=== PATIENT | female | born 1940 | race Caucasian/White ===

== ENCOUNTER → 2021-04-08 10:23 | Outpatient (CLI) | payer MEDICARE, SELFPAY | PROVIDERS: Visit Provider Nurse Practitioner | DX: Z01.812 Encounter for preprocedural laboratory examination (principal); Z11.52 Encounter for screening for COVID-19 | CPT/HCPCS: C9803; U0003; U0005 ==

== ENCOUNTER 2021-04-11 11:21 | Day surgery (SDC) | payer MEDICARE, SELFPAY ==
[2021-04-11] VITALS (7 sets, daily range): BP systolic 148–169; BP diastolic 71–79; PULSE 57–62; RESP 16–20; TEMP 36.5–36.6; O2SAT 98–100; BMI 28.3
== END 2021-04-11 15:20 | disposition home or self-care (01) ==
LOC: OR 11:23
PROVIDERS: PCP Internal Medicine; Visit Provider Ophthalmology
DX: H25.813 Combined forms of age-related cataract, bilateral (principal); H02.831 Dermatochalasis of right upper eyelid; H02.834 Dermatochalasis of left upper eyelid; M19.90 Unspecified osteoarthritis, unspecified site; I25.10 Atherosclerotic heart disease of native coronary artery without angina pectoris; I10 Essential (primary) hypertension; E78.5 Hyperlipidemia, unspecified; Z88.1 Allergy status to other antibiotic agents; Z80.9 Family history of malignant neoplasm, unspecified; Z83.3 Family history of diabetes mellitus; Z82.49 Family history of ischemic heart disease and other diseases of the circulatory system; Z83.518 Family history of other specified eye disorder
CPT/HCPCS: 66984; V2632

== ENCOUNTER → 2021-04-25 11:17 | Outpatient (CLI) | payer MEDICARE, SELFPAY ==
--- NOTE | 2021-04-25 11:25 | XR_ITS ---
FINAL REPORT CLINICAL HISTORY: LUMBAR RADICULOPATHY, lower back pain, pain down left leg FINDINGS: LUMBAR SPINE SERIES Seven views demonstrate no fracture. There is 8 mm of anterolisthesis of L3 on 4. There is 4 mm of anterolisthesis of L4 on 5. Mild and moderate degenerative changes are present. There is vacuum phenomenon at L5-S1. There is no abnormal movement with flexion and extension maneuvers. There are postoperative changes in the abdomen and pelvis. IMPRESSION: Multilevel degenerative change as detailed above. Reviewed, Interpreted and Dictated by Gil Dubon III, MD Transcribed by Lou Nair Authenticated by Gil Dubon III, MD on 04/25/2021 01:46:38 PM [facility][1]
[2021-04-25 12:31] LABS: Basophils % 0.9 % (0.1-2.0); Eosinophils # 0.3 K/mm3 (0.0-0.4); Eosinophils % 7.3 % (0.1-12.0); Hematocrit 36.3 % (37.0-47.0); Hemoglobin 12.1 g/dL (12.2-16.2); Lymphocytes # 1.5 K/mm3 (0.7-4.5); Lymphocytes % 35.4 % (10-50); Mean Corpuscular HGB Conc 33.2 g/dL (31.8-35.4); Mean Corpuscular Hemoglobin 33.9 pg (27.0-31.2); Mean Corpuscular Volume 101.8 fl (81-99); Mean Platelet Volume 10.1 fl (7.4-10.4); Monocytes # 0.5 K/mm3 (0.1-1.0); Monocytes % 11.1 % (1.7-9.3); Neutrophils # 1.9 K/mm3 (1.8-7.8); Neutrophils % 45.3 % (37.0-80.0); Platelet Count 172 K/mm3 (142-424); Red Blood Count 3.57 M/mm3 (4.20-5.40); Red Cell Distribution Width 16.9 % (11.5-17.5); White Blood Count 4.3 K/mm3 (4.8-10.8)
[2021-04-25 13:10] LABS: Alanine Aminotransferase 21 U/L (12-78); Albumin Level 3.8 g/dl (3.5-5.0); Albumin/Globulin Ratio 1.8 (1.1-1.8); Alkaline Phosphatase 43 U/L (38-126); Anion Gap 8.1 mEq/L (5-15); Aspartate Amino Transferase 33 U/L (14-36); Bilirubin,Total 0.5 mg/dl (0.2-1.3); Blood Urea Nitrogen 21 mg/dl (7-17); Calcium 8.9 mg/dl (8.4-10.2); Carbon Dioxide 30 mmol/L (22.0-30.0); Chloride 105 mmol/L (98-107); Estimated Glomerular Filt Rate 60 ml/min (>60); GFR (African American) 73 ML/MIN (>60); Globulin 2.1 g/dL (1.3-3.2); Glucose 79 mg/dl (74-100); Potassium 4.1 mmoL/L (3.5-5.1); Sodium 139 mmol/L (136-145); Total Protein,Serum 5.9 g/dl (6.3-8.2)
[2021-04-25 13:15] LABS: C-Reactive Protein 1.5 mg/L (0-4)
[2021-04-25 13:30] LABS: Erythrocyte Sedimentation Rate 18 mm/hr (0-30)
== END ==
PROVIDERS: PCP Internal Medicine; Visit Provider Nurse Practitioner Family
DX: I73.00 Raynaud's syndrome without gangrene (principal); L40.50 Arthropathic psoriasis, unspecified; M19.049 Primary osteoarthritis, unspecified hand; M54.16 Radiculopathy, lumbar region
CPT/HCPCS: 36415; 72114; 80053; 85025; 85651; 86140

== ENCOUNTER → 2021-05-06 11:42 | Outpatient (CLI) | payer MEDICARE, SELFPAY | PROVIDERS: PCP Internal Medicine; Visit Provider Internal Medicine | DX: Z01.812 Encounter for preprocedural laboratory examination (principal); Z11.52 Encounter for screening for COVID-19 | CPT/HCPCS: C9803; U0003; U0005 ==

== ENCOUNTER 2021-05-09 07:58 | Day surgery (SDC) | payer MEDICARE, SELFPAY ==
[2021-05-03 10:32] VITALS: BMI 28.3
[2021-05-09 08:27] VITALS: BP 173/86; PULSE 65; RESP 18; TEMP 36.5; O2SAT 94
[2021-05-09 09:20] VITALS: BP 186/81; PULSE 61; RESP 16; O2SAT 97
[2021-05-09 09:25] VITALS: BP 193/84; PULSE 58; RESP 16; O2SAT 100
[2021-05-09 09:30] VITALS: BP 196/84; PULSE 58; RESP 16; O2SAT 100
[2021-05-09 09:35] VITALS: BP 140/80; PULSE 64; RESP 16; TEMP 36.2; O2SAT 97
[2021-05-09 09:55] VITALS: BP 140/80; PULSE 64; RESP 16; TEMP 36.2; O2SAT 97
== END 2021-05-09 09:55 | disposition home or self-care (01) ==
LOC: OR 07:59
PROVIDERS: PCP Internal Medicine; Visit Provider Ophthalmology
DX: H25.813 Combined forms of age-related cataract, bilateral (principal); H02.831 Dermatochalasis of right upper eyelid; H02.834 Dermatochalasis of left upper eyelid; M19.90 Unspecified osteoarthritis, unspecified site; I25.10 Atherosclerotic heart disease of native coronary artery without angina pectoris; E78.5 Hyperlipidemia, unspecified; Z88.8 Allergy status to other drugs, medicaments and biological substances
CPT/HCPCS: 66984; V2632; V2788

== ENCOUNTER → 2021-08-14 12:55 | Outpatient (CLI) | payer MEDICARE, SELFPAY ==
[2021-08-14 13:15] LABS: Basophils % 1.2 % (0.1-2.0); Eosinophils # 0.2 K/mm3 (0.0-0.4); Eosinophils % 5.6 % (0.1-12.0); Hematocrit 42.1 % (37.0-47.0); Hemoglobin 12.9 g/dL (12.2-16.2); Lymphocytes # 1.2 K/mm3 (0.7-4.5); Mean Corpuscular HGB Conc 30.8 g/dL (31.8-35.4); Mean Corpuscular Hemoglobin 34.1 pg (27.0-31.2); Mean Corpuscular Volume 110.9 fl (81-99); Mean Platelet Volume 10.5 fl (7.4-10.4); Monocytes # 0.1 K/mm3 (0.1-1.0); Monocytes % 3.8 % (1.7-9.3); Neutrophils # 1.8 K/mm3 (1.8-7.8); Neutrophils % 53.4 % (37.0-80.0); Platelet Count 214 K/mm3 (142-424); Red Cell Distribution Width 15.6 % (11.5-17.5); White Blood Count 3.4 K/mm3 (4.8-10.8)
[2021-08-14 13:41] LABS: Alanine Aminotransferase 36 U/L (12-78); Albumin Level 4.1 g/dl (3.5-5.0); Albumin/Globulin Ratio 1.8 (1.1-1.8); Alkaline Phosphatase 57 U/L (38-126); Anion Gap 10.4 mEq/L (5-15); Aspartate Amino Transferase 63 U/L (14-36); Bilirubin,Total 0.7 mg/dl (0.2-1.3); Blood Urea Nitrogen 15 mg/dl (7-17); Calcium 9.8 mg/dl (8.4-10.2); Carbon Dioxide 29 mmol/L (22.0-30.0); Chloride 105 mmol/L (98-107); Estimated Glomerular Filt Rate 60 ml/min (>60); GFR (African American) 73 ML/MIN (>60); Globulin 2.3 g/dL (1.3-3.2); Glucose 86 mg/dl (74-100); Potassium 4.4 mmoL/L (3.5-5.1); Sodium 140 mmol/L (136-145); Total Protein,Serum 6.4 g/dl (6.3-8.2)
[2021-08-14 13:46] LABS: C-Reactive Protein 2.7 mg/L (0-4)
[2021-08-14 14:22] LABS: Erythrocyte Sedimentation Rate 16 mm/hr (0-30)
== END ==
PROVIDERS: PCP Internal Medicine; Visit Provider Internal Medicine Rheumatology
DX: L40.50 Arthropathic psoriasis, unspecified (principal); I73.00 Raynaud's syndrome without gangrene; M19.049 Primary osteoarthritis, unspecified hand; M25.552 Pain in left hip; M47.816 Spondylosis without myelopathy or radiculopathy, lumbar region
CPT/HCPCS: 36415; 80053; 85025; 85651; 86140

== ENCOUNTER → 2021-11-15 12:51 | Outpatient (CLI) | payer MEDICARE, SELFPAY ==
--- NOTE | 2021-11-15 13:00 | CA_ITS ---
FINAL REPORT TECHNIQUE: Grayscale and color Doppler ultrasound images with graded compression of the deep venous system were obtained from the groin to the calf veins bilaterally. CLINICAL HISTORY: HX DVT,PAIN,LUMP LATERAL LEFT THIGH X SEVERAL MONTHS HAS GOTTEN LARGER IN SIZE(EGG SIZE NOW),TENDER,PT ON ASA FINDINGS: The deep venous system is normal. There is no evidence of DVT. Flow and compressibility are normal. There is a questionable mass in the lateral mid left thigh measuring up to 5 cm with poorly defined margins. IMPRESSION: No evidence of left or right lower extremity DVT. Questionable mass as detailed above. If lesion is persistent clinically, MR follow-up with contrast enhancement could further evaluate. Reviewed, Interpreted and Dictated by Sreekanth Sanchez MD Transcribed by Lou Nair Authenticated and [facility]
[2021-11-15 14:17] LABS: Basophils # 0.1 K/mm3 (0-0.2); Basophils % 0.9 % (0.1-2.0); Eosinophils # 0.3 K/mm3 (0.0-0.4); Eosinophils % 5.9 % (0.1-12.0); Hematocrit 38.6 % (37.0-47.0); Hemoglobin 12.2 g/dL (12.2-16.2); Lymphocytes # 1.4 K/mm3 (0.7-4.5); Lymphocytes % 26.2 % (10-50); Mean Corpuscular HGB Conc 31.7 g/dL (31.8-35.4); Mean Corpuscular Hemoglobin 32.9 pg (27.0-31.2); Mean Platelet Volume 9.6 fl (7.4-10.4); Monocytes # 0.3 K/mm3 (0.1-1.0); Neutrophils # 3.2 K/mm3 (1.8-7.8); Platelet Count 192 K/mm3 (142-424); Red Blood Count 3.71 M/mm3 (4.20-5.40); Red Cell Distribution Width 16.3 % (11.5-17.5); White Blood Count 5.3 K/mm3 (4.8-10.8)
[2021-11-15 14:44] LABS: Erythrocyte Sedimentation Rate 19 mm/hr (0-30)
[2021-11-15 15:06] LABS: Alanine Aminotransferase 29 U/L (12-78); Albumin Level 3.9 g/dl (3.5-5.0); Albumin/Globulin Ratio 1.8 (1.1-1.8); Alkaline Phosphatase 64 U/L (38-126); Aspartate Amino Transferase 41 U/L (14-36); Bilirubin,Total 0.4 mg/dl (0.2-1.3); Blood Urea Nitrogen 16 mg/dl (7-17); Calcium 8.9 mg/dl (8.4-10.2); Carbon Dioxide 30 mmol/L (22.0-30.0); Chloride 102 mmol/L (98-107); Estimated Glomerular Filt Rate 60 ml/min (>60); GFR (African American) 73 ML/MIN (>60); Globulin 2.2 g/dL (1.3-3.2); Glucose 82 mg/dl (74-100); Sodium 139 mmol/L (136-145); Total Protein,Serum 6.1 g/dl (6.3-8.2)
[2021-11-15 15:11] LABS: C-Reactive Protein 3.5 mg/L (0-4)
== END ==
PROVIDERS: PCP Nurse Practitioner Women's Health; Visit Provider Neurological Surgery
DX: R22.42 Localized swelling, mass and lump, left lower limb (principal); Z86.718 Personal history of other venous thrombosis and embolism
CPT/HCPCS: 36415; 80053; 85025; 85651; 86140; 93970

== ENCOUNTER → 2022-01-31 13:24 | Outpatient (CLI) | payer MEDICARE, SELFPAY ==
--- NOTE | 2022-01-31 13:25 | MR_ITS ---
FINAL REPORT CLINICAL HISTORY: L Hip Pain FINDINGS: Multiplanar MR imaging of the left hip was performed without contrast. There is mild degenerative change of both hips. There is no evidence of fracture or dislocation. There is no evidence of avascular necrosis. No bony mass is identified. No labral tear is identified. No significant joint effusion is seen. There is a small partial tear of the distal left gluteus minimus tendon. There are moderate partial tears at the origins of the hamstring tendons bilaterally. The musculature is intact. No soft tissue mass or cyst is identified. IMPRESSION: Small partial tear of the distal left gluteus minimus tendon. Moderate partial tears the origins of the hamstring tendons bilaterally. Reviewed, Interpreted and Dictated by Gil Dubon III, MD Transcribed by Mela Barakat Authenticated and . [facility]
== END ==
PROVIDERS: PCP Family Medicine; Visit Provider Family Medicine
DX: M25.552 Pain in left hip (principal)
CPT/HCPCS: 73721

== ENCOUNTER → 2022-03-29 13:28 | Outpatient (CLI) | payer MEDICARE, SELFPAY ==
[2022-03-29 15:33] LABS: Alanine Aminotransferase 17 U/L (12-78); Albumin/Globulin Ratio 1.7 (1.1-1.8); Alkaline Phosphatase 54 U/L (38-126); Anion Gap 10.4 mEq/L (5-15); Aspartate Amino Transferase 30 U/L (14-36); Bilirubin,Total 0.4 mg/dl (0.2-1.3); Blood Urea Nitrogen 20 mg/dl (7-17); Calcium 8.3 mg/dl (8.4-10.2); Carbon Dioxide 27 mmol/L (22.0-30.0); Chloride 108 mmol/L (98-107); Estimated Glomerular Filt Rate 48 ml/min (>60); GFR (African American) 58 ML/MIN (>60); Globulin 2.4 g/dL (1.3-3.2); Glucose 85 mg/dl (74-100); Potassium 4.4 mmoL/L (3.5-5.1); Sodium 141 mmol/L (136-145); Total Protein,Serum 6.4 g/dl (6.3-8.2)
== END ==
PROVIDERS: PCP Family Medicine; Visit Provider Internal Medicine Rheumatology
DX: L40.50 Arthropathic psoriasis, unspecified (principal); M19.049 Primary osteoarthritis, unspecified hand; E66.9 Obesity, unspecified; Z68.33 Body mass index [BMI] 33.0-33.9, adult; Z79.899 Other long term (current) drug therapy
CPT/HCPCS: 36415; 80053

== ENCOUNTER → 2022-11-22 12:28 | Outpatient (CLI) | payer MEDICARE, SELFPAY ==
[2022-11-22 13:31] LABS: Basophils % 0.6 % (0.1-2.0); Eosinophils # 0.5 K/mm3 (0.0-0.4); Eosinophils % 11.3 % (0.1-12.0); Hematocrit 34.7 % (37.0-47.0); Hemoglobin 11.2 g/dL (12.2-16.2); Lymphocytes # 1.2 K/mm3 (0.7-4.5); Lymphocytes % 29.9 % (10-50); Mean Corpuscular HGB Conc 32.4 g/dL (31.8-35.4); Mean Corpuscular Hemoglobin 32.8 pg (27.0-31.2); Mean Corpuscular Volume 101.3 fl (81-99); Mean Platelet Volume 10.3 fl (7.4-10.4); Monocytes # 0.5 K/mm3 (0.1-1.0); Monocytes % 13.1 % (1.7-9.3); Neutrophils # 1.9 K/mm3 (1.8-7.8); Platelet Count 192 K/mm3 (142-424); Red Blood Count 3.43 M/mm3 (4.20-5.40); Red Cell Distribution Width 17.8 % (11.5-17.5); White Blood Count 4.1 K/mm3 (4.8-10.8)
[2022-11-22 14:40] LABS: Erythrocyte Sedimentation Rate 59 mm/hr (0-30)
[2022-11-22 18:52] LABS: Alanine Aminotransferase 20 U/L (12-78); Albumin Level 3.7 g/dl (3.5-5.0); Albumin/Globulin Ratio 1.5 (1.1-1.8); Alkaline Phosphatase 48 U/L (38-126); Anion Gap 11.4 mEq/L (5-15); Aspartate Amino Transferase 34 U/L (14-36); Bilirubin,Total 0.4 mg/dl (0.2-1.3); Blood Urea Nitrogen 17 mg/dl (7-17); Carbon Dioxide 27 mmol/L (22.0-30.0); Chloride 109 mmol/L (98-107); Estimated Glomerular Filt Rate 60 ml/min (>60); GFR (African American) 72 ML/MIN (>60); Globulin 2.5 g/dL (1.3-3.2); Glucose 77 mg/dl (74-100); Potassium 4.4 mmoL/L (3.5-5.1); Sodium 143 mmol/L (136-145); Total Protein,Serum 6.2 g/dl (6.3-8.2)
[2022-11-24 09:57] LABS: C-Reactive Protein 11.3 mg/L (0-4)
== END ==
PROVIDERS: Nurse Practitioner Family
DX: L40.50 Arthropathic psoriasis, unspecified (principal); Z79.899 Other long term (current) drug therapy
CPT/HCPCS: 36415; 80053; 85025; 85651; 86140

== ENCOUNTER 2023-03-18 12:48 | Outpatient (CLI) | payer MEDICARE, SELFPAY | END 2023-03-18 23:59 | LOC: LAB.DROPOF 12:48 | PROVIDERS: PCP Nurse Practitioner Family; Visit Provider Nurse Practitioner Family | DX: J02.9 Acute pharyngitis, unspecified; D72.819 Decreased white blood cell count, unspecified | CPT/HCPCS: 87070 ==

== ENCOUNTER 2023-03-19 13:16 | Outpatient (POV) | payer MEDICARE, SELFPAY | END 2023-03-19 23:59 | disposition home or self-care (01) | LOC: SC 13:16 | PROVIDERS: PCP Nurse Practitioner Family; Visit Provider Dermatology | DX: Z00.00 Encounter for general adult medical examination without abnormal findings (principal) ==

== ENCOUNTER 2023-03-19 13:53 | Outpatient (CLI) | payer MEDICARE, SELFPAY ==
[2023-03-19 14:54] LABS: Chloride 106 mmol/L (98-107); Potassium 4.6 mmoL/L (3.5-5.1); Sodium 139 mmol/L (136-145)
[2023-03-19 14:56] LABS: Alanine Aminotransferase 111 U/L (12-78); Aspartate Amino Transferase 113 U/L (14-36); Blood Urea Nitrogen 29 mg/dl (7-17); Estimated Glomerular Filt Rate 47 ml/min (>60); GFR (African American) 57 ML/MIN (>60)
[2023-03-19 14:57] LABS: Albumin Level 4.2 g/dl (3.5-5.0); Albumin/Globulin Ratio 1.7 (1.1-1.8); Alkaline Phosphatase 61 U/L (38-126); Anion Gap 12.6 mEq/L (5-15); Bilirubin,Total 0.7 mg/dl (0.2-1.3); Calcium 9.1 mg/dl (8.4-10.2); Carbon Dioxide 25 mmol/L (22.0-30.0); Globulin 2.5 g/dL (1.3-3.2); Glucose 91 mg/dl (74-100); Total Protein,Serum 6.7 g/dl (6.3-8.2)
[2023-03-19 15:28] LABS: Thyroid Stimulating Hormone 1.05 uIU/mL (0.465-4.68)
[2023-03-19 15:33] LABS: Ferritin 189 ng/ml (11.1-264)
[2023-03-21 13:58] LABS: Peripheral Smear Review Scanned Result
== END 2023-03-19 23:59 ==
LOC: LAB 13:55
PROVIDERS: PCP Nurse Practitioner Family; Visit Provider Nurse Practitioner Family
DX: E78.5 Hyperlipidemia, unspecified (principal); D72.819 Decreased white blood cell count, unspecified; L98.9 Disorder of the skin and subcutaneous tissue, unspecified; D50.9 Iron deficiency anemia, unspecified; I10 Essential (primary) hypertension
CPT/HCPCS: 36415; 80053; 82728; 84443

== ENCOUNTER 2023-04-02 16:13 | Outpatient (CLI) | payer MEDICARE, SELFPAY ==
[2023-04-02 17:42] LABS: Alanine Aminotransferase 115 U/L (12-78); Albumin Level 3.9 g/dl (3.5-5.0); Albumin/Globulin Ratio 1.6 (1.1-1.8); Alkaline Phosphatase 53 U/L (38-126); Anion Gap 14.2 mEq/L (5-15); Aspartate Amino Transferase 95 U/L (14-36); Bilirubin,Total 0.5 mg/dl (0.2-1.3); Blood Urea Nitrogen 45 mg/dl (7-17); Calcium 9.9 mg/dl (8.4-10.2); Carbon Dioxide 20 mmol/L (22.0-30.0); Chloride 109 mmol/L (98-107); Estimated Glomerular Filt Rate 36 ml/min (>60); GFR (African American) 43 ML/MIN (>60); Globulin 2.4 g/dL (1.3-3.2); Glucose 115 mg/dl (74-100); Potassium 4.2 mmoL/L (3.5-5.1); Sodium 139 mmol/L (136-145); Total Protein,Serum 6.3 g/dl (6.3-8.2)
[2023-04-02 17:57] LABS: Troponin I < 0.01 ng/ml (0.00-0.034)
[2023-04-02 19:13] LABS: Ferritin 151 ng/ml (11.1-264)
[2023-04-02 20:17] LABS: Vitamin B12 850 pg/mL (239-931)
[2023-04-04 16:23] LABS: Peripheral Smear Review Scanned Result
== END 2023-04-02 23:59 ==
PROVIDERS: PCP Nurse Practitioner Family; Visit Provider Nurse Practitioner Family
DX: R74.8 Abnormal levels of other serum enzymes (principal); D50.9 Iron deficiency anemia, unspecified; D64.9 Anemia, unspecified; D72.819 Decreased white blood cell count, unspecified; R06.02 Shortness of breath; Z95.1 Presence of aortocoronary bypass graft
CPT/HCPCS: 36415; 80053; 82607; 82728; 84484

== ENCOUNTER 2023-04-14 13:17 | Emergency (ER) | payer MEDICARE, SELFPAY ==
[2023-04-14 13:17] VITALS: BP 187/88; PULSE 89; RESP 22; TEMP 36.7; O2SAT 97; BMI 26.5
[2023-04-14 13:30] VITALS: BP 187/88; PULSE 95; RESP 16; O2SAT 97
[2023-04-14] MEDS: OXYMETAZOLINE NASAL SPRAY 0.05% 15ML 15 ML NS (13:40)
[2023-04-14 14:00] VITALS: BP 168/95; PULSE 88; RESP 16; O2SAT 98
--- NOTE | 2023-04-14 14:13 | PC.NURSE ---
Dr. Sr at bedside
[2023-04-14 14:30] VITALS: BP 184/94; PULSE 84; RESP 16; O2SAT 97
--- NOTE | 2023-04-14 14:34 | PC.NURSE ---
DR PAN AT BEDSIDE
[2023-04-14] MEDS: TRANEXAMIC ACID 1,000 MG/10 ML VIAL 10 MG TP (14:45)
[2023-04-14 15:00] VITALS: BP 193/86; PULSE 85; RESP 16; O2SAT 98
--- NOTE | 2023-04-14 15:07 | ED_ITS ---
Discharge Plan Disposition Patient Disposition: Home, Self-Care Condition: Good Prescriptions Prescriptions: No Action methotrexate sodium 2.5 mg tablet 2.5 mg PO WEEKLY Rx Instructions: Pt to take 8 tablets at one time weekly. trazodone 100 mg tablet 100 mg PO DAILY PRN (Reason: insomnia) Qty: 30 2RF cetirizine [Allergy Relief (cetirizine)] 10 mg tablet 10 mg PO DAILY PRN folic acid 1 mg tablet 1 mg PO .qod metoprolol tartrate 50 mg tablet 25 mg PO BID metronidazole 0.75 % cream topical DAILY Pro Fe 180 mg iron capsule 180 mg PO DAILY Qty: 30 0RF pregabalin 50 mg capsule 50 mg PO DAILY triamcinolone acetonide 0.5 % cream topical Vyndamax 61 mg capsule 61 mg PO DAILY mupirocin 2 % ointment 1 applic topical BID Qty: 15 0RF clopidogrel 75 mg tablet 75 mg PO DAILY fluorometholone 0.1 % drops,suspension 1 drp ophthalmic (eye) Q6H Systane Hydration (PF) 0.4-0.3 % dropperette 1 drp ophthalmic (eye) DAILY PRN pantoprazole 40 mg tablet,delayed release (DR/EC) 40 mg PO DAILY Qty: 90 3RF diltiazem HCl 180 mg capsule,extended release 24hr 180 mg PO DAILY 90 Days Qty: 90 3RF atorvastatin 40 mg tablet 40 mg PO HS Qty: 90 3RF nystatin 100,000 unit/mL suspension 500,000 unit buccal Q6H 14 Days Qty: 280 0RF Rx Instructions: administer 1/2 of dose in each side of the mouth acyclovir 400 mg tablet 400 mg PO TID 10 Days Qty: 30 0RF multivitamin 1 EACH tablet 1 each PO DAILY diclofenac sodium 100 GM gel 100 g topical DAILY calcium carbonate 600 MG tablet 600 mg PO DAILY docusate sodium 100 MG capsule 100 mg PO DAILY aspirin 81 MG tablet,chewable 81 mg PO DAILY cholecalciferol (vitamin D3) 1,000 UNIT capsule 1,000 unit PO DAILY magnesium oxide 500 MG capsule 500 mg PO DAILY denosumab 60 MG/ML syringe 60 mg SQ DAILY Referrals Follow up/Referrals: Geeta Esteban APRN [Primary Care Provider] - See instructions Gino Upton MD [Physician] - See instructions Activity Restrictions/Add. Instructions Additional Instructions/Restrictions: Follow-up with ENT to have the nasal balloon removed by Saturday. Return for any new or worsening symptoms. Clinical Impressions Clinical Impression: Acute anterior epistaxis Instructions Patient Instructions: DI for Nosebleed Discharge ED Provider: Marisel Sr General Adult HPI General Chief complaint: Epistaxis Stated complaint: bloody nose X3 hours Time Seen by Provider: 04/14/23 13:39 Mode of Arrival: Wheelchair Source of Information: Patient, Relative and Medical Record Limitations: No Limitations Description of Symptoms (Recalled from ER Triage Doc. by RN): Pt c/o nose bleed intermittently for 3 hours. She takes ASA 81mg & Plavix 75mg daily, last dose was yesterday (04/13). She has been holding pressure to her nose for a long time but it continues to ooze. States she has a hx of nasal polys. Denies any dizziness. History of Present Illness HPI narrative: Patient is a 82-year-old female with past medical history anemia, hypertension, hyperlipidemia, GERD, CABG on Plavix and aspirin presenting with epistaxis. Patient states that for the past 3 hours she has had intermittent epistaxis from her left nostril that they have intermittently been able to control but given persistent epistaxis refractory to home management they present for further evaluation. She last took Plavix and aspirin last night. She does have a nasal polyp in that left nostril for which she follows with [facility]. Denies other complaints at this time. Related Data Home Medications Medication Instructions Recorded Confirmed aspirin 81 mg chewable tablet 81 mg PO DAILY supplemnt 04/11/21 04/02/23 calcium carbonate 600 mg calcium 600 mg PO DAILY Supplement 04/11/21 04/02/23 (1,500 mg) tablet cholecalciferol (vitamin D3) 25 1,000 unit PO DAILY Supplement 04/11/21 04/02/23 mcg (1,000 unit) capsule denosumab 60 mg/mL subcutaneous 60 mg SQ DAILY . 04/11/21 04/02/23 syringe diclofenac sodium 3 % topical gel 100 g topical DAILY Pain 04/11/21 04/02/23 docusate sodium 100 mg capsule 100 mg PO DAILY stool 04/11/21 04/02/23 magnesium oxide 500 mg capsule 500 mg PO DAILY Supplement 04/11/21 04/02/23 multivitamin 1 each PO DAILY Supplement 04/11/21 04/02/23 methotrexate sodium 2.5 mg tablet 2.5 mg PO WEEKLY 01/22/22 04/02/23 cetirizine 10 mg tablet (Allergy 10 mg PO DAILY PRN 07/19/22 04/02/23 Relief (cetirizine)) pregabalin 50 mg capsule 50 mg PO DAILY 01/21/23 04/02/23 tafamidis 61 mg capsule (Vyndamax) 61 mg PO DAILY 01/21/23 04/02/23 triamcinolone acetonide 0.5 % applic topical 01/21/23 04/02/23 topical cream clopidogrel 75 mg tablet 75 mg PO DAILY 03/18/23 04/02/23 fluorometholone 0.1 % eye 1 drp ophthalmic (eye) Q6H 03/18/23 04/02/23 drops,suspension peg 400-propylene glycol (PF) 0.4 1 drp ophthalmic (eye) DAILY PRN 03/18/23 04/02/23 %-0.3 % eye drops in a dropperette (Systane Hydration (PF)) folic acid 1 mg tablet 1 mg PO .qod Supplement 04/02/23 04/02/23 metoprolol tartrate 50 mg tablet 25 mg PO BID 04/02/23 04/02/23 metronidazole 0.75 % topical cream applic topical DAILY 04/02/23 04/02/23 Previous Rx's Medication Instructions Recorded trazodone 100 mg tablet 100 mg PO DAILY PRN insomnia #30 01/22/22 tabs atorvastatin 40 mg tablet 40 mg PO HS Cholesterol #90 tabs 08/30/22 diltiazem HCl 180 mg 180 mg PO DAILY 90 days #90 caps 08/30/22 capsule,extended release 24 hr pantoprazole 40 mg tablet,delayed 40 mg PO DAILY GERD #90 tabs 08/30/22 release mupirocin 2 % topical ointment 1 applic topical BID #15 grams 01/21/23 acyclovir 400 mg tablet 400 mg PO TID 10 days #30 tabs 04/05/23 nystatin 100,000 unit/mL oral 500,000 unit (5 mL) buccal Q6H 14 04/05/23 suspension days #280 mL polysaccharide iron complex 180 mg 180 mg PO DAILY #30 caps 04/07/23 iron capsule (Pro Fe) Allergies Allergy/AdvReac Type Severity Reaction Status Date / Time loratadine [From Claritin] Allergy Intermediate Rash Verified 04/14/23 13:38 Sulfa (Sulfonamide Allergy Intermediate rash/swelli Verified 04/14/23 13:38 Antibiotics) ng sulfamethoxazole Allergy Intermediate rash/swelli Verified 04/14/23 13:38 [From Bactrim] ng trimethoprim [From Bactrim] Allergy Intermediate rash/swelli Verified 04/14/23 13:38 ng nitrofurantoin AdvReac Hives Verified 04/02/23 15:24 [From Macrobid] [facility] Disclaimer: The information contained in this section may have been updated after the patient was seen, as this information can be updated by other users. Medical History Amyloidosis Degenerative disc disease GERD (gastroesophageal reflux disease) HLD (hyperlipidemia) HTN (hypertension), benign Neuropathy Osteoporosis Surgical History H/O total hysterectomy History of cholecystectomy History of discectomy 2022 History of open heart surgery 2009 Family History Other Cancer Coronary artery disease Heart attack Hypertension Social History Smoking Status: Never smoker alcohol intake: never current occupational status: retired Travel in the last 8 weeks: None housing: house caffeine: Yes ROS Obtained: Yes Systems reviewed as appropriate & no additional complaints except as documented Physical Exam General General appearance: alert and in no apparent distress Head Head exam: atraumatic and normocephalic ENT ENT exam: Present other (Bleeding from left nostril, not appreciated from right nostril, does have polyp visible in the anterior nose of the left nostril, some bleeding down posterior oropharynx) Neck Neck exam: Present normal inspection Chest Chest inspection: Present normal inspection and symmetric chest wall rise Respiratory Respiratory exam: Present normal lung sounds bilaterally; Absent respiratory distress Cardiovascular Cardiovascular exam: Present regular rate and normal rhythm Neurological Exam Neurological exam: Present alert and oriented X3 Skin Skin exam: Present warm and dry Medical Decision Making Medical Records Medical records reviewed: Yes I reviewed the patient's medical records. Davion Inquiry Pt receiving controlled substance: No Vital Signs: 04/14/23 13:17 Temperature 98.1 F Temperature Source Oral Pulse Rate [Right] 89 Respiratory Rate 22 Blood Pressure [Right Arm] 187/88 H Blood Pressure Mean [Right Arm] 121 Blood Pressure Source [Right Arm] Automatic Cuff 02 Sat by Pulse Oximetry 97 Oxygen Delivery Method Room Air Orders (Tests/Meds): ED MEDICATIONS Discontinued Medications Generic Name Dose Route Start Last Admin Trade Name Mila PRN Reason Stop Dose Admin Tranexamic Acid 5 mg/ Sodium 250.05 mls @ 500.1 mls/hr 04/14/23 14:38 04/14/23 14:42 Chloride IV 04/14/23 14:39 Not Given ONCE ONE Oxymetazoline HCl 15 ml 04/14/23 13:39 04/14/23 13:40 Oxymetazoline Nasal [place] 0.05% 15ml NS 04/14/23 13:40 15 ml ONCE ONE Administration Tranexamic Acid 10 mg 04/14/23 14:45 Tranexamic Acid 1,000 Mg/10 Ml Vial TP 04/14/23 14:46 ONCE ONE Medical Decision Narrative: Patient is a 82-year-old female with past medical history hyperlipidemia, hypertension, CAD, CABG on Plavix and aspirin presenting with epistaxis from the left nare over the past 3 hours intermittent. No difficulty breathing or managing secretions but does have visible bleeding from the left nostril. Did attempt to provide Afrin and clamp for 20 minutes and on reevaluation patient had continued bleeding. Given this Rhino Rocket placed as per procedural documentation after it was soaked in TXA and Afrin. There was good resolution of patient bleeding and no visualized bleeding in the posterior oropharynx. Discussed follow-up plan with patient and daughter at bedside and she does already follow with an ENT provider at [facility], will try to follow-up with this provider but if unable to will also provide need for ENT follow-up with Dr. Upton. Will follow-up Saturday to have Rhino Rocket removed. Discharged in stable condition. Procedures Epistaxis Control Nostril: left Nose Prepped With: oxymetazoline and other Direct Inspection: yes Clots Removed by: manually Cautery Used: none Device Inserted: hemostatic balloon Patient Tolerated Procedure: well Critical Care Critical Care Time Critical Care Time: No
--- NOTE | 2023-04-14 15:12 | PC.NURSE ---
Dr. Sr at bedside
[2023-04-14 15:37] VITALS: BP 188/86; PULSE 81; RESP 20; TEMP 36.7; O2SAT 98
== END 2023-04-14 15:35 | disposition home or self-care (01) ==
PROVIDERS: Emergency Provider Emergency Medicine; PCP Nurse Practitioner Family
DX: R04.0 Epistaxis (principal); D64.9 Anemia, unspecified; I10 Essential (primary) hypertension; E78.5 Hyperlipidemia, unspecified; K21.9 Gastro-esophageal reflux disease without esophagitis; G62.9 Polyneuropathy, unspecified; Z79.02 Long term (current) use of antithrombotics/antiplatelets; Z79.82 Long term (current) use of aspirin
CPT/HCPCS: 30901; 99283

== ENCOUNTER 2023-04-16 13:44 | Outpatient (CLI) | payer MEDICARE, SELFPAY ==
[2023-04-16 14:25] LABS: Alanine Aminotransferase 162 U/L (12-78); Albumin Level 3.6 g/dl (3.5-5.0); Albumin/Globulin Ratio 1.6 (1.1-1.8); Alkaline Phosphatase 59 U/L (38-126); Anion Gap 9.1 mEq/L (5-15); Aspartate Amino Transferase 146 U/L (14-36); Bilirubin,Total 0.5 mg/dl (0.2-1.3); Blood Urea Nitrogen 21 mg/dl (7-17); Calcium 7.8 mg/dl (8.4-10.2); Carbon Dioxide 23 mmol/L (22.0-30.0); Chloride 114 mmol/L (98-107); Estimated Glomerular Filt Rate 53 ml/min (>60); GFR (African American) 64 ML/MIN (>60); Globulin 2.3 g/dL (1.3-3.2); Glucose 89 mg/dl (74-100); Potassium 4.1 mmoL/L (3.5-5.1); Sodium 142 mmol/L (136-145); Total Protein,Serum 5.9 g/dl (6.3-8.2)
== END 2023-04-16 23:59 ==
PROVIDERS: PCP Nurse Practitioner Family; Visit Provider Nurse Practitioner Family
DX: R74.8 Abnormal levels of other serum enzymes (principal)
CPT/HCPCS: 36415; 80053

== ENCOUNTER 2023-04-22 16:07 | Outpatient (CLI) | payer MEDICARE, SELFPAY ==
--- NOTE | 2023-04-22 16:11 | XR_ITS ---
PROCEDURE INFORMATION: Exam: XR Left Hip Exam date and time: 04/22/2023 4:30 PM Age: 82 years old Clinical indication: Hip pain; Left hip; Additional info: Left hip pain TECHNIQUE: Imaging protocol: Radiologic exam of the left hip. Views: 2 or 3 views hip with pelvis when performed. COMPARISON: MR HIP LT WO CON 01/31/2022 2:14 PM FINDINGS: Tubes, catheters and devices: Surgical clips overlie the pelvis. Bones/joints: Osteopenia. No evidence of acute fracture or dislocation. Mild degenerative changes of both hips. Posterior spinal fusion of the lower lumbar spine. Soft tissues: Unremarkable. Vasculature: Iliofemoral atherosclerotic calcifications. IMPRESSION: No acute osseous abnormality.
--- NOTE | 2023-04-22 16:28 | XR_ITS ---
PROCEDURE INFORMATION: Exam: XR Left Knee Exam date and time: 04/22/2023 4:30 PM Age: 82 years old Clinical indication: Pain; Knee; Left; Additional info: Left knee pain TECHNIQUE: Imaging protocol: Radiologic exam of the left knee. Views: 3 views. COMPARISON: No prior relevant images. FINDINGS: Bones/joints: Osteopenia. No acute fracture or dislocation. Mild degenerative changes. No joint effusion. Soft tissues: Unremarkable. Vasculature: Atherosclerotic calcifications. IMPRESSION: No acute osseous abnormality.
== END 2023-04-22 23:59 ==
PROVIDERS: PCP Nurse Practitioner Family; Visit Provider Nurse Practitioner Family
DX: M25.562 Pain in left knee (principal); M25.552 Pain in left hip
CPT/HCPCS: 73502; 73562

== ENCOUNTER 2023-05-10 15:01 | Outpatient (CLI) | payer MEDICARE, SELFPAY ==
[2023-05-10 15:55] LABS: INR 1.01 (0.9-1.1); Prothrombin Time 10.9 seconds (10.1-12.5)
[2023-05-10 16:04] LABS: Chloride 109 mmol/L (98-107); Potassium 4.1 mmoL/L (3.5-5.1); Sodium 141 mmol/L (136-145)
[2023-05-10 16:07] LABS: Alanine Aminotransferase 40 U/L (12-78); Albumin Level 4.1 g/dl (3.5-5.0); Albumin/Globulin Ratio 1.9 (1.1-1.8); Alkaline Phosphatase 57 U/L (38-126); Anion Gap 13.1 mEq/L (5-15); Aspartate Amino Transferase 51 U/L (14-36); Bilirubin,Total 0.6 mg/dl (0.2-1.3); Blood Urea Nitrogen 28 mg/dl (7-17); Carbon Dioxide 23 mmol/L (22.0-30.0); Estimated Glomerular Filt Rate 53 ml/min (>60); GFR (African American) 64 ML/MIN (>60); Globulin 2.2 g/dL (1.3-3.2); Total Protein,Serum 6.3 g/dl (6.3-8.2)
[2023-05-10 16:08] LABS: Calcium 9.5 mg/dl (8.4-10.2); Glucose 89 mg/dl (74-100)
[2023-05-11 06:12] LABS: HBsAg Screen Negative (Negative); HCV Ab Non Reactive (Non Reactive); Hep A Ab, IGM Negative (Negative); Hep B Core Ab, IgM Negative (Negative)
== END 2023-05-10 23:59 ==
PROVIDERS: PCP Nurse Practitioner Family; Visit Provider Nurse Practitioner
DX: R53.83 Other fatigue (principal); R74.8 Abnormal levels of other serum enzymes; D64.9 Anemia, unspecified; E85.9 Amyloidosis, unspecified
CPT/HCPCS: 36415; 80053; 80074; 85610

== ENCOUNTER 2023-05-17 07:48 | Outpatient (CLI) | payer MEDICARE, SELFPAY ==
--- NOTE | 2023-05-17 07:48 | US_ITS ---
FINAL REPORT TECHNIQUE: Ultrasound images of the abdomen was obtained. CLINICAL HISTORY: Elevated LFTs, eval liver and spleen morphology COMPARISON: None FINDINGS: The liver demonstrates a complex septated cyst in the left lobe measuring 16 mm. The gallbladder is not visualized, presumed surgically absent. The common duct is normal. The right kidney measures 10 cm in length and shows an exophytic benign cyst in the upper pole measuring 62 mm. There is no hydronephrosis. The left kidney is poorly visualized. The spleen is normal in size with extensive calcified granulomas. The aorta is normal caliber. The vena cava is unremarkable. IMPRESSION: Hepatic and right renal cysts, no evidence of chronic liver disease or portal hypertension. Reviewed, Interpreted and Dictated by Sreekanth Sanchez MD Transcribed by THIAGO Blake Authenticated and [facility]
[2023-05-17 09:32] LABS: Basophils % 0.5 % (0.1-2.0); Eosinophils # 0.6 K/mm3 (0.0-0.4); Eosinophils % 13.9 % (0.1-12.0); Hematocrit 32.7 % (37.0-47.0); Hemoglobin 10.6 g/dL (12.2-16.2); Lymphocytes # 1.1 K/mm3 (0.7-4.5); Lymphocytes % 26.9 % (10-50); Mean Corpuscular HGB Conc 32.4 g/dL (31.8-35.4); Mean Corpuscular Hemoglobin 36.3 pg (27.0-31.2); Mean Corpuscular Volume 111.9 fl (81-99); Mean Platelet Volume 10.1 fl (7.4-10.4); Monocytes # 0.2 K/mm3 (0.1-1.0); Monocytes % 4.4 % (1.7-9.3); Neutrophils # 2.3 K/mm3 (1.8-7.8); Neutrophils % 54.3 % (37.0-80.0); Platelet Count 80 K/mm3 (142-424); Red Blood Count 2.92 M/mm3 (4.20-5.40); Red Cell Distribution Width 19.1 % (11.5-17.5); White Blood Count 4.2 K/mm3 (4.8-10.8)
[2023-05-17 09:47] LABS: Chloride 113 mmol/L (98-107); Potassium 4.2 mmoL/L (3.5-5.1); Sodium 142 mmol/L (136-145)
[2023-05-17 09:50] LABS: Alanine Aminotransferase 40 U/L (12-78); Albumin Level 3.7 g/dl (3.5-5.0); Albumin/Globulin Ratio 1.7 (1.1-1.8); Alkaline Phosphatase 60 U/L (38-126); Anion Gap 8.2 mEq/L (5-15); Aspartate Amino Transferase 50 U/L (14-36); Bilirubin,Total 0.5 mg/dl (0.2-1.3); Blood Urea Nitrogen 24 mg/dl (7-17); Carbon Dioxide 25 mmol/L (22.0-30.0); Estimated Glomerular Filt Rate 60 ml/min (>60); GFR (African American) 72 ML/MIN (>60); Globulin 2.2 g/dL (1.3-3.2); Total Protein,Serum 5.9 g/dl (6.3-8.2)
[2023-05-17 09:51] LABS: Calcium 8.7 mg/dl (8.4-10.2); Glucose 88 mg/dl (74-100)
[2023-05-17 09:56] LABS: C-Reactive Protein 2.8 mg/L (0-4)
[2023-05-17 10:10] LABS: Erythrocyte Sedimentation Rate 21 mm/hr (0-30)
[2023-05-23 11:33] LABS: Fibrosis Score 0.34; Fibrosis Stage F1-F2
[2023-05-23 11:34] LABS: Alpha 2-Macroglobulins, Qn 222; NASH Grade N3; NASH Score 0.76; Steatosis Grade S1
[2023-05-23 11:35] LABS: Apolipoprotein A-1 119; Bilirubin, Total 0.2; Haptoglobin 71
[2023-05-23 11:36] LABS: ALT (SGPT) P5P 39; AST (SGOT) P5P 41; Cholesterol, Total 107; GGT 17; Triglycerides 93
[2023-05-23 11:37] LABS: Glucose 87
== END 2023-05-17 23:59 ==
PROVIDERS: Nurse Practitioner Family; PCP Nurse Practitioner Family; Visit Provider Nurse Practitioner
DX: D64.9 Anemia, unspecified (principal); R74.8 Abnormal levels of other serum enzymes; E85.9 Amyloidosis, unspecified; L40.50 Arthropathic psoriasis, unspecified; Z51.81 Encounter for therapeutic drug level monitoring; Z79.899 Other long term (current) drug therapy
CPT/HCPCS: 36415; 76700; 80053; 85025; 85651; 86140

== ENCOUNTER 2023-09-13 16:39 | Outpatient (CLI) | payer MEDICARE, SELFPAY ==
[2023-09-13 17:37] LABS: Alanine Aminotransferase 28 U/L (12-78); Albumin Level 3.6 g/dl (3.5-5.0); Albumin/Globulin Ratio 1.5 (1.1-1.8); Alkaline Phosphatase 46 U/L (38-126); Aspartate Amino Transferase 55 U/L (14-36); Bilirubin,Total 0.6 mg/dl (0.2-1.3); Blood Urea Nitrogen 21 mg/dl (7-17); Calcium 9.5 mg/dl (8.4-10.2); Carbon Dioxide 26 mmol/L (22.0-30.0); Chloride 108 mmol/L (98-107); Estimated Glomerular Filt Rate 60 ml/min (>60); GFR (African American) 72 ML/MIN (>60); Globulin 2.4 g/dL (1.3-3.2); Glucose 87 mg/dl (74-100); Sodium 139 mmol/L (136-145)
[2023-09-13 18:08] LABS: 25-OH Vitamin D, Total 120 ng/mL (30-100)
== END 2023-09-13 23:59 | disposition home or self-care (01) ==
LOC: LAB 16:43
PROVIDERS: PCP Nurse Practitioner Family; Visit Provider Internal Medicine Rheumatology
DX: M81.0 Age-related osteoporosis without current pathological fracture (principal); E55.9 Vitamin D deficiency, unspecified
CPT/HCPCS: 36415; 80053; 82306

== ENCOUNTER 2023-10-16 14:20 | Outpatient (CLI) | payer MEDICARE, SELFPAY ==
--- NOTE | 2023-10-16 14:23 | XR_ITS ---
FINAL REPORT TECHNIQUE: Chest PA & Lateral CLINICAL HISTORY: dyspnea FINDINGS: 2 views of the chest were performed. The heart size is mildly enlarged. Sternal wires are present. There is no acute cardiopulmonary process. There are no pleural effusions. There is no pneumothorax. The bony thorax appears intact. IMPRESSION: No acute cardiopulmonary process. Reviewed, Interpreted and Dictated by Carlos Alberto Hu MD Transcribed by Puja Holder Authenticated and [facility]
[2023-10-16 18:32] LABS: Adenovirus,PCR Not Detected (NotDetected); Bordetella Pertussis Not Detected (NotDetected); Chlamydophila Pneumoniae, PCR Not Detected (NotDetected); Coronavirus 19, PCR Not Detected (NotDetected); Coronavirus 229E Not Detected (NotDetected); Coronavirus NL63 Not Detected (NotDetected); Coronavirus OC43 Not Detected (NotDetected); Coronovirus HKU1,PCR Not Detected (NotDetected); Human Metapneumovirus Not Detected (NotDetected); Influenza A, PCR Not Detected (NotDetected); Influenza AH1, 2009 Not Detected (NotDetected); Influenza AH1, PCR Not Detected (NotDetected); Influenza AH3,PCR Not Detected (NotDetected); Influenza B, PCR Not Detected (NotDetected); Mycoplasma Pneumoniae, PCR Not Detected (NotDetected); Parainfluenza 1, PCR Not Detected (NotDetected); Parainfluenza 2, PCR Not Detected (NotDetected); Parainfluenza 3, PCR Not Detected (NotDetected); Parainfluenza 4, PCR Not Detected (NotDetected); Respiratory Syncytial Virus Not Detected (NotDetected); Rhinovirus/Enterovirus Not Detected (NotDetected)
== END 2023-10-16 23:59 | disposition home or self-care (01) ==
LOC: LAB.DROPOF 14:21
PROVIDERS: PCP Nurse Practitioner Family; Visit Provider Nurse Practitioner Family
DX: R06.00 Dyspnea, unspecified (principal); R09.89 Other specified symptoms and signs involving the circulatory and respiratory systems
CPT/HCPCS: 71046; 87581; 87632; 87635; 87798

== ENCOUNTER 2024-01-25 22:38 | Inpatient (IN) | payer MEDICARE, SELFPAY ==
[2024-01-25 22:38] VITALS: BP 176/89; PULSE 88; RESP 18; TEMP 36.8; O2SAT 97; BMI 25.0
[2024-01-25 23:02] VITALS: BP 179/83; PULSE 86; O2SAT 70
--- NOTE | 2024-01-25 23:02 | HMH.EDGENADL ---
Discharge Plan Disposition Patient Disposition: Admitted Chief Complaint: Abdominal Pain Prescriptions Prescriptions: No Action methotrexate sodium 2.5 mg tablet 2.5 mg PO WEEKLY Rx Instructions: Pt to take 8 tablets at one time weekly. cetirizine [Allergy Relief (cetirizine)] 10 mg tablet 10 mg PO DAILY PRN folic acid 1 mg tablet 1 mg PO BID metoprolol tartrate 25 mg tablet 25 mg PO BID Patient Comments: TAKE 1 TABLET BY MOUTH TWICE DAILY pregabalin 50 mg capsule 50 mg PO DAILY prednisone 20 mg tablet 20 mg PO BID Rx Instructions: Take 20 mg (1 tab) every morning and again at 2 PM for 3 days. Then decrease to 10 mg (1/2 half tab) every morning and again at 2 PM for 3 days. Then stop. nortriptyline 10 mg capsule 10 mg PO HS albuterol sulfate 90 mcg/actuation HFA aerosol inhaler 2 puff inhalation Q4-6H PRN (Reason: shortness of breath or wheezing) Qty: 8.5 5RF diltiazem HCl 180 mg capsule,extended release 24hr 180 mg PO DAILY 90 Days Qty: 90 3RF [id number] [Bromfed DM] 2-30-10 mg/5 mL syrup 7.5 ml PO Q4-6H PRN (Reason: cough) Qty: 200 0RF pantoprazole 40 mg tablet,delayed release (DR/EC) See Rx Instructions .ROUTE .COMPLEX Qty: 90 0RF Dose Instruction: TAKE 1 TABLET BY MOUTH ONCE DAILY FOR GERD Rx Instructions: TAKE 1 TABLET BY MOUTH ONCE DAILY FOR GERD atorvastatin 40 mg tablet See Rx Instructions .ROUTE .COMPLEX Qty: 90 0RF Dose Instruction: TAKE 1 TABLET BY MOUTH AT BEDTIME NIGHTLY FOR CHOLESTEROL Rx Instructions: TAKE 1 TABLET BY MOUTH AT BEDTIME NIGHTLY FOR CHOLESTEROL Pro Fe 180 mg iron capsule See Rx Instructions .ROUTE .COMPLEX Qty: 90 0RF Dose Instruction: Take 1 capsule by mouth once daily Rx Instructions: Take 1 capsule by mouth once daily multivitamin 1 EACH tablet 1 each PO DAILY calcium carbonate 600 MG tablet 600 mg PO DAILY docusate sodium 100 MG capsule 100 mg PO DAILY aspirin 81 MG tablet,chewable 81 mg PO DAILY cholecalciferol (vitamin D3) 1,000 UNIT capsule 1,000 unit PO DAILY magnesium oxide 500 MG capsule 500 mg PO DAILY denosumab 60 mg/mL syringe 60 mg SQ [id number] Referrals Follow up/Referrals: Geeta Esteban APRN [Primary Care Provider] - See instructions Clinical Impressions Clinical Impression: SBO (small bowel obstruction) Instructions Patient Instructions: DI for Acute Abdominal Pain Print Language Print Language: Hungarian Discharge ED Provider: Minesh Ngo General Adult HPI General Chief complaint: Abdominal Pain Stated complaint: ABD PAIN Time Seen by Provider: 01/25/24 22:58 History of Present Illness HPI narrative: 83-year-old female with history of rheumatoid arthritis on methotrexate, amyloidosis, coronary artery disease, presents for abdominal pain nausea and vomiting. Symptoms started around today, have been waxing and waning but include left lower quadrant and left upper quadrant abdominal pain. Much more severe today. Patient also had fairly significant bouts of diarrhea both on Saturday and today. Patient has had decreased p.o. intake and has been having vomiting. She feels generally weak and does not feel like she has been able to keep up with her hydration. No reported blood in the vomit or diarrhea. No recent antibiotic exposure, no fever at home. Related Data Home Medications ?Medication ?Instructions ?Recorded ?Confirmed aspirin 81 mg chewable tablet 81 mg PO DAILY supplemnt 04/11/21 10/16/23 calcium carbonate 600 mg PO DAILY Supplement 04/11/21 10/16/23 cholecalciferol (vitamin D3) 25 1,000 unit PO DAILY Supplement 04/11/21 10/16/23 mcg (1,000 unit) capsule docusate sodium 100 mg capsule 100 mg PO DAILY stool 04/11/21 10/16/23 magnesium oxide 500 mg capsule 500 mg PO DAILY Supplement 04/11/21 10/16/23 multivitamin 1 each PO DAILY Supplement 04/11/21 10/16/23 methotrexate sodium 2.5 mg tablet 2.5 mg PO WEEKLY 01/22/22 10/16/23 cetirizine 10 mg tablet (Allergy 10 mg PO DAILY PRN 07/19/22 10/16/23 Relief (cetirizine)) pregabalin 50 mg capsule 50 mg PO DAILY 01/21/23 10/16/23 denosumab 60 mg/mL subcutaneous 60 mg SQ [id number] . 05/10/23 10/16/23 syringe folic acid 1 mg tablet 1 mg PO BID Supplement 10/07/23 10/16/23 metoprolol tartrate 25 mg tablet 25 mg PO BID 10/16/23 10/16/23 nortriptyline 10 mg capsule 10 mg PO HS 10/16/23 prednisone 20 mg tablet 20 mg PO BID 10/16/23 Previous Rx's ?Medication ?Instructions ?Recorded diltiazem HCl 180 mg 180 mg PO DAILY 90 days #90 caps 08/30/22 capsule,extended release 24 hr albuterol sulfate 90 mcg/actuation 2 puff inhalation Q4-6H PRN 10/16/23 aerosol inhaler shortness of breath or wheezing #8.5 grams plvywqhqiqensse-vifqryuhwmzfqgi-OV 7.5 ml PO Q4-6H PRN cough #200 mL 10/17/23 2 mg-30 mg-10 mg/5 mL oral syrup (Bromfed DM) atorvastatin 40 mg tablet See Rx Instructions .Route 11/07/23 .COMPLEX #90 tabs pantoprazole 40 mg tablet,delayed See Rx Instructions .Route 11/07/23 release .COMPLEX #90 tabs polysaccharide iron complex 180 mg See Rx Instructions .Route 01/13/24 iron capsule (Pro Fe) .COMPLEX #90 caps Allergies Allergy/AdvReac Type Severity Reaction Status Date / Time loratadine (From Claritin) Allergy Intermediate Rash Verified 01/25/24 23:16 Sulfa (Sulfonamide Allergy Intermediate rash/swelli Verified 01/25/24 23:16 Antibiotics) ng sulfamethoxazole (From Allergy Intermediate rash/swelli Verified 01/25/24 23:16 Bactrim) ng trimethoprim (From Bactrim) Allergy Intermediate rash/swelli Verified 01/25/24 23:16 ng nitrofurantoin (From AdvReac Hives Verified 01/25/24 23:16 Macrobid) [facility] Disclaimer: The information contained in this section may have been updated after the patient was seen, as this information can be updated by other users. Medical History (Updated 01/26/24 @ 02:57 by Minesh Ngo MD) External otitis of right ear Right otitis media Sore throat Shortness of breath Oral candidiasis Acute anterior epistaxis Stomatitis Fatigue Dark urine Liver cyst Elevated liver enzymes Anterior epistaxis Amyloidosis Neuropathy Osteoporosis GERD (gastroesophageal reflux disease) Degenerative disc disease HTN (hypertension), benign HLD (hyperlipidemia) Surgical History History of discectomy History of open heart surgery History of cholecystectomy H/O total hysterectomy Family History Sister Cancer Breast Ca Unknown Cancer Breast Ca Unknown Cancer Rare type of cancer with low platelets-Leukemia Family/Other Anemia increased weakness and fatigue Hypertension Other Coronary artery disease Heart attack Social History Smoking Status: Never smoker alcohol intake: never substance use type: denies use current occupational status: retired Travel in the last 8 weeks: None housing: house caffeine: Yes physical activity: walking and yoga frequency: daily duration: 15-30 minutes/day do you feel safe at home: Yes victim of physical abuse: No victim of emotional abuse: No victim of sexual abuse: No would you like helpful sources: No Other Medical History Have you received the Flu Vaccine for this season: Yes Have you received the Pneumonia Vaccine: Yes ROS Obtained: Yes All systems reviewed & no additional complaints except as documented Physical Exam General General appearance: alert and in no apparent distress Head Head exam: atraumatic and normocephalic Eye Eye exam: Present normal appearance, PERRL and EOMI ENT ENT exam: Present normal oropharynx and normal external ear exam Neck Neck exam: Present normal inspection and full ROM Chest Chest inspection: Present normal inspection and symmetric chest wall rise; Absent tenderness Respiratory Respiratory exam: Present normal lung sounds bilaterally; Absent respiratory distress Cardiovascular Cardiovascular exam: Present regular rate and normal rhythm Abdominal Exam Abdominal exam: Present soft and tenderness (Mild, generalized without guarding or peritonitis); Absent distention or guarding Extremities Exam Extremities exam: Present normal inspection; Absent edema or joint swelling Back Exam Back exam: Present normal inspection; Absent tenderness Neurological Exam Neurological exam: Present alert and oriented X3; Absent motor sensory deficit Psychiatric Psychiatric exam: Present normal affect and normal mood Skin Skin exam: Present warm, dry and normal color Lymphatic Lymphatic Findings: no adenopathy Medical Decision Making Medical Records Medical records reviewed: Yes I reviewed the patient's medical records. Screening: Per USPSTF and CDC recommendations, given the prevalence of disease in our region, it is our hospital?s policy to screen for HIV and viral Hepatitis for all patients aged 18 and over and those with ongoing risk factors. Davion Inquiry Pt receiving controlled substance: No Davion was queried for this patient: No Vital Signs: 12/07/24 22:38 01/25/24 23:02 01/25/24 23:30 Temperature 98.2 F Temperature Source Oral Pulse Rate 86 91 H Pulse Rate [Apical] 88 Respiratory Rate 18 Blood Pressure 179/83 H 174/88 H Blood Pressure [Right Arm] 176/89 H Blood Pressure Mean [Right Arm] 118 02 Sat by Pulse Oximetry 97 70 L 91 L Oxygen Delivery Method Room Air Lab Data Lab results reviewed: Yes I reviewed the patient's lab results. Lab Results 01/25/24 22:44: WBC 5.5, RBC 3.53 L, Hgb 12.0 L, Hct 36.0 L, MCV 101.8 H, MCH 34.0 H, MCHC 33.4, RDW 18.9 H, Plt Count 125 L, MPV 9.6, Neut % (Auto) 80.2 H, Lymph % (Auto) 13.7, Moody % (Auto) 4.0, Eos % (Auto) 1.4, Baso % (Auto) 0.7, Neut # (Auto) 4.4, Lymph # (Auto) 0.8, Moody # (Auto) 0.2, Eos # (Auto) 0.1, Baso # (Auto) 0.0, Sodium 140, Potassium 4.1, Chloride 106, Carbon Dioxide 31 H, Anion Gap 7.1, BUN 20 H, Creatinine 0.90, Estimated Creat Clear 45, Estimated GFR 60, Est GFR ( Amer) 72, Glucose 121 H, Calcium 8.4, Magnesium 1.7, Total Bilirubin 0.9, AST 66 H, ALT 31, Alkaline Phosphatase 57, Total Protein 6.1 L, Albumin 3.6, Globulin 2.5, Albumin/Globulin Ratio 1.4, Lipase 95, HIV 1&2 Antibody Rapid Nonreactive 01/26/24 00:19: SARS-CoV-2 (PCR) Not detected, Influenza A Untype (PCR) Not detected, Influenza Type B (PCR) Not detected 01/25/24 22:44 01/25/24 22:44 Orders (Tests/Meds): ED MEDICATIONS Generic Name Dose Route Start Last Admin Trade Name Freq PRN Reason Stop Dose Admin Sodium Chloride 10 ml 01/26/24 01:04 01/26/24 01:05 Sodium Chloride 0.9% 10ml Syr (Rad Only) IV 02/25/24 01:03 10 ml NEEDED PRN Administration Maintain IV Site Discontinued Medications Generic Name Dose Route Start Last Admin Trade Name Mila PRN Reason Stop Dose Admin Lactated Ringer's 1,000 mls @ 999 mls/hr 01/25/24 23:30 Lactated Ringer's 1000 Ml Bag IV 01/26/24 00:30 .Q1H1M CHRIS Iopamidol 75 ml 01/26/24 01:04 01/26/24 01:05 Iopamidol-370 (76%);100ml Bottle IV 01/26/24 01:05 75 ml ONCE ONE Administration Ondansetron HCl 4 mg 01/25/24 23:28 01/25/24 23:52 Ondansetron 4mg/2ml Vial IV 01/25/24 23:29 4 mg ONCE ONE Administration ORDERS Category Date Time Status CT abdomen pelvis w con Stat Cat Scan 01/25/24 23:29 Completed CXR --portable [XR chest portable] Stat Exams 01/26/24 01:40 Taken CBC w/Auto Diff [Complete Blood Count Auto Diff] Stat Lab 01/25/24 22:44 Completed CMP [Comprehensive Metabolic Panel] Stat Lab 01/25/24 22:44 Completed Diarrhea 23 Panel, PCR Stat Lab 01/25/24 23:28 Ordered HIV (1&2) Antibody Rapid Stat Lab 01/25/24 22:44 Completed Lipase Stat Lab 01/25/24 22:44 Completed Magnesium Stat Lab 01/25/24 22:44 Completed Rapid PCR Covid and Flu A/B Stat Lab 01/26/24 00:19 Completed UA [Urinalysis and Microscopic] Stat Lab 01/25/24 23:29 Ordered Blood Culture Stat Micro 01/26/24 00:40 Received Medical Decision Narrative: 83-year-old female with history of rheumatoid arthritis on methotrexate, amyloidosis, hypertension presents for a few days of nausea vomiting diarrhea and abdominal pain, feels generally weak. initially worse on Saturday, improved, now worse again today.. History was obtained via interactive discussion with patient, family, chart review. On arrival, patient is [afebrile, hemodynamically stable, alert, oriented x4, GCS 15], moving all extremities spontaneously. Full physical exam performed and significant for mild abdominal tenderness. Patient was reported to be hypoxic with EMS in the 80s, currently on 2 L breathing comfortably satting appropriately. She does not wear oxygen normally at home. She denies chest pain or shortness of breath. Differential includes but is not limited to bowel obstruction, mesenteric ischemia, diverticulitis, gastroenteritis, pancreatitis. Patient was given 1 L IV fluid bolus for symptomatic management and correction of underlying abnormalities. Workup initiated including CBC CMP mag urine urine culture blood culture COVID flu lipase diarrhea panel chest x-ray CT abdomen pelvis with IV contrast. On re-evaluation, patient [remains afebrile, HD stable.] She reports she is not nauseous and has had no vomiting here in the ER Laboratory workup independently interpreted by me and significant for stable renal function, no significant electrolyte derangement.. Imaging independently interpreted by me and significant for small bowel obstruction with dilated small bowel loops and possible transition point in the left hemiabdomen.. See radiology read for full review of final results. NG tube placement was considered, but given she is not actively nauseous or vomiting, has not vomited in the ER, does not have any significant stomach contents on CT, I do not think that she requires an NG at this moment, but if she starts become nauseous I think it would be prudent. Given patient history, exam and workup, patient's presentation most likely represents small bowel obstruction. Interactive discussion was had with patient and family regarding presentation. She was admitted to the hospitalist for further management. Procedures Risk/Benefits of Procedure(s) Were Explained: Yes Critical Care Critical Care Time Critical Care Time: No
--- NOTE | 2024-01-25 23:29 | CT_ITS ---
PROCEDURE INFORMATION: Exam: CT Abdomen And Pelvis With Contrast Exam date and time: 01/26/2024 12:55 AM Age: 83 years old Clinical indication: Abdominal pain; Additional info: Abd pain n/v TECHNIQUE: Imaging protocol: Computed tomography of the abdomen and pelvis with contrast. Radiation optimization: All CT scans at this facility use at least one of these dose optimization techniques: automated exposure control; mA and/or kV adjustment per patient size (includes targeted exams where dose is matched to clinical indication); or iterative reconstruction. Contrast material: ISOVUE; Contrast volume: 75 ml; Contrast route: IV; COMPARISON: 1. CR XR HIP LT 2-3V W/PELVIS 04/22/2023 4:30 PM 2. MR HIP LT WO CON 01/31/2022 2:14 PM 3. US ABDOMEN COMPLETE 05/17/2023 8:04 AM FINDINGS: Lungs: Scattered areas of bronchial wall thickening which are likely chronic inflammatory. A few areas of subpleural reticulation are noted, nonspecific. Liver: There are calcifications in the liver which most likely reflect calcified granulomas. There are low-density lesions in the liver which most likely reflect a combination of cysts and/or hemangiomas. Gallbladder and biliary ducts: The patient is status post cholecystectomy. Pancreas: Normal. Spleen: There are multiple calcifications in the spleen most likely reflects small granulomas. Adrenal glands: The adrenal glands appear normal. Kidneys and ureters: Significant atrophy of the left kidney. Right upper pole renal cyst. Stomach and bowel: There are scattered colonic diverticula. There is significant distension of proximal small bowel loops with a suspected transition point in the left hemiabdomen (image 26 series 1001). No evidence for perforation or abscess. Appendix: No evidence of appendicitis. Intraperitoneal space: Unremarkable. Vasculature: There is atherosclerotic disease of the visualized aorta and its major branch vessels. Moderate narrowing at the origin of the SMA with patent distal flow. Lymph nodes: No lymphadenopathy. Urinary bladder: Unremarkable as visualized. Reproductive: The patient has undergone prior hysterectomy. Bones/joints: There is diffuse degenerative disease of the visualized osseous structures. There is surgical hardware within the lumbar spine. The patient is status post median sternotomy. Soft tissues: Unremarkable. IMPRESSION: Possible small bowel obstruction with transition point identified in the left hemiabdomen. No evidence for perforation at the time of imaging. COMMENTS: Consistent with the [employer]'s Incidental Findings Committee white paper (J Am Chelsey Radiol 2018): Any incidental renal lesion less than 1 cm or classified as too small to characterize, or any incidental cystic renal lesion characterized as simple-appearing, is likely benign. No follow-up imaging is recommended for these lesions per consensus recommendations based on imaging criteria.
[2024-01-25 23:30] VITALS: BP 174/88; PULSE 91; O2SAT 91
[2024-01-25 23:41] LABS: Basophils % 0.7 % (0.1-2.0); Eosinophils # 0.1 K/mm3 (0.0-0.4); Eosinophils % 1.4 % (0.1-12.0); Lymphocytes # 0.8 K/mm3 (0.7-4.5); Lymphocytes % 13.7 % (10-50); Mean Corpuscular HGB Conc 33.4 g/dL (31.8-35.4); Mean Corpuscular Volume 101.8 fl (81-99); Mean Platelet Volume 9.6 fl (7.4-10.4); Monocytes # 0.2 K/mm3 (0.1-1.0); Neutrophils # 4.4 K/mm3 (1.8-7.8); Neutrophils % 80.2 % (37.0-80.0); Platelet Count 125 K/mm3 (142-424); Red Blood Count 3.53 M/mm3 (4.20-5.40); Red Cell Distribution Width 18.9 % (11.5-17.5); White Blood Count 5.5 K/mm3 (4.8-10.8)
[2024-01-25 23:47] LABS: Alanine Aminotransferase 31 U/L (12-78); Albumin Level 3.6 g/dl (3.5-5.0); Albumin/Globulin Ratio 1.4 (1.1-1.8); Alkaline Phosphatase 57 U/L (38-126); Anion Gap 7.1 mEq/L (5-15); Aspartate Amino Transferase 66 U/L (14-36); Bilirubin,Total 0.9 mg/dl (0.2-1.3); Blood Urea Nitrogen 20 mg/dl (7-17); Calcium 8.4 mg/dl (8.4-10.2); Carbon Dioxide 31 mmol/L (22.0-30.0); Chloride 106 mmol/L (98-107); Creatinine Clearance Estimated 45 mL/min (50-200); Estimated Glomerular Filt Rate 60 ml/min (>60); GFR (African American) 72 ML/MIN (>60); Globulin 2.5 g/dL (1.3-3.2); Glucose 121 mg/dl (74-100); Lipase 95 U/L (23-300); Magnesium 1.7 mg/dl (1.6-2.3); Potassium 4.1 mmoL/L (3.5-5.1); Sodium 140 mmol/L (136-145); Total Protein,Serum 6.1 g/dl (6.3-8.2)
[2024-01-25] MEDS: ONDANSETRON 4MG/2ML VIAL 4 MG IV (23:52)
[2024-01-26] VITALS (7 sets, daily range): BP systolic 92–147; BP diastolic 64–91; PULSE 85–115; RESP 16–20; TEMP 36.7–37.2; O2SAT 87–97; BMI 25.0
[2024-01-26 00:29] LABS: Coronavirus 19, PCR Not Detected (NotDetected); Influenza A, PCR Not Detected (NotDetected); Influenza B, PCR Not Detected (NotDetected)
[2024-01-26 00:46] LABS: HIV (1&2) Antibody Rapid NONREACTIVE (NONREACTIVE)
[2024-01-26] MEDS: SODIUM CHLORIDE 0.9% 10ML SYR (RAD ONLY) 10 ML IV (01:05)
[2024-01-26] MEDS: IOPAMIDOL-370 (76%);100ML BOTTLE 75 ML IV (01:05)
--- NOTE | 2024-01-26 01:40 | XR_ITS ---
PROCEDURE INFORMATION: Exam: XR Chest Exam date and time: 01/26/2024 1:46 AM Age: 83 years old Clinical indication: Other: Hypoxia TECHNIQUE: Imaging protocol: Radiologic exam of the chest. Views: 1 view. COMPARISON: CR XR CHEST 2V 10/16/2023 2:33 PM FINDINGS: Lungs: Subtle bibasilar patchy opacities. Subtle ground-glass opacification of the left mid lung zone. Pleural spaces: No pleural effusion. No pneumothorax. Heart/Mediastinum: Mild cardiomegaly. Median sternotomy noted. Heavy atherosclerotic calcification of the thoracic aorta. Bones/joints: Degenerative change of the thoracic spine. Intraperitoneal space: Right upper quadrant clips noted. IMPRESSION: 1. Subtle bibasilar patchy opacities and subtle ground-glass opacification of the left mid lung zone may be related to infection. Advise clinical correlation for infection. 2. Open heart postsurgical change. Mild cardiomegaly.
--- NOTE | 2024-01-26 02:52 | PC.NURSE ---
Report called to SHIRLEY Molina
--- NOTE | 2024-01-26 02:56 | P.HP_ITS ---
History of Present Illness *Admission Date: 01/26/24 *Reason for visit:: Abdominal pain *History of present illness: This is an 83-year-old female who presents to [facility] emergency department with concerns of diffuse abdominal pain that started earlier in the week. She is accompanied by her daughter who assists with the history. The patient lives with her daughter and normally ambulates with a walker. She reports associated nausea, vomiting and diarrhea over several days. She reports her symptoms are intermittent. She reports her hairdresser had similar symptomatology when she started feeling ill. She got a little bit better and tolerated p.o. and then Saturday she started feeling poorly again. She has identified no fever, chills but does endorse weakness and fatigue. She reports her abdominal pain is not resolving. She has identified no concerns for eating spoiled food. She reports no associated hematemesis, melena, hematochezia or dysuria. In the ED a CT of the abdomen and pelvis identified concerns for small bowel obstruction. She reports previous abdominal surgeries. [facility] Medical History (Updated 01/26/24 @ 03:25 by Serg Louise MD) CAD (coronary artery disease) Rheumatoid arthritis Psoriatic arthritis Liver cyst Amyloidosis Neuropathy Osteoporosis GERD (gastroesophageal reflux disease) Degenerative disc disease HTN (hypertension), benign HLD (hyperlipidemia) Surgical History (Updated 01/26/24 @ 03:25 by Serg Louise MD) S/P CABG (coronary artery bypass graft) History of discectomy History of open heart surgery History of cholecystectomy H/O total hysterectomy Family History Sister Cancer Breast Ca Unknown Cancer Breast Ca Unknown Cancer Rare type of cancer with low platelets-Leukemia Family/Other Anemia increased weakness and fatigue Hypertension Other Coronary artery disease Heart attack Social History Smoking Status: Never smoker alcohol intake: never substance use type: denies use current occupational status: retired Travel in the last 8 weeks: None housing: house caffeine: Yes physical activity: walking and yoga frequency: daily duration: 15-30 minutes/day do you feel safe at home: Yes victim of physical abuse: No victim of emotional abuse: No victim of sexual abuse: No would you like helpful sources: No Other Medical History Have you received the Flu Vaccine for this season: Yes Have you received the Pneumonia Vaccine: Yes Review of Systems Review of Systems Review of systems:: pertinent systems reviewed and negative unless documented below Meds Home Medications and Allergies Home Medications ?Medication ?Instructions ?Recorded ?Confirmed ?Type aspirin 81 mg chewable tablet 81 mg PO DAILY supplemnt 04/11/21 10/16/23 History calcium carbonate 600 mg PO DAILY Supplement 04/11/21 10/16/23 History cholecalciferol (vitamin D3) 25 1,000 unit PO DAILY Supplement 04/11/21 10/16/23 History mcg (1,000 unit) capsule docusate sodium 100 mg capsule 100 mg PO DAILY stool 04/11/21 10/16/23 History magnesium oxide 500 mg capsule 500 mg PO DAILY Supplement 04/11/21 10/16/23 History multivitamin 1 each PO DAILY Supplement 04/11/21 10/16/23 History methotrexate sodium 2.5 mg tablet 2.5 mg PO WEEKLY 01/22/22 10/16/23 History cetirizine 10 mg tablet (Allergy 10 mg PO DAILY PRN 07/19/22 10/16/23 History Relief (cetirizine)) diltiazem HCl 180 mg 180 mg PO DAILY 90 days #90 caps 08/30/22 10/16/23 Rx capsule,extended release 24 hr pregabalin 50 mg capsule 50 mg PO DAILY 01/21/23 10/16/23 History denosumab 60 mg/mL subcutaneous 60 mg SQ [id number] . 05/10/23 10/16/23 History syringe folic acid 1 mg tablet 1 mg PO BID Supplement 10/07/23 10/16/23 History albuterol sulfate 90 mcg/actuation 2 puff inhalation Q4-6H PRN 10/16/23 10/16/23 Rx aerosol inhaler shortness of breath or wheezing #8.5 grams metoprolol tartrate 25 mg tablet 25 mg PO BID 10/16/23 10/16/23 History nortriptyline 10 mg capsule 10 mg PO HS 10/16/23 History prednisone 20 mg tablet 20 mg PO BID 10/16/23 History aobcbbkdqtvhviv-ojutiekuwrzdpoh-CO 7.5 ml PO Q4-6H PRN cough #200 mL 10/17/23 Rx 2 mg-30 mg-10 mg/5 mL oral syrup (Bromfed DM) atorvastatin 40 mg tablet See Rx Instructions .Route 11/07/23 Rx .COMPLEX #90 tabs pantoprazole 40 mg tablet,delayed See Rx Instructions .Route 11/07/23 Rx release .COMPLEX #90 tabs polysaccharide iron complex 180 mg See Rx Instructions .Route 01/13/24 Rx iron capsule (Pro Fe) .COMPLEX #90 caps New Prescriptions to Start Prescriptions: Allergies Allergy/AdvReac Type Severity Reaction Status Date / Time loratadine (From Claritin) Allergy Intermediate Rash Verified 01/25/24 23:16 Sulfa (Sulfonamide Allergy Intermediate rash/swelli Verified 01/25/24 23:16 Antibiotics) ng sulfamethoxazole (From Allergy Intermediate rash/swelli Verified 01/25/24 23:16 Bactrim) ng trimethoprim (From Bactrim) Allergy Intermediate rash/swelli Verified 01/25/24 23:16 ng nitrofurantoin (From AdvReac Hives Verified 01/25/24 23:16 Macrobid) Exam Data for Last 24 hours Vital signs and Labs for Last 24 Hours: Temp Pulse Resp BP Pulse Ox O2 Del Method 98.2 F 91 H 18 174/88 H 91 L Room Air 01/25/24 22:38 01/25/24 23:30 01/25/24 22:38 01/25/24 23:30 01/25/24 23:30 01/25/24 22:38 Laboratory Results - last 24 hr 01/25/24 22:44: WBC 5.5, RBC 3.53 L, Hgb 12.0 L, Hct 36.0 L, MCV 101.8 H, MCH 34.0 H, MCHC 33.4, RDW 18.9 H, Plt Count 125 L, MPV 9.6, Neut % (Auto) 80.2 H, Lymph % (Auto) 13.7, [place] % (Auto) 4.0, Eos % (Auto) 1.4, Baso % (Auto) 0.7, Neut # (Auto) 4.4, Lymph # (Auto) 0.8, [place] # (Auto) 0.2, Eos # (Auto) 0.1, Baso # (Auto) 0.0, Sodium 140, Potassium 4.1, Chloride 106, Carbon Dioxide 31 H, Anion Gap 7.1, BUN 20 H, Creatinine 0.90, Estimated Creat Clear 45, Estimated GFR 60, Est GFR ( Amer) 72, Glucose 121 H, Calcium 8.4, Magnesium 1.7, Total Bilirubin 0.9, AST 66 H, ALT 31, Alkaline Phosphatase 57, Total Protein 6.1 L, Albumin 3.6, Globulin 2.5, Albumin/Globulin Ratio 1.4, Lipase 95, HIV 1&2 Antibody Rapid Nonreactive 01/26/24 00:19: SARS-CoV-2 (PCR) Not detected, Influenza A Untype (PCR) Not detected, Influenza Type B (PCR) Not detected I & O for Last 24 hours: Intake & Output 01/23/24 01/24/24 01/25/24 01/26/24 23:59 23:59 23:59 23:59 Weight 68.039 kg Constitutional Constitutional: no acute distress, average body habitus and cooperative *Routine HEENT Exam Head: Present normocephalic and atraumatic Eye: Present EOMI and PERRL ENT: Present mucous membranes moist *Routine Neck Exam Neck: Present supple; Absent lymphadenopathy *Routine Respiratory Exam Respiratory: Present CTA bilaterally, normal respiratory effort and symmetric chest movement; Absent respiratory distress *Routine Cardiovascular Exam Cardiovascular: Present RRR *Routine Abdominal Exam Abdominal: Present soft and tenderness; Absent distended, rebound or guarding *Routine Rectal Exam Rectal:: deferred *Routine Genitalia Exam Genitalia:: deferred *Routine Extremities Exam Extremities: Present full ROM; Absent cyanosis or edema *Routine Skin Exam Skin: Present intact and warm; Absent rash *Routine Neurological Exam Neurological: Present alert, oriented X3, moving all extremities, vision grossly intact, hearing grossly intact and normal speech; Absent sensory deficit or motor deficit Routine Psychiatric Exam Psychiatric: Present normal affect, normal thought process, cooperative, good insight and good judgment Assessment and Plan *Assessment and plan (1) SBO (small bowel obstruction): Status: Acute Category: Medical Code(s): K56.609 - Unspecified intestinal obstruction, unspecified as to partial versus complete obstruction (2) HTN (hypertension), benign: Status: Acute Category: Medical Code(s): I10 - Essential (primary) hypertension (3) Rheumatoid arthritis: Status: Inactive Category: Medical Code(s): M06.9 - Rheumatoid arthritis, unspecified Plan This is an 83-year-old female who identifies a sick contact before symptomatology started. She reports a chronic history of rheumatoid arthritis on immunosuppressive therapy. Problems addressed as follows: Small bowel obstruction Gastroenteritis Previous cholecystectomy CT abdomen and pelvis with small bowel obstruction N.p.o. status IV fluid resuscitation Trending labs and inflammatory markers Electrolyte and mineral replacement therapy GI PCR panel pending Antiemetic therapy Pain control Parenterally administered controlled substance for comfort care Hypertension Routine blood pressure monitoring Beta-shivam therapy Calcium channel shivam therapy Rheumatoid arthritis Immunocompromise state Weekly immunosuppressive therapy Pain control Advanced age Fall precautions Routine nursing interaction The length of stay for this patient will be 2 midnights or greater due to above diagnoses.
--- NOTE | 2024-01-26 03:21 | PC.NURSE ---
Patient arrived to floor via stretcher from ED at 03:08.
[2024-01-26] MEDS: LACTATED RINGERS 1000ML 1,000 ML 100 ML IV ×2 (03:29→13:15)
--- NOTE | 2024-01-26 05:59 | PC.NURSE ---
since arriving to the floor the patient has slept and had no complaints
[2024-01-26 07:27] LABS: Chloride 111 mmol/L (98-107); Sodium 138 mmol/L (136-145)
[2024-01-26 07:28] LABS: Potassium 3.7 mmoL/L (3.5-5.1)
[2024-01-26 07:30] LABS: Anion Gap 4.7 mEq/L (5-15); Basophils % 0.2 % (0.1-2.0); Blood Urea Nitrogen 15 mg/dl (7-17); Carbon Dioxide 26 mmol/L (22.0-30.0); Creatinine Clearance Estimated 45 mL/min (50-200); Eosinophils # 0.1 K/mm3 (0.0-0.4); Eosinophils % 1.6 % (0.1-12.0); Estimated Glomerular Filt Rate 68 ml/min (>60); GFR (African American) 83 ML/MIN (>60); Hematocrit 32.6 % (37.0-47.0); Hemoglobin 10.8 g/dL (12.2-16.2); Lymphocytes % 29.9 % (10-50); Mean Corpuscular HGB Conc 33.1 g/dL (31.8-35.4); Mean Corpuscular Hemoglobin 34.1 pg (27.0-31.2); Mean Corpuscular Volume 103.2 fl (81-99); Mean Platelet Volume 10.2 fl (7.4-10.4); Monocytes # 0.2 K/mm3 (0.1-1.0); Monocytes % 6.2 % (1.7-9.3); Neutrophils # 2.1 K/mm3 (1.8-7.8); Neutrophils % 62.1 % (37.0-80.0); Platelet Count 120 K/mm3 (142-424); Red Blood Count 3.16 M/mm3 (4.20-5.40); Red Cell Distribution Width 18.9 % (11.5-17.5); White Blood Count 3.3 K/mm3 (4.8-10.8)
[2024-01-26 07:31] LABS: Calcium 7.9 mg/dl (8.4-10.2); Glucose 86 mg/dl (74-100); Magnesium 1.7 mg/dl (1.6-2.3)
[2024-01-26] MEDS: dilTIAZem HCL 180MG CAP.ER.24H 180 MG PO (09:13)
[2024-01-26] MEDS: ENOXAPARIN 40MG/0.4ML SYRINGE 40 MG SUBCUT (09:13)
[2024-01-26] MEDS: METOPROLOL TARTRATE 25MG TABLET 25 MG PO ×2 (09:13→20:36)
[2024-01-26 09:50] LABS: Microscopic, Urine URINE MICROSCOPIC (MICROSCOPIC)
[2024-01-26] MEDS: ACETAMINOPHEN 325MG TAB 1000 MG PO (09:50)
--- NOTE | 2024-01-26 10:16 | HMH.PHAINT1 ---
Pharmacy Intervention Comments: MEDICATION RECONCILIATION COMPLETE USING LIST FROM RECENT PRIMARY CARE OFFICE VISIT, EXTERNAL PHARMACY FILL HISTORY, AND CHERYL REPORT.
[2024-01-26 10:50] LABS: Appearance,Urine CLEAR (Clear); Bilirubin,Urine Negative (Negative); Blood, Urine Negative (Negative); Color,Urine YELLOW (Yellow); Glucose,Urine (UA) Negative (Negative); Ketones,Urine Negative (Negative); Leukocyte Esterase,Urine 1+ (Negative); Nitrate,Urine POSITIVE (Negative); Protein,Urine Negative (Negative)
[2024-01-26 11:45] LABS: Bacteria,Urine 1+ /lpf
--- NOTE | 2024-01-26 12:39 | PC.NURSE ---
pt is tolerating po intake well. has urinated but does not feel she can have a bowel movement @ this time
[2024-01-26] MEDS: CEFTRIAXONE 1 GM 1 GM in 0.9 % SODIUM CHLORIDE 50 ML IV (12:41)
[2024-01-26] MEDS: PREGABALIN 100MG CAPSULE 100 MG PO ×2 (12:41→20:36)
[2024-01-26] MEDS: POLYETHYLENE GLYCOL 3350 17 GM PACKET PO (13:14)
[2024-01-26] MEDS: BISACODYL 5MG TABLET 10 MG PO (13:15)
--- OUTSIDE RECORDS SUMMARY | 2024-01-26 15:00 | XMS_ITS ---
Laboratory report Created on: January 15, 2024 ABDULKADIR LOPEZ : 1940 Sex: Female Author Name ALEISHA CROOK Organization Unknown PROBLEMS Problems List Code Description I73.00 L40.50 M25.552 M47.816 M85.80 Z68.27 Z68.28 Z68.31 M19.049 RESULTS Laboratory Orders Date Order Code Test 2022-03-01 [id number] C-REACTIVE PROTE IN, QUANT 2022-03-01 765853 SEDIMENTATION RA TE-WESTERGREN 2022-03-01 [id number] CBC WITH DIFFERE NTIAL/PLATELET 2022-03-01 439674 COMP. METABOLIC PANEL (14) Laboratory Results Date LOINC Test Value Unit Reference Range Interpre tation 2022-03-01 1988-5 C-REACTIVE PROTE IN, QUANT 2 MG/L 0-10 2022-03-01 4537-7 SEDIMENTATION RATE-WESTERGREN 6 MM/HR 0-40 2022-03-01 6690-2 WBC 4.7 X10E3/UL 3.4-10.8 2022-03-01 789-8 RBC 3.72 X10E6/UL 3.77-5.28 L 2022-03-01 718-7 HEMOGLOBIN 12.2 G/DL 11.1-15.9 2022-03-01 4544-3 HEMATOCRIT 36.9 % 34.0-46.6 2022-03-01 787-2 MCV 99 FL 79-97 H 2022-03-01 785-6 MCH 32.8 PG 26.6-33.0 2022-03-01 786-4 MCHC 33.1 G/DL 31.5-35.7 2022-03-01 788-0 RDW 16 % 11.7-15.4 H 2022-03-01 777-3 PLATELETS 233 X10E3/UL 932-358 1336-01-12 770-8 NEUTROPHILS 42 % 2022-03-01 736-9 LYMPHS 32 % 2022-03-01 5905-5 MONOCYTES 15 % 2022-03-01 713-8 EOS 10 % 2022-03-01 706-2 BASOS 1 % 2022-03-01 751-8 NEUTROPHILS (ABSOLUTE) 2 X10E3/UL 1.4-7.0 2022-03-01 731-0 LYMPHS (ABSOLUTE) 1.5 X10E3/UL 0.7-3.1 2022-03-01 742-7 MONOCYTES(ABSOLUTE) .7 X10E3/UL 0.1-0.9 2022-03-01 711-2 EOS (ABSOLUTE) .5 X10E3/UL 0.0-0.4 H 2022-03-01 704-7 BASO (ABSOLUTE) 0 X10E3/UL 0.0-0.2 2022-03-01 60771-5 IMMATURE GRANULOCYTES 0 % 2022-03-01 09672-3 IMMATURE GRANS (ABS) 0 X10E3/UL 0.0-0.1 2022-03-01 2345-7 GLUCOSE 96 MG/DL 70-99 2022-03-01 3094-0 BUN 16 MG/DL 8-27 2022-03-01 2160-0 CREATININE 1.04 MG/DL 0.57-1.00 H 2022-03-01 93393-4 EGFR 54 ML/MIN/1.7 3 >59 L 2022-03-01 3097-3 BUN/CREATININE RATIO 15 02-142022-03-01 2951-2 SODIUM 142 MMOL/L 869-060 6744-01-12 2823-3 POTASSIUM 5.7 MMOL/L 3.5-5.2 H 2022-03-01 2075-0 CHLORIDE 106 MMOL/L 96-106 2022-03-01 2028-9 CARBON DIOXIDE, TOTAL 23 MMOL/L 2022-03-01 77941-5 CALCIUM 9.2 MG/DL 8.7-10.3 2022-03-01 2885-2 PROTEIN, TOTAL 6.8 G/DL 6.0-8.5 2022-03-01 1751-7 ALBUMIN 4.4 G/DL 3.6-4.6 2022-03-01 86430-4 GLOBULIN, TOTAL 2.4 G/DL 1.5-4.5 2022-03-01 1759-0 A/G RATIO 1.8 1.2-2.2 2022-03-01 1975-2 BILIRUBIN, TOTAL .3 MG/DL 0.0-1.2 2022-03-01 6768-6 ALKALINE PHOSPHATASE 63 IU/L 44-121 2022-03-01 1920-8 AST (SGOT) 24 IU/L 0-40 2022-03-01 1742-6 ALT (SGPT) 15 IU/L 0-32
--- OUTSIDE RECORDS SUMMARY | 2024-01-26 15:00 | XMS_ITS ---
Laboratory report Created on: December 26, 2023 ABDULKADIR LOPEZ : 1940 Sex: Female Author Organization Unknown PROBLEMS Problems List Code Description RESULTS Laboratory Orders Date Order Code Test 2023-05-17 [id number] PETERS FIBROSURE(R ) PLUS Laboratory Results Date LOINC Test Value Unit Reference Range Interpre tation 2023-05-17 41765-0 FIBROSIS SCORE .34 0.00-0.21 H 2023-05-17 49260-8 FIBROSIS STAGE F1F2 2023-05-17 98073-7 STEATOSIS SCORE .5 0.00-0.40 H 2023-05-17 46362-3 STEATOSIS GRADE S1NASH 2023-05-17 25758-2 PETERS SCORE .76 0.00-0.25 H 2023-05-17 29542-7 PETERS GRADE N3NASH 2023-05-17 1835-8 ALPHA 2-MACROGLOBULINS, QN 222 MG/DL 141-982 2363-03-29 4542-7 HAPTOGLOBIN 71 MG/DL 41-333 2023-05-17 1869-7 APOLIPOPROTEIN A-1 119 MG/DL 206-758 1053-03-29 1975-2 BILIRUBIN, TOTAL .2 MG/DL 0.0-1.2 2023-05-17 2324-2 GGT 17 IU/L 0-60 2023-05-17 1743-4 ALT (SGPT) P5P 39 IU/L 0-40 2023-05-17 30286-6 AST (SGOT) P5P 41 IU/L 0-40 H 2023-05-17 2093-3 CHOLESTEROL, TOTAL 107 MG/DL 897-267 5103-03-29 2345-7 GLUCOSE, SERUM 87 MG/DL 70-99 2023-05-17 2571-8 TRIGLYCERIDES 93 MG/DL 0-149
--- OUTSIDE RECORDS SUMMARY | 2024-01-26 15:00 | XMS_ITS ---
Laboratory report Created on: December 21, 2023 ABDULKADIR LOPEZ : 1940 Sex: Female Author Name GRAZYNA DOWELL Organization Unknown PROBLEMS Problems List Code Description I48.0 M47.816 M19.90 RESULTS Laboratory Orders Date Order Code Test 2022-07-27 [id number] FREE K+L LT STEVEN NS,QN,S 2022-07-27 554460 PREALBUMIN Laboratory Results Date LOINC Test Value Unit Reference Range Interpre tation 2022-07-27 29402-4 FREE KAPPA LT CHAINS,S 27.8 MG/L 3.3-19 .4 H 2022-07-27 86957-4 FREE LAMBDA LT CHAINS,S 19.3 MG/L 5.7-2 6.3 2022-07-27 81313-1 KAPPA/LAMBDA RATIO,S 1.44 0.26-1.6 5 2022-07-27 25562-8 PREALBUMIN 24 MG/DL 9-32
--- OUTSIDE RECORDS SUMMARY | 2024-01-26 15:00 | XMS_ITS ---
Laboratory report Created on: January 15, 2024 ABDULKADIR LOPEZ : 1940 Sex: Female Author Name ROLAND FARRELL [employer] Unknown PROBLEMS Problems List Code Description M47.816 M81.0 M85.80 M19.049 RESULTS Laboratory Orders Date Order Code Test 2021-11-28 [id number] VITAMIN D, 25-HY DROXY Laboratory Results Date LOINC Test Value Unit Reference Range Interpre tation 2021-11-28 28068-1 VITAMIN D, 25-HYDROXY 61.2 NG/ML 30.0-10 0.0
--- OUTSIDE RECORDS SUMMARY | 2024-01-26 15:00 | XMS_ITS ---
Author Name Axel Marie Address [address] [place] [id number] Organization Unknown Address [address] [place] [id number] ALLERGIES AND ADVERSE REACTIONS No information ASSESSMENT No information CHIEF COMPLAINT No information MEDICATIONS No information OBJECTIVE DATA No information PHYSICAL EXAMINATION No information TREATMENT PLAN Planned Care Start Date Provider Encounter for Check-up [id number] [facility] PROBLEMS No information RESULTS No information REVIEW OF SYSTEMS No information SUBJECTIVE DATA No information VITAL SIGNS No information
--- OUTSIDE RECORDS SUMMARY | 2024-01-26 15:00 | XMS_ITS ---
Laboratory report Created on: December 31, 2023 JOHN ABDULKADIR : 1940 Sex: Female Author Organization Unknown PROBLEMS Problems List Code Description RESULTS Laboratory Orders Date Order Code Test 2023-05-10 [id number] ACUTE HEPATITIS Laboratory Results Date LOINC Test Value Unit Reference Range Interpre tation 2023-05-10 76121-7 HEP A AB, IGM N NEGATIVE 2023-05-10 5196-1 HBSAG SCREEN N NEGATIVE 2023-05-10 12457-8 HEP B CORE AB, IGM N NEGATIVE 2023-05-10 61542-7 HCV AB NR NON REACTIVE
--- OUTSIDE RECORDS SUMMARY | 2024-01-26 15:01 | XMS_ITS | Encounter Summary ---
Author Organization [facility] Address [address] [place] [address] Care Team Providers Care Roving Can Tender Name Role Phone Christi Estebanaki COLBY Primary Care Provider + [phone] Atif Fung APRN Unavailable [phone] Reason for Referral * Echocardiography (Routine) - Closed Specialty Diagnoses / Procedures Referred By Contac t Referred To Contact Cardiology Diagnoses Shortness of breath Procedures ECHO COMPLETE (DOPPLER / COLOR) W OR WO CONTRAST Atif Fung APRN [address] [place] [address] [address] [place] [address] Phone: tel: fax: [facility] Non-Invasive Cardiology [address] [place] [phone] Phone: tel: fax: Referral ID Status Reason Start Date Expiration Date Visits Re quested Visits Authorized [id number] Closed 06/06/2023 06/05/2024 1 1 Encounter Details Date Type Department Care Team (Late st Contact Info) Description 06/06/2023 2:30 PM EDT Office Visit [facility] Cardiology [address] [place] [address] [address] [place] [id number] Atif Fung APRN [address] [facility] [address] [place] [address] Shortness of breath (Primary Dx); Arteriosclerosis of coronary artery; Primary hypertension; Paroxysmal atrial fibrillation (HCC); Mixed hyperlipidemia; Wild-type transthyretin-relate d (ATTR) amyloidosis (HCC) Social History Tobacco Use Types Packs/Day Years Used Date Smoking Tobacco: Never Smokeless Tobacco: Never Alcohol Use Standard Drinks/Week Comments Never 0 (1 standard drink = 0.6 oz pur e alcohol) PRAPARE - Transportation Answer Date Re corded In the past 12 months, has l ack of transportation kept you from medical appointments or from getting medications? No 06/22/2022 Lack of Transportation (Non-Medical) Not on file 06/22/2022 Housing Stability Vital Sign Answer Amrit e Recorded In the last 12 months, was t here a time when you were not able to pay the mortgage or rent on time? No 06/22/2022 In the last 12 months, how many places have you lived? 1 06/22/2022 In the last 12 months, was t here a time when you did not have a steady place to sleep or slept in a long term (including now)? No 06/22/2022 Interpersonal Safety Answer Date Record ed Family or friends hurt you Not on file 03/08 Family or friends insult you Not on file Family or friends threaten you Not on file 0 03/08/2023 Family or friends scream or curse at you Not on file 03/08/2023 Housing Stability Answer Date Recorded Living situation today Not on file Living situation problems Not on file 2023 Family and Community Support Answer Amrit e Recorded Help with Day to Day Activities Not on file 03/08/2023 Feeling Lonely or Isolated Not on file 03/08 Educational Attainment Answer Date Leopoldo rded Speak language other than Ukrainian at home Not on file 03/08/2023 Want help with school or training Not on file 03/08/2023 Depression Answer Date Recorded PHQ-2 Risk Not on file 03/08/2023 Disabilities Answer Date Recorded Difficulty concentrating Not on file 024 Difficulty doing errands alone Not on file 0 03/08/2023 Substance Use Answer Date Recorded Used prescription meds for non-medical reasons N ot on file 03/08/2023 Used illegal drugs past 12 months Not on file 03/08/2023 Comments No Sex and Gender Information Value Date Recorded Sex Assigned at Not on file Legal Sex Female 5:40 PM CDT Gender Identity Not on file Sexual Orientation Not on file documented as of this encounter Last Filed Vital Signs Vital Sign Reading Time Taken Comments Blood Pressure 120/70 06/06/2023 2:33 PM EDT Pulse 68 06/06/2023 2:33 PM EDT Temperature - - Respiratory Rate - - Oxygen Saturation - - Inhaled Oxygen Concentration - - Weight 67.6 kg (149 lb) 06/06/2023 2:33 PM EDT Height 160 cm (5' 3 ) 06/06/2023 2:33 PM EDT Body Mass Index 26.39 06/06/2023 2:33 PM EDT documented in this encounter Functional Status * Are you deaf or do you have serious difficulty hearing? Answer Date of Assessment Author No 12/17/2021 2:07 PM CDT Stas Betancourt RN * Are you blind or do you have serious difficulty seeing, even when wearing glasses? Answer Date of Assessment Author No 12/17/2021 2:07 PM CDT Stas Betancourt RN * Do you have serious difficulty walking or climbing stairs? Answer Date of Assessment Author Yes 12/17/2021 2:07 PM CDT Stas Betancourt RN * Do you have serious difficulty dressing or bathing? Answer Date of Assessment Author No 12/17/2021 2:07 PM CDT Stas Betancourt RN * Because of a physical, mental, or emotional condition, do you have serious difficulty doing errandsalone such as visiting the doctor? Answer Date of Assessment Author No 12/17/2021 2:07 PM FRANCIT Stas Betancourt RN documented as of this encounter Mental Status * Because of a physical, mental, or emotional condition, do you have serious difficulty concentrating, remembering, or making decisions? (5 years old or older) Answer Entry Date Author No 12/17/2021 2:07 PM Stas Deal RN documented in this encounter Progress Notes * Atif Fung APRN - 06/06/2023 2:30 PM EDT CARDIOLOGY FOLLOW UP EVALUATION Date of Service: 06/10/2023 NAME: Chen Merritt : 1940 AGE: 82 y.o. PCP: Geeta Esteban APRN Chief Complaints Worsening fatigue History of Present Illness Chen Merritt is an exceptionally pleasant 82-year-old female with a known history of atherosclerotic cardiovascular disease with history of coronary bypass grafting as well as PCI most recentbeing May 2022, hypertension, dyslipidemia, cardiac amyloidosis, paroxysmal atrial fibrillation, venous insufficiency, and chronic back pain who presents clinic for follow-up. She tells me overall she just feels poorly. Her primary complaint is persistent and worsening fatigue with associated mild shortness of air. She has no complaints of dizziness, palpitations, or syncope. She does tell me she was recently diagnosed with significant anemia and was started on iron. She otherwise has no complaints. Review of Systems Review of Systems Constitutional: Positive for malaise/fatigue. HENT: Negative. Eyes: Negative. Respiratory: Positive for shortness of breath. Cardiovascular: Negative. Gastrointestinal: Negative. Genitourinary: Negative. Musculoskeletal: Negative. Skin: Negative. Neurological: Negative. Endo/Heme/Allergies: Negative. Psychiatric/Behavioral: Negative. All other systems reviewed and are negative. Current Medications Current Outpatient Medications Medication Sig Dispense Refill ??? denosumab (Prolia) 60 mg/mL Syrg Inject 1 mL (60 mg total) subcutaneously. ??? tafamidis (Vyndamax) 61 mg Cap Take 61 mg by mouth. ??? aspirin 81 MG EC tablet Take 1 tablet (81 mg total) by mouth in the morning. ??? atorvastatin (LIPITOR) 40 MG tablet Take 1 tablet (40 mg total) by mouth nightly. ??? calcium phosphate-vitamin D3 250 mg-12.5 mcg (500 unit) Chew Take 1 tablet by mouth in the morning and 1 tablet before bedtime. ??? cetirizine (ZyrTEC) 10 MG tablet Take 1 tablet (10 mg total) by mouth in the morning. ??? cholecalciferol (VITAMIN D3) 25 mcg (1,000 unit) tablet Take 1 tablet (1,000 Units total) by mouth in the morning. ??? diclofenac 1 % Gel Apply 2 g topically 4 (four) times daily as needed (for Pain). ??? dilTIAZem (CARDIZEM CD) 180 MG 24 hr capsule Take 1 capsule (180 mg total) by mouth in the morning. ??? docusate sodium (COLACE) 100 MG capsule Take 2 capsules (200 mg total) by mouth in the morning and 2 capsules (200 mg total) before bedtime. ??? ferrous sulfate (iron) 325 (65 FE) MG tablet Take 1 tablet (325 mg total) by mouth daily. ??? folic acid (FOLVITE) 1 MG tablet Take 1 tablet (1 mg total) by mouth in the morning. Take everyday except on the day of methotrexate. ??? methotrexate 2.5 MG tablet Take 8 tablets (20 mg total) by mouth once a week. ??? metoprolol tartrate (LOPRESSOR) 25 MG tablet Take 1 tablet (25 mg total) by mouth 2 (two) timesdaily. ??? edsqdjoy-gva-BM-lycopen-lutein (Centrum Silver) 0.4 mg-300 mcg- 250 mcg Tab Take 1 tablet by mouth daily . ??? pantoprazole (PROTONIX) 40 MG tablet Take 1 tablet (40 mg total) by mouth in the morning. ??? pregabalin (LYRICA) 50 MG capsule Take 2 capsules (100 mg total) by mouth 2 (two) times daily. Max Daily Amount: 200 mg No current facility-administered medications for this visit. Physical Exam Physical Exam Constitutional: No distress. She appears chronically ill. HENT: Mouth/Throat: Oropharynx is clear. Eyes: Pupils are equal, round, and reactive to light. Cardiovascular: Normal rate, regular rhythm, S1 normal, S2 normal, normal heart sounds, intact distal pulses and normal pulses. Pulmonary/Chest: Effort normal and breath sounds normal. She has no wheezes. She exhibits no tenderness. Abdominal: Soft. Bowel sounds are normal. Musculoskeletal: General: Normal range of motion. Cervical back: Normal range of motion and neck supple. Comments: Wheelchair for mobility Neurological: She is alert and oriented to person, place, and time. Skin: Skin is warm and dry. Vitals Vitals: 06/06/23 1433 BP: 120/70 Pulse: 68 Assessment 1. Shortness of breath ECHO COMPLETE (DOPPLER / COLOR) W OR WO CONTRAST ECG 12 lead 2. Arteriosclerosis of coronary artery 3. Primary hypertension 4. Paroxysmal atrial fibrillation (HCC) 5. Mixed hyperlipidemia 6. Wild-type transthyretin-related (ATTR) amyloidosis (HCC) * Chronic fatigue--worsening * Coronary artery disease: RIVERA patent --All SVG occluded A. Successful balloon angioplasty and stenting of subtotal occlusion of proximal circumflex heavily calcified lesion 99% reduced to 10% -predilated nwith shockwave balloon3.5 and treated with [place] 3.5 x 15 drug-eluting stent (05/2022) B. 05/2008: posterior STEMI with PTCA of CX; MVCAD leading to subsequent CABG. * Cardiac amyloid * Atrial fibrillation, paroxysmal: No s/s of recurrence since 2012. Low arrhythmia burden based on history. H/O Post-Op A-fib in 2008 after surgery and 2012 after Bladder and hysterectomy surgery. * Dyslipidemia: * Hypertension:. * Venous Insufficiency with edema. * Chronic low back pain. Spinal stenosis. Plan Echocardiogram No change to current medical therapy at this time Lipids per primary Follow-up with amyloid clinic as scheduled Heart failure education discussed Thorough review of all available records performed prior to examination Follow-up in 3 months or sooner if needed pending echo results Orders Placed This Encounter Procedures ??? ECG 12 lead Order Specific Question: Reason for ECG: Answer: Shortness of breath ??? ECHO COMPLETE (DOPPLER / COLOR) W OR WO CONTRAST Standing Status: Future Standing Expiration Date: 12/05/2024 Order Specific Question: Reason for exam: Answer: Shortness of breath Order Specific Question: Indications Answer: Shortness of Breath Return in about 3 months (around 09/05/2023) for Next Scheduled Follow Up. Past Medical History Past Medical History: Diagnosis Date ??? Arthritis ??? Coronary artery disease ??? Hyperlipidemia ??? Hypertension ??? Lumbar spondylolysis ??? VT (myocardial infarction) (HCC) ??? Osteopenia ??? Psoriatic arthritis (HCC) ??? Psoriatic arthritis (HCC) Past Surgical History Past Surgical History: Procedure Laterality Date ??? CHOLECYSTECTOMY ??? HYSTERECTOMY ??? LAMINECTOMY,LUMBAR Left 06/12/2022 Procedure: (LT L5-S1 FACETECTOMY AND NEUROFORAMINOTOMY; Surgeon: Edith Morse MD; Location: [facility] OR; Service: Neurosurgery; Laterality: Left; [place] 0800,1.5HRS(R) ??? LAMINECTOMY,LUMBAR W/FUSION N/A 12/14/2021 Procedure: L3-5, L5-S1 FUSION AND DECOMPRESSION AUGMENTATION WITH ZIEHM; Surgeon: Edith Morse MD; Location: [facility] OR; Service: Neurosurgery; Laterality: N/A; [place] 0830. 3 HRS (R). PASS. AIRO. PRE CERT STARTED, ??? open heart 2008 4 bypass Allergies Allergies Allergen Reactions ??? Ticagrelor Shortness Of Breath and Other (See Comments) Generalized edema Other reaction(s): Other - please document in the comment field Generalized edema ??? Amoxicillin Itching and Rash ??? Claritin [Loratadine] Rash ??? Macrobid [Nitrofurantoin Monohyd/M-Cryst] ??? Codeine Other reaction(s): Unknown - Patient states they do not know rxn details ??? Morphine Other reaction(s): Other - please document in the comment field ??? Nitrofurantoin Rash Other reaction(s): Hives ??? Sulfa (Sulfonamide Antibiotics) Other reaction(s): Other - please document in the comment field ??? Sulfamethoxazole-Trimethoprim Diarrhea Social History Social History Tobacco Use ??? Smoking status: Never ??? Smokeless tobacco: Never Substance Use Topics ??? Alcohol use: Never ??? Drug use: Never Procedures CARDIAC CATH - LEFT HEART CATH W/ POSSIBLE INTERVENTION ?? Coronary anatomy -Left main mild 20 to 30% ostial tapering. Bifurcates properly to LAD and circumflex. -LAD-LAD is occluded after the takeoff of septal 1 branch. No reconstitution of the distal LAD notable via left to left collaterals -Circumflex-the circumflex leads into a large OM branch which supplies a very large distribution ofthe lateral wall. Proximal portion of the circumflex reveals a heavily calcified boulder like lesion of around 90%. There is SHEELA-3 flow noted through the circumflex. In the midportion of said circumflex there is about a 50% lesion notable. -RCA-the RCA is a very tortuous vessel. It provides a PDA and a moderate-sized PL system. There is an eccentric rat-bite lesion of around 75% just before the takeoff of the PDA. SHEELA-3 flow was noted through that the RCA distribution. ?? -Vein graft 1 2 and 3 are occluded as demonstrated by angiography -RIVERA to the LAD-the RIVERA is intact. The anastomosis distally is intact. ?? Successful balloon angioplasty and stenting of subtotal occlusion of proximal circumflex heavily calcified lesion 99% reduced to 10% -predilated nwith shockwave balloon3.5 and treated with [place] 3.5 x 15 drug-eluting stent documented in this encounter Plan of Treatment Scheduled Orders Name Type Priority Associated Diagnoses Orde r Schedule ECG 12 lead ECG Routine Shortness of breath Ordered: 06/10/2023 documented as of this encounter Results * ECHO COMPLETE (DOPPLER / COLOR) WO CONTRAST (06/18/2023 2:31 PM EDT) Anatomical Region Laterality Modality Heart Vascular Ultraso und 06/18/2023 1:19 PM EDT Narrative 06/18/2023 5:12 PM EDT TRANSTHORACIC ECHOCARDIOGRAPHY REPORT Demographics Patient Name: ? JOHN Mallory ?: ? 1940 ?Age: ? 82 year(s) Corporate ID Number: ?[id number] ?Gender ?? Female Lease Attendant: ?Carroll Baez RVT ?Height: ??63 inches ? ,RDCS Referring Physician: ?ATIF FUNG ?Weight: ??149.01 pounds Interpreting Physician: KRISTINE SIMMONS MD ?BMI: ? 26.4 kg/m^2 Date of Service: ?06/18/2023 Type of Study: TTE procedure: ECHO COMPLETE (DOPPLER / COLOR) W OR WO CONTRAST. Study Location: Echo LabTechnical Quality: Adequate visualization Allergies ??- Bactrim. ??- Morphine:(claritin). ??- Sulfa. Impression: Indication: Shortness of breath R06.02 ######################################## Normal sized left ventricle. Mild left ventricular hypertrophy. Visually estimated ejection fraction 55% +/- 5%. Abnormal systolic strain pattern. Increased left atrial pressure (Grade II diastolic dysfunction). Abnormal TAPSE; abnormal right ventricular function. Moderate (2+) mitral regurgitation. Moderate (2+) tricuspid regurgitation. ######################################## Measurements Summary: LVEDd: 4.46 cm ? LVESd: 3.11 cm ?IVSEd: 1.24 cm AO Root:3.23 cm ?LVPWd: 0.96 cm Contractility Score Normal Left Ventricular contractility was noted. LV regional wall motion: (0-Not visualized 1-Normal 2-Hypokinesis 3-Akinesis 4-Dyskinesis 5-Aneurysm) Left Ventricle Peak E-wave: 1.2 ?Peak A-wave: 0.96 m/s ?? E/A ratio: 1.26 m/s ? Volume [id number] ?? LV length: 7.2 cm ml Volume uhzdlptk18.72 ml LVOT diameter: 1.92 cm Normal sized left ventricle. Mild left ventricular hypertrophy. Visually estimated ejection fraction 55% +/- 5%. Abnormal systolic strain pattern. Increased left atrial pressure (Grade II diastolic dysfunction). No left ventricular masses or thrombi. Right Ventricle Diastolic dimension: 4.28 ? RV systolic pressure: 41.41 mmHg cm Dilated right ventricle. Abnormal TAPSE; abnormal right ventricular function. Left Atrium LA dimension: 4.23 cm ? LA volume:77.22 ml LA/Aorta: 1.31 Abnormal left atrial volume index 45ml/m2. Intact atrial septum. No atrial mass or thrombus. Right Atrium Normal sized right atrium. Intact atrial septum. No atrial mass or thrombus. Mitral Valve Deceleration time: 221.25 msec Structurally normal mitral valve. Mitral valve annulus calcification. Moderate (2+) mitral regurgitation. No mitral stenosis. No masses or vegetations seen. Aortic Valve LVOT VTI: 17.81 cm Sclerotic aortic valve leaflets. No aortic regurgitation. No aortic stenosis. No masses or vegetations seen. Tricuspid Valve TR velocity: 3.1 m/s ?TR gradient: 38.81874 mmHg Estimated RAP: 3 mmHg ? RVSP: 41.41 mmHg Structurally normal tricuspid valve. Moderate (2+) tricuspid regurgitation. Mild pulmonary hypertension. No tricuspid stenosis. No masses or vegetations seen. Pulmonic Valve Acceleration time: 128.03 msec ?PASP: 41.41 mmHg Structurally normal pulmonic valve. Mild (1+) pulmonic valve regurgitation. No pulmonic stenosis. No masses or vegetations seen. Great Vessels Aorta Aortic Root: 3.23 cm LVOT Diameter: 1.92 cm Visualized aorta is normal. Normal aortic root. No evidence of dissection. Normal IVC with appropriate collapse. Pericardium / Pleura No pericardial effusion. Procedure Note Kristine Simmons MD - 06/18/2023 TRANSTHORACIC ECHOCARDIOGRAPHY REPORT Demographics Patient Name: JOHN Mallory : 1940 Age: 82 year(s) Corporate ID Number: [id number] Gender Female Lease Attendant: Carroll Baez Ene Height: 63 inches ,[facility] Referring Physician: ATIF FUNG Weight: 149.01pounds Interpreting Physician: KRISTINE SIMMONS MD BMI: 26.4 kg/m^2 Date of Service: 06/18/2023 Type of Study: TTE procedure: ECHO COMPLETE (DOPPLER / COLOR) W OR WO CONTRAST. Study Location: Echo LabTechnical Quality: Adequate visualization Allergies - Bactrim. - Morphine:(claritin). - Sulfa. Impression: Indication: Shortness of breath R06.02 ######################################## Normal sized left ventricle. Mild left ventricular hypertrophy. Visually estimated ejection fraction 55% +/- 5%. Abnormal systolic strain pattern. Increased left atrial pressure (Grade II diastolic dysfunction). Abnormal TAPSE; abnormal right ventricular function. Moderate (2+) mitral regurgitation. Moderate (2+) tricuspid regurgitation. ######################################## Measurements Summary: LVEDd: 4.46 cm LVESd: 3.11 cm IVSEd: 1.24 cm AO Root:3.23 cm LVPWd: 0.96 cm Contractility Score Normal Left Ventricular contractility was noted. LV regional wall motion: (0-Not visualized 1-Normal 2-Hypokinesis 3-Akinesis 4-Dyskinesis 5-Aneurysm) Left Ventricle Peak E-wave: 1.2 Peak A-wave: 0.96 m/s E/A ratio: 1.26 m/s Volume [id number] LV length: 7.2 cm ml Volume kngdbadu57.72 ml LVOT diameter: 1.92 cm Normal sized left ventricle. Mild left ventricular hypertrophy. Visually estimated ejection fraction 55% +/- 5%. Abnormal systolic strain pattern. Increased left atrial pressure (Grade II diastolic dysfunction). No left ventricular masses or thrombi. Right Ventricle Diastolic dimension: 4.28 RV systolic pressure: 41.41 mmHg cm Dilated right ventricle. Abnormal TAPSE; abnormal right ventricular function. Left Atrium LA dimension: 4.23 cm LA volume:77.22 ml LA/Aorta: 1.31 Abnormal left atrial volume index 45ml/m2. Intact atrial septum. No atrial mass or thrombus. Right Atrium Normal sized right atrium. Intact atrial septum. No atrial mass or thrombus. Mitral Valve Deceleration time: 221.25 msec Structurally normal mitral valve. Mitral valve annulus calcification. Moderate (2+) mitral regurgitation. No mitral stenosis. No masses or vegetations seen. Aortic Valve LVOT VTI: 17.81 cm Sclerotic aortic valve leaflets. No aortic regurgitation. No aortic stenosis. No masses or vegetations seen. Tricuspid Valve TR velocity: 3.1 m/s TR gradient: 38.49825 mmHg Estimated RAP: 3 mmHg RVSP: 41.41 mmHg Structurally normal tricuspid valve. Moderate (2+) tricuspid regurgitation. Mild pulmonary hypertension. No tricuspid stenosis. No masses or vegetations seen. Pulmonic Valve Acceleration time: 128.03 msec PASP: 41.41 mmHg Structurally normal pulmonic valve. Mild (1+) pulmonic valve regurgitation. No pulmonic stenosis. No masses or vegetations seen. Great Vessels Aorta Aortic Root: 3.23 cm LVOT Diameter: 1.92 cm Visualized aorta is normal. Normal aortic root. No evidence of dissection. Normal IVC with appropriate collapse. Pericardium / Pleura No pericardial effusion. Atif Fung APRN CV ECHO ORDERABLES Final R esult documented in this encounter Visit Diagnoses Diagnosis Shortness of breath- Primary Arteriosclerosis of coronary artery Primary hypertension Unspecified essential hypertension Paroxysmal atrial fibrillation (HCC) Atrial fibrillation Mixed hyperlipidemia Wild-type transthyretin-related (ATTR) amyloidosis (HCC) Shortness of breath documented in this encounter Care Teams Roving Can Tender Relationship Specialty Start Date End Date Geeta Esteban APRN [address] [id number] PCP - General Nurse Practitioner 06/06/23 Atif Fung APRN [address] [facility] [address] [place] [id number] Nurse Practitioner Cardiology 06/06/23 documented as of this encounter
--- OUTSIDE RECORDS SUMMARY | 2024-01-26 15:01 | XMS_ITS | Referral Summary ---
Author Organization [employer] Address [address] [place] [address] Care Team Providers Care Pie Chef Name Role Phone Esteban Geeta COLBY Primary Care Provider + [phone] Sumanth Laureano APRN Unavailable [phone] Encounters Date Type Department Care Team Description 10/30/2023 Telephone [facility] Cardiology [address] [place] [address] Sumanth Laureano APRN Advice Only from Last 3 Months Allergies Active Allergy Reactions Criticality Noted Date Comments Amoxicillin Itching,Rash Medium 11/15/2022 Loratadine Rash Medium 06/11/2022 Codeine Low 09/13/2022 Other reaction(s): Unknown - Patient states they do not know rxn details Nitrofurantoin Monohyd/M-Cryst 12/14/2021 Morphine Low 12/14/2021 Other reaction(s): Other - please document in the comment field Nitrofurantoin Rash Low 12/03/2012 Other reaction(s): Hives Sulfa (Sulfonamide Antibiotics) Low 12/14/2021 Other reaction(s): Other - please document in the comment field Sulfamethoxazole-Trimetho prim Diarrhea Low 12/14/2021 Ticagrelor Shortness Of Breath,Other (See Comments) High 06/14/2022 Generalized edema Other reaction(s): Other - please document in the comment field Generalized edema Medications methotrexate 2.5 MG tablet Take 8 tablets (20 mg total) by mouth once a week. 2 Active folic acid (FOLVITE) 1 MG tablet Take 1 tablet (1 mg total) by mouth daily Take everyday except on the day of methotrexate. 2 Active aspirin 81 MG EC tablet Take 1 tablet (81 mg total) by mouth daily. Active atorvastatin (LIPITOR) 40 MG tablet Take 1 tablet (40 mg total) by mouth nightly. Active pantoprazole (PROTONIX) 40 MG tablet Take 1 tablet (40 mg total) by mouth daily. Active diclofenac 1 % Gel Apply 2 g topically 4 (four) times daily as needed (for Pain). 2 Active hatyboel-rkc-LI -lycopen-lutein (Centrum Silver) 0.4 mg-300 mcg- 250 mcg Tab Take 1 tablet by mouth daily . Active docusate sodium (COLACE) 100 MG capsule Take 2 capsules (200 mg total) by mouth 2 (two) times daily. Active cholecalciferol (VITAMIN D3) 25 mcg (1,000 unit) tablet Take 1 tablet (1,000 Units total) by mouth daily. Active cetirizine (ZyrTEC) 10 MG tablet Take 1 tablet (10 mg total) by mouth daily. Active calcium phosphate-vitam in D3 250 mg-12.5 mcg (500 unit) Chew Take 1 tablet by mouth in the morning and 1 tablet before bedtime. Active metoprolol tartrate (LOPRESSOR) 25 MG tablet Take 1 tablet (25 mg total) by mouth 2 (two) times daily. 4 Active pregabalin (LYRICA) 50 MG capsule Take 2 capsules (100 mg total) by mouth 2 (two) times daily. 4 Active ferrous sulfate (iron) 325 (65 FE) MG tablet Take 1 tablet (325 mg total) by mouth daily. Active denosumab (Prolia) 60 mg/mL Syrg Inject 1 mL (60 mg total) subcutaneously . 3 Active dilTIAZem (CARDIZEM CD) 180 MG 24 hr capsule Take 1 capsule (180 mg total) by mouth daily. 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 12/14/2021 Low back pain 11/17/2020 06/10/2023 Intervertebral disc disorder 11/17/2020 Spinal stenosis of lumbar region 11/17/2020 06/10/2023 Arteriosclerosis of coronary artery 08/17/2020 Hyperlipidemia 08/17/2020 Hypertension 08/17/2020 Paroxysmal atrial fibrillation 08/17/2020 Osteopenia 10/23/2017 Lumbar spondylosis 10/23/2017 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 No 06/22/2022 Interpersonal Safety Answer [...] Date Leopoldo rded Speak language other than Hong Konger at home Not on file 03/08/2023 Want [...] on file Sexual Orientation Not on file Last Filed Vital Signs Vital Sign Reading Time Taken Comments Blood Pressure 138/78 09/16/2023 1:37 PM EDT Pulse 63 09/16/2023 1:37 PM EDT Temperature 36.5 ??C (97.7 ??F) 06/28/2022 8:49 AM ED T Respiratory Rate 15 06/28/2022 1:56 AM EDT Oxygen Saturation 97% 09/16/2023 1:37 PM EDT Inhaled Oxygen Concentration - - Weight 70.3 kg (155 lb) 09/16/2023 1:37 PM EDT Height 160 cm (5' 3 ) 09/16/2023 1:37 PM EDT Body Mass Index 27.46 09/16/2023 1:37 PM EDT Functional Status * Are you deaf or [...] 12/17/2021 2:07 PM FRANCIT Stas Betancourt RN Mental Status * Because of a physical, mental, or emotional condition, do you have serious difficulty concentrating, remembering, or making decisions? (5 years old or older) Answer Entry Date Author No 12/17/2021 2:07 PM Stas Deal RN Plan of Treatment Not on file Medical Devices Implanted Type Area Refrigeration Person Device Identifier Shelf Expiration Date Model / Serial / Lot Matrix Fibergraft 12.5cc 2870-2396 - [id number] Implanted:Qty: 1 on 12/14/2021 by Edith Morse MD at [facility] IMPLANTS N/A: Back J &J:DEPUY:DEPUY SPINE 11/24/2023 [id number] / / [id number] Bone Fibers 5.0cc Pliafx Crtcl Bl-1800-05 - [id number] Implanted:Qty: 1 on 12/14/2021 by Edith Morse MD at [facility] IMPLANTS N/A: Back LIFENET:LIFENET TRANSPLANT SRV 04/30/2026 BL-1800-05 / / [id number] Bone Vivigen Formable Cell 5cc Bl-1600-002 - [id number] Implanted:Qty: 1 on 12/14/2021 by Edith Morse MD at [facility] IMPLANTS N/A: Back LIFENET:LIFENET TRANSPLANT SRV 11/24/2022 BL-1600-002 / / [id number] Cement Spinal Confidence - [id number] Implanted:Qty: 1 on 12/14/2021 by Edith Morse MD at [facility] IMPLANTS N/A: Back J &J:DEPUY:DEPUY SPINE 08/18/2023 [id number] / / [id number] Screw Vpr Poly 6x50mm 60450 - [id number] Implanted:Qty: 4 on 12/14/2021 by Edith Morse MD at [facility] IMPLANTS N/A: Back J &J:DEPUY:DEPUY SPINE [id number] / [id number] / Imp Vpr Prm Cfxfen Xtab 6x45mm [id number] - [id number] Implanted:Qty: 2 on 12/14/2021 by Edith Morse MD at [facility] IMPLANTS N/A: Back J &J:DEPUY:DEPUY SPINE [id number] / [id number] / Mis Linda Ply Scrw Set Ti - [id number] Implanted:Qty: 6 on 12/14/2021 by Edith Morse MD at [facility] IMPLANTS N/A: Back J &J:DEPUY:DEPUY SPINE / / [place] [address] MEDICARE PART A B [facility] SUPP Advance Directives For more information, please contact: [phone] * Full Code (Latest Code Status on File) Date Activated Date Inactivated Comments 06/13/2022 12:35 PM 06/28/2022 6:03 PM * Full Code Date Activated Date Inactivated Comments 06/10/2022 7:49 AM 06/13/2022 12:35 PM Care Teams Pie Chef Relationship Specialty Start Date End Date Geeta Esteban APRN [address] [address] PCP - General Nurse Practitioner 06/06/23 Sumanth Laureano APRN [address] [address] Nurse Practitioner Cardiology 06/06/23
--- OUTSIDE RECORDS SUMMARY | 2024-01-26 15:01 | XMS_ITS | Encounter Summary ---
Author Organization [employer] Address [address] [place] [address] Care Team Providers Care Cotton Classer Aide Name Role Phone Carlito Geeta COLBY Primary Care Provider + [phone] Sumanth Laureano APRN Unavailable [phone] Encounter Details Date Type Department Care Team (Late st Contact Info) Description 06/18/2023 Orders Only [facility] Cardiology [address] [facility] [address] [place] [address] Humble Augustine, GAIL Paroxysmal atrial fibrillation (HCC) (Primary Dx) Social History Tobacco Use Types Packs/Day Years [...] place to sleep or slept in a nursing home (including now)? No 06/22/2022 Interpersonal Safety Answer [...] Date Leopoldo rded Speak language other than Beninese at home Not on file 03/08/2023 Want [...] on file documented as of this encounter Functional Status * Are you [...] 12/17/2021 2:07 PM CDT Stas Betancourt RN documented as of this encounter Mental Status * Because of a physical, mental, or emotional condition, do you have serious difficulty concentrating, remembering, or making decisions? (5 years old or older) Answer Entry Date Author No 12/17/2021 2:07 PM CDT Stas Betancourt RN documented in this encounter Plan of Treatment Not on file documented as of this encounter Procedures Procedure Name Priority Date/Time Associated Diagnosis Comments FS_MODEL_IP_ECG 12-LEAD Routine 06/18/2023 7:57 AM EDT Paroxysmal atrial fibrillation (HCC) documented in this encounter Results * ECG 12 lead (06/18/2023 7:57 AM EDT) Sumanth Laureano APRN ECG ORDERABLES Final Resu lt documented in this encounter Visit Diagnoses Diagnosis Paroxysmal atrial fibrillation (HCC)- Primary Atrial fibrillation documented in this encounter Care Teams Cotton Classer Aide Relationship Specialty Start Date End Date Geeta Esteban APRN [address] [place] [address] PCP - General Nurse Practitioner 06/06/23 Sumanth Laureano APRN [address] [facility] [address] [place] [address] Nurse Practitioner Cardiology 06/06/23 documented as of this encounter
--- OUTSIDE RECORDS SUMMARY | 2024-01-26 15:01 | XMS_ITS | Encounter Summary ---
Author Organization [employer] Address [address] [place] [address] Care Team Providers Care Cna Hospice Name Role Phone EstebanLillieGeetalizette COLBY Primary Care Provider [phone] Sumanth Laureano APRN Unavailable [phone] Reason for Visit * Reason Onset Date Comments Results 07/05/2023 Encounter Details Date Type Department Care Team (Late st Contact Info) Description 07/05/2023 Telephone [facility] Cardiology [address] [facility] [address] [place] [address] Humble Augustine, [facility] Results Social History Tobacco Use Types Packs/Day Years [...] Date Leopoldo rded Speak language other than Sinhala at home Not on file 03/08/2023 Want [...] Stas Betancourt RN documented in this encounter Miscellaneous Notes * Telephone Encounter - Stephanie James - 07/05/2023 3:47 PM EDT States she is returning a mssed call * Telephone Encounter - Humble Augustine CMA - 07/05/2023 3:40 PM EDT lvm for callback. * Telephone Encounter - [place]ble Augustine CMA - 07/05/2023 3:40 PM EDT ----- Message from Sumanth Laureano APRN sent at 06/19/2023 8:04 AM EDT ----- Humble Echo okay. EF normal. She does have moderate MR/TR, but we are medically managing this. No change to current medical therapy at this time. Follow-up with primary care for anemia Thank you rc documented in this encounter Plan of Treatment Not on file documented as of this encounter Visit Diagnoses Not on filedocumented in this encounter Care Teams Cna Hospice Relationship Specialty Start Date End Date Geeta Esteban APRN [address] [place] [address] PCP - General Nurse Practitioner 06/06/23 Sumanth Laureano APRN [address] [facility] [address] [place] [address] Nurse Practitioner Cardiology 06/06/23 documented as of this encounter
--- OUTSIDE RECORDS SUMMARY | 2024-01-26 15:01 | XMS_ITS | Encounter Summary ---
Author Organization [employer] Address [address] [place] [address] Care Team Providers Care Pit Furnace Melter Name Role Phone EstebanLillieGeetalizette COLBY Primary Care Provider + [phone] Sumanth Laureano APRN Unavailable [phone] Reason for Visit * Reason Onset Date Comments Advice Only 09/19/2023 Encounter Details Date Type Department Care Team (Late st Contact Info) Description 09/19/2023 Telephone [facility] Cardiology [address] [facility] [address] [place] [address] Sumanth Laureano APRN [address] [facility] [address] [place] [address] Advice Only Social History Tobacco Use Types Packs/Day Years [...] place to sleep or slept in a custodial (including now)? No 06/22/2022 Interpersonal Safety Answer [...] Date Leopoldo rded Speak language other than Uzbek at home Not on file 03/08/2023 Want [...] encounter Miscellaneous Notes * Telephone Encounter - Jerilyn Hollingsworth MA - 09/20/2023 11:32 AM EDT Phone call to pharmacy. Informed the pharmacist that Sumanth is okay with the replacement. He verbalized understanding. * Telephone Encounter - Stephanie James - 09/19/2023 3:58 PM EDT Neema Roberts [phone] states has questions about change Cardizem CD to Diltiazen XR -due to Cardizem CD being on backorder documented in this encounter Plan of Treatment Not on file documented as of this encounter Visit Diagnoses Not on filedocumented in this encounter Care Teams Pit Furnace Melter Relationship Specialty Start Date End Date Geeta Esteban, EARNESTINE [address] [place] [address] PCP - General Nurse Practitioner 06/06/23 Sumanth Laureano APRN [address] [facility] [address] [place] [address] Nurse Practitioner Cardiology 06/06/23 documented as of this encounter
--- OUTSIDE RECORDS SUMMARY | 2024-01-26 15:01 | XMS_ITS | Encounter Summary ---
Author Organization [employer] Address [address] [place] [address] Care Team Providers Care Forklift Operator Name Role Phone EstebanLillie montenegrolizette COLBY Primary Care Provider + [phone] Sumanth Laureano APRN Unavailable [phone] Encounter Details Date Type Department Care Team (Late st Contact Info) Description 09/16/2023 1:30 PM EDT Office Visit [facility] Cardiology [address] [facility] [address] [place] [address] Sumanth Laureano APRN [address] [facility] [address] [place] [address] Arteriosclerosis of coronary artery (Primary Dx); Primary hypertension; Paroxysmal atrial fibrillation (HCC); Mixed hyperlipidemia; Wild-type transthyretin-related (ATTR) amyloidosis (HCC) Social History Tobacco Use [...] place to sleep or slept in a assisted (including now)? No 06/22/2022 Interpersonal Safety Answer [...] Date Leopoldo rded Speak language other than Stateless at home Not on file 03/08/2023 Want [...] Pulse 63 09/16/2023 1:37 PM EDT Temperature - - Respiratory Rate - - Oxygen Saturation 97% 09/16/2023 1:37 PM EDT Inhaled Oxygen Concentration - - Weight 70.3 kg (155 lb) 09/16/2023 1:37 PM EDT Height 160 cm (5' 3 ) 09/16/2023 1:37 PM EDT Body Mass Index 27.46 09/16/2023 1:37 PM EDT documented in this encounter Functional [...] of Assessment Author No 12/17/2021 2:07 PM Stas Deal RN documented as of this encounter Mental Status * Because of a physical, mental, or emotional condition, do you have serious difficulty concentrating, remembering, or making decisions? (5 years old or older) Answer Entry Date Author No 12/17/2021 2:07 PM Stas Deal RN documented in this encounter Progress Notes * Sumanth Laureano APRN - 09/16/2023 1:30 PM EDT CARDIOLOGY FOLLOW UP EVALUATION Date of Service: 09/16/2023 NAME: Chen Merritt : 1940 AGE: 83 y.o. PCP: Geeta Esteban APRN Chief Complaints No complaints History of Present Illness Chen Merritt is an exceptionally pleasant 83-year-old female with a known history of atherosclerotic cardiovascular disease with history of coronary bypass grafting as well as PCI most recentbeing May 2022, hypertension, dyslipidemia, cardiac amyloidosis, paroxysmal atrial fibrillation, venous insufficiency, and chronic back pain who presents clinic for follow-up. She tells me that since her last visit she has improved significantly. She underwent echocardiographic evaluation which revealed mild/moderate valvular heart disease (2+ MR/2+ TR), but otherwise unchanged. She tells me her Vyndamax was discontinued and since that time she feels much better. She denies exertional chest pain, palpitations, dizziness, syncope, shortness of air, or edema. She otherwise has no complaints. Review of Systems Review of Systems Constitutional: Positive for malaise/fatigue. HENT: Negative. Eyes: Negative. Respiratory: Positive for shortness of breath. Cardiovascular: Negative. Gastrointestinal: Negative. Genitourinary: Negative. Musculoskeletal: Negative. Skin: Negative. Neurological: Negative. Endo/Heme/Allergies: Negative. Psychiatric/Behavioral: Negative. All other systems reviewed and are negative. Current Medications Current Outpatient Medications Medication Sig Dispense Refill ??? aspirin 81 MG EC tablet Take 1 tablet (81 mg total) by mouth daily. ??? atorvastatin (LIPITOR) 40 MG tablet Take 1 tablet (40 mg total) by mouth nightly. ??? calcium phosphate-vitamin D3 250 mg-12.5 mcg (500 unit) Chew Take 1 tablet by mouth in the morning and 1 tablet before bedtime. ??? cetirizine (ZyrTEC) 10 MG tablet Take 1 tablet (10 mg total) by mouth daily. ??? cholecalciferol (VITAMIN D3) 25 mcg (1,000 unit) tablet Take 1 tablet (1,000 Units total) by mouth daily. ??? denosumab (Prolia) 60 mg/mL Syrg Inject 1 mL (60 mg total) subcutaneously. ??? diclofenac 1 % Gel Apply 2 g topically 4 (four) times daily as needed (for Pain). ??? docusate sodium (COLACE) 100 MG capsule Take 2 capsules (200 mg total) by mouth 2 (two) times daily. ??? ferrous sulfate (iron) 325 (65 FE) MG tablet Take 1 tablet (325 mg total) by mouth daily. ??? folic acid (FOLVITE) 1 MG tablet Take 1 tablet (1 mg total) by mouth daily Take everyday excepton the day of methotrexate. ??? methotrexate 2.5 MG tablet Take 8 tablets (20 mg total) by mouth once a week. ??? metoprolol tartrate (LOPRESSOR) 25 MG tablet Take 1 tablet (25 mg total) by mouth 2 (two) timesdaily. ??? wcjkhtle-lgp-XI-lycopen-lutein (Centrum Silver) 0.4 mg-300 mcg- 250 mcg Tab Take 1 tablet by mouth daily . ??? pantoprazole (PROTONIX) 40 MG tablet Take 1 tablet (40 mg total) by mouth daily. ??? pregabalin (LYRICA) 50 MG capsule Take 2 capsules (100 mg total) by mouth 2 (two) times daily. ??? dilTIAZem (CARDIZEM CD) 180 MG 24 hr capsule Take 1 capsule (180 mg total) by mouth daily. 90 capsule 3 No current facility-administered medications for this visit. [...] Skin is warm and dry. Vitals Vitals: 09/16/23 1337 BP: 138/78 Pulse: 63 SpO2: 97% Assessment 1. Arteriosclerosis of coronary artery ECG 12 lead 2. Primary hypertension 3. Paroxysmal atrial fibrillation (HCC) 4. Mixed hyperlipidemia 5. Wild-type transthyretin-related (ATTR) amyloidosis (HCC) * Chronic fatigue--worsening * Coronary artery disease: RIVERA patent --All SVG occluded A. Successful balloon angioplasty and stenting of subtotal occlusion of proximal circumflex heavily calcified lesion 99% reduced to 10% -predilated nwith shockwave balloon3.5 and treated with Haywood 3.5 x 15 drug-eluting stent (05/2022) B. [...] Chronic low back pain. Spinal stenosis. Plan No change to current medical therapy at this time Lipids per primary Follow-up with amyloid clinic as scheduled Heart failure education discussed Thorough review of all available records performed prior to examination Follow-up in 8 months or sooner if needed pending echo results Orders Placed This Encounter Procedures ??? ECG 12 lead Order Specific Question: Reason for ECG: Answer: Chest pain Return in about 8 months (around 05/16/2024) for Next Scheduled Follow Up. Past Medical History Past Medical History: Diagnosis Date ??? Arthritis ??? Coronary artery disease ??? Hyperlipidemia ??? Hypertension ??? Lumbar spondylolysis ??? PA (myocardial infarction) (HCC) ??? Osteopenia ??? Psoriatic arthritis (HCC) ??? Psoriatic arthritis (HCC) Past Surgical History Past Surgical History: Procedure Laterality Date ??? CHOLECYSTECTOMY ??? HYSTERECTOMY ??? LAMINECTOMY,LUMBAR Left 06/12/2022 Procedure: (LT L5-S1 FACETECTOMY AND NEUROFORAMINOTOMY; Surgeon: Edith Morse MD; Location: [facility] OR; Service: Neurosurgery; Laterality: Left; [place] 0800,1.5HRS(R) ??? LAMINECTOMY,LUMBAR W/FUSION N/A 12/14/2021 Procedure: L3-5, L5-S1 FUSION AND DECOMPRESSION AUGMENTATION WITH ZIEHM; Surgeon: Edith Morse MD; Location: [facility] OR; Service: Neurosurgery; Laterality: N/A; IN [...] -predilated nwith shockwave balloon3.5 and treated with Kiran 3.5 x 15 drug-eluting stent documented in this encounter Plan of Treatment Scheduled Orders Name Type Priority Associated Diagnoses Orde r Schedule ECG 12 lead ECG Routine Arteriosclerosis of coronary artery Ordered: 09/16/2023 documented as of this encounter Visit Diagnoses Diagnosis Arteriosclerosis of coronary artery- Primary Primary hypertension Unspecified essential hypertension Paroxysmal atrial fibrillation (HCC) Atrial fibrillation Mixed hyperlipidemia Wild-type transthyretin-related (ATTR) amyloidosis (HCC) documented in this encounter Care Teams Forklift Operator Relationship Specialty Start Date End Date Geeta Esteban APRN [address] [address] PCP - General Nurse Practitioner 06/06/23 Sumanth Laureano APRN [address] [place] [address] Nurse Practitioner Cardiology 06/06/23 documented as of this encounter
--- OUTSIDE RECORDS SUMMARY | 2024-01-26 15:01 | XMS_ITS | Encounter Summary ---
Author Organization [employer] Address [address] [place] [address] Care Team Providers Care Business Enterprise Officer Name Role Phone Mayank Angel MD Primary Care Provider [phone] Reason for Visit * Reason Onset Date Comments questions - med 04/17/2023 Encounter Details Date Type Department Care Team (Late st Contact Info) Description 04/17/2023 Telephone [facility] Cardiology [address] [facility] [address] [place] [address] Henrik Mcallister MD [address] [facility] [address] [place] [address] questions - med Social History Tobacco Use Types Packs/Day Years [...] place to sleep or slept in a longterm (including now)? No 06/22/2022 Interpersonal Safety Answer [...] Date Leopoldo rded Speak language other than Persian at home Not on file 03/08/2023 Want [...] of Assessment Author Yes 12/17/2021 2:07 PM FRANCIT Stas Betancourt RN * Do you have [...] Stas Deal RN documented in this encounter Miscellaneous Notes * Telephone Encounter - Jerilyn Hollingsworth MA - 04/18/2023 4:24 PM EST Phone call to patients daughter. Instructed her to have patient d/c plavix indefinitely and continue ASA 81 mg. Patient is still taking atorvastatin 40 mg. Will inform giovanny and call back with recommendations about elevated liver fx. She verbalized understanding. ING MACHINE OPERATOR * Telephone Encounter - Sumanth Laureano APRN - 04/18/2023 3:28 PM EST Indefinitely. Advised her to follow-up with PCP about these nosebleeds. Please let her know clopidogrel does not cause nosebleeds, but if there is an issue in her nasal cavity that will bleed it willmake bleeding occur more easily. She may need to see ENT ING MACHINE OPERATOR * Telephone Encounter - Sumanth Laureano APRN - 04/18/2023 3:16 PM EST Clopidogrel can be discontinued. Stress the importance of taking aspirin 81 mg daily. ING MACHINE OPERATOR * Telephone Encounter - Mahnaz Russell - 04/18/2023 10:12 AM EST Patient calling back regarding the plavix and nose bleeds. [phone] ING MACHINE OPERATOR * Telephone Encounter - Stephanie James - 04/17/2023 1:44 PM EST States has questions about stopping Plavix due to nose bleeds ING MACHINE OPERATOR documented in this encounter Plan of Treatment Not on file documented as of this encounter Visit Diagnoses Not on filedocumented in this encounter Care Teams Business Enterprise Officer Relationship Specialty [place] [address] [address] PCP - General Family Medicine 06/07/22 06/05/23 documented as of this encounter
--- OUTSIDE RECORDS SUMMARY | 2024-01-26 15:01 | XMS_ITS | Encounter Summary ---
Author Organization [employer] Address [address] [place] [address] Care Team Providers Care Office Support Specialist Name Role Phone CarlitoLillieGeetalizette COLBY Primary Care Provider [phone] Sumanth Laureano APRN Unavailable [phone] Encounter Details Date Type Department Care Team (Late st Contact Info) Description 06/18/2023 Orders Only [facility] Cardiology [address] [place] [address] Humble Augustine, [facility] Social History Tobacco Use Types Packs/Day Years [...] Date Leopoldo rded Speak language other than Chinese at home Not on file 03/08/2023 Want [...] Entry Date Author No 12/17/2021 2:07 PM CDStas Field RN documented in this encounter Plan of Treatment Not on file documented as of this encounter Visit Diagnoses Not on filedocumented in this encounter Care Teams Office Support Specialist Relationship Specialty Start Date End Date Geeta Esteban, DEVELOPMENT PLANNER [address] [facility] 1 [place] [address] PCP - General Nurse Practitioner 06/06/23 Sumanth Laureano, EARNESTINE [address] [facility] [place] [place] [address] Nurse Practitioner Cardiology 06/06/23 documented as of this encounter
--- OUTSIDE RECORDS SUMMARY | 2024-01-26 15:01 | XMS_ITS | Encounter Summary ---
Author Organization [employer] Address [address] [place] [address] Care Team Providers Care Marine Fireman Name Role Phone Mayank Angel MD Primary Care Provider [phone] Encounter Details Date Type Department Care Team (Late st Contact Info) Description 08/16/2022 Orders Only [facility] Cardiology [address] [facility] [address] [place] [address] Humble Augustine, GAIL Cardiac amyloidosis (HCC) (Primary Dx) Social History Tobacco Use [...] place to sleep or slept in a snf (including now)? No 06/22/2022 Comments No Sex and Gender Information Value Date Recorded Sex Assigned at Not on file Legal Sex Female 5:40 PM CDT Gender Identity Not on file Sexual Orientation Not on file COVID-19 Exposure Response Date Recorded In the last 10 days, have yo u been in contact with someone who was confirmed or suspected to have Coronavirus/COVID-19? No / Unsure 08/13/2022 8:33 AM EDT documented as of this encounter Functional Status [...] Stas Deal RN documented in this encounter Plan of Treatment Not on file documented as of this encounter Visit Diagnoses Diagnosis Cardiac amyloidosis (HCC)- Primary Other amyloidosis documented in this encounter Care Teams Marine Fireman Relationship Specialty [place] [address] [address] [address] PCP - General Family Medicine 06/07/22 06/05/23 documented as of this encounter
--- OUTSIDE RECORDS SUMMARY | 2024-01-26 15:01 | XMS_ITS | Encounter Summary ---
Author Organization [employer] Address [address] [place] [address] Care Team Providers Care Glued Wood Tester Name Role Phone EstebanLillie montenegrolizette COLBY Primary Care Provider [phone] Atif Fung APRN Unavailable [phone] Reason for Referral * Echocardiography (Routine) - Closed Specialty Diagnoses / Procedures Referred By Dalton t Referred To Contact Cardiology Diagnoses Shortness of breath Procedures ECHO COMPLETE (DOPPLER / COLOR) W OR WO CONTRAST Atif Fung APRN [address] [place] [address] [place] [address] Phone: tel: fax: [facility] [address] [place] [address] Phone: tel: fax: Referral ID Status Reason Start Date Expiration Date Visits Re quested Visits Authorized [id number] Closed 06/06/2023 06/05/2024 1 1 Reason for Visit * Echocardiography (Routine) - Closed Specialty Diagnoses / Procedures Referred By Contdanna t Referred To Contact Cardiology Diagnoses Shortness of breath Procedures ECHO COMPLETE (DOPPLER / COLOR) W OR WO CONTRAST Atif Fung APRN [address] [facility] [place] [address] Phone: tel: fax: [facility] 1 [place] [address] Phone: tel: fax: Referral ID Status Reason Start Date Expiration Date Visits Re quested Visits Authorized [id number] Closed 06/06/2023 06/05/2024 1 1 Encounter Details Date Type Department Care Team (Late st Contact Info) Description 06/18/2023 1:00 PM EDT - 06/18/2023 11:59 PM EDT Hospital Encounter [facility] 1 [place] [address] Atif Fung APRN [address] [place] [address] Adán Bolanos MD [address] [place] [address] Shortness of breath Discharge Disposition: Home or Self Care Social History Tobacco Use Types Packs/Day Years [...] place to sleep or slept in a mcc (including now)? No 06/22/2022 Interpersonal Safety Answer [...] Date Leopoldo rded Speak language other than Mohawk at home Not on file 03/08/2023 Want [...] 2:07 PM FRANCIT Stas Betancourt RN * Because of a [...] Stas Deal RN documented in this encounter Medications at Time of Discharge aspirin 81 MG EC tablet Take 1 tablet (81 mg total) by mouth daily. atorvastatin (LIPITOR) 40 MG tablet Take 1 tablet (40 mg total) by mouth nightly. calcium phosphate-vitami n D3 250 mg-12.5 mcg (500 unit) Chew Take 1 tablet by mouth in the morning and 1 tablet before bedtime. cetirizine (ZyrTEC) 10 MG tablet Take 1 tablet (10 mg total) by mouth daily. cholecalciferol (VITAMIN D3) 25 mcg (1,000 unit) tablet Take 1 tablet (1,000 Units total) by mouth daily. denosumab (Prolia) 60 mg/mL Syrg Inject 1 mL (60 mg total) subcutaneously. 08/24/2022 diclofenac 1 % Gel Apply 2 g topically 4 (four) times daily as needed (for Pain). 09/13/2021 docusate sodium (COLACE) 100 MG capsule Take 2 capsules (200 mg total) by mouth 2 (two) times daily. ferrous sulfate (iron) 325 (65 FE) MG tablet Take 1 tablet (325 mg total) by mouth daily. folic acid (FOLVITE) 1 MG tablet Take 1 tablet (1 mg total) by mouth daily Take everyday except on the day of methotrexate. 09/13/2021 methotrexate 2.5 MG tablet Take 8 tablets (20 mg total) by mouth once a week. 10/31/2021 metoprolol tartrate (LOPRESSOR) 25 MG tablet Take 1 tablet (25 mg total) by mouth 2 (two) times daily. 05/08/2023 svklhsmm-tyb-KK- lycopen-lutein (Centrum Silver) 0.4 mg-300 mcg- 250 mcg Tab Take 1 tablet by mouth daily . pantoprazole (PROTONIX) 40 MG tablet Take 1 tablet (40 mg total) by mouth daily. pregabalin (LYRICA) 50 MG capsule Take 2 capsules (100 mg total) by mouth 2 (two) times daily. 06/04/2023 dilTIAZem (CARDIZEM CD) 180 MG 24 hr capsule Take 1 capsule (180 mg total) by mouth daily. 4 tafamidis (Vyndamax) 61 mg Cap Take 61 mg by mouth. 09/13/2022 4 documented as of this encounter Plan of Treatment Not on file documented as of this encounter Procedures Procedure Name Priority Date/Time Associated Diagnosis Comments ECHO COMPLETE (DOPPLER / COLOR) WO CONTRAST Routine 06/18/2023 2:31 PM EDT Shortness of breath documented in this encounter Results * ECHO COMPLETE (DOPPLER / COLOR) WO CONTRAST (06/18/2023 2:31 PM EDT) Anatomical Region Laterality Modality Heart Vascular Ultraso und 06/18/2023 1:19 PM EDT Narrative 06/18/2023 5:12 PM EDT TRANSTHORACIC ECHOCARDIOGRAPHY REPORT Demographics Patient Name: ? JOHN Mallory ?: ? 1940 ?Age: ? 82 year(s) Corporate ID Number: ?[id number] ?Gender ?? Female Civil Service Clerk: ?Carroll Baez RVT ?Height: ??63 inches ? [...] ?? E/A ratio: 1.26 m/s ? Volume uvqnoprbm14.37 ?? LV length: 7.2 cm ml Volume aowzxkkv39.72 ml LVOT diameter: 1.92 cm Normal sized [...] Valve TR velocity: 3.1 m/s ?TR gradient: 38.72608 mmHg Estimated RAP: 3 mmHg ? RVSP: [...] 1940 Age: 82 year(s) Corporate ID Number: [id number] Gender Female Civil Service Clerk: Carroll Baez RVT Height: 63 inches ,[facility] Referring Physician: ATIF FUNG Weight: 149.01pounds Interpreting [...] 0.96 m/s E/A ratio: 1.26 m/s Volume ugdyqrsva25.37 LV length: 7.2 cm ml Volume aacsdoon23.72 ml LVOT diameter: 1.92 cm Normal sized [...] Valve TR velocity: 3.1 m/s TR gradient: 38.66694 mmHg Estimated RAP: 3 mmHg RVSP: 41.41 [...] this encounter Visit Diagnoses Diagnosis Shortness of breath documented in this encounter Care Teams Glued Wood Tester Relationship Specialty Start Date End Date Geeta Esteban APRN [address] [place] [address] [place] [address] PCP - General Nurse Practitioner 06/06/23 Atif Fung, TRUCKLOAD OWNER OPERATOR [address] [facility] [address] [place] [address] Nurse Practitioner Cardiology 06/06/23 documented as of this encounter
--- OUTSIDE RECORDS SUMMARY | 2024-01-26 15:01 | XMS_ITS | Encounter Summary ---
Author Organization [employer] Address [address] [place] [address] Care Team Providers Care Signal System Testing Maintainer Name Role Phone Mayank Angel MD Primary Care Provider [phone] Reason for Visit * Reason Onset Date Comments Advice Only 06/28/2022 Encounter Details Date Type Department Care Team (Late st Contact Info) Description 06/28/2022 Telephone [facility] Cardiology [address] [facility] [address] [place] [address] Henrik Mcallister MD [address] [facility] [address] [place] [address] Advice Only Social History Tobacco Use Types [...] place to sleep or slept in a retirement (including now)? No 06/22/2022 Comments No Sex [...] suspected to have Coronavirus/COVID-19? No / Unsure 06/10/2022 12:13 AM EDT documented as of this encounter [...] encounter Miscellaneous Notes * Telephone Encounter - Humble Augustine CMA - 06/28/2022 10:47 AM EDT I called and spoke with the patients daughter and informed her that Dr. Mcallister is not the rounding coremaker apprentice today but cardiology at some point would be in there to see her mother because of her cardiac history. She verbalized underdstanding. * Telephone Encounter - Mahnaz Tricia Russell - 06/28/2022 8:32 AM EDT Patients daughter calling states patient is currently in [facility] and has repeatedly requested withthe nurses to have Dr. Mcallister come see her. Shes having issues with her blood pressure after having her stent put in 2 weeks ago. Patients daughter was hoping you could get word to Dr. Mcallister to see her in room [phone] documented in this encounter Plan of Treatment Not on file documented as of this encounter Visit Diagnoses Not on filedocumented in this encounter Care Teams Signal System Testing Maintainer Relationship Specialty [place] [address] [phone] PCP - General Family Medicine 06/07/22 06/05/23 documented as of this encounter
--- OUTSIDE RECORDS SUMMARY | 2024-01-26 15:01 | XMS_ITS | Encounter Summary ---
Author Organization [employer] Address [address] [place] [address] Care Team Providers Care Medicine Man Name Role Phone Mayank Angel MD Primary Care Provider [phone] Encounter Details Date Type Department Care Team (Latest Contact Info) Description 08/13/2022 Travel Social History Tobacco Use Types Packs/Day Years [...] place to sleep or slept in a usp (including now)? No 06/22/2022 Comments No Sex [...] of Assessment Author No 12/17/2021 2:07 PM CDStas Field RN * Do you have serious difficulty walking or climbing stairs? Answer Date of Assessment Author Yes 12/17/2021 2:07 PM Stas Deal RN * Do you have serious difficulty dressing or bathing? Answer Date of Assessment Author No 12/17/2021 2:07 PM Stas Deal RN * Because of a physical, mental, [...] on filedocumented in this encounter Care Teams Medicine Man Relationship Specialty [place] [address] [phone] PCP - General Family Medicine 06/07/22 06/05/23 documented as of this encounter
--- OUTSIDE RECORDS SUMMARY | 2024-01-26 15:01 | XMS_ITS | Encounter Summary ---
Author Organization [employer] Address [address] [place] [address] Care Team Providers Care Novelty Twister Tender Name Role Phone Mayank Angel MD Primary Care Provider [phone] Reason for Referral * Nuclear Medicine (Routine) - Closed Specialty Diagnoses / Procedures Referred By Dalton haynes Referred To Contact Diagnoses Paroxysmal atrial fibrillation (HCC) Lumbar spondylosis Arthritis Procedures NM AMYLOIDOSIS PLANAR WITH SPECT Henrik Mcallister MD [address] [place] [address] [address] [place] [address] Phone: tel: fax: Referral ID Status Reason Start Date Expiration Date Visits Re quested Visits Authorized [id number] Closed 08/10/2022 02/06/2023 1 1 Reason for Visit * Reason Comments Dizziness She says shes gets s ome dizziness on occasion, which is improving. She lies down when she gets dizzy. Encounter Details Date Type Department Care Team (Late st Contact Info) Description 07/27/2022 10:30 AM EDT Office Visit [facility] Cardiology [address] [place] [address] [address] [place] [address] Henrik Mcallister MD [address] [place] [address] [address] [place] [address] Paroxysmal atrial fibrillation (HCC) (Primary Dx); Lumbar spondylosis; Arthritis; Bilateral carpal tunnel syndrome Social History Tobacco Use Types Packs/Day Years [...] place to sleep or slept in a group home (including now)? No 06/22/2022 Comments No Sex and Gender Information Value Date Recorded Sex Assigned at Not on file Legal Sex Female 5:40 PM CDT Gender Identity Not on file Sexual Orientation Not on file documented as of this encounter Last Filed Vital Signs Vital Sign Reading Time Taken Comments Blood Pressure 140/60 07/27/2022 10:50 AM EDT Pulse 66 07/27/2022 10:50 AM EDT Temperature - - Respiratory Rate - - Oxygen Saturation - - Inhaled Oxygen Concentration - - Weight 66.6 kg (146 lb 12.8 oz) 023 10:50 AM EDT Height 160 cm (5' 3 ) 07/27/2022 10:50 AM EDT Body Mass Index 26 07/27/2022 10:50 AM EDT documented in this encounter Functional Status [...] documented in this encounter Progress Notes * Henrik Mcallister MD - 07/27/2022 10:30 AM EDT Subjective Chen Merritt, 82 y.o. female in the office for planned return visit. Her primary complaint is fatigue. She had spinal surgery in her lumbar spine pain is much improved. She mentions to me she has hadcarpal tunnel syndrome as well. Blood pressure at home varies a bit without a clear pattern. Office BP is borderline. Assessment Chen was seen today for dizziness. Diagnoses and all orders for this visit: Paroxysmal atrial fibrillation (HCC) - Prealbumin - HERMANN, PE and FLC, Serum - Hardwick / lambda light chains, serum; Future - NM AMYLOIDOSIS PLANAR WITH SPECT; Future - Hardwick / lambda light chains, serum Lumbar spondylosis - Prealbumin - HERMANN, PE and FLC, Serum - Hardwick / lambda light chains, serum; Future - NM AMYLOIDOSIS PLANAR WITH SPECT; Future - Hardwick / lambda light chains, serum Arthritis - Prealbumin - HERMANN, PE and FLC, Serum - Hardwick / lambda light chains, serum; Future - NM AMYLOIDOSIS PLANAR WITH SPECT; Future - Hardwick / lambda light chains, serum Bilateral carpal tunnel syndrome Given the constellation of spinal stenosis, CTS, PAF and low voltage on EKG I believe we should evaluate for cardiac amyloidosis. Cardiovascular Specific Historical Data: * Coronary artery disease: 05/2008: posterior STEMI with PTCA of CX; MVCAD leading to subsequent CABG. EF 55% BY Echo 02/2010. * Atrial fibrillation, paroxysmal: No s/s of recurrence since 2013. Low arrhythmia burden based on history. H/O Post-Op A-fib in 2009 after surgery and 2013 after Bladder and hysterectomy surgery. * Dyslipidemia: * Hypertension:. * Venous Insufficiency with edema. * low back pain. Spinal stenosis. Plan Check kappa and lambda free light chains and prealbumin. PYP nuclear scan for amyloidosis. Consider referral to [facility] if abnormal. Continue current cardiac medications. No follow-ups on file. Labs/ECG/Device Recent Results: ECG: Sinus rhythm, low voltage. Review of Systems ROS is negative or noncontributory apart from symptoms or complaints described in the HPI or other sections of this note. All other systems reviewed and are negative. Current Outpatient Medications Medication Instructions ??? aspirin 81 mg, Oral, Daily ??? atorvastatin (LIPITOR) 40 MG tablet Take 1 tablet (40 mg total) by mouth nightly. ??? calcium phosphate-vitamin D3 250 mg-12.5 mcg (500 unit) Chew 1 tablet, Oral, 2 times daily ??? cetirizine (ZYRTEC) 10 mg, Oral, Daily ??? cholecalciferol (VITAMIN D3) 1,000 Units, Oral, Daily ??? clopidogreL (PLAVIX) 75 mg, Oral, Daily, ??? diclofenac 2 g, Topical (Top), 4 times daily PRN ??? dilTIAZem (CARDIZEM CD) 180 mg, Oral, Daily ??? docusate sodium (COLACE) 200 mg, Oral, 2 times daily ??? folic acid (FOLVITE) 1 mg, Oral, Daily, Take everyday except on the day of methotrexate ??? methotrexate 20 mg, Oral, Weekly ??? metoprolol tartrate (LOPRESSOR) 50 MG tablet Take 1 tablet (50 mg total) by mouth in the morning and 1 tablet (50 mg total) before bedtime. ??? jsjoyxmv-kws-NK-lycopen-lutein (Centrum Silver) 0.4 mg-300 mcg- 250 mcg Tab 1 tablet, Oral, Daily ??? pantoprazole (PROTONIX) 40 mg, Oral, Daily ??? pregabalin (LYRICA) 150 mg, Oral, Every Night Objective Last Recorded Vitals Vitals: 07/27/22 1050 BP: (!) 140/60 Pulse: 66 Weight: 66.6 kg (146 lb 12.8 oz) Height: 1.6 m (5' 3 ) Physical Exam Physical Exam Vitals and nursing note reviewed. Constitutional: Appearance: Normal appearance. HENT: Mouth/Throat: Mouth: Mucous membranes are moist. Cardiovascular: Rate and Rhythm: Normal rate and regular rhythm. Pulses: Normal pulses. Heart sounds: Normal heart sounds. Pulmonary: Effort: Pulmonary effort is normal. Breath sounds: Normal breath sounds. Abdominal: General: Bowel sounds are normal. Palpations: Abdomen is soft. Musculoskeletal: General: Normal range of motion. Skin: General: Skin is warm and dry. Capillary Refill: Capillary refill takes less than 2 seconds. Neurological: General: No focal deficit present. Mental Status: She is alert. Mental status is at baseline. Psychiatric: Mood and Affect: Mood normal. Behavior: Behavior normal. Thought Content: Thought content normal. Judgment: Judgment normal. documented in this encounter Plan of Treatment Scheduled Orders Name Type Priority Associated Diagnoses Orde r Schedule HERMANN, PE and FLC, Serum Lab Routine Paroxysmal atrial fibrillation (HCC) Lumbar spondylosis Arthritis Ordered: 07/27/2022 documented as of this encounter Procedures Procedure Name Priority Date/Time Associated Diagnosis Comments KAPPA / LAMBDA LIGHT CHAINS, SERUM Routine 07/27/2022 12:19 PM EDT Paroxysmal atrial fibrillation (HCC) Lumbar spondylosis Arthritis PREALBUMIN Routine 07/27/2022 12:19 PM EDT Paroxysmal atrial fibrillation (HCC) Lumbar spondylosis Arthritis documented in this encounter Results * NM AMYLOIDOSIS PLANAR WITH SPECT (08/13/2022 12:26 PM EDT) Anatomical Region Laterality Modality Nuclear Medicine Narrative 08/14/2022 1:00 PM EDT Nuclear PYP Cardiac Scan for Amyloidosis Date of Service: 08/13/2022 NAME: Chen Merritt ?? : 1940 AGE: 82 y.o. Procedure: Nuclear Medicine Cardiac PYP Scan for Amyloidosis Indication: Dyspnea, CTS, Lumbar spine disease Procedure: The patient was injected with 25.8mCi PYP and scintigraphic images were obtained at 1 hour after injection. Additional images were obtained 3 hours after injection. ?? Stress and rest images were compared in the short axis, horizontal long axis and vertical long axis. Findings: Images at 1 hour show a semiquantitative uptake grade of 1. The NELA:Lung uptake ratio is 1.0. Images at 3 hours show a semiquantitative uptake grade of 2. The NELA:Lung uptake ratio is 1.31. Conclusion: Nuclear Cardiac PYP Scan consistent with a Intermediate risk of significant cardiac amyloidosis. ?? us Henrik Mcallister MD IMG NM ORDERABLES Final Res ult * (ABNORMAL) Hardwick / lambda light chains, serum (07/27/2022 12:19 PM EDT) Free Hardwick Lt Chains,S 27.8(H) 3.3 - 19.4 mg/L [facility] Free Lambda Lt Chains,S 19.3 5.7 - 26.3 mg/L [facility] Hardwick/Lambda Ratio,S 1.44 0.26 - 1.65 [facility] Blood 07/27/2022 12:1 9 PM EDT 07/27/2022 Narrative [facility] - 07/30/2022 5:06 PM EDT Performed at: ??01 - [address] ??[id number] Automation And Controls Manager: Erwin Austin PhD, Phone: ??[phone] Henrik Mcallister MD LAB BLOOD ORDERABLES Final Result [facility] * Prealbumin (07/27/2022 12:19 PM EDT) Prealbumin 24 9 - 32 mg/dL [facility] Blood 07/27/2022 12:1 9 PM EDT 07/27/2022 Narrative [facility] - 07/30/2022 5:06 PM EDT Performed at: ??01 - [facility] ??[id number] Automation And Controls Manager: Erwin Austin PhD, Phone: ??[phone] Henrik Mcallister MD LAB BLOOD ORDERABLES Final Result [facility] documented in this encounter Visit Diagnoses Diagnosis Paroxysmal atrial fibrillation (HCC)- Primary Atrial fibrillation Lumbar spondylosis Lumbosacral spondylosis without myelopathy Arthritis Unspecified arthropathy, site unspecified Bilateral carpal tunnel syndrome Carpal tunnel syndrome Paroxysmal atrial fibrillation (HCC) Atrial fibrillation Lumbar spondylosis Lumbosacral spondylosis without myelopathy Arthritis Unspecified arthropathy, site unspecified documented in this encounter Care Teams Novelty Twister Tender Relationship Specialty [place] [address] [address] [phone] PCP - General Family Medicine 06/07/22 06/05/23 documented as of this encounter
--- OUTSIDE RECORDS SUMMARY | 2024-01-26 15:01 | XMS_ITS | Clinical Summary ---
Author Organization [employer] Address [address] [place] [address] Care Team Providers Care Milk Processing Worker Name Role Phone EstebanGeeta montenegro EARNESTINE Primary Care Provider [phone] Sumanth Laureano APRN Unavailable [phone] Allergies Active Allergy Reactions Criticality Noted Date [...] mg total) by mouth once a week. Active folic acid (FOLVITE) 1 MG tablet [...] daily as needed (for Pain). 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 No 06/22/2022 Interpersonal Safety Answer [...] Date Leopoldo rded Speak language other than Peruvian at home Not on file 03/08/2023 Want [...] Mass Index 27.46 09/16/2023 1:37 PM EDT Plan of Treatment Health Maintenance Due Date Last Done Comments DXA SCAN 1939 Depression Screening (12+) 1951 DTAP/TDAP/TD VACCINES (1 - Tdap) 07/18/1958 Shingles Vaccine (Zoster) (1 of 2) 07/18/1958 Medicare Initial AWV G0438 06/19/2005 Respiratory Syncytial Virus (RSV) Adult or (1 - 1-dose 75+ series) 07/18/2014 Falls Risk Screening 02/18/2023 COVID-19 VACCINE (5 - 2023-2 5 season) 2023 11/20/2021, 11/30/2020, 04/25/2020, Additional history exists Influenza Vaccine (#1) 2023 , 11/17/2021, 11/24/2020, Additional history exists Tobacco Cessation Counseling and Screening (12+) 09/15/2024 09/16/2023 Pneumococcal 65+ years Completed 01/06/2020, 2018 Medical Devices Implanted Type Area Master Machinist Device Identifier Shelf Expiration Date Model / Serial / Lot Matrix Fibergraft 12.5cc 0617-5974 - [id number] Implanted:Qty: 1 on 12/14/2021 by Edith Morse MD at [facility] IMPLANTS N/A: Back J &J:DEPUY:DEPUY SPINE 11/24/2023 [id number] / / [id number] Bone Fibers 5.0cc Pliafx Crtcl Bl-1799- - [id number] Implanted:Qty: 1 on 12/14/2021 by Edith Morse MD at [facility] IMPLANTS N/A: Back LIFENET:LIFENET TRANSPLANT SRV 04/30/2026 BL-1800- / / [id number] Bone Vivigen Formable Cell 5cc -1600-002 - [id number] Implanted:Qty: 1 on 12/14/2021 by Edith Morse MD at [facility] IMPLANTS N/A: Back LIFENET:LIFENET TRANSPLANT SRV 11/24/2022 BL-1600- / / [id number] Cement Spinal Confidence 2839-10-000 - [id number] Implanted:Qty: 1 on 12/14/2021 by Edith Morse MD at [facility] IMPLANTS N/A: Back J &J:DEPUY:DEPUY SPINE 08/18/2023 / / [id number] Screw Vpr Poly 6x50mm 450 - [id number] Implanted:Qty: 4 on 12/14/2021 by Edith Morse MD at [facility] IMPLANTS N/A: Back J &J:DEPUY:DEPUY SPINE 60450 / [id number] / Imp Vpr Prm Cfxfen Xtab 6x45mm [id number] - Implanted:Qty: 2 on 12/14/2021 by Edith Morse MD at [facility] IMPLANTS N/A: Back J &J:DEPUY:DEPUY SPINE [id number] / [id number] / Mis Linda Ply Scrw Set Ti - Implanted:Qty: 6 on 12/14/2021 by Edith Morse MD at [facility] IMPLANTS N/A: Back J &J:DEPUY:DEPUY SPINE / / Insurance MEDICARE PART A B Advance Directives For more information, please contact: [phone] * Full Code (Latest Code Status on File) Date Activated Date Inactivated Comments 06/13/2022 12:35 PM 06/28/2022 6:03 PM * Full Code Date Activated Date Inactivated Comments 06/10/2022 7:49 AM 06/13/2022 12:35 PM Care Teams Milk Processing Worker Relationship Specialty Start Date End Date Geeta Esteban, EARNESTINE [address] [address] PCP - General Nurse Practitioner 06/06/23 Sumanth Laureano APRN [address] [facility] [place] [address] Nurse Practitioner Cardiology 06/06/23
--- OUTSIDE RECORDS SUMMARY | 2024-01-26 15:01 | XMS_ITS | Encounter Summary ---
Author Organization [employer] Address [address] [place] [address] Care Team Providers Care Fuel System Maintenance Supervisor Name Role Phone Mayank Angel MD Primary Care Provider [phone] Reason for Referral * Nuclear Medicine (Routine) - Closed Specialty Diagnoses / Procedures Referred By Contac t Referred To Contact Diagnoses Paroxysmal atrial fibrillation (HCC) Lumbar spondylosis Arthritis Procedures NM AMYLOIDOSIS PLANAR WITH SPECT Henrik Mcallister MD [address] [place] [address] Phone: tel: fax: Referral ID Status Reason Start Date Expiration Date Visits Re quested Visits Authorized [id number] Closed 08/10/2022 02/06/2023 1 1 Reason for Visit * Nuclear Medicine (Routine) - Closed Specialty Diagnoses / Procedures Referred By Contac t Referred To Contact Diagnoses Paroxysmal atrial fibrillation (HCC) Lumbar spondylosis Arthritis Procedures NM AMYLOIDOSIS PLANAR WITH SPECT Henrik Mcallister MD [address] [place] [address] Phone: tel: fax: Referral ID Status Reason Start Date Expiration Date Visits Re quested Visits Authorized [id number] Closed 08/10/2022 02/06/2023 1 1 Encounter Details Date Type Department Care Team (Late st Contact Info) Description 08/13/2022 8:35 AM EDT - 08/13/2022 8:36 AM EDT Hospital Encounter [facility] Nuclear Medicine [address] [place] [address] Henrik Mcallister MD [address] [facility] [address] [place] [address] Paroxysmal atrial fibrillation (HCC); Lumbar spondylosis; Arthritis Discharge Disposition: Home or Self Care Social [...] place to sleep or slept in a mcfp (including now)? No 06/22/2022 Comments No Sex [...] Entry Date Author No 12/17/2021 2:07 PM Sats Deal RN documented in this encounter Medications [...] tablet (1,000 Units total) by mouth daily. diclofenac 1 % Gel Apply 2 g topically 4 (four) times daily as needed (for Pain). 09/13/2021 docusate sodium (COLACE) 100 MG capsule Take 2 capsules (200 mg total) by mouth 2 (two) times daily. folic acid (FOLVITE) 1 MG tablet Take 1 tablet (1 mg total) by mouth daily Take everyday except on the day of methotrexate. 09/13/2021 methotrexate 2.5 MG tablet Take 8 tablets (20 mg total) by mouth once a week. 10/31/2021 iffdqjqa-kig-UJ- lycopen-lutein (Centrum Silver) 0.4 mg-300 mcg- 250 mcg Tab Take 1 tablet by mouth daily . pantoprazole (PROTONIX) 40 MG tablet Take 1 tablet (40 mg total) by mouth daily. dilTIAZem (CARDIZEM CD) 180 MG 24 hr capsule Take 1 capsule (180 mg total) by mouth daily. 4 metoprolol tartrate (LOPRESSOR) 50 MG tablet Take 1 tablet (50 mg total) by mouth in the morning and 1 tablet (50 mg total) before bedtime. 4 documented as of this encounter Miscellaneous Notes * Result Encounter Note - Henrik Mcallister MD - 08/13/2022 8:36 AM EDT [place]: Please call Mrs. [place]. Her amyloid nuclear scan was intermediate risk. 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 Please recommend that we refer to Dr. [facility]. Explained that he is in amyloidosis expert we will continue the work-up from there. Thanks. documented in this encounter Plan of Treatment Not on file documented as of this encounter Procedures Procedure Name Priority Date/Time Associated Diagnosis Comments NM AMYLOIDOSIS PLANAR WITH SPECT Routine 08/13/2022 12:26 PM EDT Paroxysmal atrial fibrillation (HCC) Lumbar [...] Intermediate risk of significant cardiac amyloidosis. ?? Henrik Mcallister MD IMG NM ORDERABLES Final Res ult documented in this encounter Visit Diagnoses Diagnosis Paroxysmal atrial fibrillation (HCC) Atrial fibrillation Lumbar spondylosis Lumbosacral spondylosis without myelopathy Arthritis Unspecified arthropathy, site unspecified documented in this encounter Administered Medications Inactive Administered Medications - up to 3 most recent administrations Medication Order MAR Action Action Date Dose Rate Site Tc-99m - sodium pyrophosphate (PYP) 25.8 millicurie 25.8 millicurie Once, intravenous, On 08/13/22 at 1030, For 1 dose Given 08/13/2022 9:45 AM EDT 25.8 millicuries documented in this encounter Care Teams Fuel System Maintenance Supervisor Relationship Specialty [place] [address] [address] [phone] PCP - General Family Medicine 06/07/22 06/05/23 documented as of this encounter
--- OUTSIDE RECORDS SUMMARY | 2024-01-26 15:01 | XMS_ITS | Encounter Summary ---
Author Organization [employer] Address [address] [place] [address] Care Team Providers Care Foot Worker Name Role Phone Mayank Angel MD Primary Care Provider [phone] Reason for Visit * Nuclear Medicine (Routine) - Closed Specialty Diagnoses / Procedures Referred By Dalton haynes Referred To Contact Diagnoses Paroxysmal atrial fibrillation (HCC) Lumbar spondylosis Arthritis Procedures NM AMYLOIDOSIS PLANAR WITH SPECT Henrik Mcallister MD [address] [place] [address] Phone: tel: fax: Referral ID Status Reason Start Date Expiration Date Visits Re quested Visits Authorized [id number] Closed 08/10/2022 02/06/2023 1 1 Encounter Details Date Type Department Care Team (Late st Contact Info) Description 08/13/2022 8:37 AM EDT - 08/13/2022 11:59 PM EDT Hospital Encounter [facility] Nuclear Medicine [address] [phone] Henrik Mcallister MD [address] [place] [address] Discharge Disposition: Home or Self Care Social [...] place to sleep or slept in a halfway (including now)? No 06/22/2022 Comments No Sex [...] Stas Betancourt RN documented in this encounter Medications at [...] total) by mouth once a week. 10/31/2021 frcsxjru-dkh-EG- lycopen-lutein (Centrum Silver) 0.4 mg-300 mcg- 250 [...] bedtime. 4 documented as of this encounter Plan [...] ult documented in this encounter Visit Diagnoses Not on filedocumented in this encounter Care Teams Foot Worker Relationship Specialty [place] [address] [address] [phone] PCP - General Family Medicine 06/07/22 06/05/23 documented as of this encounter
--- OUTSIDE RECORDS SUMMARY | 2024-01-26 15:01 | XMS_ITS | Encounter Summary ---
Author Organization [employer] Address [address] [place] [address] Care Team Providers Care Water Leak Repairer Name Role Phone CarlitoLillieGeetalizette COLBY Primary Care Provider [phone] Sumanth Laureano APRN Unavailable [phone] Encounter Details Date Type Department Care Team (Latest Contact Info) Description 06/18/2023 Travel Social History Tobacco Use Types Packs/Day [...] Date Leopoldo rded Speak language other than Sami at home Not on file 03/08/2023 Want [...] on filedocumented in this encounter Care Teams Water Leak Repairer Relationship Specialty Start Date End Date Geeta Esteban, LIEUTENANT/DEPUTY [address] [place] [address] PCP - General Nurse Practitioner 06/06/23 Sumanth Laureano, LIEUTENANT/DEPUTY [address] [place] [address] Nurse Practitioner Cardiology 06/06/23 documented as of this encounter
--- OUTSIDE RECORDS SUMMARY | 2024-01-26 15:01 | XMS_ITS | Encounter Summary ---
Author Organization [employer] Address [address] [place] [address] Care Team Providers Care Record Changer Assembler Name Role Phone Mayank Angel MD Primary Care Provider [phone] Reason for Visit * Reason Onset Date Comments Results 08/14/2022 Encounter Details Date Type Department Care Team (Late st Contact Info) Description 08/14/2022 Telephone [facility] Cardiology [address] [facility] [address] [place] [address] [place], [facility] Results Social History Tobacco Use Types Packs/Day [...] a nursing home (including now)? No 06/22/2022 Comments No [...] Telephone Encounter - [place] Augustine CMA - 08/16/2022 10:37 AM EDT I spoke with the patient. She verbalized understanding of her results and Dr. Rodríguez recommendations. I have referred her to [facility] for further workup. * Telephone Encounter - Mahnaz Russell - 08/15/2022 1:18 PM EDT Patient returning your call * Telephone Encounter - [place] Augustine CMA - 08/14/2022 2:52 PM EDT LVM for patient to call me back to discuss. * Telephone Encounter - [place] Augustine CMA - 08/14/2022 2:52 PM EDT ----- Message from Henrik Mcallister MD sent at 08/14/2022 1:03 PM EDT ----- [place]: Please call Mrs. [place]. Her amyloid [...] on filedocumented in this encounter Care Teams Record Changer Assembler Relationship Specialty [place] [address] [address] [phone] PCP - General Family Medicine 06/07/22 06/05/23 documented as of this encounter
--- OUTSIDE RECORDS SUMMARY | 2024-01-26 15:01 | XMS_ITS | Encounter Summary ---
Author Organization [employer] Address [address] [place] [address] Care Team Providers Care Cost Estimating Engineer Name Role Phone EstebanLillie montenegrolizette COLBY Primary Care Provider [phone] Sumanth Laureano APRN Unavailable [phone] Reason for Visit * Reason Onset Date Comments Advice Only 10/30/2023 Encounter Details Date Type Department Care Team (Late st Contact Info) Description 10/30/2023 Telephone [facility] Cardiology [address] [facility] [address] [place] [address] Sumanth Laureano APRN [address] [facility] [address] [place] [address] Advice Only Social History Tobacco Use Types [...] place to sleep or slept in a prison (including now)? No 06/22/2022 Interpersonal Safety Answer [...] Date Leopoldo rded Speak language other than French at home Not on file 03/08/2023 Want [...] Telephone Encounter - Jerilyn Hollingsworth MA - 10/30/2023 2:41 PM EDT Phone call to patients daughter. Informed her Sumanth wanted me to reach out in regards to patientsrecent MRI. Sumanth states unfortunately there was a lot of motion artifact which can lead to misinterpretation. Patient should keep f/u as mentioned in about 6 months and a cta of abdomen and pelvis will be ordered then. The patients daughter verbalized understanding. * Telephone Encounter - Jerilyn Hollingsworth MA - 10/30/2023 2:41 PM EDT ----- Message from Sumanth Laureano APRN sent at 10/30/2023 11:53 AM EDT ----- Can you please call the patient. She sent me a message about an MRI obtained another provider revealing possible aortic issues. Unfortunately there was significant motion artifact on the study. We can consider CT of the abdomen and pelvis with contrast at follow-up. Thank you rc documented in this encounter Plan of Treatment Not on file documented as of this encounter Visit Diagnoses Not on filedocumented in this encounter Care Teams Cost Estimating Engineer Relationship Specialty Start Date End Date Geeta Esteban APRN [address] [place] [phone] PCP - General Nurse Practitioner 06/06/23 Sumanth Laureano, MILL ROLL REWINDER [address] [facility] [place] [address] Nurse Practitioner Cardiology 06/06/23 documented as of this encounter
--- OUTSIDE RECORDS SUMMARY | 2024-01-26 15:02 | XMS_ITS | Encounter Summary ---
Author Organization [facility] [employer] Address [address] [place] [address] Care Team Providers Care Stained Glass Glazier Name Role Phone Mayank Angel MD Primary Care Provider [phone] Reason for Visit * Reason Comments Generalized Weakness, Not Associated Wit h Extremities * Auth/Cert Specialty Diagnoses / Procedures Referred By Dalton haynes Referred To Contact Diagnoses Weakness Acute respiratory failure with hypoxia (HCC) Urinary tract infection without hematuria, site unspecified Altered mental status, unspecified altered mental status type Midline low back pain without sciatica, unspecified chronicity [address] Neuro Telemetry Unit [address] [place] [phone] Phone: tel: fax: [address] Neuro Telemetry Unit 1 [place] [address] Phone: tel: fax: Referral ID Status Reason Start Date Expiration Date Visits Re quested Visits Authorized [id number] 1 1 Encounter Details Date Type Department Care Team (Late st Contact Info) Description 06/10/2022 12:22 AM EDT - 06/28/2022 5:03 PM EDT Hospital Encounter [place] [id number] Interventional [address] 1 [place] [address] Rex Pelaez MD [facility] [place] [address] Thony Amaya MD [address] [id number] Tj Annette, NEUROPHYSIOLOGY TECH [address] [id number] Robby Machuca PA-C 1401 [facility] [address] [place] [id number] Simin Umanzor, NEUROPHYSIOLOGY TECH [address] [id number] Sarahi Rajan PA-C [address] [id number] Simin Awad, DO 1 [place], [place] [id number] Chino Reardon MD [address] [id number] Gustabo Galarza MD [address] [id number] Acute respiratory failure with hypoxia (HCC) (Primary Dx); Urinary tract infection without hematuria, site unspecified; Altered mental status, unspecified altered mental status type; Midline low back pain without sciatica, unspecified chronicity; Stented coronary artery Discharge Disposition: Rehab Facility Social History Tobacco Use Types Packs/Day Years [...] place to sleep or slept in a fpc (including now)? No 06/22/2022 Comments No Sex [...] AM EDT documented as of this encounter Last Filed Vital Signs Vital Sign Reading Time Taken Comments Blood Pressure 136/88 06/28/2022 8:49 AM EDT Pulse 81 06/28/2022 8:49 AM EDT Temperature 36.5 ??C (97.7 ??F) 06/28/2022 8:49 AM ED T Respiratory Rate 15 06/28/2022 1:56 AM EDT Oxygen Saturation 100% 06/28/2022 1:56 AM EDT Inhaled Oxygen Concentration - - Weight 68 kg (150 lb) 06/10/2022 11:07 AM EDT Height 160 cm (5' 2.99 ) 06/10/2022 11:07 AM EDT Body Mass Index 26.58 06/10/2022 11:07 AM EDT documented in this encounter Functional [...] Stas Deal RN documented in this encounter Discharge Summaries * Gustabo Galarza MD - 06/28/2022 11:44 AM EDT Patient Name: Chen Merritt : 1940 Date of Admission: 06/10/2022 Date of Discharge: 06-28-2022 Primary Care Physician: Mayank Angel MD Consultations: Discharge Diagnoses: ACS -06/13--Successful balloon angioplasty and stenting of subtotal occlusion of proximal circumflex heavily calcified lesion 99% reduced to 10% -predilated with shockwave balloon 3.5 and treated with Powell 3.5 x 15 drug-eluting stent which was postdilated with a 4.0 noncompliant balloon atmospheres -Echo: mod LVH EF 55% mod tricuspid regurg -Intolerant to brillinta, CARD changed to plavix, continue asa, continue statin ?? Metabolic Encephalopathy, resolved: ??2/2 acute UTI, - complicated by narcotic use and advancing age. As well as hospitalization ?? Complicated UTI, resolved:? L5/S1 disc herniation -PT/OT post-op, ?Resume home dose of lyrica. -06/12-->Left L5-S1 facetectomy with neuroforaminotomies discectomy for decompression of nerve root -fu [address] Odonnell ?? paroxysmal Atrial fibrillation Cardiology recs ASA only as no AFIB since 2012. ?? Psoriatic Arthritis: Controlled on MTX. Spondylosis with myelopathy, lumbar region NSTEMI: Postoperative after lumbar spine surgery A. ANGELICA ---> proximal calcified Cx * Atherosclerotic cardiovascular disease with history of coronary artery bypass grafting x4 (2009) * Orthostatic hypotension * Hypertension * Dyslipidemia * Psoriatic arthritis * Metabolic encephalopathy * Acute UTI * L5/S1 disc herniation--status post discectomy on 06/12 Reason for Admission: Chen Merritt is a 81 y.o. female presenting with confusion and weakness. She has a PMH as below with known lumbar disk herniation and upcoming diskectomy with Dr. Odonnell this week. She has been having progressive weakness and ongoing pain at home, worse over the last week. She has urinary incontinence at baseline and has been using a bedside commode with difficulty moving around due to her back p ain. This morning she was acutely confused and family brought her in for evaluation. She has been using narcotics at home, taking a half tab of [place] due to side effects (morphine allergy is confusion). Workup here in the ED is concerning for acute urinary tract infection and IV Rocephin has beenstarted. CXR was read by ED provider as possible pneumonia but patient has no upper or lower respiratory symptoms and is normoxic. Troponins were mildly elevated in the setting of chronic CAD but shehas had no chest pain or concerning EKG findings. Diskectomy is scheduled for Saturday. Hospitalist is asked to admit. ?? Seen today in her room. Family is providing much of the history. Patient reports back pain and weakness. She knows when she needs to pee but has difficulty holding it. States she had a urinary incontinence surgery in the past which did not help. She does not get frequent UTIs despite this issue. She seems a bit confused to her family though she was a fair historian for this provider. She has not had chest pain or SOB. No HERNANDEZ/dizziness, visual changes. Denies palpitations. No history of blood clots. No recent falls or head injury. No NVD. Denies dysuria but reports bladder discomfort. Hospital Course: Metabolic Encephalopathy: 2/2 acute UTI, complicated by narcotic use and advancing age. IV fluids, antibiotics. Limit narcotics as able, continue to treat her chronic back pain. ?? 2. Acute UTI: UA turbid, nitrite+ with 2+ bacteria and suprapubic tenderness. Not meeting sepsis criteria on admission. IV Rocephin for usual organisms, no history of recurrent UTIs or MDROs. IV fluids. Await culture data. ?? 3. L5/S1 disc herniation: Aware, scheduled for diskectomy with Dr Odonnell this Saturday. Will ask her team to evaluate to determine appropriateness of surgery date. Pain management for now, limit narcotics as able given encephalopathy and advanced age. PT pending NSY recs. Resume home dose of lyrica. ?? 4. CAD: Mildly elevated troponin here, not concerning for ACS. EKG looks fine, no chest pain. Remote CABGx4 (2008). Resume home meds. Hold aspirin for now given OR plans but will ask NSY team to evaluate as surgery may need to be deferred. ?? 5. HTN: Resume home meds. ?? 6. Psoriatic Arthritis: Controlled on MTX. Hold here. Not due for denosumab. ?? 7. Immunocompromised: On MTX for psoriatic arthritis, takes on . Last dose was 05/31. On denosumab twice annually. Continue to hold here. Continue folic acid supplementation. ? DVT Prophylaxis: Lovenox Ms. Merritt was admitted with intractable back pain and debility secondary to pain and weakness, some confusion secondary to acute UTI. She has been treated with five days of rocephin for UTI, repeat UAis clear. She underwent successful LT L5-S1 FACETECTOMY AND NEUROFORAMINOTOMY on 06/[address] Odonnell and has had significant reduction in back/leg pain. Unfortunately the morning of 06/13 she developed significant chest pain, acute EKG changes and increased troponin. She was taken to the dental laboratory manager that day with the following results: Successful balloon angioplasty and stenting of subtotal occlusion of proximal circumflex heavily calcified lesion 99% reduced to 10% predilated with shockwave balloon 3.5 and treated with Kiran 3.5 x 15 drug-eluting stent which was postdilated with a 4.0 noncompliant balloon atmospheres She has had episodes of orthostatic hypotension limiting her work with PT. Working to adjust meds so that her orthostasis improve. Fall risk with back surgery and need to ensure she can participate with PT. Partner ordered cortisol. Cosyntropin workup ordered and pending. Per NSGY she can d/c to [facility], need CARD to sign off. Per CM no pre-cert needed so will be a quick transfer to [facility] when ready Patient seen by [facility] cardiology group throughout the hospitalization including multiple physicians including her primary aircraft armorer Dr. Grazyna Sexton as well as on June [address] Berger stated the following: NSTEMI: Postoperative after lumbar spine surgery A. ANGELICA ---> proximal calcified Cx * Atherosclerotic cardiovascular disease with history of coronary artery bypass grafting x4 (2008) * Orthostatic hypotension * Hypertension * Dyslipidemia * Psoriatic arthritis * Metabolic encephalopathy * Acute UTI * L5/S1 disc herniation--status post discectomy on 06/12 ?? PLAN: 06/20/2022 Reconsulted for weakness, orthostatic hypotension. Strongly recommend PT despite orthostasis. She will need ambulation and LE strengthening. Use LE compression stockings. IV fluid bolus challenge. Midodrine as last resort, maybe 2.5mg BID, but concern for supine HTN. Overall supportive care. ? 06/18/2022 Reconsulted for episode of chest pain last night. HS Troponin trending down now 703 was 2951 on 06/13 2951. EKG shows no acute ischemic changes. May be GI related. Recommend continuation of PPI while on DAPT. For orthostasis recommend discontinuing her Cardizem for now and reassess response to therapy. May cut down on metoprolol dose if needed. Discussed with Yady Rajan PA-C from hospital medicine. ? 06/14/2022 Current medical therapy appropriate Refer to cardiac rehab Ambulate with PT per surgical recommendations We will plan for outpatient follow-up in 4 weeks ?? 06/13/2022 Urgent cardiac catheterization. I spoke with Neurosurgeon Dr. Odonnell about the situation. We are clear to use anti-platelets and anti-coag as needed. I spoke with Dr. Porras in the dental laboratory manager regarding the case. Followed by [facility] neurosurgery. On June 15 seen by ruthie sherwood who stated the following: POD 3 left L5-S1 facetectomy, foraminotomy, and discectomy Cardiology following for NSTEMI ?? Plan Continue PT/OT. Ok for discharge from NS standpoint. Follow up in [address] Odonnell Orthostatic hypotension -check daily, positive orthostatics??for several days, PT following?? -continue stockings, fluid challenged without significant result, now will start low dose midodrinecaution due to supine hyptertension.?? -continue beta shivam per cards?? -kerwin stim test??06/23??ruled out primary adrenal insufficiency, low suspicion for secondary may needoutpatient endocrinology referral with repeat testing in 6-8 weeks and consideration of dedicated mri, her sodium and k have been normal for several days, hemodynamics have improved. -patient only spending about 1 minute going from laying in bed to standing- counseled to sit for 10mintues if necessary -Much improved on June 27 when she took a few minutes to sit on the side of the bed first before standing. ? ACS -06/13--Successful balloon angioplasty and stenting of subtotal occlusion of proximal circumflex heavily calcified lesion 99% reduced to 10% -predilated with shockwave balloon 3.5 and treated with Kiran 3.5 x 15 drug-eluting stent which was postdilated with a 4.0 noncompliant balloon atmospheres -Echo: mod LVH EF 55% mod tricuspid regurg -Intolerant to brillinta, CARD changed to plavix, continue asa, continue statin ?? Metabolic Encephalopathy, resolved: ??2/2 acute UTI, - complicated by narcotic use and advancing age. As well as hospitalization ?? Complicated UTI, resolved:?? -UA turbid, nitrite+ with 2+ bacteria and suprapubic tenderness. -UA cleared 06/15 ?? L5/S1 disc herniation -PT/OT post-op, ?Resume home dose of lyrica. -06/12-->Left L5-S1 facetectomy with neuroforaminotomies discectomy for decompression of nerve root -fu [address] Odonnell ?? paroxysmal Atrial fibrillation Cardiology recs ASA only as no AFIB since 2012. ?? Psoriatic Arthritis: Controlled on MTX. Immunocompromised: On MTX ??for psoriatic arthritis, takes on . On denosumab twice annually. Resume her methotrexate weekly. Continue folic acid/vit D, MVI supplementation Sunday, June 26, 2022. 45 minutes spent on the follow-up delightful elderly 81-year-old lady was apparently rather independent however she has been in the hospital for 2-1/2 weeks so far. She had surgery on June 12 for back. She is frustrated that all of her problems have not resolved and she feelsthat she is not improving as quickly as she would like to. She also states that she seen some different aircraft armorer but she really likes Dr. Sexton who is followed her for a number of years as an outpatient and she wants to know why he has not seen her here. I did explain that different aircraft armorer because of restraints their schedule rotate through the hospital as well as the Production Team Leader as wellas the clinic. Explained she has multiple medical problems including non-ST elevation ME with drug-eluting stent placed low blood pressure L5-S1 disc hernia surgery. 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 Apparently she is only taking 1 minute 1 minute going from laying in bed to astanding position which leads to presyncope. I told her she really needs to spend more time sittingon the side of the bed. Explained 1 minute slot not long enough for her apparently so she needs to spend more time maybe 10 minutes to see how this works explained that this will take time but as long as she continues to participate in physical therapy I expect that she will improve. Patient's sister is at the bedside her name is Rosaline Roth and. She is very solicitous as well and they are both optimistic that she would be an excellent candidate for rehab with a goal of going home and living independently in the future. ? Monday, June 27, 2022. 35 minutes below follow-up delightful 81-year-old lady her only child who is a daughter is at the bedside.. Very pleasant conversation with the 2 of them. Patient had lived in [facility] for 20 or 30 years but recently moved to [place] within the past couple of years to be closer to family. She lives in a home with her daughter and she stays in the walkout basement that apparently has everything she needs so she does not have to go up and down stairs which is encouraging. Patient is excellent candidate for short- term rehab to improve her strength before going home with her [place] [facility]. Labs drawn today white blood cell count went from 6.1 up to7.0, hemoglobin 11.8, platelets of 334. Creatinine is 0.6 down from 0.7. I am pleased her potassiumimproved from 3.3 up to 3.7. Patient has been off of methotrexate for a few weeks. I will go ahead and resume her methotrexate which she takes weekly on methotrexate restarted on June 4. 20 mg once a week he can recheck a CBC BMP in the morning. From my standpoint patient can go to rehab wh enever they have a bed transportation and preauthorization June daughters at the bedside patient's very excited about going to [facility] she states that she has been there in the past and it was an extremely positive experience for her. She stated that she would like to talk to one of the representatives from [facility]. Patient's nurse was with me at the bedside and asked her to give cardiology a call and see if they could come by and at least say [place] before she goes to help relieve some of the patient's anxiety. I did explain that with age its not uncommon to see blood pressure numbers bounce aroundand that in all likelihood it will be required that these medications are continuously adjusted andchanged based on her condition. The patient is 81 years old she is very enthusiastic and optimisticthat she will do well in rehab with a goal of living independently in her daughters house after shegoes to rehab Studies Performed: Procedures Performed: 06/12/2022 Procedures: Procedure(s): Left L5-S1 facetectomy with neuroforaminotomies discectomy for decompression of nerve root The microscope IN 0800,1.5HRS(R) Diagnosis: Pre-Op Diagnosis Codes: * Spondylosis with myelopathy, lumbar region [M47.16] Post-Op Diagnosis Codes: * Spondylosis with myelopathy, lumbar region [M47.16] ?? Indications: Chen Merritt is an 81 y.o. female with a previous history of an L3- L5 laminectomy fusion who did well from surgery. 2 weeks ago she developed severe left lower extremity pain radiating from her buttock into the hip and down the back of the leg. She had received an injection by pain management with no benefit. She was recently admitted for severe incapacitating pain as well as nausea vomiting and confusion. She was found to have a urinary tract infection. The risks, benefits, and alternatives of the above procedure were discussed and the patient has elected to proceed. ?? Surgeons: Surgeon(s) and Role: * Edith Odonnell MD - Primary Taya Ramos PA-C ?? Findings: see operative report Discharge Medications: Your medication list START taking these medications Instructions Comments Quantity Refills acetaminophen 500 MG tablet Commonly known as: TYLENOL Take 1 tablet (500 mg total) by mouth every 6 (six) hours as needed for up to 10 days. 30 tablet 0 clopidogreL 75 mg tablet Commonly known as: PLAVIX Start taking on: June 29, 2022 Take 1 tablet (75 mg total) by mouth in the morning for 30 days. . 30 tablet 0 miconazole 2 % powder Commonly known as: MICOTIN Apply topically 2 (two) times daily for 10 days. 70 g 0 midodrine 2.5 MG tablet Commonly known as: PROAMATINE Take 1 tablet (2.5 mg total) by mouth in the morning and 1 tablet (2.5 mg total) in the evening. Take before meals. Do all this for 30 days. 60 tablet 0 oxyCODONE 5 MG immediate release tablet Commonly known as: ROXICODONE Take 1 tablet (5 mg total) by mouth every 8 (eight) hours as needed for Pain for up to 10 days . Max Daily Amount: 15 mg 20 tablet 0 CHANGE how you take these medications Instructions Comments Quantity Refills pregabalin 150 MG capsule Commonly known as: LYRICA What changed: ?? medication strength ?? See the new instructions. Take 1 capsule (150 mg total) by mouth nightly for 30 days. Max Daily Amount: 150 mg 30 capsule 0 CONTINUE taking these medications Instructions Comments Quantity Refills aspirin 81 MG EC tablet Take 1 tablet (81 mg total) by mouth in the morning. 0 atorvastatin 40 MG tablet Commonly known as: LIPITOR Take 1 tablet (40 mg total) by mouth nightly. 0 calcium phosphate-vitamin D3 250 mg-12.5 mcg (500 unit) Chew Take 1 tablet by mouth in the morning and 1 tablet before bedtime. 0 Centrum Silver 0.4 mg-300 mcg- 250 mcg Tab Generic drug: pxcpodam-xcp-WR-lycopen-lutein Take 1 tablet by mouth daily . 0 cetirizine 10 MG tablet Commonly known as: ZyrTEC Take 1 tablet (10 mg total) by mouth in the morning. 0 cholecalciferol 25 mcg (1,000 unit) tablet Commonly known as: VITAMIN D3 Take 1 tablet (1,000 Units total) by mouth in the morning. 0 diclofenac 1 % Gel Apply 2 g topically 4 (four) times daily as needed (for Pain). 0 docusate sodium 100 MG capsule Commonly known as: COLACE Take 2 capsules (200 mg total) by mouth in the morning and 2 capsules (200 mg total) before bedtime. 0 folic acid 1 MG tablet Commonly known as: FOLVITE Take 1 tablet (1 mg total) by mouth in the morning. Take everyday except on the day of methotrexate. 0 methotrexate 2.5 MG tablet Take 8 tablets (20 mg total) by mouth once a week. 0 metoprolol tartrate 25 MG tablet Commonly known as: LOPRESSOR Take 1 tablet (25 mg total) by mouth in the morning and 1 tablet (25 mg total) before bedtime. 0 pantoprazole 40 MG tablet Commonly known as: PROTONIX Take 1 tablet (40 mg total) by mouth in the morning. 0 STOP taking these medications dilTIAZem 180 MG 24 hr capsule Commonly known as: CARDIZEM CD HYDROcodone-acetaminophen 7.5-325 mg per tablet Commonly known as: NORCO 7.5-325 losartan 25 MG tablet Commonly known as: COZAAR Prolia 60 mg/mL Syrg Generic drug: denosumab Where to Get Your Medications These [facility] to [facility] [address] [place] [address] [address] [facility] [address] [address] ?? acetaminophen 500 MG tablet ?? clopidogreL 75 mg tablet ?? miconazole 2 % powder ?? midodrine 2.5 MG tablet ?? oxyCODONE 5 MG immediate release tablet ?? pregabalin 150 MG capsule Physical Exam Constitutional: General: She is not in acute distress. Appearance: Normal appearance. She is not toxic-appearing. Comments: Delightful elderly 81-year-old lady very enthusiastic about going to [facility] HENT: Head: Normocephalic and atraumatic. Nose: No congestion or rhinorrhea. Eyes: General: No scleral icterus. Extraocular Movements: Extraocular movements intact. Pupils: Pupils are equal, round, and reactive to light. Cardiovascular: Rate and Rhythm: Normal rate and regular rhythm. Heart sounds: No murmur heard. Pulmonary: Effort: Pulmonary effort is normal. No respiratory distress. Breath sounds: Normal breath sounds. No wheezing. Abdominal: General: Bowel sounds are normal. There is no distension. Palpations: Abdomen is soft. Tenderness: There is no abdominal tenderness. There is no rebound. Musculoskeletal: General: No swelling or tenderness. Cervical back: Normal range of motion and neck supple. Right lower leg: No edema. Left lower leg: No edema. Comments: Significant psoriatic arthritis history Skin: Capillary Refill: Capillary refill takes less than 2 seconds. Coloration: Skin is not jaundiced. Findings: No erythema. Neurological: General: No focal deficit present. Mental Status: She is alert and oriented to person, place, and time. Cranial Nerves: No cranial nerve deficit. Motor: No weakness. Psychiatric: Mood and Affect: Mood normal. Behavior: Behavior normal. Comments: Patient frustrated by prolonged hospitalization however she is optimistic that she will participate in physical therapy at [facility] Discharge Instructions Discharge Diet: Healthy heart diet Discharge Activity: Advance with physical therapy but taking great care to not go from a laying down to standing position quickly. Recommended she set a timer for 10 minutes of sitting on the side ofthe bed before she attempts to stand. Discharge Follow UP: Contact information for follow-up [facility] Specialty: [facility] [address] [place], [place] [address]Y [address] [facility] [address] Next Steps: Follow up GRAZYNA DOWELL MD Specialty: Cardiology [address] [facility] [address] [place] [address] Next Steps: Follow up in 1 month(s) Instructions: Dr. Grazyna Dowell 07/27/22 @10:30AM [facility] [address] [facility] [address] [place] [address] Office Mayank Angel MD Specialty: Family Medicine Relationship: PCP - General [id number] [facility] [phone] Next Steps: Follow up in 1 week(s) Instructions: Dr. Mayank Angel 06/26/22 @9:45am [facility] Primary Care [address] [facility] [address] Office EDITH ODONNELL MD Specialty: Neurosurgery [address] [facility] [address] Next Steps: Follow up Instructions: Dr. Edith Odonnell 07/25/22 @10:45AM [facility] Neurosurgery [address] [place] [address] [address] [place] [address] Odonnell's office, no x-rays or suture removal Time Spent: 45 minutes spent on the follow-up and discharge delightful 81-year-old lady. Greater than 50% time spent in counseling coronation including discussion with patient's nurse at the bedside as well as with the case management team. Electronically signed by Gustabo Galarza MD, 06/28/22, 11:44 AM EDT documented in this encounter Discharge Instructions * Discharge Instructions* Dulce Hart RN - 06/15/2022 10:05 AM EDT Lumbar Spine Discharge Information What to expect after surgery: Mild swelling around the incision site. This will go away with time Stiffness and pain at the incision site. Leg pain due to nerve root irritation during surgery- usually improves with time Tiredness is normal after surgery- it may take a week or so to regain your strength You should only be in bed to sleep Dressing Do not apply any lotions or ointments to your incision [place] will be removed in office Steri-strips or white tape, surgical glue or mesh may fall off on their own, or can be taken off in10-2 days Use antibacterial soap before and after changing the dressing DO NOT: Submerge in a pool, bathtub, hot tub, or allow the shower to beat directly on your incision. . Comfort Measures Use ice as needed. Don't put the ice directly on your skin, keep a barrier between your incision and the ice. Change positions often- walking and lying down are best postures Take prescription medications as indicated Brace If your doctor prescribes a brace, you may remove it to wash up and to sleep. Do not wear your brace in bed. Have it on when you're up and about! Activity Stairs are okay, do not climb ladders Light activity, walking on level surfaces & sexual relations are permitted but may be limited by pain. Remember ???BLT?? No Bending, Lifting, or Twisting rule Drive when you are no longer taking pain medication Return to work 2-8 weeks when allowed by the surgeon. DO NOT lift over 10 pounds, mow the lawn, sweep, vacuum, dust, wash windows, rake leaves, shovel, or hike. Other Smoking cigarettes or inhaling secondhand smoke can make your fusion unsuccessful Do not take osteoporosis medications until 2 months after your surgery If your surgery included a fusion, do NOT take any anti-inflammatory medications (NSAIDs, ie. Aleve, Advil, Motrin, etc.) for at least 8 weeks after surgery! Do NOT overuse prescription medications. You must follow directions closely. As needed means you should only take them when you are feeling pain and taking them in the directed time frame (eg. Every 4 hours.) Refills will be given ONLY if you have used the medications appropriately as directed. * Discharge Instr - Diet* Dorinda Couch RN - 06/17/2022 7:24 AM EDT Resume your usual Heart Healthy diet as tolerated. * Attachments The following attachments cannot be sent through Care Everywhere. * Coronary Angiogram Care After (Uzbek) * Femoral Site Care (Uzbek) * Urinary Tract Infection Adult Gjim-ay-Cffg (Uzbek) documented in this encounter Medications at Time [...] total) by mouth once a week. 10/31/2021 nghtoyew-fri-GF- lycopen-lutein (Centrum Silver) 0.4 mg-300 mcg- 250 mcg Tab Take 1 tablet by mouth daily . pantoprazole (PROTONIX) 40 MG tablet Take 1 tablet (40 mg total) by mouth daily. acetaminophen (TYLENOL) 500 MG tablet Take 1 tablet (500 mg total) by mouth every 6 (six) hours as needed for up to 10 days. 30 tablet 06/28/2022 3 clopidogreL (PLAVIX) 75 mg tablet Take 1 tablet (75 mg total) by mouth in the morning for 30 days. . 30 tablet 06/29/2022 3 miconazole (MICOTIN) 2 % powder Apply topically 2 (two) times daily for 10 days. 70 g 06/28/2022 3 oxyCODONE (ROXICODONE) 5 MG immediate release tablet Take 1 tablet (5 mg total) by mouth every 8 (eight) hours as needed for Pain for up to 10 days . Max Daily Amount: 15 mg 20 tablet 06/28/2022 3 pregabalin (LYRICA) 150 MG capsule Take 1 capsule (150 mg total) by mouth nightly for 30 days. Max Daily Amount: 150 mg 30 capsule 06/28/2022 3 metoprolol tartrate (LOPRESSOR) 50 MG tablet Take 1 tablet (50 mg total) by mouth in the morning and 1 tablet (50 mg total) before bedtime. 4 midodrine (PROAMATINE) 2.5 MG tablet Take 1 tablet (2.5 mg total) by mouth in the morning and 1 tablet (2.5 mg total) in the evening. Take before meals. Do all this for 30 days. 60 tablet 06/28/2022 3 documented as of this encounter Progress Notes * Dorinda Graham RN - 06/28/2022 1:33 PM EDT 06/28/22 1332 Final Discharge Plan PCP referral provided? No Community Referral Discussed with Patient? Yes Patient appealing discharge? No Patient returning to prior living situation? No Support Systems Children;Family members Agency Type Inpatient Rehab Inpatient Rehab Name and Number [facility] Transportation Provider [facility] Transportation Provider Phone [phone] Date of desktop support associate 06/28/22 Time of desktop support associate [phone] Patient to DC to [facility] Med Unit today via [facility] wheelchair van transportation. IM and choice signed and on chart 06/28/22. Dorinda Graham RN * Kimmie Jeremi, ARIK - 06/28/2022 10:07 AM EDT Images from the original note were not included. Inpatient Physical Therapy Treatment Patient Name: Chen Merritt Date of : 1940 Date of Treatment: 06/28/22 Start Time 1007 Stop Time 1047 Session Duration 30 minutes General Visit type: Treatment Approved by: Nurse SHIRLEY fernandez to treat Patient Disposition Upon Entry: Supine in bed, Call Light/Pull Cord in reach, Visitor/Family present Assisted by: hvac service technician Precautions Weight-Bearing Status: No Restrictions Precautions: Fall risk , Comment: orthostatic hypotension Isolation Precautions: Standard Subjective Subjective: Patient agreeable to physical therapy treatment. Pain No - Patient not reporting pain at this time Cognition Overall cognitive status: WFL Orientation Level: Oriented x4 Objective Vitals Vitals Supine Sitting Standing BP Post 147/89 mmHg 136/88 mmHg 82/53 mmHg Patient BP seated directly after standing 103/70, 126/87 Functional Mobility Bed Mobility: Supine to Sit: minimal assistance Sit to Supine: moderate assistance Transfers Sit to Stand: minimal assistance, 2-person assist Stand to Sit: minimal assistance, 2-person assist Gait Not safe to attempt due to medical condition or safety Balance Static/dynamic sitting and static/dynamic standing balance grades Balance Grade Sitting Static Good - patient able to maintain balance without handhold support, limited postural sway Sitting Dynamic Good - patient accepts moderate challenge; able to maintain balance while picking object off floor Standing Static Poor - patient requires handhold support and moderate to maximal assistance to maintain position Standing Dynamic Poor - patient unable to accept challenge or move without loss of balance Activity Tolerance Patient limited with activity/intervention due to dizziness and arthostatic hypotension. Assessment Patient able to tolerate 10 mins of sitting EOB before attempting sit to stand with no complaints of dizziness or orthostatic symptoms, upon standing patient BP dropped and complained of symptoms, Patient returned to sitting and vitals assessed with BP elevating with seated rest, Patient is progressing well with seated tolerance but has difficulty with tolerance to standing and limited by orthostatic hypotension would benefit from cont with therapy to address deficits Plan Treatment plan: Continue per plan of care. PT Frequency/Duration: 5x/week for 14 days Recommendations Discharge recommendations: Patient would benefit from 3 hours of intensive multidisciplinary therapy per day to maximize functional outcomes and address functional limitations to return to highest level of functioning. DME recommendations: Unable to make recommendations at this time. Goals Supine to/from sit:??supervision Sit to/from stand:??supervision with RWx?? Gait:??50ft, Rwx, Tyson Transfer:??Tyson, Rwx?? Goals date 06/29/22 Progress towards goals: progressing Education Patient educated on role of physical therapy, transfers and bed mobility and following, they were able to verbalize understanding. No further questions or concerns stated. Patient Disposition Upon Leaving Supine in bed, Call Light/Pull Cord in reach, All needs met and within reach, HOB >30 degrees, Visitor/Family present If this patient discharges prior to next therapy session, this note serves as the patient's discharge summary. Electronically signed by Kimmie Blood PTA - 06/28/2022 - 12:19 PM EDT Cosigned by Mike Faustin PT at 07/05/2022 11:08 AM EDT Associated attestation - Mike Faustin PT - 07/05/2022 10:08 AM CDT I, Mike Faustin PT, DPT, reviewed the notes, assessments, and/or procedures performed by Kimmie Blood PTA, I concur with their documentation of Chen Merritt. Electronically signed by Mike Faustin PT, DPT - 07/05/22 - 11:08 AM EST * Dorinda Graham RN - 06/27/2022 2:00 PM EDT Discharge Plan Progress Note [facility] rep Marie has submitted patient to [facility] for approval. Awaiting decision Dorinda Graham RN * Gustabo Galarza MD - 06/27/2022 12:28 PM EDT Images from the original note were not included. Subjective Review of Systems Objective Last Recorded Vitals Blood pressure (!) 148/93, pulse 93, temperature 97.2 ??F (36.2 ??C), resp. rate 16, height 1.6 m (5' 2.99 ), weight 68 kg (150 lb), SpO2 95 %. Physical Exam Labs: Results for orders placed or performed during the hospital encounter of 06/10/22 (from the past 24 hour(s)) CBC with automated diff Status: Abnormal Collection Time: 06/27/22 8:56 AM Result Value Ref Range WBC 7.0 4.5 - 10.5 K/??L RBC 3.69 (L) 3.93 - 5.22 M/??L Hemoglobin 11.8 11.2 - 15.7 GM/DL Hematocrit 35.2 34.1 - 44.9 % MCV 95 79 - 95 fL MCH 32.0 25.6 - 32.2 pg MCHC 33.5 32.2 - 36.5 GM/DL RDW 15.0 (H) 11.7 - 14.9 % Platelets 334 163 - 369 K/CU MM MPV 10.5 9.4 - 12.4 fL % Neutros 61 34 - 71 % % Lymphs 26 19 - 53 % % Monos 7 3 - 9 % % Eos 5 (H) 0 - 1 % % Baso 1 0 - 2 % NRBC Absolute 0.00 0 - 0.12 K/ul # Neutros 4.23 1.56 - 6.13 K/??L # Lymphs 1.82 1.00 - 3.50 K/??L # Monos 0.52 0.16 - 1.00 K/??L # Eos 0.35 0.00 - 0.80 K/??L # Baso 0.04 0.00 - 0.20 K/??L Immature Granulocytes-Relative 0.30 0.00 - 0.60 % # IG 0.02 0.00 - 0.05 K/uL Comprehensive metabolic panel Status: Abnormal Collection Time: 06/27/22 8:56 AM Result Value Ref Range Sodium 137 136 - 146 meq/L Potassium 3.7 3.5 - 5.1 meq/L Chloride 105 102 - 112 meq/L CO2 20 (L) 21 - 32 meq/L Calcium 9.8 8.4 - 10.1 mg/dL Glucose 140 (H) 74 - 106 mg/dL BUN 15 7 - 22 mg/dL Creatinine 0.66 0.55 - 1.02 mg/dL BUN/Creatinine 23 (H) 8 - 20 Albumin 2.6 (L) 3.4 - 5.0 g/dL Alkaline Phosphatase 68 27 - 136 U/L ALT 26 13 - 56 U/L AST 26 5 - 37 U/L Total Bilirubin 0.7 0.2 - 1.2 mg/dL Protein, Total 6.3 (L) 6.4 - 8.2 gm/dL Anion Gap 16 9 - 20 A/G Ratio 0.7 (L) 1.1 - 2.5 Globulin 3.7 1.5 - 4.5 g/dL Osmolality Calc 277.0 eGFR (mL/min/1.73m2) >60 >=60 mL/min/1.73m2 Ultrasound-guided vascular access Vascular Procedure Demographics Patient Name JOHN Mallory Age 81 Patient Number [id number] Gender Female Race Ethnicity Corporate ID [id number] Height 62 Date of 1940 Weight 150 Accession Number [id number] BSA 1.69 m^2 Room Number [id number] BMI 27.44 kg/m^2 Referring Physician ARSLAN PORRAS Interpreting Physician ARSLAN PORRAS DO Health [facility] Procedure Type of Study: US GUIDED VASCULAR ACCESS : . Impressions Summary INDICATION: Angina at rest I20.8 . RIGHT: Ultrasound guided vascular access of Common femoral artery . COYOTE HUNTER was 3.0 cm in depth and patent. Access was successful. Allergies - Bactrim. - Morphine:(claritin). - Sulfa. Patient Status:Inpatient . Study Location:Portable. Technical Quality:Good visualization. Risk Factors - The patient's risk factor(s) include: treated arterial hypertension and prior CABG. - The patient's last creatinine was 0.8 mg/dl. Signature Assessment Plan Discharge Planning: HOSPITALIST PROGRESS NOTE Patient: Chen Merritt Date: 06/25/22 Subjective Date of Service: 06/25/22 5-8 No new complaints. She became lightheaded and pre-syncopal when standing today. June 26, 2022. Patient's sister is at the bedside as well as patient's nurse Corry joined me as well.The patient's been here for over 2 weeks. Patient and her sister are frustrated they feel that she is not improving they stated that she felt a little bit lightheaded when going from a laying down position to a standing position. She states that she spent many days in the hospital bed without getting up. Explained that given the advanced age that seems to be not unexpected. We also went over a list of medical problems including non-ST elevation ME low blood pressure disc hernia surgery repair June 12 heart disease high cholesterol psoriatic arthritis immunocompromised cortisol deficiency as well as orthostatic hypotension. She states that when she goes from a laying to a standing position that she only sits on the side of the bed for about 1 minute. I explained that it needs to be much longer. For her may be 10 minutes before attempting to stand. She states that she does not like getting in the chair because of her back pain. No fevers or chills no chest pain palpitations no shortness of breath coughing or wheezing. Monday, June 27, 2022. Patient's daughter normally child is at the bedside. Patient states that she did better with physical therapy and that this time she sat on the side of the bed for 3 or 4 minutes before standing and this allowed her to stand up without feeling that she is going to pass out.Patient denies any fevers or chills this morning. No nausea vomiting no diarrhea constipation. Patient nurse joined me at the bedside. Patient states that she is originally from [facility] she lived there for 20 to 30 years and that she moved to [place] couple of years ago to be closer to family. 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 Patient agreeable to going to short-term rehab with a goal of going home and being more independent. She states that for her psoriatic arthritis is acting up and her left wrist. Methotrexate apparentlystopped a few weeks ago. Objective Vitals: Temp: [97.2 ??F (36.2 ??C)-98.3 ??F (36.8 ??C)] 97.2 ??F (36.2 ??C) Pulse: [86-102] 93 Resp: [16] 16 BP: (104-169)/(69-93) 148/93 Intake/Output: Intake/Output Summary (Last 24 hours) at 06/27/2022 1231 Last data filed at 06/26/2022 2300 Gross per 24 hour Intake -- Output 601 ml Net -601 ml Physical exam: General: Alert and oriented, no acute distress, elderly 81-year-old female Neurologic: Awake, alert, and oriented X3, no apparent focal deficits Eye: EOMI, normal conjunctiva HENT: Normocephalic, atraumatic Neck: no carotid bruits, no JVD Lungs: Clear to auscultation, non-labored respiration Heart: Normal rate, regular rhythm, no murmur Abdomen: Soft, non-tender, non-distended, normal bowel sounds Musculoskeletal: Normal range of motion and strength, no tenderness or swelling, weak and debilitated, patient with psoriatic arthritis she states her arthritis is acting up in the left wrist Skin: Skin is warm, dry, no rashes or lesions Psychiatric: Cooperative, appropriate mood and affect pleasant lady Labs: Results for orders placed or performed during the hospital encounter of 06/10/22 (from the past 24 hour(s)) CBC with automated diff Status: Abnormal Collection Time: 06/27/22 8:56 AM Result Value Ref Range WBC 7.0 4.5 - 10.5 K/??L RBC 3.69 (L) 3.93 - 5.22 M/??L Hemoglobin 11.8 11.2 - 15.7 GM/DL Hematocrit 35.2 34.1 - 44.9 % MCV 95 79 - 95 fL MCH 32.0 25.6 - 32.2 pg MCHC 33.5 32.2 - 36.5 GM/DL RDW 15.0 (H) 11.7 - 14.9 % Platelets 334 163 - 369 K/CU MM MPV 10.5 9.4 - 12.4 fL % Neutros 61 34 - 71 % % Lymphs 26 19 - 53 % % Monos 7 3 - 9 % % Eos 5 (H) 0 - 1 % % Baso 1 0 - 2 % NRBC Absolute 0.00 0 - 0.12 K/ul # Neutros 4.23 1.56 - 6.13 K/??L # Lymphs 1.82 1.00 - 3.50 K/??L # Monos 0.52 0.16 - 1.00 K/??L # Eos 0.35 0.00 - 0.80 K/??L # Baso 0.04 0.00 - 0.20 K/??L Immature Granulocytes-Relative 0.30 0.00 - 0.60 % # IG 0.02 0.00 - 0.05 K/uL Comprehensive metabolic panel Status: Abnormal Collection Time: 06/27/22 8:56 AM Result Value Ref Range Sodium 137 136 - 146 meq/L Potassium 3.7 3.5 - 5.1 meq/L Chloride 105 102 - 112 meq/L CO2 20 (L) 21 - 32 meq/L Calcium 9.8 8.4 - 10.1 mg/dL Glucose 140 (H) 74 - 106 mg/dL BUN 15 7 - 22 mg/dL Creatinine 0.66 0.55 - 1.02 mg/dL BUN/Creatinine 23 (H) 8 - 20 Albumin 2.6 (L) 3.4 - 5.0 g/dL Alkaline Phosphatase 68 27 - 136 U/L ALT 26 13 - 56 U/L AST 26 5 - 37 U/L Total Bilirubin 0.7 0.2 - 1.2 mg/dL Protein, Total 6.3 (L) 6.4 - 8.2 gm/dL Anion Gap 16 9 - 20 A/G Ratio 0.7 (L) 1.1 - 2.5 Globulin 3.7 1.5 - 4.5 g/dL Osmolality Calc 277.0 eGFR (mL/min/1.73m2) >60 >=60 mL/min/1.73m2 Radiology: Radiology Results (last 3 days) No results found for the last 72 hours. Medications: Scheduled Meds: ??? aspirin 81 mg Oral Daily 81 mg at 06/27/22 1039 ??? atorvastatin 40 mg Oral Every Night 40 mg at 06/26/222023 ??? cetirizine 10 mg Oral Daily 10 mg at 06/26/22 1006 ??? cholecalciferol 1,000 Units Oral Daily 1,000 Units at 06/27/22 1048 ??? clopidogreL 75 mg Oral Daily 75 mg at 06/27/22 1039 ??? docusate sodium 100 mg Oral BID 100 mg at 06/27/22 1040 ??? enoxaparin 40 mg Subcutaneous Q24H CHRIS 40 mg at 06/27/22 1041 ??? famotidine 20 mg Oral BID 20 mg at 06/27/22 1039 ??? fluticasone propionate 2 spray Each Nare BID 2 spray at 06/27/22 1042 ??? folic acid 1,000 mcg Oral Daily 1,000 mcg at 06/27/22 1048 ??? methotrexate 20 mg Oral Weekly 20 mg at 06/21/224 ??? metoprolol tartrate 25 mg Oral BID 25 mg at 06/27/22 1040 ??? miconazole Topical BID Given at 06/26/222024 ??? miconazole Topical (Top) BID Given at 06/26/222024 ??? midodrine 2.5 mg Oral BID AC 2.5 mg at 06/27/22 0649 ??? multivitamin 1 tablet Oral Daily 1 tablet at 06/27/22 1041 ??? pantoprazole 40 mg Oral Daily 40 mg at 06/27/22 1041 ??? polyethylene glycol 3350 17 g Oral Daily 17 g at 06/27/22 1041 ??? pregabalin 150 mg Oral Every Night 150 mg at 06/26/222023 ??? Saccharomyces boulardii 250 mg Oral BID 250 mg at 06/27/22 1039 Continuous Infusions: PRN Meds: ??? acetaminophen ??? acetaminophen ??? aluminum-magnesium hydroxide-simethicone ??? calcium carbonate ??? calcium gluconate And ??? calcium gluconate And ??? calcium gluconate ??? dextrose ??? diclofenac ??? fluconazole ??? magnesium ??? magnesium ??? naloxone ??? ondansetron Or ??? ondansetron PF ??? oxyCODONE ??? potassium chloride ??? sodium phosphate And ??? sodium phosphate Assessment and Plan Orthostatic hypotension -check daily, positive orthostatics for several days, PT following -continue stockings, fluid challenged without significant result, now will start low dose midodrinecaution due to supine hyptertension. -continue beta shivam per cards -kerwin stim test 06/23 ruled out primary adrenal insufficiency, low suspicion for secondary may need outpatient endocrinology referral with repeat testing in 6-8 weeks and consideration of dedicated mri, her sodium and k have been normal for several days, hemodynamics have improved. -patient only spending about 1 minute going from laying in bed to standing- counseled to sit for 10mintues if necessary -Much improved on June 27 when she took a few minutes to sit on the side of the bed first before standing. ACS -06/13--Successful balloon angioplasty and stenting of subtotal occlusion of proximal circumflex heavily calcified lesion 99% reduced to 10% -predilated with shockwave balloon 3.5 and treated with Powell 3.5 x 15 drug-eluting stent which was postdilated with a 4.0 noncompliant balloon atmospheres -Echo: mod LVH EF 55% mod tricuspid regurg -Intolerant to brillinta, CARD changed to plavix, continue asa, continue statin ?? Metabolic Encephalopathy, resolved: ??2/2 acute UTI, - complicated by narcotic use and advancing age. As well as hospitalization ?? Complicated UTI, resolved: -UA turbid, nitrite+ with 2+ bacteria and suprapubic tenderness. -UA cleared 06/15 ?? L5/S1 disc herniation -PT/OT post-op, ?Resume home dose of lyrica. -06/12-->Left L5-S1 facetectomy with neuroforaminotomies discectomy for decompression of nerve root -fu [address] Odonnell ?? paroxysmal Atrial fibrillation Cardiology recs ASA only as no AFIB since 2012. ?? Psoriatic Arthritis: Controlled on MTX. Immunocompromised: On MTX ??for psoriatic arthritis, takes on . On denosumab twice annually. Resume her methotrexate weekly. Continue folic acid/vit D, MVI supplementation. ?? VTE Ppx: lovenox GI Ppx: pantoprazole ?? Dispo:??Improved orthostasis. Improved when she took a few minutes to sit on the side of the bed first before standing pt will need to be able to work with PT and not have orthostasis. [facility] following ?? Diet: Orders Placed This Encounter Procedures ??? Regular Diet Code Status: Current Code Status Full code Medical Decision Making: Discharge Disposition: Looking at [facility] or other rehab facilities. Continue measures and PT. Eventually to rehab when able to wok with PT. Sunday, June 26, 2022. 45 minutes spent on the follow-up delightful elderly 81-year-old lady was apparently rather independent however she has been in the hospital for 2-1/2 weeks so far. She had surgery on June 12 for back. She is frustrated that all of her problems have not resolved and she feelsthat she is not improving as quickly as she would like to. She also states that she seen some different aircraft armorer but she really likes Dr. Sexton who is followed her for a number of years as an outpatient and she wants to know why he has not seen her here. I did explain that different aircraft armorer because of restraints their schedule rotate through the hospital as well as the Production Team Leader as wellas the clinic. Explained she has multiple medical problems including non-ST elevation ME with drug-eluting stent placed low blood pressure L5-S1 disc hernia surgery. 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 Apparently she is only taking 1 minute 1 minute going from laying in bed to astanding position which leads to presyncope. I told her she really needs to spend more time sittingon the side of the bed. Explained 1 minute slot not long enough for her apparently so she needs to spend more time maybe 10 minutes to see how this works explained that this will take time but as long as she continues to participate in physical therapy I expect that she will improve. Patient's sister is at the bedside her name is Rosaline Roth and. She is very solicitous as well and they are both optimistic that she would be an excellent candidate for rehab with a goal of going home and living independently in the future. Monday, June 27, 2022. 35 minutes below follow-up delightful 81-year-old lady her only child who is a daughter is at the bedside.. Very pleasant conversation with the 2 of them. Patient had lived in [facility] for 20 or 30 years but recently moved to [place] within the past couple of years to be closer to family. She lives in a home with her daughter and she stays in the walkout basement that apparently has everything she needs so she does not have to go up and down stairs which is encouraging. Patient is excellent candidate for short- term rehab to improve her strength before going home with her daughter [place] [facility] [place]. Labs drawn today white blood cell count went from 6.1 up to7.0, hemoglobin 11.8, platelets of 334. Creatinine is 0.6 down from 0.7. I am pleased her potassiumimproved from 3.3 up to 3.7. Patient has been off of methotrexate for a few weeks. I will go ahead and resume her methotrexate which she takes weekly on methotrexate restarted on June 4. 20 mg once a week he can recheck a CBC BMP in the morning. From my standpoint patient can go to rehab whenever they have a bed transportation and preauthorization. Signed: Gustabo Galarza MD 06/27/2022, 12:27 AM * Alma Luong, PT - 06/27/2022 11:32 AM EDT Images from the original note were not included. Inpatient Physical Therapy Treatment Patient Name: Chen Merritt Date of : 1940 Date of Treatment: 06/27/22 Start Time 1132 Stop Time 1203 Session Duration 31 minutes General Visit type: Treatment Approved by: Nurse Turpin Patient Disposition Upon Entry: Supine in bed Co-treated by: OT, assisted by vocational rehabilitation administrator Precautions Weight-Bearing Status: No Restrictions Precautions: Fall risk , orthostatic hypotension Isolation Precautions: Standard Subjective Subjective: Patient agreeable to physical therapy treatment. Pain Yes. 0-10 SCALE Pain location: L wrist / arm did not rate, reported it is much better since she gave me tylenol referring to her RN Cognition Arousal/Alertness: Appropriate response to stimuli Attention Span: Appears intact Following commands: Follows all commands and directions without difficulty Safety Judgment: Good awareness of safety precautions Deficits: Fully aware of deficits Objective Vitals Vitals Supine Sitting Standing BP 170/96 mmHg 143/91 mmHg 78/49 mmHg BP taken again after pt sat EOB ~5 min after standing and =114/74 mmHg. Functional Mobility Bed Mobility: Rolling Left: supervision, with rails Rolling Right: supervision, with rails Supine to Sit: minimal assistance, HOB elevated Sit to Supine: maximal assistance, 2-person assist, secondary to pt dizzy and states it's going black Transfers Sit to Stand: minimal assistance, 2-person assist, gait belt used, rolling walker used Stand to Sit: minimal assistance, 2-person assist, gait belt used, rolling walker used, hand held assist Completed 1st sit to stand, stood ~1 min with RWx static stand but BP too low and pt began to feel dizzy. Stood 2nd time in attempt to just do reps of sit to stand with STAFFING MANAGER, but pt unable to tolerate>1 rep. Gait attempted, unable to stand > 1 min and BP dropped signficantly with pt symptomatic, unable to safely ambulate Balance Static/dynamic sitting and static/dynamic standing balance grades Balance Grade Sitting Static Good - patient able to maintain balance without handhold support, limited postural sway Sitting Dynamic Good - patient accepts moderate challenge; able to maintain balance while picking object off floor Standing Static Poor - patient requires handhold support and moderate to maximal assistance to maintain position Standing Dynamic Poor - patient unable to accept challenge or move without loss of balance Pt sat on EOB ~ 10 min with supervision. Activity Tolerance Pt limited with activity/intervention due to dizziness and orthostatic hypotension Assessment Pt is motivated, but continues to be limited by orthostatic hypotension. She is tolerating sitting activity well, but limited with standing and ambulation. Pt will benefit from continued treatment during LOS to address stated deficits and work toward established goals. Problems: see initial eval Rehab potential: Fair Plan Treatment plan: Continue per POC. PT Frequency/Duration: 5x/week for 14 days Recommendations Discharge recommendations: Patient would benefit from 3 hours of intensive multidisciplinary therapy per day to maximize functional outcomes and address functional limitations to return to highest level of functioning. DME recommendations: none if discharging to rehab Goals Supine to/from sit:??supervision Sit to/from stand:??supervision with RWx Gait:??50ft, Rwx, Tyson Transfer:??Tyson, Rwx?? Goals date 06/29/22 Progress towards goals: progressing Education Patient educated on use of call button, role of physical therapy, plan of care, transfers and bed mobility and following, they were able to verbalize and demonstrate understanding. No further questions or concerns stated. Patient Disposition Upon Leaving Call Light/Pull Cord in reach, All needs met and within reach, in partial chair position in bed perRN request, new pure wick in place and to suction If this patient discharges prior to next therapy session, this note serves as the patient's discharge summary. Electronically signed by Alma Luong, PT - 06/27/2022 - 1:43 PM EDT * ADILENE Landry/Tricia - 06/27/2022 11:32 AM EDT Images from the original note were not included. Inpatient Occupational Therapy Treatment Note Patient Name: Chen Merritt Date of : 1940 Date of Treatment: 06/27/22 Start Time: 1132 Stop Time: 1203 Session Duration: 31 This patient is a 81 y.o. female admitted on 06/10/2022 with Weakness [R53.1] Acute respiratory failure with hypoxia (HCC) [J96.01] Urinary tract infection without hematuria, site unspecified [N39.0] Altered mental status, unspecified altered mental status type [R41.82] Midline low back pain without sciatica, unspecified chronicity [M54.50]. Past Medical History: Diagnosis Date ??? Arthritis ??? Coronary artery disease ??? Hyperlipidemia ??? Hypertension ??? Lumbar spondylolysis ??? ME (myocardial infarction) (HCC) ??? Osteopenia ??? Psoriatic arthritis (HCC) ??? Psoriatic arthritis (HCC) Past Surgical History: Procedure Laterality Date ??? CHOLECYSTECTOMY ??? HYSTERECTOMY ??? LAMINECTOMY,LUMBAR Left 06/12/2022 Procedure: (LT L5-S1 FACETECTOMY AND NEUROFORAMINOTOMY; Surgeon: Edith Odonnell MD; Location: [facility] OR; Service: Neurosurgery; Laterality: Left; [place] 0800,1.5HRS(R) ??? LAMINECTOMY,LUMBAR W/FUSION N/A 12/14/2021 Procedure: L3-5, L5-S1 FUSION AND DECOMPRESSION AUGMENTATION WITH ZIEHM; Surgeon: Edith Odonnell MD; Location: [facility] OR; Service: Neurosurgery; Laterality: N/A; [place] 0830. 3 HRS (R). PASS. AIRO. PRE CERT STARTED, ??? open heart 2008 4 bypass General Visit type: Treatment Approved by: Nursing Patient disposition upon entry: Supine in bed Co-treated by: PT Assisted by: hvac service technician Precautions Weightbearing status: No restrictions Precautions: Fall risk, orthostatic hypertension Isolation precautions: Standard Subjective Subjective: Pt agreeable Pain 0-10 SCALE Pain location: L wrist/arm Pt did not rate pain on scale Cognition Cognition: Overall cognitive status: WFL Arousal/alertness: Appropriate response to stimuli Following commands: Follows all commands and directions without difficulty Objective Vitals: Vitals Supine Sitting Standing BP 170/96 mmHg 143/91 mmHg 78/49 mmHg Bed mobility:Rolling: Supervision Supine to sit: Minimal assistance, Head of bed elevated Sit to supine: Maximal assistance, 2 person assist secondary d/t dizziness stating it's going black Transfers:Sit to stand:Minimal assistance, 2 person assist, Gait belt used, Rolling walker used Stand to sit:Minimal assistance, 2 person assist, Gait belt used, Rolling walker used Pt completed 1 stand for ~1min w/RWx but BP registered low. Pt sat back on EOB fors few minutes andstood a second time. However pt was not able to perform any more. Balance:Static sitting balance:Good: Patient able to maintain balance without handheld support; limited postural sway Dynamic sitting balance:Good: Patient accepts moderate challenge; able to maintain balance while picking object off the floor Static standing balance:Poor: Patient required handheld support and moderate to maximal support to maintain position Dynamic standing balance:Poor: Patient unable to accept challenge or move without loss of balance Activity Tolerance Pt limited with activity/intervention due to orthostatic hypotension Treatment Pt Min A for supine to sit on EOB. Pt sat at EOB for ~10 minutes. Pt orthostatic vitals were taken and registered above. Pt Min Ax2 for sit to stand with RWx. Pt began feeling dizzy and was sat on EOB. Pt attempted additional stand after symptoms resided. After second stand pt stated her vision began going black. Pt Max Ax2 for sit to supine secondary to dizziness. Pt Max A for LBD task of donning/doffing brief. Assessment Assessment Pt is progressing towards goals and should continue OT POC. Pt is motivated but is currently has been limited in therapy d/t orthostatic hypotension. Pt is good candidate for IPR. Plan Recommendations Discharge recommendations: Patient would benefit from 3 hours of intensive multidisciplinary therapy per day to maximize functional outcomes and address functional limitations to return to highest level of functioning. DME recommendations: Unable to make adaptive/DME recommendations at this time. Treatment Plan: Continue OT POC OT Frequency/Duration: 5x/week for 14 days Goals Lower body dressing: Pt will complete??lower body dressing??with modified independence??using pilot control operator helper, long handled shoehorn, sock aid. Bed mobility: Pt will complete??supine to sit??with modified independence supervision??using head of bed elevated, use of bed rails. Functional transfers: Pt will complete??toilet transfer??with modified independence??using rolling walker. Progress towards goals: progressing Goals were discussed with patient Patient Disposition Upon Leaving Bed placed in chair position, Call Light/Pull Cord in reach, All needs met and within reach, Nursing aware/notified If this patient discharges prior to next therapy session, this note serves as the patient's discharge summary. Electronically signed by SALUD Landry - 06/27/2022 - 3:45 PM EDT * Gustabo Galarza MD - 06/26/2022 4:29 PM EDT Images from the original note were not included. Subjective Review of Systems Objective Last Recorded Vitals Blood pressure 118/76, pulse 97, temperature 98.3 ??F (36.8 ??C), resp. rate 18, height 1.6 m (5' 2.99 ), weight 68 kg (150 lb), SpO2 96 %. Physical Exam Labs: Results for orders placed or performed during the hospital encounter of 06/10/22 (from the past 24 hour(s)) Basic Metabolic Panel Status: Abnormal Collection Time: 06/26/22 10:56 AM Result Value Ref Range Sodium 135 (L) 136 - 146 meq/L Potassium 3.3 (L) 3.5 - 5.1 meq/L Chloride 104 102 - 112 meq/L CO2 20 (L) 21 - 32 meq/L Anion Gap 14 9 - 20 BUN 14 7 - 22 mg/dL Creatinine 0.75 0.55 - 1.02 mg/dL BUN/Creatinine 19 8 - 20 Glucose 162 (H) 74 - 106 mg/dL Calcium 9.5 8.4 - 10.1 mg/dL Osmolality Calc 274.1 eGFR (mL/min/1.73m2) >60 >=60 mL/min/1.73m2 Ultrasound-guided vascular access Vascular Procedure Demographics Patient Name JOHN Mallory Age 81 Patient Number [id number] Gender Female Race Ethnicity Corporate ID [id number] Height 62 Date of 1940 Weight 150 Accession Number [id number] BSA 1.69 m^2 Room Number [id number] BMI 27.44 kg/m^2 Referring Physician ARSLAN PORRAS Interpreting Physician ARSLAN PORRAS DO [facility] Procedure Type of Study: US GUIDED VASCULAR ACCESS : . Impressions Summary INDICATION: Angina at rest I20.8 . RIGHT: Ultrasound guided vascular access of Common femoral artery . COYOTE HUNTER was 3.0 cm in depth and patent. Access was successful. Allergies - Bactrim. - Morphine:(claritin). - Sulfa. Patient Status:Inpatient . Study Location:Portable. Technical Quality:Good visualization. Risk Factors - The patient's risk factor(s) include: treated arterial hypertension and prior CABG. - The patient's last creatinine was 0.8 mg/dl. Signature Assessment Plan Discharge Planning: HOSPITALIST PROGRESS NOTE Patient: Chen Merritt Date: 06/25/22 Subjective Date of Service: 06/25/22 5-8 No new complaints. She became lightheaded and pre-syncopal when standing today. June 26, 2022. Patient's sister is at the bedside as well as patient's nurse Corry joined me as well.The patient's been here for over 2 weeks. Patient and her sister are frustrated they feel that she is not improving they stated that she felt a little bit lightheaded when going from a laying down position to a standing position. She states that she spent many days in the hospital bed without getting up. Explained that given the advanced age that seems to be not unexpected. We also went over a list of medical problems including non-ST elevation ME low blood pressure disc hernia surgery repair June 12 heart disease high cholesterol psoriatic arthritis immunocompromised cortisol deficiency as well as orthostatic hypotension. She states that when she goes from a laying to a standing position that she only sits on the side of the bed for about 1 minute. I explained that it needs to be much longer. For her may be 10 minutes before attempting to stand. She states that she does not like getting in the chair because of her back pain. No fevers or chills no chest pain palpitations no shortness of breath coughing or wheezing. Objective Vitals: Temp: [97.3 ??F (36.3 ??C)-98.3 ??F (36.8 ??C)] 98.3 ??F (36.8 ??C) Pulse: [81-101] 97 Resp: [18] 18 BP: (118-184)/(72-93) 118/76 Intake/Output: No intake or output data in the 24 hours ending 06/26/22 1630 Physical exam: General: Alert and oriented, no acute distress, elderly 81-year-old female Neurologic: Awake, alert, and oriented X3, no apparent focal deficits Eye: EOMI, normal conjunctiva HENT: Normocephalic, atraumatic Neck: no carotid bruits, no JVD Lungs: Clear to auscultation, non-labored respiration Heart: Normal rate, regular rhythm, no murmur Abdomen: Soft, non-tender, non-distended, normal bowel sounds Musculoskeletal: Normal range of motion and strength, no tenderness or swelling, weak and debilitated Skin: Skin is warm, dry, no rashes or lesions Psychiatric: Cooperative, appropriate mood and affect pleasant lady Labs: Results for orders placed or performed during the hospital encounter of 06/10/22 (from the past 24 hour(s)) Basic Metabolic Panel Status: Abnormal Collection Time: 06/26/22 10:56 AM Result Value Ref Range Sodium 135 (L) 136 - 146 meq/L Potassium 3.3 (L) 3.5 - 5.1 meq/L Chloride 104 102 - 112 meq/L CO2 20 (L) 21 - 32 meq/L Anion Gap 14 9 - 20 BUN 14 7 - 22 mg/dL Creatinine 0.75 0.55 - 1.02 mg/dL BUN/Creatinine 19 8 - 20 Glucose 162 (H) 74 - 106 mg/dL Calcium 9.5 8.4 - 10.1 mg/dL Osmolality Calc 274.1 eGFR (mL/min/1.73m2) >60 >=60 mL/min/1.73m2 Radiology: Radiology Results (last 3 days) No results found for the last 72 hours. Medications: Scheduled Meds: ??? aspirin 81 mg Oral Daily 81 mg at 06/26/22916 ??? atorvastatin 40 mg Oral Every Night 40 mg at 06/25/222022 ??? cetirizine 10 mg Oral Daily 10 mg at 06/26/22 1006 ??? cholecalciferol 1,000 Units Oral Daily 1,000 Units at 06/26/22 1007 ??? clopidogreL 75 mg Oral Daily 75 mg at 06/26/22916 ??? docusate sodium 100 mg Oral BID 100 mg at 06/26/22916 ??? enoxaparin 40 mg Subcutaneous Q24H CHRIS 40 mg at 06/26/2216 ??? famotidine 20 mg Oral BID 20 mg at 06/26/22916 ??? fluticasone propionate 2 spray Each Nare BID 2 spray at 06/26/22928 ??? folic acid 1,000 mcg Oral Daily 1,000 mcg at 06/26/22 1007 ??? methotrexate 20 mg Oral Weekly 20 mg at 06/21/222133 ??? metoprolol tartrate 25 mg Oral BID 25 mg at 06/26/22916 ??? miconazole Topical BID Given at 06/26/22928 ??? miconazole Topical (Top) BID Given at 06/26/22928 ??? midodrine 2.5 mg Oral BID AC 2.5 mg at 06/26/22 1007 ??? multivitamin 1 tablet Oral Daily 1 tablet at 06/26/22916 ??? pantoprazole 40 mg Oral Daily 40 mg at 06/26/22916 ??? polyethylene glycol 3350 17 g Oral Daily 17 g at 06/26/22915 ??? pregabalin 150 mg Oral Every Night 150 mg at 06/25/222027 ??? Saccharomyces boulardii 250 mg Oral BID 250 mg at 06/26/22916 Continuous Infusions: PRN Meds: ??? acetaminophen ??? acetaminophen ??? aluminum-magnesium hydroxide-simethicone ??? calcium carbonate ??? dextrose ??? diclofenac ??? fluconazole ??? naloxone ??? ondansetron Or ??? ondansetron PF ??? oxyCODONE Assessment and Plan Orthostatic hypotension -check daily, positive orthostatics for several days, PT following -continue stockings, fluid challenged without significant result, now will start low dose midodrinecaution due to supine hyptertension. -continue beta shivam per cards -kerwin stim test 06/23 ruled out primary adrenal insufficiency, low suspicion for secondary may need outpatient endocrinology referral with repeat testing in 6-8 weeks and consideration of dedicated mri, her sodium and k have been normal for several days, hemodynamics have improved. -patient only spending about 1 minute going from laying in bed to standing- counseled to sit for 10mintues if necessary ACS -06/13--Successful balloon angioplasty and stenting of subtotal occlusion of proximal circumflex heavily calcified lesion 99% reduced to 10% -predilated with shockwave balloon 3.5 and treated with Powell 3.5 x 15 drug-eluting stent which was postdilated with a 4.0 noncompliant balloon atmospheres -Echo: mod LVH EF 55% mod tricuspid regurg -Intolerant to brillinta, CARD changed to plavix, continue asa, continue statin ?? Metabolic Encephalopathy, resolved: ??2/2 acute UTI, complicated by narcotic use and advancing age. ?? Complicated UTI, resolved: UA turbid, nitrite+ with 2+ bacteria and suprapubic tenderness. -UA cleared 06/15 ?? L5/S1 disc herniation -PT/OT post-op, ?Resume home dose of lyrica. -06/12-->Left L5-S1 facetectomy with neuroforaminotomies discectomy for decompression of nerve root -fu [address] Odonnell ?? paroxysmal Atrial fibrillation Cardiology recs ASA only as no AFIB since 2012. ?? Psoriatic Arthritis: Controlled on MTX. Immunocompromised: On MTX ??for psoriatic arthritis, takes on . On denosumab twice annually.Resume her methotrexate weekly. Continue folic acid/vit D, MVI supplementation. ?? VTE Ppx: lovenox GI Ppx: pantoprazole ?? Dispo:??Ongoing profound orthostasis. Pt will need to be able to work with PT and not have orthostasis. [facility] following ?? Diet: Orders Placed This Encounter Procedures ??? Regular Diet Code Status: Current Code Status Full code Medical Decision Making: Discharge Disposition: Looking at [facility] or other rehab facilities. Continue measures and PT. Eventually to rehab when able to wok with PT. Sunday, June 26, 2022. 45 minutes spent on the follow-up delightful elderly 81-year-old lady was apparently rather independent however she has been in the hospital for 2-1/2 weeks so far. She had surgery on June 12 for back. She is frustrated that all of her problems have not resolved and she feelsthat she is not improving as quickly as she would like to. She also states that she seen some different aircraft armorer but she really likes Dr. Sexton who is followed her for a number of years as an outpatient and she wants to know why he has not seen her here. I did explain that different aircraft armorer because of restraints their schedule rotate through the hospital as well as the Production Team Leader as wellas the clinic. Explained she has multiple medical problems including non-ST elevation ME with drug-eluting stent placed low blood pressure L5-S1 disc hernia surgery. 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 Apparently she is only taking 1 minute 1 minute going from laying in bed to astanding position which leads to presyncope. I told her she really needs to spend more time sittingon the side of the bed. Explained 1 minute slot not long enough for her apparently so she needs to spend more time maybe 10 minutes to see how this works explained that this will take time but as long as she continues to participate in physical therapy I expect that she will improve. Patient's sister is at the bedside her name is Rosaline Roth and. She is very solicitous as well and they are both optimistic that she would be an excellent candidate for rehab with a goal of going home and living independently in the future. Signed: Gustabo Galarza MD 06/26/2022, 12:27 AM * Dorinda Graham RN - 06/26/2022 2:10 PM EDT Discharge Plan Progress Note Patient continues to be followed by [facility] for possible discharge placement, waiting for improvement in ability to work with therapy (r/t orthostatic hypotension) Dorinad Graham RN * Alma Luong PT - 06/26/2022 2:06 PM EDT Images from the original note were not included. Inpatient Physical Therapy Treatment Patient Name: Chen Merritt Date of : 1940 Date of Treatment: 06/26/22 Start Time 1406 Stop Time 1430 Session Duration 24 minutes General Visit type: Treatment Approved by: Nurse Wheatley Patient Disposition Upon Entry: Supine in bed, Visitor/Family present Co-treated by: OT Precautions Weight-Bearing Status: No Restrictions Precautions: Fall risk , orthostatic hypotension Isolation Precautions: Standard Subjective Subjective: Patient agreeable to physical therapy treatment. Pain No - Patient not reporting pain at this time Cognition Arousal/Alertness: Appropriate response to stimuli Attention Span: Appears intact Following commands: Follows all commands and directions without difficulty Safety Judgment: Good awareness of safety precautions Objective Vitals Vitals Supine Sitting Standing BP 157/87 mmHg 134/85 mmHg 104/69 mmHg BP taken a 4th time after pt sat down after ambulating with pt reclined with feet up in chair, DH=432/76 mmHg Functional Mobility Bed Mobility: Supine to Sit: minimal assistance, HOB elevated Sit to Supine: supervision Transfers Sit to Stand: minimal assistance, 2-person assist, gait belt used, rolling walker used Stand to Sit: minimal assistance, gait belt used, rolling walker used Bed to/from Chair: minimal assistance, gait belt used, rolling walker used, chair to bed Mild posterior lean when first coming to stand. Gait Gait Assistance: minimal assistance, 2-person assist Assistive Device: Gait Belt, Rolling walker, Other (chair close by) Distance: 6 ft Gait speed: very slow Deviation(s): shuffling, narrow base of support, Comment: needed tactile cues to negotiate RWx Stair Management Not safe to attempt due to medical condition or safety Balance Static/dynamic sitting and static/dynamic standing balance grades Balance Grade Sitting Static Normal - patient able to maintain steady balance without handhold support Sitting Dynamic Normal - patient accepts maximal challenge and can shift weight easily within full range in all directions Standing Static Fair - patient able to maintain balance with handhold support; may require occasional minimal assistance Standing Dynamic Fair - patient accepts minimal challenge; able to maintain balance while turning head/trunk Activity Tolerance Pt limited with activity/intervention due to fatigue and dizziness, but improved activity tolerancethis session. Treatment Pt sat EOB with supervision for both dynamic and static sitting, stood statically with min A using RWx while BP taken. She then amb x 6 ft, but began to exhibit a blank look and was not talking, so quickly assisted to sitting. Pt sat for several min, but was then able to stand with min A and take steps from chair to bed with RWx. Tolerated this well and was able to sit on EOB for several min again before lying back in bed. Assessment Pt is very motivated and is progressing with improved activity tolerance today. She was able to tolerate sitting on EOB well and was able to amb 6 ft and then complete a chair to bed transfer. Pt will benefit from continued treatment during LOS to address stated deficits and work toward establishedgoals. Problems: see initial eval Rehab potential: Good for stated goals Plan Treatment plan: Continue per POC. PT Frequency/Duration: 5x/week for 14 days Recommendations Discharge recommendations: Patient would benefit from 3 hours of intensive multidisciplinary therapy per day to maximize functional outcomes and address functional limitations to return to highest level of functioning. DME recommendations: no needs if discharging to rehab Goals Supine to/from sit:??supervision Sit to/from stand:??supervision with RWx (revised 06/26/22) Gait:??50ft, Rwx, Tyson Transfer:??Tyson, Rwx?? Goals date 06/29/22 Progress towards goals: progressing Education Patient/Visitors educated on safety, role of physical therapy, plan of care, ambulation, transfers and bed mobility and following, they were able to verbalize and demonstrate understanding. No further questions or concerns stated. Patient Disposition Upon Leaving Supine in bed, Call Light/Pull Cord in reach, All needs met and within reach, Visitor/Family present If this patient discharges prior to next therapy session, this note serves as the patient's discharge summary. Electronically signed by Alma Luong PT - 06/26/2022 - 4:16 PM EDT * Joel Gresham OTR/Tricia - 06/26/2022 1:58 PM EDT Images from the original note were not included. Inpatient Occupational Therapy Treatment Note Patient Name: Chen Merritt Date of : 1940 Date of Treatment: 06/26/22 Start Time: 1358 Stop Time: 1429 Session Duration: 31 This patient is a 81 y.o. female admitted on 06/10/2022 with Weakness [R53.1] Acute respiratory failure with hypoxia (HCC) [J96.01] Urinary tract infection without hematuria, site unspecified [N39.0] Altered mental status, unspecified altered mental status type [R41.82] Midline low back pain without sciatica, unspecified chronicity [M54.50]. Past Medical History: Diagnosis Date ??? Arthritis ??? Coronary artery disease ??? Hyperlipidemia ??? Hypertension ??? Lumbar spondylolysis ??? ME (myocardial infarction) (HCC) ??? Osteopenia ??? Psoriatic arthritis (HCC) ??? Psoriatic arthritis (HCC) Past Surgical History: Procedure Laterality Date ??? CHOLECYSTECTOMY ??? HYSTERECTOMY ??? LAMINECTOMY,LUMBAR Left 06/12/2022 Procedure: (LT L5-S1 FACETECTOMY AND NEUROFORAMINOTOMY; Surgeon: Edith Odonnell MD; Location: [facility] OR; Service: Neurosurgery; Laterality: Left; [place] 0800,1.5HRS(R) ??? LAMINECTOMY,LUMBAR W/FUSION N/A 12/14/2021 Procedure: L3-5, L5-S1 FUSION AND DECOMPRESSION AUGMENTATION WITH ZIEHM; Surgeon: Edith Odonnell MD; Location: [facility] OR; Service: Neurosurgery; Laterality: N/A; [place] 0830. 3 HRS (R). PASS. AIRO. PRE CERT STARTED, ??? open heart 2008 4 bypass General Visit type: Treatment Approved by: Nursing Patient disposition upon entry: Supine in bed, Visitor/family present, All needs met and within reach, Call light/pull cord in reach Co-treated by: PT Precautions Weightbearing status: No restrictions Precautions: Fall risk, orthostatic hypotension Isolation precautions: Standard Subjective Subjective: Pt agreeable Pain No-patient reports 0/10 pain Cognition Cognition: Overall cognitive status: WFL Following commands: Follows one step commands with increased time Follows one step commands with repetition Objective Vitals Vitals Supine Sitting Standing HR bpm bpm bpm BP 157/87 mmHg 134/85 mmHg 104/69 mmHg Bed Mobility Supine to sit: Minimal assistance Sit to supine: Supervision Transfers Sit to stand:Minimal assistance, 2 person assist, Gait belt used, Rolling walker used Stand to sit:Minimal assistance, 2 person assist, Gait belt used, Rolling walker used Functional mobility:Minimal assistance, 2 person assist, Gait belt used, Rolling walker used ADLs Upper body dressing:Minimal Assistance Balance Static sitting balance:Good: Patient able to maintain balance without handheld support; limited postural sway Dynamic sitting balance:Fair: Patient accepts minimal challenge; able to maintain balance while turning head/trunk Static standing balance:Fair: Patient able to maintain balance with handheld support, may require occasional minimal assistance Dynamic standing balance:Fair: Patient accepts minimal challenge; able to maintain balance while turning head/trunk Therapeutic Exercise UE therapeutic exercise AROM, Shoulder flexion, Row, All exercises performed for 1 set of 10 reps Activity Tolerance Pt limited with activity/intervention due to hypotension Treatment Pt Min A for supine to sit on EOB. Pt orthostatic vitals were taken at this time and listed above. Pt sit to stand with Min Ax2 w/RWx. Pt stood for ~1 minute. Pt ambulated ~5 ft with Min Ax2 and verbal cues for navigation/safety of walker. Pt began to feel light headed and demonstrate presyncopal symptoms. Pt sat in bedside chair. Pt BP was taken again and was 118/76. Pt Min A for chair to bed transfer with Min A and RWx. Pt Min Ax2 for stand to sit on EOB. Pt Min A for UBD task of donning/doffing gown. Pt supervision for sit to supine in bed. Assessment Assessment Pt is progressing towards goals and should continue OT POC. Plan Recommendations Discharge recommendations: Discharge recommendations pending progression of acute hospital stay secondary to the patient's medical status. Pt would benefit from 3+ hours of multidisciplinary therapy services a a day when medically ready. DME recommendations: Unable to make recommendations at this time. Treatment Plan: Continue OT POC OT Frequency/Duration: 5x/week for 14 days Goals Lower body dressing: Pt will complete??lower body dressing??with modified independence??using pilot control operator helper, long handled shoehorn, sock aid. Bed mobility: Pt will complete??supine to sit??with modified independence supervision??using head of bed elevated, use of bed rails. Functional transfers: Pt will complete??toilet transfer??with modified independence??using rolling walker. Progress towards goals: progressing Goals were discussed with patient and family Education Patient/Visitors educated on safety and following, they were able to verbalize understanding. Patient Disposition Upon Leaving Supine in bed, Call Light/Pull Cord in reach, All needs met and within reach, Nursing aware/notified If this patient discharges prior to next therapy session, this note serves as the patient's discharge summary. Electronically signed by ADILENE Landry/Tricia - 06/26/2022 - 4:06 PM EDT * Johanny Corona, , RD, LD - 06/26/2022 11:[address] [facility] NUTRITION ASSESSMENT ADIME Nutrition Assessment The patient is a 81 y.o. female presenting w/ confusion and weakness. Present on Admission: None (Admitting Diagnoses) Nutrition Evaluation Type: Follow Up Reason for Evaluation: LOS Subjective Comments: 06/26: Rescreen. [facility] following per CM notes. Pt working with PT at time of RD visit. Pt eating 50-100% of most meals. Reviewed labs/meds. Noted K+ low (3.3), recommend rechecking and replacing prn. Nonew skin issues. LBM 06/22. Will rescreen again in 5-7 days or available prn. 06/20: RD screened pt for LOS. Pt currently on a regular diet. 75-100% intakes x3 meals and good-fairappetite per pt chart. LBM 06/20. No skin breakdown noted. Labs and meds reviewed. No nutrition dx atthis time. RD to rescreen in 4-6 days or available prn. Past Medical/Surgical History: Past Medical History: Diagnosis Date ??? Arthritis ??? Coronary artery disease ??? Hyperlipidemia ??? Hypertension ??? Lumbar spondylolysis ??? ME (myocardial infarction) (HCC) ??? Osteopenia ??? Psoriatic arthritis (HCC) ??? Psoriatic arthritis (HCC) Past Surgical History: Procedure Laterality Date ??? CHOLECYSTECTOMY ??? HYSTERECTOMY ??? LAMINECTOMY,LUMBAR Left 06/12/2022 Procedure: (LT L5-S1 FACETECTOMY AND NEUROFORAMINOTOMY; Surgeon: Edith Odonnell MD; Location: [facility]; Service: Neurosurgery; Laterality: Left; [place] 0800,1.5HRS(R) ??? LAMINECTOMY,LUMBAR W/FUSION N/A 12/14/2021 Procedure: L3-5, L5-S1 FUSION AND DECOMPRESSION AUGMENTATION WITH ZIEHM; Surgeon: Edith Odonnell MD; Location: [facility]; Service: Neurosurgery; Laterality: N/A; [place] 0830. 3 HRS (R). PASS. AIRO. PRE CERT STARTED, ??? open heart 2008 4 bypass Nutrition Monitoring and Goals: 1. Continue a regular diet. RD to add ONS prn. Goal: intakes >75% 2. Monitor elytes, recommend replacing prn. Goal: wnls Nutrition Risk Level: No Risk Johanny Corona, MS, RD, LD * Chino Reardon MD - 06/25/2022 9:27 PM EDT Images from the original note were not included. HOSPITALIST PROGRESS NOTE Patient: Chen Merritt Date: 06/25/22 Subjective Date of Service: 06/25/22 No new complaints. She became lightheaded and pre-syncopal when standing today. Objective Vitals: Temp: [97.2 ??F (36.2 ??C)-97.9 ??F (36.6 ??C)] 97.9 ??F (36.6 ??C) Pulse: [79-101] 101 Resp: [18-19] 18 BP: (106-185)/(64-93) 184/93 Intake/Output: Intake/Output Summary (Last 24 hours) at 06/26/2022 0027 Last data filed at 06/25/2022 0611 Gross per 24 hour Intake -- Output 550 ml Net -550 ml Physical exam: General: Alert and oriented, no acute distress Neurologic: Awake, alert, and oriented X3, no apparent focal deficits Eye: EOMI, normal conjunctiva HENT: Normocephalic, atraumatic Neck: no carotid bruits, no JVD Lungs: Clear to auscultation, non-labored respiration Heart: Normal rate, regular rhythm, no murmur Abdomen: Soft, non-tender, non-distended, normal bowel sounds Musculoskeletal: Normal range of motion and strength, no tenderness or swelling Skin: Skin is warm, dry, no rashes or lesions Psychiatric: Cooperative, appropriate mood and affect Labs: No results found for this visit on 06/10/22 (from the past 24 hour(s)). Radiology: Radiology Results (last 3 days) No results found for the last 72 hours. Medications: Scheduled Meds: ??? aspirin 81 mg Oral Daily 81 mg at 06/25/22 0946 ??? atorvastatin 40 mg Oral Every Night 40 mg at 06/25/222022 ??? cetirizine 10 mg Oral Daily 10 mg at 06/25/22947 ??? cholecalciferol 1,000 Units Oral Daily 1,000 Units at 06/25/22946 ??? clopidogreL 75 mg Oral Daily 75 mg at 06/25/22945 ??? docusate sodium 100 mg Oral BID 100 mg at 06/25/222022 ??? enoxaparin 40 mg Subcutaneous Q24H CHRIS 40 mg at 06/25/22945 ??? famotidine 20 mg Oral BID 20 mg at 06/25/222027 ??? fluticasone propionate 2 spray Each Nare BID 2 spray at 06/25/222024 ??? folic acid 1,000 mcg Oral Daily 1,000 mcg at 06/25/22946 ??? methotrexate 20 mg Oral Weekly 20 mg at 06/21/222133 ??? metoprolol tartrate 25 mg Oral BID 25 mg at 06/25/222028 ??? miconazole Topical BID Given at 06/25/222024 ??? miconazole Topical (Top) BID Given at 06/25/222024 ??? midodrine 2.5 mg Oral BID AC 2.5 mg at 06/24/22 1536 ??? multivitamin 1 tablet Oral Daily 1 tablet at 06/25/22946 ??? pantoprazole 40 mg Oral Daily 40 mg at 06/25/22947 ??? polyethylene glycol 3350 17 g Oral Daily 17 g at 06/25/22945 ??? pregabalin 150 mg Oral Every Night 150 mg at 06/25/222027 ??? Saccharomyces boulardii 250 mg Oral BID 250 mg at 06/25/222028 Continuous Infusions: PRN Meds: ??? acetaminophen ??? acetaminophen ??? aluminum-magnesium hydroxide-simethicone ??? calcium carbonate ??? dextrose ??? diclofenac ??? fluconazole ??? naloxone ??? ondansetron Or ??? ondansetron PF ??? oxyCODONE Assessment and Plan Orthostatic hypotension -check daily, positive orthostatics for several days, PT following -continue stockings, fluid challenged without significant result, now will start low dose midodrinecaution due to supine hyptertension. -continue beta shivam per cards -kerwin stim test 5/6 ruled out primary adrenal insufficiency, low suspicion for secondary may need outpatient endocrinology referral with repeat testing in 6-8 weeks and consideration of dedicated mri, her sodium and k have been normal for several days, hemodynamics have improved. ACS -06/13--Successful balloon angioplasty and stenting of subtotal occlusion of proximal circumflex heavily calcified lesion 99% reduced to 10% -predilated with shockwave balloon 3.5 and treated with Kiran 3.5 x 15 drug-eluting stent which was postdilated with a 4.0 noncompliant balloon atmospheres -Echo: mod LVH EF 55% mod tricuspid regurg -Intolerant to brillinta, CARD changed to plavix, continue asa, continue statin ?? Metabolic Encephalopathy, resolved: ??2 acute UTI, complicated by narcotic use and advancing age. ?? Complicated UTI, resolved: UA turbid, nitrite+ with 2+ bacteria and suprapubic tenderness. -UA cleared 06/15 ?? L5/S1 disc herniation -PT/OT post-op, ?Resume home dose of lyrica. -06/12-->Left L5-S1 facetectomy with neuroforaminotomies discectomy for decompression of nerve root -fu [address] Odonnell ?? paroxysmal Atrial fibrillation Cardiology recs ASA only as no AFIB since 2012. ?? Psoriatic Arthritis: Controlled on MTX. Immunocompromised: On MTX ??for psoriatic arthritis, takes on . On denosumab twice annually.Resume her methotrexate weekly. Continue folic acid/vit D, MVI supplementation. ?? VTE Ppx: lovenox GI Ppx: pantoprazole ?? Dispo:??Ongoing profound orthostasis. Pt will need to be able to work with PT and not have orthostasis. [facility] following ?? Diet: Orders Placed This Encounter Procedures ??? Regular Diet Code Status: Current Code Status Full code Medical Decision Making: Discharge Disposition: Presyncopal again today with standing. Continue measures and PT. Eventually to rehab when able to wok with PT. Signed: Chino Reardon MD 06/26/2022, 12:27 AM * Joel Gresham OTR/L - 06/25/2022 2:28 PM EDT Images from the original note were not included. Inpatient Occupational Therapy Treatment Note Patient Name: Chen Merritt Date of : 1940 Date of Treatment: 06/25/22 Start Time: 8 Stop Time: 144 Session Duration: 19 This patient is a 81 y.o. female admitted on 06/10/2022 with Weakness [R53.1] Acute respiratory failure with hypoxia (HCC) [J96.01] Urinary tract infection without hematuria, site unspecified [N39.0] Altered mental status, unspecified altered mental status type [R41.82] Midline low back pain without sciatica, unspecified chronicity [M54.50]. Past Medical History: Diagnosis Date ??? Arthritis ??? Coronary artery disease ??? Hyperlipidemia ??? Hypertension ??? Lumbar spondylolysis ??? ME (myocardial infarction) ([facility]) ??? Osteopenia ??? Psoriatic arthritis ([facility]) ??? Psoriatic arthritis ([facility]) Past Surgical History: Procedure Laterality Date ??? CHOLECYSTECTOMY ??? HYSTERECTOMY ??? LAMINECTOMY,LUMBAR Left 06/12/2022 Procedure: (LT L5-S1 FACETECTOMY AND NEUROFORAMINOTOMY; Surgeon: Edith Odonnell MD; Location: [facility]; Service: Neurosurgery; Laterality: Left; [place] 0800,1.5HRS(R) ??? LAMINECTOMY,LUMBAR W/FUSION N/A 12/14/2021 Procedure: L3-5, L5-S1 FUSION AND DECOMPRESSION AUGMENTATION WITH ZIEHM; Surgeon: Edith Odonnell MD; Location: [facility]; Service: Neurosurgery; Laterality: N/A; [place] 0830. 3 HRS (R). PASS. AIRO. PRE CERT STARTED, ??? open heart 2008 4 bypass General Visit type: Treatment Approved by: Nursing Patient disposition upon entry: Sitting edge of bed, Call light/pull cord in reach, Visitor/family present, PT in room Co-treated by: PT Precautions Weightbearing status: No restrictions Precautions: Fall risk, orthostatic hypotension Isolation precautions: Standard LDA/Brace/Protective equipment: Lines, drains, airway: peripheral IV, blood pressure cuff Subjective Subjective: Pt agreeable Pain No-patient has no complaints of pain Cognition Cognition: Overall cognitive status: WFL Orientation level: Oriented x4 Objective Vitals Vitals Supine Sitting Standing HR 87 bpm 105 bpm Unable to obtain bpm BP 149/80 mmHg 130/76 mmHg Unable to obtainmmHg Pt reported blurred vision, dizziness, and became lethargic in standing and appeared to have syncopal episode. Pt was put in supine and BP taken (116/76) and reported improved dizziness. Bed Mobility Scooting: Maximal assistance, 2 person assist Sit to supine: Total assistance , 2 person assist d/t suspected orthostatic hypotension. Transfers Sit to stand:Moderate assistance, 2 person assist, Gait belt used, Rolling walker used Stand to sit:Moderate assistance, 2 person assist, Gait belt used, Rolling walker used ADLs Unable to assess Balance Static sitting balance:Good: Patient able to maintain balance without handheld support; limited postural sway Dynamic sitting balance:Good: Patient accepts moderate challenge; able to maintain balance while picking object off the floor Static standing balance:Fair: Patient able to maintain balance with handheld support, may require occasional minimal assistance Activity Tolerance Pt limited with activity/intervention due to dizziness and hypotension Treatment Pt received in sitting EOB w/PT. OT gathered BP stats in supine and sitting. Pt Mod Ax2 fro sit to stand. Attempted to gather BP in standing but was unable to read. When attempting to sit, pt appeared to start a syncopal episode and reported dizziness and blurry vision. Pt Mod A for stand to sit. Pt total assist for sit to supine in bed. Pt put in trendelenburg and symptoms appeared to resolve. RN notified. BP was 116/76 after episode in supine. Assessment Assessment Pt is guarded d/t orthostatic hypotension. Pt is improving mobility and ADL functioning and is motivated however continues to be limited d/t hypotension. Plan Recommendations Discharge recommendations: Discharge recommendations pending progression of acute hospital stay secondary to the patient's medical status DME recommendations: Unable to make recommendations at this time. Treatment Plan: ADL training, IADL training, Functional mobility/transfer training, Safety training, Strengthening , Patient/family/caregiver education OT Frequency/Duration: 5x/week for 14 days Goals Lower body dressing: Pt will complete??lower body dressing??with modified independence??using pilot control operator helper, long handled shoehorn, sock aid. Bed mobility: Pt will complete??supine to sit??with modified independence supervision??using head of bed elevated, use of bed rails. Functional transfers: Pt will complete??toilet transfer??with modified independence??using rolling walker. Progress towards goals: progression limited by BP Goals were discussed with patient and caregiver Patient Disposition Upon Leaving Supine in bed, Call Light/Pull Cord in reach, All needs met and within reach, Nursing aware/notified, Visitor/Family present If this patient discharges prior to next therapy session, this note serves as the patient's discharge summary. Electronically signed by SALUD Landry - 06/25/2022 - 3:28 PM EDT * Urmila Stern, PT - 06/25/2022 2:12 PM EDT Images from the original note were not included. Inpatient Physical Therapy Treatment Patient Name: Chen Merritt Date of : 1940 Date of Treatment: 06/25/22 Start Time 1412 Stop Time 1447 Session Duration 35 minutes General Visit type: Treatment Approved by: Nurse Wheatley Patient Disposition Upon Entry: Supine in bed, Call Light/Pull Cord in reach, All needs met and within reach, Nursing aware/notified, Feet elevated, Visitor/Family present, Patient verified by name, Patient verified by date of Co-treated by: OT Precautions Weight-Bearing Status: No Restrictions Precautions: Fall risk , orthostatic hypotension Isolation Precautions: Standard Lines, tubes, drains, airway: peripheral IV, blood pressure cuff Subjective Subjective: Patient agreeable to physical therapy treatment. Pain No - Patient not reporting pain at this time Cognition Overall cognitive status: WFL Objective Vitals Pre-intervention vitals supine Heart rate: 87 beats per minute Blood pressure: 149/80 mmHg During intervention vitals seated EOB: Heart rate: 105 beats per minute Blood pressure: 130/76 mmHg Unable to get BP in standing; Pt reported dizziness and blurred vision and had to be assisted back to bed. Post-intervention vitals supine Heart rate: 99 beats per minute Blood pressure: 116/76 mmHg Functional Mobility Bed Mobility: Rolling Left: modified independent Rolling Right: modified independent Supine to Sit: moderate assistance, 1-person assist Sit to Supine: maximal assistance, 2-person assist Transfers Sit to Stand: moderate assistance, 2-person assist Stand to Sit: moderate assistance, 2-person assist Gait Not safe to attempt due to medical condition or safety Stair Management Not safe to attempt due to medical condition or safety Wheelchair Mobility Not safe to attempt due to medical condition or safety Balance Static/dynamic sitting and static/dynamic standing balance grades Balance Grade Sitting Static Good - patient able to maintain balance without handhold support, limited postural sway Sitting Dynamic Good - patient accepts moderate challenge; able to maintain balance while picking object off floor Standing Static Fair - patient able to maintain balance with handhold support; may require occasional minimal assistance Standing Dynamic unable to assess Activity Tolerance Patient limited with activity/intervention due to orthostatic hypotension with standing. Treatment Bed mobility training rolling ME with bedrail; supine>sit mod A x 1 at trunk to come to full seated position at EOB. Transfer training sit<>stand mod A x 2 for balance with cues for proper hand placement and safe technique. Pt sat EOB without support and no symptoms of hypotension. Pt stood with walker with BUE supported on walker with pt reporting dizziness, stars in her eyes. Pt was sea naren back to bed d/t symptoms of orthostatic hypotension. Pt positioned supine in bed with max A x 2with head of bed lowered and feet elevated. PT monitored pt's BP and HR (see above for vitals during session). PT educated pt to perform LE ex 3x/day and pt reported that she had been performing themmore. PT educated pt on need to elevated head more in bed to get used to upright positioning. Assessment Pt very motivated to participate. Pt's BP good seated EOB, but dropped in standing. Will continue to progress as tolerated. Pt would benefit PT services to restore her functional level. Problems: Decreased functional mobility, Decreased gait tolerance, Decreased activity tolerance, Impaired dynamic balance, Decreased tolerance to upright positioning, orthostatic hypotension Rehab potential: Good for stated goals Plan Treatment plan: Therapeutic Exercise, Therapeutic Activity, Gait Training, Neuromuscular Re-education, Transfer Training, Balance Training, Stair Training, Strengthening, Patient/Family/Caregiver Education, DME Recommendations PT Frequency/Duration: 5x/week for 14 days Recommendations Discharge recommendations: Patient would benefit from 1-2 hours of multidisciplinary therapy per day upon discharge from acute care setting to assist with returning to prior level of functioning. DME recommendations: Unable to make recommendations at this time. Goals Supine to/from sit:??supervision Sit to/from stand:??Tyson, Rwx??(met 4.30.23) Gait:??50ft, Rwx, Tyson Transfer:??Tyson, Rwx?? Goals date 06/29/22 Progress towards goals: progression limited by hypotension Education Patient/Visitors educated on safety, role of physical therapy, transfers, orthostatic hypotension precautions, need for assistance and risk for falls and following, they were able to verbalize understanding. No further questions or concerns stated. Patient Disposition Upon Leaving Supine in bed, Call Light/Pull Cord in reach, All needs met and within reach, Nursing aware/notified, Feet elevated, Visitor/Family present If this patient discharges prior to next therapy session, this note serves as the patient's discharge summary. Electronically signed by Urmila Stern PT - 06/25/2022 - 3:07 PM EDT * Simin Awad, DO - 06/24/2022 3:35 PM EDT Subjective Patient seen in follow-up. No acute events reported overnight. Ongoing orthostatic hypotension, today so far has not gotten up with therapy. Her sister present at bedside. Feeling some better overall, we discussed her kerwin stim test results, plan, and her questions were answered.. No chest pain or shortness of breath. Review of Systems Constitutional: Positive for fatigue. All other systems reviewed and are negative. Objective Last Recorded Vitals Blood pressure (!) 141/87, pulse 86, temperature (P) 97.4 ??F (36.3 ??C), temperature source (P) Oral, resp. rate (P) 18, height 1.6 m (5' 2.99 ), weight 68 kg (150 lb), SpO2 (P) 90 %. Physical Exam General: Alert and oriented, chronically ill appearing Neurologic: Awake, alert, and oriented X3 without focal deficit Eye: normal conjunctiva HENT: Normocephalic, atraumatic Neck: no JVD Lungs: Clear to auscultation, non-labored respiration Heart: rrr, no mrg Abdomen: Soft, non distended, nontender Musculoskeletal: no edema Skin: Skin is warm, dry Psychiatric: Cooperative, appropriate mood Labs: Results for orders placed or performed during the hospital encounter of 06/10/22 (from the past 24 hour(s)) T4, free Status: Normal Collection Time: 06/23/22 5:39 PM Result Value Ref Range Free T4 1.21 0.76 - 1.46 ng/dL Glucose, Nova Meter Status: None Collection Time: 06/24/22 6:03 AM Result Value Ref Range POC-GLUCOSE 97 70 - 110 mg/dL Home Health Billing Specialist [phone] Glucose, Nova Meter Status: Abnormal Collection Time: 06/24/22 10:53 AM Result Value Ref Range POC-GLUCOSE 144 (H) 70 - 110 mg/dL Home Health Billing Specialist [phone] Ultrasound-guided vascular access Vascular Procedure Demographics Patient Name JOHN Mallory Age 81 Patient Number [id number] Gender Female Race Ethnicity [employer] ID [id number] Height 62 Date of 1940 Weight 150 Accession Number [id number] BSA 1.69 m^2 Room Number 538 BMI 27.44 kg/m^2 Referring Physician ARSLAN PORRAS Interpreting Physician ARSLAN PORRAS DO [facility] Procedure Type of Study: US GUIDED VASCULAR ACCESS : . Impressions Summary INDICATION: Angina at rest I20.8 . RIGHT: Ultrasound guided vascular access of Common femoral artery . COYOTE HUNTER was 3.0 cm in depth and patent. Access was successful. Allergies - Bactrim. - Morphine:(claritin). - Sulfa. Patient Status:Inpatient . Study Location:Portable. Technical Quality:Good visualization. Risk Factors - The patient's risk factor(s) include: treated arterial hypertension and prior CABG. - The patient's last creatinine was 0.8 mg/dl. Signature Assessment Orthostatic hypotension -check daily, positive orthostatics for several days, PT following -on 06/[address] Baron, her cardizem was stopped-, per cards, continue stockings, fluid challenged without significant result, now will start low dose midodrine caution due to supine hyptertension. -continue beta shivam per cards -kerwin stim test 06/23 ruled out primary adrenal insufficiency, low suspicion for secondary may need outpatient endocrinology referral with repeat testing in 6-8 weeks and consideration of dedicated mri, her sodium and k have been normal for several days, hemodynamics have improved. Discussed findingswith patient and family and recommend outpatient endocrinology referral. -defer need for limited echo to Dr. Baron, discussed w him on 06/20 by previous hospitalist -naren morris ordered 06/23, midodrine ordered to start 6 as above -tsh reviewed, t4 reviewed ?? ACS -06/13--Successful balloon angioplasty and stenting of subtotal occlusion of proximal circumflex heavily calcified lesion 99% reduced to 10% -predilated with shockwave balloon 3.5 and treated with Powell 3.5 x 15 drug-eluting stent which was postdilated with a 4.0 noncompliant balloon atmospheres -Echo: mod LVH EF 55% mod tricuspid regurg -Intolerant to brillinta, CARD changed to plavix, continue asa, continue statin ?? Metabolic Encephalopathy, resolved: ??2/2 acute UTI, complicated by narcotic use and advancing age. ?? Complicated UTI, resolved: UA turbid, nitrite+ with 2+ bacteria and suprapubic tenderness. -UA cleared 06/15 ?? L5/S1 disc herniation -PT/OT post-op, ?Resume home dose of lyrica. -06/12-->Left L5-S1 facetectomy with neuroforaminotomies discectomy for decompression of nerve root -fu [address] Odonnell ?? paroxysmal Atrial fibrillation -stop diltiazem as above -clarify with cards--defer to them. Discussed w . Cards recs ASA only as no AFIB since 2012. Certainly with ortho stasis and recent back surgery would not start unless AFIB noted. Will hold andallow her to fu with cards as outpt. ?? Psoriatic Arthritis: Controlled on MTX. Immunocompromised: On MTX ??for psoriatic arthritis, takes on . On denosumab twice annually.Resume her methotrexate weekly. Continue folic acid/vit D, MVI supplementation. ?? VTE Ppx: lovenox GI Ppx: pantoprazole ?? Dispo: Ongoing profound orthostasis. Pt will need to be able to work with PT and not have orthostasis. [facility] following ?? Plan As above , continue midodrine, work with PT/OT, Cm following, added compression hose, consider abdominal binder with therapy if ongoing orthostasis, previously on florinef with little improvement. Outpatient endocrinology follow up needed. * Simin Awad DO - 06/23/2022 4:36 PM EDT Subjective Patient seen in follow-up. No acute events reported overnight. Ongoing orthostatic hypotension. Feeling some better overall though. No chest pain or shortness of breath. Daughter at bedside. Questions answered. Review of Systems Constitutional: Positive for fatigue. All other systems reviewed and are negative. Objective Last Recorded Vitals Blood pressure (!) 176/79, pulse 83, temperature 97.7 ??F (36.5 ??C), temperature source Oral, resp. rate 18, height 1.6 m (5' 2.99 ), weight 68 kg (150 lb), SpO2 97 %. Physical Exam General: Alert and oriented, chronically ill appearing Neurologic: Awake, alert, and oriented X3 without focal deficit Eye: normal conjunctiva HENT: Normocephalic, atraumatic Neck: no JVD Lungs: Clear to auscultation, non-labored respiration Heart: sinus tachycardia, no mrg Abdomen: Soft, non distended, nontender Musculoskeletal: no edema Skin: Skin is warm, dry Psychiatric: Cooperative, appropriate mood Labs: Results for orders placed or performed during the hospital encounter of 06/10/22 (from the past 24 hour(s)) Basic Metabolic Panel Status: Abnormal Collection Time: 06/23/22 7:48 AM Result Value Ref Range Sodium 136 136 - 146 meq/L Potassium 4.1 3.5 - 5.1 meq/L Chloride 110 102 - 112 meq/L CO2 18 (L) 21 - 32 meq/L Anion Gap 12 9 - 20 BUN 16 7 - 22 mg/dL Creatinine 0.72 0.55 - 1.02 mg/dL BUN/Creatinine 22 (H) 8 - 20 Glucose 85 74 - 106 mg/dL Calcium 9.1 8.4 - 10.1 mg/dL Osmolality Calc 272.4 eGFR (mL/min/1.73m2) >60 >=60 mL/min/1.73m2 Cortisol Status: None Collection Time: 06/23/22 7:48 AM Result Value Ref Range Cortisol Level (mcg/dL) 1.5 mcg/dL CBC with Automated Diff Status: Abnormal Collection Time: 06/23/22 7:48 AM Result Value Ref Range WBC 6.1 4.5 - 10.5 K/??L RBC 3.48 (L) 3.93 - 5.22 M/??L Hemoglobin 11.2 11.2 - 15.7 GM/DL Hematocrit 34.0 (L) 34.1 - 44.9 % MCV 98 (H) 79 - 95 fL MCH 32.2 25.6 - 32.2 pg MCHC 32.9 32.2 - 36.5 GM/DL RDW 15.1 (H) 11.7 - 14.9 % Platelets 310 163 - 369 K/CU MM MPV 11.0 9.4 - 12.4 fL % Neutros 50 34 - 71 % % Lymphs 31 19 - 53 % % Monos 12 (H) 3 - 9 % % Eos 6 (H) 0 - 1 % % Baso 1 0 - 2 % NRBC Absolute 0.00 0 - 0.12 K/ul # Neutros 3.02 1.56 - 6.13 K/??L # Lymphs 1.90 1.00 - 3.50 K/??L # Monos 0.73 0.16 - 1.00 K/??L # Eos 0.35 0.00 - 0.80 K/??L # Baso 0.05 0.00 - 0.20 K/??L Immature Granulocytes-Relative 0.30 0.00 - 0.60 % # IG 0.02 0.00 - 0.05 K/uL Cortisol Status: None Collection Time: 06/23/22 9:25 AM Result Value Ref Range Cortisol Level (mcg/dL) 22.8 mcg/dL Cortisol Status: None Collection Time: 06/23/22 10:24 AM Result Value Ref Range Cortisol Level (mcg/dL) 27.4 mcg/dL Ultrasound-guided vascular access Vascular Procedure Demographics Patient Name JOHN Mallory Age 81 Patient Number [id number] Gender Female Race Ethnicity Corporate ID [id number] Height 62 Date of 1940 Weight 150 Accession Number [id number] BSA 1.69 m^2 Room Number 538 BMI 27.44 kg/m^2 Referring Physician ARSLAN PORRAS Interpreting Physician ARSLAN PORRAS DO [facility] Procedure Type of Study: US GUIDED VASCULAR ACCESS : . Impressions Summary INDICATION: Angina at rest I20.8 . RIGHT: Ultrasound guided vascular access of Common femoral artery . COYOTE HUNTER was 3.0 cm in depth and patent. Access was successful. Allergies - Bactrim. - Morphine:(claritin). - Sulfa. Patient Status:Inpatient . Study Location:Portable. Technical Quality:Good visualization. Risk Factors - The patient's risk factor(s) include: treated arterial hypertension and prior CABG. - The patient's last creatinine was 0.8 mg/dl. Signature Assessment Orthostatic hypotension -check daily, positive orthostatics again today -[facility]. Per cards, continue stockings, fluid challenged, now will start low dose midodrine caution due to supine hyptertension -continue bb -kerwin stim test today ruled out primary adrenal insufficiency, low suspicion for secondary may needoutpatient endocrinology referral with repeat testing in 6-8 weeks and consideration of dedicated mri, her sodium and k have been normal for several days, hemodynamics have improved -defer need for limited echo to Dr. Baron, discussed w him on 06/20 by previous hospitalist -naren morris ordered today 06/23, midodrine ordered to start today as above -tsh reviewed, adding on t4 ?? ACS -06/13--Successful balloon angioplasty and stenting of subtotal occlusion of proximal circumflex heavily calcified lesion 99% reduced to 10% -predilated with shockwave balloon 3.5 and treated with Kiran 3.5 x 15 drug-eluting stent which was postdilated with a 4.0 noncompliant balloon atmospheres -Echo: mod LVH EF 55% mod tricuspid regurg -Intolerant to brillinta, CARD changed to plavix, continue asa, continue statin ?? Metabolic Encephalopathy, resolved: ??2/2 acute UTI, complicated by narcotic use and advancing age. ?? Complicated UTI, resolved: UA turbid, nitrite+ with 2+ bacteria and suprapubic tenderness. -UA cleared 06/15 ?? L5/S1 disc herniation -PT/OT post-op, ?Resume home dose of lyrica. -06/12-->Left L5-S1 facetectomy with neuroforaminotomies discectomy for decompression of nerve root -fu [address] Odonnell ?? paroxysmal Atrial fibrillation -stop diltiazem- continue tele -clarify with cards--defer to them. Discussed w . Cards recs ASA only as no AFIB since 2012. Certainly with ortho stasis and recent back surgery would not start unless AFIB noted. Will hold andallow her to fu with cards as outpt. ?? Psoriatic Arthritis: Controlled on MTX. Immunocompromised: On MTX ??for psoriatic arthritis, takes on . Last dose was 05/31. On denosumab twice annually.Resume her methotrexate dose today. Continue folic acid/vit D, MVI supplementation. ?? VTE Ppx: lovenox GI Ppx: pantoprazole ?? Dispo: Ongoing profound orthostasis. Pt will need to be able to work with PT and not have orthostasis. [facility] following ?? MDM: High Time: 38 mins. Plan As above , adding on T4, midodrine, continue pt/ot * Simin Awad DO - 06/22/2022 3:57 PM EDT Subjective Patient seen in follow-up. No acute events reported overnight. Ongoing orthostatic hypotension. Feeling some better overall though. No chest pain or shortness of breath. Review of Systems Constitutional: Positive for fatigue. All other systems reviewed and are negative. Objective Last Recorded Vitals Blood pressure (!) 143/85, pulse 93, temperature 97.9 ??F (36.6 ??C), resp. rate 17, height 1.6 m (5' 2.99 ), weight 68 kg (150 lb), SpO2 96 %. Physical Exam General: Alert and oriented, chronically ill appearing Neurologic: Awake, alert, and oriented X3 without focal deficit Eye: normal conjunctiva HENT: Normocephalic, atraumatic Neck: no JVD Lungs: Clear to auscultation, non-labored respiration Heart: sinus tachycardia, no mrg Abdomen: Soft, non distended, nontender Musculoskeletal: no edema Skin: Skin is warm, dry Psychiatric: Cooperative, appropriate mood Labs: Results for orders placed or performed during the hospital encounter of 06/10/22 (from the past 24 hour(s)) Cortisol Status: None Collection Time: 06/21/22 4:26 PM Result Value Ref Range Cortisol Level (mcg/dL) 10.0 mcg/dL CBC with automated diff Status: Abnormal Collection Time: 06/22/22 5:36 AM Result Value Ref Range WBC 6.6 4.5 - 10.5 K/??L RBC 3.36 (L) 3.93 - 5.22 M/??L Hemoglobin 10.8 (L) 11.2 - 15.7 GM/DL Hematocrit 32.7 (L) 34.1 - 44.9 % MCV 97 (H) 79 - 95 fL MCH 32.1 25.6 - 32.2 pg MCHC 33.0 32.2 - 36.5 GM/DL RDW 14.9 11.7 - 14.9 % Platelets 313 163 - 369 K/CU MM MPV 11.0 9.4 - 12.4 fL NRBC Absolute 0.00 0 - 0.12 K/ul Comprehensive metabolic panel Status: Abnormal Collection Time: 06/22/22 5:36 AM Result Value Ref Range Sodium 138 136 - 146 meq/L Potassium 3.8 3.5 - 5.1 meq/L Chloride 109 102 - 112 meq/L CO2 20 (L) 21 - 32 meq/L Calcium 9.4 8.4 - 10.1 mg/dL Glucose 92 74 - 106 mg/dL BUN 16 7 - 22 mg/dL Creatinine 0.68 0.55 - 1.02 mg/dL BUN/Creatinine 24 (H) 8 - 20 Albumin 2.3 (L) 3.4 - 5.0 g/dL Alkaline Phosphatase 60 27 - 136 U/L ALT 35 13 - 56 U/L AST 36 5 - 37 U/L Total Bilirubin 0.7 0.2 - 1.2 mg/dL Protein, Total 5.9 (L) 6.4 - 8.2 gm/dL Anion Gap 13 9 - 20 A/G Ratio 0.6 (L) 1.1 - 2.5 Globulin 3.6 1.5 - 4.5 g/dL Osmolality Calc 276.5 eGFR (mL/min/1.73m2) >60 >=60 mL/min/1.73m2 Manual Differential Status: Abnormal Collection Time: 06/22/22 5:36 AM Result Value Ref Range Total Counted 100 % Neutros (manual) 49 (L) 50 - 65 % % Lymphs (manual) 29 24 - 44 % % Monos (manual) 17 (H) 4 - 5 % % Eos (manual) 5 (H) 0 - 3 % RBC Morphology abnormal (A) Normal Platelet Estimate Adequate Adequate Anisocytosis 1+ Hypochromia 1+ Ovalocytes 1+ ANC# 3.23 K/??L Ultrasound-guided vascular access Vascular Procedure Demographics Patient Name JOHN Mallory Age 81 Patient Number [id number] Gender Female Race Ethnicity Corporate ID [id number] Height 62 Date of 1940 Weight 150 Accession Number [id number] BSA 1.69 m^2 Room Number 538 BMI 27.44 kg/m^2 Referring Physician ARSLAN PORRAS Interpreting Physician ARSLAN PORRAS DO [facility] Procedure Type of Study: US GUIDED VASCULAR ACCESS : . Impressions Summary INDICATION: Angina at rest I20.8 . RIGHT: Ultrasound guided vascular access of Common femoral artery . COYOTE HUNTER was 3.0 cm in depth and patent. Access was successful. Allergies - Bactrim. - Morphine:(claritin). - Sulfa. Patient Status:Inpatient . Study Location:Portable. Technical Quality:Good visualization. Risk Factors - The patient's risk factor(s) include: treated arterial hypertension and prior CABG. - The patient's last creatinine was 0.8 mg/dl. Signature Assessment Orthostatic hypotension -check daily, positive orthostatics again today -on 06/20 case discussed w qamar [facility]--requested he to revisit. -continue bb -cortisol ordered with cosyntropin and then repeat cortisol level 30 min and 1 hour after. HOLD [facility] plan for AM-- attempt for this on 06/21 was unsuccessful I have personally spoke to lab, pharmacy, nursing regarding timing importance, dicsussed with patient and her daughter as well, education provided and questions answered -this is INHIBITING HER ABILITY TO WORK WITH PT AND GET TO [facility] -defer need for limited echo to Dr. Baron, discussed w him on 06/20 by previous hospitalist -need for compression hose deferred to cards ?? ACS -06/13--Successful balloon angioplasty and stenting of subtotal occlusion of proximal circumflex heavily calcified lesion 99% reduced to 10% -predilated with shockwave balloon 3.5 and treated with Kiran 3.5 x 15 drug-eluting stent which was postdilated with a 4.0 noncompliant balloon atmospheres -Echo: mod LVH EF 55% mod tricuspid regurg -Intolerant to brillinta, CARD changed to plavix, continue asa, continue statin ?? Metabolic Encephalopathy, resolved: ??2/2 acute UTI, complicated by narcotic use and advancing age. ?? Complicated UTI, resolved: UA turbid, nitrite+ with 2+ bacteria and suprapubic tenderness. -UA cleared 06/15 ?? L5/S1 disc herniation -PT/OT post-op, ?Resume home dose of lyrica. -06/12-->Left L5-S1 facetectomy with neuroforaminotomies discectomy for decompression of nerve root -fu [address] Odonnell ?? paroxysmal Atrial fibrillation -stop diltiazem- continue tele -clarify with cards--defer to them. Discussed w . Cards recs ASA only as no AFIB since 2012. Certainly with ortho stasis and recent back surgery would not start unless AFIB noted. Will hold andallow her to fu with cards as outpt. ?? Psoriatic Arthritis: Controlled on MTX. Immunocompromised: On MTX ??for psoriatic arthritis, takes on . Last dose was 05/31. On denosumab twice annually.Resume her methotrexate dose today. Continue folic acid/vit D, MVI supplementation. ?? VTE Ppx: lovenox GI Ppx: pantoprazole ?? Dispo: Ongoing profound orthostasis. Pt will need to be able to work with PT and not have orthostasis. [facility] following ?? MDM: High Time: 36 mins. Plan As above * Dorinda Graham RN - 06/22/2022 3:34 PM EDT Discharge Plan Progress Note Cynthia with [facility] following for possible admission Patient still orthostatic when working with therapy, will need to improve before [facility] will accept Dorinda Graham RN * ADILENE Veras/Tricia - 06/22/2022 2:50 PM EDT Images from the original note were not included. Inpatient Occupational Therapy Treatment Note Patient Name: Chen Merritt Date of : 1940 Date of Treatment: 06/22/22 Start Time: 1450 Stop Time: 1508 Session Duration: 18 This patient is a 81 y.o. female admitted on 06/10/2022 with Weakness [R53.1] Acute respiratory failure with hypoxia (HCC) [J96.01] Urinary tract infection without hematuria, site unspecified [N39.0] Altered mental status, unspecified altered mental status type [R41.82] Midline low back pain without sciatica, unspecified chronicity [M54.50]. Past Medical History: Diagnosis Date Arthritis Coronary artery disease Hyperlipidemia Hypertension Lumbar spondylolysis ME (myocardial infarction) (HCC) Osteopenia Psoriatic arthritis (HCC) Psoriatic arthritis (HCC) Past Surgical History: Procedure Laterality Date CHOLECYSTECTOMY HYSTERECTOMY LAMINECTOMY,LUMBAR Left 06/12/2022 Procedure: (LT L5-S1 FACETECTOMY AND NEUROFORAMINOTOMY; Surgeon: Edith Odonnell MD; Location: [facility] OR; Service: Neurosurgery; Laterality: Left; [place] 0800,1.5HRS(R) LAMINECTOMY,LUMBAR W/FUSION N/A 12/14/2021 Procedure: L3-5, L5-S1 FUSION AND DECOMPRESSION AUGMENTATION WITH ZIEHM; Surgeon: Ediht Odonnell MD; Location: [facility] OR; Service: Neurosurgery; Laterality: N/A; [place] 0830. 3 HRS (R). PASS. AIRO. PRE CERT STARTED, open heart 2008 4 bypass General Visit type: Treatment Approved by: Nurse Kenny Patient disposition upon entry: Supine in bed Co-treated by: Jolynn MUKHERJEE Assisted by: Therapy studentCrissy Precautions Weightbearing status: No restrictions Precautions: Fall risk Isolation precautions: Standard Subjective Subjective: Pt agreeable Pain No-patient has no complaints of pain Cognition Cognition: Overall cognitive status: WFL Arousal/alertness: Appropriate response to stimuli Following commands: Follows all commands and directions without difficulty Objective Vitals Vitals Supine Sitting Standing BP 165/90 mmHg 146/92 mmHg 81/58 mmHg Pt assisted back to supine and BP recovered to 158/90 within ~3minutes. Bed Mobility Scooting: Minimal assistance, 2 person assist Supine to sit: Minimal assistance, 2 person assist Sit to supine: Minimal assistance, 2 person assist Transfers Sit to stand:Minimal assistance, 2 person assist, Gait belt used, Rolling walker used Stand to sit:Minimal assistance, 2 person assist, Gait belt used, Rolling walker used ADLs Lower body dressing:Total Assistance , Bed level, Donning socks Balance Static sitting balance:Fair: Patient able to maintain balance with handheld support, may require occasional minimal assistance Dynamic sitting balance:Fair: Patient accepts minimal challenge; able to maintain balance while turning head/trunk Static standing balance:Fair: Patient able to maintain balance with handheld support, may require occasional minimal assistance Dynamic standing balance:Poor: Patient unable to accept challenge or move without loss of balance Activity Tolerance Pt limited with activity/intervention due to hypotension Treatment Pt presents supine in bed and agreeable to therapy treatment. Pt MinAx2 to complete supine to sit. Orthostatic vitals taken. Pt reports that she is not experiencing pain at this time and is feeling better than yesterday. Pt MinAx2 to complete sit to stand. Pt experiencing hypotension when standing.See vitals. Pt appeared to be shaky and was returned supine in bed. BP taken in supine (158/90). RNnotified. Pt put in chair position in bed. Assessment Assessment Pt will continue to benefit from skilled OT services during hospitalization to increase endurance and independence in functional daily living tasks. Pt is currently limited due by BP. Plan Recommendations Discharge recommendations: Discharge recommendations pending progression of acute hospital stay secondary to the patient's medical status DME recommendations: Unable to make recommendations at this time. Treatment Plan: ADL training, Functional mobility/transfer training, Co-treat with physical therapy, Continue OT POC OT Frequency/Duration: 5x/week for 14 days Goals Lower body dressing: Pt will complete lower body dressing with modified independence using pilot control operator helper,long handled shoehorn, sock aid. Bed mobility: Pt will complete supine to sit with modified independence supervision using head of bed elevated, use of bed rails. Functional transfers: Pt will complete toilet transfer with modified independence using rolling walker. Progress towards goals: progressing Goals were discussed with patient Education Patient educated on use of call light and following, they were able to nod head to understanding. Patient Disposition Upon Leaving Call Light/Pull Cord in reach, Bed placed in chair position. If this patient discharges prior to next therapy session, this note serves as the patient's discharge summary. Electronically signed by Kassidy Hernandez OT Student - 06/22/2022 - 3:29 PM EDT OTR/L has read documentation and is in agreement. Electronically signed by Mckayla Barreto, OTR/L - 06/22/2022 - 3:48 PM EDT * Jolynnangie Cottrell, PT - 06/22/2022 2:50 PM EDT Images from the original note were not included. Inpatient Physical Therapy Treatment Patient Name: Chen Merritt Date of : 1940 Date of Treatment: 06/22/22 Start Time 14:50 Stop Time 15:08 Session Duration 18 minutes General Visit type: Treatment Approved by: Nurse Kenny Patient Disposition Upon Entry: Supine in bed, Call Light/Pull Cord in reach, All needs met and within reach, Nursing aware/notified, HOB >30 degrees Co-treated by: Kassidy KRAMER, OT student Precautions Weight-Bearing Status: No Restrictions Precautions: Fall risk Isolation Precautions: Standard Lines, tubes, drains, airway: peripheral IV Subjective Subjective: Patient agreeable to physical therapy treatment. Pain No - Patient not reporting pain at this time Cognition Orientation Level: Oriented x4 Objective Vitals Pre-intervention vitals Taken supine Heart Rate 102 Blood pressure: 165/90 mmHg During intervention vitals: Taken while seated EOB Heart rate: 102 beats per minute Blood pressure: 146/92 mmHg Taken while standing Heart Rate 107 Blood Pressure: 81/48 mm Hg Post-intervention vitals Heart rate: 90 beats per minute Blood pressure: 158/90 mmHg Functional Mobility Bed Mobility: Rolling Right: minimal assistance, 1-person assist, HOB elevated, use of bed features Supine to Sit: minimal assistance, 2-person assist, HOB elevated, use of bed features Sit to Supine: minimal assistance, 2-person assist, HOB elevated, use of bed features Bed Scooting: maximal assistance, 2-person assist, HOB flat Transfers Sit to Stand: minimal assistance, 2-person assist, gait belt used, rolling walker used Stand to Sit: minimal assistance, 2-person assist, gait belt used, rolling walker used Gait Not safe to attempt due to medical condition or safety Balance Static/dynamic sitting and static/dynamic standing balance grades Balance Grade Sitting Static Good - patient able to maintain balance without handhold support, limited postural sway Sitting Dynamic Fair - patient accepts minimal challenge; able to maintain balance while turning head/trunk Standing Static Fair - patient able to maintain balance with handhold support; may require occasional minimal assistance Standing Dynamic not assessed this date Activity Tolerance Pt limited with activity/intervention due to hypotension Assessment Pt tolerated sitting EOB without blacking out and nausea this date. See vitals for BP throughout treatment. While standing pt's BP dropped. Pt's lunch was late and she does believe this has affected her. Pt to HOB with Max A x 2. Pt would continue to benefit from skilled PT to address intolerance to standing upright and return to prior level of function. Problems: Decreased functional mobility, Decreased strength, Decreased activity tolerance, Impaireddynamic balance, Pain Rehab potential: Good for stated goals Plan Treatment plan: Therapeutic Exercise, Therapeutic Activity, Transfer Training, Balance Training, Strengthening, Home Exercise Program, DME Recommendations, Co- Treat with OT PT Frequency/Duration: 5x/week for 14 days Recommendations Discharge recommendations: Patient would benefit from 1-2 hours of multidisciplinary therapy per day upon discharge from acute care setting to assist with returning to prior level of functioning. DME recommendations: Unable to make recommendations at this time. Goals Supine to/from sit: supervision Sit to/from stand: Tyson, [place] (met 4.30.23) Gait: 50ft, Rwx, Tyson Transfer: Tyson, Rwx Progress towards goals: progression limited by Hypotension Education Patient educated on use of call button and plan of care and following, they were able to verbalize understanding. No further questions or concerns stated. Patient Disposition Upon Leaving Supine in bed, Call Light/Pull Cord in reach, All needs met and within reach, HOB >30 degrees, Side rails up If this patient discharges prior to next therapy session, this note serves as the patient's discharge summary. This note was written by a PT/INTERNATIONAL LOGISTICS MANAGER Student and has been reviewed and agreed upon by this PT. Electronically signed by Jolynn Cottrell, PT - 06/22/2022 - 4:13 PM EDT Electronically signed by Crissy Julien, Physical Therapist Student - 06/22/2022 - 3:52 PM EDT * Simin DO Ritesh - 06/21/2022 3:39 PM EDT Subjective Patient seen in follow-up. No acute events reported overnight. This morning, she is still having ongoing orthostatic hypotension. At the time of my exam, physical therapy taking orthostatic vital signs, which were positive again. Her daughter is present in the room, questions were answered. Review of Systems Constitutional: Positive for fatigue. All other systems reviewed and are negative. Objective Last Recorded Vitals Blood pressure 124/77, pulse 117, temperature 97.2 ??F (36.2 ??C), resp. rate 16, height 1.6 m (5' 2.99 ), weight 68 kg (150 lb), SpO2 96 %. Physical Exam General: Alert and oriented, chronically ill appearing Neurologic: Awake, alert, and oriented X3 without focal deficit Eye: normal conjunctiva HENT: Normocephalic, atraumatic Neck: no JVD Lungs: Clear to auscultation, non-labored respiration Heart: sinus tachycardia, no mrg Abdomen: Soft, non distended, nontender Musculoskeletal: no edema Skin: Skin is warm, dry Psychiatric: Cooperative, appropriate mood Labs: Results for orders placed or performed during the hospital encounter of 06/10/22 (from the past 24 hour(s)) CBC - Hemogram (SJ-BKR) Status: Abnormal Collection Time: 06/21/22 6:53 AM Result Value Ref Range WBC 7.3 4.5 - 10.5 K/??L RBC 3.55 (L) 3.93 - 5.22 M/??L Hemoglobin 11.3 11.2 - 15.7 GM/DL Hematocrit 34.4 34.1 - 44.9 % MCV 97 (H) 79 - 95 fL MCH 31.8 25.6 - 32.2 pg MCHC 32.8 32.2 - 36.5 GM/DL RDW 14.6 11.7 - 14.9 % Platelets 316 163 - 369 K/CU MM MPV 10.9 9.4 - 12.4 fL Comprehensive metabolic panel Status: Abnormal Collection Time: 06/21/22 6:53 AM Result Value Ref Range Sodium 138 136 - 146 meq/L Potassium 3.7 3.5 - 5.1 meq/L Chloride 109 102 - 112 meq/L CO2 22 21 - 32 meq/L Calcium 9.5 8.4 - 10.1 mg/dL Glucose 91 74 - 106 mg/dL BUN 19 7 - 22 mg/dL Creatinine 0.71 0.55 - 1.02 mg/dL BUN/Creatinine 27 (H) 8 - 20 Albumin 2.3 (L) 3.4 - 5.0 g/dL Alkaline Phosphatase 60 27 - 136 U/L ALT 39 13 - 56 U/L AST 40 (H) 5 - 37 U/L Total Bilirubin 0.4 0.2 - 1.2 mg/dL Protein, Total 6.0 (L) 6.4 - 8.2 gm/dL Anion Gap 11 9 - 20 A/G Ratio 0.6 (L) 1.1 - 2.5 Globulin 3.7 1.5 - 4.5 g/dL Osmolality Calc 277.5 eGFR (mL/min/1.73m2) >60 >=60 mL/min/1.73m2 Cortisol Status: None Collection Time: 06/21/22 8:16 AM Result Value Ref Range Cortisol Level (mcg/dL) 1.3 mcg/dL Ultrasound-guided vascular access Vascular Procedure Demographics Patient Name JOHN Mallory Age 81 Patient Number [id number] Gender Female Race Ethnicity Corporate ID [id number] Height 62 Date of 1940 Weight 150 Accession Number [id number] BSA 1.69 m^2 Room Number 538 BMI 27.44 kg/m^2 Referring Physician ARSLAN PORRAS Interpreting Physician ARSLAN PORRAS DO [facility] Procedure Type of Study: US GUIDED VASCULAR ACCESS : . Impressions Summary INDICATION: Angina at rest I20.8 . RIGHT: Ultrasound guided vascular access of Common femoral artery . COYOTE HUNTER was 3.0 cm in depth and patent. Access was successful. Allergies - Bactrim. - Morphine:(claritin). - Sulfa. Patient Status:Inpatient . Study Location:Portable. Technical Quality:Good visualization. Risk Factors - The patient's risk factor(s) include: treated arterial hypertension and prior CABG. - The patient's last creatinine was 0.8 mg/dl. Signature Assessment Orthostatic hypotension -check daily, positive orthostatics again today -on 06/[address] Baron, [facility]--requested he to revisit. -continue bb -cortisol ordered with cosyntropin and then repeat cortisol level 1 hour after. I do not see that the repeat cortisol was resulted 1 hr after I am attempting to clarify with lab and nursing staff.In the meantime continue to HOLD FLORINEF -will fluid challenge -this is INHIBITING HER ABILITY TO WORK WITH PT AND GET TO [facility] -defer need for limited echo to Dr. Baron, discussed w him on 06/20 by previous hospitalist -need for compression hose deferred to cards ?? ACS -06/13--Successful balloon angioplasty and stenting of subtotal occlusion of proximal circumflex heavily calcified lesion 99% reduced to 10% -predilated with shockwave balloon 3.5 and treated with Powell 3.5 x 15 drug-eluting stent which was postdilated with a 4.0 noncompliant balloon atmospheres -Echo: mod LVH EF 55% mod tricuspid regurg -Intolerant to brillinta, CARD changed to plavix, continue asa, continue statin ?? Metabolic Encephalopathy, resolved: ??2/2 acute UTI, complicated by narcotic use and advancing age. ?? Complicated UTI, resolved: UA turbid, nitrite+ with 2+ bacteria and suprapubic tenderness. -UA cleared 06/15 ?? L5/S1 disc herniation -PT/OT post-op, ?Resume home dose of lyrica. -06/12-->Left L5-S1 facetectomy with neuroforaminotomies discectomy for decompression of nerve root -fu [address] Odonnell ?? paroxysmal Atrial fibrillation -stop diltiazem- continue tele -clarify with cards--defer to them. Discussed w . Cards recs ASA only as no AFIB since 2012. Certainly with ortho stasis and recent back surgery would not start unless AFIB noted. Will hold andallow her to fu with cards as outpt. ?? Psoriatic Arthritis: Controlled on MTX. Immunocompromised: On MTX ??for psoriatic arthritis, takes on . Last dose was 05/31. On denosumab twice annually.Resume her methotrexate dose today. Continue folic acid/vit D, MVI supplementation. ?? VTE Ppx: lovenox GI Ppx: pantoprazole ?? Dispo: Ongoing profound orthostasis. Pt will need to be able to work with PT and not have orthostasis. [facility] following ?? MDM: High Time: 37 mins. Plan As above * Yuli Fair OTR/Tricia - 06/21/2022 11:01 AM EDT Images from the original note were not included. Inpatient Occupational Therapy Treatment Note Patient Name: Chen Merritt Date of : 1940 Date of Treatment: 06/21/22 Start Time: 1000 Stop Time: 1101 Session Duration: 61 This patient is a 81 y.o. female admitted on 06/10/2022 with Weakness [R53.1] Acute respiratory failure with hypoxia (HCC) [J96.01] Urinary tract infection without hematuria, site unspecified [N39.0] Altered mental status, unspecified altered mental status type [R41.82] Midline low back pain without sciatica, unspecified chronicity [M54.50]. Past Medical History: Diagnosis Date ??? Arthritis ??? Coronary artery disease ??? Hyperlipidemia ??? Hypertension ??? Lumbar spondylolysis ??? ME (myocardial infarction) (HCC) ??? Osteopenia ??? Psoriatic arthritis (HCC) ??? Psoriatic arthritis (HCC) Past Surgical History: Procedure Laterality Date ??? CHOLECYSTECTOMY ??? HYSTERECTOMY ??? LAMINECTOMY,LUMBAR Left 06/12/2022 Procedure: (LT L5-S1 FACETECTOMY AND NEUROFORAMINOTOMY; Surgeon: Edith Odonnell MD; Location: [facility] OR; Service: Neurosurgery; Laterality: Left; [place] 0800,1.5HRS(R) ??? LAMINECTOMY,LUMBAR W/FUSION N/A 12/14/2021 Procedure: L3-5, L5-S1 FUSION AND DECOMPRESSION AUGMENTATION WITH ZIEHM; Surgeon: Edith Odonnell MD; Location: [facility] OR; Service: Neurosurgery; Laterality: N/A; [place] 0830. 3 HRS (R). PASS. AIRO. PRE CERT STARTED, ??? open heart 2008 4 bypass General Visit type: Treatment Approved by: Nurse Schafer Patient disposition upon entry: Supine in bed Co-treated by: Jolynn MUKHERJEE Assisted by: Therapy studentRuthie Precautions Weightbearing status: No restrictions Precautions: None Isolation precautions: Standard Subjective Subjective: Pt agreeable Pain No-patient reports 0/10 pain Cognition Cognition: Overall cognitive status: WFL Orientation level: Oriented x4 Objective Vitals Vitals Supine Sitting Standing HR 89 bpm 107 bpm 113 bpm BP 176/90 mmHg 156/96 mmHg 107/68 mmHg Longer pt is up, worse BP, color, and vision got. Pt color left and stated she blacked out while standing with therapy and BP was 74/51 after being up at EOB x10 min and then standing. Bed Mobility Rolling: Minimal assistance Scooting: Minimal assistance Supine to sit: Minimal assistance Sit to supine: Minimal assistance Transfers Sit to stand:Moderate assistance, 2 person assist Stand to sit:Minimal assistance, 2 person assist Activity Tolerance Patient limited with activity/intervention due to exteme BP drop when up. Orthostatics went from 176/90 while supine to 74/51 while standing. Treatment Pt supine in bed and transferred to EOB. Pt immediately could feel herself getting dizzy and she started to shake. Pt stood and dizziness and blurred vision became worse. Pt transferred back to EOB. Pt sat EOB for rest break. Pt transferred to chair with gait belt, walker, verbal cues, and mod A x2. Pt became very dizzy and states she is starting to black out and became pale but was still able toanswer questions and talk, difficult to keep eyes open. This is when BP had tanked. Pt recovered inchair and RN notified. Pt stating she wants to get back to bed due to pain in bottom. Pt transferred back to bed with mod A x2. Pt BP back elevated after 5 min supine in bed. Pt bed placed in chair po sition. Assessment Assessment Pt will benefit from continued skilled OT services. Pt limited due to BP issues and unable to leavedue to this major concern. Pt unable to perform any ADL or further functional mobility due to beinglimited by BP. Plan Recommendations Discharge recommendations: Discharge recommendations pending progression of acute hospital stay secondary to the patient's medical status DME recommendations: Unable to make recommendations at this time. Treatment Plan: Continue OT POC OT Frequency/Duration: 5x/week for 14 days Goals Lower body dressing: Pt will complete??lower body dressing??with modified independence??using pilot control operator helper, long handled shoehorn, sock aid. Bed mobility: Pt will complete??supine to sit??with modified independence supervision??using head of bed elevated, use of bed rails. Functional transfers: Pt will complete??toilet transfer??with modified independence??using rolling walker. ?? Progress towards goals:??progressing?? Goals were discussed with??patient Patient Disposition Upon Leaving Bed placed in chair position, All needs met and within reach, Visitor/Family present, Patient verified by name, Patient verified by date of If this patient discharges prior to next therapy session, this note serves as the patient's discharge summary. Electronically signed by ADILENE Carnes/Tricia - 06/21/2022 - 12:34 PM EDT * Skip Singh, PT - 06/21/2022 10:00 AM EDT Images from the original note were not included. Inpatient Physical Therapy Treatment Patient Name: Chen Merritt Date of : 1940 Date of Treatment: 06/21/22 Start Time 10:00 am Stop Time 11:01 Session Duration 61 minutes General Visit type: Treatment Approved by: Nurse Schafer Patient Disposition Upon Entry: Supine in bed, Call Light/Pull Cord in reach, All needs met and within reach, Nursing aware/notified, HOB >30 degrees, Visitor/Family present Co-treated by: Yuli KRAMER Precautions Weight-Bearing Status: No Restrictions Precautions: None Isolation Precautions: Standard Lines, tubes, drains, airway: peripheral IV Subjective Subjective: Patient agreeable to physical therapy treatment. Pain No - Patient not reporting pain at this time Cognition Overall cognitive status: WFL Orientation Level: Oriented x4 Following commands: Follows all commands and directions without difficulty Safety Judgment: Good awareness of safety precautions Objective Vitals Pre-intervention vitals Taken supine Heart rate: 88 beats per minute Blood pressure: 176/70 mmHg During intervention vitals: Taken EOB Blood pressure: 156/98 mmHg Taken while Standing x 1 Blood Pressure: 107/68 Taken while attempting to stand x 2 but sat immediately Blood Pressure: 97/61 Post-intervention vitals Taken while in chair Blood pressure: 74/51 mmHg Functional Mobility Bed Mobility: Rolling Right: minimal assistance, 2-person assist Supine to Sit: minimal assistance, 2-person assist Sit to Supine: minimal assistance, 2-person assist Bed Scooting: moderate assistance, 2-person assist, verbal cues to push with legs and reach with arms to get up in bed Transfers Sit to Stand: minimal assistance, moderate assistance, 2-person assist, gait belt used, rolling walker used Stand to Sit: minimal assistance, moderate assistance, gait belt used, rolling walker used Bed to/from Chair: minimal assistance, 2-person assist, 4 steps x 2, to chair and then back to bed Gait Not safe to attempt due to medical condition or safety Attempted pre-gait activity with weight shifting and marches. However, pt felt nauseated shifting discontinued Balance Static/dynamic sitting and static/dynamic standing balance grades Balance Grade Sitting Static Fair - patient able to maintain balance with handhold support; may require occasional minimal assistance Sitting Dynamic Fair - patient accepts minimal challenge; able to maintain balance while turning head/trunk Standing Static Fair - patient able to maintain balance with handhold support; may require occasional minimal assistance Standing Dynamic Poor - patient unable to accept challenge or move without loss of balance Activity Tolerance Pt limited with activity/intervention due to hypotension Assessment Pt initiated movement to EOB. See vitals, BP monitored entire treatment. Pt tolerated EOB for 20 min. Sit to stand x 4 total. Upon second stance BP dropped and pt felt nauseous. Sight went black, andshe requested a cold cloth on her neck. Pt stood and took 4 steps to the chair. Pt sat up for 5 minbefore requesting to go back to bed for comfort. Pt Min A x 2 to get back into bed. Mod A x 2 to get to HOB in a comfortable position. Bed placed in chair position to encourage pt tolerance of being upright. Pt would continue to benefit from skilled PT to address hypotension and return to prior level of function. Problems: Decreased activity tolerance, Impaired dynamic balance Rehab potential: Good for stated goals Plan Treatment plan: Therapeutic Exercise, Therapeutic Activity, Transfer Training, Balance Training, Strengthening, ROM PT Frequency/Duration: 5x/week for 14 days Recommendations Discharge recommendations: Patient would benefit from 1-2 hours of multidisciplinary therapy per day upon discharge from acute care setting to assist with returning to prior level of functioning. DME recommendations: Unable to make recommendations at this time. Goals Supine to/from sit: supervision Sit to/from stand: Tyson, Rwx (met 4.30.23) Gait: 50ft, Rwx, Tyson Transfer: Tyson, Rwx Progress towards goals: progression limited by hypotension Education Patient/Visitors educated on plan of care, ambulation and transfers and following, they were able to verbalize understanding. No further questions or concerns stated. Patient Disposition Upon Leaving Supine in bed, Call Light/Pull Cord in reach, All needs met and within reach, Nursing aware/notified, Feet elevated, HOB >30 degrees, Visitor/Family present If this patient discharges prior to next therapy session, this note serves as the patient's discharge summary. Electronically signed by Crissy JulienPhysical Therapist Student - 06/21/2022 - 12:47 PM EDT This note written by PT student. PT has reviewed the above documentation and agrees. Electronically signed by Skip Singh PT, DPT - 06/22/22 - 11:05 AM EST * Dorinda Graham RN - 06/20/2022 1:23 PM EDT Discharge Plan Progress Note Hospital day 10 Estimated LOS 8.5 High readmission risk Cardio reconsulted for weakness and orthostatice hypotension. Cynthia with [facility] is monitoring patient for progress with therapy for possible [facility] admission. Dorinda Graham RN * Abebe Baron MD - 06/20/2022 11:54 AM EDT [facility] Basic Information: Name Chen Merritt, 1940, 81 y.o., female Primary Suspension Cord Tier: Dr. Grazyna Dowell PCP: Mayank Angel MD Admit Date 06/10/2022 Patient Location [phone] Subjective: Pt doing better overall. Reported ortho stasis with PT prompting a re consult by IM service. Review of Sytems: Complete 10 point ROS Normal or Non-contributory except complaints described in HPI or other sections of this note. Health Status: Allergies Brilinta [Ticagrelor], Claritin [Loratadine], Bactrim [Sulfamethoxazole- Trimethoprim], Macrobid [Nitrofurantoin Monohyd/M-Cryst], Morphine, and Sulfa (Sulfonamide Antibiotics) Home Medications: Prior to Admission medications Medication Sig Start Date End Date Taking? Authorizing Provider aspirin 81 MG EC tablet Take 1 tablet (81 mg total) by mouth in the morning. Yes Historical Provider, atorvastatin (LIPITOR) 40 MG tablet Take 1 tablet (40 mg total) by mouth nightly. Yes Historical Provider, calcium phosphate-vitamin D3 250 mg-12.5 mcg (500 unit) Chew Take 1 tablet by mouth in the morning and 1 tablet before bedtime. Yes Historical Provider, cetirizine (ZyrTEC) 10 MG tablet Take 1 tablet (10 mg total) by mouth in the morning. Yes Historical Provider, cholecalciferol (VITAMIN D3) 25 mcg (1,000 unit) tablet Take 1 tablet (1,000 Units total) by mouth in the morning. Yes Historical Provider, denosumab (Prolia) 60 mg/mL Syrg Inject 1 mL (60 mg total) subcutaneously every 6 (six) months. YesHistorical Provider, diclofenac 1 % Gel Apply 2 g topically 4 (four) times daily as needed (for Pain). 09/13/21 Yes Historical Provider, docusate sodium (COLACE) 100 MG capsule Take 2 capsules (200 mg total) by mouth in the morning and 2 capsules (200 mg total) before bedtime. Yes Historical Provider, folic acid (FOLVITE) 1 MG tablet Take 1 tablet (1 mg total) by mouth in the morning. Take everyday except on the day of methotrexate. 09/13/21 Yes Historical Provider, methotrexate 2.5 MG tablet Take 8 tablets (20 mg total) by mouth once a week. 10/31/21 Yes Historical Provider, metoprolol tartrate (LOPRESSOR) 25 MG tablet Take 1 tablet (25 mg total) by mouth in the morning and 1 tablet (25 mg total) before bedtime. Yes Historical Provider, eahkyrts-nqg-OX-lycopen-lutein (Centrum Silver) 0.4 mg-300 mcg- 250 mcg Tab Take 1 tablet by mouth daily . Yes Historical Provider, pantoprazole (PROTONIX) 40 MG tablet Take 1 tablet (40 mg total) by mouth in the morning. Yes Historical Provider, pregabalin (LYRICA) 50 MG capsule Take 3 capsules (150 mg total) by mouth nightly. 09/13/21 Yes Historical Provider, dilTIAZem (CARDIZEM CD) 180 MG 24 hr capsule Take 1 capsule (180 mg total) by mouth in the morning.Historical Provider, HYDROcodone-acetaminophen (NORCO 7.5-325) 7.5-325 mg per tablet Take 1 tablet by mouth 2 (two) times daily as needed for Pain. Max Daily Amount: 2 tablets Historical Provider, losartan (COZAAR) 25 MG tablet Take 1 tablet (25 mg total) by mouth in the morning and 1 tablet (25mg total) before bedtime. Historical Provider, Past Medical History: Pt has a past medical history of Arthritis, Coronary artery disease, Hyperlipidemia, Hypertension, Lumbar spondylolysis, ME (myocardial infarction) (HCC), Osteopenia, Psoriatic arthritis (HCC), and Psoriatic arthritis (HCC). Surgical History: Pt has a past surgical history that includes Cholecystectomy; open heart (2008); LAMINECTOMY,LUMBARW/FUSION (N/A, 12/14/2021); Hysterectomy; and LAMINECTOMY,LUMBAR (Left, 06/12/2022). Tobacco History Pt reports that she has never smoked. She has never used smokeless tobacco. Alcohol History Pt reports no history of alcohol use. Drug Use History Pt reports no history of drug use. Family History family history is not on file. OBJECTIVE Vital ranges lat 24 hours Resp: [16] 16 Intake and Output 24 hours: Intake/Output Summary (Last 24 hours) at 06/20/2022 1154 Last data filed at 06/19/2022 2200 Gross per 24 hour Intake -- Output 2400 ml Net -2400 ml Net I&O this admission: Net IO Since Admission: -3,289.75 mL [06/20/22 1154] Physical Exam General: Alert and oriented, No acute distress. HENT: Normocephalic, Oral mucosa is moist. Neck: Supple, Non-tender, No carotid bruit, No jugular venous distention. Respiratory: Lungs are clear to auscultation, Respirations are non-labored, Symmetrical chest wall expansion. Cardiovascular: Normal rate, Regular rhythm, No murmur, Good pulses equal in all extremities. Gastrointestinal: Soft, Non-distended, Normal bowel sounds. Integumentary: Warm, Dry, [place]. Neurologic: Alert, Oriented. Psychiatric: Cooperative, Appropriate mood & affect. Inpatient Medications aspirin, 81 mg, Oral, Daily atorvastatin, 80 mg, Oral, Once cetirizine, 10 mg, Oral, Daily cholecalciferol, 1,000 Units, Oral, Daily clopidogreL, 75 mg, Oral, Daily [START ON 06/21/2022] cosyntropin, 0.25 mg, Intravenous, Once docusate sodium, 100 mg, Oral, BID enoxaparin, 40 mg, Subcutaneous, Q24H CHRIS fluticasone propionate, 2 spray, Each Nare, BID folic acid, 1,000 mcg, Oral, Daily metoprolol tartrate, 25 mg, Oral, BID multivitamin, 1 tablet, Oral, Daily pantoprazole, 40 mg, Oral, Daily polyethylene glycol 3350, 17 g, Oral, Daily pregabalin, 150 mg, Oral, Every Night Saccharomyces boulardii, 250 mg, Oral, BID sodium chloride 0.9% (NS), 500 mL, Intravenous, Once Results Review: Labs: WBC Date Value Ref Range Status 06/17/2022 7.9 4.5 - 10.5 K/??L Final 06/16/2022 7.7 4.5 - 10.5 K/??L Final 06/15/2022 7.4 4.5 - 10.5 K/??L Final Hemoglobin Date Value Ref Range Status 06/17/2022 11.9 11.2 - 15.7 GM/DL Final 06/16/2022 11.1 (L) 11.2 - 15.7 GM/DL Final 06/15/2022 11.8 11.2 - 15.7 GM/DL Final Platelets Date Value Ref Range Status 06/17/2022 316 163 - 369 K/CU MM Final 06/16/2022 260 163 - 369 K/CU MM Final 06/15/2022 267 163 - 369 K/CU MM Final Creatinine Date Value Ref Range Status 06/19/2022 0.81 0.55 - 1.02 mg/dL Final 06/18/2022 0.81 0.55 - 1.02 mg/dL Final 06/17/2022 0.79 0.55 - 1.02 mg/dL Final BUN Date Value Ref Range Status 06/19/2022 32 (H) 7 - 22 mg/dL Final 06/18/2022 26 (H) 7 - 22 mg/dL Final 06/17/2022 27 (H) 7 - 22 mg/dL Final Potassium Date Value Ref Range Status 06/19/2022 3.8 3.5 - 5.1 meq/L Final 06/18/2022 4.6 3.5 - 5.1 meq/L Final 06/17/2022 4.9 3.5 - 5.1 meq/L Final Sodium Date Value Ref Range Status 06/19/2022 136 136 - 146 meq/L Final 06/18/2022 137 136 - 146 meq/L Final 06/17/2022 135 (L) 136 - 146 meq/L Final Magnesium Date Value Ref Range Status 06/13/2022 1.2 (L) 1.5 - 2.4 mg/dL Final 06/10/2022 2.0 1.5 - 2.4 mg/dL Final AST Date Value Ref Range Status 06/13/2022 38 (H) 5 - 37 U/L Final ALT Date Value Ref Range Status 06/13/2022 20 13 - 56 U/L Final Alkaline Phosphatase Date Value Ref Range Status 06/13/2022 60 27 - 136 U/L Final TSH Date Value Ref Range Status 06/17/2022 3.170 0.358 - 3.740 uIU/mL Final INR Date Value Ref Range Status 06/13/2022 1.01 0.90 - 1.20 Final Comment: Recommended therapeutic ranges using International Normalized Ratio (INR) are: INR RANGE 2.0 - 3.0 ? Routine oral anticoagulant therapy 2.5 - 3.5 ? Oral anticoagulant therapy for patients with thromboembolic events on standard doses of Coumadin and those with mechanical heart valves. Imaging: CARDIAC CATH - LEFT HEART CATH W/ POSSIBLE INTERVENTION Coronary anatomy -Left main mild 20 to [...] was noted through that the RCA distribution. -Vein graft 1 2 and 3 are occluded as demonstrated by angiography -RIVERA to the LAD-the RIVERA is intact. The anastomosis distally is intact. Successful balloon angioplasty and stenting of subtotal occlusion of proximal circumflex heavily calcified lesion 99% reduced to 10% -predilated nwith shockwave balloon3.5 and treated with Kiran 3.5 x 15 drug-eluting stent Problem list: Active Problems: There are no active Hospital Problems. Impression and Plan: IMPRESSION: * NSTEMI: Postoperative after lumbar spine surgery A. ANGELICA ---> proximal calcified Cx * Atherosclerotic cardiovascular disease with history of coronary artery bypass grafting x4 (2009) * Orthostatic hypotension * Hypertension * Dyslipidemia * Psoriatic arthritis * Metabolic encephalopathy * Acute UTI * L5/S1 disc herniation--status post discectomy on 06/12 PLAN: 06/20/2022 Reconsulted for weakness, orthostatic hypotension. Strongly recommend PT despite orthostasis. She will need ambulation and LE strengthening. Use LE compression stockings. IV fluid bolus challenge. Midodrine as last resort, maybe 2.5mg BID, but concern for supine HTN. Overall supportive care. 06/18/2022 Reconsulted for episode of chest pain last night. HS Troponin trending down now 703 was 2951 on 06/13 2951. EKG shows no acute ischemic changes. May be GI related. Recommend continuation of PPI while on DAPT. For orthostasis recommend discontinuing her Cardizem for now and reassess response to therapy. May cut down on metoprolol dose if needed. Discussed with Yady Rajan PA-C from hospital medicine. 06/14/2022 Current medical therapy appropriate Refer to cardiac rehab Ambulate with PT per surgical recommendations We will plan for outpatient follow-up in 4 weeks 06/13/2022 Urgent cardiac catheterization. I spoke with Neurosurgeon Dr. Odonnell about the situation. We are clear to use anti-platelets and anti-coag as needed. I spoke with Dr. Porras in the dental laboratory manager regarding the case. * Sarahi Rajan PA-C - 06/20/2022 11:01 AM EDT Images from the original note were not included. HOSPITALIST PROGRESS NOTE Patient: Chen Merritt Date: 06/20/2022 Subjective Date of Service: 06/20/2022 Patient remains orthostatic, got dizzy/nauseous with systolic BP droppping to 80's with therapy. Now recovered, Tachycardiac, ST 110-115 Denies chest pain No family bedside On RA Objective Vitals: Resp: [16] 16 Physical exam: General: Alert and oriented, frail, in good spirits, pleasant and conversant Neurologic: Awake, alert, and oriented X3 Eye: normal conjunctiva HENT: Normocephalic, atraumatic Neck: no JVD Lungs: Clear to auscultation, non-labored respiration Heart: sinus tachycardia Abdomen: Soft, non distended Musculoskeletal: no edema Skin: Skin is warm, dry, no rashes Psychiatric: Cooperative, appropriate mood Medications: Scheduled Meds: ??? aspirin 81 mg Oral Daily 81 mg at 06/20/22941 ??? atorvastatin 80 mg Oral Once ??? cetirizine 10 mg Oral Daily 10 mg at 06/18/22 0900 ??? cholecalciferol 1,000 Units Oral Daily 1,000 Units at 06/20/22941 ??? clopidogreL 75 mg Oral Daily 75 mg at 06/20/22942 ??? docusate sodium 100 mg Oral BID 100 mg at 06/20/22942 ??? enoxaparin 40 mg Subcutaneous Q24H CHRIS 40 mg at 06/20/22941 ??? fludrocortisone 100 mcg Oral BID 100 mcg at 06/20/22941 ??? fluticasone propionate 2 spray Each Nare BID 2 spray at 06/20/2244 ??? folic acid 1,000 mcg Oral Daily 1,000 mcg at 06/20/22941 ??? metoprolol tartrate 25 mg Oral BID 25 mg at 06/19/229 ??? multivitamin 1 tablet Oral Daily 1 tablet at 06/20/22942 ??? pantoprazole 40 mg Oral Daily 40 mg at 06/20/2243 ??? polyethylene glycol 3350 17 g Oral Daily 17 g at 06/20/2242 ??? pregabalin 150 mg Oral Every Night 150 mg at 06/19/22 2201 ??? Saccharomyces boulardii 250 mg Oral BID 250 mg at 06/20/22 0943 ??? sodium chloride 0.9% (NS) 500 mL Intravenous Once Continuous Infusions: PRN Meds: ??? acetaminophen ??? acetaminophen ??? aluminum-magnesium hydroxide-simethicone ??? dextrose ??? diclofenac ??? fluconazole ??? naloxone ??? ondansetron Or ??? ondansetron PF ??? oxyCODONE Assessment and Plan Orthostatic hypotension -check daily -discussed w Dr. Baron, stop cardizem--requested he to revisit. -continue bb -will order cortisol level tomorrow at 0800. Request cosyntropin and then repeat cortisol level 1 hour after. Not sure if feasible from staff perspective but will attempt. HOLD FLORINEF -will fluid challenge -this is INHIBITING HER ABILITY TO WORK WITH PT AND GET [facility] -defer need for limited echo to Dr. Baron, discussed w him -need for compression hose deferred to cards ACS -06/13--Successful balloon angioplasty and stenting of subtotal occlusion of proximal circumflex heavily calcified lesion 99% reduced to 10% -predilated with shockwave balloon 3.5 and treated with Kiran 3.5 x 15 drug-eluting stent which was postdilated with a 4.0 noncompliant balloon atmospheres -Echo: mod LVH EF 55% mod tricuspid regurg -Intolerant to brillinta, CARD changed to plavix, continue asa, continue statin ?? Metabolic Encephalopathy, resolved: ??2/2 acute UTI, complicated by narcotic use and advancing age. Complicated UTI, resolved: UA turbid, nitrite+ with 2+ bacteria and suprapubic tenderness. -UA cleared 06/15 ?? L5/S1 disc herniation -PT/OT post-op, Resume home dose of lyrica. -06/12-->Left L5-S1 facetectomy with neuroforaminotomies discectomy for decompression of nerve root -fu [address] Odonnell paroxysmal Atrial fibrillation -stop diltiazem- continue tele -clarify with cards--defer to them. Discussed w . Cards recs ASA only as no AFIB since 2012. Certainly with ortho stasis and recent back surgery would not start unless AFIB noted. Will hold andallow her to fu with cards as outpt. Psoriatic Arthritis: Controlled on MTX. Immunocompromised: On MTX ??for psoriatic arthritis, takes on . Last dose was 05/31. On denosumab twice annually. Continue to hold here. Continue folic acid/vit D, MVI supplementation. VTE Ppx: lovenox GI Ppx: pantoprazole Dispo: Dr. Baron to revisit regarding profound orthostasis. Pt will need to be able to work with PT and not have orthostasis. [facility] following MDM: High Time: [address] Baron and team at length. Signed: Sarahi Rajan PA-C 06/20/2022 Cosigned by Chino Reardon MD at 06/21/2022 11:35 AM EDT * Yuli Fair, NIAR/Tricia - 06/20/2022 9:58 AM EDT Images from the original note were not included. Inpatient Occupational Therapy Treatment Note Patient Name: Chen Merritt Date of : 1940 Date of Treatment: 06/20/22 Start Time: 919 Stop Time: 957 Session Duration: 38 This patient is a 81 y.o. female admitted on 06/10/2022 with Weakness [R53.1] Acute respiratory failure with hypoxia (HCC) [J96.01] Urinary tract infection without hematuria, site unspecified [N39.0] Altered mental status, unspecified altered mental status type [R41.82] Midline low back pain without sciatica, unspecified chronicity [M54.50]. Past Medical History: Diagnosis Date ??? Arthritis ??? Coronary artery disease ??? Hyperlipidemia ??? Hypertension ??? Lumbar spondylolysis ??? ME (myocardial infarction) (HCC) ??? Osteopenia ??? Psoriatic arthritis (HCC) ??? Psoriatic arthritis (HCC) Past Surgical History: Procedure Laterality Date ??? CHOLECYSTECTOMY ??? HYSTERECTOMY ??? LAMINECTOMY,LUMBAR Left 06/12/2022 Procedure: (LT L5-S1 FACETECTOMY AND NEUROFORAMINOTOMY; Surgeon: Edith Odonnell MD; Location: [facility] OR; Service: Neurosurgery; Laterality: Left; [place] 0800,1.5HRS(R) ??? LAMINECTOMY,LUMBAR W/FUSION N/A 12/14/2021 Procedure: L3-5, L5-S1 FUSION AND DECOMPRESSION AUGMENTATION WITH ZIEHM; Surgeon: Edith Odonnell MD; Location: [facility] OR; Service: Neurosurgery; Laterality: N/A; [place] 0830. 3 HRS (R). PASS. AIRO. PRE CERT STARTED, ??? open heart 2008 4 bypass General Visit type: Treatment Approved by: Nurse Schafer Patient disposition upon entry: Supine in bed Co-treated by: Omayra MUKHERJEE Assisted by: Therapy studentRuthie Precautions Weightbearing status: No restrictions Precautions: None Isolation precautions: Standard Subjective Subjective: Pt agreeable Pain No-patient reports 0/10 pain Cognition Cognition: Overall cognitive status: WFL Orientation level: Oriented x4 Objective Vitals Vitals Supine Sitting Standing BP 152/87 mmHg 132/85 mmHg 83/47 mmHg Bed Mobility Rolling: Modified independent Supine to sit: Minimal assistance Sit to supine: Moderate assistance Transfers Sit to stand:Moderate assistance, 2 person assist Stand to sit:Moderate assistance ADLs Grooming:Minimal Assistance Lower body dressing:Moderate Assistance Balance Static sitting balance:Good: Patient able to maintain balance without handheld support; limited postural sway Dynamic sitting balance:Fair: Patient accepts minimal challenge; able to maintain balance while turning head/trunk Static standing balance:Fair: Patient able to maintain balance with handheld support, may require occasional minimal assistance Dynamic standing balance:Poor: Patient unable to accept challenge or move without loss of balance Activity Tolerance Pt limited with activity/intervention due to dizziness, lightheadedness and blacking out Treatment Pt required mod A to don socks and get socks started over toes. Pt supine in bed and transferred toEOB. Pt slightly dizzy when sitting EOB. Pt transferred to stand and rapidly became dizzy and felt like her vision changed after being up. Pt progressively became more dizzy and vision starting to alter and turn black the longer she stood. Pt transferred back to EOB and symptoms leveled out while sitting EOB however, they did not disappear. Pt was able to participate in ADL tasks while seated at EOB. Pt shaky while attempting grooming tasks and required min A for set up and verbal cues. Pt continued to have symptoms and required transfer back to supine in bed. Assessment Assessment Pt will benefit from continued skilled OT services. Pt biggest barrier at this time is BP changes and orthostatics. This extreme change makes dynamic standing tasks such as bathing and dressing a safety concern for the patient. Plan Recommendations Discharge recommendations: Patient would benefit from 3 hours of intensive multidisciplinary therapy per day to maximize functional outcomes and address functional limitations to return to highest level of functioning. Treatment Plan: Continue OT POC OT Frequency/Duration: 5x/week for 14 days Goals Lower body dressing: Pt will complete??lower body dressing??with modified independence??using pilot control operator helper, long handled shoehorn, sock aid. Bed mobility: Pt will complete??supine to sit??with modified independence supervision??using head of bed elevated, use of bed rails. Functional transfers: Pt will complete??toilet transfer??with modified independence??using rolling walker. ?? Progress towards goals: progressing Goals were discussed with patient Education Patient educated on safety, use of call light, role of occupational therapy, patient's plan of care, ADLs, functional mobility and following, they were able to verbalize understanding. Patient Disposition Upon Leaving Supine in bed, All needs met and within reach, Patient verified by name, Patient verified by date of If this patient discharges prior to next therapy session, this note serves as the patient's discharge summary. Electronically signed by SALUD Carnes - 06/20/2022 - 1:58 PM EDT * Omayra Rose, PT - 06/20/2022 9:21 AM EDT Images from the original note were not included. Inpatient Physical Therapy Treatment Patient Name: Chen Merritt Date of : 1940 Date of Treatment: 06/20/22 Start Time 9:21 am Stop Time 10:00 Session Duration 39 minutes General Visit type: Treatment Approved by: Nurse Schafer Patient Disposition Upon Entry: Supine in bed, Call Light/Pull Cord in reach, All needs met and within reach, HOB >30 degrees, Side rails up Co-treated by: OT, Yuli Precautions Weight-Bearing Status: No Restrictions Precautions: Fall risk Isolation Precautions: Standard Lines, tubes, drains, airway: peripheral IV Subjective Subjective: Patient agreeable to physical therapy treatment. Pain No - Patient not reporting pain at this time Cognition Overall cognitive status: WFL Arousal/Alertness: Appropriate response to stimuli Orientation Level: Oriented x4 Following commands: Follows all commands and directions without difficulty Safety Judgment: Good awareness of safety precautions Objective Vitals Pre-intervention vitals Taken supine Blood pressure: 152/87 mmHg Room air During intervention vitals: Taken while seated EOB Blood pressure: 132/85 mmHg Taken while standing Blood Pressure: 83/47 (reported her vision went black) Post-intervention vitals Taken while supine Blood pressure: 124/77 mmHg Functional Mobility Bed Mobility: Rolling Left: supervision, HOB elevated, use of bed features Supine to Sit: minimal assistance, 1-person assist, HOB elevated, use of bed features Sit to Supine: minimal assistance, 1-person assist, HOB elevated, use of bed features Bed Scooting: minimal assistance, moderate assistance, 2-person assist, HOB flat, use of bed features, Pt able to bridge and use arms, but requires more assistance to get to the HOB Transfers Sit to Stand: moderate assistance, 2-person assist, gait belt used, rolling walker used Stand to Sit: moderate assistance, 2-person assist, gait belt used, rolling walker used Gait Not safe to attempt due to medical condition or safety Balance Static/dynamic sitting and static/dynamic standing balance grades Balance Grade Sitting Static Good - patient able to maintain balance without handhold support, limited postural sway Sitting Dynamic Fair - patient accepts minimal challenge; able to maintain balance while turning head/trunk Standing Static Fair - patient able to maintain balance with handhold support; may require occasional minimal assistance Standing Dynamic Not tested this date Activity Tolerance Pt limited with activity/intervention due to dizziness, nausea and hypotension Treatment LE therapeutic exercise quad set, ankle pumps, All performed for 1 set of 10 reps Assessment PT sat EOB with Min A x 1, tactile cues at shoulder to get upright. Pt was very anxious about standing. Pt stood with Mod A x 1 and elevated bed. Stood for 5 min before she stated she was nauseous and her vision started to go black. Pt sat down to recover. BP was taken and it lowered. See vitals. Pt sat EOB for 8 minutes to perform ADL's but nausea did not dissipate. Pt got supine with Mod A x 2 for legs and trunk. Bed placed in chair position and pt educated on benefits of tolerating upright position. Pt would continue to benefit from skilled PT to address hypotension tolerance and return toprior level of function. Problems: Decreased core stability, Decreased strength, Decreased activity tolerance, Impaired standing balance, Impaired dynamic balance Rehab potential: Good for stated goals Plan Treatment plan: Therapeutic Exercise, Therapeutic Activity, Transfer Training, Balance Training, Strengthening, Home Exercise Program, ROM, DME Recommendations, Co-Treat with OT PT Frequency/Duration: 5x/week for 14 days Recommendations Discharge recommendations: Patient would benefit from 1-2 hours of multidisciplinary therapy per day upon discharge from acute care setting to assist with returning to prior level of functioning. DME recommendations: Unable to make recommendations at this time. Goals Supine to/from sit:??supervision Sit to/from stand:??Tyson, Rwx??(met 4.30.23) Gait:??50ft, Rwx, Tyson Transfer:??Tyson, Rwx? Target Date:?06/29/2022 Progress towards goals: progression limited by dizzines, nausea, and blacking out when standing Education Patient educated on safety, transfers, ROM/positioning and risk for falls and following, they were able to verbalize understanding. No further questions or concerns stated. Patient Disposition Upon Leaving Supine in bed, Call Light/Pull Cord in reach, All needs met and within reach, Nursing aware/notified, Side rails up If this patient discharges prior to next therapy session, this note serves as the patient's discharge summary. Electronically signed by Crissy Julien, Physical Therapist Student - 06/20/2022 - 11:52 AM EDT Note written by student PT. PT has reviewed the above documentation and agrees. Electronically signed by Omayra Rose PT - 06/20/2022 - 1:39 PM EDT * Sarahi Rajan PA-C - 06/19/2022 1:58 PM EDT Images from the original note were not included. HOSPITALIST PROGRESS NOTE Patient: Chen Merritt Date: 06/19/2022 Subjective Date of Service: 06/19/2022 Orthostatics pending Awaiting working with PT Family bedside On RA Objective Vitals: Temp: [97.2 ??F (36.2 ??C)] 97.2 ??F (36.2 ??C) Pulse: [37-104] 89 BP: (137-165)/(76-87) 137/76 Physical exam: General: Alert and oriented, frail, in good spirits Neurologic: Awake, alert, and oriented X3 Eye: normal conjunctiva HENT: Normocephalic, atraumatic Neck: no JVD Lungs: Clear to auscultation, non-labored respiration Heart: Normal rate, regular rhythm Abdomen: Soft, non distended Musculoskeletal: no edema Skin: Skin is warm, dry, no rashes Psychiatric: Cooperative, appropriate mood Telemetry: Sinus rhythm Labs: Results for orders placed or performed during the hospital encounter of 06/10/22 (from the past 24 hour(s)) Basic Metabolic Panel Status: Abnormal Collection Time: 06/19/22 5:40 AM Result Value Ref Range Sodium 136 136 - 146 meq/L Potassium 3.8 3.5 - 5.1 meq/L Chloride 106 102 - 112 meq/L CO2 21 21 - 32 meq/L Anion Gap 13 9 - 20 BUN 32 (H) 7 - 22 mg/dL Creatinine 0.81 0.55 - 1.02 mg/dL BUN/Creatinine 40 (H) 8 - 20 Glucose 98 74 - 106 mg/dL Calcium 9.5 8.4 - 10.1 mg/dL Osmolality Calc 278.8 eGFR (mL/min/1.73m2) >60 >=60 mL/min/1.73m2 Medications: Scheduled Meds: ??? aspirin 81 mg Oral Daily 81 mg at 06/19/22 1007 ??? atorvastatin 80 mg Oral Once ??? cetirizine 10 mg Oral Daily 10 mg at 06/18/22 0900 ??? cholecalciferol 1,000 Units Oral Daily 1,000 Units at 06/19/22 1007 ??? clopidogreL 75 mg Oral Daily 75 mg at 06/19/22 1008 ??? docusate sodium 100 mg Oral BID 100 mg at 06/19/22 1007 ??? enoxaparin 40 mg Subcutaneous Q24H CHRIS 40 mg at 06/19/22 1008 ??? fludrocortisone 100 mcg Oral BID 100 mcg at 06/19/22 1006 ??? fluticasone propionate 2 spray Each Nare BID 2 spray at 06/18/22 0900 ??? folic acid 1,000 mcg Oral Daily 1,000 mcg at 06/19/22 1006 ??? metoprolol tartrate 25 mg Oral BID 25 mg at 06/19/22 1007 ??? multivitamin 1 tablet Oral Daily 1 tablet at 06/19/22 1007 ??? pantoprazole 40 mg Oral Daily 40 mg at 06/19/22 1008 ??? polyethylene glycol 3350 17 g Oral Daily 17 g at 06/19/22 1008 ??? pregabalin 150 mg Oral Every Night 150 mg at 06/18/22 2041 ??? Saccharomyces boulardii 250 mg Oral BID 250 mg at 06/19/22 1012 Continuous Infusions: PRN Meds: ??? acetaminophen ??? acetaminophen ??? aluminum-magnesium hydroxide-simethicone ??? dextrose ??? diclofenac ??? fluconazole ??? naloxone ??? ondansetron Or ??? ondansetron PF ??? oxyCODONE Assessment and Plan Orthostatic hypotension -check daily -discussed w Dr. Baron, stop cardizem -continue bb -cortisol level 0.8 06/18 ACS/NSTEMI -06/13--Successful balloon angioplasty and stenting of subtotal occlusion of proximal circumflex heavily calcified lesion 99% reduced to 10% -predilated with shockwave balloon 3.5 and treated with Kiran 3.5 x 15 drug-eluting stent which was postdilated with a 4.0 noncompliant balloon atmospheres -Echo: mod LVH EF 55% mod tricuspid regurg -Intolerant to brillinta, CARD changed to plavix, continue asa, continue statin ?? Metabolic Encephalopathy, resolved: ??2/2 acute UTI, complicated by narcotic use and advancing age. Complicated UTI, resolved: UA turbid, nitrite+ with 2+ bacteria and suprapubic tenderness. -UA cleared 06/15 ?? L5/S1 disc herniation -PT/OT post-op, Resume home dose of lyrica. -4/25-->Left L5-S1 facetectomy with neuroforaminotomies discectomy for decompression of nerve root -fu [address] Odonnell paroxysmal Atrial fibrillation - need to talk with patient and family risk-benefit of apixaban at discharge -stop diltiazem- continue tele -clarify with cards--defer to them. Discussed w . Cards recs ASA only as no AFIB since 2012. Certainly with ortho stasis and recent back surgery would not start unless AFIB noted. Will hold andallow her to fu with cards as outpt. Psoriatic Arthritis: Controlled on MTX. Immunocompromised: On MTX ??for psoriatic arthritis, takes on . Last dose was 05/31. On denosumab twice annually. Continue to hold here. Continue folic acid/vit D, MVI supplementation. VTE Ppx: lovenox GI Ppx: pantoprazole Dispo: pending pt/ot and orthostatics. Weak. [facility] following per CM. MDM: High Time: 30 mins. Signed: Sarahi Rajan PA-C 06/19/2022 Cosigned by Chino Reardon MD at 06/21/2022 11:35 AM EDT * Sarahi Rajan PA-C - 06/18/2022 4:00 PM EDT Images from the original note were not included. HOSPITALIST PROGRESS NOTE Patient: Chen Merritt Date: 06/18/2022 Subjective Date of Service: 06/18/2022 Orthostatic Dizzy and nausea with standing with PT No further cp Discussed w cards On RA Objective Vitals: Temp: [97.5 ??F (36.4 ??C)-98.2 ??F (36.8 ??C)] 97.5 ??F (36.4 ??C) Pulse: [82-103] 82 Resp: [18] 18 BP: (117-171)/(69-93) 117/69 Physical exam: General: Alert and oriented, frail Neurologic: Awake, alert, and oriented X3, no apparent focal deficits Eye: EOMI, normal conjunctiva HENT: Normocephalic, atraumatic Neck: no carotid bruits, no JVD Lungs: Clear to auscultation, non-labored respiration Heart: Normal rate, regular rhythm, no murmur Abdomen: Soft, non-tender, non-distended, normal bowel sounds Musculoskeletal: Normal range of motion and strength, no tenderness or swelling Skin: Skin is warm, dry, no rashes or lesions Psychiatric: Cooperative, appropriate mood and affect Telemetry: Sinus rhythm Labs: Results for orders placed or performed during the hospital encounter of 06/10/22 (from the past 24 hour(s)) ECG 12 lead Status: None Collection Time: 06/17/22 6:00 PM Result Value Ref Range VENTRICULAR RATE EKG/MIN 95 BPM ATRIAL RATE (MCT) 95 BPM AR Interval 134 ms QRS-INTERVAL (MSEC) 90 ms QT Interval 366 ms QTC Interval 459 ms R AXIS (MCT) -20 degrees T Wave [employer] 23 degrees [place] Diagnosis Sinus rhythm with occasional premature ventricular complexes RSR' or QR pattern in V1 suggests right ventricular conduction delay Borderline ECG When compared with ECG of 14-JUN-2022 08:17, premature ventricular complexes are now present T wave amplitude has decreased in Anterior leads Confirmed by MD Tod, Abebe ([id number]), research editor SUSAN GAONA ([id number]) on 06/18/2022 2:42:55 PM High Sensitivity Troponin I Status: Abnormal Collection Time: 06/17/22 6:34 PM Result Value Ref Range Troponin I High Sensitivity (pg/mL) 739.0 (HH) 3 - 58.8 pg/mL High Sensitivity Troponin I Status: Abnormal Collection Time: 06/17/22 9:42 PM Result Value Ref Range Troponin I High Sensitivity (pg/mL) 703.9 (HH) 3 - 58.8 pg/mL CBC with automated diff Status: Abnormal Collection Time: 06/17/22 9:42 PM Result Value Ref Range WBC 7.9 4.5 - 10.5 K/??L RBC 3.66 (L) 3.93 - 5.22 M/??L Hemoglobin 11.9 11.2 - 15.7 GM/DL Hematocrit 35.1 34.1 - 44.9 % MCV 96 (H) 79 - 95 fL MCH 32.5 (H) 25.6 - 32.2 pg MCHC 33.9 32.2 - 36.5 GM/DL RDW 14.8 11.7 - 14.9 % Platelets 316 163 - 369 K/CU MM MPV 10.8 9.4 - 12.4 fL % Neutros 53 34 - 71 % % Lymphs 28 19 - 53 % % Monos 14 (H) 3 - 9 % % Eos 4 (H) 0 - 1 % % Baso 0 0 - 2 % NRBC Absolute 0.00 0 - 0.12 K/ul # Neutros 4.24 1.56 - 6.13 K/??L # Lymphs 2.20 1.00 - 3.50 K/??L # Monos 1.10 (H) 0.16 - 1.00 K/??L # Eos 0.28 0.00 - 0.80 K/??L # Baso 0.03 0.00 - 0.20 K/??L Immature Granulocytes-Relative 1.10 (H) 0.00 - 0.60 % # IG 0.09 (H) 0.00 - 0.05 K/uL Cortisol Status: None Collection Time: 06/18/22 7:53 AM Result Value Ref Range Cortisol Level (mcg/dL) 0.8 mcg/dL Basic Metabolic Panel Status: Abnormal Collection Time: 06/18/22 7:54 AM Result Value Ref Range Sodium 137 136 - 146 meq/L Potassium 4.6 3.5 - 5.1 meq/L Chloride 105 102 - 112 meq/L CO2 22 21 - 32 meq/L Anion Gap 15 9 - 20 BUN 26 (H) 7 - 22 mg/dL Creatinine 0.81 0.55 - 1.02 mg/dL BUN/Creatinine 32 (H) 8 - 20 Glucose 94 74 - 106 mg/dL Calcium 9.7 8.4 - 10.1 mg/dL Osmolality Calc 278.3 eGFR (mL/min/1.73m2) >60 >=60 mL/min/1.73m2 Radiology: Radiology Results (last 3 days) No results found for the last 72 hours. Medications: Scheduled Meds: ??? aspirin 81 mg Oral Daily 81 mg at 06/18/22 0850 ??? atorvastatin 80 mg Oral Once ??? cetirizine 10 mg Oral Daily 10 mg at 06/18/22899 ??? cholecalciferol 1,000 Units Oral Daily 1,000 Units at 06/18/2250 ??? clopidogreL 75 mg Oral Daily 75 mg at 06/18/2251 ??? docusate sodium 100 mg Oral BID 100 mg at 06/17/222041 ??? enoxaparin 40 mg Subcutaneous Q24H CHRIS 40 mg at 06/18/2250 ??? fludrocortisone 100 mcg Oral BID 100 mcg at 06/18/2250 ??? fluticasone propionate 2 spray Each Nare BID 2 spray at 06/18/22899 ??? folic acid 1,000 mcg Oral Daily 1,000 mcg at 06/18/22850 ??? metoprolol tartrate 25 mg Oral BID 25 mg at 06/18/2250 ??? multivitamin 1 tablet Oral Daily 1 tablet at 06/18/22850 ??? pantoprazole 40 mg Oral Daily 40 mg at 06/18/22850 ??? polyethylene glycol 3350 17 g Oral Daily 17 g at 06/16/22902 ??? pregabalin 150 mg Oral Every Night 150 mg at 06/17/222041 ??? Saccharomyces boulardii 250 mg Oral BID 250 mg at 06/18/22899 Continuous Infusions: PRN Meds: ??? acetaminophen ??? acetaminophen ??? aluminum-magnesium hydroxide-simethicone ??? dextrose ??? diclofenac ??? fluconazole ??? naloxone ??? ondansetron Or ??? ondansetron PF ??? oxyCODONE Assessment and Plan Orthostatic hypotension -check daily -discussed w Dr. Baron, stop cardizem -continue bb -cortisol level 0.8 06/18 ACS/NSTEMI -06/13--Successful balloon angioplasty and stenting of subtotal occlusion of proximal circumflex heavily calcified lesion 99% reduced to 10% -predilated with shockwave balloon 3.5 and treated with Kiran 3.5 x 15 drug-eluting stent which was postdilated with a 4.0 noncompliant balloon atmospheres -Echo: mod LVH EF 55% mod tricuspid regurg -Intolerant to brillinta, CARD changed to plavix, continue asa, continue statin ?? Metabolic Encephalopathy, resolved: ??2/2 acute UTI, complicated by narcotic use and advancing age. Complicated UTI, resolved: UA turbid, nitrite+ with 2+ bacteria and suprapubic tenderness. -UA cleared 06/15 ?? L5/S1 disc herniation -PT/OT post-op, Resume home dose of lyrica. -06/12-->Left L5-S1 facetectomy with neuroforaminotomies discectomy for decompression of nerve root -fu [address] Odonnell paroxysmal Atrial fibrillation, CHADVASC 6 - need to talk with patient and family risk-benefit of apixaban at discharge -stop diltiazem- continue tele - optimize lytes Psoriatic Arthritis: Controlled on MTX. Immunocompromised: On MTX ??for psoriatic arthritis, takes on . Last dose was 05/31. On denosumab twice annually. Continue to hold here. Continue folic acid/vit D, MVI supplementation. VTE Ppx: lovenox GI Ppx: pantoprazole Dispo: orthostatic, changing meds. Discussed w Dr. Baron. Weak. [facility] following per CM. MDM: High Time: 40 mins. Signed: Sarahi Rajan PA-C 06/18/2022 Cosigned by Chino Reardon MD at 06/18/2022 6:02 PM EDT * Abebe Baron MD - 06/18/2022 3:58 PM EDT [facility] Basic Information: Name Chen Merritt, 1940, 81 y.o., female Primary Suspension Cord Tier: Dr. Grazyna Dowell PCP: Mayank Angel MD Admit Date 06/10/2022 Patient Location [phone] Subjective: Patient doing well with no acute events. Reconsulted for chest pain. Review of Sytems: Complete 10 point ROS Normal or Non-contributory except complaints described in HPI or other sections of this note. Health Status: Allergies Brilinta [Ticagrelor], Claritin [Loratadine], Bactrim [Sulfamethoxazole- Trimethoprim], Macrobid [Nitrofurantoin Monohyd/M-Cryst], Morphine, and Sulfa (Sulfonamide Antibiotics) Home Medications: Prior to Admission medications Medication Sig Start Date End Date Taking? Authorizing Provider aspirin 81 MG EC tablet Take 1 tablet (81 mg total) by mouth in the morning. Yes Historical Provider, atorvastatin (LIPITOR) 40 MG tablet Take 1 tablet (40 mg total) by mouth nightly. Yes Historical Provider, calcium phosphate-vitamin D3 250 mg-12.5 mcg (500 unit) Chew Take 1 tablet by mouth in the morning and 1 tablet before bedtime. Yes Historical Provider, cetirizine (ZyrTEC) 10 MG tablet Take 1 tablet (10 mg total) by mouth in the morning. Yes Historical Provider, cholecalciferol (VITAMIN D3) 25 mcg (1,000 unit) tablet Take 1 tablet (1,000 Units total) by mouth in the morning. Yes Historical Provider, denosumab (Prolia) 60 mg/mL Syrg Inject 1 mL (60 mg total) subcutaneously every 6 (six) months. YesHistorical Provider, diclofenac 1 % Gel Apply 2 g topically 4 (four) times daily as needed (for Pain). 09/13/21 Yes Historical Provider, docusate sodium (COLACE) 100 MG capsule Take 2 capsules (200 mg total) by mouth in the morning and 2 capsules (200 mg total) before bedtime. Yes Historical Provider, folic acid (FOLVITE) 1 MG tablet Take 1 tablet (1 mg total) by mouth in the morning. Take everyday except on the day of methotrexate. 09/13/21 Yes Historical Provider, methotrexate 2.5 MG tablet Take 8 tablets (20 mg total) by mouth once a week. 10/31/21 Yes Historical Provider, metoprolol tartrate (LOPRESSOR) 25 MG tablet Take 1 tablet (25 mg total) by mouth in the morning and 1 tablet (25 mg total) before bedtime. Yes Historical Provider, trrmljlx-tdx-KM-lycopen-lutein (Centrum Silver) 0.4 mg-300 mcg- 250 mcg Tab Take 1 tablet by mouth daily . Yes Historical Provider, pantoprazole (PROTONIX) 40 MG tablet Take 1 tablet (40 mg total) by mouth in the morning. Yes Historical Provider, pregabalin (LYRICA) 50 MG capsule Take 3 capsules (150 mg total) by mouth nightly. 09/13/21 Yes Historical Provider, dilTIAZem (CARDIZEM CD) 180 MG 24 hr capsule Take 1 capsule (180 mg total) by mouth in the morning.Historical Provider, HYDROcodone-acetaminophen (NORCO 7.5-325) 7.5-325 mg per tablet Take 1 tablet by mouth 2 (two) times daily as needed for Pain. Max Daily Amount: 2 tablets Historical Provider, losartan (COZAAR) 25 MG tablet Take 1 tablet (25 mg total) by mouth in the morning and 1 tablet (25mg total) before bedtime. Historical Provider, Past Medical History: Pt has a past medical history of Arthritis, Coronary artery disease, Hyperlipidemia, Hypertension, Lumbar spondylolysis, ME (myocardial infarction) (HCC), Osteopenia, Psoriatic arthritis (HCC), and Psoriatic arthritis (HCC). Surgical History: Pt has a past surgical history that includes Cholecystectomy; open heart (2008); LAMINECTOMY,LUMBARW/FUSION (N/A, 12/14/2021); Hysterectomy; and LAMINECTOMY,LUMBAR (Left, 06/12/2022). Tobacco History Pt reports that she has never smoked. She has never used smokeless tobacco. Alcohol History Pt reports no history of alcohol use. Drug Use History Pt reports no history of drug use. Family History family history is not on file. OBJECTIVE Vital ranges lat 24 hours Temp: [97.5 ??F (36.4 ??C)-98.2 ??F (36.8 ??C)] 97.5 ??F (36.4 ??C) Pulse: [82-103] 82 Resp: [18] 18 BP: (117-171)/(69-93) 117/69 Intake and Output 24 hours: No intake or output data in the 24 hours ending 06/18/22 1558 Net I&O this admission: Net IO Since Admission: 610.25 mL [06/18/22 1558] Physical Exam General: Alert and oriented, No acute distress. HENT: Normocephalic, Oral mucosa is moist. Neck: Supple, Non-tender, No carotid bruit, No jugular venous distention. Respiratory: Lungs are clear to auscultation, Respirations are non-labored, Symmetrical chest wall expansion. Cardiovascular: Normal rate, Regular rhythm, No murmur, Good pulses equal in all extremities. Gastrointestinal: Soft, Non-distended, Normal bowel sounds. Musculoskeletal: Normal range of motion, Normal strength. Mild swelling of hands and feet. Integumentary: Warm, Dry, Leland. Neurologic: Alert, Oriented. Psychiatric: Cooperative, Appropriate mood & affect. Inpatient Medications aspirin, 81 mg, Oral, Daily atorvastatin, 80 mg, Oral, Once cetirizine, 10 mg, Oral, Daily cholecalciferol, 1,000 Units, Oral, Daily clopidogreL, 75 mg, Oral, Daily docusate sodium, 100 mg, Oral, BID enoxaparin, 40 mg, Subcutaneous, Q24H CHRIS fludrocortisone, 100 mcg, Oral, BID fluticasone propionate, 2 spray, Each Nare, BID folic acid, 1,000 mcg, Oral, Daily metoprolol tartrate, 25 mg, Oral, BID multivitamin, 1 tablet, Oral, Daily pantoprazole, 40 mg, Oral, Daily polyethylene glycol 3350, 17 g, Oral, Daily pregabalin, 150 mg, Oral, Every Night Saccharomyces boulardii, 250 mg, Oral, BID Results Review: Labs: WBC Date Value Ref Range Status 06/17/2022 7.9 4.5 - 10.5 K/??L Final 06/16/2022 7.7 4.5 - 10.5 K/??L Final 06/15/2022 7.4 4.5 - 10.5 K/??L Final Hemoglobin Date Value Ref Range Status 06/17/2022 11.9 11.2 - 15.7 GM/DL Final 06/16/2022 11.1 (L) 11.2 - 15.7 GM/DL Final 06/15/2022 11.8 11.2 - 15.7 GM/DL Final Platelets Date Value Ref Range Status 06/17/2022 316 163 - 369 K/CU MM Final 06/16/2022 260 163 - 369 K/CU MM Final 06/15/2022 267 163 - 369 K/CU MM Final Creatinine Date Value Ref Range Status 06/18/2022 0.81 0.55 - 1.02 mg/dL Final 06/17/2022 0.79 0.55 - 1.02 mg/dL Final 06/16/2022 0.76 0.55 - 1.02 mg/dL Final BUN Date Value Ref Range Status 06/18/2022 26 (H) 7 - 22 mg/dL Final 06/17/2022 27 (H) 7 - 22 mg/dL Final 06/16/2022 26 (H) 7 - 22 mg/dL Final Potassium Date Value Ref Range Status 06/18/2022 4.6 3.5 - 5.1 meq/L Final 06/17/2022 4.9 3.5 - 5.1 meq/L Final 06/16/2022 4.1 3.5 - 5.1 meq/L Final Sodium Date Value Ref Range Status 06/18/2022 137 136 - 146 meq/L Final 06/17/2022 135 (L) 136 - 146 meq/L Final 06/16/2022 140 136 - 146 meq/L Final Magnesium Date Value Ref Range Status 06/13/2022 1.2 (L) 1.5 - 2.4 mg/dL Final 06/10/2022 2.0 1.5 - 2.4 mg/dL Final AST Date Value Ref Range Status 06/13/2022 38 (H) 5 - 37 U/L Final ALT Date Value Ref Range Status 06/13/2022 20 13 - 56 U/L Final Alkaline Phosphatase Date Value Ref Range Status 06/13/2022 60 27 - 136 U/L Final TSH Date Value Ref Range Status 06/17/2022 3.170 0.358 - 3.740 uIU/mL Final INR Date Value Ref Range Status 06/13/2022 1.01 0.90 - 1.20 Final Comment: Recommended therapeutic ranges using International Normalized Ratio (INR) are: INR RANGE 2.0 - 3.0 ? Routine oral anticoagulant therapy 2.5 - 3.5 ? Oral anticoagulant therapy for patients with thromboembolic events on standard doses of Coumadin and those with mechanical heart valves. Imaging: CARDIAC CATH - LEFT HEART CATH W/ POSSIBLE INTERVENTION Coronary anatomy -Left main mild 20 to [...] was noted through that the RCA distribution. -Vein graft 1 2 and 3 are occluded as demonstrated by angiography -RIVERA to the LAD-the RIVERA is intact. The anastomosis distally is intact. Successful balloon angioplasty and stenting of subtotal occlusion of proximal circumflex heavily calcified lesion 99% reduced to 10% -predilated nwith shockwave balloon3.5 and treated with Powell 3.5 x 15 drug-eluting stent Problem list: Active Problems: There are no active Hospital Problems. Impression and Plan: IMPRESSION: * NSTEMI: Postoperative after lumbar spine surgery A. ANGELICA ---> proximal calcified Cx * Atherosclerotic cardiovascular disease with history of coronary artery bypass grafting x4 (2008) * Orthostatic hypotension * Hypertension * Dyslipidemia * Psoriatic arthritis * Metabolic encephalopathy * Acute UTI * L5/S1 disc herniation--status post discectomy on 06/12 PLAN: 06/18/2022 Reconsulted for episode of chest pain last night. HS Troponin trending down now 703 was 2951 on 06/13 2951. EKG shows no acute ischemic changes. May be GI related. Recommend continuation of PPI while on DAPT. For orthostasis recommend discontinuing her Cardizem for now and reassess response to therapy. May cut down on metoprolol dose if needed. Discussed with Yady Rajan PA-C from [facility]. 06/14/2022 Current medical therapy appropriate Refer to cardiac rehab Ambulate with PT per surgical recommendations We will plan for outpatient follow-up in 4 weeks 06/13/2022 Urgent cardiac catheterization. I spoke with Neurosurgeon Dr. Odonnell about the situation. We are clear to use anti-platelets and anti-coag as needed. I spoke with Dr. Porras in the dental laboratory manager regarding the case. * Omayra Rose, PT - 06/18/2022 2:59 PM EDT Images from the original note were not included. Inpatient Physical Therapy Treatment Patient Name: Chen Merritt Date of : 1940 Date of Treatment: 06/18/22 Start Time 2:59 pm Stop Time 2:25 Session Duration 24 minutes General Visit type: Treatment Approved by: Nurse Gustafson Patient Disposition Upon Entry: Supine in bed, Call Light/Pull Cord in reach, All needs met and within reach, Nursing aware/notified, HOB >30 degrees, Side rails up Precautions Weight-Bearing Status: No Restrictions Precautions: None Isolation Precautions: Standard Lines, tubes, drains, airway: peripheral IV Subjective Subjective: Patient agreeable to physical therapy treatment. Pain No - Patient not reporting pain at this time Cognition Overall cognitive status: WFL Arousal/Alertness: Appropriate response to stimuli Orientation Level: Oriented x4 Following commands: Follows all commands and directions without difficulty Objective Vitals Pre-intervention vitals Taken while supine Heart rate: 93 beats per minute Blood pressure: 139/74 mmHg During intervention vitals: Taken while seated Blood pressure: 112/81 mmHg Taken while standing Blood Pressure: 89/54 Post-intervention vitals Taken while seated Blood pressure: 127/76 mmHg Functional Mobility Bed Mobility: Rolling Right: minimal assistance, 2-person assist, HOB elevated, use of bed features Supine to Sit: moderate assistance, 2-person assist, HOB elevated, use of bed features Sit to Supine: moderate assistance, 2-person assist Bed Scooting: moderate assistance, 2-person assist, Able to bridge and assist Transfers Sit to Stand x 2: moderate assistance, 2-person assist, gait belt used, rolling walker used, verbalcues to place feet under base of support and place hands on bed and Rwx Stand to Sit: moderate assistance, 2-person assist, gait belt used, rolling walker used Gait Not safe to attempt due to medical condition or safety Stair Management Not safe to attempt due to medical condition or safety Balance Static/dynamic sitting and static/dynamic standing balance grades Balance Grade Sitting Static Good - patient able to maintain balance without handhold support, limited postural sway Sitting Dynamic Fair - patient accepts minimal challenge; able to maintain balance while turning head/trunk Standing Static Poor - patient requires handhold support and moderate to maximal assistance to maintain position Standing Dynamic Poor - patient unable to accept challenge or move without loss of balance Activity Tolerance Pt limited with activity/intervention due to dizziness, nausea, hypotension and LE exercise, Ankle Pumps, Quad Sets, Glut squeezes. All exercises performed 1 x 10 Assessment Pt required mod A x 2 and verbal cues to get to EOB. See vitals for BP monitoring while getting upright. Sit to stand with Mod A x 2, BP dropped and pt reported her vision started to go black, she felt nauseated, her jaws locked up, and she needed to sit. A cold rag decreased her nauseated symptoms. Pt stood a second time and dizziness and nauseated symptoms began again. PA came in and talked to pt about adjusting medications. Pt mobilized supine Mod A x 2 to get to HOB. Pt would continue to benefit from skilled PT to address stated deficits and return to prior level of function. Problems: Decreased functional mobility, Decreased activity tolerance, Impaired dynamic balance, Decreased tolerance to upright positioning Rehab potential: Good for stated goals Plan Treatment plan: Therapeutic Exercise, Therapeutic Activity, Transfer Training, Balance Training, Stair Training, Strengthening, Home Exercise Program, Co-Treat with OT PT Frequency/Duration: 5x/week for 14 days Recommendations Discharge recommendations: Patient would benefit from 1-2 hours of multidisciplinary therapy per day upon discharge from acute care setting to assist with returning to prior level of functioning. DME recommendations: Unable to make recommendations at this time. Goals Goals Supine to/from sit:??supervision Sit to/from stand:??Chapito Mehta (met 4.30.23) Gait:??50ft, Rwx, Tyson Transfer:??Tyson, Rwx? Target Date:?06/29/2022 Education Patient educated on safety, use of call button, role of physical therapy, plan of care and transfers and following, they were able to verbalize understanding. No further questions or concerns stated. Patient Disposition Upon Leaving Supine in bed, Patient up in room AD JOSE RAMON, Call Light/Pull Cord in reach, Feet elevated, HOB >30 degrees, Side rails up If this patient discharges prior to next therapy session, this note serves as the patient's discharge summary. Electronically signed by Crissy Julien Physical Therapist Student - 06/18/2022 - 4:04 PM EDT Note written by student PT. PT has reviewed the above documentation and agrees. Electronically signed by Omayra Rose, PT - 06/18/2022 - 4:22 PM EDT * Dorinda Graham RN - 06/18/2022 12:59 PM EDT Discharge Plan Progress Note CM following for str placement. TRISTEN spoke with Cynthia with [facility] this date, Cynthia following. Dorinda Graham RN * Claus Snell, PT - 06/17/2022 3:45 PM EDT Images from the original note were not included. Inpatient Physical Therapy Treatment Patient Name: Chen Merritt Date of : 1940 Date of Treatment: 06/17/22 Start Time 1510 Stop Time 1517 Session Duration 17 minutes General Visit type: Treatment Approved by: Nurse Gustafson Patient Disposition Upon Entry: Supine in bed, Call Light/Pull Cord in reach, All needs met and within reach, Nursing aware/notified, HOB >30 degrees, Side rails up Precautions Weight-Bearing Status: Full Weight Bearing (FWB) Precautions: Fall risk , Orthostatic hypotension Isolation Precautions: Standard Lines, tubes, drains, airway: peripheral IV Subjective Subjective: Patient agreeable to physical therapy treatment. Pain No - Patient not reporting pain at this time Cognition Overall cognitive status: WFL Orientation Level: Oriented x4 Following commands: Follows one step commands with increased time Objective Vitals Vitals Supine Sitting Standing HR 94 bpm 110 bpm 118 bpm BP 145/83 mmHg 106/68 mmHg 86/51 mmHg Functional Mobility Bed Mobility: Supine to Sit: moderate assistance, 1-person assist Sit to Supine: moderate assistance, 1-person assist Transfers Sit to Stand: minimal assistance, 1-person assist, gait belt used, rolling walker used Stand to Sit: minimal assistance, 1-person assist, gait belt used, rolling walker used Gait Not safe to attempt due to medical condition or safety Stair Management Not safe to attempt due to medical condition or safety Wheelchair Mobility Not safe to attempt due to medical condition or safety Balance Static/dynamic sitting and static/dynamic standing balance grades Balance Grade Sitting Static Fair - patient able to maintain balance with handhold support; may require occasional minimal assistance Sitting Dynamic Poor - patient unable to accept challenge or move without loss of balance Standing Static Fair - patient able to maintain balance with handhold support; may require occasional minimal assistance Standing Dynamic Poor - patient unable to accept challenge or move without loss of balance Activity Tolerance Pt limited with activity/intervention due to fatigue, dizziness, lightheadedness, hypotension and weakness Treatment Pt transferred modA supine>sit and sat EOB with varied assist from CGA to Tyson for sitting balance w posterior lean. Pt noted with increased dizziness and significant drop in BP from supine to sitting as indicated in orthostatic vitals. Pt able to sit EOB for ~8min today. Due to improved sittingtolerance, pt challenged to stand RW Tyson for vitals assessment and improved standing tolerance. Ptstood ~60sec Tyson RW w posterior lean before returning to sit due to increased dizziness 2/2 hypotension. Pt returned to supine modA and positioned for comfort in chair position. Assessment Pt continues to struggle w orthostatic hypotension decreasing tolerance to positional changes and decreasing endurance. Pt is at very high risk of falls 2/2 orthostatic hypotension. Problems: Decreased functional mobility, Decreased gait tolerance, Decreased strength, Decreased activity tolerance, Edema, Sensory deficits Rehab potential: Fair Plan Treatment Plan: Therapeutic Exercise, Therapeutic Activity, Gait Training, Neuromuscular Re-education, Transfer Training, Strengthening, Patient/Family/Caregiver Education, DME Recommendations, Co-Treat with OT PT Frequency/Duration: 5x/week for 14 days ?? Recommendations Discharge recommendations: Discharge recommendations pending progression of acute hospital stay secondary to the patient's medical status ?? DME recommendations: Patient has no DME/adaptive equipment discharge needs at this time. ?? Goals Supine to/from sit: supervision Sit to/from stand: Tyson, Rwx (met 4.30.23) Gait: 50ft, Rwx, Tyson Transfer: Tyson, Rwx ?? Target Date: 06/29/2022 Progress: One goal met today Education Patient educated on orthostatic precautions and risk for falls and following, they were able to verbalize understanding. No further questions or concerns stated. Patient Disposition Upon Leaving Supine in bed, Call Light/Pull Cord in reach, All needs met and within reach, Nursing aware/notified, HOB >30 degrees, Side rails up If this patient discharges prior to next therapy session, this note serves as the patient's discharge summary. Electronically signed by Claus Snell PT - 06/17/2022 - 3:46 PM EDT * Simin Umanzor APRN - 06/17/2022 2:17 PM EDT Images from the original note were not included. HOSPITALIST PROGRESS NOTE Patient: Chen Merritt Date: 06/17/2022 Subjective Date of Service: 06/17/2022 I rounded with RN, daughter at bedside Per nursing notes, unable to BladderScan overnight RN BladderScan patient today, less than 100 mL retained. She has not gotten the patient up to checkorthostatics. She reports that she is staying in sinus rhythm. I discussed that we will continue tohold beta-shivam. Patient reports that she is sore laying in the bed, wants to get up and moving. I discussed with her that physical therapy is ordered if we will work with her, can put the patient up in bed chair position she is agreeable to this. She reports that she did not sleep well overnight, the overnight pulse oximetry may not of been working? Otherwise no complaints. Objective Vitals: Temp: [97.7 ??F (36.5 ??C)-98.4 ??F (36.9 ??C)] 98.4 ??F (36.9 ??C) Pulse: [84-109] 97 Resp: [18] 18 BP: (142-189)/(75-92) 149/86 Intake/Output: Intake/Output Summary (Last 24 hours) at 06/17/2022 1426 Last data filed at 06/16/2022 2235 Gross per 24 hour Intake 850 ml Output 700 ml Net 150 ml Physical exam: General: Alert and oriented, no acute distress Neurologic: Awake, alert, and oriented X3, no apparent focal deficits Eye: EOMI, normal conjunctiva HENT: Normocephalic, atraumatic Neck: no carotid bruits, no JVD Lungs: Clear to auscultation, non-labored respiration Heart: Normal rate, regular rhythm, no murmur Abdomen: Soft, non-tender, non-distended, normal bowel sounds Musculoskeletal: Normal range of motion and strength, no tenderness or swelling Skin: Skin is warm, dry, no rashes or lesions Psychiatric: Cooperative, appropriate mood and affect Telemetry: Sinus rhythm Labs: Results for orders placed or performed during the hospital encounter of 06/10/22 (from the past 24 hour(s)) Cortisol Status: None Collection Time: 06/17/22 6:00 AM Result Value Ref Range Cortisol Level (mcg/dL) 1.0 mcg/dL Basic Metabolic Panel Status: Abnormal Collection Time: 06/17/22 6:01 AM Result Value Ref Range Sodium 135 (L) 136 - 146 meq/L Potassium 4.9 3.5 - 5.1 meq/L Chloride 107 102 - 112 meq/L CO2 20 (L) 21 - 32 meq/L Anion Gap 13 9 - 20 BUN 27 (H) 7 - 22 mg/dL Creatinine 0.79 0.55 - 1.02 mg/dL BUN/Creatinine 34 (H) 8 - 20 Glucose 91 74 - 106 mg/dL Calcium 10.1 8.4 - 10.1 mg/dL Osmolality Calc 274.8 eGFR (mL/min/1.73m2) >60 >=60 mL/min/1.73m2 Radiology: Radiology Results (last 3 days) No results found for the last 72 hours. Medications: Scheduled Meds: ??? aspirin 81 mg Oral Daily 81 mg at 06/17/22 0817 ??? atorvastatin 80 mg Oral Once ??? cetirizine 10 mg Oral Daily 10 mg at 06/17/22 08 ??? cholecalciferol 1,000 Units Oral Daily 1,000 Units at 06/17/22 08 ??? clopidogreL 75 mg Oral Daily 75 mg at 06/17/22 0820 ??? dilTIAZem 180 mg Oral Daily 180 mg at 06/17/22 0819 ??? docusate sodium 100 mg Oral BID 100 mg at 06/17/22 08 ??? enoxaparin 40 mg Subcutaneous Q24H CHRIS 40 mg at 06/17/22 1017 ??? fluticasone propionate 2 spray Each Nare BID 2 spray at 06/17/22 08 ??? folic acid 1,000 mcg Oral Daily 1,000 mcg at 06/17/22 08 ??? metoprolol tartrate 25 mg Oral BID 25 mg at 06/17/22 08 ??? multivitamin 1 tablet Oral Daily 1 tablet at 06/17/22 0820 ??? pantoprazole 40 mg Oral Daily 40 mg at 06/17/22 0820 ??? polyethylene glycol 3350 17 g Oral Daily 17 g at 06/16/22 0903 ??? pregabalin 150 mg Oral Every Night 150 mg at 06/16/22 2229 ??? Saccharomyces boulardii 250 mg Oral BID 250 mg at 06/17/22 0822 Continuous Infusions: PRN Meds: ??? acetaminophen ??? acetaminophen ??? dextrose ??? diclofenac ??? fluconazole ??? naloxone ??? ondansetron Or ??? ondansetron PF ??? oxyCODONE Assessment and Plan ACS/NSTEMI on 06/13 in s/o CAD s/p CABG Heparin drip/brillinta, CARD planning urgent cath today Trop max 2951, trending down Echo: mod LVH EF 55% mod tricuspid regurg PTCA with one stent 06/13, pt doing well Intolerant to brillinta, CARD changed to plavix ?? #Metabolic Encephalopathy, resolved: ??2/2 acute UTI, complicated by narcotic use and advancing age. IV fluids, antibiotics. Limit narcotics as able, continue to treat her chronic back pain. -at baseline per daughter 06/11 ?? #Complicated UTI, resolved: UA turbid, nitrite+ with 2+ bacteria and suprapubic tenderness. Not meeting sepsis criteria on admission. IV Rocephin for usual organisms, no history of recurrent UTIs or MDROs. IV fluids. -Ucx was not initiated with UA, plan to recheck UA after 5 days rocephin to ensure clearance ?? # L5/S1 disc herniation: Aware, scheduled for diskectomy with Dr Odonnell this Saturday. Resume home pain regimen PT/OT post-op, Resume home dose of lyrica. -06/12-->Left L5-S1 facetectomy with neuroforaminotomies discectomy for decompression of nerve root #paroxysmal Atrial fibrillation, CHADVASC 6 - need to talk with patient and family risk-benefit of apixaban at discharge - stop metoprolol - continue dilt to home dose - continue tele - optimize lytes - family req cards consult, in am ?? #Labile blood pressure: I discussed the patient's daughter, denies taking steroids at home. She denies any prior history of this. I am considering sensitivity to beta blockade, autonomic dysfunction,adrenal insufficiency as leading diagnosis. - Stop beta-shivam, as needed antihypertensive regimen - Bladder scan negative - Fluid bolus once - A.m. cortisol level 06/17 ---1?? - Repeat cortisol 06/18, ACTH, aldosterone - Follow-up TSH, free T4 #Psoriatic Arthritis: Controlled on MTX. # Immunocompromised: On MTX ??for psoriatic arthritis, takes on . Last dose was 05/31. On denosumab twice annually. Continue to hold here. Continue folic acid/vit D, MVI supplementation. #Diet: liberalize to regular #VTE Ppx: SQH #GI Ppx: pantoprazole #Code Status: full #Medical decision maker: Daughter, dpoa #Dispo: Follow heart rate blood pressure and decrease dose. Cardiology consult in AM. Optimize electrolytes. I updated the daughter 06/16. Not medically ready for discharge #MDM: High Signed: SIMIN UMANZOR APRN 06/17/2022 UPDATE: 1630: paged by RN patient c/o heartburn epigastric discomfort. I ordered EKG, Tn with repeat in 3h, alicia. UPDATE 1958: late night chart check --- checked Tn which resulted at 1942,, elevated at >700. This was NOT called to this provider or security checker. I personally called security checker and he is checking on the patient and notifying aircraft armorer and will f/up pending Tn. Cosigned by Amaris Jones MD at 06/18/2022 6:41 AM EDT * Simin Umanzor APRN - 06/16/2022 12:36 PM EDT Images from the original note were not included. HOSPITALIST PROGRESS NOTE Patient: Chen Merritt Date: 06/16/2022 Subjective Date of Service: 06/16/2022 I rounded with RN No nursing notes overnight I reviewed neurosurgery, PT OT notes. I note the patient is having episodes of dizziness. I spoke with the patient about this, tells me this is a new occurrence. She reports that her daughter is veryworried about this and does not want to leave the hospital until this is resolved. I discussed withher that that sound like a very appropriate plan and we will work on this. She reports that her legs still feel heavy and weak. She is concerned about her breathing overnight feels like she cannot breathe and is asking to check her oxygen, I have ordered overnight oximetry. I asked RN to obtain orthostatics, patient markedly hypotensive. I have ordered fluid bolus, discontinued beta-shivam at this time. I updated her daughter via phone. Objective Vitals: Temp: [97.3 ??F (36.3 ??C)-97.9 ??F (36.6 ??C)] 97.7 ??F (36.5 ??C) Pulse: [79-102] 84 Resp: [16-18] 16 BP: (74-173)/(47-96) 143/75 Intake/Output: Intake/Output Summary (Last 24 hours) at 06/16/2022 1741 Last data filed at 06/16/2022 0525 Gross per 24 hour Intake 720 ml Output 850 ml Net -130 ml Physical exam: General: Alert and oriented, no acute distress Neurologic: Awake, alert, and oriented X3, no apparent focal deficits Eye: EOMI, normal conjunctiva HENT: Normocephalic, atraumatic Neck: no carotid bruits, no JVD Lungs: Clear to auscultation, non-labored respiration Heart: Normal rate, regular rhythm, no murmur Abdomen: Soft, non-tender, non-distended, normal bowel sounds Musculoskeletal: Normal range of motion and strength, no tenderness or swelling Skin: Skin is warm, dry, no rashes or lesions Psychiatric: Cooperative, appropriate mood and affect Telemetry: Sinus rhythm Labs: Results for orders placed or performed during the hospital encounter of 06/10/22 (from the past 24 hour(s)) CBC with automated diff Status: Abnormal Collection Time: 06/16/22 5:42 AM Result Value Ref Range WBC 7.7 4.5 - 10.5 K/??L RBC 3.46 (L) 3.93 - 5.22 M/??L Hemoglobin 11.1 (L) 11.2 - 15.7 GM/DL Hematocrit 33.7 (L) 34.1 - 44.9 % MCV 97 (H) 79 - 95 fL MCH 32.1 25.6 - 32.2 pg MCHC 32.9 32.2 - 36.5 GM/DL RDW 14.6 11.7 - 14.9 % Platelets 260 163 - 369 K/CU MM MPV 10.8 9.4 - 12.4 fL % Neutros 61 34 - 71 % % Lymphs 24 19 - 53 % % Monos 12 (H) 3 - 9 % % Eos 2 (H) 0 - 1 % % Baso 0 0 - 2 % NRBC Absolute 0.00 0 - 0.12 K/ul # Neutros 4.64 1.56 - 6.13 K/??L # Lymphs 1.83 1.00 - 3.50 K/??L # Monos 0.92 0.16 - 1.00 K/??L # Eos 0.18 0.00 - 0.80 K/??L # Baso 0.03 0.00 - 0.20 K/??L Immature Granulocytes-Relative 1.00 (H) 0.00 - 0.60 % # IG 0.08 (H) 0.00 - 0.05 K/uL Basic Metabolic Panel Status: Abnormal Collection Time: 06/16/22 12:46 PM Result Value Ref Range Sodium 140 136 - 146 meq/L Potassium 4.1 3.5 - 5.1 meq/L Chloride 111 102 - 112 meq/L CO2 22 21 - 32 meq/L Anion Gap 11 9 - 20 BUN 26 (H) 7 - 22 mg/dL Creatinine 0.76 0.55 - 1.02 mg/dL BUN/Creatinine 34 (H) 8 - 20 Glucose 102 74 - 106 mg/dL Calcium 9.6 8.4 - 10.1 mg/dL Osmolality Calc 284.4 eGFR (mL/min/1.73m2) >60 >=60 mL/min/1.73m2 Radiology: Radiology Results (last 3 days) No results found for the last 72 hours. Medications: Scheduled Meds: ??? aspirin 81 mg Oral Daily 81 mg at 06/16/22903 ??? atorvastatin 80 mg Oral Once ??? cetirizine 10 mg Oral Daily 10 mg at 06/16/22907 ??? cholecalciferol 1,000 Units Oral Daily 1,000 Units at 06/16/22903 ??? clopidogreL 75 mg Oral Daily 75 mg at 06/16/22903 ??? dilTIAZem 180 mg Oral Daily 180 mg at 06/16/22902 ??? docusate sodium 100 mg Oral BID 100 mg at 06/16/22903 ??? doxycycline 100 mg Oral Q12H 100 mg at 06/16/22903 ??? fluticasone propionate 2 spray Each Nare BID 2 spray at 06/16/22902 ??? folic acid 1,000 mcg Oral Daily 1,000 mcg at 06/16/22903 ??? lactated ringers (LR) 1,000 mL Intravenous Once 1,000 mL at 06/16/22 1732 ??? multivitamin 1 tablet Oral Daily 1 tablet at 06/16/22 09 ??? pantoprazole 40 mg Oral Daily 40 mg at 06/16/22 09 ??? polyethylene glycol 3350 17 g Oral Daily 17 g at 06/16/22 0903 ??? pregabalin 150 mg Oral Every Night 150 mg at 06/15/22 2253 ??? Saccharomyces boulardii 250 mg Oral BID 250 mg at 06/16/22 09 Continuous Infusions: PRN Meds: ??? acetaminophen ??? acetaminophen ??? dextrose ??? diclofenac ??? fluconazole ??? naloxone ??? ondansetron Or ??? ondansetron PF ??? oxyCODONE Assessment and Plan ACS/NSTEMI on 06/13 in s/o CAD s/p CABG Heparin drip/brillinta, CARD planning urgent cath today Trop max 2951, trending down Echo: mod LVH EF 55% mod tricuspid regurg PTCA with one stent 06/13, pt doing well Intolerant to brillinta, CARD changed to plavix ?? #Metabolic Encephalopathy, resolved: ??2/2 acute UTI, complicated by narcotic use and advancing age. IV fluids, antibiotics. Limit narcotics as able, continue to treat her chronic back pain. -at baseline per daughter 06/11 ?? #Complicated UTI, resolved: UA turbid, nitrite+ with 2+ bacteria and suprapubic tenderness. Not meeting sepsis criteria on admission. IV Rocephin for usual organisms, no history of recurrent UTIs or MDROs. IV fluids. -Ucx was not initiated with UA, plan to recheck UA after 5 days rocephin to ensure clearance ?? # L5/S1 disc herniation: Aware, scheduled for diskectomy with Dr Odonnell this Saturday. Resume home pain regimen PT/OT post-op, Resume home dose of lyrica. -06/12-->Left L5-S1 facetectomy with neuroforaminotomies discectomy for decompression of nerve root -today is having no pain in her back or legs #paroxysmal Atrial fibrillation, CHADVASC 6 - need to talk with patient and family risk-benefit of apixaban at discharge - stop metoprolol - continue dilt to home dose - continue tele - optimize lytes - family req cards consult, in am ?? #Labile blood pressure - Stop beta-shivam, as needed antihypertensive regimen - Bladder scan once - Fluid bolus once - A.m. cortisol level #Psoriatic Arthritis: Controlled on MTX. # Immunocompromised: On MTX ??for psoriatic arthritis, takes on . Last dose was 05/31. On denosumab twice annually. Continue to hold here. Continue folic acid/vit D, MVI supplementation. #Diet: liberalize to regular #VTE Ppx: SQH #GI Ppx: pantoprazole #Code Status: full #Medical decision maker: Daughter, dpoa #Dispo: Follow heart rate blood pressure and decrease dose. Cardiology consult in AM. Optimize electrolytes. I updated the daughter 06/16. Not medically ready for discharge #MDM: High Signed: SIMIN UMANZOR APRN 06/16/2022 Cosigned by Amaris Jones MD at 06/18/2022 6:41 AM EDT * Taya Ramos PA-C - 06/15/2022 3:04 PM EDT Images from the original note were not included. NEUROSURGERY PROGRESS NOTE Subjective Doing well. Some pain in left hip but overall pain well controlled. Physical Exam Blood pressure 126/70, pulse 85, temperature 97.5 ??F (36.4 ??C), resp. rate 18, height 1.6 m (5' 2.99 ), weight 68 kg (150 lb), SpO2 93 %. AAOx3. Incision clean, dry, and intact. Labs Results for orders placed or performed during the hospital encounter of 06/10/22 (from the past 24 hour(s)) CBC with automated diff Status: Abnormal Collection Time: 06/15/22 6:47 AM Result Value Ref Range WBC 7.4 4.5 - 10.5 K/??L RBC 3.66 (L) 3.93 - 5.22 M/??L Hemoglobin 11.8 11.2 - 15.7 GM/DL Hematocrit 34.8 34.1 - 44.9 % MCV 95 79 - 95 fL MCH 32.2 25.6 - 32.2 pg MCHC 33.9 32.2 - 36.5 GM/DL RDW 14.6 11.7 - 14.9 % Platelets 267 163 - 369 K/CU MM MPV 10.9 9.4 - 12.4 fL % Neutros 63 34 - 71 % % Lymphs 23 19 - 53 % % Monos 12 (H) 3 - 9 % % Eos 1 0 - 1 % % Baso 0 0 - 2 % NRBC Absolute 0.00 0 - 0.12 K/ul # Neutros 4.67 1.56 - 6.13 K/??L # Lymphs 1.68 1.00 - 3.50 K/??L # Monos 0.91 0.16 - 1.00 K/??L # Eos 0.05 0.00 - 0.80 K/??L # Baso 0.02 0.00 - 0.20 K/??L Immature Granulocytes-Relative 0.80 (H) 0.00 - 0.60 % # IG 0.06 (H) 0.00 - 0.05 K/uL Urinalysis, Reflex Microscopic and Culture If Indicated Status: None Collection Time: 06/15/22 11:19 AM Result Value Ref Range Color, UA Light Yellow Clarity, UA Clear Clear Specific [place], UA 1.012 1.005 - 1.030 pH, UA 7.0 6.0 - 8.0 Leukocytes, UA Negative Negative Nitrite, UA Negative Negative Protein, UA Negative Negative Glucose, UA Normal Normal Ketones, UA Negative Negative Bilirubin, UA Negative Negative Blood, UA Negative Negative Urobilinogen, UA Normal Normal Specimen Source Urine, Clean Catch CARDIAC CATH - LEFT HEART CATH W/ POSSIBLE INTERVENTION Cardiac Diagnostic + PCI Report Demographics Patient Name JOHN Mallory Date of 1940 Patient # [id number] Medical Record # Physician ARSLAN PORRAS DO Date of Study 06/13/2022 Referring RACQUEL PENA Interventional Physician physician Diagnostic Cath Status: Urgent Interventional Cath Status: Urgent Procedure Procedure Type Diagnostic procedure: LHC/Coronaries w/wo LV gram, SUMMER Angiogram, SVG Angiogram PCI procedure: Stent - ANGELICA, Intravascular Lithotripsy Indications: Angina and Abnormal ECG. The procedure was explained in detail to the patient. Risks, complications and alternative treatments were reviewed. Written consent was obtained. Conclusions Procedure Description Procedure performed 1. Ultrasound interrogation of right common femoral artery with access obtained under ultrasound guidance 2. Selective left and right coronary angiography 3. Angiography of vein graft stump 1 4. Angiography of vein graft stump #2 5. Angiography of vein graft stump #3. 6. Angiography of the RIVERA to the LAD 7. LVEDP measurement 8. Successful balloon angioplasty and stenting of subtotal occlusion of proximal circumflex heavily calcified lesion 99% reduced to 10% -predilated with shockwave balloon 3.5 and treated with Kiran 3.5 x 15 drug-eluting stent which was postdilated with a 4.0 noncompliant balloon atmospheres 9. Iliofemoral angiography with Angio-Seal to the right common femoral artery Indications Non-ST elevation ME Procedure Patient was brought to the cardiac Production Team Leader on arrival the patient was hemodynamically stable. The right groin was draped and prepped in sterile fashion 2% lidocaine was used anesthetize groin ultrasound interrogation was performed. Common femoral artery is normal. Bifurcational. Pulsatile flow was noted. Under ultrasound guidance access obtained with a 6 [place] sheath introduced accordingly. Using a standard set of diagnostic catheters selective left and right coronary angiography was performed. In addition using the JR catheter angiography of vein graft stump 1 2 and 3 was performed. Using the same diagnostic catheter RIVERA angiography to the LAD was performed. Review of anatomy revealed a subtotal occlusion of the proximal portion of the circumflex. The lesion itself is very fibrotic and densely calcified. It was felt this was probably the culprit behind her ACS picture. Decision was to proceed with intervention. The patient received heparin boluses with serial CT monitoring throughout the procedure. In addition the patient is on Brilinta therapy. JL 4 guiding catheter was introduced into the ascending aorta. Left main was engaged. Through this catheter was advanced a run-through wire and positioned in the distal circumflex OM branch. Over the wire was advanced a 2.5 balloon. Predilation of the lesion was performed. A second balloon shockwave 3.5 was introduced. 60 treatments was provided to the lesion. Repeat angiography showed significant improvement. Decision was to proceed with stenting. An Kiran 3.5 x 15 drug-eluting stent was introduced accordingly. The stent was deployed at optimal pressures. There was some degree of underexpansion of the stent in the proximal portion due to the densely fibrotic nature of the lesion. I postdilated the proximal portion of the stent a very aggressively with a 3.5 noncompliant balloon. I then followed with a 4.0 noncompliant balloon to high atmospheres. Repeat angiography showed a better result with less than 10% residual. I thought this point we had a good result with brisk flow through the vessel. I thought that at this point it would be best to stop said procedure. The patient was hemodynamically stable and comfortable. Decision was to terminate as stated. Interventional code was removed. Iliofemoral angiography was performed. Angio-Seal was successfully deployed 6 [place] to the right common femoral artery. Of note the procedure was performed on the cover of heparin with serial CT monitoring throughout the procedure. Procedure Summary Findings LVEDP of 17 Coronary anatomy Left main mild 20 to 30% ostial tapering. Bifurcates properly to LAD and circumflex. LAD-LAD is occluded after the takeoff of septal 1 branch. No reconstitution of the distal LAD notable via left to left collaterals Circumflex-the circumflex leads into a large OM branch which supplies a very large distribution of the lateral wall. Proximal portion of the circumflex reveals a heavily calcified boulder like lesion of around 90%. There is SHEELA-3 flow noted through the circumflex. In the midportion of said circumflex there is about a 50% lesion notable. RCA-the RCA is a very tortuous vessel. It provides a PDA and a moderate-sized PL system. There is an eccentric rat-bite lesion of around 75% just before the takeoff of the PDA. SHEELA-3 flow was noted through that the RCA distribution. Vein graft 1 2 and 3 are occluded as demonstrated by angiography RIVERA to the LAD-the RIVERA is intact. The anastomosis distally is intact. No significant disease notable. SHEELA-3 flow is notable. Postintervention angiogram of the circumflex revealed a well deployed stent with at most 10% residual within the proximal portion. This was evident after aggressive post dilation and was felt to be residual that was adequate considering the severely calcified and fibrotic nature of the lesion. Recommendations Conclusions Non-ST elevation ME as described above Occlusion of all 3 vein grafts Patency of RIVERA to the LAD Culprit lesion is felt to be subtotally occlusive proximal circumflex lesion as described above Residual intermediate level lesion in the RCA as described above Treatment of said high-grade circumflex lesion using drug-eluting stent as described above Plan Patient will be maintained on aggressive antiplatelet therapy. We will see if the patient clinically does. We discussed the findings at length with the patient's family and they are appreciative of care. Angiographic Findings Coronary Arteries and Lesion Findings LCx: Lesion on Mid CX: Devices used - Emerge Balloon MR 2.5x15. 2 inflation(s) to a max pressure of: 15 basilio. - Powell [place] RX 3.5x15 Stent. 1 inflation(s) to a max pressure of: 14 basilio. - NC Emerge MR Balloon 3.5 x 6. 1 inflation(s) to a max pressure of: 15 basilio. - NC Emerge MR Balloon 4.0 x 6. 1 inflation(s) to a max pressure of: 13 basilio. Procedure Data Procedure Date Date: 06/13/2022Start: 10:54End: 12:36 Entry Locations - Retrograde Percutaneous access was performed through the Right Femoral artery (Primary location). A 6 Fr sheath was inserted. Hemostasis was successfully obtained using Angioseal. Procedure Medications - Oxygen NC 2 l/min. - Versed I.V. 1 mg. - Fentanyl I.V. 50 mcg. - Versed I.V. 0.5 mg. - Fentanyl I.V. 25 mcg. - Versed I.V. 0.5 mg. - Fentanyl I.V. 25 mcg. - Heparin I.V. bolus 4000 units. - Nitroglycerin I.A. 200 mcg. - Versed I.V. 1 mg. - Fentanyl I.V. 25 mcg. - Heparin I.V. bolus 1000 units. - Normal Saline I.V. bolus 250 ml. - Normal Saline I.V. 100 ml/hr. Diagnostic Catheters - A6F Expo FL4 Catheterwas used for: left coronary angiography. - A6F Expo FR4 Catheterwas used for: pressure measurement. - A6F Expo FR4 Catheterwas used for: right coronary angiography. - A6F Expo FR4 Catheterwas used for:SVG. - A6F Expo FR4 Catheterwas used for:RIVERA. - A6F Expo 145 Angled Pigtail Catheterwas used for:Was not used. Contrast Material - [id number] ml Fluoroscopy Time: Total: 18:24 minutes. Fluoroscopy Dose: Total: 1293 mGy. Medical History Allergies - Bactrim. - Morphine:(claritin). - Sulfa. Risk Factors The patient risk factors include:prior CABG;treated hypercholesterolemia, treated hypertension, last creatinine: 0.8 mg/dl and creatinine clearance: 58.24 ml/min. Admission Data Hemodynamics Condition: Baseline O2 Consumption: Estimated: 211.25Heart Rate: 81 bpm Pressures (mmHg) +-----+ + !Site !Pressure ! +-----+ + !AO !163/163 (106) ! +-----+ + !LV !165/11 ,15 ! +-----+ + !LV !158/9 ,156 ! +-----+ + !AO !175/78 (121) ! +-----+ + !LV !180/10 ,11 ! +-----+ + !AO !179/90 (130) ! +-----+ + Valve Gradients and Areas + +---------+---------+---------+ +---------+ + !Valve !Peak !Mean !Area !Index !Flow !Source ! + +---------+---------+---------+ +---------+ + !Aortic !5 !0 ! ! ! ! ! + +---------+---------+---------+ +---------+ + !Aortic !5 !0 ! ! ! ! ! + +---------+---------+---------+ +---------+ + Shunts Oxygen Values O2 Consumption 211.25 Signatures XR chest AP portable Narrative: PORTABLE CHEST HISTORY: Shortness of breath. COMPARISON: June 10, 2022. FINDINGS: Status post median sternotomy. The heart is mildly enlarged in size. There is pulmonary vascular congestion. The lungs are clear. There is no pneumothorax. Impression: Pulmonary vascular congestion with mild cardiomegaly. Images reviewed, interpreted, and dictated by Dr. Carlos Alberto Hu. Transcribed by Marisel Sandoval PA-C. Assessment POD 3 left L5-S1 facetectomy, foraminotomy, and discectomy Cardiology following for NSTEMI Plan Continue PT/OT. Ok for discharge from NS standpoint. Follow up in [address] Odonnell. Cosigned by Edith Odonnell MD at 06/19/2022 11:18 AM EDT * Dorinda Graham RN - 06/15/2022 2:28 PM EDT Discharge Plan Progress Note CM met with patient at bedside, patient now agreeable to rehab at [facility] (hx of previous stay). CM will send referral this date via Lobo Graham RN * Robby Machuca PA-C - 06/15/2022 1:58 PM EDT Images from the original note were not included. Hospital Medicine Progress Note Chen Merritt is a 81 y.o. female patient with . Subjective: Date of Service: 06/15/2022 Patient seen and examined at bedside.daughter at bedside. States swelling is improving, Her back pain is gone currently. She sat up in bed with PT and got dizzy, tachycardic and hypotensive this morning. Objective: Temp: [97.3 ??F (36.3 ??C)-98.2 ??F (36.8 ??C)] 97.7 ??F (36.5 ??C) Pulse: [86-113] 113 Resp: [18-19] 18 BP: (116-184)/(58-105) 130/58 Physical Exam Constitutional: General: She is not in acute distress. Comments: Well appearing elderly woman HENT: Head: Normocephalic. Mouth/Throat: Mouth: Mucous membranes are moist. Eyes: Conjunctiva/sclera: Conjunctivae normal. Cardiovascular: Rate and Rhythm: Normal rate and regular rhythm. Pulmonary: Effort: Pulmonary effort is normal. Breath sounds: Normal breath sounds. Musculoskeletal: Cervical back: Neck supple. Comments: Improving edema Skin: Findings: No rash. Neurological: Mental Status: She is alert and oriented to person, place, and time. Psychiatric: Thought Content: Thought content normal. Labs: Results for orders placed or performed during the hospital encounter of 06/10/22 (from the past 24 hour(s)) CBC with automated diff Status: Abnormal Collection Time: 06/15/22 6:47 AM Result Value Ref Range WBC 7.4 4.5 - 10.5 K/??L RBC 3.66 (L) 3.93 - 5.22 M/??L Hemoglobin 11.8 11.2 - 15.7 GM/DL Hematocrit 34.8 34.1 - 44.9 % MCV 95 79 - 95 fL MCH 32.2 25.6 - 32.2 pg MCHC 33.9 32.2 - 36.5 GM/DL RDW 14.6 11.7 - 14.9 % Platelets 267 163 - 369 K/CU MM MPV 10.9 9.4 - 12.4 fL % Neutros 63 34 - 71 % % Lymphs 23 19 - 53 % % Monos 12 (H) 3 - 9 % % Eos 1 0 - 1 % % Baso 0 0 - 2 % NRBC Absolute 0.00 0 - 0.12 K/ul # Neutros 4.67 1.56 - 6.13 K/??L # Lymphs 1.68 1.00 - 3.50 K/??L # Monos 0.91 0.16 - 1.00 K/??L # Eos 0.05 0.00 - 0.80 K/??L # Baso 0.02 0.00 - 0.20 K/??L Immature Granulocytes-Relative 0.80 (H) 0.00 - 0.60 % # IG 0.06 (H) 0.00 - 0.05 K/uL Urinalysis, Reflex Microscopic and Culture If Indicated Status: None Collection Time: 06/15/22 11:19 AM Result Value Ref Range Color, UA Light Yellow Clarity, UA Clear Clear Specific [place], UA 1.012 1.005 - 1.030 pH, UA 7.0 6.0 - 8.0 Leukocytes, UA Negative Negative Nitrite, UA Negative Negative Protein, UA Negative Negative Glucose, UA Normal Normal Ketones, UA Negative Negative Bilirubin, UA Negative Negative Blood, UA Negative Negative Urobilinogen, UA Normal Normal Specimen Source Urine, Clean Catch Assessment and Plan: ACS/NSTEMI on 06/13 Heparin drip/brillinta, CARD planning urgent cath today Trop max 2951, trending down Echo: mod LVH EF 55% mod tricuspid regurg PTCA with one stent 06/13, pt doing well Intolerant to brillinta, CARD changed to plavix 1. Metabolic Encephalopathy: 2/2 acute UTI, complicated by narcotic use and advancing age. IV fluids, antibiotics. Limit narcotics as able, continue to treat her chronic back pain. -at baseline per daughter 06/11 ?? 2. Acute UTI: UA turbid, nitrite+ with 2+ bacteria and suprapubic tenderness. Not meeting sepsis criteria on admission. IV Rocephin for usual organisms, no history of recurrent UTIs or MDROs. IV fluids. -Ucx was not initiated with UA, plan to recheck UA after 5 days rocephin to ensure clearance -recheck UA is clear 3. L5/S1 disc herniation: Aware, scheduled for diskectomy with Dr Odonnell this Saturday. Resume homepain regimen PT/OT post-op, Resume home dose of lyrica. -06/12-->Left L5-S1 facetectomy with neuroforaminotomies discectomy for decompression of nerve root -today is having no pain in her back or legs 4. CAD: Mildly elevated troponin here, not concerning for ACS. EKG looks fine, no chest pain. Remote CABGx4 (2008). Resume home meds. Hold aspirin for now given OR plans -pre-anesthesia ECHO -see above NSTEMI early 06/13 ?? 5. HTN: Resume home meds. Hydralazine PRN ?? 6. Psoriatic Arthritis: Controlled on MTX. ??7. Immunocompromised: On MTX for psoriatic arthritis, takes on . Last dose was 05/31. On denosumab twice annually. Continue to hold here. Continue folic acid/vit D, MVI supplementation. ? DVT Prophylaxis: Lovenox Code Status: Full Code. Pt desires everything done in the event of cardiopulmonary arrest. Surrogate Decision Maker: DaughterAlma ?? Pt does not have advance directive and does not wish to make one right now. ?? Ongoing care: She reports significant improvement In back pain since surgery. She sat up with PT today and got very dizzy, Tachycardic in the 130s and hypotensive per daughter and nurse. Encouraged PO fluids. Daughter states this has been a problem for her in the past but she didn't have trouble sitting up yesterday. Recheck UA is benign stop abx. Mentation at baseline per daughter. Discussed rehab at [facility] and she is agreeable NSOC: SNF When: TBD Signed: ROBBY MCAHUCA PA-C 06/15/2022 Cosigned by Amaris Jones MD at 06/18/2022 6:40 AM EDT * Miri Ortiz Ailyn, OTR/L - 06/15/2022 11:38 AM EDT Images from the original note were not included. Inpatient Occupational Therapy Treatment Note Patient Name: Chen Merritt Date of : 1940 Date of Treatment: 06/15/22 Start Time: 1111 Stop Time: 1137 Session Duration: 26 minutes This patient is a 81 y.o. female admitted on 06/10/2022 with Weakness [R53.1] Acute respiratory failure with hypoxia (HCC) [J96.01] Urinary tract infection without hematuria, site unspecified [N39.0] Altered mental status, unspecified altered mental status type [R41.82] Midline low back pain without sciatica, unspecified chronicity [M54.50]. Past Medical History: Diagnosis Date ??? Arthritis ??? Coronary artery disease ??? Hyperlipidemia ??? Hypertension ??? Lumbar spondylolysis ??? ME (myocardial infarction) (HCC) ??? Osteopenia ??? Psoriatic arthritis (HCC) ??? Psoriatic arthritis (HCC) Past Surgical History: Procedure Laterality Date ??? CHOLECYSTECTOMY ??? HYSTERECTOMY ??? LAMINECTOMY,LUMBAR Left 06/12/2022 Procedure: (LT L5-S1 FACETECTOMY AND NEUROFORAMINOTOMY; Surgeon: Edith Odonnell MD; Location: [facility]; Service: Neurosurgery; Laterality: Left; [place] 0800,1.5HRS(R) ??? LAMINECTOMY,LUMBAR W/FUSION N/A 12/14/2021 Procedure: L3-5, L5-S1 FUSION AND DECOMPRESSION AUGMENTATION WITH ZIEHM; Surgeon: Edith Odonnell MD; Location: [facility]; Service: Neurosurgery; Laterality: N/A; [place] 0830. 3 HRS (R). PASS. AIRO. PRE CERT STARTED, ??? open heart 2009 4 bypass General Visit type: Treatment Approved by: Nurse Gustafson Patient disposition upon entry: Supine in bed, Call light/pull cord in reach, All needs met and within reach, Nursing aware/notified, Head of bed >30 degrees, Side rails up, Visitor/family present Co-treated by: PT Precautions Weightbearing status: No restrictions Precautions: Spinal precautions Isolation precautions: Standard Subjective Subjective: Pt agreeable Pain No-patient has no complaints of pain Cognition Cognition: Overall cognitive status: WFL Objective Vitals Pre-intervention vitals Blood pressure: 126/80 mmHg During intervention vitals: Heart rate: 133 beats per minute Blood pressure: 98/64 mmHg SpO2: 97% O2 (L/min): Room air Post-intervention vitals Heart rate: 118 beats per minute Blood pressure: 135/81 mmHg SpO2: 85% O2 (L/min): Room air Bed Mobility Rolling: Moderate assistance, 1 person assist, Use of bed rails Scooting: Moderate assistance, 1 person assist Supine to sit: Moderate assistance, 1 person assist, Head of bed flat Sit to supine: Moderate assistance, 1 person assist, Head of bed flat ADLs Lower body dressing:Maximal Assistance, Sitting edge of bed Activity Tolerance Pt limited with activity/intervention due to dizziness, hypotension and tachycardia Treatment Pt and RN okay'd OT tx at this time. Pt tolerated OT tx fair, further mobility limited by orthostatic hypotension and tachycardia with activity. Pt supine in bed upon OT arrival. Pt rolled to right and transferred to EOB with Mod A. Pt required Mod A to scoot to EOB. Pt required Max A to don socks.Pt c/o dizziness and tachycardia, blood pressure 98/64 mmHg with heart rate 133bpm. Further mobility deferred and pt returned to supine with Mod A. Pt required Max Ax2 to scoot to HOB. Pt left supinein bed with call light within reach. Assessment Assessment Pt continues to present with decreased independence with with ADLs and fxnl mobility and would benefit from skilled OT services to improve fxnl status. Plan Recommendations Discharge recommendations: Patient would benefit from 3 hours of intensive multidisciplinary therapy per day to maximize functional outcomes and address functional limitations to return to highest level of functioning. DME recommendations: Patient has no DME/adaptive equipment discharge needs at this time. Treatment Plan: Continue OT POC OT Frequency/Duration: 5x/week for 14 days Goals Goals Lower body dressing: Pt will complete lower body dressing with modified independence using pilot control operator helper,long handled shoehorn, sock aid. Bed mobility: Pt will complete supine to sit with modified independence supervision using head of bed elevated, use of bed rails. Functional transfers: Pt will complete toilet transfer with modified independence using rolling walker. Progress towards goals: progressing Goals were discussed with patient Education Patient educated on patient's plan of care and following, they were able to verbalize understanding. Patient Disposition Upon Leaving Supine in bed, Call Light/Pull Cord in reach, All needs met and within reach, Nursing aware/notified, HOB >30 degrees, Side rails up, Visitor/Family present If this patient discharges prior to next therapy session, this note serves as the patient's discharge summary. Electronically signed by ADILENE Magaña/Tricia - 06/15/2022 - 3:58 PM EDT * Sarahi Parra, PT - 06/15/2022 11:12 AM EDT Images from the original note were not included. Inpatient Physical Therapy Initial Evaluation Patient Name: Chen Merritt Date of : 1940 Date of Evaluation: 06/15/22 Start Time 1112 Stop Time 1138 Session Duration 26 minutes Total time: 12 minutes spent including nursing collaboration, thorough chart and systems review, and clinical reasoning = 38 total minutes preparing for and performing PT evaluation Pt is a 81 y.o. female admitted on 06/10/2022 with Weakness [R53.1] Acute respiratory failure with hypoxia (HCC) [J96.01] Urinary tract infection without hematuria, site unspecified [N39.0] Altered mental status, unspecified altered mental status type [R41.82] Midline low back pain without sciatica, unspecified chronicity [M54.50]. Past Medical History: Diagnosis Date ??? Arthritis ??? Coronary artery disease ??? Hyperlipidemia ??? Hypertension ??? Lumbar spondylolysis ??? ME (myocardial infarction) (HCC) ??? Osteopenia ??? Psoriatic arthritis (HCC) ??? Psoriatic arthritis (HCC) Past Surgical History: Procedure Laterality Date ??? CHOLECYSTECTOMY ??? HYSTERECTOMY ??? LAMINECTOMY,LUMBAR Left 06/12/2022 Procedure: (LT L5-S1 FACETECTOMY AND NEUROFORAMINOTOMY; Surgeon: Edith Odonnell MD; Location: [facility]; Service: Neurosurgery; Laterality: Left; [place] 0800,1.5HRS(R) ??? LAMINECTOMY,LUMBAR W/FUSION N/A 12/14/2021 Procedure: L3-5, L5-S1 FUSION AND DECOMPRESSION AUGMENTATION WITH ZIEHM; Surgeon: Edith Odonnell MD; Location: [facility] OR; Service: Neurosurgery; Laterality: N/A; [place] 0830. 3 HRS (R). PASS. AIRO. PRE CERT STARTED, ??? open heart 2008 4 bypass General Visit type: Initial Evaluation Approved by: Nurse Gustafson Patient Disposition Upon Entry: Supine in bed, Call Light/Pull Cord in reach, HOB >30 degrees, Visitor/Family present Co-treated by: OT Precautions Weight-Bearing Status: No Restrictions Precautions: Spinal Precautions Isolation Precautions: Standard Lines, tubes, drains, airway: peripheral IV, nasal cannula , telemetry, blood pressure cuff Subjective Subjective: Patient agreeable to physical therapy evaluation and treatment. Pain No - Patient not reporting pain at this time Cognition Overall cognitive status: WFL Home Living Lives with: Alone, Daughter, Comment: Daughter lives upstairs Home Type: House Home Layout: Two level Stairs to enter: 1 step(s) Stairs inside home: Comment: Pt able to live on first floor Home Equipment: Rolling walker, Rollator, Single point cane, Hospital bed, BSC, Shower chair Functional Mobility PLOF: Patient reports being independent with all functional mobility prior to onset., Comment: Up until approximately one month ago and pt needing assistance Activities of Daily Living PLOF: Patient reports being independent with all ADL's prior to onset. Objective Vitals Vitals Supine Sitting Standing HR 119 bpm 133 bpm bpm BP 126/80 mmHg 98/64 mmHg mmHg Basic Strength Assessment Not tested due to Pt dizzy and tachycardic. 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 Functional Mobility Bed Mobility Rolling Left: moderate assistance Rolling Right: moderate assistance, 1-person assist Supine to Sit: moderate assistance, 1-person assist Sit to Supine: moderate assistance, 1-person assist Transfers Not tested due to medical condition or safety Gait Not safe to attempt due to medical condition or safety Stair Management Not safe to attempt due to medical condition or safety Wheelchair Mobility Not assessed, patient ambulatory Balance Static sitting balance Good Activity Tolerance Pt limited with activity/intervention due to dizziness, lightheadedness and tachycardia Treatment Pt agrees to attempt EOB; states she feels good. No c/o of pain and edema has improved. Rolling to right and supine to sit, modA x 1. Pt immediately feeling dizzy and states my heart is beating sofast. Pt became tachycardic (133bpm) and her blood pressure dropped (see above values). Pt EOB 4-5mins but continued to feel poorly and returned supine, modA x 1-2. Positioned with LE's elevated and BP taken in supine, 135/81mmHg. 02 sats in supine, 85%; placed nasal cannula back on patient (1 liter) and 02 sats went up to 95%. Assessment Pt did not tolerate activity; becoming dizzy, tachycardic and SOB. Pt will benefit from skilled PT while in acute care but is currently not able to tolerate much activity beyond sitting EOB. Pt has had recent low back surgery with subsequent myocardial infarction. Problems: Decreased functional mobility, Decreased gait tolerance, Decreased strength, Decreased activity tolerance, Edema, Sensory deficits Rehab potential: Fair Plan Treatment Plan: Therapeutic Exercise, Therapeutic Activity, Gait Training, Neuromuscular Re-education, Transfer Training, Strengthening, Patient/Family/Caregiver Education, DME Recommendations, Co-Treat with OT PT Frequency/Duration: 5x/week for 14 days Recommendations Discharge recommendations: Discharge recommendations pending progression of acute hospital stay secondary to the patient's medical status DME recommendations: Patient has no DME/adaptive equipment discharge needs at this time. Goals Supine to/from sit: supervision Sit to/from stand: Tyson, Rwx Gait: 50ft, Rwx, Tyson Transfer: Tyson, Rwx Target Date: 06/29/2022 Goals were discussed with patient and family Education Patient educated on plan of care and following, they were able to verbalize understanding. No further questions or concerns stated. Patient Disposition Upon Leaving Supine in bed, Call Light/Pull Cord in reach, All needs met and within reach, HOB >30 degrees, Side rails up, Visitor/Family present If this patient discharges prior to next therapy session, this note serves as the patient's discharge summary. Electronically signed by Sarahi Parra, PT - 06/15/2022 - 12:01 PM EDT * Taya Ramos PA-C - 06/14/2022 5:23 PM EDT Images from the original note were not included. NEUROSURGERY PROGRESS NOTE Subjective Back pain and leg pain well controlled. Has had edema in arms and legs, but improving. Physical Exam Blood pressure 116/67, pulse 87, temperature 97.4 ??F (36.3 ??C), temperature source Oral, resp. rate 18, height 1.6 m (5' 2.99 ), weight 68 kg (150 lb), SpO2 95 %. AAOx3. Sitting up in bed in NAD. Incision clean, dry, and intact. Labs Results for orders placed or performed during the hospital encounter of 06/10/22 (from the past 24 hour(s)) Basic Metabolic Panel Status: Abnormal Collection Time: 06/14/22 5:27 AM Result Value Ref Range Sodium 139 136 - 146 meq/L Potassium 4.1 3.5 - 5.1 meq/L Chloride 110 102 - 112 meq/L CO2 18 (L) 21 - 32 meq/L Anion Gap 15 9 - 20 BUN 19 7 - 22 mg/dL Creatinine 0.67 0.55 - 1.02 mg/dL BUN/Creatinine 28 (H) 8 - 20 Glucose 97 74 - 106 mg/dL Calcium 9.3 8.4 - 10.1 mg/dL Osmolality Calc 279.7 eGFR (mL/min/1.73m2) >60 >=60 mL/min/1.73m2 CBC with automated diff Status: Abnormal Collection Time: 06/14/22 5:27 AM Result Value Ref Range WBC 8.7 4.5 - 10.5 K/??L RBC 3.31 (L) 3.93 - 5.22 M/??L Hemoglobin 10.6 (L) 11.2 - 15.7 GM/DL Hematocrit 31.8 (L) 34.1 - 44.9 % MCV 96 (H) 79 - 95 fL MCH 32.0 25.6 - 32.2 pg MCHC 33.3 32.2 - 36.5 GM/DL RDW 14.4 11.7 - 14.9 % Platelets 233 163 - 369 K/CU MM MPV 10.7 9.4 - 12.4 fL % Neutros 74 (H) 34 - 71 % % Lymphs 14 (L) 19 - 53 % % Monos 11 (H) 3 - 9 % % Eos 0 0 - 1 % % Baso 0 0 - 2 % NRBC Absolute 0.00 0 - 0.12 K/ul # Neutros 6.40 (H) 1.56 - 6.13 K/??L # Lymphs 1.25 1.00 - 3.50 K/??L # Monos 0.97 0.16 - 1.00 K/??L # Eos 0.02 0.00 - 0.80 K/??L # Baso 0.01 0.00 - 0.20 K/??L Immature Granulocytes-Relative 0.50 0.00 - 0.60 % # IG 0.04 0.00 - 0.05 K/uL PROBNP Status: Abnormal Collection Time: 06/14/22 5:27 AM Result Value Ref Range ProBNP (pg/mL) 14,793 (H) 0 - 450 pg/mL ECG 12 lead Status: None (In process) Collection Time: 06/14/22 8:17 AM Result Value Ref Range VENTRICULAR RATE EKG/MIN 83 BPM ATRIAL RATE (MCT) 83 BPM AR Interval 156 ms QRS-INTERVAL (MSEC) 94 ms QT Interval 410 ms QTC Interval 481 ms P [employer] 50 degrees R AXIS (MCT) -3 degrees T Wave [employer] 62 degrees [place] Diagnosis Normal sinus rhythm Incomplete right bundle branch block Nonspecific ST abnormality Abnormal ECG When compared with ECG of 13-JUN-2022 14:26, Incomplete right bundle branch block is now present CARDIAC CATH - LEFT HEART CATH W/ POSSIBLE INTERVENTION Cardiac Diagnostic + PCI Report Demographics Patient Name JOHN Mallory Date of 1940 Patient # [id number] Medical Record # Physician ARSLAN PORRAS DO Date of Study 06/13/2022 Referring RACQUEL PENA Interventional Physician physician Diagnostic Cath Status: Urgent Interventional Cath Status: Urgent Procedure Procedure Type Diagnostic procedure: LHC/Coronaries w/wo LV gram, SUMMER Angiogram, SVG Angiogram PCI procedure: Stent - ANGELICA, Intravascular Lithotripsy Indications: Angina and Abnormal ECG. The procedure was explained in detail to the patient. Risks, complications and alternative treatments were reviewed. Written consent was obtained. Conclusions Procedure Description Procedure performed 1. Ultrasound interrogation of right common femoral artery with access obtained under ultrasound guidance 2. Selective left and right coronary angiography 3. Angiography of vein graft stump 1 4. Angiography of vein graft stump #2 5. Angiography of vein graft stump #3. 6. Angiography of the RIVERA to the LAD 7. LVEDP measurement 8. Successful balloon angioplasty and stenting of subtotal occlusion of proximal circumflex heavily calcified lesion 99% reduced to 10% -predilated with shockwave balloon 3.5 and treated with Kiran 3.5 x 15 drug-eluting stent which was postdilated with a 4.0 noncompliant balloon atmospheres 9. Iliofemoral angiography with Angio-Seal to the right common femoral artery Indications Non-ST elevation ME Procedure Patient was brought to the cardiac Production Team Leader on arrival the patient was hemodynamically stable. The right groin was draped and prepped in sterile fashion 2% lidocaine was used anesthetize groin ultrasound interrogation was performed. Common femoral artery is normal. Bifurcational. Pulsatile flow was noted. Under ultrasound guidance access obtained with a 6 [place] sheath introduced accordingly. Using a standard set of diagnostic catheters selective left and right coronary angiography was performed. In addition using the JR catheter angiography of vein graft stump 1 2 and 3 was performed. Using the same diagnostic catheter RIVERA angiography to the LAD was performed. Review of anatomy revealed a subtotal occlusion of the proximal portion of the circumflex. The lesion itself is very fibrotic and densely calcified. It was felt this was probably the culprit behind her ACS picture. Decision was to proceed with intervention. The patient received heparin boluses with serial CT monitoring throughout the procedure. In addition the patient is on Brilinta therapy. JL 4 guiding catheter was introduced into the ascending aorta. Left main was engaged. Through this catheter was advanced a run-through wire and positioned in the distal circumflex OM branch. Over the wire was advanced a 2.5 balloon. Predilation of the lesion was performed. A second balloon shockwave 3.5 was introduced. 60 treatments was provided to the lesion. Repeat angiography showed significant improvement. Decision was to proceed with stenting. An Powell 3.5 x 15 drug-eluting stent was introduced accordingly. The stent was deployed at optimal pressures. There was some degree of underexpansion of the stent in the proximal portion due to the densely fibrotic nature of the lesion. I postdilated the proximal portion of the stent a very aggressively with a 3.5 noncompliant balloon. I then followed with a 4.0 noncompliant balloon to high atmospheres. Repeat angiography showed a better result with less than 10% residual. I thought this point we had a good result with brisk flow through the vessel. I thought that at this point it would be best to stop said procedure. The patient was hemodynamically stable and comfortable. Decision was to terminate as stated. Interventional code was removed. Iliofemoral angiography was performed. Angio-Seal was successfully deployed 6 [place] to the right common femoral artery. Of note the procedure was performed on the cover of heparin with serial CT monitoring throughout the procedure. Procedure Summary Findings LVEDP of 17 Coronary anatomy Left main mild 20 to 30% ostial tapering. Bifurcates properly to LAD and circumflex. LAD-LAD is occluded after the takeoff of septal 1 branch. No reconstitution of the distal LAD notable via left to left collaterals Circumflex-the circumflex leads into a large OM branch which supplies a very large distribution of the lateral wall. Proximal portion of the circumflex reveals a heavily calcified boulder like lesion of around 90%. There is SHEELA-3 flow noted through the circumflex. In the midportion of said circumflex there is about a 50% lesion notable. RCA-the RCA is a very tortuous vessel. It provides a PDA and a moderate-sized PL system. There is an eccentric rat-bite lesion of around 75% just before the takeoff of the PDA. SHEELA-3 flow was noted through that the RCA distribution. Vein graft 1 2 and 3 are occluded as demonstrated by angiography RIVERA to the LAD-the RIVERA is intact. The anastomosis distally is intact. No significant disease notable. SHEELA-3 flow is notable. Postintervention angiogram of the circumflex revealed a well deployed stent with at most 10% residual within the proximal portion. This was evident after aggressive post dilation and was felt to be residual that was adequate considering the severely calcified and fibrotic nature of the lesion. Recommendations Conclusions Non-ST elevation ME as described above Occlusion of all 3 vein grafts Patency of RIVERA to the LAD Culprit lesion is felt to be subtotally occlusive proximal circumflex lesion as described above Residual intermediate level lesion in the RCA as described above Treatment of said high-grade circumflex lesion using drug-eluting stent as described above Plan Patient will be maintained on aggressive antiplatelet therapy. We will see if the patient clinically does. We discussed the findings at length with the patient's family and they are appreciative of care. Angiographic Findings Coronary Arteries and Lesion Findings LCx: Lesion on Mid CX: Devices used - Emerge Balloon MR 2.5x15. 2 inflation(s) to a max pressure of: 15 basilio. - Powell [place] RX 3.5x15 Stent. 1 inflation(s) to a max pressure of: 14 basilio. - NC Emerge MR Balloon 3.5 x 6. 1 inflation(s) to a max pressure of: 15 basilio. - NC Emerge MR Balloon 4.0 x 6. 1 inflation(s) to a max pressure of: 13 basilio. Procedure Data Procedure Date Date: 06/13/2022Start: 10:54End: 12:36 Entry Locations - Retrograde Percutaneous access was performed through the Right Femoral artery (Primary location). A 6 Fr sheath was inserted. Hemostasis was successfully obtained using Angioseal. Procedure Medications - Oxygen NC 2 l/min. - Versed I.V. 1 mg. - Fentanyl I.V. 50 mcg. - Versed I.V. 0.5 mg. - Fentanyl I.V. 25 mcg. - Versed I.V. 0.5 mg. - Fentanyl I.V. 25 mcg. - Heparin I.V. bolus 4000 units. - Nitroglycerin I.A. 200 mcg. - Versed I.V. 1 mg. - Fentanyl I.V. 25 mcg. - Heparin I.V. bolus 1000 units. - Normal Saline I.V. bolus 250 ml. - Normal Saline I.V. 100 ml/hr. Diagnostic Catheters - A6F Expo FL4 Catheterwas used for: left coronary angiography. - A6F Expo FR4 Catheterwas used for: pressure measurement. - A6F Expo FR4 Catheterwas used for: right coronary angiography. - A6F Expo FR4 Catheterwas used for:SVG. - A6F Expo FR4 Catheterwas used for:RIVERA. - A6F Expo 145 Angled Pigtail Catheterwas used for:Was not used. Contrast Material - [id number] ml Fluoroscopy Time: Total: 18:24 minutes. Fluoroscopy Dose: Total: 1293 mGy. Medical History Allergies - Bactrim. - Morphine:(claritin). - Sulfa. Risk Factors The patient risk factors include:prior CABG;treated hypercholesterolemia, treated hypertension, last creatinine: 0.8 mg/dl and creatinine clearance: 58.24 ml/min. Admission Data Hemodynamics Condition: Baseline O2 Consumption: Estimated: 211.25Heart Rate: 81 bpm Pressures (mmHg) +-----+ + !Site !Pressure ! +-----+ + !AO !163/163 (106) ! +-----+ + !LV !165/11 ,15 ! +-----+ + !LV !158/9 ,156 ! +-----+ + !AO !175/78 (121) ! +-----+ + !LV !180/10 ,11 ! +-----+ + !AO !179/90 (130) ! +-----+ + Valve Gradients and Areas + +---------+---------+---------+ +---------+ + !Valve !Peak !Mean !Area !Index !Flow !Source ! + +---------+---------+---------+ +---------+ + !Aortic !5 !0 ! ! ! ! ! + +---------+---------+---------+ +---------+ + !Aortic !5 !0 ! ! ! ! ! + +---------+---------+---------+ +---------+ + Shunts Oxygen Values O2 Consumption 211.25 Signatures XR chest AP portable Narrative: PORTABLE CHEST HISTORY: Shortness of breath. COMPARISON: June 10, 2022. FINDINGS: Status post median sternotomy. The heart is mildly enlarged in size. There is pulmonary vascular congestion. The lungs are clear. There is no pneumothorax. Impression: Pulmonary vascular congestion with mild cardiomegaly. Images reviewed, interpreted, and dictated by Dr. Carlos Alberto Hu. Transcribed by Marisel Sandoval PA-C. Assessment POD 2 left L5-S1 facetectomy, foraminotomy, and discectomy Cardiology following for NSTEMI Plan PT/OT. I discussed with patient and family member option of inpatient rehab vs home health at discharge. Cosigned by Edith Odonnell MD at 06/19/2022 11:17 AM EDT * ADILENE Huerta/Tricia - 06/14/2022 2:36 PM EDT Images from the original note were not included. Inpatient Occupational Therapy Initial Evaluation Patient Name: Chen Merritt Date of : 1940 Date of Evaluation: 06/14/22 Start Time: 1408 Stop Time: 1436 Session Duration: 28 minutes Total time: 38 minutes spent, including 10 minutes for nursing collaboration, thorough chart and systems review, and clinical reasoning. This patient is a 81 y.o. female admitted on 06/10/2022 with Weakness [R53.1] Acute respiratory failure with hypoxia (HCC) [J96.01] Urinary tract infection without hematuria, site unspecified [N39.0] Altered mental status, unspecified altered mental status type [R41.82] Midline low back pain without sciatica, unspecified chronicity [M54.50]. Patient had L5-S1 facetectomy, foraminotomy, and discectomy on 06/12/2022 Past Medical History: Diagnosis Date ??? Arthritis ??? Coronary artery disease ??? Hyperlipidemia ??? Hypertension ??? Lumbar spondylolysis ??? ME (myocardial infarction) (HCC) ??? Osteopenia ??? Psoriatic arthritis (HCC) ??? Psoriatic arthritis (HCC) Past Surgical History: Procedure Laterality Date ??? CHOLECYSTECTOMY ??? HYSTERECTOMY ??? LAMINECTOMY,LUMBAR Left 06/12/2022 Procedure: (LT L5-S1 FACETECTOMY AND NEUROFORAMINOTOMY; Surgeon: Edith Odonnell MD; Location: [facility]; Service: Neurosurgery; Laterality: Left; [place] 0800,1.5HRS(R) ??? LAMINECTOMY,LUMBAR W/FUSION N/A 12/14/2021 Procedure: L3-5, L5-S1 FUSION AND DECOMPRESSION AUGMENTATION WITH ZIEHM; Surgeon: Edith Odonnell MD; Location: [facility]; Service: Neurosurgery; Laterality: N/A; [place] 0830. 3 HRS (R). PASS. AIRO. PRE CERT STARTED, ??? open heart 2009 4 bypass General Visit type: Initial Evaluation Approved by: Nurse Turpin Patient disposition upon entry: Supine in bed, Call light/pull cord in reach, All needs met and within reach, Nursing aware/notified, Rolled right, Side rails up Assisted by: Nursing Precautions Weightbearing status: No restrictions Precautions: Spinal precautions Isolation precautions: Standard Subjective Subjective: Pt agreeable Pain No-patient has no complaints of pain Cognition Cognition: Overall cognitive status: WFL Arousal/alertness: Appropriate response to stimuli Attention span: Appears intact Memory: Appears intact Orientation level: Oriented x4 Following commands: Follows all commands and directions without difficulty Safety judgment: Good awareness of safety precautions Awareness of errors: Good awareness of errors made Deficits: Fully aware of deficits Impulsive: Within functional limits (WFL) Home Living Lives with: Adult children Receives help from: Family Type of home: House Home layout: Two levels, 1 stair to enter without rails, Able to live on main level with bedroom/bathroom access Bathroom layout: Walk in shower Home equipment available: Rolling walker, Rollator, Straight cane, Hospital bed, Bedside commode, Grab bars located in shower, Shower chair Functional Mobility PLOF: Patient reports being independent with all functional mobility prior to onset., Comment: Up until last ~1 mo, required increased assistance 2/2 pain Activities of Daily Living PLOF: Patient reports being independent with all ADL's prior to onset., Comment: Up until last ~1 mo, required increased assistance 2/2 pain Objective Range of Motion Assessment Patient's ROM is within functional limits in bilateral upper extremities Strength Assessment Patient's strength is within functional limits in bilateral upper extremities Coordination/Sensation Sensation: Light touch:Comment: Numbness/tingling in hands and feet 2/2 hx of neuropathy Bed Mobility Rolling: Minimal assistance, Rolling to left and right, 1 person assist, Head of bed flat, Use of bed rails Scooting: Maximal assistance, 2 person assist, Head of bed flat Supine to sit: Moderate assistance, 1 person assist, Head of bed elevated, Use of bedrails Sit to supine: Moderate assistance, 1 person assist, Head of bed flat Balance Static sitting balance:Good: Patient able to maintain balance without handheld support; limited postural sway Outcome Measures [facility] Daily Living Functional Assessment How much help from another person does the patient currently need: Putting on and taking off regular lower body clothing? 2 Bathing, including washing, rinsing, and drying? 2 Toileting, including using toilet, bedpan or urinal? 2 Putting on and taking off regular upper body clothing? 3 Taking care of personal grooming such as brushing teeth? 3 Eating meals? 4 Raw Score 16/24 Total Score 54% impaired 1=Total/Unable (Total assist/Dependent) 2=A lot (Maximal/Moderate assist) 3=A little (Minimal/Contact guard/Supervision/Setup) 4=None (Modified independent/Independent) Raw Score Approximate Degree of Functional Impairment 6 100% 7 92% 8 87% 9 83% 10 77% 11 73% 12 69% 13 65% 14 61% 15 58% 16 54% 17 51% 18 47% 19 42% 20 36% 21 29% 22 21% 23 11% 24 0% Activity Tolerance Patient tolerated activity/intervention well with no complaints. Assessment Assessment Pt and RN josue'd OT evaluation at this time. Pt tolerated OT evaluation well. Pt supine in bed uponOT arrival. Pt to EOB with Mod A with HOB elevated and bed rail. Pt sat EOB for 10 minutes with supervision. Pt returned to supine with Mod A. Pt rolled to left and right with Min A and bed rail for linen change. Pt required Max A to scoot to HOB. Pt left supine in bed with HOB elevated, call lightwithin reach, and family present at bedside. Problems: Difficulty with ADLs, Impaired functional mobility, Impaired IADLs, Impaired safety risk,Fall risk Rehab potential: Good for stated goals Plan Recommendations Discharge recommendations: Patient would benefit from 3 hours of intensive multidisciplinary therapy per day to maximize functional outcomes and address functional limitations to return to highest level of functioning. DME recommendations: Patient has no DME/adaptive equipment discharge needs at this time. Treatment Plan: ADL training, IADL training, Functional mobility/transfer training, Safety training OT Frequency/Duration: 5x/week for 14 days Goals Lower body dressing: Pt will complete lower body dressing with modified independence using pilot control operator helper,long handled shoehorn, sock aid. Bed mobility: Pt will complete supine to sit with modified independence supervision using head of bed elevated, use of bed rails. Functional transfers: Pt will complete toilet transfer with modified independence using rolling walker. Target Date: 06/28/2022 Goals were discussed with patient and family Education Patient educated on role of occupational therapy, patient's plan of care and following, they were able to verbalize understanding. Patient Disposition Upon Leaving Supine in bed, Call Light/Pull Cord in reach, All needs met and within reach, Nursing aware/notified, HOB >30 degrees, Side rails up, Visitor/Family present If this patient discharges prior to next therapy session, this note serves as the patient's discharge summary. Electronically signed by SALUD Magaña - 06/14/2022 - 3:30 PM EDT * Dorinda Graham RN - 06/14/2022 2:23 PM EDT 06/14/22 1422 Home Environment Type of Residence Private residence Living Arrangements Children Support Systems Children Affect Behavior Appropriate Prior/Regular Transportation Family ADL Assessment Current Home Care Services None Assistive Devices Cane;Walker Transition Needs Home or Post Acute Services In home services;Post acute facilities (Rehab/SNF/etc) Patient transferred to [facility] from . 06/12- neurosurgery>>CERTIFIED SCRUM MASTER on 06/13 for NSTEMI, urgently taken to dental laboratory manager +stent. CM consult for snf placement. CM met with patient and family at bedside to explain CM role and discuss DCP. PCP- Dr Angel ([place]). Patient lives at home with daughter. DME- cane, walker. No home o2. No current HH. No snf stays. Patient declines referral to SNF, wants to dc home with hh. CM will send referrals to patient's home area. Dorinda Graham RN * Robby Machuca PA-C - 06/14/2022 10:48 AM EDT Images from the original note were not included. [facility] Medicine Progress Note Chen Merritt is a 81 y.o. female patient with . Subjective: Date of Service: 06/14/2022 Patient seen and examined at bedside.family at bedside. She is feeling well but reports swelling inarms and legs causing discomfort. No dyspnea or chest pain. S/P PTCA with stent placed yesterday. Objective: Temp: [97.9 ??F (36.6 ??C)-98.4 ??F (36.9 ??C)] 97.9 ??F (36.6 ??C) Pulse: [74-100] 100 Resp: [13-33] 18 BP: (136-212)/(70-90) 178/82 Physical Exam Constitutional: General: She is not in acute distress. Comments: Well appearing elderly woman HENT: Head: Normocephalic. Mouth/Throat: Mouth: Mucous membranes are moist. Eyes: Conjunctiva/sclera: Conjunctivae normal. Cardiovascular: Rate and Rhythm: Normal rate and regular rhythm. Pulmonary: Effort: Pulmonary effort is normal. Breath sounds: Normal breath sounds. Musculoskeletal: Cervical back: Neck supple. Right lower leg: No edema. Left lower leg: No edema. Comments: Diffuse nonpitting edema BUE and BLE Skin: Findings: No rash. Neurological: Mental Status: She is alert and oriented to person, place, and time. Psychiatric: Thought Content: Thought content normal. Labs: Results for orders placed or performed during the hospital encounter of 06/10/22 (from the past 24 hour(s)) POC ACTIVATED CLOTTING TIME Status: Abnormal Collection Time: 06/13/22 11:00 AM Result Value Ref Range Activated Clotting Time 167 (H) 74 - 137 sec Home Health Billing Specialist [phone] POC ACTIVATED CLOTTING TIME Status: Abnormal Collection Time: 06/13/22 11:48 AM Result Value Ref Range Activated Clotting Time 239 (H) 74 - 137 sec Home Health Billing Specialist [id number] ECG 12 lead Status: None (In process) Collection Time: 06/13/22 2:26 PM Result Value Ref Range VENTRICULAR RATE EKG/MIN 78 BPM ATRIAL RATE (MCT) 78 BPM AR Interval 158 ms QRS-INTERVAL (MSEC) 90 ms QT Interval 388 ms QTC Interval 442 ms P [employer] 58 degrees R AXIS (MCT) -19 degrees T Wave [employer] 65 degrees [place] Diagnosis Age and gender specific ECG analysis Normal sinus rhythm ST abnormality, possible digitalis effect Abnormal ECG When compared with ECG of 11-MAY-2022 06:18, Vent. rate has decreased BY 61 BPM Questionable change in QRS duration Criteria for Anterior infarct are no longer present Basic Metabolic Panel Status: Abnormal Collection Time: 06/14/22 5:27 AM Result Value Ref Range Sodium 139 136 - 146 meq/L Potassium 4.1 3.5 - 5.1 meq/L Chloride 110 102 - 112 meq/L CO2 18 (L) 21 - 32 meq/L Anion Gap 15 9 - 20 BUN 19 7 - 22 mg/dL Creatinine 0.67 0.55 - 1.02 mg/dL BUN/Creatinine 28 (H) 8 - 20 Glucose 97 74 - 106 mg/dL Calcium 9.3 8.4 - 10.1 mg/dL Osmolality Calc 279.7 eGFR (mL/min/1.73m2) >60 >=60 mL/min/1.73m2 CBC with automated diff Status: Abnormal Collection Time: 06/14/22 5:27 AM Result Value Ref Range WBC 8.7 4.5 - 10.5 K/??L RBC 3.31 (L) 3.93 - 5.22 M/??L Hemoglobin 10.6 (L) 11.2 - 15.7 GM/DL Hematocrit 31.8 (L) 34.1 - 44.9 % MCV 96 (H) 79 - 95 fL MCH 32.0 25.6 - 32.2 pg MCHC 33.3 32.2 - 36.5 GM/DL RDW 14.4 11.7 - 14.9 % Platelets 233 163 - 369 K/CU MM MPV 10.7 9.4 - 12.4 fL % Neutros 74 (H) 34 - 71 % % Lymphs 14 (L) 19 - 53 % % Monos 11 (H) 3 - 9 % % Eos 0 0 - 1 % % Baso 0 0 - 2 % NRBC Absolute 0.00 0 - 0.12 K/ul # Neutros 6.40 (H) 1.56 - 6.13 K/??L # Lymphs 1.25 1.00 - 3.50 K/??L # Monos 0.97 0.16 - 1.00 K/??L # Eos 0.02 0.00 - 0.80 K/??L # Baso 0.01 0.00 - 0.20 K/??L Immature Granulocytes-Relative 0.50 0.00 - 0.60 % # IG 0.04 0.00 - 0.05 K/uL PROBNP Status: Abnormal Collection Time: 06/14/22 5:27 AM Result Value Ref Range ProBNP (pg/mL) 14,793 (H) 0 - 450 pg/mL ECG 12 lead Status: None (In process) Collection Time: 06/14/22 8:17 AM Result Value Ref Range VENTRICULAR RATE EKG/MIN 83 BPM ATRIAL RATE (MCT) 83 BPM AR Interval 156 ms QRS-INTERVAL (MSEC) 94 ms QT Interval 410 ms QTC Interval 481 ms P [employer] 50 degrees R AXIS (MCT) -3 degrees T Wave [employer] 62 degrees [place] Diagnosis Normal sinus rhythm Incomplete right bundle branch block Nonspecific ST abnormality Abnormal ECG When compared with ECG of 13-JUN-2022 14:26, Incomplete right bundle branch block is now present Assessment and Plan: ACS/NSTEMI on 06/13 Heparin drip/brillinta, CARD planning urgent cath today Trop max 2951, trending down Echo: mod LVH EF 55% mod tricuspid regurg PTCA with one stent 06/13, pt doing well 1. Metabolic Encephalopathy: 2/ acute UTI, complicated by narcotic use and advancing age. IV fluids, antibiotics. Limit narcotics as able, continue to treat her chronic back pain. -at baseline per daughter 06/11 ?? 2. Acute UTI: UA turbid, nitrite+ with 2+ bacteria and suprapubic tenderness. Not meeting sepsis criteria on admission. IV Rocephin for usual organisms, no history of recurrent UTIs or MDROs. IV fluids. -Ucx was not initiated with UA, plan to recheck UA after 5 days rocephin to ensure clearance ?? 3. L5/S1 disc herniation: Aware, scheduled for diskectomy with Dr Odonnell this Saturday. Resume homepain regimen PT/OT post-op, Resume home dose of lyrica. -06/12-->Left L5-S1 facetectomy with neuroforaminotomies discectomy for decompression of nerve root -appreciate direction from NSGY regarding movement allowance/restrictions ?? 4. CAD: Mildly elevated troponin here, not concerning for ACS. EKG looks fine, no chest pain. Remote CABGx4 (2008). Resume home meds. Hold aspirin for now given OR plans -pre-anesthesia ECHO -see above NSTEMI early 06/13 ?? 5. HTN: Resume home meds. Hydralazine PRN ?? 6. Psoriatic Arthritis: Controlled on MTX. ??7. Immunocompromised: On MTX for psoriatic arthritis, takes on . Last dose was 05/31. On denosumab twice annually. Continue to hold here. Continue folic acid/vit D, MVI supplementation. ? DVT Prophylaxis: Lovenox Code Status: Full Code. Pt desires everything done in the event of cardiopulmonary arrest. Surrogate Decision Maker: Daughter, Alma ?? Pt does not have advance directive and does not wish to make one right now. ?? Ongoing care: LCH with PTCA and stent placement yesterday afternoon, Chest pain resolved. Has some diffuse swelling proBNP elevated, gentle diuresis added. Continue IV rocephin recheck UA after 5 doses PT/OT eval post-op, Mentation at baseline per daughter NSOC: SNF When: TBD Signed: ROBBY MACHUCA PA-C 06/14/2022 Cosigned by Amaris Jones MD at 06/15/2022 7:07 AM EDT * Grazyna Dowell MD - 06/14/2022 8:54 AM EDT [facility] Basic Information: Name Chen Merritt, 1940, 81 y.o., female Primary Suspension Cord Tier: Dr. Grazyna Dowell PCP: Mayank Angel MD Admit Date 06/10/2022 Patient Location [phone] Subjective: No chest pain. She reports some swelling of her hands and feet. Review of Sytems: Complete 10 point ROS Normal or Non-contributory except complaints described in HPI or other sections of this note. Health Status: Allergies Claritin [Loratadine], Bactrim [Sulfamethoxazole-Trimethoprim], Macrobid [Nitrofurantoin Monohyd/M-Cryst], Morphine, and Sulfa (Sulfonamide Antibiotics) Home Medications: Prior to Admission medications Medication Sig Start Date End Date Taking? Authorizing Provider aspirin 81 MG EC tablet Take 1 tablet (81 mg total) by mouth in the morning. Yes Historical Provider, atorvastatin (LIPITOR) 40 MG tablet Take 1 tablet (40 mg total) by mouth nightly. Yes Historical Provider, calcium phosphate-vitamin D3 250 mg-12.5 mcg (500 unit) Chew Take 1 tablet by mouth in the morning and 1 tablet before bedtime. Yes Historical Provider, cetirizine (ZyrTEC) 10 MG tablet Take 1 tablet (10 mg total) by mouth in the morning. Yes Historical Provider, cholecalciferol (VITAMIN D3) 25 mcg (1,000 unit) tablet Take 1 tablet (1,000 Units total) by mouth in the morning. Yes Historical Provider, denosumab (Prolia) 60 mg/mL Syrg Inject 1 mL (60 mg total) subcutaneously every 6 (six) months. YesHistorical Provider, diclofenac 1 % Gel Apply 2 g topically 4 (four) times daily as needed (for Pain). 09/13/21 Yes Historical Provider, docusate sodium (COLACE) 100 MG capsule Take 2 capsules (200 mg total) by mouth in the morning and 2 capsules (200 mg total) before bedtime. Yes Historical Provider, folic acid (FOLVITE) 1 MG tablet Take 1 tablet (1 mg total) by mouth in the morning. Take everyday except on the day of methotrexate. 09/13/21 Yes Historical Provider, methotrexate 2.5 MG tablet Take 8 tablets (20 mg total) by mouth once a week. 10/31/21 Yes Historical Provider, metoprolol tartrate (LOPRESSOR) 25 MG tablet Take 1 tablet (25 mg total) by mouth in the morning and 1 tablet (25 mg total) before bedtime. Yes Historical Provider, ehnyjhkz-dug-MJ-lycopen-lutein (Centrum Silver) 0.4 mg-300 mcg- 250 mcg Tab Take 1 tablet by mouth daily . Yes Historical Provider, pantoprazole (PROTONIX) 40 MG tablet Take 1 tablet (40 mg total) by mouth in the morning. Yes Historical Provider, pregabalin (LYRICA) 50 MG capsule Take 3 capsules (150 mg total) by mouth nightly. 09/13/21 Yes Historical Provider, dilTIAZem (CARDIZEM CD) 180 MG 24 hr capsule Take 1 capsule (180 mg total) by mouth in the morning.Historical Provider, HYDROcodone-acetaminophen (NORCO 7.5-325) 7.5-325 mg per tablet Take 1 tablet by mouth 2 (two) times daily as needed for Pain. Max Daily Amount: 2 tablets Historical Provider, losartan (COZAAR) 25 MG tablet Take 1 tablet (25 mg total) by mouth in the morning and 1 tablet (25mg total) before bedtime. Historical Provider, Past Medical History: Pt has a past medical history of Arthritis, Coronary artery disease, Hyperlipidemia, Hypertension, Lumbar spondylolysis, ME (myocardial infarction) (HCC), Osteopenia, Psoriatic arthritis (HCC), and Psoriatic arthritis (HCC). Surgical History: Pt has a past surgical history that includes Cholecystectomy; open heart (2008); LAMINECTOMY,LUMBARW/FUSION (N/A, 12/14/2021); Hysterectomy; and LAMINECTOMY,LUMBAR (Left, 06/12/2022). Tobacco History Pt reports that she has never smoked. She has never used smokeless tobacco. Alcohol History Pt reports no history of alcohol use. Drug Use History Pt reports no history of drug use. Family History family history is not on file. OBJECTIVE Vital ranges lat 24 hours Temp: [98.2 ??F (36.8 ??C)-98.4 ??F (36.9 ??C)] 98.4 ??F (36.9 ??C) Pulse: [74-100] 83 Resp: [13-33] 18 BP: (136-212)/(70-90) 154/82 Intake and Output 24 hours: Intake/Output Summary (Last 24 hours) at 06/14/2022 0854 Last data filed at 06/14/2022 0615 Gross per 24 hour Intake 250 ml Output 750 ml Net -500 ml Net I&O this admission: Net IO Since Admission: 2,560.25 mL [06/14/22 0854] Physical Exam General: Alert and oriented, No acute distress. HENT: Normocephalic, Oral mucosa is moist. Neck: Supple, Non-tender, No carotid bruit, No jugular venous distention. Respiratory: Lungs are clear to auscultation, Respirations are non-labored, Symmetrical chest wall expansion. Cardiovascular: Normal rate, Regular rhythm, No murmur, Good pulses equal in all extremities. Gastrointestinal: Soft, Non-distended, Normal bowel sounds. Musculoskeletal: Normal range of motion, Normal strength. Mild swelling of hands and feet. Integumentary: Warm, Dry, [place]. Neurologic: Alert, Oriented. Psychiatric: Cooperative, Appropriate mood & affect. Inpatient Medications aspirin, 81 mg, Oral, Daily atorvastatin, 80 mg, Oral, Once cefTRIAXone (ROCEPHIN) 1 g in NS 50 mL MBP IVPB (SMI), 1 g, Intravenous, Q24H cetirizine, 10 mg, Oral, Daily cholecalciferol, 1,000 Units, Oral, Daily clopidogreL, 300 mg, Oral, Once [START ON 06/15/2022] clopidogreL, 75 mg, Oral, Daily dilTIAZem, 180 mg, Oral, Daily docusate sodium, 100 mg, Oral, BID doxycycline, 100 mg, Intravenous, Q12H fluticasone propionate, 2 spray, Each Nare, BID folic acid, 1,000 mcg, Oral, Daily HYDROcodone-acetaminophen, 0.5 tablet, Oral, Q4H metoprolol tartrate, 25 mg, Oral, TID multivitamin, 1 tablet, Oral, Daily pantoprazole, 40 mg, Oral, Daily polyethylene glycol 3350, 17 g, Oral, Daily pregabalin, 150 mg, Oral, Every Night Saccharomyces boulardii, 250 mg, Oral, BID Results Review: Labs: WBC Date Value Ref Range Status 06/14/2022 8.7 4.5 - 10.5 K/??L Final 06/13/2022 7.2 4.5 - 10.5 K/??L Final 06/11/2022 5.7 4.5 - 10.5 K/??L Final Hemoglobin Date Value Ref Range Status 06/14/2022 10.6 (L) 11.2 - 15.7 GM/DL Final 06/13/2022 11.5 11.2 - 15.7 GM/DL Final 06/11/2022 11.4 11.2 - 15.7 GM/DL Final Platelets Date Value Ref Range Status 06/14/2022 233 163 - 369 K/CU MM Final 06/13/2022 190 163 - 369 K/CU MM Final 06/11/2022 203 163 - 369 K/CU MM Final Creatinine Date Value Ref Range Status 06/14/2022 0.67 0.55 - 1.02 mg/dL Final 06/13/2022 0.80 0.55 - 1.02 mg/dL Final 06/11/2022 0.93 0.55 - 1.02 mg/dL Final BUN Date Value Ref Range Status 06/14/2022 19 7 - 22 mg/dL Final 06/13/2022 16 7 - 22 mg/dL Final 06/11/2022 20 7 - 22 mg/dL Final Potassium Date Value Ref Range Status 06/14/2022 4.1 3.5 - 5.1 meq/L Final 06/13/2022 4.4 3.5 - 5.1 meq/L Final 06/11/2022 4.1 3.5 - 5.1 meq/L Final Sodium Date Value Ref Range Status 06/14/2022 139 136 - 146 meq/L Final 06/13/2022 139 136 - 146 meq/L Final 06/11/2022 139 136 - 146 meq/L Final Magnesium Date Value Ref Range Status 06/13/2022 1.2 (L) 1.5 - 2.4 mg/dL Final 06/10/2022 2.0 1.5 - 2.4 mg/dL Final AST Date Value Ref Range Status 06/13/2022 38 (H) 5 - 37 U/L Final ALT Date Value Ref Range Status 06/13/2022 20 13 - 56 U/L Final Alkaline Phosphatase Date Value Ref Range Status 06/13/2022 60 27 - 136 U/L Final INR Date Value Ref Range Status 06/13/2022 1.01 0.90 - 1.20 Final Comment: Recommended therapeutic ranges using International Normalized Ratio (INR) are: INR RANGE 2.0 - 3.0 ? Routine oral anticoagulant therapy 2.5 - 3.5 ? Oral anticoagulant therapy for patients with thromboembolic events on standard doses of Coumadin and those with mechanical heart valves. Imaging: CARDIAC CATH - LEFT HEART CATH W/ POSSIBLE INTERVENTION Cardiac Diagnostic + PCI Report Demographics Patient Name JOHN Mallory Date of 1940 Patient # [id number] Medical Record # Physician ARSLAN PORRAS DO Date of Study 06/13/2022 Referring RACQUEL PENA Interventional Physician physician Diagnostic Cath Status: Urgent Interventional Cath Status: Urgent Procedure Procedure Type Diagnostic procedure: LHC/Coronaries w/wo LV gram, SUMMER Angiogram, SVG Angiogram PCI procedure: Stent - ANGELICA, Intravascular Lithotripsy Indications: Angina and Abnormal ECG. The procedure was explained in detail to the patient. Risks, complications and alternative treatments were reviewed. Written consent was obtained. Conclusions Procedure Description Procedure performed 1. Ultrasound interrogation of right common femoral artery with access obtained under ultrasound guidance 2. Selective left and right coronary angiography 3. Angiography of vein graft stump 1 4. Angiography of vein graft stump #2 5. Angiography of vein graft stump #3. 6. Angiography of the RIVERA to the LAD 7. LVEDP measurement 8. Successful balloon angioplasty and stenting of subtotal occlusion of proximal circumflex heavily calcified lesion 99% reduced to 10% -predilated with shockwave balloon 3.5 and treated with Powell 3.5 x 15 drug-eluting stent which was postdilated with a 4.0 noncompliant balloon atmospheres 9. Iliofemoral angiography with Angio-Seal to the right common femoral artery Indications Non-ST elevation ME Procedure Patient was brought to the cardiac Production Team Leader on arrival the patient was hemodynamically stable. The right groin was draped and prepped in sterile fashion 2% lidocaine was used anesthetize groin ultrasound interrogation was performed. Common femoral artery is normal. Bifurcational. Pulsatile flow was noted. Under ultrasound guidance access obtained with a 6 [place] sheath introduced accordingly. Using a standard set of diagnostic catheters selective left and right coronary angiography was performed. In addition using the JR catheter angiography of vein graft stump 1 2 and 3 was performed. Using the same diagnostic catheter RIVERA angiography to the LAD was performed. Review of anatomy revealed a subtotal occlusion of the proximal portion of the circumflex. The lesion itself is very fibrotic and densely calcified. It was felt this was probably the culprit behind her ACS picture. Decision was to proceed with intervention. The patient received heparin boluses with serial CT monitoring throughout the procedure. In addition the patient is on Brilinta therapy. JL 4 guiding catheter was introduced into the ascending aorta. Left main was engaged. Through this catheter was advanced a run-through wire and positioned in the distal circumflex OM branch. Over the wire was advanced a 2.5 balloon. Predilation of the lesion was performed. A second balloon shockwave 3.5 was introduced. 60 treatments was provided to the lesion. Repeat angiography showed significant improvement. Decision was to proceed with stenting. An Kiran 3.5 x 15 drug-eluting stent was introduced accordingly. The stent was deployed at optimal pressures. There was some degree of underexpansion of the stent in the proximal portion due to the densely fibrotic nature of the lesion. I postdilated the proximal portion of the stent a very aggressively with a 3.5 noncompliant balloon. I then followed with a 4.0 noncompliant balloon to high atmospheres. Repeat angiography showed a better result with less than 10% residual. I thought this point we had a good result with brisk flow through the vessel. I thought that at this point it would be best to stop said procedure. The patient was hemodynamically stable and comfortable. Decision was to terminate as stated. Interventional code was removed. Iliofemoral angiography was performed. Angio-Seal was successfully deployed 6 [place] to the right common femoral artery. Of note the procedure was performed on the cover of heparin with serial CT monitoring throughout the procedure. Procedure Summary Findings LVEDP of 17 Coronary anatomy Left main mild 20 to 30% ostial tapering. Bifurcates properly to LAD and circumflex. LAD-LAD is occluded after the takeoff of septal 1 branch. No reconstitution of the distal LAD notable via left to left collaterals Circumflex-the circumflex leads into a large OM branch which supplies a very large distribution of the lateral wall. Proximal portion of the circumflex reveals a heavily calcified boulder like lesion of around 90%. There is SHEELA-3 flow noted through the circumflex. In the midportion of said circumflex there is about a 50% lesion notable. RCA-the RCA is a very tortuous vessel. It provides a PDA and a moderate-sized PL system. There is an eccentric rat-bite lesion of around 75% just before the takeoff of the PDA. SHEELA-3 flow was noted through that the RCA distribution. Vein graft 1 2 and 3 are occluded as demonstrated by angiography RIVERA to the LAD-the RIVERA is intact. The anastomosis distally is intact. No significant disease notable. SHEELA-3 flow is notable. Postintervention angiogram of the circumflex revealed a well deployed stent with at most 10% residual within the proximal portion. This was evident after aggressive post dilation and was felt to be residual that was adequate considering the severely calcified and fibrotic nature of the lesion. Recommendations Conclusions Non-ST elevation ME as described above Occlusion of all 3 vein grafts Patency of RIVERA to the LAD Culprit lesion is felt to be subtotally occlusive proximal circumflex lesion as described above Residual intermediate level lesion in the RCA as described above Treatment of said high-grade circumflex lesion using drug-eluting stent as described above Plan Patient will be maintained on aggressive antiplatelet therapy. We will see if the patient clinically does. We discussed the findings at length with the patient's family and they are appreciative of care. Angiographic Findings Coronary Arteries and Lesion Findings LCx: Lesion on Mid CX: Devices used - Emerge Balloon MR 2.5x15. 2 inflation(s) to a max pressure of: 15 basiilo. - Powell [place] RX 3.5x15 Stent. 1 inflation(s) to a max pressure of: 14 basilio. - NC Emerge MR Balloon 3.5 x 6. 1 inflation(s) to a max pressure of: 15 basilio. - NC Emerge MR Balloon 4.0 x 6. 1 inflation(s) to a max pressure of: 13 basilio. Procedure Data Procedure Date Date: 06/13/2022Start: 10:54End: 12:36 Entry Locations - Retrograde Percutaneous access was performed through the Right Femoral artery (Primary location). A 6 Fr sheath was inserted. Hemostasis was successfully obtained using Angioseal. Procedure Medications - Oxygen NC 2 l/min. - Versed I.V. 1 mg. - Fentanyl I.V. 50 mcg. - Versed I.V. 0.5 mg. - Fentanyl I.V. 25 mcg. - Versed I.V. 0.5 mg. - Fentanyl I.V. 25 mcg. - Heparin I.V. bolus 4000 units. - Nitroglycerin I.A. 200 mcg. - Versed I.V. 1 mg. - Fentanyl I.V. 25 mcg. - Heparin I.V. bolus 1000 units. - Normal Saline I.V. bolus 250 ml. - Normal Saline I.V. 100 ml/hr. Diagnostic Catheters - A6F Expo FL4 Catheterwas used for: left coronary angiography. - A6F Expo FR4 Catheterwas used for: pressure measurement. - A6F Expo FR4 Catheterwas used for: right coronary angiography. - A6F Expo FR4 Catheterwas used for:SVG. - A6F Expo FR4 Catheterwas used for:RIVERA. - A6F Expo 145 Angled Pigtail Catheterwas used for:Was not used. Contrast Material - [id number] ml Fluoroscopy Time: Total: 18:24 minutes. Fluoroscopy Dose: Total: 1293 mGy. Medical History Allergies - Bactrim. - Morphine:(claritin). - Sulfa. Risk Factors The patient risk factors include:prior CABG;treated hypercholesterolemia, treated hypertension, last creatinine: 0.8 mg/dl and creatinine clearance: 58.24 ml/min. Admission Data Hemodynamics Condition: Baseline O2 Consumption: Estimated: 211.25Heart Rate: 81 bpm Pressures (mmHg) +-----+ + !Site !Pressure ! +-----+ + !AO !163/163 (106) ! +-----+ + !LV !165/11 ,15 ! +-----+ + !LV !158/9 ,156 ! +-----+ + !AO !175/78 (121) ! +-----+ + !LV !180/10 ,11 ! +-----+ + !AO !179/90 (130) ! +-----+ + Valve Gradients and Areas + +---------+---------+---------+ +---------+ + !Valve !Peak !Mean !Area !Index !Flow !Source ! + +---------+---------+---------+ +---------+ + !Aortic !5 !0 ! ! ! ! ! + +---------+---------+---------+ +---------+ + !Aortic !5 !0 ! ! ! ! ! + +---------+---------+---------+ +---------+ + Shunts Oxygen Values O2 Consumption 211.25 Signatures XR chest AP portable Narrative: PORTABLE CHEST HISTORY: Shortness of breath. COMPARISON: June 10, 2022. FINDINGS: Status post median sternotomy. The heart is mildly enlarged in size. There is pulmonary vascular congestion. The lungs are clear. There is no pneumothorax. Impression: Pulmonary vascular congestion with mild cardiomegaly. Images reviewed, interpreted, and dictated by Dr. Carlos Alberto Hu. Transcribed by Marisel Sandoval PA-C. Problem list: Active Problems: There are no active Hospital Problems. Impression and Plan: IMPRESSION: * NSTEMI: Postoperative after lumbar spine surgery A. ANGELICA ---> proximal calcified Cx * Atherosclerotic cardiovascular disease with history of coronary artery bypass grafting x4 (2008) * Hand and feet swelling: I suspect from perioperative fluid administration. Mild and improving. * Hypertension * Dyslipidemia * Psoriatic arthritis * Metabolic encephalopathy * Acute UTI * L5/S1 disc herniation--status post discectomy on 06/12 PLAN: 06/14/2022 Current medical therapy appropriate Refer to cardiac rehab Ambulate with PT per surgical recommendations We will plan for outpatient follow-up in 4 weeks 06/13/2022 Urgent cardiac catheterization. I spoke with Neurosurgeon Dr. Odonnell about the situation. We are clear to use anti-platelets and anti-coag as needed. I spoke with Dr. Porras in the dental laboratory manager regarding the case. * Denae Barnes LCSW - 06/13/2022 2:21 PM EDTSummary: Progress Social Work Progress Note Patient is not medically ready. Will need PT/OT eval when ready to determine if rehab or HH is appropriate. Cm will continue to follow. Denae Barnes LCSW * Mela Yang, PT - 06/13/2022 11:33 AM EDT Images from the original note were not included. Inpatient Physical Therapy Attempt to Treat Patient Name: Chen Merritt Birthday: 1940 Date of Attempt: 06/13/2022 We discussed this pt with Yeimy WATSON. This pt is off the floor for a cardio cath and will not be coming back to this floor. We will hold PT today and check back tomorrow. If they have an intervention they will need a reorder. Electronically signed by Mela Yang, PT - 06/13/2022 - 11:33 AM EDT * SALUD Landry - 06/13/2022 11:32 AM EDT Images from the original note were not included. Inpatient Occupational Therapy Attempt to Treat Patient Name: Chen Merritt Birthday: 1940 Date of Attempt: 06/13/2022 Pt on HOLD at this time as pt leaving floor for heart cath and will likely not be returning to floor per SHIRLEY Gaffney. OT will check back as schedule allows. Electronically signed by ADILENE Landry/Tricia - 06/13/2022 - 1:07 PM EDT * Robby Machuca PA-C - 06/13/2022 10:58 AM EDT Images from the original note were not included. Hospital Medicine Progress Note Chen Merritt is a 81 y.o. female patient with . Subjective: Date of Service: 06/13/2022 Patient seen and examined at bedside.daughter at bedside. Around 0300 this morning she had an eventof chest pain lasting about 30 minutes with acute EKG changes, elevating troponin levels. OvernightMD initiated heparin and brillinta. Currently she is chest pain free, CARD planning heart cath today. Pain in her back and leg is improved since surgery. Objective: Temp: [97.3 ??F (36.3 ??C)-98.2 ??F (36.8 ??C)] 97.3 ??F (36.3 ??C) Pulse: [68-93] 81 Resp: [11-21] 20 BP: (121-168)/(60-91) 142/79 Physical Exam Constitutional: General: She is not in acute distress. Comments: Well appearing elderly woman HENT: Head: Normocephalic. Mouth/Throat: Mouth: Mucous membranes are moist. Eyes: Conjunctiva/sclera: Conjunctivae normal. Cardiovascular: Rate and Rhythm: Normal rate and regular rhythm. Pulmonary: Effort: Pulmonary effort is normal. Breath sounds: Normal breath sounds. Musculoskeletal: Cervical back: Neck supple. Right lower leg: No edema. Left lower leg: No edema. Skin: Findings: No rash. Neurological: Mental Status: She is alert and oriented to person, place, and time. Psychiatric: Thought Content: Thought content normal. Labs: Results for orders placed or performed during the hospital encounter of 06/10/22 (from the past 24 hour(s)) Glucose, Nova Meter Status: None Collection Time: 06/12/22 2:42 PM Result Value Ref Range POC-GLUCOSE 86 70 - 110 mg/dL Home Health Billing Specialist [id number] ECG 12 lead Status: None (In process) Collection Time: 06/13/22 4:21 AM Result Value Ref Range VENTRICULAR RATE EKG/MIN 96 BPM ATRIAL RATE (MCT) 96 BPM AR Interval 174 ms QRS-INTERVAL (MSEC) 98 ms QT Interval 352 ms QTC Interval 444 ms P [employer] 37 degrees R AXIS (MCT) -44 degrees T Wave [employer] 103 degrees [place] Diagnosis Normal sinus rhythm Left axis deviation Incomplete right bundle branch block Inferior infarct (cited on or before 10-JUN-2022) Anterolateral infarct (cited on or before 10-JUN-2022) ACUTE ME / STEMI Consider right ventricular involvement in acute inferior infarct Abnormal ECG When compared with ECG of 10-JUN-2022 03:57, Questionable change in initial forces of Lateral leads ST now depressed in Lateral leads T wave inversion now evident in Anterolateral leads High Sensitivity Troponin I Status: Abnormal Collection Time: 06/13/22 4:29 AM Result Value Ref Range Troponin I High Sensitivity (pg/mL) 1,629.2 (HH) 3 - 58.8 pg/mL Comprehensive metabolic panel Status: Abnormal Collection Time: 06/13/22 4:29 AM Result Value Ref Range Sodium 139 136 - 146 meq/L Potassium 4.4 3.5 - 5.1 meq/L Chloride 108 102 - 112 meq/L CO2 21 21 - 32 meq/L Calcium 9.1 8.4 - 10.1 mg/dL Glucose 109 (H) 74 - 106 mg/dL BUN 16 7 - 22 mg/dL Creatinine 0.80 0.55 - 1.02 mg/dL BUN/Creatinine 20 8 - 20 Albumin 2.6 (L) 3.4 - 5.0 g/dL Alkaline Phosphatase 60 27 - 136 U/L ALT 20 13 - 56 U/L AST 38 (H) 5 - 37 U/L Total Bilirubin 0.4 0.2 - 1.2 mg/dL Protein, Total 6.1 (L) 6.4 - 8.2 gm/dL Anion Gap 14 9 - 20 A/G Ratio 0.7 (L) 1.1 - 2.5 Globulin 3.5 1.5 - 4.5 g/dL Osmolality Calc 279.3 eGFR (mL/min/1.73m2) >60 >=60 mL/min/1.73m2 PROBNP Status: Abnormal Collection Time: 06/13/22 4:29 AM Result Value Ref Range ProBNP (pg/mL) 7,007 (H) 0 - 450 pg/mL Magnesium Status: Abnormal Collection Time: 06/13/22 4:29 AM Result Value Ref Range Magnesium 1.2 (L) 1.5 - 2.4 mg/dL CBC with automated diff Status: Abnormal Collection Time: 06/13/22 5:24 AM Result Value Ref Range WBC 7.2 4.5 - 10.5 K/??L RBC 3.57 (L) 3.93 - 5.22 M/??L Hemoglobin 11.5 11.2 - 15.7 GM/DL Hematocrit 35.3 34.1 - 44.9 % MCV 99 (H) 79 - 95 fL MCH 32.2 25.6 - 32.2 pg MCHC 32.6 32.2 - 36.5 GM/DL RDW 14.3 11.7 - 14.9 % Platelets 190 163 - 369 K/CU MM MPV 10.5 9.4 - 12.4 fL % Neutros 82 (H) 34 - 71 % % Lymphs 8 (L) 19 - 53 % % Monos 9 3 - 9 % % Eos 0 0 - 1 % % Baso 0 0 - 2 % NRBC Absolute 0.00 0 - 0.12 K/ul # Neutros 5.88 1.56 - 6.13 K/??L # Lymphs 0.58 (L) 1.00 - 3.50 K/??L # Monos 0.62 0.16 - 1.00 K/??L # Eos 0.02 0.00 - 0.80 K/??L # Baso 0.01 0.00 - 0.20 K/??L Immature Granulocytes-Relative 0.60 0.00 - 0.60 % # IG 0.04 0.00 - 0.05 K/uL Prothrombin time/INR Status: Normal Collection Time: 06/13/22 5:24 AM Result Value Ref Range Protime 11.0 9.2 - 12.0 seconds INR 1.01 0.90 - 1.20 High Sensitivity Troponin I Status: Abnormal Collection Time: 06/13/22 5:24 AM Result Value Ref Range Troponin I High Sensitivity (pg/mL) 1,454.5 (HH) 3 - 58.8 pg/mL PTT Heparin Protocol Status: Abnormal Collection Time: 06/13/22 5:24 AM Result Value Ref Range PTT Heparin 23.6 (L) 45 - 65 seconds PTT Heparin Protocol Status: Abnormal Collection Time: 06/13/22 9:25 AM Result Value Ref Range PTT Heparin 71.4 (H) 45 - 65 seconds High Sensitivity Troponin I Status: Abnormal Collection Time: 06/13/22 9:25 AM Result Value Ref Range Troponin I High Sensitivity (pg/mL) 2,951.0 (HH) 3 - 58.8 pg/mL Assessment and Plan: ACS/NSTEMI on 06/13 Heparin drip/brillinta, CARD planning urgent cath today Trop max 2951, trending down Echo: mod LVH EF 55% mod tricuspid regurg 1. Metabolic Encephalopathy: 2/2 acute UTI, complicated by narcotic use and advancing age. IV fluids, antibiotics. Limit narcotics as able, continue to treat her chronic back pain. -at baseline per daughter 06/11 ?? 2. Acute UTI: UA turbid, nitrite+ with 2+ bacteria and suprapubic tenderness. Not meeting sepsis criteria on admission. IV Rocephin for usual organisms, no history of recurrent UTIs or MDROs. IV fluids. -Ucx was not initiated with UA, plan to recheck UA after 5 days rocephin to ensure clearance ?? 3. L5/S1 disc herniation: Aware, scheduled for diskectomy with Dr Odonnell this Saturday. Resume homepain regimen PT/OT post-op, Resume home dose of lyrica. -06/12-->Left L5-S1 facetectomy with neuroforaminotomies discectomy for decompression of nerve root ?? 4. CAD: Mildly elevated troponin here, not concerning for ACS. EKG looks fine, no chest pain. Remote CABGx4 (2008). Resume home meds. Hold aspirin for now given OR plans -pre-anesthesia ECHO -see above NSTEMI early 06/13 ?? 5. HTN: Resume home meds. Hydralazine PRN ?? 6. Psoriatic Arthritis: Controlled on MTX. ??7. Immunocompromised: On MTX for psoriatic arthritis, takes on . Last dose was 05/31. On denosumab twice annually. Continue to hold here. Continue folic acid/vit D, MVI supplementation. ? DVT Prophylaxis: Lovenox Code Status: Full Code. Pt desires everything done in the event of cardiopulmonary arrest. Surrogate Decision Maker: Daughter, Jenecia ?? Pt does not have advance directive and does not wish to make one right now. ?? Ongoing care: NSTEMI overnight CARD doing cath today, tx plan pending results per CARD. Continue IVrocephin recheck UA after 5 doses (today dose 4) PT/OT eval post-op, Mentation at baseline per daughter NSOC: TBD When: TBD Signed: ROBBY MACHUCA PA-C 06/13/2022 Cosigned by Amaris Jones MD at 06/15/2022 7:07 AM EDT * Taya Ramos PA-C - 06/13/2022 8:35 AM EDT Images from the original note were not included. NEUROSURGERY PROGRESS NOTE Subjective Chest pain this morning. Currently improved. She feels short of breath but O2 is 98. Minimal incisional pain. Thinks she may have some improvement in left hip pain since surgery. Physical Exam Blood pressure (!) 142/79, pulse 81, temperature 97.3 ??F (36.3 ??C), resp. rate 20, height 1.6 m (5' 2.99 ), weight 68 kg (150 lb), SpO2 96 %. AAOx3. Lying in bed in NAD. O2 via nasal canula. Moving LEs. Labs Results for orders placed or performed during the hospital encounter of 06/10/22 (from the past 24 hour(s)) Glucose, Nova Meter Status: None Collection Time: 06/12/22 2:42 PM Result Value Ref Range POC-GLUCOSE 86 70 - 110 mg/dL Home Health Billing Specialist [id number] ECG 12 lead Status: None (In process) Collection Time: 06/13/22 4:21 AM Result Value Ref Range VENTRICULAR RATE EKG/MIN 96 BPM ATRIAL RATE (MCT) 96 BPM AR Interval 174 ms QRS-INTERVAL (MSEC) 98 ms QT Interval 352 ms QTC Interval 444 ms P [employer] 37 degrees R AXIS (MCT) -44 degrees T Wave [employer] 103 degrees [place] Diagnosis Normal sinus rhythm Left axis deviation Incomplete right bundle branch block Inferior infarct (cited on or before 10-JUN-2022) Anterolateral infarct (cited on or before 10-JUN-2022) ACUTE ME / STEMI Consider right ventricular involvement in acute inferior infarct Abnormal ECG When compared with ECG of 10-JUN-2022 03:57, Questionable change in initial forces of Lateral leads ST now depressed in Lateral leads T wave inversion now evident in Anterolateral leads High Sensitivity Troponin I Status: Abnormal Collection Time: 06/13/22 4:29 AM Result Value Ref Range Troponin I High Sensitivity (pg/mL) 1,629.2 (HH) 3 - 58.8 pg/mL Comprehensive metabolic panel Status: Abnormal Collection Time: 06/13/22 4:29 AM Result Value Ref Range Sodium 139 136 - 146 meq/L Potassium 4.4 3.5 - 5.1 meq/L Chloride 108 102 - 112 meq/L CO2 21 21 - 32 meq/L Calcium 9.1 8.4 - 10.1 mg/dL Glucose 109 (H) 74 - 106 mg/dL BUN 16 7 - 22 mg/dL Creatinine 0.80 0.55 - 1.02 mg/dL BUN/Creatinine 20 8 - 20 Albumin 2.6 (L) 3.4 - 5.0 g/dL Alkaline Phosphatase 60 27 - 136 U/L ALT 20 13 - 56 U/L AST 38 (H) 5 - 37 U/L Total Bilirubin 0.4 0.2 - 1.2 mg/dL Protein, Total 6.1 (L) 6.4 - 8.2 gm/dL Anion Gap 14 9 - 20 A/G Ratio 0.7 (L) 1.1 - 2.5 Globulin 3.5 1.5 - 4.5 g/dL Osmolality Calc 279.3 eGFR (mL/min/1.73m2) >60 >=60 mL/min/1.73m2 PROBNP Status: Abnormal Collection Time: 06/13/22 4:29 AM Result Value Ref Range ProBNP (pg/mL) 7,007 (H) 0 - 450 pg/mL Magnesium Status: Abnormal Collection Time: 06/13/22 4:29 AM Result Value Ref Range Magnesium 1.2 (L) 1.5 - 2.4 mg/dL CBC with automated diff Status: Abnormal Collection Time: 06/13/22 5:24 AM Result Value Ref Range WBC 7.2 4.5 - 10.5 K/??L RBC 3.57 (L) 3.93 - 5.22 M/??L Hemoglobin 11.5 11.2 - 15.7 GM/DL Hematocrit 35.3 34.1 - 44.9 % MCV 99 (H) 79 - 95 fL MCH 32.2 25.6 - 32.2 pg MCHC 32.6 32.2 - 36.5 GM/DL RDW 14.3 11.7 - 14.9 % Platelets 190 163 - 369 K/CU MM MPV 10.5 9.4 - 12.4 fL % Neutros 82 (H) 34 - 71 % % Lymphs 8 (L) 19 - 53 % % Monos 9 3 - 9 % % Eos 0 0 - 1 % % Baso 0 0 - 2 % NRBC Absolute 0.00 0 - 0.12 K/ul # Neutros 5.88 1.56 - 6.13 K/??L # Lymphs 0.58 (L) 1.00 - 3.50 K/??L # Monos 0.62 0.16 - 1.00 K/??L # Eos 0.02 0.00 - 0.80 K/??L # Baso 0.01 0.00 - 0.20 K/??L Immature Granulocytes-Relative 0.60 0.00 - 0.60 % # IG 0.04 0.00 - 0.05 K/uL Prothrombin time/INR Status: Normal Collection Time: 06/13/22 5:24 AM Result Value Ref Range Protime 11.0 9.2 - 12.0 seconds INR 1.01 0.90 - 1.20 High Sensitivity Troponin I Status: Abnormal Collection Time: 06/13/22 5:24 AM Result Value Ref Range Troponin I High Sensitivity (pg/mL) 1,454.5 (HH) 3 - 58.8 pg/mL PTT Heparin Protocol Status: Abnormal Collection Time: 06/13/22 5:24 AM Result Value Ref Range PTT Heparin 23.6 (L) 45 - 65 seconds XR chest AP portable Narrative: PORTABLE CHEST HISTORY: Shortness of breath. COMPARISON: June 10, 2022. FINDINGS: Status post median sternotomy. The heart is mildly enlarged in size. There is pulmonary vascular congestion. The lungs are clear. There is no pneumothorax. Impression: Pulmonary vascular congestion with mild cardiomegaly. Images reviewed, interpreted, and dictated by Dr. Carlos Alberto Hu. Transcribed by Marisel Sandoval PA-C. Assessment POD 1 left L5-S1 facetectomy, foraminotomy, and discectomy Chest pain, treating for NSTEMI Plan Cardiology has been consulted for ST depression and chest pain PT/OT as tolerated Cosigned by Edith Odonnell MD at 06/19/2022 11:16 AM EDT * Robby Machuca PA-C - 06/12/2022 4:20 PM EDT Images from the original note were not included. [facility] Medicine Progress Note Chen Merritt is a 81 y.o. female patient with . Subjective: Date of Service: 06/12/2022 Patient seen and examined at bedside.daughter at bedside, feeling some better today waiting to go to OR Review of Systems Objective: Temp: [97.7 ??F (36.5 ??C)-98.2 ??F (36.8 ??C)] 98.2 ??F (36.8 ??C) Pulse: [68-93] 68 Resp: [12-21] 13 BP: (133-178)/(65-82) 157/72 Physical Exam Constitutional: General: She is not in acute distress. Comments: Well appearing elderly woman HENT: Head: Normocephalic. Mouth/Throat: Mouth: Mucous membranes are moist. Eyes: Conjunctiva/sclera: Conjunctivae normal. Cardiovascular: Rate and Rhythm: Normal rate and regular rhythm. Pulmonary: Effort: Pulmonary effort is normal. Breath sounds: Normal breath sounds. Musculoskeletal: Cervical back: Neck supple. Right lower leg: No edema. Left lower leg: No edema. Skin: Findings: No rash. Neurological: Mental Status: She is alert and oriented to person, place, and time. Psychiatric: Thought Content: Thought content normal. Labs: Results for orders placed or performed during the hospital encounter of 06/10/22 (from the past 24 hour(s)) Glucose, Nova Meter Status: None Collection Time: 06/12/22 2:42 PM Result Value Ref Range POC-GLUCOSE 86 70 - 110 mg/dL Home Health Billing Specialist [id number] Assessment and Plan: 1. Metabolic Encephalopathy: 2/2 acute UTI, complicated by narcotic use and advancing age. IV fluids, antibiotics. Limit narcotics as able, continue to treat her chronic back pain. -at baseline per daughter 06/11 ?? 2. Acute UTI: UA turbid, nitrite+ with 2+ bacteria and suprapubic tenderness. Not meeting sepsis criteria on admission. IV Rocephin for usual organisms, no history of recurrent UTIs or MDROs. IV fluids. Await culture data. ?? 3. L5/S1 disc herniation: Aware, scheduled for diskectomy with Dr Odonnell this Saturday. Resume homepain regimen PT/OT post-op, Resume home dose of lyrica. -06/12-->Left L5-S1 facetectomy with neuroforaminotomies discectomy for decompression of nerve root ?? 4. CAD: Mildly elevated troponin here, not concerning for ACS. EKG looks fine, no chest pain. Remote CABGx4 (2008). Resume home meds. Hold aspirin for now given OR plans -pre-anesthesia ECHO ?? 5. HTN: Resume home meds. Hydralazine PRN ?? 6. Psoriatic Arthritis: Controlled on MTX. ??7. Immunocompromised: On MTX for psoriatic arthritis, takes on . Last dose was 05/31. On denosumab twice annually. Continue to hold here. Continue folic acid/vit D, MVI supplementation. ? DVT Prophylaxis: Lovenox Code Status: Full Code. Pt desires everything done in the event of cardiopulmonary arrest. Surrogate Decision Maker: Alma Gamble ?? Pt does not have advance directive and does not wish to make one right now. ?? Ongoing care: reeval pain regimen post-op, PT/OT eval post-op, Mentation at baseline per daughter, echo result pending NSOC: TBD When: TBD Signed: ROBBY MACHUCA PA-C 06/12/2022 Cosigned by Amaris Jones MD at 06/13/2022 6:40 AM EDT * Denae Barnes LCSW - 06/12/2022 11:41 AM EDTSummary: Progress Social Work Progress Note Patient is in surgery today. Will need pt/Ot to see patient for eval post surgery. DCP is rehab at discharge. Cm will continue to follow. Denae Barnes LCSW * TESSA Robbins - 06/11/2022 5:11 PM EDT HD 1 - plan for patient to undergo surgical procedure on 06/12/2022 with neurosurgery - CM to followpost surgery to assist with either rehab placement or home health. * Alma Luong, PT - 06/11/2022 2:21 PM EDTSummary: PT screen Images from the original note were not included. Inpatient Physical Therapy Therapy Screen Patient Name: Chen Merritt Birthday: 1940 Date of PT Screen: 06/11/2022 Pt scheduled for surgery tomorrow for left L5-S1 hemilaminectomy and discectomy. Will sign off and await new order post-op to evaluate pt. Electronically signed by Alma Luong PT - 06/11/2022 - 2:21 PM EDT * Robby Machuca PA-C - 06/11/2022 10:31 AM EDT Images from the original note were not included. Hospital Medicine Progress Note Chen Merritt is a 81 y.o. female patient with . Subjective: Date of Service: 06/11/2022 Patient seen and examined at bedside.daughter at bedside, Has list of home meds to review. Discussed home pain regimen would like that to be continued. She vomited after taking meds this AM but has not been vomiting, states she thinks it is due to her pain being so bad right now. C/o nasal occlusion due to allergies, wants to continue home zyrtec. No home oxygen on 2LNC currently, d/w nurse to wean off if able Review of Systems Objective: Temp: [97.9 ??F (36.6 ??C)-98.2 ??F (36.8 ??C)] 98.1 ??F (36.7 ??C) Pulse: [85-91] 91 Resp: [16-18] 18 BP: (130-173)/(63-88) 130/63 Physical Exam Constitutional: General: She is in acute distress. Comments: Well appearing elderly woman HENT: Head: Normocephalic. Mouth/Throat: Mouth: Mucous membranes are moist. Eyes: Conjunctiva/sclera: Conjunctivae normal. Cardiovascular: Rate and Rhythm: Normal rate and regular rhythm. Pulmonary: Effort: Pulmonary effort is normal. Breath sounds: Normal breath sounds. Abdominal: Palpations: Abdomen is soft. Tenderness: There is no abdominal tenderness. Musculoskeletal: Cervical back: Neck supple. Right lower leg: No edema. Left lower leg: No edema. Skin: Findings: No rash. Neurological: Mental Status: She is alert and oriented to person, place, and time. Psychiatric: Thought Content: Thought content normal. Labs: Results for orders placed or performed during the hospital encounter of 06/10/22 (from the past 24 hour(s)) CBC - Hemogram (SJ-BKR) Status: Abnormal Collection Time: 06/11/22 6:51 AM Result Value Ref Range WBC 5.7 4.5 - 10.5 K/??L RBC 3.48 (L) 3.93 - 5.22 M/??L Hemoglobin 11.4 11.2 - 15.7 GM/DL Hematocrit 34.5 34.1 - 44.9 % MCV 99 (H) 79 - 95 fL MCH 32.8 (H) 25.6 - 32.2 pg MCHC 33.0 32.2 - 36.5 GM/DL RDW 14.7 11.7 - 14.9 % Platelets 203 163 - 369 K/CU MM MPV 10.9 9.4 - 12.4 fL Basic Metabolic Panel Status: Abnormal Collection Time: 06/11/22 6:51 AM Result Value Ref Range Sodium 139 136 - 146 meq/L Potassium 4.1 3.5 - 5.1 meq/L Chloride 109 102 - 112 meq/L CO2 23 21 - 32 meq/L Anion Gap 11 9 - 20 BUN 20 7 - 22 mg/dL Creatinine 0.93 0.55 - 1.02 mg/dL BUN/Creatinine 22 (H) 8 - 20 Glucose 95 74 - 106 mg/dL Calcium 8.9 8.4 - 10.1 mg/dL Osmolality Calc 280.0 eGFR (mL/min/1.73m2) >60 >=60 mL/min/1.73m2 Assessment and Plan: 1. Metabolic Encephalopathy: 2/2 acute UTI, complicated by narcotic use and advancing age. IV fluids, antibiotics. Limit narcotics as able, continue to treat her chronic back pain. -at baseline per daughter 06/11 ?? 2. Acute UTI: UA turbid, nitrite+ with 2+ bacteria and suprapubic tenderness. Not meeting sepsis criteria on admission. IV Rocephin for usual organisms, no history of recurrent UTIs or MDROs. IV fluids. Await culture data. ?? 3. L5/S1 disc herniation: Aware, scheduled for diskectomy with Dr Odonnell this Saturday. Resume homepain regimen PT/OT post-op, Resume home dose of lyrica. ?? 4. CAD: Mildly elevated troponin here, not concerning for ACS. EKG looks fine, no chest pain. Remote CABGx4 (2008). Resume home meds. Hold aspirin for now given OR plans -pre-anesthesia ECHO ?? 5. HTN: Resume home meds. Hydralazine PRN ?? 6. Psoriatic Arthritis: Controlled on MTX. ??7. Immunocompromised: On MTX for psoriatic arthritis, takes on . Last dose was 05/31. On denosumab twice annually. Continue to hold here. Continue folic acid/vit D, MVI supplementation. ? DVT Prophylaxis: Lovenox Code Status: Full Code. Pt desires everything done in the event of cardiopulmonary arrest. Surrogate Decision Maker: DaughterAlma ?? Pt does not have advance directive and does not wish to make one right now. ?? Ongoing care: Resume home norco dosing as it was working for her pain, Mentation at baseline per daughter, echo for pre-anesthesia work up, OR planned 06/12 NSOC: TBD When: TBD Signed: ROBBY MACHUCA PA-C 06/11/2022 10:31 AM Cosigned by Amaris Jones MD at 06/11/2022 1:41 PM EDT documented in this encounter H&P Notes * Annette Spencer, NEUROPHYSIOLOGY TECH - 06/10/2022 8:38 AM EDT HPI History Of Present Illness Chen Merritt is a 81 y.o. female presenting with confusion and weakness. She has a PMH as below with known lumbar disk herniation and upcoming diskectomy with Dr. Odonnell this week. She has been having progressive weakness and ongoing pain at home, worse over the last week. She has urinary incontinence at baseline and has been using a bedside commode with difficulty moving around due to her back p ain. This morning she was acutely confused and family brought her in for evaluation. She has been using narcotics at home, taking a half tab of [place] due to side effects (morphine allergy is confusion). Workup here in the ED is concerning for acute urinary tract infection and IV Rocephin has beenstarted. CXR was read by ED provider as possible pneumonia but patient has no upper or lower respiratory symptoms and is normoxic. Troponins were mildly elevated in the setting of chronic CAD but shehas had no chest pain or concerning EKG findings. Diskectomy is scheduled for Saturday. Hospitalist is asked to admit. Seen today in her room. Family is providing much of the history. Patient reports back pain and weakness. She knows when she needs to pee but has difficulty holding it. States she had a urinary incontinence surgery in the past which did not help. She does not get frequent UTIs despite this issue. She seems a bit confused to her family though she was a fair historian for this provider. She has not had chest pain or SOB. No HERNANDEZ/dizziness, visual changes. Denies palpitations. No history of blood clots. No recent falls or head injury. No NVD. Denies dysuria but reports bladder discomfort. Past Medical History She has a past medical history of Arthritis, Coronary artery disease, Hypertension, Psoriatic arthritis (HCC), and Psoriatic arthritis (HCC). Surgical History She has a past surgical history that includes Cholecystectomy; open heart; and LAMINECTOMY,LUMBAR W/FUSION (N/A, 12/14/2021). Social History She reports that she has never smoked. She has never used smokeless tobacco. She reports that she does not drink alcohol and does not use drugs. Family History Her family history is not on file. Significant for CAD, DM2, cancer. Allergies Bactrim [Sulfamethoxazole-Trimethoprim], Macrobid [Nitrofurantoin Monohyd/M- Cryst], Morphine, and Sulfa (Sulfonamide Antibiotics) Medications Current Outpatient Medications Medication Instructions ??? aspirin 81 mg, Oral, Daily ??? atorvastatin (LIPITOR) 40 MG tablet atorvastatin 40 mg tablet TAKE 1 TABLET BY MOUTH AT BEDTIME ??? calcium phosphate-vitamin D3 250 mg-12.5 mcg (500 unit) Chew 500 mg, Oral, 2 times daily ??? cetirizine (ZYRTEC) 10 mg, Oral, As needed ??? cholecalciferol (VITAMIN D3) 1,000 Units, Oral, Daily ??? diclofenac 2 g, Topical (Top), 4 times daily PRN ??? dilTIAZem (CARDIZEM CD) 240 MG 24 hr capsule diltiazem CD 240 mg capsule,extended release 24 hr TAKE 1 CAPSULE BY MOUTH ONCE DAILY ??? docusate sodium (COLACE) 300 mg, Oral, 2 times daily ??? folic acid (FOLVITE) 1,000 mcg, Oral, Daily, 6 days of the week, skip on day of Methotrexate administration. ??? magnesium gluconate (MAGONATE) 27.5 mg magne- sium (500 mg) tablet 500 mg, Oral, Daily ??? methotrexate 20 mg, Oral, Weekly ??? metoprolol tartrate (LOPRESSOR) 25 MG tablet metoprolol tartrate 25 mg tablet TAKE 1 TABLET BY MOUTH TWICE DAILY ??? yamssfjh-uje-IC-lycopen-lutein (Centrum Silver) 0.4 mg-300 mcg- 250 mcg Tab 1 tablet, Oral, Daily ??? pantoprazole (PROTONIX) 40 mg, Oral, Daily ??? pregabalin (LYRICA) 50 MG capsule pregabalin 50 mg capsule TAKE 3 CAPSULES BY MOUTH EVERY DAY AT BEDTIME ??? Prolia 60 mg, Subcutaneous, Every 6 months, Last dose 11/28/21 ??? traMADoL (ULTRAM) 50 mg tablet tramadol 50 mg tablet TAKE 1 TABLET BY MOUTH THREE TIMES DAILY REVIEW OF SYSTEMS Comprehensive ROS is otherwise negative except as per HPI. Last Recorded Vitals Blood pressure 138/53, pulse 68, resp. rate 15, height 1.6 m (5' 3 ), weight 68 kg (150 lb), SpO2 94 %. PHYSICAL EXAM GENERAL: Alert, oriented to person and place. No acute distress. Conversant. Daughter and sister atthe bedside. HEENT: Normocephalic, atraumatic. PERRLA, anicteric. Nares patent. OM a bit dry. Speech clear, tongue and uvula midline. CV: Regular rate and rhythm, no murmur, no gallop. No carotid bruits. No peripheral edema. Normal peripheral perfusion. PULM: Clear to auscultation bilaterally, no wheeze, no rhonchi. Respirations regular and unlabored. GI: Abdomen soft, nontender, nondistended. Positive bowel sounds. No masses. No hernia. : External exam not performed. +suprapubic tenderness. MS: Moves all extremities. Strength equal bilaterally to upper and lower extremities. Independentlyambulatory, gait not assessed. NEURO: CN 2-12 grossly intact. No focal deficits. No tremors. SKIN: Warm, dry, intact. PSYCH: Affect appropriate, mood normal. Cooperative. Diagnostic Results Admission on 06/10/2022 Component Date Value Ref Range Status ??? VENTRICULAR RATE EKG/MIN 06/10/2022 77 BPM Incomplete ??? ATRIAL RATE (MCT) 06/10/2022 77 BPM Incomplete ??? AR Interval 06/10/2022 167 ms Incomplete ??? QRS-INTERVAL (MSEC) 06/10/2022 100 ms Incomplete ??? QT Interval 06/10/2022 371 ms Incomplete ??? QTC Interval 06/10/2022 420 ms Incomplete ??? P [employer] 06/10/2022 36 degrees Incomplete ??? R AXIS (MCT) 06/10/2022 3 degrees Incomplete ??? T Wave [employer] 06/10/2022 68 degrees Incomplete ??? [place] Diagnosis 06/10/2022 Incomplete Value:Normal sinus rhythm RSR' or QR pattern in V1 suggests right ventricular conduction delay Cannot rule out Anterior infarct (cited on or before 08-DEC-2021) Abnormal ECG When compared with ECG of 08-DEC-2021 09:43, No significant change was found ??? Color, UA 06/10/2022 Light Yellow Final ??? Clarity, UA 06/10/2022 Turbid (A) Clear Final ??? Specific [place], UA 06/10/2022 1.012 1.005 - 1.030 Final ??? pH, UA 06/10/2022 6.5 6.0 - 8.0 Final ??? Leukocytes, UA 06/10/2022 25 Blake/uL (A) Negative Final ??? Nitrite, UA 06/10/2022 2+ (A) Negative Final ??? Protein, UA 06/10/2022 Negative Negative Final ??? Glucose, UA 06/10/2022 Normal Normal Final ??? Ketones, UA 06/10/2022 Negative Negative Final ??? Urobilinogen, UA 06/10/2022 Normal Normal Final ??? Bilirubin, UA 06/10/2022 Negative Negative Final ??? Blood, UA 06/10/2022 Negative Negative Final ??? RBC, UA 06/10/2022 0-2 (A) None Seen /HPF Final ??? WBC, UA 06/10/2022 6-10 (A) None Seen /HPF Final ??? Bacteria, UA 06/10/2022 2+ (A) None Seen, Trace Final ??? Mucus 06/10/2022 1+ (A) None Seen Final ??? SQUAMOUS EPITHELIAL 06/10/2022 0-2 (A) None Seen /HPF Final ??? Specimen Source 06/10/2022 Urine, Clean Catch Final ??? WBC 06/10/2022 7.4 4.5 - 10.5 K/??L Final ??? RBC 06/10/2022 3.80 (L) 3.93 - 5.22 M/??L Final ??? Hemoglobin 06/10/2022 12.3 11.2 - 15.7 GM/DL Final ??? Hematocrit 06/10/2022 37.1 34.1 - 44.9 % Final ??? MCV 06/10/2022 98 (H) 79 - 95 fL Final ??? MCH 06/10/2022 32.4 (H) 25.6 - 32.2 pg Final ??? MCHC 06/10/2022 33.2 32.2 - 36.5 GM/DL Final ??? RDW 06/10/2022 14.6 11.7 - 14.9 % Final ??? Platelets 06/10/2022 197 163 - 369 K/CU MM Final ??? MPV 06/10/2022 10.7 9.4 - 12.4 fL Final ??? % Neutros 06/10/2022 71 34 - 71 % Final ??? % Lymphs 06/10/2022 11 (L) 19 - 53 % Final ??? % Monos 06/10/2022 13 (H) 3 - 9 % Final ??? % Eos 06/10/2022 5 (H) 0 - 1 % Final ??? % Baso 06/10/2022 0 0 - 2 % Final ??? NRBC Absolute 06/10/2022 0.00 0 - 0.12 K/ul Final ??? # Neutros 06/10/2022 5.25 1.56 - 6.13 K/??L Final ??? # Lymphs 06/10/2022 0.79 (L) 1.00 - 3.50 K/??L Final ??? # Monos 06/10/2022 0.95 0.16 - 1.00 K/??L Final ??? # Eos 06/10/2022 0.34 0.00 - 0.80 K/??L Final ??? # Baso 06/10/2022 0.03 0.00 - 0.20 K/??L Final ??? Immature Granulocytes-Relative 06/10/2022 0.40 0.00 - 0.60 % Final ??? # IG 06/10/2022 0.03 0.00 - 0.05 K/uL Final ??? Sodium 06/10/2022 136 136 - 146 meq/L Final ??? Potassium 06/10/2022 4.5 3.5 - 5.1 meq/L Final ??? Chloride 06/10/2022 102 102 - 112 meq/L Final ??? CO2 06/10/2022 23 21 - 32 meq/L Final ??? Calcium 06/10/2022 9.6 8.4 - 10.1 mg/dL Final ??? Glucose 06/10/2022 104 74 - 106 mg/dL Final ??? BUN 06/10/2022 25 (H) 7 - 22 mg/dL Final ??? Creatinine 06/10/2022 1.09 (H) 0.55 - 1.02 mg/dL Final ??? BUN/Creatinine 06/10/2022 23 (H) 8 - 20 Final ??? Albumin 06/10/2022 2.9 (L) 3.4 - 5.0 g/dL Final ??? Alkaline Phosphatase 06/10/2022 65 27 - 136 U/L Final ??? ALT 06/10/2022 24 13 - 56 U/L Final ??? AST 06/10/2022 30 5 - 37 U/L Final ??? Total Bilirubin 06/10/2022 0.4 0.2 - 1.2 mg/dL Final ??? Protein, Total 06/10/2022 6.6 6.4 - 8.2 gm/dL Final ??? Anion Gap 06/10/2022 16 9 - 20 Final ??? A/G Ratio 06/10/2022 0.8 (L) 1.1 - 2.5 Final ??? Globulin 06/10/2022 3.7 1.5 - 4.5 g/dL Final ??? Osmolality Calc 06/10/2022 276.7 Final ? ? eGFR (mL/min/1.73m2) 06/10/2022 51 (L) >=60 mL/min/1.73m2 Final ??? Lactic Acid Level (mmol/L) 06/10/2022 0.7 0.4 - 2.0 mmol/L Final ??? ProBNP (pg/mL) 06/10/2022 2,394 (H) 0 - 450 pg/mL Final ??? Magnesium 06/10/2022 2.0 1.5 - 2.4 mg/dL Final ??? Troponin I High Sensitivity (pg/mL) 06/10/2022 63.6 (H) 3 - 58.8 pg/mL Final ??? Procalcitonin 06/10/2022 0.33 0.00 - 2.00 ng/mL Final ??? Protime 06/10/2022 10.7 9.2 - 12.0 seconds Final ??? INR 06/10/2022 0.98 0.90 - 1.20 Final ??? VENTRICULAR RATE EKG/MIN 06/10/2022 67 BPM Incomplete ??? ATRIAL RATE (MCT) 06/10/2022 67 BPM Incomplete ??? AR Interval 06/10/2022 175 ms Incomplete ??? QRS-INTERVAL (MSEC) 06/10/2022 92 ms Incomplete ??? QT Interval 06/10/2022 392 ms Incomplete ??? QTC Interval 06/10/2022 414 ms Incomplete ??? P [employer] 06/10/2022 29 degrees Incomplete ??? R AXIS (MCT) 06/10/2022 -2 degrees Incomplete ??? T Wave [employer] 06/10/2022 56 degrees Incomplete ??? [place] Diagnosis 06/10/2022 Incomplete Value:Normal sinus rhythm Incomplete right bundle branch block Cannot rule out Anterior infarct (cited on or before 08-DEC-2021) Inferior infarct , age undetermined Abnormal ECG When compared with ECG of 10-JUN-2022 00:35, Inferior infarct is now present ??? SARS-COV2/RT-PCR 06/10/2022 Negative Negative Final ??? Influenza A RT-PCR 06/10/2022 Negative Negative Final ??? Influenza B RT-PCR 06/10/2022 Negative Negative Final ??? RSV by RT-PCR 06/10/2022 Negative Negative Final ??? Troponin I High Sensitivity (pg/mL) 06/10/2022 74.3 (H) 3 - 58.8 pg/mL Final XR chest 1 view portable / bedside Narrative: PORTABLE CHEST 06/10/2022 3:27 AM HISTORY: Generalized weakness. COMPARISON: May 2008. FINDINGS: The heart size is mildly enlarged. Previously seen left [place]-Fer catheter has been removed. There is minimal atelectasis at the lung bases. There is no pneumothorax . Impression: Minimal bibasilar atelectasis. Images reviewed, interpreted, and dictated by Dr. Carlos Alberto Hu. Transcribed by Phoebe Stevens PA-C. Assessment & Plan Principal Problem: Weakness 1. Metabolic Encephalopathy: 2/2 acute UTI, complicated by narcotic use and advancing age. IV fluids, antibiotics. Limit narcotics as able, continue to treat her chronic back pain. 2. Acute UTI: UA turbid, nitrite+ with 2+ bacteria and suprapubic tenderness. Not meeting sepsis criteria on admission. IV Rocephin for usual organisms, no history of recurrent UTIs or MDROs. IV fluids. Await culture data. 3. L5/S1 disc herniation: Aware, scheduled for diskectomy with Dr Odonnell this Saturday. Will ask her team to evaluate to determine appropriateness of surgery date. Pain management for now, limit narcotics as able given encephalopathy and advanced age. PT pending NSY recs. Resume home dose of lyrica. 4. CAD: Mildly elevated troponin here, not concerning for ACS. EKG looks fine, no chest pain. Remote CABGx4 (2008). Resume home meds. Hold aspirin for now given OR plans but will ask NSY team to evaluate as surgery may need to be deferred. 5. HTN: Resume home meds. 6. Psoriatic Arthritis: Controlled on MTX. Hold here. Not due for denosumab. 7. Immunocompromised: On MTX for psoriatic arthritis, takes on . Last dose was 05/31. On denosumab twice annually. Continue to hold here. Continue folic acid supplementation. DVT Prophylaxis: Lovenox Code Status: Full Code. Pt desires everything done in the event of cardiopulmonary arrest. Surrogate Decision Maker: DaughterAlma Pt does not have advance directive and does not wish to make one right now. Dispo: Pending clinical improvement, NSY recs. Electronically signed by: ANNETTE SPENCER APRN, 06/10/2022 at 8:38 AM Cosigned by Chino Reardon MD at 06/12/2022 9:08 AM EDT documented in this encounter Consult Notes * Kam Singh RD - 06/20/2022 3:[address] AD[facility] NUTRITION ASSESSMENT ADIME Nutrition Assessment The patient is a 81 y.o. female presenting w/ confusion and weakness. Present on Admission: None (Admitting Diagnoses) Nutrition Evaluation Type: Initial Assessment Reason for Evaluation: LOS Subjective Comments: 06/20: RD screened pt for LOS. Pt currently on a regular diet. 75-100% intakes x3 meals and good-fairappetite per pt chart. LBM 06/20. No skin breakdown noted. Labs and meds reviewed. No nutrition dx atthis time. RD to rescreen in 4-6 days or available prn. Past Medical/Surgical History: Past Medical History: Diagnosis Date ??? Arthritis ??? Coronary artery disease ??? Hyperlipidemia ??? Hypertension ??? Lumbar spondylolysis ??? ME (myocardial infarction) (HCC) ??? Osteopenia ??? Psoriatic arthritis (HCC) ??? Psoriatic arthritis (HCC) Past Surgical History: Procedure Laterality Date ??? CHOLECYSTECTOMY ??? HYSTERECTOMY ??? LAMINECTOMY,LUMBAR Left 06/12/2022 Procedure: (LT L5-S1 FACETECTOMY AND NEUROFORAMINOTOMY; Surgeon: Edith Odonnell MD; Location: [facility]; Service: Neurosurgery; Laterality: Left; [place] 0800,1.5HRS(R) ??? LAMINECTOMY,LUMBAR W/FUSION N/A 12/14/2021 Procedure: L3-5, L5-S1 FUSION AND DECOMPRESSION AUGMENTATION WITH ZIEHM; Surgeon: Edith Odonnell MD; Location: [facility]; Service: Neurosurgery; Laterality: N/A; [place] 0830. 3 HRS (R). PASS. AIRO. PRE CERT STARTED, ??? open heart 2008 4 bypass Nutrition Monitoring and Goals: 1. Continue a regular diet. RD to add ONS prn. Goal: intakes >75% Nutrition Risk Level: No Risk KAM SINGH RDN, LD * Grazyna Dowell MD - 06/13/2022 9:05 AM EDTAssociated Order(s): FS_MODEL_IP IP CONSULT TO CARDIOLOGY [facility] - Consult Note Basic Information: Name Chen Merritt, 1940, 81 y.o., female Primary Suspension Cord Tier: Dr. Grazyna Dowell PCP: Mayank Angel MD Admit Date 06/10/2022 Patient Location [phone] Chief Complaint/Consult reason: Chest pain History of Present Illness: The patient is an exceptionally pleasant 81-year-old female with a known history of atheroscleroticcardiovascular disease with history of coronary bypass grafting in 2008, paroxysmal atrial fibrillation, hypertension, dyslipidemia, venous insufficiency, and chronic back pain who presented to [facility] with complaints of left lower extremity pain along with back pain and was found to have herniation of the L5/S1. She underwent discectomy on 06/12 with correction. Cardiology has been asked to see and assist in management of her care today after she developed midsternal chest pain which radiated to her neck and back starting last night. Recurrence of CP this morning has resolved upon rounds but she is bedrest on heparin. Review of Sytems: Complete 10 point ROS Normal or Non-contributory except complaints described in HPI or other sections of this note. Health Status: Allergies Claritin [Loratadine], Bactrim [Sulfamethoxazole-Trimethoprim], Macrobid [Nitrofurantoin Monohyd/M-Cryst], Morphine, and Sulfa (Sulfonamide Antibiotics) Home Medications: Prior to Admission medications Medication Sig Start Date End Date Taking? Authorizing Provider aspirin 81 MG EC tablet Take 1 tablet (81 mg total) by mouth in the morning. Yes Historical Provider, atorvastatin (LIPITOR) 40 MG tablet Take 1 tablet (40 mg total) by mouth nightly. Yes Historical Provider, calcium phosphate-vitamin D3 250 mg-12.5 mcg (500 unit) Chew Take 1 tablet by mouth in the morning and 1 tablet before bedtime. Yes Historical Provider, cetirizine (ZyrTEC) 10 MG tablet Take 1 tablet (10 mg total) by mouth in the morning. Yes Historical Provider, cholecalciferol (VITAMIN D3) 25 mcg (1,000 unit) tablet Take 1 tablet (1,000 Units total) by mouth in the morning. Yes Historical Provider, denosumab (Prolia) 60 mg/mL Syrg Inject 1 mL (60 mg total) subcutaneously every 6 (six) months. YesHistorical Provider, diclofenac 1 % Gel Apply 2 g topically 4 (four) times daily as needed (for Pain). 09/13/21 Yes Historical Provider, docusate sodium (COLACE) 100 MG capsule Take 2 capsules (200 mg total) by mouth in the morning and 2 capsules (200 mg total) before bedtime. Yes Historical Provider, folic acid (FOLVITE) 1 MG tablet Take 1 tablet (1 mg total) by mouth in the morning. Take everyday except on the day of methotrexate. 09/13/21 Yes Historical ProviderMD methotrexate 2.5 MG tablet Take 8 tablets (20 mg total) by mouth once a week. 10/31/21 Yes Historical ProviderMD metoprolol tartrate (LOPRESSOR) 25 MG tablet Take 1 tablet (25 mg total) by mouth in the morning and 1 tablet (25 mg total) before bedtime. Yes Historical Provider, mxqsctdj-dcr-IQ-lycopen-lutein (Centrum Silver) 0.4 mg-300 mcg- 250 mcg Tab Take 1 tablet by mouth daily . Yes Historical Provider, pantoprazole (PROTONIX) 40 MG tablet Take 1 tablet (40 mg total) by mouth in the morning. Yes Historical Provider, pregabalin (LYRICA) 50 MG capsule Take 3 capsules (150 mg total) by mouth nightly. 09/13/21 Yes Historical Provider, dilTIAZem (CARDIZEM CD) 180 MG 24 hr capsule Take 1 capsule (180 mg total) by mouth in the morning.Historical Provider, HYDROcodone-acetaminophen (NORCO 7.5-325) 7.5-325 mg per tablet Take 1 tablet by mouth 2 (two) times daily as needed for Pain. Max Daily Amount: 2 tablets Historical ProviderMD losartan (COZAAR) 25 MG tablet Take 1 tablet (25 mg total) by mouth in the morning and 1 tablet (25mg total) before bedtime. Historical Provider, Past Medical History: Pt has a past medical history of Arthritis, Coronary artery disease, Hyperlipidemia, Hypertension, Lumbar spondylolysis, ME (myocardial infarction) (HCC), Osteopenia, Psoriatic arthritis ([facility]), and Psoriatic arthritis (HCC). Surgical History: Pt has a past surgical history that includes Cholecystectomy; open heart (2008); LAMINECTOMY,LUMBARW/FUSION (N/A, 12/14/2021); and Hysterectomy. Tobacco History Pt reports that she has never smoked. She has never used smokeless tobacco. Alcohol History Pt reports no history of alcohol use. Drug Use History Pt reports no history of drug use. Family History family history is not on file. OBJECTIVE Vital ranges lat 24 hours Temp: [97.3 ??F (36.3 ??C)-98.2 ??F (36.8 ??C)] 97.3 ??F (36.3 ??C) Pulse: [68-93] 81 Resp: [11-21] 20 BP: (121-168)/(60-91) 142/79 Intake and Output 24 hours: Intake/Output Summary (Last 24 hours) at 06/13/2022 0905 Last data filed at 06/12/2022 1315 Gross per 24 hour Intake 500 ml Output -- Net 500 ml Net I&O this admission: Net IO Since Admission: 3,060.25 mL [06/13/22 0905] Physical Exam General: Alert and oriented, No acute distress. HENT: Normocephalic, Oral mucosa is moist. Neck: Supple, Non-tender, No carotid bruit, No jugular venous distention. Respiratory: Lungs are clear to auscultation, Respirations are non-labored, Symmetrical chest wall expansion. Cardiovascular: Normal rate, Regular rhythm, No murmur, Good pulses equal in all extremities. Gastrointestinal: Soft, Non-distended, Normal bowel sounds. Musculoskeletal: Normal range of motion, Normal strength. Integumentary: Warm, Dry, [place]. Neurologic: Alert, Oriented. Psychiatric: Cooperative, Appropriate mood & affect. Inpatient Medications [START ON 06/14/2022] aspirin, 81 mg, Oral, Daily atorvastatin, 40 mg, Oral, Every Night cefTRIAXone (ROCEPHIN) 1 g in NS 50 mL MBP IVPB (SMI), 1 g, Intravenous, Q24H cetirizine, 10 mg, Oral, Daily cholecalciferol, 1,000 Units, Oral, Daily dilTIAZem, 180 mg, Oral, Daily docusate sodium, 100 mg, Oral, BID doxycycline, 100 mg, Intravenous, Q12H fluticasone propionate, 2 spray, Each Nare, BID folic acid, 1,000 mcg, Oral, Daily HYDROcodone-acetaminophen, 0.5 tablet, Oral, Q4H metoprolol tartrate, 25 mg, Oral, TID multivitamin, 1 tablet, Oral, Daily pantoprazole, 40 mg, Oral, Daily polyethylene glycol 3350, 17 g, Oral, Daily pregabalin, 150 mg, Oral, Every Night Saccharomyces boulardii, 250 mg, Oral, BID ticagrelor, 90 mg, Oral, BID Results Review: Labs: WBC Date Value Ref Range Status 06/13/2022 7.2 4.5 - 10.5 K/??L Final 06/11/2022 5.7 4.5 - 10.5 K/??L Final 06/10/2022 7.4 4.5 - 10.5 K/??L Final Hemoglobin Date Value Ref Range Status 06/13/2022 11.5 11.2 - 15.7 GM/DL Final 06/11/2022 11.4 11.2 - 15.7 GM/DL Final 06/10/2022 12.3 11.2 - 15.7 GM/DL Final Platelets Date Value Ref Range Status 06/13/2022 190 163 - 369 K/CU MM Final 06/11/2022 203 163 - 369 K/CU MM Final 06/10/2022 197 163 - 369 K/CU MM Final Creatinine Date Value Ref Range Status 06/13/2022 0.80 0.55 - 1.02 mg/dL Final 06/11/2022 0.93 0.55 - 1.02 mg/dL Final 06/10/2022 1.09 (H) 0.55 - 1.02 mg/dL Final BUN Date Value Ref Range Status 06/13/2022 16 7 - 22 mg/dL Final 06/11/2022 20 7 - 22 mg/dL Final 06/10/2022 25 (H) 7 - 22 mg/dL Final Potassium Date Value Ref Range Status 06/13/2022 4.4 3.5 - 5.1 meq/L Final 06/11/2022 4.1 3.5 - 5.1 meq/L Final 06/10/2022 4.5 3.5 - 5.1 meq/L Final Sodium Date Value Ref Range Status 06/13/2022 139 136 - 146 meq/L Final 06/11/2022 139 136 - 146 meq/L Final 06/10/2022 136 136 - 146 meq/L Final Magnesium Date Value Ref Range Status 06/13/2022 1.2 (L) 1.5 - 2.4 mg/dL Final 06/10/2022 2.0 1.5 - 2.4 mg/dL Final AST Date Value Ref Range Status 06/13/2022 38 (H) 5 - 37 U/L Final ALT Date Value Ref Range Status 06/13/2022 20 13 - 56 U/L Final Alkaline Phosphatase Date Value Ref Range Status 06/13/2022 60 27 - 136 U/L Final INR Date Value Ref Range Status 06/13/2022 1.01 0.90 - 1.20 Final Comment: Recommended therapeutic ranges using International Normalized Ratio (INR) are: INR RANGE 2.0 - 3.0 ? Routine oral anticoagulant therapy 2.5 - 3.5 ? Oral anticoagulant therapy for patients with thromboembolic events on standard doses of Coumadin and those with mechanical heart valves. Imaging: XR chest AP portable Narrative: PORTABLE CHEST HISTORY: Shortness of breath. COMPARISON: June 10, 2022. FINDINGS: Status post median sternotomy. The heart is mildly enlarged in size. There is pulmonary vascular congestion. The lungs are clear. There is no pneumothorax. Impression: Pulmonary vascular congestion with mild cardiomegaly. Images reviewed, interpreted, and dictated by Dr. Carlos Alberto Hu. Transcribed by Marisel Sandoval PA-C. Problem list: Active Problems: There are no active Hospital Problems. Impression and Plan: IMPRESSION: * NSTEMI: with recurrent paroxysmal CP; ECG changes c/w ischemia * Atherosclerotic cardiovascular disease with history of coronary artery bypass grafting x4 (2008) * Hypertension * Dyslipidemia * Psoriatic arthritis * Metabolic encephalopathy * Acute UTI * L5/S1 disc herniation--status post discectomy on 06/12 PLAN: Urgent cardiac catheterization. I spoke with Neurosurgeon Dr. Odonnell about the situation. We are clear to use anti-platelets and anti-coag as needed. I spoke with Dr. Porras in the dental laboratory manager regarding the case. * Taya Ramos PA-C - 06/11/2022 12:06 PM EDTAssociated Order(s): Inpatient consult to Neurosurgery Inpatient consult to Neurosurgery Consult performed by: Taya Ramos PA-C Consult ordered by: Annette Spencer APRN NEUROSURGERY CONSULT NOTE Primary Care Provider: Mayank Angel MD History of Present Illness Chen Merritt is a 81 y.o. female scheduled for left L5-S1 hemilaminectomy and discectomy tomorrow. She presented to the hospital yesterday with increased pain and confusion. She was found to have a UTI and has been admitted. Patient's daughter in room with her. Currently reports nausea. Increased low back pain and left radicular leg pain. Review of Systems Review of Systems Constitutional: Negative. HENT: Negative. Eyes: Negative. Respiratory: Negative. Cardiovascular: Negative. Gastrointestinal: Positive for nausea and vomiting. Genitourinary: Negative. Musculoskeletal: Positive for back pain. Skin: Negative. Neurological: Positive for tingling. Endo/Heme/Allergies: Negative. Psychiatric/Behavioral: Negative. Past Medical History She has a past medical history of Arthritis, Coronary artery disease, Hypertension, Psoriatic arthritis (HCC), and Psoriatic arthritis (HCC). Past Surgical History She has a past surgical history that includes Cholecystectomy; open heart; and LAMINECTOMY,LUMBAR W/FUSION (N/A, 12/14/2021). Family History She family history is not on file. Allergies Claritin [Loratadine], Bactrim [Sulfamethoxazole-Trimethoprim], Macrobid [Nitrofurantoin Monohyd/M-Cryst], Morphine, and Sulfa (Sulfonamide Antibiotics) Medications Medications Prior to Admission Medication Sig Dispense Refill Last Dose ??? aspirin 81 MG EC tablet Take 1 tablet (81 mg total) by mouth in the morning. 06/09/2022 ??? atorvastatin (LIPITOR) 40 MG tablet Take 1 tablet (40 mg total) by mouth nightly. 06/09/2022 ??? calcium phosphate-vitamin D3 250 mg-12.5 mcg (500 unit) Chew Take 1 tablet by mouth in the morning and 1 tablet before bedtime. 06/09/2022 ??? cetirizine (ZyrTEC) 10 MG tablet Take 1 tablet (10 mg total) by mouth in the morning. 06/09/2022 ??? cholecalciferol (VITAMIN D3) 25 mcg (1,000 unit) tablet Take 1 tablet (1,000 Units total) by mouth in the morning. 06/09/2022 ??? denosumab (Prolia) 60 mg/mL Syrg Inject 1 mL (60 mg total) subcutaneously every 6 (six) months.06/09/2022 ??? diclofenac 1 % Gel Apply 2 g topically 4 (four) times daily as needed (for Pain). 06/09/2022 ??? docusate sodium (COLACE) 100 MG capsule Take 2 capsules (200 mg total) by mouth in the morning and 2 capsules (200 mg total) before bedtime. 06/09/2022 ??? folic acid (FOLVITE) 1 MG tablet Take 1 tablet (1 mg total) by mouth in the morning. Take everyday except on the day of methotrexate. 06/09/2022 ??? methotrexate 2.5 MG tablet Take 8 tablets (20 mg total) by mouth once a week. 06/09/2022 ??? metoprolol tartrate (LOPRESSOR) 25 MG tablet Take 1 tablet (25 mg total) by mouth in the morning and 1 tablet (25 mg total) before bedtime. 06/09/2022 ??? xpayrkcz-uqt-IG-lycopen-lutein (Centrum Silver) 0.4 mg-300 mcg- 250 mcg Tab Take 1 tablet by mouth daily . 06/09/2022 ??? pantoprazole (PROTONIX) 40 MG tablet Take 1 tablet (40 mg total) by mouth in the morning. 06/09/2022 ??? pregabalin (LYRICA) 50 MG capsule Take 3 capsules (150 mg total) by mouth nightly. 06/09/2022 ??? dilTIAZem (CARDIZEM CD) 180 MG 24 hr capsule Take 1 capsule (180 mg total) by mouth in the morning. ??? HYDROcodone-acetaminophen (NORCO 7.5-325) 7.5-325 mg per tablet Take 1 tablet by mouth 2 (two) times daily as needed for Pain. Max Daily Amount: 2 tablets ??? losartan (COZAAR) 25 MG tablet Take 1 tablet (25 mg total) by mouth in the morning and 1 tablet(25 mg total) before bedtime. Vitals Blood pressure (!) 143/77, pulse 110, temperature 98 ??F (36.7 ??C), temperature source Oral, resp.rate 20, height 1.6 m (5' 2.99 ), weight 68 kg (150 lb), SpO2 95 %. Physical Exam HENT: Head: Normocephalic and atraumatic. Eyes: Extraocular Movements: Extraocular movements intact. Pupils: Pupils are equal, round, and reactive to light. Cardiovascular: Rate and Rhythm: Normal rate and regular rhythm. Pulmonary: Effort: Pulmonary effort is normal. Abdominal: General: Abdomen is flat. Palpations: Abdomen is soft. Musculoskeletal: General: No swelling. Skin: General: Skin is warm and dry. Neurological: Mental Status: She is alert. Comments: LE strength limited by pain in left LE, but no focal weakness. Relevant Results Assessment/Plan 81 year old female s/p L3-5 PLIF in November 2021, scheduled as an outpatient for left L5-S1 hemilaminectomy and discectomy tomorrow. Admitted with UTI, lumbar radiculopathy. Plan for OR tomorrow. Signed: Electronically signed by TAYA RAMOS PA-C 06/11/22 12:06 PM EDT Cosigned by Edith Odonnell MD at 06/19/2022 11:15 AM EDT documented in this encounter ED Notes * Rex Pelaez MD - 06/10/2022 8:50 AM EDT Subjective Chief Complaint: Generalized Weakness, Not Associated With Extremities HPI Presents emergency department stating that she could not move, with patient having history of L5-S1 disc herniation with plan for discectomy with on Saturday of this week. Patient states that her pain has been worsening and states that she is able to stand and ambulate but cannot move well second to pain, patient denies any true weakness and patient complains of pain from the left buttock to the left lateral thigh. Patient reportedly had a bowel accident today, with patient daughterstating that patient has a bedside commode that patient ambulated past, with patient found in the bathroom with pants around ankles with bowel accident, with patient having this episode around 10 PM with patient reportedly having taken one half of an opiate pain pill around 7 PM. Patient has not had other bowel or urinary incontinence and does not have any numbness fever or vomiting, patient has some loose stools second to stool softeners due to patient taking pain meds, patient took hydrocodone 7.5 mg - 325 mg acetaminophen with EMS around 11 PM. Patient denies chest pain, endorses nasal congestion, denies shortness of breath, denies aspirin or blood thinners or any trauma or any dysuria. Patient is amnestic to details of incontinence event today. Patient History Past Medical History: Diagnosis Date ??? Arthritis ??? Coronary artery disease ??? Hypertension ??? Psoriatic arthritis (HCC) ??? Psoriatic arthritis (HCC) Past Surgical History: Procedure Laterality Date ??? CHOLECYSTECTOMY ??? LAMINECTOMY,LUMBAR W/FUSION N/A 12/14/2021 Procedure: L3-5, L5-S1 FUSION AND DECOMPRESSION AUGMENTATION WITH ZIEHM; Surgeon: Edith Odonnell MD; Location: [facility]; Service: Neurosurgery; Laterality: N/A; [place] 0830. 3 HRS (R). PASS. AIRO. PRE CERT STARTED, ??? open heart 4 bypass History reviewed. No pertinent family history. Social History Tobacco Use ??? Smoking status: Never ??? Smokeless tobacco: Never Substance Use Topics ??? Alcohol use: Never I reviewed the HPI, ROS and PFSH documentation recorded by others in the medical record and supplemented my note as needed. Review of Systems Review of Systems Negative aside from that which is mentioned in history of presenting illness. Physical Exam ED Triage Vitals Enc Vitals Group BP 06/10/22 0025 (!) 153/75 Pulse 06/10/22 0016 82 Resp 06/10/22 0016 16 Temp -- Temp src -- SpO2 06/10/22 0016 95 % Weight 06/10/22 0016 68 kg (150 lb) Height 06/10/22 0016 1.6 m (5' 3 ) Head Circumference -- Peak Flow -- Pain Score 06/10/22 0016 Zero Pain Loc -- Pain Edu? -- Excl. in GC? -- Physical Exam General: No acute distress Head: Normocephalic atraumatic Eye: Pupils equal round reactive to light, extraocular motions intact Neck: Trachea midline Cardiovascular: Regular rate and rhythm, no murmurs rubs or gallops Pulmonary: Air bilaterally with bibasilar crackles Gastrointestinal: Soft, nontender, no rigidity guarding or signs of acute peritonitis, no CVA tenderness bilaterally Musculoskeletal: No gross deformity, no pitting edema in bilateral lower extremities, no skin changes, no calf tenderness to palpation, no differential swelling Neurological: Alert and oriented x4, GCS 15, 5/5 bilateral lower extremity strength, 2+ symmetric patellar reflexes, sensation intact and equal in bilateral lower extremities Psychiatric: Cooperative XR chest 1 view portable / bedside ED Interpretation Chest x-ray reviewed and interpreted by me in the emergency department and was compared to chest x-ray from May 2008, chest x-ray today shows potential bilateral consolidation with some haziness inleft lower lung ramos potential pleural effusion. Preliminary Result Minimal bibasilar atelectasis. Images reviewed, interpreted, and dictated by Dr. Carlos Alberto Hu. Transcribed by Phoebe Stevens PA-C. CT spine lumbar without IV contrast Preliminary Result 1. Posterior fusion hardware bridging L3-4 and L4-5 with grade 1 spondylolisthesis of L3 on 4. 2. 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 3. Unusual bulky calcifications or ossifications extending into the spinal canal at the L5-S1 level and posterior to the S1 vertebra. High-grade compromise of the right and left lateral recess and of the left L5-S1 neural foramen. Please correlate with any specific radicular symptoms. HEAD CT HISTORY: Mental status change. COMPARISON: None . TECHNIQUE: Multiple axial CT images were performed from the foramen magnum to the vertex without enhancement. Individualized dose reduction techniques using automated exposure control or adjustment of the mA and/or kV according to patient size were employed. FINDINGS: Mild diffuse cortical atrophy is present. There is proportional ventriculomegaly. Mild to moderate abnormal decreased attenuation is seen in the deep white matter bilaterally. There is no evidence of acute hemorrhage, mass effect, or edema. Visualized paranasal sinuses appear well-aerated. IMPRESSION: 1. No definite evidence of acute intracranial abnormality. Images reviewed, interpreted, and dictated by Carlos Alberto Hu MD CT brain without IV contrast Preliminary Result 1. Posterior fusion hardware bridging L3-4 and L4-5 with grade 1 spondylolisthesis of L3 on 4. 2. 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 3. Unusual bulky calcifications or ossifications extending into the spinal canal at the L5-S1 level and posterior to the S1 vertebra. High-grade compromise of the right and left lateral recess and of the left L5-S1 neural foramen. Please correlate with any specific radicular symptoms. HEAD CT HISTORY: Mental status change. COMPARISON: None . TECHNIQUE: Multiple axial CT images were performed from the foramen magnum to the vertex without enhancement. Individualized dose reduction techniques using automated exposure control or adjustment of the mA and/or kV according to patient size were employed. FINDINGS: Mild diffuse cortical atrophy is present. There is proportional ventriculomegaly. Mild to moderate abnormal decreased attenuation is seen in the deep white matter bilaterally. There is no evidence of acute hemorrhage, mass effect, or edema. Visualized paranasal sinuses appear well-aerated. IMPRESSION: 1. No definite evidence of acute intracranial abnormality. Images reviewed, interpreted, and dictated by Carlos Alberto Hu MD Medications cefTRIAXone (ROCEPHIN) 1 g in sodium chloride 0.9 % (NS) MBP 50 mL IVPB (0 g Intravenous Stopped 06/10/22 0802) doxycycline (VIBRAMYCIN) 100 mg in sodium chloride 0.9 % (NS) MBP 100 mL IVPB (has no administration in time range) atorvastatin (LIPITOR) tablet 40 mg (has no administration in time range) dilTIAZem (CARDIZEM CD) 24 hr capsule 240 mg (has no administration in time range) traMADoL (ULTRAM) tablet 50 mg (has no administration in time range) pantoprazole (PROTONIX) DR tablet 40 mg (has no administration in time range) pregabalin (LYRICA) capsule 50 mg (has no administration in time range) metoprolol tartrate (LOPRESSOR) tablet 25 mg (has no administration in time range) docusate sodium (COLACE) capsule 300 mg (has no administration in time range) folic acid (FOLVITE) tablet 1,000 mcg (has no administration in time range) diclofenac (VOLTAREN) 1% topical gel (has no administration in time range) acetaminophen (TYLENOL) tablet 500 mg (has no administration in time range) naloxone (NARCAN) injection 0.2 mg (has no administration in time range) ondansetron (ZOFRAN-ODT) disintegrating tablet 4 mg (has no administration in time range) Or ondansetron PF (ZOFRAN) injection 4 mg (has no administration in time range) promethazine (PHENERGAN) tablet 25 mg (has no administration in time range) Or promethazine (PHENERGAN) injection 12.5 mg (has no administration in time range) polyethylene glycol (GLYCOLAX) packet 17 g (has no administration in time range) enoxaparin (LOVENOX) syringe 40 mg (has no administration in time range) sodium chloride 0.9% (NS) infusion (has no administration in time range) hydrALAZINE (APRESOLINE) injection 10 mg (has no administration in time range) Results for orders placed or performed during the hospital encounter of 06/10/22 SARS-CoV2/Influenza/RSV RT-PCR Specimen: Nasopharyngeal Swab Result Value Ref Range SARS-COV2/RT-PCR Negative Negative Influenza A RT-PCR Negative Negative Influenza B RT-PCR Negative Negative RSV by RT-PCR Negative Negative Urinalysis w/Microscopic Result Value Ref Range Color, UA Light Yellow Clarity, UA Turbid (A) Clear Specific [place], UA 1.012 1.005 - 1.030 pH, UA 6.5 6.0 - 8.0 Leukocytes, UA 25 Blake/uL (A) Negative Nitrite, UA 2+ (A) Negative Protein, UA Negative Negative Glucose, UA Normal Normal Ketones, UA Negative Negative Urobilinogen, UA Normal Normal Bilirubin, UA Negative Negative Blood, UA Negative Negative RBC, UA 0-2 (A) None Seen /HPF WBC, UA 6-10 (A) None Seen /HPF Bacteria, UA 2+ (A) None Seen, Trace Mucus 1+ (A) None Seen SQUAMOUS EPITHELIAL 0-2 (A) None Seen /HPF Specimen Source Urine, Clean Catch CBC with Auto Diff Result Value Ref Range WBC 7.4 4.5 - 10.5 K/??L RBC 3.80 (L) 3.93 - 5.22 M/??L Hemoglobin 12.3 11.2 - 15.7 GM/DL Hematocrit 37.1 34.1 - 44.9 % MCV 98 (H) 79 - 95 fL MCH 32.4 (H) 25.6 - 32.2 pg MCHC 33.2 32.2 - 36.5 GM/DL RDW 14.6 11.7 - 14.9 % Platelets 197 163 - 369 K/CU MM MPV 10.7 9.4 - 12.4 fL % Neutros 71 34 - 71 % % Lymphs 11 (L) 19 - 53 % % Monos 13 (H) 3 - 9 % % Eos 5 (H) 0 - 1 % % Baso 0 0 - 2 % NRBC Absolute 0.00 0 - 0.12 K/ul # Neutros 5.25 1.56 - 6.13 K/??L # Lymphs 0.79 (L) 1.00 - 3.50 K/??L # Monos 0.95 0.16 - 1.00 K/??L # Eos 0.34 0.00 - 0.80 K/??L # Baso 0.03 0.00 - 0.20 K/??L Immature Granulocytes-Relative 0.40 0.00 - 0.60 % # IG 0.03 0.00 - 0.05 K/uL Comprehensive metabolic panel Result Value Ref Range Sodium 136 136 - 146 meq/L Potassium 4.5 3.5 - 5.1 meq/L Chloride 102 102 - 112 meq/L CO2 23 21 - 32 meq/L Calcium 9.6 8.4 - 10.1 mg/dL Glucose 104 74 - 106 mg/dL BUN 25 (H) 7 - 22 mg/dL Creatinine 1.09 (H) 0.55 - 1.02 mg/dL BUN/Creatinine 23 (H) 8 - 20 Albumin 2.9 (L) 3.4 - 5.0 g/dL Alkaline Phosphatase 65 27 - 136 U/L ALT 24 13 - 56 U/L AST 30 5 - 37 U/L Total Bilirubin 0.4 0.2 - 1.2 mg/dL Protein, Total 6.6 6.4 - 8.2 gm/dL Anion Gap 16 9 - 20 A/G Ratio 0.8 (L) 1.1 - 2.5 Globulin 3.7 1.5 - 4.5 g/dL Osmolality Calc 276.7 eGFR (mL/min/1.73m2) 51 (L) >=60 mL/min/1.73m2 Lactic Acid with reflex (SJ) Result Value Ref Range Lactic Acid Level (mmol/L) 0.7 0.4 - 2.0 mmol/L PROBNP Result Value Ref Range ProBNP (pg/mL) 2,394 (H) 0 - 450 pg/mL Magnesium Result Value Ref Range Magnesium 2.0 1.5 - 2.4 mg/dL High Sensitivity Troponin I Result Value Ref Range Troponin I High Sensitivity (pg/mL) 63.6 (H) 3 - 58.8 pg/mL Procalcitonin Result Value Ref Range Procalcitonin 0.33 0.00 - 2.00 ng/mL Prothrombin time/INR Result Value Ref Range Protime 10.7 9.2 - 12.0 seconds INR 0.98 0.90 - 1.20 High Sensitivity Troponin I Result Value Ref Range Troponin I High Sensitivity (pg/mL) 74.3 (H) 3 - 58.8 pg/mL ECG 12 lead Result Value Ref Range VENTRICULAR RATE EKG/MIN 77 BPM ATRIAL RATE (MCT) 77 BPM AR Interval 167 ms QRS-INTERVAL (MSEC) 100 ms QT Interval 371 ms QTC Interval 420 ms P [employer] 36 degrees R AXIS (MCT) 3 degrees T Wave [employer] 68 degrees [place] Diagnosis Normal sinus rhythm RSR' or QR pattern in V1 suggests right ventricular conduction delay Cannot rule out Anterior infarct (cited on or before 08-DEC-2021) Abnormal ECG When compared with ECG of 08-DEC-2021 09:43, No significant change was found ECG 12 lead Result Value Ref Range VENTRICULAR RATE EKG/MIN 67 BPM ATRIAL RATE (MCT) 67 BPM AR Interval 175 ms QRS-INTERVAL (MSEC) 92 ms QT Interval 392 ms QTC Interval 414 ms P [employer] 29 degrees R AXIS (MCT) -2 degrees T Wave [employer] 56 degrees [place] Diagnosis Normal sinus rhythm Incomplete right bundle branch block Cannot rule out Anterior infarct (cited on or before 08-DEC-2021) Inferior infarct , age undetermined Abnormal ECG When compared with ECG of 10-JUN-2022 00:35, Inferior infarct is now present CT spine lumbar without IV contrast Result Date: 06/10/2022 Name: CHEN MERRITT : 1940 CT LUMBAR SPINE HISTORY: Low back pain. TECHNIQUE: Thin section non-contrast axial CT with sagittal reconstructions. Individualized dose reduction techniques using automated exposure control or adjustment of the mA and/or kV according to patient size were employed.FINDINGS: On the sagittal images, streak artifact is seen arising from posterior fusion hardware bridging the L3-4 and L4-5 levels. There is a grade 1 spondylolisthesis of L3 on 4. T12-L1: Minimal endplate hypertrophy is present. L1-L2: Mild diffuse disc bulge is present. There is mild bilateral neural foraminal narrowing. L2- L3: Mild diffuse disc bulge is present. There is mild bilateral facet hy pertrophy present. Mild bilateral neural foraminal narrowing is seen. L3-L4: Moderate diffuse disc bulge is present. Endplate hypertrophy is present. There is moderate bilateral neural foraminal narrowing. L4-L5: Mild diffuse disc bulge is present. Endplate hypertrophy is present. Posterior laminectomy defect is present. There is mild spinal canal compromise. L5-S1: Bulky calcifications or ossifications are identified inferior to the L5-S1 disc level. There is high- grade compromise of the rightlateral recess, left lateral recess, and left neural foramen. These large bulky foci are best seen on the sagittal images 30 through 37 of series 601. Incidental note is made of a localized abdominalaortic aneurysm which appears partially saccular, arising from the posterior aspect of the abdominal aorta. Aneurysm measures up to 3.0 cm in diameter. Large right renal cyst measures approximately 5.7 x 4.5 cm. 1. Posterior fusion hardware bridging L3-4 and L4-5 with grade 1 spondylolisthesis of L3 on 4. 2. 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 3. Unusual bulky calcifications or ossifications extending into the spinal canal at the L5-S1 level and posterior to the S1 vertebra. High-grade compromise of the right and left lateral recess and of the left L5-S1 neural foramen. Please correlate with any specific radicular symptoms. HEAD CT HISTORY: Mental status change. COMPARISON: None . TECHNIQUE: Multiple axial CT images were performed from the foramen magnum to the vertex without enhancement. Individualized dose reduction techniques using automated exposure control or adjustment of the mA and/or kV according to patient size were employed. FINDINGS: Mild diffuse cortical atrophy is present. There is proportional ventriculomegaly. Mild to moderate abnormal decreased attenuation is seen in the deep white matter bilaterally. There is no evidence of acute hemorrhage, masseffect, or edema. Visualized paranasal sinuses appear well- aerated. IMPRESSION: 1. No definite evidence of acute intracranial abnormality. Images reviewed, interpreted, and dictated by Carlos Alberto Hu MD CT brain without IV contrast Result Date: 06/10/2022 Name: CHEN MERRITT : 1940 [address] LUMBAR SPINE HISTORY: Low back pain. TECHNIQUE: Thin section non-contrast axial CT with sagittal reconstructions. Individualized dose reduction techniques using automated exposure control or adjustment of the mA and/or kV according to patient size were employed.FINDINGS: On the sagittal images, streak artifact is seen arising from posterior fusion hardware bridging the L3-4 and L4-5 levels. There is a grade 1 spondylolisthesis of L3 on 4. T12-L1: Minimal endplate hypertrophy is present. L1-L2: Mild diffuse disc bulge is present. There is mild bilateral neural foraminal narrowing. L2- L3: Mild diffuse disc bulge is present. There is mild bilateral facet hy pertrophy present. Mild bilateral neural foraminal narrowing is seen. L3-L4: Moderate diffuse disc bulge is present. Endplate hypertrophy is present. There is moderate bilateral neural foraminal narrowing. L4-L5: Mild diffuse disc bulge is present. Endplate hypertrophy is present. Posterior laminectomy defect is present. There is mild spinal canal compromise. L5-S1: Bulky calcifications or ossifications are identified inferior to the L5-S1 disc level. There is high- grade compromise of the rightlateral recess, left lateral recess, and left neural foramen. These large bulky foci are best seen on the sagittal images 30 through 37 of series 601. Incidental note is made of a localized abdominalaortic aneurysm which appears partially saccular, arising from the posterior aspect of the abdominal aorta. Aneurysm measures up to 3.0 cm in diameter. Large right renal cyst measures approximately 5.7 x 4.5 cm. 1. Posterior fusion hardware bridging L3-4 and L4-5 with grade 1 spondylolisthesis of L3 on 4. 2. 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 3. Unusual bulky calcifications or ossifications extending into the spinal canal at the L5-S1 level and posterior to the S1 vertebra. High-grade compromise of the right and left lateral recess and of the left L5-S1 neural foramen. Please correlate with any specific radicular symptoms. HEAD CT HISTORY: Mental status change. COMPARISON: None . TECHNIQUE: Multiple axial CT images were performed from the foramen magnum to the vertex without enhancement. Individualized dose reduction techniques using automated exposure control or adjustment of the mA and/or kV according to patient size were employed. FINDINGS: Mild diffuse cortical atrophy is present. There is proportional ventriculomegaly. Mild to moderate abnormal decreased attenuation is seen in the deep white matter bilaterally. There is no evidence of acute hemorrhage, masseffect, or edema. Visualized paranasal sinuses appear well- aerated. IMPRESSION: 1. No definite evidence of acute intracranial abnormality. Images reviewed, interpreted, and dictated by Carlos Alberto Hu MD XR chest 1 view portable / bedside Result Date: 06/10/2022 PORTABLE CHEST 06/10/2022 3:27 AM HISTORY: Generalized weakness. COMPARISON: May 2008. FINDINGS: The heart size is mildly enlarged. Previously seen left [place]-Fer catheter has been removed. There isminimal atelectasis at the lung bases. There is no pneumothorax . Minimal bibasilar atelectasis. Images reviewed, interpreted, and dictated by Dr. Carlos Alberto Hu. Transcribed by Phoebe Stevens PA-C. ED Course as of 06/10/22 0858 Sun Jun 10, 2022 0040 ECG reviewed and interpreted by me in the emergency department and shows normal sinus rhythm without any ST segment deviations would be concerning for acute coronary syndrome at this time. [NF] 0707 Initial troponin is elevated, second troponin ordered, patient has new oxygen requirement and is on 2 L, satting 89% on room air, satting in the mid 90s on 2 L. [NF] 0707 COVID-19 influenza and RSV are negative, coags nonactionable [NF] 0707 Urinalysis is positive for nitrite and leukocyte esterase and is consistent with urinary tractinfection [NF] 0708 Rocephin ordered for urinary tract infection [NF] 0708 Lactate nonactionable, magnesium nonactionable, metabolic panel is nonactionable [NF] 0713 CT noncontrast head does not show any acute intracranial process [NF] 0714 CT lumbar spine shows degenerative and postsurgical changes without acute bony abnormality. [NF] 0714 Also covering with doxycycline given potential pneumonia and procalcitonin supporting use of antibiotics. [NF] 0715 Patient has appropriate strength and sensation and symmetric patellar reflexes, no clinical concern for acute cord compression today. Hospitalist paged for admission for intractable pain, urinary tract infection and potential pneumonia with new oxygen requirement with history of episode concerning for delirium. [NF] ED Course User Index [NF] Rex Pelaez MD Procedures MDM Per ED course Assessment & Plan Clinical Impression Diagnosis Comment Added By Time Added Urinary tract infection without hematuria, site unspecified Rex Pelaez MD 06/10/2022 8:55 AM Altered mental status, unspecified altered mental status type Rex Pelaez MD 06/10/2022 8:55 AM Midline low back pain without sciatica, unspecified chronicity Rex Pelaez MD 06/10/2022 8:55 AM Acute respiratory failure with hypoxia (HCC) Rex Pelaez MD 06/10/2022 8:56 AM Disposition Admit [3] - 06/10/2022 8:13 AM Medication List ASK your doctor about these medications aspirin 81 MG EC tablet atorvastatin 40 MG tablet Commonly known as: LIPITOR calcium phosphate-vitamin D3 250 mg-12.5 mcg (500 unit) Chew Centrum Silver 0.4 mg-300 mcg- 250 mcg Tab Generic drug: jmlqimos-gnb-TG-lycopen-lutein cetirizine 10 MG tablet Commonly known as: ZyrTEC cholecalciferol 25 mcg (1,000 unit) tablet Commonly known as: VITAMIN D3 diclofenac 1 % Gel dilTIAZem 240 MG 24 hr capsule Commonly known as: CARDIZEM CD docusate sodium 100 MG capsule Commonly known as: COLACE folic acid 1 MG tablet Commonly known as: FOLVITE magnesium gluconate 27.5 mg magne- sium (500 mg) tablet Commonly known as: MAGONATE methotrexate 2.5 MG tablet metoprolol tartrate 25 MG tablet Commonly known as: LOPRESSOR pantoprazole 40 MG tablet Commonly known as: PROTONIX pregabalin 50 MG capsule Commonly known as: LYRICA Prolia 60 mg/mL Syrg Generic drug: denosumab traMADoL 50 mg tablet Commonly known as: ULTRAM Rex Pelaez MD 06/10/22 0858 * Jewel Velazquez - 06/10/2022 12:25 AM EDT Pt [facility] complaining of weakness and mobility issues related to 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 Pt has upcoming surgery and is recently restricted to bed due to pain and weakness. * Mahnaz Terry - 06/10/2022 12:22 AM EDT Bed: O-1 Expected date: Expected time: Means of arrival: Comments: [facility] Mahnaz Terry 06/10/22 0022 documented in this encounter Miscellaneous Notes * Nursing Progress Notes - Dyana Salgado RN - 06/28/2022 4:21 PM EDT Removed IV and tele, report called to [facility] * Plan of Care - Dyana Salgado RN - 06/27/2022 6:51 PM EDT Problem: Knowledge Deficit Goal: Patient/family/caregiver demonstrates understanding of disease process, treatment plan, medications, and discharge instructions Description: Complete learning assessment and assess knowledge base. Outcome: Progressing Problem: Potential for Falls Goal: Patient will remain free of falls Description: Assess and monitor vitals signs, neurological status including level of consciousness and orientation. Reassess fall risk per hospital policy. Ensure arm band on, uncluttered walking paths in room, adequate room lighting, call light and overbed table within reach, bed in low position, wheels locked, side rails up per policy, and non-skid footwear provided. Outcome: Progressing Problem: Risk for Falls Goal: No falls during hospitalization Description: Patient will not fall during hospitalization. Outcome: Progressing Problem: Knowledge Deficit Goal: Knowledge - personal safety Description: Patient will verbalize understanding of fall prevention. Outcome: Progressing Problem: Compromised Skin Integrity Goal: LTG - Patient will be free from infection Outcome: Progressing Goal: LTG - Patient will maintain/improve skin integrity through proper skin care techniques Outcome: Progressing Goal: LTG - Patient will demonstrate appropriate pressure relief techniques Outcome: Progressing Goal: LTG - Patient will demonstrate appropriate skin care techniques Outcome: Progressing Goal: LTG - Patient will be free from infection Outcome: Progressing Goal: STG - Patient demonstrates skin care/treatment/dressing change Outcome: Progressing Goal: STG - Patient will maintain good skin integrity Outcome: Progressing Goal: STG - Patient exhibits signs of wound healing. Outcome: Progressing Goal: STG - Patient demonstrates pressure reduction techniques Outcome: Progressing Goal: STG - Patient demonstrates preventative skin care measures Outcome: Progressing Problem: Pain Goal: Patient's pain/discomfort is manageable Description: Assess and monitor patient's pain using appropriate pain scale. Collaborate with interdisciplinary team and initiate plan and interventions as ordered. Re-assess patient's pain level after pain management intervention. Outcome: Progressing Problem: Safety Goal: Patient will be injury free during hospitalization Description: Assess and monitor vitals signs, neurological status including level of consciousness and orientation. Assess patient's risk for falls and implement fall prevention plan of care and interventions per hospital policy. Ensure arm band on, uncluttered walking paths in room, adequate room lighting, call light and overbed table within reach, bed in low position, wheels locked, side rails up per policy, and non-skid footwear provided. Outcome: Progressing Problem: Potential for Developing a Blood Clot Goal: Tissue perfusion is adequate - venous Description: Assess and monitor skin color and temperature, skin integrity, pulses, capillary refill, edema, pain in extremities, Homans' sign, labs (D- dimer), and diagnostic tests (ultrasound, CT scan, VQ scan). Monitor for signs and symptoms of deep vein thrombosis (swelling of calf/thigh, redness, pain, tenderness). Monitor for signs and symptoms of pulmonary embolism (dyspnea, tachypnea, tachycardia). Collaborate with interdisciplinary team and initiate plans and interventions as needed Outcome: Progressing Problem: Daily Care Goal: Daily care needs are met Description: Assess and monitor ability to perform self care and identify potential discharge needs. Outcome: Progressing Problem: Potential for Infection Goal: Remains infection free Description: Assess and monitor vital signs, skin (color, moisture, integrity, turgor), respiratorystatus, urinary and gastrointestinal status, and labs (WBC, cultures). Administer antibiotics and antipyretics as ordered. Ensure aseptic care of all intravenous lines, invasive tubes/drains and wounds. Monitor for signs and symptoms of infection (redness, warmth, discharge, increased body temperature). Wash hands properly before and after each patient care activity. Follow isolation guidelines per hospital protocol/policy. Collaborate with interdisciplinary team and initiate plan and interventions as ordered. Outcome: Progressing Problem: Psychosocial Needs Goal: Demonstrates ability to cope with hospitalization/illness Description: Assess and monitor patients ability to cope with his/her illness. Outcome: Progressing Goal: Collaborate with patient/family/caregiver to identify patient specific goals for this hospitalization Outcome: Progressing Problem: Anxiety Goal: Anxiety is at manageable level Description: Assess and monitor patient's anxiety level. Monitor for signs and symptoms of anxiety both physical and emotional (heart palpitations, chest pain, shortness of breath, headaches, nausea,feeling jumpy, restlessness, irritable, apprehensive). Collaborate with interdisciplinary team and initiate plan and interventions as ordered. Outcome: Progressing Problem: Inadequate Coping Goal: Demonstrates ability to cope effectively Description: Patient is able to verbalize feelings related to emotional state. Outcome: Progressing Goal: Verbalizes adaptive coping mechanisms Description: Able to verbalize adaptive coping mechanisms such as physical activity, distraction, and deep breathing exercises. Outcome: Progressing Goal: Verbalizes personal strengths Description: Spend time with the patient using empathy and active listening skills. Outcome: Progressing Problem: Progressive Mobility Goal: BMAT Level 1 - With full mechanical lifting assistance: Outcome: Progressing Goal: BMAT Level 2 - With 2-person and/or mechanical lifting assistance: Outcome: Progressing Goal: BMAT Level 3 - With 1 to 2-person and/or mechanical lifting assistance: Outcome: Progressing Goal: BMAT Level 4 - With 1-person assistance or mobility aid as needed (walker, cane, crutches): Outcome: Progressing Problem: Discharge Barriers Goal: Patient's discharge needs are met Description: Collaborate with interdisciplinary team and initiate plans and interventions as needed. Outcome: Progressing * Plan of Care - Kezia Gabriel RN - 06/26/2022 11:14 PM EDT Problem: Knowledge Deficit Goal: Patient/family/caregiver demonstrates understanding of disease process, treatment plan, medications, and discharge instructions Description: Complete learning assessment and assess knowledge base. Outcome: Progressing Problem: Potential for Falls Goal: Patient will remain free of falls Description: Assess and monitor vitals signs, neurological status including level of consciousness and orientation. Reassess fall risk per hospital policy. Ensure arm band on, uncluttered walking paths in room, adequate room lighting, call light and overbed table within reach, bed in low position, wheels locked, side rails up per policy, and non-skid footwear provided. Outcome: Progressing Problem: Risk for Falls Goal: No falls during hospitalization Description: Patient will not fall during hospitalization. Outcome: Progressing Problem: Knowledge Deficit Goal: Knowledge - personal safety Description: Patient will verbalize understanding of fall prevention. Outcome: Progressing Problem: Compromised Skin Integrity Goal: LTG - Patient will be free from infection Outcome: Progressing Goal: LTG - Patient will maintain/improve skin integrity through proper skin care techniques Outcome: Progressing Goal: LTG - Patient will demonstrate appropriate pressure relief techniques Outcome: Progressing Goal: LTG - Patient will demonstrate appropriate skin care techniques Outcome: Progressing Goal: LTG - Patient will be free from infection Outcome: Progressing Goal: STG - Patient demonstrates skin care/treatment/dressing change Outcome: Progressing Goal: STG - Patient will maintain good skin integrity Outcome: Progressing Goal: STG - Patient exhibits signs of wound healing. Outcome: Progressing Goal: STG - Patient demonstrates pressure reduction techniques Outcome: Progressing Goal: STG - Patient demonstrates preventative skin care measures Outcome: Progressing Problem: Pain Goal: Patient's pain/discomfort is manageable Description: Assess and monitor patient's pain using appropriate pain scale. Collaborate with interdisciplinary team and initiate plan and interventions as ordered. Re-assess patient's pain level after pain management intervention. Outcome: Progressing Problem: Safety Goal: Patient will be injury free during hospitalization Description: Assess and monitor vitals signs, neurological status including level of consciousness and orientation. Assess patient's risk for falls and implement fall prevention plan of care and interventions per hospital policy. Ensure arm band on, uncluttered walking paths in room, adequate room lighting, call light and overbed table within reach, bed in low position, wheels locked, side rails up per policy, and non-skid footwear provided. Outcome: Progressing Problem: Potential for Developing a Blood Clot Goal: Tissue perfusion is adequate - venous Description: Assess and monitor skin color and temperature, skin integrity, pulses, capillary refill, edema, pain in extremities, Homans' sign, labs (D- dimer), and diagnostic tests (ultrasound, CT scan, VQ scan). Monitor for signs and symptoms of deep vein thrombosis (swelling of calf/thigh, redness, pain, tenderness). Monitor for signs and symptoms of pulmonary embolism (dyspnea, tachypnea, tachycardia). Collaborate with interdisciplinary team and initiate plans and interventions as needed Outcome: Progressing Problem: Daily Care Goal: Daily care needs are met Description: Assess and monitor ability to perform self care and identify potential discharge needs. Outcome: Progressing Problem: Potential for Infection Goal: Remains infection free Description: Assess and monitor vital signs, skin (color, moisture, integrity, turgor), respiratorystatus, urinary and gastrointestinal status, and labs (WBC, cultures). Administer antibiotics and antipyretics as ordered. Ensure aseptic care of all intravenous lines, invasive tubes/drains and wounds. Monitor for signs and symptoms of infection (redness, warmth, discharge, increased body temperature). Wash hands properly before and after each patient care activity. Follow isolation guidelines per hospital protocol/policy. Collaborate with interdisciplinary team and initiate plan and interventions as ordered. Outcome: Progressing Problem: Psychosocial Needs Goal: Demonstrates ability to cope with hospitalization/illness Description: Assess and monitor patients ability to cope with his/her illness. Outcome: Progressing Goal: Collaborate with patient/family/caregiver to identify patient specific goals for this hospitalization Outcome: Progressing Problem: Anxiety Goal: Anxiety is at manageable level Description: Assess and monitor patient's anxiety level. Monitor for signs and symptoms of anxiety both physical and emotional (heart palpitations, chest pain, shortness of breath, headaches, nausea,feeling jumpy, restlessness, irritable, apprehensive). Collaborate with interdisciplinary team and initiate plan and interventions as ordered. Outcome: Progressing Problem: Inadequate Coping Goal: Demonstrates ability to cope effectively Description: Patient is able to verbalize feelings related to emotional state. Outcome: Progressing Goal: Verbalizes adaptive coping mechanisms Description: Able to verbalize adaptive coping mechanisms such as physical activity, distraction, and deep breathing exercises. Outcome: Progressing Goal: Verbalizes personal strengths Description: Spend time with the patient using empathy and active listening skills. Outcome: Progressing Problem: Progressive Mobility Goal: BMAT Level 1 - With full mechanical lifting assistance: Outcome: Progressing Goal: BMAT Level 2 - With 2-person and/or mechanical lifting assistance: Outcome: Progressing Goal: BMAT Level 3 - With 1 to 2-person and/or mechanical lifting assistance: Outcome: Progressing Goal: BMAT Level 4 - With 1-person assistance or mobility aid as needed (walker, cane, crutches): Outcome: Progressing Problem: Discharge Barriers Goal: Patient's discharge needs are met Description: Collaborate with interdisciplinary team and initiate plans and interventions as needed. Outcome: Progressing * Plan of Care - Lis Magaña RN - 06/24/2022 8:43 PM EDT Problem: Knowledge Deficit Goal: Patient/family/caregiver demonstrates understanding of disease process, treatment plan, medications, and discharge instructions Description: Complete learning assessment and assess knowledge base. Outcome: Progressing Problem: Potential for Falls Goal: Patient will remain free of falls Description: Assess and monitor vitals signs, neurological status including level of consciousness and orientation. Reassess fall risk per hospital policy. Ensure arm band on, uncluttered walking paths in room, adequate room lighting, call light and overbed table within reach, bed in low position, wheels locked, side rails up per policy, and non-skid footwear provided. Outcome: Progressing Problem: Risk for Falls Goal: No falls during hospitalization Description: Patient will not fall during hospitalization. Outcome: Progressing Problem: Knowledge Deficit Goal: Knowledge - personal safety Description: Patient will verbalize understanding of fall prevention. Outcome: Progressing Problem: Compromised Skin Integrity Goal: LTG - Patient will be free from infection Outcome: Progressing Goal: LTG - Patient will maintain/improve skin integrity through proper skin care techniques Outcome: Progressing Goal: LTG - Patient will demonstrate appropriate pressure relief techniques Outcome: Progressing Goal: LTG - Patient will demonstrate appropriate skin care techniques Outcome: Progressing Goal: LTG - Patient will be free from infection Outcome: Progressing Goal: STG - Patient demonstrates skin care/treatment/dressing change Outcome: Progressing Goal: STG - Patient will maintain good skin integrity Outcome: Progressing Goal: STG - Patient exhibits signs of wound healing. Outcome: Progressing Goal: STG - Patient demonstrates pressure reduction techniques Outcome: Progressing Goal: STG - Patient demonstrates preventative skin care measures Outcome: Progressing Problem: Pain Goal: Patient's pain/discomfort is manageable Description: Assess and monitor patient's pain using appropriate pain scale. Collaborate with interdisciplinary team and initiate plan and interventions as ordered. Re-assess patient's pain level after pain management intervention. Outcome: Progressing Problem: Safety Goal: Patient will be injury free during hospitalization Description: Assess and monitor vitals signs, neurological status including level of consciousness and orientation. Assess patient's risk for falls and implement fall prevention plan of care and interventions per hospital policy. Ensure arm band on, uncluttered walking paths in room, adequate room lighting, call light and overbed table within reach, bed in low position, wheels locked, side rails up per policy, and non-skid footwear provided. Outcome: Progressing Problem: Potential for Developing a Blood Clot Goal: Tissue perfusion is adequate - venous Description: Assess and monitor skin color and temperature, skin integrity, pulses, capillary refill, edema, pain in extremities, Homans' sign, labs (D- dimer), and diagnostic tests (ultrasound, CT scan, VQ scan). Monitor for signs and symptoms of deep vein thrombosis (swelling of calf/thigh, redness, pain, tenderness). Monitor for signs and symptoms of pulmonary embolism (dyspnea, tachypnea, tachycardia). Collaborate with interdisciplinary team and initiate plans and interventions as needed Outcome: Progressing Problem: Daily Care Goal: Daily care needs are met Description: Assess and monitor ability to perform self care and identify potential discharge needs. Outcome: Progressing Problem: Potential for Infection Goal: Remains infection free Description: Assess and monitor vital signs, skin (color, moisture, integrity, turgor), respiratorystatus, urinary and gastrointestinal status, and labs (WBC, cultures). Administer antibiotics and antipyretics as ordered. Ensure aseptic care of all intravenous lines, invasive tubes/drains and wounds. Monitor for signs and symptoms of infection (redness, warmth, discharge, increased body temperature). Wash hands properly before and after each patient care activity. Follow isolation guidelines per hospital protocol/policy. Collaborate with interdisciplinary team and initiate plan and interventions as ordered. Outcome: Progressing Problem: Psychosocial Needs Goal: Demonstrates ability to cope with hospitalization/illness Description: Assess and monitor patients ability to cope with his/her illness. Outcome: Progressing Goal: Collaborate with patient/family/caregiver to identify patient specific goals for this hospitalization Outcome: Progressing Problem: Anxiety Goal: Anxiety is at manageable level Description: Assess and monitor patient's anxiety level. Monitor for signs and symptoms of anxiety both physical and emotional (heart palpitations, chest pain, shortness of breath, headaches, nausea,feeling jumpy, restlessness, irritable, apprehensive). Collaborate with interdisciplinary team and initiate plan and interventions as ordered. Outcome: Progressing Problem: Inadequate Coping Goal: Demonstrates ability to cope effectively Description: Patient is able to verbalize feelings related to emotional state. Outcome: Progressing Goal: Verbalizes adaptive coping mechanisms Description: Able to verbalize adaptive coping mechanisms such as physical activity, distraction, and deep breathing exercises. Outcome: Progressing Goal: Verbalizes personal strengths Description: Spend time with the patient using empathy and active listening skills. Outcome: Progressing Problem: Progressive Mobility Goal: BMAT Level 1 - With full mechanical lifting assistance: Outcome: Progressing Goal: BMAT Level 2 - With 2-person and/or mechanical lifting assistance: Outcome: Progressing Goal: BMAT Level 3 - With 1 to 2-person and/or mechanical lifting assistance: Outcome: Progressing Goal: BMAT Level 4 - With 1-person assistance or mobility aid as needed (walker, cane, crutches): Outcome: Progressing Problem: Discharge Barriers Goal: Patient's discharge needs are met Description: Collaborate with interdisciplinary team and initiate plans and interventions as needed. Outcome: Progressing * Plan of Care - Adrianna Pizano RN - 06/24/2022 4:58 PM EDT Problem: Knowledge Deficit Goal: Patient/family/caregiver demonstrates understanding of disease process, treatment plan, medications, and discharge instructions Description: Complete learning assessment and assess knowledge base. Outcome: Progressing Problem: Potential for Falls Goal: Patient will remain free of falls Description: Assess and monitor vitals signs, neurological status including level of consciousness and orientation. Reassess fall risk per hospital policy. Ensure arm band on, uncluttered walking paths in room, adequate room lighting, call light and overbed table within reach, bed in low position, wheels locked, side rails up per policy, and non-skid footwear provided. Outcome: Progressing Problem: Risk for Falls Goal: No falls during hospitalization Description: Patient will not fall during hospitalization. Outcome: Progressing Problem: Knowledge Deficit Goal: Knowledge - personal safety Description: Patient will verbalize understanding of fall prevention. Outcome: Progressing Problem: Compromised Skin Integrity Goal: LTG - Patient will be free from infection Outcome: Progressing Goal: LTG - Patient will maintain/improve skin integrity through proper skin care techniques Outcome: Progressing Goal: LTG - Patient will demonstrate appropriate pressure relief techniques Outcome: Progressing Goal: LTG - Patient will demonstrate appropriate skin care techniques Outcome: Progressing Goal: LTG - Patient will be free from infection Outcome: Progressing Goal: STG - Patient demonstrates skin care/treatment/dressing change Outcome: Progressing Goal: STG - Patient will maintain good skin integrity Outcome: Progressing Goal: STG - Patient exhibits signs of wound healing. Outcome: Progressing Goal: STG - Patient demonstrates pressure reduction techniques Outcome: Progressing Goal: STG - Patient demonstrates preventative skin care measures Outcome: Progressing Problem: Pain Goal: Patient's pain/discomfort is manageable Description: Assess and monitor patient's pain using appropriate pain scale. Collaborate with interdisciplinary team and initiate plan and interventions as ordered. Re-assess patient's pain level after pain management intervention. Outcome: Progressing Problem: Safety Goal: Patient will be injury free during hospitalization Description: Assess and monitor vitals signs, neurological status including level of consciousness and orientation. Assess patient's risk for falls and implement fall prevention plan of care and interventions per hospital policy. Ensure arm band on, uncluttered walking paths in room, adequate room lighting, call light and overbed table within reach, bed in low position, wheels locked, side rails up per policy, and non-skid footwear provided. Outcome: Progressing Problem: Potential for Developing a Blood Clot Goal: Tissue perfusion is adequate - venous Description: Assess and monitor skin color and temperature, skin integrity, pulses, capillary refill, edema, pain in extremities, Homans' sign, labs (D- dimer), and diagnostic tests (ultrasound, CT scan, VQ scan). Monitor for signs and symptoms of deep vein thrombosis (swelling of calf/thigh, redness, pain, tenderness). Monitor for signs and symptoms of pulmonary embolism (dyspnea, tachypnea, tachycardia). Collaborate with interdisciplinary team and initiate plans and interventions as needed Outcome: Progressing Problem: Daily Care Goal: Daily care needs are met Description: Assess and monitor ability to perform self care and identify potential discharge needs. Outcome: Progressing Problem: Potential for Infection Goal: Remains infection free Description: Assess and monitor vital signs, skin (color, moisture, integrity, turgor), respiratorystatus, urinary and gastrointestinal status, and labs (WBC, cultures). Administer antibiotics and antipyretics as ordered. Ensure aseptic care of all intravenous lines, invasive tubes/drains and wounds. Monitor for signs and symptoms of infection (redness, warmth, discharge, increased body temperature). Wash hands properly before and after each patient care activity. Follow isolation guidelines per hospital protocol/policy. Collaborate with interdisciplinary team and initiate plan and interventions as ordered. Outcome: Progressing Problem: Psychosocial Needs Goal: Demonstrates ability to cope with hospitalization/illness Description: Assess and monitor patients ability to cope with his/her illness. Outcome: Progressing Goal: Collaborate with patient/family/caregiver to identify patient specific goals for this hospitalization Outcome: Progressing Problem: Anxiety Goal: Anxiety is at manageable level Description: Assess and monitor patient's anxiety level. Monitor for signs and symptoms of anxiety both physical and emotional (heart palpitations, chest pain, shortness of breath, headaches, nausea,feeling jumpy, restlessness, irritable, apprehensive). Collaborate with interdisciplinary team and initiate plan and interventions as ordered. Outcome: Progressing Problem: Inadequate Coping Goal: Demonstrates ability to cope effectively Description: Patient is able to verbalize feelings related to emotional state. Outcome: Progressing Goal: Verbalizes adaptive coping mechanisms Description: Able to verbalize adaptive coping mechanisms such as physical activity, distraction, and deep breathing exercises. Outcome: Progressing Goal: Verbalizes personal strengths Description: Spend time with the patient using empathy and active listening skills. Outcome: Progressing Problem: Progressive Mobility Goal: BMAT Level 1 - With full mechanical lifting assistance: Outcome: Progressing Goal: BMAT Level 2 - With 2-person and/or mechanical lifting assistance: Outcome: Progressing Goal: BMAT Level 3 - With 1 to 2-person and/or mechanical lifting assistance: Outcome: Progressing Goal: BMAT Level 4 - With 1-person assistance or mobility aid as needed (walker, cane, crutches): Outcome: Progressing Problem: Discharge Barriers Goal: Patient's discharge needs are met Description: Collaborate with interdisciplinary team and initiate plans and interventions as needed. Outcome: Progressing * Plan of Care - Edda Coronado RN - 06/22/2022 9:52 PM EDT Problem: Knowledge Deficit Goal: Patient/family/caregiver demonstrates understanding of disease process, treatment plan, medications, and discharge instructions Description: Complete learning assessment and assess knowledge base. Outcome: Progressing Problem: Potential for Falls Goal: Patient will remain free of falls Description: Assess and monitor vitals signs, neurological status including level of consciousness and orientation. Reassess fall risk per hospital policy. Ensure arm band on, uncluttered walking paths in room, adequate room lighting, call light and overbed table within reach, bed in low position, wheels locked, side rails up per policy, and non-skid footwear provided. Outcome: Progressing Problem: Risk for Falls Goal: No falls during hospitalization Description: Patient will not fall during hospitalization. Outcome: Progressing Problem: Knowledge Deficit Goal: Knowledge - personal safety Description: Patient will verbalize understanding of fall prevention. Outcome: Progressing Problem: Compromised Skin Integrity Goal: LTG - Patient will be free from infection Outcome: Progressing Goal: LTG - Patient will maintain/improve skin integrity through proper skin care techniques Outcome: Progressing Goal: LTG - Patient will demonstrate appropriate pressure relief techniques Outcome: Progressing Goal: LTG - Patient will demonstrate appropriate skin care techniques Outcome: Progressing Goal: LTG - Patient will be free from infection Outcome: Progressing Goal: STG - Patient demonstrates skin care/treatment/dressing change Outcome: Progressing Goal: STG - Patient will maintain good skin integrity Outcome: Progressing Goal: STG - Patient exhibits signs of wound healing. Outcome: Progressing Goal: STG - Patient demonstrates pressure reduction techniques Outcome: Progressing Goal: STG - Patient demonstrates preventative skin care measures Outcome: Progressing * Plan of Care - Edda Coronado RN - 06/21/2022 10:47 PM EDT Problem: Knowledge Deficit Goal: Patient/family/caregiver demonstrates understanding of disease process, treatment plan, medications, and discharge instructions Description: Complete learning assessment and assess knowledge base. Outcome: Progressing Problem: Potential for Falls Goal: Patient will remain free of falls Description: Assess and monitor vitals signs, neurological status including level of consciousness and orientation. Reassess fall risk per hospital policy. Ensure arm band on, uncluttered walking paths in room, adequate room lighting, call light and overbed table within reach, bed in low position, wheels locked, side rails up per policy, and non-skid footwear provided. Outcome: Progressing Problem: Risk for Falls Goal: No falls during hospitalization Description: Patient will not fall during hospitalization. Outcome: Progressing Problem: Knowledge Deficit Goal: Knowledge - personal safety Description: Patient will verbalize understanding of fall prevention. Outcome: Progressing Problem: Compromised Skin Integrity Goal: LTG - Patient will be free from infection Outcome: Progressing Goal: LTG - Patient will maintain/improve skin integrity through proper skin care techniques Outcome: Progressing Goal: LTG - Patient will demonstrate appropriate pressure relief techniques Outcome: Progressing Goal: LTG - Patient will demonstrate appropriate skin care techniques Outcome: Progressing * Plan of Care - Anna Porter RN - 06/20/2022 11:40 PM EDT Problem: Potential for Falls Goal: Patient will remain free of falls Description: Assess and monitor vitals signs, neurological status including level of consciousness and orientation. Reassess fall risk per hospital policy. Ensure arm band on, uncluttered walking paths in room, adequate room lighting, call light and overbed table within reach, bed in low position, wheels locked, side rails up per policy, and non-skid footwear provided. Outcome: Progressing * Plan of Care - Sasha Amaya RN - 06/18/2022 9:37 PM EDT Problem: Knowledge Deficit Goal: Patient/family/caregiver demonstrates understanding of disease process, treatment plan, medications, and discharge instructions Description: Complete learning assessment and assess knowledge base. Outcome: Progressing Problem: Potential for Falls Goal: Patient will remain free of falls Description: Assess and monitor vitals signs, neurological status including level of consciousness and orientation. Reassess fall risk per hospital policy. Ensure arm band on, uncluttered walking paths in room, adequate room lighting, call light and overbed table within reach, bed in low position, wheels locked, side rails up per policy, and non-skid footwear provided. Outcome: Progressing Problem: Risk for Falls Goal: No falls during hospitalization Description: Patient will not fall during hospitalization. Outcome: Progressing Problem: Knowledge Deficit Goal: Knowledge - personal safety Description: Patient will verbalize understanding of fall prevention. Outcome: Progressing Problem: Compromised Skin Integrity Goal: LTG - Patient will be free from infection Outcome: Progressing Goal: LTG - Patient will maintain/improve skin integrity through proper skin care techniques Outcome: Progressing Goal: LTG - Patient will demonstrate appropriate pressure relief techniques Outcome: Progressing Goal: LTG - Patient will demonstrate appropriate skin care techniques Outcome: Progressing Goal: LTG - Patient will be free from infection Outcome: Progressing Goal: STG - Patient demonstrates skin care/treatment/dressing change Outcome: Progressing Goal: STG - Patient will maintain good skin integrity Outcome: Progressing Goal: STG - Patient exhibits signs of wound healing. Outcome: Progressing Goal: STG - Patient demonstrates pressure reduction techniques Outcome: Progressing Goal: STG - Patient demonstrates preventative skin care measures Outcome: Progressing Problem: Pain Goal: Patient's pain/discomfort is manageable Description: Assess and monitor patient's pain using appropriate pain scale. Collaborate with interdisciplinary team and initiate plan and interventions as ordered. Re-assess patient's pain level after pain management intervention. Outcome: Progressing Problem: Safety Goal: Patient will be injury free during hospitalization Description: Assess and monitor vitals signs, neurological status including level of consciousness and orientation. Assess patient's risk for falls and implement fall prevention plan of care and interventions per hospital policy. Ensure arm band on, uncluttered walking paths in room, adequate room lighting, call light and overbed table within reach, bed in low position, wheels locked, side rails up per policy, and non-skid footwear provided. Outcome: Progressing Problem: Potential for Developing a Blood Clot Goal: Tissue perfusion is adequate - venous Description: Assess and monitor skin color and temperature, skin integrity, pulses, capillary refill, edema, pain in extremities, Homans' sign, labs (D- dimer), and diagnostic tests (ultrasound, CT scan, VQ scan). Monitor for signs and symptoms of deep vein thrombosis (swelling of calf/thigh, redness, pain, tenderness). Monitor for signs and symptoms of pulmonary embolism (dyspnea, tachypnea, tachycardia). Collaborate with interdisciplinary team and initiate plans and interventions as needed Outcome: Progressing Problem: Daily Care Goal: Daily care needs are met Description: Assess and monitor ability to perform self care and identify potential discharge needs. Outcome: Progressing Problem: Potential for Infection Goal: Remains infection free Description: Assess and monitor vital signs, skin (color, moisture, integrity, turgor), respiratorystatus, urinary and gastrointestinal status, and labs (WBC, cultures). Administer antibiotics and antipyretics as ordered. Ensure aseptic care of all intravenous lines, invasive tubes/drains and wounds. Monitor for signs and symptoms of infection (redness, warmth, discharge, increased body temperature). Wash hands properly before and after each patient care activity. Follow isolation guidelines per hospital protocol/policy. Collaborate with interdisciplinary team and initiate plan and interventions as ordered. Outcome: Progressing Problem: Psychosocial Needs Goal: Demonstrates ability to cope with hospitalization/illness Description: Assess and monitor patients ability to cope with his/her illness. Outcome: Progressing Goal: Collaborate with patient/family/caregiver to identify patient specific goals for this hospitalization Outcome: Progressing Problem: Anxiety Goal: Anxiety is at manageable level Description: Assess and monitor patient's anxiety level. Monitor for signs and symptoms of anxiety both physical and emotional (heart palpitations, chest pain, shortness of breath, headaches, nausea,feeling jumpy, restlessness, irritable, apprehensive). Collaborate with interdisciplinary team and initiate plan and interventions as ordered. Outcome: Progressing Problem: Inadequate Coping Goal: Demonstrates ability to cope effectively Description: Patient is able to verbalize feelings related to emotional state. Outcome: Progressing Goal: Verbalizes adaptive coping mechanisms Description: Able to verbalize adaptive coping mechanisms such as physical activity, distraction, and deep breathing exercises. Outcome: Progressing Goal: Verbalizes personal strengths Description: Spend time with the patient using empathy and active listening skills. Outcome: Progressing Problem: Progressive Mobility Goal: BMAT Level 1 - With full mechanical lifting assistance: Outcome: Progressing Goal: BMAT Level 2 - With 2-person and/or mechanical lifting assistance: Outcome: Progressing Goal: BMAT Level 3 - With 1 to 2-person and/or mechanical lifting assistance: Outcome: Progressing Goal: BMAT Level 4 - With 1-person assistance or mobility aid as needed (walker, cane, crutches): Outcome: Progressing Problem: Discharge Barriers Goal: Patient's discharge needs are met Description: Collaborate with interdisciplinary team and initiate plans and interventions as needed. Outcome: Progressing * Plan of Care - Margareth Madrigal RN - 06/18/2022 12:04 AM EDT Problem: Knowledge Deficit Goal: Patient/family/caregiver demonstrates understanding of disease process, treatment plan, medications, and discharge instructions Description: Complete learning assessment and assess knowledge base. Outcome: Progressing Problem: Potential for Falls Goal: Patient will remain free of falls Description: Assess and monitor vitals signs, neurological status including level of consciousness and orientation. Reassess fall risk per hospital policy. Ensure arm band on, uncluttered walking paths in room, adequate room lighting, call light and overbed table within reach, bed in low position, wheels locked, side rails up per policy, and non-skid footwear provided. Outcome: Progressing Problem: Risk for Falls Goal: No falls during hospitalization Description: Patient will not fall during hospitalization. Outcome: Progressing Problem: Knowledge Deficit Goal: Knowledge - personal safety Description: Patient will verbalize understanding of fall prevention. Outcome: Progressing Problem: Compromised Skin Integrity Goal: LTG - Patient will be free from infection Outcome: Progressing Goal: LTG - Patient will maintain/improve skin integrity through proper skin care techniques Outcome: Progressing Goal: LTG - Patient will demonstrate appropriate pressure relief techniques Outcome: Progressing Goal: LTG - Patient will demonstrate appropriate skin care techniques Outcome: Progressing Goal: LTG - Patient will be free from infection Outcome: Progressing Goal: STG - Patient demonstrates skin care/treatment/dressing change Outcome: Progressing Goal: STG - Patient will maintain good skin integrity Outcome: Progressing Goal: STG - Patient exhibits signs of wound healing. Outcome: Progressing Goal: STG - Patient demonstrates pressure reduction techniques Outcome: Progressing Goal: STG - Patient demonstrates preventative skin care measures Outcome: Progressing Problem: Pain Goal: Patient's pain/discomfort is manageable Description: Assess and monitor patient's pain using appropriate pain scale. Collaborate with interdisciplinary team and initiate plan and interventions as ordered. Re-assess patient's pain level after pain management intervention. Outcome: Progressing Problem: Safety Goal: Patient will be injury free during hospitalization Description: Assess and monitor vitals signs, neurological status including level of consciousness and orientation. Assess patient's risk for falls and implement fall prevention plan of care and interventions per hospital policy. Ensure arm band on, uncluttered walking paths in room, adequate room lighting, call light and overbed table within reach, bed in low position, wheels locked, side rails up per policy, and non-skid footwear provided. Outcome: Progressing Problem: Potential for Developing a Blood Clot Goal: Tissue perfusion is adequate - venous Description: Assess and monitor skin color and temperature, skin integrity, pulses, capillary refill, edema, pain in extremities, Homans' sign, labs (D- dimer), and diagnostic tests (ultrasound, CT scan, VQ scan). Monitor for signs and symptoms of deep vein thrombosis (swelling of calf/thigh, redness, pain, tenderness). Monitor for signs and symptoms of pulmonary embolism (dyspnea, tachypnea, tachycardia). Collaborate with interdisciplinary team and initiate plans and interventions as needed Outcome: Progressing Problem: Daily Care Goal: Daily care needs are met Description: Assess and monitor ability to perform self care and identify potential discharge needs. Outcome: Progressing Problem: Potential for Infection Goal: Remains infection free Description: Assess and monitor vital signs, skin (color, moisture, integrity, turgor), respiratorystatus, urinary and gastrointestinal status, and labs (WBC, cultures). Administer antibiotics and antipyretics as ordered. Ensure aseptic care of all intravenous lines, invasive tubes/drains and wounds. Monitor for signs and symptoms of infection (redness, warmth, discharge, increased body temperature). Wash hands properly before and after each patient care activity. Follow isolation guidelines per hospital protocol/policy. Collaborate with interdisciplinary team and initiate plan and interventions as ordered. Outcome: Progressing Problem: Psychosocial Needs Goal: Demonstrates ability to cope with hospitalization/illness Description: Assess and monitor patients ability to cope with his/her illness. Outcome: Progressing Goal: Collaborate with patient/family/caregiver to identify patient specific goals for this hospitalization Outcome: Progressing Problem: Anxiety Goal: Anxiety is at manageable level Description: Assess and monitor patient's anxiety level. Monitor for signs and symptoms of anxiety both physical and emotional (heart palpitations, chest pain, shortness of breath, headaches, nausea,feeling jumpy, restlessness, irritable, apprehensive). Collaborate with interdisciplinary team and initiate plan and interventions as ordered. Outcome: Progressing Problem: Inadequate Coping Goal: Demonstrates ability to cope effectively Description: Patient is able to verbalize feelings related to emotional state. Outcome: Progressing Goal: Verbalizes adaptive coping mechanisms Description: Able to verbalize adaptive coping mechanisms such as physical activity, distraction, and deep breathing exercises. Outcome: Progressing Goal: Verbalizes personal strengths Description: Spend time with the patient using empathy and active listening skills. Outcome: Progressing Problem: Progressive Mobility Goal: BMAT Level 1 - With full mechanical lifting assistance: Outcome: Progressing Goal: BMAT Level 2 - With 2-person and/or mechanical lifting assistance: Outcome: Progressing Goal: BMAT Level 3 - With 1 to 2-person and/or mechanical lifting assistance: Outcome: Progressing Goal: BMAT Level 4 - With 1-person assistance or mobility aid as needed (walker, cane, crutches): Outcome: Progressing Problem: Discharge Barriers Goal: Patient's discharge needs are met Description: Collaborate with interdisciplinary team and initiate plans and interventions as needed. Outcome: Progressing * Nursing Progress Notes - Margareth Madrigal RN - 06/17/2022 11:45 PM EDT Summary: troponin critical result Pt with critical results of trop 739, was handed over pt was having chest pain; s/p heart cath 06/13, informed Rad[facility] cardio. Pt not in pain when doing shift change. No EKG changes , given Maalox as prescribed. Received a call from Grazyna Castro around 2200, being asked about the trop as they were not notified; Informed him Cardio has been made aware and was advised that Cardio will see pt tomorrow. * Plan of Care - Naomy Arias RN - 06/17/2022 12:24 AM EDT Problem: Knowledge Deficit Goal: Patient/family/caregiver demonstrates understanding of disease process, treatment plan, medications, and discharge instructions Description: Complete learning assessment and assess knowledge base. Outcome: Progressing Problem: Potential for Falls Goal: Patient will remain free of falls Description: Assess and monitor vitals signs, neurological status including level of consciousness and orientation. Reassess fall risk per hospital policy. Ensure arm band on, uncluttered walking paths in room, adequate room lighting, call light and overbed table within reach, bed in low position, wheels locked, side rails up per policy, and non-skid footwear provided. Outcome: Progressing Problem: Risk for Falls Goal: No falls during hospitalization Description: Patient will not fall during hospitalization. Outcome: Progressing Problem: Knowledge Deficit Goal: Knowledge - personal safety Description: Patient will verbalize understanding of fall prevention. Outcome: Progressing Problem: Compromised Skin Integrity Goal: LTG - Patient will be free from infection Outcome: Progressing Goal: LTG - Patient will maintain/improve skin integrity through proper skin care techniques Outcome: Progressing Goal: LTG - Patient will demonstrate appropriate pressure relief techniques Outcome: Progressing Goal: LTG - Patient will demonstrate appropriate skin care techniques Outcome: Progressing Goal: LTG - Patient will be free from infection Outcome: Progressing Goal: STG - Patient demonstrates skin care/treatment/dressing change Outcome: Progressing Goal: STG - Patient will maintain good skin integrity Outcome: Progressing Goal: STG - Patient exhibits signs of wound healing. Outcome: Progressing Goal: STG - Patient demonstrates pressure reduction techniques Outcome: Progressing Goal: STG - Patient demonstrates preventative skin care measures Outcome: Progressing Problem: Pain Goal: Patient's pain/discomfort is manageable Description: Assess and monitor patient's pain using appropriate pain scale. Collaborate with interdisciplinary team and initiate plan and interventions as ordered. Re-assess patient's pain level after pain management intervention. Outcome: Progressing Problem: Safety Goal: Patient will be injury free during hospitalization Description: Assess and monitor vitals signs, neurological status including level of consciousness and orientation. Assess patient's risk for falls and implement fall prevention plan of care and interventions per hospital policy. Ensure arm band on, uncluttered walking paths in room, adequate room lighting, call light and overbed table within reach, bed in low position, wheels locked, side rails up per policy, and non-skid footwear provided. Outcome: Progressing Problem: Potential for Developing a Blood Clot Goal: Tissue perfusion is adequate - venous Description: Assess and monitor skin color and temperature, skin integrity, pulses, capillary refill, edema, pain in extremities, Homans' sign, labs (D- dimer), and diagnostic tests (ultrasound, CT scan, VQ scan). Monitor for signs and symptoms of deep vein thrombosis (swelling of calf/thigh, redness, pain, tenderness). Monitor for signs and symptoms of pulmonary embolism (dyspnea, tachypnea, tachycardia). Collaborate with interdisciplinary team and initiate plans and interventions as needed Outcome: Progressing Problem: Daily Care Goal: Daily care needs are met Description: Assess and monitor ability to perform self care and identify potential discharge needs. Outcome: Progressing Problem: Potential for Infection Goal: Remains infection free Description: Assess and monitor vital signs, skin (color, moisture, integrity, turgor), respiratorystatus, urinary and gastrointestinal status, and labs (WBC, cultures). Administer antibiotics and antipyretics as ordered. Ensure aseptic care of all intravenous lines, invasive tubes/drains and wounds. Monitor for signs and symptoms of infection (redness, warmth, discharge, increased body temperature). Wash hands properly before and after each patient care activity. Follow isolation guidelines per hospital protocol/policy. Collaborate with interdisciplinary team and initiate plan and interventions as ordered. Outcome: Progressing Problem: Psychosocial Needs Goal: Demonstrates ability to cope with hospitalization/illness Description: Assess and monitor patients ability to cope with his/her illness. Outcome: Progressing Goal: Collaborate with patient/family/caregiver to identify patient specific goals for this hospitalization Outcome: Progressing Problem: Anxiety Goal: Anxiety is at manageable level Description: Assess and monitor patient's anxiety level. Monitor for signs and symptoms of anxiety both physical and emotional (heart palpitations, chest pain, shortness of breath, headaches, nausea,feeling jumpy, restlessness, irritable, apprehensive). Collaborate with interdisciplinary team and initiate plan and interventions as ordered. Outcome: Progressing Problem: Inadequate Coping Goal: Demonstrates ability to cope effectively Description: Patient is able to verbalize feelings related to emotional state. Outcome: Progressing Goal: Verbalizes adaptive coping mechanisms Description: Able to verbalize adaptive coping mechanisms such as physical activity, distraction, and deep breathing exercises. Outcome: Progressing Goal: Verbalizes personal strengths Description: Spend time with the patient using empathy and active listening skills. Outcome: Progressing Problem: Progressive Mobility Goal: BMAT Level 1 - With full mechanical lifting assistance: Outcome: Progressing Goal: BMAT Level 2 - With 2-person and/or mechanical lifting assistance: Outcome: Progressing Goal: BMAT Level 3 - With 1 to 2-person and/or mechanical lifting assistance: Outcome: Progressing Goal: BMAT Level 4 - With 1-person assistance or mobility aid as needed (walker, cane, crutches): Outcome: Progressing Problem: Discharge Barriers Goal: Patient's discharge needs are met Description: Collaborate with interdisciplinary team and initiate plans and interventions as needed. Outcome: Progressing * Nursing Progress Notes - Naomy Arias RN - 06/16/2022 10:30 PM EDT Attempt was made to find bladder scanner. 3 different units were checked and no bladder scan works.Pt experiencing no discomfort and voiding plenty (700-800 mL per shift). Will try to locate bladderscanner again in AM. * Plan of Care - Naomy Airas RN - 06/16/2022 1:13 AM EDT Problem: Knowledge Deficit Goal: Patient/family/caregiver demonstrates understanding of disease process, treatment plan, medications, and discharge instructions Description: Complete learning assessment and assess knowledge base. 06/16/2022112 by Naomy Arias RN Outcome: Progressing 06/16/2022112 by Naomy Arias RN Outcome: Progressing Problem: Potential for Falls Goal: Patient will remain free of falls Description: Assess and monitor vitals signs, neurological status including level of consciousness and orientation. Reassess fall risk per hospital policy. Ensure arm band on, uncluttered walking paths in room, adequate room lighting, call light and overbed table within reach, bed in low position, wheels locked, side rails up per policy, and non-skid footwear provided. 06/16/2022112 by Naomy Arias RN Outcome: Progressing 06/16/2022112 by Naomy Arias RN Outcome: Progressing Problem: Risk for Falls Goal: No falls during hospitalization Description: Patient will not fall during hospitalization. 06/16/2022112 by Naomy Arias RN Outcome: Progressing 06/16/2022112 by Naomy Arias RN Outcome: Progressing Problem: Knowledge Deficit Goal: Knowledge - personal safety Description: Patient will verbalize understanding of fall prevention. 06/16/2022112 by Naomy Arias RN Outcome: Progressing 06/16/2022112 by Naomy Arias RN Outcome: Progressing Problem: Compromised Skin Integrity Goal: LTG - Patient will be free from infection 06/16/2022112 by Naomy Arias RN Outcome: Progressing 06/16/2022112 by Naomy Arias RN Outcome: Progressing Goal: LTG - Patient will maintain/improve skin integrity through proper skin care techniques 06/16/2022112 by Naomy Arias RN Outcome: Progressing 06/16/2022112 by Naomy Arias RN Outcome: Progressing Goal: LTG - Patient will demonstrate appropriate pressure relief techniques 06/16/2022112 by Naomy Arias RN Outcome: Progressing 06/16/2022112 by Naomy Arias RN Outcome: Progressing Goal: LTG - Patient will demonstrate appropriate skin care techniques 06/16/2022112 by Naomy Arias RN Outcome: Progressing 06/16/2022112 by Naomy Arias RN Outcome: Progressing Goal: LTG - Patient will be free from infection 06/16/2022112 by Naomy Arias RN Outcome: Progressing 06/16/2022112 by Naomy Arias RN Outcome: Progressing Goal: STG - Patient demonstrates skin care/treatment/dressing change 06/16/2022112 by Naomy Arias RN Outcome: Progressing 06/16/2022112 by Naomy Arias RN Outcome: Progressing Goal: STG - Patient will maintain good skin integrity 06/16/2022112 by Naomy Arias RN Outcome: Progressing 06/16/2022112 by Naomy Arias RN Outcome: Progressing Goal: STG - Patient exhibits signs of wound healing. 06/16/2022112 by Naomy Arias RN Outcome: Progressing 06/16/2022112 by Naomy Arias RN Outcome: Progressing Goal: STG - Patient demonstrates pressure reduction techniques 06/16/2022112 by Naomy Arias RN Outcome: Progressing 06/16/2022112 by Naomy Arias RN Outcome: Progressing Goal: STG - Patient demonstrates preventative skin care measures 06/16/2022112 by Naomy Arias RN Outcome: Progressing 06/16/2022112 by Naomy Arias RN Outcome: Progressing Problem: Pain Goal: Patient's pain/discomfort is manageable Description: Assess and monitor patient's pain using appropriate pain scale. Collaborate with interdisciplinary team and initiate plan and interventions as ordered. Re-assess patient's pain level after pain management intervention. 06/16/2022112 by Naomy Arias RN Outcome: Progressing 06/16/2022112 by Naomy Arias RN Outcome: Progressing Problem: Safety Goal: Patient will be injury free during hospitalization Description: Assess and monitor vitals signs, neurological status including level of consciousness and orientation. Assess patient's risk for falls and implement fall prevention plan of care and interventions per hospital policy. Ensure arm band on, uncluttered walking paths in room, adequate room lighting, call light and overbed table within reach, bed in low position, wheels locked, side rails up per policy, and non-skid footwear provided. 06/16/2022112 by Naomy Arias RN Outcome: Progressing 06/16/2022112 by Naomy Arias RN Outcome: Progressing Problem: Potential for Developing a Blood Clot Goal: Tissue perfusion is adequate - venous Description: Assess and monitor skin color and temperature, skin integrity, pulses, capillary refill, edema, pain in extremities, Homans' sign, labs (D- dimer), and diagnostic tests (ultrasound, CT scan, VQ scan). Monitor for signs and symptoms of deep vein thrombosis (swelling of calf/thigh, redness, pain, tenderness). Monitor for signs and symptoms of pulmonary embolism (dyspnea, tachypnea, tachycardia). Collaborate with interdisciplinary team and initiate plans and interventions as needed 06/16/2022112 by Naomy Arias RN Outcome: Progressing 06/16/2022112 by Naomy Arias RN Outcome: Progressing Problem: Daily Care Goal: Daily care needs are met Description: Assess and monitor ability to perform self care and identify potential discharge needs. 06/16/2022112 by Naomy Arias RN Outcome: Progressing 06/16/2022112 by Naomy Arias RN Outcome: Progressing Problem: Potential for Infection Goal: Remains infection free Description: Assess and monitor vital signs, skin (color, moisture, integrity, turgor), respiratorystatus, urinary and gastrointestinal status, and labs (WBC, cultures). Administer antibiotics and antipyretics as ordered. Ensure aseptic care of all intravenous lines, invasive tubes/drains and wounds. Monitor for signs and symptoms of infection (redness, warmth, discharge, increased body temperature). Wash hands properly before and after each patient care activity. Follow isolation guidelines per hospital protocol/policy. Collaborate with interdisciplinary team and initiate plan and interventions as ordered. 06/16/2022112 by Naomy Arias RN Outcome: Progressing 06/16/2022112 by Naomy Arias RN Outcome: Progressing Problem: Psychosocial Needs Goal: Demonstrates ability to cope with hospitalization/illness Description: Assess and monitor patients ability to cope with his/her illness. 06/16/2022112 by Naomy Arias RN Outcome: Progressing 06/16/2022112 by Naomy Arias RN Outcome: Progressing Goal: Collaborate with patient/family/caregiver to identify patient specific goals for this hospitalization 06/16/2022112 by Naomy Arias RN Outcome: Progressing 06/16/2022112 by Naomy Arias RN Outcome: Progressing Problem: Anxiety Goal: Anxiety is at manageable level Description: Assess and monitor patient's anxiety level. Monitor for signs and symptoms of anxiety both physical and emotional (heart palpitations, chest pain, shortness of breath, headaches, nausea,feeling jumpy, restlessness, irritable, apprehensive). Collaborate with interdisciplinary team and initiate plan and interventions as ordered. 06/16/2022112 by Naomy Arias RN Outcome: Progressing 06/16/2022112 by Naomy Arias RN Outcome: Progressing Problem: Inadequate Coping Goal: Demonstrates ability to cope effectively Description: Patient is able to verbalize feelings related to emotional state. 06/16/2022112 by Naomy Arias RN Outcome: Progressing 06/16/2022112 by Naomy Arias RN Outcome: Progressing Goal: Verbalizes adaptive coping mechanisms Description: Able to verbalize adaptive coping mechanisms such as physical activity, distraction, and deep breathing exercises. 06/16/2022112 by Naomy Arias RN Outcome: Progressing 06/16/2022112 by Naomy Arias RN Outcome: Progressing Goal: Verbalizes personal strengths Description: Spend time with the patient using empathy and active listening skills. 06/16/2022112 by Naomy Arias RN Outcome: Progressing 06/16/2022112 by Naomy Arias RN Outcome: Progressing Problem: Progressive Mobility Goal: BMAT Level 1 - With full mechanical lifting assistance: 06/16/2022112 by Naomy Arias RN Outcome: Progressing 06/16/2022112 by Naomy Arias RN Outcome: Progressing Goal: BMAT Level 2 - With 2-person and/or mechanical lifting assistance: 06/16/2022112 by Naomy Arias RN Outcome: Progressing 06/16/2022112 by Naomy Arias RN Outcome: Progressing Goal: BMAT Level 3 - With 1 to 2-person and/or mechanical lifting assistance: 06/16/2022112 by Naomy Arias RN Outcome: Progressing 06/16/2022112 by Naomy Arias RN Outcome: Progressing Goal: BMAT Level 4 - With 1-person assistance or mobility aid as needed (walker, cane, crutches): 06/16/2022112 by Naomy Arias RN Outcome: Progressing 06/16/2022112 by Naomy Arias RN Outcome: Progressing Problem: Discharge Barriers Goal: Patient's discharge needs are met Description: Collaborate with interdisciplinary team and initiate plans and interventions as needed. Outcome: Progressing * Plan of Care - Naomy Arias RN - 06/14/2022 10:47 PM EDT Problem: Knowledge Deficit Goal: Patient/family/caregiver demonstrates understanding of disease process, treatment plan, medications, and discharge instructions Description: Complete learning assessment and assess knowledge base. Outcome: Progressing Problem: Potential for Falls Goal: Patient will remain free of falls Description: Assess and monitor vitals signs, neurological status including level of consciousness and orientation. Reassess fall risk per hospital policy. Ensure arm band on, uncluttered walking paths in room, adequate room lighting, call light and overbed table within reach, bed in low position, wheels locked, side rails up per policy, and non-skid footwear provided. Outcome: Progressing Problem: Risk for Falls Goal: No falls during hospitalization Description: Patient will not fall during hospitalization. Outcome: Progressing Problem: Knowledge Deficit Goal: Knowledge - personal safety Description: Patient will verbalize understanding of fall prevention. Outcome: Progressing Problem: Compromised Skin Integrity Goal: LTG - Patient will be free from infection Outcome: Progressing Goal: LTG - Patient will maintain/improve skin integrity through proper skin care techniques Outcome: Progressing Goal: LTG - Patient will demonstrate appropriate pressure relief techniques Outcome: Progressing Goal: LTG - Patient will demonstrate appropriate skin care techniques Outcome: Progressing Goal: LTG - Patient will be free from infection Outcome: Progressing Goal: STG - Patient demonstrates skin care/treatment/dressing change Outcome: Progressing Goal: STG - Patient will maintain good skin integrity Outcome: Progressing Goal: STG - Patient exhibits signs of wound healing. Outcome: Progressing Goal: STG - Patient demonstrates pressure reduction techniques Outcome: Progressing Goal: STG - Patient demonstrates preventative skin care measures Outcome: Progressing Problem: Pain Goal: Patient's pain/discomfort is manageable Description: Assess and monitor patient's pain using appropriate pain scale. Collaborate with interdisciplinary team and initiate plan and interventions as ordered. Re-assess patient's pain level after pain management intervention. Outcome: Progressing Problem: Safety Goal: Patient will be injury free during hospitalization Description: Assess and monitor vitals signs, neurological status including level of consciousness and orientation. Assess patient's risk for falls and implement fall prevention plan of care and interventions per hospital policy. Ensure arm band on, uncluttered walking paths in room, adequate room lighting, call light and overbed table within reach, bed in low position, wheels locked, side rails up per policy, and non-skid footwear provided. Outcome: Progressing Problem: Potential for Developing a Blood Clot Goal: Tissue perfusion is adequate - venous Description: Assess and monitor skin color and temperature, skin integrity, pulses, capillary refill, edema, pain in extremities, Homans' sign, labs (D- dimer), and diagnostic tests (ultrasound, CT scan, VQ scan). Monitor for signs and symptoms of deep vein thrombosis (swelling of calf/thigh, redness, pain, tenderness). Monitor for signs and symptoms of pulmonary embolism (dyspnea, tachypnea, tachycardia). Collaborate with interdisciplinary team and initiate plans and interventions as needed Outcome: Progressing Problem: Daily Care Goal: Daily care needs are met Description: Assess and monitor ability to perform self care and identify potential discharge needs. Outcome: Progressing Problem: Potential for Infection Goal: Remains infection free Description: Assess and monitor vital signs, skin (color, moisture, integrity, turgor), respiratorystatus, urinary and gastrointestinal status, and labs (WBC, cultures). Administer antibiotics and antipyretics as ordered. Ensure aseptic care of all intravenous lines, invasive tubes/drains and wounds. Monitor for signs and symptoms of infection (redness, warmth, discharge, increased body temperature). Wash hands properly before and after each patient care activity. Follow isolation guidelines per hospital protocol/policy. Collaborate with interdisciplinary team and initiate plan and interventions as ordered. Outcome: Progressing Problem: Psychosocial Needs Goal: Demonstrates ability to cope with hospitalization/illness Description: Assess and monitor patients ability to cope with his/her illness. Outcome: Progressing Goal: Collaborate with patient/family/caregiver to identify patient specific goals for this hospitalization Outcome: Progressing Problem: Anxiety Goal: Anxiety is at manageable level Description: Assess and monitor patient's anxiety level. Monitor for signs and symptoms of anxiety both physical and emotional (heart palpitations, chest pain, shortness of breath, headaches, nausea,feeling jumpy, restlessness, irritable, apprehensive). Collaborate with interdisciplinary team and initiate plan and interventions as ordered. Outcome: Progressing Problem: Inadequate Coping Goal: Demonstrates ability to cope effectively Description: Patient is able to verbalize feelings related to emotional state. Outcome: Progressing Goal: Verbalizes adaptive coping mechanisms Description: Able to verbalize adaptive coping mechanisms such as physical activity, distraction, and deep breathing exercises. Outcome: Progressing Goal: Verbalizes personal strengths Description: Spend time with the patient using empathy and active listening skills. Outcome: Progressing Problem: Progressive Mobility Goal: BMAT Level 1 - With full mechanical lifting assistance: Outcome: Progressing Goal: BMAT Level 2 - With 2-person and/or mechanical lifting assistance: Outcome: Progressing Goal: BMAT Level 3 - With 1 to 2-person and/or mechanical lifting assistance: Outcome: Progressing Goal: BMAT Level 4 - With 1-person assistance or mobility aid as needed (walker, cane, crutches): Outcome: Progressing Problem: Discharge Barriers Goal: Patient's discharge needs are met Description: Collaborate with interdisciplinary team and initiate plans and interventions as needed. Outcome: Progressing * Plan of Care - Dyana Salgado RN - 06/14/2022 6:59 PM EDT Problem: Knowledge Deficit Goal: Patient/family/caregiver demonstrates understanding of disease process, treatment plan, medications, and discharge instructions Description: Complete learning assessment and assess knowledge base. Outcome: Progressing Problem: Potential for Falls Goal: Patient will remain free of falls Description: Assess and monitor vitals signs, neurological status including level of consciousness and orientation. Reassess fall risk per hospital policy. Ensure arm band on, uncluttered walking paths in room, adequate room lighting, call light and overbed table within reach, bed in low position, wheels locked, side rails up per policy, and non-skid footwear provided. Outcome: Progressing Problem: Risk for Falls Goal: No falls during hospitalization Description: Patient will not fall during hospitalization. Outcome: Progressing Problem: Knowledge Deficit Goal: Knowledge - personal safety Description: Patient will verbalize understanding of fall prevention. Outcome: Progressing Problem: Compromised Skin Integrity Goal: LTG - Patient will be free from infection Outcome: Progressing Goal: LTG - Patient will maintain/improve skin integrity through proper skin care techniques Outcome: Progressing Goal: LTG - Patient will demonstrate appropriate pressure relief techniques Outcome: Progressing Goal: LTG - Patient will demonstrate appropriate skin care techniques Outcome: Progressing Goal: LTG - Patient will be free from infection Outcome: Progressing Goal: STG - Patient demonstrates skin care/treatment/dressing change Outcome: Progressing Goal: STG - Patient will maintain good skin integrity Outcome: Progressing Goal: STG - Patient exhibits signs of wound healing. Outcome: Progressing Goal: STG - Patient demonstrates pressure reduction techniques Outcome: Progressing Goal: STG - Patient demonstrates preventative skin care measures Outcome: Progressing Problem: Pain Goal: Patient's pain/discomfort is manageable Description: Assess and monitor patient's pain using appropriate pain scale. Collaborate with interdisciplinary team and initiate plan and interventions as ordered. Re-assess patient's pain level after pain management intervention. Outcome: Progressing Problem: Safety Goal: Patient will be injury free during hospitalization Description: Assess and monitor vitals signs, neurological status including level of consciousness and orientation. Assess patient's risk for falls and implement fall prevention plan of care and interventions per hospital policy. Ensure arm band on, uncluttered walking paths in room, adequate room lighting, call light and overbed table within reach, bed in low position, wheels locked, side rails up per policy, and non-skid footwear provided. Outcome: Progressing Problem: Potential for Developing a Blood Clot Goal: Tissue perfusion is adequate - venous Description: Assess and monitor skin color and temperature, skin integrity, pulses, capillary refill, edema, pain in extremities, Homans' sign, labs (D- dimer), and diagnostic tests (ultrasound, CT scan, VQ scan). Monitor for signs and symptoms of deep vein thrombosis (swelling of calf/thigh, redness, pain, tenderness). Monitor for signs and symptoms of pulmonary embolism (dyspnea, tachypnea, tachycardia). Collaborate with interdisciplinary team and initiate plans and interventions as needed Outcome: Progressing Problem: Daily Care Goal: Daily care needs are met Description: Assess and monitor ability to perform self care and identify potential discharge needs. Outcome: Progressing Problem: Potential for Infection Goal: Remains infection free Description: Assess and monitor vital signs, skin (color, moisture, integrity, turgor), respiratorystatus, urinary and gastrointestinal status, and labs (WBC, cultures). Administer antibiotics and antipyretics as ordered. Ensure aseptic care of all intravenous lines, invasive tubes/drains and wounds. Monitor for signs and symptoms of infection (redness, warmth, discharge, increased body temperature). Wash hands properly before and after each patient care activity. Follow isolation guidelines per hospital protocol/policy. Collaborate with interdisciplinary team and initiate plan and interventions as ordered. Outcome: Progressing Problem: Psychosocial Needs Goal: Demonstrates ability to cope with hospitalization/illness Description: Assess and monitor patients ability to cope with his/her illness. Outcome: Progressing Goal: Collaborate with patient/family/caregiver to identify patient specific goals for this hospitalization Outcome: Progressing Problem: Anxiety Goal: Anxiety is at manageable level Description: Assess and monitor patient's anxiety level. Monitor for signs and symptoms of anxiety both physical and emotional (heart palpitations, chest pain, shortness of breath, headaches, nausea,feeling jumpy, restlessness, irritable, apprehensive). Collaborate with interdisciplinary team and initiate plan and interventions as ordered. Outcome: Progressing Problem: Inadequate Coping Goal: Demonstrates ability to cope effectively Description: Patient is able to verbalize feelings related to emotional state. Outcome: Progressing Goal: Verbalizes adaptive coping mechanisms Description: Able to verbalize adaptive coping mechanisms such as physical activity, distraction, and deep breathing exercises. Outcome: Progressing Goal: Verbalizes personal strengths Description: Spend time with the patient using empathy and active listening skills. Outcome: Progressing Problem: Progressive Mobility Goal: BMAT Level 1 - With full mechanical lifting assistance: Outcome: Progressing Goal: BMAT Level 2 - With 2-person and/or mechanical lifting assistance: Outcome: Progressing Goal: BMAT Level 3 - With 1 to 2-person and/or mechanical lifting assistance: Outcome: Progressing Goal: BMAT Level 4 - With 1-person assistance or mobility aid as needed (walker, cane, crutches): Outcome: Progressing Problem: Discharge Barriers Goal: Patient's discharge needs are met Description: Collaborate with interdisciplinary team and initiate plans and interventions as needed. Outcome: Progressing * Hospital Course - Sarahi Rajan PA-C - 06/14/2022 8:18 AM EDT Ms. Merritt was admitted with intractable back pain and debility secondary to pain and weakness, some confusion secondary to acute UTI. She has been treated with five days of rocephin for UTI, repeat UAis clear. She underwent successful LT L5-S1 FACETECTOMY AND NEUROFORAMINOTOMY on 06/[address] Odonnell and has had significant reduction in back/leg pain. Unfortunately the morning of 06/13 she developed significant chest pain, acute EKG changes and increased troponin. She was taken to the dental laboratory manager that day with the following results: Successful balloon angioplasty and stenting of subtotal occlusion of proximal circumflex heavily calcified lesion 99% reduced to 10% predilated with shockwave balloon 3.5 and treated with Kiran 3.5 x 15 drug-eluting stent which was postdilated with a 4.0 noncompliant balloon atmospheres She has had episodes of orthostatic hypotension limiting her work with PT. Working to adjust meds so that her orthostasis improve. Fall risk with back surgery and need to ensure she can participate with PT. Partner ordered cortisol. Cosyntropin workup ordered and pending. Per NSGY she can d/c to [facility], need CARD to sign off. Per CM no pre-cert needed so will be a quick transfer to [facility] when ready * Plan of Care - Naomy Arias RN - 06/13/2022 11:41 PM EDT Problem: Knowledge Deficit Goal: Patient/family/caregiver demonstrates understanding of disease process, treatment plan, medications, and discharge instructions Description: Complete learning assessment and assess knowledge base. Outcome: Progressing Problem: Potential for Falls Goal: Patient will remain free of falls Description: Assess and monitor vitals signs, neurological status including level of consciousness and orientation. Reassess fall risk per hospital policy. Ensure arm band on, uncluttered walking paths in room, adequate room lighting, call light and overbed table within reach, bed in low position, wheels locked, side rails up per policy, and non-skid footwear provided. Outcome: Progressing Problem: Risk for Falls Goal: No falls during hospitalization Description: Patient will not fall during hospitalization. Outcome: Progressing Problem: Knowledge Deficit Goal: Knowledge - personal safety Description: Patient will verbalize understanding of fall prevention. Outcome: Progressing Problem: Compromised Skin Integrity Goal: LTG - Patient will be free from infection Outcome: Progressing Goal: LTG - Patient will maintain/improve skin integrity through proper skin care techniques Outcome: Progressing Goal: LTG - Patient will demonstrate appropriate pressure relief techniques Outcome: Progressing Goal: LTG - Patient will demonstrate appropriate skin care techniques Outcome: Progressing Goal: LTG - Patient will be free from infection Outcome: Progressing Goal: STG - Patient demonstrates skin care/treatment/dressing change Outcome: Progressing Goal: STG - Patient will maintain good skin integrity Outcome: Progressing Goal: STG - Patient exhibits signs of wound healing. Outcome: Progressing Goal: STG - Patient demonstrates pressure reduction techniques Outcome: Progressing Goal: STG - Patient demonstrates preventative skin care measures Outcome: Progressing Problem: Pain Goal: Patient's pain/discomfort is manageable Description: Assess and monitor patient's pain using appropriate pain scale. Collaborate with interdisciplinary team and initiate plan and interventions as ordered. Re-assess patient's pain level after pain management intervention. Outcome: Progressing Problem: Safety Goal: Patient will be injury free during hospitalization Description: Assess and monitor vitals signs, neurological status including level of consciousness and orientation. Assess patient's risk for falls and implement fall prevention plan of care and interventions per hospital policy. Ensure arm band on, uncluttered walking paths in room, adequate room lighting, call light and overbed table within reach, bed in low position, wheels locked, side rails up per policy, and non-skid footwear provided. Outcome: Progressing Problem: Potential for Developing a Blood Clot Goal: Tissue perfusion is adequate - venous Description: Assess and monitor skin color and temperature, skin integrity, pulses, capillary refill, edema, pain in extremities, Homans' sign, labs (D- dimer), and diagnostic tests (ultrasound, CT scan, VQ scan). Monitor for signs and symptoms of deep vein thrombosis (swelling of calf/thigh, redness, pain, tenderness). Monitor for signs and symptoms of pulmonary embolism (dyspnea, tachypnea, tachycardia). Collaborate with interdisciplinary team and initiate plans and interventions as needed Outcome: Progressing Problem: Daily Care Goal: Daily care needs are met Description: Assess and monitor ability to perform self care and identify potential discharge needs. Outcome: Progressing Problem: Potential for Infection Goal: Remains infection free Description: Assess and monitor vital signs, skin (color, moisture, integrity, turgor), respiratorystatus, urinary and gastrointestinal status, and labs (WBC, cultures). Administer antibiotics and antipyretics as ordered. Ensure aseptic care of all intravenous lines, invasive tubes/drains and wounds. Monitor for signs and symptoms of infection (redness, warmth, discharge, increased body temperature). Wash hands properly before and after each patient care activity. Follow isolation guidelines per hospital protocol/policy. Collaborate with interdisciplinary team and initiate plan and interventions as ordered. Outcome: Progressing Problem: Psychosocial Needs Goal: Demonstrates ability to cope with hospitalization/illness Description: Assess and monitor patients ability to cope with his/her illness. Outcome: Progressing Goal: Collaborate with patient/family/caregiver to identify patient specific goals for this hospitalization Outcome: Progressing Problem: Anxiety Goal: Anxiety is at manageable level Description: Assess and monitor patient's anxiety level. Monitor for signs and symptoms of anxiety both physical and emotional (heart palpitations, chest pain, shortness of breath, headaches, nausea,feeling jumpy, restlessness, irritable, apprehensive). Collaborate with interdisciplinary team and initiate plan and interventions as ordered. Outcome: Progressing Problem: Inadequate Coping Goal: Demonstrates ability to cope effectively Description: Patient is able to verbalize feelings related to emotional state. Outcome: Progressing Goal: Verbalizes adaptive coping mechanisms Description: Able to verbalize adaptive coping mechanisms such as physical activity, distraction, and deep breathing exercises. Outcome: Progressing Goal: Verbalizes personal strengths Description: Spend time with the patient using empathy and active listening skills. Outcome: Progressing Problem: Progressive Mobility Goal: BMAT Level 1 - With full mechanical lifting assistance: Outcome: Progressing Goal: BMAT Level 2 - With 2-person and/or mechanical lifting assistance: Outcome: Progressing Goal: BMAT Level 3 - With 1 to 2-person and/or mechanical lifting assistance: Outcome: Progressing Goal: BMAT Level 4 - With 1-person assistance or mobility aid as needed (walker, cane, crutches): Outcome: Progressing Problem: Discharge Barriers Goal: Patient's discharge needs are met Description: Collaborate with interdisciplinary team and initiate plans and interventions as needed. Outcome: Progressing * Significant Event - Aayush Chew DO - 06/13/2022 4:49 AM EDT 4:30 nursing called saying patient having active chest pain EKG was obtained shows very significantST depression in leads II, aVR, V1, I, and AVL there is some ST elevation in lead III but not present in contiguous leads. I am going to go ahead and start treatment for NSTEMI with heparin drip and loading aspirin and brilinta. Placed Cardiology consult for ischemic work up needed for left heart catheterization. Will trend troponin x3. 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 female with a previous history of an L3- L5 laminectomy fusion who did well from surgery. 2 weeks ago she developed severe left lower extremity pain radiating from her buttock into the hip and down the back of the leg. She had received an injection by pain management with no benefit. She was recently admitted for severe incapacitating pain as well as nausea vomiting and confusion. She was found to have a urinary tract infection. The risks, benefits, and alternatives of the above procedure were discussed and the patient has elected to proceed. Surgeons: Surgeon(s) and Role: * Edith Odonnell MD - Primary Taya Ramos PA-C Findings: see operative report Procedure Details: After the patient was identified in the preoperative area by name and medical record number consent was done to be in chart. Take back to the operating room general endotracheal anesthesia was initiated by anesthesiology service. She is placed in the operative table in the prone position. All pressure points padded SCDs were in place. The L5-S1 levels were visualized using intraoperative fluoroscopy. A midline incision was drawn. Was injected lidocaine with epinephrine. Patient was prepped and draped in usual sterile fashion. A timeout was performed was correct. Confirmation of perioperative antibiotics was given. Incision was opened sharply with a 15 blade. Is carried down soft tissue using Bovie electrocautery. Self-retaining tractor was used to facilitate exposure. We continued the exposure down along the sacrum and out laterally. We exposed the inferior portion ofthe shelia on the left side. We able to advance down the to the disc space. Alton instruments wereplaced without complication. We used the AMA drill bit to perform our facetectomy. We removed bone using #2 #3 Kerrison punch. We then placed medial retraction on the thecal sac. The microscope was brought into the field to facilitate our microsurgical technique. We did find quite calcified dense disc space and entered using an 11 blade. Calcified disc was removed using pituitary instruments. Once we had debulk the nerve we could advance the Isanti instrument out along the nerve root. We placed Depo-Medrol in the field. We then placed a little bit of Floseal. We then closed the deep muscularlayers using interrupted 0 Vicryl suture for the fascial layer was then closed using interrupted 0 Vicryl sutures in a watertight fashion. Marcaine was injected. We closed the deep tissue layers using interrupted 2-0 Vicryl suture. Subcuticular space was closed using a running Monocryl followed by Dermabond. All sharps needle sponges are correct at the end the case. No intraoperative complications were noted. Taya Ramos PA-C was present and scrubbed for the entirety of this procedure. Anesthesia: General Estimated Blood Loss: * No values recorded between 06/12/2022 10:40 AM and 06/12/2022 12:25 PM * Total IV Fluids: 100 mL Drains: * No LDAs found * Specimens: Specimens (From admission, onward) None Complications: None * No complications entered in OR log * Disposition: PACU - hemodynamically stable. Condition: stable Attending Attestation: I was present and scrubbed for the entire procedure. * Plan of Care - Nathaly Adler RN - 06/11/2022 5:44 PM EDT Problem: Knowledge Deficit Goal: Patient/family/caregiver demonstrates understanding of disease process, treatment plan, medications, and discharge instructions Description: Complete learning assessment and assess knowledge base. Outcome: Progressing Problem: Potential for Falls Goal: Patient will remain free of falls Description: Assess and monitor vitals signs, neurological status including level of consciousness and orientation. Reassess fall risk per hospital policy. Ensure arm band on, uncluttered walking paths in room, adequate room lighting, call light and overbed table within reach, bed in low position, wheels locked, side rails up per policy, and non-skid footwear provided. Outcome: Progressing Problem: Risk for Falls Goal: No falls during hospitalization Description: Patient will not fall during hospitalization. Outcome: Progressing Problem: Knowledge Deficit Goal: Knowledge - personal safety Description: Patient will verbalize understanding of fall prevention. Outcome: Progressing Problem: Compromised Skin Integrity Goal: LTG - Patient will be free from infection Outcome: Progressing Goal: LTG - Patient will maintain/improve skin integrity through proper skin care techniques Outcome: Progressing Goal: LTG - Patient will demonstrate appropriate pressure relief techniques Outcome: Progressing Goal: LTG - Patient will demonstrate appropriate skin care techniques Outcome: Progressing Goal: LTG - Patient will be free from infection Outcome: Progressing Goal: STG - Patient demonstrates skin care/treatment/dressing change Outcome: Progressing Goal: STG - Patient will maintain good skin integrity Outcome: Progressing Goal: STG - Patient exhibits signs of wound healing. Outcome: Progressing Goal: STG - Patient demonstrates pressure reduction techniques Outcome: Progressing Goal: STG - Patient demonstrates preventative skin care measures Outcome: Progressing Problem: Pain Goal: Patient's pain/discomfort is manageable Description: Assess and monitor patient's pain using appropriate pain scale. Collaborate with interdisciplinary team and initiate plan and interventions as ordered. Re-assess patient's pain level after pain management intervention. Outcome: Progressing Intervention: Asssess pain level utilizing 0-10 scale Recent Flowsheet Documentation Taken 06/11/2022 1056 by Nathaly Adler RN Pain Score: Ten Intervention: Include patient/family/caregiver in decisions related to pain management Recent Flowsheet Documentation Taken 06/11/2022 1428 by Nathaly Adler RN Patient's Stated Comfort Goal: 3 Problem: Safety Goal: Patient will be injury free during hospitalization Description: Assess and monitor vitals signs, neurological status including level of consciousness and orientation. Assess patient's risk for falls and implement fall prevention plan of care and interventions per hospital policy. Ensure arm band on, uncluttered walking paths in room, adequate room lighting, call light and overbed table within reach, bed in low position, wheels locked, side rails up per policy, and non-skid footwear provided. Outcome: Progressing Intervention: Assess patient's risk for falls and implement fall prevention plan of care per policy Recent Flowsheet Documentation Taken 06/11/2022 0900 by Nathaly Adler RN History of Falling, Immediate or Within 3 Months: 0 Secondary Diagnosis: 15 Ambulatory Aids: 0 Intravenous Therapy/Heparin/Saline Lock: 20 Gait/Transferrin Mental Status: 0 Score: 55 Intervention: Provide and maintain safe environment Recent Flowsheet Documentation Taken 06/11/2022 1600 by Nathaly Adler RN Side Rails/Bed Safety: 04/21 Taken 06/11/2022 1400 by Nathaly Adler RN Side Rails/Bed Safety: 04/21 Taken 06/11/2022 1200 by Nathaly Adler RN Side Rails/Bed Safety: 04/21 Taken 06/11/2022 0900 by Nathaly Adler RN Side Rails/Bed Safety: 04/21 Intervention: Use appropriate transfer methods Recent Flowsheet Documentation Taken 06/11/2022 09 by Nathaly Adler RN Level of Assistance: Moderate assist, patient does 50-74% Intervention: Ensure appropriate safety devices are available at the bedside Recent Flowsheet Documentation Taken 06/11/2022 1400 by Nathaly Adler RN Safety Equipment at Bedside: O2 Regulator Taken 06/11/2022 1200 by Nathaly Adler RN Safety Equipment at Bedside: O2 Regulator Taken 06/11/2022 0900 by Nathaly Adler RN Safety Equipment at Bedside: O2 Regulator Problem: Potential for Developing a Blood Clot Goal: Tissue perfusion is adequate - venous Description: Assess and monitor skin color and temperature, skin integrity, pulses, capillary refill, edema, pain in extremities, Homans' sign, labs (D- dimer), and diagnostic tests (ultrasound, CT scan, VQ scan). Monitor for signs and symptoms of deep vein thrombosis (swelling of calf/thigh, redness, pain, tenderness). Monitor for signs and symptoms of pulmonary embolism (dyspnea, tachypnea, tachycardia). Collaborate with interdisciplinary team and initiate plans and interventions as needed Outcome: Progressing Problem: Daily Care Goal: Daily care needs are met Description: Assess and monitor ability to perform self care and identify potential discharge needs. Outcome: Progressing Intervention: Assess skin integrity/risk for skin breakdown and implement skin integrity plan of care and interventions per policy Recent Flowsheet Documentation Taken 06/11/2022 09 by Nathaly Adler RN Mobility Interventions: Pillow(s) Active ROM Passive ROM Off loading of heel(s) while in bed Consider PT/OT consult Moisture Interventions: Turn and reposition Activity Interventions: Consider PT/OT consult Pillow(s) Active ROM Passive ROM Off loading of heel(s) while in bed Friction and Shear Interventions: Off loading of heel(s) while in bed Sensory Perceptions: 4 Moisture: 3 Activity: 1 Mobility: 3 Nutrition: 3 Friction and Shear: 2 Bret Scale Score: 16 Integumentary (WDL): WDL Intervention: Provide oral care Recent Flowsheet Documentation Taken 06/11/2022 0900 by Nathaly Adler RN Oral Care: Lip moisturizer applied Problem: Potential for Infection Goal: Remains infection free Description: Assess and monitor vital signs, skin (color, moisture, integrity, turgor), respiratorystatus, urinary and gastrointestinal status, and labs (WBC, cultures). Administer antibiotics and antipyretics as ordered. Ensure aseptic care of all intravenous lines, invasive tubes/drains and wounds. Monitor for signs and symptoms of infection (redness, warmth, discharge, increased body temperature). Wash hands properly before and after each patient care activity. Follow isolation guidelines per hospital protocol/policy. Collaborate with interdisciplinary team and initiate plan and interventions as ordered. Outcome: Progressing Problem: Psychosocial Needs Goal: Demonstrates ability to cope with hospitalization/illness Description: Assess and monitor patients ability to cope with his/her illness. Outcome: Progressing Goal: Collaborate with patient/family/caregiver to identify patient specific goals for this hospitalization Outcome: Progressing Problem: Anxiety Goal: Anxiety is at manageable level Description: Assess and monitor patient's anxiety level. Monitor for signs and symptoms of anxiety both physical and emotional (heart palpitations, chest pain, shortness of breath, headaches, nausea,feeling jumpy, restlessness, irritable, apprehensive). Collaborate with interdisciplinary team and initiate plan and interventions as ordered. Outcome: Progressing Problem: Inadequate Coping Goal: Demonstrates ability to cope effectively Description: Patient is able to verbalize feelings related to emotional state. Outcome: Progressing Goal: Verbalizes adaptive coping mechanisms Description: Able to verbalize adaptive coping mechanisms such as physical activity, distraction, and deep breathing exercises. Outcome: Progressing Goal: Verbalizes personal strengths Description: Spend time with the patient using empathy and active listening skills. Outcome: Progressing Problem: Progressive Mobility Goal: BMAT Level 1 - With full mechanical lifting assistance: Outcome: Progressing Goal: BMAT Level 2 - With 2-person and/or mechanical lifting assistance: Outcome: Progressing Goal: BMAT Level 3 - With 1 to 2-person and/or mechanical lifting assistance: Outcome: Progressing Goal: BMAT Level 4 - With 1-person assistance or mobility aid as needed (walker, cane, crutches): Outcome: Progressing Problem: Discharge Barriers Goal: Patient's discharge needs are met Description: Collaborate with interdisciplinary team and initiate plans and interventions as needed. Outcome: Progressing Problem: Knowledge Deficit Goal: Patient/family/caregiver demonstrates understanding of disease process, treatment plan, medications, and discharge instructions Description: Complete learning assessment and assess knowledge base. Outcome: Progressing Problem: Potential for Falls Goal: Patient will remain free of falls Description: Assess and monitor vitals signs, neurological status including level of consciousness and orientation. Reassess fall risk per hospital policy. Ensure arm band on, uncluttered walking paths in room, adequate room lighting, call light and overbed table within reach, bed in low position, wheels locked, side rails up per policy, and non-skid footwear provided. Outcome: Progressing Problem: Risk for Falls Goal: No falls during hospitalization Description: Patient will not fall during hospitalization. Outcome: Progressing Problem: Knowledge Deficit Goal: Knowledge - personal safety Description: Patient will verbalize understanding of fall prevention. Outcome: Progressing Problem: Compromised Skin Integrity Goal: LTG - Patient will be free from infection Outcome: Progressing Goal: LTG - Patient will maintain/improve skin integrity through proper skin care techniques Outcome: Progressing Goal: LTG - Patient will demonstrate appropriate pressure relief techniques Outcome: Progressing Goal: LTG - Patient will demonstrate appropriate skin care techniques Outcome: Progressing Goal: LTG - Patient will be free from infection Outcome: Progressing Goal: STG - Patient demonstrates skin care/treatment/dressing change Outcome: Progressing Goal: STG - Patient will maintain good skin integrity Outcome: Progressing Goal: STG - Patient exhibits signs of wound healing. Outcome: Progressing Goal: STG - Patient demonstrates pressure reduction techniques Outcome: Progressing Goal: STG - Patient demonstrates preventative skin care measures Outcome: Progressing Problem: Pain Goal: Patient's pain/discomfort is manageable Description: Assess and monitor patient's pain using appropriate pain scale. Collaborate with interdisciplinary team and initiate plan and interventions as ordered. Re-assess patient's pain level after pain management intervention. Outcome: Progressing Problem: Safety Goal: Patient will be injury free during hospitalization Description: Assess and monitor vitals signs, neurological status including level of consciousness and orientation. Assess patient's risk for falls and implement fall prevention plan of care and interventions per hospital policy. Ensure arm band on, uncluttered walking paths in room, adequate room lighting, call light and overbed table within reach, bed in low position, wheels locked, side rails up per policy, and non-skid footwear provided. Outcome: Progressing Problem: Potential for Developing a Blood Clot Goal: Tissue perfusion is adequate - venous Description: Assess and monitor skin color and temperature, skin integrity, pulses, capillary refill, edema, pain in extremities, Homans' sign, labs (D- dimer), and diagnostic tests (ultrasound, CT scan, VQ scan). Monitor for signs and symptoms of deep vein thrombosis (swelling of calf/thigh, redness, pain, tenderness). Monitor for signs and symptoms of pulmonary embolism (dyspnea, tachypnea, tachycardia). Collaborate with interdisciplinary team and initiate plans and interventions as needed Outcome: Progressing Problem: Daily Care Goal: Daily care needs are met Description: Assess and monitor ability to perform self care and identify potential discharge needs. Outcome: Progressing Problem: Potential for Infection Goal: Remains infection free Description: Assess and monitor vital signs, skin (color, moisture, integrity, turgor), respiratorystatus, urinary and gastrointestinal status, and labs (WBC, cultures). Administer antibiotics and antipyretics as ordered. Ensure aseptic care of all intravenous lines, invasive tubes/drains and wounds. Monitor for signs and symptoms of infection (redness, warmth, discharge, increased body temperature). Wash hands properly before and after each patient care activity. Follow isolation guidelines per hospital protocol/policy. Collaborate with interdisciplinary team and initiate plan and interventions as ordered. Outcome: Progressing Problem: Psychosocial Needs Goal: Demonstrates ability to cope with hospitalization/illness Description: Assess and monitor patients ability to cope with his/her illness. Outcome: Progressing Goal: Collaborate with patient/family/caregiver to identify patient specific goals for this hospitalization Outcome: Progressing Problem: Anxiety Goal: Anxiety is at manageable level Description: Assess and monitor patient's anxiety level. Monitor for signs and symptoms of anxiety both physical and emotional (heart palpitations, chest pain, shortness of breath, headaches, nausea,feeling jumpy, restlessness, irritable, apprehensive). Collaborate with interdisciplinary team and initiate plan and interventions as ordered. Outcome: Progressing Problem: Inadequate Coping Goal: Demonstrates ability to cope effectively Description: Patient is able to verbalize feelings related to emotional state. Outcome: Progressing Goal: Verbalizes adaptive coping mechanisms Description: Able to verbalize adaptive coping mechanisms such as physical activity, distraction, and deep breathing exercises. Outcome: Progressing Goal: Verbalizes personal strengths Description: Spend time with the patient using empathy and active listening skills. Outcome: Progressing Problem: Progressive Mobility Goal: BMAT Level 1 - With full mechanical lifting assistance: Outcome: Progressing Goal: BMAT Level 2 - With 2-person and/or mechanical lifting assistance: Outcome: Progressing Goal: BMAT Level 3 - With 1 to 2-person and/or mechanical lifting assistance: Outcome: Progressing Goal: BMAT Level 4 - With 1-person assistance or mobility aid as needed (walker, cane, crutches): Outcome: Progressing Problem: Discharge Barriers Goal: Patient's discharge needs are met Description: Collaborate with interdisciplinary team and initiate plans and interventions as needed. Outcome: Progressing * Plan of Care - Carlene Ernst RN - 06/10/2022 11:08 AM EDT Problem: Knowledge Deficit Goal: Patient/family/caregiver demonstrates understanding of disease process, treatment plan, medications, and discharge instructions Description: Complete learning assessment and assess knowledge base. Outcome: Progressing Problem: Potential for Falls Goal: Patient will remain free of falls Description: Assess and monitor vitals signs, neurological status including level of consciousness and orientation. Reassess fall risk per hospital policy. Ensure arm band on, uncluttered walking paths in room, adequate room lighting, call light and overbed table within reach, bed in low position, wheels locked, side rails up per policy, and non-skid footwear provided. Outcome: Progressing Problem: Risk for Falls Goal: No falls during hospitalization Description: Patient will not fall during hospitalization. Outcome: Progressing Problem: Knowledge Deficit Goal: Knowledge - personal safety Description: Patient will verbalize understanding of fall prevention. Outcome: Progressing Problem: Compromised Skin Integrity Goal: LTG - Patient will be free from infection Outcome: Progressing Goal: LTG - Patient will maintain/improve skin integrity through proper skin care techniques Outcome: Progressing Goal: LTG - Patient will demonstrate appropriate pressure relief techniques Outcome: Progressing Goal: LTG - Patient will demonstrate appropriate skin care techniques Outcome: Progressing Goal: LTG - Patient will be free from infection Outcome: Progressing Goal: STG - Patient demonstrates skin care/treatment/dressing change Outcome: Progressing Goal: STG - Patient will maintain good skin integrity Outcome: Progressing Goal: STG - Patient exhibits signs of wound healing. Outcome: Progressing Goal: STG - Patient demonstrates pressure reduction techniques Outcome: Progressing Goal: STG - Patient demonstrates preventative skin care measures Outcome: Progressing Problem: Pain Goal: Patient's pain/discomfort is manageable Description: Assess and monitor patient's pain using appropriate pain scale. Collaborate with interdisciplinary team and initiate plan and interventions as ordered. Re-assess patient's pain level after pain management intervention. Outcome: Progressing Problem: Safety Goal: Patient will be injury free during hospitalization Description: Assess and monitor vitals signs, neurological status including level of consciousness and orientation. Assess patient's risk for falls and implement fall prevention plan of care and interventions per hospital policy. Ensure arm band on, uncluttered walking paths in room, adequate room lighting, call light and overbed table within reach, bed in low position, wheels locked, side rails up per policy, and non-skid footwear provided. Outcome: Progressing Problem: Potential for Developing a Blood Clot Goal: Tissue perfusion is adequate - venous Description: Assess and monitor skin color and temperature, skin integrity, pulses, capillary refill, edema, pain in extremities, Homans' sign, labs (D- dimer), and diagnostic tests (ultrasound, CT scan, VQ scan). Monitor for signs and symptoms of deep vein thrombosis (swelling of calf/thigh, redness, pain, tenderness). Monitor for signs and symptoms of pulmonary embolism (dyspnea, tachypnea, tachycardia). Collaborate with interdisciplinary team and initiate plans and interventions as needed Outcome: Progressing Problem: Daily Care Goal: Daily care needs are met Description: Assess and monitor ability to perform self care and identify potential discharge needs. Outcome: Progressing Problem: Potential for Infection Goal: Remains infection free Description: Assess and monitor vital signs, skin (color, moisture, integrity, turgor), respiratorystatus, urinary and gastrointestinal status, and labs (WBC, cultures). Administer antibiotics and antipyretics as ordered. Ensure aseptic care of all intravenous lines, invasive tubes/drains and wounds. Monitor for signs and symptoms of infection (redness, warmth, discharge, increased body temperature). Wash hands properly before and after each patient care activity. Follow isolation guidelines per hospital protocol/policy. Collaborate with interdisciplinary team and initiate plan and interventions as ordered. Outcome: Progressing Problem: Psychosocial Needs Goal: Demonstrates ability to cope with hospitalization/illness Description: Assess and monitor patients ability to cope with his/her illness. Outcome: Progressing Goal: Collaborate with patient/family/caregiver to identify patient specific goals for this hospitalization Outcome: Progressing Flowsheets (Taken 06/10/2022 1100) Cultural Requests During Hospitalization: None Spiritual Requests During Hospitalization: None Problem: Anxiety Goal: Anxiety is at manageable level Description: Assess and monitor patient's anxiety level. Monitor for signs and symptoms of anxiety both physical and emotional (heart palpitations, chest pain, shortness of breath, headaches, nausea,feeling jumpy, restlessness, irritable, apprehensive). Collaborate with interdisciplinary team and initiate plan and interventions as ordered. Outcome: Progressing Problem: Inadequate Coping Goal: Demonstrates ability to cope effectively Description: Patient is able to verbalize feelings related to emotional state. Outcome: Progressing Goal: Verbalizes adaptive coping mechanisms Description: Able to verbalize adaptive coping mechanisms such as physical activity, distraction, and deep breathing exercises. Outcome: Progressing Goal: Verbalizes personal strengths Description: Spend time with the patient using empathy and active listening skills. Outcome: Progressing Problem: Progressive Mobility Goal: BMAT Level 1 - With full mechanical lifting assistance: Outcome: Progressing Goal: BMAT Level 2 - With 2-person and/or mechanical lifting assistance: Outcome: Progressing Goal: BMAT Level 3 - With 1 to 2-person and/or mechanical lifting assistance: Outcome: Progressing Goal: BMAT Level 4 - With 1-person assistance or mobility aid as needed (walker, cane, crutches): Outcome: Progressing Problem: Discharge Barriers Goal: Patient's discharge needs are met Description: Collaborate with interdisciplinary team and initiate plans and interventions as needed. Outcome: Progressing documented in this encounter Plan of Treatment Not on file documented as of this encounter Procedures Procedure Name Priority Date/Time Associated Diagnosis Comments CBC W/ AUTO DIFF Routine 06/28/2022 5:26 AM EDT COMPREHENSIVE METABOLIC PANEL Routine 06/28/2022 5:26 AM EDT CBC W/ AUTO DIFF Routine 06/27/2022 8:56 AM EDT COMPREHENSIVE METABOLIC PANEL Routine 06/27/2022 8:56 AM EDT BASIC METABOLIC PANEL Routine 06/26/2022 10:56 AM EDT NOVA GLUCOSE POC Routine 06/24/2022 4:19 PM EDT NOVA GLUCOSE POC Routine 06/24/2022 10:53 AM EDT NOVA GLUCOSE POC Routine 06/24/2022 6:03 AM EDT T4, FREE Routine 06/23/2022 5:39 PM EDT CORTISOL STAT 06/23/2022 10:24 AM EDT CORTISOL STAT 06/23/2022 9:25 AM EDT CBC W/ AUTO DIFF Routine 06/23/2022 7:48 AM EDT CORTISOL Routine 06/23/2022 7:48 AM EDT BASIC METABOLIC PANEL Routine 06/23/2022 7:48 AM EDT CBC W/ AUTO DIFF Routine 06/22/2022 5:36 AM EDT MANUAL DIFFERENTIAL Routine 06/22/2022 5:36 AM EDT COMPREHENSIVE METABOLIC PANEL Routine 06/22/2022 5:36 AM EDT CORTISOL EVELINE 06/21/2022 4:26 PM EDT CORTISOL Routine 06/21/2022 8:16 AM EDT CBC HEMOGRAM (SJ-BKR) Routine 06/21/2022 6:53 AM EDT COMPREHENSIVE METABOLIC PANEL Routine 06/21/2022 6:53 AM EDT BASIC METABOLIC PANEL Routine 06/19/2022 5:40 AM EDT ADRENOCORTICOTROPIC HORMONE(SENDOUT) Routine 06/18/2022 7:54 AM EDT BASIC METABOLIC PANEL Routine 06/18/2022 7:54 AM EDT ALDOSTERONE(SENDOUT) Routine 06/18/2022 7:53 AM EDT CORTISOL Routine 06/18/2022 7:53 AM EDT CBC W/ AUTO DIFF Routine 06/17/2022 9:42 PM EDT HIGH SENSITIVITY TROPONIN I STAT 06/17/2022 9:42 PM EDT HIGH SENSITIVITY TROPONIN I STAT 06/17/2022 6:34 PM EDT FS_MODEL_IP_ECG 12-LEAD Routine 06/18/19 6:00 PM EDT TSH W REFLEX FT4 Add-On 06/17/2022 6:01 AM EDT BASIC METABOLIC PANEL Routine 06/17/2022 6:01 AM EDT CORTISOL Routine 06/17/2022 6:00 AM EDT BASIC METABOLIC PANEL STAT 06/16/2022 12:46 PM EDT CBC W/ AUTO DIFF Routine 06/16/2022 5:42 AM EDT URINALYSIS, REFLEX MICROSCOPIC AND CULTURE IF INDICATED Routine 06/15/2022 11:19 AM EDT CBC W/ AUTO DIFF Routine 06/15/2022 6:47 AM EDT FS_MODEL_IP_ECG 12-LEAD Routine 06/15/19 8:17 AM EDT CBC W/ AUTO DIFF Routine 06/14/2022 5:27 AM EDT PROBNP Routine 06/14/2022 5:27 AM EDT BASIC METABOLIC PANEL Routine 06/14/2022 5:27 AM EDT FS_MODEL_IP_ECG 12-LEAD STAT 06/14/19 2:26 PM EDT CARDIAC CATH - LEFT HEART CATH W/ POSSIBLE INTERVENTION Routine 06/13/2022 12:20 PM EDT POCT-ACT Routine 06/13/2022 11:48 AM EDT POCT-ACT Routine 06/13/2022 11:00 AM EDT US GUIDED VASCULAR ACCESS Routine 2022 11:00 AM EDT PTT HEPARIN PROTOCOL Routine 06/13/2022 9:25 AM EDT HIGH SENSITIVITY TROPONIN I Routine 06/13/2022 9:25 AM EDT CBC W/ AUTO DIFF Routine 06/13/2022 5:24 AM EDT PTT HEPARIN PROTOCOL STAT 06/13/2022 5:24 AM EDT HIGH SENSITIVITY TROPONIN I STAT 06/13/2022 5:24 AM EDT PROTHROMBIN TIME/INR Routine 06/13/2022 5:24 AM EDT XR CHEST AP PORTABLE STAT 06/13/2022 4:37 AM EDT HIGH SENSITIVITY TROPONIN I STAT 06/13/2022 4:29 AM EDT PROBNP STAT 06/13/2022 4:29 AM EDT MAGNESIUM STAT 06/13/2022 4:29 AM EDT COMPREHENSIVE METABOLIC PANEL STAT 06/13/2022 4:29 AM EDT FS_MODEL_IP_ECG 12-LEAD STAT 06/14/19 4:21 AM EDT NOVA GLUCOSE POC Routine 06/12/2022 2:42 PM EDT FL < 1 HOUR Routine 06/12/2022 12:30 PM EDT LAMINECTOMY, SPINE, LUMBAR 06/12/2022 10:40 AM EDT Spondylosis with myelopathy, lumbar region Case Notes In preop, patient denied having dentures. 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 Both are noting this incident in patient record, will recommend postoperative teaching for patient safety. Janelle Hatfield RN. ECHO COMPLETE (DOPPLER / COLOR) WO CONTRAST Routine 06/12/2022 8:10 AM EDT CBC HEMOGRAM (SJ-BKR) STAT 06/11/2022 6:51 AM EDT BASIC METABOLIC PANEL STAT 06/11/2022 6:51 AM EDT HIGH SENSITIVITY TROPONIN I STAT 06/10/2022 7:42 AM EDT URINALYSIS W/ MICROSCOPIC STAT 2022 4:35 AM EDT HIGH SENSITIVITY TROPONIN I STAT 06/10/2022 4:22 AM EDT PROTHROMBIN TIME/INR STAT 06/10/2022 4:22 AM EDT SARS-COV2/INFLUENZA/RSV RT-PCR STAT 06/10/2022 4:14 AM EDT FS_MODEL_IP_ECG 12-LEAD STAT 06/11/19 3:57 AM EDT BLOOD CULTURE STAT 06/10/2022 3:51 AM EDT BLOOD CULTURE STAT 06/10/2022 3:51 AM EDT XR CHEST 1 VIEW PORTABLE / BEDSIDE STAT 06/10/2022 3:[address] LUMBAR SPINE WITHOUT IV CONTRAST STAT 06/10/2022 3:[address] BRAIN WITHOUT IV CONTRAST STAT 06/10/2022 3:21 AM EDT CBC W/ AUTO DIFF STAT 06/10/2022 12:36 AM EDT LACTIC ACID WITH REFLEX STAT 06/11/19 12:36 AM EDT PROCALCITONIN Add-On 06/10/2022 12:36 AM EDT PROBNP Add-On 06/10/2022 12:36 AM EDT MAGNESIUM Add-On 06/10/2022 12:36 AM EDT COMPREHENSIVE METABOLIC PANEL STAT 06/10/2022 12:36 AM EDT FS_MODEL_IP_ECG 12-LEAD STAT 06/11/19 12:35 AM EDT EKG-SCANNED 06/10/2022 EKG-SCANNED 06/10/2022 EKG-SCANNED 06/10/2022 documented in this encounter Results * (ABNORMAL) Comprehensive metabolic panel (06/28/2022 5:26 AM EDT) Sodium 134(L) 136 - 146 meq/L 06/28/2022 6:21 AM EDT [facility] Potassium 4.1 3.5 - 5.1 meq/L 06/28/2022 6:21 AM [facility] Chloride 105 102 - 112 meq/L 06/28/2022 6:21 AM [facility] CO2 20(L) 21 - 32 meq/L 06/28/2022 6:21 AM [facility] Calcium 9.6 8.4 - 10.1 mg/dL 06/28/2022 6:21 AM [facility] Glucose 92 74 - 106 mg/dL 06/28/2022 6:21 AM [facility] BUN 17 7 - 22 mg/dL 06/28/2022 6:21 AM [facility] Creatinine 0.74 0.55 - 1.02 mg/dL 06/28/2022 6:21 AM [facility] BUN/Creatinine 23(H) 8 - 20 06/28/2022 6:21 AM [facility] Albumin 2.3(L) 3.4 - 5.0 g/dL 06/28/2022 6:21 AM [facility] Alkaline Phosphatase 65 27 - 136 U/L 06/28/2022 6:21 AM [facility] ALT 28 13 - 56 U/L 06/28/2022 6:21 AM [facility] AST 38(H) 5 - 37 U/L 06/28/2022 6:21 AM [facility] Total Bilirubin 1.0 0.2 - 1.2 mg/dL 06/28/2022 6:21 AM [facility] Protein, Total 6.2(L) 6.4 - 8.2 gm/dL 06/28/2022 6:21 AM [facility] Anion Gap 13 9 - 20 06/28/2022 6:21 AM [facility] A/G Ratio 0.6(L) 1.1 - 2.5 06/28/2022 6:21 AM [facility] Globulin 3.9 1.5 - 4.5 g/dL 06/28/2022 6:21 AM [facility] Osmolality Calc 269.4 6:21 AM [facility] eGFR (mL/min/1.73m2) >60 >=60 mL/min/1.7 3m2 06/28/2022 6:21 AM T [facility] Comment:ESTIMATED GFR IS NOT ACCURATE CREATININE CLEARANCE IN PREDICTING GLOMERULAR FILTRATION RATE. ESTIMATED GFR IS NOT APPLICABLE FOR DIALYSIS PATIENTS. Blood Venipuncture / Unknown 06/28/2022 5:26 AM EDT 06/28/2022 5:44 AM EDT Narrative [facility] - 06/28/2022 6:21 AM EDT As of 05-04-2022 date, reported eGFR is based on the CKD-EPI 2020 equation that does not use a race coefficient. Laboratory Report for eGFR of 45-59 mL/min/1.73m2- For eGFR of 45-59 mL/min/1.73m2, NKF KDOQI and KDIGO guidelines recommend one - time confirmation of eGFR calculated using both creatinine and cystatin C. Cystatin C is recommended in the outpatient patient setting for purposes of confirming chronic kidney disease, rather than in the acute setting for acute kidney injury or failure. us Gustabo Galarza MD LAB BLOOD ORDERABLES Final Result [facility] [address] [phone] * (ABNORMAL) CBC with automated diff (06/28/2022 5:26 AM EDT) WBC 5.4 4.5 - 10.5 K/??L 06/28/2022 6:01 AM EDT [facility] RBC 3.64(L) 3.93 - 5.22 M/??L 06/28/2022 6:01 AM [facility] Hemoglobin 11.7 11.2 - 15.7 GM/DL 06/28/2022 6:01 AM T [facility] Hematocrit 35.0 34.1 - 44.9 % 06/28/2022 6:01 AM [facility] MCV 96(H) 79 - 95 fL 06/28/2022 6:01 AM T [facility] MCH 32.1 25.6 - 32.2 pg 06/28/2022 6:01 AM EDT [facility] MCHC 33.4 32.2 - 36.5 GM/DL 06/28/2022 6:01 AM EDT [facility] RDW 15.1(H) 11.7 - 14.9 % 06/28/2022 6:01 AM EDT [facility] Platelets 311 163 - 369 K/CU MM 06/28/2022 6:01 AM EDT [facility] MPV 10.4 9.4 - 12.4 fL 06/28/2022 6:01 AM EDT [facility] % Neutros 47 34 - 71 % 06/28/2022 6:01 AM EDT [facility] % Lymphs 32 19 - 53 % 06/28/2022 6:01 AM EDT [facility] % Monos 13(H) 3 - 9 % 06/28/2022 6:01 AM EDT [facility] % Eos 7(H) 0 - 1 % 06/28/2022 6:01 AM EDT [facility] % Baso 1 0 - 2 % 06/28/2022 6:01 AM EDT [facility] NRBC Absolute 0.00 0 - 0.12 K/ul 06/28/2022 6:01 AM EDT [facility] # Neutros 2.55 1.56 - 6.13 K/??L 06/28/2022 6:01 AM EDT [facility] # Lymphs 1.70 1.00 - 3.50 K/??L 06/28/2022 6:01 AM EDT [facility] # Monos 0.69 0.16 - 1.00 K/??L 06/28/2022 6:01 AM EDT [facility] # Eos 0.38 0.00 - 0.80 K/??L 06/28/2022 6:01 AM EDT [facility] # Baso 0.04 0.00 - 0.20 K/??L 06/28/2022 6:01 AM EDT [facility] Immature Granulocytes-Re lative 0.40 0.00 - 0.60 % 06/28/2022 6:01 AM EDT [facility] # IG 0.02 0.00 - 0.05 K/uL 06/28/2022 6:01 AM EDT [facility] Blood Venipuncture / Unknown 06/28/2022 5:26 AM EDT 06/28/2022 5:44 AM EDT Narrative [facility] - 06/28/2022 6:01 AM EDT When CBC w/ Auto Diff is ordered the lab will add a Manual Differential as a quality check at no additional charge if: Lymphocytes greater than seventy five percent with normal or increased WBC Monocytes greater than Fifteen percent Basophil greater than four percent Bands >10% or several immature myeloids are seen on scan Blast? Flag noted Atypical Lymph flag noted us Gustabo Galarza MD LAB BLOOD ORDERABLES Final Result [facility] [address] [place] [address] * (ABNORMAL) Comprehensive metabolic panel (06/27/2022 8:56 AM EDT) Sodium 137 136 - 146 meq/L 06/27/2022 9:27 AM EDT [facility] Potassium 3.7 3.5 - 5.1 meq/L 06/27/2022 9:27 AM EDT [facility] Chloride 105 102 - 112 meq/L 06/27/2022 9:27 AM EDT [facility] CO2 20(L) 21 - 32 meq/L 06/27/2022 9:27 AM EDT [facility] Calcium 9.8 8.4 - 10.1 mg/dL 06/27/2022 9:27 AM EDT [facility] Glucose 140(H) 74 - 106 mg/dL 06/27/2022 9:27 AM EDT [facility] BUN 15 7 - 22 mg/dL 06/27/2022 9:27 AM EDT [facility] Creatinine 0.66 0.55 - 1.02 mg/dL 06/27/2022 9:27 AM EDT [facility] BUN/Creatinine 23(H) 8 - 20 06/27/2022 9:27 AM [facility] Albumin 2.6(L) 3.4 - 5.0 g/dL 06/27/2022 9:27 AM [facility] Alkaline Phosphatase 68 27 - 136 U/L 06/27/2022 9:27 AM [facility] ALT 26 13 - 56 U/L 06/27/2022 9:27 AM [facility] AST 26 5 - 37 U/L 06/27/2022 9:27 AM [facility] Total Bilirubin 0.7 0.2 - 1.2 mg/dL 06/27/2022 9:27 AM [facility] Protein, Total 6.3(L) 6.4 - 8.2 gm/dL 06/27/2022 9:27 AM [facility] Anion Gap 16 9 - 20 06/27/2022 9:27 AM [facility] A/G Ratio 0.7(L) 1.1 - 2.5 06/27/2022 9:27 AM [facility] Globulin 3.7 1.5 - 4.5 g/dL 06/27/2022 9:27 AM [facility] Osmolality Calc 277.0 9:27 AM [facility] eGFR (mL/min/1.73m2) >60 >=60 mL/min/1.7 3m2 06/27/2022 9:27 AM [facility] Comment:ESTIMATED GFR IS NOT ACCURATE CREATININE CLEARANCE IN PREDICTING GLOMERULAR FILTRATION RATE. ESTIMATED GFR IS NOT APPLICABLE FOR DIALYSIS PATIENTS. Blood Venipuncture / Unknown 06/27/2022 8:56 AM EDT 06/27/2022 9:02 AM [facility] LABORATORY - 06/27/2022 9:27 AM T As of 05-04-2022 date, reported eGFR is based on the CKD-EPI 2020 equation that does not use a race coefficient. Laboratory Report for eGFR of 45-59 mL/min/1.73m2- For eGFR of 45-59 mL/min/1.73m2, NKF KDOQI and KDIGO guidelines recommend one - time confirmation of eGFR calculated using both creatinine and cystatin C. Cystatin C is recommended in the outpatient patient setting for purposes of confirming chronic kidney disease, rather than in the acute setting for acute kidney injury or failure. us Gustabo Galarza MD LAB BLOOD ORDERABLES Final Result [facility] [address] [phone] * (ABNORMAL) CBC with automated diff (06/27/2022 8:56 AM EDT) WBC 7.0 4.5 - 10.5 K/??L 06/27/2022 9:12 AM EDT [facility] RBC 3.69(L) 3.93 - 5.22 M/??L 06/27/2022 9:12 AM EDT [facility] Hemoglobin 11.8 11.2 - 15.7 GM/DL 06/27/2022 9:12 AM EDT [facility] Hematocrit 35.2 34.1 - 44.9 % 06/27/2022 9:12 AM EDT [facility] MCV 95 79 - 95 fL 06/27/2022 9:12 AM EDT [facility] MCH 32.0 25.6 - 32.2 pg 06/27/2022 9:12 AM EDT [facility] MCHC 33.5 32.2 - 36.5 GM/DL 06/27/2022 9:12 AM EDT [facility] RDW 15.0(H) 11.7 - 14.9 % 06/27/2022 9:12 AM EDT [facility] Platelets 334 163 - 369 K/CU MM 06/27/2022 9:12 AM EDT [facility] MPV 10.5 9.4 - 12.4 fL 06/27/2022 9:12 AM EDT [facility] % Neutros 61 34 - 71 % 06/27/2022 9:12 AM EDT [facility] % Lymphs 26 19 - 53 % 06/27/2022 9:12 AM EDT [facility] % Monos 7 3 - 9 % 06/27/2022 9:12 AM EDT [facility] % Eos 5(H) 0 - 1 % 06/27/2022 9:12 AM EDT [facility] % Baso 1 0 - 2 % 06/27/2022 9:12 AM EDT [facility] NRBC Absolute 0.00 0 - 0.12 K/ul 06/27/2022 9:12 AM EDT [facility] # Neutros 4.23 1.56 - 6.13 K/??L 06/27/2022 9:12 AM EDT [facility] # Lymphs 1.82 1.00 - 3.50 K/??L 06/27/2022 9:12 AM EDT [facility] # Monos 0.52 0.16 - 1.00 K/??L 06/27/2022 9:12 AM EDT [facility] # Eos 0.35 0.00 - 0.80 K/??L 06/27/2022 9:12 AM EDT [facility] # Baso 0.04 0.00 - 0.20 K/??L 06/27/2022 9:12 AM EDT [facility] Immature Granulocytes-Re lative 0.30 0.00 - 0.60 % 06/27/2022 9:12 AM EDT [facility] # IG 0.02 0.00 - 0.05 K/uL 06/27/2022 9:12 AM EDT [facility] Blood Venipuncture / Unknown 06/27/2022 8:56 AM EDT 06/27/2022 9:02 AM EDT Narrative [facility] - 06/27/2022 9:12 AM EDT When CBC w/ Auto Diff is ordered the lab will add a Manual Differential as a quality check at no additional charge if: Lymphocytes greater than seventy five percent with normal or increased WBC Monocytes greater than Fifteen percent Basophil greater than four percent Bands >10% or several immature myeloids are seen on scan Blast? Flag noted Atypical Lymph flag noted us Gustabo Galarza MD LAB BLOOD ORDERABLES Final Result [facility] [address] [phone] * (ABNORMAL) Basic Metabolic Panel (06/26/2022 10:56 AM EDT) Sodium 135(L) 136 - 146 meq/L 06/26/2022 12:12 PM EDT [facility] Potassium 3.3(L) 3.5 - 5.1 meq/L 06/26/2022 12:12 PM EDT [facility] Chloride 104 102 - 112 meq/L 06/26/2022 12:12 PM EDT [facility] CO2 20(L) 21 - 32 meq/L 06/26/2022 12:12 PM EDT [facility] Anion Gap 14 9 - 20 06/26/2022 12:12 PM EDT [facility] BUN 14 7 - 22 mg/dL 06/26/2022 12:12 PM EDT [facility] Creatinine 0.75 0.55 - 1.02 mg/dL 06/26/2022 12:12 PM EDT [facility] BUN/Creatinine 19 8 - 20 06/26/2022 12:12 PM EDT [facility] Glucose 162(H) 74 - 106 mg/dL 06/26/2022 12:12 PM EDT [facility] Calcium 9.5 8.4 - 10.1 mg/dL 06/26/2022 12:12 PM EDT [facility] Osmolality Calc 274.1 12:12 PM EDT [facility] eGFR (mL/min/1.73m2) >60 >=60 mL/min/1.7 3m2 06/26/2022 12:12 PM EDT [facility] Comment:eGFR of <60 suggests chronic kidney disease if found over a 3 month period of time. eGFR <15 indicates renal failure. Blood Venipuncture / Unknown 06/26/2022 10:56 AM EDT 06/26/2022 11:51 AM EDT Narrative [facility] - 06/26/2022 12:12 PM EDT As of 05-04-2022 date, reported eGFR is based on the CKD-EPI 2020 equation that does not use a race coefficient. Laboratory Report for eGFR of 45-59 mL/min/1.73m2- For eGFR of 45-59 mL/min/1.73m2, NKF KDOQI and KDIGO guidelines recommend one - time confirmation of eGFR calculated using both creatinine and cystatin C. Cystatin C is recommended in the outpatient patient setting for purposes of confirming chronic kidney disease, rather than in the acute setting for acute kidney injury or failure. Chino Reardon MD LAB BLOOD ORDERABLES Final R esult Performing Organization Address [facility] de Phone Number [facility] [address] [phone] * Glucose, Nova Meter (06/24/2022 4:19 PM EDT) POC-GLUCOSE 93 70 - 110 mg/dL 06/24/2022 4:20 PM EDT [facility] Comment: In the event of poor peripheral blood flow, venous or arterial blood should be used due to the potential of erroneous results. Notified Nurse [facility] Home Health Billing Specialist [phone] 06/24/2022 4:20 PM EDT [facility] Blood WHOLE BLOOD / Unknown 06/24/2022 4:19 PM EDT 06/24/2022 4:20 PM EDT Narrative [facility] - 06/24/2022 4:20 PM EDT Home Health Billing Specialist ID is - [id number] Simin Awad DO POINT OF CARE TEST ORDERABLES Fi nal Result Performing Organization Address [facility] Co de Phone Number [facility] [address] [place] [address], [facility] [phone] * (ABNORMAL) Glucose, Nova Meter (06/24/2022 10:53 AM EDT) POC-GLUCOSE 144(H) 70 - 110 mg/dL 06/24/2022 10:55 AM EDT [facility] Comment: In the event of poor peripheral blood flow, venous or arterial blood should be used due to the potential of erroneous results. Notified Nurse [facility] Health Billing Specialist [phone] 06/24/2022 10:55 AM EDT [facility] Blood WHOLE BLOOD / Unknown 06/24/2022 10:53 AM EDT 06/24/2022 10:55 AM EDT Narrative [facility] - 06/24/2022 10:55 AM EDT Home Health Billing Specialist ID is - [id number] [facility] Awad DO POINT OF CARE TEST ORDERABLES Fi nal Result Performing Organization Address [facility] Co de Phone Number [facility] [address] [phone] * Glucose, Nova Meter (06/24/2022 6:03 AM EDT) [facility] POC-GLUCOSE 97 70 - 110 mg/dL 06/24/2022 6:09 AM EDT [facility] Comment: In the event of poor peripheral blood flow, venous or arterial blood should be used due to the potential of erroneous results. Notified Nurse [facility] Health Billing Specialist [phone] 06/24/2022 6:09 AM EDT [facility] Blood WHOLE BLOOD / Unknown 06/24/2022 6:03 AM EDT 06/24/2022 6:09 AM EDT Narrative [facility] - 06/24/2022 6:09 AM EDT Home Health Billing Specialist ID is - [id number] [facility] Awad DO POINT OF CARE TEST ORDERABLES Fi nal Result Performing Organization Address [facility] Co de Phone Number [facility] [address] [phone] * T4, free (06/23/2022 5:39 PM EDT) Pathologist [facility] Free T4 1.21 0.76 - 1.46 ng/dL 06/23/2022 6:24 PM EDT [facility] Blood Venipuncture / Unknown 06/23/2022 5:39 PM EDT 06/23/2022 5:53 PM EDT Simin Awad LAB BLOOD ORDERABLES Final Resul t Performing Organization Address [facility] Phone Number [facility] [address] [phone] * Cortisol (06/23/2022 10:24 AM EDT) Cortisol Level (mcg/dL) 27.4 mcg/dL 06/23/2022 11:09 AM EDT [facility] Blood Venipuncture / Unknown 06/23/2022 10:24 AM EDT 06/23/2022 10:29 AM EDT Simin Corrigans LAB BLOOD ORDERABLES Final Resul t Performing Organization Address [facility] Phone Number [facility] [address] [phone] * Cortisol (06/23/2022 9:25 AM EDT) Cortisol Level (mcg/dL) 22.8 mcg/dL 06/23/2022 10:14 AM EDT [facility] Blood Venipuncture / Unknown 06/23/2022 9:25 AM EDT 06/23/2022 9:30 AM EDT Simin Awad DO LAB BLOOD ORDERABLES Final Resul t Performing Organization Address [facility] Phone Number [facility] [address] [phone] * (ABNORMAL) Basic Metabolic Panel (06/23/2022 7:48 AM EDT) Sodium 136 136 - 146 meq/L 06/23/2022 8:32 AM EDT [facility] Potassium 4.1 3.5 - 5.1 meq/L 06/23/2022 8:32 AM EDT [facility] Chloride 110 102 - 112 meq/L 06/23/2022 8:32 AM EDT [facility] CO2 18(L) 21 - 32 meq/L 06/23/2022 8:32 AM EDT [facility] Anion Gap 12 9 - 20 06/23/2022 8:32 AM EDT [facility] BUN 16 7 - 22 mg/dL 06/23/2022 8:32 AM EDT [facility] Creatinine 0.72 0.55 - 1.02 mg/dL 06/23/2022 8:32 AM EDT [facility] BUN/Creatinine 22(H) 8 - 20 06/23/2022 8:32 AM EDT [facility] Glucose 85 74 - 106 mg/dL 06/23/2022 8:32 AM EDT [facility] Calcium 9.1 8.4 - 10.1 mg/dL 06/23/2022 8:32 AM EDT [facility] Osmolality Calc 272.4 8:32 AM EDT [facility] eGFR (mL/min/1.73m2) >60 >=60 mL/min/1.7 3m2 06/23/2022 8:32 AM EDT [facility] Comment:eGFR of <60 suggests chronic kidney disease if found over a 3 month period of time. eGFR <15 indicates renal failure. Blood Venipuncture / Unknown 06/23/2022 7:48 AM EDT 06/23/2022 8:04 AM EDT [facility] - 06/23/2022 8:32 AM EDT As of 05-04-2022 date, reported eGFR is based on the CKD-EPI 2020 equation that does not use a race coefficient. Laboratory Report for eGFR of 45-59 mL/min/1.73m2- For eGFR of 45-59 mL/min/1.73m2, NKF KDOQI and KDIGO guidelines recommend one - time confirmation of eGFR calculated using both creatinine and cystatin C. Cystatin C is recommended in the outpatient patient setting for purposes of confirming chronic kidney disease, rather than in the acute setting for acute kidney injury or failure. us Simin Awad DO LAB BLOOD ORDERABLES Final Resul t [facility] [address] [phone] * (ABNORMAL) CBC with Automated Diff (06/23/2022 7:48 AM EDT) WBC 6.1 4.5 - 10.5 K/??L 06/23/2022 8:15 AM EDT [facility] RBC 3.48(L) 3.93 - 5.22 M/??L 06/23/2022 8:15 AM EDT [facility] Hemoglobin 11.2 11.2 - 15.7 GM/DL 06/23/2022 8:15 AM EDT [facility] Hematocrit 34.0(L) 34.1 - 44.9 % 06/23/2022 8:15 AM EDT [facility] MCV 98(H) 79 - 95 fL 06/23/2022 8:15 AM EDT [facility] MCH 32.2 25.6 - 32.2 pg 06/23/2022 8:15 AM EDT [facility] MCHC 32.9 32.2 - 36.5 GM/DL 06/23/2022 8:15 AM EDT [facility] RDW 15.1(H) 11.7 - 14.9 % 06/23/2022 8:15 AM EDT [facility] Platelets 310 163 - 369 K/CU MM 06/23/2022 8:15 AM EDT [facility] MPV 11.0 9.4 - 12.4 fL 06/23/2022 8:15 AM EDT [facility] % Neutros 50 34 - 71 % 06/23/2022 8:15 AM EDT [facility] % Lymphs 31 19 - 53 % 06/23/2022 8:15 AM EDT [facility] % Monos 12(H) 3 - 9 % 06/23/2022 8:15 AM EDT [facility] % Eos 6(H) 0 - 1 % 06/23/2022 8:15 AM EDT [facility] % Baso 1 0 - 2 % 06/23/2022 8:15 AM EDT [facility] NRBC Absolute 0.00 0 - 0.12 K/ul 06/23/2022 8:15 AM EDT [facility] # Neutros 3.02 1.56 - 6.13 K/??L 06/23/2022 8:15 AM EDT [facility] # Lymphs 1.90 1.00 - 3.50 K/??L 06/23/2022 8:15 AM EDT [facility] # Monos 0.73 0.16 - 1.00 K/??L 06/23/2022 8:15 AM EDT [facility] # Eos 0.35 0.00 - 0.80 K/??L 06/23/2022 8:15 AM EDT [facility] # Baso 0.05 0.00 - 0.20 K/??L 06/23/2022 8:15 AM EDT [facility] Immature Granulocytes-Re lative 0.30 0.00 - 0.60 % 06/23/2022 8:15 AM EDT [facility] # IG 0.02 0.00 - 0.05 K/uL 06/23/2022 8:15 AM EDT [facility] Blood Venipuncture / Unknown 06/23/2022 7:48 AM EDT 06/23/2022 8:04 AM EDT Narrative [facility] - 06/23/2022 8:15 AM EDT When CBC w/ Auto Diff is ordered the lab will add a Manual Differential as a quality check at no additional charge if: Lymphocytes greater than seventy five percent with normal or increased WBC Monocytes greater than Fifteen percent Basophil greater than four percent Bands >10% or several immature myeloids are seen on scan Blast? Flag noted Atypical Lymph flag noted us Simin Awad DO LAB BLOOD ORDERABLES Final Resul t [facility] [address] [place] [id number] [phone] * Cortisol (06/23/2022 7:48 AM EDT) Cortisol Level (mcg/dL) 1.5 mcg/dL 06/23/2022 8:43 AM EDT [facility] Blood Venipuncture / Unknown 06/23/2022 7:48 AM EDT 06/23/2022 8:04 AM EDT us Simin Awad DO LAB BLOOD ORDERABLES Final Resul t Performing Organization Address City/[facility]/ZIP Co de Phone Number [facility] [address] [phone] * (ABNORMAL) Manual Differential (06/22/2022 5:36 AM EDT) Total Counted 100 06/22/2022 7:04 AM EDT [facility] % Neutros (manual) 49(L) 50 - 65 % 06/22/2022 7:04 AM EDT [facility] % Lymphs (manual) 29 24 - 44 % 06/22/2022 7:04 AM EDT [facility] % Monos (manual) 17(H) 4 - 5 % 06/23/19 7:04 AM EDT [facility] % Eos (manual) 5(H) 0 - 3 % 06/22/2022 7:04 AM EDT [facility] RBC Morphology abnormal(A) Normal 7:04 AM EDT [facility] Platelet Estimate Adequate Adequate 06/22/2022 7:04 AM EDT [facility] Anisocytosis 1+ 06/22/2022 7:04 AM EDT [facility] Hypochromia 1+ 06/22/2022 7:04 AM EDT [facility] Ovalocytes 1+ 06/22/2022 7:04 AM EDT [facility] ANC# 3.23 K/??L 06/22/2022 7:04 AM EDT [facility] Blood Venipuncture / Unknown 06/22/2022 5:36 AM EDT 06/22/2022 5:57 AM EDT us Aayush Chew DO LAB BLOOD ORDERABLES Final Res ult [facility] [address] [phone] * (ABNORMAL) CBC with automated diff (06/22/2022 5:36 AM EDT) WBC 6.6 4.5 - 10.5 K/??L 06/22/2022 7:04 AM EDT [facility] RBC 3.36(L) 3.93 - 5.22 M/??L 06/22/2022 7:04 AM EDT [facility] Hemoglobin 10.8(L) 11.2 - 15.7 GM/DL 06/22/2022 7:04 AM EDT [facility] Hematocrit 32.7(L) 34.1 - 44.9 % 06/22/2022 7:04 AM EDT [facility] MCV 97(H) 79 - 95 fL 06/22/2022 7:04 AM EDT [facility] MCH 32.1 25.6 - 32.2 pg 06/22/2022 7:04 AM EDT [facility] MCHC 33.0 32.2 - 36.5 GM/DL 06/22/2022 7:04 AM EDT [facility] RDW 14.9 11.7 - 14.9 % 06/22/2022 7:04 AM EDT [facility] Platelets 313 163 - 369 K/CU MM 06/22/2022 7:04 AM EDT [facility] MPV 11.0 9.4 - 12.4 fL 06/22/2022 7:04 AM EDT [facility] NRBC Absolute 0.00 0 - 0.12 K/ul 06/22/2022 7:04 AM T [facility] Blood Venipuncture / Unknown 06/22/2022 5:36 AM EDT 06/22/2022 5:57 AM EDT [facility] - 06/22/2022 7:04 AM EDT When CBC w/ Auto Diff is ordered the lab will add a Manual Differential as a quality check at no additional charge if: Lymphocytes greater than seventy five percent with normal or increased WBC Monocytes greater than Fifteen percent Basophil greater than four percent Bands >10% or several immature myeloids are seen on scan Blast? Flag noted Atypical Lymph flag noted us Aayush Chew DO LAB BLOOD ORDERABLES Final Res ult [facility] [address] [phone] * (ABNORMAL) Comprehensive metabolic panel (06/22/2022 5:36 AM EDT) Sodium 138 136 - 146 meq/L 06/22/2022 6:43 AM EDT [facility] Potassium 3.8 3.5 - 5.1 meq/L 06/22/2022 6:43 AM EDT [facility] Chloride 109 102 - 112 meq/L 06/22/2022 6:43 AM EDT [facility] CO2 20(L) 21 - 32 meq/L 06/22/2022 6:43 AM EDT [facility] Calcium 9.4 8.4 - 10.1 mg/dL 06/22/2022 6:43 AM EDT [facility] Glucose 92 74 - 106 mg/dL 06/22/2022 6:43 AM EDT [facility] BUN 16 7 - 22 mg/dL 06/22/2022 6:43 AM EDT [facility] Creatinine 0.68 0.55 - 1.02 mg/dL 06/22/2022 6:43 AM EDT [facility] BUN/Creatinine 24(H) 8 - 20 06/22/2022 6:43 AM EDT [facility] Albumin 2.3(L) 3.4 - 5.0 g/dL 06/22/2022 6:43 AM EDT [facility] Alkaline Phosphatase 60 27 - 136 U/L 06/22/2022 6:43 AM EDT [facility] ALT 35 13 - 56 U/L 06/22/2022 6:43 AM EDT [facility] AST 36 5 - 37 U/L 06/22/2022 6:43 AM EDT [facility] Total Bilirubin 0.7 0.2 - 1.2 mg/dL 06/22/2022 6:43 AM EDT [facility] Protein, Total 5.9(L) 6.4 - 8.2 gm/dL 06/22/2022 6:43 AM EDT [facility] Anion Gap 13 9 - 20 06/22/2022 6:43 AM EDT [facility] A/G Ratio 0.6(L) 1.1 - 2.5 06/22/2022 6:43 AM EDT [facility] Globulin 3.6 1.5 - 4.5 g/dL 06/22/2022 6:43 AM EDT [facility] Osmolality Calc 276.5 6:43 AM EDT [facility] eGFR (mL/min/1.73m2) >60 >=60 mL/min/1.7 3m2 06/22/2022 6:43 AM EDT [facility] Comment:ESTIMATED GFR IS NOT ACCURATE CREATININE CLEARANCE IN PREDICTING GLOMERULAR FILTRATION RATE. ESTIMATED GFR IS NOT APPLICABLE FOR DIALYSIS PATIENTS. Blood Venipuncture / Unknown 06/22/2022 5:36 AM EDT 06/22/2022 5:58 AM EDT Narrative [facility] - 06/22/2022 6:43 AM EDT As of 05-04-2022 date, reported eGFR is based on the CKD-EPI 2020 equation that does not use a race coefficient. Laboratory Report for eGFR of 45-59 mL/min/1.73m2- For eGFR of 45-59 mL/min/1.73m2, NKF KDOQI and KDIGO guidelines recommend one - time confirmation of eGFR calculated using both creatinine and cystatin C. Cystatin C is recommended in the outpatient patient setting for purposes of confirming chronic kidney disease, rather than in the acute setting for acute kidney injury or failure. us Simin Awad DO LAB BLOOD ORDERABLES Final Resul t [facility] [address] [place], [place] [address] [phone] * Cortisol (06/21/2022 4:26 PM EDT) Cortisol Level (mcg/dL) 10.0 mcg/dL 06/21/2022 5:19 PM EDT [facility] Blood Venipuncture / Unknown 06/21/2022 4:26 PM EDT 06/21/2022 4:38 PM EDT us Simin Ritesh BRAY LAB BLOOD ORDERABLES Final Resul t [facility] [address] [phone] * Cortisol (06/21/2022 8:16 AM EDT) Cortisol Level (mcg/dL) 1.3 mcg/dL 06/21/2022 8:56 AM EDT [facility] Blood Venipuncture / Unknown 06/21/2022 8:16 AM EDT 06/21/2022 8:22 AM EDT us Sarahi DAS-C LAB BLOOD ORDERABLES F inal Result Performing Organization Address City/[facility]/ZIP Co de Phone Number [facility] [address] [phone] * (ABNORMAL) Comprehensive metabolic panel (06/21/2022 6:53 AM EDT) Sodium 138 136 - 146 meq/L 06/21/2022 7:37 AM EDT [facility] Potassium 3.7 3.5 - 5.1 meq/L 06/21/2022 7:37 AM EDT [facility] Chloride 109 102 - 112 meq/L 06/21/2022 7:37 AM EDT [facility] CO2 22 21 - 32 meq/L 06/21/2022 7:37 AM EDT [facility] Calcium 9.5 8.4 - 10.1 mg/dL 06/21/2022 7:37 AM EDT [facility] Glucose 91 74 - 106 mg/dL 06/21/2022 7:37 AM EDT [facility] BUN 19 7 - 22 mg/dL 06/21/2022 7:37 AM [facility] Creatinine 0.71 0.55 - 1.02 mg/dL 06/21/2022 7:37 AM [facility] BUN/Creatinine 27(H) 8 - 20 06/21/2022 7:37 AM [facility] Albumin 2.3(L) 3.4 - 5.0 g/dL 06/21/2022 7:37 AM [facility] Alkaline Phosphatase 60 27 - 136 U/L 06/21/2022 7:37 AM [facility] ALT 39 13 - 56 U/L 06/21/2022 7:37 AM [facility] AST 40(H) 5 - 37 U/L 06/21/2022 7:37 AM [facility] Total Bilirubin 0.4 0.2 - 1.2 mg/dL 06/21/2022 7:37 AM [facility] Protein, Total 6.0(L) 6.4 - 8.2 gm/dL 06/21/2022 7:37 AM [facility] Anion Gap 11 9 - 20 06/21/2022 7:37 AM [facility] A/G Ratio 0.6(L) 1.1 - 2.5 06/21/2022 7:37 AM [facility] Globulin 3.7 1.5 - 4.5 g/dL 06/21/2022 7:37 AM [facility] Osmolality Calc 277.5 7:37 AM [facility] eGFR (mL/min/1.73m2) >60 >=60 mL/min/1.7 3m2 06/21/2022 7:37 AM [facility] Comment:ESTIMATED GFR IS NOT ACCURATE CREATININE CLEARANCE IN PREDICTING GLOMERULAR FILTRATION RATE. ESTIMATED GFR IS NOT APPLICABLE FOR DIALYSIS PATIENTS. Blood Venipuncture / Unknown 06/21/2022 6:53 AM EDT 06/21/2022 7:10 AM [facility] - 06/21/2022 7:37 AM EDT As of 03-17-2023 date, reported eGFR is based on the CKD-EPI 2020 equation that does not use a race coefficient. Laboratory Report for eGFR of 45-59 mL/min/1.73m2- For eGFR of 45-59 mL/min/1.73m2, NKF KDOQI and KDIGO guidelines recommend one - time confirmation of eGFR calculated using both creatinine and cystatin C. Cystatin C is recommended in the outpatient patient setting for purposes of confirming chronic kidney disease, rather than in the acute setting for acute kidney injury or failure. us Sarahi Rajan PA-C LAB BLOOD ORDERABLES F inal Result [facility] [address] [phone] * (ABNORMAL) CBC - Hemogram ([facility]J-BKR) (06/21/2022 6:53 AM EDT) WBC 7.3 4.5 - 10.5 K/??L 06/21/2022 7:22 AM EDT [facility] RBC 3.55(L) 3.93 - 5.22 M/??L 06/21/2022 7:22 AM EDT [facility] Hemoglobin 11.3 11.2 - 15.7 GM/DL 06/21/2022 7:22 AM EDT [facility] Hematocrit 34.4 34.1 - 44.9 % 06/21/2022 7:22 AM EDT [facility] MCV 97(H) 79 - 95 fL 06/21/2022 7:22 AM EDT [facility] MCH 31.8 25.6 - 32.2 pg 06/21/2022 7:22 AM EDT [facility] MCHC 32.8 32.2 - 36.5 GM/DL 06/21/2022 7:22 AM EDT [facility] RDW 14.6 11.7 - 14.9 % 06/21/2022 7:22 AM EDT [facility] Platelets 316 163 - 369 K/CU MM 06/21/2022 7:22 AM EDT [facility] MPV 10.9 9.4 - 12.4 fL 06/21/2022 7:22 AM EDT [facility] Blood Venipuncture / Unknown 06/21/2022 6:53 AM EDT 06/21/2022 7:09 AM EDT us Sarahi Rajan PA-C LAB BLOOD ORDERABLES F inal Result [facility] [address] [phone] * (ABNORMAL) Basic Metabolic Panel (06/19/2022 5:40 AM EDT) Sodium 136 136 - 146 meq/L 06/19/2022 6:45 AM EDT [facility] Potassium 3.8 3.5 - 5.1 meq/L 06/19/2022 6:45 AM EDT [facility] Chloride 106 102 - 112 meq/L 06/19/2022 6:45 AM EDT [facility] CO2 21 21 - 32 meq/L 06/19/2022 6:45 AM EDT [facility] Anion Gap 13 9 - 20 06/19/2022 6:45 AM EDT [facility] BUN 32(H) 7 - 22 mg/dL 06/19/2022 6:45 AM EDT [facility] Creatinine 0.81 0.55 - 1.02 mg/dL 06/19/2022 6:45 AM EDT [facility] BUN/Creatinine 40(H) 8 - 20 06/19/2022 6:45 AM EDT [facility] Glucose 98 74 - 106 mg/dL 06/19/2022 6:45 AM EDT [facility] Calcium 9.5 8.4 - 10.1 mg/dL 06/19/2022 6:45 AM EDT [facility] Osmolality Calc 278.8 6:45 AM EDT [facility] eGFR (mL/min/1.73m2) >60 >=60 mL/min/1.7 3m2 06/19/2022 6:45 AM EDT [facility] Comment:eGFR of <60 suggests chronic kidney disease if found over a 3 month period of time. eGFR <15 indicates renal failure. Blood Venipuncture / Unknown 06/19/2022 5:40 AM EDT 06/19/2022 6:23 AM EDT Narrative [facility] - 06/19/2022 6:45 AM EDT As of 05-04-2022 date, reported eGFR is based on the CKD-EPI 2020 equation that does not use a race coefficient. Laboratory Report for eGFR of 45-59 mL/min/1.73m2- For eGFR of 45-59 mL/min/1.73m2, NKF KDOQI and KDIGO guidelines recommend one - time confirmation of eGFR calculated using both creatinine and cystatin C. Cystatin C is recommended in the outpatient patient setting for purposes of confirming chronic kidney disease, rather than in the acute setting for acute kidney injury or failure. Simin Umanzor APRN LAB BLOOD ORDERABLES Final R esult [facility] [address] [phone] * (ABNORMAL) ADRENOCORTICOTROPIC HORMONE(SENDOUT) (06/18/2022 7:54 AM EDT) Adrenocorticotropic Hormone 3.5(L) 7.2 - 63.3 pg/mL 06/19/2022 7:35 PM EDT [facility] Comment: INTERPRETIVE INFORMATION: Adrenocorticotropic Hormone Reference interval based on samples collected between 7 a.m. and 10 a.m. ??No reference intervals established for p.m. collections. ?? Pediatric reference values are the same as adults (Acta Paediatr Scand 1981;70:341-345). ??This assay measures intact ACTH 1-39; some types of synthetic ACTH and ACTH fragments are not detected by this assay. Performed By: [facility] [address] [place] [id number] Sewing Inspector: Roger Guerrero MD, PhD Blood Venipuncture / Unknown 06/18/2022 7:54 AM EDT 06/18/2022 8:03 AM EDT Simin Umanzor NEUROPHYSIOLOGY TECH LAB BLOOD [place] [address], [facility] [phone] * (ABNORMAL) Basic Metabolic Panel (06/18/2022 7:54 AM EDT) Sodium 137 136 - 146 meq/L 06/18/2022 8:28 AM EDT [facility] Potassium 4.6 3.5 - 5.1 meq/L 06/18/2022 8:28 AM EDT [facility] Chloride 105 102 - 112 meq/L 06/18/2022 8:28 AM EDT [facility] CO2 22 21 - 32 meq/L 06/18/2022 8:28 AM EDT [facility] Anion Gap 15 9 - 20 06/18/2022 8:28 AM EDT [facility] BUN 26(H) 7 - 22 mg/dL 06/18/2022 8:28 AM EDT [facility] Creatinine 0.81 0.55 - 1.02 mg/dL 06/18/2022 8:28 AM EDT [facility] BUN/Creatinine 32(H) 8 - 20 06/18/2022 8:28 AM EDT [facility] Glucose 94 74 - 106 mg/dL 06/18/2022 8:28 AM EDT [facility] Calcium 9.7 8.4 - 10.1 mg/dL 06/18/2022 8:28 AM EDT [facility] Osmolality Calc 278.3 8:28 AM EDT [facility] eGFR (mL/min/1.73m2) >60 >=60 mL/min/1.7 3m2 06/18/2022 8:28 AM T [facility] Comment:eGFR of <60 suggests chronic kidney disease if found over a 3 month period of time. eGFR <15 indicates renal failure. Blood Venipuncture / Unknown 06/18/2022 7:54 AM EDT 06/18/2022 8:03 AM EDT [facility] - 06/18/2022 8:28 AM EDT As of 05-04-2022 date, reported eGFR is based on the CKD-EPI 2020 equation that does not use a race coefficient. Laboratory Report for eGFR of 45-59 mL/min/1.73m2- For eGFR of 45-59 mL/min/1.73m2, NKF KDOQI and KDIGO guidelines recommend one - time confirmation of eGFR calculated using both creatinine and cystatin C. Cystatin C is recommended in the outpatient patient setting for purposes of confirming chronic kidney disease, rather than in the acute setting for acute kidney injury or failure. Simin Erna APRN LAB BLOOD ORDERABLES Final R esult Performing Organization Address City/[facility]/ZIP Co de Phone Number [facility] [address] [phone] * Cortisol (06/18/2022 7:53 AM EDT) Cortisol Level (mcg/dL) 0.8 mcg/dL 06/18/2022 8:40 AM EDT [facility] Blood Venipuncture / Unknown 06/18/2022 7:53 AM EDT 06/18/2022 8:03 AM EDT [facility] LAB BLOOD ORDERABLES Final R esult Performing Organization Address City/[facility] Co de Phone Number [facility] [address] [phone] * ALDOSTERONE(SENDOUT) (06/18/2022 7:53 AM EDT) Aldosterone 16.5 ng/dL 06/19/2022 10:52 PM EDT [facility] Comment: INTERPRETIVE INFORMATION: Aldosterone, Serum Reference intervals for age 15 and older: Upright ......... ??4.0 - 31.0 ng/dL Supine .......... ??Less than or equal to 16.0 ng/dL Unspecified ..... ??Less than or equal to 31.0 ng/dL Normal serum levels of aldosterone are dependent on the sodium intake and whether the patient is upright or supine. High sodium intake will tend to suppress serum aldosterone, whereas low sodium intake will elevate serum aldosterone. The reference intervals for serum aldosterone are based on normal sodium intake. Access complete set of age- and/or gender-specific reference intervals for this test in the [employer] Test Directory ([employer]). Performed By: [facility] [address] [place] [address] Sewing Inspector: Roger Guerrero MD, PhD Blood Venipuncture / Unknown 06/18/2022 7:53 AM EDT 06/18/2022 8:03 AM EDT us Simin Harmongeoff COLBY LAB BLOOD ORDERABLES Final R esult [facility] [address] [place] [address], [facility] [phone] * (ABNORMAL) CBC with automated diff (06/17/2022 9:42 PM EDT) WBC 7.9 4.5 - 10.5 K/??L 06/17/2022 9:48 PM EDT [facility] RBC 3.66(L) 3.93 - 5.22 M/??L 06/17/2022 9:48 PM EDT [facility] Hemoglobin 11.9 11.2 - 15.7 GM/DL 06/17/2022 9:48 PM EDT [facility] Hematocrit 35.1 34.1 - 44.9 % 06/17/2022 9:48 PM EDT [facility] MCV 96(H) 79 - 95 fL 06/17/2022 9:48 PM EDT [facility] MCH 32.5(H) 25.6 - 32.2 pg 06/17/2022 9:48 PM EDT [facility] MCHC 33.9 32.2 - 36.5 GM/DL 06/17/2022 9:48 PM EDT [facility] RDW 14.8 11.7 - 14.9 % 06/17/2022 9:48 PM EDT [facility] Platelets 316 163 - 369 K/CU MM 06/17/2022 9:48 PM EDT [facility] MPV 10.8 9.4 - 12.4 fL 06/17/2022 9:48 PM EDT [facility] % Neutros 53 34 - 71 % 06/17/2022 9:48 PM EDT [facility] % Lymphs 28 19 - 53 % 06/17/2022 9:48 PM EDT [facility] % Monos 14(H) 3 - 9 % 06/17/2022 9:48 PM EDT [facility] % Eos 4(H) 0 - 1 % 06/17/2022 9:48 PM EDT [facility] % Baso 0 0 - 2 % 06/17/2022 9:48 PM EDT [facility] NRBC Absolute 0.00 0 - 0.12 K/ul 06/17/2022 9:48 PM EDT [facility] # Neutros 4.24 1.56 - 6.13 K/??L 06/17/2022 9:48 PM EDT [facility] # Lymphs 2.20 1.00 - 3.50 K/??L 06/17/2022 9:48 PM EDT [facility] # Monos 1.10(H) 0.16 - 1.00 K/??L 06/17/2022 9:48 PM EDT [facility] # Eos 0.28 0.00 - 0.80 K/??L 06/17/2022 9:48 PM EDT [facility] # Baso 0.03 0.00 - 0.20 K/??L 06/17/2022 9:48 PM EDT [facility] Immature Granulocytes-Re lative 1.10(H) 0.00 - 0.60 % 06/17/2022 9:48 PM EDT [facility] # IG 0.09(H) 0.00 - 0.05 K/uL 06/17/2022 9:48 PM EDT [facility] Blood Venipuncture / Unknown 06/17/2022 9:42 PM EDT 06/17/2022 9:45 PM EDT [facility] - 06/17/2022 9:48 PM EDT When CBC w/ Auto Diff is ordered the lab will add a Manual Differential as a quality check at no additional charge if: Lymphocytes greater than seventy five percent with normal or increased WBC Monocytes greater than Fifteen percent Basophil greater than four percent Bands >10% or several immature myeloids are seen on scan Blast? Flag noted Atypical Lymph flag noted us Aayush Chew DO LAB BLOOD ORDERABLES Final Res ult [facility] [address] [phone] * (ABNORMAL) High Sensitivity Troponin I (06/17/2022 9:42 PM EDT) Troponin I High Sensitivity (pg/mL) 703.9(HH) 3 - 58.8 pg/mL 06/17/2022 10:09 PM EDT [facility] Comment: Troponin Result (pg/mL) ? *Interpretation 3-58.8 ? *Normal; less than 99th percentile of normal range >58.8 ?*Abnormal; greater than 99th percentile of normal range The Troponin I test methodology changed. Reporting units are now pg/mL instead of the previously used ng/mL: ??Normal reference ranges, critical cutoffs, specimen type, and comments have changed. ??*See the test change alert bulletin* To determine if a patient is experiencing an AMI with Troponin I, High Sensitivity it is important to use the assay in conjunction with patient presentation, clinical suspicion, and a serial-collection protocol. Biotin specimen concentration >300 ng/mL may lead to falsely depressed results for patient samples. ??Do not use this test for renal dysfunction patients (eGFR <60) unless it is confirmed that the patient is not taking Biotin. Blood Venipuncture / Unknown 06/17/2022 9:42 PM EDT 06/17/2022 9:45 PM EDT us Simin Umanzor NEUROPHYSIOLOGY TECH LAB BLOOD ORDERABLES Final R esult [facility] [address] [phone] * (ABNORMAL) High Sensitivity Troponin I (06/17/2022 6:34 PM EDT) Troponin I High Sensitivity (pg/mL) 739.0(HH) 3 - 58.8 pg/mL 06/17/2022 7:42 PM EDT [facility] Comment: Troponin Result (pg/mL) ? *Interpretation 3-58.8 ? *Normal; less than 99th percentile of normal range >58.8 ?*Abnormal; greater than 99th percentile of normal range The Troponin I test methodology changed. Reporting units are now pg/mL instead of the previously used ng/mL: ??Normal reference ranges, critical cutoffs, specimen type, and comments have changed. ??*See the test change alert bulletin* To determine if a patient is experiencing an AMI with Troponin I, High Sensitivity it is important to use the assay in conjunction with patient presentation, clinical suspicion, and a serial-collection protocol. Biotin specimen concentration >300 ng/mL may lead to falsely depressed results for patient samples. ??Do not use this test for renal dysfunction patients (eGFR <60) unless it is confirmed that the patient is not taking Biotin. Blood Venipuncture / Unknown 06/17/2022 6:34 PM EDT 06/17/2022 6:59 PM EDT Simin Umanzor APRN LAB BLOOD ORDERABLES Final R esult [facility] [address] [phone] * ECG 12 lead (06/17/2022 6:00 PM EDT) VENTRICULAR RATE EKG/MIN 95 BPM GE MUSE ATRIAL RATE (MCT) 95 BPM GE MUSE AR Interval 134 ms GE MUSE QRS-INTERVAL (MSEC) 90 ms GE MUSE QT Interval 366 ms GE MUSE QTC Interval 459 ms GE MUSE R AXIS (MCT) -20 degrees GE MUSE T Wave [employer] 23 degrees GE MUSE [place] Diagnosis Sinus rhythm with occasional premature ventricular complexes RSR' or QR pattern in V1 suggests right ventricular conduction delay Borderline ECG When compared with ECG of 14-JUN-2022 08:17, premature ventricular complexes are now present T wave amplitude has decreased in Anterior leads Confirmed by MD Tod, Abebe ([id number]), research editor SUSAN GAONA ([id number]) on 06/18/2022 2:42:55 PM GE MUSE 06/17/2022 6:00 PM EDT 06/18/2022 2:42 PM EDT Simin Umanzor APRN ECG ORDERABLES Final Result GE MUSE * TSH with Reflex FT4 (06/17/2022 6:01 AM EDT) TSH 3.170 0.358 - 3.740 uIU/mL 06/17/2022 3:08 PM EDT [facility] Blood Venipuncture / Unknown 06/17/2022 6:01 AM EDT 06/17/2022 7:08 AM EDT Narrative [facility] - 06/17/2022 3:08 PM EDT Biotin supplements can cause clinically significant incorrect lab results. The FDA has seen an increase in the number of adverse events related to Biotin interference with lab tests. us Simin Umanzor [facility] LAB BLOOD ORDERABLES Final R esult [facility] 1 [place], [place] [address] [phone] * (ABNORMAL) Basic Metabolic Panel (06/17/2022 6:01 AM EDT) Sodium 135(L) 136 - 146 meq/L 06/17/2022 7:32 AM EDT [facility] Potassium 4.9 3.5 - 5.1 meq/L 06/17/2022 7:32 AM EDT [facility] Chloride 107 102 - 112 meq/L 06/17/2022 7:32 AM EDT [facility] CO2 20(L) 21 - 32 meq/L 06/17/2022 7:32 AM EDT [facility] Anion Gap 13 9 - 20 06/17/2022 7:32 AM EDT [facility] BUN 27(H) 7 - 22 mg/dL 06/17/2022 7:32 AM EDT [facility] Creatinine 0.79 0.55 - 1.02 mg/dL 06/17/2022 7:32 AM EDT [facility] BUN/Creatinine 34(H) 8 - 20 06/17/2022 7:32 AM EDT [facility] Glucose 91 74 - 106 mg/dL 06/17/2022 7:32 AM EDT [facility] Calcium 10.1 8.4 - 10.1 mg/dL 06/17/2022 7:32 AM EDT [facility] Osmolality Calc 274.8 7:32 AM EDT [facility] eGFR (mL/min/1.73m2) >60 >=60 mL/min/1.7 3m2 06/17/2022 7:32 AM EDT [facility] Comment:eGFR of <60 suggests chronic kidney disease if found over a 3 month period of time. eGFR <15 indicates renal failure. Blood Venipuncture / Unknown 06/17/2022 6:01 AM EDT 06/17/2022 7:08 AM EDT Narrative [facility] - 06/17/2022 7:32 AM EDT As of 05-04-2022 date, reported eGFR is based on the CKD-EPI 2020 equation that does not use a race coefficient. Laboratory Report for eGFR of 45-59 mL/min/1.73m2- For eGFR of 45-59 mL/min/1.73m2, NKF KDOQI and KDIGO guidelines recommend one - time confirmation of eGFR calculated using both creatinine and cystatin C. Cystatin C is recommended in the outpatient patient setting for purposes of confirming chronic kidney disease, rather than in the acute setting for acute kidney injury or failure. Simin Umanzor APRN LAB BLOOD ORDERABLES Final R [facility] [address] [phone] * Cortisol (06/17/2022 6:00 AM EDT) Cortisol Level (mcg/dL) 1.0 mcg/dL 06/17/2022 7:50 AM EDT [facility] Blood Venipuncture / Unknown 06/17/2022 6:00 AM EDT 06/17/2022 7:08 AM EDT Simin Erna [facility] LAB BLOOD ORDERABLES Final R [facility] [address] [phone] * (ABNORMAL) Basic Metabolic Panel (06/16/2022 12:46 PM EDT) Sodium 140 136 - 146 meq/L 06/16/2022 1:05 PM EDT [facility] Potassium 4.1 3.5 - 5.1 meq/L 06/16/2022 1:05 PM EDT [facility] Chloride 111 102 - 112 meq/L 06/16/2022 1:05 PM EDT [facility] CO2 22 21 - 32 meq/L 06/16/2022 1:05 PM EDT [facility] Anion Gap 11 9 - 20 06/16/2022 1:05 PM EDT [facility] BUN 26(H) 7 - 22 mg/dL 06/16/2022 1:05 PM EDT [facility] Creatinine 0.76 0.55 - 1.02 mg/dL 06/16/2022 1:05 PM EDT [facility] BUN/Creatinine 34(H) 8 - 20 06/16/2022 1:05 PM EDT [facility] Glucose 102 74 - 106 mg/dL 06/16/2022 1:05 PM EDT [facility] Calcium 9.6 8.4 - 10.1 mg/dL 06/16/2022 1:05 PM EDT [facility] Osmolality Calc 284.4 1:05 PM EDT [facility] eGFR (mL/min/1.73m2) >60 >=60 mL/min/1.7 3m2 06/16/2022 1:05 PM EDT [facility] Comment:eGFR of <60 suggests chronic kidney disease if found over a 3 month period of time. eGFR <15 indicates renal failure. Blood Venipuncture / Unknown 06/16/2022 12:46 PM EDT 06/16/2022 12:53 PM EDT [facility] - 06/16/2022 1:05 PM EDT As of 05-04-2022 date, reported eGFR is based on the CKD-EPI 2020 equation that does not use a race coefficient. Laboratory Report for eGFR of 45-59 mL/min/1.73m2- For eGFR of 45-59 mL/min/1.73m2, NKF KDOQI and KDIGO guidelines recommend one - time confirmation of eGFR calculated using both creatinine and cystatin C. Cystatin C is recommended in the outpatient patient setting for purposes of confirming chronic kidney disease, rather than in the acute setting for acute kidney injury or failure. us Simin Umanzor APRN LAB BLOOD ORDERABLES Final R esult [facility] [address] [phone] * (ABNORMAL) CBC with automated diff (06/16/2022 5:42 AM EDT) WBC 7.7 4.5 - 10.5 K/??L 06/16/2022 6:18 AM EDT [facility] RBC 3.46(L) 3.93 - 5.22 M/??L 06/16/2022 6:18 AM EDT [facility] Hemoglobin 11.1(L) 11.2 - 15.7 GM/DL 06/16/2022 6:18 AM EDT [facility] Hematocrit 33.7(L) 34.1 - 44.9 % 06/16/2022 6:18 AM EDT [facility] MCV 97(H) 79 - 95 fL 06/16/2022 6:18 AM EDT [facility] MCH 32.1 25.6 - 32.2 pg 06/16/2022 6:18 AM EDT [facility] MCHC 32.9 32.2 - 36.5 GM/DL 06/16/2022 6:18 AM EDT [facility] RDW 14.6 11.7 - 14.9 % 06/16/2022 6:18 AM EDT [facility] Platelets 260 163 - 369 K/CU MM 06/16/2022 6:18 AM EDT [facility] MPV 10.8 9.4 - 12.4 fL 06/16/2022 6:18 AM EDT [facility] % Neutros 61 34 - 71 % 06/16/2022 6:18 AM EDT [facility] % Lymphs 24 19 - 53 % 06/16/2022 6:18 AM EDT [facility] % Monos 12(H) 3 - 9 % 06/16/2022 6:18 AM EDT [facility] % Eos 2(H) 0 - 1 % 06/16/2022 6:18 AM EDT [facility] % Baso 0 0 - 2 % 06/16/2022 6:18 AM EDT [facility] NRBC Absolute 0.00 0 - 0.12 K/ul 06/16/2022 6:18 AM EDT [facility] # Neutros 4.64 1.56 - 6.13 K/??L 06/16/2022 6:18 AM EDT [facility] # Lymphs 1.83 1.00 - 3.50 K/??L 06/16/2022 6:18 AM EDT [facility] # Monos 0.92 0.16 - 1.00 K/??L 06/16/2022 6:18 AM EDT [facility] # Eos 0.18 0.00 - 0.80 K/??L 06/16/2022 6:18 AM EDT [facility] # Baso 0.03 0.00 - 0.20 K/??L 06/16/2022 6:18 AM EDT [facility] Immature Granulocytes-Re lative 1.00(H) 0.00 - 0.60 % 06/16/2022 6:18 AM EDT [facility] # IG 0.08(H) 0.00 - 0.05 K/uL 06/16/2022 6:18 AM EDT [facility] Blood Venipuncture / Unknown 06/16/2022 5:42 AM EDT 06/16/2022 6:04 AM EDT Narrative [facility] - 06/16/2022 6:18 AM EDT When CBC w/ Auto Diff is ordered the lab will add a Manual Differential as a quality check at no additional charge if: Lymphocytes greater than seventy five percent with normal or increased WBC Monocytes greater than Fifteen percent Basophil greater than four percent Bands >10% or several immature myeloids are seen on scan Blast? Flag noted Atypical Lymph flag noted us Aayush Chew DO LAB BLOOD ORDERABLES Final Res ult [facility] [address] [place] [id number] [phone] * Urinalysis, Reflex Microscopic and Culture If Indicated (06/15/2022 11:19 AM EDT) Color, UA Light Yellow 06/15/2022 12:00 PM EDT [facility] Clarity, UA Clear Clear 06/15/2022 12:00 PM EDT [facility] Specific [place], UA 1.012 1.005 - 1.030 06/15/2022 12:00 PM EDT [facility] pH, UA 7.0 6.0 - 8.0 06/15/2022 12:00 PM EDT [facility] Leukocytes, UA Negative Negative 06/15/2022 12:00 PM EDT [facility] Nitrite, UA Negative Negative 06/15/2022 12:00 PM EDT [facility] Protein, UA Negative Negative 06/15/2022 12:00 PM EDT [facility] Glucose, UA Normal Normal 06/15/2022 12:00 PM EDT [facility] Ketones, UA Negative Negative 06/15/2022 12:00 PM EDT [facility] Bilirubin, UA Negative Negative 06/15/2022 12:00 PM EDT [facility] Blood, UA Negative Negative 06/15/2022 12:00 PM EDT [facility] Urobilinogen, UA Normal Normal 06/15/2022 12:00 PM EDT [facility] Specimen Source Urine, Clean Catch 06/15/2022 12:00 PM EDT [facility] Urine URINE SPECIMEN COLLECTION, CLEAN CATCH / Unknown 06/15/2022 11:19 AM EDT 06/15/2022 11:49 AM EDT us Robby Machuca PA-C URINE ORDERABLES Final Result [facility] [address] [phone] * (ABNORMAL) CBC with automated diff (06/15/2022 6:47 AM EDT) WBC 7.4 4.5 - 10.5 K/??L 06/15/2022 7:19 AM EDT [facility] RBC 3.66(L) 3.93 - 5.22 M/??L 06/15/2022 7:19 AM EDT [facility] Hemoglobin 11.8 11.2 - 15.7 GM/DL 06/15/2022 7:19 AM EDT [facility] Hematocrit 34.8 34.1 - 44.9 % 06/15/2022 7:19 AM EDT [facility] MCV 95 79 - 95 fL 06/15/2022 7:19 AM EDT [facility] MCH 32.2 25.6 - 32.2 pg 06/15/2022 7:19 AM EDT [facility] MCHC 33.9 32.2 - 36.5 GM/DL 06/15/2022 7:19 AM EDT [facility] RDW 14.6 11.7 - 14.9 % 06/15/2022 7:19 AM EDT [facility] Platelets 267 163 - 369 K/CU MM 06/15/2022 7:19 AM EDT [facility] MPV 10.9 9.4 - 12.4 fL 06/15/2022 7:19 AM EDT [facility] % Neutros 63 34 - 71 % 06/15/2022 7:19 AM EDT [facility] % Lymphs 23 19 - 53 % 06/15/2022 7:19 AM EDT [facility] % Monos 12(H) 3 - 9 % 06/15/2022 7:19 AM EDT [facility] % Eos 1 0 - 1 % 06/15/2022 7:19 AM EDT [facility] % Baso 0 0 - 2 % 06/15/2022 7:19 AM EDT [facility] NRBC Absolute 0.00 0 - 0.12 K/ul 06/15/2022 7:19 AM EDT [facility] # Neutros 4.67 1.56 - 6.13 K/??L 06/15/2022 7:19 AM EDT [facility] # Lymphs 1.68 1.00 - 3.50 K/??L 06/15/2022 7:19 AM EDT [facility] [facility] # Monos 0.91 0.16 - 1.00 K/??L 06/15/2022 7:19 AM EDT [facility] # Eos 0.05 0.00 - 0.80 K/??L 06/15/2022 7:19 AM EDT [facility] # Baso 0.02 0.00 - 0.20 K/??L 06/15/2022 7:19 AM EDT [facility] Immature Granulocytes-Re lative 0.80(H) 0.00 - 0.60 % 06/15/2022 7:19 AM EDT [facility] # IG 0.06(H) 0.00 - 0.05 K/uL 06/15/2022 7:19 AM EDT [facility] Blood Venipuncture / Unknown 06/15/2022 6:47 AM EDT 06/15/2022 7:01 AM EDT Narrative [facility] - 06/15/2022 7:19 AM EDT When CBC w/ Auto Diff is ordered the lab will add a Manual Differential as a quality check at no additional charge if: Lymphocytes greater than seventy five percent with normal or increased WBC Monocytes greater than Fifteen percent Basophil greater than four percent Bands >10% or several immature myeloids are seen on scan Blast? Flag noted Atypical Lymph flag noted us Aayush Chew DO LAB BLOOD ORDERABLES Final Res ult [facility] [address] [phone] * ECG 12 lead (06/14/2022 8:17 AM EDT) VENTRICULAR RATE EKG/MIN 83 BPM GE MUSE ATRIAL RATE (MCT) 83 BPM GE MUSE AR Interval 156 ms GE MUSE QRS-INTERVAL (MSEC) 94 ms GE MUSE QT Interval 410 ms GE MUSE QTC Interval 481 ms GE MUSE P [employer] 50 degrees GE MUSE R AXIS (MCT) -3 degrees GE MUSE T Wave [employer] 62 degrees GE MUSE [place] Diagnosis Normal sinus rhythm Incomplete right bundle branch block Nonspecific ST abnormality Abnormal ECG When compared with ECG of 13-JUN-2022 14:26, Incomplete right bundle branch block is now present Confirmed by MD Tod, Abebe ([id number]), research editor Joshua Casillas ([id number]) on 06/16/2022 10:36:22 PM GE MUSE 06/14/2022 8:17 AM EDT 06/16/2022 10:36 PM EDT us Maricarmen Angle PA-C ECG ORDERABLES Final Result Performing Organization Address City/[facility]/ZIP Co de Phone Number GE MUSE * (ABNORMAL) PROBNP (06/14/2022 5:27 AM EDT) Pathologist [facility] ProBNP (pg/mL) 14,793(H) 0 - 450 pg/mL 06/14/2022 6:37 AM EDT [facility] Blood Venipuncture / Unknown 06/14/2022 5:27 AM EDT 06/14/2022 5:59 AM EDT Maricarmen [facility] PA-C LAB BLOOD ORDERABLES Final R esult Performing Organization Address City/[facility]/ZIP Co de Phone Number [facility] [address] [place] [address] * (ABNORMAL) Basic Metabolic Panel (06/14/2022 5:27 AM EDT) [facility] Sodium 139 136 - 146 meq/L 06/14/2022 6:37 AM EDT [facility] Potassium 4.1 3.5 - 5.1 meq/L 06/14/2022 6:37 AM EDT [facility] Chloride 110 102 - 112 meq/L 06/14/2022 6:37 AM EDT [facility] CO2 18(L) 21 - 32 meq/L 06/14/2022 6:37 AM EDT [facility] Anion Gap 15 9 - 20 06/14/2022 6:37 AM EDT [facility] BUN 19 7 - 22 mg/dL 06/14/2022 6:37 AM EDT [facility] Creatinine 0.67 0.55 - 1.02 mg/dL 06/14/2022 6:37 AM EDT [facility] BUN/Creatinine 28(H) 8 - 20 06/14/2022 6:37 AM EDT [facility] Glucose 97 74 - 106 mg/dL 06/14/2022 6:37 AM EDT [facility] Calcium 9.3 8.4 - 10.1 mg/dL 06/14/2022 6:37 AM EDT [facility] Osmolality Calc 279.7 6:37 AM EDT [facility] eGFR (mL/min/1.73m2) >60 >=60 mL/min/1.7 3m2 06/14/2022 6:37 AM EDT [facility] Comment:eGFR of <60 suggests chronic kidney disease if found over a 3 month period of time. eGFR <15 indicates renal failure. Blood Venipuncture / Unknown 06/14/2022 5:27 AM EDT 06/14/2022 5:59 AM EDT [facility] - 06/14/2022 6:37 AM EDT As of 05-04-2022 date, reported eGFR is based on the CKD-EPI 2020 equation that does not use a race coefficient. Laboratory Report for eGFR of 45-59 mL/min/1.73m2- For eGFR of 45-59 mL/min/1.73m2, NKF KDOQI and KDIGO guidelines recommend one - time confirmation of eGFR calculated using both creatinine and cystatin C. Cystatin C is recommended in the outpatient patient setting for purposes of confirming chronic kidney disease, rather than in the acute setting for acute kidney injury or failure. us Maricarmen Can PA-C LAB BLOOD ORDERABLES Final R esult [facility] [address] [phone] * (ABNORMAL) CBC with automated diff (06/14/2022 5:27 AM EDT) WBC 8.7 4.5 - 10.5 K/??L 06/14/2022 6:10 AM EDT [facility] RBC 3.31(L) 3.93 - 5.22 M/??L 06/14/2022 6:10 AM EDT [facility] Hemoglobin 10.6(L) 11.2 - 15.7 GM/DL 06/14/2022 6:10 AM EDT [facility] Hematocrit 31.8(L) 34.1 - 44.9 % 06/14/2022 6:10 AM EDT [facility] MCV 96(H) 79 - 95 fL 06/14/2022 6:10 AM EDT [facility] MCH 32.0 25.6 - 32.2 pg 06/14/2022 6:10 AM EDT [facility] MCHC 33.3 32.2 - 36.5 GM/DL 06/14/2022 6:10 AM EDT [facility] RDW 14.4 11.7 - 14.9 % 06/14/2022 6:10 AM EDT [facility] Platelets 233 163 - 369 K/CU MM 06/14/2022 6:10 AM EDT [facility] MPV 10.7 9.4 - 12.4 fL 06/14/2022 6:10 AM EDT [facility] % Neutros 74(H) 34 - 71 % 06/14/2022 6:10 AM EDT [facility] % Lymphs 14(L) 19 - 53 % 06/14/2022 6:10 AM EDT [facility] % Monos 11(H) 3 - 9 % 06/14/2022 6:10 AM EDT [facility] % Eos 0 0 - 1 % 06/14/2022 6:10 AM EDT [facility] % Baso 0 0 - 2 % 06/14/2022 6:10 AM EDT [facility] NRBC Absolute 0.00 0 - 0.12 K/ul 06/14/2022 6:10 AM EDT [facility] # Neutros 6.40(H) 1.56 - 6.13 K/??L 06/14/2022 6:10 AM EDT [facility] # Lymphs 1.25 1.00 - 3.50 K/??L 06/14/2022 6:10 AM EDT [facility] # Monos 0.97 0.16 - 1.00 K/??L 06/14/2022 6:10 AM EDT [facility] # Eos 0.02 0.00 - 0.80 K/??L 06/14/2022 6:10 AM EDT [facility] # Baso 0.01 0.00 - 0.20 K/??L 06/14/2022 6:10 AM EDT [facility] Immature Granulocytes-Re lative 0.50 0.00 - 0.60 % 06/14/2022 6:10 AM EDT [facility] # IG 0.04 0.00 - 0.05 K/uL 06/14/2022 6:10 AM EDT [facility] Blood Venipuncture / Unknown 06/14/2022 5:27 AM EDT 06/14/2022 5:58 AM EDT Narrative [facility] - 06/14/2022 6:10 AM EDT When CBC w/ Auto Diff is ordered the lab will add a Manual Differential as a quality check at no additional charge if: Lymphocytes greater than seventy five percent with normal or increased WBC Monocytes greater than Fifteen percent Basophil greater than four percent Bands >10% or several immature myeloids are seen on scan Blast? Flag noted Atypical Lymph flag noted us Aayush Chew DO LAB BLOOD ORDERABLES Final Res ult [facility] [address] [phone] * ECG 12 lead (06/13/2022 2:26 PM EDT) VENTRICULAR RATE EKG/MIN 78 BPM GE MUSE ATRIAL RATE (MCT) 78 BPM GE MUSE AR Interval 158 ms GE MUSE QRS-INTERVAL (MSEC) 90 ms GE MUSE QT Interval 388 ms GE MUSE QTC Interval 442 ms GE MUSE P [employer] 58 degrees GE MUSE R AXIS (MCT) -19 degrees GE MUSE T Wave [employer] 65 degrees GE MUSE [place] Diagnosis Age and gender specific ECG analysis Normal sinus rhythm ST abnormality, possible digitalis effect Abnormal ECG When compared with ECG of 11-MAY-2022 06:18, Vent. rate has decreased BY ??61 BPM Questionable change in QRS duration Criteria for Anterior infarct are no longer present Confirmed by Navjot DOWELL, GRAZYNA ([id number]), research editor SUSAN GAONA ([id number]) on 06/14/2022 11:21:22 AM GE MUSE 06/13/2022 2:26 PM EDT 06/14/2022 11:21 AM EDT Naseem Anderson NEUROPHYSIOLOGY TECH ECG ORDERABLES Final Result Performing Organization Address City/State/[facility] Co sd Phone Number GE MUSE * CARDIAC CATH - LEFT HEART CATH W/ POSSIBLE INTERVENTION (06/13/2022 12:20 PM EDT) Anatomical Region Laterality Modality Heart Other 06/13/2022 10:5 4 AM EDT Narrative 06/13/2022 7:32 PM EDT Cardiac Diagnostic + PCI Report Demographics Patient Name ? JOHN Mallory ?Date of ? 1940 Patient # ?[id number] ?Accession # ? [id number] ?Medical Record # Physician ?ARSLAN PORRAS DO ?Date of Study ? 06/13/2022 Referring ?RACQUEL PENA ?? Interventional Physician ?MD ?physician Diagnostic Cath Status: Urgent Interventional Cath Status: Urgent Procedure Procedure Type Diagnostic procedure: LHC/Coronaries w/wo LV gram, SUMMER Angiogram, SVG Angiogram PCI procedure: Stent - ANGELICA, Intravascular Lithotripsy Indications: Angina and Abnormal ECG. The procedure was explained in detail to the patient. Risks, complications and alternative treatments were reviewed. Written consent was obtained. Conclusions Procedure Description Procedure performed 1. Ultrasound interrogation of right common femoral artery with access obtained under ultrasound guidance 2. Selective left and right coronary angiography 3. Angiography of vein graft stump 1 4. Angiography of vein graft stump #2 5. Angiography of vein graft stump #3. 6. Angiography of the RIVERA to the LAD 7. LVEDP measurement 8. Successful balloon angioplasty and stenting of subtotal occlusion of proximal circumflex heavily calcified lesion 99% reduced to 10% -predilated with shockwave balloon 3.5 and treated with Kiran 3.5 x 15 drug-eluting stent which was postdilated with a 4.0 noncompliant balloon atmospheres 9. Iliofemoral angiography with Angio-Seal to the right common femoral artery Indications Non-ST elevation ME Procedure Patient was brought to the cardiac Production Team Leader on arrival the patient was hemodynamically stable. The right groin was draped and prepped in sterile fashion 2% lidocaine was used anesthetize groin ultrasound interrogation was performed. Common femoral artery is normal. Bifurcational. Pulsatile flow was noted. Under ultrasound guidance access obtained with a 6 [place] sheath introduced accordingly. Using a standard set of diagnostic catheters selective left and right coronary angiography was performed. In addition using the JR catheter angiography of vein graft stump 1 2 and 3 was performed. Using the same diagnostic catheter RIVERA angiography to the LAD was performed. Review of anatomy revealed a subtotal occlusion of the proximal portion of the circumflex. The lesion itself is very fibrotic and densely calcified. It was felt this was probably the culprit behind her ACS picture. Decision was to proceed with intervention. The patient received heparin boluses with serial CT monitoring throughout the procedure. In addition the patient is on Brilinta therapy. JL 4 guiding catheter was introduced into the ascending aorta. Left main was engaged. Through this catheter was advanced a run-through wire and positioned in the distal circumflex OM branch. Over the wire was advanced a 2.5 balloon. Predilation of the lesion was performed. A second balloon shockwave 3.5 was introduced. 60 treatments was provided to the lesion. Repeat angiography showed significant improvement. Decision was to proceed with stenting. An Kiran 3.5 x 15 drug-eluting stent was introduced accordingly. The stent was deployed at optimal pressures. There was some degree of underexpansion of the stent in the proximal portion due to the densely fibrotic nature of the lesion. I postdilated the proximal portion of the stent a very aggressively with a 3.5 noncompliant balloon. I then followed with a 4.0 noncompliant balloon to high atmospheres. Repeat angiography showed a better result with less than 10% residual. I thought this point we had a good result with brisk flow through the vessel. I thought that at this point it would be best to stop said procedure. The patient was hemodynamically stable and comfortable. Decision was to terminate as stated. Interventional code was removed. Iliofemoral angiography was performed. Angio-Seal was successfully deployed 6 [place] to the right common femoral artery. Of note the procedure was performed on the cover of heparin with serial CT monitoring throughout the procedure. Procedure Summary Findings LVEDP of 17 Coronary anatomy Left main mild 20 to 30% ostial tapering. Bifurcates properly to LAD and circumflex. LAD-LAD is occluded after the takeoff of septal 1 branch. No reconstitution of the distal LAD notable via left to left collaterals Circumflex-the circumflex leads into a large OM branch which supplies a very large distribution of the lateral wall. Proximal portion of the circumflex reveals a heavily calcified boulder like lesion of around 90%. There is SHEELA-3 flow noted through the circumflex. In the midportion of said circumflex there is about a 50% lesion notable. RCA-the RCA is a very tortuous vessel. It provides a PDA and a moderate-sized PL system. There is an eccentric rat-bite lesion of around 75% just before the takeoff of the PDA. SHEELA-3 flow was noted through that the RCA distribution. Vein graft 1 2 and 3 are occluded as demonstrated by angiography RIVERA to the LAD-the RIVERA is intact. The anastomosis distally is intact. No significant disease notable. SHEELA-3 flow is notable. Postintervention angiogram of the circumflex revealed a well deployed stent with at most 10% residual within the proximal portion. This was evident after aggressive post dilation and was felt to be residual that was adequate considering the severely calcified and fibrotic nature of the lesion. Recommendations Conclusions Non-ST elevation ME as described above Occlusion of all 3 vein grafts Patency of RIVERA to the LAD Culprit lesion is felt to be subtotally occlusive proximal circumflex lesion as described above Residual intermediate level lesion in the RCA as described above Treatment of said high-grade circumflex lesion using drug-eluting stent as described above Plan Patient will be maintained on aggressive antiplatelet therapy. We will see if the patient clinically does. We discussed the findings at length with the patient's family and they are appreciative of care. Angiographic Findings Coronary Arteries and Lesion Findings LCx: ??Lesion on Mid CX: ??Devices used ??- Emerge Balloon MR 2.5x15. 2 inflation(s) to a max pressure of: 15 ??basilio. ??- Powell Harford RX 3.5x15 Stent. 1 inflation(s) to a max pressure of: ??14 basilio. ??- NC Emerge MR Balloon 3.5 x 6. 1 inflation(s) to a max pressure of: 15 ??basilio. ??- NC Emerge MR Balloon 4.0 x 6. 1 inflation(s) to a max pressure of: 13 ??basilio. Procedure Data Procedure Date Date: 06/13/2022Start: 10:54End: 12:36 Entry Locations ??- Retrograde Percutaneous access was performed through the Right Femoral ?artery (Primary location). A 6 Fr sheath was inserted. Hemostasis was ?successfully obtained using Angioseal. Procedure Medications ??- Oxygen NC 2 l/min. ??- Versed I.V. 1 mg. ??- Fentanyl I.V. 50 mcg. ??- Versed I.V. 0.5 mg. ??- Fentanyl I.V. 25 mcg. ??- Versed I.V. 0.5 mg. ??- Fentanyl I.V. 25 mcg. ??- Heparin I.V. bolus 4000 units. ??- Nitroglycerin I.A. 200 mcg. ??- Versed I.V. 1 mg. ??- Fentanyl I.V. 25 mcg. ??- Heparin I.V. bolus 1000 units. ??- Normal Saline I.V. bolus 250 ml. ??- Normal Saline I.V. 100 ml/hr. Diagnostic Catheters ??- A6F Expo FL4 Catheterwas used for: left coronary angiography. ??- A6F Expo FR4 Catheterwas used for: pressure measurement. ??- A6F Expo FR4 Catheterwas used for: right coronary angiography. ??- A6F Expo FR4 Catheterwas used for:SVG. ??- A6F Expo FR4 Catheterwas used for:RIVERA. ??- A6F Expo 145 Angled Pigtail Catheterwas used for:Was not used. Contrast Material ??- [id number] ml Fluoroscopy Time: Total: 18:24 minutes. Fluoroscopy Dose: Total: 1293 mGy. Medical History Allergies ??- Bactrim. ??- Morphine:(claritin). ??- Sulfa. Risk Factors The patient risk factors include:prior CABG;treated hypercholesterolemia, treated hypertension, last creatinine: 0.8 mg/dl and creatinine clearance: 58.24 ml/min. Admission Data Hemodynamics Condition: Baseline O2 Consumption: Estimated: 211.25Heart Rate: 81 bpm Pressures (mmHg) +-----+ + !Site !Pressure ?! +-----+ + !AO ?? !163/163 (106) ? ! +-----+ + !LV ?? !165/ ,15 ?! +-----+ + !LV ?? !158/ ,156 ?! +-----+ + !AO ?? !175/78 (121) ?! +-----+ + !LV ?? !180/10 ,11 ?! +-----+ + !AO ?? !179/90 (130) ?! +-----+ + Valve Gradients and Areas + +---------+---------+---------+ +---------+ + !Valve ?!Peak ? !Mean ? !Area ? !Index ? !Flow ? !Source ? ! + +---------+---------+---------+ +---------+ + !Aortic ? !5 ?!0 ?! ? ! ?! ? ! ? ! + +---------+---------+---------+ +---------+ + !Aortic ? !5 ?!0 ?! ? ! ?! ? ! ? ! + +---------+---------+---------+ +---------+ + Shunts Oxygen Values O2 Consumption 211.25 Signatures Procedure Note Arslan Porras DO - 06/13/2022 Cardiac Diagnostic + PCI Report Demographics Patient Name JOHN Mallory Date of 1940 Patient # [id number] Medical Record # Physician ARSLAN PORRAS DO Date of Study 06/13/2022 Referring RACQUEL PENA Interventional Physician physician Diagnostic Cath Status: Urgent Interventional Cath Status: Urgent Procedure Procedure Type Diagnostic procedure: LHC/Coronaries w/wo LV gram, SUMMER Angiogram, SVG Angiogram PCI procedure: Stent - ANGELICA, Intravascular Lithotripsy Indications: Angina and Abnormal ECG. The procedure was explained in detail to the patient. Risks,complications and alternative treatments were reviewed. Written consent was obtained. Conclusions Procedure Description Procedure performed 1. Ultrasound interrogation of right common femoral artery with access obtained under ultrasound guidance 2. Selective left and right coronary angiography 3. Angiography of vein graft stump 1 4. Angiography of vein graft stump #2 5. Angiography of vein graft stump #3. 6. Angiography of the RIVERA to the LAD 7. LVEDP measurement 8. Successful balloon angioplasty and stenting of subtotal occlusion of proximal circumflex heavily calcified lesion 99% reduced to 10%-predilated with shockwave balloon 3.5 and treated with Kiran 3.5 x 15 drug-elutingstent which was postdilated with a 4.0 noncompliant balloon atmospheres 9. Iliofemoral angiography with Angio-Seal to the right common femoral artery Indications Non-ST elevation ME Procedure Patient was brought to the cardiac Production Team Leader on arrival the patient was hemodynamically stable. The right groin was draped and prepped insterile fashion 2% lidocaine was used anesthetize groin ultrasound interrogationwas performed. Common femoral artery is normal. Bifurcational. Pulsatileflow was noted. Under ultrasound guidance access obtained with a 6 Frenchsheath introduced accordingly. Using a standard set of diagnostic catheters selective left and right coronary angiography was performed. In addition using the JR catheter angiography of vein graft stump 1 2 and 3 was performed. Using the same diagnostic catheter RIVERA angiography to theLAD was performed. Review of anatomy revealed a subtotal occlusion of the proximal portion of the circumflex. The lesion itself is very fibroticand densely calcified. It was felt this was probably the culprit behind herACS picture. Decision was to proceed with intervention. The patient received heparin boluses with serial CT monitoring throughout the procedure. In addition the patient is on Brilinta therapy. JL 4 guiding catheter was introduced into the ascending aorta. Left main was engaged. Through this catheter was advanced a run-through wire and positioned in the distal circumflex OM branch. Over the wire was advanced a 2.5 balloon.Predilation of the lesion was performed. A second balloon shockwave 3.5 wasintroduced. 60 treatments was provided to the lesion. Repeat angiography showed significant improvement. Decision was to proceed with stenting. An Onyx3.5 x 15 drug-eluting stent was introduced accordingly. The stent wasdeployed at optimal pressures. There was some degree of underexpansion of thestent in the proximal portion due to the densely fibrotic nature of the lesion.I postdilated the proximal portion of the stent a very aggressively with a3.5 noncompliant balloon. I then followed with a 4.0 noncompliant balloon to high atmospheres. Repeat angiography showed a better result with lessthan 10% residual. I thought this point we had a good result with brisk flow through the vessel. I thought that at this point it would be best tostop said procedure. The patient was hemodynamically stable and comfortable. Decision was to terminate as stated. Interventional code was removed. Iliofemoral angiography was performed. Angio-Seal was successfullydeployed 6 [place] to the right common femoral artery. Of note the procedure was performed on the cover of heparin with serial CT monitoring throughoutthe procedure. Procedure Summary Findings LVEDP of 17 Coronary anatomy Left main mild 20 to 30% ostial tapering. Bifurcates properly to LAD and circumflex. LAD-LAD is occluded after the takeoff of septal 1 branch. Noreconstitution of the distal LAD notable via left to left collaterals Circumflex-the circumflex leads into a large OM branch which supplies lisa large distribution of the lateral wall. Proximal portion of thecircumflex reveals a heavily calcified boulder like lesion of around 90%. There is SHEELA-3 flow noted through the circumflex. In the midportion of said circumflex there is about a 50% lesion notable. RCA-the RCA is a very tortuous vessel. It provides a PDA and a moderate-sized PL system. There is an eccentric rat-bite lesion ofaround 75% just before the takeoff of the PDA. SHEELA-3 flow was noted throughthat the RCA distribution. Vein graft 1 2 and 3 are occluded as demonstrated by angiography RIVERA to the LAD-the RIVERA is intact. The anastomosis distally is intact.No significant disease notable. SHEELA-3 flow is notable. Postintervention angiogram of the circumflex revealed a well deployedstent with at most 10% residual within the proximal portion. This was evident after aggressive post dilation and was felt to be residual that wasadequate considering the severely calcified and fibrotic nature of the lesion. Recommendations Conclusions Non-ST elevation ME as described above Occlusion of all 3 vein grafts Patency of RIVERA to the LAD Culprit lesion is felt to be subtotally occlusive proximal circumflexlesion as described above Residual intermediate level lesion in the RCA as described above Treatment of said high-grade circumflex lesion using drug-eluting stentas described above Plan Patient will be maintained on aggressive antiplatelet therapy. We willsee if the patient clinically does. We discussed the findings at length withthe patient's family and they are appreciative of care. Angiographic Findings Coronary Arteries and Lesion Findings LCx: Lesion on Mid CX: Devices used - Emerge Balloon MR 2.5x15. 2 inflation(s) to a max pressure of: 15 basilio. - Powell Harford RX 3.5x15 Stent. 1 inflation(s) to a max pressure of: 14 basilio. - NC Emerge MR Balloon 3.5 x 6. 1 inflation(s) to a max pressure of:15 basilio. - NC Emerge MR Balloon 4.0 x 6. 1 inflation(s) to a max pressure of:13 basilio. Procedure Data Procedure Date Date: 06/13/2022Start: 10:54End: 12:36 Entry Locations - Retrograde Percutaneous access was performed through the RightFemoral artery (Primary location). A 6 Fr sheath was inserted. Hemostasiswas successfully obtained using Angioseal. Procedure Medications - Oxygen NC 2 l/min. - Versed I.V. 1 mg. - Fentanyl I.V. 50 mcg. - Versed I.V. 0.5 mg. - Fentanyl I.V. 25 mcg. - Versed I.V. 0.5 mg. - Fentanyl I.V. 25 mcg. - Heparin I.V. bolus 4000 units. - Nitroglycerin I.A. 200 mcg. - Versed I.V. 1 mg. - Fentanyl I.V. 25 mcg. - Heparin I.V. bolus 1000 units. - Normal Saline I.V. bolus 250 ml. - Normal Saline I.V. 100 ml/hr. Diagnostic Catheters - A6F Expo FL4 Catheterwas used for: left coronary angiography. - A6F Expo FR4 Catheterwas used for: pressure measurement. - A6F Expo FR4 Catheterwas used for: right coronary angiography. - A6F Expo FR4 Catheterwas used for:SVG. - A6F Expo FR4 Catheterwas used for:RIVERA. - A6F Expo 145 Angled Pigtail Catheterwas used for:Was not used. Contrast Material - [id number] ml Fluoroscopy Time: Total: 18:24 minutes. Fluoroscopy Dose: Total: 1293 mGy. Medical History Allergies - Bactrim. - Morphine:(claritin). - Sulfa. Risk Factors The patient risk factors include:prior CABG;treatedhypercholesterolemia, treated hypertension, last creatinine: 0.8 mg/dl and creatinineclearance: 58.24 ml/min. Admission Data Hemodynamics Condition: Baseline O2 Consumption: Estimated: 211.25Heart Rate: 81 bpm Pressures (mmHg) +-----+ + !Site !Pressure! +-----+ + !AO !163/163 (106)! +-----+ + !LV !165/11 ,15! +-----+ + !LV !158/9 ,156! +-----+ + !AO !175/78 (121)! +-----+ + !LV !180/10 ,11! +-----+ + !AO !179/90 (130)! +-----+ + Valve Gradients and Areas + +---------+---------+---------+ +---------+ + !Valve !Peak !Mean !Area !Index !Flow !Source! + +---------+---------+---------+ +---------+ + !Aortic !5 !0 ! ! ! !! + +---------+---------+---------+ +---------+ + !Aortic !5 !0 ! ! ! !! + +---------+---------+---------+ +---------+ + Shunts Oxygen Values O2 Consumption 211.25 Signatures Sumanth Lauerano APRN CV CARDIAC CATH ORDERABLES Final Result * (ABNORMAL) POC ACTIVATED CLOTTING TIME (06/13/2022 11:48 AM EDT) Activated Clotting Time 239(H) 74 - 137 sec 06/13/2022 12:34 PM EDT [facility] Home Health Billing Specialist [phone] 06/13/2022 12:34 PM EDT [facility] Blood 06/13/2022 11:4 8 AM EDT 06/13/2022 12:34 PM EDT Narrative [facility] - 06/13/2022 12:34 PM EDT Home Health Billing Specialist ID is - [id number] Robby Machuca PA-C POINT OF CARE TEST ORDERABLES F inal Result [facility] [address] [place] [address], [facility] [phone] * (ABNORMAL) POC ACTIVATED CLOTTING TIME (06/13/2022 11:00 AM EDT) Activated Clotting Time 167(H) 74 - 137 sec 06/13/2022 12:34 PM EDT [facility] Home Health Billing Specialist [phone] 06/13/2022 12:34 PM EDT [facility] Blood 06/13/2022 11:0 0 AM EDT 06/13/2022 12:34 PM EDT Narrative [facility] - 06/13/2022 12:34 PM EDT Home Health Billing Specialist ID is - [id number] Robby Machuca PA-C POINT OF CARE TEST ORDERABLES F inal Result Performing Organization Address City/State/[facility] Co de Phone Number [facility] [address] [phone] * Ultrasound-guided vascular access (06/13/2022 11:00 AM EDT) Anatomical Region Laterality Modality Vascular Vascular Ultraso und 06/13/2022 11:4 8 AM EDT Narrative 06/20/2022 2:10 PM EDT Vascular Procedure Demographics Patient Name ? JOHN Mallory ??Age ? 81 Patient Number ? [id number] ?Gender ?Female ?Race ?Ethnicity Corporate ID ? [id number] ?Height ?62 Date of ?1940 ?Weight ?150 Accession Number ? [id number] ?BSA ? 1.69 m^2 Room Number ?538 ? BMI ? 27.44 kg/m^2 Referring Physician ??ARSLAN PORRAS ?? Interpreting Physician ??ARSLAN PORRAS DO Health Associate ?[facility] Procedure Type of Study: US GUIDED VASCULAR ACCESS : . Impressions Summary INDICATION: Angina at rest I20.8 . RIGHT: Ultrasound guided vascular access of Common femoral artery . COYOTE HUNTER was 3.0 cm in depth and patent. Access was successful. Allergies ??- Bactrim. ??- Morphine:(claritin). ??- Sulfa. Patient Status:Inpatient . Study Location:Portable. Technical Quality:Good visualization. Risk Factors ??- The patient's risk factor(s) include: treated arterial hypertension and ?prior CABG. ??- The patient's last creatinine was 0.8 mg/dl. Signature Procedure Note Arslan Porras DO - 06/20/2022 Vascular Procedure Demographics Patient Name JOHN Mallory Age 81 Patient Number [id number] Gender Female Race Ethnicity Corporate ID [id number] Height 62 Date of 1940 Weight 150 Accession Number [id number] BSA 1.69 m^2 Room Number 538 BMI 27.44 kg/m^2 Referring Physician ARSLAN PORRAS Interpreting Physician ARSLAN VELASCO Health Associate [facility] Procedure Type of Study: US GUIDED VASCULAR ACCESS : . Impressions Summary INDICATION: Angina at rest I20.8 . RIGHT: Ultrasound guided vascular access of Common femoral artery . COYOTE HUNTER was 3.0 cm in depth and patent. Access was successful. Allergies - Bactrim. - Morphine:(claritin). - Sulfa. Patient Status:Inpatient . Study Location:Portable. Technical Quality:Good visualization. Risk Factors - The patient's risk factor(s) include: treated arterial hypertensionand prior CABG. - The patient's last creatinine was 0.8 mg/dl. Signature Arslan Porras DO [facility] US ORDERABLES Final Result * (ABNORMAL) High Sensitivity Troponin I (06/13/2022 9:25 AM EDT) [facility] Troponin I High Sensitivity (pg/mL) 2,951.0(H H) 3 - 58.8 pg/mL 06/13/2022 10:13 AM EDT [facility] Comment: Troponin Result (pg/mL) ? *Interpretation 3-58.8 ? *Normal; less than 99th percentile of normal range >58.8 ?*Abnormal; greater than 99th percentile of normal range The Troponin I test methodology changed. Reporting units are now pg/mL instead of the previously used ng/mL: ??Normal reference ranges, critical cutoffs, specimen type, and comments have changed. ??*See the test change alert bulletin* To determine if a patient is experiencing an AMI with Troponin I, High Sensitivity it is important to use the assay in conjunction with patient presentation, clinical suspicion, and a serial-collection protocol. Biotin specimen concentration >300 ng/mL may lead to falsely depressed results for patient samples. ??Do not use this test for renal dysfunction patients (eGFR <60) unless it is confirmed that the patient is not taking Biotin. Blood Venipuncture / Unknown 06/13/2022 9:25 AM EDT 06/13/2022 9:46 AM EDT us Sumanth Laureano APRN LAB BLOOD ORDERABLES Final Result Performing Organization Address [facility]/ZIP Co de Phone Number [facility] [address] [phone] * (ABNORMAL) PTT Heparin Protocol (06/13/2022 9:25 AM EDT) PTT Heparin 71.4(H) 45 - 65 seconds 06/13/2022 10:04 AM EDT [facility] Blood Venipuncture / Unknown 06/13/2022 9:25 AM EDT 06/13/2022 9:46 AM EDT us Aayush Chew DO LAB BLOOD ORDERABLES Final Res ult Performing Organization Address [facility] Co de Phone Number [facility] [address] [phone] * (ABNORMAL) PTT Heparin Protocol (06/13/2022 5:24 AM EDT) Pathologist [facility] PTT Heparin 23.6(L) 45 - 65 seconds 06/13/2022 5:42 AM EDT [facility] Blood Venipuncture / Unknown 06/13/2022 5:24 AM EDT 06/13/2022 5:27 AM EDT Aayush Chew DO LAB BLOOD ORDERABLES Final Res ult [facility] [address] [phone] * (ABNORMAL) High Sensitivity Troponin I (06/13/2022 5:24 AM EDT) [facility] Troponin I High Sensitivity (pg/mL) 1,454.5(H H) 3 - 58.8 pg/mL 06/13/2022 6:02 AM EDT [facility] Comment: Troponin Result (pg/mL) ? *Interpretation 3-58.8 ? *Normal; less than 99th percentile of normal range >58.8 ?*Abnormal; greater than 99th percentile of normal range The Troponin I test methodology changed. Reporting units are now pg/mL instead of the previously used ng/mL: ??Normal reference ranges, critical cutoffs, specimen type, and comments have changed. ??*See the test change alert bulletin* To determine if a patient is experiencing an AMI with Troponin I, High Sensitivity it is important to use the assay in conjunction with patient presentation, clinical suspicion, and a serial-collection protocol. Biotin specimen concentration >300 ng/mL may lead to falsely depressed results for patient samples. ??Do not use this test for renal dysfunction patients (eGFR <60) unless it is confirmed that the patient is not taking Biotin. Blood Venipuncture / Unknown 06/13/2022 5:24 AM EDT 06/13/2022 5:27 AM EDT Naseem Anderson APRN LAB BLOOD ORDERABLES Final Res ult Performing Organization Address [facility] de Phone Number [facility] [address] [phone] * Prothrombin time/INR (06/13/2022 5:24 AM EDT) Protime 11.0 9.2 - 12.0 seconds 06/13/2022 5:42 AM EDT [facility] INR 1.01 0.90 - 1.20 06/13/2022 5:42 AM EDT [facility] Comment: Recommended therapeutic ranges using International Normalized Ratio (INR) are: INR RANGE 2.0 - 3.0 ? Routine oral anticoagulant therapy 2.5 - 3.5 ? Oral anticoagulant therapy for patients with thromboembolic events on standard doses of Coumadin and those with mechanical heart valves. Blood Venipuncture / Unknown 06/13/2022 5:24 AM EDT 06/13/2022 5:27 AM EDT Aayush Chew DO LAB BLOOD ORDERABLES Final Res ult Performing Organization Address [facility] de Phone Number [facility] [address] [phone] * (ABNORMAL) CBC with automated diff (06/13/2022 5:24 AM EDT) WBC 7.2 4.5 - 10.5 K/??L 06/13/2022 5:38 AM EDT [facility] RBC 3.57(L) 3.93 - 5.22 M/??L 06/13/2022 5:38 AM EDT [facility] Hemoglobin 11.5 11.2 - 15.7 GM/DL 06/13/2022 5:38 AM EDT [facility] Hematocrit 35.3 34.1 - 44.9 % 06/13/2022 5:38 AM EDT [facility] MCV 99(H) 79 - 95 fL 06/13/2022 5:38 AM EDT [facility] MCH 32.2 25.6 - 32.2 pg 06/13/2022 5:38 AM EDT [facility] MCHC 32.6 32.2 - 36.5 GM/DL 06/13/2022 5:38 AM EDT [facility] RDW 14.3 11.7 - 14.9 % 06/13/2022 5:38 AM EDT [facility] Platelets 190 163 - 369 K/CU MM 06/13/2022 5:38 AM EDT [facility] MPV 10.5 9.4 - 12.4 fL 06/13/2022 5:38 AM EDT [facility] % Neutros 82(H) 34 - 71 % 06/13/2022 5:38 AM EDT [facility] % Lymphs 8(L) 19 - 53 % 06/13/2022 5:38 AM EDT [facility] % Monos 9 3 - 9 % 06/13/2022 5:38 AM EDT [facility] % Eos 0 0 - 1 % 06/13/2022 5:38 AM EDT [facility] % Baso 0 0 - 2 % 06/13/2022 5:38 AM EDT [facility] NRBC Absolute 0.00 0 - 0.12 K/ul 06/13/2022 5:38 AM EDT [facility] # Neutros 5.88 1.56 - 6.13 K/??L 06/13/2022 5:38 AM EDT [facility] # Lymphs 0.58(L) 1.00 - 3.50 K/??L 06/13/2022 5:38 AM EDT [facility] # Monos 0.62 0.16 - 1.00 K/??L 06/13/2022 5:38 AM EDT [facility] # Eos 0.02 0.00 - 0.80 K/??L 06/13/2022 5:38 AM EDT [facility] # Baso 0.01 0.00 - 0.20 K/??L 06/13/2022 5:38 AM EDT [facility] Immature Granulocytes-Re lative 0.60 0.00 - 0.60 % 06/13/2022 5:38 AM EDT [facility] # IG 0.04 0.00 - 0.05 K/uL 06/13/2022 5:38 AM EDT [facility] Blood Venipuncture / Unknown 06/13/2022 5:24 AM EDT 06/13/2022 5:27 AM EDT Narrative [facility] - 06/13/2022 5:38 AM EDT When CBC w/ Auto Diff is ordered the lab will add a Manual Differential as a quality check at no additional charge if: Lymphocytes greater than seventy five percent with normal or increased WBC Monocytes greater than Fifteen percent Basophil greater than four percent Bands >10% or several immature myeloids are seen on scan Blast? Flag noted Atypical Lymph flag noted us Aayush Chew DO LAB BLOOD ORDERABLES Final Res ult [facility] [address] [phone] * XR chest AP portable (06/13/2022 4:37 AM EDT) Anatomical Region Laterality Modality Chest X-Ray 06/13/2022 7:32 AM EDT Impressions 06/13/2022 7:47 AM EDT Pulmonary vascular congestion with mild cardiomegaly. Images reviewed, interpreted, and dictated by Dr. Carlos Alberto Hu. Transcribed by Marisel Sandoval PA-C. Narrative 06/13/2022 7:47 AM EDT PORTABLE CHEST HISTORY: Shortness of breath. COMPARISON: June 10, 2022. FINDINGS: Status post median sternotomy. The heart is mildly enlarged in size. There is pulmonary vascular congestion. The lungs are clear. There is no pneumothorax. Procedure Note Carlos Alberto Hu MD - 06/13/2022 PORTABLE CHEST HISTORY: Shortness of breath. COMPARISON: June 10, 2022. FINDINGS: Status post median sternotomy. The heart is mildly enlarged in size. There is pulmonary vascular congestion. The lungs are clear. There is no pneumothorax. IMPRESSION: Pulmonary vascular congestion with mild cardiomegaly. Images reviewed, interpreted, and dictated by Dr. Carlos Alberto Hu. Transcribed by Marisel Sandoval PA-C. Naseem Anderson APRN IMG DIAGNOSTIC IMAGING ORDERAB LES Final Result * (ABNORMAL) Magnesium (06/13/2022 4:29 AM EDT) Magnesium 1.2(L) 1.5 - 2.4 mg/dL 06/13/2022 5:19 AM EDT [facility] Blood Venipuncture / Unknown 06/13/2022 4:29 AM EDT 06/13/2022 4:32 AM EDT Naseem Anderson APRN LAB BLOOD ORDERABLES Final Res ult Performing Organization Address City/[facility]/ZIP Co de Phone Number [facility] [address] [phone] * (ABNORMAL) PROBNP (06/13/2022 4:29 AM EDT) ProBNP (pg/mL) 7,007(H) 0 - 450 pg/mL 06/13/2022 5:19 AM EDT [facility] Blood Venipuncture / Unknown 06/13/2022 4:29 AM EDT 06/13/2022 4:32 AM EDT Naseem Anderson APRN LAB BLOOD ORDERABLES Final Res ult [facility] [address] [phone] * (ABNORMAL) Comprehensive metabolic panel (06/13/2022 4:29 AM EDT) Pathologist [facility] Sodium 139 136 - 146 meq/L 06/13/2022 5:19 AM [facility] Potassium 4.4 3.5 - 5.1 meq/L 06/13/2022 5:19 AM [facility] Chloride 108 102 - 112 meq/L 06/13/2022 5:19 AM [facility] CO2 21 21 - 32 meq/L 06/13/2022 5:19 AM [facility] Calcium 9.1 8.4 - 10.1 mg/dL 06/13/2022 5:19 AM [facility] Glucose 109(H) 74 - 106 mg/dL 06/13/2022 5:19 AM [facility] BUN 16 7 - 22 mg/dL 06/13/2022 5:19 AM [facility] Creatinine 0.80 0.55 - 1.02 mg/dL 06/13/2022 5:19 AM [facility] BUN/Creatinine 20 8 - 20 06/13/2022 5:19 AM [facility] Albumin 2.6(L) 3.4 - 5.0 g/dL 06/13/2022 5:19 AM [facility] Alkaline Phosphatase 60 27 - 136 U/L 06/13/2022 5:19 AM [facility] ALT 20 13 - 56 U/L 06/13/2022 5:19 AM [facility] AST 38(H) 5 - 37 U/L 06/13/2022 5:19 AM [facility] Total Bilirubin 0.4 0.2 - 1.2 mg/dL 06/13/2022 5:19 AM [facility] Protein, Total 6.1(L) 6.4 - 8.2 gm/dL 06/13/2022 5:19 AM [facility] Anion Gap 14 9 - 20 06/13/2022 5:19 AM [facility] A/G Ratio 0.7(L) 1.1 - 2.5 06/13/2022 5:19 AM [facility] Globulin 3.5 1.5 - 4.5 g/dL 06/13/2022 5:19 AM EDT [facility] Osmolality Calc 279.3 5:19 AM EDT [facility] eGFR (mL/min/1.73m2) >60 >=60 mL/min/1.7 3m2 06/13/2022 5:19 AM EDT [facility] Comment:ESTIMATED GFR IS NOT ACCURATE CREATININE CLEARANCE IN PREDICTING GLOMERULAR FILTRATION RATE. ESTIMATED GFR IS NOT APPLICABLE FOR DIALYSIS PATIENTS. Blood Venipuncture / Unknown 06/13/2022 4:29 AM EDT 06/13/2022 4:32 AM EDT Narrative [facility] - 06/13/2022 5:19 AM EDT As of 05-04-2022 date, reported eGFR is based on the CKD-EPI 2020 equation that does not use a race coefficient. Laboratory Report for eGFR of 45-59 mL/min/1.73m2- For eGFR of 45-59 mL/min/1.73m2, NKF KDOQI and KDIGO guidelines recommend one - time confirmation of eGFR calculated using both creatinine and cystatin C. Cystatin C is recommended in the outpatient patient setting for purposes of confirming chronic kidney disease, rather than in the acute setting for acute kidney injury or failure. Naseem Anderson APRN LAB BLOOD ORDERABLES Final Res ult [facility] [address] [phone] * (ABNORMAL) High Sensitivity Troponin I (06/13/2022 4:29 AM EDT) Pathologist [facility] Troponin I High Sensitivity (pg/mL) 1,629.2(H H) 3 - 58.8 pg/mL 06/13/2022 5:00 AM EDT [facility] Comment: Troponin Result (pg/mL) ? *Interpretation 3-58.8 ? *Normal; less than 99th percentile of normal range >58.8 ?*Abnormal; greater than 99th percentile of normal range The Troponin I test methodology changed. Reporting units are now pg/mL instead of the previously used ng/mL: ??Normal reference ranges, critical cutoffs, specimen type, and comments have changed. ??*See the test change alert bulletin* To determine if a patient is experiencing an AMI with Troponin I, High Sensitivity it is important to use the assay in conjunction with patient presentation, clinical suspicion, and a serial-collection protocol. Biotin specimen concentration >300 ng/mL may lead to falsely depressed results for patient samples. ??Do not use this test for renal dysfunction patients (eGFR <60) unless it is confirmed that the patient is not taking Biotin. Blood Venipuncture / Unknown 06/13/2022 4:29 AM EDT 06/13/2022 4:32 AM EDT us Aayush Chew DO LAB BLOOD ORDERABLES Final Res ult Performing Organization Address City/State/[facility] Co de Phone Number [facility] [address] [phone] * ECG 12 lead (06/13/2022 4:21 AM EDT) VENTRICULAR RATE EKG/MIN 96 BPM GE MUSE ATRIAL RATE (MCT) 96 BPM GE MUSE AR Interval 174 ms GE MUSE QRS-INTERVAL (MSEC) 98 ms GE MUSE QT Interval 352 ms GE MUSE QTC Interval 444 ms GE MUSE P [employer] 37 degrees GE MUSE R AXIS (MCT) -44 degrees GE MUSE T Wave [employer] 103 degrees GE MUSE [place] Diagnosis Normal sinus rhythm Left axis deviation Incomplete right bundle branch block Inferior infarct (cited on or before 10-JUN-2022) Anterolateral infarct (cited on or before 10-JUN-2022) ACUTE ME / STEMI Consider right ventricular involvement in acute inferior infarct Abnormal ECG When compared with ECG of 10-JUN-2022 03:57, Questionable change in initial forces of Lateral leads ST now depressed in Lateral leads T wave inversion now evident in Anterolateral leads Confirmed by MD Tod, Ali ([id number]), research editor Joshua Casillas ([id number]) on 06/16/2022 8:10:27 PM GE MUSE 06/13/2022 4:21 AM EDT 06/16/2022 8:10 PM EDT us Aayush Chew DO ECG ORDERABLES Final Result Performing Organization Address [facility]/ZIP Co de Phone Number GE MUSE * Glucose, Nova Meter (06/12/2022 2:42 PM EDT) [facility] POC-GLUCOSE 86 70 - 110 mg/dL 06/12/2022 2:43 PM EDT [facility] Comment: In the event of poor peripheral blood flow, venous or arterial blood should be used due to the potential of erroneous results. Notified Nurse [facility] Home Health Billing Specialist [phone] 06/12/2022 2:43 PM EDT [facility] Blood WHOLE BLOOD / Unknown 06/12/2022 2:42 PM EDT 06/12/2022 2:43 PM EDT Narrative [facility] - 06/12/2022 2:43 PM EDT Home Health Billing Specialist ID is - [id number] us Robby Machuca PA-C POINT OF CARE TEST ORDERABLES F inal Result Performing Organization Address [facility]/ZIP Co de Phone Number [facility] [address] [phone] * Fluoroscopy less than 1 hour (06/12/2022 12:30 PM EDT) Anatomical Region Laterality Modality X-Ray 06/12/2022 4:15 PM EDT Impressions 06/12/2022 4:50 PM EDT See above. Please see operative report for details. Images reviewed, interpreted, and dictated by Dr. Carlos Alberto Hu. Transcribed by Vince Mcmahon (R). Narrative 06/12/2022 4:50 PM EDT FLUOROSCOPY IN THE OR, WITH IMAGES HISTORY: Facetectomy. FINDINGS: Fluoroscopy was provided by the radiology department for the clinical service. Fluoroscopic spot films were obtained. A single fluoroscopic image was obtained for lumbar spine surgery. Fluoroscopy exposure time: 0.22 minutes. Procedure Note Carlos Alberto Hu MD - 06/12/2022 FLUOROSCOPY IN THE OR, WITH IMAGES HISTORY: Facetectomy. FINDINGS: Fluoroscopy was provided by the radiology department for the clinical service. Fluoroscopic spot films were obtained. A single fluoroscopic image was obtained for lumbar spine surgery. Fluoroscopy exposure time: 0.22 minutes. IMPRESSION: See above. Please see operative report for details. Images reviewed, interpreted, and dictated by Dr. Carlos Alberto Hu. Transcribed by Vince Mcmahon (Idris). Edith Odonnell MD IMG FLUOROSCOPY ORDERABLES Fi nal Result * ECHO COMPLETE (DOPPLER / COLOR) WO CONTRAST (06/12/2022 8:10 AM EDT) Anatomical Region Laterality Modality Heart Vascular Ultraso und 06/12/2022 8:10 AM EDT Narrative 06/12/2022 5:37 PM EDT TRANSTHORACIC ECHOCARDIOGRAPHY REPORT Demographics Patient Name: ?JOHN Mallory ?: ?1940 ?Age: ?81 year(s) Corporate ID Number: ?? [id number] ?Gender ?Female Health Associate: ? [address] ??Height: ? 62 inches Referring Physician: ?? ROBBY DAS ?Weight: ? 150 pounds Interpreting ? GRAZYNA DOWELL ?? BMI: ?27.44 kg/m^2 Physician: ? Date of Service: ? 06/12/2022 ?Blood Pressure: 150/73 mmHg Room Number: ? 538 Type of Study: TTE procedure: EC Echo Complete, ECHO COMPLETE (DOPPLER / COLOR) W OR WO CONTRAST. Patient Status: Routine IP Study Location: PortableTechnical Quality: Adequate visualization Impression: Indication: Coronary artery disease I25.10 Moderate left ventricular hypertrophy. Visually estimated ejection fraction 55% +/- 5%. Increased left atrial pressure (Grade II diastolic dysfunction). Abnormal right ventricular function. Moderate tricuspid regurgitation. Mild pulmonary hypertension. No masses or thrombi are seen. Measurements Summary: LVEDd: 3.75 cm ?LVESd: 2.88 cm ? IVSEd: 1.35 cm AO Root:2.8 cm ?LVPWd: 1.28 cm Contractility Score Normal Left Ventricular contractility was noted. LV regional wall motion: (0-Not visualized 1-Normal 2-Hypokinesis 3-Akinesis 4-Dyskinesis 5-Aneurysm) Left Ventricle Peak E-wave: 0.9 ?Peak A-wave: 1.17 m/s ?? E/A ratio: 0.77 m/s ? Volume mtriletkc23.11 ?? LV length: 8.4 cm ml Volume wuhqhrnu49.69 ml LVOT diameter: 2.05 cm Normal sized left ventricle. Moderate left ventricular hypertrophy. Visually estimated ejection fraction 55% +/- 5%. Abnormal strain pattern. Increased left atrial pressure (Grade II diastolic dysfunction). No left ventricular masses or thrombi. Right Ventricle Diastolic dimension: 2.88 ? RV systolic pressure: 43.46 mmHg cm Normal sized right ventricle. Abnormal TAPSE; abnormal right ventricular function. Left Atrium LA dimension: 4.1 cm ? LA volume:39.83 ml LA/Aorta: 1.46 Mild left atrial enlargement. Intact atrial septum. No atrial mass or thrombus. Right Atrium Normal sized right atrium. Intact atrial septum. No atrial mass or thrombus. Mitral Valve Deceleration time: ? Area PHT: 2.39 cm^2 ??Mean velocity: 296.94 msec ?P1/2t: 91.95 msec ?0.87 m/s Area (continuity): ?? Mean gradient: 2.46 cm^2 ?3.24 mmHg Peak gradient: 6.16 mmHg Mitral valve annulus calcification. Thickened mitral valve leaflets. Mild mitral regurgitation. No mitral stenosis. No masses or vegetations seen. Aortic Valve LVOT VTI: 22.32 cm Mildly thickend free edges of the aortic valve leaflets. No aortic regurgitation. No aortic stenosis. No masses or vegetations seen. Tricuspid Valve TR velocity: 3.18 m/s ? TR gradient: 40.66921 mmHg Estimated RAP: 3 mmHg ? RVSP: 43.46 mmHg Moderate tricuspid regurgitation. Mild pulmonary hypertension. No tricuspid stenosis. No masses or vegetations seen. Pulmonic Valve Acceleration time: 138.41 msec ?PASP: 43.46 mmHg Structurally normal pulmonic valve. Trace pulmonic regurgitation. No pulmonic stenosis. No masses or vegetations seen. Great Vessels Aorta Aortic Root: 2.8 cm Ascending Aorta: 2.66 cm LVOT Diameter: 2.05 cm Visualized aorta is normal. Normal aortic root. No evidence of dissection. Normal IVC with appropriate collapse. Pericardium / Pleura No pericardial effusion. Other No masses or thrombi. No intracardiac shunt. Procedure Note Grazyna Dowell MD - 06/12/2022 TRANSTHORACIC ECHOCARDIOGRAPHY REPORT Demographics Patient Name: JOHN Mallory : 1940 Age: 81 year(s) Corporate ID Number: [id number] Gender Female Health Associate: Abby Donis [facility] Height: 62 inches Referring Physician: ROBBY DAS Weight: 150 pounds Interpreting GRAZYNA DOWELL BMI: 27.44 kg/m^2 Physician: Date of Service: 06/12/2022 Blood Pressure: 150/73 mmHg Room Number: 538 Type of Study: TTE procedure: EC Echo Complete, ECHO COMPLETE (DOPPLER / COLOR) W ORWO CONTRAST. Patient Status: Routine IP [facility] Adequate visualization Impression: Indication: Coronary artery disease I25.10 Moderate left ventricular hypertrophy. Visually estimated ejection fraction 55% +/- 5%. Increased left atrial pressure (Grade II diastolic dysfunction). Abnormal right ventricular function. Moderate tricuspid regurgitation. Mild pulmonary hypertension. No masses or thrombi are seen. Measurements Summary: LVEDd: 3.75 cm LVESd: 2.88 cm IVSEd: 1.35 cm AO Root:2.8 cm LVPWd: 1.28 cm Contractility Score Normal Left Ventricular contractility was noted. LV regional wall motion: (0-Not visualized 1-Normal 2-Hypokinesis 3-Akinesis 4-Dyskinesis 5-Aneurysm) Left Ventricle Peak E-wave: 0.9 Peak A-wave: 1.17 m/s E/A ratio: 0.77 m/s Volume .11 LV length: 8.4 cm ml Volume .69 ml LVOT diameter: 2.05 cm Normal sized left ventricle. Moderate left ventricular hypertrophy. Visually estimated ejection fraction 55% +/- 5%. Abnormal strain pattern. Increased left atrial pressure (Grade II diastolic dysfunction). No left ventricular masses or thrombi. Right Ventricle Diastolic dimension: 2.88 RV systolic pressure: 43.46 mmHg cm Normal sized right ventricle. Abnormal TAPSE; abnormal right ventricular function. Left Atrium LA dimension: 4.1 cm LA volume:39.83 ml LA/Aorta: 1.46 Mild left atrial enlargement. Intact atrial septum. No atrial mass or thrombus. Right Atrium Normal sized right atrium. Intact atrial septum. No atrial mass or thrombus. Mitral Valve Deceleration time: Area PHT: 2.39 cm^2 Mean velocity: 296.94 msec P1/2t: 91.95 msec 0.87 m/s Area (continuity): Mean gradient: 2.46 cm^2 3.24 mmHg Peak gradient: 6.16 mmHg Mitral valve annulus calcification. Thickened mitral valve leaflets. Mild mitral regurgitation. No mitral stenosis. No masses or vegetations seen. Aortic Valve LVOT VTI: 22.32 cm Mildly thickend free edges of the aortic valve leaflets. No aortic regurgitation. No aortic stenosis. No masses or vegetations seen. Tricuspid Valve TR velocity: 3.18 m/s TR gradient: 40.83717 mmHg Estimated RAP: 3 mmHg RVSP: 43.46 mmHg Moderate tricuspid regurgitation. Mild pulmonary hypertension. No tricuspid stenosis. No masses or vegetations seen. Pulmonic Valve Acceleration time: 138.41 msec PASP: 43.46 mmHg Structurally normal pulmonic valve. Trace pulmonic regurgitation. No pulmonic stenosis. No masses or vegetations seen. Great Vessels Aorta Aortic Root: 2.8 cm Ascending Aorta: 2.66 cm LVOT Diameter: 2.05 cm Visualized aorta is normal. Normal aortic root. No evidence of dissection. Normal IVC with appropriate collapse. Pericardium / Pleura No pericardial effusion. Other No masses or thrombi. No intracardiac shunt. us Robby Machuca PA-C CV ECHO ORDERABLES Final Result * (ABNORMAL) Basic Metabolic Panel (06/11/2022 6:51 AM EDT) Sodium 139 136 - 146 meq/L 06/11/2022 7:44 AM [facility] Potassium 4.1 3.5 - 5.1 meq/L 06/11/2022 7:44 AM [facility] Chloride 109 102 - 112 meq/L 06/11/2022 7:44 AM [facility] CO2 23 21 - 32 meq/L 06/11/2022 7:44 AM [facility] Anion Gap 11 9 - 20 06/11/2022 7:44 AM [facility] BUN 20 7 - 22 mg/dL 06/11/2022 7:44 AM [facility] Creatinine 0.93 0.55 - 1.02 mg/dL 06/11/2022 7:44 AM [facility] BUN/Creatinine 22(H) 8 - 20 06/11/2022 7:44 AM [facility] Glucose 95 74 - 106 mg/dL 06/11/2022 7:44 AM [facility] Calcium 8.9 8.4 - 10.1 mg/dL 06/11/2022 7:44 AM [facility] Osmolality Calc 280.0 7:44 AM [facility] eGFR (mL/min/1.73m2) >60 >=60 mL/min/1.7 3m2 06/11/2022 7:44 AM [facility] Comment:eGFR of <60 suggests chronic kidney disease if found over a 3 month period of time. eGFR <15 indicates renal failure. Blood Venipuncture / Unknown 06/11/2022 6:51 AM EDT 06/11/2022 7:17 AM EDT [facility] - 06/11/2022 7:44 AM EDT As of 05-04-2022 date, reported eGFR is based on the CKD-EPI 2020 equation that does not use a race coefficient. Laboratory Report for eGFR of 45-59 mL/min/1.73m2- For eGFR of 45-59 mL/min/1.73m2, NKF KDOQI and KDIGO guidelines recommend one - time confirmation of eGFR calculated using both creatinine and cystatin C. Cystatin C is recommended in the outpatient patient setting for purposes of confirming chronic kidney disease, rather than in the acute setting for acute kidney injury or failure. Annette Spencer NEUROPHYSIOLOGY TECH LAB BLOOD ORDERABLES Fi nal Result [facility] [address] [phone] * (ABNORMAL) CBC - Hemogram (SJ-BKR) (06/11/2022 6:51 AM EDT) WBC 5.7 4.5 - 10.5 K/??L 06/11/2022 7:30 AM EDT [facility] RBC 3.48(L) 3.93 - 5.22 M/??L 06/11/2022 7:30 AM EDT [facility] Hemoglobin 11.4 11.2 - 15.7 GM/DL 06/11/2022 7:30 AM EDT [facility] Hematocrit 34.5 34.1 - 44.9 % 06/11/2022 7:30 AM EDT [facility] MCV 99(H) 79 - 95 fL 06/11/2022 7:30 AM EDT [facility] MCH 32.8(H) 25.6 - 32.2 pg 06/11/2022 7:30 AM EDT [facility] MCHC 33.0 32.2 - 36.5 GM/DL 06/11/2022 7:30 AM EDT [facility] RDW 14.7 11.7 - 14.9 % 06/11/2022 7:30 AM EDT [facility] Platelets 203 163 - 369 K/CU MM 06/11/2022 7:30 AM EDT [facility] MPV 10.9 9.4 - 12.4 fL 06/11/2022 7:30 AM EDT [facility] Blood Venipuncture / Unknown 06/11/2022 6:51 AM EDT 06/11/2022 7:12 AM EDT Annette Tj WANGN LAB BLOOD ORDERABLES Fi nal Result [facility] [address] [place] [address], [facility] [phone] * (ABNORMAL) High Sensitivity Troponin I (06/10/2022 7:42 AM EDT) Troponin I High Sensitivity (pg/mL) 74.3(H) 3 - 58.8 pg/mL 06/10/2022 8:12 AM EDT [facility] Comment: Troponin Result (pg/mL) ? *Interpretation 3-58.8 ? *Normal; less than 99th percentile of normal range >58.8 ?*Abnormal; greater than 99th percentile of normal range The Troponin I test methodology changed. Reporting units are now pg/mL instead of the previously used ng/mL: ??Normal reference ranges, critical cutoffs, specimen type, and comments have changed. ??*See the test change alert bulletin* To determine if a patient is experiencing an AMI with Troponin I, High Sensitivity it is important to use the assay in conjunction with patient presentation, clinical suspicion, and a serial-collection protocol. Biotin specimen concentration >300 ng/mL may lead to falsely depressed results for patient samples. ??Do not use this test for renal dysfunction patients (eGFR <60) unless it is confirmed that the patient is not taking Biotin. Blood Venipuncture / Unknown 06/10/2022 7:42 AM EDT 06/10/2022 7:51 AM EDT us Rex Pelaez MD LAB BLOOD ORDERABLES Final Res ult [facility] [address] [place] [id number], [facility] [phone] * (ABNORMAL) Urinalysis w/Microscopic (06/10/2022 4:35 AM EDT) Color, UA Light Yellow 06/10/2022 5:12 AM EDT [facility] Clarity, UA Turbid(A) Clear 06/10/2022 5:12 AM EDT [facility] Specific [place], UA 1.012 1.005 - 1.030 06/10/2022 5:12 AM EDT [facility] pH, UA 6.5 6.0 - 8.0 06/10/2022 5:12 AM EDT [facility] Leukocytes, UA 25 Blake/uL(A) Negative 06/11/19 5:12 AM EDT [facility] Nitrite, UA 2+(A) Negative 06/10/2022 5:12 AM EDT [facility] Protein, UA Negative Negative 06/10/2022 5:12 AM EDT [facility] Glucose, UA Normal Normal 06/10/2022 5:12 AM EDT [facility] Ketones, UA Negative Negative 06/10/2022 5:12 AM EDT [facility] Urobilinogen, UA Normal Normal 06/10/2022 5:12 AM EDT [facility] Bilirubin, UA Negative Negative 06/10/2022 5:12 AM EDT [facility] Blood, UA Negative Negative 06/10/2022 5:12 AM EDT [facility] RBC, UA 0-2(A) None Seen /HPF 06/10/2022 5:12 AM EDT [facility] WBC, UA 6-10(A) None Seen /HPF 06/10/2022 5:12 AM EDT [facility] Bacteria, UA 2+(A) None Seen, Trace 06/10/2022 5:12 AM EDT [facility] Mucus 1+(A) None Seen 06/10/2022 5:12 AM EDT [facility] SQUAMOUS EPITHELIAL 0-2(A) None Seen /HPF 06/10/2022 5:12 AM EDT [facility] Specimen Source Urine, Clean Catch 06/10/2022 5:12 AM EDT [facility] Urine URINE SPECIMEN COLLECTION, CLEAN CATCH / Unknown 06/10/2022 4:35 AM EDT 06/10/2022 4:41 AM EDT Rex Pelaez MD URINE ORDERABLES Final Result Performing Organization Address City/[facility]/ZIP Co de Phone Number [facility] [address] [phone] * Prothrombin time/INR (06/10/2022 4:22 AM EDT) Protime 10.7 9.2 - 12.0 seconds 06/10/2022 4:39 AM EDT [facility] INR 0.98 0.90 - 1.20 06/10/2022 4:39 AM EDT [facility] Comment: Recommended therapeutic ranges using International Normalized Ratio (INR) are: INR RANGE 2.0 - 3.0 ? Routine oral anticoagulant therapy 2.5 - 3.5 ? Oral anticoagulant therapy for patients with thromboembolic events on standard doses of Coumadin and those with mechanical heart valves. Blood Venipuncture / Unknown 06/10/2022 4:22 AM EDT 06/10/2022 4:25 AM EDT Rex Pelaez MD LAB BLOOD ORDERABLES Final Res ult [facility] [address] [phone] * (ABNORMAL) High Sensitivity Troponin I (06/10/2022 4:22 AM EDT) Troponin I High Sensitivity (pg/mL) 63.6(H) 3 - 58.8 pg/mL 06/10/2022 4:51 AM EDT [facility] Comment: Troponin Result (pg/mL) ? *Interpretation 3-58.8 ? *Normal; less than 99th percentile of normal range >58.8 ?*Abnormal; greater than 99th percentile of normal range The Troponin I test methodology changed. Reporting units are now pg/mL instead of the previously used ng/mL: ??Normal reference ranges, critical cutoffs, specimen type, and comments have changed. ??*See the test change alert bulletin* To determine if a patient is experiencing an AMI with Troponin I, High Sensitivity it is important to use the assay in conjunction with patient presentation, clinical suspicion, and a serial-collection protocol. Biotin specimen concentration >300 ng/mL may lead to falsely depressed results for patient samples. ??Do not use this test for renal dysfunction patients (eGFR <60) unless it is confirmed that the patient is not taking Biotin. Blood Venipuncture / Unknown 06/10/2022 4:22 AM EDT 06/10/2022 4:25 AM EDT us Rex Pelaez MD LAB BLOOD ORDERABLES Final Res ult [facility] [address] [place] [address], [facility] [phone] * SARS-CoV2/Influenza/RSV RT-PCR (06/10/2022 4:14 AM EDT) SARS-COV2/RT-P CR Negative Negative DEVICE ID9 06/10/2022 5:11 AM EDT [facility] Influenza A RT-PCR Negative Negative DEVICE ID9 06/10/2022 5:11 AM EDT [facility] Influenza B RT-PCR Negative Negative DEVICE ID9 06/10/2022 5:11 AM EDT [facility] RSV by RT-PCR Negative Negative DEVICE ID9 06/10/2022 5:11 AM EDT [facility] Nasopharyngeal NASOPHARYNGEAL WALL STRUCTURE / Unknown 06/10/2022 4:14 AM EDT 06/10/2022 4:26 AM EDT [facility] - 06/10/2022 5:11 AM EDT The presence of SARS-CoV-2/FLU/RSV viral nucleic acids cannot rule out co- infections or disease caused by other viral or bacterial pathogens. ??As with any molecular test, mutations within the target regions of the Xpert Xpress SARS-CoV-2/Flu/RSV test could affect primer and/or probe binding resulting in failure to detect the presence of virus or the virus being detected less predictably. ??False negative results may occur if the virus is present at levels below the analytical limit of detection in this specimen. This Xpert Xpress SARS-CoV-2/Flu/RSV test is a rapid, real-time RT-PCR test intended for the qualitative detection of nucleic acid from Xpert Xpress SARS-CoV-2/Flu/RSV in a nasopharyngeal swab specimen collected from individuals suspected of Xpert Xpress SARS-CoV-2/Flu/RSV by their healthcare provider. ??Results from shabana Xpert Xpress SARS-CoV-2/Flu/RSV test should be correlated with the clinical history, epidemiological data, and other data available to the clinician evaluating the patient. ??Viral nucleic acid may persist in vivo, independent of virus viability. ??Detection of analyte target(s) does not imply that the corresponding virus(es) are infectious or are the causative agents for clinical symptoms. This test has not been Food and Drug Administration (FDA) cleared or approved and has been authorized by FDA under an Emergency Use Authorization (EUA). ??This EUA will be effective until the declaration that circumstances exist justifying the authorization of the emergency use of in vitro diagnostic tests for detection and/or diagnosis of COVID-19 is terminated under Section 564(b)(2) of the Act or the EUA is revoked under Section 564(g) of the Act. Fact Sheet for Healthcare Providers: https://www.[employer]/Documents/Xpert%20Xpress%20SARS%20CoV-2/Fact%20Sheets/30 2-390 2%83PKFB-HHU-0%20HEALTHCARE%20PROVIDERS%20FACT%20SHEET.pdf Fact Sheet for Healthcare Patients: https://www.[employer]/Documents/Xpert%20Xpress%20SARS%20Cov-2/Fact%20Sheets/30 2-380 1%41SOVU-QHG-5%20PATIENT%20FACT%20SHEET.pdf us Rex Pelaez MD MICROBIOLOGY - GENERAL ORDERAB LES Final Result Performing Organization Address [facility] Co de Phone Number [facility] [address] [place] [address] * ECG 12 lead (06/10/2022 3:57 AM EDT) VENTRICULAR RATE EKG/MIN 67 BPM GE MUSE ATRIAL RATE (MCT) 67 BPM GE MUSE AR Interval 175 ms GE MUSE QRS-INTERVAL (MSEC) 92 ms GE MUSE QT Interval 392 ms GE MUSE QTC Interval 414 ms GE MUSE P [employer] 29 degrees GE MUSE R AXIS (MCT) -2 degrees GE MUSE T Wave [employer] 56 degrees GE MUSE [place] Diagnosis Normal sinus rhythm rSr V1 NORMAL VARIANT ARTIFACT Abnormal ECG When compared with ECG of 10-JUN-2022 00:35, Inferior infarct is now present Confirmed by Wilda STARK, ROSS ([id number]), research editor SUSAN GAONA ([id number]) on 06/10/2022 3:16:55 PM GE MUSE 06/10/2022 3:57 AM EDT 06/10/2022 3:16 PM EDT us Rex Pelaez MD ECG ORDERABLES Final Result Performing Organization Address [facility] Co de Phone Number GE MUSE * Blood Culture, Peripheral #2 (06/10/2022 3:51 AM EDT) Result No growth in 5 days 06/15/2022 6:00 AM EDT [facility] Blood Venipuncture / Unknown 06/10/2022 3:51 AM EDT 06/10/2022 3:51 AM EDT Rex Pelaez MD MICROBIOLOGY - GENERAL ORDERAB LES Final Result Performing Organization Address [facility]/ZIP Co de Phone Number [facility] [address] [phone] * Blood Culture, Peripheral #1 (06/10/2022 3:51 AM EDT) Result No growth in 5 days 06/15/2022 6:00 AM EDT [facility] Blood Venipuncture / Unknown 06/10/2022 3:51 AM EDT 06/10/2022 3:51 AM EDT Rex Pelaez MD MICROBIOLOGY - GENERAL ORDERAB LES Final Result Performing Organization Address City/[facility] Co de Phone Number [facility] [address] [phone] * XR chest 1 view portable / bedside (06/10/2022 3:37 AM EDT) Anatomical Region Laterality Modality X-Ray 06/10/2022 8:33 AM EDT Impressions 06/10/2022 8:59 AM EDT Minimal bibasilar atelectasis. Images reviewed, interpreted, and dictated by Dr. Carlos Alberto Hu. Transcribed by Phoebe Stevens PA-C. Narrative 06/10/2022 8:59 AM EDT PORTABLE CHEST ?06/10/2022 3:27 AM HISTORY: Generalized weakness. COMPARISON: May 2008. FINDINGS: The heart size is mildly enlarged. Previously seen left Oberlin-Fer catheter has been removed. There is minimal atelectasis at the lung bases. ??There is no pneumothorax . Procedure Note Carlos Alberto Hu MD - 06/10/2022 PORTABLE CHEST 06/10/2022 3:27 AM HISTORY: Generalized weakness. COMPARISON: May 2008. FINDINGS: The heart size is mildly enlarged. Previously seen left Oberlin-Fer catheter has been removed. There is minimal atelectasis at the lung bases. There is no pneumothorax . IMPRESSION: Minimal bibasilar atelectasis. Images reviewed, interpreted, and dictated by Dr. Carlos Alberto Hu. Transcribed by Phoebe Stevens PA-C. us Rex Pelaez MD IMG DIAGNOSTIC IMAGING ORDERAB LES Final Result * CT spine lumbar without IV contrast (06/10/2022 3:22 AM EDT) Anatomical Region Laterality Modality T-spine, L-spine, Pelvis Compute d Tomography (CT) 06/10/2022 7:55 AM EDT Impressions 06/10/2022 8:59 AM EDT 1. Posterior fusion hardware bridging L3-4 and L4-5 with grade 1 spondylolisthesis of L3 on 4. 2. 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 3. Unusual bulky calcifications or ossifications extending into the spinal canal at the L5-S1 level and posterior to the S1 vertebra. High-grade compromise of the right and left lateral recess and of the left L5-S1 neural foramen. Please correlate with any specific radicular symptoms. HEAD CT HISTORY: Mental status change. COMPARISON: ??None . TECHNIQUE: Multiple axial CT images were performed from the foramen magnum to the vertex without enhancement. Individualized dose reduction techniques using automated exposure control or adjustment of the mA and/or kV according to patient size were employed. FINDINGS: Mild diffuse cortical atrophy is present. There is proportional ventriculomegaly. Mild to moderate abnormal decreased attenuation is seen in the deep white matter bilaterally. There is no evidence of acute hemorrhage, mass effect, or edema. Visualized paranasal sinuses appear well-aerated. IMPRESSION: 1. No definite evidence of acute intracranial abnormality. Images reviewed, interpreted, and dictated by Carlos Alberto Hu MD Narrative 06/10/2022 8:59 AM EDT Name: CHEN MERRITT : 1940 CT LUMBAR SPINE HISTORY: Low back pain. TECHNIQUE: Thin section non-contrast axial CT with sagittal reconstructions. Individualized dose reduction techniques using automated exposure control or adjustment of the mA and/or kV according to patient size were employed. FINDINGS: On the sagittal images, streak artifact is seen arising from posterior fusion hardware bridging the L3-4 and L4-5 levels. There is a grade 1 spondylolisthesis of L3 on 4. T12-L1: Minimal endplate hypertrophy is present. L1-L2: Mild diffuse disc bulge is present. There is mild bilateral neural foraminal narrowing. L2-L3: Mild diffuse disc bulge is present. There is mild bilateral facet hypertrophy present. Mild bilateral neural foraminal narrowing is seen. L3-L4: Moderate diffuse disc bulge is present. Endplate hypertrophy is present. There is moderate bilateral neural foraminal narrowing. L4-L5: Mild diffuse disc bulge is present. Endplate hypertrophy is present. Posterior laminectomy defect is present. There is mild spinal canal compromise. L5-S1: Bulky calcifications or ossifications are identified inferior to the L5-S1 disc level. There is high-grade compromise of the right lateral recess, left lateral recess, and left neural foramen. These large bulky foci are best seen on the sagittal images 30 through 37 of series 601. Incidental note is made of a localized abdominal aortic aneurysm which appears partially saccular, arising from the posterior aspect of the abdominal aorta. Aneurysm measures up to 3.0 cm in diameter. Large right renal cyst measures approximately 5.7 x 4.5 cm. Procedure Note Carlos Alberto Hu MD - 06/10/2022 Name: CHEN MERRITT : 1940 [address] LUMBAR SPINE HISTORY: Low back pain. TECHNIQUE: Thin section non-contrast axial CT with sagittal reconstructions. Individualized dose reduction techniques using automated exposure control or adjustment of the mA and/or kV according to patient size were employed. FINDINGS: On the sagittal images, streak artifact is seen arising from posterior fusion hardware bridging the L3-4 and L4-5 levels. There is a grade 1 spondylolisthesis of L3 on 4. T12-L1: Minimal endplate hypertrophy is present. L1-L2: Mild diffuse disc bulge is present. There is mild bilateral neural foraminal narrowing. L2-L3: Mild diffuse disc bulge is present. There is mild bilateral facet hypertrophy present. Mild bilateral neural foraminal narrowing is seen. L3-L4: Moderate diffuse disc bulge is present. Endplate hypertrophy is present. There is moderate bilateral neural foraminal narrowing. L4-L5: Mild diffuse disc bulge is present. Endplate hypertrophy is present. Posterior laminectomy defect is present. There is mild spinal canal compromise. L5-S1: Bulky calcifications or ossifications are identified inferior to the L5-S1 disc level. There is high-grade compromise of the right lateral recess, left lateral recess, and left neural foramen. These large bulky foci are best seen on the sagittal images 30 through 37 of series 601. Incidental note is made of a localized abdominal aortic aneurysm which appears partially saccular, arising from the posterior aspect of the abdominal aorta. Aneurysm measures up to 3.0 cm in diameter. Large right renal cyst measures approximately 5.7 x 4.5 cm. IMPRESSION: 1. Posterior fusion hardware bridging L3-4 and L4-5 with grade 1 spondylolisthesis of L3 on 4. 2. 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 3. Unusual bulky calcifications or ossifications extending into the spinal canal at the L5-S1 level and posterior to the S1 vertebra. High-grade compromise of the right and left lateral recess and of the left L5-S1 neural foramen. Please correlate with any specific radicular symptoms. HEAD CT HISTORY: Mental status change. COMPARISON: None . TECHNIQUE: Multiple axial CT images were performed from the foramen magnum to the vertex without enhancement. Individualized dose reduction techniques using automated exposure control or adjustment of the mA and/or kV according to patient size were employed. FINDINGS: Mild diffuse cortical atrophy is present. There is proportional ventriculomegaly. Mild to moderate abnormal decreased attenuation is seen in the deep white matter bilaterally. There is no evidence of acute hemorrhage, mass effect, or edema. Visualized paranasal sinuses appear well-aerated. IMPRESSION: 1. No definite evidence of acute intracranial abnormality. Images reviewed, interpreted, and dictated by Carlos Alberto Hu MD Rex Pelaez MD [facility] CT ORDERABLES Final Result * CT brain without IV contrast (06/10/2022 3:21 AM EDT) Anatomical Region Laterality Modality Brain, Head Computed Tomogra phy (CT) 06/10/2022 7:55 AM EDT Impressions 06/10/2022 8:59 AM EDT 1. Posterior fusion hardware bridging L3-4 and L4-5 with grade 1 spondylolisthesis of L3 on 4. 2. 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 3. Unusual bulky calcifications or ossifications extending into the spinal canal at the L5-S1 level and posterior to the S1 vertebra. High-grade compromise of the right and left lateral recess and of the left L5-S1 neural foramen. Please correlate with any specific radicular symptoms. HEAD CT HISTORY: Mental status change. COMPARISON: ??None . TECHNIQUE: Multiple axial CT images were performed from the foramen magnum to the vertex without enhancement. Individualized dose reduction techniques using automated exposure control or adjustment of the mA and/or kV according to patient size were employed. FINDINGS: Mild diffuse cortical atrophy is present. There is proportional ventriculomegaly. Mild to moderate abnormal decreased attenuation is seen in the deep white matter bilaterally. There is no evidence of acute hemorrhage, mass effect, or edema. Visualized paranasal sinuses appear well-aerated. IMPRESSION: 1. No definite evidence of acute intracranial abnormality. Images reviewed, interpreted, and dictated by Carlos Alberto Hu MD Narrative 06/10/2022 8:59 AM EDT Name: CHEN MERRITT : 1940 [address] LUMBAR SPINE HISTORY: Low back pain. TECHNIQUE: Thin section non-contrast axial CT with sagittal reconstructions. Individualized dose reduction techniques using automated exposure control or adjustment of the mA and/or kV according to patient size were employed. FINDINGS: On the sagittal images, streak artifact is seen arising from posterior fusion hardware bridging the L3-4 and L4-5 levels. There is a grade 1 spondylolisthesis of L3 on 4. T12-L1: Minimal endplate hypertrophy is present. L1-L2: Mild diffuse disc bulge is present. There is mild bilateral neural foraminal narrowing. L2-L3: Mild diffuse disc bulge is present. There is mild bilateral facet hypertrophy present. Mild bilateral neural foraminal narrowing is seen. L3-L4: Moderate diffuse disc bulge is present. Endplate hypertrophy is present. There is moderate bilateral neural foraminal narrowing. L4-L5: Mild diffuse disc bulge is present. Endplate hypertrophy is present. Posterior laminectomy defect is present. There is mild spinal canal compromise. L5-S1: Bulky calcifications or ossifications are identified inferior to the L5-S1 disc level. There is high-grade compromise of the right lateral recess, left lateral recess, and left neural foramen. These large bulky foci are best seen on the sagittal images 30 through 37 of series 601. Incidental note is made of a localized abdominal aortic aneurysm which appears partially saccular, arising from the posterior aspect of the abdominal aorta. Aneurysm measures up to 3.0 cm in diameter. Large right renal cyst measures approximately 5.7 x 4.5 cm. Procedure Note Carlos Alberto Hu MD - 06/10/2022 Name: CHEN MERRITT : 1940 CT LUMBAR SPINE HISTORY: Low back pain. TECHNIQUE: Thin section non-contrast axial CT with sagittal reconstructions. Individualized dose reduction techniques using automated exposure control or adjustment of the mA and/or kV according to patient size were employed. FINDINGS: On the sagittal images, streak artifact is seen arising from posterior fusion hardware bridging the L3-4 and L4-5 levels. There is a grade 1 spondylolisthesis of L3 on 4. T12-L1: Minimal endplate hypertrophy is present. L1-L2: Mild diffuse disc bulge is present. There is mild bilateral neural foraminal narrowing. L2-L3: Mild diffuse disc bulge is present. There is mild bilateral facet hypertrophy present. Mild bilateral neural foraminal narrowing is seen. L3-L4: Moderate diffuse disc bulge is present. Endplate hypertrophy is present. There is moderate bilateral neural foraminal narrowing. L4-L5: Mild diffuse disc bulge is present. Endplate hypertrophy is present. Posterior laminectomy defect is present. There is mild spinal canal compromise. L5-S1: Bulky calcifications or ossifications are identified inferior to the L5-S1 disc level. There is high-grade compromise of the right lateral recess, left lateral recess, and left neural foramen. These large bulky foci are best seen on the sagittal images 30 through 37 of series 601. Incidental note is made of a localized abdominal aortic aneurysm which appears partially saccular, arising from the posterior aspect of the abdominal aorta. Aneurysm measures up to 3.0 cm in diameter. Large right renal cyst measures approximately 5.7 x 4.5 cm. IMPRESSION: 1. Posterior fusion hardware bridging L3-4 and L4-5 with grade 1 spondylolisthesis of L3 on 4. 2. 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 3. Unusual bulky calcifications or ossifications extending into the spinal canal at the L5-S1 level and posterior to the S1 vertebra. High-grade compromise of the right and left lateral recess and of the left L5-S1 neural foramen. Please correlate with any specific radicular symptoms. HEAD CT HISTORY: Mental status change. COMPARISON: None . TECHNIQUE: Multiple axial CT images were performed from the foramen magnum to the vertex without enhancement. Individualized dose reduction techniques using automated exposure control or adjustment of the mA and/or kV according to patient size were employed. FINDINGS: Mild diffuse cortical atrophy is present. There is proportional ventriculomegaly. Mild to moderate abnormal decreased attenuation is seen in the deep white matter bilaterally. There is no evidence of acute hemorrhage, mass effect, or edema. Visualized paranasal sinuses appear well-aerated. IMPRESSION: 1. No definite evidence of acute intracranial abnormality. Images reviewed, interpreted, and dictated by Carlos Alberto Hu MD Rex Pelaez MD IMG CT ORDERABLES Final Result * Procalcitonin (06/10/2022 12:36 AM EDT) Procalcitonin 0.33 0.00 - 2.00 ng/mL 06/10/2022 5:56 AM EDT [facility] Comment: Lower respiratory tract infection <0.1 ng/mL ? Antibiotics Strongly Discouraged 0.1 to 0.24 ng/mL ? Antibiotics Discouraged 0.25 to 0.5 ng/mL ? Antibiotics Encouraged >0.5 ng/mL ? Antibiotics Strongly Encouraged Sepsis <0.25 ng/mL ?Antibiotics Strongly Discouraged 0.25 to 0.49 ng/mL ?Antibiotics Discouraged 0.5 to 1 ng/mL ? Antibiotics Encouraged >1 ng/mL ? Antibiotics Strongly Encouraged Procalcitonin results should be interpreted carefully in settings that are known to falsely elevate results such as renal failure, trauma, localized infections and jamison. Blood Venipuncture / Unknown 06/10/2022 12:36 AM EDT 06/10/2022 12:42 AM EDT us Rex Pelaez MD LAB BLOOD ORDERABLES Final Res ult Performing Organization Address [facility] Phone Number [facility] [address] [place] [address] * Magnesium (06/10/2022 12:36 AM EDT) Magnesium 2.0 1.5 - 2.4 mg/dL 06/10/2022 5:43 AM EDT [facility] Blood Venipuncture / Unknown 06/10/2022 12:36 AM EDT 06/10/2022 12:42 AM EDT us Rex Pelaez MD LAB BLOOD ORDERABLES Final Res ult Performing Organization Address [facility] Phone Number [facility] [address] [place] [address] * (ABNORMAL) PROBNP (06/10/2022 12:36 AM EDT) ProBNP (pg/mL) 2,394(H) 0 - 450 pg/mL 06/10/2022 5:43 AM EDT [facility] Blood Venipuncture / Unknown 06/10/2022 12:36 AM EDT 06/10/2022 12:42 AM EDT us Rex Pelaez MD LAB BLOOD ORDERABLES Final Res ult Performing Organization Address [facility] Phone Number [facility] [address] [phone] * Lactic Acid with reflex (SJ) (06/10/2022 12:36 AM EDT) Lactic Acid Level (mmol/L) 0.7 0.4 - 2.0 mmol/L 06/10/2022 1:06 AM EDT [facility] Comment:If a Lactic Acid Lev el with Reflex if Indicated result is greater than 2.0, a Lactic Acid Level will be ordered to be collected 2 hours after the original collection time. Blood Venipuncture / Unknown 06/10/2022 12:36 AM EDT 06/10/2022 12:42 AM EDT us Rex Pelaez MD LAB BLOOD ORDERABLES Final Res ult [facility] [address] [phone] * (ABNORMAL) Comprehensive metabolic panel (06/10/2022 12:36 AM EDT) Pathologist [facility] Sodium 136 136 - 146 meq/L 06/10/2022 1:13 AM EDT [facility] Potassium 4.5 3.5 - 5.1 meq/L 06/10/2022 1:13 AM EDT [facility] Chloride 102 102 - 112 meq/L 06/10/2022 1:13 AM EDT [facility] CO2 23 21 - 32 meq/L 06/10/2022 1:13 AM EDT [facility] Calcium 9.6 8.4 - 10.1 mg/dL 06/10/2022 1:13 AM EDT [facility] Glucose 104 74 - 106 mg/dL 06/10/2022 1:13 AM EDT [facility] BUN 25(H) 7 - 22 mg/dL 06/10/2022 1:13 AM EDT [facility] Creatinine 1.09(H) 0.55 - 1.02 mg/dL 06/10/2022 1:13 AM EDT [facility] BUN/Creatinine 23(H) 8 - 20 06/10/2022 1:13 AM [facility] Albumin 2.9(L) 3.4 - 5.0 g/dL 06/10/2022 1:13 AM [facility] Alkaline Phosphatase 65 27 - 136 U/L 06/10/2022 1:13 AM [facility] ALT 24 13 - 56 U/L 06/10/2022 1:13 AM [facility] AST 30 5 - 37 U/L 06/10/2022 1:13 AM [facility] Total Bilirubin 0.4 0.2 - 1.2 mg/dL 06/10/2022 1:13 AM [facility] Protein, Total 6.6 6.4 - 8.2 gm/dL 06/10/2022 1:13 AM [facility] Anion Gap 16 9 - 20 06/10/2022 1:13 AM [facility] A/G Ratio 0.8(L) 1.1 - 2.5 06/10/2022 1:13 AM [facility] Globulin 3.7 1.5 - 4.5 g/dL 06/10/2022 1:13 AM [facility] Osmolality Calc 276.7 1:13 AM [facility] eGFR (mL/min/1.73m2) 51(L) >=60 mL/min/1.7 3m2 06/10/2022 1:13 AM [facility] Comment:ESTIMATED GFR IS NOT ACCURATE CREATININE CLEARANCE IN PREDICTING GLOMERULAR FILTRATION RATE. ESTIMATED GFR IS NOT APPLICABLE FOR DIALYSIS PATIENTS. Blood Venipuncture / Unknown 06/10/2022 12:36 AM EDT 06/10/2022 12:42 AM EDT [facility] - 06/10/2022 1:13 AM EDT Specimen slightly hemolyzed As of 05-04-2022 date, reported eGFR is based on the CKD-EPI 2020 equation that does not use a race coefficient. Laboratory Report for eGFR of 45-59 mL/min/1.73m2- For eGFR of 45-59 mL/min/1.73m2, NKF KDOQI and KDIGO guidelines recommend one - time confirmation of eGFR calculated using both creatinine and cystatin C. Cystatin C is recommended in the outpatient patient setting for purposes of confirming chronic kidney disease, rather than in the acute setting for acute kidney injury or failure. us Rex Pelaez MD LAB BLOOD ORDERABLES Final Res ult [facility] [address] [phone] * (ABNORMAL) CBC with Auto Diff (06/10/2022 12:36 AM EDT) WBC 7.4 4.5 - 10.5 K/??L 06/10/2022 12:48 AM EDT [facility] RBC 3.80(L) 3.93 - 5.22 M/??L 06/10/2022 12:48 AM EDT [facility] Hemoglobin 12.3 11.2 - 15.7 GM/DL 06/10/2022 12:48 AM EDT [facility] Hematocrit 37.1 34.1 - 44.9 % 06/10/2022 12:48 AM EDT [facility] MCV 98(H) 79 - 95 fL 06/10/2022 12:48 AM EDT [facility] MCH 32.4(H) 25.6 - 32.2 pg 06/10/2022 12:48 AM EDT [facility] MCHC 33.2 32.2 - 36.5 GM/DL 06/10/2022 12:48 AM EDT [facility] RDW 14.6 11.7 - 14.9 % 06/10/2022 12:48 AM EDT [facility] Platelets 197 163 - 369 K/CU MM 06/10/2022 12:48 AM EDT [facility] MPV 10.7 9.4 - 12.4 fL 06/10/2022 12:48 AM EDT [facility] % Neutros 71 34 - 71 % 06/10/2022 12:48 AM EDT [facility] % Lymphs 11(L) 19 - 53 % 06/10/2022 12:48 AM EDT [facility] % Monos 13(H) 3 - 9 % 06/10/2022 12:48 AM EDT [facility] % Eos 5(H) 0 - 1 % 06/10/2022 12:48 AM EDT [facility] % Baso 0 0 - 2 % 06/10/2022 12:48 AM EDT [facility] NRBC Absolute 0.00 0 - 0.12 K/ul 06/10/2022 12:48 AM EDT [facility] # Neutros 5.25 1.56 - 6.13 K/??L 06/10/2022 12:48 AM EDT [facility] # Lymphs 0.79(L) 1.00 - 3.50 K/??L 06/10/2022 12:48 AM EDT [facility] # Monos 0.95 0.16 - 1.00 K/??L 06/10/2022 12:48 AM EDT [facility] # Eos 0.34 0.00 - 0.80 K/??L 06/10/2022 12:48 AM EDT [facility] # Baso 0.03 0.00 - 0.20 K/??L 06/10/2022 12:48 AM EDT [facility] Immature Granulocytes-Re lative 0.40 0.00 - 0.60 % 06/10/2022 12:48 AM EDT [facility] # IG 0.03 0.00 - 0.05 K/uL 06/10/2022 12:48 AM EDT [facility] Blood Venipuncture / Unknown 06/10/2022 12:36 AM EDT 06/10/2022 12:42 AM EDT Narrative [facility] - 06/10/2022 12:48 AM EDT When CBC w/ Auto Diff is ordered the lab will add a Manual Differential as a quality check at no additional charge if: Lymphocytes greater than seventy five percent with normal or increased WBC Monocytes greater than Fifteen percent Basophil greater than four percent Bands >10% or several immature myeloids are seen on scan Blast? Flag noted Atypical Lymph flag noted us Rex Pelaez MD LAB BLOOD ORDERABLES Final Res ult [facility] [address] [place], [place] [address] [phone] * ECG 12 lead (06/10/2022 12:35 AM EDT) VENTRICULAR RATE EKG/MIN 77 BPM GE MUSE ATRIAL RATE (MCT) 77 BPM GE MUSE AR Interval 167 ms GE MUSE QRS-INTERVAL (MSEC) 100 ms GE MUSE QT Interval 371 ms GE MUSE QTC Interval 420 ms GE MUSE P [employer] 36 degrees GE MUSE R AXIS (MCT) 3 degrees GE MUSE T Wave [employer] 68 degrees GE MUSE [place] Diagnosis Normal sinus rhythm RSR' or QR pattern in V1 suggests right ventricular conduction delay or normal variant Abnormal ECG When compared with ECG of 08-DEC-2021 09:43, No significant change was found Reconfirmed by Wilda STARK, ROSS ([id number]), research editor SUSAN GAONA ([id number]) on 06/10/2022 3:18:38 PM GE MUSE 06/10/2022 12:3 5 AM EDT 06/10/2022 3:18 PM EDT us Rex Pelaez MD ECG ORDERABLES Edited Result - Final Performing Organization Address [facility]/State/ZIP Co de Phone Number GE CECIL * EKG-SCANNED (06/10/2022) Narrative 06/10/2022 Ordered by an unspecified provider. us Default Scanning Provider SCAN ORDERS Final Result * EKG-SCANNED (06/10/2022) Narrative 06/10/2022 Ordered by an unspecified provider. us Default Scanning Provider SCAN ORDERS Final Result * EKG-SCANNED (06/10/2022) Narrative 06/10/2022 Ordered by an unspecified provider. us Default Scanning Provider SCAN ORDERS Final Result documented in this encounter Visit Diagnoses Diagnosis Urinary tract infection without hematuria, site unspecified Altered mental status, unspecified altered mental status type Midline low back pain without sciatica, unspecified chronicity Acute respiratory failure with hypoxia (HCC) Stented coronary artery Postsurgical percutaneous transluminal coronary angioplasty status documented in this encounter Admitting Diagnoses Diagnosis Weakness Other malaise and fatigue documented in this encounter Administered Medications Inactive Administered Medications - up to 3 most recent administrations Medication Order MAR Action Action Date Dose Rate Site acetaminophen (TYLENOL) tablet 1,000 mg 1,000 mg Every 6 hours PRN, oral, fever, Starting on Sat06/13/22 at 1334, Recommended maximum dose of acetaminophen is 4000 mg from all sources in 24 hours For fever only, Phase II/On Unit Given 06/28/2022 7:31 AM EDT 1,000 mg Given 06/22/2022 5:08 PM EDT 1,000 mg acetaminophen (TYLENOL) tablet 500 mg 500 mg Every 6 hours PRN, oral, mild pain (1-3), moderate pain (4-6), fever, and severe pain (7-10), Starting on Sat06/10/22 at 0848, Recommended maximum dose of acetaminophen is 4000 mg from all sources in 24 hours Given 06/11/2022 2:30 AM EDT 500 mg acetaminophen (TYLENOL) tablet 500 mg 500 mg Every 6 hours PRN, oral, mild pain (1-3), Starting on Sat06/13/22 at 1401, Recommended maximum dose of acetaminophen is 4000 mg from all sources in 24 hours Given 06/27/2022 10:48 AM EDT 500 mg Given 06/18/2022 8:40 PM EDT 500 mg Given 06/16/2022 10:33 PM EDT 500 mg aluminum-magnesium hydroxide-simethicone (MAALOX PLUS) suspension 30 mL 30 mL Every 6 hours PRN, oral, heartburn, Starting on Sat06/17/22 at 1821, Do NOT exceed 6 doses per order. Given 06/17/2022 8:42 PM EDT 30 mLs aspirin chewable tablet 324 mg 324 mg Once, oral, On Sat06/13/22 at 0530, For 1 dose, Chew and swallow, if not already given. Given 06/13/2022 5:12 AM EDT 324 mg aspirin EC tablet 81 mg 81 mg Daily, oral, First dose on Sat06/14/22 at 0900, * DO NOT CRUSH THIS DOSAGE FORM * Given 06/28/2022 8:51 AM EDT 8 1 mg Given 06/27/2022 10:39 AM EDT 81 mg Given 06/26/2022 9:17 AM EDT 81 mg atorvastatin (LIPITOR) tablet 40 mg 40 mg Every Night, oral, First dose on 06/10/22 at 2100 Given 06/12/2022 9:30 PM EDT 40 mg Given 06/11/2022 9:07 PM EDT 40 mg Given 06/10/2022 8:54 PM EDT 40 mg atorvastatin (LIPITOR) tablet 40 mg 40 mg Every Night, oral, First dose on 06/24/22 at 2100 Given 06/27/2022 8:46 PM EDT 40 mg Given 06/26/2022 8:24 PM EDT 40 mg Given 06/25/2022 8:23 PM EDT 40 mg atorvastatin (LIPITOR) tablet 80 mg 80 mg Once, oral, On Sat06/13/22 at 1030, For 1 dose, Pre-op Given 06/24/2022 8:10 PM EDT 80 mg calcium carbonate (TUMS) chewable tablet 500 mg (elemental calcium 200 mg) 500 mg Daily as needed (1 tablet), oral, indigestion, Starting on Sat06/22/22 at 1710, Each tablet contains 500 mg of calcium carbonate which equals 200 mg of elemental calcium. calcium gluconate 1 g in sodium chloride 0.9% (NS) 100 mL IVPB at 100 mL/hr, Administer over 60 Minutes, intravenous, Daily as needed, Ionized CA 1.06 to 1.11 mmoL/liter, Starting on Sat06/27/22 at 0744, Administer over 1 hour. If calcium is replaced per protocol, recheck ionized calcium next morning. calcium gluconate 2 g in sodium chloride 0.9% (NS) 100 mL IVPB at 100 mL/hr, Administer over 60 Minutes, intravenous, Daily as needed, Ionized CA 1 to 1.05 mmoL/liter, Starting on Sat06/27/22 at 0744, Administer over 1 hour. If calcium is replaced per protocol, recheck ionized calcium next morning. calcium gluconate 2 g in sodium chloride 0.9% (NS) 100 mL IVPB at 100 mL/hr, Administer over 60 Minutes, intravenous, 2 times daily PRN, Ionized CA less than 1 mmol/L, Starting on Sat06/27/22 at 0744, Administer over 1 hour. If calcium is replaced per protocol, recheck ionized calcium next morning. cefTRIAXone (ROCEPHIN) 1 g in sodium chloride 0.9 % (NS) MBP 50 mL IVPB 1 g Every 24 hours, intravenous, Administer over 30 Minutes, First dose on Sat06/10/22 at 0710, For 6 days, DO NOT ADMNISTER, VIA Y-SITE, WITH ANY CALCIUM CONTAINING IV FLUIDS SUCH LACTATED RINGERS SOLUTION. FLUSH LINE BEFORE AND AFTER ROCEPHIN ADMINISTRATION IF ANY CALCIUM CONTAINING PRODUCTS ARE BEING ADMINISTERED., Please choose an indication: Urinary Tract Infection IVPB Started 06/15/2022 7:43 AM EDT 1 g 100 mL/hr IVPB Started 06/14/2022 10:24 AM EDT 1 g 100 mL/hr IVPB Started 06/12/2022 6:33 AM EDT 1 g 100 mL/hr cetirizine (ZyrTEC) tablet 10mg--PATIENT OWN SUPPLY 10 mg Daily, oral, First dose on Sat06/11/22 at 1200, Patient own supply Given 06/26/2022 10:06 AM EDT 10 mg Given 06/25/2022 9:48 AM EDT 10 mg Given 06/24/2022 9:00 AM EDT 10 mg cholecalciferol (VITAMIN D3) tablet 1,000 Units 1,000 Units Daily, oral, First dose on Sat06/11/22 at 1100, Given 06/28/2022 1:33 PM EDT 1,000 Units Given 06/27/2022 10:48 AM EDT 1,000 Units Given 06/26/2022 10:07 AM EDT 1,000 Units clopidogreL (PLAVIX) tablet 300 mg 300 mg Once, oral, On Sat06/14/22 at 0900, For 1 dose, Given 06/14/2022 9:40 AM EDT 300 mg clopidogreL (PLAVIX) tablet 75 mg 75 mg Daily, oral, First dose on Sat06/15/22 at 0900, Given 06/28/2022 8:51 AM EDT 75 mg Given 06/27/2022 10:39 AM EDT 75 mg Given 06/26/2022 9:17 AM EDT 75 mg cosyntropin (CORTROSYN) injection 0.25 mg 0.25 mg Once, intravenous, On Mary 06/21/22 at 0900, For 1 dose, Given 06/21/2022 9:59 AM EDT 0.25 mg cosyntropin (CORTROSYN) injection 0.25 mg 0.25 mg Once, intravenous, On 06/23/22 at 0830, For 1 dose, Given 06/23/2022 8:30 AM EDT 0.25 mg dextrose (GLUTOSE) 40 % gel 15 g 15 g Every 15 min PRN, oral, low blood glucose (specify value in prn comments), mild symptomatic hypoglycemia,, Starting on Sat06/13/22 at 1000, Give for blood glucose 60-70 mg/dL if patient is alert and symptomatic. Repeat as ordered until blood glucose above 80 mg/dL. , Pre-op dilTIAZem (CARDIZEM CD) 24 hr capsule 180 mg 180 mg Daily, oral, First dose (after last modification) on Sat06/12/22 at 0900, Do Not Crush or Chew Antihypertensive - Check BP - Check Pulse Given 06/18/2022 8:50 AM EDT 180 mg Given 06/17/2022 8:19 AM EDT 180 mg Given 06/16/2022 9:03 AM EDT 180 mg dilTIAZem (CARDIZEM CD) 24 hr capsule 240 mg 240 mg Daily, oral, First dose on Sat06/10/22 at 0900, Do Not Crush or Chew Antihypertensive - Check BP - Check Pulse Given 06/11/2022 9:39 AM EDT 24 0 mg docusate sodium (COLACE) capsule 100 mg 100 mg 2 times daily, oral, First dose (after last modification) on Sat06/11/22 at 2100, * DO NOT CRUSH THIS DOSAGE FORM * Given 06/28/2022 8:51 AM EDT 100 mg Given 06/27/2022 8:46 PM EDT 100 mg Given 06/27/2022 10:40 AM EDT 100 mg docusate sodium (COLACE) capsule 300 mg 300 mg 2 times daily, oral, First dose on Sat06/10/22 at 0900, * DO NOT CRUSH THIS DOSAGE FORM * Given 06/11/2022 9:40 AM EDT 300 mg Given 06/10/2022 8:46 PM EDT 300 mg Given 06/10/2022 12:01 PM EDT 300 mg doxycycline (VIBRAMYCIN) 100 mg in sodium chloride 0.9 % (NS) MBP 100 mL IVPB 100 mg Every 12 hours scheduled, intravenous, at 100 mL/hr, First dose on Sat06/10/22 at 0900, Please choose an indication: Pneumonia Given During Downtime - see paper 06/14/2022 9:15 PM EDT 100 mg 100 mL/hr Given During Downtime - see paper 06/14/2022 11:11 AM EDT 100 mg 100 mL/hr Given During Downtime - see paper 06/13/2022 10:53 PM EDT 100 mg 100 mL/hr doxycycline (VIBRAMYCIN) capsule 100 mg 100 mg Every 12 hours scheduled, oral, First dose on Sat06/15/22 at 1430, For 2 days Given 06/16/2022 10:28 PM EDT 100 mg Given 06/16/2022 9:04 AM EDT 100 mg Given 06/15/2022 10:53 PM EDT 100 mg enoxaparin (LOVENOX) syringe 40 mg 40 mg Every 24 hours scheduled, subcutaneous, First dose on Sat06/10/22 at 0855, Do not administer within 12 hours of epidural or lumbar puncture. Look-Alike/Sound-Alike Alert Given 06/11/2022 9:39 AM EDT 40 mg Abdom inal Tissue Given 06/10/2022 9:33 AM EDT 40 mg Ab dominal Tissue enoxaparin (LOVENOX) syringe 40 mg 40 mg Every 24 hours scheduled, subcutaneous, First dose on Sat06/16/22 at 1830, Do not administer within 12 hours of epidural or lumbar puncture. Look-Alike/Sound-Alike Alert Given 06/28/2022 8:52 AM EDT 40 mg Abdom inal Tissue Given 06/27/2022 10:41 AM EDT 40 mg A bdominal Tissue Given 06/26/2022 9:16 AM EDT 40 mg Ab dominal Tissue famotidine (PEPCID) tablet 20 mg 20 mg 2 times daily, oral, First dose on Sat06/22/22 at 1730, Pharmacist to renally dose if CrCl is less than 50 mL/min or on CRRT. Given 06/28/2022 8:51 AM EDT 20 m g Given 06/27/2022 8:45 PM EDT 20 mg Given 06/27/2022 10:39 AM EDT 20 mg fentaNYL (SUBLIMAZE) injection 25 mcg 25 mcg Once, intravenous, On Sat06/12/22 at 1030, For 1 dose, Pre-op Given 06/12/2022 9:53 AM EDT 25 mcg fentaNYL (SUBLIMAZE) injection 25 mcg 25 mcg Every 5 min PRN, intravenous, moderate to severe pain (4-10), Starting on Sat06/12/22 at 1258, Maximum cumulative dose 100 mcg, PACU Given 06/12/2022 1:13 PM EDT 25 mcg Given 06/12/2022 1:06 PM EDT 25 mcg Given 06/12/2022 1:00 PM EDT 25 mcg fentaNYL (SUBLIMAZE) injection IMG once as needed, intravenous, Starting on Sat06/13/22 at 1048, For 1 dose, Intra-op Given 06/13/2022 10:48 AM EDT 50 mcg fentaNYL (SUBLIMAZE) injection IMG once as needed, intravenous, Starting on Sat06/13/22 at 1101, For 1 dose, Intra-op Given 06/13/2022 11:01 AM EDT 25 mcg fentaNYL (SUBLIMAZE) injection IMG once as needed, intravenous, Starting on Sat06/13/22 at 1125, For 1 dose, Intra-op Given 06/13/2022 11:25 AM EDT 25 mcg fentaNYL (SUBLIMAZE) injection IMG once as needed, intravenous, Starting on Sat06/13/22 at 1145, For 1 dose, Intra-op Given 06/13/2022 11:45 AM EDT 25 mcg fluconazole (DIFLUCAN) tablet 200 mg 200 mg Every 72 hours PRN, oral, vag yeast/itching, Starting on Sat06/11/22 at 1026, Caution: Recommend wearing gloves during administration. Although these tablets are chewable by the patient, it is not recommended for emplyees to break or crush. If there is no reasonable alternative, employee should use the closed system pill client engagement manager. Employees who are , trying to become , or should not handle this medication. Dispose of trace medication (including packaging) in the BLACK waste bin. fludrocortisone (FLORINEF) tablet 100 mcg 100 mcg 2 times daily, oral, First dose on Sat06/18/22 at 0900 Given 06/20/2022 9:42 AM EDT 100 mcg Given 06/19/2022 10:06 AM EDT 100 mcg Given 06/18/2022 8:40 PM EDT 100 mcg fluticasone propionate (FLONASE) nasal spray 2 spray 2 spray 2 times daily, each nostril, First dose on Sat06/11/22 at 1100 Given 06/28/2022 8:55 AM EDT 2 sprays Given 06/27/2022 8:46 PM EDT 2 sprays Given 06/27/2022 10:42 AM EDT 2 sprays folic acid (FOLVITE) tablet 1,000 mcg 1,000 mcg Daily, oral, First dose on Sat06/10/22 at 0900 Given 06/27/2022 10:48 AM EDT 1,000 mcg Given 06/26/2022 10:07 AM EDT 1,000 mcg Given 06/25/2022 9:47 AM EDT 1,000 mcg furosemide (LASIX) injection 20 mg 20 mg Once, intravenous, On Mary 06/14/22 at 1130, For 1 dose Given 06/14/2022 11:17 AM EDT 20 mg heparin 1,000 Units/mL injection IMG once as needed, intravenous, Starting on Sat06/13/22 at 1130, For 1 dose, Intra-op Given 06/13/2022 11:30 AM EDT 4,000 Units heparin 1,000 Units/mL injection IMG once as needed, intravenous, Starting on Sat06/13/22 at 1204, For 1 dose, Intra-op Given 06/13/2022 12:04 PM EDT 1,000 Units heparin bolus from bag 4,000 Units 4,000 Units Once, intravenous, On Sat06/13/22 at 0500, For 1 dose, Initial bolus Bolus from Bag 06/13/2022 6:11 AM EDT 4,000 Units heparin infusion 25,000 units in dextrose 5% (D5W) 250 mL (100 units/mL) 2-24 Units/kg/hr ? 68 kg Titrated (1.36-16.32 mL/hr, rounded to 1.4-16.3 mL/hr), intravenous, Starting on Sat06/13/22 at 0500 New Bag 06/13/2022 5:58 AM EDT 12.35 Units/kg/hr 8.4 mL/hr hydrALAZINE (APRESOLINE) injection 10 mg 10 mg Every 6 hours PRN, intravenous, hypertension (sbp greater than 160), Starting on Sat06/10/22 at 0848, Hold if SBP < 100 mmHg, DBP < 50 mmHg, or patient is on pressor. Given 06/16/2022 9:02 AM EDT 10 mg Given 06/15/2022 9:02 AM EDT 10 mg Given 06/11/2022 10:08 AM EDT 10 mg HYDROcodone-acetaminophen (NORCO) tablet 7.5-325 mg 0.5 tablet Every 4 hours, oral, First dose on Sat06/11/22 at 1100, For 3 days, Recommended maximum dose of acetaminophen is 4000 mg from all sources in 24 hours Given 06/14/2022 10:33 AM EDT 0.5 tablets Given 06/14/2022 6:12 AM EDT 0.5 tablets Given 06/14/2022 2:16 AM EDT 0.5 tablets HYDROmorphone (DILAUDID) injection 0.5 mg 0.5 mg Every 6 hours PRN, intravenous, severe pain (7-10), Starting on Sat06/11/22 at 1050 Given 06/13/2022 11:03 PM EDT 0.5 mg Given 06/13/2022 4:20 AM EDT 0.5 mg Given 06/12/2022 9:33 PM EDT 0.5 mg iopamidoL (ISOVUE-370) 370 mg iodine /mL (76 %) injection IMG once as needed, Starting on Sat06/13/22 at 1219, For 1 dose, Intra-op Given 06/13/2022 12:19 PM EDT 235 mLs lactated ringers (LR) bolus 1,000 mL 1,000 mL Once, intravenous, Administer over 2 Hours, On 06/16/22 at 1700, For 1 dose New Bag 06/16/2022 5:32 PM EDT 1,000 mLs lactated ringers (LR) infusion 1,000 mL Continuous, intravenous, at 100 mL/hr, Starting on Sat06/12/22 at 1000, New Bag 06/12/2022 9:24 PM EDT 1,000 mLs 100 mL/hr New Bag 06/12/2022 9:34 AM EDT 1,000 mLs 100 mL/hr lidocaine (XYLOCAINE) injection 2% IMG once as needed, other - see admin instructions, Starting on Sat06/13/22 at 1056, For 1 dose, Intra-op Given 06/13/2022 10:56 AM EDT 5 mLs Right Groin magnesium sulfate IVPB 2 g in sterile water 50 mL at 25 mL/hr, Administer over 120 Minutes, intravenous, Once, On Sat06/13/22 at 0630, For 1 dose IVPB Started 06/13/2022 6:42 AM EDT 2 g 25 mL/hr magnesium sulfate IVPB 2 g in sterile water 50 mL at 25 mL/hr, Administer over 120 Minutes, intravenous, Daily as needed, for magnesium level 1.3 to 1.7 mg/dL, Starting on Sat06/27/22 at 0744, If magnesium is replaced per protocol order, recheck magnesium the next morning magnesium sulfate IVPB 2 g in sterile water 50 mL at 25 mL/hr, Administer over 120 Minutes, intravenous, 2 times daily PRN, for Magnesium Level less than 1.3 mg/dL, Starting on Sat06/27/22 at 0744, Total dose of 4 g for each low Magnesium result. If magnesium is replaced per protocol order, recheck magnesium the next morning. methotrexate tablet 20 mg 20 mg Weekly, oral, First dose (after last reorder) on Mary 06/21/22 at 1930, *DISCARD WASTE IN BLACK CONTAINERS*, Indication: Rheumatoid arthritis Given 06/28/2022 1:34 PM EDT 20 mg Given 06/21/2022 9:34 PM EDT 20 mg metoprolol tartrate (LOPRESSOR) 50 MG tablet Starting on Sat06/13/22 at 1718, For 1 dose, Created by lisa ya metoprolol tartrate (LOPRESSOR) tablet 25 mg 25 mg 2 times daily, oral, First dose on Sat06/10/22 at 0900, Hold for systolic BP < 90 mmHg or for HR < 50 BPM Given 06/11/2022 9:40 AM EDT 25 mg Given 06/10/2022 8:46 PM EDT 25 mg Given 06/10/2022 12:02 PM EDT 25 mg metoprolol tartrate (LOPRESSOR) tablet 25 mg 25 mg 3 times daily, oral, First dose (after last modification) on Sat06/11/22 at 1500, Hold for systolic BP < 90 mmHg or for HR < 50 BPM Given 06/16/2022 9:04 AM EDT 25 mg Given 06/15/2022 10:52 PM EDT 25 mg Given 06/15/2022 2:34 PM EDT 25 mg metoprolol tartrate (LOPRESSOR) tablet 25 mg 25 mg 2 times daily, oral, First dose on Sat06/16/22 at 2330, Hold for systolic BP < 90 mmHg or for HR < 50 BPM Given 06/28/2022 8:51 AM EDT 25 mg Given 06/27/2022 8:46 PM EDT 25 mg Given 06/27/2022 10:40 AM EDT 25 mg miconazole (MICOTIN) 2 % powder Topical, 2 times daily, First dose on Sat06/22/22 at 2100 Given 06/26/2022 8:25 PM EDT Given 06/26/2022 9:29 AM EDT Given 06/25/2022 8:25 PM EDT miconazole (MICOTIN) topical cream 2% topical, 2 times daily, First dose on Sat06/22/22 at 2100 Given 06/26/2022 8:25 PM EDT Given 06/26/2022 9:29 AM EDT Given 06/25/2022 8:25 PM EDT midazolam (PF) (VERSED) injection IMG once as needed, intravenous, Starting on Sat06/13/22 at 1048, For 1 dose, Intra-op Given 06/13/2022 10:48 AM EDT 1 mg midazolam (PF) (VERSED) injection IMG once as needed, intravenous, Starting on Sat06/13/22 at 1101, For 1 dose, Intra-op Given 06/13/2022 11:01 AM EDT 0 .5 mg midazolam (PF) (VERSED) injection IMG once as needed, intravenous, Starting on Sat06/13/22 at 1125, For 1 dose, Intra-op Given 06/13/2022 11:25 AM EDT 0 .5 mg midazolam (PF) (VERSED) injection IMG once as needed, intravenous, Starting on Sat06/13/22 at 1145, For 1 dose, Intra-op Given 06/13/2022 11:45 AM EDT 1 mg midodrine (PROAMATINE) tablet 2.5 mg 2.5 mg 2 times daily before meals, oral, First dose on Sat06/23/22 at 1700, Administer during day hours only and at least 4 hours before bedtime. Given 06/28/2022 6:32 AM EDT 2.5 mg Given 06/27/2022 6:49 AM EDT 2.5 mg Given 06/26/2022 5:27 PM EDT 2.5 mg multivitamin (THERAGRAN) tablet 1 tablet 1 tablet Daily, oral, First dose on Sat06/11/22 at 1100 Given 06/28/2022 8:52 AM EDT 1 tablet Given 06/27/2022 10:41 AM EDT 1 tablet Given 06/26/2022 9:17 AM EDT 1 tablet naloxone (NARCAN) injection 0.2 mg 0.2 mg Every 2 min PRN, intravenous, opioid reversal, respiratory depression, Starting on Sat06/13/22 at 1334, Give for respiratory rate less than 10 breaths/min or if patient is difficult to arouse. Max dose = 10 mg. Call provider., Phase II/On Unit nitroglycerin (TRIDIL) 25 mg/250 mL (100 mcg/mL) infusion Starting on Sat06/13/22 at 1359, For 1 dose, Created by cabdayt yamilethide nitroglycerin infusion 0.1 mg/mL in D5W 250 mL 5 mcg/min Continuous (3 mL/hr), intravenous, Starting on Sat06/13/22 at 1430, Until SBP less than 150 mmHg Given 06/13/2022 2:10 PM EDT 25,000 mc g ondansetron (ZOFRAN-ODT) disintegrating tablet 4 mg 4 mg Every 8 hours PRN, oral, nausea, vomiting, Starting on Sat06/13/22 at 1334, 1st line. If inadequate response within 60 minutes, proceed to next-line agent for same PRN reason or contact provider if no further options ordered., Phase II/On Unit ondansetron PF (ZOFRAN) injection 4 mg 4 mg Every 8 hours PRN, intravenous, nausea, vomiting, Starting on Sat06/10/22 at 0848, Give IV if patient is unable to take orally. 1st line If inadequate response within 60 minutes, proceed to next-line agent for same PRN reason or contact provider if no further options ordered. For IV push, give over 2 - 5 minutes. Given 06/11/2022 9:52 AM EDT 4 mg Given 06/11/2022 2:32 AM EDT 4 mg ondansetron PF (ZOFRAN) injection 4 mg 4 mg Every 8 hours PRN, intravenous, nausea, vomiting, Starting on Sat06/13/22 at 1334, Give IV if patient is unable to take orally. 1st line If inadequate response within 60 minutes, proceed to next-line agent for same PRN reason or contact provider if no further options ordered. For IV push, give over 2 - 5 minutes., Phase II/On Unit oxyCODONE (ROXICODONE) immediate release tablet 5 mg 5 mg Every 4 hours PRN, oral, moderate pain (4-6), severe pain (7-10), Starting on Sat06/13/22 at 1334, 2nd line analgesic. Give only if inadequate response (less than 50% reduction in pain score) 60 minutes after administration of 1st line analgesics + adjuvants (if ordered). , Phase II/On Unit Given 06/27/2022 9:44 PM EDT 5 mg Given 06/26/2022 8:23 PM EDT 5 mg Given 06/25/2022 8:33 PM EDT 5 mg pantoprazole (PROTONIX) DR tablet 40 mg 40 mg Daily, oral, First dose on Sat06/10/22 at 0900, * DO NOT CRUSH THIS DOSAGE FORM * Given 06/28/2022 8:53 AM EDT 4 0 mg Given 06/27/2022 10:41 AM EDT 40 mg Given 06/26/2022 9:17 AM EDT 40 mg polyethylene glycol (GLYCOLAX) packet 17 g 17 g Daily, oral, First dose on Sat06/10/22 at 0900, Bowel Regimen - for prevention of constipation. Given 06/28/2022 8:51 AM EDT 17 g Given 06/27/2022 10:41 AM EDT 17 g Given 06/26/2022 9:16 AM EDT 17 g potassium chloride SA (K-DUR,KLOR-CON-M) CR tablet 40 mEq 40 mEq Once, oral, On 06/16/22 at 1830, For 1 dose, DO NOT CRUSH THIS DOSAGE FORM * DO NOT CRUSH or CHEW* Given 06/16/2022 6:37 PM EDT 40 mEq potassium chloride SA (K-DUR,KLOR-CON-M) CR tablet 40 mEq 40 mEq 4 times daily PRN, oral, for potassium less than or equal to 3.4 mmol/L, Starting on Sat06/27/22 at 0744, If potassium is replaced per protocol order, recheck potassium 1 hour after replacement and the next morning. Do not crush KCl tablets. * DO NOT CRUSH or CHEW* pregabalin (LYRICA) capsule 150 mg 150 mg Every Night, oral, First dose (after last modification) on Sat06/11/22 at 2100 Given 06/27/2022 8:45 PM EDT 15 0 mg Given 06/26/2022 8:24 PM EDT 150 mg Given 06/25/2022 8:28 PM EDT 150 mg pregabalin (LYRICA) capsule 50 mg 50 mg Every Night, oral, First dose on Sat06/10/22 at 2100 Given 06/10/2022 8:47 PM EDT 50 mg Saccharomyces boulardii (FLORASTOR) capsule 250 mg 250 mg 2 times daily, oral, First dose on Sat06/11/22 at 1100, Do not crush or open capsule. Must be swallowed whole. Given 06/28/2022 8:52 AM EDT 250 mg Given 06/27/2022 8:46 PM EDT 250 mg Given 06/27/2022 10:39 AM EDT 250 mg sodium chloride 0.9% (NS) bolus 500 mL Once, intravenous, On Sat06/20/22 at 1130, For 1 dose New Bag 06/20/2022 12:28 PM EDT 500 mLs sodium chloride 0.9% (NS) infusion 1,000 mL Continuous, intravenous, at 75 mL/hr, Starting on 06/10/22 at 0855 New Bag 06/13/2022 6:41 AM EDT 1,000 mLs 75 mL/hr New Bag 06/12/2022 3:09 PM EDT 1,000 mLs 75 mL/hr New Bag 06/11/2022 9:21 PM EDT 1,000 mLs 75 mL/hr sodium chloride 0.9% (NS) infusion Continuous PRN, intravenous, Starting on Sat06/13/22 at 1047, Intra-op New Bag 06/13/2022 12:13 PM EDT 250 mLs New Bag 06/13/2022 10:47 AM EDT 30 mL/hr 30 mL/hr sodium phosphate 15 mmol in sodium chloride 0.9% (NS) 250 mL infusion (CENTRAL LINE) 15 mmol Daily as needed, intravenous, Administer over 5 Hours, Phos 1.5 to 2.3, Starting on Sat06/27/22 at 0749, If phosphorus is replaced per protocol, recheck phosphorus next morning. * HIGH ALERT MEDICATION * Administer via Central Line only. Rate should NOT exceed 7.5 mMol/hr. sodium phosphate 15 mmol in sodium chloride 0.9% (NS) 250 mL infusion (CENTRAL LINE) 15 mmol Every 2 hour PRN, intravenous, Administer over 5 Hours, Phos less than 1.5, Starting on Sat06/27/22 at 0749, For 2 doses, Infuse 2 doses for total of 30 mmol for the day. If phosphorus is replaced per protocol, recheck phosphorus next morning. * HIGH ALERT MEDICATION * Administer via Central Line only. Rate should NOT exceed 7.5 mMol/hr. ticagrelor (BRILINTA) tablet 180 mg 180 mg Once, oral, On Sat06/13/22 at 0530, For 1 dose Given 06/13/2022 5:28 AM EDT 180 mg ticagrelor (BRILINTA) tablet 90 mg 90 mg 2 times daily, oral, First dose on Sat06/13/22 at 2100 Given 06/13/2022 9:57 PM EDT 90 mg traMADoL (ULTRAM) tablet 50 mg 50 mg 3 times daily PRN, oral, severe pain (7-10), moderate pain (4-6), Starting on Sat06/10/22 at 0848 Given 06/11/2022 3:44 AM EDT 50 mg Given 06/10/2022 8:49 PM EDT 50 mg documented in this encounter Active and Recently Administered Medications Times are shown in EDT. Scheduled Medication Order 06/26/2022 06/27/2022 06/28/2022 aspirin EC tablet 81 mg 81 mg Daily, oral, First dose on Sat06/14/22 at 0900, * DO NOT CRUSH THIS DOSAGE FORM * 0917 (Given - Provider: Corry Rodriguez RN) 1039 (Given - Provider: Dyana Salgado RN) 0851 (Given - Provider: Dyana Salgado RN) atorvastatin (LIPITOR) tablet 40 mg 40 mg Every Night, oral, First dose on Sat06/24/22 at 2100 2023 (Given - Provider: Kezia Gabriel, SHIRLEY) 2045 (Given - Provider: Annette Fabian RN) cetirizine (ZyrTEC) tablet 10mg--PATIENT OWN SUPPLY 10 mg Daily, oral, First dose on Sat06/11/22 at 1200, Patient own supply 1006 (Given - Provider: Corry Rodriguez RN) 1043 (Not Given - Provider: Dyana Salgado RN - Reason: Other (with Comment) - Comment: pt took own med) 0853 (Not Given - Provider: Dyana Salgado RN - Reason: Other (with Comment) - Comment: pt took own med) cholecalciferol (VITAMIN D3) tablet 1,000 Units 1,000 Units Daily, oral, First dose on Sat06/11/22 at 1100, 1007 (Given - Provider: Corry Rodriguez RN) 1048 (Given - Provider: Dyana Salgado RN) 1333 (Given - Provider: Dyana Salgado RN) clopidogreL (PLAVIX) tablet 75 mg 75 mg Daily, oral, First dose on Sat06/15/22 at 0900, 0917 (Given - Provider: Corry Rodriguez RN) 1039 (Given - Provider: Dyana Salgado RN) 0851 (Given - Provider: Dyana Salgado RN) docusate sodium (COLACE) capsule 100 mg 100 mg 2 times daily, oral, First dose (after last modification) on Sat06/11/22 at 2100, * DO NOT CRUSH THIS DOSAGE FORM * 09 (Given - Provider: Corry Rodriguez RN)2023 (Given - Provider: Kezia Gabriel RN) 1040 (Given - Provider: Dyana Salgado RN)2045 (Given - Provider: Annette Fabian, SHIRLEY) 0851 (Given - Provider: Dyana Salgado, SHIRLEY) enoxaparin (LOVENOX) syringe 40 mg 40 mg Every 24 hours scheduled, subcutaneous, First dose on Sat06/16/22 at 1830, Do not administer within 12 hours of epidural or lumbar puncture. Look-Alike/Sound-Ali ke Alert 0916 (Given - Provider: Corry Rodriguez RN) 1041 (Given - Provider: Dyana Salgado, SHIRLEY) 0852 (Given - Provider: Dyana Salgado, SHIRLEY) famotidine (PEPCID) tablet 20 mg 20 mg 2 times daily, oral, First dose on Sat06/22/22 at 1730, Pharmacist to renally dose if CrCl is less than 50 mL/min or on CRRT. 0917 (Given - Provider: Corry Rodriguez RN)2023 (Given - Provider: Kezia Gabriel RN) 103 (Given - Provider: Dyana Salgado, SHIRLEY)204 (Given - Provider: Annette Fabian, SHIRLEY) 0851 (Given - Provider: Dyana Salgado, SHIRLEY) fluticasone propionate (FLONASE) nasal spray 2 spray 2 spray 2 times daily, each nostril, First dose on Sat06/11/22 at 1100 0929 (Given - Provider: Corry Rodriguez RN)2021 (Given - Provider: Kezia Gabriel RN) 104 (Given - Provider: Dyana Salgado, SHIRLEY)204 (Given - Provider: Annette Fabian, SHIRLEY) 0855 (Given - Provider: Dyana Salgado, SHIRLEY) folic acid (FOLVITE) tablet 1,000 mcg 1,000 mcg Daily, oral, First dose on Sat06/10/22 at 0900 1007 (Given - Provider: Corry Rodriguez RN) 1048 (Given - Provider: Dyana Salgado, SHIRLEY) 1344 (Not Given - Provider: Dyana Salgado RN - Reason: Patient/family refused) methotrexate tablet 20 mg 20 mg Weekly, oral, First dose (after last reorder) on Mary 06/21/22 at 1930, *DISCARD WASTE IN BLACK CONTAINERS*, Indication: Rheumatoid arthritis 1334 (Given - Provider: Dyana Salgado RN) metoprolol tartrate (LOPRESSOR) tablet 25 mg 25 mg 2 times daily, oral, First dose on 06/16/22 at 2330, Hold for systolic BP < 90 mmHg or for HR < 50 BPM 0917 (Given - Provider: Corry Rodriguez RN)2022 (Given - Provider: Kezia Gabriel RN) 1040 (Given - Provider: Dyana Salgado RN)204 (Given - Provider: Annette Fabian RN) 0851 (Given - Provider: Dyana Salgado RN) miconazole (MICOTIN) 2 % powder Topical, 2 times daily, First dose on Sat06/22/22 at 2100 0929 (Given - Provider: Corry Rodriguez RN)2024 (Given - Provider: Kezia Gabriel RN) 1100 (Not Given - Provider: Dyana Salgado RN - Reason: Medication/ Dose Unavailable)221 (Not Given - Provider: Annette Fabian RN - Reason: Medication/ Dose Unavailable) 1343 (Not Given - Provider: Dyana Salgado RN - Reason: Patient/family refused) miconazole (MICOTIN) topical cream 2% topical, 2 times daily, First dose on Sat06/22/22 at 2100 0929 (Given - Provider: Corry Rodriguez RN)2024 (Given - Provider: Kezia Gabriel RN) 1100 (Not Given - Provider: Dyana Salgado RN - Reason: Medication/ Dose Unavailable)2212 (Not Given - Provider: Annette Fabian RN - Reason: Medication/ Dose Unavailable) 1343 (Not Given - Provider: Dyana Salgado RN - Reason: Patient/family refused) midodrine (PROAMATINE) tablet 2.5 mg 2.5 mg 2 times daily before meals, oral, First dose on 06/23/22 at 1700, Administer during day hours only and at least 4 hours before bedtime. 1007 (Given - Provider: Corry Rodirguez RN)1727 (Given - Provider: Corry Rodriguez RN) 0649 (Given - Provider: Kezia Gabriel RN)1725 (Not Given - Provider: Dyana Salgado RN - Reason: Within Medication Parameters) 0632 (Given - Provider: Annette Fabian RN)1630 (Due) multivitamin (THERAGRAN) tablet 1 tablet 1 tablet Daily, oral, First dose on Sat06/11/22 at 1100 0917 (Given - Provider: Corry Rodriguez RN) 1041 (Given - Provider: Dyana Salgado RN) 0852 (Given - Provider: Dyana Salgado RN) pantoprazole (PROTONIX) DR tablet 40 mg 40 mg Daily, oral, First dose on Sat06/10/22 at 0900, * DO NOT CRUSH THIS DOSAGE FORM * 0917 (Given - Provider: Corry Rodriguez RN) 1041 (Given - Provider: Dyana Salgado RN) 0853 (Given - Provider: Dyana Salgado, SHIRLEY) polyethylene glycol (GLYCOLAX) packet 17 g 17 g Daily, oral, First dose on Sat06/10/22 at 0900, Bowel Regimen - for prevention of constipation. 0916 (Given - Provider: Corry Rodriguez RN) 1041 (Given - Provider: Dyana Salgado RN) 0851 (Given - Provider: Dyana Salgado RN) pregabalin (LYRICA) capsule 150 mg 150 mg Every Night, oral, First dose (after last modification) on Sat06/11/22 at 2100 2023 (Given - Provider: Kezia Gabriel RN) 2044 (Given - Provider: Annette Fabian RN) Saccharomyces boulardii (FLORASTOR) capsule 250 mg 250 mg 2 times daily, oral, First dose on Sat06/11/22 at 1100, Do not crush or open capsule. Must be swallowed whole. 0917 (Given - Provider: Corry Rodriguez RN)2023 (Given - Provider: Kezia Gabriel RN) 1039 (Given - Provider: Dyana Salgado RN)204 (Given - Provider: Annette Fabian, SHIRLEY) 0852 (Given - Provider: Dyana Salgado RN) PRN Medication Order 06/26/2022 06/27/2022 06/28/2022 acetaminophen (TYLENOL) tablet 1,000 mg 1,000 mg Every 6 hours PRN, oral, fever, Starting on Sat06/13/22 at 1334, Recommended maximum dose of acetaminophen is 4000 mg from all sources in 24 hours For fever only, Phase II/On Unit 0731 (Given - Provider: Dyana Salgado, SHIRLEY) acetaminophen (TYLENOL) tablet 500 mg 500 mg Every 6 hours PRN, oral, mild pain (1-3), Starting on Sat06/13/22 at 1401, Recommended maximum dose of acetaminophen is 4000 mg from all sources in 24 hours 1048 (Given - Provider: Dyana Salgado RN) aluminum-magnesium hydroxide-simethicone (MAALOX PLUS) suspension 30 mL 30 mL Every 6 hours PRN, oral, heartburn, Starting on Sat06/17/22 at 1821, Do NOT exceed 6 doses per order. calcium carbonate (TUMS) chewable tablet 500 mg (elemental calcium 200 mg) 500 mg Daily as needed (1 tablet), oral, indigestion, Starting on Sat06/22/22 at 1710, Each tablet contains 500 mg of calcium carbonate which equals 200 mg of elemental calcium. calcium gluconate 1 g in sodium chloride 0.9% (NS) 100 mL IVPB(Linked Group 1) at 100 mL/hr, Administer over 60 Minutes, intravenous, Daily as needed, Ionized CA 1.06 to 1.11 mmoL/liter, Starting on Sat06/27/22 at 0744, Administer over 1 hour. If calcium is replaced per protocol, recheck ionized calcium next morning. calcium gluconate 2 g in sodium chloride 0.9% (NS) 100 mL IVPB(Linked Group 1) at 100 mL/hr, Administer over 60 Minutes, intravenous, Daily as needed, Ionized CA 1 to 1.05 mmoL/liter, Starting on Sat06/27/22 at 0744, Administer over 1 hour. If calcium is replaced per protocol, recheck ionized calcium next morning. calcium gluconate 2 g in sodium chloride 0.9% (NS) 100 mL IVPB(Linked Group 1) at 100 mL/hr, Administer over 60 Minutes, intravenous, 2 times daily PRN, Ionized CA less than 1 mmol/L, Starting on Sat06/27/22 at 0744, Administer over 1 hour. If calcium is replaced per protocol, recheck ionized calcium next morning. dextrose (GLUTOSE) 40 % gel 15 g 15 g Every 15 min PRN, oral, low blood glucose (specify value in prn comments), mild symptomatic hypoglycemia,, Starting on Sat06/13/22 at 1000, Give for blood glucose 60-70 mg/dL if patient is alert and symptomatic. Repeat as ordered until blood glucose above 80 mg/dL. , Pre-op diclofenac (VOLTAREN) 1% topical gel 2 g 4 times daily PRN, topical, pain, Starting on 06/10/22 at 0848 fluconazole (DIFLUCAN) tablet 200 mg 200 mg Every 72 hours PRN, oral, vag yeast/itching, Starting on 06/11/22 at 1026, Caution: Recommend wearing gloves during administration. Although these tablets are chewable by the patient, it is not recommended for emplyees to break or crush. If there is no reasonable alternative, employee should use the closed system pill client engagement manager. Employees who are , trying to become , or should not handle this medication. Dispose of trace medication (including packaging) in the BLACK waste bin. magnesium sulfate IVPB 2 g in sterile water 50 mL at 25 mL/hr, Administer over 120 Minutes, intravenous, Daily as needed, for magnesium level 1.3 to 1.7 mg/dL, Starting on Sat06/27/22 at 0744, If magnesium is replaced per protocol order, recheck magnesium the next morning magnesium sulfate IVPB 2 g in sterile water 50 mL at 25 mL/hr, Administer over 120 Minutes, intravenous, 2 times daily PRN, for Magnesium Level less than 1.3 mg/dL, Starting on Sat06/27/22 at 0744, Total dose of 4 g for each low Magnesium result. If magnesium is replaced per protocol order, recheck magnesium the next morning. naloxone (NARCAN) injection 0.2 mg 0.2 mg Every 2 min PRN, intravenous, opioid reversal, respiratory depression, Starting on Sat06/13/22 at 1334, Give for respiratory rate less than 10 breaths/min or if patient is difficult to arouse. Max dose = 10 mg. Call provider., Phase II/On Unit ondansetron (ZOFRAN-ODT) disintegrating tablet 4 mg(Linked Group 2) 4 mg Every 8 hours PRN, oral, nausea, vomiting, Starting on Sat06/13/22 at 1334, 1st line. If inadequate response within 60 minutes, proceed to next-line agent for same PRN reason or contact provider if no further options ordered., Phase II/On Unit ondansetron PF (ZOFRAN) injection 4 mg(Linked Group 2) 4 mg Every 8 hours PRN, intravenous, nausea, vomiting, Starting on Sat06/13/22 at 1334, Give IV if patient is unable to take orally. 1st line If inadequate response within 60 minutes, proceed to next-line agent for same PRN reason or contact provider if no further options ordered. For IV push, give over 2 - 5 minutes., Phase II/On Unit oxyCODONE (ROXICODONE) immediate release tablet 5 mg 5 mg Every 4 hours PRN, oral, moderate pain (4-6), severe pain (7-10), Starting on Sat06/13/22 at 1334, 2nd line analgesic. Give only if inadequate response (less than 50% reduction in pain score) 60 minutes after administration of 1st line analgesics + adjuvants (if ordered). , Phase II/On Unit 2022 (Given - Provider: Kezia Gabriel, SHIRLEY) 2143 (Given - Provider: Annette Fabian, SHIRLEY) potassium chloride SA (K-DUR,DAVISOR-CON-M) CR tablet 40 mEq 40 mEq 4 times daily PRN, oral, for potassium less than or equal to 3.4 mmol/L, Starting on Sat06/27/22 at 0744, If potassium is replaced per protocol order, recheck potassium 1 hour after replacement and the next morning. Do not crush KCl tablets. * DO NOT CRUSH or CHEW* sodium phosphate 15 mmol in sodium chloride 0.9% (NS) 250 mL infusion (CENTRAL LINE)(Linked Group 3) 15 mmol Daily as needed, intravenous, Administer over 5 Hours, Phos 1.5 to 2.3, Starting on Sat06/27/22 at 0749, If phosphorus is replaced per protocol, recheck phosphorus next morning. * HIGH ALERT MEDICATION * Administer via Central Line only. Rate should NOT exceed 7.5 mMol/hr. sodium phosphate 15 mmol in sodium chloride 0.9% (NS) 250 mL infusion (CENTRAL LINE)(Linked Group 3) 15 mmol Every 2 hour PRN, intravenous, Administer over 5 Hours, Phos less than 1.5, Starting on Sat06/27/22 at 0749, For 2 doses, Infuse 2 doses for total of 30 mmol for the day. If phosphorus is replaced per protocol, recheck phosphorus next morning. * HIGH ALERT MEDICATION * Administer via Central Line only. Rate should NOT exceed 7.5 mMol/hr. Linked Groups Order Group 1: calcium gluconate 1 g in sodium chloride 0.9% (NS) 100 mL IVPBJump to med at 100 mL/hr, Administer over 60 Minutes, intravenous, Daily as needed, Ionized CA 1.06 to 1.11 mmoL/liter, Starting on Sat06/27/22 at 0744, Administer over 1 hour. If calcium is replaced per protocol, recheck ionized calcium next morning. And calcium gluconate 2 g in sodium chloride 0.9% (NS) 100 mL IVPBJump to med at 100 mL/hr, Administer over 60 Minutes, intravenous, Daily as needed, Ionized CA 1 to 1.05 mmoL/liter, Starting on Sat06/27/22 at 0744, Administer over 1 hour. If calcium is replaced per protocol, recheck ionized calcium next morning. And calcium gluconate 2 g in sodium chloride 0.9% (NS) 100 mL IVPBJump to med at 100 mL/hr, Administer over 60 Minutes, intravenous, 2 times daily PRN, Ionized CA less than 1 mmol/L, Starting on Sat06/27/22 at 0744, Administer over 1 hour. If calcium is replaced per protocol, recheck ionized calcium next morning. Group 2: ondansetron (ZOFRAN-ODT) disintegrating tablet 4 mgJump to med 4 mg Every 8 hours PRN, oral, nausea, vomiting, Starting on Sat06/13/22 at 1334, 1st line. If inadequate response within 60 minutes, proceed to next-line agent for same PRN reason or contact provider if no further options ordered., Phase II/On Unit Or ondansetron PF (ZOFRAN) injection 4 mgJump to med 4 mg Every 8 hours PRN, intravenous, nausea, vomiting, Starting on Sat06/13/22 at 1334, Give IV if patient is unable to take orally. 1st line If inadequate response within 60 minutes, proceed to next-line agent for same PRN reason or contact provider if no further options ordered. For IV push, give over 2 - 5 minutes., Phase II/On Unit Group 3: sodium phosphate 15 mmol in sodium chloride 0.9% (NS) 250 mL infusion (CENTRAL LINE)Jump to med 15 mmol Daily as needed, intravenous, Administer over 5 Hours, Phos 1.5 to 2.3, Starting on Sat06/27/22 at 0749, If phosphorus is replaced per protocol, recheck phosphorus next morning. * HIGH ALERT MEDICATION * Administer via Central Line only. Rate should NOT exceed 7.5 mMol/hr. And sodium phosphate 15 mmol in sodium chloride 0.9% (NS) 250 mL infusion (CENTRAL LINE)Jump to med 15 mmol Every 2 hour PRN, intravenous, Administer over 5 Hours, Phos less than 1.5, Starting on Sat06/27/22 at 0749, For 2 doses, Infuse 2 doses for total of 30 mmol for the day. If phosphorus is replaced per protocol, recheck phosphorus next morning. * HIGH ALERT MEDICATION * Administer via Central Line only. Rate should NOT exceed 7.5 mMol/hr. documented in this encounter Care Teams [employer] [facility] Relationship Specialty [place] [id number] [address] [id number] PCP - General Family Medicine 06/07/22 06/05/23 documented as of this encounter
--- OUTSIDE RECORDS SUMMARY | 2024-01-26 15:03 | XMS_ITS | Encounter Summary ---
Author Organization [employer] [facility] [facility] Address [address] [place] [address] Care Team Providers Care Desk Manager Name Role Phone Mayank Angel MD Primary Care Provider [phone] Reason for Visit * Reason Comments Generalized Weakness, Not Associated Wit h Extremities * Auth/Cert Specialty Diagnoses / Procedures Referred By Dalton hayens Referred To Contact Diagnoses Weakness Acute respiratory failure with hypoxia (HCC) Urinary tract infection without hematuria, site unspecified Altered mental status, unspecified altered mental status type Midline low back pain without sciatica, unspecified chronicity [address] Neuro Telemetry Unit [address] [place] [phone] Phone: tel: fax: [address] Neuro Telemetry Unit 1 [place] [address] Phone: tel: fax: Referral ID Status Reason Start Date Expiration Date Visits Re quested Visits Authorized [id number] 1 1 Encounter Details Date Type Department Care Team (Late st Contact Info) Description 06/12/2022 10:20 AM EDT - 06/12/2022 12:10 PM EDT Surgery [facility] Operating Room 1 [place] [address] [place] [address] [place] [address] [address] [place] [address] (LT L5-S1 FACETECTOMY AND NEUROFORAMINOTOMY Social History Tobacco Use Types Packs/Day Years Used Date Smoking Tobacco: Never Smokeless Tobacco: Never Tobacco Cessation:Counseling Given: Not Answered Alcohol Use Standard Drinks/Week Comments Never 0 (1 standard drink = 0.6 oz pur e alcohol) PRAPARE - Transportation Answer Date Re corded In the past 12 months, has l ack of transportation kept you from medical appointments or from getting medications? No 06/11/2022 Lack of Transportation (Non-Medical) Not on file 06/11/2022 Housing Stability Vital Sign Answer Amrit e Recorded In the last 12 months, was t here a time when you were not able to pay the mortgage or rent on time? No 06/11/2022 In the last 12 months, how many places have you lived? 1 06/11/2022 In the last 12 months, was t here a time when you did not have a steady place to sleep or slept in a [place] facility (including now)? No 06/11/2022 Comments No Sex and Gender Information Value [...] Sign Reading Time Taken Comments Blood Pressure 137/65 06/12/2022 9:41 AM EDT Pulse 78 06/12/2022 9:41 AM EDT Temperature 36.5 ??C (97.7 ??F) 06/12/2022 9:22 AM ED T Respiratory Rate 16 06/12/2022 9:22 AM EDT Oxygen Saturation 96% 06/12/2022 9:22 AM EDT Room air Inhaled Oxygen Concentration - - Weight 68 [...] at home, taking a half tab of [place] due to side effects (morphine allergy is [...] increased troponin. She was taken to the laundry laborer that day with the following results: Successful balloon angioplasty and stenting of subtotal occlusion of proximal circumflex heavily calcified lesion 99% reduced to 10% predilated with shockwave balloon 3.5 and treated with Strong 3.5 x 15 drug-eluting stent which was postdilated with a 4.0 noncompliant balloon atmospheres She has had episodes of orthostatic hypotension limiting her work with PT. Working to adjust meds so that her orthostasis improve. Fall risk with back surgery and need to ensure she can participate with PT. Partner ordered cortisol. Cosyntropin workup ordered and pending. Per NSGY she can d/c to [facility], need CARD to sign off. Per CM no pre-cert needed so will be a quick transfer to [facility] when ready Patient seen by [facility] throughout the hospitalization including multiple physicians including her primary cottage parent Dr. Grazyna Sexton as well as on [...] needed. Discussed with Yady Rajan PA-C from [facility] medicine. ? 06/14/2022 Current medical therapy appropriate Refer to cardiac rehab Ambulate with PT per surgical recommendations We will plan for outpatient follow-up in 4 weeks ?? 06/13/2022 Urgent cardiac catheterization. I spoke with Neurosurgeon Dr. Odonnell about the situation. We are clear to use anti-platelets and anti-coag as needed. I spoke with Dr. Porras in the laundry laborer regarding the case. Followed by [facility] neurosurgery. On June 15 [...] asa, continue statin ?? Metabolic Encephalopathy, resolved: ??2/ acute UTI, - complicated by narcotic use [...] also states that she seen some different cottage parent but she really likes Dr. Sexton who is followed her for a number of years as an outpatient and she wants to know why he has not seen her here. I did explain that different cottage parent because of restraints their schedule rotate through the hospital as well as the Blood Bank Technologist as wellas the clinic. Explained she has multiple medical problems including non-ST elevation DC with drug-eluting stent placed low blood pressure [...] 2 of them. Patient had lived in [facility] for 20 or 30 years but recently moved to [place] within the past couple of years to [...] before going home with her daughter to [facility]. Labs drawn today white blood cell count [...] they have a bed transportation and preauthorization , June 28, 2022 daughters at the bedside patient's very excited about going to [facility] she states that she has been there in the past and it was an extremely positive experience for her. She stated that she would like to talk to one of the representatives from [facility]. Patient's nurse was with me at the bedside and asked her to give cardiology a call and see if they could come by and at least say hello before she goes to help relieve some [...] mg-300 mcg- 250 mcg Tab Generic drug: cjwopjuk-hdv-GE-lycopen-lutein Take 1 tablet by mouth daily . [...] Your Medications These medications were sent to [facility] at [address] [facility] [address] [place] [phone] ?? acetaminophen 500 MG tablet ?? clopidogreL 75 mg tablet ?? miconazole 2 % powder ?? midodrine 2.5 MG tablet ?? oxyCODONE 5 MG immediate release tablet ?? pregabalin 150 MG capsule Physical Exam Constitutional: General: She is not in acute distress. Appearance: Normal appearance. She is not toxic-appearing. Comments: Delightful elderly 81-year-old lady very enthusiastic about going to [facility] HENT: Head: Normocephalic and atraumatic. Nose: No [...] she will participate in physical therapy at [facility] Discharge Instructions Discharge Diet: Healthy heart diet Discharge Activity: Advance with physical therapy but taking great care to not go from a laying down to standing position quickly. Recommended she set a timer for 10 minutes of sitting on the side ofthe bed before she attempts to stand. Discharge Follow UP: Contact information for follow-up [facility] Specialty: [facility] [address] [place] [address] [address] [facility] [address] Next Steps: Follow up GRAZYNA DOWELL MD Specialty: Cardiology [address] [place] [address] [address] [place] [address] Next Steps: Follow up in 1 month(s) Instructions: Dr. Grazyna Dowell 07/27/22 @10:30AM [facility] [address] [facility] [address] [place] [address] Office Mayank Angel MD Specialty: Family Medicine Relationship: PCP - General [address] [facility] [place] [address] Next Steps: Follow up in 1 week(s) Instructions: Dr. Mayank Angel 06/26/22 @9:45am [facility] Primary Care [address] [facility] [address] Office EDITH ODONNELL MD Specialty: Neurosurgery [address] [facility] [address] [facility] [address] Next Steps: Follow up Instructions: Dr. Edith Odonnell 07/25/22 @10:45AM [facility] Neurosurgery [address] [facility] [address] [place] [id number] Office Per Dr. Odonnell's office, no x-rays [...] any lotions or ointments to your incision Minier will be removed in office Steri-strips or [...] Care Everywhere. * Coronary Angiogram Care After (Greek) * Femoral Site Care (Greek) * Urinary Tract Infection Adult Vfyw-qr-Msbn (Greek) documented in this encounter Medications at Time [...] total) by mouth once a week. 10/31/2021 rwstvfoc-cnx-JX- lycopen-lutein (Centrum Silver) 0.4 mg-300 mcg- 250 [...] Inpatient Rehab Inpatient Rehab Name and Number [facility] Transportation Provider [facility] Transportation Provider Phone [phone] Date of supervisor television chassis repair 06/28/22 Time of supervisor television chassis repair 1615 Patient to DC to [facility] Med Unit today via [facility] wheelchair van transportation. JESENIA and hailey signed and on chart 06/28/22. Dorinda Graham RN * Kimmie Blood, CLAIM ANALYST - 06/28/2022 10:07 AM EDT Images from [...] Cord in reach, Visitor/Family present Assisted by: cytopathology technologist Precautions Weight-Bearing Status: No Restrictions Precautions: Fall [...] 2:00 PM EDT Discharge Plan Progress Note [facility] rep Marie has submitted patient to [facility] for approval. Awaiting decision Dorinda Graham RN [...] Name JOHN Mallory Age 81 Patient Number [id number] Gender Female Race Ethnicity Corporate ID [id number] Height 62 Date of 1940 Weight 150 Accession Number [id number] BSA 1.69 m^2 Room Number 538 BMI 27.44 kg/m^2 Referring Physician ARSLAN PORRAS Interpreting Physician ARSLAN PORRAS DO Pretzel Twisting Machine Operator Humble Montes Procedure Type of Study: US GUIDED VASCULAR ACCESS : . Impressions Summary INDICATION: Angina at rest I20.8 . RIGHT: Ultrasound guided vascular access of Common femoral artery . INTERNET SPECIALIST was 3.0 cm in depth and patent. [...] list of medical problems including non-ST elevation DC low blood pressure disc hernia surgery repair [...] no shortness of breath coughing or wheezing. Wednesday, June 27, 2022. Patient's daughter normally child [...] Patient states that she is originally from [facility] she lived there for 20 to 30 years and that she moved to [place] couple of years ago to be closer [...] 20 mg Oral Weekly 20 mg at 06/21/22 2134 ??? metoprolol tartrate 25 mg Oral BID [...] Night 150 mg at 06/26/222023 ??? Saccharomyces bonatanaeldii 250 mg Oral BID 250 mg at [...] Medical Decision Making: Discharge Disposition: Looking at [facility] or other rehab facilities. Continue measures and [...] also states that she seen some different cottage parent but she really likes Dr. Sexton who is followed her for a number of years as an outpatient and she wants to know why he has not seen her here. I did explain that different cottage parent because of restraints their schedule rotate through the hospital as well as the Blood Bank Technologist as wellas the clinic. Explained she has multiple medical problems including non-ST elevation DC with drug-eluting stent placed low blood pressure [...] 2 of them. Patient had lived in [facility] for 20 or 30 years but recently moved to [place] within the past couple of years to [...] before going home with her daughter to [facility]. Labs drawn today white blood cell count [...] in bed Co-treated by: OT, assisted by rehab director Precautions Weight-Bearing Status: No Restrictions Precautions: Fall [...] do reps of sit to stand with MOPHEAD TRIMMER [employer] WRAPPER, but pt unable to tolerate>1 rep. Gait [...] Electronically signed by Alma Luong PT - 06/27/2022 - 1:43 PM EDT * Joel Gresham OTR/Tricia - 06/27/2022 11:32 AM EDT Images from [...] Hyperlipidemia ??? Hypertension ??? Lumbar spondylolysis ??? DC (myocardial infarction) (HCC) ??? Osteopenia ??? Psoriatic arthritis (HCC) ??? Psoriatic arthritis (HCC) Past Surgical History: Procedure Laterality Date ??? CHOLECYSTECTOMY ??? HYSTERECTOMY ??? LAMINECTOMY,LUMBAR Left 06/12/2022 Procedure: (LT L5-S1 FACETECTOMY AND NEUROFORAMINOTOMY; Surgeon: Edith Odonnell MD; Location: [facility]; Service: Neurosurgery; Laterality: Left; [place] 0800,1.5HRS(R) ??? [...] in bed Co-treated by: PT Assisted by: cytopathology technologist Precautions Weightbearing status: No restrictions Precautions: Fall [...] Pt will complete??lower body dressing??with modified independence??using cook helper pastry, long handled shoehorn, sock aid. Bed mobility: [...] summary. Electronically signed by ADILENE Landry/Tricia - 06/27/2022 - 3:45 PM EDT * [...] Name JOHN Mallory Age 81 Patient Number [id number] Gender Female Race Ethnicity Corporate ID [id number] Height 62 Date of 1940 Weight 150 Accession Number [id number] BSA 1.69 m^2 Room Number 538 BMI 27.44 kg/m^2 Referring Physician ARSLAN PORRAS Interpreting Physician ARSLAN PORRAS DO Pretzel Twisting Machine Operator Humble Montes Procedure Type of Study: US GUIDED VASCULAR ACCESS : . Impressions Summary INDICATION: Angina at rest I20.8 . RIGHT: Ultrasound guided vascular access of Common femoral artery . INTERNET SPECIALIST was 3.0 cm in depth and patent. [...] list of medical problems including non-ST elevation DC low blood pressure disc hernia surgery repair [...] mg Subcutaneous Q24H CHRIS 40 mg at 06/26/22915 ??? famotidine 20 mg Oral BID 20 [...] with shockwave balloon 3.5 and treated with Strong 3.5 x 15 drug-eluting stent which was [...] Medical Decision Making: Discharge Disposition: Looking at [facility] or other rehab facilities. Continue measures and [...] also states that she seen some different cottage parent but she really likes Dr. Sexton who is followed her for a number of years as an outpatient and she wants to know why he has not seen her here. I did explain that different cottage parent because of restraints their schedule rotate through the hospital as well as the Blood Bank Technologist as wellas the clinic. Explained she has multiple medical problems including non-ST elevation DC with drug-eluting stent placed low blood pressure [...] Note Patient continues to be followed by [facility] for possible discharge placement, waiting for improvement in ability to work with therapy (r/t orthostatic hypotension) Dorinda Graham RN * Alma Luong PT - 06/26/2022 2:06 PM EDT Images from the original note were not included. Inpatient Physical Therapy Treatment Patient Name: Chen Merritt Date of : 1940 Date of Treatment: 06/26/22 Start Time 140 Stop Time 1430 Session Duration 24 minutes [...] pt reclined with feet up in chair, TQ=703/76 mmHg Functional Mobility Bed Mobility: Supine to [...] - 06/26/2022 - 4:16 PM EDT * ADILENE Landry/Tricia - 06/26/2022 1:58 PM EDT Images from [...] Hyperlipidemia ??? Hypertension ??? Lumbar spondylolysis ??? DC (myocardial infarction) (HCC) ??? Osteopenia ??? Psoriatic arthritis (HCC) ??? Psoriatic arthritis (HCC) Past Surgical History: Procedure Laterality Date ??? CHOLECYSTECTOMY ??? HYSTERECTOMY ??? LAMINECTOMY,LUMBAR Left 06/12/2022 Procedure: (LT L5-S1 FACETECTOMY AND NEUROFORAMINOTOMY; Surgeon: Edith Odonnell MD; Location: [facility]; Service: Neurosurgery; Laterality: Left; [place] 0800,1.5HRS(R) ??? LAMINECTOMY,LUMBAR W/FUSION N/A 12/14/2021 Procedure: L3-5, L5-S1 FUSION AND DECOMPRESSION AUGMENTATION WITH ZIEHM; Surgeon: Edith Odonnell MD; Location: [facility]; Service: Neurosurgery; Laterality: N/A; [place] 0830. 3 [...] Pt will complete??lower body dressing??with modified independence??using cook helper pastry, long handled shoehorn, sock aid. Bed mobility: [...] summary. Electronically signed by SALUD Landry - 06/26/2022 - 4:06 PM EDT * Johanny Ponce Chloe, MS, RD, LD - 06/26/2022 11:[address] [facility] NUTRITION ASSESSMENT AD[facility] Nutrition Assessment The patient is a 81 y.o. female presenting w/ confusion and weakness. Present on Admission: None (Admitting Diagnoses) Nutrition Evaluation Type: Follow Up Reason for Evaluation: LOS Subjective Comments: 06/26: [facility]creen[facility]. Pt working with [...] Hyperlipidemia ??? Hypertension ??? Lumbar spondylolysis ??? DC (myocardial infarction) (HCC) ??? Osteopenia ??? Psoriatic arthritis (HCC) ??? Psoriatic arthritis (HCC) Past Surgical History: Procedure Laterality Date ??? CHOLECYSTECTOMY ??? HYSTERECTOMY ??? LAMINECTOMY,LUMBAR Left 06/12/2022 Procedure: (LT L5-S1 FACETECTOMY AND NEUROFORAMINOTOMY; Surgeon: Edith Odonnell MD; Location: [facility]; Service: Neurosurgery; Laterality: Left; [place] 0800,1.5HRS(R) ??? LAMINECTOMY,LUMBAR W/FUSION N/A 12/14/2021 Procedure: L3-5, L5-S1 FUSION AND DECOMPRESSION AUGMENTATION WITH ZIEHM; Surgeon: Edith Odonnell MD; Location: [facility]; Service: Neurosurgery; Laterality: N/A; [place] 0830. 3 HRS (R). PASS. AIRO. PRE CERT STARTED, ??? open heart 2008 4 bypass Nutrition Monitoring and Goals: 1. Continue a regular diet. RD to add ONS prn. Goal: intakes >75% 2. Monitor elytes, recommend replacing prn. Goal: wnls Nutrition Risk Level: No Risk Johanny Corona MS, RD, LD * Chino Reardon MD [...] 81 mg Oral Daily 81 mg at 06/25/22945 ??? atorvastatin 40 mg Oral Every Night [...] Reardon MD 06/26/2022, 12:27 AM * Joel Gresham, OTR/L - 06/25/2022 2:28 PM EDT Images from the original note were not included. Inpatient Occupational Therapy Treatment Note Patient Name: Chen Merritt Date of : 1940 Date of Treatment: 06/25/22 Start Time: 1427 Stop Time: 1446 Session Duration: 19 This patient is a [...] Hyperlipidemia ??? Hypertension ??? Lumbar spondylolysis ??? DC (myocardial infarction) (HCC) ??? Osteopenia ??? Psoriatic arthritis (HCC) ??? Psoriatic arthritis (HCC) Past Surgical History: Procedure Laterality Date ??? CHOLECYSTECTOMY ??? HYSTERECTOMY ??? LAMINECTOMY,LUMBAR Left 06/12/2022 Procedure: (LT L5-S1 FACETECTOMY AND NEUROFORAMINOTOMY; Surgeon: Edith Odonnell MD; Location: [facility]; Service: Neurosurgery; Laterality: Left; IN 0800,1.5HRS(R) ??? LAMINECTOMY,LUMBAR W/FUSION N/A 12/14/2021 Procedure: L3-5, L5-S1 FUSION AND DECOMPRESSION AUGMENTATION WITH ZIEHM; Surgeon: Edith Odonnell MD; Location: [facility]; Service: Neurosurgery; Laterality: N/A; IN 0830. 3 [...] Pt will complete??lower body dressing??with modified independence??using cook helper pastry, long handled shoehorn, sock aid. Bed mobility: [...] summary. Electronically signed by ADILENE Landry/Tricia - 06/25/2022 - 3:28 PM EDT * Urmila Stern PT - 06/25/2022 2:12 PM EDT Images [...] with standing. Treatment Bed mobility training rolling DC with bedrail; supine>sit mod A x 1 [...] Supine to/from sit:??supervision Sit to/from stand:??Tyson, Rwx??(met 4.) Gait:??50ft, Rwx, Tyson Transfer:??Tyson, Rwx?? Goals date [...] 06/25/2022 - 3:07 PM EDT * Simin Corrigans, DO - 06/24/2022 3:35 PM EDT Subjective [...] Range POC-GLUCOSE 97 70 - 110 mg/dL Jewel Stringer [id number] Glucose, Nova Meter Status: Abnormal Collection Time: 06/24/22 10:53 AM Result Value Ref Range POC-GLUCOSE 144 (H) 70 - 110 mg/dL Jewel Stringer [id number] Ultrasound-guided vascular access Vascular Procedure Demographics Patient Name JOHN Mallory Age 81 Patient Number [id number] Gender Female Race Ethnicity Corporate ID [id number] Height 62 Date of 1940 Weight 150 Accession Number [id number] BSA 1.69 m^2 Room Number 538 BMI 27.44 kg/m^2 Referring Physician ARSLAN PORRAS Interpreting Physician ARSLAN PORRAS DO Pretzel Twisting Machine Operator Humble Montes Procedure Type of Study: US GUIDED VASCULAR ACCESS : . Impressions Summary INDICATION: Angina at rest I20.8 . RIGHT: Ultrasound guided vascular access of Common femoral artery . INTERNET SPECIALIST was 3.0 cm in depth and patent. [...] him on 06/20 by previous hospitalist -naren hosaki ordered 06/23, midodrine ordered to start ;6 as above -tsh reviewed, t4 reviewed ?? ACS -06/13--Successful balloon angioplasty and stenting of subtotal occlusion of proximal circumflex heavily calcified lesion 99% reduced to 10% -predilated with shockwave balloon 3.5 and treated with Strong 3.5 x 15 drug-eluting stent which was [...] Name JOHN Mallory Age 81 Patient Number [id number] Gender Female Race Ethnicity Corporate ID [id number] Height 62 Date of 1940 Weight 150 Accession Number [id number] BSA 1.69 m^2 Room Number 538 BMI 27.44 kg/m^2 Referring Physician ARSLAN PORRAS Interpreting Physician ARSLAN PORRAS DO Pretzel Twisting Machine Operator Humble Montes Procedure Type of Study: US GUIDED VASCULAR ACCESS : . Impressions Summary INDICATION: Angina at rest I20.8 . RIGHT: Ultrasound guided vascular access of Common femoral artery . INTERNET SPECIALIST was 3.0 cm in depth and patent. [...] -on 06/[address] Baron, stop cardizem--requested he to revisit. Per cards, continue stockings, [...] with shockwave balloon 3.5 and treated with Strong 3.5 x 15 drug-eluting stent which was [...] Name JOHN Mallory Age 81 Patient Number [id number] Gender Female Race Ethnicity Corporate ID [id number] Height 62 Date of 1940 Weight 150 Accession Number [id number] BSA 1.69 m^2 Room Number 538 BMI 27.44 kg/m^2 Referring Physician ARSLAN PORRAS Interpreting Physician ARSLAN PORRAS DO Pretzel Twisting Machine Operator Humble Montes Procedure Type of Study: US GUIDED VASCULAR ACCESS : . Impressions Summary INDICATION: Angina at rest I20.8 . RIGHT: Ultrasound guided vascular access of Common femoral artery . INTERNET SPECIALIST was 3.0 cm in depth and patent. [...] 06/[address] Baron, [facility]requested he to revisit. -continue bb -cortisol ordered with cosyntropin and then repeat cortisol level 30 min and 1 hour after. [facility] ER plan for AM-- attempt for this on 06/21 was unsuccessful I have personally spoke to lab, pharmacy, nursing regarding timing importance, dicsussed with patient and her daughter as well, education provided and questions answered -this is INHIBITING HER ABILITY TO WORK WITH PT AND GET TO [facility] -defer need for limited echo to Dr. Baron, discussed w him on 06/20 by previous hospitalist -need for compression hose deferred to cards ?? ACS -06/13--Successful balloon angioplasty and stenting of subtotal occlusion of proximal circumflex heavily calcified lesion 99% reduced to 10% -predilated with shockwave balloon 3.5 and treated with Strong 3.5 x 15 drug-eluting stent which was [...] work with PT and not have orthostasis. [facility] following ?? MDM: High Time: 36 mins. Plan As above * Dorinda Graham RN - 06/22/2022 3:34 PM EDT Discharge Plan Progress Note Cynthia with [facility] following for possible admission Patient still orthostatic when working with therapy, will need to improve before [facility] will accept Dorinda Graham RN * Mckayla Clark Barreto, OTR/L - 06/22/2022 2:50 PM EDT Images from [...] Coronary artery disease Hyperlipidemia Hypertension Lumbar spondylolysis DC (myocardial infarction) (HCC) Osteopenia Psoriatic arthritis (HCC) Psoriatic arthritis (HCC) Past Surgical History: Procedure Laterality Date CHOLECYSTECTOMY HYSTERECTOMY LAMINECTOMY,LUMBAR Left 06/12/2022 Procedure: (LT L5-S1 FACETECTOMY AND NEUROFORAMINOTOMY; Surgeon: Edith Odonnell MD; Location: [facility]; Service: Neurosurgery; Laterality: Left; [place] 0800,1.5HRS(R) LAMINECTOMY,LUMBAR W/FUSION N/A 12/14/2021 Procedure: L3-5, L5-S1 FUSION AND DECOMPRESSION AUGMENTATION WITH ZIEHM; Surgeon: Edith Odonnell MD; Location: [facility]; Service: Neurosurgery; Laterality: N/A; IN 0830. 3 [...] lower body dressing with modified independence using cook helper pastry,long handled shoehorn, sock aid. Bed mobility: Pt [...] the patient's discharge summary. Electronically signed by NIA Sanchez - 06/22/2022 - 3:29 PM EDT OTR/L has read documentation and is in agreement. Electronically signed by ADILENE Hector/Tricia - 06/22/2022 - 3:48 PM EDT * Jolynn Cottrell, PT - 06/22/2022 2:50 PM EDT [...] aware/notified, HOB >30 degrees Co-treated by: Kassidy KRAMER OT student Precautions Weight-Bearing Status: No Restrictions [...] Supine to/from sit: supervision Sit to/from stand: Chapito Mehta (met 4.30.23) Gait: 50ft, Rwx, Tyson Transfer: Chapito Mehta Progress towards goals: progression limited by Hypotension [...] summary. This note was written by a PT/CLAIM ANALYST Student and has been reviewed and agreed upon by this PT. Electronically signed by Jolynn Cottrell, PT - 06/22/2022 - 4:13 PM EDT Electronically signed by Crissy Julien, Physical Therapist Student - 06/22/2022 - 3:52 PM EDT * Simin Awad, DO - 06/21/2022 3:39 PM EDT Subjective Patient [...] vascular access Vascular Procedure Demographics Patient Name JHON Mallory Age 81 Patient Number [id number] Gender Female Race Ethnicity Corporate ID [id number] Height 62 Date of 1940 Weight 150 Accession Number [id number] BSA 1.69 m^2 Room Number [id number] BMI 27.44 kg/m^2 Referring Physician ARSLAN PORRAS Interpreting Physician ARSLAN PORRAS DO Pretzel Twisting Machine Operator [place] Procedure Type of Study: US GUIDED VASCULAR ACCESS : . Impressions Summary INDICATION: Angina at rest I20.8 . RIGHT: Ultrasound guided vascular access of Common femoral artery . INTERNET SPECIALIST was 3.0 cm in depth and patent. [...] -on 06/20 case discussed w qamar [facility]requested he to revisit. -continue bb -cortisol ordered with cosyntropin and then repeat cortisol level 1 hour after. I do not see that the repeat cortisol was resulted 1 hr after I am attempting to clarify with lab and nursing staff.In the meantime continue to HOLD FLORINEF -will fluid challenge -this is INHIBITING HER ABILITY TO WORK WITH PT AND GET TO [facility] -defer need for limited echo to Dr. Baron, discussed w him on 06/20 by previous hospitalist -need for compression hose deferred to cards ?? ACS -06/13--Successful balloon angioplasty and stenting of subtotal occlusion of proximal circumflex heavily calcified lesion 99% reduced to 10% -predilated with shockwave balloon 3.5 and treated with Strong 3.5 x 15 drug-eluting stent which was [...] Time: 37 mins. Plan As above * ADILENE Lam/Tricia - 06/21/2022 11:01 AM EDT Images from [...] Hyperlipidemia ??? Hypertension ??? Lumbar spondylolysis ??? DC (myocardial infarction) (HCC) ??? Osteopenia ??? Psoriatic [...] Pt will complete??lower body dressing??with modified independence??using cook helper pastry, long handled shoehorn, sock aid. Bed mobility: [...] and pt felt nauseous. Sight went black, andfranklin requested a cold cloth on her neck. [...] Supine to/from sit: supervision Sit to/from stand: Chapito Mehta (met 4.30.23) Gait: 50ft, Rwx, Tyson Transfer: [...] patient's discharge summary. Electronically signed by Crissy Julien,Physical Therapist Student - 06/21/2022 - 12:47 PM EDT This note written by PT student. PT has reviewed the above documentation and agrees. Electronically signed by Skip Singh, PT, DPT - 06/22/22 - 11:05 AM EST * Dorinda Graham RN - 06/20/2022 1:23 PM EDT Discharge Plan Progress Note Hospital day 10 Estimated LOS 8.5 High readmission risk Cardio reconsulted for weakness and orthostatice hypotension. Cynthia with [facility] is monitoring patient for progress with therapy for possible [facility] admission. Dorinda Graham RN * Abebe Baron MD - 06/20/2022 11:54 AM EDT [facility] Basic Information: Name Chen Merritt, 1940, 81 y.o., female Primary Operations Specialist: Dr. Grazyna Dowell PCP: Mayank Angel MD [...] mg total) before bedtime. Yes Historical Provider, ojxkdmmn-mxb-ZX-lycopen-lutein (Centrum Silver) 0.4 mg-300 mcg- 250 mcg [...] Coronary artery disease, Hyperlipidemia, Hypertension, Lumbar spondylolysis, DC (myocardial infarction) (HCC), Osteopenia, Psoriatic arthritis (HCC), [...] Non-distended, Normal bowel sounds. Integumentary: Warm, Dry, [place]. Neurologic: Alert, Oriented. Psychiatric: Cooperative, Appropriate mood [...] 3 are occluded as demonstrated by angiography -RVIERA to the LAD-the RIVERA is intact. The [...] needed. Discussed with Yady Rajan PA-C from [facility]. 06/14/2022 Current medical therapy appropriate Refer to cardiac rehab Ambulate with PT per surgical recommendations We will plan for outpatient follow-up in 4 weeks 06/13/2022 Urgent cardiac catheterization. I spoke with Neurosurgeon Dr. Odonnell about the situation. We are clear to use anti-platelets and anti-coag as needed. I spoke with Dr. Porras in the laundry laborer regarding the case. * Sraahi Rajan PA-C - 06/20/2022 11:01 AM EDT [...] spray Each Nare BID 2 spray at 06/20/22943 ??? folic acid 1,000 mcg Oral Daily 1,000 mcg at 05/03/23 0942 ??? metoprolol tartrate 25 mg Oral BID 25 mg at 06/19/222158 ??? multivitamin 1 tablet Oral Daily 1 tablet at 06/20/22942 ??? pantoprazole 40 mg Oral Daily 40 mg at 06/20/22942 ??? polyethylene glycol 3350 17 g Oral Daily 17 g at 06/20/2242 ??? pregabalin 150 mg Oral Every Night 150 mg at 06/19/222200 ??? Saccharomyces boulardii 250 mg Oral BID 250 mg at 06/20/22942 ??? sodium chloride 0.9% (NS) 500 mL Intravenous Once Continuous Infusions: PRN Meds: ??? acetaminophen ??? acetaminophen ??? aluminum-magnesium hydroxide-simethicone ??? dextrose ??? diclofenac ??? fluconazole ??? naloxone ??? ondansetron Or ??? ondansetron PF ??? oxyCODONE Assessment and Plan Orthostatic hypotension -check daily -discussed w Dr. Baron, stop [facility]requested he to revisit. -continue bb -will order cortisol level tomorrow at 0800. Request cosyntropin and then repeat cortisol level 1 hour after. Not sure if feasible from staff perspective but will attempt. HOLD FLORINEF -will fluid challenge -this is INHIBITING HER ABILITY TO WORK WITH PT AND GET TO [facility] -defer need for limited echo to Dr. [...] -clarify with cards--defer to them. Discussed w Radha. Cards recs ASA only as no AFIB [...] 06/21/2022 11:35 AM EDT * Yuli Fair, OTR/Tricia - 06/20/2022 9:58 AM EDT Images from [...] Hyperlipidemia ??? Hypertension ??? Lumbar spondylolysis ??? DC (myocardial infarction) (HCC) ??? Osteopenia ??? Psoriatic arthritis (HCC) ??? Psoriatic arthritis (HCC) Past Surgical History: Procedure Laterality Date ??? CHOLECYSTECTOMY ??? HYSTERECTOMY ??? LAMINECTOMY,LUMBAR Left 06/12/2022 Procedure: (LT L5-S1 FACETECTOMY AND NEUROFORAMINOTOMY; Surgeon: Edith Odonnell MD; Location: [facility]; Service: Neurosurgery; Laterality: Left; [place] 0800,1.5HRS(R) ??? LAMINECTOMY,LUMBAR W/FUSION N/A 12/14/2021 Procedure: L3-5, L5-S1 FUSION AND DECOMPRESSION AUGMENTATION WITH ZIEHM; Surgeon: Edith Odonnell MD; Location: [facility]; Service: Neurosurgery; Laterality: N/A; [place] 0830. 3 [...] Pt will complete??lower body dressing??with modified independence??using cook helper pastry, long handled shoehorn, sock aid. Bed mobility: [...] summary. Electronically signed by ADILENE Carnes/Tricia - 06/20/2022 - 1:58 PM EDT * [...] >30 degrees, Side rails up Co-treated by: Yuli KRAMER Precautions Weight-Bearing Status: No Restrictions Precautions: Fall [...] by Crissy Julien Physical Therapist Student - 06/20/2022 - 11:52 [...] mg Oral Every Night 150 mg at 06/18/222040 ??? Saccharomyces boulardii 250 mg Oral BID 250 mg at 06/19/22 1012 Continuous Infusions: PRN Meds: ??? acetaminophen ??? acetaminophen ??? aluminum-magnesium hydroxide-simethicone ??? dextrose ??? diclofenac ??? fluconazole ??? naloxone ??? ondansetron Or ??? ondansetron PF ??? oxyCODONE Assessment and Plan Orthostatic hypotension -check daily -discussed w Dr. Baron, qamar cardizem -continue bb -cortisol level 0.8 06/18 [...] 95 BPM ATRIAL RATE (MCT) 95 BPM NE Interval 134 ms QRS-INTERVAL (MSEC) 90 ms QT Interval 366 ms QTC Interval 459 ms R AXIS (MCT) -20 degrees T Wave [place] 23 degrees Sawyer Diagnosis Sinus rhythm with occasional premature ventricular complexes RSR' or QR pattern in V1 suggests right ventricular conduction delay Borderline ECG When compared with ECG of 14-JUN-2022 08:17, premature ventricular complexes are now present T wave amplitude has decreased in Anterior leads Confirmed by MD Tod, Ali ([id number]), development editor SUSAN GAONA ([id number]) on 06/18/2022 2:42:55 [...] 81 mg Oral Daily 81 mg at 06/18/2250 ??? atorvastatin 80 mg Oral Once ??? cetirizine 10 mg Oral Daily 10 mg at 06/18/22899 ??? cholecalciferol 1,000 Units Oral Daily 1,000 Units at 06/18/22849 ??? clopidogreL 75 mg Oral Daily 75 mg at 06/18/22850 ??? docusate sodium 100 mg Oral BID [...] 25 mg Oral BID 25 mg at 06/18/22849 ??? multivitamin 1 tablet Oral Daily 1 [...] Baron MD - 06/18/2022 3:58 PM EDT [facility] Basic Information: Name Chen Merritt, 1940, 81 y.o., female Primary Operations Specialist: Dr. Grazyna Dowell PCP: Mayank Angel MD [...] (25 mg total) before bedtime. Yes Historical ProviderMD fshkifpe-jdn-JD-lycopen-lutein (Centrum Silver) 0.4 mg-300 mcg- 250 mcg Tab Take 1 tablet by mouth daily . Yes Historical Provider, pantoprazole (PROTONIX) 40 MG tablet Take 1 tablet (40 mg total) by mouth in the morning. Yes Historical ProviderMD pregabalin (LYRICA) 50 MG capsule Take 3 capsules (150 mg total) by mouth nightly. 09/13/21 Yes Historical ProviderMD dilTIAZem (CARDIZEM CD) 180 MG 24 hr capsule Take 1 capsule (180 mg total) by mouth in the morning.Historical ProviderMD HYDROcodone-acetaminophen (NORCO 7.5-325) 7.5-325 mg per tablet Take 1 tablet by mouth 2 (two) times daily as needed for Pain. Max Daily Amount: 2 tablets Historical ProviderMD losartan (COZAAR) 25 MG tablet Take 1 tablet (25 mg total) by mouth in the morning and 1 tablet (25mg total) before bedtime. Historical ProviderMD Past Medical History: Pt has a past medical history of Arthritis, Coronary artery disease, Hyperlipidemia, Hypertension, Lumbar spondylolysis, DC (myocardial infarction) (HCC), Osteopenia, Psoriatic arthritis (HCC), [...] output data in the 24 hours ending 06/18/221557 Net I&O this admission: Net IO Since Admission: 610.25 mL [06/18/228] Physical Exam General: Alert and oriented, No [...] of hands and feet. Integumentary: Warm, Dry, [place]. Neurologic: Alert, Oriented. Psychiatric: Cooperative, Appropriate mood [...] needed. Discussed with Yady Rajan PA-C from [facility]. 06/14/2022 Current medical therapy appropriate Refer to cardiac rehab Ambulate with PT per surgical recommendations We will plan for outpatient follow-up in 4 weeks 06/13/2022 Urgent cardiac catheterization. I spoke with Neurosurgeon Dr. Odonnell about the situation. We are clear to use anti-platelets and anti-coag as needed. I spoke with Dr. Porras in the laundry laborer regarding the case. * Omayra Rose, PT [...] Goals Goals Supine to/from sit:??supervision Sit to/from stand:??Tyson, Rwx (met 4.30.23) Gait:??50ft, Rwx, Tyson Transfer:??Tyson, Rwx? [...] Electronically signed by Omayra Rose PT - 06/18/2022 - 4:22 PM EDT * Dorinda Graham RN - 06/18/2022 12:59 PM EDT Discharge Plan Progress Note CM following for str placement. CM spoke with Cynthia with [facility] this date, Cynthia following. Dorinda Graham RN * Claus Mallory Channing, PT - 06/17/2022 3:45 PM EDT Images from the original note were not included. Inpatient Physical Therapy Treatment Patient Name: Chen Merritt Date of : 1940 Date of Treatment: 06/17/22 Start Time 1510 Stop Time 151 Session Duration 17 minutes General Visit type: Treatment Approved by: Nurse Janay Patient Disposition Upon Entry: Supine in bed, [...] patient's discharge summary. Electronically signed by Claus Snell, PT - 06/17/2022 - 3:46 PM EDT [...] Units Oral Daily 1,000 Units at 06/17/22 0819 ??? clopidogreL 75 mg Oral Daily 75 mg at 06/17/22 0820 ??? dilTIAZem 180 mg Oral Daily 180 mg at 06/17/22 0819 ??? docusate sodium 100 mg Oral BID 100 mg at 06/17/22 0817 ??? enoxaparin 40 mg Subcutaneous Q24H CHRIS 40 mg at 06/17/22 1017 ??? fluticasone propionate 2 spray Each Nare BID 2 spray at 06/17/22 08 ??? folic acid 1,000 mcg Oral Daily 1,000 mcg at 06/17/22 0821 ??? metoprolol tartrate 25 mg Oral BID 25 mg at 06/17/22 0817 ??? multivitamin 1 tablet Oral Daily 1 tablet at 06/17/22 08 ??? pantoprazole 40 mg Oral Daily 40 mg at 06/17/22 0820 ??? polyethylene glycol 3350 17 g Oral Daily 17 g at 06/16/22 0903 ??? pregabalin 150 mg Oral Every Night 150 mg at 06/16/229 ??? Saccharomyces boulardii 250 mg Oral BID [...] #Code Status: full #Medical decision maker: Daughter, lebron #Dispo: Follow heart rate blood pressure and decrease dose. Cardiology consult in AM. Optimize electrolytes. I updated the daughter 06/16. Not medically ready for discharge #MDM: High Signed: SIMIN UMANZOR APRN 06/17/2022 UPDATE: 1629: paged by RN patient c/o heartburn epigastric discomfort. I ordered EKG, Tn with repeat in 3h, alicia. UPDATE 1958: late night chart check --- checked Tn which resulted at 1942,, elevated at >700. This was NOT called to this provider or residential installer. I personally called residential installer and he is checking on the patient and notifying cottage parent and will f/up pending Tn. Cosigned by [...] 1 tablet Oral Daily 1 tablet at 06/16/22903 ??? pantoprazole 40 mg Oral Daily 40 mg at 06/16/22903 ??? polyethylene glycol 3350 17 g Oral Daily 17 g at 06/16/22902 ??? pregabalin 150 mg Oral Every Night 150 mg at 06/15/22 2253 ??? Saccharomyces boulardii 250 mg Oral BID 250 mg at 06/16/22903 Continuous Infusions: PRN Meds: ??? acetaminophen ??? [...] Light Yellow Clarity, UA Clear Clear Specific [place], UA 1.012 1.005 - 1.030 pH, UA [...] JOHN Mallory Date of 1940 Patient # [id number] Medical Record # Physician ARSLAN PORRAS DO [...] with shockwave balloon 3.5 and treated with Strong 3.5 x 15 drug-eluting stent which was postdilated with a 4.0 noncompliant balloon atmospheres 9. Iliofemoral angiography with Angio-Seal to the right common femoral artery Indications Non-ST elevation DC Procedure Patient was brought to the cardiac Blood Bank Technologist on arrival the patient was hemodynamically stable. The right groin was draped and prepped in sterile fashion 2% lidocaine was used anesthetize groin ultrasound interrogation was performed. Common femoral artery is normal. Bifurcational. Pulsatile flow was noted. Under ultrasound guidance access obtained with a 6 Kazakh sheath introduced accordingly. Using a standard set [...] Decision was to proceed with stenting. An Strong 3.5 x 15 drug-eluting stent was introduced [...] was performed. Angio-Seal was successfully deployed 6 Kazakh to the right common femoral artery. Of [...] of the lesion. Recommendations Conclusions Non-ST elevation DC as described above Occlusion of all 3 [...] a max pressure of: 15 basilio. - Kiran [place] RX 3.5x15 Stent. 1 inflation(s) to a [...] used for:Was not used. Contrast Material - [id number] ml Fluoroscopy Time: Total: 18:24 minutes. Fluoroscopy [...] bedside, patient now agreeable to rehab at [facility] (hx of previous stay). CM will send [...] Light Yellow Clarity, UA Clear Clear Specific [place], UA 1.012 1.005 - 1.030 pH, UA [...] at baseline per daughter. Discussed rehab at [facility] and she is agreeable NSOC: SNF When: TBD Signed: ROBBY MACHUCA PA-C 06/15/2022 Cosigned by Amaris Jones MD at 06/18/2022 6:40 AM EDT * Miri Robertson, OTR/L - 06/15/2022 11:38 AM EDT Images from the original note were not included. Inpatient Occupational Therapy Treatment Note Patient Name: Chen Merritt Date of : 1940 Date of Treatment: 06/15/22 Start Time: 1112 Stop Time: 1138 Session Duration: 26 minutes This patient is [...] Hyperlipidemia ??? Hypertension ??? Lumbar spondylolysis ??? DC (myocardial infarction) (HCC) ??? Osteopenia ??? Psoriatic [...] WITH ZIEHM; Surgeon: Edith Odonnell MD; Location: [facility]; Service: Neurosurgery; Laterality: N/A; [place] 0830. 3 HRS (R). PASS. AIRO. PRE CERT STARTED, ??? open heart 2008 4 bypass General Visit type: Treatment Approved by: Nurse Janay Patient disposition upon entry: Supine in bed, Call light/pull cord in reach, All needs met and within reach, Nursing aware/notified, Head of bed >30 degrees, Side rails up, Visitor/family present Co-treated by: PT Precautions Weightbearing status: No restrictions Precautions: Spinal precautions Isolation precautions: Standard Subjective Subjective: Pt agreeable Pain No-patient has no complaints of pain Cognition Cognition: Overall cognitive status: WF Objective Vitals Pre-intervention vitals Blood pressure: 126/80 [...] lower body dressing with modified independence using cook helper pastry,long handled shoehorn, sock aid. Bed mobility: Pt [...] Hyperlipidemia ??? Hypertension ??? Lumbar spondylolysis ??? DC (myocardial infarction) (HCC) ??? Osteopenia ??? Psoriatic [...] dizzy and tachycardic. Range of Motion Assessment WFL for all extremities Sensation Bilateral LE neuropathy [...] 83 BPM ATRIAL RATE (MCT) 83 BPM NE Interval 156 ms QRS-INTERVAL (MSEC) 94 ms QT Interval 410 ms QTC Interval 481 ms P [place] 50 degrees R AXIS (MCT) -3 degrees T Wave [place] 62 degrees Sawyer Diagnosis Normal sinus rhythm Incomplete right bundle branch block Nonspecific ST abnormality Abnormal ECG When compared with ECG of 13-JUN-2022 14:26, Incomplete right bundle branch block is now present CARDIAC CATH - LEFT HEART CATH W/ POSSIBLE INTERVENTION Cardiac Diagnostic + PCI Report Demographics Patient Name JOHN Mallory Date of 1940 Patient # [id number] Medical Record # Physician ARSLAN PORRAS DO [...] with shockwave balloon 3.5 and treated with Strong 3.5 x 15 drug-eluting stent which was postdilated with a 4.0 noncompliant balloon atmospheres 9. Iliofemoral angiography with Angio-Seal to the right common femoral artery Indications Non-ST elevation DC Procedure Patient was brought to the cardiac Blood Bank Technologist on arrival the patient was hemodynamically stable. The right groin was draped and prepped in sterile fashion 2% lidocaine was used anesthetize groin ultrasound interrogation was performed. Common femoral artery is normal. Bifurcational. Pulsatile flow was noted. Under ultrasound guidance access obtained with a 6 Kazakh sheath introduced accordingly. Using a standard set [...] was performed. Angio-Seal was successfully deployed 6 [place] to the right common femoral artery. Of [...] of the lesion. Recommendations Conclusions Non-ST elevation DC as described above Occlusion of all 3 [...] a max pressure of: 15 basilio. - Strong [place] RX 3.5x15 Stent. 1 inflation(s) to a [...] used for:Was not used. Contrast Material - [id number] ml Fluoroscopy Time: Total: 18:24 minutes. Fluoroscopy [...] by Dr. Carlos Alberto Hu. Transcribed by aMrisel Sandoval PA-C. Assessment POD 2 left L5-S1 facetectomy, foraminotomy, and discectomy Cardiology following for NSTEMI Plan PT/OT. I discussed with patient and family member option of inpatient rehab vs home health at discharge. Cosigned by Edith Odonnell MD at 06/19/2022 11:17 AM EDT * Miri Ortiz Ailyn, OTR/L - 06/14/2022 2:36 PM EDT Images from [...] Hyperlipidemia ??? Hypertension ??? Lumbar spondylolysis ??? DC (myocardial infarction) (HCC) ??? Osteopenia ??? Psoriatic arthritis (HCC) ??? Psoriatic arthritis (HCC) Past Surgical History: Procedure Laterality Date ??? CHOLECYSTECTOMY ??? HYSTERECTOMY ??? LAMINECTOMY,LUMBAR Left 06/12/2022 Procedure: (LT L5-S1 FACETECTOMY AND NEUROFORAMINOTOMY; Surgeon: Edith Odonnell MD; Location: [facility]; Service: Neurosurgery; Laterality: Left; [place] 0800,1.5HRS(R) ??? LAMINECTOMY,LUMBAR W/FUSION N/A 12/14/2021 Procedure: L3-5, L5-S1 FUSION AND DECOMPRESSION AUGMENTATION WITH ZIEHM; Surgeon: Edith Odonnell MD; Location: [facility]; Service: Neurosurgery; Laterality: N/A; [place] 0830. 3 [...] handheld support; limited postural sway Outcome Measures [facility] Daily Living Functional Assessment How much [...] teeth? 3 Eating meals? 4 Raw Score 1624 Total Score 54% impaired 1=Total/Unable (Total assist/Dependent) [...] no complaints. Assessment Assessment Pt and RN okay'd OT evaluation at this time. Pt tolerated [...] lower body dressing with modified independence using cook helper pastry,long handled shoehorn, sock aid. Bed mobility: Pt [...] the patient's discharge summary. Electronically signed by Miri Robertson OTR/Tricia - 06/14/2022 - 3:30 PM EDT * Dorinda Graham RN - 06/14/2022 2:23 PM EDT 06/14/22 1422 Home Environment Type of Residence Private residence Living Arrangements Children Support Systems Children Affect Behavior Appropriate Prior/Regular Transportation Family ADL Assessment Current Home Care Services None Assistive Devices Cane;Walker Transition Needs Home or Post Acute Services In home services;Post acute facilities (Rehab/SNF/etc) Patient transferred to [facility] from . 06/12- neurosurgery>>[employer] MANAGER on 06/13 for NSTEMI, urgently taken to laundry laborer +stent. CM consult for snf placement. CM met with patient and family at bedside to explain CM role and discuss DCP. PCP- Dr Angel ([place]). Patient lives at home with daughter. DME- [...] Time 167 (H) 74 - 137 sec Jewel Stringer [id number] POC ACTIVATED CLOTTING TIME Status: Abnormal Collection Time: 06/13/22 11:48 AM Result Value Ref Range Activated Clotting Time 239 (H) 74 - 137 sec Jewel Stringer [id number] ECG 12 lead Status: None (In process) Collection Time: 06/13/22 2:26 PM Result Value Ref Range VENTRICULAR RATE EKG/MIN 78 BPM ATRIAL RATE (MCT) 78 BPM NE Interval 158 ms QRS-INTERVAL (MSEC) 90 ms QT Interval 388 ms QTC Interval 442 ms P [place] 58 degrees R AXIS (MCT) -19 degrees T Wave [place] 65 degrees Sawyer Diagnosis Age and gender specific ECG analysis Normal sinus rhythm ST abnormality, possible digitalis effect Abnormal ECG When compared with ECG of 24-MAR-2023 06:18, Vent. rate has decreased BY 61 [...] 83 BPM ATRIAL RATE (MCT) 83 BPM NE Interval 156 ms QRS-INTERVAL (MSEC) 94 ms QT Interval 410 ms QTC Interval 481 ms P [place] 50 degrees R AXIS (MCT) -3 degrees T Wave [place] 62 degrees Sawyer Diagnosis Normal sinus rhythm Incomplete right bundle [...] 06/13, pt doing well 1. Metabolic Encephalopathy: 2/2 acute UTI, complicated [...] Dowell MD - 06/14/2022 8:54 AM EDT [facility] Basic Information: Name Chen Merritt, 1940, 81 y.o., female Primary Operations Specialist: Dr. Grazyna Dowell PCP: Mayank Angel MD [...] mg total) before bedtime. Yes Historical Provider, dybvrfgg-plr-VW-lycopen-lutein (Centrum Silver) 0.4 mg-300 mcg- 250 mcg [...] Coronary artery disease, Hyperlipidemia, Hypertension, Lumbar spondylolysis, DC (myocardial infarction) (HCC), Osteopenia, Psoriatic arthritis (HCC), [...] of hands and feet. Integumentary: Warm, Dry, [place]. Neurologic: Alert, Oriented. Psychiatric: Cooperative, Appropriate mood [...] JOHN Mallory Date of 1940 Patient # [id number] Medical Record # Physician ARSLAN PORRAS DO [...] with shockwave balloon 3.5 and treated with Strong 3.5 x 15 drug-eluting stent which was postdilated with a 4.0 noncompliant balloon atmospheres 9. Iliofemoral angiography with Angio-Seal to the right common femoral artery Indications Non-ST elevation DC Procedure Patient was brought to the cardiac Blood Bank Technologist on arrival the patient was hemodynamically stable. The right groin was draped and prepped in sterile fashion 2% lidocaine was used anesthetize groin ultrasound interrogation was performed. Common femoral artery is normal. Bifurcational. Pulsatile flow was noted. Under ultrasound guidance access obtained with a 6 Kazakh sheath introduced accordingly. Using a standard set [...] was performed. Angio-Seal was successfully deployed 6 Kazakh to the right common femoral artery. Of [...] of the lesion. Recommendations Conclusions Non-ST elevation DC as described above Occlusion of all 3 [...] a max pressure of: 15 basilio. - Kiran [place] RX 3.5x15 Stent. 1 inflation(s) to a [...] used for:Was not used. Contrast Material - [id number] ml Fluoroscopy Time: Total: 18:24 minutes. Fluoroscopy [...] coronary artery bypass grafting x4 (2009) * Hand and feet swelling: I suspect [...] I spoke with Dr. Porras in the laundry laborer regarding the case. * Denae Barnes LCSW [...] need a reorder. Electronically signed by Mela Yang PT - 06/13/2022 - 11:33 AM EDT * ADILENE Landry/Tricia - 06/13/2022 11:32 AM EDT Images from the original note were not included. Inpatient Occupational Therapy Attempt to Treat Patient Name: Chen Merritt Birthday: 1940 Date of Attempt: 06/13/2022 Pt on HOLD at this time as pt leaving floor for heart cath and will likely not be returning to floor per SHIRLEY Gaffney. OT will check back as schedule allows. Electronically signed by Joel Gresham OTR/L - 06/13/2022 - 1:07 PM EDT * Robby Machuca PA-C - 06/13/2022 10:58 AM EDT Images from the original note were not included. [facility] Medicine Progress Note Chen Merritt is a [...] Range POC-GLUCOSE 86 70 - 110 mg/dL Jewel Stringer [id number] ECG 12 lead Status: None (In process) Collection Time: 06/13/22 4:21 AM Result Value Ref Range VENTRICULAR RATE EKG/MIN 96 BPM ATRIAL RATE (MCT) 96 BPM NE Interval 174 ms QRS-INTERVAL (MSEC) 98 ms QT Interval 352 ms QTC Interval 444 ms P [place] 37 degrees R AXIS (MCT) -44 degrees T Wave [place] 103 degrees Sawyer Diagnosis Normal sinus rhythm Left axis deviation Incomplete right bundle branch block Inferior infarct (cited on or before 10-JUN-2022) Anterolateral infarct (cited on or before 10-JUN-2022) ACUTE DC / STEMI Consider right ventricular involvement in [...] Range POC-GLUCOSE 86 70 - 110 mg/dL Jewel Stringer [id number] ECG 12 lead Status: None (In process) Collection Time: 06/13/22 4:21 AM Result Value Ref Range VENTRICULAR RATE EKG/MIN 96 BPM ATRIAL RATE (MCT) 96 BPM NE Interval 174 ms QRS-INTERVAL (MSEC) 98 ms QT Interval 352 ms QTC Interval 444 ms P [place] 37 degrees R AXIS (MCT) -44 degrees T Wave [place] 103 degrees Sawyer Diagnosis Normal sinus rhythm Left axis deviation Incomplete right bundle branch block Inferior infarct (cited on or before 10-JUN-2022) Anterolateral infarct (cited on or before 10-JUN-2022) ACUTE DC / STEMI Consider right ventricular involvement in [...] from the original note were not included. [facility] Medicine Progress Note Chen Merritt is a [...] Range POC-GLUCOSE 86 70 - 110 mg/dL Jewel Stringer [id number] Assessment and Plan: 1. Metabolic Encephalopathy: 2/2 [...] rehab placement or home health. * Alma Luong PT - 06/11/2022 2:21 PM EDTSumgonzalo: PT screen Images from the original note were not included. Inpatient Physical Therapy Therapy Screen Patient Name: Chen Merritt Birthday: 1940 Date of PT Screen: 06/11/2022 Pt scheduled for surgery tomorrow for left L5-S1 hemilaminectomy and discectomy. Will sign off and await new order post-op to evaluate pt. Electronically signed by Alam Luong, PT - 06/11/2022 - 2:21 PM EDT * Robby Machuca PA-C - 06/11/2022 10:31 AM EDT Images from the original note were not included. [facility] Medicine Progress Note hCen Merritt is a 81 y.o. female patient [...] this encounter H&P Notes * Annette Spencer, MEDICAL DOCTOR - 06/10/2022 8:38 AM EDT HPI History [...] at home, taking a half tab of [place] due to side effects (morphine allergy is [...] 1 TABLET BY MOUTH TWICE DAILY ??? vkexkcop-hqr-NN-lycopen-lutein (Centrum Silver) 0.4 mg-300 mcg- 250 mcg [...] RATE (MCT) 06/10/2022 77 BPM Incomplete ??? NE Interval 06/10/2022 167 ms Incomplete ??? QRS-INTERVAL (MSEC) 06/10/2022 100 ms Incomplete ??? QT Interval 06/10/2022 371 ms Incomplete ??? QTC Interval 06/10/2022 420 ms Incomplete ??? P [place] 06/10/2022 36 degrees Incomplete ??? R AXIS (MCT) 06/10/2022 3 degrees Incomplete ??? T Wave [place] 06/10/2022 68 degrees Incomplete ??? Sawyer Diagnosis 06/10/2022 Incomplete Value:Normal sinus rhythm RSR' or QR pattern in V1 suggests right ventricular conduction delay Cannot rule out Anterior infarct (cited on or before 08-DEC-2021) Abnormal ECG When compared with ECG of 08-DEC-2021 09:43, No significant change was found ??? Color, UA 06/10/2022 Light Yellow Final ??? Clarity, UA 06/10/2022 Turbid (A) Clear Final ??? Specific [place], UA 06/10/2022 1.012 1.005 - 1.030 Final [...] RATE (MCT) 06/10/2022 67 BPM Incomplete ??? NE Interval 06/10/2022 175 ms Incomplete ??? QRS-INTERVAL (MSEC) 06/10/2022 92 ms Incomplete ??? QT Interval 06/10/2022 392 ms Incomplete ??? QTC Interval 06/10/2022 414 ms Incomplete ??? P [place] 06/10/2022 29 degrees Incomplete ??? R AXIS (MCT) 06/10/2022 -2 degrees Incomplete ??? T Wave [place] 06/10/2022 56 degrees Incomplete ??? Sawyer Diagnosis 06/10/2022 Incomplete Value:Normal sinus rhythm Incomplete [...] size is mildly enlarged. Previously seen left [place]-Fer catheter has been removed. There is minimal [...] in this encounter Consult Notes * Kam Singh, MARY LOU - 06/20/2022 3:[address] ADIME [...] Hyperlipidemia ??? Hypertension ??? Lumbar spondylolysis ??? DC (myocardial infarction) (HCC) ??? Osteopenia ??? Psoriatic [...] STARTED, ??? open heart 2009 4 bypass Nutrition Monitoring and Goals: 1. Continue a regular diet. RD to add ONS prn. Goal: intakes >75% Nutrition Risk Level: No Risk KAM SINGH RDN, LD * Grazyna Dowell MD - 06/13/2022 9:05 AM EDTAssociated Order(s): FS_MODEL_IP IP CONSULT TO CARDIOLOGY [facility] - Consult Note Basic Information: Name Chen Merritt, 1940, 81 y.o., female Primary Operations Specialist: Dr. Grazyna Dowell PCP: Mayank Angel MD Admit Date 06/10/2022 Patient Location [phone] Chief Complaint/Consult reason: Chest pain History of Present Illness: The patient is an exceptionally pleasant 81-year-old female with a known history of atheroscleroticcardiovascular disease with history of coronary bypass grafting in 2008, paroxysmal atrial fibrillation, hypertension, dyslipidemia, venous insufficiency, and chronic back pain who presented to [facility] with complaints of left lower [...] mg total) before bedtime. Yes Historical Provider, uuufqryf-lmo-PA-lycopen-lutein (Centrum Silver) 0.4 mg-300 mcg- 250 mcg [...] Coronary artery disease, Hyperlipidemia, Hypertension, Lumbar spondylolysis, DC (myocardial infarction) (HCC), Osteopenia, Psoriatic arthritis (HCC), [...] of motion, Normal strength. Integumentary: Warm, Dry, [place]. Neurologic: Alert, Oriented. Psychiatric: Cooperative, Appropriate mood [...] I spoke with Dr. Porras in the laundry laborer regarding the case. * Taya Ramos PA-C [...] (25 mg total) before bedtime. 06/09/2022 ??? zdyvcrhq-thl-DC-lycopen-lutein (Centrum Silver) 0.4 mg-300 mcg- 250 mcg [...] WITH ZIEHM; Surgeon: Edith Odonnell MD; Location: [facility]; Service: Neurosurgery; Laterality: N/A; [place] 0830. 3 [...] Group BP 06/10/22 0025 (!) 153/75 Pulse 06/10/2215 82 Resp 06/10/2215 16 Temp -- Temp src -- SpO2 06/10/2215 95 % Weight 06/10/2215 68 kg (150 lb) Height 06/10/2215 1.6 m (5' 3 ) Head Circumference -- Peak Flow -- Pain Score 06/10/2215 Zero Pain Loc -- Pain Edu? -- [...] Yellow Clarity, UA Turbid (A) Clear Specific [place], UA 1.012 1.005 - 1.030 pH, UA [...] 77 BPM ATRIAL RATE (MCT) 77 BPM NE Interval 167 ms QRS-INTERVAL (MSEC) 100 ms QT Interval 371 ms QTC Interval 420 ms P [place] 36 degrees R AXIS (MCT) 3 degrees T Wave [place] 68 degrees Sawyer Diagnosis Normal sinus rhythm RSR' or QR pattern in V1 suggests right ventricular conduction delay Cannot rule out Anterior infarct (cited on or before 08-DEC-2021) Abnormal ECG When compared with ECG of 08-DEC-2021 09:43, No significant change was found ECG 12 lead Result Value Ref Range VENTRICULAR RATE EKG/MIN 67 BPM ATRIAL RATE (MCT) 67 BPM NE Interval 175 ms QRS-INTERVAL (MSEC) 92 ms QT Interval 392 ms QTC Interval 414 ms P [place] 29 degrees R AXIS (MCT) -2 degrees T Wave [place] 56 degrees Sawyer Diagnosis Normal sinus rhythm Incomplete right bundle branch block Cannot rule out Anterior infarct (cited on or before 08-DEC-2021) Inferior infarct , age undetermined Abnormal ECG When compared with ECG of 10-JUN-2022 00:35, Inferior infarct is now present CT spine lumbar without IV contrast Result Date: 06/10/2022 Name: CHEN MRERITT : 1940 [address] LUMBAR SPINE HISTORY: Low [...] reviewed, interpreted, and dictated by Carlos Alberto uH MD CT brain without IV contrast Result [...] size is mildly enlarged. Previously seen left [place]-Fer catheter has been removed. There isminimal atelectasis [...] mg-300 mcg- 250 mcg Tab Generic drug: ejxcfleq-dis-AL-lycopen-lutein cetirizine 10 MG tablet Commonly known as: [...] traMADoL 50 mg tablet Commonly known as: CHAKAM Rex Pelaez MD 06/10/22 0858 * Jewel Velazquez - 06/10/2022 12:25 AM EDT Pt to ED via [facility] complaining of weakness and mobility issues related to 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 Pt has upcoming surgery and is recently restricted to bed due to pain and weakness. * Mahnaz Terry - 06/10/2022 12:22 AM EDT Bed: [facility] Expected date: Expected time: Means of arrival: Comments: Ricardo Terry 06/10/22 0022 documented in this encounter Miscellaneous Notes * Nursing Progress Notes - Dyana Salgado RN - 06/28/2022 4:21 PM EDT Removed IV and tele, report called to [facility] * Plan of Care - Dyana Salgado [...] chest pain; s/p heart cath 06/13, informed [facility] cardio. Pt not in pain when [...] AM. * Plan of Care - Naomy Arias RN - 06/16/2022 1:13 AM EDT Problem: [...] increased troponin. She was taken to the laundry laborer that day with the following results: Successful balloon angioplasty and stenting of subtotal occlusion of proximal circumflex heavily calcified lesion 99% reduced to 10% predilated with shockwave balloon 3.5 and treated with Strong 3.5 x 15 drug-eluting stent which was postdilated with a 4.0 noncompliant balloon atmospheres She has had episodes of orthostatic hypotension limiting her work with PT. Working to adjust meds so that her orthostasis improve. Fall risk with back surgery and need to ensure she can participate with PT. Partner ordered cortisol. Cosyntropin workup ordered and pending. Per NSGY she can d/c to [facility], need CARD to sign off. Per CM no pre-cert needed so will be a quick transfer to [facility] when ready * Plan of Care - [...] debulk the nerve we could advance the [place] instrument out along the nerve root. We [...] appropriate transfer methods Recent Flowsheet Documentation Taken 06/11/2022899 by Nathaly Adler RN Level of Assistance: [...] preop, patient denied having dentures. During intubation, assignment desk assistant and ADJUNCT PROFESSOR noted presence of intact and undamaged dental [...] - 146 meq/L 06/28/2022 6:[address] [facility] Potassium 4.1 3.5 - 5.1 meq/L 06/28/2022 6:[address] [facility] Chloride 105 102 - 112 meq/L 06/28/2022 6:[address] [facility] CO2 20(L) 21 - 32 meq/L 06/28/2022 6:[address] [facility] Calcium 9.6 8.4 - 10.1 mg/dL 06/28/2022 6:[address] [facility] Glucose 92 74 - 106 mg/dL 06/28/2022 6:[address] [facility] BUN 17 7 - 22 mg/dL 06/28/2022 6:[address] [facility] Creatinine 0.74 0.55 - 1.02 mg/dL 06/28/2022 6:[address] [facility] BUN/Creatinine 23(H) 8 - 20 06/28/2022 6:[address] [facility] Albumin 2.3(L) 3.4 - 5.0 g/dL 06/28/2022 6:[address] [facility] Alkaline Phosphatase 65 27 - 136 U/L 06/28/2022 6:[address] [facility] ALT 28 13 - 56 U/L 06/28/2022 6:[address] [facility] AST 38(H) 5 - 37 U/L 06/28/2022 6:[address] [facility] Total Bilirubin 1.0 0.2 - 1.2 mg/dL 06/28/2022 6:[address] [facility] Protein, Total 6.2(L) 6.4 - 8.2 gm/dL 06/28/2022 6:[address] [facility] Anion Gap 13 9 - 20 06/28/2022 6:[address] [facility] A/G Ratio 0.6(L) 1.1 - 2.5 06/28/2022 6:[address] [facility] Globulin 3.9 1.5 - 4.5 g/dL 06/28/2022 6:[address] [facility] Osmolality Calc 269.4 6:[address] [facility] eGFR (mL/min/1.73m2) >60 >=60 mL/min/1.7 3m2 06/28/2022 6:[address] [facility] Comment:ESTIMATED GFR IS NOT ACCURATE CREATININE CLEARANCE IN PREDICTING GLOMERULAR FILTRATION RATE. ESTIMATED GFR IS NOT APPLICABLE FOR DIALYSIS PATIENTS. Blood Venipuncture / Unknown 06/28/2022 5:26 AM EDT 06/28/2022 5:44 AM EDT [facility] - 06/28/2022 6:21 AM EDT As [...] setting for acute kidney injury or failure. Gustabo Galarza MD LAB BLOOD ORDERABLES Final Result [facility] [address] [phone] * (ABNORMAL) CBC with automated diff (06/28/2022 5:26 AM EDT) WBC 5.4 4.5 - 10.5 K/??L 06/28/2022 6:[address] [facility] RBC 3.64(L) 3.93 - 5.22 M/??L 06/28/2022 6:[address] [facility] Hemoglobin 11.7 11.2 - 15.7 GM/DL 06/28/2022 6:[address] [facility] Hematocrit 35.0 34.1 - 44.9 % 06/28/2022 6:[address] [facility] MCV 96(H) 79 - 95 fL 06/28/2022 6:[address] [facility] MCH 32.1 25.6 - 32.2 pg 06/28/2022 6:[address] [facility] MCHC 33.4 32.2 - 36.5 GM/DL 06/28/2022 6:[address] [facility] RDW 15.1(H) 11.7 - 14.9 % 06/28/2022 6:[address] [facility] Platelets 311 163 - 369 K/CU MM 06/28/2022 6:[address] [facility] MPV 10.4 9.4 - 12.4 fL 06/28/2022 6:[address] [facility] % Neutros 47 34 - 71 % 06/28/2022 6:[address] [facility] % Lymphs 32 19 - 53 % 06/28/2022 6:[address] [facility] % Monos 13(H) 3 - 9 % 06/28/2022 6:[address] [facility] % Eos 7(H) 0 - 1 % 06/28/2022 6:[address] [facility] % Baso 1 0 - 2 % 06/28/2022 6:[address] [facility] NRBC Absolute 0.00 0 - 0.12 K/ul 06/28/2022 6:[address] [facility] # Neutros 2.55 1.56 - 6.13 K/??L 06/28/2022 6:[address] [facility] # Lymphs 1.70 1.00 - 3.50 K/??L 06/28/2022 6:[address] [facility] # Monos 0.69 0.16 - 1.00 K/??L 06/28/2022 6:[address] [facility] # Eos 0.38 0.00 - 0.80 K/??L 06/28/2022 6:[address] [facility] # Baso 0.04 0.00 - 0.20 K/??L 06/28/2022 6:[address] [facility] Immature Granulocytes-Re lative 0.40 0.00 - 0.60 % 06/28/2022 6:[address] [facility] # IG 0.02 0.00 - 0.05 K/uL 06/28/2022 6:[address] [facility] Blood Venipuncture / Unknown 06/28/2022 5:26 AM EDT 06/28/2022 5:[address] [facility] - 06/28/2022 6:01 AM EDT When [...] Galarza MD LAB BLOOD ORDERABLES Final Result [facility] [address] [phone] * (ABNORMAL) Comprehensive metabolic panel (06/27/2022 8:56 AM EDT) Sodium 137 136 - 146 meq/L 06/27/2022 9:[address] [facility] Potassium 3.7 3.5 - 5.1 meq/L 06/27/2022 9:[address] [facility] Chloride 105 102 - 112 meq/L 06/27/2022 9:[address] [facility] CO2 20(L) 21 - 32 meq/L 06/27/2022 9:[address] [facility] Calcium 9.8 8.4 - 10.1 mg/dL 06/27/2022 9:[address] [facility] Glucose 140(H) 74 - 106 mg/dL 06/27/2022 9:[address] [facility] BUN 15 7 - 22 mg/dL 06/27/2022 9:[address] [facility] Creatinine 0.66 0.55 - 1.02 mg/dL 06/27/2022 9:[address] [facility] BUN/Creatinine 23(H) 8 - 20 06/27/2022 9:[address] [facility] Albumin 2.6(L) 3.4 - 5.0 g/dL 06/27/2022 9:[address] [facility] Alkaline Phosphatase 68 27 - 136 U/L 06/27/2022 9:[address] [facility] ALT 26 13 - 56 U/L 06/27/2022 9:[address] [facility] AST 26 5 - 37 U/L 06/27/2022 9:[address] [facility] Total Bilirubin 0.7 0.2 - 1.2 mg/dL 06/27/2022 9:[address] [facility] Protein, Total 6.3(L) 6.4 - 8.2 gm/dL 06/27/2022 9:[address] [facility] Anion Gap 16 9 - 20 06/27/2022 9:[address] [facility] A/G Ratio 0.7(L) 1.1 - 2.5 06/27/2022 9:[address] [facility] Globulin 3.7 1.5 - 4.5 g/dL 06/27/2022 9:[address] [facility] Osmolality Calc 277.0 9:[address] [facility] eGFR (mL/min/1.73m2) >60 >=60 mL/min/1.7 3m2 06/27/2022 9:[address] [facility] Comment:ESTIMATED GFR IS NOT ACCURATE CREATININE CLEARANCE IN PREDICTING GLOMERULAR FILTRATION RATE. ESTIMATED GFR IS NOT APPLICABLE FOR DIALYSIS PATIENTS. Blood Venipuncture / Unknown 06/27/2022 8:56 AM EDT 06/27/2022 9:[address] [facility] - 06/27/2022 9:27 AM EDT As of 05-04-2022 date, reported [...] setting for acute kidney injury or failure. Gustabo Galarza MD LAB BLOOD ORDERABLES Final Result [facility] [address] [phone] * (ABNORMAL) CBC with automated diff (06/27/2022 8:56 AM EDT) WBC 7.0 4.5 - 10.5 K/??L 06/27/2022 9:[address] [facility] RBC 3.69(L) 3.93 - 5.22 M/??L 06/27/2022 9:[address] [facility] Hemoglobin 11.8 11.2 - 15.7 GM/DL 06/27/2022 9:[address] [facility] Hematocrit 35.2 34.1 - 44.9 % 06/27/2022 9:[address] [facility] MCV 95 79 - 95 fL 06/27/2022 9:[address] [facility] MCH 32.0 25.6 - 32.2 pg 06/27/2022 9:[address] [facility] MCHC 33.5 32.2 - 36.5 GM/DL 06/27/2022 9:[address] [facility] RDW 15.0(H) 11.7 - 14.9 % 06/27/2022 9:[address] [facility] Platelets 334 163 - 369 K/CU MM 06/27/2022 9:[address] [facility] MPV 10.5 9.4 - 12.4 fL 06/27/2022 9:[address] [facility] % Neutros 61 34 - 71 % 06/27/2022 9:[address] [facility] % Lymphs 26 19 - 53 % 06/27/2022 9:[address] [facility] % Monos 7 3 - 9 % 06/27/2022 9:[address] [facility] % Eos 5(H) 0 - 1 % 06/27/2022 9:[address] [facility] % Baso 1 0 - 2 % 06/27/2022 9:[address] [facility] NRBC Absolute 0.00 0 - 0.12 K/ul 06/27/2022 9:[address] [facility] # Neutros 4.23 1.56 - 6.13 K/??L 06/27/2022 9:[address] [facility] # Lymphs 1.82 1.00 - 3.50 K/??L 06/27/2022 9:[address] [facility] # Monos 0.52 0.16 - 1.00 K/??L 06/27/2022 9:[address] [facility] # Eos 0.35 0.00 - 0.80 K/??L 06/27/2022 9:[address] [facility] # Baso 0.04 0.00 - 0.20 K/??L 06/27/2022 9:[address] [facility] Immature Granulocytes-Re lative 0.30 0.00 - 0.60 % 06/27/2022 9:[address] [facility] # IG 0.02 0.00 - 0.05 K/uL 06/27/2022 9:[address] [facility] Blood Venipuncture / Unknown 06/27/2022 8:56 AM EDT 06/27/2022 9:02 AM EDT [facility] - 06/27/2022 9:12 AM EDT When [...] Galarza MD LAB BLOOD ORDERABLES Final Result [facility] [address] [phone] * (ABNORMAL) Basic Metabolic Panel (06/26/2022 10:56 AM EDT) Sodium 135(L) 136 - 146 meq/L 06/26/2022 12:[address] [facility] Potassium 3.3(L) 3.5 - 5.1 meq/L 06/26/2022 12:[address] [facility] Chloride 104 102 - 112 meq/L 06/26/2022 12:[address] [facility] CO2 20(L) 21 - 32 meq/L 06/26/2022 12:[address] [facility] Anion Gap 14 9 - 20 06/26/2022 12:[address] [facility] BUN 14 7 - 22 mg/dL 06/26/2022 12:[address] [facility] Creatinine 0.75 0.55 - 1.02 mg/dL 06/26/2022 12:[address] [facility] BUN/Creatinine 19 8 - 20 06/26/2022 12:[address] [facility] Glucose 162(H) 74 - 106 mg/dL 06/26/2022 12:[address] [facility] Calcium 9.5 8.4 - 10.1 mg/dL 06/26/2022 12:[address] [facility] Osmolality Calc 274.1 12:[address] [facility] eGFR (mL/min/1.73m2) >60 >=60 mL/min/1.7 3m2 06/26/2022 12:[address] [facility] Comment:eGFR of <60 suggests chronic kidney disease if found over a 3 month period of time. eGFR <15 indicates renal failure. Blood Venipuncture / Unknown 06/26/2022 10:56 AM EDT 06/26/2022 11:51 AM EDT [facility] - 06/26/2022 12:12 PM EDT As [...] for acute kidney injury or failure. us Chino Reardon MD LAB BLOOD ORDERABLES Final R esult Performing Organization Address [facility] [[email or web address]] Co de Phone Number [facility] [address] [phone] * Glucose, Nova Meter (06/24/2022 4:19 PM EDT) [facility] POC-GLUCOSE 93 70 - 110 mg/dL 06/24/2022 4:[address] [facility] Comment: In the event of poor peripheral blood flow, venous or arterial blood should be used due to the potential of erroneous results. Notified Nurse RBV Jewel Stringer [id number] 06/24/2022 4:[address] [facility] Blood WHOLE BLOOD / Unknown 06/24/2022 4:19 PM EDT 06/24/2022 4:20 PM EDT [facility] - 06/24/2022 4:20 PM EDT Jewel Stringer ID is - [id number] us Simin Awad DO POINT OF CARE TEST ORDERABLES Fi nal Result Performing Organization Address [facility] [[email or web address]] Co de Phone Number [facility] [address] [phone] * (ABNORMAL) Glucose, Nova Meter (06/24/2022 10:53 AM EDT) [facility] POC-GLUCOSE 144(H) 70 - 110 mg/dL 06/24/2022 10:[address] [facility] Comment: In the event of poor peripheral blood flow, venous or arterial blood should be used due to the potential of erroneous results. Notified Nurse RBV Jewel Stringer [id number] 06/24/2022 10:[address] [facility] Blood WHOLE BLOOD / Unknown 06/24/2022 10:53 AM EDT 06/24/2022 10:55 AM EDT [facility] - 06/24/2022 10:55 AM EDT Jewel Stringer ID is - [id number] SpinGos DO POINT OF CARE TEST ORDERABLES Fi nal Result Performing Organization Address City/[facility]/ZIP Co de Phone Number [facility] [address] [phone] * Glucose, Nova Meter (06/24/2022 6:03 AM EDT) [facility] POC-GLUCOSE 97 70 - 110 mg/dL 06/24/2022 6:[address] [facility] Comment: In the event of poor peripheral blood flow, venous or arterial blood should be used due to the potential of erroneous results. Notified Nurse RBV Jewel Stringer [id number] 06/24/2022 6:[address] [facility] Blood WHOLE BLOOD / Unknown 06/24/2022 6:03 AM EDT 06/24/2022 6:09 AM EDT [facility] - 06/24/2022 6:09 AM EDT Jewel Stringer ID is - [id number] SpinGos DO POINT OF CARE TEST ORDERABLES Fi nal Result Performing Organization Address City/[facility]/ZIP Co de Phone Number [facility] [address] [phone] * T4, free (06/23/2022 5:39 PM EDT) Free T4 1.21 0.76 - 1.46 ng/dL 06/23/2022 6:[address] [facility] Blood Venipuncture / Unknown 06/23/2022 5:39 PM EDT 06/23/2022 5:53 PM EDT [employer] LAB BLOOD ORDERABLES Final Resul t Performing Organization Address City/[facility]/ZIP Co de Phone Number [facility] [address] [phone] * Cortisol (06/23/2022 10:24 AM EDT) Cortisol Level (mcg/dL) 27.4 mcg/dL 06/23/2022 11:[address] [facility] Blood Venipuncture / Unknown 06/23/2022 10:24 AM EDT 06/23/2022 10:29 AM EDT [employer] LAB BLOOD ORDERABLES Final Resul t Performing Organization Address [facility]/ZIP Co de Phone Number [facility] [address] [phone] * Cortisol (06/23/2022 9:25 AM EDT) Cortisol Level (mcg/dL) 22.8 mcg/dL 06/23/2022 10:[address] [facility] Blood Venipuncture / Unknown 06/23/2022 9:25 AM EDT 06/23/2022 9:30 AM EDT [employer] LAB BLOOD ORDERABLES Final Resul t Performing Organization Address City/[facility]/ZIP Co de Phone Number [facility] [address] [phone] * (ABNORMAL) Basic Metabolic Panel (06/23/2022 7:48 AM EDT) Sodium 136 136 - 146 meq/L 06/23/2022 8:[address] [facility] Potassium 4.1 3.5 - 5.1 meq/L 06/23/2022 8:[address] [facility] Chloride 110 102 - 112 meq/L 06/23/2022 8:[address] [facility] CO2 18(L) 21 - 32 meq/L 06/23/2022 8:[address] [facility] Anion Gap 12 9 - 20 06/23/2022 8:[address] [facility] BUN 16 7 - 22 mg/dL 06/23/2022 8:[address] [facility] Creatinine 0.72 0.55 - 1.02 mg/dL 06/23/2022 8:[address] [facility] BUN/Creatinine 22(H) 8 - 20 06/23/2022 8:[address] [facility] Glucose 85 74 - 106 mg/dL 06/23/2022 8:[address] [facility] Calcium 9.1 8.4 - 10.1 mg/dL 06/23/2022 8:[address] [facility] Osmolality Calc 272.4 8:[address] [facility] eGFR (mL/min/1.73m2) >60 >=60 mL/min/1.7 3m2 06/23/2022 8:[address] [facility] Comment:eGFR of <60 suggests chronic kidney disease if found over a 3 month period of time. eGFR <15 indicates renal failure. Blood Venipuncture / Unknown 06/23/2022 7:48 AM EDT 06/23/2022 8:04 AM EDT [facility] - 06/23/2022 8:32 AM EDT As [...] kidney injury or failure. us Simin Awad LAB BLOOD ORDERABLES Final Resul t [facility] [address] [phone] * (ABNORMAL) CBC with Automated Diff (06/23/2022 7:48 AM EDT) WBC 6.1 4.5 - 10.5 K/??L 06/23/2022 8:[address] [facility] RBC 3.48(L) 3.93 - 5.22 M/??L 06/23/2022 8:[address] [facility] Hemoglobin 11.2 11.2 - 15.7 GM/DL 06/23/2022 8:[address] [facility] Hematocrit 34.0(L) 34.1 - 44.9 % 06/23/2022 8:[address] [facility] MCV 98(H) 79 - 95 fL 06/23/2022 8:[address] [facility] MCH 32.2 25.6 - 32.2 pg 06/23/2022 8:[address] [facility] MCHC 32.9 32.2 - 36.5 GM/DL 06/23/2022 8:[address] [facility] RDW 15.1(H) 11.7 - 14.9 % 06/23/2022 8:[address] [facility] Platelets 310 163 - 369 K/CU MM 06/23/2022 8:[address] [facility] MPV 11.0 9.4 - 12.4 fL 06/23/2022 8:[address] [facility] % Neutros 50 34 - 71 % 06/23/2022 8:[address] [facility] % Lymphs 31 19 - 53 % 06/23/2022 8:[address] [facility] % Monos 12(H) 3 - 9 % 06/23/2022 8:[address] [facility] % Eos 6(H) 0 - 1 % 06/23/2022 8:[address] [facility] % Baso 1 0 - 2 % 06/23/2022 8:[address] [facility] NRBC Absolute 0.00 0 - 0.12 K/ul 06/23/2022 8:[address] [facility] # Neutros 3.02 1.56 - 6.13 K/??L 06/23/2022 8:[address] [facility] # Lymphs 1.90 1.00 - 3.50 K/??L 06/23/2022 8:[address] [facility] # Monos 0.73 0.16 - 1.00 K/??L 06/23/2022 8:[address] [facility] # Eos 0.35 0.00 - 0.80 K/??L 06/23/2022 8:[address] [facility] # Baso 0.05 0.00 - 0.20 K/??L 06/23/2022 8:[address] [facility] Immature Granulocytes-Re lative 0.30 0.00 - 0.60 % 06/23/2022 8:[address] [facility] # IG 0.02 0.00 - 0.05 K/uL 06/23/2022 8:[address] [facility] Blood Venipuncture / Unknown 06/23/2022 7:48 AM EDT 06/23/2022 8:[address] [facility] - 06/23/2022 8:15 AM EDT When [...] Flag noted Atypical Lymph flag noted us [employer] LAB BLOOD ORDERABLES Final Resul t Performing Organization Address City/[facility]/ZIP Co de Phone Number [facility] [address] [phone] * Cortisol (06/23/2022 7:48 AM EDT) Cortisol Level (mcg/dL) 1.5 mcg/dL 06/23/2022 8:[address] [facility] Blood Venipuncture / Unknown 06/23/2022 7:48 AM EDT 06/23/2022 8:04 AM EDT [employer] LAB BLOOD ORDERABLES Final Resul t Performing Organization Address [facility] [[email or web address]] Co de Phone Number [facility] [address] [phone] * (ABNORMAL) Manual Differential (06/22/2022 5:36 AM EDT) Total Counted 100 06/22/2022 7:[address] [facility] % Neutros (manual) 49(L) 50 - 65 % 06/22/2022 7:[address] [facility] % Lymphs (manual) 29 24 - 44 % 06/22/2022 7:[address] [facility] % Monos (manual) 17(H) 4 - 5 % 06/23/19 23 7:[address] [facility] % Eos (manual) 5(H) 0 - 3 % 06/22/2022 7:[address] [facility] RBC Morphology abnormal(A) Normal 7:[address] [facility] Platelet Estimate Adequate Adequate 06/22/2022 7:[address] [facility] Anisocytosis 1+ 06/22/2022 7:[address] [facility] Hypochromia 1+ 06/22/2022 7:[address] [facility] Ovalocytes 1+ 06/22/2022 7:[address] [facility] ANC# 3.23 K/??L 06/22/2022 7:[address] [facility] Blood Venipuncture / Unknown 06/22/2022 5:36 AM EDT 06/22/2022 5:57 AM EDT us Aayush Chew DO LAB BLOOD ORDERABLES Final Res ult [facility] [address] [phone] * (ABNORMAL) CBC with automated diff (06/22/2022 5:36 AM EDT) WBC 6.6 4.5 - 10.5 K/??L 06/22/2022 7:[address] [facility] RBC 3.36(L) 3.93 - 5.22 M/??L 06/22/2022 7:[address] [facility] Hemoglobin 10.8(L) 11.2 - 15.7 GM/DL 06/22/2022 7:[address] [facility] Hematocrit 32.7(L) 34.1 - 44.9 % 06/22/2022 7:[address] [facility] MCV 97(H) 79 - 95 fL 06/22/2022 7:[address] [facility] MCH 32.1 25.6 - 32.2 pg 06/22/2022 7:[address] [facility] MCHC 33.0 32.2 - 36.5 GM/DL 06/22/2022 7:[address] [facility] RDW 14.9 11.7 - 14.9 % 06/22/2022 7:[address] [facility] Platelets 313 163 - 369 K/CU MM 06/22/2022 7:[address] [facility] MPV 11.0 9.4 - 12.4 fL 06/22/2022 7:[address] [facility] NRBC Absolute 0.00 0 - 0.12 K/ul 06/22/2022 7:[address] [facility] Blood Venipuncture / Unknown 06/22/2022 5:36 AM EDT 06/22/2022 5:[address] [facility] - 06/22/2022 7:04 AM EDT When [...] DO LAB BLOOD ORDERABLES Final Res ult [facility] [address] [phone] * (ABNORMAL) Comprehensive metabolic panel (06/22/2022 5:36 AM EDT) Sodium 138 136 - 146 meq/L 06/22/2022 6:[address] [facility] Potassium 3.8 3.5 - 5.1 meq/L 06/22/2022 6:[address] [facility] Chloride 109 102 - 112 meq/L 06/22/2022 6:[address] [facility] CO2 20(L) 21 - 32 meq/L 06/22/2022 6:[address] [facility] Calcium 9.4 8.4 - 10.1 mg/dL 06/22/2022 6:[address] [facility] Glucose 92 74 - 106 mg/dL 06/22/2022 6:[address] [facility] BUN 16 7 - 22 mg/dL 06/22/2022 6:[address] [facility] Creatinine 0.68 0.55 - 1.02 mg/dL 06/22/2022 6:[address] [facility] BUN/Creatinine 24(H) 8 - 20 06/22/2022 6:[address] [facility] Albumin 2.3(L) 3.4 - 5.0 g/dL 06/22/2022 6:[address] [facility] Alkaline Phosphatase 60 27 - 136 U/L 06/22/2022 6:[address] [facility] ALT 35 13 - 56 U/L 06/22/2022 6:[address] [facility] AST 36 5 - 37 U/L 06/22/2022 6:[address] [facility] Total Bilirubin 0.7 0.2 - 1.2 mg/dL 06/22/2022 6:[address] [facility] Protein, Total 5.9(L) 6.4 - 8.2 gm/dL 06/22/2022 6:[address] [facility] Anion Gap 13 9 - 20 06/22/2022 6:[address] [facility] A/G Ratio 0.6(L) 1.1 - 2.5 06/22/2022 6:[address] [facility] Globulin 3.6 1.5 - 4.5 g/dL 06/22/2022 6:[address] [facility] Osmolality Calc 276.5 6:[address] [facility] eGFR (mL/min/1.73m2) >60 >=60 mL/min/1.7 3m2 06/22/2022 6:[address] [facility] Comment:ESTIMATED GFR IS NOT ACCURATE CREATININE CLEARANCE IN PREDICTING GLOMERULAR FILTRATION RATE. ESTIMATED GFR IS NOT APPLICABLE FOR DIALYSIS PATIENTS. Blood Venipuncture / Unknown 06/22/2022 5:36 AM EDT 06/22/2022 5:58 AM [facility] - 06/22/2022 6:43 AM EDT As [...] for acute kidney injury or failure. Simin Awad DO LAB BLOOD ORDERABLES Final Resul t Performing Organization Address [facility] Phone Number [facility] [address] [phone] * Cortisol (06/21/2022 4:26 PM EDT) Cortisol Level (mcg/dL) 10.0 mcg/dL 06/21/2022 5:[address] [facility] Blood Venipuncture / Unknown 06/21/2022 4:26 PM EDT 06/21/2022 4:38 PM EDT [facility] BLOOD ORDERABLES Final Resul t Performing Organization Address [facility] Phone Number [facility] [address] [phone] * Cortisol (06/21/2022 8:16 AM EDT) Cortisol Level (mcg/dL) 1.3 mcg/dL 06/21/2022 8:[address] [facility] Blood Venipuncture / Unknown 06/21/2022 8:16 AM EDT 06/21/2022 8:22 AM EDT Sarahi DAS-Kandy LAB BLOOD ORDERABLES F inal Result Performing Organization Address [facility] [[email or web address]] Co de Phone Number [facility] [address] [phone] * (ABNORMAL) Comprehensive metabolic panel (06/21/2022 6:53 AM EDT) Sodium 138 136 - 146 meq/L 06/21/2022 7:[address] [facility] Potassium 3.7 3.5 - 5.1 meq/L 06/21/2022 7:[address] [facility] Chloride 109 102 - 112 meq/L 06/21/2022 7:[address] [facility] CO2 22 21 - 32 meq/L 06/21/2022 7:[address] [facility] Calcium 9.5 8.4 - 10.1 mg/dL 06/21/2022 7:[address] [facility] Glucose 91 74 - 106 mg/dL 06/21/2022 7:[address] [facility] BUN 19 7 - 22 mg/dL 06/21/2022 7:[address] [facility] Creatinine 0.71 0.55 - 1.02 mg/dL 06/21/2022 7:[address] [facility] BUN/Creatinine 27(H) 8 - 20 06/21/2022 7:[address] [facility] Albumin 2.3(L) 3.4 - 5.0 g/dL 06/21/2022 7:[address] [facility] Alkaline Phosphatase 60 27 - 136 U/L 06/21/2022 7:[address] [facility] ALT 39 13 - 56 U/L 06/21/2022 7:[address] [facility] AST 40(H) 5 - 37 U/L 06/21/2022 7:[address] [facility] Total Bilirubin 0.4 0.2 - 1.2 mg/dL 06/21/2022 7:[address] [facility] Protein, Total 6.0(L) 6.4 - 8.2 gm/dL 06/21/2022 7:[address] [facility] Anion Gap 11 9 - 20 06/21/2022 7:[address] [facility] A/G Ratio 0.6(L) 1.1 - 2.5 06/21/2022 7:[address] [facility] Globulin 3.7 1.5 - 4.5 g/dL 06/21/2022 7:[address] [facility] Osmolality Calc 277.5 7:[address] [facility] eGFR (mL/min/1.73m2) >60 >=60 mL/min/1.7 3m2 06/21/2022 7:[address] [facility] Comment:ESTIMATED GFR IS NOT ACCURATE CREATININE CLEARANCE IN PREDICTING GLOMERULAR FILTRATION RATE. ESTIMATED GFR IS NOT APPLICABLE FOR DIALYSIS PATIENTS. Blood Venipuncture / Unknown 06/21/2022 6:53 AM EDT 06/21/2022 7:10 AM EDT [facility] - 06/21/2022 7:37 AM EDT As of 05-04-2022 date, reported [...] setting for acute kidney injury or failure. Sarahi Rajan PA-C LAB BLOOD ORDERABLES F inal Result [facility] [address] [phone] * (ABNORMAL) CBC - Hemogram (SJ-BKR) (06/21/2022 6:53 AM EDT) WBC 7.3 4.5 - 10.5 K/??L 06/21/2022 7:[address] [facility] RBC 3.55(L) 3.93 - 5.22 M/??L 06/21/2022 7:[address] [facility] Hemoglobin 11.3 11.2 - 15.7 GM/DL 06/21/2022 7:[address] [facility] Hematocrit 34.4 34.1 - 44.9 % 06/21/2022 7:[address] [facility] MCV 97(H) 79 - 95 fL 06/21/2022 7:[address] [facility] MCH 31.8 25.6 - 32.2 pg 06/21/2022 7:[address] [facility] MCHC 32.8 32.2 - 36.5 GM/DL 06/21/2022 7:[address] [facility] RDW 14.6 11.7 - 14.9 % 06/21/2022 7:[address] [facility] Platelets 316 163 - 369 K/CU MM 06/21/2022 7:[address] [facility] MPV 10.9 9.4 - 12.4 fL 06/21/2022 7:[address] [facility] Blood Venipuncture / Unknown 06/21/2022 6:53 AM EDT 06/21/2022 7:09 AM EDT us Sarahi Rajan PA-C LAB BLOOD ORDERABLES F inal Result [facility] [address] [phone] * (ABNORMAL) Basic Metabolic Panel (06/19/2022 5:40 AM EDT) Sodium 136 136 - 146 meq/L 06/19/2022 6:[address] [facility] Potassium 3.8 3.5 - 5.1 meq/L 06/19/2022 6:[address] [facility] Chloride 106 102 - 112 meq/L 06/19/2022 6:[address] [facility] CO2 21 21 - 32 meq/L 06/19/2022 6:[address] [facility] Anion Gap 13 9 - 20 06/19/2022 6:[address] [facility] BUN 32(H) 7 - 22 mg/dL 06/19/2022 6:[address] [facility] Creatinine 0.81 0.55 - 1.02 mg/dL 06/19/2022 6:[address] [facility] BUN/Creatinine 40(H) 8 - 20 06/19/2022 6:[address] [facility] Glucose 98 74 - 106 mg/dL 06/19/2022 6:45 AM EDT [facility] Calcium 9.5 8.4 - 10.1 mg/dL 06/19/2022 6:[address] [facility] Osmolality Calc 278.8 6:[address] [facility] eGFR (mL/min/1.73m2) >60 >=60 mL/min/1.7 3m2 06/19/2022 6:[address] [facility] Comment:eGFR of <60 suggests chronic kidney disease if found over a 3 month period of time. eGFR <15 indicates renal failure. Blood Venipuncture / Unknown 06/19/2022 5:40 AM EDT 06/19/2022 6:[address] [facility] - 06/19/2022 6:45 AM EDT As [...] APRN LAB BLOOD ORDERABLES Final R esult [facility] [address] [phone] * (ABNORMAL) ADRENOCORTICOTROPIC HORMONE(SENDOUT) (06/18/2022 7:54 AM EDT) Adrenocorticotropic Hormone 3.5(L) 7.2 - 63.3 pg/mL 06/19/2022 7:35 PM EDT [facility] [employer] Comment: INTERPRETIVE INFORMATION: Adrenocorticotropic Hormone Reference interval based on samples collected between 7 a.m. and 10 a.m. ??No reference intervals established for p.m. collections. ?? Pediatric reference values are the same as adults (Acta Paediatr Scand 1981;70:341-345). ??This assay measures intact ACTH 1-39; some types of synthetic ACTH and ACTH fragments are not detected by this assay. Performed By: [employer] [address] [place] [address] Tax Services Specialist: Roger Guerrero MD, PhD Blood Venipuncture / Unknown 06/18/2022 7:54 AM EDT 06/18/2022 8:03 AM EDT Simin Umanzor MEDICAL DOCTOR LAB BLOOD ORDERABLES Final R esult [facility] [address] [place] [address], [facility] [phone] * (ABNORMAL) Basic Metabolic Panel (06/18/2022 7:54 AM EDT) Sodium 137 136 - 146 meq/L 06/18/2022 8:[address] [facility] Potassium 4.6 3.5 - 5.1 meq/L 06/18/2022 8:[address] [facility] Chloride 105 102 - 112 meq/L 06/18/2022 8:[address] [facility] CO2 22 21 - 32 meq/L 06/18/2022 8:[address] [facility] Anion Gap 15 9 - 20 06/18/2022 8:[address] [facility] BUN 26(H) 7 - 22 mg/dL 06/18/2022 8:[address] [facility] Creatinine 0.81 0.55 - 1.02 mg/dL 06/18/2022 8:[address] [facility] BUN/Creatinine 32(H) 8 - 20 06/18/2022 8:[address] [facility] Glucose 94 74 - 106 mg/dL 06/18/2022 8:[address] [facility] Calcium 9.7 8.4 - 10.1 mg/dL 06/18/2022 8:[address] [facility] Osmolality Calc 278.3 8:[address] [facility] eGFR (mL/min/1.73m2) >60 >=60 mL/min/1.7 3m2 06/18/2022 8:[address] [facility] Comment:eGFR of <60 suggests chronic kidney disease if found over a 3 month period of time. eGFR <15 indicates renal failure. Blood Venipuncture / Unknown 06/18/2022 7:54 AM EDT 06/18/2022 8:[address] [facility] - 06/18/2022 8:28 AM EDT As [...] setting for acute kidney injury or failure. [employer] [facility] LAB BLOOD ORDERABLES Final R esult Performing Organization Address City/[facility]/ZIP Co de Phone Number [facility] [address] [phone] * Cortisol (06/18/2022 7:53 AM EDT) Cortisol Level (mcg/dL) 0.8 mcg/dL 06/18/2022 8:[address] [facility] Blood Venipuncture / Unknown 06/18/2022 7:53 AM EDT 06/18/2022 8:03 AM EDT [employer] MED[facility] LAB BLOOD ORDERABLES Final R esult [facility] [address] [phone] * ALDOSTERONE(SENDOUT) (06/18/2022 7:53 AM EDT) Aldosterone 16.5 ng/dL 06/19/2022 10:52 PM EDT [facility] [employer] Comment: INTERPRETIVE INFORMATION: Aldosterone, Serum Reference intervals [...] reference intervals for this test in the [facility] Test Directory ([employer]). Performed By: [employer] [address] [place] [address] Tax Services Specialist: Roger Guerrero MD, PhD Blood Venipuncture / Unknown 06/18/2022 7:53 AM EDT 06/18/2022 8:03 AM EDT Simin Erna COLBY LAB BLOOD ORDERABLES Final R esult [facility] [employer] [address] [place] [address], [facility] [phone] * (ABNORMAL) CBC with automated diff (06/17/2022 9:42 PM EDT) WBC 7.9 4.5 - 10.5 K/??L 06/17/2022 9:[address] [facility] RBC 3.66(L) 3.93 - 5.22 M/??L 06/17/2022 9:[address] [facility] Hemoglobin 11.9 11.2 - 15.7 GM/DL 06/17/2022 9:[address] [facility] Hematocrit 35.1 34.1 - 44.9 % 06/17/2022 9:[address] [facility] MCV 96(H) 79 - 95 fL 06/17/2022 9:[address] [facility] MCH 32.5(H) 25.6 - 32.2 pg 06/17/2022 9:[address] [facility] MCHC 33.9 32.2 - 36.5 GM/DL 06/17/2022 9:[address] [facility] RDW 14.8 11.7 - 14.9 % 06/17/2022 9:[address] [facility] Platelets 316 163 - 369 K/CU MM 06/17/2022 9:[address] [facility] MPV 10.8 9.4 - 12.4 fL 06/17/2022 9:[address] [facility] % Neutros 53 34 - 71 % 06/17/2022 9:[address] [facility] % Lymphs 28 19 - 53 % 06/17/2022 9:[address] [facility] % Monos 14(H) 3 - 9 % 06/17/2022 9:[address] [facility] % Eos 4(H) 0 - 1 % 06/17/2022 9:[address] [facility] % Baso 0 0 - 2 % 06/17/2022 9:[address] [facility] NRBC Absolute 0.00 0 - 0.12 K/ul 06/17/2022 9:[address] [facility] # Neutros 4.24 1.56 - 6.13 K/??L 06/17/2022 9:[address] [facility] # Lymphs 2.20 1.00 - 3.50 K/??L 06/17/2022 9:[address] [facility] # Monos 1.10(H) 0.16 - 1.00 K/??L 06/17/2022 9:[address] [facility] # Eos 0.28 0.00 - 0.80 K/??L 06/17/2022 9:[address] [facility] # Baso 0.03 0.00 - 0.20 K/??L 06/17/2022 9:[address] [facility] Immature Granulocytes-Re lative 1.10(H) 0.00 - 0.60 % 06/17/2022 9:[address] [facility] # IG 0.09(H) 0.00 - 0.05 K/uL 06/17/2022 9:[address] [facility] Blood Venipuncture / Unknown 06/17/2022 9:42 PM EDT 06/17/2022 9:[address] [facility] - 06/17/2022 9:48 PM EDT When [...] ORDERABLES Final Res ult Performing Organization Address City/State/[facility] [[email or web address]] Co de Phone Number [facility] [address] [phone] * (ABNORMAL) High Sensitivity Troponin I (06/17/2022 9:42 PM EDT) Troponin I High Sensitivity (pg/mL) 703.9(HH) 3 - 58.8 pg/mL 06/17/2022 10:[address] [facility] Comment: Troponin Result (pg/mL) ? *Interpretation [...] 9:42 PM EDT 06/17/2022 9:45 PM EDT Simin Umanzor APRN LAB BLOOD ORDERABLES Final R esult Performing Organization Address [facility]/State/ZIP Co de Phone Number [facility] [address] [phone] * (ABNORMAL) High Sensitivity Troponin I (06/17/2022 6:34 PM EDT) Troponin I High Sensitivity (pg/mL) 739.0(HH) 3 - 58.8 pg/mL 06/17/2022 7:[address] [facility] Comment: Troponin Result (pg/mL) ? *Interpretation [...] ORDERABLES Final R esult Performing Organization Address [facility] [[email or web address]] Co de Phone Number [facility] [address] [phone] * ECG 12 lead (06/17/2022 6:00 PM EDT) Pathologist [facility] VENTRICULAR RATE EKG/MIN 95 BPM GE MUSE ATRIAL RATE (MCT) 95 BPM GE MUSE NE Interval 134 ms GE MUSE QRS-INTERVAL (MSEC) 90 ms GE MUSE QT Interval 366 ms GE MUSE QTC Interval 459 ms GE MUSE R AXIS (MCT) -20 degrees GE MUSE T Wave [place] 23 degrees GE MUSE Sawyer Diagnosis Sinus rhythm with occasional premature ventricular complexes RSR' or QR pattern in V1 suggests right ventricular conduction delay Borderline ECG When compared with ECG of 14-JUN-2022 08:17, premature ventricular complexes are now present T wave amplitude has decreased in Anterior leads Confirmed by MD Tod, Ali ([id number]), development editor SUSAN GAONA ([id number]) on 06/18/2022 2:42:55 PM GE MUSE 06/17/2022 6:00 PM EDT 06/18/2022 2:42 PM EDT Simin Umanzor APRN ECG ORDERABLES Final Result Performing Organization Address [facility] [[email or web address]] Co de Phone Number [employer] MUSE * TSH with Reflex FT4 (06/17/2022 6:01 AM EDT) Pathologist [facility] TSH 3.170 0.358 - 3.740 uIU/mL 06/17/2022 3:[address] [facility] Blood Venipuncture / Unknown 06/17/2022 6:01 AM EDT 06/17/2022 7:[address] [facility] - 06/17/2022 3:08 PM EDT Biotin supplements can cause clinically significant incorrect lab results. The FDA has seen an increase in the number of adverse events related to Biotin interference with lab tests. us Simin Umanzor MEDICAL DOCTOR LAB BLOOD ORDERABLES Final R esult [facility] [address] [phone] * (ABNORMAL) Basic Metabolic Panel (06/17/2022 6:01 AM EDT) Pathologist [facility] Sodium 135(L) 136 - 146 meq/L 06/17/2022 7:[address] [facility] Potassium 4.9 3.5 - 5.1 meq/L 06/17/2022 7:[address] [facility] Chloride 107 102 - 112 meq/L 06/17/2022 7:[address] [facility] CO2 20(L) 21 - 32 meq/L 06/17/2022 7:[address] [facility] Anion Gap 13 9 - 20 06/17/2022 7:[address] [facility] BUN 27(H) 7 - 22 mg/dL 06/17/2022 7:[address] [facility] Creatinine 0.79 0.55 - 1.02 mg/dL 06/17/2022 7:[address] [facility] BUN/Creatinine 34(H) 8 - 20 06/17/2022 7:[address] [facility] Glucose 91 74 - 106 mg/dL 06/17/2022 7:[address] [facility] Calcium 10.1 8.4 - 10.1 mg/dL 06/17/2022 7:[address] [facility] Osmolality Calc 274.8 7:[address] [facility] eGFR (mL/min/1.73m2) >60 >=60 mL/min/1.7 3m2 06/17/2022 7:[address] [facility] Comment:eGFR of <60 suggests chronic kidney disease if found over a 3 month period of time. eGFR <15 indicates renal failure. Blood Venipuncture / Unknown 06/17/2022 6:01 AM EDT 06/17/2022 7:[address] [facility] - 06/17/2022 7:32 AM EDT As [...] setting for acute kidney injury or failure. [employer] MEDICAL DOCTOR LAB BLOOD ORDERABLES Final R esult Performing Organization Address City/[facility]/ZIP Co de Phone Number [facility] [address] [phone] * Cortisol (06/17/2022 6:00 AM EDT) Cortisol Level (mcg/dL) 1.0 mcg/dL 06/17/2022 7:[address] [facility] Blood Venipuncture / Unknown 06/17/2022 6:00 AM EDT 06/17/2022 7:08 AM EDT [employer] MEDICAL DOCTOR LAB BLOOD ORDERABLES Final R esult [facility] [address] [phone] * (ABNORMAL) Basic Metabolic Panel (06/16/2022 12:46 PM EDT) Sodium 140 136 - 146 meq/L 06/16/2022 1:[address] [facility] Potassium 4.1 3.5 - 5.1 meq/L 06/16/2022 1:[address] [facility] Chloride 111 102 - 112 meq/L 06/16/2022 1:[address] [facility] CO2 22 21 - 32 meq/L 06/16/2022 1:[address] [facility] Anion Gap 11 9 - 20 06/16/2022 1:[address] [facility] BUN 26(H) 7 - 22 mg/dL 06/16/2022 1:[address] [facility] Creatinine 0.76 0.55 - 1.02 mg/dL 06/16/2022 1:[address] [facility] BUN/Creatinine 34(H) 8 - 20 06/16/2022 1:[address] [facility] Glucose 102 74 - 106 mg/dL 06/16/2022 1:[address] [facility] Calcium 9.6 8.4 - 10.1 mg/dL 06/16/2022 1:[address] [facility] Osmolality Calc 284.4 1:[address] [facility] eGFR (mL/min/1.73m2) >60 >=60 mL/min/1.7 3m2 06/16/2022 1:[address] [facility] Comment:eGFR of <60 suggests chronic kidney disease if found over a 3 month period of time. eGFR <15 indicates renal failure. Blood Venipuncture / Unknown 06/16/2022 12:46 PM EDT 06/16/2022 12:53 PM EDT [facility] - 06/16/2022 1:05 PM EDT As [...] kidney injury or failure. us Simin Umanzor MEDICAL DOCTOR LAB BLOOD ORDERABLES Final R esult [facility] [address] [phone] * (ABNORMAL) CBC with automated diff (06/16/2022 5:42 AM EDT) WBC 7.7 4.5 - 10.5 K/??L 06/16/2022 6:[address] [facility] RBC 3.46(L) 3.93 - 5.22 M/??L 06/16/2022 6:[address] [facility] Hemoglobin 11.1(L) 11.2 - 15.7 GM/DL 06/16/2022 6:[address] [facility] Hematocrit 33.7(L) 34.1 - 44.9 % 06/16/2022 6:[address] [facility] MCV 97(H) 79 - 95 fL 06/16/2022 6:[address] [facility] MCH 32.1 25.6 - 32.2 pg 06/16/2022 6:[address] [facility] MCHC 32.9 32.2 - 36.5 GM/DL 06/16/2022 6:[address] [facility] RDW 14.6 11.7 - 14.9 % 06/16/2022 6:[address] [facility] Platelets 260 163 - 369 K/CU MM 06/16/2022 6:[address] [facility] MPV 10.8 9.4 - 12.4 fL 06/16/2022 6:[address] [facility] % Neutros 61 34 - 71 % 06/16/2022 6:[address] [facility] % Lymphs 24 19 - 53 % 06/16/2022 6:[address] [facility] % Monos 12(H) 3 - 9 % 06/16/2022 6:[address] [facility] % Eos 2(H) 0 - 1 % 06/16/2022 6:[address] [facility] % Baso 0 0 - 2 % 06/16/2022 6:[address] [facility] NRBC Absolute 0.00 0 - 0.12 K/ul 06/16/2022 6:[address] [facility] # Neutros 4.64 1.56 - 6.13 K/??L 06/16/2022 6:[address] [facility] # Lymphs 1.83 1.00 - 3.50 K/??L 06/16/2022 6:[address] [facility] # Monos 0.92 0.16 - 1.00 K/??L 06/16/2022 6:[address] [facility] # Eos 0.18 0.00 - 0.80 K/??L 06/16/2022 6:[address] [facility] # Baso 0.03 0.00 - 0.20 K/??L 06/16/2022 6:[address] [facility] Immature Granulocytes-Re lative 1.00(H) 0.00 - 0.60 % 06/16/2022 6:[address] [facility] # IG 0.08(H) 0.00 - 0.05 K/uL 06/16/2022 6:[address] [facility] Blood Venipuncture / Unknown 06/16/2022 5:42 AM EDT 06/16/2022 6:[address] [facility] - 06/16/2022 6:18 AM EDT When [...] DO LAB BLOOD ORDERABLES Final Res ult [facility] [address] [phone] * Urinalysis, Reflex Microscopic and Culture If Indicated (06/15/2022 11:19 AM EDT) Color, UA Light Yellow 06/15/2022 12:[address] [facility] Clarity, UA Clear Clear 06/15/2022 12:[address] [facility] Specific [place], UA 1.012 1.005 - 1.030 06/15/2022 12:[address] [facility] pH, UA 7.0 6.0 - 8.0 06/15/2022 12:[address] [facility] Leukocytes, UA Negative Negative 06/15/2022 12:[address] [facility] Nitrite, UA Negative Negative 06/15/2022 12:[address] [facility] Protein, UA Negative Negative 06/15/2022 12:[address] [facility] Glucose, UA Normal Normal 06/15/2022 12:[address] [facility] Ketones, UA Negative Negative 06/15/2022 12:[address] [facility] Bilirubin, UA Negative Negative 06/15/2022 12:[address] [facility] Blood, UA Negative Negative 06/15/2022 12:[address] [facility] Urobilinogen, UA Normal Normal 06/15/2022 12:[address] [facility] Specimen Source Urine, Clean Catch 06/15/2022 12:[address] [facility] Urine URINE SPECIMEN COLLECTION, CLEAN CATCH / Unknown 06/15/2022 11:19 AM EDT 06/15/2022 11:49 AM EDT us Robby DAS-Kandy URINE ORDERABLES Final Result Performing Organization Address City/[facility]/ZIP Co de Phone Number [facility] [address] [phone] * (ABNORMAL) CBC with automated diff (06/15/2022 6:47 AM EDT) WBC 7.4 4.5 - 10.5 K/??L 06/15/2022 7:[address] [facility] RBC 3.66(L) 3.93 - 5.22 M/??L 06/15/2022 7:[address] [facility] Hemoglobin 11.8 11.2 - 15.7 GM/DL 06/15/2022 7:[address] [facility] Hematocrit 34.8 34.1 - 44.9 % 06/15/2022 7:[address] [facility] MCV 95 79 - 95 fL 06/15/2022 7:[address] [facility] MCH 32.2 25.6 - 32.2 pg 06/15/2022 7:[address] [facility] MCHC 33.9 32.2 - 36.5 GM/DL 06/15/2022 7:[address] [facility] RDW 14.6 11.7 - 14.9 % 06/15/2022 7:[address] [facility] Platelets 267 163 - 369 K/CU MM 06/15/2022 7:[address] [facility] MPV 10.9 9.4 - 12.4 fL 06/15/2022 7:[address] [facility] % Neutros 63 34 - 71 % 06/15/2022 7:[address] [facility] % Lymphs 23 19 - 53 % 06/15/2022 7:[address] [facility] % Monos 12(H) 3 - 9 % 06/15/2022 7:[address] [facility] % Eos 1 0 - 1 % 06/15/2022 7:[address] [facility] % Baso 0 0 - 2 % 06/15/2022 7:[address] [facility] NRBC Absolute 0.00 0 - 0.12 K/ul 06/15/2022 7:[address] [facility] # Neutros 4.67 1.56 - 6.13 K/??L 06/15/2022 7:[address] [facility] # Lymphs 1.68 1.00 - 3.50 K/??L 06/15/2022 7:[address] [facility] # Monos 0.91 0.16 - 1.00 K/??L 06/15/2022 7:[address] [facility] # Eos 0.05 0.00 - 0.80 K/??L 06/15/2022 7:[address] [facility] # Baso 0.02 0.00 - 0.20 K/??L 06/15/2022 7:[address] [facility] Immature Granulocytes-Re lative 0.80(H) 0.00 - 0.60 % 06/15/2022 7:[address] [facility] # IG 0.06(H) 0.00 - 0.05 K/uL 06/15/2022 7:[address] [facility] Blood Venipuncture / Unknown 06/15/2022 6:47 AM EDT 06/15/2022 7:[address] [facility] - 06/15/2022 7:19 AM EDT When [...] DO LAB BLOOD ORDERABLES Final Res ult [facility] [address] [place], [place] [address] [phone] * ECG 12 lead (06/14/2022 8:17 AM EDT) VENTRICULAR RATE EKG/MIN 83 BPM GE MUSE ATRIAL RATE (MCT) 83 BPM GE MUSE NE Interval 156 ms GE MUSE QRS-INTERVAL (MSEC) 94 ms GE MUSE QT Interval 410 ms GE MUSE QTC Interval 481 ms GE MUSE P [place] 50 degrees GE MUSE R AXIS (MCT) -3 degrees GE MUSE T Wave [place] 62 degrees GE MUSE Sawyer Diagnosis Normal sinus rhythm Incomplete right bundle branch block Nonspecific ST abnormality Abnormal ECG When compared with ECG of 13-JUN-2022 14:26, Incomplete right bundle branch block is now present Confirmed by MD Tod, Abebe ([id number]), development editor Joshua Casillas ([id number]) on 06/16/2022 10:36:22 PM GE MUSE 06/14/2022 8:17 AM EDT 06/16/2022 10:36 PM EDT Maricarmen DAS-Kandy ECG ORDERABLES Final Result Performing Organization Address City/[facility]/ZIP Co de Phone Number GE MUSE * (ABNORMAL) PROBNP (06/14/2022 5:27 AM EDT) ProBNP (pg/mL) 14,793(H) 0 - 450 pg/mL 06/14/2022 6:[address] [facility] Blood Venipuncture / Unknown 06/14/2022 5:27 AM EDT 06/14/2022 5:59 AM EDT Maricarmen Can PA-C LAB BLOOD ORDERABLES Final R esult [facility] [address] [phone] * (ABNORMAL) Basic Metabolic Panel (06/14/2022 5:27 AM EDT) Sodium 139 136 - 146 meq/L 06/14/2022 6:[address] [facility] Potassium 4.1 3.5 - 5.1 meq/L 06/14/2022 6:[address] [facility] Chloride 110 102 - 112 meq/L 06/14/2022 6:[address] [facility] CO2 18(L) 21 - 32 meq/L 06/14/2022 6:[address] [facility] Anion Gap 15 9 - 20 06/14/2022 6:[address] [facility] BUN 19 7 - 22 mg/dL 06/14/2022 6:[address] [facility] Creatinine 0.67 0.55 - 1.02 mg/dL 06/14/2022 6:[address] [facility] BUN/Creatinine 28(H) 8 - 20 06/14/2022 6:[address] [facility] Glucose 97 74 - 106 mg/dL 06/14/2022 6:[address] [facility] Calcium 9.3 8.4 - 10.1 mg/dL 06/14/2022 6:[address] [facility] Osmolality Calc 279.7 6:[address] [facility] eGFR (mL/min/1.73m2) >60 >=60 mL/min/1.7 3m2 06/14/2022 6:[address] [facility] Comment:eGFR of <60 suggests chronic kidney disease if found over a 3 month period of time. eGFR <15 indicates renal failure. Blood Venipuncture / Unknown 06/14/2022 5:27 AM EDT 06/14/2022 5:59 AM EDT [facility] - 06/14/2022 6:37 AM EDT As [...] PA-C LAB BLOOD ORDERABLES Final R esult [facility] [address] [phone] * (ABNORMAL) CBC with automated diff (06/14/2022 5:27 AM EDT) WBC 8.7 4.5 - 10.5 K/??L 06/14/2022 6:[address] [facility] RBC 3.31(L) 3.93 - 5.22 M/??L 06/14/2022 6:[address] [facility] Hemoglobin 10.6(L) 11.2 - 15.7 GM/DL 06/14/2022 6:[address] [facility] Hematocrit 31.8(L) 34.1 - 44.9 % 06/14/2022 6:[address] [facility] MCV 96(H) 79 - 95 fL 06/14/2022 6:[address] [facility] MCH 32.0 25.6 - 32.2 pg 06/14/2022 6:[address] [facility] MCHC 33.3 32.2 - 36.5 GM/DL 06/14/2022 6:[address] [facility] RDW 14.4 11.7 - 14.9 % 06/14/2022 6:[address] [facility] Platelets 233 163 - 369 K/CU MM 06/14/2022 6:[address] [facility] MPV 10.7 9.4 - 12.4 fL 06/14/2022 6:[address] [facility] % Neutros 74(H) 34 - 71 % 06/14/2022 6:[address] [facility] % Lymphs 14(L) 19 - 53 % 06/14/2022 6:[address] [facility] % Monos 11(H) 3 - 9 % 06/14/2022 6:[address] [facility] % Eos 0 0 - 1 % 06/14/2022 6:[address] [facility] % Baso 0 0 - 2 % 06/14/2022 6:[address] [facility] NRBC Absolute 0.00 0 - 0.12 K/ul 06/14/2022 6:[address] [facility] # Neutros 6.40(H) 1.56 - 6.13 K/??L 06/14/2022 6:[address] [facility] # Lymphs 1.25 1.00 - 3.50 K/??L 06/14/2022 6:[address] [facility] # Monos 0.97 0.16 - 1.00 K/??L 06/14/2022 6:[address] [facility] # Eos 0.02 0.00 - 0.80 K/??L 06/14/2022 6:[address] [facility] # Baso 0.01 0.00 - 0.20 K/??L 06/14/2022 6:[address] [facility] Immature Granulocytes-Re lative 0.50 0.00 - 0.60 % 06/14/2022 6:[address] [facility] # IG 0.04 0.00 - 0.05 K/uL 06/14/2022 6:[address] [facility] Blood Venipuncture / Unknown 06/14/2022 5:27 AM EDT 06/14/2022 5:[address] [facility] - 06/14/2022 6:10 AM EDT When [...] DO LAB BLOOD ORDERABLES Final Res ult [facility] 1 [place], [place] [address] [phone] * ECG 12 lead (06/13/2022 2:26 PM EDT) VENTRICULAR RATE EKG/MIN 78 BPM GE MUSE ATRIAL RATE (MCT) 78 BPM GE MUSE NE Interval 158 ms GE MUSE QRS-INTERVAL (MSEC) 90 ms GE MUSE QT Interval 388 ms GE MUSE QTC Interval 442 ms GE MUSE P [place] 58 degrees GE MUSE R AXIS (MCT) -19 degrees GE MUSE T Wave [place] 65 degrees GE MUSE Sawyer Diagnosis Age and gender specific ECG analysis Normal sinus rhythm ST abnormality, possible digitalis effect Abnormal ECG When compared with ECG of 11-MAY-2022 06:18, Vent. rate has decreased BY ??61 BPM Questionable change in QRS duration Criteria for Anterior infarct are no longer present Confirmed by Navjot DOWELL MICHAEL ([id number]), development editor SUSAN GAONA ([id number]) on 06/14/2022 11:21:22 AM GE MUSE 06/13/2022 2:26 PM EDT 06/14/2022 11:21 AM EDT Naseemrishi Gustafsonjordan COLBY ECG ORDERABLES Final Result GE MUSE * CARDIAC CATH - LEFT HEART CATH W/ POSSIBLE INTERVENTION (06/13/2022 12:20 PM EDT) Anatomical Region Laterality Modality Heart Other 06/13/2022 10:5 4 AM EDT Narrative 06/13/2022 7:32 PM EDT Cardiac Diagnostic + PCI Report Demographics Patient Name ? JOHN Mallory ?Date of ? 1940 Patient # ?[id number] ?Accession # ? [id number] ?Medical Record # Physician ?ARSLAN PORRAS DO [...] right common femoral artery Indications Non-ST elevation DC Procedure Patient was brought to the cardiac Blood Bank Technologist on arrival the patient was hemodynamically stable. The right groin was draped and prepped in sterile fashion 2% lidocaine was used anesthetize groin ultrasound interrogation was performed. Common femoral artery is normal. Bifurcational. Pulsatile flow was noted. Under ultrasound guidance access obtained with a 6 [place] sheath introduced accordingly. Using a standard set [...] Decision was to proceed with stenting. An Strong 3.5 x 15 drug-eluting stent was introduced [...] was performed. Angio-Seal was successfully deployed 6 [place] to the right common femoral artery. Of [...] of the lesion. Recommendations Conclusions Non-ST elevation DC as described above Occlusion of all 3 [...] a max pressure of: 15 ??basilio. ??- Kiran [place] RX 3.5x15 Stent. 1 inflation(s) to a [...] used for:Was not used. Contrast Material ??- [id number] ml Fluoroscopy Time: Total: 18:24 minutes. Fluoroscopy [...] !165/ ,15 ?! +-----+ + !LV ?? !158/9 ,156 ?! +-----+ + !AO ?? !175/78 [...] JOHN Mallory Date of 1940 Patient # [id number] Medical Record # Physician ARSLAN PORRAS DO [...] with shockwave balloon 3.5 and treated with Strong 3.5 x 15 drug-elutingstent which was postdilated with a 4.0 noncompliant balloon atmospheres 9. Iliofemoral angiography with Angio-Seal to the right common femoral artery Indications Non-ST elevation DC Procedure Patient was brought to the cardiac Blood Bank Technologist on arrival the patient was hemodynamically stable. [...] angiography was performed. Angio-Seal was successfullydeployed 6 [place] to the right common femoral artery. Of [...] of the lesion. Recommendations Conclusions Non-ST elevation DC as described above Occlusion of all 3 [...] a max pressure of: 15 basilio. - Kiran [place] RX 3.5x15 Stent. 1 inflation(s) to a [...] used for:Was not used. Contrast Material - [id number] ml Fluoroscopy Time: Total: 18:24 minutes. Fluoroscopy [...] Oxygen Values O2 Consumption 211.25 Signatures Sumanth Laureano APRN CV CARDIAC CATH ORDERABLES Final Result * (ABNORMAL) POC ACTIVATED CLOTTING TIME (06/13/2022 11:48 AM EDT) Activated Clotting Time 239(H) 74 - 137 sec 06/13/2022 12:[address] [facility] Jewel Stringer [id number] 06/13/2022 12:[address] [facility] Blood 06/13/2022 11:4 8 AM EDT 06/13/2022 12:[address] [facility] - 06/13/2022 12:34 PM EDT Jewel Stringer ID is - [id number] Robby Machuca PA-C POINT OF CARE TEST ORDERABLES F inal Result Performing Organization Address [facility] Phone Number [facility] [address] [phone] * (ABNORMAL) POC ACTIVATED CLOTTING TIME (06/13/2022 11:00 AM EDT) Activated Clotting Time 167(H) 74 - 137 sec 06/13/2022 12:[address] [facility] Jewel Stringer [id number] 06/13/2022 12:[address] [facility] Blood 06/13/2022 11:0 0 AM EDT 06/13/2022 12:34 PM EDT [facility] - 06/13/2022 12:34 PM EDT Jewel Stringer ID is - [id number] Robby Machuca PA-C POINT OF CARE TEST ORDERABLES F inal Result Performing Organization Address [facility] Phone Number [facility] [address] [phone] * Ultrasound-guided vascular access (06/13/2022 11:00 AM EDT) Anatomical Region Laterality Modality Vascular Vascular Ultraso und 06/13/2022 11:4 8 AM EDT Narrative 06/20/2022 2:10 PM EDT Vascular Procedure Demographics Patient Name ? JOHN Mallory ??Age ? 81 Patient Number ? [id number] ?Gender ?Female ?Race ?Ethnicity Corporate ID ? [id number] ?Height ?62 Date of ?1940 ?Weight ?150 Accession Number ? [id number] ?BSA ? 1.69 m^2 Room Number ?[id number] ? BMI ? 27.44 kg/m^2 Referring Physician ??ARSLAN PORRAS ?? Interpreting Physician ??ARSLAN PORRAS DO Pretzel Twisting Machine Operator ?[place] [place] Procedure Type of Study: US GUIDED VASCULAR ACCESS : . Impressions Summary INDICATION: Angina at rest I20.8 . RIGHT: Ultrasound guided vascular access of Common femoral artery . INTERNET SPECIALIST was 3.0 cm in depth and patent. [...] Name JOHN Mallory Age 81 Patient Number [id number] Gender Female Race Ethnicity Corporate ID [id number] Height 62 Date of 1940 Weight 150 Accession Number [id number] BSA 1.69 m^2 Room Number 538 BMI 27.44 kg/m^2 Referring Physician ARSLAN PORRAS Interpreting Physician ARSLAN VELASCO Pretzel Twisting Machine Operator Humble Montes Procedure Type of Study: US GUIDED VASCULAR ACCESS : . Impressions Summary INDICATION: Angina at rest I20.8 . RIGHT: Ultrasound guided vascular access of Common femoral artery . INTERNET SPECIALIST was 3.0 cm in depth and patent. Access was successful. Allergies - Bactrim. - Morphine:(claritin). - Sulfa. Patient Status:Inpatient . Study Location:Portable. Technical Quality:Good visualization. Risk Factors - The patient's risk factor(s) include: treated arterial hypertensionand prior CABG. - The patient's last creatinine was 0.8 mg/dl. Signature Arslan Porras DO [facility] US ORDERABLES Final Result * (ABNORMAL) High Sensitivity Troponin I (06/13/2022 9:25 AM EDT) Troponin I High Sensitivity (pg/mL) 2,951.0(H H) 3 - 58.8 pg/mL 06/13/2022 10:[address] [facility] Comment: Troponin Result (pg/mL) ? *Interpretation [...] 9:25 AM EDT 06/13/2022 9:46 AM EDT Sumanth Laureano MEDICAL DOCTOR LAB BLOOD ORDERABLES Final Result [facility] [address] [place] [address], [facility] [phone] * (ABNORMAL) PTT Heparin Protocol (06/13/2022 9:25 AM EDT) PTT Heparin 71.4(H) 45 - 65 seconds 06/13/2022 10:[address] [facility] Blood Venipuncture / Unknown 06/13/2022 9:25 AM EDT 06/13/2022 9:46 AM EDT us Aayush Chew DO LAB BLOOD ORDERABLES Final Res ult Performing Organization Address [facility] de Phone Number [facility] [address] [phone] * (ABNORMAL) PTT Heparin Protocol (06/13/2022 5:24 AM EDT) Pathologist [facility] PTT Heparin 23.6(L) 45 - 65 seconds 06/13/2022 5:[address] [facility] Blood Venipuncture / Unknown 06/13/2022 5:24 AM EDT 06/13/2022 5:27 AM EDT us Aayush Chew DO LAB BLOOD ORDERABLES Final Res ult Performing Organization Address [facility] Phone Number [facility] [address] [phone] * (ABNORMAL) High Sensitivity Troponin I (06/13/2022 5:24 AM EDT) [facility] Troponin I High Sensitivity (pg/mL) 1,454.5(H H) 3 - 58.8 pg/mL 06/13/2022 6:[address] [facility] Comment: Troponin Result (pg/mL) ? *Interpretation [...] ORDERABLES Final Res ult Performing Organization Address [facility] [[email or web address]] Co de Phone Number [facility] [address] [phone] * Prothrombin time/INR (06/13/2022 5:24 AM EDT) Protime 11.0 9.2 - 12.0 seconds 06/13/2022 5:[address] [facility] INR 1.01 0.90 - 1.20 06/13/2022 5:[address] [facility] Comment: Recommended therapeutic ranges using International [...] ORDERABLES Final Res ult Performing Organization Address [facility]/ZIP Co de Phone Number [facility] [address] [phone] * (ABNORMAL) CBC with automated diff (06/13/2022 5:24 AM EDT) WBC 7.2 4.5 - 10.5 K/??L 06/13/2022 5:[address] [facility] RBC 3.57(L) 3.93 - 5.22 M/??L 06/13/2022 5:[address] [facility] Hemoglobin 11.5 11.2 - 15.7 GM/DL 06/13/2022 5:[address] [facility] Hematocrit 35.3 34.1 - 44.9 % 06/13/2022 5:[address] [facility] MCV 99(H) 79 - 95 fL 06/13/2022 5:[address] [facility] MCH 32.2 25.6 - 32.2 pg 06/13/2022 5:[address] [facility] MCHC 32.6 32.2 - 36.5 GM/DL 06/13/2022 5:[address] [facility] RDW 14.3 11.7 - 14.9 % 06/13/2022 5:[address] [facility] Platelets 190 163 - 369 K/CU MM 06/13/2022 5:[address] [facility] MPV 10.5 9.4 - 12.4 fL 06/13/2022 5:[address] [facility] % Neutros 82(H) 34 - 71 % 06/13/2022 5:[address] [facility] % Lymphs 8(L) 19 - 53 % 06/13/2022 5:[address] [facility] % Monos 9 3 - 9 % 06/13/2022 5:[address] [facility] % Eos 0 0 - 1 % 06/13/2022 5:[address] [facility] % Baso 0 0 - 2 % 06/13/2022 5:[address] [facility] NRBC Absolute 0.00 0 - 0.12 K/ul 06/13/2022 5:[address] [facility] # Neutros 5.88 1.56 - 6.13 K/??L 06/13/2022 5:[address] [facility] # Lymphs 0.58(L) 1.00 - 3.50 K/??L 06/13/2022 5:[address] [facility] # Monos 0.62 0.16 - 1.00 K/??L 06/13/2022 5:[address] [facility] # Eos 0.02 0.00 - 0.80 K/??L 06/13/2022 5:[address] [facility] # Baso 0.01 0.00 - 0.20 K/??L 06/13/2022 5:[address] [facility] Immature Granulocytes-Re lative 0.60 0.00 - 0.60 % 06/13/2022 5:[address] [facility] # IG 0.04 0.00 - 0.05 K/uL 06/13/2022 5:[address] [facility] Blood Venipuncture / Unknown 06/13/2022 5:24 AM EDT 06/13/2022 5:[address] [facility] - 06/13/2022 5:38 AM EDT When [...] DO LAB BLOOD ORDERABLES Final Res ult [facility] [address] [place] [address], [facility] [phone] * XR chest AP portable (06/13/2022 4:37 [...] - 2.4 mg/dL 06/13/2022 5:[address] [facility] Blood Venipuncture / Unknown 06/13/2022 4:29 AM EDT 06/13/2022 4:32 AM EDT Naseem Anderson APRN LAB BLOOD ORDERABLES Final Res ult [facility] [address] [phone] * (ABNORMAL) PROBNP (06/13/2022 4:29 AM EDT) ProBNP (pg/mL) 7,007(H) 0 - 450 pg/mL 06/13/2022 5:[address] [facility] Blood Venipuncture / Unknown 06/13/2022 4:29 AM EDT 06/13/2022 4:32 AM EDT us Naseem Anderson APRN LAB BLOOD ORDERABLES Final Res ult [facility] [address] [place] [address], [facility] [phone] * (ABNORMAL) Comprehensive metabolic panel (06/13/2022 4:29 AM EDT) Sodium 139 136 - 146 meq/L 06/13/2022 5:[address] [facility] Potassium 4.4 3.5 - 5.1 meq/L 06/13/2022 5:[address] [facility] Chloride 108 102 - 112 meq/L 06/13/2022 5:[address] [facility] CO2 21 21 - 32 meq/L 06/13/2022 5:[address] [facility] Calcium 9.1 8.4 - 10.1 mg/dL 06/13/2022 5:[address] [facility] Glucose 109(H) 74 - 106 mg/dL 06/13/2022 5:[address] [facility] BUN 16 7 - 22 mg/dL 06/13/2022 5:[address] [facility] Creatinine 0.80 0.55 - 1.02 mg/dL 06/13/2022 5:[address] [facility] BUN/Creatinine 20 8 - 20 06/13/2022 5:[address] [facility] Albumin 2.6(L) 3.4 - 5.0 g/dL 06/13/2022 5:[address] [facility] Alkaline Phosphatase 60 27 - 136 U/L 06/13/2022 5:[address] [facility] ALT 20 13 - 56 U/L 06/13/2022 5:[address] [facility] AST 38(H) 5 - 37 U/L 06/13/2022 5:[address] [facility] Total Bilirubin 0.4 0.2 - 1.2 mg/dL 06/13/2022 5:[address] [facility] Protein, Total 6.1(L) 6.4 - 8.2 gm/dL 06/13/2022 5:[address] [facility] Anion Gap 14 9 - 20 06/13/2022 5:[address] [facility] A/G Ratio 0.7(L) 1.1 - 2.5 06/13/2022 5:[address] [facility] Globulin 3.5 1.5 - 4.5 g/dL 06/13/2022 5:[address] [facility] Osmolality Calc 279.3 5:[address] [facility] eGFR (mL/min/1.73m2) >60 >=60 mL/min/1.7 3m2 06/13/2022 5:[address] [facility] Comment:ESTIMATED GFR IS NOT ACCURATE CREATININE CLEARANCE IN PREDICTING GLOMERULAR FILTRATION RATE. ESTIMATED GFR IS NOT APPLICABLE FOR DIALYSIS PATIENTS. Blood Venipuncture / Unknown 06/13/2022 4:29 AM EDT 06/13/2022 4:32 AM EDT [facility] - 06/13/2022 5:19 AM EDT As [...] for acute kidney injury or failure. us Naseem Anderson APRN LAB BLOOD ORDERABLES Final Res ult [facility] [address] [place], [place] [address] [phone] * (ABNORMAL) High Sensitivity Troponin I (06/13/2022 4:29 AM EDT) Pathologist [facility] Troponin I High Sensitivity (pg/mL) 1,629.2(H H) 3 - 58.8 pg/mL 06/13/2022 5:[address] [facility] Comment: Troponin Result (pg/mL) ? *Interpretation [...] DO LAB BLOOD ORDERABLES Final Res ult [facility] [address] [place] [address], [facility] [phone] * ECG 12 lead (06/13/2022 4:21 AM EDT) VENTRICULAR RATE EKG/MIN 96 BPM GE MUSE ATRIAL RATE (MCT) 96 BPM GE MUSE NE Interval 174 ms GE MUSE QRS-INTERVAL (MSEC) 98 ms GE MUSE QT Interval 352 ms GE MUSE QTC Interval 444 ms GE MUSE P [place] 37 degrees GE MUSE R AXIS (MCT) -44 degrees GE MUSE T Wave [place] 103 degrees GE MUSE Sawyer Diagnosis Normal sinus rhythm Left axis deviation Incomplete right bundle branch block Inferior infarct (cited on or before 10-JUN-2022) Anterolateral infarct (cited on or before 10-JUN-2022) ACUTE DC / STEMI Consider right ventricular involvement in acute inferior infarct Abnormal ECG When compared with ECG of 10-JUN-2022 03:57, Questionable change in initial forces of Lateral leads ST now depressed in Lateral leads T wave inversion now evident in Anterolateral leads Confirmed by MD Tod, Ali ([id number]), development editor Joshua Casillas ([id number]) on 06/16/2022 8:10:27 PM GE MUSE 06/13/2022 4:21 AM EDT 06/16/2022 8:10 PM EDT us Aayush Chew DO ECG ORDERABLES Final Result GE MUSE * Glucose, Nova Meter (06/12/2022 2:42 PM EDT) [facility] POC-GLUCOSE 86 70 - 110 mg/dL 06/12/2022 2:[address] [facility] Comment: In the event of poor peripheral blood flow, venous or arterial blood should be used due to the potential of erroneous results. Notified Nurse RBV Jewel Stringer [phone] 06/12/2022 2:[address] [facility] Blood WHOLE BLOOD / Unknown 06/12/2022 2:42 PM EDT 06/12/2022 2:[address] [facility] - 06/12/2022 2:43 PM EDT Jewel Stringer ID is - [id number] us Robby Machuca PA-C POINT OF CARE TEST ORDERABLES F inal Result Performing Organization Address City/[facility]/ZIP Co de Phone Number [facility] [address] [phone] * Fluoroscopy less than 1 hour (06/12/2022 12:30 PM EDT) Anatomical Region Laterality Modality X-Ray 06/12/2022 4:15 PM EDT Impressions 06/12/2022 4:50 PM EDT See above. Please see operative report for details. Images reviewed, interpreted, and dictated by Dr. Carlos Alberto Hu. Transcribed by Vince Mcmahon (Idris). Narrative 06/12/2022 4:50 PM EDT FLUOROSCOPY IN [...] TRANSTHORACIC ECHOCARDIOGRAPHY REPORT Demographics Patient Name: ?JOHN CROCKETTO M ?: ?1940 ?Age: ?81 year(s) Corporate ID Number: ?? [id number] ?Gender ?Female Pretzel Twisting Machine Operator: ? Abby Gagandeep RDCS ??Height: ? 62 inches Referring Physician: ?? ROBBY MACHUCA PA ?Weight: ? 150 pounds Interpreting ? GRAZYNA [...] ?? E/A ratio: 0.77 m/s ? Volume [id number] ?? LV length: 8.4 cm ml Volume afdwiyop05.69 ml LVOT diameter: 2.05 cm Normal sized [...] TR velocity: 3.18 m/s ? TR gradient: 40.44930 mmHg Estimated RAP: 3 mmHg ? RVSP: [...] 1940 Age: 81 year(s) Corporate ID Number: [id number] Gender Female Pretzel Twisting Machine Operator: Abby Donis [facility] Height: 62 inches Referring Physician: ROBBY [...] 1.17 m/s E/A ratio: 0.77 m/s Volume quwnvcuxs89.11 LV length: 8.4 cm ml Volume .69 [...] Valve TR velocity: 3.18 m/s TR gradient: 40.58773 mmHg Estimated RAP: 3 mmHg RVSP: 43.46 [...] No masses or thrombi. No intracardiac shunt. Robby Machuca PA-C CV ECHO ORDERABLES Final Result * (ABNORMAL) Basic Metabolic Panel (06/11/2022 6:51 AM EDT) Sodium 139 136 - 146 meq/L 06/11/2022 7:[address] [facility] Potassium 4.1 3.5 - 5.1 meq/L 06/11/2022 7:[address] [facility] Chloride 109 102 - 112 meq/L 06/11/2022 7:[address] [facility] CO2 23 21 - 32 meq/L 06/11/2022 7:[address] [facility] Anion Gap 11 9 - 20 06/11/2022 7:[address] [facility] BUN 20 7 - 22 mg/dL 06/11/2022 7:[address] [facility] Creatinine 0.93 0.55 - 1.02 mg/dL 06/11/2022 7:[address] [facility] BUN/Creatinine 22(H) 8 - 20 06/11/2022 7:[address] [facility] Glucose 95 74 - 106 mg/dL 06/11/2022 7:[address] [facility] Calcium 8.9 8.4 - 10.1 mg/dL 06/11/2022 7:[address] [facility] Osmolality Calc 280.0 7:[address] [facility] eGFR (mL/min/1.73m2) >60 >=60 mL/min/1.7 3m2 06/11/2022 7:[address] [facility] Comment:eGFR of <60 suggests chronic kidney disease if found over a 3 month period of time. eGFR <15 indicates renal failure. Blood Venipuncture / Unknown 06/11/2022 6:51 AM EDT 06/11/2022 7:17 AM EDT [facility] - 06/11/2022 7:44 AM EDT As [...] acute kidney injury or failure. Annette Spencer MEDICAL DOCTOR LAB BLOOD ORDERABLES Fi nal Result [facility] [address] [place] [address] * (ABNORMAL) CBC - Hemogram (SJ-BKR) (06/11/2022 6:51 AM EDT) WBC 5.7 4.5 - 10.5 K/??L 06/11/2022 7:[address] [facility] RBC 3.48(L) 3.93 - 5.22 M/??L 06/11/2022 7:[address] [facility] Hemoglobin 11.4 11.2 - 15.7 GM/DL 06/11/2022 7:[address] [facility] Hematocrit 34.5 34.1 - 44.9 % 06/11/2022 7:[address] [facility] MCV 99(H) 79 - 95 fL 06/11/2022 7:[address] [facility] MCH 32.8(H) 25.6 - 32.2 pg 06/11/2022 7:[address] [facility] MCHC 33.0 32.2 - 36.5 GM/DL 06/11/2022 7:[address] [facility] RDW 14.7 11.7 - 14.9 % 06/11/2022 7:[address] [facility] Platelets 203 163 - 369 K/CU MM 06/11/2022 7:[address] [facility] MPV 10.9 9.4 - 12.4 fL 06/11/2022 7:[address] [facility] Blood Venipuncture / Unknown 06/11/2022 6:51 AM EDT 06/11/2022 7:12 AM EDT Annette Spencer MEDICAL DOCTOR LAB BLOOD ORDERABLES Fi nal Result Performing Organization Address City/State/[facility] [[email or web address]] Co de Phone Number [facility] [address] [phone] * (ABNORMAL) High Sensitivity Troponin I (06/10/2022 7:42 AM EDT) Pathologist [facility] Troponin I High Sensitivity (pg/mL) 74.3(H) 3 - 58.8 pg/mL 06/10/2022 8:[address] [facility] Comment: Troponin Result (pg/mL) ? *Interpretation [...] MD LAB BLOOD ORDERABLES Final Res ult [facility] [address] [phone] * (ABNORMAL) Urinalysis w/Microscopic (06/10/2022 4:35 AM EDT) Color, UA Light Yellow 06/10/2022 5:[address] [facility] Clarity, UA Turbid(A) Clear 06/10/2022 5:[address] [facility] Specific [place], UA 1.012 1.005 - 1.030 06/10/2022 5:[address] [facility] pH, UA 6.5 6.0 - 8.0 06/10/2022 5:[address] [facility] Leukocytes, UA 25 Blake/uL(A) Negative 06/11/19 5:[address] [facility] Nitrite, UA 2+(A) Negative 06/10/2022 5:[address] [facility] Protein, UA Negative Negative 06/10/2022 5:[address] [facility] Glucose, UA Normal Normal 06/10/2022 5:[address] [facility] Ketones, UA Negative Negative 06/10/2022 5:[address] [facility] Urobilinogen, UA Normal Normal 06/10/2022 5:[address] [facility] Bilirubin, UA Negative Negative 06/10/2022 5:[address] [facility] Blood, UA Negative Negative 06/10/2022 5:[address] [facility] RBC, UA 0-2(A) None Seen /HPF 06/10/2022 5:[address] [facility] WBC, UA 6-10(A) None Seen /HPF 06/10/2022 5:[address] [facility] Bacteria, UA 2+(A) None Seen, Trace 06/10/2022 5:[address] [facility] Mucus 1+(A) None Seen 06/10/2022 5:[address] [facility] SQUAMOUS EPITHELIAL 0-2(A) None Seen /HPF 06/10/2022 5:[address] [facility] Specimen Source Urine, Clean Catch 06/10/2022 5:[address] [facility] Urine URINE SPECIMEN COLLECTION, CLEAN CATCH / Unknown 06/10/2022 4:35 AM EDT 06/10/2022 4:41 AM EDT us Rex Pelaez MD URINE ORDERABLES Final Result Performing Organization Address City/State/[facility] [[email or web address]] Co de Phone Number [facility] [address] [phone] * Prothrombin time/INR (06/10/2022 4:22 AM EDT) Protime 10.7 9.2 - 12.0 seconds 06/10/2022 4:[address] [facility] INR 0.98 0.90 - 1.20 06/10/2022 4:[address] [facility] Comment: Recommended therapeutic ranges using International Normalized Ratio (INR) are: INR RANGE 2.0 - 3.0 ? Routine oral anticoagulant therapy 2.5 - 3.5 ? Oral anticoagulant therapy for patients with thromboembolic events on standard doses of Coumadin and those with mechanical heart valves. Blood Venipuncture / Unknown 06/10/2022 4:22 AM EDT 06/10/2022 4:25 AM EDT us Rex Pealez MD LAB BLOOD ORDERABLES Final Res ult Performing Organization Address [facility] de Phone Number [facility] [address] [phone] * (ABNORMAL) High Sensitivity Troponin I (06/10/2022 4:22 AM EDT) Troponin I High Sensitivity (pg/mL) 63.6(H) 3 - 58.8 pg/mL 06/10/2022 4:[address] [facility] Comment: Troponin Result (pg/mL) ? *Interpretation [...] ORDERABLES Final Res ult Performing Organization Address [facility]/State/[facility] [[email or web address]] Co de Phone Number [facility] [address] [place] [address], [facility] [phone] * SARS-CoV2/Influenza/RSV RT-PCR (06/10/2022 4:14 AM EDT) SARS-COV2/RT-P CR Negative Negative DEVICE [id number] 06/10/2022 5:[address] [facility] Influenza A RT-PCR Negative Negative DEVICE ID9 06/10/2022 5:[address] [facility] Influenza B RT-PCR Negative Negative DEVICE ID9 06/10/2022 5:[address] [facility] RSV by RT-PCR Negative Negative DEVICE ID9 06/10/2022 5:[address] [facility] Nasopharyngeal NASOPHARYNGEAL WALL STRUCTURE / Unknown 06/10/2022 4:14 AM EDT 06/10/2022 4:[address] [facility] - 06/10/2022 5:11 AM EDT The [...] the Act. Fact Sheet for Healthcare Providers: https://www.[employer]/Documents/Xpert%20Xpress%20SARS%20CoV-2/Fact%20Sheets/30 2-390 2%83OQLH-ASZ-1%20HEALTHCARE%20PROVIDERS%20FACT%20SHEET.pdf Fact Sheet for Healthcare Patients: https://www.[employer]/Documents/Xpert%20Xpress%20SARS%20Cov-2/Fact%20Sheets/30 2-380 1%70PIWC-IRL-3%20PATIENT%20FACT%20SHEET.pdf us Rex Pelaez MD MICROBIOLOGY - GENERAL ORDERAB LES Final Result [facility] [address] [phone] * ECG 12 lead (06/10/2022 3:57 AM EDT) VENTRICULAR RATE EKG/MIN 67 BPM GE MUSE ATRIAL RATE (MCT) 67 BPM GE MUSE NE Interval 175 ms GE MUSE QRS-INTERVAL (MSEC) 92 ms GE MUSE QT Interval 392 ms GE MUSE QTC Interval 414 ms GE MUSE P [place] 29 degrees GE MUSE R AXIS (MCT) -2 degrees GE MUSE T Wave [place] 56 degrees GE MUSE Sawyer Diagnosis Normal sinus rhythm rSr V1 NORMAL VARIANT ARTIFACT Abnormal ECG When compared with ECG of 10-JUN-2022 00:35, Inferior infarct is now present Confirmed by Wilda STARK, ROSS ([id number]), development editor SUSAN GAONA ([id number]) on 06/10/2022 3:16:55 PM GE MUSE 06/10/2022 3:57 AM EDT 06/10/2022 3:16 PM EDT Rex Pelaez MD ECG ORDERABLES Final Result Performing Organization Address [facility] [[email or web address]] Co de Phone Number GE MUSE * Blood Culture, Peripheral #2 (06/10/2022 3:51 AM EDT) Result No growth in 5 days 06/15/2022 6:[address] [facility] Blood Venipuncture / Unknown 06/10/2022 3:51 AM EDT 06/10/2022 3:51 AM EDT Rex Pelaez MD MICROBIOLOGY - GENERAL ORDERAB LES Final Result Performing Organization Address [facility] [[email or web address]] Co de Phone Number [facility] [address] [phone] * Blood Culture, Peripheral #1 (06/10/2022 3:51 AM EDT) Result No growth in 5 days 06/15/2022 6:[address] [facility] Blood Venipuncture / Unknown 06/10/2022 3:51 AM EDT 06/10/2022 3:51 AM EDT Rex Pelaez MD MICROBIOLOGY - GENERAL ORDERAB LES Final Result Performing Organization Address [facility] [[email or web address]] Co de Phone Number [facility] [address] [phone] * XR chest 1 view portable / [...] size is mildly enlarged. Previously seen left [place]Fer catheter has been removed. There is minimal atelectasis at the lung bases. ??There is no pneumothorax . Procedure Note Carlos Alberto Hu MD - 06/10/2022 PORTABLE CHEST 06/10/2022 3:27 AM HISTORY: Generalized weakness. COMPARISON: May 2008. FINDINGS: The heart size is mildly enlarged. Previously seen left [place]Fer catheter has been removed. There is minimal [...] and dictated by Carlos Alberto Hu MD us Rex Pelaez MD IM CT ORDERABLES Final Result * CT brain [...] - 2.00 ng/mL 06/10/2022 5:[address] [facility] Comment: Lower respiratory tract infection <0.1 [...] 12:36 AM EDT 06/10/2022 12:42 AM EDT Rex Pelaez MD LAB BLOOD ORDERABLES Final Res ult Performing Organization Address [facility] Phone Number [facility] [address] [place] [address] * Magnesium (06/10/2022 12:36 AM EDT) [facility] Magnesium 2.0 1.5 - 2.4 mg/dL 06/10/2022 5:[address] [facility] Blood Venipuncture / Unknown 06/10/2022 12:36 AM EDT 06/10/2022 12:42 AM EDT Rex Pelaez MD LAB BLOOD ORDERABLES Final Res ult Performing Organization Address [facility] de Phone Number [facility] [address] [phone] * (ABNORMAL) PROBNP (06/10/2022 12:36 AM EDT) [facility] ProBNP (pg/mL) 2,394(H) 0 - 450 pg/mL 06/10/2022 5:[address] [facility] Blood Venipuncture / Unknown 06/10/2022 12:36 AM EDT 06/10/2022 12:42 AM EDT Rex Pelaez MD LAB BLOOD ORDERABLES Final Res ult Performing Organization Address [facility] [[email or web address]] Co de Phone Number [facility] [address] [phone] * Lactic Acid with reflex ([place]) (06/10/2022 12:36 AM EDT) Lactic Acid Level (mmol/L) 0.7 0.4 - 2.0 mmol/L 06/10/2022 1:[address] [facility] Comment:If a Lactic Acid Lev el with Reflex if Indicated result is greater than 2.0, a Lactic Acid Level will be ordered to be collected 2 hours after the original collection time. Blood Venipuncture / Unknown 06/10/2022 12:36 AM EDT 06/10/2022 12:42 AM EDT Rex Pelaez MD LAB BLOOD ORDERABLES Final Res ult Performing Organization Address [facility] [[email or web address]] Co de Phone Number [facility] [address] [phone] * (ABNORMAL) Comprehensive metabolic panel (06/10/2022 12:36 AM EDT) Sodium 136 136 - 146 meq/L 06/10/2022 1:[address] [facility] Potassium 4.5 3.5 - 5.1 meq/L 06/10/2022 1:[address] [facility] Chloride 102 102 - 112 meq/L 06/10/2022 1:[address] [facility] CO2 23 21 - 32 meq/L 06/10/2022 1:[address] [facility] Calcium 9.6 8.4 - 10.1 mg/dL 06/10/2022 1:[address] [facility] Glucose 104 74 - 106 mg/dL 06/10/2022 1:[address] [facility] BUN 25(H) 7 - 22 mg/dL 06/10/2022 1:[address] [facility] Creatinine 1.09(H) 0.55 - 1.02 mg/dL 06/10/2022 1:[address] [facility] BUN/Creatinine 23(H) 8 - 20 06/10/2022 1:[address] [facility] Albumin 2.9(L) 3.4 - 5.0 g/dL 06/10/2022 1:[address] [facility] Alkaline Phosphatase 65 27 - 136 U/L 06/10/2022 1:[address] [facility] ALT 24 13 - 56 U/L 06/10/2022 1:[address] [facility] AST 30 5 - 37 U/L 06/10/2022 1:[address] [facility] Total Bilirubin 0.4 0.2 - 1.2 mg/dL 06/10/2022 1:[address] [facility] Protein, Total 6.6 6.4 - 8.2 gm/dL 06/10/2022 1:[address] [facility] Anion Gap 16 9 - 20 06/10/2022 1:[address] [facility] A/G Ratio 0.8(L) 1.1 - 2.5 06/10/2022 1:[address] [facility] Globulin 3.7 1.5 - 4.5 g/dL 06/10/2022 1:[address] [facility] Osmolality Calc 276.7 1:[address] [facility] eGFR (mL/min/1.73m2) 51(L) >=60 mL/min/1.7 3m2 06/10/2022 1:[address] [facility] Comment:ESTIMATED GFR IS NOT ACCURATE CREATININE CLEARANCE IN PREDICTING GLOMERULAR FILTRATION RATE. ESTIMATED GFR IS NOT APPLICABLE FOR DIALYSIS PATIENTS. Blood Venipuncture / Unknown 06/10/2022 12:36 AM EDT 06/10/2022 12:[address] [facility] - 06/10/2022 1:13 AM EDT Specimen [...] MD LAB BLOOD ORDERABLES Final Res ult [facility] [address] [place] [address], [facility] [phone] * (ABNORMAL) CBC with Auto Diff (06/10/2022 12:36 AM EDT) WBC 7.4 4.5 - 10.5 K/??L 06/10/2022 12:[address] [facility] RBC 3.80(L) 3.93 - 5.22 M/??L 06/10/2022 12:[address] [facility] Hemoglobin 12.3 11.2 - 15.7 GM/DL 06/10/2022 12:[address] [facility] Hematocrit 37.1 34.1 - 44.9 % 06/10/2022 12:[address] [facility] MCV 98(H) 79 - 95 fL 06/10/2022 12:[address] [facility] MCH 32.4(H) 25.6 - 32.2 pg 06/10/2022 12:[address] [facility] MCHC 33.2 32.2 - 36.5 GM/DL 06/10/2022 12:[address] [facility] RDW 14.6 11.7 - 14.9 % 06/10/2022 12:[address] [facility] Platelets 197 163 - 369 K/CU MM 06/10/2022 12:[address] [facility] MPV 10.7 9.4 - 12.4 fL 06/10/2022 12:[address] [facility] % Neutros 71 34 - 71 % 06/10/2022 12:[address] [facility] % Lymphs 11(L) 19 - 53 % 06/10/2022 12:[address] [facility] % Monos 13(H) 3 - 9 % 06/10/2022 12:[address] [facility] % Eos 5(H) 0 - 1 % 06/10/2022 12:[address] [facility] % Baso 0 0 - 2 % 06/10/2022 12:[address] [facility] NRBC Absolute 0.00 0 - 0.12 K/ul 06/10/2022 12:[address] [facility] # Neutros 5.25 1.56 - 6.13 K/??L 06/10/2022 12:[address] [facility] # Lymphs 0.79(L) 1.00 - 3.50 K/??L 06/10/2022 12:[address] [facility] # Monos 0.95 0.16 - 1.00 K/??L 06/10/2022 12:[address] [facility] # Eos 0.34 0.00 - 0.80 K/??L 06/10/2022 12:[address] [facility] # Baso 0.03 0.00 - 0.20 K/??L 06/10/2022 12:[address] [facility] Immature Granulocytes-Re lative 0.40 0.00 - 0.60 % 06/10/2022 12:[address] [facility] # IG 0.03 0.00 - 0.05 K/uL 06/10/2022 12:[address] [facility] Blood Venipuncture / Unknown 06/10/2022 12:36 AM EDT 06/10/2022 12:[address] [facility] - 06/10/2022 12:48 AM EDT When [...] ORDERABLES Final Res ult Performing Organization Address City/[facility]/ZIP Co de Phone Number [facility] [address] [phone] * ECG 12 lead (06/10/2022 12:35 AM EDT) VENTRICULAR RATE EKG/MIN 77 BPM GE MUSE ATRIAL RATE (MCT) 77 BPM GE MUSE NE Interval 167 ms GE MUSE QRS-INTERVAL (MSEC) 100 ms GE MUSE QT Interval 371 ms GE MUSE QTC Interval 420 ms GE MUSE P [place] 36 degrees GE MUSE R AXIS (MCT) 3 degrees GE MUSE T Wave [place] 68 degrees GE MUSE Sawyer Diagnosis Normal sinus rhythm RSR' or QR pattern in V1 suggests right ventricular conduction delay or normal variant Abnormal ECG When compared with ECG of 08-DEC-2021 09:43, No significant change was found Reconfirmed by Wilda STARK, ROSS ([id number]), development editor SUSAN GAONA ([id number]) on 06/10/2022 3:18:38 PM GE MUSE 06/10/2022 12:3 5 AM EDT 06/10/2022 3:18 PM EDT us Rex Pelaez MD ECG ORDERABLES Edited Result - Final Performing Organization Address [facility]/ZIP Co de Phone Number GE MUSE * EKG-SCANNED (06/10/2022) Narrative 06/10/2022 Ordered by [...] artery Postsurgical percutaneous transluminal coronary angioplasty status Spondylosis with myelopathy, lumbar region documented in this encounter Admitting Diagnoses Diagnosis [...] 06/17/2022 8:42 PM EDT 30 mLs aspirin EC tablet 81 mg 81 mg Daily, oral, First dose on Mary 06/14/22 at 0900, * DO NOT CRUSH THIS DOSAGE FORM * Given 06/28/2022 8:51 AM EDT 8 1 mg Given 06/27/2022 10:39 AM EDT 81 mg Given 06/26/2022 9:17 AM EDT 81 mg atorvastatin (LIPITOR) tablet 40 mg 40 mg Every Night, oral, First dose on Sat06/24/22 at 2100 Given 06/27/2022 8:46 PM EDT 40 mg Given 06/26/2022 8:24 PM EDT 40 mg Given 06/25/2022 8:23 PM EDT 40 mg bupivacaine (PF) (MARCAINE) injection As needed, Starting on Sat06/12/22 at 1149, Intra-op Given 06/12/2022 11:49 AM EDT 30 mLs Ba ck calcium carbonate (TUMS) chewable tablet 500 mg [...] per protocol, recheck ionized calcium next morning. cetirizine (ZyrTEC) tablet 10mg--PATIENT OWN SUPPLY 10 [...] AM EDT 1,000 Units clopidogreL (PLAVIX) tablet 75 mg 75 mg Daily, oral, First dose on Sat06/15/22 at 0900, Given 06/28/2022 8:51 AM EDT 75 mg Given 06/27/2022 10:39 AM EDT 75 mg Given 06/26/2022 9:17 AM EDT 75 mg dextrose (GLUTOSE) 40 % gel 15 g 15 g Every 15 min PRN, oral, low blood glucose (specify value in prn comments), mild symptomatic hypoglycemia,, Starting on Sat06/13/22 at 1000, Give for blood glucose 60-70 mg/dL if patient is alert and symptomatic. Repeat as ordered until blood glucose above 80 mg/dL. , Pre-op docusate sodium (COLACE) capsule 100 mg 100 mg 2 times daily, oral, First dose (after last modification) on Sat06/11/22 at 2100, * DO NOT CRUSH THIS DOSAGE FORM * Given 06/28/2022 8:51 AM EDT 100 mg Given 06/27/2022 8:46 PM EDT 100 mg Given 06/27/2022 10:40 AM EDT 100 mg enoxaparin (LOVENOX) syringe 40 [...] Given 06/27/2022 10:39 AM EDT 20 mg fluconazole (DIFLUCAN) tablet 200 mg 200 mg Every 72 hours PRN, oral, vag yeast/itching, Starting on Sat06/11/22 at 1026, Caution: Recommend wearing gloves during administration. Although these tablets are chewable by the patient, it is not recommended for emplyees to break or crush. If there is no reasonable alternative, employee should use the closed system pill chip crusher operator. Employees who are , trying to become , or should not handle this medication. Dispose of trace medication (including packaging) in the BLACK waste bin. fluticasone propionate (FLONASE) nasal spray 2 spray [...] Given 06/25/2022 9:47 AM EDT 1,000 mcg lidocaine-EPINEPHrine 1% (XYLOCAINE W/EPI) injection As needed, Starting on Sat06/12/22 at 1023, Intra-op Given 06/12/2022 10:23 AM EDT 10 mLs Ba ck magnesium sulfate IVPB 2 g in sterile [...] PM EDT 20 mg metoprolol tartrate (LOPRESSOR) tablet 25 mg [...] AM EDT Given 06/25/2022 8:25 PM EDT midodrine (PROAMATINE) tablet 2.5 mg 2.5 mg [...] II/On Unit ondansetron (ZOFRAN-ODT) disintegrating tablet 4 mg 4 [...] Given 06/25/2022 8:28 PM EDT 150 mg Saccharomyces boulardii (FLORASTOR) capsule 250 mg 250 mg 2 times daily, oral, First dose on Sat06/11/22 at 1100, Do not crush or open capsule. Must be swallowed whole. Given 06/28/2022 8:52 AM EDT 250 mg Given 06/27/2022 8:46 PM EDT 250 mg Given 06/27/2022 10:39 AM EDT 250 mg sodium phosphate 15 mmol in sodium chloride [...] only. Rate should NOT exceed 7.5 mMol/hr. thrombin (bovine) topical solution As needed, Starting on Sat06/12/22 at 1023, Intra-op Given 06/12/2022 10:23 AM EDT 5,000 Units Back triamcinolone acetonide (KENALOG-40) injection As needed, Starting on Sat06/12/22 at 1205, Intra-op Given 06/12/2022 12:05 PM EDT 40 mg Back vancomycin (VANCOCIN) injection As needed, Starting on Sat06/12/22 at 1023, Intra-op Given 06/12/2022 10:23 AM EDT 1,000 mg Back documented in this encounter Active and Recently Administered Medications Times are shown in EDT. Scheduled Medication Order 06/26/2022 06/27/2022 06/28/2022 aspirin EC tablet 81 mg 81 mg Daily, oral, First dose on Sat06/14/22 at 0900, * DO NOT CRUSH THIS DOSAGE FORM * 0917 (Given - Provider: Corry Rodriguez RN) 1039 (Given - Provider: Dyana Salgado, SHIRLEY) 0851 (Given - Provider: Dyana Salgado, SHIRLEY) atorvastatin (LIPITOR) tablet 40 mg 40 mg Every Night, oral, First dose on Sat06/24/22 at 2100 2023 (Given - Provider: Kezia Gabriel, SHIRLEY) 204 (Given - Provider: Annette Fabian, SHIRLEY) cetirizine (ZyrTEC) tablet 10mg--PATIENT OWN SUPPLY 10 [...] 1048 (Given - Provider: Dyana Salgado, SHIRLEY) 1333 (Given - Provider: Dyana Salgado, SHIRLEY) clopidogreL (PLAVIX) tablet 75 mg 75 mg [...] DO NOT CRUSH THIS DOSAGE FORM * 916 (Given - Provider: Corry Rodriguez RN)2023 (Given - Provider: Kezia Gabriel RN) 1040 (Given - Provider: Dyana Salgado, SHIRLEY)204 (Given - Provider: Annette Fabian RN) 0851 (Given - Provider: Dyana Salgado RN) enoxaparin (LOVENOX) syringe 40 mg 40 mg Every 24 hours scheduled, subcutaneous, First dose on Sat06/16/22 at 1830, Do not administer within 12 hours of epidural or lumbar puncture. Look-Alike/Sound-Ali ke Alert 0916 (Given - Provider: Corry Rodriguez RN) 1041 (Given - Provider: Dyana Salgado RN) 0852 (Given - Provider: Dyana Salgado RN) famotidine (PEPCID) tablet 20 mg 20 mg 2 times daily, oral, First dose on Sat06/22/22 at 1730, Pharmacist to renally dose if CrCl is less than 50 mL/min or on CRRT. 09 (Given - Provider: Corry Rodriguez RN)2023 (Given - Provider: Kezia Gabriel RN) 1039 (Given - Provider: Dyana Salgado, SHIRLEY)204 (Given - Provider: Annette Fabian, SHIRLEY) 0851 (Given - Provider: Dyana Salgado, SHIRLEY) fluticasone propionate (FLONASE) nasal spray 2 spray 2 spray 2 times daily, each nostril, First dose on 06/11/22 at 1100 0929 (Given - Provider: Corry Rodriguez RN)2021 (Given - Provider: Kezia Gabriel RN) 104 (Given - Provider: Dyana Salgado RN)204 (Given - Provider: Annette Fabian, SHIRLEY) 0855 (Given - Provider: Dyana Salgado, SHIRLEY) folic acid (FOLVITE) tablet 1,000 mcg 1,000 mcg Daily, oral, First dose on 06/10/22 at 0900 1007 (Given - Provider: Corry [...] Gabriel RN) 1040 (Given - Provider: Dyana Salgado, SHIRLEY)204 (Given - Provider: Annette Fabian, SHIRLEY) 0851 (Given - Provider: Dyana Salgado RN) miconazole (MICOTIN) 2 % powder Topical, 2 times daily, First dose on Sat06/22/22 at 2100 0929 (Given - Provider: Corry Rodriguez RN)2024 (Given - Provider: Kezia Gabriel, SHIRLEY) 1100 (Not Given - Provider: Dyana Salgado RN - Reason: Medication/ Dose Unavailable)2211 (Not Given - Provider: Annette Fabian RN - Reason: Medication/ Dose Unavailable) 1343 (Not Given - Provider: Dyana Salgado RN - Reason: Patient/family refused) miconazole (MICOTIN) topical cream 2% topical, 2 times daily, First dose on Sat06/22/22 at 2100 0929 (Given - Provider: Corry Rodriguez RN)2025 (Given - Provider: Kezia Gabriel, SHIRLEY) 1100 (Not Given - Provider: Dyana Salgado [...] before bedtime. 1007 (Given - Provider: Corry Rodriguez RN)1727 (Given - Provider: Corry Rodriguez RN) [...] 40 mg Daily, oral, First dose on 06/10/22 at 0900, * DO NOT CRUSH THIS DOSAGE FORM * 0917 (Given - Provider: Corry Rodriguez RN) 1041 (Given - Provider: Dyana Salgado RN) 0853 (Given - Provider: Dyana Salgado, SHIRLEY) polyethylene glycol (GLYCOLAX) packet 17 g 17 g Daily, oral, First dose on 06/10/22 at 0900, Bowel Regimen - for prevention of constipation. 0916 (Given - Provider: Corry Rodriguez RN) 1041 (Given - Provider: Dyana Salgado RN) 0851 (Given - Provider: Dyana Salgado RN) pregabalin (LYRICA) capsule 150 mg 150 mg Every Night, oral, First dose (after last modification) on Sat06/11/22 at 2100 2023 (Given - Provider: Kezia Gabriel RN) 2044 (Given - Provider: Annette Fabian, SHIRLEY) Saccharomyces boulardii (FLORASTOR) capsule 250 mg 250 mg 2 times daily, oral, First dose on Sat06/11/22 at 1100, Do not crush or open capsule. Must be swallowed whole. 09 (Given - Provider: Corry Rodriguez RN)2023 (Given - Provider: Kezia Gabriel RN) 103 (Given - Provider: Dyana Salgado, SHIRLEY)2045 (Given - Provider: Annette Fabian, SHIRLEY) 0852 (Given - Provider: Dyana Salgado RN) PRN Medication Order 06/26/2022 06/27/2022 06/28/2022 acetaminophen (TYLENOL) tablet 1,000 mg 1,000 mg Every 6 hours PRN, oral, fever, Starting on Sat06/13/22 at 1334, Recommended maximum dose of acetaminophen is 4000 mg from all sources in 24 hours For fever only, Phase II/On Unit 0731 (Given - Provider: Dyana Salgado RN) acetaminophen (TYLENOL) tablet 500 mg 500 mg [...] times daily PRN, topical, pain, Starting on Sat06/10/22 at 0848 fluconazole (DIFLUCAN) tablet 200 mg 200 mg Every 72 hours PRN, oral, vag yeast/itching, Starting on Sat06/11/22 at 1026, Caution: Recommend wearing gloves during administration. Although these tablets are chewable by the patient, it is not recommended for emplyees to break or crush. If there is no reasonable alternative, employee should use the closed system pill chip crusher operator. Employees who are , trying to become [...] II/On Unit 2022 (Given - Provider: Kezia Gabriel RN) 2143 (Given - Provider: Annette Fabian, SHIRLEY) potassium chloride SA (K-DUR,KLOR-CON-M) CR tablet 40 [...] mMol/hr. documented in this encounter Care Teams Desk Manager Relationship Specialty [place] [address] [address] [address] PCP - General Family Medicine 06/07/22 06/05/23 documented as of this encounter
--- OUTSIDE RECORDS SUMMARY | 2024-01-26 15:04 | XMS_ITS | Encounter Summary ---
Author Organization [employer] Address [address] [place] [address] Care Team Providers Care Manufacturing Systems Engineer Name Role Phone Estella Hutchinson MD Primary Care Provider [phone] Encounter Details Date Type Department Care Team (Latest Contact Info) Description 12/14/2021 Travel Social History Tobacco Use Types Packs/Day Years Used Date Smoking Tobacco: Never Assessed PRAPARE - Transportation Answer Date Re corded In the past 12 months, has l ack of transportation kept you from medical appointments or from getting medications? No 12/15/2021 Lack of Transportation (Non-Medical) Not on file 12/15/2021 Housing Stability Vital Sign Answer Amrit e Recorded In the last 12 months, was t here a time when you were not able to pay the mortgage or rent on time? No 12/15/2021 In the last 12 months, how many places have you lived? 1 12/15/2021 In the last 12 months, was t here a time when you did not have a steady place to sleep or slept in a [place] facility (including now)? No 12/15/2021 Comments No Sex and Gender Information Value Date Recorded Sex Assigned at Not on file Legal Sex Female 5:40 PM CDT Gender Identity Not on file Sexual Orientation Not on file COVID-19 Exposure Response Date Recorded In the last 10 days, have yo u been in contact with someone who was confirmed or suspected to have Coronavirus/COVID-19? No / Unsure 12/14/2021 7:54 AM EDT documented as of this encounter Plan of Treatment Not on file documented as of this encounter Visit Diagnoses Not on filedocumented in this encounter Care Teams Manufacturing Systems Engineer Relationship Specialty Start Date End Date Estella Hutchinson MD [address] [place] [address] PCP - General General Internal Medicine 02/18/2105/19 documented as of this encounter
--- OUTSIDE RECORDS SUMMARY | 2024-01-26 15:04 | XMS_ITS | Encounter Summary ---
Author Organization [employer] Address [address] [place] [address] Care Team Providers Care Chief Estimator Name Role Phone Estella Hutchinson MD Primary Care Provider [phone]- [phone] Mayank Angel MD Primary Care Provider [phone] Geeta Esteban APRN Primary Care Provider Sumanth Laureano APRN Unavailable [phone] Encounter Details Date Type Department Care Team (Late st Contact Info) Description 09/17/2021 Transcribed Document [facility] Cardiology [address] [facility] [address] [place] [address] Gustabo Duarte MD [address] [facility] [place] [id number] Social History Tobacco Use Types Packs/Day Years Used Date Smoking Tobacco: Never Assessed Comments Unknown Sex and Gender Information Value Date Recorded Sex Assigned at Not on file Legal Sex Female 5:40 PM CDT Gender Identity Not on file Sexual Orientation Not on file documented as of this encounter Miscellaneous Notes * Cerner Conversion Note - Gustabo Duarte MD - 09/17/2021 7:09 PM EDT DATE OF SERVICE: 09/08/2021 LEXISCAN STRESS TEST DIAGNOSIS: Coronary artery disease. Abnormal EKG. READING PHYSICIAN: Dr. Gustabo Duarte. PRIMARY MEDICAID ANALYST: Henrik Mcallister MD. PRIMARY CARE: Estella Hutchinson MD. DESCRIPTION OF PROCEDURE: The patient was brought to the cardiovascular lab and given Lexiscan infusion per protocol. Baseline heart rate 60 beats per minute augmenting to a maximum of 81 beats per minute. Baseline blood pressure 189/79 mmHg augmenting to the same 189/79 mmHg. The patient tolerated the procedure well. No complaints of chest pain or shortness of breath. The patient received 10.8 mCi of technetium-99m IV at rest and a stress dose of 31.7 millicuries of technetium-99m IV at stress, undergoing SPECT imaging after each dose. Images were also gated to evaluate regional wall motion and calculate left ventricular ejection fraction. Baseline ECG reveals sinus rhythm. ECG during stress revealed no ST- or T-wave change to be diagnostic of ischemia. IMPRESSION: Abnormal Lexiscan myocardial perfusion stress test. 1. 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 2. No evidence of transient ischemic dilatation with a TID ratio of 1.12. 3. Stress ECG negative for diagnostic criteria for ischemia. 4. Preserved left ventricular ejection fraction with left ventricular ejection fraction calculated at 58%. 5. Clinical correlation needed. Coronary angiography may be indicated if optimized medical therapy and continued symptoms. /[id number] Gustabo Duarte MD TLG/AQ / TLG / MODL /[id number] documented in this encounter Plan of Treatment Not on file documented as of this encounter Visit Diagnoses Not on filedocumented in this encounter Care Teams Chief Estimator Relationship Specialty Start Date End Date Estella Hutchinson MD [address] [place] [address] PCP - General General Internal Medicine 02/18/21 06/06/22 [place] [address] [place] [address] PCP - General Family Medicine 06/07/22 06/05/23 Geeta Esteban, [employer] [address] [address] PCP - General Nurse Practitioner 06/06/23 Sumanth Laureano, EARNESTINE [address] [facility] [address] [address] Nurse Practitioner Cardiology 06/06/23 documented as of this encounter
--- OUTSIDE RECORDS SUMMARY | 2024-01-26 15:04 | XMS_ITS | Encounter Summary ---
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 LUMBAR SPONDYLOSIS Procedures LA ARTHRODESIS COMBINED TQ 1NTRSPC LUMBAR LA JACOBS FACETEC/FORAMOT DRG ARTHRD LUMBAR 1 VRT SGM LA POSTERIOR SEGMENTAL INSTRUMENTATION 3-6 VRT SEG LA INSJ BIOMCHN DEV INTERVERTEBRAL DSC SPC W/ARTHRD LA STEREOTACTIC COMP ASSIST PROC,SPINAL LAMINECTOMY, SPINE, LUMBAR, WITH FUSION [facility] [address] [place] [address] Phone: tel: fax: [facility] [address] [place] [address] Phone: tel: fax: Referral ID Status Reason Start Date Expiration Date Visits Re quested Visits Authorized [id number] 1 Encounter Details Date Type Department Care Team (Late st Contact Info) Description 12/14/2021 11:00 AM EDT - 12/14/2021 2:30 PM EDT Surgery [facility] Operating Room [address] [place] [address] Edith Morse MD [address] [facility] [address] [place] [address] L3-5, L5-S1 FUSION AND DECOMPRESSION AUGMENTATION WITH ZIEHM Social History Tobacco Use Types Packs/Day Years [...] place to sleep or slept in a senior living (including now)? No 12/15/2021 Comments No Sex [...] Sign Reading Time Taken Comments Blood Pressure - - Pulse 61 12/14/2021 8:32 AM EDT Temperature 36.6 ??C (97.8 ??F) 12/14/2021 8:32 AM ED T Respiratory Rate 16 12/14/2021 8:32 AM EDT Oxygen Saturation 97% 12/14/2021 8:32 AM EDT Inhaled Oxygen Concentration - - Weight 72.6 kg (160 lb) 12/14/2021 8:32 AM EDT Height 160 cm (5' 3 ) 12/14/2021 8:32 AM EDT Body Mass Index 29.34 12/15/2021 5:09 AM EDT documented in this encounter Functional Status * Are you deaf or do you have serious difficulty hearing? Answer Date of Assessment Author No 12/17/2021 2:07 PM Stas Deal RN * Are you blind or do [...] documented in this encounter Discharge Summaries * Britni Mallory Fidel, [facility] - 12/15/2021 11:53 AM EDT Patient Name: Chen Merritt : 1940 Date of Admission: 12/14/2021 Date of Discharge:12/17/2021 Primary Care Physician: No primary care provider on file. Consultations: Discharge Diagnoses: Lumbar adjacent segment disease with spondylolisthesis Reason for Admission: Patient is an 81-year-old female who was seen to us in outpatient setting for discussion of back and lower extremity pain present for some time. Patient had tried and failed multiple modalities of conservative treatment. We reviewed new imaging which did show an issue at L4-5 and L5-S1. Discussed ultimately that we do think we could help her with the surgery as recommended above. Discussed the surgery in length including benefits, risk, downtime, postop care. The patient understood and decided to proceed Hospital Course: On 12/14/2021 the patient was brought to the operating room after informed consent had been obtained and Dr. Edith Salamanca performed an L4-S1 fusion. The patient tolerated the procedure well was transferred to the recovery room On 12/15/2021, postop day 1,Patient doing well this morning. Has some incisional pain but overall no new complaints. Says she does feel like the pain going down the back of her leg does feel better postoperatively. She has voided okay. No bowel movement and no gas yet. She says she tolerated anesthesia well yesterday and did not have any nausea or vomiting.PT/OT todayHave bedside commode for patient so she does not have to go on bedpanContinue with good pain controlIncentive spirometer useContinue JACE drainWe will put in a case management order as patient think she will need rehab placement. On 12/16/2021, postop day 2, patient continued to do well and and is awaiting rehab placement On 12/17/2021 patient reported severe drowsiness with cyclobenzaprine. Robaxin added. Rehab placement today. Studies Performed: None Procedures Performed: Lumbar fusion Your medication list START taking these medications Instructions Comments Quantity Refills methocarbamoL 500 MG tablet Commonly known as: ROBAXIN Take 1 tablet (500 mg total) by mouth 3 (three) times daily as needed (muscle spasms.) for up to 10days. 30 tablet 0 oxyCODONE-acetaminophen 7.5-325 mg per tablet Commonly known as: PERCOCET Take 1 tablet by mouth every 6 (six) hours as needed for Pain for up to 10 days. Max Daily Amount: 4 tablets 30 tablet 0 CONTINUE taking these medications Instructions Comments Quantity Refills aspirin 81 MG EC tablet Notes to patient: HOLD until Post-Op day #5 (December 19, 2021) Take 81 mg by mouth daily. 0 atorvastatin 40 MG tablet Commonly known as: LIPITOR atorvastatin 40 mg tablet TAKE 1 TABLET BY MOUTH AT BEDTIME 0 Centrum Silver 0.4 mg-300 mcg- 250 mcg Tab Generic drug: ubreixun-wcb-VC-lycopen-lutein Take 1 tablet by mouth daily . 0 cetirizine 10 MG tablet Commonly known as: ZyrTEC Take 10 mg by mouth as needed for Allergies. 0 cholecalciferol 25 mcg (1,000 unit) tablet Commonly known as: VITAMIN D3 Take 1,000 Units by mouth daily. 0 Citracal-D3 Gummies 250 mg-12.5 mcg (500 unit) Chew Generic drug: calcium phosphate-vitamin D3 Take 500 mg by mouth 2 (two) times daily. 0 diclofenac 1 % Gel Apply 2 g topically 4 (four) times daily as needed (pain) . 0 dilTIAZem 240 MG 24 hr capsule Commonly known as: CARDIZEM CD diltiazem CD 240 mg capsule,extended release 24 hr TAKE 1 CAPSULE BY MOUTH ONCE DAILY 0 folic acid 1 MG tablet Commonly known as: FOLVITE Take 1,000 mcg by mouth daily 6 days of the week, skip on day of Methotrexate administration.. 0 magnesium gluconate 27.5 mg magne- sium (500 mg) tablet Commonly known as: MAGONATE Take 500 mg by mouth daily. 0 methotrexate 2.5 MG tablet Take 20 mg by mouth once a week. 0 metoprolol tartrate 25 MG tablet Commonly known as: LOPRESSOR metoprolol tartrate 25 mg tablet TAKE 1 TABLET BY MOUTH TWICE DAILY 0 pantoprazole 40 MG tablet Commonly known as: PROTONIX Take 40 mg by mouth daily . 0 pregabalin 50 MG capsule Commonly known as: LYRICA pregabalin 50 mg capsule TAKE 3 CAPSULES BY MOUTH EVERY DAY AT BEDTIME 0 Prolia 60 mg/mL Syrg Generic drug: denosumab Inject 60 mg subcutaneously every 6 (six) months Last dose 11/28/21 . 0 Stool Softener 100 MG capsule Generic drug: docusate sodium Take 300 mg by mouth 2 (two) times daily . 0 traMADoL 50 mg tablet Commonly known as: ULTRAM tramadol 50 mg tablet TAKE 1 TABLET BY MOUTH THREE TIMES DAILY 0 Where to Get Your Medications Information about where to get these medications is not yet available Ask your nurse or doctor about these medications ?? methocarbamoL 500 MG tablet ?? oxyCODONE-acetaminophen 7.5-325 mg per tablet Physical Exam Alert and orient x3 none patient comfortable in bed no incision site dry, clean, intact 5 out of 5 strength of bilateral lower extremities Distally neurovascular intact bilateral lower extremities Discharge Instructions Resume aspirin on POD #5 Discharge Diet: Resume normal diet. Discharge Activity: No bending or twisting No lifting over 10 pounds and keep incision site dry and clean No submerging wound for 1 month. May shower. Discharge Follow UP: Follow-up 1 month with [facility] lateral lumbar x-rays No follow-ups on file. Time Spent: 20 minutes Electronically signed by DU MARCELINO PA-C, 12/15/21, 11:53 AM EDT documented in this encounter Discharge Instructions * Discharge Instructions* Du Marcelino PA-C - 12/15/2021 11:53 AM EDT No bending or twisting No lifting over 10 pounds Keep incision site dry and clean No submerging wound for 1 month No strenuous activities documented in this encounter Medications at Time of Discharge aspirin 81 MG EC tablet Take 1 tablet (81 mg total) by mouth daily. atorvastatin (LIPITOR) 40 MG tablet Take 1 tablet (40 mg total) by mouth nightly. calcium phosphate-vitam in D3 250 mg-12.5 mcg [...] total) by mouth once a week. 10/31/2021 gndbwccv-xfs-IG -lycopen-lutein (Centrum Silver) 0.4 mg-300 mcg- 250 mcg Tab Take 1 tablet by mouth daily . pantoprazole (PROTONIX) 40 MG tablet Take 1 tablet (40 mg total) by mouth daily. methocarbamoL (ROBAXIN) 500 MG tablet Take 1 tablet (500 mg total) by mouth 3 (three) times daily as needed (muscle spasms.) for up to 10 days. 30 tablet 12/17/2021 2 oxyCODONE-aceta minophen (PERCOCET) 7.5-325 mg per tablet Take 1 tablet by mouth every 6 (six) hours as needed for Pain for up to 10 days. Max Daily Amount: 4 tablets 30 tablet 12/17/2021 2 denosumab (Prolia) 60 mg/mL Syrg Inject 1 mL (60 mg total) subcutaneously every 6 (six) months. 3 dilTIAZem (CARDIZEM CD) 240 MG 24 hr capsule diltiazem CD 240 mg capsule,extended release 24 hr TAKE 1 CAPSULE BY MOUTH ONCE DAILY 3 magnesium gluconate (MAGONATE) 27.5 mg magne- sium (500 mg) tablet Take 1 tablet (500 mg total) by mouth in the morning. 3 metoprolol tartrate (LOPRESSOR) 50 MG tablet Take 1 tablet (50 mg total) by mouth in the morning and 1 tablet (50 mg total) before bedtime. 4 pregabalin (LYRICA) 50 MG capsule Take 3 capsules (150 mg total) by mouth nightly. 09/13/2021 3 traMADoL (ULTRAM) 50 mg tablet tramadol 50 mg tablet TAKE 1 TABLET BY MOUTH THREE TIMES DAILY 11/07/2021 3 documented as of this encounter Progress Notes * TESSA Ramires - 12/17/2021 1:33 PM EDTSummarfadi: TRISTEN Final Note Care Coordination Final Discharge Plan Final Discharge Plan PCP referral provided? (P) No Community Referral Discussed with patient: (P) Yes Patient Appealing Discharge: (P) No Does the patient have ability to fill and recive their discharge medications? (P) Yes Patient returning to prior living situation: (P) No Support Systems: (P) Children Discharge Disposition: (P) Other (Comment) (Inpatient rehab) Services Arranged for Discharge: Contact information for follow-up EDITH MORSE MD Specialty: Neurological Surgery, Neurosurgery [address] [facility] [address] Next Steps: Follow up Instructions: Follow-up 1 month with [facility] lateral lumbar x-rays Transporation Provider: (P) [employer] Contact Name: Transportation Provider Phone: Date of youth accommodation support worker: (P) 12/17/21 Time of youth accommodation support worker: (P) 1400 TESSA Martinez * Tahir Scott MD - 12/17/2021 11:22 AM EDT Subjective Sleeping in bed. Reports of LLE spasm. Trialed flexeril which 'knocked patient out' for an entire day. Objective Last Recorded Vitals Blood pressure (!) 162/78, pulse 97, temperature 98.4 ??F (36.9 ??C), resp. rate 16, height 1.6 m (5' 2.99 ), weight 75.1 kg (165 lb 9.1 oz), SpO2 91 %. Physical Exam Sleeping, intermittently wakes up and joins conversation COURTNEY, seemingly full strength [place] Labs: Results for orders placed or performed during the hospital encounter of 12/14/21 (from the past 24 hour(s)) Urinalysis, Reflex Microscopic and Culture If Indicated Status: None Collection Time: 12/16/21 3:54 PM Result Value Ref Range Color, UA Yellow Clarity, UA Clear Clear Specific [place], UA 1.014 1.005 - 1.030 pH, UA 7.0 6.0 - 8.0 Leukocytes, UA Negative Negative Nitrite, UA Negative Negative Protein, UA Negative Negative Glucose, UA Normal Normal Ketones, UA Negative Negative Bilirubin, UA Negative Negative Blood, UA Negative Negative Urobilinogen, UA Normal Normal Specimen Source Urine, Sterile Collection No image results found. Assessment pod#3 L3-5 fusion with L5-S1 foraminotomy Plan D/C to rehab today Ordered Gagan to see if LLE pain can be better controlled, discussed with family that this may still make her somnolent * TESSA Ramires - 12/17/2021 10:03 AM EDTSumnessay: TRISTEN Progress Note CM has sent requested info to [facility] (labs, vitals, O2 SATS & progress note) Pt expected to D/C today to [facility] at 1400 via [employer] w/c van [facility] Spinal Cord Unit for inpt rehab CM will continue to follow * Claus Snell, PT - 12/16/2021 2:46 PM EDT Inpatient Physical Therapy Treatment Patient name: Chen Merritt Treatment Date: 12/16/2021 Start Time : 1349 End Time : 1434 Session Duration (mins): 45 Physical Therapy findings, POC, benefits/risk and goals discussed: with Patient, with Family General/Precautions General Visit Type: Treatment PT Visit Count : 2 Approved by: Ashley WATSON Assisted by: Cassius Arias Patient Disposition Upon Entry: Supine in bed, HOB >30 degrees, Nursing aware, Call Light/Pull Cord in reach, Visitor/Family present LDA: JACE drain, BP cuff, Oxygen, nasal cannula Precautions Weight Bearing Precautions: NA Subjective Patient Subjective Information: Pt reports severe pain in lumbar spine and tenderness in LLE in lateral thigh as well as BLE due to neuropathy. Home Living Vitals Supine 160/87 R arm Auto Sitting 101/63 R arm Auto Indicative of orthostatic hypotension (systolic -59: diastolic -24) Cognition Overall Cognitive Status: Within Functional Limits Arousal/Alertness: Appropriate responses to stimuli Attention Span: Appears intact Memory: Appears intact Orientation Level: Oriented X4 Following Commands: Follows all commands and directions without difficulty Safety Judgment: Good awareness of safety precautions Deficits: Fully aware of deficits Perseveration: Not present Impulsive: Within functional limits Pain Pain Assessment Pain Assessment Scale: 0-10 Pain Score: 8 Treatment Pt assisted supine>sit w modA, sit>stand w Tyson for bed>BSC transfer for clean catch urinesample for RN. Pt with very limited activity and mobility tolerance today due to complaints of L lateral thigh pain. Pt sat on BSC for approximately 15min unsupported w assist for LLE positioning in attempt to decrease LLE pain. Pt then transferred sit>stand from BSC w RW Tyson to adjust BSC height for pt anthropometrics. Pt stood for approx 3min at RW CGA before returning to sit on EOB w Tyson unsupported sitting for JACE drain removal. Pt returned to BS Tyson for second attempt at specimen collection which was successful. Pt then returned BSC>bed w Tyson. Pt assisted maxA sit>supine andtotA for scooting up in bed w draw sheet. Pt found with BP measurements from supine to sit indicative of orthostatic hypotension dropping from 160/87 to 101/63 w positional change. Exercise precaution for orthostatic hypotension when mobilizing this pt. Assessment Problems: Decreased core stability, Decreased functional mobility, Decreased gait tolerance, Decreased strength, Decreased activity tolerance, Balance impairment, Gait impairment, Gait deviations, Postural deviations, Pain Rehab Potential: Good for stated goals Assessment Information: Pt very limited in activity due to severe pain. Pt complaint of pain in LLEis greatest impairment. Plan Continue per POC. Recommendations PT Recommendation: Inpatient Rehab Nurse Communication SHIRLEY Ramirez aware. Start Time/Stop Time Start Time : 1349 End Time : 1434 Session Duration (mins): 45 If pt discharges prior to next therapy session, this note serves as discharge summary. Claus Snell, PT . * Edith Morse MD - 12/16/2021 9:27 AM EDT Subjective Doing much better today. Sister and daughter at bedside Review of Systems minimal pain in left hip Objective Last Recorded Vitals Blood pressure (!) 169/69, pulse 73, temperature 98.8 ??F (37.1 ??C), temperature source Oral, resp. rate 16, height 1.6 m (5' 2.99 ), weight 75.1 kg (165 lb 9.1 oz), SpO2 98 %. Physical Exam Awake alert interactive 465 ND Good strength [place] jace with serosanguineous output Labs: Results for orders placed or performed during the hospital encounter of 12/14/21 (from the past 24 hour(s)) CBC with automated diff Status: Abnormal Collection Time: 12/15/21 11:55 AM Result Value Ref Range WBC 8.2 4.5 - 10.5 K/??L RBC 3.43 (L) 3.93 - 5.22 M/??L Hemoglobin 11.1 (L) 11.2 - 15.7 GM/DL Hematocrit 36.1 34.1 - 44.9 % MCV 105 (H) 79 - 95 fL MCH 32.4 (H) 25.6 - 32.2 pg MCHC 30.7 (L) 32.2 - 36.5 GM/DL RDW 14.6 11.7 - 14.9 % Platelets 150 (L) 163 - 369 K/CU MM MPV 11.6 9.4 - 12.4 fL % Neutros 77 (H) 34 - 71 % % Lymphs 8 (L) 19 - 53 % % Monos 11 (H) 3 - 9 % % Eos 3 (H) 0 - 1 % % Baso 0 0 - 2 % NRBC Absolute 0.00 0 - 0.12 K/ul # Neutros 6.36 (H) 1.56 - 6.13 K/??L # Lymphs 0.69 (L) 1.00 - 3.50 K/??L # Monos 0.87 0.16 - 1.00 K/??L # Eos 0.25 0.00 - 0.80 K/??L # Baso 0.03 0.00 - 0.20 K/??L Immature Granulocytes-Relative 0.40 0.00 - 0.60 % # IG 0.03 0.00 - 0.05 K/uL Basic Metabolic Panel Status: Abnormal Collection Time: 12/15/21 11:55 AM Result Value Ref Range Sodium 142 136 - 146 meq/L Potassium 4.3 3.5 - 5.1 meq/L Chloride 108 102 - 112 meq/L CO2 26 21 - 32 meq/L Anion Gap 12 9 - 20 BUN 14 7 - 22 mg/dL Creatinine 1.00 0.55 - 1.02 mg/dL BUN/Creatinine 14 8 - 20 Glucose 101 74 - 106 mg/dL Calcium 8.9 8.4 - 10.1 mg/dL Osmolality Calc 283.7 eGFR Non (mL/min/1.73m2) 56 (L) >=60 mL/min/1.73m2 eGFR (mL/min/1.73m2) >60 >=60 mL/min/1.73m2 CBC with automated diff Status: Abnormal Collection Time: 12/16/21 8:44 AM Result Value Ref Range WBC 9.2 4.5 - 10.5 K/??L RBC 3.41 (L) 3.93 - 5.22 M/??L Hemoglobin 11.0 (L) 11.2 - 15.7 GM/DL Hematocrit 35.2 34.1 - 44.9 % MCV 103 (H) 79 - 95 fL MCH 32.3 (H) 25.6 - 32.2 pg MCHC 31.3 (L) 32.2 - 36.5 GM/DL RDW 14.3 11.7 - 14.9 % Platelets 149 (L) 163 - 369 K/CU MM MPV 12.1 9.4 - 12.4 fL % Neutros 78 (H) 34 - 71 % % Lymphs 9 (L) 19 - 53 % % Monos 11 (H) 3 - 9 % % Eos 2 (H) 0 - 1 % % Baso 0 0 - 2 % NRBC Absolute 0.00 0 - 0.12 K/ul # Neutros 7.19 (H) 1.56 - 6.13 K/??L # Lymphs 0.78 (L) 1.00 - 3.50 K/??L # Monos 0.98 0.16 - 1.00 K/??L # Eos 0.21 0.00 - 0.80 K/??L # Baso 0.01 0.00 - 0.20 K/??L Immature Granulocytes-Relative 0.50 0.00 - 0.60 % # IG 0.05 0.00 - 0.05 K/uL Basic Metabolic Panel Status: Abnormal Collection Time: 12/16/21 8:44 AM Result Value Ref Range Sodium 139 136 - 146 meq/L Potassium 3.7 3.5 - 5.1 meq/L Chloride 107 102 - 112 meq/L CO2 28 21 - 32 meq/L Anion Gap 8 (L) 9 - 20 BUN 13 7 - 22 mg/dL Creatinine 0.80 0.55 - 1.02 mg/dL BUN/Creatinine 16 8 - 20 Glucose 148 (H) 74 - 106 mg/dL Calcium 8.9 8.4 - 10.1 mg/dL Osmolality Calc 280.4 eGFR Non (mL/min/1.73m2) >60 >=60 mL/min/1.73m2 eGFR (mL/min/1.73m2) >60 >=60 mL/min/1.73m2 No image results found. Assessment pod#2 L3-5 fusion with L5-S1 foraminotomy Plan d/c jace lyrica 150 mg at bedtime D/c flexeril Cont with pt/ot [facility] tomorrow Discharge Planning: [facility] tomorrow * Miladys Romeo RN - 12/15/2021 6:27 PM EDT Care Coordination Initial Assessment Met with pt, sister, and daughter Alma Castaneda ([phone]) at bedside to discuss DCP. They agree to rehab and chose [facility] for acute rehab. Referral sent and d/w liaison Gloria. Pt has a bed on spinal cord unit on Sunday 12/17 if medically and transportation available if she is unable to get intoa car. CM will follow. Home Environment Type of Residence: Private residence Living Arrangements: Other (Comment) (Pt lives in an apartments downstairs of her daughters home) Support System: Children Home Caregiver: Accessibility Issues: None Current Agency Name & Number: Patient returning to prior living situation? No Compliance: Patient has high rate of compliance with treatment. Motivation: Patient has high desire for learning/change. Affect/Behavior: Appropriate Prior/Regular Transportation: Self Current Transportation Agency Information: Needs assistance with transportation:Yes ADL Screen Current Sensory Deficits: Patient's Vision Adequate to Safely complete ADLs:Yes Patient's Judgement Adequate to safely completed ADLs: Yes Dressing: Independent Current Home Care Services: Current Home Care Services: None Assistive DevicesYes Patient's Judgement Adequate to Safely Complete Daily Activities: Yes Dressing: Independent Current Lines, Tubes: Special/Community Services: Transition Needs Expected Discharge Date: 12/17/2021 Home or Post Acute Services Needed: Post acute facilities (Rehab/SNF/etc) Does the patient have the ability to fill and receive their discharge medications: Yes Discharge plan discussed: The discharge plan was discussed with patient. Discharge Barriers: (Medical readiness) Type of Assistive Devices Needed for Discharge: Other (Comment) Patient Discharge Goal: Inpatient Rehab Facility Mandated Reporting: Not applicable PT/OT/DYE TUB TENDER Recommendations PT Recommendations: Inpatient Rehab OT Recommendations: Inpatient Rehab Consult DYE TUB TENDER Recommendations: Miladys Romeo RN * Phoebe Chapman, PT - 12/15/2021 11:52 AM EDT Inpatient Physical Therapy Initial Evaluation Patient name: Chen Merritt Evaluation Date: 12/15/2021 Start Time : 1126 End Time : 1151 Session Duration (mins): 25 Physical Therapy findings, POC, benefits/risk and goals discussed: with Patient, with Family Total Duration (mins): 30 - Additional time for chart review, clinical reasoning, and interdisciplinary discussion. Pt is a 81 y.o. 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 Past Medical History: Diagnosis Date ??? Arthritis ??? Coronary artery disease ??? Hypertension ??? Psoriatic arthritis (HCC) ??? Psoriatic arthritis (HCC) Past Surgical History: Procedure Laterality Date ??? CHOLECYSTECTOMY ??? LAMINECTOMY,LUMBAR W/FUSION N/A 12/14/2021 Procedure: L3-5, L5-S1 FUSION AND DECOMPRESSION AUGMENTATION WITH ZIEHM; Surgeon: Edith Morse MD; Location: [facility]; Service: Neurosurgery; Laterality: N/A; [place] 0830. 3 HRS (R). PASS. AIRO. PRE CERT STARTED, ??? open heart 4 bypass General/Precautions General PT Received On: 12/15/21 Visit Type: Initial Evaluation PT Visit Count : 1 PT Treatment Status: Active Approved by: SHIRLEY Regan session Co - Treated by: OT Patient Disposition Upon Entry: Supine in bed, Side rails up, Call Light/Pull Cord in reach, Visitor/Family present LDA: JACE drain Precautions Brace: (needs brace; ordered but not in room ) Spine Precautions: Yes Subjective Patient Subjective Information: pt agreed to PTx eval Home Living Lives With: Alone Receives Help From: (daughter lives in upstairs) Type of Home: House Home Layout: One level Home Equipment Available: 4-wheeled walker Functional Status Prior to Onset: independent ADL/IADL Status Prior to Onset: independent Vitals Vitals BP: (!) 75/32 Vitals Comments: BP taken EOB; low BP and pt returned supine. RN aware Oxygen Therapy O2 Device: Nasal cannula O2 Flow Rate (L/min): 2 L/min Cognition Overall Cognitive Status: Within Functional Limits Comments: pt follows simple commands w/ cues, reinforcement, and increased time Pain Pain Assessment Pain Assessment Scale: 0-10 Pain Score: 3 P: Relieved By:: Repositioned R: Pain Location: Back lower Evaluation Cognition Overall Cognitive Status: Within Functional Limits Comments: pt follows simple commands w/ cues, reinforcement, and increased time Basic Strength/ROM/Tone Assessment RLE: WFL LLE: WFL Bed Mobility Rolling: Min assist to right Seated Scooting: Min assist to right, Min assist to left Supine to Sit: Min assist, 2-person assist Bed Mobility Comments: via log rolling; increased time Transfers Sit to Stand: Minimal, 2-person assist, Rolling walker used, Gait belt used Stand to Sit: Minimal assistance, Rolling walker used, Gait belt Used Chair to Bed Transfers: Minimal assistance, 2-person assist, Rolling walker used, Gait belt used Bedside Commode Transfers: Minimal assistance, 2-person assist, Rolling walker used, Gait belt used Gait / Mobility Gait / Mobility Comment: pt w/ low BP after BSC transfer. Further mobility/ambulation deferred Balance Sitting Balance: CGA Standing Balance: Tyson and RWx Activity Tolerance Activity Tolerance: decreased; pain-limited; fatigued Treatment Pt supine in bed upon arrival and able to answer questions appropriately. She was educated on spinal precautions and log rolling technique. Pt requires increased time for all mobility tasks. Pt transitioned to sitting EOB via log rolling w/ minAx2. Pt reported increased dizziness and sat for increased time. Pt then stood w/ minAx2, RWx and gait belt. [place] [facility] [place] and sat for increased time. Once ready, pt stood from B[facility] w/ minAx2, RWx and gait belt. Pt required totalA for pericare. Pt reported increased dizziness and transferred to EOB w/ minAx2. BP taken sitting EOB and at75/32mmHg. Pt returned supine and repositioned in bed. RN notified. Pt left w/ all needs met and call light in reach. Family in room. Assessment Problems: Decreased core stability, Decreased functional mobility, Decreased gait tolerance, Decreased strength, Decreased activity tolerance, Balance impairment, Gait impairment, Gait deviations, Restricted ROM, Pain Rehab Potential: Good for stated goals Assessment Information: pt was seen for PTx eval and tolerated the session fairly well. Pt presented w/ increased lethargy, low BP, and low back pain this date, limiting her full participation in theeval. She currently presents w/ the impairments listed above and requires assistance w/ all mobility tasks and transfers. Pt is considered an increased fall risk and reports living alone. PTx recommends rehab at discharge. Plan PT Treatment Plan: Therapeutic Exercise, Therapeutic Activity, Transfer training, Gait training, Stair training, Balance training, Home Program, ROM, Strengthening, Co-Treat with OT, Pain Management,Postural Re-education, Neuromuscular Re-ed, Stretching, Body Mechanics Instruction, Patient/Family/C aregiver Education, DME Recommendations PT Frequency/Duration: 5x/week; 14 days Recommendations PT Recommendation: Inpatient Rehab Goals Other #1 Goal: pt will transfer supine to sitting EOB via log roll w/ Supervision Other #2 Goal: pt will ambulate 100' w/ Sup and RWx Other #3 Goal: pt will perform sit>stand transfer w/ Sup and RWx Plan & Goals Discussed: Yes - with patient, Yes - with family member or other caregiver Target Date: 12/29/21 Education Learning Needs: Rehabilitation, Safety, Disease / condition, Self care / ADL, Home Program, Precautions / Contraindications Readiness to Learn / Barriers : Fatigue / pain / physical See Education Activity for full details Nurse Communication Nurse Communication: SHIRLEY MENON'jovani session; notified of pt presenting w/ decreased BP during treatment. Patient Disposition Upon Leaving: Supine in bed, Side rails up, Call Light/Pull Cord in reach, Visitor/Family present If this pt discharges prior to next session, this note will act as pt's discharge summary. Start Time/Stop Time Start Time : 1126 End Time : 1151 Session Duration (mins): 25 Total Duration (mins): 30 Adela Sandhu PT . * Marisel Avendano, OTR - 12/15/2021 11:50 AM EDT Inpatient Occupational Therapy Initial Evaluation Patient name: Chen Merritt Evaluation Date: 12/15/2021 OT Start Time : 1126 OT End Time : 1150 Session Duration (mins): 24 Total time 29 minutes, including chart review, nursing collaboration, and clinical reasoning. Pt is a 81 y.o. 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 Past Medical History: Diagnosis Date ??? Arthritis ??? Coronary artery disease ??? Hypertension ??? Psoriatic arthritis (HCC) ??? Psoriatic arthritis (HCC) Past Surgical History: Procedure Laterality Date ??? CHOLECYSTECTOMY ??? LAMINECTOMY,LUMBAR W/FUSION N/A 12/14/2021 Procedure: L3-5, L5-S1 FUSION AND DECOMPRESSION AUGMENTATION WITH ZIEHM; Surgeon: Edith Morse MD; Location: [facility]; Service: Neurosurgery; Laterality: N/A; [place] 0830. 3 HRS (R). PASS. AIRO. PRE CERT STARTED, ??? open heart 4 bypass General/Precautions General OT Received On: 12/15/21 Visit Type: Initial Evaluation OT Visit Count : 1 Approved by: SHIRLEY Malik Co - Treated by: PT Patient Disposition Upon Entry: Supine in bed, Visitor/Family present Precautions Precaution Comment: order for brace, not in room at time of eval Home Living Lives With: Alone Type of Home: House Home Layout: One level Home Equipment Available: 4-wheeled walker, Straight cane Functional Status Prior to Onset: Independent ADL/IADL Status Prior to Onset: Independent Subjective Patient Subjective Information: Pt agreeable Pain Pain Assessment Pain Assessment Scale: 0-10 Pain Score: 3 R: Pain Location: Back lower Vitals BP 75/32 Cognition Overall Cognitive Status: Within Functional Limits Arousal/Alertness: Inconsistent responses to stimuli Orientation Level: Oriented X4 Evaluation Basic Strength/ROM/Tone Assessment RUE: WFL, 3/5 strength LUE: WFL, 3/5 strength ADL Eating Assistance: Set up Grooming Assistance: Minimal Bathing Assistance: Moderate UE Dressing Assistance: Minimal LE Dressing Assistance: Maximal Toileting Assistance: Maximal Functional Assistance: ModerateBed Mobility Rolling: Min assist to left Supine to Sit: Min assist, 2-person assist Sit to Supine: Max assist Transfers Sit to Stand: Minimal, 2-person assist Stand to Sit: Minimal assistance, 2-person assist Bed to Chair Transfers: Moderate assistance Chair to Bed Transfers: Moderate assistance Balance Sitting Balance: good Standing Balance: fair Treatment Pt supine upon arrival. Pt min A to roll to side and complete log roll for bed mobility. [place] [facility] [place] (2 ppl for safety) using RWx. Pt max A for kristina care after toileting. Pt attempted to take steps toward chair, but having increased unsteadiness, transferred to bed with mod A. Pt's BP taken and found to be 75/32. Pt quickly returned to supine and repositioned in bed. Nsg informed of pt's BP. Pt left supine with needs met and CL In reach. Assessment Problems: Difficulty with ADL's, Impaired functional mobility, Impaired transfer skills, Impaired IADLs, Fall risk Rehab Potential: Good for stated goals Plan OT Treatment Plan: ADL training, Functional mobility/transfer training, Energy conservation instruction, Adaptive equipment training, Strengthening OT Frequency/Duration: 5x/week Plan & Goals Discussed: Yes - with patient, Yes - with family member or other caregiver Recommendations OT Recommendation: Inpatient Rehab Consult Goals Goals: Lower body dressing, Grooming, Toileting, Bathing, Transfer / Functional Mobility Lower Body Dressing Goal: min A with AE Grooming Goal: setup Toileting Goal: min A Bathing Goal: min A with AE Transfer / Functional Mobility Goal: SBA for transfers with RWx Target Date: 12/29/21 Nurse Communication Nurse Communication: RN informed of patient's BP Patient Disposition Upon Leaving: Supine in bed, Call Light/Pull Cord in reach, Visitor/Family present If patient discharges prior to next treatment session, this note serves as the patient's discharge summary. Start Time/Stop Time OT Start Time : 1126 OT End Time : 1150 Session Duration (mins): 24 Marisel Juan Alberto, OTR/L * Du Marcelino PA-C - 12/15/2021 8:14 AM EDT Subjective Patient doing well this morning. Has some incisional pain but overall no new complaints. Says she does feel like the pain going down the back of her leg does feel better postoperatively. She has voided okay. No bowel movement and no gas yet. She says she tolerated anesthesia well yesterday and did not have any nausea or vomiting Review of Systems As reported above Objective Last Recorded Vitals Blood pressure (!) 144/65, pulse 65, temperature 98.6 ??F (37 ??C), resp. rate 16, height 1.6 m (5'2.99 ), weight 75.1 kg (165 lb 9.1 oz), SpO2 98 %. Physical Exam Alert and refractory Patient comfortably bed Incision site dry, clean, intact JACE drain attached and put out 150 cc overnight. Bulb with moderate amount of sanguinous fluid 5-5 strength throughout bilateral lower extremities Labs: Results for orders placed or performed during the hospital encounter of 12/14/21 (from the past 24 hour(s)) Type and Screen Status: None Collection Time: 12/14/21 9:15 AM Result Value Ref Range ABO/Rh A Positive Antibody Screen Negative HISTCHK HIST CHECK PERFORMED No image results found. Assessment Postop day 1 L4-S1 fusion Plan PT/OT today Have bedside commode for patient so she does not have to go on bedpan Continue with good pain control Incentive spirometer use Continue JACE drain We will put in a case management order as patient think she will need rehab placement. Discharge Planning: Goal would be rehab whenever bed is available Cosigned by Edith Morse MD at 12/18/2021 2:48 PM EDT Associated attestation - Edith Morse MD - 12/18/2021 1:48 PM CDT I Edith Morse reviewed the notes, assessments, and/or procedures performed by Du Marcelino, I CONCUR/with her/his documentation of Chen Merritt. documented in this encounter H&P Notes * Shanta Sutherlandr - 12/14/2021 9:45 AM EDT HPI History Of Present Illness Chen Merritt is a 81 y.o. female presenting with back pain and ileana LE pain/weakness for 1.5 years, worse recently. Pt is here for L3-5 poss L5-S1 fusion and decompression with Dr. Morse. Past Medical History She has a past medical history of Arthritis, Coronary artery disease, Hypertension, Psoriatic arthritis (HCC), and Psoriatic arthritis (HCC). Surgical History She has a past surgical history that includes Cholecystectomy and open heart. Social History She has no history on file for tobacco use, alcohol use, and drug use. Family History Her family history is not on file. Allergies Bactrim [Sulfamethoxazole-Trimethoprim], Macrobid [Nitrofurantoin Monohyd/M- Cryst], Morphine, and Sulfa (Sulfonamide Antibiotics) Medications Current Outpatient Medications Medication Instructions ??? aspirin 81 mg, Oral, Daily ??? atorvastatin (LIPITOR) 40 MG tablet atorvastatin 40 mg tablet TAKE 1 TABLET BY MOUTH AT BEDTIME ??? calcium carbonate 1,250 mg, Oral, 2 times daily with breakfast and dinner ??? cetirizine (ZYRTEC) 10 mg, Oral, As needed ??? cholecalciferol (VITAMIN D3) 1,000 Units, Oral, Daily ??? denosumab (XGEVA) 120 mg, Subcutaneous ??? diclofenac 1 % Gel diclofenac 1 % topical gel APPLY 2 GRAMS TOPICALLY 3-4 TIMES DAILY TO THE AFFECTED AREA(S) ??? dilTIAZem (CARDIZEM CD) 240 MG 24 hr capsule diltiazem CD 240 mg capsule,extended release 24 hr TAKE 1 CAPSULE BY MOUTH ONCE DAILY ??? docusate sodium (Stool Softener) 100 MG capsule Stool Softener ??? folic acid (FOLVITE) 1,000 mcg, Oral, Daily ??? magnesium gluconate (MAGONATE) 27.5 mg magne- sium (500 mg) tablet 500 mg, Oral, Daily ??? methotrexate 20 mg, Oral, Weekly ??? methylcellulose (CitruceL, sucrose,) oral powder Citrucel (sucrose) oral powder ??? metoprolol tartrate (LOPRESSOR) 25 MG tablet metoprolol tartrate 25 mg tablet TAKE 1 TABLET BY MOUTH TWICE DAILY ??? hrozzfmo-gad-GM-lycopen-lutein (Centrum Silver) 0.4 mg-300 mcg- 250 mcg Tab Centrum Silver 0.4 mg-300 mcg-250 mcg tablet ??? pantoprazole (PROTONIX) 40 MG tablet pantoprazole 40 mg tablet,delayed release ??? pregabalin (LYRICA) 50 MG capsule pregabalin 50 mg capsule TAKE 3 CAPSULES BY MOUTH EVERY DAY AT BEDTIME ??? probenecid-colchicine 500-0.5 mg per tablet 1 tablet, Oral, Daily ??? traMADoL (ULTRAM) 50 mg tablet tramadol 50 mg tablet TAKE 1 TABLET BY MOUTH THREE TIMES DAILY Review of Systems Review of Systems Constitutional: Negative. HENT: Positive for hearing loss. Eyes: Negative. Respiratory: Negative. Cardiovascular: Negative. Gastrointestinal: Negative. Endocrine: Negative. Genitourinary: Negative. Musculoskeletal: Positive for back pain. Skin: Negative. Allergic/Immunologic: Negative. Neurological: Positive for weakness. Hematological: Negative. Psychiatric/Behavioral: Negative. Last Recorded Vitals Pulse 61, temperature 97.8 ??F (36.6 ??C), temperature source Tympanic, resp. rate 16, height 1.6 m(5' 3 ), weight 72.6 kg (160 lb), SpO2 97 %. Physical Exam Constitutional: Appearance: Normal appearance. HENT: Head: Normocephalic. Ears: Comments: [place] Cardiovascular: Rate and Rhythm: Normal rate and regular rhythm. Pulses: Normal pulses. Heart sounds: Normal heart sounds. No murmur heard. No friction rub. No gallop. Pulmonary: Effort: Pulmonary effort is normal. Breath sounds: Normal breath sounds. Musculoskeletal: Cervical back: Normal range of motion. Comments: Painful ROM back, ileana LE weakness, uses walker Skin: General: Skin is warm and dry. Neurological: General: No focal deficit present. Mental Status: She is alert and oriented to person, place, and time. Psychiatric: Mood and Affect: Mood normal. Behavior: Behavior normal. Diagnostic Results No visits with results within 1 Day(s) from this visit. Latest known visit with results is: No results found for any previous visit. No image results found. Assessment & Plan Active Problems: There are no active Hospital Problems. Pt to proceed with surgery, plan to stay 2 nights. Associated attestation - Ross Hess MD - 12/14/2021 12:04 PM CDT I saw this patient. reviewed the notes, assessments, and/or procedures performed by TAP GRINDER I concur with her/his documentation of Chen Merritt. documented in this encounter Consult Notes * Bear Alejo MD - 12/15/2021 9:23 AM EDT Consults History of Present Illness: Chen Merritt is a 81 y.o. female presenting with advanced spondylolisthesis of the lumbar spine with severe neural foraminal stenosis and L5-S1 radiculopathy. She was recommended surgical intervention after failing conservative treatment. She underwent an L3-L4, L4-L5, and L5-S1 posterolateral arthrodesis and fusion per Dr. Morse 12/14/21 without complications. She will be followed perioperatively while hospitalized for medical management. Hypotensive episode with presyncope noted this morning. Denies chest pain, pressure, palpitations Past Medical History She has a past medical history of Arthritis, Coronary artery disease, Hypertension, Psoriatic arthritis (HCC), and Psoriatic arthritis (HCC). Past Surgical History She has a past surgical history that includes Cholecystectomy and open heart. Family History: Her family history is not on file. Allergies: Bactrim [Sulfamethoxazole-Trimethoprim], Macrobid [Nitrofurantoin Monohyd/M- Cryst], Morphine, and Sulfa (Sulfonamide Antibiotics) Medications: Medications Prior to Admission Medication Sig Dispense Refill Last Dose ??? aspirin 81 MG EC tablet Take 81 mg by mouth daily. Past Week at Unknown time ??? atorvastatin (LIPITOR) 40 MG tablet atorvastatin 40 mg tablet TAKE 1 TABLET BY MOUTH AT BEDTIME 12/14/2021 at Unknown time ??? calcium carbonate 1250 MG capsule Take 1,250 mg by mouth 2 (two) times daily with breakfast anddinner. 12/13/2021 at Unknown time ??? cetirizine (ZyrTEC) 10 MG tablet Take 10 mg by mouth as needed for Allergies. 12/13/2021 at Unknown time ??? cholecalciferol (VITAMIN D3) 25 mcg (1,000 unit) tablet Take 1,000 Units by mouth daily. 12/13/2021 at Unknown time ??? denosumab (XGEVA) 120 mg/1.7 mL (70 mg/mL) injection Inject 120 mg subcutaneously. 12/13/2021 at Unknown time ??? diclofenac 1 % Gel diclofenac 1 % topical gel APPLY 2 GRAMS TOPICALLY 3-4 TIMES DAILY TO THE AFFECTED AREA(S) 12/13/2021 at Unknown time ??? dilTIAZem (CARDIZEM CD) 240 MG 24 hr capsule diltiazem CD 240 mg capsule,extended release 24 hr TAKE 1 CAPSULE BY MOUTH ONCE DAILY 12/14/2021 at Unknown time ??? docusate sodium (Stool Softener) 100 MG capsule Stool Softener 12/13/2021 at Unknown time ??? folic acid (FOLVITE) 1 MG tablet Take 1,000 mcg by mouth daily. 12/13/2021 at Unknown time ??? magnesium gluconate (MAGONATE) 27.5 mg magne- sium (500 mg) tablet Take 500 mg by mouth daily. 12/13/2021 at Unknown time ??? methotrexate 2.5 MG tablet Take 20 mg by mouth once a week. 12/13/2021 at Unknown time ??? methylcellulose (CitruceL, sucrose,) oral powder Citrucel (sucrose) oral powder 12/13/2021 at Unknown time ??? metoprolol tartrate (LOPRESSOR) 25 MG tablet metoprolol tartrate 25 mg tablet TAKE 1 TABLET BY MOUTH TWICE DAILY 12/14/2021 at Unknown time ??? czmocjky-kll-EQ-lycopen-lutein (Centrum Silver) 0.4 mg-300 mcg- 250 mcg Tab Centrum Silver 0.4 mg-300 mcg-250 mcg tablet 12/13/2021 at Unknown time ??? pantoprazole (PROTONIX) 40 MG tablet pantoprazole 40 mg tablet,delayed release 12/14/2021 at Unknown time ??? pregabalin (LYRICA) 50 MG capsule pregabalin 50 mg capsule TAKE 3 CAPSULES BY MOUTH EVERY DAY AT BEDTIME 12/14/2021 at Unknown time ??? probenecid-colchicine 500-0.5 mg per tablet Take 1 tablet by mouth daily. 12/13/2021 at Unknowntime ??? traMADoL (ULTRAM) 50 mg tablet tramadol 50 mg tablet TAKE 1 TABLET BY MOUTH THREE TIMES DAILY 12/14/2021 at Unknown time Review of Systems Vitals Blood pressure (!) 150/62, pulse 73, temperature 98.6 ??F (37 ??C), resp. rate 16, height 1.6 m (5'2.99 ), weight 75.1 kg (165 lb 9.1 oz), SpO2 98 %. Physical Exam Frail elderly WF in no distress; pleasant, cooperative, fair historian; sister at bedside nc/at, eomi, PEERL, pink conjunctiva, moist mucous membranes, no thyromegaly or cervical lymphadenopathy =expansion b/l without wheezes rales or rhonchi non-displaced PMI, reg s1, s2 ABD is soft non-tender, non-distended, norm bowel sounds skin warm, dry without rashes ext: without edema, no calf tenderness neuro: cn 2-12 intact; no gross motor -sensory deficits psych: normal affect, good mood Assessment & Plan Principal Problem: Lumbar adjacent segment disease with spondylolisthesis S/P L3-L4, L4-L5, and L5-S1 posterolateral arthrodesis and fusion per Dr. Morse 12/14/21 Hypotensive episode Hx arthritis Hx coronary artery disease Hx Hypertension Hx Psoriatic arthritis Monitor HTN; add PRN's, hold parameters bowel regimen incentive spirometer PT/OT DVT prophylaxis: Pain management deferred to surgeon will monitor hb/hct daily for signs of ongoing acute blood loss will monitor bun/cr daily for signs of dehydration, prerenal azotemia will monitor for signs/symptoms of post-op wound infection or hospital acquired infectious process resume outpatient medication regimen for comorbidities Electronically signed by Bear Alejo MD 12/15/2021 at 9:23 AM documented in this encounter Miscellaneous Notes * Op Note - Edith Morse MD - 12/14/2021 4:19 PM EDT DATE OF PROCEDURE: 12/14/2021 PREOPERATIVE DIAGNOSES: L3-L4 and L4-5 spondylolisthesis with severe neural foraminal stenosis of L5-S1 and radiculopathy. POSTOPERATIVE DIAGNOSES: L3-L4 and L4-5 spondylolisthesis with severe neural foraminal stenosis of L5-S1 and radiculopathy. PROCEDURES PERFORMED: 1. L3-L4, L4-L5, and L5-S1 posterolateral arthrodesis and fusion. 2. L3-L4, L4-L5 posterior segmental instrumentation using Viper Prime cortical fix screws. 3. L3-L4, L5 vertebral augmentation using the Viper Prime fenestrated screws and Confidence cement. 4. L3-L4, L4-L5 bilateral laminectomies with left L5-S1 foraminotomy for nerve root decompression. 5. Use of morselized bone allograft with bone enhancer. 6. Use of morselized bone autograft harvested from laminectomy. 7. Use of intraoperative fluoroscopy. 8. Use of spinal navigation. ANESTHESIA: General endotracheal anesthesia. ESTIMATED BLOOD LOSS: 100 mL. SPECIMENS: None. DRAINS: 15-[place] Tobin-Cordova drain. COMPLICATIONS: None acute. INDICATIONS FOR PROCEDURE: Ms. Chen Merritt is an 81-year-old woman with a long history of low back pain with progressive lower extremity pain, who had a significant listhesis at L3-L4, L4-L5 and severe neural foraminal stenosis on the left at L5-S1. She had exhausted all conservative measures. She was referred to our clinic for further evaluation. I discussed the risks and benefits of surgery, and she elected to proceed. DESCRIPTION OF PROCEDURE: After the patient identified in the preoperative area by name and medical record number, consent was noted to be in chart. She was taken back to the operating room. General endotracheal anesthesia was initiated by the Anesthesiology Service. She was placed on the operative table in a prone position. All pressure points were padded. SCD's were placed. The L3, L4, and L5 levels were palpated. The patient was prepped and draped in the usual sterile fashion. A time-out was performed and it was correct. Confirmation of perioperative antibiotics was given. The reference array was placed on the buttock and held in place using Steri-Strips. We then performed a CT spin using the same navigation device. We then fused with a Curve system. We then located our posterior superior iliac crest and placed our 2 percutaneous pins. We then located the L3-L4 and L5-S1 junction. We gautam a midline. Injection of lidocaine with epinephrine. Incision was opened sharply with a 15 blade. It was carried down to the soft tissue using Bovie electrocautery. Self-retaining retractors were used to facilitate our exposure. We performed a subperiosteal dissection bilaterally and used the navigation to locate the area of entry point for the pedicle of L3, L4, L5, and the posterior bulging osteophyte at L5-S1 on the left. We then placed our more definitive array on the percutaneous pins and performed another CT spin using the same instrument. It was then fused with the Curve system. We then used the navigation to place our Viper Prime cortical fix screws using navigator drill and to decorticate the outer pedicle bone on the right at L3, L4, and L5. We then did this bilaterally. We then used a navigator tap to advance down on the outer pedicle. We then used a 6 x 50 mm Viper Prime cortical fenestrated screw and placed these at L3, L4, and L5 bilaterally. We then performed another CT spin using the same instrument to ensure adequate positioning. We then sized our appropriate rods, but prior to doing so, we then used the Confidence cement to augment the L3, L4, L5 vertebral body and screw. We took fluoroscopic x-rays to ensure adequate position. We then sized it as 90 mm shelia across the screw heads. These were secured down using set screws and torqued down for added security. We then began the decompression portion of the procedure. We used Le[place]ell rongeur to dissect the spinous process of L3, L4, and L5. We drilled it down to an eggshell fashion using M8 drill bit. We exposed the thecal sac in the epidural space. We decompressed the lateral recesses. We worked aggressively to expose the exiting nerve root at L5-S1, where it was completely skeletonized. Copious irrigation ensued. No CSF leak was encountered. We placed FloSeal in the epidural space. We placed vancomycin powder. We used an AMA drill bit to decorticate the posterior and lateral gutters at L3-L4, L4-L5, and L5-S1. We laid our bone graft with a combination of the morselized bone allograft with bone enhancer as well as the autograft harvested from laminectomy. We then tunneled the drain. We then closed the deep muscular layers using interrupted 0 Vicryl suture. The fascial layer was closed using interrupted 0 Vicryl sutures in a watertight fashion. Marcaine was injected. We closed the deep tissue layers using interrupted 2-0 Vicryl suture and this was followed by running Monocryl suture, Dermabond, and a dressing. All sharps and sponges were correct at the end of the case. All sharp, needle, sponge counts were correct at the end of the case. No intraoperative complications were noted. Du Marcelino was present and scrubbed and involved in the entirety of this procedure. The patient was transferred to the PACU in stable condition. /[id number] Edith Morse MD NST/AQ / NST / AQS /[id number] documented in this encounter Plan of Treatment Not on file documented as of this encounter Procedures Procedure Name Priority Date/Time Associated Diagnosis Comments URINALYSIS, REFLEX MICROSCOPIC AND CULTURE IF INDICATED Routine 12/16/2021 3:54 PM EDT CBC W/ AUTO DIFF Routine 12/16/2021 8:44 AM EDT BASIC METABOLIC PANEL Routine 12/16/2021 8:44 AM EDT CBC W/ AUTO DIFF Routine 12/15/2021 11:5 5 AM EDT BASIC METABOLIC PANEL Routine 12/15/2021 11:55 AM EDT FL < 1 HOUR Routine 12/14/2021 2:10 PM EDT LA ARTHRODESIS COMBINED TQ 1NTRSPC LUMBAR 12/14/2021 11:13 AM EDT Spondylosis with myelopathy, lumbar region TYPE AND SCREEN ([place] BKR) Routine 12/14/2021 9:15 AM EDT EKG-SCANNED 12/14/2021 documented in this encounter Results * Urinalysis, Reflex Microscopic and Culture If Indicated (12/16/2021 3:54 PM EDT) Color, UA Yellow 12/16/2021 5:41 PM EDT [facility] Clarity, UA Clear Clear 12/16/2021 5:41 PM EDT [facility] Specific [place], UA 1.014 1.005 - 1.030 12/16/2021 5:41 PM EDT [facility] pH, UA 7.0 6.0 - 8.0 12/16/2021 5:41 PM EDT [facility] Leukocytes, UA Negative Negative 12/16/2021 5:41 PM EDT [facility] Nitrite, UA Negative Negative 12/16/2021 5:41 PM EDT [facility] Protein, UA Negative Negative 12/16/2021 5:41 PM EDT [facility] Glucose, UA Normal Normal 12/16/2021 5:41 PM EDT [facility] Ketones, UA Negative Negative 12/16/2021 5:41 PM EDT [facility] Bilirubin, UA Negative Negative 12/16/2021 5:41 PM EDT [facility] Blood, UA Negative Negative 12/16/2021 5:41 PM EDT [facility] Urobilinogen, UA Normal Normal 12/16/2021 5:41 PM EDT [facility] Specimen Source Urine, Sterile Collection 12/16/2021 5:41 PM EDT [facility] Urine STERILE URINE SPECIMEN CONTAINER / Unknown 12/16/2021 3:54 PM EDT 12/16/2021 3:56 PM EDT us Bear Alejo MD URINE ORDERABLES Final Res ult [facility] [address] [phone] * (ABNORMAL) Basic Metabolic Panel (12/16/2021 8:44 AM EDT) Sodium 139 136 - 146 meq/L 12/16/2021 9:15 AM EDT [facility] Potassium 3.7 3.5 - 5.1 meq/L 12/16/2021 9:15 AM EDT [facility] Chloride 107 102 - 112 meq/L 12/16/2021 9:15 AM EDT [facility] CO2 28 21 - 32 meq/L 12/16/2021 9:15 AM EDT [facility] Anion Gap 8(L) 9 - 20 12/16/2021 9:15 AM EDT [facility] BUN 13 7 - 22 mg/dL 12/16/2021 9:15 AM EDT [facility] Creatinine 0.80 0.55 - 1.02 mg/dL 12/16/2021 9:15 AM EDT [facility] BUN/Creatinine 16 8 - 20 12/16/2021 9:15 AM EDT [facility] Glucose 148(H) 74 - 106 mg/dL 12/16/2021 9:15 AM EDT [facility] Calcium 8.9 8.4 - 10.1 mg/dL 12/16/2021 9:15 AM EDT [facility] Osmolality Calc 280.4 9:15 AM EDT [facility] eGFR Non (mL/min/1.73m2) >60 >=60 mL/min/1.7 3m2 12/16/2021 9:15 AM EDT [facility] eGFR (mL/min/1.73m2) >60 >=60 mL/min/1.7 3m2 12/16/2021 9:15 AM EDT [facility] Comment:eGFR of <60 suggests chronic kidney disease if found over a 3 month period of time. eGFR <15 indicates renal failure. Blood Venipuncture / Unknown 12/16/2021 8:44 AM EDT 12/16/2021 8:52 AM EDT us Bear Alejo MD LAB BLOOD ORDERABLES Final Result [facility] [address] [phone] * (ABNORMAL) CBC with automated diff (12/16/2021 8:44 AM EDT) WBC 9.2 4.5 - 10.5 K/??L 12/16/2021 8:58 AM EDT [facility] RBC 3.41(L) 3.93 - 5.22 M/??L 12/16/2021 8:58 AM EDT [facility] Hemoglobin 11.0(L) 11.2 - 15.7 GM/DL 12/16/2021 8:58 AM EDT [facility] Hematocrit 35.2 34.1 - 44.9 % 12/16/2021 8:58 AM EDT [facility] MCV 103(H) 79 - 95 fL 12/16/2021 8:58 AM EDT [facility] MCH 32.3(H) 25.6 - 32.2 pg 12/16/2021 8:58 AM EDT [facility] MCHC 31.3(L) 32.2 - 36.5 GM/DL 12/16/2021 8:58 AM EDT [facility] RDW 14.3 11.7 - 14.9 % 12/16/2021 8:58 AM EDT [facility] Platelets 149(L) 163 - 369 K/CU MM 12/16/2021 8:58 AM EDT [facility] MPV 12.1 9.4 - 12.4 fL 12/16/2021 8:58 AM EDT [facility] % Neutros 78(H) 34 - 71 % 12/16/2021 8:58 AM EDT [facility] % Lymphs 9(L) 19 - 53 % 12/16/2021 8:58 AM EDT [facility] % Monos 11(H) 3 - 9 % 12/16/2021 8:58 AM EDT [facility] % Eos 2(H) 0 - 1 % 12/16/2021 8:58 AM EDT [facility] % Baso 0 0 - 2 % 12/16/2021 8:58 AM EDT [facility] NRBC Absolute 0.00 0 - 0.12 K/ul 12/16/2021 8:58 AM EDT [facility] # Neutros 7.19(H) 1.56 - 6.13 K/??L 12/16/2021 8:58 AM EDT [facility] # Lymphs 0.78(L) 1.00 - 3.50 K/??L 12/16/2021 8:58 AM EDT [facility] # Monos 0.98 0.16 - 1.00 K/??L 12/16/2021 8:58 AM EDT [facility] # Eos 0.21 0.00 - 0.80 K/??L 12/16/2021 8:58 AM EDT [facility] # Baso 0.01 0.00 - 0.20 K/??L 12/16/2021 8:58 AM EDT [facility] Immature Granulocytes-Re lative 0.50 0.00 - 0.60 % 12/16/2021 8:58 AM EDT [facility] # IG 0.05 0.00 - 0.05 K/uL 12/16/2021 8:58 AM EDT [facility] Blood Venipuncture / Unknown 12/16/2021 8:44 AM EDT 12/16/2021 8:52 AM EDT [facility] - 12/16/2021 8:58 AM EDT When CBC w/ Auto Diff is ordered the lab will add a Manual Differential as a quality check at no additional charge if: Lymphocytes greater than seventy five percent with normal or increased WBC Monocytes greater than Fifteen percent Basophil greater than four percent Bands >10% or several immature myeloids are seen on scan Blast? Flag noted Atypical Lymph flag noted Bear Alejo MD LAB BLOOD ORDERABLES Final Result [facility] [address] [phone] * (ABNORMAL) Basic Metabolic Panel (12/15/2021 11:55 AM EDT) Sodium 142 136 - 146 meq/L 12/15/2021 1:00 PM EDT [facility] Potassium 4.3 3.5 - 5.1 meq/L 12/15/2021 1:00 PM EDT [facility] Chloride 108 102 - 112 meq/L 12/15/2021 1:00 PM EDT [facility] CO2 26 21 - 32 meq/L 12/15/2021 1:00 PM EDT [facility] Anion Gap 12 9 - 20 12/15/2021 1:00 PM EDT [facility] BUN 14 7 - 22 mg/dL 12/15/2021 1:00 PM EDT [facility] Creatinine 1.00 0.55 - 1.02 mg/dL 12/15/2021 1:00 PM EDT [facility] BUN/Creatinine 14 8 - 20 12/15/2021 1:00 PM EDT [facility] Glucose 101 74 - 106 mg/dL 12/15/2021 1:00 PM EDT [facility] Calcium 8.9 8.4 - 10.1 mg/dL 12/15/2021 1:00 PM EDT [facility] Osmolality Calc 283.7 1:00 PM EDT [facility] eGFR Non (mL/min/1.73m2) 56(L) >=60 mL/min/1.7 3m2 12/15/2021 1:00 PM EDT [facility] eGFR (mL/min/1.73m2) >60 >=60 mL/min/1.7 3m2 12/15/2021 1:00 PM EDT [facility] Comment:eGFR of <60 suggests chronic kidney disease if found over a 3 month period of time. eGFR <15 indicates renal failure. Blood Venipuncture / Unknown 12/15/2021 11:55 AM EDT 12/15/2021 12:29 PM EDT Bear Alejo MD LAB BLOOD ORDERABLES Final Result [facility] [address] [phone] * (ABNORMAL) CBC with automated diff (12/15/2021 11:55 AM EDT) WBC 8.2 4.5 - 10.5 K/??L 12/15/2021 12:53 PM EDT [facility] RBC 3.43(L) 3.93 - 5.22 M/??L 12/15/2021 12:53 PM EDT [facility] Hemoglobin 11.1(L) 11.2 - 15.7 GM/DL 12/15/2021 12:53 PM EDT [facility] Hematocrit 36.1 34.1 - 44.9 % 12/15/2021 12:53 PM EDT [facility] MCV 105(H) 79 - 95 fL 12/15/2021 12:53 PM EDT [facility] MCH 32.4(H) 25.6 - 32.2 pg 12/15/2021 12:53 PM EDT [facility] MCHC 30.7(L) 32.2 - 36.5 GM/DL 12/15/2021 12:53 PM EDT [facility] RDW 14.6 11.7 - 14.9 % 12/15/2021 12:53 PM EDT [facility] Platelets 150(L) 163 - 369 K/CU MM 12/15/2021 12:53 PM EDT [facility] MPV 11.6 9.4 - 12.4 fL 12/15/2021 12:53 PM EDT [facility] % Neutros 77(H) 34 - 71 % 12/15/2021 12:53 PM EDT [facility] % Lymphs 8(L) 19 - 53 % 12/15/2021 12:53 PM EDT [facility] % Monos 11(H) 3 - 9 % 12/15/2021 12:53 PM EDT [facility] % Eos 3(H) 0 - 1 % 12/15/2021 12:53 PM EDT [facility] % Baso 0 0 - 2 % 12/15/2021 12:53 PM EDT [facility] NRBC Absolute 0.00 0 - 0.12 K/ul 12/15/2021 12:53 PM EDT [facility] # Neutros 6.36(H) 1.56 - 6.13 K/??L 12/15/2021 12:53 PM EDT [facility] # Lymphs 0.69(L) 1.00 - 3.50 K/??L 12/15/2021 12:53 PM EDT [facility] # Monos 0.87 0.16 - 1.00 K/??L 12/15/2021 12:53 PM EDT [facility] # Eos 0.25 0.00 - 0.80 K/??L 12/15/2021 12:53 PM EDT [facility] # Baso 0.03 0.00 - 0.20 K/??L 12/15/2021 12:53 PM EDT [facility] Immature Granulocytes-Re lative 0.40 0.00 - 0.60 % 12/15/2021 12:53 PM EDT [facility] # IG 0.03 0.00 - 0.05 K/uL 12/15/2021 12:53 PM EDT [facility] Blood Venipuncture / Unknown 12/15/2021 11:55 AM EDT 12/15/2021 12:29 PM EDT Narrative [facility] - 12/15/2021 12:53 PM EDT When CBC w/ Auto Diff is ordered the lab will add a Manual Differential as a quality check at no additional charge if: Lymphocytes greater than seventy five percent with normal or increased WBC Monocytes greater than Fifteen percent Basophil greater than four percent Bands >10% or several immature myeloids are seen on scan Blast? Flag noted Atypical Lymph flag noted Bear Alejo MD LAB BLOOD ORDERABLES Final Result [facility] [address] [phone] * Fluoroscopy less than 1 hour (12/14/2021 2:10 PM EDT) Anatomical Region Laterality Modality X-Ray 12/19/2021 7:55 AM EDT Impressions 12/19/2021 8:28 AM EDT Please see postoperative report. Narrative 12/19/2021 8:28 AM EDT FLUOROSCOPY WITH FILMS HISTORY: back pain Fluoroscopic guidance was provided under the direction of the clinical service for intraoperative procedure. Multiple digital spot radiographs were obtained. Fluoroscopy time was 3 minutes, 13 seconds Procedure Note Hermes Sanchez MD - 12/19/2021 FLUOROSCOPY WITH FILMS HISTORY: back pain Fluoroscopic guidance was provided under the direction of the clinical service for intraoperative procedure. Multiple digital spot radiographs were obtained. Fluoroscopy time was 3 minutes, 13 seconds IMPRESSION: Please see postoperative report. Edith Morse MD IMG FLUOROSCOPY ORDERABLES Fi nal Result * Type and Screen (12/14/2021 9:15 AM EDT) ABO/Rh A Positive 12/14/2021 9:08 AM EDT [facility] ([place]) Antibody Screen Negative 12/14/2021 9:08 AM EDT [facility] ([place]) HISTCHK HIST CHECK PERFORMED 12/14/2021 9:08 AM EDT [facility] [place] Blood Venipuncture / Unknown 12/14/2021 9:15 AM EDT 12/14/2021 9:32 AM EDT us Donta Martinez MD [facility] TEST ORDERABLES Final Result [facility] ([place]) [address] [place] [address], [facility] [phone] * EKG-SCANNED (12/14/2021) Narrative 12/14/2021 Ordered by an unspecified provider. us Default Scanning Provider SCAN ORDERS Final Result documented in this encounter Visit Diagnoses Diagnosis Spondylosis with myelopathy, lumbar region documented in this encounter Admitting Diagnoses Diagnosis Lumbar adjacent segment disease with spondylolisthesis documented in this encounter Administered Medications Inactive Administered Medications - up to 3 most recent administrations Medication Order MAR Action Action Date Dose Rate Site acetaminophen (TYLENOL) tablet 1,000 mg 1,000 mg Every 6 hours PRN, oral, mild pain (1-3), moderate pain (4-6), and severe pain, Starting on Mary 12/14/21 at 1436, Recommended maximum dose of acetaminophen is 4000 mg from all sources in 24 hours, Phase II/On Unit Given 12/17/2021 10:47 AM EDT 1,000 mg Given 12/16/2021 8:53 PM EDT 1,000 mg Given 12/16/2021 1:34 PM EDT 1,000 mg bacitracin topical ointment 500 units/g topical, 2 times daily, First dose (after last modification) on 12/17/21 at 0900, Apply to left groin area rash type Given 12/17/2021 10:47 AM EDT 1 g bupivacaine (PF) (MARCAINE) injection As needed, Starting on Mary 12/14/21 at 1155, Intra-op Given 12/14/2021 11:55 AM EDT 30 mLs Ba ck cloNIDine HCL (CATAPRES) tablet 0.2 mg 0.2 mg Every 6 hours PRN, oral, hypertension (sbp greater than 160), Starting on Sat12/15/21 at 0951, dilTIAZem (CARDIZEM CD) 24 hr capsule 240 mg 240 mg Daily, oral, First dose on Mary 12/14/21 at 1500, Do Not Crush or Chew Antihypertensive - Check BP - Check Pulse Given 12/17/2021 10:46 AM EDT 240 mg Given 12/16/2021 8:34 AM EDT 240 mg Given 12/15/2021 8:33 AM EDT 240 mg diphenhydrAMINE (BENADRYL) tablet 25 mg 25 mg Every 6 hours PRN, oral, itching, Starting on Mary 12/14/21 at 1436, Phase II/On Unit docusate sodium (COLACE) capsule 100 mg 100 mg 2 times daily, oral, First dose on Sat12/15/21 at 1030, * DO NOT CRUSH THIS DOSAGE FORM * Given 12/17/2021 10:48 AM EDT 100 mg Given 12/16/2021 9:05 PM EDT 100 mg Given 12/16/2021 8:35 AM EDT 100 mg famotidine (PF) injection 20 mg 20 mg 2 times daily, intravenous, First dose on Mary 12/14/21 at 1500, Dilute with NS to 5 mL or 10 mL. IV push over 2-3 minutes Pharmacist to renally dose if CrCl is less than 50 mL/min or on CRRT., Phase II/On Unit Given 12/17/2021 10:4 8 AM EDT 20 mg Given 12/16/2021 8:48 PM EDT 20 mg Given 12/16/2021 8:33 AM EDT 20 mg folic acid (FOLVITE) tablet 1,000 mcg 1,000 mcg Daily, oral, First dose on Mary 12/14/21 at 1500 Given 12/17/2021 10:00 AM EDT 1,000 mcg Given 12/16/2021 8:35 AM EDT 1,000 mcg Given 12/15/2021 8:34 AM EDT 1,000 mcg hydrALAZINE (APRESOLINE) injection 10 mg 10 mg Every 6 hours PRN, intravenous, HTN for SBP >180, Starting on Sat12/15/21 at 0951, Hold if SBP < 100 mmHg, DBP < 50 mmHg, or patient is on pressor. lidocaine-EPINEPHrine 1% (XYLOCAINE W/EPI) injection As needed, Starting on Mary 12/14/21 at 1155, Intra-op Given 12/14/2021 11:55 AM EDT 30 mLs loratadine (CLARITIN) tablet 10 mg 10 mg Daily, oral, First dose on 12/16/21 at 1330 Given 12/17/2021 10:48 AM EDT 10 mg magnesium gluconate (MAGONATE) 27.5 mg magne- sium (500 mg) tablet 500 mg 500 mg Daily, oral, First dose on Mary 12/14/21 at 1500 Given 12/17/2021 9:00 AM EDT 500 mg Given 12/16/2021 10:51 AM EDT 500 mg methocarbamoL (ROBAXIN) tablet 500 mg 500 mg 3 times daily PRN, oral, muscle spasms, Starting on 12/17/21 at 1119 Given 12/17/2021 1:46 PM EDT 500 mg metoprolol tartrate (LOPRESSOR) tablet 25 mg 25 mg 2 times daily, oral, First dose on Mary 12/14/21 at 1500, Hold for systolic BP < 90 mmHg or for HR < 50 BPM Given 12/17/2021 10:48 AM EDT 25 mg Given 12/16/2021 8:52 PM EDT 25 mg Given 12/16/2021 8:34 AM EDT 25 mg multivitamin (THERAGRAN) tablet 1 tablet 1 tablet Daily, oral, First dose on Mary 12/14/21 at 1730, Formulary sub for Centrum Silver Given 12/17/2021 10:46 AM EDT 1 tablet Given 12/16/2021 8:35 AM EDT 1 tablet Given 12/15/2021 8:34 AM EDT 1 tablet ondansetron (ZOFRAN) tablet 4 mg 4 mg Every 8 hours PRN, oral, nausea, vomiting, Starting on Mary 12/14/21 at 1436, 1st line. If inadequate response within 60 minutes, proceed to next-line agent for same PRN reason or contact provider if no further options ordered., Phase II/On Unit ondansetron PF (ZOFRAN) injection 4 mg 4 mg Every 8 hours PRN, intravenous, nausea, vomiting, Starting on Mary 12/14/21 at 1436, Give IV if patient is unable to take orally. 1st line. If inadequate response within 60 minutes, proceed to next-line agent for same PRN reason or contact provider if no further options ordered. For IV push, give over 2 - 5 minutes., Phase II/On Unit phenazopyridine (PYRIDIUM) tablet 95 mg 95 mg 3 times daily with meals, oral, First dose on 12/16/21 at 1330, For 3 days Given 12/17/2021 12:00 PM EDT 95 mg Given 12/17/2021 8:00 AM EDT 95 mg Given 12/16/2021 6:36 PM EDT 95 mg polyethylene glycol (GLYCOLAX) packet 17 g 17 g Daily, oral, First dose on Sat12/15/21 at 1030, DISSOLVE IN 8 OUNCES OF WATER, JUICE, SODA, COFFEE OR TEA Given 12/17/2021 10:49 AM EDT 17 g Given 12/16/2021 8:32 AM EDT 17 g pregabalin (LYRICA) capsule 150 mg 150 mg Daily, oral, First dose (after last modification) on 12/16/21 at 2000 Given 12/16/2021 8:52 PM EDT 150 mg simethicone (MYLICON) chewable tablet 80 mg 80 mg Every 6 hours PRN, oral, flatulence, Starting on Sat12/15/21 at 0951 thrombin (bovine) topical solution As needed, Starting on Mary 12/14/21 at 1155, Intra-op Given 12/14/2021 11:55 AM EDT 5,000 Units Back traMADoL (ULTRAM) tablet 50 mg 50 mg Every 6 hours PRN, oral, mild pain (1-3), Starting on Mary 12/14/21 at 1443 Given 12/17/2021 1:46 PM EDT 50 mg Given 12/17/2021 6:32 AM EDT 50 mg Given 12/16/2021 10:32 PM EDT 50 mg vancomycin (VANCOCIN) injection As needed, Starting on Mary 12/14/21 at 1155, Intra-op Given 12/14/2021 11:55 AM EDT 2,000 mg Ba ck documented in this encounter Active and Recently Administered Medications Times are shown in EDT. Scheduled Medication Order 12/15/2021 12/16/2021 12/17/2021 bacitracin topical ointment 500 units/g topical, 2 times daily, First dose (after last modification) on 12/17/21 at 0900, Apply to left groin area rash type 1047 (Given - Provider: Shanda Betancourt RN) dilTIAZem (CARDIZEM CD) 24 hr capsule 240 mg 240 mg Daily, oral, First dose on Mary 12/14/21 at 1500, Do Not Crush or Chew Antihypertensive - Check BP - Check Pulse 0833 (Given - Provider: Helena Womack RN) 0834 (Given - Provider: Ashley Joiner, SHIRLEY) 1046 (Given - Provider: Shanda Betancourt, SHIRLEY) docusate sodium (COLACE) capsule 100 mg (CANCELED) 100 mg 2 times daily, oral, First dose on Mary 12/14/21 at 1500, * DO NOT CRUSH THIS DOSAGE FORM * 0834 (Given - Provider: Helena Womack RN) docusate sodium (COLACE) capsule 100 mg 100 mg 2 times daily, oral, First dose on Sat12/15/21 at 1030, * DO NOT CRUSH THIS DOSAGE FORM * 1030 (Due)2140 (Given - Provider: Lianna Chilel RN) 0835 (Given - Provider: Ashley Joiner RN)210 (Given - Provider: Rosaline Teran) 1048 (Given - Provider: Shanda Betancourt RN) famotidine (PF) injection 20 mg 20 mg 2 times daily, intravenous, First dose on Mary 12/14/21 at 1500, Dilute with NS to 5 mL or 10 mL. IV push over 2-3 minutes Pharmacist to renally dose if CrCl is less than 50 mL/min or on CRRT., Phase II/On Unit 0831 (Given - Provider: Helena Womack RN)214 (Given - Provider: Lianna Chilel RN) 0833 (Given - Provider: Ashley Joiner RN)204 (Given - Provider: Rosaline Teran) 1048 (Given - Provider: Shanda Betancourt, SHIRLEY) folic acid (FOLVITE) tablet 1,000 mcg 1,000 mcg Daily, oral, First dose on Mary 12/14/21 at 1500 0834 (Given - Provider: Helena Womack RN) 0835 (Given - Provider: Ashley Joiner, SHIRLEY) 1000 (Given - Provider: Shanda Betancourt, SHIRLEY) loratadine (CLARITIN) tablet 10 mg 10 mg Daily, oral, First dose on Sat12/16/21 at 1330 1727 (Not Given - Provider: Ashley Joiner RN - Reason: Patient/family refused) 1048 (Given - Provider: Shanda Betancourt, SHIRLEY) magnesium gluconate (MAGONATE) 27.5 mg magne- sium (500 mg) tablet 500 mg 500 mg Daily, oral, First dose on Mary 12/14/21 at 1500 0900 (Due) 1051 (Given - Provider: Ashley Joiner RN) 0900 (Given - Provider: Shanda Betancourt RN) metoprolol tartrate (LOPRESSOR) tablet 25 mg 25 mg 2 times daily, oral, First dose on Mary 12/14/21 at 1500, Hold for systolic BP < 90 mmHg or for HR < 50 BPM 0835 (Given - Provider: Helena Womack RN)2142 (Given - Provider: Lianna Chilel RN) 0834 (Given - Provider: Ashley Joiner RN)2052 (Given - Provider: Rosaline Teran) 1048 (Given - Provider: Shanda Betancourt, SHIRLEY) multivitamin (THERAGRAN) tablet 1 tablet 1 tablet Daily, oral, First dose on Mary 12/14/21 at 1730, Formulary sub for Centrum Silver 0834 (Given - Provider: Helena Womack RN) 0835 (Given - Provider: Ashley Joiner RN) 1046 (Given - Provider: Shanda Betancourt, SHIRLEY) phenazopyridine (PYRIDIUM) tablet 95 mg 95 mg 3 times daily with meals, oral, First dose on 12/16/21 at 1330, For 3 days 1330 (Not Given - Provider: Ashley Joiner RN - Reason: Medication/ Dose Unavailable)1836 (Given - Provider: Ashley Joiner RN) 0800 (Given - Provider: Shanda Betancourt, SHIRLEY)1200 (Given - Provider: Shanda Betancourt RN) polyethylene glycol (GLYCOLAX) packet 17 g 17 g Daily, oral, First dose on Sat12/15/21 at 1030, DISSOLVE IN 8 OUNCES OF WATER, JUICE, SODA, COFFEE OR TEA 1030 (Due) 0832 (Given - Provider: Ashley Joiner RN) 1049 (Given - Provider: Shanda Betancourt RN) pregabalin (LYRICA) capsule 150 mg 150 mg Daily, oral, First dose (after last modification) on 12/16/21 at 2000 2051 (Given - Provider: Rosaline Teran) pregabalin (LYRICA) capsule 75 mg (CANCELED) 75 mg Daily, oral, First dose on Mary 12/14/21 at 1500 0834 (Given - Provider: Helena Womack, SHIRLEY) 1048 (Not Given - Provider: Ashley Joiner RN - Reason: Per MD Order) PRN Medication Order 12/15/2021 12/16/2021 12/17/2021 acetaminophen (TYLENOL) tablet 1,000 mg 1,000 mg Every 6 hours PRN, oral, mild pain (1-3), moderate pain (4-6), and severe pain, Starting on Mary 12/14/21 at 1436, Recommended maximum dose of acetaminophen is 4000 mg from all sources in 24 hours, Phase II/On Unit 214 (Given - Provider: Lianna Chilel RN) 1334 (Given - Provider: Ashley Joiner RN)2052 (Given - Provider: Rosaline Teran) 1047 (Given - Provider: Shanda Betancourt RN) cloNIDine HCL (CATAPRES) tablet 0.2 mg 0.2 mg Every 6 hours PRN, oral, hypertension (sbp greater than 160), Starting on Sat12/15/21 at 0951, cyclobenzaprine (FLEXERIL) tablet 5 mg (CANCELED) 5 mg 3 times daily PRN, oral, muscle spasms, Starting on Mary 12/14/21 at 1436, Phase II/On Unit 0833 (Given - Provider: Helena Womack RN) diphenhydrAMINE (BENADRYL) tablet 25 mg 25 mg Every 6 hours PRN, oral, itching, Starting on Mary 12/14/21 at 1436, Phase II/On Unit hydrALAZINE (APRESOLINE) injection 10 mg 10 mg Every 6 hours PRN, intravenous, HTN for SBP >180, Starting on Sat12/15/21 at 0951, Hold if SBP < 100 mmHg, DBP < 50 mmHg, or patient is on pressor. methocarbamoL (ROBAXIN) tablet 500 mg 500 mg 3 times daily PRN, oral, muscle spasms, Starting on Sat12/17/21 at 1119 1346 (Given - Provider: Shanda Betancourt, SHIRLEY) ondansetron (ZOFRAN) tablet 4 mg(Linked Group 1) 4 mg Every 8 hours PRN, oral, nausea, vomiting, Starting on Mary 12/14/21 at 1436, 1st line. If inadequate response within 60 minutes, proceed to next-line agent for same PRN reason or contact provider if no further options ordered., Phase II/On Unit ondansetron PF (ZOFRAN) injection 4 mg(Linked Group 1) 4 mg Every 8 hours PRN, intravenous, nausea, vomiting, Starting on Mary 12/14/21 at 1436, Give IV if patient is unable to take orally. 1st line. If inadequate response within 60 minutes, proceed to next-line agent for same PRN reason or contact provider if no further options ordered. For IV push, give over 2 - 5 minutes., Phase II/On Unit simethicone (MYLICON) chewable tablet 80 mg 80 mg Every 6 hours PRN, oral, flatulence, Starting on Sat12/15/21 at 0951 traMADoL (ULTRAM) tablet 50 mg 50 mg Every 6 hours PRN, oral, mild pain (1-3), Starting on Mary 12/14/21 at 1443 0832 (Given - Provider: Helena Womack RN)1721 (Given - Provider: Abby Liu RN) 2232 (Given - Provider: Rosaline Teran) 0632 (Given - Provider: Rosaline Teran)1346 (Given - Provider: Shanda Betancourt RN) Linked Groups Order Group 1: ondansetron (ZOFRAN) tablet 4 mgJump to med 4 mg Every 8 hours PRN, oral, nausea, vomiting, Starting on Mary 12/14/21 at 1436, 1st line. If inadequate response within 60 minutes, proceed to next-line agent for same PRN reason or contact provider if no further options ordered., Phase II/On Unit Or ondansetron PF (ZOFRAN) injection 4 mgJump to med 4 mg Every 8 hours PRN, intravenous, nausea, vomiting, Starting on Mary 12/14/21 at 1436, Give IV if patient is unable to take orally. 1st line. If inadequate response within 60 minutes, proceed to next-line agent for same PRN reason or contact provider if no further options ordered. For IV push, give over 2 - 5 minutes., Phase II/On Unit documented in this encounter Care Teams Hand Mounter Relationship Specialty Start Date End Date Estella Hutchinson MD [address] [place] [place], [place] [id number] PCP - General General Internal Medicine 02/18/2105/19 documented as of this encounter
--- OUTSIDE RECORDS SUMMARY | 2024-01-26 15:04 | XMS_ITS | Encounter Summary ---
Author Organization [employer] Address [address] [place] [address] Care Team Providers Care Hand Assembler Name Role Phone Estella Hutchinson MD Primary Care Provider [phone]- [phone] Encounter Details Date Type Department Care Team (Late st Contact Info) Description 12/14/2021 11:13 AM EDT Anesthesia Event [facility] Operating Room 1 [place] [address] Los Larios MD [address] [place] [address] Anesthesia Record Procedure Summary Procedure Name Responsible Anesthesiologist Anesthesia Start Time Anesthesia Stop Time L3-5, L5-S1 FUSION AND DECOMPRESSION AUGMENTATION WITH ZIEHM Events Date Time Event Comment 12/14/2021 1440 Handoff to Receiving I compl eted my handoff to the receiving clinician during which we: 1. Identified the patient. 2. Identified the responsible provider. 3. Reviewed the pertinent medical history. 4. Discussed the surgical course. 5. Reviewed intra-op anesthesia management and issues during anesthesia. 6. Set expectations for post-procedure period. 7. Allowed opportunity for questions and acknowledgement of understanding. Meds * Agents No agents on file. * Blood No blood administrations on file. Lines, Drains, and Airways Type Details Placement Removal Wound 11/30/21; Y 11/30/21 0000 by Roslyn Lawson RN Wound 06/12/22; 1153; Inci zandra; Back; dermabond, covaderm 06/12/22 1153 by Janelle Hatfield, SHIRLEY documented in this encounter Social History Tobacco Use Types Packs/Day Years [...] slept in a retirement (including now)? No 12/15/2021 Comments No Sex [...] on filedocumented in this encounter Care Teams Hand Assembler Relationship Specialty Start Date End Date Estella Hutchinson MD [address] [place] [address] PCP - General General Internal Medicine 02/18/2105/19 documented as of this encounter
--- OUTSIDE RECORDS SUMMARY | 2024-01-26 15:04 | XMS_ITS | Encounter Summary ---
Author Organization [employer] Address [address] [place] [address] Care Team Providers Care Qa Test Analyst Name Role Phone Mayank Angel MD Primary Care Provider [phone] Reason for Visit * Auth/Cert Specialty Diagnoses / Procedures Referred By Contdanna t Referred To Contact Diagnoses Weakness Acute respiratory failure with hypoxia (HCC) Urinary tract infection without hematuria, site unspecified Altered mental status, unspecified altered mental status type Midline low back pain without sciatica, unspecified chronicity [address] Neuro Telemetry Unit [address] [place] [id number] Phone: tel: fax: [address] Neuro Telemetry Unit 1 [place] [address] Phone: tel: fax: Referral ID Status Reason Start Date Expiration Date Visits Re quested Visits Authorized [id number] 1 1 Encounter Details Date Type Department Care Team (Late st Contact Info) Description 06/12/2022 10:40 AM EDT Anesthesia Event [facility] Operating Room 1 [place] [address] Oliver Solis MD [address] [place] [address] Jeremy Contreras CRNA [address] [place] [id number] Anesthesia Record Procedure Summary Procedure Name Responsible Anesthesiologist Anesthesia Start Time Anesthesia Stop Time (LT L5-S1 FACETECTOMY AND NEUROFORAMINOTOMY (Left: Back) Oliver Solis MD 06/12/22 1040 06/12/22 1243 Events Date Time Event Comment 06/12/2022 1040 An Start Patient identif ied and chart reviewed. 1040 An Start Data Anesthesia mac hector and monitors checked. 1045 Pre-Induction Eval FDA anest hesia machine pre-use checkout completed. Patient status reassessed prior to start of anesthesia care. 1048 An Induction 1050 An Intubation 1050 Quick Note Pt was noted to have dentures secured by posts upon opening mouth for intubation. Pt had previously denied wearing dentures. They were fixed in place. They were not damaged in any way during intubation. 1053 Anesthesia Ready 1105 Quick Note Bertin lunch 1105- 1129 1235 An Extubation 1235 an stop data 1243 An Stop Meds Name Total fentaNYL (SUBLIMAZE) injection 100 mcg glycopyrrolate (ROBINUL) injection 0.4 m g lidocaine (XYLOCAINE) injection 2% 100 m g neostigmine (PROSTIGMINE) 1 mg/mL inject ion 3 mg ondansetron (ZOFRAN) injection vial 4 mg propofol (DIPRIVAN) injection 10 mg/mL b olus 140 mg rocuronium (ZEMURON) 100 mg/10 mL inject ion 30 mg propofol (DIPRIVAN) infusion 10 mg/mL 59 3.3 mg phenylephrine (YAYA-SYNEPHRINE) injection 400 mcg lactated ringers (LR) infusion 400 mL * Agents Name O2 N2O Air * Blood No blood administrations on file. Lines, Drains, and Airways Type Details Placement Removal Wound 11/30/21; Y 11/30/21 0000 by Roslyn Lawson RN Wound 06/12/22; 1153; Inci zandra; Back; dermabond, covaderm 06/12/22 1153 by Janelle Hatfield RN Peripheral IV Placement Date: 05/20 07/10; Placement Time: 932 (Present upon admission to preop); Size: 20 G; Orientation: Posterior, Right; Location: Forearm; Securement Method: Taped; Removal Date: 06/15/22; Removal Time: 909; Removal Reason: Drainage 06/12/22 0933 by Sandy Goodwin RN 06/15/22 09 by Rae Herman RN ETT Placement Date 06/12; Placement Time 1050 (created via procedure documentation); Airway Size 7; Airway Cuffed Yes; Removal Date 06/12/22; Removal Time 1235 06/12/22 1050 by Christina Alarcon CRNA 06/12/22 1235 by Christina Alarcon CRNA documented in this encounter Social History Tobacco [...] place to sleep or slept in a chcf (including now)? No 06/11/2022 Comments No Sex [...] Stas Deal RN documented in this encounter OR Notes * Anesthesia Postprocedure Evaluation - Christina Alarcon CRNA - 06/12/2022 12:42 PM EDT Patient: Chen Merritt Procedure Summary Date: 06/12/22 Room / Location: [facility] OR [address] [place] [address] OPERATING ROOM Anesthesia Start: 1040 Anesthesia Stop: Procedure: (LT L5-S1 FACETECTOMY AND NEUROFORAMINOTOMY (Left: Back) Diagnosis: Spondylosis with myelopathy, lumbar region (Spondylosis with myelopathy, lumbar region) Surgeons: Edith Morse MD Responsible Provider: Oliver Solis MD Anesthesia Type: general, other ASA Status: 3 Anesthesia Type: general, other Vitals Value Taken Time BP 168/78 06/12/22 1240 Temp 98 06/12/22 1242 Pulse 93 06/12/22 1242 Resp 15 06/12/22 1242 SpO2 99 % 06/12/22 1242 Vitals shown include unvalidated device data. Ht 1.6 m (5' 2.99 ) Wt 68 kg (150 lb) BMI 26.58 kg/m?? Anesthesia Post Evaluation Patient location during evaluation: PACU Patient participation: complete - patient participated Level of consciousness: awake Pain score: 0 Pain management: adequate Multimodal analgesia pain management approach Airway patency: patent Cardiovascular status: stable Respiratory status: face mask Hydration status: stable Color: [place] Activity: Moves 4 extremities Inotropes/Vasopressors: N/A No notable events documented. Christina Alarcon CRNA 06/12/2022 12:42 PM EDT * Anesthesia Procedure Notes - Christina Alarcon CRNA - 06/12/2022 11:09 AM EDT Associated Order(s): Intubation Intubation Date/Time: 06/12/2022 10:50 AM Urgency: elective General Information and Staff Patient location during procedure: OR Anesthesiologist: Oliver Solis MD Resident/BULL FLOAT FINISHER: Christina Alarcon CRNA Performed: resident/BULL FLOAT FINISHER Indications and Patient Condition Indications for airway management: anesthesia and airway protection Spontaneous Ventilation: absent Sedation level: general anesthesia Preoxygenated: yes Patient position: sniffing no Mask difficulty assessment: 2 - vent by mask + OA or adjuvant +/- NMBA no Final Airway Details Final airway type: endotracheal airway Endotracheal tube type: ETT Cuffed: yes Successful intubation technique: direct laryngoscopy Facilitating devices/methods: intubating stylet Endotracheal tube insertion site: oral Blade: [place] Blade size: #3 ETT size (mm): 7.0 Placement verified by: chest auscultation and capnometry Measured from: teeth ETT to teeth (cm): 22 Number of attempts at approach: 1 Number of other approaches attempted: 0 * Anesthesia Preprocedure Evaluation - Fabrizio Schaffer MD - 06/11/2022 1:38 PM EDT ANESTHESIA PREOPERATIVE EVALUATION Patient: Chen Merritt Frail 81 yo female for back surgery in am as noted. Pt has severe PONV and it sounds like she had aTIVA with last anesthetic which was successful in preventing PONV: Pt also has a history of incontinence, CABG in 2010 without recurrent symptoms, GERD and the problems listed bellow. Date/Time: 06/12/22 1020 Procedure: (LT L5-S1 HEMILAMINECTOMY AND DISCECTOMY WITH MICROSCOPE) (Left) - IN 0800,1.5HRS(R) Location: [facility] OR [address] [place] [address] OPERATING ROOM Surgeons: Edith Morse MD There were no vitals filed for this visit. Allergies Allergen Reactions ??? Claritin [Loratadine] Rash ??? Bactrim [Sulfamethoxazole-Trimethoprim] ??? Macrobid [Nitrofurantoin Monohyd/M-Cryst] ??? Morphine ??? Sulfa (Sulfonamide Antibiotics) Current Outpatient Medications Medication Instructions ??? aspirin [...] except on the day of methotrexate ??? HYDROcodone-acetaminophen (NORCO 7.5-325) 7.5-325 mg per tablet 1 tablet, Oral, 2 times daily PRN ??? losartan (COZAAR) 25 mg, Oral, 2 times daily ??? methotrexate 20 mg, Oral, Weekly ??? metoprolol tartrate (LOPRESSOR) 25 MG tablet Take 1 tablet (25 mg total) by mouth in the morning and 1 tablet (25 mg total) before bedtime. ??? llytvsqe-soa-SX-lycopen-lutein (Centrum Silver) 0.4 mg-300 mcg- 250 mcg Tab 1 tablet, Oral, Daily ??? pantoprazole (PROTONIX) 40 mg, Oral, Daily ??? pregabalin (LYRICA) 50 MG capsule Take 3 capsules (150 mg total) by mouth nightly. ??? Prolia 60 mg, Subcutaneous, Every 6 months INPATIENT MEDICATIONS Problem List as of 06/11/2022 Cardiovascular and Mediastinum Arteriosclerosis of coronary artery Hypertension Myocardial infarction (HCC) Paroxysmal atrial fibrillation (HCC) Musculoskeletal and Integument Lumbar adjacent segment disease with spondylolisthesis Arthritis Osteopenia Lumbar spondylosis Other Hyperlipidemia Past Surgical History: Procedure Laterality Date ??? CHOLECYSTECTOMY ??? LAMINECTOMY,LUMBAR W/FUSION N/A 12/14/2021 Procedure: L3-5, L5-S1 FUSION AND DECOMPRESSION AUGMENTATION WITH ZIEHM; Surgeon: Edith Morse MD; Location: [facility]; Service: Neurosurgery; Laterality: N/A; [place] 0830. 3 HRS (R). PASS. AIRO. PRE CERT STARTED, ??? open heart 4 bypass Social History Tobacco Use ??? Smoking status: Never ??? Smokeless tobacco: Never Substance Use Topics ??? Alcohol use: Never ??? Drug use: Never Echo Results (last 7 days) No results found for the last 168 hours. Chemistry Component Value Date/Time NA 139 06/11/2022 0651 K 4.1 06/11/2022 0651 CL 109 06/11/2022 0651 CO2 23 06/11/2022 0651 BUN 20 06/11/2022 0651 CREATININE 0.93 06/11/2022 0651 Component Value Date/Time CALCIUM 8.9 06/11/2022 0651 ALKPHOS 65 06/10/2022 0036 AST 30 06/10/2022 0036 ALT 24 06/10/2022 0036 BILITOT 0.4 06/10/2022 0036 Lab Results Component Value Date WBC 5.7 06/11/2022 HGB 11.4 06/11/2022 HCT 34.5 06/11/2022 MCV 99 (H) 06/11/2022 PLT 203 06/11/2022 Clinical information reviewed: No data recorded Physical Exam Airway Mallampati: III TM distance: <3 FB Neck ROM: limited Cardiovascular - normal exam Dental - normal exam Pulmonary - normal exam Abdominal - normal exam Anesthesia Plan ASA 3 general and other The patient is not a current smoker. intravenous induction Anesthetic plan and risks discussed with patient. documented in this encounter Plan of Treatment Not on file documented as of this encounter Procedures Procedure Name Priority Date/Time Associated Diagnosis Comments ANESTHESIA INTUBATION Routine 06/12/2022 10:50 AM EDT documented in this encounter Results * AN SINGLE LUMEN INTUBATION (06/12/2022 10:50 AM EDT) Christina Badillo CRNA - 06/12/2022 10:50 AM EDT Christina Alarcon CRNA ? 06/12/2022 11:11 AM Intubation Date/Time: 06/12/2022 10:50 AM Urgency: elective General Information and Staff Patient location during procedure: OR Anesthesiologist: Oliver Solis MD Resident/BULL FLOAT FINISHER: Christina Alarcon CRNA Performed: resident/BULL FLOAT FINISHER Indications and Patient Condition Indications for airway management: anesthesia and airway protection Spontaneous Ventilation: absent Sedation level: general anesthesia Preoxygenated: yes Patient position: sniffing no Mask difficulty assessment: 2 - vent by mask + OA or adjuvant +/- NMBA no Final Airway Details Final airway type: endotracheal airway Endotracheal tube type: ETT Cuffed: yes Successful intubation technique: direct laryngoscopy Facilitating devices/methods: intubating stylet Endotracheal tube insertion site: oral Blade: [place] Blade size: #3 ETT size (mm): 7.0 Placement verified by: chest auscultation and capnometry Measured from: teeth ETT to teeth (cm): 22 Number of attempts at approach: 1 Number of other approaches attempted: 0 Oliver Solis MD ANESTHESIA ORDERABLES Carolina marely Result documented in this encounter Visit Diagnoses Not on filedocumented in this encounter Administered Medications Inactive Administered Medications - up to 3 most recent administrations Medication Order MAR Action Action Date Dose Rate Site fentaNYL (SUBLIMAZE) injection As needed, intravenous, Starting on Sat06/12/22 at 1213, Anesthesia Intra-op Given 06/12/2022 12:13 PM EDT 50 mcg Given 06/12/2022 11:34 AM EDT 50 mcg glycopyrrolate (ROBINUL) injection As needed, intravenous, Starting on Sat06/12/22 at 1216, Anesthesia Intra-op Given 06/12/2022 12:16 PM EDT 0.4 mg lactated ringers (LR) infusion Continuous PRN, intravenous, Starting on Sat06/12/22 at 1040, Anesthesia Intra-op New Bag 06/12/2022 10:40 AM EDT lidocaine (XYLOCAINE) injection 2% As needed, intravenous, Starting on Sat06/12/22 at 1048, Anesthesia Intra-op Given 06/12/2022 10:48 AM EDT 100 mg neostigmine methylsulfate (PROSTIGMINE) injection As needed, intravenous, Starting on Sat06/12/22 at 1216, Anesthesia Intra-op Given 06/12/2022 12:16 PM EDT 3 mg ondansetron PF (ZOFRAN) injection As needed, intravenous, Starting on Sat06/12/22 at 1215, Anesthesia Intra-op Given 06/12/2022 12:15 PM EDT 4 mg phenylephrine (YAYA-SYNEPHRINE) injection As needed, intravenous, Starting on Sat06/12/22 at 1131, Anesthesia Intra-op Given 06/12/2022 11:14 AM EDT 160 mc g Given 06/12/2022 10:59 AM EDT 240 mcg propofol (DIPRIVAN) injection 10 mg/mL bolus As needed, intravenous, Starting on Sat06/12/22 at 1048, Anesthesia Intra-op Given 06/12/2022 10:48 AM EDT 140 mg propofol (DIPRIVAN) injection 10 mg/mL Continuous PRN, intravenous, Starting on Sat06/12/22 at 1051, Anesthesia Intra-op Rate/Dose Change 06/12/2022 12:16 PM EDT 75 mcg/kg/min 30.6 mL/hr Rate/Dose Change 06/12/2022 11:21 AM EDT 100 mcg/kg/min 40 .8 mL/hr New Bag 06/12/2022 10:51 AM EDT 75 mcg/kg/min 30.6 mL/h r rocuronium (ZEMURON) injection As needed, intravenous, Starting on Sat06/12/22 at 1048, Anesthesia Intra-op Given 06/12/2022 10:48 AM EDT 30 mg documented in this encounter Care Teams Qa Test Analyst Relationship Specialty [place] [address] [address] [phone] PCP - General Family Medicine 06/07/22 06/05/23 documented as of this encounter
--- OUTSIDE RECORDS SUMMARY | 2024-01-26 15:04 | XMS_ITS | Encounter Summary ---
Author Organization [email or web address] Address [address] [place] [address] Care Team Providers Care Supervisor Assembly Name Role Phone Estella Hutchinson MD Primary Care Provider [phone]- [phone] Encounter Details Date Type Department Care Team (Late st Contact Info) Description 12/08/2021 8:15 AM EDT - 12/08/2021 11:59 PM EDT Hospital Encounter [facility] Preadmission Testing 1 [place] [address] Edith Morse MD [address] [place] [address] [place] [address] Discharge Disposition: Home or Self Care Social History Tobacco Use Types Packs/Day Years Used Date Smoking Tobacco: Never Assessed Comments Unknown Sex and Gender Information Value Date Recorded Sex Assigned at Not on file Legal Sex Female 5:40 PM CDT Gender Identity Not on file Sexual Orientation Not on file documented as of this encounter Medications at Time of Discharge [...] total) by mouth once a week. 10/31/2021 cszbhncb-xqk-AK -lycopen-lutein (Centrum Silver) 0.4 mg-300 mcg- 250 [...] Amount: 4 tablets 30 tablet 12/17/2021 2 calcium carbonate 1250 MG capsule Take 1,250 mg by mouth 2 (two) times daily with breakfast and dinner. 2 denosumab (Prolia) 60 mg/mL Syrg Inject 1 mL (60 mg total) subcutaneously every 6 (six) months. 3 denosumab (XGEVA) 120 mg/1.7 mL (70 mg/mL) injection Inject 120 mg subcutaneously. 2 dilTIAZem (CARDIZEM CD) 240 MG 24 hr capsule diltiazem CD 240 mg capsule,extended release 24 hr TAKE 1 CAPSULE BY MOUTH ONCE DAILY 3 magnesium gluconate (MAGONATE) 27.5 mg magne- sium (500 mg) tablet Take 1 tablet (500 mg total) by mouth in the morning. 3 methocarbamoL (ROBAXIN) 500 MG tablet Take 1 tablet (500 mg total) by mouth 3 (three) times daily as needed for up to 10 days. 30 tablet 12/17/2021 2 methylcellulose (CitruceL, sucrose,) oral powder Citrucel (sucrose) oral powder 2 metoprolol tartrate (LOPRESSOR) 50 MG tablet Take 1 tablet (50 mg total) by mouth in the morning and 1 tablet (50 mg total) before bedtime. 4 pregabalin (LYRICA) 50 MG capsule Take 3 capsules (150 mg total) by mouth nightly. 09/13/2021 3 probenecid-colc hicine 500-0.5 mg per tablet Take 1 tablet by mouth daily. 2 traMADoL (ULTRAM) 50 mg tablet tramadol 50 mg tablet TAKE 1 TABLET BY MOUTH THREE TIMES DAILY 11/07/2021 3 documented as of this encounter Plan of Treatment Not on file documented as of this encounter Procedures Procedure Name Priority Date/Time Associated Diagnosis Comments FS_MODEL_IP_ECG 12-LEAD Routine 12/08/2021 9:43 AM EDT documented in this encounter Results * ECG 12 lead (12/08/2021 9:43 AM EDT) VENTRICULAR RATE EKG/MIN 62 BPM GE MUSE ATRIAL RATE (MCT) 62 BPM GE MUSE NE Interval 166 ms GE MUSE QRS-INTERVAL (MSEC) 98 ms GE MUSE QT Interval 434 ms GE MUSE QTC Interval 440 ms GE MUSE P Carroll 13 degrees GE MUSE R AXIS (MCT) 0 degrees GE MUSE T Wave Carroll 64 degrees GE MUSE [place] Diagnosis Normal sinus rhythm Incomplete right bundle branch block Anterolateral infarct , age undetermined Abnormal ECG No previous ECGs available Confirmed by MD Tod, Abebe ([id number]), index editor Guicho Victoria ([id number]) on 04/05/2022 5:34:58 PM GE MUSE 12/08/2021 9:43 AM EDT 04/05/2022 5:34 PM EST us Provider Not In The System Caleb ALANIZ ECG ORDERABLES Final Result GE MUSE documented in this encounter Visit Diagnoses Not on filedocumented in this encounter Care Teams Supervisor Assembly Relationship Specialty Start Date End Date Estella Hutchinson MD [address] [place], [place] [id number] PCP - General General Internal Medicine 02/18/2105/19 documented as of this encounter
--- OUTSIDE RECORDS SUMMARY | 2024-01-26 15:04 | XMS_ITS | Encounter Summary ---
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 LUMBAR SPONDYLOSIS Procedures ND ARTHRODESIS COMBINED TQ 1NTRSPC LUMBAR ND JACOBS FACETEC/FORAMOT DRG ARTHRD LUMBAR 1 VRT SGM ND POSTERIOR SEGMENTAL INSTRUMENTATION 3-6 VRT SEG ND INSJ BIOMCHN DEV INTERVERTEBRAL DSC SPC W/ARTHRD ND STEREOTACTIC COMP ASSIST PROC,SPINAL LAMINECTOMY, SPINE, LUMBAR, WITH FUSION [facility] [place] [address] Phone: tel: fax: [facility] [place] [address] Phone: tel: fax: Referral ID Status Reason Start Date Expiration Date Visits Re quested Visits Authorized [id number] 1 1 Encounter Details Date Type Department Care Team (Late st Contact Info) Description 12/14/2021 7:54 AM EDT - 12/17/2021 2:20 PM EDT Hospital Encounter [facility] [place] [address] Edith Morse MD [address] [facility] [address] [place] [address] [id number] Shahid Oro MD [address] [facility] [address] [place], [place] [id number] Discharge Disposition: [facility] Facility Social History Tobacco Use Types Packs/Day [...] slept in a usp (including now)? No 12/15/2021 Comments No Sex [...] Sign Reading Time Taken Comments Blood Pressure 162/78 12/17/2021 10:46 AM EDT Pulse 97 12/17/2021 10:48 AM EDT Temperature 37.6 ??C (99.7 ??F) 12/17/2021 10:45 AM E DT Respiratory Rate 16 12/16/2021 6:40 PM EDT Oxygen Saturation 92% 12/17/2021 10:45 AM EDT Inhaled Oxygen Concentration - - Weight 75.1 kg (165 lb 9.1 oz) 12/15/2021 5:09 A M EDT Height 160 cm (5' 2.99 ) 12/15/2021 5:22 AM EDT Body Mass Index 29.34 12/15/2021 5:09 AM EDT documented in this encounter Functional Status * Are you deaf or do you have serious difficulty hearing? Answer Date of Assessment Author No 12/17/2021 2:07 PM CDStas Field RN * Are you blind or do [...] in this encounter Discharge Summaries * Britni Parra, [facility] - 12/15/2021 11:53 AM EDT Patient Name: [...] mg-300 mcg- 250 mcg Tab Generic drug: bornkkvd-sxe-GS-lycopen-lutein Take 1 tablet by mouth daily . [...] total) by mouth once a week. 10/31/2021 oidxluul-epp-QG -lycopen-lutein (Centrum Silver) 0.4 mg-300 mcg- 250 [...] * TESSA Ramires - 12/17/2021 1:33 PM EDTSumgonzalo: TRISTEN Final Note Care Coordination Final Discharge [...] EDITH MORSE MD Specialty: Neurological Surgery, Neurosurgery [facility] [address] [address] Next Steps: Follow up Instructions: Follow-up 1 month with AP lateral lumbar x-rays Transporation Provider: (P) [employer] Contact Name: Transportation Provider Phone: Date of client support administrator: (P) 12/17/21 Time of client support administrator: (P) 1400 TESSA Martinez * Tahir Scott [...] and joins conversation COURTNEY, seemingly full strength Dale Labs: Results for orders placed or performed during the hospital encounter of 12/14/21 (from the past 24 hour(s)) Urinalysis, Reflex Microscopic and Culture If Indicated Status: None Collection Time: 12/16/21 3:54 PM Result Value Ref Range Color, UA Yellow Clarity, UA Clear Clear Specific Nisula, UA 1.014 1.005 - 1.030 pH, UA [...] foraminotomy Plan D/C to rehab today Ordered Robaxin to see if LLE pain can be better controlled, discussed with family that this may still make her somnolent * TESSA Ramires - 12/17/2021 10:03 AM EDTSummary: TRISTEN Progress Note CM has sent requested info to [facility] (labs, vitals, O2 SATS & progress note) Pt expected to D/C today to [facility] at 1400 via [employer] w/c van [facility] Spinal Cord Unit for inpt rehab [...] LLE pain. Pt then transferred sit>stand from BS w RW Tyson to adjust BSC height [...] Awake alert interactive 465 ND Good strength Dale jace with serosanguineous output Labs: Results for [...] Basic Metabolic Panel Status: Abnormal Collection Time: 10/29/22 8:44 AM Result Value Ref Range Sodium [...] with pt, sister, and daughter Alma Castaneda ([phone]) at bedside to discuss DCP. They agree to rehab and chose [facility] for acute rehab. Referral sent and [...] Inpatient Rehab Facility Mandated Reporting: Not applicable PT/OT/MACHINE RIVETER Recommendations PT Recommendations: Inpatient Rehab OT Recommendations: Inpatient Rehab Consult MACHINE RIVETER Recommendations: Miladys Romeo RN * Phoebe Chapman, [...] WITH ZIEHM; Surgeon: Edith Morse MD; Location: [facility]; Service: Neurosurgery; Laterality: N/A; [...] RWx and gait belt. Pt transferred to BSC w/ minAx2 and sat for increased time. [...] Evaluation Date: 12/15/2021 OT Start Time : 1125 OT End Time : 1150 Session Duration [...] WITH ZIEHM; Surgeon: Edith Morse MD; Location: [facility]; Service: Neurosurgery; Laterality: N/A; [...] roll for bed mobility. Pt transferred to [facility] with min A (2 ppl for safety) [...] : 1150 Session Duration (mins): 24 Marisel Avendano OTR/L * Du Marcelino PA-C - 12/15/2021 [...] in this encounter H&P Notes * Shanta Steinberg [place] - 12/14/2021 9:45 AM EDT HPI History [...] 1 TABLET BY MOUTH TWICE DAILY ??? lkfxxsxw-duq-LT-lycopen-lutein (Centrum Silver) 0.4 mg-300 mcg- 250 mcg [...] Normal appearance. HENT: Head: Normocephalic. Ears: Comments: [place] Cardiovascular: Rate and Rhythm: Normal rate and [...] the notes, assessments, and/or procedures performed by SENIOR MERCHANDISER I concur with her/his documentation of Chen [...] TWICE DAILY 12/14/2021 at Unknown time ??? zzqmfimf-mrh-AV-lycopen-lutein (Centrum Silver) 0.4 mg-300 mcg- 250 mcg [...] BLOOD LOSS: 100 mL. SPECIMENS: None. DRAINS: 15-Vietnamese Tobin-Cordova drain. COMPLICATIONS: None acute. INDICATIONS FOR [...] case. No intraoperative complications were noted. Du Marcelino, was present and scrubbed and involved in the entirety of this procedure. The patient was transferred to the PACU in stable condition. /[id number] Edith Morse MD NST/AQ / NST / AQS /[id number] documented in this encounter Plan of Treatment [...] 1 HOUR Routine 12/14/2021 2:10 PM EDT ND ARTHRODESIS COMBINED TQ 1NTRSPC LUMBAR 12/14/2021 11:13 AM EDT Spondylosis with myelopathy, lumbar region TYPE AND SCREEN ([place] BKR) Routine 12/14/2021 9:15 AM EDT EKG-SCANNED 12/14/2021 documented in this encounter Results * Urinalysis, Reflex Microscopic and Culture If Indicated (12/16/2021 3:54 PM EDT) Color, UA Yellow 12/16/2021 5:41 PM EDT [facility] Clarity, UA Clear Clear 12/16/2021 5:41 PM EDT [facility] Specific Nisula, UA 1.014 1.005 - 1.030 12/16/2021 5:41 PM EDT [facility] pH, UA 7.0 6.0 - 8.0 12/16/2021 5:41 PM EDT [facility] Leukocytes, UA Negative Negative 12/16/2021 5:41 PM EDT [facility] Nitrite, UA Negative Negative 12/16/2021 5:41 PM EDT [facility] Protein, UA Negative Negative 12/16/2021 5:41 PM EDT [facility] Glucose, UA Normal Normal 12/16/2021 5:41 PM EDT [facility] Ketones, UA Negative Negative 12/16/2021 5:41 PM EDT [facility] Bilirubin, UA Negative Negative 12/16/2021 5:41 PM EDT [facility] Blood, UA Negative Negative 12/16/2021 5:41 PM EDT [facility] Urobilinogen, UA Normal Normal 12/16/2021 5:41 PM EDT [facility] Specimen Source Urine, Sterile Collection 12/16/2021 5:41 PM EDT [facility] Urine STERILE URINE SPECIMEN CONTAINER / Unknown 12/16/2021 3:54 PM EDT 12/16/2021 3:56 PM EDT us Bear Alejo MD URINE ORDERABLES Final Res ult [facility] [address] [phone] * (ABNORMAL) Basic Metabolic Panel (12/16/2021 8:44 AM EDT) Sodium 139 136 - 146 meq/L 12/16/2021 9:15 AM EDT [facility] Potassium 3.7 3.5 - 5.1 meq/L 12/16/2021 9:15 AM EDT [facility] Chloride 107 102 - 112 meq/L 12/16/2021 9:15 AM EDT [facility] CO2 28 21 - 32 meq/L 12/16/2021 9:15 AM EDT [facility] Anion Gap 8(L) 9 - 20 12/16/2021 9:15 AM EDT [facility] BUN 13 7 - 22 mg/dL 12/16/2021 9:15 AM EDT [facility] Creatinine 0.80 0.55 - 1.02 mg/dL 12/16/2021 9:15 AM EDT [facility] BUN/Creatinine 16 8 - 20 12/16/2021 9:15 AM EDT [facility] Glucose 148(H) 74 - 106 mg/dL 12/16/2021 9:15 AM EDT [facility] Calcium 8.9 8.4 - 10.1 mg/dL 12/16/2021 9:15 AM EDT [facility] Osmolality Calc 280.4 9:15 AM EDT [facility] eGFR Non (mL/min/1.73m2) >60 >=60 mL/min/1.7 3m2 12/16/2021 9:15 AM EDT [facility] eGFR (mL/min/1.73m2) >60 >=60 mL/min/1.7 3m2 12/16/2021 9:15 AM EDT [facility] Comment:eGFR of <60 suggests chronic kidney disease if found over a 3 month period of time. eGFR <15 indicates renal failure. Blood Venipuncture / Unknown 12/16/2021 8:44 AM EDT 12/16/2021 8:52 AM EDT Bear Alejo MD LAB BLOOD ORDERABLES Final Result [facility] [address] [place] [address] * (ABNORMAL) CBC with automated diff (12/16/2021 8:44 AM EDT) WBC 9.2 4.5 - 10.5 K/??L 12/16/2021 8:58 AM EDT [facility] RBC 3.41(L) 3.93 - 5.22 M/??L 12/16/2021 8:58 AM EDT [facility] Hemoglobin 11.0(L) 11.2 - 15.7 GM/DL 12/16/2021 8:58 AM EDT [facility] Hematocrit 35.2 34.1 - 44.9 % 12/16/2021 8:58 AM EDT [facility] MCV 103(H) 79 - 95 fL 12/16/2021 8:58 AM EDT [facility] MCH 32.3(H) 25.6 - 32.2 pg 12/16/2021 8:58 AM EDT [facility] MCHC 31.3(L) 32.2 - 36.5 GM/DL 12/16/2021 8:58 AM EDT [facility] RDW 14.3 11.7 - 14.9 % 12/16/2021 8:58 AM EDT [facility] Platelets 149(L) 163 - 369 K/CU MM 12/16/2021 8:58 AM EDT [facility] MPV 12.1 9.4 - 12.4 fL 12/16/2021 8:58 AM EDT [facility] % Neutros 78(H) 34 - 71 % 12/16/2021 8:58 AM EDT [facility] % Lymphs 9(L) 19 - 53 % 12/16/2021 8:58 AM EDT [facility] % Monos 11(H) 3 - 9 % 12/16/2021 8:58 AM EDT [facility] % Eos 2(H) 0 - 1 % 12/16/2021 8:58 AM EDT [facility] % Baso 0 0 - 2 % 12/16/2021 8:58 AM EDT [facility] NRBC Absolute 0.00 0 - 0.12 K/ul 12/16/2021 8:58 AM EDT [facility] # Neutros 7.19(H) 1.56 - 6.13 K/??L 12/16/2021 8:58 AM EDT [facility] # Lymphs 0.78(L) 1.00 - 3.50 K/??L 12/16/2021 8:58 AM EDT [facility] # Monos 0.98 0.16 - 1.00 K/??L 12/16/2021 8:58 AM EDT [facility] # Eos 0.21 0.00 - 0.80 K/??L 12/16/2021 8:58 AM EDT [facility] # Baso 0.01 0.00 - 0.20 K/??L 12/16/2021 8:58 AM EDT [facility] Immature Granulocytes-Re lative 0.50 0.00 - 0.60 % 12/16/2021 8:58 AM EDT [facility] # IG 0.05 0.00 - 0.05 K/uL 12/16/2021 8:58 AM EDT [facility] Blood Venipuncture / Unknown 12/16/2021 8:44 AM EDT 12/16/2021 8:52 AM EDT Narrative [facility] - 12/16/2021 8:58 AM EDT When [...] Flag noted Atypical Lymph flag noted us Bear Alejo MD LAB BLOOD ORDERABLES Final Result [facility] [address] [phone] * (ABNORMAL) Basic Metabolic Panel (12/15/2021 11:55 AM EDT) Sodium 142 136 - 146 meq/L 12/15/2021 1:00 PM EDT [facility] Potassium 4.3 3.5 - 5.1 meq/L 12/15/2021 1:00 PM EDT [facility] Chloride 108 102 - 112 meq/L 12/15/2021 1:00 PM EDT [facility] CO2 26 21 - 32 meq/L 12/15/2021 1:00 PM EDT [facility] Anion Gap 12 9 - 20 12/15/2021 1:00 PM EDT [facility] BUN 14 7 - 22 mg/dL 12/15/2021 1:00 PM EDT [facility] Creatinine 1.00 0.55 - 1.02 mg/dL 12/15/2021 1:00 PM EDT [facility] BUN/Creatinine 14 8 - 20 12/15/2021 1:00 PM EDT [facility] Glucose 101 74 - 106 mg/dL 12/15/2021 1:00 PM EDT [facility] Calcium 8.9 8.4 - 10.1 mg/dL 12/15/2021 1:00 PM EDT [facility] Osmolality Calc 283.7 10/28/202 2 1:00 PM EDT [facility] eGFR Non (mL/min/1.73m2) 56(L) >=60 mL/min/1.7 3m2 12/15/2021 1:00 PM EDT [facility] eGFR (mL/min/1.73m2) >60 >=60 mL/min/1.7 3m2 12/15/2021 1:00 PM EDT [facility] Comment:eGFR of <60 suggests chronic kidney disease if found over a 3 month period of time. eGFR <15 indicates renal failure. Blood Venipuncture / Unknown 12/15/2021 11:55 AM EDT 12/15/2021 12:29 PM EDT Bear Alejo MD LAB BLOOD ORDERABLES Final Result [facility] [address] [place] [address], [facility] [phone] * (ABNORMAL) CBC with automated diff (12/15/2021 11:55 AM EDT) WBC 8.2 4.5 - 10.5 K/??L 12/15/2021 12:53 PM EDT [facility] RBC 3.43(L) 3.93 - 5.22 M/??L 12/15/2021 12:53 PM EDT [facility] Hemoglobin 11.1(L) 11.2 - 15.7 GM/DL 12/15/2021 12:53 PM EDT [facility] Hematocrit 36.1 34.1 - 44.9 % 12/15/2021 12:53 PM EDT [facility] MCV 105(H) 79 - 95 fL 12/15/2021 12:53 PM EDT [facility] MCH 32.4(H) 25.6 - 32.2 pg 12/15/2021 12:53 PM EDT [facility] MCHC 30.7(L) 32.2 - 36.5 GM/DL 12/15/2021 12:53 PM EDT [facility] RDW 14.6 11.7 - 14.9 % 12/15/2021 12:53 PM EDT [facility] Platelets 150(L) 163 - 369 K/CU MM 12/15/2021 12:53 PM EDT [facility] MPV 11.6 9.4 - 12.4 fL 12/15/2021 12:53 PM EDT [facility] % Neutros 77(H) 34 - 71 % 12/15/2021 12:53 PM EDT [facility] % Lymphs 8(L) 19 - 53 % 12/15/2021 12:53 PM EDT [facility] % Monos 11(H) 3 - 9 % 12/15/2021 12:53 PM EDT [facility] % Eos 3(H) 0 - 1 % 12/15/2021 12:53 PM EDT [facility] % Baso 0 0 - 2 % 12/15/2021 12:53 PM EDT [facility] NRBC Absolute 0.00 0 - 0.12 K/ul 12/15/2021 12:53 PM EDT [facility] # Neutros 6.36(H) 1.56 - 6.13 K/??L 12/15/2021 12:53 PM EDT [facility] # Lymphs 0.69(L) 1.00 - 3.50 K/??L 12/15/2021 12:53 PM EDT [facility] # Monos 0.87 0.16 - 1.00 K/??L 12/15/2021 12:53 PM EDT [facility] # Eos 0.25 0.00 - 0.80 K/??L 12/15/2021 12:53 PM EDT [facility] # Baso 0.03 0.00 - 0.20 K/??L 12/15/2021 12:53 PM EDT [facility] Immature Granulocytes-Re lative 0.40 0.00 - 0.60 % 12/15/2021 12:53 PM EDT [facility] # IG 0.03 0.00 - 0.05 K/uL 12/15/2021 12:53 PM EDT [facility] Blood Venipuncture / Unknown 12/15/2021 11:55 AM EDT 12/15/2021 12:29 PM EDT Narrative [facility] - 12/15/2021 12:53 PM EDT [...] Alejo MD LAB BLOOD ORDERABLES Final Result [facility] [address] [phone] * Fluoroscopy less than 1 hour (12/14/2021 [...] ABO/Rh A Positive 12/14/2021 9:08 AM EDT [facility] ([place]) Antibody Screen Negative 12/14/2021 9:08 AM EDT [facility] ([place]) HISTCHK HIST CHECK PERFORMED 12/14/2021 9:08 AM EDT [facility] ([place]) Blood Venipuncture / Unknown 12/14/2021 9:15 AM EDT 12/14/2021 9:32 AM EDT us Donta Martinez MD [facility] TEST ORDERABLES Final Result [facility] ([place]) 1 [facility] [place], [place] [address] [phone] * EKG-SCANNED (12/14/2021) Narrative 12/14/2021 Ordered by an unspecified provider. us Default Scanning Provider SCAN ORDERS Final Result documented in this encounter Visit Diagnoses Diagnosis Lumbar adjacent segment disease with spondylolisthesis- Primary documented in this encounter Admitting Diagnoses Diagnosis [...] Given 12/17/2021 10:47 AM EDT 1 g cloNIDine HCL (CATAPRES) tablet 0.2 mg 0.2 mg Every 6 hours PRN, oral, hypertension (sbp greater than 160), Starting on 12/15/21 at 0951, cyclobenzaprine (FLEXERIL) tablet 5 mg 5 mg 3 times daily PRN, oral, muscle spasms, Starting on Mary 12/14/21 at 1436, Phase II/On Unit Given 12/15/2021 8:33 AM EDT 5 mg Given 12/14/2021 5:38 PM EDT 5 mg dilTIAZem (CARDIZEM CD) 24 hr capsule 240 mg 240 mg Daily, oral, First dose on Mary 12/14/21 at 1500, Do Not Crush or Chew Antihypertensive - Check BP - Check Pulse Given 12/17/2021 10:46 AM EDT 2 40 mg Given 12/16/2021 8:34 AM EDT 240 [...] NOT CRUSH THIS DOSAGE FORM * Given 12/15/2021 8:34 AM EDT 100 mg Given 12/14/2021 10:20 PM EDT 100 mg docusate sodium (COLACE) capsule 100 mg [...] Given 12/16/2021 8:33 AM EDT 20 mg fentaNYL (SUBLIMAZE) injection 25 mcg 25 mcg Every 5 min PRN, intravenous, moderate to severe pain (4-10), Starting on Mary 12/14/21 at 1440, Maximum cumulative dose 100 mcg, PACU Given 12/14/2021 5:10 PM EDT 25 mcg Given 12/14/2021 4:10 PM EDT 25 mcg folic acid (FOLVITE) tablet 1,000 mcg 1,000 [...] 50 mmHg, or patient is on pressor. HYDROmorphone (DILAUDID) injection 0.5 mg 0.5 mg Every 10 min PRN, intravenous, moderate pain (4-6), severe pain (7-10), Starting on Mary 12/14/21 at 1448, Maximum cumulative dose 2 mg , PACU Given 12/14/2021 6:30 PM EDT 0.5 mg Left Arm loratadine (CLARITIN) tablet 10 mg 10 mg [...] Given 12/16/2021 8:52 PM EDT 150 mg pregabalin (LYRICA) capsule 75 mg 75 mg Daily, oral, First dose on Mary 12/14/21 at 1500 Given 12/15/2021 8:34 AM EDT 75 mg simethicone (MYLICON) chewable tablet 80 mg 80 mg Every 6 hours PRN, oral, flatulence, Starting on Sat12/15/21 at 0951 traMADoL (ULTRAM) tablet 50 mg 50 mg Every 6 hours PRN, oral, mild pain (1-3), Starting on Mary 12/14/21 at 1443 Given 12/17/2021 1:46 PM EDT 50 m g Given 12/17/2021 6:32 AM EDT 50 mg Given 12/16/2021 10:32 PM EDT 50 mg documented in this [...] Womack RN) 0834 (Given - Provider: Ashley oJiner RN) 1046 (Given - Provider: Shanda Betancourt RN) docusate sodium (COLACE) capsule 100 mg (CANCELED) [...] RN) 0835 (Given - Provider: Ashley Joiner RN)2105 (Given - Provider: Rosaline Teran) 1048 (Given [...] Helena Womack RN)214 (Given - Provider: Lianna Chilel, RN) 0833 (Given - Provider: Ashley Joiner RN)2047 (Given - Provider: Rosaline Teran) 1048 (Given - Provider: Shanda Betancourt, SHIRLEY) folic acid (FOLVITE) tablet 1,000 mcg 1,000 mcg Daily, oral, First dose on Mary 12/14/21 at 1500 0834 (Given - Provider: Helena Womack RN) 0835 (Given - Provider: Ashley Joiner RN) 1000 (Given - Provider: Shanda Betancourt, SHIRLEY) loratadine (CLARITIN) tablet 10 mg 10 mg Daily, oral, First dose on 12/16/21 at 1330 1727 (Not Given - Provider: Ashley Joiner RN - Reason: Patient/family refused) 1048 (Given - Provider: Shanda Betancourt, SHIRLEY) magnesium gluconate (MAGONATE) 27.5 mg magne- sium (500 mg) tablet 500 mg 500 mg Daily, oral, First dose on Mary 12/14/21 at 1500 0900 (Due) 1051 (Given - Provider: Ashley Joiner RN) 0900 (Given - Provider: Shanda Betancourt, SHIRLEY) metoprolol tartrate (LOPRESSOR) tablet 25 mg 25 mg 2 times daily, oral, First dose on Mary 12/14/21 at 1500, Hold for systolic BP < 90 mmHg or for HR < 50 BPM 0835 (Given - Provider: Helena Womack RN)2142 (Given - Provider: Lianna Chilel RN) 0834 (Given - Provider: Ashley Joiner RN)2051 (Given - Provider: Rosaline Teran) 1048 (Given - Provider: Shanda Betancourt, SHIRLEY) multivitamin (THERAGRAN) tablet 1 tablet 1 tablet Daily, oral, First dose on Mary 12/14/21 at 1730, Formulary sub for Centrum Silver 0834 (Given - Provider: Helena Womack RN) 0835 (Given - Provider: Ashley Joiner, SHIRLEY) 1046 [...] Shanda Betancourt, SHIRLEY)1200 (Given - Provider: Shanda Betancourt, SHIRLEY) polyethylene glycol (GLYCOLAX) packet 17 g 17 g Daily, oral, First dose on Sat12/15/21 at 1030, DISSOLVE IN 8 OUNCES OF WATER, JUICE, SODA, COFFEE OR TEA 1030 (Due) 0832 (Given - Provider: Ashley Joiner RN) 1049 (Given - Provider: Shanda Betancourt RN) pregabalin (LYRICA) capsule 150 mg 150 mg Daily, oral, First dose (after last modification) on 12/16/21 at 2000 2052 (Given - Provider: Rosaline Teran) pregabalin (LYRICA) capsule 75 mg (CANCELED) 75 mg Daily, oral, First dose on Mary 12/14/21 at 1500 0834 (Given - Provider: Helena Womack RN) 1048 (Not Given - Provider: Ashley Joiner RN - Reason: Per MD Order) PRN Medication Order 12/15/2021 12/16/2021 12/17/2021 acetaminophen (TYLENOL) tablet 1,000 mg 1,000 mg Every 6 hours PRN, oral, mild pain (1-3), moderate pain (4-6), and severe pain, Starting on Mary 12/14/21 at 1436, Recommended maximum dose of acetaminophen is 4000 mg from all sources in 24 hours, Phase II/On Unit 2142 (Given - Provider: Lianna Chilel RN) 1334 (Given - Provider: Ashley Joiner, SHIRLEY)2053 (Given - Provider: Rosaline Teran) 1047 (Given [...] Sat12/17/21 at 1119 1346 (Given - Provider: Shadna Betancourt RN) ondansetron (ZOFRAN) tablet 4 mg(Linked Group 1) [...] Provider: Rosaline Teran)1346 (Given - Provider: Shanda Betancourt, SHIRLEY) Linked Groups Order Group 1: ondansetron (ZOFRAN) [...] Unit documented in this encounter Care Teams Access Coordinator Relationship Specialty Start Date End Date Estella Hutchinson MD [address] [place], [place] [id number] PCP - General General Internal Medicine 02/18/2105/19 documented as of this encounter
--- OUTSIDE RECORDS SUMMARY | 2024-01-26 15:04 | XMS_ITS | Encounter Summary ---
Author Organization [employer] Address [address] [place] [address] Care Team Providers Care Log Loader Helper Name Role Phone Mayank Angel MD Primary Care Provider [phone] Encounter Details Date Type Department Care Team (Latest Contact Info) Description 06/10/2022 Travel Social History Tobacco Use Types Packs/Day [...] in a senior living (including now)? No 06/11/2022 Comments No Sex [...] on filedocumented in this encounter Care Teams Log Loader Helper Relationship Specialty [place] [id number] [address] [address] PCP - General Family Medicine 06/07/22 06/05/23 documented as of this encounter
--- OUTSIDE RECORDS SUMMARY | 2024-01-26 15:07 | XMS_ITS | Encounter Summary ---
Author Organization [facility] Address [address] [place] [address] Care Team Providers Care Power Plant Mechanic Name Role Phone Renetta Lopez CARDIO TECH Primary Care Provider [phone] Reason for Visit * Reason Onset Date Comments Lab Reminder 08/06/2023 Encounter Details Date Type Department Care Team (Late st Contact Info) Description 08/06/2023 Telephone [facility] [place] [address] [facility] [place] [address] Kacy Delaney, CARDIO TECH [address] [place] [address] Lab Reminder Social History Tobacco Use Types Packs/Day Years Used Date Smoking Tobacco: Never Smokeless Tobacco: Never Alcohol Use Standard Drinks/Week Comments Never 0 (1 standard drink = 0.6 oz pur e alcohol) PHQ-2 Answer Date Recorded Patient Health Questionnaire-2 Score 0 07/04/2023 Comments No Sex and Gender Information Value Date Recorded Sex Assigned at Not on file Legal Sex Female 6:00 PM EDT Gender Identity Not on file Sexual Orientation Not on file documented as of this encounter Miscellaneous Notes * Telephone Encounter - Essence Mairn - 08/06/2023 9:42 AM EDT Reached out to patient regarding needed labs. No answer, left message to callback. Will follow as needed. documented in this encounter Plan of Treatment Upcoming Encounters Date Type Department Care Team (Late st Contact Info) Description 01/30/2024 4:00 PM EST Office Visit [facility] [place] [address], [address] [place] [address] Kacy Delaney, CARDIO TECH [address] [place] [address] 02/21/2024 3:15 PM EST Appointment [facility] [address] [place] [address] 02/27/2024 11:00 AM EST [facility] [address] [place] [address] 02/27/2024 11:40 AM EST Office Visit [facility] Medicine Specialties [address] [place] [address] Rebecca Zhou, CARDIO TECH, DNP [address] [place] [address] documented as of this encounter Visit Diagnoses Not on filedocumented in this encounter Additional Health Concerns Assessment Noted Time A fall risk assessment has been complete d for the patient 07/04/2023 2:09 PM EDT A Body Mass Index follow-up plan has been documented for the patient 07/04/2023 2:46 PM EDT documented as of this encounter Care Teams Power Plant Mechanic Relationship Specialty Start Date End Date Renetta Lopez, CARDIO TECH [address] [place] [address] PCP - General 09/13/22 documented as of this encounter
--- OUTSIDE RECORDS SUMMARY | 2024-01-26 15:07 | XMS_ITS | Encounter Summary ---
Author Organization [facility] Address [address] [place] [address] Care Team Providers Care Plumbing Installer Name Role Phone Geeta Esteban APRN Primary Care Provider [phone] Reason for Visit * Reason Comments Psoriatic arthritis Encounter Details Date Type Department Care Team (Latest Contact Info) Description 09/16/2023 3:45 PM EDT Office Visit [facility] [address] [address] Carlton Sims MD [address] [facility] [address] [place] [address] Psoriatic arthritis (Primary Dx); Amyloidosis, unspecified type; Left hip pain; Osteoarthritis of lumbar spine, unspecified spinal osteoarthritis complication status; High risk medication use; Pain management; Osteopenia of multiple sites; Raynaud's phenomenon without gangrene; Vitamin D deficiency; Hypervitaminosis D Social History Tobacco Use Types Packs/Day Years Used Date Smoking Tobacco: Never Passive Smoke Exposure: Past Smokeless Tobacco: Never Alcohol Use Standard Drinks/Week Comments Never 0 (1 standard drink = 0.6 oz pur e alcohol) Abuse Screen Answer Date Recorded Unsafe at Home or Work/School Not on file Feels Threatened by Someone? Not on file 10/2022 Does Anyone Keep You from Co ntacting Others or Doint Things Outside the Home? Not on file 11/26/2022 Physical Sign of Abuse Present Not on file 1 Housing Stability Answer Date Recorded Current Living Arrangements Not on file 10/2022 Potentially Unsafe Housing Conditions Not on vasyl e 11/26/2022 Family and Community Support Answer Amrit e Recorded Help with Day-to-Day Activities Not on file 11/26/2022 Lonely or Isolated Not on file 11/26/2022 Employment Answer Date Recorded Do you want help finding or keeping work or a kevin b? Not on file 11/26/2022 Disabilities Answer Date Recorded Concentrating, Remembering, or Making Decisions Difficulty Not on file 11/26/2022 Doing Errands Independently Difficulty Not on fi le 11/26/2022 Education Answer Date Recorded Help with school or training? Not on file Preferred Language Not on file 11/26/2022 Comments Unknown Sex and Gender Information Value Date Recorded Sex Assigned at Not on file Legal Sex Female 10:35 AM EDT Gender Identity Not on file Sexual Orientation Not on file documented as of this encounter Last Filed Vital Signs Vital Sign Reading Time Taken Comments Blood Pressure 128/76 09/16/2023 3:49 PM EDT Pulse 62 09/16/2023 3:49 PM EDT Temperature 36.7 ??C (98 ??F) 09/16/2023 3:49 PM EDT Respiratory Rate - - Oxygen Saturation - - Inhaled Oxygen Concentration - - Weight 68.4 kg (150 lb 12.8 oz) 09/16/2023 3:49 PM EDT Height 160 cm (5' 2.99 ) 09/16/2023 3:49 PM EDT Body Mass Index 26.72 09/16/2023 3:49 PM EDT documented in this encounter Progress Notes * Carlton Sims MD - 09/16/2023 3:45 PM EDTAssociated Problem(s): Psoriatic arthritis Suspected due to erosions noted in the right wrist on X ray and ongoing synovitis. Also, concern for involvement of the feet. Likely erosions on XR of the hips 09/29/2020 Failed Rx: Plaquenil (no relief), sulfasalazine (no relief) Current Rx: methotrexate 20 mg weekly and daily folic acid She appears to do well. I reviewed a printout on labs from last week. She had leukopenia and elevated Vitamin D. I will stop Vitamin D. Swollen joint count is: 0, Tender joint count is: 0, Physician global is: 0, VAS is: 7, Patient global is: 3. She is doing well other than back and LLE pain, likely radicular. She has no swollen or tender joints. - Continue methotrexate at 20 mg po weekly. We will watch WBC and LFT closely. - 2 daily folic acid - labs every 6 weeks F/u in 3 months. * Carlton Sims MD - 09/16/2023 3:45 PM EDTAssociated Problem(s): Amyloidosis This is a new diagnosis in 05/2022 after she had a post-operative heart attack after her most recent back surgery. She is following with at Cardiology and also has Dr. Mcallister, a church supervisor at [facility]. He is followed at [facility]. * Carlton Sims MD - 09/16/2023 3:45 PM EDTAssociated Problem(s): Left hip pain She got x-rays of the LT hip 09/2020 which showed lucencies which could be erosions or large subchondral cysts, she also had x-ray of lumbar spine with scoliosis and degenerative changes. She had a flare up of her hip pain in 11/2021 and had and MRI of her left hip (12/2021) that showedno mass, no labral tear, no significant joint effusion is seen. There is a small tear of the distalleft gluteus minimus tendon. There are moderate partial tears at the origins of the hamstring's tendons bilaterally. Continue to follow up with orthopedics and PT. Pain is likely neuritic. - Continue follow up with CRISTOFER Angulo at [facility] . - Continue 50 mg of Lyrica in the morning and 150 mg of Lyrica at night before bed. - She is unable to take NSAIDs related to history of heart disease and chronic kidney disease. * Carlton Sims MD - 09/16/2023 3:45 PM EDTAssociated Problem(s): Degenerative arthritis of lumbar spine She had a fusion with Dr. Lito CLEVELAND at (11/2021) and had another surgery in 05/2022. She has been released from .. - Continue Lyrica - She can follow up with NS as needed. - Continue physical therapy exercises. I urged her to see her neurosurgeon. * Carlton Sims MD - 09/16/2023 3:45 PM EDTAssociated Problem(s): High risk medication use Methotrexate. She will need every 6 to 8-week labs. * Carlton Sims MD - 09/16/2023 3:45 PM EDTAssociated Problem(s): Pain management Lyrica. pain contract signed - CHERYL reviewed - No signs of misuse or diversion - UDS ordered 03/13 * Carlton Sims MD - 09/16/2023 3:45 PM EDTAssociated Problem(s): Osteopenia DEXA (03/01/2022) showed osteopenia in the left femoral neck with T score -1.1, which showed improvement in bone density since her last DEXA in 10/2021. She has osteopenia in her right forearm with Tscore -2.0 Current Rx: Prolia (started 2019). Continue Prolia every 6 months. Last injection 09/16/2023. - DEXA every 2 years; 02/2024 We discussed the risks and benefits of starting prolia including but not limited to injection reaction, increase risk of infection, hypocalcemia, osteonecrosis of the jaw, atypical fractures,.etc. Vitamin D was elevated at 120. Stop supplements. Recheck with next labs. * Carlton Sims MD - 09/16/2023 3:45 PM EDTAssociated Problem(s): Raynaud's phenomenon without gangrene Diltiazem per cardiology no current issues. - To help prevent the occurrence of Raynaud's phenomenon, preventative measures involve avoiding caffeine, not smoking, keeping the entire body warm, avoiding cold when possible and wearing gloves ormittens when exposed to colder temperatures. * Carlton Sims MD - 09/16/2023 3:45 PM EDT Images from the original note were not included. Office Follow Up Date: 09/16/2023 Patient Name: Chen Merritt Date of : 1940 Referring Physician: Provider, No Known Chief Complaint: Psoriatic arthritis. History of Present Illness: Chen Merritt is a 83 y.o. female who is here today for follow up on psoriatic arthritis, osteoporosis, osteoarthritis, and spinal stenosis. She has psoriatic arthritis and is on methotrexate 20 mg weekly and daily folic acid. She is also on Prolia for osteopenia.. Gets Prolia at [facility]. Most recent 09/16/23. No SE's. Still with back and leg pain. She rates her pain as 7/10 with 2 hours of morning stiffness. Her left leg is bothering her quite a bit. She had back surgery that was performed in 05/2022. The leg pain has persisted. She is having pain in her L leg from her back to the knee. Had normal hip X-ray at [facility] per daughter. Shoulders are weak but little pain. Biofreeze is helpful. She also alternates with Voltaren gel. 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 No problems with MTX. Regarding psoriatic arthritis, Pain scale: 7/10. The primary symptoms reported include: stiffness. The following symptoms are not reported: pain. Associated symptoms include change in vision. Pertinent negatives include fever, fatigue, AM stiffness, sicca complaints, skin lesion(s), chest pain, changing cough, edema and abdominal pain.No swelling. Regarding her spinal stenosis, Associated symptoms include paresthesia. Pertinent negatives includeclaudication, diarrhea, dyspnea, fatigue, fever, incontinence (urinary), rash and weight loss. Labs showed mild elevation LFT, leukopenia, and significant elevation of Vitamin D. Subjective Review of Systems: Review of Systems Constitutional: Negative for chills, fatigue, fever and unexpected weight loss. HENT: Negative for dental problem, mouth sores, sinus pressure and swollen glands. Eyes: Negative for photophobia, pain and redness. Respiratory: Negative for apnea, cough, chest tightness and shortness of breath. Cardiovascular: Negative for chest pain and leg swelling. Gastrointestinal: Negative for abdominal pain, diarrhea, nausea and GERD. Genitourinary: Negative for dysuria and hematuria. Skin: Negative for dry skin, rash, skin lesions and bruise. Neurological: Negative for dizziness, seizures, syncope, weakness, headache and memory problem. Hematological: Negative for adenopathy. Does not bruise/bleed easily. Psychiatric/Behavioral: Negative for sleep disturbance, suicidal ideas, depressed mood and stress. The patient is not nervous/anxious. All other systems reviewed and are negative. Medications: Current Outpatient Medications: ??? aspirin 81 MG EC tablet, Take 1 tablet by mouth Daily., Disp: , Rfl: ??? atorvastatin (LIPITOR) 40 MG tablet, Take 1 tablet by mouth Daily., Disp: , Rfl: ??? calcium carbonate (OS-JASMEET) 1250 (500 Ca) MG tablet, Take 1 tablet by mouth 2 (Two) Times a Day., Disp: , Rfl: ??? cetirizine (zyrTEC) 10 MG tablet, Take 1 tablet by mouth Daily., Disp: , Rfl: ??? Cholecalciferol (Vitamin D3) 1000 units capsule, Take 1 capsule by mouth Daily., Disp: , Rfl: ??? denosumab (Prolia) 60 MG/ML solution prefilled syringe syringe, Inject 1 mL under the skin intothe appropriate area as directed Every 6 (Six) Months., Disp: , Rfl: ??? Diclofenac Sodium (VOLTAREN) 1 % gel gel, Apply 2 g topically to the appropriate area as directed 3 (Three) to 4 (Four) times daily., Disp: , Rfl: ??? dilTIAZem CD (CARDIZEM CD) 180 MG 24 hr capsule, Take 1 capsule by mouth Daily., Disp: , Rfl: ??? docusate sodium (COLACE) 100 MG capsule, Take 3 capsules by mouth 3 (Three) Times a Day As Needed for Constipation. At bedtime as needed, Disp: , Rfl: ??? ferrous sulfate 325 (65 FE) MG tablet, Take 1 tablet by mouth Daily., Disp: , Rfl: ??? folic acid (FOLVITE) 1 MG tablet, Take 2 tablets by mouth Daily. 1 tablet by oral route every day, Disp: 180 tablet, Rfl: 1 ??? methotrexate 2.5 MG tablet, Take 8 tablets by mouth 1 (One) Time Per Week., Disp: 96 tablet, Rfl: 0 ??? metoprolol succinate XL (TOPROL-XL) 25 MG 24 hr tablet, Take 1 tablet by mouth 2 (Two) Times a Day., Disp: , Rfl: ??? multivitamin with minerals (CENTRUM SILVER PO), Take 1 tablet by mouth Daily. 0.0ov-110owl-182 mcg, Disp: , Rfl: ??? pantoprazole (PROTONIX) 40 MG pack packet, Take 1 packet by mouth Daily. Mix in 1 teaspoonful of applesauce or apple juice, Disp: , Rfl: ??? pregabalin (LYRICA) 50 MG capsule, Take 4 capsules by mouth Daily. 1 cap in the morning and 3 capsules by oral route every bedtime, Disp: 120 capsule, Rfl: 2 ??? triamcinolone (KENALOG) 0.5 % cream, Apply 1 Application topically to the appropriate area as directed 2 (Two) Times a Day. To affected areas, Disp: , Rfl: No current facility-administered medications for this visit. Allergies: Allergies Allergen Reactions ??? Codeine Unknown - Low Severity ??? Nitrofurantoin Rash I have reviewed and updated the patient's chief complaint, history of present illness, review of systems, past medical history, surgical history, family history, social history, medications and allergy list as appropriate. Objective Vital Signs: Vitals: 09/16/23 1549 BP: 128/76 Pulse: 62 Temp: 98 ??F (36.7 ??C) Weight: 68.4 kg (150 lb 12.8 oz) Height: 160 cm (62.99 ) PainSc: 7 PainLoc: Leg Comment: Left thigh Body mass index is 26.72 kg/m??. Physical Exam: GENERAL: The patient is well-developed and well nourished. Cooperative and oriented x3. Affect is normal. Hydration appears normal. HEENT: Normocephalic and atraumatic. No notable alopecia. No facial rash. Lids and conjunctiva are normal. Pupils are equal and sclerae are clear. I see no oral or nasal ulcers. Lips, teeth, and gumsare within normal limits. Oropharynx is clear. NECK: Neck is supple without adenopathy, masses, or thyromegaly. CARDIOVASCULAR: Normal S1, S2. No murmurs are heard. LUNGS: Clear to auscultation and percussion. ABDOMEN: Soft and nontender without masses or hepatosplenomegaly. EXTREMITIES: No edema. No cyanosis or clubbing. SKIN: Palpation and inspection are normal. NEUROLOGIC: Antalgic gait. Severe osteoarthritis in her thumbs bilaterally. MUSCULOSKELETAL: Complete joint exam was performed. There was full range of motion of the shoulders, elbows, wrists, and hands without notable deformities, soft tissue swelling, synovitis, or atrophyexcept as noted. She has squaring of the first CMC joints. She has Heberden's nodes in all DIPs worse in the bilateral 2nd DIP. large Myrna's node in the left 2nd PIP. She has smaller Myrna's nodes in many of the rest of the PIPs. Hips have good flexion and internal and external rotation. Knees have no palpable effusions. There is full flexion and full extension of the knees without pain. Ankles have no soft tissue swelling or synovitis or major deformities. BACK: Straight without scoliosis. Joint Exam 09/16/2023 The following joints were examined and normal: Left Glenohumeral, Right Glenohumeral, Left Elbow, Right Elbow, Left Wrist, Right Wrist, Left MCP 1, Right MCP 1, Left MCP 2, Right MCP 2, Left MCP 3, Right MCP 3, Left MCP 4, Right MCP 4, Left MCP 5, Right MCP 5, Left IP (thumb), Right IP (thumb), Left PIP 2 (finger), Right PIP 2 (finger), Left PIP 3 (finger), Right PIP 3 (finger), Left PIP 4 (finger), Right PIP 4 (finger), Left PIP 5 (finger), Right PIP 5 (finger), Left Knee, Right Knee Patient Global: 3 / 100 Provider Global: 0 / 100 Assessment / Plan Assessment & Plan Psoriatic arthritis Suspected due to erosions noted in the right wrist on X ray and ongoing synovitis. Also, concern for involvement of the feet. Likely erosions on XR of the hips 09/29/2020 Failed Rx: Plaquenil (no relief), sulfasalazine (no relief) Current Rx: methotrexate 20 mg weekly and daily folic acid She appears to do well. I reviewed a printout on labs from last week. She had leukopenia and elevated Vitamin D. I will stop Vitamin D. Swollen joint count is: 0, Tender joint count is: 0, Physician global is: 0, VAS is: 7, Patient global is: 3. She is doing well other than back and LLE pain, likely radicular. She has no swollen or tender joints. - Continue methotrexate at 20 mg po weekly. We will watch WBC and LFT closely. - 2 daily folic acid - labs every 6 weeks F/u in 3 months. Amyloidosis, unspecified type This is a new diagnosis in 05/2022 after she had a post-operative heart attack after her most recent back surgery. She is following with at Cardiology and also has Dr. Mcallister, a church supervisor at [facility]. He is followed at [facility]. Left hip pain She got x-rays of the LT hip 09/2020 which showed lucencies which could be erosions or large subchondral cysts, she also had x-ray of lumbar spine with scoliosis and degenerative changes. She had a flare up of her hip pain in 11/2021 and had and MRI of her left hip (12/2021) that showedno mass, no labral tear, no significant joint effusion is seen. There is a small tear of the distalleft gluteus minimus tendon. There are moderate partial tears at the origins of the hamstring's tendons bilaterally. Continue to follow up with orthopedics and PT. Pain is likely neuritic. - Continue follow up with CRISTOFER Angulo at [facility] . - Continue 50 mg of Lyrica in the morning and 150 mg of Lyrica at night before bed. - She is unable to take NSAIDs related to history of heart disease and chronic kidney disease. Osteoarthritis of lumbar spine, unspecified spinal osteoarthritis complication status She had a fusion with Dr. Lito CLEVELAND at (11/2021) and had another surgery in 05/2022. She has been released from .. - Continue Lyrica - She can follow up with NS as needed. - Continue physical therapy exercises. I urged her to see her neurosurgeon. High risk medication use Methotrexate. She will need every 6 to 8-week labs. Pain management Lyrica. pain contract signed - CHERYL reviewed - No signs of misuse or diversion - UDS ordered 03/13 Osteopenia of multiple sites DEXA (03/01/2022) showed osteopenia in the left femoral neck with T score -1.1, which showed improvement in bone density since her last DEXA in 10/2021. She has osteopenia in her right forearm with Tscore -2.0 Current Rx: Prolia (started 2019). Continue Prolia every 6 months. Last injection 09/16/2023. - DEXA every 2 years; 02/2024 We discussed the risks and benefits of starting prolia including but not limited to injection reaction, increase risk of infection, hypocalcemia, osteonecrosis of the jaw, atypical fractures,.etc. Vitamin D was elevated at 120. Stop supplements. Recheck with next labs. Raynaud's phenomenon without gangrene Diltiazem per cardiology no current issues. - To help prevent the occurrence of Raynaud's phenomenon, preventative measures involve avoiding caffeine, not smoking, keeping the entire body warm, avoiding cold when possible and wearing gloves ormittens when exposed to colder temperatures. Vitamin D deficiency Stop Vit D supplements. Hypervitaminosis D Recheck in 6 weeks off Vitamin D. New Medications Ordered This Visit Medications ??? folic acid (FOLVITE) 1 MG tablet Sig: Take 2 tablets by mouth Daily. 1 tablet by oral route every day Dispense: 180 tablet Refill: 1 ??? methotrexate 2.5 MG tablet Sig: Take 8 tablets by mouth 1 (One) Time Per Week. Dispense: 96 tablet Refill: 0 ??? pregabalin (LYRICA) 50 MG capsule Sig: Take 4 capsules by mouth Daily. 1 cap in the morning and 3 capsules by oral route every bedtime Dispense: 120 capsule Refill: 2 Follow Up: Return in about 3 months (around 12/17/2023). Carlton Sims MD [facility] [place] documented in this encounter Plan of Treatment Upcoming Encounters Date Type Department Care Team (Late st Contact Info) Description 03/02/2024 1:30 PM EST Appointment [facility] [address] [place] [address] [address] [place] [address] Scheduled Orders Name Type Priority Associated Diagnoses Orde r Schedule CBC Auto Differential Lab Routine High risk medication use Every 6 weeks for 6 Occurrences starting 09/16/2023 until 09/16/2024 Comprehensive Metabolic Panel Lab Routine High risk medication use Every 6 weeks for 6 Occurrences starting 09/16/2023 until 09/16/2024 C-reactive Protein Lab Routine Psoriatic arthritis Every 6 weeks for 6 Occurrences starting 09/16/2023 until 09/16/2024 Sedimentation Rate Lab Routine Psoriatic arthritis Every 6 weeks for 6 Occurrences starting 09/16/2023 until 09/16/2024 Vitamin D,25-Hydroxy Lab Routine Vitamin D deficiency Expected: 03/02/2024 (Approximate), Expires: 09/15/2024 documented as of this encounter Visit Diagnoses Diagnosis Psoriatic arthritis- Primary Psoriatic arthropathy Amyloidosis, unspecified type Left hip pain Pain in joint, pelvic region and thigh Osteoarthritis of lumbar spine, unspecified spinal osteoarthritis complication status High risk medication use Pain management Osteopenia of multiple sites Raynaud's phenomenon without gangrene Vitamin D deficiency Hypervitaminosis D documented in this encounter Care Teams Plumbing Installer Relationship Specialty Start Date End Date Geeta Esteban APRN [address] [place] [address] PCP - General Internal Medicine 09/16/23 documented as of this encounter
--- OUTSIDE RECORDS SUMMARY | 2024-01-26 15:07 | XMS_ITS | Encounter Summary ---
Author Organization Healthcare Address [address] [place] [address] Care Team Providers Care Dining Room Attendant Name Role Phone Renetta Lopez USABILITY ENGINEER Primary Care Provider [phone] Encounter Details Date Type Department Care Team (Latest Contact Info) Description 01/24/2024 Travel Social History Tobacco Use Types Packs/Day Years Used Date Smoking Tobacco: Never Smokeless Tobacco: Never Alcohol Use Standard Drinks/Week Comments Never 0 (1 standard drink = 0.6 oz pur e alcohol) PHQ-2 Answer Date Recorded Patient Health Questionnaire-2 Score 0 10/03/2023 Comments No Sex and Gender Information Value Date Recorded Sex Assigned at Not on file Legal Sex Female 6:00 PM EDT Gender Identity Not on file Sexual Orientation Not on file documented as of this encounter Plan of Treatment Upcoming Encounters Date Type Department Care Team (Late st Contact Info) Description 01/30/2024 4:00 PM EST Office Visit [facility] [place] [address] [facility] [facility], [address] [place] [address] Kacy Delaney, USABILITY ENGINEER [address] [place] [address] 02/21/2024 3:15 PM EST Appointment [facility] [address] [place] [address] 02/27/2024 11:00 AM EST Ancillary Procedure [facility] [address] [place] [address] 02/27/2024 11:40 AM EST Office Visit [facility] [address] [place] [address] Rebecca Zhou APRN, DNP [address] [place] [address] documented as of this encounter Visit Diagnoses Not on filedocumented in this encounter Additional Health Concerns Assessment Noted Time A fall risk assessment has been complete d for the patient 10/03/2023 2:05 PM EDT A Body Mass Index follow-up plan has been documented for the patient 10/03/2023 2:48 PM EDT documented as of this encounter Care Teams Dining Room Attendant Relationship Specialty Start Date End Date Renetta Lopez APRN [address] [place] [address] PCP - General 09/13/22 documented as of this encounter
--- OUTSIDE RECORDS SUMMARY | 2024-01-26 15:07 | XMS_ITS | Encounter Summary ---
Author Organization Healthcare Address [address] [place] [address] Care Team Providers Care Lacing String Cutter Name Role Phone Renetta Lopez STAFF ATTORNEY Primary Care Provider [phone] Encounter Details Date Type Department Care Team (Latest Contact Info) Description 10/03/2023 Travel Social History Tobacco Use Types Packs/Day [...] Description 01/30/2024 4:00 PM EST Office Visit [facility] [place] [address] [facility], [address] [place] [phone] Kacy Delaney, STAFF ATTORNEY [address] [place] [address] 02/21/2024 3:15 PM EST Appointment [facility] [address] [place] [address] 02/27/2024 11:00 AM EST Ancillary Procedure [facility] [address], [address] [place] [address] 02/27/2024 11:40 AM EST Office Visit [facility] [address], [address] [place] [address] Rebecca Zhou APRN, DNP [address] [place] [address] documented as of this encounter Visit Diagnoses Not on filedocumented in this encounter Additional Health Concerns Assessment Noted Time A fall risk assessment has been complete d for the patient 10/03/2023 2:05 PM EDT A Body Mass Index follow-up plan has been documented for the patient 10/03/2023 2:48 PM EDT documented as of this encounter Care Teams Lacing String Cutter Relationship Specialty Start Date End Date Renetta Lopez APRN [address] [place] [address] PCP - General 09/13/22 documented as of this encounter
--- OUTSIDE RECORDS SUMMARY | 2024-01-26 15:07 | XMS_ITS | Encounter Summary ---
Author Organization [facility] yste Address [address] [place] [address] Care Team Providers Care Mottler Machine Feeder Name Role Phone Geeta Esteban SENIOR WIND ENERGY CONSULTANT Primary Care Provider [phone] Encounter Details Date Type Department Care Team (Late st Contact Info) Description 09/16/2023 Telephone [facility] R[facility]Y [address] [facility] [address] [place] [address] Carlton Sims MD [address] [facility] [place] [place] [id number] Social History Tobacco Use Types Packs/Day Years [...] encounter Miscellaneous Notes * Telephone Encounter - Estella Angeles MA - 09/17/2023 8:43 AM EDT requested * Telephone Encounter - Carlton Sims MD - 09/16/2023 4:08 PM EDT Please get labs done at [facility] last Saturday. documented in this encounter Plan of Treatment Upcoming Encounters Date Type Department Care Team (Late st Contact Info) Description 03/02/2024 1:30 PM EST Appointment [facility] [address] [place] [address] documented as of this encounter Visit Diagnoses Not on filedocumented in this encounter Care Teams Mottler Machine Feeder Relationship Specialty Start Date End Date Geeta Esteban APRN [address] [place] [address] [address] [facility] [address] PCP - General Internal Medicine 09/16/23 documented as of this encounter
--- OUTSIDE RECORDS SUMMARY | 2024-01-26 15:07 | XMS_ITS | Encounter Summary ---
Author Organization [facility] Address [address] [place] [address] Care Team Providers Care Grinder Set Up Operator Centerless Name Role Phone Renetta Lopez APRN Primary Care Provider [phone] Reason for Visit * Episode Based Medications (Routine) - Closed Specialty Diagnoses / Procedures Referred By Contac t Referred To Contact Diagnoses Osteoporosis, unspecified osteoporosis type, unspecified pathological fracture presence Procedures NE DENOSUMAB INJECTION Hermes Damon, [facility] [address] [place] [address] Phone: tel: fax: Referral ID Status Reason Start Date Expiration Date Visits Re quested Visits Authorized [id number] Closed 09/03/2022 09/02/2024 1 1 Encounter Details Date Type Department Care Team (Latest Contact Info) Description 03/18/2023 3:06 PM EST - 03/18/2023 11:59 PM EST Hospital Encounter [facility] [address] [facility] [address] [place] [address] Jazmine Ospina MD [address] [place] [address] Osteoporosis, unspecified osteoporosis type, unspecified pathological fracture presence (Primary Dx) Discharge Disposition: Home or Self Care Social History Tobacco Use Types Packs/Day Years Used Date Smoking Tobacco: Never Assessed Abuse Screen Answer Date Recorded Unsafe at [...] Sign Reading Time Taken Comments Blood Pressure 195/80 03/18/2023 3:11 PM EST Pulse 71 03/18/2023 3:11 PM EST Temperature 36.1 ??C (97 ??F) 03/18/2023 3:11 PM EST Respiratory Rate 16 03/18/2023 3:11 PM EST Oxygen Saturation - - Inhaled Oxygen Concentration - - Weight 69.4 kg (153 lb) 03/18/2023 3:11 PM EST Height 160 cm (5' 3 ) 03/18/2023 3:11 PM EST Body Mass Index 27.1 03/18/2023 3:11 PM EST documented in this encounter Medications at Time of Discharge HYDROcodone-aceta minophen (NORCO) 5-325 MG per tablet Take 1 tablet by mouth every 4-6 hours as needed for pain 41 tablet 06/30/2018 1:53 PM EDT 06/30/2018 09/16/2023 documented as of this encounter Progress Notes * Abby Franks RN - 03/18/2023 3:30 PM Dionisio addended by: Abby Franks, RN on: 03/18/2023 3:25 PM Actions taken: Therapy plan modified documented in this encounter Plan of Treatment Upcoming Encounters Date Type Department Care Team (Late st Contact Info) Description 03/02/2024 1:30 PM EST Appointment [facility] [address] [place] [address] [address] [place] [address] documented as of this encounter Visit Diagnoses Diagnosis Osteoporosis, unspecified osteoporosis type, unspecified pathological fracture presence- Primary documented in this encounter Administered Medications Inactive Administered Medications - up to 3 most recent administrations Medication Order MAR Action Action Date Dose Rate Site denosumab (PROLIA) syringe 60 mg 60 mg, Subcutaneous, Once, On 03/18/23 at 1513, For 1 dose, In the upper arm, upper thigh or abdomenIndications:Osteoporosi s, unspecified osteoporosis type, unspecified pathological fracture presence Given 03/18/2023 3:20 PM EST 60 mg Right Arm documented in this encounter Care Teams Grinder Set Up Operator Centerless Relationship Specialty Start Date End Date Renetta Lopez APRN [address] [place] [address] PCP - General Nurse Practitioner 09/13/22 09/15/23 documented as of this encounter
--- OUTSIDE RECORDS SUMMARY | 2024-01-26 15:07 | XMS_ITS | Encounter Summary ---
Author Organization [facility] Address [address] [place] [address] Care Team Providers Care Comic Writer Name Role Phone Renetta Lopez APRN Primary Care Provider [phone] Reason for Visit * Reason Comments Med Refill Encounter Details Date Type Department Care Team (Late st Contact Info) Description 08/03/2023 Refill [facility] [place] [address], [address] [place] [address] Kacy Delaney, CHILD WELFARE COUNSELOR [address] [place] [address] Social History Tobacco Use Types Packs/Day Years [...] Description 01/30/2024 4:00 PM EST Office Visit [facility] [place] [address], [address] [place] [address] Kacy Delaney, CHILD WELFARE COUNSELOR [address] [place] [address] 02/21/2024 3:15 PM EST Appointment [facility] [address] [place] [address] 02/27/2024 11:00 AM EST Ancillary Procedure [facility] [address], [address] [place] [address] 02/27/2024 11:40 AM EST Office Visit [facility] [address], [address] [place] [address] Rebecca Zhou, CHILD WELFARE COUNSELOR, DNP [address] [place] [address] documented as of this encounter Visit Diagnoses Not on filedocumented in this encounter Additional Health Concerns Assessment Noted Time A fall risk assessment has been complete d for the patient 07/04/2023 2:09 PM EDT A Body Mass Index follow-up plan has been documented for the patient 07/04/2023 2:46 PM EDT documented as of this encounter Care Teams Comic Writer Relationship Specialty Start Date End Date Renetta Lopez, CHILD WELFARE COUNSELOR [address] [place] [address] PCP - General 09/13/22 documented as of this encounter
--- OUTSIDE RECORDS SUMMARY | 2024-01-26 15:07 | XMS_ITS | Encounter Summary ---
Author Organization [facility] Address [address] [place] [address] Care Team Providers Care Leaf Stamper Name Role Phone Renetta Lopez APRN Primary Care Provider [phone] Reason for Visit * Reason Onset Date Comments Results 08/14/2023 Encounter Details Date Type Department Care Team (Late st Contact Info) Description 08/14/2023 Telephone [facility] RHE[facility] [address] [address] Carlton Sims MD [address] [facility] [address] [place] [address] Results Social History Tobacco Use Types Packs/Day [...] encounter Miscellaneous Notes * Telephone Encounter - Dominguez Wise MA - 08/14/2023 11:30 AM EDT Faxed scanned labs to PCP and pt has been notified of results. documented in this encounter Plan of Treatment Upcoming Encounters Date Type Department Care Team (Late st Contact Info) Description 03/02/2024 1:30 PM EST Appointment [facility] [address] [place] [address] [address] [place] [address] documented as of this encounter Visit Diagnoses Not on filedocumented in this encounter Care Teams Leaf Stamper Relationship Specialty Start Date End Date Renetta Lopez APRN [address] [place] [address] PCP - General Nurse Practitioner 09/13/22 09/15/23 documented as of this encounter
--- OUTSIDE RECORDS SUMMARY | 2024-01-26 15:07 | XMS_ITS | Encounter Summary ---
Author Organization [facility] Address [address] [place] [address] Care Team Providers Care Carriage Dogger Name Role Phone Renetta Lopez APRN Primary Care Provider [phone] Reason for Visit * Reason Onset Date Comments Medication Clarification 08/26/2023 Encounter Details Date Type Department Care Team (Late st Contact Info) Description 08/26/2023 Telephone [facility] RHE[facility]Y [address] [address] Carlton Sims MD 3000 [facility] [place] [address] [place] [address] Medication Clarification Social History Tobacco Use Types Packs/Day Years [...] encounter Miscellaneous Notes * Telephone Encounter - Mike Albrecht RegSched Rep - 08/26/2023 12:41 PM EDT Carlene from [facility] pharmacy in [place] wanted to clarify the instructions for patient's folic acid. It was increased to 2mg daily. On previous messages Dr. Sims mentioned that he wanted to increase it to 2mg daily. Informed that pharmacy.at documented in this encounter Plan of Treatment Upcoming Encounters Date Type Department Care Team (Late st Contact Info) Description 03/02/2024 1:30 PM EST Appointment [facility] [address] [place] [address] documented as of this encounter Visit Diagnoses Not on filedocumented in this encounter Care Teams Carriage Dogger Relationship Specialty Start Date End Date Renetta Lopez APRN [address] [place] [address] PCP - General Nurse Practitioner 09/13/22 09/15/23 documented as of this encounter
--- OUTSIDE RECORDS SUMMARY | 2024-01-26 15:07 | XMS_ITS | Encounter Summary ---
Author Organization [facility] Address [address] [place] [address] Care Team Providers Care Hand Cloth Cutter Name Role Phone Renetta Lopez APRN Primary Care Provider [phone] Reason for Visit * Reason Comments Med Refill Encounter Details Date Type Department Care Team (Late st Contact Info) Description 09/28/2023 Refill [facility] [place] [address] [place] [address] Kacy Delaney, RECRUITMENT INTERNSHIP [address] [place] [address] Social History Tobacco Use Types [...] Description 01/30/2024 4:00 PM EST Office Visit [facility] [place] [address], [address] [place] [address] Kacy Delaney, RECRUITMENT INTERNSHIP [address] [place] [address] 02/21/2024 3:15 PM EST Appointment [facility] [address] [place] [address] 02/27/2024 11:00 AM EST Ancillary Procedure [facility] [address], [address] [place] [address] 02/27/2024 11:40 AM EST Office Visit [facility] [address], [address] [place] [address] Rebecca Zhou, RECRUITMENT INTERNSHIP, DNP [address] [place] [address] documented as of this encounter Visit Diagnoses Not on filedocumented in this encounter Additional Health Concerns Assessment Noted Time A fall risk assessment has been complete d for the patient 07/04/2023 2:09 PM EDT A Body Mass Index follow-up plan has been documented for the patient 07/04/2023 2:46 PM EDT documented as of this encounter Care Teams Hand Cloth Cutter Relationship Specialty Start Date End Date Renetta Lopez, RECRUITMENT INTERNSHIP [address] [place] [address] PCP - General 09/13/22 documented as of this encounter
--- OUTSIDE RECORDS SUMMARY | 2024-01-26 15:07 | XMS_ITS | Encounter Summary ---
Author Organization [facility] yste Address [address] [place] [address] Care Team Providers Care Editorial Specialist Name Role Phone Renetta Lopez APRN Primary Care Provider [phone] Encounter Details Date Type Department Care Team (Late st Contact Info) Description 09/13/2023 Telephone [facility] R[facility] [address] [facility] [address] [place] [address] Carlton Sims MD 3000 [facility] [address] [place], [place] [id number] Social History Tobacco Use Types Packs/Day Years [...] e 11/26/2022 Family and Community Support Answer Marit e Recorded Help with Day-to-Day Activities Not [...] encounter Miscellaneous Notes * Telephone Encounter - Tali Hardin RN - 09/13/2023 3:29 PM EDT I spoke with pt and made her aware she needs to have Vitamin D drawn prior to her Prolia appt on Saturday. I faxed the orders to [facility] and confirmed that the pt can come in until 5pm today and then 8-1 tomorrow. I faxed the orders to them and the pt is aware.The hold for CMP/Vitamin D is in the therapy plan. * Telephone Encounter - Carlton Sims MD - 09/13/2023 12:29 PM EDT I would very much like to have a vitamin D level. * Telephone Encounter - Tali Hardin RN - 09/13/2023 10:05 AM EDT This patient has a Prolia injection scheduled Saturday. I see where she has labs from 08/12/23 with a Calcium of 9.7, but last Vitamin D result was 90.7 on 02/21/23. Are you okay with them proceeding withProlia with these results? Thank you. documented in this encounter Plan of Treatment Upcoming Encounters Date Type Department Care Team (Late st Contact Info) Description 03/02/2024 1:30 PM EST Appointment [facility] [address] [place] [address] [address] [place] [address] documented as of this encounter Visit Diagnoses Not on filedocumented in this encounter Care Teams Editorial Specialist Relationship Specialty Start Date End Date Renetta Lopez APRN [address] [place] [address] PCP - General Nurse Practitioner 09/13/22 09/15/23 documented as of this encounter
--- OUTSIDE RECORDS SUMMARY | 2024-01-26 15:07 | XMS_ITS | Clinical Summary ---
[facility] Organization [facility] Address [address] [place] [address] Care Team Providers Care Helicopter Pilot Name Role Phone Geeta Esteban APRN Primary Care Provider [phone] Allergies Active Allergy Reactions Criticality Noted Date Comments Codeine Unknown - Low Severity Low 09/15/2023 Nitrofurantoin Rash Low 09/15/2023 Medications Cholecalciferol (Vitamin D3) 1000 units capsule Take 1 capsule by mouth Daily. Active dilTIAZem CD (CARDIZEM CD) 180 MG 24 hr capsule Take 1 capsule by mouth Daily. Active pantoprazole (PROTONIX) 40 MG pack packet Take 1 packet by mouth Daily. Mix in 1 teaspoonful of applesauce or apple juice Active aspirin 81 MG EC tablet Take 1 tablet by mouth Daily. Active atorvastatin (LIPITOR) 40 MG tablet Take 1 tablet by mouth Daily. Active cetirizine (zyrTEC) 10 MG tablet Take 1 tablet by mouth Daily. Active multivitamin with minerals (CENTRUM SILVER PO) Take 1 tablet by mouth Daily. 0.8iw-134prd-890 mcg Active calcium carbonate (OS-JASMEET) 1250 (500 Ca) MG tablet Take 1 tablet by mouth 2 (Two) Times a Day. Active metoprolol succinate XL (TOPROL-XL) 25 MG 24 hr tablet Take 1 tablet by mouth 2 (Two) Times a Day. Active docusate sodium (COLACE) 100 MG capsule Take 3 capsules by mouth 3 (Three) Times a Day As Needed for Constipation. At bedtime as needed Active denosumab (Prolia) 60 MG/ML solution prefilled syringe syringe Inject 1 mL under the skin into the appropriate area as directed Every 6 (Six) Months. Active triamcinolone (KENALOG) 0.5 % cream Apply 1 Application topically to the appropriate area as directed 2 (Two) Times a Day. To affected areas Active Diclofenac Sodium (VOLTAREN) 1 % gel gel Apply 2 g topically to the appropriate area as directed 3 (Three) to 4 (Four) times daily. Active ferrous sulfate 325 (65 FE) MG tablet Take 1 tablet by mouth Daily. Active folic acid (FOLVITE) 1 MG tablet Take 2 tablets by mouth Daily. 1 tablet by oral route every day 180 tablet 1 4 Active methotrexate 2.5 MG tablet Take 8 tablets by mouth 1 (One) Time Per Week. 96 tablet 4 Active pregabalin (LYRICA) 50 MG capsuleIndicati ons:Left hip pain,Pain management Take 4 capsules by mouth Daily. 1 cap in the morning and 3 capsules by oral route every bedtime 120 capsule 2 4 Active Active Problems Problem Noted Date Diagnosed Date Psoriatic arthritis 09/16/2023 Assessment & Plan (09/16/2023 4:39 PM EDT): Suspected due to erosions noted in the [...] every 6 weeks F/u in 3 months. 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 She is following with at [facility] and also has Dr. Mcallister, a scrap handler at [facility]. He is followed at [facility]. Left hip pain 09/16/2023 Assessment & Plan (09/16/2023 4:23 PM EDT): She got x-rays of the LT hip 09/2020 which showed lucencies which could be erosions or large subchondral cysts, she also had x-ray of lumbar spine with scoliosis and degenerative changes. She had a flare up of her hip pain in 11/2021 and had and MRI of her left hip (12/2021) that showed no mass, no labral tear, no significant joint effusion is seen. There is a small tear of the distal left gluteus minimus tendon. There are moderate partial tears at the origins of the hamstring's tendons bilaterally. Continue to follow up with orthopedics and PT. Pain is likely neuritic. - Continue follow up with CRISTOFER Angulo at [facility] . - Continue 50 mg of Lyrica in the morning and 150 mg of Lyrica at night before bed. - She is unable to take NSAIDs related to history of heart disease and chronic kidney disease. High risk medication use 09/16/2023 Assessment & Plan (09/16/2023 10:14 AM EDT): Methotrexate. She will need every 6 to 8-week labs. Pain management 09/16/2023 Assessment & Plan (09/16/2023 10:14 AM EDT): Lyrica. pain contract signed - CHERYL reviewed - No signs of misuse or diversion - UDS ordered 03/13 Raynaud's phenomenon without gangrene 09/16/2023 Assessment & Plan (09/16/2023 4:23 PM EDT): Diltiazem per cardiology no current issues. - To help prevent the occurrence of Raynaud's phenomenon, preventative measures involve avoiding caffeine, not smoking, keeping the entire body warm, avoiding cold when possible and wearing gloves or mittens when exposed to colder temperatures. Osteopenia 09/15/2023 Overview (09/15/2023): 10/23/2017 Assessment & Plan (09/16/2023 4:23 PM EDT): DEXA (03/01/2022) showed osteopenia in the left femoral neck with T score -1.1, which showed improvement in bone density since her last DEXA in 10/2021. She has osteopenia in her right forearm with T score -2.0 Current Rx: Prolia (started 2019). Continue Prolia every 6 months. Last injection 09/16/2023. - DEXA every 2 years; 02/2024 We discussed the risks and benefits of starting prolia including but not limited to injection reaction, increase risk of infection, hypocalcemia, osteonecrosis of the jaw, atypical fractures,.etc. Vitamin D was elevated at 120. Stop supplements. Recheck with next labs. Degenerative arthritis of lumbar spine Overview (09/15/2023): 10/23/2017 Assessment & Plan (09/16/2023 10:14 AM EDT): She had a fusion with Dr. Lito CLEVELAND at (11/2021) and had another surgery in 05/2022. She has been released from .. - Continue Lyrica - She can follow up with as needed. - Continue physical therapy exercises. I urged her to see her neurosurgeon. 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 Overview (09/15/2023): 10/23/2017 Osteoporosis 09/03/2022 Immunizations Name Administration Dates Next Due COVID-19 (UNSPECIFIED) 11/30/2020 Influenza, Unspecified 10/26/2020,11/28/2016 Social History Tobacco Use Types Packs/Day Years [...] ??F) 09/16/2023 3:49 PM EDT Respiratory Rate 16 09/16/2023 2:35 PM EDT Oxygen Saturation - - Inhaled Oxygen Concentration - - Weight 68.4 kg (150 lb 12.8 oz) 09/16/2023 3:49 PM EDT Height 160 cm (5' 2.99 ) 09/16/2023 3:49 PM EDT Body Mass Index 26.72 09/16/2023 3:49 PM EDT Plan of Treatment Upcoming Encounters Date Type Department Care Team (Late st Contact Info) Description 03/02/2024 1:30 PM EST Appointment [facility] [address] [place] [address] [address] [place] [address] Health Maintenance Due Date Last Done Comments BMI FOLLOWUP 1939 TDAP/TD VACCINES (1 - Tdap) 07/18/1958 ZOSTER VACCINE (1 of 2) 07/18/1989 Pneumococcal Vaccine 65+ (1 of 1 - PCV) 07/18/2004 RSV Vaccine - Adults (1 - 1- dose 75+ series) 07/18/2014 ANNUAL WELLNESS VISIT 09/10/2022 INFLUENZA VACCINE 08/19/2023 11/20/2022, , 11/24/2020, Additional history exists COVID-19 Vaccine (2023-2 5 season) 2023 12/03/2022, 11/20/2021, 11/30/2020, Additional history exists DXA SCAN 09/14/2025 09/15/2023 Procedures Procedure Name Priority Date/Time Associated Diagnosis Comments SCANNED - DEXA Routine 09/15/2023 9:51 PM EDT from Last 3 Months or Most Recently Relevant to Health Maintenance Results * DEXA Scan (09/15/2023 9:51 PM EDT) Anatomical Region Laterality Modality Other Historical Provider CHART REVIEW TABS Carolina l Result from Last 3 Months or Most Recently Relevant to Health Maintenance Insurance MEDICARE A & B Member Subscriber Plan / Payer (Ef fective 2004-Present) Name:Chen Merritt Member ID:[id number] Relation to Subscriber:Self Name:Chen Merritt Subscriber ID:[id number] Payer ID:[id number] Group ID:Not on file Type:Not on file Address: [facility] [id number] [employer] Care Teams Helicopter Pilot Relationship Specialty Start Date End Date Geeta Esteban APRN [address] [place] [address] [place] [address] PCP - General Internal Medicine 09/16/23
--- OUTSIDE RECORDS SUMMARY | 2024-01-26 15:07 | XMS_ITS | Encounter Summary ---
Author Organization [facility] Address [address] [place] [address] Care Team Providers Care Media Relations Manager Name Role Phone Renetta Lopez APRN Primary Care Provider [phone] Encounter Details Date Type Department Care Team (Late st Contact Info) Description 08/19/2023 Telephone [facility] R[facility]Y [address] [facility] [address] [place] [address] Carlton Sims MD [address] [facility] [address] [place], [place] [id number] Social History Tobacco Use Types Packs/Day Years [...] encounter Miscellaneous Notes * Telephone Encounter - Carlton Sims MD - 08/19/2023 1:02 PM EDT Please have her increase the folic acid to 2 mg daily. documented in this encounter Plan of Treatment Upcoming Encounters Date Type Department Care Team (Late st Contact Info) Description 03/02/2024 1:30 PM EST Appointment [facility] [address] [place] [address] [address] [place] [address] documented as of this encounter Visit Diagnoses Not on filedocumented in this encounter Care Teams Media Relations Manager Relationship Specialty Start Date End Date Renetta Lopez APRN [address] [place] [address] [place] [address] PCP - General Nurse Practitioner 09/13/22 09/15/23 documented as of this encounter
--- OUTSIDE RECORDS SUMMARY | 2024-01-26 15:07 | XMS_ITS | Encounter Summary ---
Author Organization [facility] Address [address] [place] [address] Care Team Providers Care Block Hacker Name Role Phone Renetta Lopez LEGAL SUPPORT SPECIALIST Primary Care Provider [phone] Reason for Visit * Reason Comments Med Refill Encounter Details Date Type Department Care Team (Late st Contact Info) Description 08/31/2023 Refill [facility] [place], [address] [place] [address] Kacy Delaney, LEGAL SUPPORT SPECIALIST [address] [place] [address] Social History Tobacco Use Types [...] Description 01/30/2024 4:00 PM EST Office Visit [facility] [place], [address] [place] [address] Kacy Delaney, LEGAL SUPPORT SPECIALIST [address] [place] [address] 02/21/2024 3:15 PM EST Appointment [facility] [address] [place] [address] 02/27/2024 11:00 AM EST Ancillary Procedure [facility] Medicine Specialties [address] [place] [address] 02/27/2024 11:40 AM EST Office Visit [facility] Medicine Specialties [address] [place] [address] Rebecca Zhou, LEGAL SUPPORT SPECIALIST, DNP [address] [place] [address] documented as of this encounter Visit Diagnoses Not on filedocumented in this encounter Additional Health Concerns Assessment Noted Time A fall risk assessment has been complete d for the patient 07/04/2023 2:09 PM EDT A Body Mass Index follow-up plan has been documented for the patient 07/04/2023 2:46 PM EDT documented as of this encounter Care Teams Block Hacker Relationship Specialty Start Date End Date Renetta Lopez, LEGAL SUPPORT SPECIALIST [address] [place] [address] PCP - General 09/13/22 documented as of this encounter
--- OUTSIDE RECORDS SUMMARY | 2024-01-26 15:07 | XMS_ITS | Encounter Summary ---
Author Organization [facility] Address [address] [place] [address] Care Team Providers Care Rn Surgery Name Role Phone Renetta Lopez WEATHERIZATION DIRECTOR Primary Care Provider [phone] Encounter Details Date Type Department Care Team (Late st Contact Info) Description 10/09/2023 Orders Only [facility] Specialties [address] [place] [address] Rebecca Zhou, WEATHERIZATION DIRECTOR, DNP [address] [place] [address] Social History Tobacco Use Types Packs/Day Years [...] Description 01/30/2024 4:00 PM EST Office Visit [facility] [place] [address] [facility], [address] [place] [address] Kacy Delaney, WEATHERIZATION DIRECTOR [address] [place] [address] 02/21/2024 3:15 PM EST Appointment [facility] [address] [place] [address] 02/27/2024 11:00 AM EST Ancillary Procedure [facility] Medicine Specialties [address], [address] [place] [address] 02/27/2024 11:40 AM EST Office Visit [facility] Medicine Specialties [address], [address] [place] [address] Rebecca Zhou, EARNESTINE, DNP [address] [place] [address] documented as of this encounter Visit Diagnoses Not on filedocumented in this encounter Additional Health Concerns Assessment Noted Time A fall risk assessment has been complete d for the patient 10/03/2023 2:05 PM EDT A Body Mass Index follow-up plan has been documented for the patient 10/03/2023 2:48 PM EDT documented as of this encounter Care Teams Rn Surgery Relationship Specialty Start Date End Date Renetta Lopez APRN [address] [place] [address] PCP - General 09/13/22 documented as of this encounter
--- OUTSIDE RECORDS SUMMARY | 2024-01-26 15:07 | XMS_ITS | Encounter Summary ---
Author Organization [facility] Address [address] [place] [address] Care Team Providers Care Comic Artist Name Role Phone Renetta Lopez ELECTRIC LIFT TRUCK DRIVER Primary Care Provider [phone] Encounter Details Date Type Department Care Team (Late st Contact Info) Description 10/02/2023 Telephone [facility] [place] [address] [facility] [place] [address] Kacy Delaney, ELECTRIC LIFT TRUCK DRIVER [address] [place] [address] Social History Tobacco Use Types Packs/Day Years [...] encounter Miscellaneous Notes * Telephone Encounter - Lashell Victoria - 10/02/2023 1:58 PM EDT Called to confirm appointment for 10/02. No answer, left message on voice mail. documented in this encounter Plan of Treatment Upcoming Encounters Date Type Department Care Team (Late st Contact Info) Description 01/30/2024 4:00 PM EST Office Visit [facility] [place] [address] [facility], [address] [place] [address] Kacy Delaney, ELECTRIC LIFT TRUCK DRIVER [address] [place] [address] 02/21/2024 3:15 PM EST Appointment [facility] [address] [place] [address] 02/27/2024 11:00 AM EST Ancillary Procedure [facility] Medicine Specialties [address] [place] [address] 02/27/2024 11:40 AM EST Office Visit [facility] Medicine Specialties [address], [address] [place] [address] Rebecca Zhou, EARNESTINE, DNP [address] [place] [address] documented as of this encounter Visit Diagnoses Not on filedocumented in this encounter Additional Health Concerns Assessment Noted Time A fall risk assessment has been complete d for the patient 07/04/2023 2:09 PM EDT A Body Mass Index follow-up plan has been documented for the patient 07/04/2023 2:46 PM EDT documented as of this encounter Care Teams Comic Artist Relationship Specialty Start Date End Date Renetta Lopez, EARNESTINE [address] [place] [address] PCP - General 09/13/22 documented as of this encounter
--- OUTSIDE RECORDS SUMMARY | 2024-01-26 15:07 | XMS_ITS | Encounter Summary ---
Author Organization [facility] Address [address] [place] [address] Care Team Providers Care Chemical Production Engineer Name Role Phone Renetta Lopez APRN Primary Care Provider [phone] Reason for Visit * Reason Comments Med Refill Encounter Details Date Type Department Care Team (Late st Contact Info) Description 01/17/2024 Refill [facility] [place] [address], [address] [place] [address] Kacy Delaney, DATA ENTRY PROCESSOR [address] [place] [address] Social History Tobacco Use Types [...] Description 01/30/2024 4:00 PM EST Office Visit [facility] [place] [address], [address] [place] [address] Kacy Delaney, DATA ENTRY PROCESSOR [address] [place] [address] 02/21/2024 3:15 PM EST Appointment [facility] [address] [place] [address] 02/27/2024 11:00 AM EST Ancillary Procedure [facility] Medicine Specialties [address], [address] [place] [address] 02/27/2024 11:40 AM EST Office Visit [facility] Medicine Specialties [address], [address] [place] [address] Rebecca Zhou, DATA ENTRY PROCESSOR, DNP [address] [place] [address] documented as of this encounter Visit Diagnoses Not on filedocumented in this encounter Additional Health Concerns Assessment Noted Time A fall risk assessment has been complete d for the patient 10/03/2023 2:05 PM EDT A Body Mass Index follow-up plan has been documented for the patient 10/03/2023 2:48 PM EDT documented as of this encounter Care Teams Chemical Production Engineer Relationship Specialty Start Date End Date Renetta Lopez, DATA ENTRY PROCESSOR [address] [place] [address] PCP - General 09/13/22 documented as of this encounter
--- OUTSIDE RECORDS SUMMARY | 2024-01-26 15:07 | XMS_ITS | Encounter Summary ---
Author Organization [facility] Address [address] [place] [address] Care Team Providers Care Mail Messenger Name Role Phone Renetta Lopez APRN Primary Care Provider [phone] Reason for Visit * Episode Based Medications (Routine) - Closed Specialty Diagnoses / Procedures Referred By Contac t Referred To Contact Diagnoses Osteoporosis, unspecified osteoporosis type, unspecified pathological fracture presence Procedures OR DENOSUMAB INJECTION Hermes Damon, [facility] [address] [place] [address] Phone: tel: fax: Referral ID Status Reason Start Date Expiration Date Visits Re quested Visits Authorized [id number] Closed 09/03/2022 09/02/2024 1 1 Encounter Details Date Type Department Care Team (Latest Contact Info) Description 09/13/2022 12:12 PM EDT - 09/13/2022 11:59 PM EDT Hospital Encounter [facility] [address] [facility] [address] [place] [address] Jazmine Ospina MD [address] [place] [address] Osteoporosis, unspecified osteoporosis type, unspecified [...] Sign Reading Time Taken Comments Blood Pressure 143/70 09/13/2022 12:21 PM EDT Pulse 61 09/13/2022 12:21 PM EDT Temperature 36.4 ??C (97.6 ??F) 09/13/2022 12:21 PM E DT Respiratory Rate 16 09/13/2022 12:21 PM EDT Oxygen Saturation - - Inhaled Oxygen Concentration - - Weight 68.5 kg (151 lb) 09/13/2022 12:21 PM EDT Height 160 cm (5' 3 ) 09/13/2022 12:21 PM EDT Body Mass Index 26.75 09/13/2022 12:21 PM EDT documented in this encounter Medications at Time of Discharge HYDROcodone-aceta minophen (NORCO) 5-325 MG per tablet Take 1 tablet by mouth every 4-6 hours as needed for pain 41 tablet 06/30/2018 1:53 PM EDT 06/30/2018 09/16/2023 documented as of this encounter Plan of Treatment Upcoming Encounters Date Type Department Care Team (Late st Contact Info) Description 03/02/2024 1:30 PM EST Appointment [facility] [address] [place] [address] [address] [place] [address] documented as of this encounter Visit Diagnoses Diagnosis Osteoporosis, unspecified osteoporosis type, unspecified pathological fracture presence- Primary documented in this encounter Administered Medications Inactive Administered Medications - up to 3 most recent administrations Medication Order MAR Action Action Date Dose Rate Site denosumab (PROLIA) syringe 60 mg 60 mg, Subcutaneous, Once, On Mary 09/13/22 at 1223, For 1 dose, In the upper arm, upper thigh or abdomenIndications:Osteoporosi s, unspecified osteoporosis type, unspecified pathological fracture presence Given 09/13/2022 12:27 PM EDT 60 mg Left Arm documented in this encounter Care Teams Mail Messenger Relationship Specialty Start Date End Date Renetta Lopez APRN [address] [place] [address] PCP - General Nurse Practitioner 09/13/22 09/15/23 documented as of this encounter
--- OUTSIDE RECORDS SUMMARY | 2024-01-26 15:07 | XMS_ITS | Encounter Summary ---
Author Organization Healthcare Address [address] [place] [address] Care Team Providers Care Manager Epic Name Role Phone Renetta Lopez PAD EXTRACTOR TENDER Primary Care Provider [phone] Encounter Details Date Type Department Care Team ([facility] st Contact Info) Description 10/03/2023 2:00 PM EDT Office Visit [facility] [place] [address], [address] [place] [address] Kacy Delaney, PAD EXTRACTOR TENDER [address] [place] [address] Cardiac amyloidosis (CMS/HCC) (Primary Dx); ASHD (arteriosclerotic heart disease) Social History Tobacco Use Types Packs/Day Years [...] Sign Reading Time Taken Comments Blood Pressure 119/64 10/03/2023 2:02 PM EDT Pulse 67 10/03/2023 2:02 PM EDT Temperature - - Respiratory Rate - - Oxygen Saturation 96% 10/03/2023 2:02 PM EDT Inhaled Oxygen Concentration - - Weight 69.4 kg (153 lb) 10/03/2023 2:02 PM EDT Height 160 cm (5' 3 ) 10/03/2023 2:02 PM EDT Body Mass Index 27.1 10/03/2023 2:02 PM EDT documented in this encounter Miscellaneous Notes * Progress Notes - Kacy Delaney APRN - 10/03/2023 2:00 PM EDT Images from the original note were not included. Advanced Heart Failure Follow Up Chen Merritt is a 83 y.o. female who presents for routine follow up. She has a PMHx significant for ASHD s/p CABG 2008 and subsequent ANGELICA to proximal circ 05/2022, paroxysmal Afib, HTN, HLD, spinal stenosis, arthritis, and carpal tunnel surgery. She also had a low voltage EKG. Her finish mixer was suspicious for cardiac amyloidosis so lab work and PYP scan was ordered. This was completed 08/13/2022 and was consistent with a Intermediate risk of significant cardiac amyloidosis. H:L ratio at 3 hours was 1.31. FLC ratio 1.44. Echo 05/2022 showed moderate LVH, EF ~55%, grade 2 diastolic dysfunction, abnormal strain pattern. AL amyloidosis was ruled out with blood work. Genetic testing was completed and is negative. An echo was completed locally 05/2023 which showed an EF of 55% +/- 5%, grade 2 diastolic dysfunction, mod MR, mod TR. She felt worse while taking Vyndamax, so this has been discontinued with improvement in symptoms. Today patient reports feeling well since stopping Vyndamax. Energy levels have improved and she feels like doing more. She is participating in physical therapy exercises and trying to walk more in the house. Notes occasional, mild dyspnea with exertion. Bps are running 120s/70s. Readings are not fluctuating as much anymore which they think may have to do with better pain control in her back. She recently had injections which has helped. Denies chest pain, palpitations, lightheadedness, dizziness, syncope, LE edema, and orthopnea. Review of symptoms 14 Point ROS reviewed and is otherwise negative except as per HPI. Past Medical History Past Medical History: Diagnosis Date Anemia Arthritis ASHD (arteriosclerotic heart disease) Carpal tunnel syndrome Cataract CHF (congestive heart failure) (CMS/HCC) Eczema GERD (gastroesophageal reflux disease) HL (hearing loss) HLD (hyperlipidemia) HTN (hypertension) LVH (left ventricular hypertrophy) Myocardial infarction (CMS/HCC) Spinal stenosis Surgical History Past Surgical History: Procedure Laterality Date BACK SURGERY 05/2022 CATARACT EXTRACTION CHOLECYSTECTOMY CORONARY ARTERY BYPASS GRAFT 2009 HYSTERECTOMY SPINE SURGERY Family History family history includes Coronary artery disease in her brother. Social History reports that she has never smoked. She has never used smokeless tobacco. She reports that she does not drink alcohol and does not use drugs. Medications Current Outpatient Medications Medication Sig Dispense Refill aspirin 81 MG EC tablet Take 1 tablet (81 mg) by mouth 1 (one) time each day. atorvastatin (Lipitor) 40 MG tablet Take 1 tablet (40 mg) by mouth 1 (one) time each day. calcium carbonate (Os-Abdiel) 1250 (500 Ca) MG tablet Take 500 mg by mouth twice a day. denosumab (Prolia) 60 MG/ML injection Inject 1 mL (60 mg) under the skin every 6 (six) months. diclofenac (Voltaren) 1 % topical gel APPLY 2 GRAMS TO AFFECTED AREA 3-4 TIMES DAILY dilTIAZem CD (Cardizem CD) 180 MG 24 hr capsule Take 1 capsule (180 mg) by mouth. docusate sodium (Colace) 100 MG capsule Take 1 capsule (100 mg) by mouth every 12 (twelve) hours. folic acid (Folvite) 1 MG tablet Take by mouth 1 (one) time each day. methotrexate 2.5 MG tablet Take by mouth 1 (one) time per week. Follow directions carefully, and ask to explain any part you do not understand. Take exactly as directed. metoprolol tartrate (Lopressor) 25 MG tablet Take 1 tablet by mouth twice daily 60 tablet 3 pantoprazole (Protonix) 40 MG EC tablet Take 1 tablet (40 mg) by mouth 1 (one) time each day beforebreakfast. Do not crush, chew, or split. pregabalin (Lyrica) 150 MG capsule Take 1 capsule (150 mg) by mouth 2 (two) times a day. Pt states she takes 50mg in the AM 150mg in the PM ProFe 391.3 (180 Fe) MG capsule Take by mouth 1 (one) time each day. cholecalciferol (Vitamin D-3) 50 MCG (2000 UT) capsule Take 1 capsule (2,000 Units) by mouth. dilTIAZem ER (Tiazac) 180 MG 24 hr capsule Take 1 capsule (180 mg) by mouth 1 (one) time each day. Green Tea 250 MG capsule Take 500 mg by mouth 2 (two) times a day. (Patient not taking: Reported on07/04/2023) 120 capsule 11 metroNIDAZOLE (Metrocream) 0.75 % cream APPLY CREAM TOPICALLY TO AFFECTED AREA ONCE DAILY Tafamidis (Vyndamax) 61 MG capsule Take 1 capsule (61 mg) by mouth every 30 (thirty) days. 30 capsule 11 No current facility-administered medications for this visit. Physical Exam Constitutional: Appearance: Normal appearance. Cardiovascular: Rate and Rhythm: Normal rate and regular rhythm. Heart sounds: Normal heart sounds. Neck: No JVD Pulmonary: Effort: Pulmonary effort is normal. Breath sounds: Normal breath sounds. Abdominal: Palpations: Abdomen is soft. Skin: General: Skin is warm and dry. Neurological: General: No focal deficit present. Mental Status: Alert and oriented to person, place, and time. Psychiatric: Mood and Affect: Mood normal. Behavior: Behavior normal. Extremities: No edema Visit Vitals BP 119/64 (BP Location: Right arm, Patient Position: Sitting, BP Cuff Size: Adult) Pulse 67 Ht 1.6 m (5' 3 ) Wt 69.4 kg (153 lb) SpO2 96% BMI 27.10 kg/m?? 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 H:L ratioat 3 hours was 1.31. personally reviewed by Dr. Jessie, presumed positive for cardiac amyloidosis. -AL amyloidosis was ruled out -Ziopatch 08/2022: no arrhythmias noted, although blunted heart rate response. Discussed with EP andno intervention required at this time. -Genetic testing negative -Did not tolerate vyndamax d/t side effects, doxycycline d/t diarrhea, ursodiol d/t elevated LFTs -Discussed discontinuation of diltiazem as it is contraindicated in amyloidosis (has been shown to bind to amyloid fibrils thus increasing the risk of worsening heart failure, profound hypotension, and syncope). Patient has tried stopping diltiazem in the past and has not tolerated. Discussed risksvs benefits and she prefers to stay on it at this time. -Okay to discontinue green tea ASHD -s/p CABG 2008 -[facility] 05/2022: Occlusion of all 3 vein grafts, patent RIVERA to LAD, ANGELICA to proximal circ -following with local cardiology -continue ASA, statin -plavix discontinued d/t bruising Hypertension -stable -continue to monitor Elevated LFTs/Liver cysts -following with GI Iron deficiency anemia -iron supplements per PCP A total time of 40 minutes was spent addressing the current illness, reviewing records (prior imaging, lab work, etc), and formulating a plan. The patient is agreeable to the plan and all pertinent questions were answered. Follow up in 4 months or sooner as needed. Kacy Delaney APRN 10/03/23 documented in this encounter Plan of Treatment Upcoming Encounters Date Type Department Care Team (Late st Contact Info) Description 01/30/2024 4:00 PM EST Office Visit [facility] [address], [address] [place] [address] Kacy Delaney APRN [address] [place] [phone] 02/21/2024 3:15 PM EST Appointment [facility] [address] [place] [address] 02/27/2024 11:00 AM EST Ancillary Procedure [facility] [address] [place] [address] 02/27/2024 11:40 AM EST Office Visit [facility] [address] [place] [address] Rebecca Zhou APRN, DNP [address] [place] [address] documented as of this encounter Visit Diagnoses Diagnosis Cardiac amyloidosis (CMS/HCC)- Primary Other amyloidosis ASHD (arteriosclerotic heart disease) Coronary atherosclerosis of unspecified type of vessel, [place] or graft documented in this encounter Additional Health Concerns Assessment Noted Time A fall risk assessment has been complete d for the patient 10/03/2023 2:05 PM EDT A Body Mass Index follow-up plan has been documented for the patient 10/03/2023 2:48 PM EDT documented as of this encounter Care Teams Manager Epic Relationship Specialty Start Date End Date Renetta Lopez APRN [address] [place] [address] PCP - General 09/13/22 documented as of this encounter
--- OUTSIDE RECORDS SUMMARY | 2024-01-26 15:07 | XMS_ITS | Clinical Summary ---
Author Organization [facility] Address [address] [place] [address] Care Team Providers Care Intelligence Senior Sergeant Name Role Phone JohnRenetta Mohamud COLBY Primary Care Provider [phone] Allergies Active Allergy Reactions Criticality Noted Date Comments Amoxicillin Itching,Rash Medium 11/15/2022 Codeine Unknown - Patient states they do not know rxn details Low 09/13/2022 Loratadine Rash Medium 06/11/2022 Morphine Other - please document in the comment field Low 12/14/2021 Nitrofurantoin Rash Low 12/03/2012 Sulfa Drugs Other - please document in the comment field Low 12/14/2021 Sulfamethoxazole-Trimetho prim Diarrhea Low 12/14/2021 Ticagrelor Other - please document in the comment field,Shortness of breath High 06/14/2022 Generalized edema Trimethoprim Swelling High 06/27/2023 Medications atorvastatin (Lipitor) 40 MG tablet Take 1 tablet (40 mg) by mouth 1 (one) time each day. Active methotrexate 2.5 MG tablet Take by mouth 1 (one) time per week. Follow directions carefully, and ask to explain any part you do not understand. Take exactly as directed. Active pantoprazole (Protonix) 40 MG EC tablet Take 1 tablet (40 mg) by mouth 1 (one) time each day before breakfast. Do not crush, chew, or split. Active pregabalin (Lyrica) 150 MG capsule Take 1 capsule (150 mg) by mouth 2 (two) times a day. Pt states she takes 50mg in the AM 150mg in the PM Active aspirin 81 MG EC tablet Take 1 tablet (81 mg) by mouth 1 (one) time each day. Active folic acid (Folvite) 1 MG tablet Take by mouth 1 (one) time each day. Active dilTIAZem CD (Cardizem CD) 180 MG 24 hr capsule Take 1 capsule (180 mg) by mouth. 07/25/19 23 Active diclofenac (Voltaren) 1 % topical gel APPLY 2 GRAMS TO AFFECTED AREA 3-4 TIMES DAILY 07/25/19 23 Active denosumab (Prolia) 60 MG/ML injection Inject 1 mL (60 mg) under the skin every 6 (six) months. 08/25/19 23 Active docusate sodium (Colace) 100 MG capsule Take 1 capsule (100 mg) by mouth every 12 (twelve) hours. Active ProFe 391.3 (180 Fe) MG capsule Take by mouth 1 (one) time each day. 04/23/19 24 Active calcium carbonate (Os-Abdiel) 1250 (500 Ca) MG tablet Take 500 mg by mouth twice a day. Active dilTIAZem ER (Tiazac) 180 MG 24 hr capsule Take 1 capsule (180 mg) by mouth 1 (one) time each day. 09/20/19 24 Active diphenhydrAMIN E (Benadryl) 50 MG tablet Take 1 tablet (50 mg) by mouth 1 (one) time each day for 1 day. Take 1 tablet prior 1 hour prior to MRI 1 tablet 10/09/19 24 Active albuterol 108 (90 Base) MCG/ACT inhaler Inhale 2 puffs. 10/16/19 24 Active amoxicillin (Amoxil) 500 MG capsule Take 1 capsule (500 mg) by mouth 1 (one) time each day. 10/07/19 24 Active azithromycin (Zithromax) 250 MG tablet Take 1 tablet (250 mg) by mouth. 10/07/19 24 Active ciprofloxacin- dexamethasone (CiproDEX) otic suspension Administer 4 drops into each ear. 10/07/19 24 Active nortriptyline (Pamelor) 10 MG capsule Take 1 capsule (10 mg) by mouth. 10/11/19 24 Active predniSONE (Deltasone) 20 MG tablet Take 1 tablet (20 mg) by mouth. 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 Encounters Date Type Department Care Team Description 01/24/2024 Travel 01/17/2024 Refill [facility] [place] [facility] [address], [address] [place] [address] Kacy Delaney, UMBRELLA SUPERVISOR 10/28/2023 Telephone [facility] [address], [address] [place] [address] Rebecca Zhou, UMBRELLA SUPERVISOR, DNP from Last 3 Months Immunizations Name Administration Dates Next Due Influenza, Unspecified 10/26/2020,11/28/2016 Influenza, high-dose, quadrivalent 11/20,11/17/2021,11/24/2020,11/11,12/09/2018 Pneumococcal Conjugate PCV 13 12/09/2018 Pneumococcal Polysaccharide PPV23 01/06/2020 Rsvpref, Recombinant, Protei n Subunit, Adjuvent 11/20/2022 Family History Medical History Relation Name Comments Coronary artery disease Brother Relation Name Status Comments Brother Social History Tobacco Use Types Packs/Day Years [...] Pulse 67 10/03/2023 2:02 PM EDT Temperature 36.5 ??C (97.7 ??F) 10/03/2023 10:35 AM E DT Respiratory Rate 18 11/15/2022 2:30 PM EDT Oxygen Saturation 96% 10/03/2023 2:02 PM EDT Inhaled Oxygen Concentration - - Weight 69.4 kg (153 lb) 10/03/2023 2:02 PM EDT Height 160 cm (5' 3 ) 10/03/2023 2:02 PM EDT Body Mass Index 27.1 10/03/2023 2:02 PM EDT Plan of Treatment Upcoming Encounters Date Type Department Care Team (Late st Contact Info) Description 01/30/2024 4:00 PM EST Office Visit [facility] [place] [facility] [address], [address] [place] [phone] Kacy Delaney, UMBRELLA SUPERVISOR [address] [place] [address] 02/21/2024 3:15 PM EST Appointment [facility] [address] [place] [address] 02/27/2024 11:00 AM EST Ancillary Procedure [facility] [address] [place] [address] 02/27/2024 11:40 AM EST Office Visit [facility] [address] [place] [phone] Rebecca Zhou, UMBRELLA SUPERVISOR, DNP [address] [place] [address] Health Maintenance Due Date Last Done Comments [facility]-Bone Density Scan 1940 [facility]-Medicare Annual Wellness (AWV) 1940 [facility]-Infant/Child/Adol SDOH Screenings 1940 [facility]- SDOH Screenings 07/18/1957 [facility]-Adult SDOH Screenings 07/18/1957 [facility]-DTaP,Tdap,and Td Vaccines (1 - Tdap) 07/18/1958 [facility]-Hepatitis A Vaccines (1 of 2 - Risk 2-dose series) 07/18/1958 [facility]-Zoster Vaccines (1 of 2) 07/18/1959 [id number] Vaccine (6 - 2024-25 season) 2023 12/03/2022, 11/20/2021, 11/30/2020, Additional history exists [facility]-Influenza Vaccine (#1) 10/20/202311/20, 11/17/2021, 11/24/2020, Additional history exists [facility]-Depression Screening 10/02/2024 10/03/2023 [facility]-Pneumococcal Vaccine: 65+ Years Completed 01/06/2020, 12/09/2018 [facility]-RSV Vaccine: 60+ Years or Completed 11/20/2022 [facility]-Obesity Intervention Completed 024, 10/03/2023, 07/04/2023, Additional history exists [facility]-HIB Vaccines Aged Out No longer e ligible based on patient's age to complete this topic [facility]-HPV Vaccines Aged Out No longer e ligible based on patient's age to complete this topic [facility]-IPV Vaccines Aged Out No longer e ligible based on patient's age to complete this topic [facility]-Rotavirus Vaccines Aged Out No lo nger eligible based on patient's age to complete this topic Insurance MEDICARE [facility] Care Teams Intelligence Senior Sergeant Relationship Specialty Start Date End Date Renetta Lopez APRN [address] [id number] PCP - General 09/13/22
--- OUTSIDE RECORDS SUMMARY | 2024-01-26 15:07 | XMS_ITS | Encounter Summary ---
Author Organization [facility] Address [address] [id number] Care Team Providers Care Adjunct Instructor Name Role Phone Renetta Lopez APRN Primary Care Provider [phone] Reason for Referral * Imaging (Routine) - Authorized Specialty Diagnoses / Procedures Referred By Dalton haynes Referred To Contact Diagnoses Elevated liver enzymes Liver cyst Procedures MR Abdomen w and wo IV Contrast Rebecca Zhou APRN, DNP [address] [facility] [address] [place] [address] Phone: tel: fax: Referral ID Status Reason Start Date Expiration Date V isits Requested Visits Authorized [id number] Authorized 10/03/2023 04/03/2025 1 1 Reason for Visit * Reason Comments Other specified diseases of liver * Consultation (Routine) - Closed Specialty Diagnoses / Procedures Referred By Dalton haynes Referred To Contact Gastroenterology Diagnoses Other specified diseases of liver Violet Javier APRN [address] [place] [address] Phone: tel: fax: Referral ID Status Reason Start Date Expiration Date V isits Requested Visits Authorized [id number] Closed Specialty Services Required 06/28/2023 12/27/2024 1 1 Encounter Details Date Type Department Care Team (Late st Contact Info) Description 10/03/2023 10:20 AM EDT Consult [facility] Specialties [address] [place] [address] Rebecca Zhou APRN, DNP [address] [place] [address] Elevated liver enzymes (Primary Dx); Other specified diseases of liver; Hepatic fibrosis, unspecified; Atrial fibrillation, unspecified type (CMS/HCC); Liver cyst; Healthcare maintenance Social History Tobacco Use Types Packs/Day Years [...] Sign Reading Time Taken Comments Blood Pressure 130/75 10/03/2023 10:35 AM EDT Pulse 62 10/03/2023 10:35 AM EDT Temperature 36.5 ??C (97.7 ??F) 10/03/2023 10:35 AM E DT Respiratory Rate - - Oxygen Saturation 95% 10/03/2023 10:35 AM EDT Inhaled Oxygen Concentration - - Weight 69.1 kg (152 lb 5.4 oz) 10/03/2023 10:35 AM EDT Height 160 cm (5' 3 ) 10/03/2023 10:35 AM EDT Body Mass Index 26.99 10/03/2023 10:35 AM EDT documented in this encounter Miscellaneous Notes * Progress Notes - Rebecca Zhou APRN, IVELISSE - 10/03/2023 10:20 AM EDT Subjective Patient ID: Chen Merritt is a 83 y.o. female. No chief complaint on file. Abdominal Pain Pertinent negatives include no constipation, diarrhea, nausea or vomiting. Ms. Chen Merritt is a pleasant 83 year old female who presents to the Liver clinic for consultation for elevated liver enzymes and abnormal finding on imaging. She is accompanied by her daughter. PMH significant for psoriatic arthritis (on Methotrexate), osteoporosis, osteoarthritis, spinal stenosis a Fib, HTN, HLD, carpal tunnel surgery, ASHD s/p CABG 2008 and subsequent ANGELICA to proximal circ 05/2022, amyloidosis. Non smoker. No alcohol use. No illicit drug use. No NSAID use. Takes Tylenol as needed. No family hx of underlying liver disease. Pt started Vyndamex in Fall 2022. She was found to have elevated liver enzymes in Mar 2023 and stopped this medication. Liver enzymes decreased significantly after stopping this. She has been on Methotrexate for 4 years for psoriatic arthritis. She is also taking Green Tea Extract. 04/16/23 AST 146, ALT 162 04/2023 AST 41 ALT 39 Pt is doing well today. Denies nausea, vomiting. Eating well without any unintentional weight loss.No abd pain or swelling. Reports normal bowel movements without melena or hematochezia. No fevers or chills. No scleral icterus or juandice noted. 04/2023: PETERS Fibrosis F1-F2, tbili 0.5, AST 41, ALT 40, ALP 69 plt 80 US 05/17/2023: hepatic and right renal cysts, no evidence of chronic liver disease or portal hypertension, liver demonstrates a complex septated cyst in the left lobe measuring 16 mm The following portions of the chart were reviewed this encounter and updated as appropriate: Review of Systems Gastrointestinal: Negative for abdominal distention, abdominal pain, anal bleeding, blood in stool,constipation, diarrhea, nausea, rectal pain and vomiting. All other systems reviewed and are negative. Objective Physical Exam Vitals reviewed. Constitutional: Appearance: Normal appearance. HENT: Head: Normocephalic. Cardiovascular: Rate and Rhythm: Normal rate and regular rhythm. Pulses: Normal pulses. Heart sounds: Normal heart sounds. Pulmonary: Effort: Pulmonary effort is normal. Breath sounds: Normal breath sounds. Abdominal: General: Abdomen is flat. Bowel sounds are normal. Palpations: Abdomen is soft. Musculoskeletal: General: Normal range of motion. Comments: walker Skin: General: Skin is warm and dry. Neurological: General: No focal deficit present. Mental Status: She is alert and oriented to person, place, and time. Psychiatric: Mood and Affect: Mood normal. Behavior: Behavior normal. Thought Content: Thought content normal. Judgment: Judgment normal. Visit Vitals BP 130/75 Pulse 62 Temp 36.5 ??C (97.7 ??F) Ht 1.6 m (5' 3 ) Wt 69.1 kg (152 lb 5.4 oz) SpO2 95% BMI 26.99 kg/m?? OB Status Postmenopausal Smoking Status Never BSA 1.75 m?? Assessment/Plan Elevated liver enzymes - 04/16/23 AST 146, ALT 162 - 04/2023 AST 41 ALT 39 - 04/2023: PETERS Fibrosis F1-F2 - labs showed improved with discontinuation of Vyndamex - pt is also on green tea extract, this can cause liver injury, recommend she stop this - US 05/17/2023: hepatic and right renal cysts, no evidence of chronic liver disease or portal hypertension, l - will check CMP, CBC, INR and serologic work up --> pt will complete this locally Liver cyst - US 05/17/2023: hepatic and right renal cysts, no evidence of chronic liver disease or portal hypertension, liver demonstrates a complex septated cyst in the left lobe measuring 16 mm - MR abd ordered for further eval (pt is claustrophobic, she will complete an open MRI at [facility]) - AFP with labs today HCM - will check for immunity to Hep A/B with labs Follow up in 4 months via . documented in this encounter Plan of Treatment Upcoming Encounters Date Type Department Care Team (Late st Contact Info) Description 01/30/2024 4:00 PM EST Office Visit [facility] [place] [address] [facility], [address] [place] [id number] Kacy Delaney APRN [address] [place] [address] 02/21/2024 3:15 PM EST Appointment [facility] [address] [place] [address] 02/27/2024 11:00 AM EST Ancillary Procedure [facility] Medicine Specialties [address] [place] [address] 02/27/2024 11:40 AM EST Office Visit [facility]ties [address] [place] [address] Rebecca Zhou, EARNESTINE, IVELISSE [address] [place] [address] documented as of this encounter Procedures Procedure Name Priority Date/Time Associated Diagnosis Comments HIV 1/2 ANTIBODY/ANTIGEN SCREEN W/REFLEX TO HIV 1/2 ANTIBODY DIFFERENTIATION Routine 10/03/2023 2:50 PM EDT Other specified diseases of liver Elevated liver enzymes HIV 1/2 ANTIBODY/ANTIGEN SCREEN WITH REFLEX TO HIV I/II DIFFERENTIATION Routine 10/03/2023 2:50 PM EDT Other specified diseases of liver Elevated liver enzymes documented in this encounter Results * MR Abdomen w and wo IV Contrast (10/25/2023 8:28 AM EDT) Anatomical Region Laterality Modality Abdomen Magnetic Resonan ce Rebecca Zhou APRN, IVELISSE IMG MRI PROCEDURES Fi nal Result * HIV 1 & 2 Antibody/Antigen Screen (10/03/2023 2:50 PM EDT) Pathologist [facility] HIV 1 & 2 Antibody/Antigen Screen Non Reactive Non Reactive 10/03/2023 6:00 PM EDT [facility] Comment:Screening for HIV 1 & 2 antibodies, and P24 antigen is NONREACTIVE. No confirmatory testing is required. Blood Venous blood specimen / Unknown Venipuncture / Unknown 10/03/2023 2:50 PM EDT 10/03/2023 2:50 PM EDT Rebecca Zhou APRN, DNP LAB BLOOD ORDERABLES Final Result [facility] [address] [place] [address] * Thyroid Stimulating Hormone, Plasma (10/03/2023 2:50 PM EDT) Thyroid Stimulating Hormone, Plasma 4.13 0.40 - 4.20 uIU/mL 10/03/2023 5:59 PM EDT [facility] Blood Venous blood specimen / Unknown Venipuncture / Unknown 10/03/2023 2:50 PM EDT 10/03/2023 2:50 PM EDT Rebecca Nick Zhou APRN, DNP LAB BLOOD ORDERABLES Final Result [facility] [address] [place], [place] [id number] * Tissue Transglutaminase (tTG) Ab, IgA (SO) (10/03/2023 2:50 PM EDT) Tissue Transglutaminase (tTG) Ab, IgA <1.02 0.00 - 4.99 FLU 10/08/2023 5:09 PM EDT [facility] (TERRI) Blood Venous blood specimen / Unknown Venipuncture / Unknown 10/03/2023 2:50 PM EDT 10/03/2023 2:50 PM EDT Narrative [facility] ([facility]) - 10/08/2023 5:09 PM EDT INTERPRETIVE INFORMATION: Tissue Transglutaminase (tTG) ?Antibody, IgA Presence of the tissue transglutaminase (tTG) IgA antibody is associated with gluten-sensitive enteropathies such as celiac disease and dermatitis herpetiformis. Individuals with positive results should be confirmed with small intestinal biopsy to establish celiac disease diagnosis. tTG IgA antibody concentrations greater than 50 FLU exhibits higher correlation with results of duodenal biopsies consistent with celiac disease. For antibody concentrations greater than or equal to 5 FLU but less than 10 FLU, additional testing for endomysial (DANIKA) IgA concentrations may improve the positive predictive value for disease. A decrease in tTG IgA antibody concentration after initiation of a gluten-free diet may indicate a response to therapy. Performed By: [facility] [address] [place] [address] [employer] Manager: Roger Guerrero MD, PhD CLIA Number: [id number] Rebecca Nick Zhou TELEPHONE COLLECTOR, DNP LAB REF LAB BLOOD AND FLUID ORD Final Result Performing Organization Address [facility] Co de Phone Number [facility] [address] [place] [address] * Soluble Liver Antigen Antibody (10/03/2023 2:50 PM EDT) Soluble Liver Antigen Antibody, IgG 1.0 0.0 - 24.9 U 10/06/2023 10:16 PM EDT [facility] ([facility] Blood Venous blood specimen / Unknown Venipuncture / Unknown 10/03/2023 2:50 PM EDT 10/03/2023 2:50 PM EDT Narrative [facility] - 10/06/2023 10:16 PM EDT REFERENCE INTERVAL: Soluble Liver Antigen Antibody, IgG ?? 0.0 - 20.0 U ........... Negative ??20.1 - 24.9 U ........... Equivocal ??25.0 U or greater ....... Positive The presence of SLA antibodies has almost 100% specificity for autoimmune hepatitis, although only 12-30% have these antibodies. ?? Thus, a negative SLA IgG test does not rule out autoimmune hepatitis. Performed By: [facility] [address] [place] [address] [employer] Manager: Roger Guerrero MD, PhD CLIA Number: [id number] Rebecca Zhou TELEPHONE COLLECTOR, DNP LAB BLOOD ORDERABLES Final Result Performing Organization Address [facility] de Phone Number [facility] [address] [phone] * Mitochondrial M2 Antibody, IgG (CECI) (10/03/2023 2:50 PM EDT) MITOCHONDRIA M2 AB IGG 12.5 0.0 - 24.9 Units 10/06/2023 9:36 AM EDT [facility]) Serum Venous blood specimen / Unknown 10/03/2023 2:50 PM EDT 10/03/2023 2:50 PM EDT Narrative [facility] DifferentialTERRI) - 10/06/2023 9:36 AM EDT REFERENCE INTERVAL: Mitochondrial (M2) Antibody, IgG ?20.0 Units or less ......... Negative ??20.1 - 24.9 Units........... Equivocal ??25.0 Units or greater....... Positive Anti-mitochondrial antibodies (AMA) are thought to be present in 90-95% of patients with primary biliary cholangitis (PBC). However, the frequency of detected antibodies may be cohort or assay dependent, as lower sensitivities have been reported. Not all PBC patients are positive for AMA; some patients may be positive for SP100 and/or GP210 antibodies. A negative result does not rule out PBC. Performed By: [facility] [address] [place] [address] [employer] Manager: Rogre Guerrero MD, PhD CLIA Number: [id number] Rebecca Zhou TELEPHONE COLLECTOR, DNP LAB BLOOD ORDERABLES Final Result [facility] ([facility] [address] [place] [address] * Liver Kidney Microsome Antibodies (10/03/2023 2:50 PM EDT) Jmfpv-Hptulq-A icrosome Abs, IgG by IFA <1:20 <1:20 10/06/2023 11:54 PM EDT [facility] ([facility]) Blood Venous blood specimen / Unknown Venipuncture / Unknown 10/03/2023 2:50 PM EDT 10/03/2023 2:50 PM EDT Narrative [facility] ([facility]) - 10/06/2023 11:54 PM EDT INTERPRETIVE INFORMATION: ??Bylqf-Snhdct-Ibhledwpg Abs, IgG Liver-Kidney Microsome IgG antibody (anti-LKM), as detected by indirect immunofluorescent antibody (IFA) techniques, may be observed in patients with autoimmune hepatitis type 2 (AIH-2), AIH-2 associated with autoimmune keubnxymgmtlkaotgy-vriqvpmvpuq-igyzqtxkid dystrophy (APECED), viral hepatitis C or D, and some forms of drug-induced hepatitis. This IFA does not differentiate among the four types of LKM antibodies (LKM-1, LKM-2, LKM-3, and a fourth type that recognizes CY and CY antigens). Of these, anti-LKM-1 (cytochrome [id number]) IgG antibodies are considered specific for AIH-2. This test was developed and its performance characteristics determined by [facility]. It has not been cleared or approved by the [place] Food and Drug Administration. This test was performed in a CLIA certified laboratory and is intended for clinical purposes. Performed By: [facility] [address] [place] [address] [employer] Manager: Roger Guerrero MD, PhD CLIA Number: [id number] Rebecca Zhou APRN, DNP LAB BLOOD ORDERABLES Final Result Performing Organization Address City/[facility] Co de Phone Number [facility] ([facility]) [address] [place] [address] * (ABNORMAL) Iron & Total Iron Binding Capacity, Plasma (Includes Transferrin) (10/03/2023 2:50 PM EDT) Iron, Plasma 37 30 - 160 ug/dL 10/03/2023 6:21 PM EDT [facility] Transferrin, Plasma 191(L) 200 - 360 mg/dL 10/03/2023 6:21 PM EDT [facility] Total Iron Binding Capacity, Plasma 239(L) 240 - 450 ug/mL 10/03/2023 6:21 PM EDT [facility] Transferrin Saturation 15 14 - 50 % 10/03/2023 6:21 PM EDT [facility] Blood Venous blood specimen / Unknown Venipuncture / Unknown 10/03/2023 2:50 PM EDT 10/03/2023 2:50 PM EDT Rebecca Zhou APRN, DNP LAB BLOOD ORDERABLES Final Result Performing Organization Address City/[facility]/ZIP Co de Phone Number [facility] [address] [place] [address] * (ABNORMAL) IG Profile (10/03/2023 2:50 PM EDT) IGA 147 75 - 400 mg/dL 10/03/2023 6:21 PM EDT [facility] IGG 642(L) 720 - 1,589 mg/dL 10/03/2023 6:21 PM EDT [facility] IGM 32(L) 35 - 225 mg/dL 10/03/2023 6:21 PM EDT [facility] Blood Venous blood specimen / Unknown Venipuncture / Unknown 10/03/2023 2:50 PM EDT 10/03/2023 2:50 PM EDT Rebecca Romero Abelardo TELEPHONE COLLECTOR, DNP LAB BLOOD ORDERABLES Final Result Performing Organization Address [facility] Co de Phone Number [facility] [address] [place] [address] * Acute Hepatitis Panel (10/03/2023 2:50 PM EDT) Hepatitis B Surf Antigen Negative Negative 10/03/2023 7:13 PM EDT [facility] Hepatitis C Antibody Negative Negative 10/03/2023 7:13 PM EDT [facility] Hepatitis A Antibody IgM Negative Negative 10/03/2023 7:13 PM EDT [facility] Hepatitis B Core Antibody IgM Negative Negative 10/03/2023 7:13 PM EDT [facility] Blood Venous blood specimen / Unknown Venipuncture / Unknown 10/03/2023 2:50 PM EDT 10/03/2023 2:50 PM EDT Rebecca Romero Abelardo TELEPHONE COLLECTOR, DNP LAB BLOOD ORDERABLES Final Result Performing Organization Address [facility] Phone Number [facility] [address] [place] [address] * Hepatitis B Surface Antibody, Quantitative (10/03/2023 2:50 PM EDT) Hepatitis B Surface Antibody, Quantitative <8.00 NonReactiv e: <8, Grayzone: 8 - <12, Reactive: >= 12 mIU/mL 10/03/2023 7:10 PM EDT [facility] Comment: Nonreactive. Individual is considered not immune to HBV infection. Blood Venous blood specimen / Unknown Venipuncture / Unknown 10/03/2023 2:50 PM EDT 10/03/2023 2:50 PM EDT us Rebecca Fountainbent TELEPHONE COLLECTOR, DNP LAB BLOOD ORDERABLES Final Result Performing Organization Address [facility] Co de Phone Number [facility] [address] [place] [address] * (ABNORMAL) Hepatitis A Antibody IgG (10/03/2023 2:50 PM EDT) Pathologist [facility] Hepatitis A Antibody IgG Positive(A ) Negative 10/03/2023 7:10 PM EDT [facility] Blood Venous blood specimen / Unknown Venipuncture / Unknown 10/03/2023 2:50 PM EDT 10/03/2023 2:50 PM EDT us Rebecca Romero Abelardo TELEPHONE COLLECTOR, DNP LAB BLOOD ORDERABLES Final Result Performing Organization Address [facility] de Phone Number [facility] [address] [place] [address] * (ABNORMAL) Ferritin, Serum (10/03/2023 2:50 PM EDT) Pathologist [facility] Ferritin, Serum 183(H) 13 - 150 ng/mL 10/03/2023 6:25 PM EDT [facility] Blood Venous blood specimen / Unknown Venipuncture / Unknown 10/03/2023 2:50 PM EDT 10/03/2023 2:50 PM EDT Rebecca Romero Abelardo TELEPHONE COLLECTOR, DNP LAB BLOOD ORDERABLES Final Result Performing Organization Address City/[facility] Co de Phone Number [facility] [address] [place] [address] * Ceruloplasmin (10/03/2023 2:50 PM EDT) Pathologist [facility] Ceruloplasmin 34 20 - 60 mg/dL 10/05/2023 4:09 AM EDT [facility] Blood Venous blood specimen / Unknown Venipuncture / Unknown 10/03/2023 2:50 PM EDT 10/03/2023 2:50 PM EDT us Rebecca Zhou TELEPHONE COLLECTOR, DNP LAB BLOOD ORDERABLES Final Result [facility] [address] [place] [address] * Anti-smooth muscle antibody, IgG (10/03/2023 2:50 PM EDT) Smooth Muscle Ab, IgG Titer <1:20 <1:20 10/06/2023 10:53 PM EDT [facility] [employer] (TERRI) Blood Venous blood specimen / Unknown Venipuncture / Unknown 10/03/2023 2:50 PM EDT 10/03/2023 2:50 PM EDT Narrative [facility] [employer] ([facility]) - 10/06/2023 10:53 PM EDT INTERPRETIVE INFORMATION: ??Smooth Muscle Ab, IgG Titer ??Less than 1:20 ........ Negative - No antibody detected. ??1:20 - 1:80 ??.......... Weak Positive - Suggest repeat ?in two to three weeks with fresh ?specimen. ??1:160 or greater ...... Positive - Suggestive of ?autoimmune hepatitis or chronic ?active hepatitis. Performed By: [facility] [address] [place] [address] [employer] Manager: Roger Guerrero MD, PhD CLIA Number: [id number] us Rebecca Zhou TELEPHONE COLLECTOR, DNP LAB BLOOD ORDERABLES Final Result [facility] [employer] ([facility]) [address] [place] [address] * Antinuclear Antibody (ABDOULAYE), HEp-2, IgG (10/03/2023 2:50 PM EDT) ABDOULAYE INTERPRETIVE COMMENT See Note 10/06/2023 10:10 AM EDT [facility] ([facility]) Anti Nuc Ab Screen <1:80 <1:80 10/06/2023 10:10 AM EDT [facility] ([facility]) Blood Venous blood specimen / Unknown Venipuncture / Unknown 10/03/2023 2:50 PM EDT 10/03/2023 2:50 PM EDT Narrative [facility] ([facility]) - 10/06/2023 10:10 AM EDT Antinuclear antibodies by IFA negative for homogeneous, speckled, nucleolar, centromere, and nuclear dots patterns. Cytoplasmic antibodies by IFA negative for reticular/AMA, discrete/GW body-like, polar/golgi-like, rods and rings, and cytoplasmic speckled patterns. INTERPRETIVE INFORMATION: ABDOULAYE Interpretive Comment Presence of antinuclear antibodies (ABDOULAYE) is a hallmark feature of systemic autoimmune rheumatic diseases (SARD). However, ABDOULAYE lacks diagnostic specificity and is associated with a variety of diseases (cancers, autoimmune, infectious, and inflammatory conditions) ??and may also occur in healthy individuals in varying prevalence. The lack of diagnostic specificity requires confirmation of positive ABDUOLAYE by more specific serologic tests. ABDOULAYE (nuclear reactivity) positive patterns reported include centromere, homogeneous, nuclear dots, nucleolar, or speckled. ABDOULAYE (cytoplasmic reactivity) positive patterns reported include reticular/AMA, discrete/GW body-like, polar/golgi-like, cytoplasmic speckled or rods and rings. All positive patterns are reported to endpoint titers (1:2560). Reported patterns may help guide differential diagnosis, although they may not be specific for individual antibodies or diseases. Mitotic staining patterns not reported. ??Negative results do not necessarily rule out SARD. Performed By: [facility] [address] [place] [address] [employer] Manager: Roger Guerrero MD, PhD CLIA Number: [id number] Rebecca Zhou TELEPHONE COLLECTOR, DNP LAB BLOOD ORDERABLES Final Result [facility]) [address] [place] [address] * Idmjw-2-Gjdohrcxqhx Enzyme Concentration (SO) (10/03/2023 2:50 PM EDT) ALPHA 1 ANTITRYPSIN 192 90 - 200 mg/dL 10/06/2023 3:30 AM EDT [facility] ([facility]) Blood Venous blood specimen / Unknown Venipuncture / Unknown 10/03/2023 2:50 PM EDT 10/03/2023 2:50 PM EDT Narrative [facility] ([facility]) - 10/06/2023 3:30 AM EDT To convert to umol/L, multiply mg/dL by 0.185 Performed By: [facility] [address] [place] [address] [employer] Manager: Roger Guerrero MD, PhD CLIA Number: [id number] Rebecca Zhou APRN, [facility] LAB BLOOD ORDERABLES Final Result Performing Organization Address City/[facility] Co de Phone Number [facility] [address] [place] [address] * Alpha Fetoprotein, Serum (10/03/2023 2:50 PM EDT) Pathologist [facility] Alpha Fetoprotein, Serum <2.3 <10.0 ng/mL 10/03/2023 6:25 PM EDT [facility] Blood Venous blood specimen / Unknown Venipuncture / Unknown 10/03/2023 2:50 PM EDT 10/03/2023 2:50 PM EDT Narrative [facility] - 10/03/2023 6:25 PM EDT Performed by [employer] electrochemiluminescent immunoassay which is traceable to the 1st AFP IRP WHO Reference standard 72/255. Results obtained with different test methods or kits cannot be used interchangeably. Rebecca Zhou APRN, DNP LAB BLOOD ORDERABLES Final Result [facility] [address] [place] [address] * Prothrombin Time/INR (10/03/2023 2:50 PM EDT) Prothrombin Time 13.4 12.0 - 14.3 sec 10/03/2023 5:44 PM EDT [facility] INR 1.0 0.9 - 1.1 10/03/2023 5:44 PM EDT [facility] Blood Venous blood specimen / Unknown Venipuncture / Unknown 10/03/2023 2:50 PM EDT 10/03/2023 2:50 PM EDT Narrative [facility] - 10/03/2023 5:44 PM EDT OPTIMAL INR RANGES FOR PATIENT ON ORAL ANTICOAGULANT THERAPY Prevention of venous thromboembolism ?INR 2.0 to 3.0 In patients with heart disease: Atrial fibrillation ?INR 2.0 to 3.0 Valvular heart disease ? INR 2.0 to 3.0 Tissue heart valves ?INR 2.0 to 3.0 Mechanical prosthetic valves ? INR 2.5 to 3.5 Prevention of recurrent OK ? INR 2.5 to 3.5 Rebecca Zhou TELEPHONE COLLECTOR, DNP LAB BLOOD ORDERABLES Final Result Performing Organization Address City/State/[facility] Co de Phone Number [facility] [address] [place] [address] * (ABNORMAL) CBC W/O Differential (10/03/2023 2:50 PM EDT) WBC Count 3.39(L) 3.70 - 10.30 10*3/uL LAB HEMATOLOGY METHOD 10/03/2023 5:31 PM EDT [facility] RBC Count 3.18(L) 3.90 - 5.20 10*6/uL LAB HEMATOLOGY METHOD 10/03/2023 5:31 PM EDT [facility] HGB 10.7(L) 11.2 - 15.7 g/dL LAB HEMATOLOGY METHOD 10/03/2023 5:31 PM EDT [facility] HCT 33.6(L) 34.0 - 45.0 % LAB HEMATOLOGY METHOD 10/03/2023 5:31 PM EDT [facility] Platelet Count 133(L) 155 - 369 10*3/uL LAB HEMATOLOGY METHOD 10/03/2023 5:31 PM EDT [facility] MCV 106(H) 79 - 98 fL LAB HEMATOLOGY METHOD 10/03/2023 5:31 PM EDT [facility] MCH 33.6(H) 26.0 - 32.0 pg LAB HEMATOLOGY METHOD 10/03/2023 5:31 PM EDT [facility] MCHC 31.8 30.7 - 35.5 g/dL LAB HEMATOLOGY METHOD 10/03/2023 5:31 PM EDT [facility] RDW 17.2(H) 11.5 - 14.5 % LAB HEMATOLOGY METHOD 10/03/2023 5:31 PM EDT [facility] MPV 11.6 8.8 - 12.5 fL LAB HEMATOLOGY METHOD 10/03/2023 5:31 PM EDT [facility] nRBC 0.0 <=0.0 per 100 WBCs LAB HEMATOLOGY METHOD 10/03/2023 5:31 PM EDT [facility] Blood Venous blood specimen / Unknown Venipuncture / Unknown 10/03/2023 2:50 PM EDT 10/03/2023 2:50 PM EDT Rebecca Zhou TELEPHONE COLLECTOR, DNP LAB BLOOD ORDERABLES Final Result Performing Organization Address City/State/[facility] Co de Phone Number [facility] [address] [place] [address] * (ABNORMAL) Comprehensive Metabolic Panel, Plasma (10/03/2023 2:50 PM EDT) [facility] Glucose, Plasma 98 74 - 99 mg/dL 10/03/2023 5:59 PM EDT [facility] BUN, Plasma 21 8 - 23 mg/dL 10/03/2023 5:59 PM EDT [facility] Creatinine, Plasma 1.14(H) 0.60 - 1.10 mg/dL 10/03/2023 5:59 PM EDT [facility] BUN/Creatinine Ratio 18 10/03/2023 5:59 PM EDT [facility] Sodium, Plasma 143 136 - 145 mmol/L 10/03/2023 5:59 PM EDT [facility] Potassium, Plasma 4.4 3.7 - 4.8 mmol/L 10/03/2023 5:59 PM EDT [facility] Chloride, Plasma 105 97 - 107 mmol/L 10/03/2023 5:59 PM EDT [facility] CO2, Plasma 28 22 - 29 mmol/L 10/03/2023 5:59 PM EDT [facility] Anion Gap 10 6 - 16 mmol/L 10/03/2023 5:59 PM EDT [facility] Total Calcium, Plasma 9.8 8.9 - 10.2 mg/dL 10/03/2023 5:59 PM EDT [facility] Total Protein 6.3 6.3 - 7.9 g/dL 10/03/2023 5:59 PM EDT [facility] Albumin, Plasma 4.0 3.5 - 5.2 g/dL 10/03/2023 5:59 PM EDT [facility] AST, Plasma 30 10 - 35 U/L 10/03/2023 5:59 PM EDT [facility] ALT, Plasma 19 10 - 35 U/L 10/03/2023 5:59 PM EDT [facility] Alkaline Phosphatase, Plasma 66 46 - 142 U/L 10/03/2023 5:59 PM EDT [facility] Total Bilirubin, Plasma 0.3 0.2 - 1.1 mg/dL 10/03/2023 5:59 PM EDT [facility] eGFRcr 47.6 mL/min/1.7 3m*2 10/03/2023 5:59 PM EDT [facility] Comment:Reported eGFRcr in m L/min/1.73m2 is based the CKD-EPI 2020 equation that does not use a race coefficient. Blood Venous blood specimen / Unknown Venipuncture / Unknown 10/03/2023 2:50 PM EDT 10/03/2023 2:50 PM EDT Rebecca Zhou APRN, IVELISSE LAB BLOOD ORDERABLES Final Result [facility] [address] [place] [address] documented in this encounter Visit Diagnoses Diagnosis Elevated liver enzymes- Primary Other nonspecific abnormal serum enzyme levels Other specified diseases of liver Hepatic fibrosis, unspecified Atrial fibrillation, unspecified type (CMS/HCC) Liver cyst Other specified disorders of liver Healthcare maintenance documented in this encounter Additional Health Concerns Assessment Noted Time A fall risk assessment has been complete d for the patient 10/03/2023 2:05 PM EDT A Body Mass Index follow-up plan has been documented for the patient 10/03/2023 2:48 PM EDT documented as of this encounter Care Teams Adjunct Instructor Relationship Specialty Start Date End Date Renetta Lopez APRN [address] [place] [address] PCP - General 09/13/22 documented as of this encounter
--- OUTSIDE RECORDS SUMMARY | 2024-01-26 15:07 | XMS_ITS | Encounter Summary ---
Author Organization [facility] Address [address] [place] [address] Care Team Providers Care [place] Name Role Phone Renetta Lopez APRN Primary Care Provider [phone] Encounter Details Date Type Department Care Team (Late st Contact Info) Description 10/25/2023 Orders Only [facility] Medicine Specialties [address] [place] [address] lEise Alfaro [facility] [address] [place] [address] Elevated liver enzymes; Liver cyst Social History Tobacco Use Types Packs/Day Years [...] Miscellaneous Notes * Result Encounter Note - Rebecca Zhou APRN, DNP - 10/25/2023 8:28 AM EDT Discussed results with pt over the phone. Please change follow up to Feb 26 at 1140 am withUS and Fibroscan before our visit. Pls cancel visit on 02/19/2023. Daughter and pt are aware of the plan and will check my chart for appointment times. Rebecca Jordan documented in this encounter Plan of Treatment Upcoming Encounters Date Type Department Care Team (Late st Contact Info) Description 01/30/2024 4:00 PM EST Office Visit [facility] [address], [address] [place] [id number] Kacy Delaney APRN [address] [place] [address] 02/21/2024 3:15 PM EST Appointment [facility] [address] [place] [address] 02/27/2024 11:00 AM EST Ancillary Procedure [facility] Medicine Specialties [address] [place] [phone] 02/27/2024 11:40 AM EST Office Visit [facility] Medicine Specialties [address] [place] [address] Rebecca Zhou APRN, IVELISSE [address] [place] [address] documented as of this encounter Procedures Procedure Name Priority Date/Time Associated Diagnosis Comments MR ABDOMEN W AND WO IV CONTRAST Routine 10/25/2023 8:28 AM EDT Elevated liver enzymes Liver cyst documented in this encounter Results * MR Abdomen w and wo IV Contrast (10/25/2023 8:28 AM EDT) Anatomical Region Laterality Modality Abdomen Magnetic Resonan ce us Rebecca Zhou APRN, DNP IMG MRI PROCEDURES Fi nal Result documented in this encounter Visit Diagnoses Diagnosis Elevated liver enzymes Other nonspecific abnormal serum enzyme levels Liver cyst Other specified disorders of liver documented in this encounter Additional Health Concerns Assessment Noted Time A fall risk assessment has been complete d for the patient 10/03/2023 2:05 PM EDT A Body Mass Index follow-up plan has been documented for the patient 10/03/2023 2:48 PM EDT documented as of this encounter Care Teams [place] Relationship Specialty Start Date End Date Renetta Lopez, [employer] [address] [id number] PCP - General 09/13/22 documented as of this encounter
--- OUTSIDE RECORDS SUMMARY | 2024-01-26 15:07 | XMS_ITS | Data Portability ---
Author Organization [facility] Address [address] [place] [address] Care Team Providers Care Casting Tester Name Role Phone CONTRERAS HOOPER Primary Care Provider MIRIAN WILLIAMSON Referring Provider [phone] Assessment Encounter Date Assessment Date Assessment LastModified by Organization Details LastModified Time 04/03/2021 04/03/2021 Ms. Merritt is a pleasant 80-year-old female previously complained of left-sided low back pain with referral to left lower extremity. She reports her symptoms are getting worse over the past several years. She did undergo 2 left puga L2-3 interlaminar epidural steroid injections most recently on 02/06/2021. She reports notable improvement in her back pain but continues to have radicular symptoms are fairly severe in the left lower extremity extends to the top of her foot. Symptoms are aggravated in a stenotic fashion. Previous MRI from 2017 is demonstrated some fairly significant stenosis related to ligamentum flavum hypertrophy which I suspect is worse as well as some instability at L3-4. She is on Lyrica 50 mg I believe twice daily by another provider with some benefit. This office does not provide any medication for this patient. Exam shows she is grossly neurologically intact for bilateral lower extremities but does have some mild decrease in strength for hip flexion 4 out of 5 and to lesser extent dorsal and plantar flexion 4+ out of 5 on the left. 1. X-ray of the lumbar spine 09/29/2020 demonstrates L1-2 spondylolisthesis, L3-4 spondylolisthesis, and severe L5-S1 disc space narrowing. 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 2. X-ray of the left hip 09/29/2020 demonstrates minimal joint space narrowing with osteopenia. 3. MRI of the lumbar spine demonstrates grade 1 L3-4 spondylolisthesis with ligamentum flavum hypertrophy resulting in moderate to severe central canal stenosis. The above image findings were discussed with the patient. 02-06-2021 #2 ILESI L2/3 (leftward) : 80% pain relief 12/05/2020 #1 ILESI L2/3 (Leftward) 75% Current medications include tramadol and Lyrica. The patient feels that they receive inadequate analgesia and activity improvement with the medication. The patient denies side effects from the medications. UDS today is appropriate and will be sent for confirmation testing to verify compliance and establish a baseline. The patient was advised that the purpose of this urine drug screen is to monitor for compliance and to assist in risk stratification. The results of this preliminary screening test was discussed with the patient. ORT score is 1 and PHQ-9 demonstrates mild depression. CHERYL report was reviewed today. Based upon the above I would consider the patient to be Low risk. Plan: Ms. Merritt is a pleasant 80-year-old female with a primary complaint of radicular symptoms in the left lower extremity despite interlaminar L2-3 epidural steroid injections. Back pain is fairly well controlled at this time. She does have some weakness for her hip flexors 4 out of 5 and to lesser extent dorsi and plantar flexion. I have ordered flexion-extension films of her lumbar spine as well as an MRI. She may be amenable to a M ILD procedure. I will have her follow-up with Dr. Cobb after this for further evaluation and treatment planning. No medications were provided today. I have mentioned that she may discuss increasing her Lyrica with her provider to something greater than 50 mg twice daily. She appears to understand. Much of this encounter is an electronic gre tutor/trans lation of spoken language to printed text. The electronic translation of spoken language may permit erroneous or at times nonsensical words of phrases to be inadvertently transcribed; Although I have reviewed the note for such errors, some may still exist. [email or web address] Not available 04/03/2021 11:11:45 04/27/2021 04/27/2021 This is an 80-year-old female seen today for follow-up evaluation with a new MRI. She initially presented with lumbar stenosis and radiculopathy. We treated her stenosis with L2-3 IL LILI which did provide benefit, however she continues to have left L5 radiculopathy. She is on a walker as a result. There is no detectable weakness on examination today. 1. X-ray of the lumbar spine 09/29/2020 demonstrates L1-2 spondylolisthesis, L3-4 spondylolisthesis, and severe L5-S1 disc space narrowing. 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 2. X-ray of the left hip 09/29/2020 demonstrates minimal joint space narrowing with osteopenia. 3. MRI of the lumbar spine demonstrates grade 1 L3-4 spondylolisthesis with ligamentum flavum hypertrophy resulting in moderate to severe central canal stenosis. 4. MRI of the lumbar spine demonstrates grade 1 L3-4 spondylolisthesis with severe canal stenosis combined with ligamentum flavum hypertrophy. At L4-5 there is minimal listhesis but severe stenosis due to ligamentum flavum hypertrophy. At L5-S1 there is a large leftward subarticular disc herniation with significant compression on the S1 nerve root and moderate L5-S1 foraminal narrowing. 5. Lumbar flexion-extension films are not available for review unfortunately. The above image findings were discussed with the patient. 02-06-2021 #2 ILESI L2/3 (leftward) : 80% pain relief 12/05/2020 #1 ILESI L2/3 (Leftward) 75% Current medications include tramadol and Lyrica. The patient feels that they receive inadequate analgesia and activity improvement with the medication. The patient denies side effects from the medications. ORT score is 1 and PHQ-9 demonstrates mild depression. CHERYL report was reviewed today. Based upon the above I would consider the patient to be Low risk. She appears to be most symptomatic from the L5-S1 disc herniation, although she does have significant stenosis more proximal. I recommend left L5-S1 and S1 TFESI. I am also going to refer her to neurosurgery for further evaluation to discuss surgical options. Much of this encounter is an electronic gre tutor/trans lation of spoken language to printed text. The electronic translation of spoken language may permit erroneous or at times nonsensical words of phrases to be inadvertently transcribed; Although I have reviewed the note for such errors, some may still exist. [email or web address] Not available 04/27/2021 11:17:33 Plan of Treatment Reminders Order Date Submit Date Provider Last Modified By Organization Details Last Modified Time Details Appointments None recorded. Lab None recorded. Referral neurologica l surgeon referral 2021 022 [email or web address] [facility], [address], [place], [address], 08:07:11 Procedures epidural steroid injection, lumbar interlamina r (PROC) - #2 ILESI L2/3 (leftward) Jordyn Je in 4 weeks Hold ASA 6 days prior 2020 021 [email or web address] Not available 14:10:50 epidural steroid injection, lumbar transforami nal (PROC) - #1 (LEFT) TF LILI L5/S1 and S1 Dr. Cobb JE (04/28/21) 2021 022 [email or web address] Not available 14:48:04 Surgeries None recorded. Imaging [facility], w[facility]o [facility] [address], [place], [address], 09:23:36 XR, lumbosacral spine, 4 or more view - Include Flexion/ extention films 2021 022 [email or web address] Not available 10:14:33 Medication Orders None recorded. Patient TargetsNo targets recorded. Patient Instructions Encounter Date Encounter Id Patient Instructions Last Modified By Organization Details Last Modified Time 04/27/2021 [id number] medical record request* - Please send all XRAY reports [email or web address] Not available 05/23/2021 13:17:48 Reason for Referral Neurological Surgeon Referra l for Lumbar radiculopathy Referring Physician: Kade Cobb, Pain Management, Encounter Date: 04/27/2021 Results Created Date Observation Date Name Description Value Unit Range Abnormal Flag Note LastModifiedBy Organization Detail LastModifiedTime 11/18/19 21 11/17/2020 drug scree n, urine THC: negati ve Not Available [facility] [address], [place], [address], 11/17/2020 10:53:08 11/18/19 21 11/17/2020 drug scree n, urine Buprenorphin e: negati ve Not Available [facility] [address], [place], [address], 11/17/2020 10:53:08 11/18/19 21 11/17/2020 drug scree n, urine TCA: negati ve Not Available [address], [place], [address], 11/17/2020 10:53:08 11/18/19 21 11/17/2020 drug scree n, urine Barbiturates : negati ve Not Available [address], [place], [address], 11/17/2020 10:53:08 11/18/19 21 11/17/2020 drug scree n, urine Benzodiazepi claudia: negati ve Not Available [address], [place], [address], 11/17/2020 10:53:08 11/18/19 21 11/17/2020 drug scree n, urine Methadone: negati ve Not Available [address], [place], [address], 11/17/2020 10:53:08 11/18/19 21 11/17/2020 drug scree n, urine Amphetamines : negati ve Not Available [address], [place], [address], 11/17/2020 10:53:08 11/18/19 21 11/17/2020 drug scree n, urine Morphine/Opi ates: negati ve Not Available [address], [place], [address], 11/17/2020 10:53:08 11/18/19 21 11/17/2020 drug scree n, urine Oxycodone: negati ve Not Available [facility] [address], [place], [address], 11/17/2020 10:53:08 11/18/19 21 11/17/2020 drug scree n, urine MDMA: negati ve Not Available [facility] [address], [place], [address], 11/17/2020 10:53:08 11/18/19 21 11/17/2020 drug scree n, urine Cocaine: negati ve Not Available [facility] [address], [place], [address], 11/17/2020 10:53:08 11/18/19 21 11/17/2020 drug scree n, urine Methamphetam ine: negati ve Not Available [facility] [address], [place], [address], 11/17/2020 10:53:08 04/28/19 22 04/26/2021 MRI, lumba r spine , w/o contr ast No observ ation record ed. [facility] [address], [place], [address], 04/27/2021 10:11:43 05/31/19 22 04/25/2021 medic al recor d reque st* No observ ation record ed. [email or web address] [facility] (X-Ray) [address], [place], [address], 05/30/2021 15:47:04 Result Notes None recorded. Problems Name Problem SNOMED Code Status Onset Date Resolution Date Notes Provider Name and Address Organization Details Recorded Time Low back pain 310789574 Active 2020 ASTRID carrasco - [facility] 10:56:25 Spinal stenosis of lumbar region 24438130 Active 2020 Kade Cobb MD [address] [place] [address], [address] , [facility] 11:22:48 Lumbar radiculopathy 786412804 Active 2020 Kade Cobb MD [address] [place] [address], [address] , [facility] 11:22:49 Intervertebra l disc disorder 58595992 Active 2020 Kade Cobb MD [address] [place] [address], [address] , [facility] 11:22:49 Problem Notes None recorded. Procedures Surgical History Date Name Laterality Status Provider Name and Address Organization Details Recorded Time 04/29/19 22 Lumbar Transforaminal Epidural Steroid Injection (2 Levels Unilateral): completed Malka Duncan [facility] 04/28/2021 09:27:05 02/07/20 21 Lumbar LILI: Interlaminar completed Marisel Greenwood [facility] 02/06/2021 10:22:57 12/06/19 21 Lumbar LILI: Interlaminar completed Malka Duncan [facility] 12/05/2020 11:08:39 Coronary Artery Bypass completed rick lei [facility] 11/17/2020 10:55:43 Foot/Ankle Surgery completed clare lei [facility] 11/17/2020 10:55:43 Carpal Tunnel Release completed rick lei [facility] 11/17/2020 10:55:43 Imaging Results Imaging Date Name Status LastModified by [facility] Details LastModified Time 04/26/2021 MRI, lumbar spine, w/o contrast completed [facility] [address], [place], [address], 04/27/2021 10:11:43 04/25/2021 medical record request* completed [email or web address] [facility] (X-Ray) [address], [place], [address], 05/30/2021 15:47:04 Procedure Notes None recorded. Medical Equipment None Reported. Allergies Allergen ID Allergen Name Allergen Category Reaction Reaction Severity Criticality Documentation Date Start Date Code Code System Note Provider Name and Address Organization Details Recorded Time 329254 amoxicill in medicatio n itching rash Not available Not available Not available 11/17/2020 723 RxNorm ASTRID carrasco - [facility] 10:55:27 Medications Name Sig Start Date Stop Date Status Note LastModified by Organization Details LastModified Time atorvastati n 40 mg tablet TAKE 1 TABLET BY MOUTH AT BEDTIME active Not Available Not Available No t Available ofloxacin 0.3 % eye drops INSTILL 1 DROP TO OPERATIVE EYE 4 TIMES DAILY FOR 7 DAYS active Not Available Not Available No t Available diltiazem CD 240 mg capsule,ext ended release 24 hr TAKE 1 CAPSULE BY MOUTH ONCE DAILY active Not Available Not Available No t Available prednisone 5 mg tablet TAKE 4 TABLETS BY MOUTH DAILY FOR 3 DAYS THEN DECREASE BY 1 TABLET EVERY 3 DAYS UNTIL COMPLETE. 04/27 completed Not Available Not Available Not Available sulfasalazi ne 500 mg tablet,karol yed release 04/03 completed Not Available Not Available Not Available aspirin 81 mg tablet,karol yed release Take 1 tablet every day by oral route. active Not Available Not Available No t Available tramadol 50 mg tablet TAKE 1 TABLET BY MOUTH THREE TIMES DAILY. active Not Available Not Available No t Available ketorolac 0.5 % eye drops STARTING 3 DAYS BEFORE SURGERY, USE 1 DROP IN THE OPERATIVE EYE 4 TIMES A DAY FOR 10 DAYS, THEN DECREASE TO TWICE A DAY FOR 14 DAYS active Not Available Not Available No t Available prednisolon e acetate 1 % eye drops,suspe nsion INSTILL 1 DROP 4 TIMES DAILY TO OPERATIVE EYE FOR 7 DAYS, THEN DECREASE TO TWICE A DAY FOR 14 DAYS active Not Available Not Available No t Available methotrexat e sodium 2.5 mg tablet TAKE 8 TABLETS BY MOUTH EACH WEEK. active Not Available Not Available No t Available pantoprazol e 40 mg tablet,karol yed release TAKE 1 TABLET BY MOUTH ONCE DAILY active Not Available Not Available No t Available folic acid 1 mg tablet TAKE 1 TABLET BY MOUTH ONCE DAILY active Not Available Not Available No t Available metoprolol tartrate 25 mg tablet TAKE 1 TABLET BY MOUTH TWICE DAILY active Not Available Not Available No t Available pregabalin 50 mg capsule TAKE 3 CAPSULES BY MOUTH EVERY DAY AT BEDTIME active Not Available Not Available No t Available diclofenac 1 % topical gel APPLY 2 GRAMS TO AFFECTED AREA 3-4 TIMES DAILY active Not Available Not Available No t Available Vitals Date Recorded Body height Body mass index (BMI) Body weight Provider Name and Address Organization Details Last Updated DateTime 04/03/2021 157.48 cm 30.2 kg/m2 37155.74 g rick do [facility] 04/03/2021 10:48:04 Date Recorded Body height Body mass index (BMI) Body weight Provider Name and Address Organization Details Last Updated DateTime 04/27/2021 157.48 cm 30.2 kg/m2 06034.74 g Essence Rosenberg [facility] 04/27/2021 10:52:39 Social History Question Answer Notes LastModified by Organizat ion Details LastModified Time Tobacco Smoking Status Never Smoker rick dolucas lockett [facility] 11/17/2020 10:55:40 What Is Your Level Of Caffeine Consumption? Moderate Information not available 11/17/2020 Are You Deaf Or Do You Have Serious Difficulty Hearing? No Information not available 11/17/2020 What Is Your Relationship Status? Information not available 11/17/2020 Do You Feel Stressed (tense, Restless, Nervous, Or Anxious, Or Unable To Sleep At Night)? [id number] Information not available 11/17/2020 Sex: Unknown Functional Status Question Answer Note LastModified by Organizat ion Details LastModified Time Do you have difficulty walking or climbing stairs? Yes Information not available 11/17/2020 Do you have difficulty doing errands alone? No Information not available 11/17/2020 What is your exercise level? Occasional Information not available 11/17/2020 Mental Status Question Answer Note LastModified by Organization D etails LastModified Time Do you have difficulty concentrating, remembering or making decisions? No Information no t available 11/17/2020 Family History Relationship Description Onset Age of this Age Resolved Age Notes LastModified by Organization Details LastModified Time Mother Heart disease [email or web address] Not available 2020 10:55:31 Unspecified Relation Rheumatoid arthritis vdenny Not available 2020 10:55:31 Brother Heart disease vdenny Not available 2020 10:55:31 Medical History Condition Response Bipolar Disease N Coronary Artery Disease Y Seizure Disorder N Gout N Thyroid Disease N Atrial Fibrillation N Hernia N Head Trauma/Injury N COPD N Depression N Anxiety Disorder N Acid Reflux (GERD) N Cancer N Skin Disorder N Stroke N High Cholesterol N Liver Disease N Rheumatoid Arthritis Y Fibromyalgia N Headaches N Autoimmune Disease N Kidney Disease N Osteoarthritis Y Neurosurgery N DVT Y Peptic Ulcer Disease N Anemia N Heart Attack ([place]) Y Diabetes N Cardiomyopathy N Bleeding Disorder N CHF N AIDS/HIV N Inflammatory Bowel Disease N Dementia N Asthma N Substance Abuse N Sleep Apnea Y Hepatitis N Heart Disease Y Pulmonary Embolism N Chronic Low Back Pain Y Hypertension Y Osteoporosis Y Gynecological HistoryNo gynecological history recorded. Obstetrics History GPAL:G 0 P 0 0 0 0 Past Encounters Encounter ID Performer Location Encounter Start Date Encounter Closed Date Diagnosis/Indication Diagnosis SNOMED-CT Code Diagnosis ICD10 Code [id number] Kade Cobb MD [facility] [address] [place] [address] 11/17/2020 09:50:10 11/17/2020 11:22:26 Long-term drug therapy 999835411 Z79.899 Interverte bral disc disorder 02136286 M51.27 Lumbar radiculopathy 128 184342 M54.16 Spinal vega nosis of lumbar region 67156740 M48.024 [id number] MD [place] [facility] [address] [place] [address] 12/05/2020 10:09:47 12/05/2020 11:04:32 Lumbar radiculopathy 469478766 M54.16 [id number] MD [place] [address] [place] [address] 02/06/2021 09:59:29 02/06/2021 10:22:15 Lumbar radiculopathy 569197589 M54.16 [id number] Kade Cobb MD [facility] [address] [place] [address] 04/03/2021 10:45:54 04/03/2021 11:09:03 Spinal stenosis of lumbar region 75156901 M48.062 Interverte bral disc disorder 29965034 M51.27 Lumbar radiculopathy 128 541384 M54.16 Long-term drug therapy 637343118 Z79.220 [id number] Kade Cobb MD [facility] [address] [place] [address] 04/27/2021 10:39:05 04/27/2021 11:15:50 Spinal stenosis of lumbar region 63276015 M48.062 Interverte bral disc disorder 94432961 M51.27 Lumbar radiculopathy 128 824090 M54.16 [id number] Kade Cobb MD [facility] [address] [place] [address] 04/28/2021 08:58:39 04/28/2021 09:21:54 Lumbar radiculopathy 959581107 M54.16 Health Concerns Section Related Observation LastModified by Organization Detai ls LastModified Time None Recorded Concern Status LastModified by Organization Details LastModified Time None Recorded Advance Directives Directive None Recorded Payers Encounter Date Sequence Insurance Name Policy Number Policy Gunter Covered Member ID Gunter Member ID Guarantor Name 12/05/2020 1 [place] Chen Merritt [id number] Chen Merritt 12/05/2020 2 [employer] (MEDICARE SUPPLEMENT) Chen Merritt [id number] Chen Merritt 02/06/2021 1 [place] Chen Merritt [id number] Chen Merritt 02/06/2021 2 [employer] OPT[employer] (MEDICARE SUPPLEMENT) Chen Merritt [id number] Chen Merritt 04/03/2021 1 [place] Chen Merritt [id number] Chen Merritt 04/03/2021 2 [employer] (MEDICARE SUPPLEMENT) Chen Merritt [id number] Chen Merritt 04/27/2021 1 [place] Chen Merritt [id number] Chen Merritt 04/27/2021 2 [employer] (MEDICARE SUPPLEMENT) Chen Merritt [id number] Chen Merritt 04/28/2021 1 [place] Chen Merritt [id number] Chen Merritt 04/28/2021 2 [employer] (MEDICARE SUPPLEMENT) Chen Merritt [id number] Chen Merritt Notes Date Note Type Note Provider Name and Address Organization Details Recorded Time 04/03/2021 text/html Follow-up (meds & injections)Reporte d bypatient.Improvem ent:Pain is getting worse. Pain Scores:Average pain- 10/10; Current pain- 10/10; Worst pain- 10/10 Recent Injections:Epidura l steroid injection-; Pain relief from injections- 80% lasting for Current Analgesics:[facility] doesnt prescribe medication at this time. Physical Therapy:Completed course in the past; Response to therapy- made pain worseLow back painReported bypatient.Onset:4 years Location:bilateral paraspinal; radiating down the bilateral lower extremities to the feet Context:started without cause Quality:stabbing; sharp Severity:average pain level: 7/10; worst pain level: 10/10 Alleviating Factors:sitting; rest Aggravating Factors:sitting; standing; walking; going from sit to stand; upstairs; downstairs; morning Timing:varies throughout the day Associated Symptoms:weakness; numbness;tingling; pain radiating down lower extremities;swelli ng;popping/clickin g;urinary incontinence Prior Imaging[facility] Previous Lumbar Surgery:none Previous Injections:none Daily Activities:Living independently.; Able to bathe/groom without assistance.; Able to complete builder beam without much difficulty.;Signif icant difficulty walking secondary to pain, requires assistive device(s). Medications History:NSAIDs: (diclofenac : current); Neuropathics: (pregabalin : current); Opioid pain medications: (tramadol : current) Prior Pain Management:no Patient denies Hospital or Er visits, PCP visits, specialty visits, ror updated imaging since last visit.medicaiton list has been updated as of 04/03/2021. 021 #2 ILESI L2/3 (leftward) : 80% pain relief . Patient states that her pain has radiated from her left buttock down into her left thigh and into her left knee. Kade Cobb MD [address] [place] [address], [address], [facility] 04/03/2021 14:01:57 04/27/2021 text/html Follow-up (meds & injections)Reporte d bypatient.Improvem ent:Pain is getting worse. Pain Scores:Average pain- 10/10; Current pain- 5/10; Worst pain- 10/10 Recent Injections:Epidura l steroid injection-; Pain relief from injections- 80% lasting for weeks; 02-06-2021 #2 ILESI L2/3 (leftward) : 80% pain relief Current Analgesics:[facility] doesnt prescribe medication at this time. Pharmacy verified Physical Therapy:Completed course in the past; Response to therapy- made pain worseLow back painReported bypatient.Onset:4 years Location:bilateral paraspinal; radiating down the bilateral lower extremities to the feet Context:started without cause Quality:stabbing; sharp Severity:moderate; current pain level: 5/10; average pain level: 7/10; worst pain level: 10/10 Alleviating Factors:sitting; rest Aggravating Factors:sitting; standing; walking; going from sit to stand; upstairs; downstairs; morning Timing:varies throughout the day Associated Symptoms:weakness; numbness;tingling; pain radiating down lower extremities;swelli ng;popping/clickin g;urinary incontinence Prior Imaging:x-ray ([facility]) Previous Lumbar Surgery:none Previous Injections:none Daily Activities:Living independently.; Able to bathe/groom without assistance.; Able to complete builder beam without much difficulty.;Signif icant difficulty walking secondary to pain, requires assistive device(s). Medications History:NSAIDs: (diclofenac : current); Neuropathics: (pregabalin : current); Opioid pain medications: (tramadol : current) Prior Pain Management:no Patient denies Hospital or Er visits, PCP visits, specialty visits, or Updated MRI L Spine 04/26/21medicaton list has been updated as of 04/27/21.02-06-2021 #2 ILESI L2/3 (leftward) : 80% pain relief . Patient states that her pain has radiated from her left buttock down into her left thigh and into her left knee. .Patient states she is having L sided pain into her buttock area down to her foot and her toes get numb. Kade Cobb MD [address] [place] [address], [id number], [facility] 04/27/2021 11:20:41 OBGyn Episode No OBEpisode recorded.
--- OUTSIDE RECORDS SUMMARY | 2024-01-26 15:07 | XMS_ITS | Encounter Summary ---
Author Organization [facility] Address [address] [place] [address] Care Team Providers Care Forestry Instructor Name Role Phone Renetta Lopez APRN Primary Care Provider [phone] Reason for Referral * Imaging (Routine) - Pending Review Specialty Diagnoses / Procedures Referred By Dalton haynes Referred To Contact Radiology Diagnoses Elevated liver enzymes Hepatic fibrosis, unspecified Liver cyst Procedures US Liver Screen Rebecca Zhou APRN, DNP [id number] [place] [address] Phone: tel: fax: Referral ID Status Reason Start Date Expiration Date V isits Requested Visits Authorized [id number] Pending Review 10/28/2023 04/28/2025 1 1 Encounter Details Date Type Department Care Team (Late st Contact Info) Description 10/28/2023 Telephone [facility] [address] [place] [address] Rebecca Zhou APRN, DNP [address] [facility] [address] [place] [address] Social History Tobacco Use Types [...] encounter Miscellaneous Notes * Telephone Encounter - Rebecca Zhou APRN, DNP - 10/28/2023 1:01 PM EDT Discussed MR results with pt and daughter over the phone. No liver cyst described but there is concern for liver disease. Repeat US and Fibroscan ordered for day of next visit in Feb, will change appto F2F. Advised them to follow up with PCP regarding changes seen in abdominal aorta. Verbalized understanding documented in this encounter Plan of Treatment Upcoming Encounters Date Type Department Care Team (Late st Contact Info) Description 01/30/2024 4:00 PM EST Office Visit [facility] [place] [address] [facility], [address] [place] [address] Kacy Delaney APRN [address] [place] [address] 02/21/2024 3:15 PM EST Appointment [facility] [address] [place] [address] 02/27/2024 11:00 AM EST Ancillary Procedure [facility] [address] [place] [address] 02/27/2024 11:40 AM EST Office Visit [facility] [address] [place] [address] Rebecca Zhou APRN, DNP [address] [place] [address] Scheduled Orders Name Type Priority Associated Diagnoses Orde r Schedule US Liver Screen Imaging Routine Elevated liver enzymes Hepatic fibrosis, unspecified Liver cyst 1 Occurrences starting 10/28/2023 until 04/26/2025 GI Fibroscan Procedures Routine Elevated liver enzymes Hepatic fibrosis, unspecified Liver cyst 1 Occurrences starting 10/28/2023 until 10/27/2024 documented as of this encounter Visit Diagnoses Diagnosis Elevated liver enzymes- Primary Other nonspecific abnormal serum enzyme levels Hepatic fibrosis, unspecified Liver cyst Other specified disorders of liver documented in this encounter Additional Health Concerns Assessment Noted Time A fall risk assessment has been complete d for the patient 10/03/2023 2:05 PM EDT A Body Mass Index follow-up plan has been documented for the patient 10/03/2023 2:48 PM EDT documented as of this encounter Care Teams Forestry Instructor Relationship Specialty Start Date End Date Renetta Lopez APRN [address] [place] [address] PCP - General 09/13/22 documented as of this encounter
--- OUTSIDE RECORDS SUMMARY | 2024-01-26 15:07 | XMS_ITS | Encounter Summary ---
Author Organization [facility] Address [address] [place] [address] Care Team Providers Care Overhead Crane Truck Loader Name Role Phone Geeta Esteban APRN Primary Care Provider [phone] Reason for Visit * Episode Based Medications (Routine) - Authorized Specialty Diagnoses / Procedures Referred By Contac t Referred To Contact Diagnoses Osteoporosis, unspecified osteoporosis type, unspecified pathological fracture presence Procedures MO DENOSUMAB INJECTION Carlton Sims MD [address] [facility] [address] [place] [address] Phone: tel: fax: [facility] [address] [facility] [address] [place] [address] Phone: tel: fax: Referral ID Status Reason Start Date Expiration Date V isits Requested Visits Authorized [id number] Authorized 09/13/2023 09/12/2024 1 1 Encounter Details Date Type Department Care Team (Latest Contact Info) Description 09/16/2023 2:33 PM EDT - 09/16/2023 11:59 PM EDT Hospital Encounter [facility] [address] [facility] [address] [place] [address] Carlton Sims MD [address] [facility] [address] [place] [address] Osteoporosis, unspecified osteoporosis type, unspecified pathological fracture [...] Sign Reading Time Taken Comments Blood Pressure 148/69 09/16/2023 2:35 PM EDT Pulse 69 09/16/2023 2:35 PM EDT Temperature 36.3 ??C (97.4 ??F) 09/16/2023 2:35 PM ED T Respiratory Rate 16 09/16/2023 2:35 PM EDT Oxygen Saturation - - Inhaled Oxygen Concentration - - Weight 68 kg (150 lb) 09/16/2023 2:35 PM EDT Height 160 cm (5' 3 ) 09/16/2023 2:35 PM EDT Body Mass Index 26.57 09/16/2023 2:35 PM EDT documented in this encounter Medications at Time of Discharge aspirin 81 MG EC tablet Take 1 tablet by mouth Daily. atorvastatin (LIPITOR) 40 MG tablet Take 1 tablet by mouth Daily. calcium carbonate (OS-JASMEET) 1250 (500 Ca) MG tablet Take 1 tablet by mouth 2 (Two) Times a Day. cetirizine (zyrTEC) 10 MG tablet Take 1 tablet by mouth Daily. Cholecalciferol (Vitamin D3) 1000 units capsule Take 1 capsule by mouth Daily. denosumab (Prolia) 60 MG/ML solution prefilled syringe syringe Inject 1 mL under the skin into the appropriate area as directed Every 6 (Six) Months. Diclofenac Sodium (VOLTAREN) 1 % gel gel Apply 2 g topically to the appropriate area as directed 3 (Three) to 4 (Four) times daily. dilTIAZem CD (CARDIZEM CD) 180 MG 24 hr capsule Take 1 capsule by mouth Daily. docusate sodium (COLACE) 100 MG capsule Take 3 capsules by mouth 3 (Three) Times a Day As Needed for Constipation. At bedtime as needed ferrous sulfate 325 (65 FE) MG tablet Take 1 tablet by mouth Daily. folic acid (FOLVITE) 1 MG tablet Take 2 tablets by mouth Daily. 1 tablet by oral route every day 180 tablet 1 09/16/2023 methotrexate 2.5 MG tablet Take 8 tablets by mouth 1 (One) Time Per Week. 96 tablet 09/16/2023 metoprolol succinate XL (TOPROL-XL) 25 MG 24 hr tablet Take 1 tablet by mouth 2 (Two) Times a Day. multivitamin with minerals (CENTRUM SILVER PO) Take 1 tablet by mouth Daily. [id number] mcg pantoprazole (PROTONIX) 40 MG pack packet Take 1 packet by mouth Daily. Mix in 1 teaspoonful of applesauce or apple juice pregabalin (LYRICA) 50 MG capsuleIndicatio ns:Left hip pain,Pain management Take 4 capsules by mouth Daily. 1 cap in the morning and 3 capsules by oral route every bedtime 120 capsule 2 09/16/2023 triamcinolone (KENALOG) 0.5 % cream Apply 1 Application topically to the appropriate area as directed 2 (Two) Times a Day. To affected areas documented as of this encounter Plan of Treatment Upcoming Encounters Date Type Department Care Team (Late st Contact Info) Description 03/02/2024 1:30 PM EST Appointment [facility] [address] [place] [address] documented as of this encounter Visit Diagnoses Diagnosis Osteoporosis, unspecified osteoporosis type, unspecified pathological fracture presence- Primary documented in this encounter Administered Medications Inactive Administered Medications - up to 3 most recent administrations Medication Order MAR Action Action Date Dose Rate Site denosumab (PROLIA) syringe 60 mg 60 mg, Subcutaneous, Once, On Sat09/16/23 at 1451, For 1 doseIndications:Osteoporosis, unspecified osteoporosis type, unspecified pathological fracture presence Given 09/16/2023 2:55 PM EDT 60 mg Left Arm documented in this encounter Care Teams Overhead Crane Truck Loader Relationship Specialty Start Date End Date Geeta Esteban APRN [address] [place] [address] PCP - General Internal Medicine 09/16/23 documented as of this encounter
--- OUTSIDE RECORDS SUMMARY | 2024-01-26 15:07 | XMS_ITS | Encounter Summary ---
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 Advanced Heart Failure Follow Up Chen Merritt is a 82 y.o. female who presents for routine follow up. She has a PMHx significant for ASHD s/p CABG 2008 and subsequent ANGELICA to proximal circ 05/2022, paroxysmal Afib, HTN, HLD, spinal stenosis, arthritis, and carpal tunnel surgery. She also had a low voltage EKG. Her inspector shells was suspicious for cardiac amyloidosis so lab [...] 2 diastolic dysfunction, mod MR, mod TR. At the last OV, lopressor was discontinued to see if it would help with her fatigue. She didn't notice an improvement in fatigue, but did see her BP go up, so this was restarted. Vyndamax was also held d/t as GI felt it could be contributing to elevated LFTs. Ursodiol and green tea were also held. She was treated for anemia with iron supplements and her daughter reports H/H has improved. Most recent labs were completed in April and showed a normalization of LFTs. Following all of these changes,she has felt better. Energy levels have improved. Denies SOB, palpitations, lightheadedness, dizziness, syncope, LE edema, and orthopnea. She notes tightness in her shoulders after taking a bath and getting dressed. Feels better if she presses her shoulder back. This is not similar to prior angina and she does not notice it with any other activity. Review of symptoms 14 Point ROS reviewed and is otherwise negative except as per HPI. Past Medical History Past Medical History: Diagnosis Date Arthritis ASHD (arteriosclerotic heart disease) Carpal tunnel syndrome HLD (hyperlipidemia) HTN (hypertension) LVH (left ventricular hypertrophy) Spinal stenosis Surgical History Past Surgical History: Procedure Laterality Date BACK SURGERY 05/2022 CORONARY ARTERY BYPASS GRAFT 2008 Family History family history includes Coronary artery [...] Take 1 capsule (2,000 Units) by mouth. denosumab (Prolia) 60 MG/ML injection Inject 1 [...] (Lopressor) 25 MG tablet Take 1 tablet (25 mg) by mouth 2 (two) times a day. 60tablet 3 metroNIDAZOLE (Metrocream) 0.75 % cream APPLY CREAM TOPICALLY TO AFFECTED AREA ONCE DAILY pantoprazole (Protonix) 40 MG EC tablet Take [...] by mouth 1 (one) time each day. Tafamidis (Vyndamax) 61 MG capsule Take 1 capsule (61 mg) by mouth every 30 (thirty) days. 30 capsule 11 Green Tea 250 MG capsule Take 500 mg by mouth 2 (two) times a day. (Patient not taking: Reported on07/04/2023) 120 capsule 11 No current facility-administered medications for [...] normal. Extremities: No edema Visit Vitals BP 122/71 (BP Location: Right arm, Patient Position: Sitting, BP Cuff Size: Adult) Pulse 66 Ht 1.6 m (5' 3 ) Wt 70.5 kg (155 lb 6.8 oz) SpO2 95% BMI 27.53 kg/m?? Imaging No echocardiogram results found for the past 12 months Labs Lab Results Component Value Date HGB 10.8 (L) 02/21/2023 HCT 33.3 (L) 02/21/2023 PLT 165 02/21/2023 ALT 34 02/21/2023 AST 41 (H) 02/21/2023 NA 140 02/21/2023 K 4.4 02/21/2023 CREATININE 1.03 02/21/2023 BUN 21 02/21/2023 CO2 26 02/21/2023 BNP 1,039 09/13/2022 Assessment and Plan Cardiac [...] hours was 1.31. personally reviewed by Dr. Roman, presumed positive for cardiac amyloidosis. -AL amyloidosis was ruled out -Ziopatch 08/2022: no arrhythmias noted, although blunted heart rate response. Discussed with EP andno intervention required at this time. -Genetic testing negative -Did not tolerate doxycycline d/t diarrhea, ursodiol d/t elevated LFTs -Discussed discontinuation of diltiazem as it is contraindicated in amyloidosis (has been shown to bind to amyloid fibrils thus increasing the risk of worsening heart failure, profound hypotension, and syncope). Patient has tried stopping diltiazem in the past and has not tolerated. Discussed risksvs benefits and she prefers to stay on it at this time. -Discontinuation of lopressor did not improve fatigue, so was restarted -Discussed Vyndamax - patient would like to restart and monitor labs and symptoms. Will repeat a CMP in 1 month and subsequently closely monitor LFTs if she tolerates. -She will hold off on re-starting green tea for now. -Lab slip given to patient to complete locally. ASHD -s/p CABG 2008 -[facility] 05/2022: Occlusion of all 3 vein grafts, patent RIVERA to LAD, ANGELICA to proximal circ -following with local cardiology -continue ASA, statin -plavix discontinued d/t bruising Hypertension -stable -continue to monitor Iron deficiency anemia -iron supplements per PCP A total time of 40 minutes was spent addressing the current illness, reviewing records (prior imaging, lab work, etc), and formulating a plan. The patient is agreeable to the plan and all pertinent questions were answered. Follow up in 3 months or sooner as needed. Kacy Delaney APRN 07/04/23 documented in this encounter Plan of Treatment Upcoming Encounters Date Type Department Care Team (Late st Contact Info) Description 01/30/2024 4:00 PM EST Office Visit [facility] [place] [address] [facility], [address] [place] [address] Kacy Delaney APRN [address] [place] [address] 02/21/2024 3:15 PM EST Appointment [facility] [address] [place] [address] 02/27/2024 11:00 AM EST Ancillary Procedure [facility] Medicine Specialties [address] [place] [address] 02/27/2024 11:40 AM EST Office Visit [facility] [address] [place] [address] Rebecca Zhou, GUEST ROOM INSPECTOR, DNP [address] [place] [address] Scheduled Orders Name Type Priority Associated Diagnoses Orde r Schedule Comprehensive metabolic panel Lab Routine Wild-type transthyretin-related (ATTR) amyloidosis (CMS/HCC) Expected: 07/04/2023 (Approximate), Expires: 01/03/2025 documented as of this encounter Visit Diagnoses Diagnosis Wild-type transthyretin-related (ATTR) amyloidosis (CMS/HCC)- Primary documented in this encounter Additional Health Concerns Assessment Noted Time A fall risk assessment has been complete d for the patient 07/04/2023 2:09 PM EDT A Body Mass Index follow-up plan has been documented for the patient 07/04/2023 2:46 PM EDT documented as of this encounter Care Teams Assistant Teacher Relationship Specialty Start Date End Date Renetta Lopez APRN [address] [place] [address] PCP - General 09/13/22 documented as of this encounter
--- OUTSIDE RECORDS SUMMARY | 2024-01-26 15:07 | XMS_ITS | Encounter Summary ---
Author Organization Healthcare Address [address] [place] [address] Care Team Providers Care Poising Inspector Name Role Phone Renetta Lopez COMMUNICATIONS TECH Primary Care Provider [phone] Encounter Details Date Type Department Care Team (Latest Contact Info) Description 07/04/2023 Travel Social History Tobacco Use Types Packs/Day [...] Description 01/30/2024 4:00 PM EST Office Visit [facility] [place] [address] [facility], [address] [place] [address] Kacy Delaney, COMMUNICATIONS TECH [address] [place] [address] 02/21/2024 3:15 PM EST Appointment [facility] [address] [place] [address] 02/27/2024 11:00 AM EST Ancillary Procedure [facility] [address] [place] [address] 02/27/2024 11:40 AM EST Office Visit [facility] [address] [place] [address] Rebecca Zhou APRN, DNP [address] [place] [address] documented as of this encounter Visit Diagnoses Not on filedocumented in this encounter Additional Health Concerns Assessment Noted Time A fall risk assessment has been complete d for the patient 07/04/2023 2:09 PM EDT A Body Mass Index follow-up plan has been documented for the patient 07/04/2023 2:46 PM EDT documented as of this encounter Care Teams Poising Inspector Relationship Specialty Start Date End Date Renetta Lopez APRN [address] [place] [address] PCP - General 09/13/22 documented as of this encounter
--- OUTSIDE RECORDS SUMMARY | 2024-01-26 15:08 | XMS_ITS | Encounter Summary ---
Author Organization [facility] Address [address] [place] [address] Care Team Providers Care Administrative Project Coordinator Name Role Phone John Renetta Mohamud SOLAR FIELD INSTALLATION CREW MEMBER Primary Care Provider [phone] Encounter Details Date Type Department Care Team (Latest Contact Info) Description 09/13/2022 Travel Social History Tobacco Use Types Packs/Day Years Used Date Smoking Tobacco: Never Smokeless Tobacco: Never Alcohol Use Standard Drinks/Week Comments Never 0 (1 standard drink = 0.6 oz pur e alcohol) Comments Unknown Sex and Gender Information Value Date Recorded Sex Assigned at Not on file Legal Sex Female 6:00 PM EDT Gender Identity Not on file Sexual Orientation Not on file documented as of this encounter Plan of Treatment Upcoming Encounters Date Type Department Care Team (Late st Contact Info) Description 01/30/2024 4:00 PM EST Office Visit [facility] [place] [address] [facility], [address] [place] [address] Kacy Delaney, SOLAR FIELD INSTALLATION CREW MEMBER [address] [place] [address] 02/21/2024 3:15 PM EST Appointment [facility] [address] [place] [address] 02/27/2024 11:00 AM EST Ancillary Procedure [facility] [address] [place] [address] 02/27/2024 11:40 AM EST Office Visit [facility] [address] [place] [address] Rebecca Zhou APRN, DNP [address] [place] [address] documented as of this encounter Visit Diagnoses Not on filedocumented in this encounter Additional Health Concerns Assessment Noted Time A fall risk assessment has been complete d for the patient 09/13/2022 1:09 PM EDT A Body Mass Index follow-up plan has been documented for the patient 09/13/2022 3:02 PM EDT documented as of this encounter Care Teams Administrative Project Coordinator Relationship Specialty Start Date End Date Renetta Lopez APRN [address] [place] [address] PCP - General 09/13/22 documented as of this encounter
--- OUTSIDE RECORDS SUMMARY | 2024-01-26 15:08 | XMS_ITS | Encounter Summary ---
Author Organization [facility] Address [address] [place] [address] Care Team Providers Care Baseball Club Manager Name Role Phone Renetta Lopez APRN Primary Care Provider [phone] Reason for Referral * Cardiac Stress Testing (Routine) - Closed Specialty Diagnoses / Procedures Referred By Dalton haynes Referred To Contact Cardiology Diagnoses Chronic diastolic (congestive) heart failure (CMS/HCC) Palpitations Procedures Adult Patch Monitor - 14 Day Eric Roman MD [address] [place] [address] Phone: tel: fax: Referral ID Status Reason Start Date Expiration Date Visits Re quested Visits Authorized [id number] Closed 09/13/2022 03/14/2024 1 1 * Genetic Testing (Routine) - Closed Specialty Diagnoses / Procedures Referred By Contdanna t Referred To Contact Lab Diagnoses Cardiac amyloidosis (CMS/HCC) Procedures invitae -Alnylam ACT hATTR Amyloidosis program ; Yes (invitae -Alnylam ACT hATTR Amyloidosis program ); Yes (invitae -Alnylam ACT hATTR Amyloidosis program ); Yes (invitae -Alnylam ACT hATTR Amyloidosis program ); Immediate - Miscellaneous Test invitae -Alnylam ACT hATTR Amyloidosis program ; Yes (invitae -Alnylam ACT hATTR Amyloidosis program ); Yes (invitae -Alnylam ACT hATTR Amyloidosis program ); Yes (invitae -Alnylam ACT hATTR Amyloidosis program ); Immediate - Miscellaneous Test Eric Roman MD [address] [place] [address] Phone: tel: fax: Referral ID Status Reason Start Date Expiration Date Visits Re quested Visits Authorized [id number] Closed 09/13/2022 03/14/2024 1 1 Reason for Visit * Consultation (Routine) - Closed Specialty Diagnoses / Procedures Referred By Contac t Referred To Contact Cardiology Diagnoses Cardiac amyloidosis (CMS/HCC) Henrik Mcallister MD [address] [place] [address] Phone: tel: fax: Referral ID Status Reason Start Date Expiration Date V isits Requested Visits Authorized [id number] Closed Specialty Services Required 08/16/2022 02/15/2024 1 1 Encounter Details Date Type Department Care Team (Late st Contact Info) Description 09/13/2022 1:40 PM EDT Consult [facility] [address], [address] [place] [address] Eric Roman MD [address] [place] [address] Palpitations (Primary Dx); Cardiac amyloidosis (CMS/HCC); Chronic diastolic (congestive) heart failure (CMS/HCC) Social History Tobacco Use Types Packs/Day Years [...] Sign Reading Time Taken Comments Blood Pressure 150/75 09/13/2022 1:02 PM EDT Pulse 60 09/13/2022 1:02 PM EDT Temperature - - Respiratory Rate - - Oxygen Saturation 95% 09/13/2022 1:02 PM EDT Inhaled Oxygen Concentration - - Weight 68.9 kg (151 lb 14.4 oz) 09/13/2022 1:02 PM EDT Height 160 cm (5' 3 ) 09/13/2022 1:02 PM EDT Body Mass Index 26.91 09/13/2022 1:02 PM EDT documented in this encounter Miscellaneous Notes * Patient Instructions - Magui Alvarado RN - 09/13/2022 1:40 PM EDT Please call Magui Alvarado RN at [phone] with questions or concerns related to your medications. Stop Diltiazem Start Vyndamax Start Green Tea Start Doxycycline * Progress Notes - Kacy Delaney APRN - 09/13/2022 1:40 PM EDT Images from the original note were not included. Advanced Heart Failure Consult Note Chen Merritt is a 82 y.o. female who presents for consultation at the request of Dr. Mcallister for evaluation of cardiac amyloidosis. She has a PMHx significant for ASHD s/p CABG 2008 and subsequent ANGELICA to proximal circ 05/2022, paroxysmal Afib, HTN, HLD, spinal stenosis, arthritis, and carpal tunnel surgery. She also had a low voltage EKG. Her life manager was suspicious for cardiac amyloidosis so lab work and PYP scan was ordered. This was completed 08/13/2022 and was consistent with a Intermediate risk of significant cardiac amyloidosis. H:L ratio at 3 hours was 1.31. FLC ratio 1.44. Most recent echo 05/2022 showed moderate LVH, EF ~55%, grade 2 diastolic dysfunction, abnormal strain pattern. She had back surgery 05/2022 and unfortunately had an FL the following day with subsequent placementof ANGELICA to the left circ. She spent 18 days in the hospital at this time and was discharged to [facility] for rehab. She then did home PT and is now able to complete ADLs without difficulty. She uses a walker for assistance. Following this recent surgery she had issues with orthostasis. Losartan was discontinued and midodrine was started. Her BPs have now stabilized and she is off midodrine. BPs running 130s/60-70s at home. Today patient reports feeling well overall. Her main complaint today is fatiuge. This has been an ongoing issue for many years as she has trouble getting to sleep and staying asleep. Has intermittentSOB associated with sinus congestion. Chronic LE edema is at baseline. She wears compression stockings most days. Denies chest pain, palpitations, lightheadedness, dizziness, syncope. She was diagnosed with peripheral neuropathy more than 20 years ago and takes Lyrica for this. Family history: brother with CAD Social history: nonsmoker, no ETOH/illicit drug use Review of symptoms 14 Point ROS reviewed [...] Take 1 capsule (2,000 Units) by mouth. coenzyme Q-10 200 MG tablet Take 1 tablet (200 mg) by mouth 1 (one) time each day. dilTIAZem XR (Dilacor XR) 180 MG 24 hr capsule Take 1 capsule (180 mg) by mouth 1 (one) time each day. folic acid (Folvite) 1 MG tablet Take by mouth 1 (one) time each day. methotrexate 2.5 MG tablet Take by mouth 1 (one) time per week. Follow directions carefully, and ask to explain any part you do not understand. Take exactly as directed. metoprolol tartrate (Lopressor) 50 MG tablet Take 1 tablet (50 mg) by mouth 2 (two) times a day. pantoprazole (Protonix) 40 MG EC tablet Take 1 tablet (40 mg) by mouth 1 (one) time each day beforebreakfast. Do not crush, chew, or split. pregabalin (Lyrica) 150 MG capsule Take 1 capsule (150 mg) by mouth 2 (two) times a day. clopidogrel (Plavix) 75 MG tablet Take 1 tablet (75 mg) by mouth 1 (one) time each day. No current facility-administered medications for this visit. Physical Exam Constitutional: Appearance: Normal appearance. HENT: Head: Normocephalic and atraumatic. No JVD. Cardiovascular: Rate and Rhythm: Normal rate and regular rhythm. Heart sounds: Normal heart sounds. Pulmonary: Effort: Pulmonary effort is normal. Breath sounds: Normal breath sounds. Abdominal: Palpations: Abdomen is soft. Skin: General: Skin is warm and dry. Neurological: General: No focal deficit present. Mental Status: Alert and oriented to person, place, and time. Psychiatric: Mood and Affect: Mood normal. Behavior: Behavior normal. Extremities: No edema Visit Vitals BP (!) 150/75 Pulse 60 Ht 1.6 m (5' 3 ) Wt 68.9 kg (151 lb 14.4 oz) SpO2 95% BMI 26.91 kg/m?? Imaging PYP scan 07/2022: consistent with a Intermediate risk of significant cardiac amyloidosis. H:L ratio at 3 hours was 1.31. Echo 05/2022: moderate LVH, EF ~55%, grade 2 diastolic dysfunction, abnormal strain pattern. [facility] 05/2022: Occlusion of all 3 vein grafts, patent RIVERA to LAD, ANGELICA to proximal circ Assessment and Plan Cardiac amyloidosis / HFpEF -NYHA class III -appears compensated on exam -Constellation of symptoms including spinal stenosis, LVH, bilateral carpal tunnel syndrome, low voltage EKG, peripheral neuropathy, Afib, diastolic dysfunction, and abnormal strain pattern on echo are suspicious for cardiac amyloidosis -PYP scan 07/2022: consistent with a Intermediate risk of significant cardiac amyloidosis. H:L ratioat 3 hours was 1.31. personally reviewed by Dr. Roman, presumed positive for cardiac amyloidosis. -Will start Vyndamax, green tea, and doxycycline -Low suspicion for AL amyloidosis, but will further evaluate with lab work for definitive diagnosis. -Ziopatch placed for evaluation of arrhythmias -Will also obtain genetic testing, which was discussed with the patient and she is agreeable to proceed. -Discontinue diltiazem as it is contraindicated in amyloidosis (has been shown to bind to amyloid fibrils thus increasing the risk of worsening heart failure, profound hypotension, and syncope) ASHD -s/p CABG 2008 -[facility] 05/2022: Occlusion of all 3 vein grafts, patent RIVERA to LAD, ANGELICA to proximal circ -following with local cardiology -continue ASA, statin, plavix Hypertension -stable -no longer requiring midodrine -continue to monitor A total time of 80 minutes was spent by MD and COLTON addressing the current illness, reviewing records (prior imaging, lab work, etc), and formulating a plan. The patient is agreeable to the plan and all pertinent questions were answered. Patient was seen and assessed in collaboration with Dr. Roman who agrees with the above plan of care. Follow up in 2 months or sooner as needed. Kacy Delaney APRN 09/13/22 documented in this encounter Plan of Treatment Upcoming Encounters Date Type Department Care Team (Late st Contact Info) Description 01/30/2024 4:00 PM EST Office Visit [facility] [address], [address] [place] [phone] Kacy Dealney APRN [address] [place] [address] 02/21/2024 3:15 PM EST Appointment [facility] [address] [place] [address] 02/27/2024 11:00 AM EST Ancillary Procedure [facility] [address] [place] [address] 02/27/2024 11:40 AM EST Office Visit [facility] [address] [place] [address] Rebecca Zhou, COASTAL AND ESTUARY SPECIALIST, DNP [address] [place] [address] documented as of this encounter Procedures Procedure Name Priority Date/Time Associated Diagnosis Comments TOTAL PROTEIN, SERUM Routine 09/13/2022 2:50 PM EDT Cardiac amyloidosis (CMS/HCC) PROTEIN ELECTROPHORESIS, SERUM Routine 09/13/2022 2:50 PM EDT Cardiac amyloidosis (CMS/HCC) PROTEIN ELECTROPHORESIS, PATHOLOGIST INTERPRETATION Routine 09/13/2022 2:50 PM EDT Cardiac amyloidosis (CMS/HCC) N-TERMINAL PROBNP, PLASMA Routine 09/13/2022 2:50 PM EDT Cardiac amyloidosis (CMS/HCC) Chronic diastolic (congestive) heart failure (CMS/HCC) PROTEIN ELECTROPHORESIS, SERUM Routine 09/13/2022 2:50 PM EDT Cardiac amyloidosis (CMS/HCC) documented in this encounter Results * Adult Patch Monitor - 14 Day (09/13/2022 3:27 PM EDT) BSA 1.75 m2 BIOTELEMETRY Anatomical Region Laterality Modality Other Narrative 10/07/2022 5:50 PM EDT Preliminary Findings: Patient monitored for 3d 19h starting on 09/13/2022 03:12 pm. Primary rhythm was Sinus Rhythm. Average heart rate was 71 bpm, Minimum heart rate was 58 bpm on Day :34:16 am, Max heart rate was 97 bpm on Day :07:38 am Atrial Fibrillation or Flutter: [place] was 0 %, longest event 0 ms on --, fastest rate -- bpm on --. SVE(s): [place] was 0.26 %, max count per 24 hours 267 SVT (AT, RT): 25 events, longest event 13 beats on Day :18:55 pm, fastest event 155 bpm on Day :09:51 am Pause: 0 events, longest pause 0 ms on -- AV Block: 0 %, most severe block demonstrated -- PVC(s): [place] was 0.09 %, max count per 24 hours 91, 3 disparate morphologies Ventricular Tachycardia: 0 events, longest event 0 s at --, fastest rate -- bpm at -- Patient recorded 0 events during the monitoring period Physician Comments: Agree with findings Blunted Heart rate response Eric Roman MD [facility] CARDIAC SERVICES PROCEDUR ES Final Result * Protein Electrophoresis, Urine - Random (09/13/2022 3:04 PM EDT) Albumin Electrophoresis, Urine 5 mg/dL 09/19/2022 6:27 AM EDT [facility] Alpha 1 Globulin Electrophoresis, Urine 0 mg/dL 09/19/2022 6:27 AM EDT [facility] Alpha 2 Globulin Electrophoresis, Urine 0 mg/dL 09/19/2022 6:27 AM EDT [facility] Beta 1 Globulin Electrophoresis, Urine 0 mg/dL 09/19/2022 6:27 AM EDT [facility] Beta 2 Globulin Electrophoresis, Urine 0 mg/dL 09/19/2022 6:27 AM EDT [facility] Gamma Globulin Electrophoresis, Urine 0 mg/dL 09/19/2022 6:27 AM EDT [facility] Interpretation, Urine Protein Electrophoresis Pathology report to follow. 09/19/2022 6:27 AM EDT [facility] Urine Urine specimen obtained by clean catch procedure / Unknown Non-blood Collection / Unknown 09/13/2022 3:04 PM EDT 09/13/2022 3:04 PM EDT Eric Roman MD LAB URINE ORDERABLES Final R esult [facility] [address] [place] [address] * Protein electrophoresis serum, pathologist interpretation (09/13/2022 2:50 PM EDT) Clinical Diagnosis, SPEP Cardiac amyloidosis 09/15/2022 4:17 PM EDT [facility] Interpretation , SPEP The total protein and serum protein electrophoretic fractions are within normal limits. 09/15/2022 4:17 PM EDT [facility] Pathologist Signature, SPEP Reviewed by: Gil Cam MD 09/15/2022 4:17 PM EDT [facility] CP ASR DISCLAIMER No 09/15/2022 4:17 PM EDT [facility] Blood Venous blood specimen / Unknown Venipuncture / Unknown 09/13/2022 2:50 PM EDT 09/13/2022 2:51 PM EDT Eric Roman MD LAB PATHOLOGY ORDERABLES Fin al Result Performing Organization Address City/[facility]/ZIP Co de Phone Number [facility] [address] [place] [address] * Total Protein, Serum (09/13/2022 2:50 PM EDT) Total Protein 6.7 6.2 - 7.7 g/dL 09/13/2022 6:18 PM EDT [facility] Blood Venous blood specimen / Unknown Venipuncture / Unknown 09/13/2022 2:50 PM EDT 09/13/2022 2:51 PM EDT Eric Roman MD LAB BLOOD ORDERABLES Final R esult Performing Organization Address City/[facility]/ZIP Co de Phone Number [facility] [address] [place] [address] * Protein Electrophoresis, Serum (09/13/2022 2:50 PM EDT) Albumin Electrophoresis, Serum 4.1 3.6 - 4.7 g/dL 09/14/2022 2:35 AM EDT [facility] Alpha 1 Globulin Electrophoresis, Serum 0.3 0.2 - 0.4 g/dL 09/14/2022 2:35 AM EDT [facility] Alpha 2 Globulin Electrophoresis, Serum 0.8 0.5 - 0.9 g/dL 09/14/2022 2:35 AM EDT [facility] Beta 1 Globulin Electrophoresis, Serum 0.4 0.3 - 0.5 g/dL 09/14/2022 2:35 AM EDT [facility] Beta 2 Globulin Electrophoresis, Serum 0.4 0.2 - 0.5 g/dL 09/14/2022 2:35 AM EDT [facility] Gamma Globulin Electrophoresis, Serum 0.7 0.6 - 1.5 g/dL 09/14/2022 2:35 AM EDT [facility] Interpretation, Serum Protein Electrophoresis Pathology report to follow. 09/14/2022 2:35 AM EDT [facility] Blood Venous blood specimen / Unknown Venipuncture / Unknown 09/13/2022 2:50 PM EDT 09/13/2022 2:51 PM EDT Result Elenita Roman MD LAB BLOOD ORDERABLES Final R esult Performing Organization Address City/[facility]/ZIP Co de Phone Number [facility] [address] [place] [address] * (ABNORMAL) Troponin T, High Sensitivity, Cardiac Risk Assessment (09/13/2022 2:50 PM EDT) Troponin T, High Sensitivity, 0 Hour 17(H) <14 ng/L 09/13/2022 5:55 PM EDT [facility] Blood Venous blood specimen / Unknown Venipuncture / Unknown 09/13/2022 2:50 PM EDT 09/13/2022 2:51 PM EDT Result Elenita Roman MD LAB BLOOD ORDERABLES Final R esult Performing Organization Address City/[facility]/ZIP Co de Phone Number [facility] [address] [place] [address] * N-Terminal Probnp, Plasma (09/13/2022 2:50 PM EDT) N-Terminal, PROBNP, Plasma 1,039 0 - 1,799 pg/mL 09/13/2022 5:55 PM EDT [facility] Blood Venous blood specimen / Unknown Venipuncture / Unknown 09/13/2022 2:50 PM EDT 09/13/2022 2:51 PM EDT us Eric Roman MD LAB BLOOD ORDERABLES Final R esult Performing Organization Address City/[facility] Co de Phone Number [facility] [address] [place] [address] * invitae -Alnylam ACT hATTR Amyloidosis program ; Yes (invitae -Alnylam ACT hATTR Amyloidosis program ); Yes (invitae -Alnylam ACT hATTR Amyloidosis program ); Yes (invitae -Alnylam ACT hATTR Amyloidosis program ); Immediate - Miscellaneous Test (09/13/2022 2:50 PM EDT) Test name invitae -Alnylam ACT hATTR Amyloidosis program 09/24/2022 2:56 PM EDT [facility] Test Result SEE SCANNED RESULT 09/24/2022 2:56 PM EDT [facility] See Scanned Result 09/24/2022 2:56 PM EDT [facility] Blood Venipuncture / Unknown 09/13/2022 2:50 PM EDT 09/13/2022 2:51 PM EDT Eric Roman MD LAB REF LAB BLOOD AND FLUID ORD Final Result Performing Organization Address [facility] Co de Phone Number [facility] [address] [place] [address] documented in this encounter Visit Diagnoses Diagnosis Palpitations- Primary Cardiac amyloidosis (CMS/HCC) Other amyloidosis Chronic diastolic (congestive) heart failure (CMS/HCC) Chronic diastolic (congestive) heart failure (CMS/HCC) Palpitations documented in this encounter Additional Health Concerns Assessment Noted Time A fall risk assessment has been complete d for the patient 09/13/2022 1:09 PM EDT A Body Mass Index follow-up plan has been documented for the patient 09/13/2022 3:02 PM EDT documented as of this encounter Care Teams Baseball Club Manager Relationship Specialty Start Date End Date Renetta Lopez APRN [address] [place] [address] PCP - General 09/13/22 documented as of this encounter
--- OUTSIDE RECORDS SUMMARY | 2024-01-26 15:08 | XMS_ITS | Encounter Summary ---
Author Organization [facility] Address [address] [place] [address] Care Team Providers Care Rv Repair Technician Name Role Phone Renetta Lopez APRN Primary Care Provider [phone] Encounter Details Date Type Department Care Team (Late Contact Info) Description 09/13/2022 Telephone [facility] [address] [place] [phone] Carla Lay, PharmD [facility] [address] [place] [address] Social History Tobacco Use Types Packs/Day Years [...] encounter Miscellaneous Notes * Telephone Encounter - Carla Lay, PharmD - 09/21/2022 11:28 AM EDT Patient was approved through [employer]. documented in this encounter Plan of Treatment Upcoming Encounters Date Type Department Care Team (Late st Contact Info) Description 01/30/2024 4:00 PM EST Office Visit [facility] [place] [address], [address] [place] [address] Kacy Delaney, OCCUPATIONAL THERAPIST REHAB MANAGER [address] [place] [address] 02/21/2024 3:15 PM EST Appointment [facility] [address] [place] [address] 02/27/2024 11:00 AM EST Ancillary Procedure [facility] [address] [place] [address] 02/27/2024 11:40 AM EST Office Visit [facility] [address] [place] [address] Rebecca Zhou, EARNESTINE, DNP [address] [place] [address] documented as of this encounter Visit Diagnoses Not on filedocumented in this encounter Additional Health Concerns Assessment Noted Time A fall risk assessment has been complete d for the patient 09/13/2022 1:09 PM EDT A Body Mass Index follow-up plan has been documented for the patient 09/13/2022 3:02 PM EDT documented as of this encounter Care Teams Rv Repair Technician Relationship Specialty Start Date End Date Renetta Lopez APRN [address] [place] [address] PCP - General 09/13/22 documented as of this encounter
--- OUTSIDE RECORDS SUMMARY | 2024-01-26 15:08 | XMS_ITS | Encounter Summary ---
Author Organization [facility] Address [address] [id number] Care Team Providers Care Inductor Tester Name Role Phone Renetta Lopez SCREEN PRINTING CLOTH SPREADER Primary Care Provider [phone] Encounter Details Date Type Department Care Team ([facility] st Contact Info) Description 03/26/2023 11:00 AM EST Office Visit [facility] [place] [address] [facility], [address] [place] [address] Kacy Delaney, SCREEN PRINTING CLOTH SPREADER [address] [place] [address] ASHD (arteriosclerotic heart disease) (Primary Dx); Wild-type transthyretin-related (ATTR) amyloidosis (CMS/HCC); Essential hypertension Social History Tobacco Use Types Packs/Day Years Used Date Smoking Tobacco: Never Smokeless Tobacco: Never Alcohol Use Standard Drinks/Week Comments Never 0 (1 standard drink = 0.6 oz pur e alcohol) Comments No Sex and Gender Information Value Date Recorded Sex Assigned at Not on file Legal Sex Female 6:00 PM EDT Gender Identity Not on file Sexual Orientation Not on file documented as of this encounter Miscellaneous Notes * Progress Notes - Kacy Delaney, SCREEN PRINTING CLOTH SPREADER - 03/26/2023 11:00 AM EST Images from the original note were not included. Advanced Heart Failure Follow Up Patient Verification Patient identity has been confirmed using name and date of ? Yes Authorizations and Agreements/Telemedicine Consent sent and consent confirmed? Yes Patient Location: Patient's Home Patient confirms they are physically located in [place]? Yes Provider Location: Provider's Home Audio and video or audio only? Audio and video Chen Merritt is a 82 y.o. female who presents for medication optimization. She has a PMHx significantfor ASHD s/p CABG 2008 and subsequent ANGELICA to proximal circ 05/2022, paroxysmal Afib, HTN, HLD, spinal stenosis, arthritis, and carpal tunnel surgery. She also had a low voltage EKG. Her bench chemist was suspicious for cardiac amyloidosis so lab [...] Genetic testing was completed and is negative. Entresto was started at the last OV for better BP control, but the patient was worried about possible dizziness and passing out as she has had issues with this in the past. Ursodiol has also been held as her LFTs were elevated and she thought she had been feeling worse since starting this. Patient reports today that she has not been feeling well for the last 3-4 months. Main complaint is fatigue.She was recently diagnosed with iron deficiency anemia. Her PCP prescribed iron tablets which she just picked up and plans to start. BPs are fluctuating 110s-160s/70-90s, typically less than 140/90. She notices they are higher when she is upset or has done something physical. Her appetite is low, th inks her taste has been off since starting Vyndamax. She has been using protein shakes to supplement meals. Review of symptoms 14 Point ROS reviewed [...] Take 1 capsule (2,000 Units) by mouth. clopidogrel (Plavix) 75 MG tablet Take 1 tablet (75 mg) by mouth 1 (one) time each day. coenzyme Q-10 200 MG tablet Take 1 tablet (200 mg) by mouth 1 (one) time each day. denosumab (Prolia) 60 MG/ML injection Inject [...] mg) by mouth every 12 (twelve) hours. fluticasone (Flonase Allergy Relief) 50 MCG/ACT nasal spray Administer 1-2 sprays into affected nostril(s) 1 (one) time each day. folic acid (Folvite) 1 MG tablet Take by mouth 1 (one) time each day. Green Tea 250 MG capsule Take 500 mg by mouth 2 (two) times a day. 120 capsule 11 ketorolac (Acular) 0.5 % ophthalmic solution STARTING 3 DAYS BEFORE SURGERY, USE 1 DROP IN THE OPERATIVE EYE 4 TIMES A DAY FOR 10 DAYS, THEN DECREASE TO TWICE A DAY FOR 14 DAYS methotrexate 2.5 MG tablet Take by mouth [...] by mouth 2 (two) times a day. sacubitril-valsartan (Entresto) 24-26 MG tablet Take 1 tablet by mouth 2 (two) times a day. 60 tablet 11 Tafamidis (Vyndamax) 61 MG capsule Take 1 capsule (61 mg) by mouth every 30 (thirty) days. 30 capsule 11 ursodiol (Elisa) 250 MG tablet Take 1 tablet (250 mg) by mouth 3 (three) times a day. 90 tablet 11 No current facility-administered medications for this visit. Physical Exam Constitutional: Appearance: Normal appearance. Neurological: Mental Status: Alert and oriented to person, place, and time. Psychiatric: Mood and Affect: Mood normal. Behavior: Behavior normal. Imaging PYP scan 07/2022: consistent with a Intermediate risk of significant cardiac amyloidosis. H:L ratio at 3 hours was 1.31. Echo 05/2022: moderate LVH, EF ~55%, grade 2 diastolic dysfunction, abnormal strain pattern. LHC 05/2022: Occlusion of all 3 vein grafts, patent RIVERA to LAD, ANGELICA to proximal circ Labs Lab Results Component Value Date HGB [...] required at this time. -Genetic testing negative -Continue Vyndamax, green tea -Did not tolerate doxycycline d/t diarrhea, ursodiol [...] to stay on it at this time. -BBLs are often not well tolerated in patients with cardiac amyloidosis. Will discontinue lopressor. She will decrease to 25 mg BID for 1 week and then stop. She will call us if she has any issues with this ASHD -s/p CABG 2009 -[facility] 05/2022: Occlusion of all 3 vein grafts, patent RIVERA to LAD, ANGELICA to proximal circ -following with local cardiology -continue ASA, statin, plavix Hypertension -stable -continue to monitor Iron deficiency anemia -iron supplements per PCP A total time of 40 minutes was spent addressing the current illness, reviewing records (prior imaging, lab work, etc), and formulating a plan. The patient is agreeable to the plan and all pertinent questions were answered. Follow up as scheduled. Kacy Delaney APRN 03/26/23 documented in this encounter Plan of Treatment Upcoming Encounters Date Type Department Care Team (Late st Contact Info) Description 01/30/2024 4:00 PM EST Office Visit [facility] [place] [facility] [address] [facility], [address] [place] [phone] Kacy Delaney APRN [address] [place] [address] 02/21/2024 3:15 PM EST Appointment [facility] [address] [place] [address] 02/27/2024 11:00 AM EST Ancillary Procedure [facility] [address], [address] [place] [address] 02/27/2024 11:40 AM EST Office Visit [facility] [address], [address] [place] [address] Rebecca Zhou APRN, DNP [address] [place] [phone] documented as of this encounter Visit Diagnoses Diagnosis ASHD (arteriosclerotic heart disease)- Primary Coronary atherosclerosis of unspecified type of vessel, lummi or graft Wild-type transthyretin-related (ATTR) amyloidosis (CMS/HCC) Essential hypertension Unspecified essential hypertension documented in this encounter Additional Health Concerns Assessment Noted Time A fall risk assessment has been complete d for the patient 09/13/2022 1:09 PM EDT A Body Mass Index follow-up plan has been documented for the patient 03/26/2023 11:26 AM EST documented as of this encounter Care Teams Inductor Tester Relationship Specialty Start Date End Date Renetta Lopez APRN [address] [place] [address] PCP - General 09/13/22 documented as of this encounter
--- OUTSIDE RECORDS SUMMARY | 2024-01-26 15:08 | XMS_ITS | Encounter Summary ---
Author Organization [facility] Address [address] [place] [address] Care Team Providers Care Slip Cover Estimator Name Role Phone Renetta Lopez TIRE STRIPPER Primary Care Provider [phone] Encounter Details Date Type Department Care Team (Late st Contact Info) Description 11/15/2022 2:40 PM EDT Office Visit [facility] [place] [address] [facility], [address] [place] [address] Kacy Delaney, TIRE STRIPPER [address] [place] [address] Wild-type transthyretin-related (ATTR) amyloidosis (CMS/HCC) [...] Sign Reading Time Taken Comments Blood Pressure 155/71 11/15/2022 2:40 PM EDT Pulse 69 11/15/2022 2:30 PM EDT Temperature 36.4 ??C (97.6 ??F) 11/15/2022 2:30 PM ED T Respiratory Rate 18 11/15/2022 2:30 PM EDT Oxygen Saturation 96% 11/15/2022 2:30 PM EDT Inhaled Oxygen Concentration - - Weight 70 kg (154 lb 5.2 oz) 11/15/2022 2:30 PM EDT Height 160 cm (5' 3 ) 11/15/2022 2:30 PM EDT Body Mass Index 27.34 11/15/2022 2:30 PM EDT documented in this encounter Miscellaneous Notes * Progress Notes - AlanaKacy hughesEARNESTINE - 11/15/2022 2:40 PM EDT Images from the original note were not included. Cardiac Amyloidosis Follow Up Chen Merritt is a 82 y.o. female who presents for follow up of cardiac amyloidosis. She has a PMHx significant for ASHD s/p CABG 2008 and subsequent ANGELICA to proximal circ 05/2022, paroxysmal Afib, HTN, HLD, spinal stenosis, arthritis, and carpal tunnel surgery. She also had a low voltage EKG. Her cardio logist was suspicious for cardiac amyloidosis so lab work and PYP scan was ordered. This was completed 08/13/2022 and was consistent with a Intermediate risk of significant cardiac amyloidosis. H:L ratio at 3 hours was 1.31. FLC ratio 1.44. Most recent echo 05/2022 showed moderate LVH, EF ~55%, grade2 diastolic dysfunction, abnormal strain pattern. AL amyloidosis was ruled out with blood work. Genetic testing was completed and is negative. Today patient reports feeling well overall. No recent illnesses or hospitalizations. She tried to take doxycycline with had diarrhea and vomiting. Symptoms resolved when she stopped it. Had no issueswith Vyndamax or green tea. Denies chest pain, SOB, palpitations, lightheadedness, dizziness, syncope, and orthopnea. Chronic LE edema is at baseline. She is wearing compression stockings. She is able to complete ADLs without difficulty as long as she paces herself. BPs at home running 130s/70s. She has been compliant with medications. Review of symptoms 14 Point ROS reviewed [...] GRAMS TO AFFECTED AREA 3-4 TIMES DAILY doxycycline (Vibra-Tabs) 100 MG tablet Take 1 tablet (100 mg) by mouth 2 (two) times a day. Take with a full glass of water and do not lie down for at least 30 minutes after. 60 tablet 11 folic acid (Folvite) 1 MG tablet Take by mouth 1 (one) time each day. Green Tea 250 MG capsule Take 500 mg by mouth 2 (two) times a day. 120 capsule 11 methotrexate 2.5 MG tablet Take by mouth [...] by mouth 2 (two) times a day. Tafamidis (Vyndamax) 61 MG capsule Take 1 capsule (61 mg) by mouth every 30 (thirty) days. 30 capsule 11 dilTIAZem CD (Cardizem CD) 180 MG 24 hr capsule Take 1 capsule (180 mg) by mouth. docusate sodium (Colace) 100 MG capsule Take 1 capsule (100 mg) by mouth every 12 (twelve) hours. fluticasone (Flonase Allergy Relief) 50 MCG/ACT nasal spray Administer 1-2 sprays into affected nostril(s) 1 (one) time each day. ketorolac (Acular) 0.5 % ophthalmic solution STARTING 3 DAYS BEFORE SURGERY, USE 1 DROP IN THE OPERATIVE EYE 4 TIMES A DAY FOR 10 DAYS, THEN DECREASE TO TWICE A DAY FOR 14 DAYS No current facility-administered medications for this visit. [...] Affect: Mood normal. Behavior: Behavior normal. Extremities: 1+ BLE edema Visit Vitals BP (!) 156/69 (BP Location: Right arm, Patient Position: Sitting, BP Cuff Size: Adult) Pulse 69 Temp 36.4 ??C (97.6 ??F) (Oral) Ht 1.6 m (5' 3 ) Wt 70 kg (154 lb 5.2 oz) SpO2 96% BMI 27.34 kg/m?? Imaging PYP scan 07/2022: consistent with a Intermediate risk of significant cardiac amyloidosis. H:L ratio at 3 hours was 1.31. Echo 05/2022: moderate LVH, EF ~55%, grade 2 diastolic dysfunction, abnormal strain pattern. LHC 05/2022: Occlusion of all 3 vein grafts, patent RIVERA to LAD, ANGELICA to proximal circ Labs Lab Results Component Value Date BNP 1,039 09/13/2022 Assessment and Plan Cardiac [...] green tea -Did not tolerate doxycycline d/t diarrhea. -Discussed discontinuation of diltiazem as it is contraindicated in amyloidosis (has been shown to bind to amyloid fibrils thus increasing the risk of worsening heart failure, profound hypotension, and syncope). Patient has tried stopping diltiazem in the past and has not tolerated. Discussed risksvs benefits and she prefers to stay on it at this time. -Start ursodiol 250 mg TID ASHD -s/p CABG 2008 -[facility] 05/2022: Occlusion of all 3 vein grafts, patent RIVERA to LAD, ANGELICA to proximal circ -following with local cardiology -continue ASA, statin, plavix Hypertension -stable -no longer requiring midodrine -continue to monitor A total time of 40 minutes was spent addressing the current illness, reviewing records (prior imaging, lab work, etc), and formulating a plan. The patient is agreeable to the plan and all pertinent questions were answered. Follow up in 3 months or sooner as needed. Kacy Delaney APRN 11/15/22 documented in this encounter Plan of Treatment Upcoming Encounters Date Type Department Care Team (Late st Contact Info) Description 01/30/2024 4:00 PM EST Office Visit [facility] [place] [address] [facility], [address] [place] [address] Kacy Delaney APRN [address] [place] [address] 02/21/2024 3:15 PM EST Appointment [facility] [address] [place] [address] 02/27/2024 11:00 AM EST Ancillary Procedure [facility] [address], [address] [place] [address] 02/27/2024 11:40 AM EST Office Visit [facility] [address], [address] [place] [address] Rebecca Zhou APRN, DNP [address] [place] [address] documented as of this encounter Visit Diagnoses Diagnosis Wild-type transthyretin-related (ATTR) amyloidosis (CMS/HCC)- Primary documented in this encounter Additional Health Concerns Assessment Noted Time A fall risk assessment has been complete d for the patient 09/13/2022 1:09 PM EDT A Body Mass Index follow-up plan has been documented for the patient 11/15/2022 3:07 PM EDT documented as of this encounter Care Teams Slip Cover Estimator Relationship Specialty Start Date End Date Renetta Lopez APRN [address] [place] [address] PCP - General 09/13/22 documented as of this encounter
--- OUTSIDE RECORDS SUMMARY | 2024-01-26 15:08 | XMS_ITS | Encounter Summary ---
Author Organization [facility] Address [address] [place] [address] Care Team Providers Care Astronomy Department Chair Name Role Phone Renetta Lopez SUPERVISOR ELECTRONIC TESTING Primary Care Provider [phone] Encounter Details Date Type Department Care Team (Late st Contact Info) Description 07/03/2023 Telephone [facility] [place] [address] [facility] [place] [address] Kacy Delaney, SUPERVISOR ELECTRONIC TESTING [address] [place] [address] Social History Tobacco Use Types Packs/Day Years [...] * Telephone Encounter - Lashell Victoria - 07/03/2023 3:17 PM EDT Called and spoke with patient's daughter and she has confirmed the patient's appointment for 07/03. documented in this encounter Plan of Treatment Upcoming Encounters Date Type Department Care Team (Late st Contact Info) Description 01/30/2024 4:00 PM EST Office Visit [facility] [place] [address], [address] [place] [address] Kacy Delaney, SUPERVISOR ELECTRONIC TESTING [address] [place] [address] 02/21/2024 3:15 PM EST Appointment [facility] [address] [place] [address] 02/27/2024 11:00 AM EST Ancillary Procedure [facility] [address], [address] [place] [address] 02/27/2024 11:40 AM EST Office Visit [facility] [address], [address] [place] [address] Rebecca Zhou, EARNESTINE, DNP [address] [place] [address] documented as of this encounter Visit Diagnoses Not on filedocumented in this encounter Additional Health Concerns Assessment Noted Time A fall risk assessment has been complete d for the patient 09/13/2022 1:09 PM EDT A Body Mass Index follow-up plan has been documented for the patient 03/26/2023 11:26 AM EST documented as of this encounter Care Teams Astronomy Department Chair Relationship Specialty Start Date End Date Renetta Lopez, SUPERVISOR ELECTRONIC TESTING [address] [place] [address] PCP - General 09/13/22 documented as of this encounter
--- OUTSIDE RECORDS SUMMARY | 2024-01-26 15:08 | XMS_ITS | Encounter Summary ---
Author Organization [facility] Address [address] [place] [address] Care Team Providers Care Block Placer Name Role Phone Renetta Lopez MAINTENANCE REPAIRER Primary Care Provider [phone] Encounter Details Date Type Department Care Team (Late Contact Info) Description 11/14/2022 Telephone [facility] [place] [address] [facility] [place] [address] Kacy Delaney, MAINTENANCE REPAIRER [address] [place] [phone] Social History Tobacco Use Types Packs/Day Years [...] * Telephone Encounter - Lashell Victoria - 11/14/2022 2:25 PM EDT Called and spoke with patient's daughter and she has confirmed her mother's appointment for 11/15. documented in this encounter Plan of Treatment Upcoming Encounters Date Type Department Care Team (Late Contact Info) Description 01/30/2024 4:00 PM EST Office Visit [facility] [place] [address] [facility], [address] [place] [address] Kacy Delaney, MAINTENANCE REPAIRER [address] [place] [address] 02/21/2024 3:15 PM EST Appointment [facility] [address] [place] [address] 02/27/2024 11:00 AM EST Ancillary Procedure [facility] [address], [address] [place] [address] 02/27/2024 11:40 AM EST Office Visit [facility] [address], [address] [place] [address] Rebecca Zhou, MAINTENANCE REPAIRER, DNP [address] [place] [address] documented as of this encounter Visit Diagnoses Not on filedocumented in this encounter Additional Health Concerns Assessment Noted Time A fall risk assessment has been complete d for the patient 09/13/2022 1:09 PM EDT A Body Mass Index follow-up plan has been documented for the patient 09/13/2022 3:02 PM EDT documented as of this encounter Care Teams Block Placer Relationship Specialty Start Date End Date Renetta Lopez, MAINTENANCE REPAIRER [address] [place] [address] PCP - General 09/13/22 documented as of this encounter
--- OUTSIDE RECORDS SUMMARY | 2024-01-26 15:08 | XMS_ITS | Encounter Summary ---
Author Organization [facility] Address [address] [place] [address] Care Team Providers Care Spot Worker Name Role Phone Nazanin Lopeza Mohamud EDUCATION FINANCE PROCESSOR Primary Care Provider [phone] Encounter Details Date Type Department Care Team (Latest Contact Info) Description 02/21/2023 Travel Social History Tobacco Use Types Packs/Day [...] Description 01/30/2024 4:00 PM EST Office Visit [facility] [place] [address] [facility], [address] [place] [address] Kayc Delaney, EDUCATION FINANCE PROCESSOR [address] [place] [address] 02/21/2024 3:15 PM EST Appointment [facility] [address] [place] [address] 02/27/2024 11:00 AM EST Ancillary Procedure [facility] [address], [address] [place] [address] 02/27/2024 11:40 AM EST Office Visit [facility] [address], [address] [place] [address] Rebecca Zhou APRN, DNP [address] [place] [address] documented as of this encounter Visit Diagnoses Not on filedocumented in this encounter Additional Health Concerns Assessment Noted Time A fall risk assessment has been complete d for the patient 09/13/2022 1:09 PM EDT A Body Mass Index follow-up plan has been documented for the patient 02/21/2023 1:52 PM EST documented as of this encounter Care Teams Spot Worker Relationship Specialty Start Date End Date Renetta Lopez APRN [address] [place] [address] PCP - General 09/13/22 documented as of this encounter
--- OUTSIDE RECORDS SUMMARY | 2024-01-26 15:08 | XMS_ITS | Encounter Summary ---
Author Organization [facility] Address [address] [place] [address] Care Team Providers Care Mat Roller Name Role Phone John Renetta Mohamud SYSTEMS DESIGNER Primary Care Provider Encounter Details Date Type Department Care Team (Latest Contact Info) Description 11/15/2022 Travel Social History Tobacco Use Types Packs/Day [...] Description 01/30/2024 4:00 PM EST Office Visit [facility] [place] [address] [facility], [address] [place] [address] Kacy Delaney, SYSTEMS DESIGNER [address] [place] [address] 02/21/2024 3:15 PM EST Appointment [facility] [address] [place] [address] 02/27/2024 11:00 AM EST Ancillary Procedure [facility] [address], [address]nd [place] [address] 02/27/2024 11:40 AM EST Office Visit [facility] [address], [address] [place] [address] Rebecca hZou APRN, DNP [address] [place] [address] documented as of this encounter Visit Diagnoses Not on filedocumented in this encounter Additional Health Concerns Assessment Noted Time A fall risk assessment has been complete d for the patient 09/13/2022 1:09 PM EDT A Body Mass Index follow-up plan has been documented for the patient 11/15/2022 3:07 PM EDT documented as of this encounter Care Teams Mat Roller Relationship Specialty Start Date End Date Renetta Lopez APRN [address] [place] [address] PCP - General 09/13/22 documented as of this encounter
--- OUTSIDE RECORDS SUMMARY | 2024-01-26 15:08 | XMS_ITS | Encounter Summary ---
Author Organization [facility] Address [address] [place] [address] Care Team Providers Care Refrigeration Person Name Role Phone Renetta Lopez MED SPEC Primary Care Provider [phone] Reason for Visit * Reason Onset Date Comments Lab reminder 1 03/06/2023 Encounter Details Date Type Department Care Team (Late st Contact Info) Description 03/06/2023 Telephone [facility] [place] [address] [place] [address] Kacy Delaney, MED SPEC [address] [place] [address] Lab reminder 1 Social History Tobacco Use Types Packs/Day Years [...] encounter Miscellaneous Notes * Telephone Encounter - Bonnie Pham - 03/06/2023 8:29 AM EST Contacted pt regarding f/u labs needed. No answer, left vmail for return call. documented in this encounter Plan of Treatment Upcoming Encounters Date Type Department Care Team (Late st Contact Info) Description 01/30/2024 4:00 PM EST Office Visit [facility] [place] [address] [facility], [address] [place] [address] Kacy Delaney, MED SPEC [address] [place] [address] 02/21/2024 3:15 PM EST Appointment [facility] [address] [place] [address] 02/27/2024 11:00 AM EST Ancillary Procedure [facility] [address], [address] [place] [address] 02/27/2024 11:40 AM EST Office Visit [facility] [address], [address] [place] [address] Rebecca Zhou, MED SPEC, DNP [address] [place] [address] documented as of this encounter Visit Diagnoses Not on filedocumented in this encounter Additional Health Concerns Assessment Noted Time A fall risk assessment has been complete d for the patient 09/13/2022 1:09 PM EDT A Body Mass Index follow-up plan has been documented for the patient 02/21/2023 1:52 PM EST documented as of this encounter Care Teams Refrigeration Person Relationship Specialty Start Date End Date Renetta Lopez, MED SPEC [address] [place] [address] PCP - General 09/13/22 documented as of this encounter
--- OUTSIDE RECORDS SUMMARY | 2024-01-26 15:08 | XMS_ITS | Encounter Summary ---
Author Organization [facility] Address [address] [place] [address] Care Team Providers Care Para Professional Name Role Phone Nazanin Lopeza Mohamud JOINT FILLER Primary Care Provider [phone] Encounter Details Date Type Department Care Team (Latest Contact Info) Description 03/23/2023 Travel Social History Tobacco Use Types Packs/Day [...] Description 01/30/2024 4:00 PM EST Office Visit [facility] [place] [address] [facility], [address] [place] [address] Kacy Delaney, JOINT FILLER [address] [place] [address] 02/21/2024 3:15 PM EST Appointment [facility] [address] [place] [address] 02/27/2024 11:00 AM EST Ancillary Procedure [facility] [address], [address]nd [place] [address] 02/27/2024 11:40 AM EST Office [facility] [address], [address] [place] [address] Rebecca Zhou APRN, DNP [address] [place] [address] documented as of this encounter Visit Diagnoses Not on filedocumented in this encounter Additional Health Concerns Assessment Noted Time A fall risk assessment has been complete d for the patient 09/13/2022 1:09 PM EDT A Body Mass Index follow-up plan has been documented for the patient 02/21/2023 1:52 PM EST documented as of this encounter Care Teams Para Professional Relationship Specialty Start Date End Date Renetta Lopez APRN [address] [place] [address] PCP - General 09/13/22 documented as of this encounter
--- OUTSIDE RECORDS SUMMARY | 2024-01-26 15:08 | XMS_ITS | Encounter Summary ---
Author Organization [facility] Address [address] [place] [address] Care Team Providers Care Bark Scaler Name Role Phone John Renetta Mohamud DIRECTOR OF SECURITY Primary Care Provider [phone] Encounter Details Date Type Department Care Team (Latest Contact Info) Description 03/26/2023 Travel Social History Tobacco Use Types Packs/Day [...] Description 01/30/2024 4:00 PM EST Office Visit [facility] [place] [address] [facility] [facility], [address] [place] [address] Kacy Delaney, DIRECTOR OF SECURITY [address] [place] [address] 02/21/2024 3:15 PM EST Appointment [facility] [address] [place] [address] 02/27/2024 11:00 AM EST [facility]illary [facility] [address], 2nd [place] [address] 02/27/2024 11:40 AM EST [facility] [address], [address] [place] [address] Rebecca Zhou APRN, DNP [address] [place] [address] documented as of this encounter Visit Diagnoses Not on filedocumented in this encounter Additional Health Concerns Assessment Noted Time A fall risk assessment has been complete d for the patient 09/13/2022 1:09 PM EDT A Body Mass Index follow-up plan has been documented for the patient 03/26/2023 11:26 AM EST documented as of this encounter Care Teams Bark Scaler Relationship Specialty Start Date End Date Renetta Lopez APRN [address] [place] [address] PCP - General 09/13/22 documented as of this encounter
--- OUTSIDE RECORDS SUMMARY | 2024-01-26 15:08 | XMS_ITS | Encounter Summary ---
Author Organization [facility] Address [address] [place] [address] Care Team Providers Care Chipping Machine Operator Name Role Phone Nazanin Lopeza Mohamud COLBY Primary Care Provider [phone] Encounter Details Date Type Department Care Team (Late st Contact Info) Description 02/25/2023 Telephone [facility] [place] [address] [facility] [place] [address] Magui Alvarado RN [facility] [address] [place] [address] Social History Tobacco Use Types Packs/Day Years [...] as of this encounter Miscellaneous Notes * Addendum Note - Magui Alvarado RN - 02/26/2023 11:15 AM ESTAddended by: MAGUI ALVARADO on: 02/26/2023 11:15 AM Modules accepted: Orders * Telephone Encounter - Magui lAvarado RN - 02/26/2023 11:14 AM EST Notified that prescription had been obtained from [facility], Updated prescription sent to [facility] for future fills. * Telephone Encounter - Magui Alvarado RN - 02/25/2023 1:55 PM EST Message received this AM regarding Entresto cost of $245.57/month. Neema contacted and provided free trial card for Entresto for first month free. Message sent ot [facility] to determine if Ms. Merritt would be eligible for [facility] program. Response below: ----- Message ----- From: Rex Read, PharmD Sent: 02/25/2023 12:30 PM EST To: Magui Alvarado RN She is not currently enrolled in [facility], but based off her diagnosis she may qualify for tahir. We can look into it further once we have the script. Thanks! Message sent to Ms. Merritt via [employer] requesting to notify CHF coordinator once Entresto is picked up so updated prescription for further assistance could be sent to [facility]. documented in this encounter Plan of Treatment Upcoming Encounters Date Type Department Care Team (Late st Contact Info) Description 01/30/2024 4:00 PM EST Office Visit [facility] [place] [address] [facility], [address] [place] [address] Kacy Delaney, EARNESTINE [address] [place] [address] 02/21/2024 3:15 PM EST Appointment [facility] [address] [place] [address] 02/27/2024 11:00 AM EST [facility]illary [facility] [address], 2nd [place] [address] 02/27/2024 11:40 AM EST [facility] [address], [address] [place] [address] Rebecca Zhou, EMAIL DEPLOYMENT SPECIALIST, DNP [address] [place] [address] documented as of this encounter Visit Diagnoses Not on filedocumented in this encounter Additional Health Concerns Assessment Noted Time A fall risk assessment has been complete d for the patient 09/13/2022 1:09 PM EDT A Body Mass Index follow-up plan has been documented for the patient 02/21/2023 1:52 PM EST documented as of this encounter Care Teams Chipping Machine Operator Relationship Specialty Start Date End Date Renetta Lopez APRN [address] [place] [address] PCP - General 09/13/22 documented as of this encounter
--- OUTSIDE RECORDS SUMMARY | 2024-01-26 15:08 | XMS_ITS | Encounter Summary ---
Author Organization [facility] Address [address] [place] [address] Care Team Providers Care Integrated Program Teacher Name Role Phone Unavailable Primary Care Provider Unavailabl e Encounter Details Date Type Department Care Team (Late st Contact Info) Description 08/22/2022 Telephone [facility] [place] [address] [facility] [place] [address] Eric Roman MD [address] [place] [address] Social History Tobacco Use Types Packs/Day Years Used Date Smoking Tobacco: Never Assessed Comments Unknown Sex and Gender Information Value Date Recorded Sex Assigned at Not on file Legal Sex Female 6:00 PM EDT Gender Identity Not on file Sexual Orientation Not on file documented as of this encounter Miscellaneous Notes * Telephone Encounter - Lashell Victoria - 08/22/2022 12:12 PM EDT Called and spoke with Lou and asked that the images from the patient's NM study be PowerShared with [facility]. She asked that I send faxed request to [phone]. Fax sent. documented in this encounter Plan of Treatment Upcoming Encounters Date Type Department Care Team (Late st Contact Info) Description 01/30/2024 4:00 PM EST Office Visit [facility] [place] [address] [facility], [address] [place] [address] Kacy Delaney, TOOL ADJUSTER [address] [place] [address] 02/21/2024 3:15 PM EST Appointment [facility] [address] [place] [address] 02/27/2024 11:00 AM EST Ancillary Procedure [facility] Medicine Specialties [address], [address]nd [place] [address] 02/27/2024 11:40 AM EST Office Visit [facility] Specialties [address], [address] [place] [address] Rebecca Zhou, TOOL ADJUSTER, DNP [address] [place] [address] documented as of this encounter Visit Diagnoses Not on filedocumented in this encounter
--- OUTSIDE RECORDS SUMMARY | 2024-01-26 15:08 | XMS_ITS | Encounter Summary ---
Author Organization [facility] Address [address] [place] [address] Care Team Providers Care Tomato Paste Maker Name Role Phone JohnRenetta EARNESTINE Primary Care Provider [phone] Encounter Details Date Type Department Care Team (Late st Contact Info) Description 09/21/2022 Telephone [facility] [address] [place] [address] Rex Read, PharmD Social History Tobacco Use Types Packs/Day Years [...] encounter Miscellaneous Notes * Telephone Encounter - Magui Alvarado RN - 09/21/2022 10:23 AM EDT Ms. Merritt has been approved to obtain Vyndamax through [employer] Vyndamax through [employer] [phone] fax [phone] * Telephone Encounter - Rex Read, PharmD - 09/21/2022 9:33 AM EDT [facility] Discharge of Clinical Services Specialty Medications and their indications: Vyndamax 61mg - Cardiac Amyloidosis Reason(s) for discharge: External Services - Patient using [facility] Summary of care provided: Benefits investigation, Prior authorization, and Financial assistance Patient's ongoing unmet needs/care: Patient has no ongoing unmet needs. Instructions or referral information provided to the patient/responsible constitution party: Rx has been transferred to [facility] program. An offer was made to supply medication to [facility] the recieving Pharmacy/[facility]. Rex Read, PharmRad 09/21/2022 9:34 AM documented in this encounter Plan of Treatment Upcoming Encounters Date Type Department Care Team (Late st Contact Info) Description 01/30/2024 4:00 PM EST Office Visit [facility] [place] [address] [facility], [address] [place] [address] Kacy Delaney, SEED DISTRICT SALES MANAGER [address] [place] [address] 02/21/2024 3:15 PM EST Appointment [facility] [address] [place] [address] 02/27/2024 11:00 AM EST Ancillary Procedure [facility] Medicine Specialties [address], 2nd [place] [address] 02/27/2024 11:40 AM EST Office Visit [facility] Medicine Specialties [address], [address]nd [place] [address] Rebecca Zhou, EARNESTINE, DNP [address] [place] [address] documented as of this encounter Visit Diagnoses Not on filedocumented in this encounter Additional Health Concerns Assessment Noted Time A fall risk assessment has been complete d for the patient 09/13/2022 1:09 PM EDT A Body Mass Index follow-up plan has been documented for the patient 09/13/2022 3:02 PM EDT documented as of this encounter Care Teams Tomato Paste Maker Relationship Specialty Start Date End Date Renetta Lopez, SEED DISTRICT SALES MANAGER [address] [place] [address] PCP - General 09/13/22 documented as of this encounter
--- OUTSIDE RECORDS SUMMARY | 2024-01-26 15:08 | XMS_ITS | Encounter Summary ---
Author Organization [facility] Address [address] [place] [address] Care Team Providers Care Delivery Tech Name Role Phone Renetta Lopez APRN Primary Care Provider [phone] Reason for Referral * Cardiac Stress Testing (Routine) - Closed Specialty Diagnoses / Procedures Referred By Dalton haynes Referred To Contact Cardiology Diagnoses Chronic diastolic (congestive) heart failure (CMS/HCC) Palpitations Procedures Adult Patch Monitor - 14 Day Eric Roman MD [address] [place] [address] Phone: tel: fax: Referral ID Status Reason Start Date Expiration Date Visits Re quested Visits Authorized [id number] Closed 09/13/2022 03/14/2024 1 1 Reason for Visit * Cardiac Stress Testing (Routine) - Closed Specialty Diagnoses / Procedures Referred By Dalton haynes Referred To Contact Cardiology Diagnoses Chronic diastolic (congestive) heart failure (CMS/HCC) Palpitations Procedures Adult Patch Monitor - 14 Day Eric Roman MD [address] [place] [address] Phone: tel: fax: Referral ID Status Reason Start Date Expiration Date Visits Re quested Visits Authorized [id number] Closed 09/13/2022 03/14/2024 1 1 Encounter Details Date Type Department Care Team (Latest Contact Info) Description 09/13/2022 3:05 PM EDT - 09/13/2022 11:59 PM EDT Hospital Encounter Medical Office Building Cardiac Diagnostic Testing Medical Office Building [facility] [address], [address] [place] [address] Chronic diastolic (congestive) heart failure (CMS/HCC); Palpitations Discharge Disposition: Home or Self Care Social [...] under the skin every 6 (six) months. 08/24/2022 diclofenac (Voltaren) 1 % topical gel APPLY 2 GRAMS TO AFFECTED AREA 3-4 TIMES DAILY 07/24/2022 dilTIAZem CD (Cardizem CD) 180 MG 24 hr capsule Take 1 capsule (180 mg) by mouth. 07/24/2022 folic acid (Folvite) 1 MG tablet Take by mouth 1 (one) time each day. methotrexate 2.5 MG tablet Take by mouth 1 (one) time per week. Follow directions carefully, and ask to explain any part you do not understand. Take exactly as directed. pantoprazole (Protonix) 40 MG EC tablet Take 1 tablet (40 mg) by mouth 1 (one) time each day before breakfast. Do not crush, chew, or split. pregabalin (Lyrica) 150 MG capsule Take 1 capsule (150 mg) by mouth 2 (two) times a day. Pt states she takes 50mg in the AM 150mg in the PM cholecalciferol (Vitamin D-3) 50 MCG (2000 UT) capsule Take 1 capsule (2,000 Units) by mouth. clopidogrel (Plavix) 75 MG tablet Take 1 tablet (75 mg) by mouth 1 (one) time each day. 4 coenzyme Q-10 200 MG tablet Take 1 tablet (200 mg) by mouth 1 (one) time each day. 4 doxycycline (Vibra-Tabs) 100 MG tablet Take 1 tablet (100 mg) by mouth 2 (two) times a day. Take with a full glass of water and do not lie down for at least 30 minutes after. 60 tablet 11 09/13/2022 3 Green Tea 250 MG capsule Take 500 mg by mouth 2 (two) times a day. 120 capsule 09/13/2022 4 metoprolol tartrate (Lopressor) 50 MG tablet Take 1 tablet (50 mg) by mouth 2 (two) times a day. 4 Tafamidis (Vyndamax) 61 MG capsule Take 1 capsule (61 mg) by mouth every 30 (thirty) days. 30 capsule 09/13/2022 4 documented as of this encounter Plan of Treatment Upcoming Encounters Date Type Department Care Team (Late st Contact Info) Description 01/30/2024 4:00 PM EST Office Visit [facility] [place] [address] [facility] [facility], [address] [place] [address] Kacy Delaney, FLORIST DESIGNER [address] [place] [address] 02/21/2024 3:15 PM EST Appointment [facility] [address] [place] [address] 02/27/2024 11:00 AM EST Ancillary Procedure [facility] [address], 2nd [place] [address] 02/27/2024 11:40 AM EST Office [facility] [address], [address]nd [place] [address] Rebecca Zhou, EARNESTINE, DNP [address] [place] [address] documented as of this encounter Procedures Procedure Name Priority Date/Time Associated Diagnosis Comments ADULT PATCH MONITOR - 14 DAY Routine 09/13/2022 3:27 PM EDT Chronic diastolic (congestive) heart failure (CMS/HCC) Palpitations documented in this encounter Results * Adult [...] Day :07:38 am Atrial Fibrillation or Flutter: [place] was 0 %, longest event 0 ms on --, fastest rate -- bpm on --. SVE(s): [place] was 0.26 %, max count per 24 hours 267 SVT (AT, RT): 25 events, longest event 13 beats on Day :18:55 pm, fastest event 155 bpm on Day :09:51 am Pause: 0 events, longest pause 0 ms on -- AV Block: 0 %, most severe block demonstrated -- PVC(s): [place] was 0.09 %, max count per 24 hours 91, 3 disparate morphologies Ventricular Tachycardia: 0 events, longest event 0 s at --, fastest rate -- bpm at -- Patient recorded 0 events during the monitoring period Physician Comments: Agree with findings Blunted Heart rate response us Eric Roman MD CV CARDIAC SERVICES PROCEDUR ES Final Result documented in this encounter Visit Diagnoses Diagnosis Chronic diastolic (congestive) heart failure (CMS/HCC) Palpitations documented in this encounter Additional Health Concerns Assessment Noted Time A fall risk assessment has been complete d for the patient 09/13/2022 1:09 PM EDT A Body Mass Index follow-up plan has been documented for the patient 09/13/2022 3:02 PM EDT documented as of this encounter Care Teams Delivery Tech Relationship Specialty Start Date End Date Renetta Lopez, FLORIST DESIGNER [address] [place] [address] PCP - General 09/13/22 documented as of this encounter
--- OUTSIDE RECORDS SUMMARY | 2024-01-26 15:08 | XMS_ITS | Encounter Summary ---
Author Organization [facility] Address [address] [place] [address] Care Team Providers Care Return To Service Inspector Name Role Phone Unavailable Primary Care Provider Unavailabl e Encounter Details Date Type Department Care Team (Late Contact Info) Description 08/24/2022 Telephone [facility] [place] [address] [facility] [place] [address] Eric Roman MD [address] [place] [address] Social History Tobacco Use Types Packs/Day Years Used Date Smoking Tobacco: Never Assessed Comments Unknown Sex and Gender Information Value Date Recorded Sex Assigned at Not on file Legal Sex Female 6:00 PM EDT Gender Identity Not on file Sexual Orientation Not on file documented as of this encounter Miscellaneous Notes * Telephone Encounter - Lashell Victoria - 08/24/2022 2:53 PM EDT Called patient to schedule appointment with Dr. Roman. No answer, left message on voice mail asking her to return my call. Left my name and number. documented in this encounter Plan of Treatment Upcoming Encounters Date Type Department Care Team (Late Contact Info) Description 01/30/2024 4:00 PM EST Office Visit [facility] [place] [address] [facility], [address] [place] [address] Kacy Delaney, FURNACE FIRER [address] [place] [address] 02/21/2024 3:15 PM EST Appointment [facility] [address] [place] [address] 02/27/2024 11:00 AM EST Ancillary Procedure [facility] Medicine Specialties [address] [place], [address] [place] [address] 02/27/2024 11:40 AM EST Office Visit [facility] [address] [place], [address] [place] [address] Rebecca Zhou, FURNACE FIRER, DNP [address] [place] [place] [address] documented as of this encounter Visit Diagnoses Not on filedocumented in this encounter
--- OUTSIDE RECORDS SUMMARY | 2024-01-26 15:08 | XMS_ITS | Encounter Summary ---
Author Organization [facility] Address [address] [place] [address] Care Team Providers Care Assistant Property Manager Name Role Phone Unavailable Primary Care Provider Unavailabl e Encounter Details Date Type Department Care Team (Late st Contact Info) Description 08/27/2022 Telephone [facility] [place] [address] [facility] [place] [address] Eric Roman MD [address] [place] [address] Social History Tobacco Use Types Packs/Day Years Used Date Smoking Tobacco: Never Assessed Comments Unknown Sex and Gender Information Value Date Recorded Sex Assigned at Not on file Legal Sex Female 6:00 PM EDT Gender Identity Not on file Sexual Orientation Not on file documented as of this encounter Miscellaneous Notes * Telephone Encounter - Lashell Victoria - 08/27/2022 2:25 PM EDT Patient's daughter returned my call and the patient has been scheduled for 09/13/22 at 1:40. She provides the patient's transportation. She was given the address for the clinic and instructed to bring all medications, photo ID and insurance cards. She verbalized understanding. Reminder printed. documented in this encounter Plan of Treatment Upcoming Encounters Date Type Department Care Team (Late Contact Info) Description 01/30/2024 4:00 PM EST Office Visit [facility] [place] [address], [address] [place] [address] Kacy Delaney, POWDERMAN [address] [place] [address] 02/21/2024 3:15 PM EST Appointment [facility] [address] [place] [address] 02/27/2024 11:00 AM EST Ancillary Procedure [facility] Medicine Specialties [address], [address] [place] [address] 02/27/2024 11:40 AM EST Office Visit [facility] Medicine Specialties [address], [address] [place] [address] Rebecca Zhou, POWDERMAN, DNP [address] [place] [address] documented as of this encounter Visit Diagnoses Not on filedocumented in this encounter
--- OUTSIDE RECORDS SUMMARY | 2024-01-26 15:08 | XMS_ITS | Encounter Summary ---
Author Organization [facility] Address [address] [place] [address] Care Team Providers Care Operations Dispatcher Name Role Phone Renetta Lopez GRADE TAMPER Primary Care Provider [phone] Reason for Visit * Reason Onset Date Comments Lab reminder 2 03/07/2023 Encounter Details Date Type Department Care Team (Late st Contact Info) Description 03/07/2023 Telephone [facility] [place] [address] [place] [address] Kacy Delaney, GRADE TAMPER [address] [place] [address] Lab reminder 2 Social History Tobacco Use Types Packs/Day Years [...] * Telephone Encounter - Bonnie Pham - 03/07/2023 8:29 AM EST Contacted pt regarding f/u labs needed. No answer, left vmail for return call. documented in this encounter Plan of Treatment Upcoming Encounters Date Type Department Care Team (Late st Contact Info) Description 01/30/2024 4:00 PM EST Office Visit [facility] [place] [address] [facility], [address] [place] [address] Kacy Delaney, GRADE TAMPER [address] [place] [address] 02/21/2024 3:15 PM EST Appointment [facility] [address] [place] [address] 02/27/2024 11:00 AM EST Ancillary Procedure [facility] Medicine Specialties [address], [address] [place] [address] 02/27/2024 11:40 AM EST Office Visit [facility] Medicine Specialties [address], [address] [place] [address] Rebecca Zhou, GRADE TAMPER, DNP [address] [place] [address] documented as of this encounter Visit Diagnoses Not on filedocumented in this encounter Additional Health Concerns Assessment Noted Time A fall risk assessment has been complete d for the patient 09/13/2022 1:09 PM EDT A Body Mass Index follow-up plan has been documented for the patient 02/21/2023 1:52 PM EST documented as of this encounter Care Teams Operations Dispatcher Relationship Specialty Start Date End Date Renetta Lopez, GRADE TAMPER [address] [place] [address] PCP - General 09/13/22 documented as of this encounter
--- OUTSIDE RECORDS SUMMARY | 2024-01-26 15:08 | XMS_ITS | Encounter Summary ---
Author Organization [facility] Address [address] [place] [address] Care Team Providers Care Land Degradation Analyst Name Role Phone Renetta Lopez VENEER GLUER Primary Care Provider [phone] Encounter Details Date Type Department Care Team (Late Contact Info) Description 02/20/2023 Telephone [facility] [place] [address] [facility] [place] [phone] Kacy Delaney, VENEER GLUER [address] [place] [address] Social History Tobacco Use Types [...] * Telephone Encounter - Lashell Victoria - 02/20/2023 2:46 PM EST Called and spoke with patient's daughter and she has confirmed her mother's appointment for 02/21. documented in this encounter Plan of Treatment Upcoming Encounters Date Type Department Care Team (Late Contact Info) Description 01/30/2024 4:00 PM EST Office Visit [facility] [place] [address] [facility], [address] [place] [address] Kacy Delaney, VENEER GLUER [address] [place] [address] 02/21/2024 3:15 PM EST Appointment [facility] [address] [place] [address] 02/27/2024 11:00 AM EST Ancillary Procedure [facility] Medicine Specialties [address] [place] [address] 02/27/2024 11:40 AM EST Office Visit [facility] [address], [address] [place] [address] Rebecca Zhou, EARNESTINE, DNP [address] [place] [address] documented as of this encounter Visit Diagnoses Not on filedocumented in this encounter Additional Health Concerns Assessment Noted Time A fall risk assessment has been complete d for the patient 09/13/2022 1:09 PM EDT A Body Mass Index follow-up plan has been documented for the patient 11/15/2022 3:07 PM EDT documented as of this encounter Care Teams Land Degradation Analyst Relationship Specialty Start Date End Date Renetta Lopez, VENEER GLUER [address] [place] [address] PCP - General 09/13/22 documented as of this encounter
--- OUTSIDE RECORDS SUMMARY | 2024-01-26 15:08 | XMS_ITS | Encounter Summary ---
Author Organization [facility] Address [address] [place] [address] Care Team Providers Care Couture Dressmaker Name Role Phone Unavailable Primary Care Provider Unavailabl e Encounter Details Date Type Department Care Team (Late Contact Info) Description 09/12/2022 Telephone [facility] [place] [address] [facility] [place] [phone] Eric Roman MD [address] [place] [address] Social History Tobacco Use Types Packs/Day Years Used Date Smoking Tobacco: Never Assessed Comments Unknown Sex and Gender Information Value Date Recorded Sex Assigned at Not on file Legal Sex Female 6:00 PM EDT Gender Identity Not on file Sexual Orientation Not on file documented as of this encounter Miscellaneous Notes * Telephone Encounter - Julien Lashell Francisco Javier - 09/12/2022 1:46 PM EDT Called and spoke with patient's daughter and she has confirmed the patient's appointment for 09/13. documented in this encounter Plan of Treatment Upcoming Encounters Date Type Department Care Team (Late Contact Info) Description 01/30/2024 4:00 PM EST Office Visit [facility] [place] [address] [facility], [address] [place] [phone] Kacy Delaney, AIRFRAME DESIGN ENGINEER [address] [place] [address] 02/21/2024 3:15 PM EST Appointment [facility] [address] [place] [address] 02/27/2024 11:00 AM EST Ancillary Procedure [facility] Medicine Specialties [address] [place] [address] 02/27/2024 11:40 AM EST Office Visit [facility] [address], [address] [place] [address] Rebecca Zhou, AIRFRAME DESIGN ENGINEER, DNP [address] [place] [address] documented as of this encounter Visit Diagnoses Not on filedocumented in this encounter
--- OUTSIDE RECORDS SUMMARY | 2024-01-26 15:08 | XMS_ITS | Encounter Summary ---
Author Organization [facility] Address [address] [place] [address] Care Team Providers Care Ceramic Worker Name Role Phone Unavailable Primary Care Provider Unavailabl e Encounter Details Date Type Department Care Team (Late Contact Info) Description 08/22/2022 Telephone [facility] [place] [address] [facility] [place] [phone] Eric Roman MD [address] [place] [address] Social History Tobacco Use Types Packs/Day Years Used Date Smoking Tobacco: Never Assessed Comments Unknown Sex and Gender Information Value Date Recorded Sex Assigned at Not on file Legal Sex Female 6:00 PM EDT Gender Identity Not on file Sexual Orientation Not on file documented as of this encounter Miscellaneous Notes * Telephone Encounter - Lashell Victoria - 08/22/2022 12:11 PM EDT Called patient to schedule appointment with Dr. Roman. No answer, left message on voice mail asking her to return my call. Left my name and number. documented in this encounter Plan of Treatment Upcoming Encounters Date Type Department Care Team (Late Contact Info) Description 01/30/2024 4:00 PM EST Office Visit [facility] [place] [address] [facility], [address] [place] [phone] Kacy Delaney, ZIGZAG ELASTIC ATTACHER [address] [place] [address] 02/21/2024 3:15 PM EST Appointment [facility] [address] [place] [address] 02/27/2024 11:00 AM EST Ancillary Procedure [facility] Medicine Specialties [address] [place] [address] 02/27/2024 11:40 AM EST Office Visit [facility] [address], [address] [place] [address] Rebecca Zhou, ZIGZAG ELASTIC ATTACHER, DNP [address] [place] [address] documented as of this encounter Visit Diagnoses Not on filedocumented in this encounter
--- OUTSIDE RECORDS SUMMARY | 2024-01-26 15:08 | XMS_ITS | Encounter Summary ---
Author Organization Address [address] [place] [address] Care Team Providers Care Cupola Hoist Operator Name Role Phone Renetta Lopez [employer] Primary Care Provider [phone] Encounter Details Date Type Department Care Team ([facility] st Contact Info) Description 02/21/2023 1:20 PM EST Office Visit [facility] [place] [address] [facility], [address] [place] [address] Kacy Delaney, [employer] [address] [place] [address] Chronic diastolic (congestive) heart failure (CMS/HCC) (Primary Dx); Cardiac amyloidosis (CMS/HCC) Social History Tobacco Use Types Packs/Day [...] Sign Reading Time Taken Comments Blood Pressure 159/76 02/21/2023 1:06 PM EST Pulse 70 02/21/2023 1:06 PM EST Temperature - - Respiratory Rate - - Oxygen Saturation 96% 02/21/2023 1:06 PM EST Inhaled Oxygen Concentration - - Weight 70.3 kg (154 lb 15.7 oz) 02/21/2023 1:06 PM EST Height 160 cm (5' 3 ) 02/21/2023 1:06 PM EST Body Mass Index 27.45 02/21/2023 1:06 PM EST documented in this encounter Miscellaneous Notes * Progress Notes - Kacy Delaney APRN - 02/21/2023 1:20 PM EST Images from the original note were [...] and is negative. Today patient reports feeling well. Denies any recent illnesses or hospitalizations. She notes lightheadedness occasionally in the mornings. No syncope. Otherwise, denies chest pain, palpitations, and orthopnea. Chronic LE edema is at baseline. She is wearing compression stockings. She is able to co mplete ADLs without difficulty as long as she paces herself. Her BPs have been elevated at home: 150s/80-90s.Patient has been compliant with medications and is tolerating without adverse effects. Review of symptoms 14 Point ROS reviewed [...] normal. Behavior: Behavior normal. Extremities: 1+ BLE pitting edema Visit Vitals BP (!) 159/76 (BP Location: Right arm, Patient Position: Sitting, BP Cuff Size: Adult) Pulse 70 Ht 1.6 m (5' 3 ) Wt 70.3 kg (154 lb 15.7 oz) SpO2 96% BMI 27.45 kg/m?? Imaging PYP scan 07/2022: consistent with [...] stay on it at this time. 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 The patient is agreeable to the plan and all pertinent questions were answered. Follow up in 1 month via and 4 months in person. Kacy Delaney APRN 02/21/23 documented in this encounter Plan of Treatment Upcoming Encounters Date Type Department Care Team (Late st Contact Info) Description 01/30/2024 4:00 PM EST Office Visit [facility] [place] [address] [facility], [address] [place] [address] Kacy Delaney APRN [address] [place] [address] 02/21/2024 3:15 PM EST Appointment [facility] [address] [place] [address] 02/27/2024 11:00 AM EST Ancillary Procedure [facility] Medicine Specialties [address], [address] [place] [phone] 02/27/2024 11:40 AM EST Office Visit [facility] [address], [address] [place] [address] Rebecca Zhou, EARNESTINE, DNP [address] [place] [address] Scheduled Orders Name Type Priority Associated Diagnoses Orde r Schedule Basic Metabolic Panel, Plasma Lab Routine Chronic diastolic (congestive) heart failure (CMS/HCC) Cardiac amyloidosis (CMS/HCC) Expected: 02/21/2023 (Approximate), Expires: 08/21/2024 documented as of this encounter Visit Diagnoses Diagnosis Chronic diastolic (congestive) heart failure (CMS/HCC)- Primary Cardiac amyloidosis (CMS/HCC) Other amyloidosis documented in this encounter Additional Health Concerns Assessment Noted Time A fall risk assessment has been complete d for the patient 09/13/2022 1:09 PM EDT A Body Mass Index follow-up plan has been documented for the patient 02/21/2023 1:52 PM EST documented as of this encounter Care Teams Cupola Hoist Operator Relationship Specialty Start Date End Date Renetta Lopez APRN [address] [place] [address] PCP - General 09/13/22 documented as of this encounter
--- OUTSIDE RECORDS SUMMARY | 2024-01-26 15:08 | XMS_ITS | Encounter Summary ---
Author Organization Healthcare Address [address] [place] [address] Care Team Providers Care Manager Production Name Role Phone Renetta Lopez PEANUT ROASTER Primary Care Provider [phone] Encounter Details Date Type Department Care Team (Late Contact Info) Description 08/13/2022 Orders Only External Location [address] [place] [phone] Henrik Mcallister MD [address] [place] [address] Social History Tobacco Use Types Packs/Day Years [...] EST Office Visit [facility] [place] [address] [facility], [address] [place] [address] Kacy Delaney, PEANUT ROASTER [address] [place] [address] 02/21/2024 3:15 PM EST Appointment [facility] [address] [place] [address] 02/27/2024 11:00 AM EST Ancillary Procedure [facility] [address], [address] [place] [address] 02/27/2024 11:40 AM EST Office Visit [facility] [address], [address] [place] [address] Rebecca Zhou, PEANUT ROASTER, DNP [address] [place] [address] documented as of this encounter Procedures Procedure Name Priority Date/Time Associated Diagnosis Comments NM OUTSIDE IMAGES 08/13/2022 11:05 AM EDT documented in this encounter Results * NM OUTSIDE IMAGES (08/13/2022 11:05 AM EDT) Anatomical Region Laterality Modality Nuclear Medicine 08/13/2022 11:0 5 AM EDT Henrik Mcallister MD IMG NM PROCEDURES Final R esult documented in this encounter Visit Diagnoses Not on filedocumented in this encounter Care Teams Manager Production Relationship Specialty Start Date End Date Renetta Lopez, PEANUT ROASTER [address] [place] [address] PCP - General 09/13/22 documented as of this encounter
--- OUTSIDE RECORDS SUMMARY | 2024-01-26 15:08 | XMS_ITS | Encounter Summary ---
Author Organization [facility] Address [address] [place] [address] Care Team Providers Care Supervisor Metal Fabricating Name Role Phone Renetta Lopez HOME HEALTH NURSE Primary Care Provider [phone] Reason for Visit * Reason Onset Date Comments Lab reminder 3 03/08/2023 Encounter Details Date Type Department Care Team (Late st Contact Info) Description 03/08/2023 Telephone [facility] [place] [address] [facility]. [address] [place] [address] Kacy Delaney, HOME HEALTH NURSE [address] [place] [address] Lab reminder 3 Social History Tobacco Use Types Packs/Day Years [...] Miscellaneous Notes * Telephone Encounter - Essence Marin - 03/08/2023 11:41 AM EST Letter and lab slip sent, will follow as needed. * Telephone Encounter - King Bonnie - 03/08/2023 10:05 AM EST Third attempt at contacting pt regarding lab work needed. No answer, left vmail for return call. Will send letter with lab slip to pt. documented in this encounter Plan of Treatment Upcoming Encounters Date Type Department Care Team (Late st Contact Info) Description 01/30/2024 4:00 PM EST Office Visit [facility] [place] [address] [facility], [address] [place] [address] Kacy Delaney, HOME HEALTH NURSE [address] [place] [address] 02/21/2024 3:15 PM EST Appointment [facility] [address] [place] [address] 02/27/2024 11:00 AM EST Ancillary Procedure [facility] Medicine Specialties [address] [place] [address] 02/27/2024 11:40 AM EST Office Visit [facility] Medicine Specialties [address], [address] [place] [address] Rebecca Zhou, HOME HEALTH NURSE, DNP [address] [place] [address] documented as of this encounter Visit Diagnoses Not on filedocumented in this encounter Additional Health Concerns Assessment Noted Time A fall risk assessment has been complete d for the patient 09/13/2022 1:09 PM EDT A Body Mass Index follow-up plan has been documented for the patient 02/21/2023 1:52 PM EST documented as of this encounter Care Teams Supervisor Metal Fabricating Relationship Specialty Start Date End Date Renetta Lopez, HOME HEALTH NURSE [address] [place] [address] PCP - General 09/13/22 documented as of this encounter
--- OUTSIDE RECORDS SUMMARY | 2024-01-26 15:08 | XMS_ITS | Data Portability ---
Author Organization [facility] KATONAH CLOSED Address [address] [facility] [address] [place] [address] Care Team Providers Care Health Services Information Specialist Name Role Phone BENNETT SZYMANSKI Referring Provider ISREAL NUNEZ Primary Care Provider GIOVANNI PARKINSON Digitizer Operator JAZMINE OSPINA Review Engineer Assessment No assessment recorded. Plan of Treatment Reminders Order Date Submit Date Provider Last Modified By Organization Details Last Modified Time Details Appointments NEW PATIENT O 2024 01:00P M BILLY MARTE DO Not available Not available Not available RHEUM RECHECK 2024 01:40P M JAZMINE OPSINA MD Not available Not available Not available HEARING AID ADJUSTME NTS 2024 01:00P M BILLY ROMAN AUD Not available Not available Not available Lab culture, bacteria l 2023 024 [facility], [address] [place] [address], [id number], 10/29/2023 14:20:56 surgical patholog y study 2023 024 [facility], [address] [place] [address], [address], 10/29/2023 12:07:04 culture, bacteria l 2023 024 [facility], [address] [place] [address], [address], 12/05/2023 13:47:35 CBC w/ auto diff 2023 [facility], [address] [place] [address], [address], 12/24/2023 16:40:33 CMP, serum or plasma 2023 [facility], [address] [place] [address], [address], 12/24/2023 17:10:15 ESR (erythro cyte sediment ation rate), blood 2023 [facility], [address] [place] [address], [address], 12/24/2023 16:53:40 C reactive protein, QN, serum or plasma 2023 [facility], [address] [place] [address], [address], 12/24/2023 17:10:13 vitamin B12 + folate, serum or blood 2023 [facility], [address] [place] [address], [address], 12/24/2023 17:04:52 protein electrop horesis panel, serum or plasma 2023 [facility], [address] [place] [address], [address], 12/26/2023 10:10:01 CK (creatin e kinase), total, serum 2023 [facility], [address] [place] [address], [address], 12/24/2023 17:10:16 vitamin B6 (pyridox ine), plasma 2023 [facility], [address] [place] [address], [address], 12/28/2023 16:13:55 vitamin D, 25-hydro xy, total, serum 2023 [facility], [address] [place] [address], [address], 12/24/2023 17:04:55 culture, bacteria l 2023 [facility], [address] [place] [address], [address], 01/14/2024 13:53:10 Referral neurolog ist referral 2023 germain 21 Billy Moo Marte DO, [address] [place] [address], [address], 12/24/2023 15:43:36 Procedures None recorded . Surgeries None recorded . Imaging None recorded . Medication Orders fluorour acil 5 % topical cream 2023 [facility], [address] [place] [address], [address], 12/24/2023 14:38:56 folic acid 1 mg tablet 2023 024 [facility], [address], [address], 12/24/2023 15:22:27 methotre xate sodium 2.5 mg tablet 2023 [facility], [address], [address], 12/24/2023 15:22:28 pregabal in 50 mg capsule 2023 024 [facility], [address], [address], 12/24/2023 15:22:28 pregabal in 100 mg capsule 2023 024 [facility], [address], [address], 12/24/2023 15:22:27 Patient TargetsNo targets recorded. Patient Instructions Encounter Date Encounter Id Patient Instructions Last Modified By Organization Details Last Modified Time 12/24/2023 [id number] I spent >40 minutes caring for the patient today with direct counseling, coordinating care, extensive review of outside records, medication management, and documentation. [email or web address] Not available 12/27/2023 06:50:30 12/24/2023 [id number] {{Walk in Repair Drop off 6 month* Regular}} hearing aid check. Patient reports {{no complaints* no sound weak sound intermitten t sound feedback br oken}} from {{both aids* the left aid the right aid}}. 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 Listening check was good {{for both aids* for the aid}}, no distortion or weakness was detected. The patient is to return in 6 months for another hearing aid check or sooner if problems arise. 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 SOURC E OF SPECI MEN: DAK SKIN, Left Upper Arm CLINI JASMEET INFOR MATIO N: r/o BCC Gross Descr iptio n: The speci men consi sted of multi ple (x2) moctezuma fragm ents which measu red 17 x 8 x 1mm in aggre gate. The large r piece was seria lly secti oned (x4). The small er piece was bisec naren. All tissu e submi tted in one casse tte. Micro scopi c Descr iptio n: The epide rmis displ ays full thick ness kerat inocy te atypi a and disor ganiz ation . Invol vemen t of the dermi s is not noted . FABI LIGHT MD Keira d Out Date: 10/28 12:06 Not Available [facility] [address] [place] [address], [id number], 10/29/2023 12:07:04 10/28/19 24 10/28/2023 CULTU RE, ROUTI NE methicillin resistant staphylococc us aureus ORGANI SM: METHIC ILLIN RESIST ANT STAPHY LOCOCC US AUREUS Not Available [facility] [address] [place] [address], [address], 10/31/2023 10:30:56 10/28/19 24 10/31/2023 CULTU RERENEE NE culture, routine abnormal ISOLA TE #1 Few Proba ble Staph yloco ccus sp.; ID and sensi tivit y in progr ess. See [place] te Resul t(s) Below Methi cilli n resis tant Staph yloco ccus aureu s Not Available [facility] [address] [place] [address], [address], 10/31/2023 10:30:56 10/28/19 24 10/31/2023 CULTU RE ROUTI NE amox/K clav'ate(C) >4/2 ug/mL resistant Not Available [facility] [address] [place] [address], [address], 10/31/2023 10:30:56 10/28/19 24 10/31/2023 CULTU RE ROUTI NE amp/sulbacta m(C) <=8/4 ug/mL resistant Not Available [facility] [address] [place] [address], [address], 10/31/2023 10:30:56 10/28/19 24 10/31/2023 CULTU RE, ROUTI NE cefazolin >16 ug/mL resistant Not Available [facility] [address] [place] [address], [address], 10/31/2023 10:30:56 10/28/19 24 10/31/2023 CULTU RE, ROUTI NE cefoxitin screen >4 ug/mL positive Not Available [facility] [address] [place] [address], [address], 10/31/2023 10:30:56 10/28/19 24 10/31/2023 CULTU RE, ROUTI NE ciprofloxaci n >2 ug/mL resistant Not Available [facility] [address] [place] [address], [address], 10/31/2023 10:30:56 10/28/19 24 10/31/2023 CULTU RE, ROUTI NE clindamycin >2 ug/mL resistant Not Available [facility] [address] [place] [address], [address], 10/31/2023 10:30:56 10/28/19 24 10/31/2023 CULTU RE, ROUTI NE daptomycin <=1 ug/mL susceptib le Not Available [facility] [address] [place] [address], [address], 10/31/2023 10:30:56 10/28/19 24 10/31/2023 CULTU RE, ROUTI NE erythromycin >4 ug/mL resistant Not Available [facility] [address] [place] [address], [address], 10/31/2023 10:30:56 10/28/19 24 10/31/2023 CULTU RE, ROUTI NE gentamicin <=4 ug/mL susceptib le Not Available [facility] [address] [place] [address], [address], 10/31/2023 10:30:56 10/28/19 24 10/31/2023 CULTU RE, ROUTI NE levofloxacin >4 ug/mL resistant Not Available [facility] [address] [place] [address], [address], 10/31/2023 10:30:56 10/28/19 24 10/31/2023 CULTU RE, ROUTI NE linezolid 4 ug/mL susceptib le Not Available [facility] [address] [place] [address], [address], 10/31/2023 10:30:56 10/28/19 24 10/31/2023 CULTU RE, ROUTI NE oxacillin >2 ug/mL resistant Not Available [facility] [address] [place] [address], [address], 10/31/2023 10:30:56 10/28/19 24 10/31/2023 CULTU RE, ROUTI NE rifampin <=1 ug/mL susceptib le Not Available [facility] [address] [place] [address], [address], 10/31/2023 10:30:56 10/28/19 24 10/31/2023 CULTU RE, ROUTI NE synercid 1 ug/mL susceptib le Not Available [facility] [address] [place] [address], [address], 10/31/2023 10:30:56 10/28/19 24 10/31/2023 CULTU RE, ROUTI NE tetracycline <=4 ug/mL susceptib le Not Available [facility] [address] [place] [address], [address], 10/31/2023 10:30:56 10/28/19 24 10/31/2023 CULTU RE, ROUTI NE trimeth/sulf a <=0.5/ 9.5 ug/mL susceptib le Not Available [facility] [address] [place] [address], [address], 10/31/2023 10:30:56 10/28/19 24 10/31/2023 CULTU RE, ROUTI NE vancomycin 2 ug/mL susceptib le Not Available [facility] [address] [place] [address], [address], 10/31/2023 10:30:56 12/04/19 24 12/04/2023 CULTU RE, ROUTI NE methicillin resistant staphylococc us aureus ORGANI SM: METHIC ILLIN RESIST ANT STAPHY LOCOCC US AUREUS Not Available [facility] [address] [place] [address], [address], 12/07/2023 15:51:29 12/04/1912/07/2023 CULTU RE, ROUTI NE culture, routine abnormal Rare tej l skin deneen isola naren. ISOLA TE #1 Rare Proba ble Staph yloco ccus sp.; In progr ess. See [place] te Resul t(s) Below Methi cilli n resis tant Staph yloco ccus aureu s Not Available [facility] [address] [address], [address], 12/07/2023 15:51:29 12/04/1912/07/2023 CULTU RE, ROUTI NE amox/K clav'ate(C) >4/2 ug/mL resistant Not Available [facility] [address] [place] [address], [address], 12/07/2023 15:51:29 12/04/1912/07/2023 CULTU RE, ROUTI NE amp/sulbacta m(C) <=8/4 ug/mL resistant Not Available [facility] [address] [address], [address], 12/07/2023 15:51:29 12/04/19 24 12/07/2023 CULTU RE, ROUTI NE cefazolin >16 ug/mL resistant Not Available [facility] [address] [place] [address], [address], 12/07/2023 15:51:29 12/04/19 24 12/07/2023 CULTU RE, ROUTI NE cefoxitin screen >4 ug/mL positive Not Available [facility] [address] [place] [address], [address], 12/07/2023 15:51:29 12/04/19 24 12/07/2023 CULTU RE, ROUTI NE ciprofloxaci n >2 ug/mL resistant Not Available [facility] [address] [place] [address], [address], 12/07/2023 15:51:29 12/04/1912/07/2023 CULTU RE, ROUTI NE clindamycin >2 ug/mL resistant Not Available [facility] [address] [place] [address], [address], 12/07/2023 15:51:29 12/04/1912/07/2023 CULTU RE, ROUTI NE daptomycin <=1 ug/mL susceptib le Not Available [facility] [address] [place] [address], [address], 12/07/2023 15:51:29 12/04/19 24 12/07/2023 CULTU RE, ROUTI NE erythromycin >4 ug/mL resistant Not Available [facility] [address] [place] [address], [address], 12/07/2023 15:51:29 12/04/19 24 12/07/2023 CULTU RE, ROUTI NE gentamicin <=4 ug/mL susceptib le Not Available [facility] [address] [place] [address], [address], 12/07/2023 15:51:29 12/04/19 24 12/07/2023 CULTU RE, ROUTI NE levofloxacin >4 ug/mL resistant Not Available [facility] [address] [place] [address], [address], 12/07/2023 15:51:29 12/04/19 24 12/07/2023 CULTU RE, ROUTI NE linezolid 4 ug/mL susceptib le Not Available [facility] [address] [place] [address], [address], 12/07/2023 15:51:29 12/04/1912/07/2023 CULTU RE, ROUTI NE oxacillin >2 ug/mL resistant Not Available [facility] [address] [place] [address], [address], 12/07/2023 15:51:29 12/04/1912/07/2023 CULTU RE, ROUTI NE rifampin <=1 ug/mL susceptib le Not Available [facility] [address] [place] [address], [address], 12/07/2023 15:51:29 12/04/1912/07/2023 CULTU RE, ROUTI NE synercid 1 ug/mL susceptib le Not Available [facility] [address] [place] [address], [address], 12/07/2023 15:51:29 12/04/1912/07/2023 CULTU RE, ROUTI NE tetracycline <=4 ug/mL susceptib le Not Available [facility] [address] [place] [address], [address], 12/07/2023 15:51:29 12/04/1912/07/2023 CULTU RE, ROUTI NE trimeth/sulf a <=0.5/ 9.5 ug/mL susceptib le Not Available [facility] [address] [place] [address], [address], 12/07/2023 15:51:29 12/04/1912/07/2023 CULTU RE, ROUTI NE vancomycin 1 ug/mL susceptib le Not Available [facility] [address] [place] [address], [address], 12/07/2023 15:51:29 12/24/19 24 12/24/2023 COMPL ETE BLOOD COUNT white blood cells 3.2 10*3/ uL 3.8-10 .8 low Not Available [facility] [address] [place] [address], [address], 12/24/2023 16:40:33 12/24/19 24 12/24/2023 COMPL ETE BLOOD COUNT red blood cells 3.24 10*6/ uL 3.80-5 .20 low Not Available [facility] [address] [address], [address], 12/24/2023 16:40:33 12/24/19 24 12/24/2023 COMPL ETE BLOOD COUNT hemoglobin 10.9 g/dL 12.0-1 6.0 low Not Available [facility] [address] [place] [address], [address], 12/24/2023 16:40:33 12/24/19 24 12/24/2023 COMPL ETE BLOOD COUNT hematocrit 32.4 % 35.0-4 7.0 low Not Available [facility] [address] [place] [address], [address], 12/24/2023 16:40:33 12/24/19 24 12/24/2023 COMPL ETE BLOOD COUNT MCV 100 fL 80-100 normal Not Available [facility] [address] [place] [address], [address], 12/24/2023 16:40:33 12/24/19 24 12/24/2023 COMPL ETE BLOOD COUNT MCH 34 pg 26-35 normal Not Available [facility] [address] [place] [address], [address], 12/24/2023 16:40:33 12/24/19 24 12/24/2023 COMPL ETE BLOOD COUNT MCHC 34 g/dL 32-36 normal Not Available [facility] [address] [place] [address], [address], 12/24/2023 16:40:33 12/24/19 24 12/24/2023 COMPL ETE BLOOD COUNT RDW 18.0 % 11.0-1 5.0 high Not Available [facility] [address] [place] [address], [address], 12/24/2023 16:40:33 12/24/19 24 12/24/2023 COMPL ETE BLOOD COUNT MPV 9.3 fL 6.2-10 .5 normal Not Available [facility] [address] [place] [address], [address], 12/24/2023 16:40:33 12/24/19 24 12/24/2023 COMPL ETE BLOOD COUNT platelet count 123 10*3/ uL 150-40 0 low Not Available [facility] [address] [place] [address], [address], 12/24/2023 16:40:33 12/24/19 24 12/24/2023 COMPL ETE BLOOD COUNT neutrophil,a bsolute 1.3 10*3/ uL 1.6-8. 4 low Not Available [facility] [address] [place] [address], [address], 12/24/2023 16:40:33 12/24/19 24 12/24/2023 COMPL ETE BLOOD COUNT lymphocyte,a bsolute 1.3 10*3/ uL 0.4-5. 1 normal Not Available [facility] [address] [place] [address], [address], 12/24/2023 16:40:33 12/24/19 24 12/24/2023 COMPL ETE BLOOD COUNT monocyte,abs olute 0.2 10*3/ uL 0.0-1. 2 normal Not Available [facility] [address] [place] [address], [address], 12/24/2023 16:40:33 12/24/19 24 12/24/2023 COMPL ETE BLOOD COUNT eosinophil,a bsolute 0.4 10*3/ uL 0.0-0. 8 normal Not Available [facility] [address] [place] [address], [address], 12/24/2023 16:40:33 12/24/19 24 12/24/2023 COMPL ETE BLOOD COUNT basophil,abs olute 0.0 10*3/ uL 0.0-0. 3 normal Not Available [facility] [address] [place] [address], [address], 12/24/2023 16:40:33 12/24/19 24 12/24/2023 COMPL ETE BLOOD COUNT % neutrophils 39.3 % 42.0-7 8.0 low Not Available [facility] [address] [place] [address], [address], 12/24/2023 16:40:33 12/24/19 24 12/24/2023 COMPL ETE BLOOD COUNT % lymphocytes 41.6 % 11.0-4 7.0 normal Not Available [facility] [address] [place] [address], [address], 12/24/2023 16:40:33 12/24/19 24 12/24/2023 COMPL ETE BLOOD COUNT % monocytes 5.7 % 0.0-11 .0 normal Not Available [facility] [address] [place] [address], [address], 12/24/2023 16:40:33 12/24/19 24 12/24/2023 COMPL ETE BLOOD COUNT % eosinophils 12.9 % 0.0-7. 0 high Not Available [facility] [address] [place] [address], [address], 12/24/2023 16:40:33 12/24/19 24 12/24/2023 COMPL ETE BLOOD COUNT % basophils 0.5 % 0.0-3. 0 normal Not Available [facility] [address] [place] [address], [address], 12/24/2023 16:40:33 12/24/19 24 12/24/2023 COMPL ETE BLOOD COUNT nucleated red cells 0.2 % 0.0-0. 9 normal Not Available [facility] [address] [place] [address], [address], 12/24/2023 16:40:33 12/24/19 24 12/24/2023 COMPL ETE BLOOD COUNT nucleated RBCs, absolute 0.01 10*3/ uL not estab. normal Not Available [facility] [address] [place] [address], [address], 12/24/2023 16:40:33 12/24/19 24 12/24/2023 ESR, AUTOM ATED ESR, automated 3 mm 0-29 normal Not Available [facility] [address] [place] [address], [address], 12/24/2023 16:53:40 12/24/19 24 12/24/2023 B12/F OLIC ACID PANEL folic acid >20.0 NG/mL 4.6-34 .8 normal Not Available [facility] [address] [place] [address], [address], 12/24/2023 17:04:52 12/24/19 24 12/24/2023 B12/F OLIC ACID PANEL vitamin B12 712 pg/mL 232-12 45 normal Not Available [facility] [address] [place] [address], [address], 12/24/2023 17:04:52 12/24/19 24 12/24/2023 VITAM IN D 25-OH vitamin D 25-oh, total 66 NG/mL >=30 NG/mL normal Not Available [facility] [address] [place] [address], [address], 12/24/2023 17:04:55 12/24/19 24 12/24/2023 C REACT MARTHA PROTE IN C reactive protein 0.17 mg/dL 0.00-0 .49 normal Not Available [facility] [address] [place] [address], [address], 12/24/2023 17:10:13 12/24/19 24 12/24/2023 COMP. METAB OLIC PANEL glucose 91 mg/dL 74-100 normal Not Available [facility] [address] [place] [address], [address], 12/24/2023 17:10:15 12/24/19 24 12/24/2023 COMP. METAB OLIC PANEL blood urea nitrogen 29 mg/dL 6-20 high Not Available [facility] [address] [place] [address], [address], 12/24/2023 17:10:15 12/24/19 24 12/24/2023 COMP. METAB OLIC PANEL creatinine 1.32 mg/dL 0.50-0 .95 high Not Available [facility] [address] [place] [address], [address], 12/24/2023 17:10:15 12/24/19 24 12/24/2023 COMP. METAB OLIC PANEL BUN/creatini ne ratio 22 (calc ) 10-20 high Not Available [facility] [address] [place] [address], [address], 12/24/2023 17:10:15 12/24/19 24 12/24/2023 COMP. METAB OLIC PANEL sodium 141 mmol/ L 136-14 5 normal Not Available [facility] [address] [place] [address], [address], 12/24/2023 17:10:15 12/24/19 24 12/24/2023 COMP. METAB OLIC PANEL potassium 4.3 mmol/ L 3.4-5. 0 normal Not Available [facility] [address] [place] [address], [address], 12/24/2023 17:10:15 12/24/19 24 12/24/2023 COMP. METAB OLIC PANEL chloride 104 mmol/ L 98-107 normal Not Available [facility] [address] [place] [address], [address], 12/24/2023 17:10:15 12/24/19 24 12/24/2023 COMP. METAB OLIC PANEL carbon dioxide 24 mmol/ L 22-31 normal Not Available [facility] [address] [place] [address], [address], 12/24/2023 17:10:15 12/24/19 24 12/24/2023 COMP. METAB OLIC PANEL anion gap 13 (calc ) 7-25 normal Not Available [facility] [address] [place] [address], [address], 12/24/2023 17:10:15 12/24/19 24 12/24/2023 COMP. METAB OLIC PANEL calcium 9.6 mg/dL 8.6-10 .2 normal Not Available [facility] [address] [place] [address], [address], 12/24/2023 17:10:15 12/24/19 24 12/24/2023 COMP. METAB OLIC PANEL total protein 6.3 g/dL 6.4-8. 3 low Not Available [facility] [address] [place] [address], [address], 12/24/2023 17:10:15 12/24/19 24 12/24/2023 COMP. METAB OLIC PANEL albumin 3.8 g/dL 3.5-5. 2 normal Not Available [facility] [address] [place] [address], [address], 12/24/2023 17:10:15 12/24/19 24 12/24/2023 COMP. METAB OLIC PANEL globulin 2.5 1.5-4. 5 normal Not Available [facility] [address] [place] [address], [address], 12/24/2023 17:10:15 12/24/19 24 12/24/2023 COMP. METAB OLIC PANEL albumin/glob ulin ratio 1.5 (calc ) 1.1-2. 5 normal Not Available [facility] [address] [place] [address], [address], 12/24/2023 17:10:15 12/24/19 24 12/24/2023 COMP. METAB OLIC PANEL bilirubin, total 0.3 mg/dL 0.1-1. 2 normal Not Available [facility] [address] [place] [address], [address], 12/24/2023 17:10:15 12/24/19 24 12/24/2023 COMP. METAB OLIC PANEL alkaline phosphatase 58 U/L 30-121 normal Not Available [facility] [address] [place] [address], [address], 12/24/2023 17:10:15 12/24/19 24 12/24/2023 COMP. METAB OLIC PANEL AST 34 U/L 0-32 high Not Available [facility] [address] [place] [address], [address], 12/24/2023 17:10:15 12/24/19 24 12/24/2023 COMP. METAB OLIC PANEL ALT 20 U/L 0-33 normal Not Available [facility] [address] [place] [address], [address], 12/24/2023 17:10:15 12/24/19 24 12/24/2023 COMP. METAB OLIC PANEL GFR 40 >= 60 abnormal NOT E New calcu latio n for GFR (CKD- EPI 2020) is formu lated witho ut race adjus tment facto rs at the recom menda tion of the [facility] [employer] Nephr ology . This calcu latio n has not been valid ated in pregn ant women . For pedia tric patie nts refer to https ://charles theodore.james agarwal.o rg/pr ofess ional s/KDO QI/gf r_cal culat orPed Not Available [facility] [address] [place] [address] [place], [address], 12/24/2023 17:10:15 12/24/19 24 12/24/2023 CREAT INE KINAS E creatine kinase 68 U/L 0-169 normal Not Available [facility] [address] [address], [phone], 12/24/2023 17:10:16 12/24/19 24 12/26/2023 PROTE IN ELECT ROPHO RESIS , SERUM protein, total 6.1 g/dL 6.1-8. 1 normal Not Available [facility] [address] [address], [phone], 12/26/2023 17:39:47 12/24/19 24 12/26/2023 PROTE IN ELECT ROPHO RESIS , SERUM albumin 3.6 g/dL 3.8-4. 8 low Not Available [facility] [address] [place] [address], [phone], 12/26/2023 17:39:47 12/24/19 24 12/26/2023 PROTE IN ELECT ROPHO RESIS , SERUM bqxkc-9-iqmz ulin 0.3 g/dL 0.2-0. 3 normal Not Available [facility] [address] [place] [address], [phone], 12/26/2023 17:39:47 12/24/19 24 12/26/2023 PROTE IN ELECT ROPHO RESIS , SERUM mzlmr-2-zolz ulin 0.6 g/dL 0.5-0. 9 normal Not Available [facility] [address] [place] [address], [phone], 12/26/2023 17:39:47 12/24/19 24 12/26/2023 PROTE IN ELECT ROPHO RESIS , SERUM beta 1 globulin 0.4 g/dL 0.4-0. 6 normal Not Available [facility] [address] [place] [address], [phone], 12/26/2023 17:39:47 11/05/20 24 12/26/2023 PROTE IN ELECT ROPHO RESIS , SERUM beta 2 globulin 0.3 g/dL 0.2-0. 5 normal Not Available [facility] [address] [place], [address], 12/26/2023 17:39:47 12/24/19 24 12/26/2023 PROTE IN ELECT ROPHO RESIS , SERUM gamma globulin 0.8 g/dL 0.8-1. 7 normal Not Available [facility] [address] [place], [address], 12/26/2023 17:39:47 12/24/1912/26/2023 PROTE IN ELECT [facility] RESIS , SERUM interpretati on SEE NOTE normal Hypoa lbumi nemia may be seen as a resul t of decre ased prote in synth esis or prote in loss. No restr icted band (M-sp rosa isela) seen. Not Available [facility] [address] [place], [phone], 12/26/2023 17:39:47 12/24/19 24 12/28/2023 VITAM IN B6 vitamin B6 40.2 NG/mL 2.1-21 .7 high (Note ) Vitam in suppl ement ation withi n 24 hours prior to blood draw may affec t the accur acy of resul ts. This test was devel oped and its drea tical perfo rmanc e khang cteri stics have been deter mined by [facility]. It has not been clear ed or appro lakisha by the FDA. This assay has been valid ated pursu ant to the CLIA regul ation s and is used for clini jasmeet purpo ses. MDF med fusio n [address] [facility] [address] [place] [address] [phone] Haroon Bolanos MD, PhD Not Available [facility] [address] [place], [address], 12/28/2023 16:13:55 01/13/20 24 01/14/2024 CULTU RE, ROUTI NE gram stain OCCASI ONAL EPITHE LIAL CELLS. NO ORGANI SMS SEEN. Not Available [facility] [address] [place] [address], [phone], 01/17/2024 11:38:11 01/13/20 24 01/17/2024 CULTU RE, ROUTI NE culture, routine No growt h day 2. No growt h day 4. Not Available [facility] [address] [place] [address], [phone], 01/17/2024 11:38:11 Result Notes None recorded. Procedures Surgical History Date Name Laterality Status Provider Name and Address Organization Details Recorded Time 10/28/19 24 Blade Biopsy w/ ED&C completed GIOVANNI PARKINSON PA-C [address] [place] [address], [phone], [facility] 10/28/2023 16:45:53 08/28/19 24 Lumbar Transforaminal Epidural Injection - Jordyn completed BENNETT SZYMANSKI MD [address] [place] [address], [phone], [facility] 08/28/2023 15:27:13 01/02/20 23 Tympanogram completed [facility] 01/01/2023 15:19:39 01/02/20 23 Audiogram completed [facility] 01/01/2023 15:19:36 01/02/20 23 Cerumen removal - Instruments, Unilateral completed Cora Prisca [facility] 01/01/2023 15:07:15 05/15/19 23 Sacroiliac Joint Injection - Jordyn completed BENNETT SZYMANSKI MD [address] [place] [address], [phone], [facility] 05/14/2022 14:28:25 12/15/19 22 lumbar spinal fusion completed Valeria Burch [facility] 04/06/2022 13:53:56 Other completed Lilia Madrigal [facility] 01/02/2017 12:22:54 Removal of gallbladder completed Lilia Madrigal [facility] 01/02/2017 12:23:06 Other completed Lilia Madrigal [facility] 01/02/2017 12:23:35 placement of stent in cardiac conduit completed [facility] 12/24/2023 14:39:35 procedure on back completed [facility] 12/24/2023 14:39:50 Carpal tunnel surgery completed [facility] 12/24/2023 14:40:07 extraction of cataract completed [facility] 12/24/2023 14:40:33 Imaging Results None recorded. Procedure Notes None recorded. Medical Equipment None Reported. Allergies Allergen ID Allergen Name Allergen Category Reaction Reaction Severity Criticality Documentation Date Start Date Code Code System Note Provider Name and Address Organization Details Recorded Time 138520 Macrobid medicatio n Not available Not available Not available 01/13/20162012 11372 1 RxNorm Comme nt: Creat ed By: Sam Machado any;Kandy hahn Date: 12/03 11:09 :58 AM; Not Available [facility] 6 04:08:08 770993 aspirin medicatio n Not available Not available Not available 01/02/2017 1191 RxNorm Liliajennifer Madrigal [facility] 7 12:26:21 Medications Name Sig Start Date Stop Date Status Note LastModified by Organization Details LastModified Time compound drug 10/02 completed Not Available Not Available Not Available pnuqjiv06 .5mg-5ml/ dexametha sone0.5 10/02 completed Not Available Not Available Not Available cyclobenz aprine 10 mg tablet Take by oral route for 10 days. 01/17 completed Not Available Not Available Not Available atorvasta tin 40 mg tablet TAKE 1 TABLET BY MOUTH AT BEDTIME NIGHTLY FOR CHOLESTE ROL active Not Available Not Available No t Available Percocet 7.5 mg-325 mg tablet Take 1 tablet every 6 hours by oral route as needed. 01/17 completed Not Available Not Available Not Available nystatin 100,000 unit/mL oral suspensio n 12/23 completed Not Available Not Available Not Available doxycycli ne hyclate 100 mg capsule Take 1 capsule twice a day by oral route for 14 days. 2023 active Not Available Not Available Not Avai lable diltiazem ER 180 mg capsule,2 4 hr,extend ed release TAKE 1 CAPSULE BY MOUTH ONCE DAILY active Not Available Not Available No t Available triamcino lone acetonide 0.5 % topical cream active Not Available Not Available Not Available azithromy kai 250 mg tablet 12/23 completed Not Available Not Available Not Available diltiazem CD 180 mg capsule,e xtended release 24 hr TAKE 1 CAPSULE BY MOUTH TWICE DAILY 12/23 completed Not Available Not Available Not Available ofloxacin 0.3 % eye drops INSTILL 1 DROP TO OPERATIV E EYE 4 TIMES DAILY FOR 7 DAYS 04/06 completed Not Available Not Available Not Available hydrocodo ne 5 mg-acetam inophen 325 mg tablet Take 1 tablet every 6 hours by oral route as needed. 04/06 completed Not Available Not Available Not Available Lipitor 80 mg tablet 01/02 completed Medicati on Descript ion: atorvast atin; Route:or al; refills: 0 Not Available Not Available Not Available diltiazem CD 240 mg capsule,e xtended release 24 hr TAKE 1 CAPSULE BY MOUTH ONCE DAILY 01/17 completed Not Available Not Available Not Available prednison e 20 mg tablet 12/23 completed Not Available Not Available Not Available fluoroura cil 5 % topical cream APPLY A SUFFICIE NT AMOUNT TO COVER THE LESIONS IN THE AFFECTED AREA(S) BY TOPICAL ROUTE 2 TIMES PER DAY for 21 days. THEN USE OVER THE COUNTER HYDROCOR TISONE FOR 3 DAYS FOLLOWIN G TO CALM DOWN SKIN. 12/23 completed Please compound ID #[id number] (Fluorou racil 5%/Calci potriene 0.005% 1:1 cream)Pt phone number Not Available Not Available Not Available prednison e 5 mg tablet TAKE 4 TABLETS BY MOUTH DAILY FOR 3 DAYS THEN DECREASE BY 1 TABLET EVERY 3 DAYS UNTIL COMPLETE . 01/17 completed Not Available Not Available Not Available clopidogr el 75 mg tablet TAKE 1 TABLET BY MOUTH ONCE DAILY 08/27 completed Not Available Not Available Not Available acyclovir 400 mg tablet 10/02 completed Not Available Not Available Not Available valacyclo vir 500 mg tablet TAKE 1 TABLET BY MOUTH ONCE DAILY FOR LESIONS IN MOUTH FOR 7 DAYS 10/02 completed Not Available Not Available Not Available tramadol 50 mg tablet TAKE 1 TABLET BY MOUTH EVERY 6 HOURS NEEDED active As needed Not Available Not Available Not Available ketorolac 0.5 % eye drops STARTING 3 DAYS BEFORE SURGERY, USE 1 DROP IN THE OPERATIV E EYE 4 TIMES A DAY FOR 10 DAYS, THEN DECREASE TO TWICE A DAY FOR 14 DAYS 04/06 completed Not Available Not Available Not Available prednisol one acetate 1 % eye drops,sindhu pension INSTILL 1 DROP 4 TIMES DAILY TO OPERATIV E EYE FOR 7 DAYS, THEN DECREASE TO TWICE A DAY FOR 14 DAYS 04/06 completed Not Available Not Available Not Available methotrex ate sodium 2.5 mg tablet Take 6 tablets every week by oral route. 2023 active Not Available Not Available Not Avai lable trazodone 100 mg tablet TAKE 1 TABLET BY MOUTH DAILY NEEDED FOR INSOMNIA 10/02 completed Not Available Not Available Not Available hydrocodo ne 7.5 mg-acetam inophen 325 mg tablet TAKE 1 TABLET BY MOUTH TWICE DAILY NEEDED MAY BREAK IN HALF AND TAKE UP TO THREE TIMES A DAY NEEDED 08/27 completed Not Available Not Available Not Available pantopraz ole 40 mg tablet,de layed release TAKE 1 TABLET BY MOUTH ONCE DAILY FOR GERD active Not Available Not Available No t Available nortripty line 10 mg capsule 12/23 completed Not Available Not Available Not Available fluoromet holone 0.1 % eye drops,sindhu pension INSTILL 1 DROP INTO RIGHT EYE 4 TIMES DAILY FOR 2 WEEKS THEN STOP 10/02 completed Not Available Not Available Not Available metronida zole 0.75 % topical cream APPLY CREAM TOPICALL Y TO AFFECTED AREA ONCE DAILY 10/02 completed Not Available Not Available Not Available ursodiol 250 mg tablet TAKE 1 TABLET BY MOUTH THREE TIMES DAILY 10/02 completed Not Available Not Available Not Available losartan 25 mg tablet TAKE 1 TABLET BY MOUTH TWICE DAILY 10/02 completed Not Available Not Available Not Available metoprolo l tartrate 50 mg tablet TAKE 1 TABLET BY MOUTH TWICE DAILY 12/23 completed Not Available Not Available Not Available folic acid 1 mg tablet Take 2 tablets every day by oral route. 2023 active Not Available Not Available Not Avai lable aspirin 81 mg tablet active Medicati on Descript ion: aspirin; Route:or al; refills: 0 Not Available Not Available Not Available mupirocin 2 % topical ointment APPLY A SMALL AMOUNT TO THE AFFECTED AREA OF THE NARES S BY TOPICAL ROUTE 2 TIMES PER DAY 2023 active Not Available Not Available Not Avai lable metoprolo l succinate ER 25 mg tablet,ex tended release 24 hr 12/23 completed Not Available Not Available Not Available hydroxych loroquine 200 mg tablet 01/17 completed Medicati on Descript ion: hydroxyc hloroqui ne; Route:or al; refills: 0 Not Available Not Available Not Available methylpre dnisolone 4 mg tablets in a dose pack TAKE BY MOUTH DIRECTED ON INSIDE OF PACKAGE 08/27 completed Not Available Not Available Not Available albuterol sulfate HFA 90 mcg/actua tion aerosol inhaler 12/23 completed Not Available Not Available Not Available Citrucel (sucrose) oral powder 10/02 completed Medicati on Descript ion: methylce llulose; Route:or al; refills: 0 Not Available Not Available Not Available doxycycli ne hyclate 100 mg tablet TAKE 1 TABLET BY MOUTH TWICE DAILY, TAKE WITH A FULL GLASS OF WATER AND DO NOT LIE DOWN FOR AT LEAST 30 MINUTES AFTER 10/02 completed Not Available Not Available Not Available Ambien 10 mg tablet 04/06 completed Medicati on Descript ion: zolpidem ; Route:or al; refills: 0 Not Available Not Available Not Available ciproflox acin 0.3 %-dexamet hasone 0.1 % ear drops,sindhu pension INSTILL 4 DROPS INTO AFFECTED EAR(S) TWICE DAILY FOR 7 DAYS 12/23 completed Not Available Not Available Not Available metoprolo l tartrate 25 mg tablet TAKE 1 TABLET BY MOUTH TWICE DAILY active Not Available Not Available No t Available pregabali n 50 mg capsule Take 1 capsule every day by oral route at bedtime. 2023 active Not Available Not Available Not Avai lable pregabali n 100 mg capsule Take 1 capsule twice a day by oral route. 2023 active Not Available Not Available Not Avai lable pregabali n 150 mg capsule 08/27 completed Not Available Not Available Not Available calcium active Not Available Not Avail able Not Available Vitamin D 10/27 completed Not Available Not Available Not Available Tylenol active Not Available Not Avail able Not Available Stool Softener active Medicati on Descript ion: docusate ; Route:or al; refills: 0 Not Available Not Available Not Available Zyrtec active Not Available Not Availa ble Not Available green tea extract 10/02 completed Not Available Not Available Not Available Pro Fe 180 mg iron capsule TAKE 1 CAPSULE BY MOUTH ONCE DAILY active Not Available Not Available No t Available oxycodone 10 mg tablet 04/06 completed Not Available Not Available Not Available diclofena c 1 % topical gel APPLY 2 GRAMS TOPICALL Y 3-4 TIMES DAILY TO THE AFFECTED AREA(S) 01/17 completed Not Available Not Available Not Available Probiotic active Not Available Not Moraima ilable Not Available Osteo Bi-Flex 01/17 completed Medicati on Descript ion: miscella neous; refills: 0 Not Available Not Available Not Available Centrum Silver 0.4 mg-300 mcg-250 mcg tablet active Medicati on Descript ion: multivit mendoza with minerals ; Route:or al; refills: 0 Not Available Not Available Not Available Entresto 24 mg-26 mg tablet TAKE 1 TABLET BY MOUTH TWICE DAILY 10/02 completed Not Available Not Available Not Available Vitals Date Recorded Body height Provider Name an d Address Organization Details Last Updated DateTime 10/28/2023 162.56 cm Susan Hidalgo [facility] 10/28/2023 14:10:24 Date Recorded Body height Body mass index (BMI) Body weight Respiratory rate Heart rate Oxygen saturation Oxygen saturation in Arterial blood by Pulse oximetry Systolic blood pressure Diastolic blood pressure Provider Name and Address Organization Details Last Updated DateTime 162.56 cm 26.3 kg/m2 28617.6 3 g 14 /min 71 /min 95 % 95 % 136 mm[Hg] 70 mm[Hg] [facility] 14:42:19 Social History Question Answer Notes LastModified by Organizat ion Details LastModified Time Tobacco Smoking Status Never Smoker Lilia Bowersholz [facility] 01/02/2017 12:22:47 What Is Your Level Of Alcohol Consumption? None Information not available 04/06/2022 Are You Currently Employed? No Information not available 04/06/2022 What Was The Date Of Your Most Recent Tobacco Screening? 12/24/2023 [email or web address] Information not available 12/24/2023 Have You Recently Traveled Abroad? No Information not available 04/06/2022 Sex: Female Functional Status Question Answer Note LastModified by Organizat ion Details LastModified Time Do you have difficulty dressing or bathing? No Information not available 04/06/2022 What is your exercise level? Occasional Information not available 04/06/2022 Mental Status None recorded. Family History Relationship Description Onset Age of this Age Resolved Age Notes LastModified by Organization Details LastModified Time Unspecified Relation Malignant neoplastic disease [email or web address] Not available 01/02 12:25:07 Unspecified Relation Diabetes mellitus [email or web address] Not available 01/02 12:25:14 Unspecified Relation Myocardial infarction [email or web address] Not available 12/19 12:25:26 Medical History Condition Response Depression N Deep Vein Thrombosis Y Varicose Veins Y Autoimmune disease Y Hearing Loss Y Cancer N Melanoma N Stroke N Skin Cancer Y Squamous Cell Carcinoma N Acne N Skin Problems Y Osteoporosis/Osteopenia Y Heart Attack ([place]) Y Other Skin Condition Y Diabetes N Eczema N Basal Cell Carcinoma N Sleep Apnea Y Hypertension Y Osteoporosis Y Gynecological HistoryNo gynecological history recorded. Obstetrics History GPAL:G 0 P 0 0 0 0 Past Encounters Encounter ID Performer Location Encounter Start Date Encounter Closed Date Diagnosis/Indication Diagnosis SNOMED-CT Code Diagnosis ICD10 Code [id number] ABHILASH HWANG MD [facility] [address] [facility] [place] [address] 01/02/2017 11:53:45 01/03/2017 09:45:30 Spondylolisthesis 652537264 M43.10 Spinal farheen nosis of lumbar region 48596309 M48.982 [id number] AB[facility]ILASH [facility] [address] [place] [address] 04/03/2017 10:43:47 04/03/2017 15:57:27 Spinal stenosis of lumbar region 83371788 M48.963 [id number] CASSIDY ODONNELL MD NEUROSURG [facility] [address] [place] [address] 08/09/2021 13:53:17 08/16/2021 17:18:21 Lumbar spondylolisthesis 1153207327 08857 M43.16 Spinal farheen nosis of lumbar region 68778072 M48.062 [id number] CASSIDY ODONNELL MD [facility]OSURG [facility] [address] [place] [address] 11/06/2021 09:29:47 11/07/2021 14:49:33 Lumbar radiculopathy 189163498 M54.16 [id number] [facility] SURGERY SCHEDULE [address] [place] [address] 12/21/2021 13:36:04 12/21/2021 16:22:27 [id number] CASSIDY ODONNELL MD NEUROSURG [facility] [address] [place] [address] RD[address] [place] [address] 01/17/2022 13:32:02 01/17/2022 16:33:22 Postoperative care 656162041 Z48.89 [id number] YVES BAXTER PA-C [facility] [address] [place] [address] 03/01/2022 12:23:27 03/01/2022 13:33:36 Pain of left hip joint 4871555737 33800 M25.552 Strain of hamstring tendon 598166309 S76.312A Tendinitis of left gluteal tendon 7059872042 71230 M76.02 [id number] [facility] [address] [place] [address] 03/19/2022 14:13:46 03/20/2022 07:34:57 Lumbar spondylosis 464324995 M47.896 [id number] BENNETT SZYMANSKI MD PAIN MEDICINE [address] [place] [address] 04/06/2022 13:34:55 04/06/2022 14:46:09 Lumbar radiculopathy 574881955 M54.16 Strain of hamstring tendon 869704827 S76.311D Lumbar post-laminectomy syndrome 754052100 M96.1 Inflammati on of sacroiliac joint 58399006 M46.1 [id number] Therese Daslonnie PAIN MED[facility] [address] [place] [address] 05/11/2022 09:31:33 05/11/2022 10:34:44 Displacement of lumbar intervertebral disc 6544337222 M51.26 Lumbar radiculopathy 128 475382 M54.16 Inflammati on of sacroiliac joint 80654575 M46.1 Strain of hamstring tendon 148686877 S76.311D Lumbar post-laminectomy syndrome 129316427 M96.1 [id number] BENNETT SZYMANSKI [facility]ESS[facility] NAL CHARG[facility] [address] [facility], [address] [place] [address] 05/14/2022 13:45:15 05/17/2022 15:41:30 Inflammation of sacroiliac joint 00500277 M46.1 [id number] BENNETT SZYMANSKI MD PAIN MEDICINE [address] [place] [address] 06/04/2022 10:56:42 06/05/2022 04:23:47 Displacement of lumbar intervertebral disc 3278146917 M51.26 Lumbar radiculopathy 128 215446 M54.16 Lumbar post-laminectomy syndrome 598486031 M96.1 [id number] CASSIDY ODONNELL MD NEUROSURG [facility] [address] [facility] [place] [address] 06/04/2022 14:15:36 06/07/2022 10:36:30 Lumbar radiculopathy 488094776 M54.16 [id number] [facility] SURGERY SCHEDULE [address] [place] [address] 06/26/2022 12:11:24 06/28/2022 16:30:25 [id number] KATHRYN QUIÑONEZ PA-C [facility] [address] [place] [address] 07/30/2022 13:15:58 07/31/2022 04:50:08 Lumbar radiculopathy 204019755 M54.16 [id number] CASSIDY ODONNELL MD [facility] [address] [place] [address] 11/07/2022 13:22:40 11/08/2022 04:48:47 Lumbar spondylosis 298966050 M47.896 [id number] GRAZYNA WOODS MD ENT [facility] [address] [place] [address] 1 01/01/2023 14:10:20 01/01/2023 17:34:06 Ear pressure sensation 742671893 H93.8X9 Amygdalolith 5001403 J35 .8 Impacted c erumen in right ear 7959106413 501044 H61.21 Asymmetric al sensorineural hearing loss 600212328 H90.5 Dysfunctio n of bilateral eustachian tubes 8082694156 956683 H69.93 Dysphagia 21070052 R13.1 0 [id number] BILLY DEREK ROMAN ENT [address] [place] [address] 1 01/01/2023 15:18:48 01/01/2023 16:07:00 Sensorineural hearing loss of bilateral ears 141763198 H90.3 [id number] BILLYLOTTIE ROMAN AUD ENT [address] [place] [address] 1 01/22/2023 15:36:12 01/22/2023 17:11:35 [id number] [place] [address] [place] [address] 1 02/13/2023 14:59:48 02/13/2023 16:52:31 [id number] BILLY ROMAN AUD ENT [address] [place] [address] 1 03/01/2023 15:59:20 03/01/2023 16:22:27 [id number] BILLY ROMAN, AUD ENT [address] [place] [address] 07/04/2023 15:07:49 07/04/2023 16:27:46 [id number] CASSIDY ODONNELL MD [facility] [address] [place] [address] 07/10/2023 13:59:10 07/11/2023 05:18:18 Lumbar radiculopathy 517502039 M54.16 [id number] LeVonya Candelaria PAIN MEDICINE [address] [place] [address] 08/28/2023 13:24:19 08/28/2023 16:20:14 Displacement of lumbar intervertebral disc 9090791372 M51.26 Lumbar radiculopathy 128 982796 M54.16 Spinal farheen nosis of lumbar region 96312527 M48.062 Lumbar post-laminectomy syndrome 463706295 M96.1 [id number] BENNETT SZYMANSKI MD [facility]ESS[facility] NAL CHARGES [address] [facility], [address] [place] [address] 08/28/2023 14:48:06 08/28/2023 16:19:13 Lumbar radiculopathy 532361511 M54.16 [id number] YAIR MARTELL PA-C PAIN MEDICINE [address] [place] [address] 10/03/2023 12:54:44 10/03/2023 15:11:04 Lumbar radiculopathy 848113668 M54.16 Displaceme nt of lumbar intervertebral disc 7358588804 M51.26 Spinal farheen nosis of lumbar region 66481839 M48.062 Lumbar post-laminectomy syndrome 152867382 M96.1 [id number] GIOVANNI PARKINSON PA-C [address] [address] 10/28/2023 14:01:16 10/28/2023 14:48:47 Multiple benign melanocytic nevi 837473217 D22.5 L81.4 L82.1 D18.01 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 36586463 D48.5 Bacterial infection of skin 074908728 L08.9 [id number] [place] [address] 8 12/04/2023 13:40:23 12/04/2023 14:19:19 Methicillin resistant Staphylococcus aureus infection 299784212 A49.02 History of malignant neoplasm of skin 929220403 Z85.828 Milia 869313687 L72.0 [id number] VINCENT ABRAMS MS ENT [facility] [address] [place] [address] 1 12/24/2023 10:58:04 12/24/2023 11:51:31 [id number] JAZMINE OSPINA MD RHEUMATOL OGY [place] [address] 1 12/24/2023 13:58:37 12/28/2023 04:18:25 Seropositive rheumatoid arthritis 361928407 M05.9 Osteoarthr itis of multiple joints 597398701 M15.9 Long-term drug therapy 009915673 Z79.899 Cardiac se condary systemic amyloidosis 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 Lumbar radiculopathy 128 511863 M54.16 Idiopathic peripheral neuropathy 71501691 G60.9 Resting tremor 40401337 G25.2 Osteoporosis 80404036 M8 1.0 [id number] [place] [address] 01/13/2024 12:42:48 01/13/2024 13:11:13 Methicillin resistant Staphylococcus aureus infection 125588622 A49.02 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 75299752 D48.5 Health Concerns Section Related Observation LastModified by Organization Detai ls LastModified Time None Recorded Concern Status LastModified by Organization Details LastModified Time None Recorded Advance Directives Directive None Recorded Payers Encounter Date Sequence Insurance Name Policy Number Policy Gunter Covered Member ID Gunter Member ID Guarantor Name 10/28/2023 1 [place] Chen Merritt [id number] Chen Merritt 10/28/2023 2 [employer] OPTIONS (MEDICARE SUPPLEMENT) Chen Merritt [id number] Chen Merritt 12/04/2023 1 [place] Chen Merritt [id number] Chen Merritt 12/04/2023 2 [employer] HE[employer]CARE OPTIONS (MEDICARE SUPPLEMENT) Chen Merritt [id number] Chen Merritt 12/24/2023 1 [place] Chen Merritt [id number] Chen Merritt 12/24/2023 2 [employer] HE[employer] OPTIONS (MEDICARE SUPPLEMENT) Chen Merritt [id number] Chen Merritt 01/13/2024 1 [place] Chen Merritt [id number] Chen Merritt 01/13/2024 2 [employer] HE[employer] OPTIONS (MEDICARE SUPPLEMENT) Chen Merritt [id number] Chen Merritt Notes Date Note Type Note Provider Name and Address Organization Details Recorded Time 10/28/2023 text/html Re establish ptF ull skin examI have spots on arms, inframammary, back, nose, face No hx of skin cancerLast seen- 12/2019 ([place]) GIOVANNI PARKINSON PA-C [address] [place], [address], [facility] 10/28/2023 16:47:03 12/04/2023 text/html mrsa reswabtx'd with mupirocin and doxy GIOVANNI PARKINSON PA-C [address] [place], [address], [facility] 12/04/2023 21:47:26 12/24/2023 text/html Chen Merritt is an 83 yo woman with past medical history of seronegative rheumatoid arthritis/psoriatic arthritis, osteoarthritis, 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 Her daughter is present with her at the appointment.She is a previous patient of mine from [facility]. She says that her rheumatoid arthritis is stable. However, she is having quite a bit of pain from her low back and her right thumb. She also says she gets tired very easily and has to rest several times while she is trying to get herself ready in the morning.She says that she is having a hard time sleeping because of the neuropathy in her hands and also the central resting tremor she has developed in her chin. She denies any recent hospitalizations or infections.She could not tolerate medication for amyloidosis and so she is not currently on anything. On review of cardiology notes, it looks like she tested positive for likelihood of amyloidosis on a PYP scan, but she has not had an MRI and her blood work ruled out AL amyloidosis. They also thought her carpal tunnel syndrome could also be indicative that she may have cardiac amyloidosis. She has an EF of 55% and grade 2 diastolic dysfunction. She is currently taking methotrexate 20 mg weekly and daily folic acid. She is also on Prolia for osteopenia.. Gets Prolia at [facility]. Most recent 09/16/23. No SE's. Labs showed mild elevation LFT, leukopenia and anemia. She is off of her vitamin D because she was told it was very high last time. JAZMINE OSPINA MD [facility] [place], [address], [facility] 12/27/2023 06:50:45 01/13/2024 text/html mrsa reswabtx'd with mupirocin and doxy spot on back GIOVANNI PARKINSON PA-C [address] [place], [address], [facility] 01/13/2024 15:12:33 OBGyn Episode No OBEpisode recorded.
--- OUTSIDE RECORDS SUMMARY | 2024-01-26 15:08 | XMS_ITS | Encounter Summary ---
Author Organization [facility] Address [address] [place] [address] Care Team Providers Care Repair Armature Winder Name Role Phone Renetta Lopez APRN Primary Care Provider [phone] Encounter Details Date Type Department Care Team (Late Contact Info) Description 01/09/2023 Telephone [facility] [place] [address] [facility] [place] [address] Magui Alvarado RN [facility] [address] [place] [address] Social History Tobacco Use Types Packs/Day Years [...] Telephone Encounter - Magui Alvarado RN - 01/09/2023 4:49 PM EST Attempted to reach Mrs. Merritt and daughter regarding patient [employer] patient assistance program forms. Provider portion faxed to [employer] . Attempted to reach Ms. Merritt to determine if they would want the forms emailed or mailed to them if they had not received forms from [employer].. Unable to reach message left and return call requested. documented in this encounter Plan of Treatment Upcoming Encounters Date Type Department Care Team (Late st Contact Info) Description 01/30/2024 4:00 PM EST Office Visit [facility] [place] [address], [address] [place] [address] Kacy Delaney, CHIEF ENGINEERING DIVISION [address] [place] [address] 02/21/2024 3:15 PM EST Appointment [facility] [address] [place] [address] 02/27/2024 11:00 AM EST Ancillary Procedure [facility] [address] [place] [address] 02/27/2024 11:40 AM EST Office Visit [facility] [address] [place] [address] Rebecca Zhou, CHIEF ENGINEERING DIVISION, DNP [address] [place] [address] documented as of this encounter Visit Diagnoses Not on filedocumented in this encounter Additional Health Concerns Assessment Noted Time A fall risk assessment has been complete d for the patient 09/13/2022 1:09 PM EDT A Body Mass Index follow-up plan has been documented for the patient 11/15/2022 3:07 PM EDT documented as of this encounter Care Teams Repair Armature Winder Relationship Specialty Start Date End Date Renetta Lopez, CHIEF ENGINEERING DIVISION [address] [place] [address] PCP - General 09/13/22 documented as of this encounter
--- OUTSIDE RECORDS SUMMARY | 2024-01-26 15:08 | XMS_ITS | Encounter Summary ---
Author Organization [facility] Address [address] [place] [address] Care Team Providers Care Records Assistant Name Role Phone Renetta Lopez SUPERVISOR ADVERTISING DISPATCH CLERKS Primary Care Provider [phone] Encounter Details Date Type Department Care Team (Late Contact Info) Description 04/26/2023 Telephone [facility] [place] [address] [facility] [place] [address] Kacy Delaney, SUPERVISOR ADVERTISING DISPATCH CLERKS [address] [place] [address] Social History Tobacco Use Types Packs/Day Years [...] * Telephone Encounter - Lashell Victoria - 04/26/2023 12:58 PM EST Called patient's daughter to discuss rescheduling her appointment. No answer, left message on voicemail that I have rescheduled her to 07/04/23 at 2:00. Asked her to call back if that date and time do not work. Left name and number for call back. Reminder printed. documented in this encounter Plan of Treatment Upcoming Encounters Date Type Department Care Team (Late Contact Info) Description 01/30/2024 4:00 PM EST Office Visit [facility] [place] [address], [address] [place] [address] Kacy Delaney, SUPERVISOR ADVERTISING [employer] CLERKS [address] [place] [address] 02/21/2024 3:15 PM EST Appointment [facility] [address] [place] [address] 02/27/2024 11:00 AM EST Ancillary Procedure [facility] [address] [place] [address] 02/27/2024 11:40 AM EST Office Visit [facility] [address] [place] [address] Rebecca Zhou, SUPERVISOR ADVERTISING [employer]ERKS, DNP [address] [place] [address] documented as of this encounter Visit Diagnoses Not on filedocumented in this encounter Additional Health Concerns Assessment Noted Time A fall risk assessment has been complete d for the patient 09/13/2022 1:09 PM EDT A Body Mass Index follow-up plan has been documented for the patient 03/26/2023 11:26 AM EST documented as of this encounter Care Teams Records Assistant Relationship Specialty Start Date End Date Renetta Lopez, SUPERVISOR ADVERTISING [employer]ERKS [address] [place] [address] PCP - General 09/13/22 documented as of this encounter
--- OUTSIDE RECORDS SUMMARY | 2024-01-26 15:08 | XMS_ITS | Continuity of Care Document ---
Author Organization [facility] [place] Address [address] [place] [address] Care Team Providers Care Bakelite Molder Name Role Phone BENNETT SZYMANSKI Referring Provider [phone] ISREAL NUNEZ Primary Care Provider [phone] GIOVANNI PARKINSON Senior Adults Director ALEISHA CROOK Blade Sharpener [phone] Assessment No assessment recorded. Plan of Treatment Reminders Order Date Submit Date Provider Last Modified By Organization Details Last Modified Time Details Appointments NEW PATIENT O 2024 01:00P M BILLY LOVE DO Not available Not available Not available RHEUM RECHECK 2024 01:40P M ALEISHA CROOK MD Not available Not available Not available HEARING AID ADJUSTME NTS 2024 01:00P M BILLY ROMAN AUD Not available Not available Not available Lab culture, bacteria l 2023 024 [facility], [address] [place] [address], [address], 01/14/2024 13:53:10 Referral None recorded . Procedures None recorded . Surgeries None recorded . Imaging None recorded . Medication Orders None recorded . Patient TargetsNo targets recorded. Patient InstructionsNo instructions recorded. Reason for Referral None Reported. Procedures Surgical History Date Name Laterality Status Provider Name and Address Organization Details Recorded Time 10/28/19 24 Blade Biopsy w/ ED&C completed GIOVANNI PARKINSON PA-C [address] [place] [address], [address], [facility] 10/28/2023 16:45:53 08/28/19 24 Lumbar Transforaminal Epidural Injection - Jordyn completed BENNETT SZYMANSKI MD [address] [place], [address], [facility] 08/28/2023 15:27:13 01/02/20 23 [facility]/01[facility]2023 15:19:39 01/02/20 23 [facility]/01/2023 15:19:36 01/02/20 23 Cerumen removal - Instruments, Unilateral completed Cora Cope [facility] 01/01/2023 15:07:15 05/15/19 23 Sacroiliac Joint Injection - Jordyn completed BENNETT SZYMANSKI MD [address] [place], [address], [facility] 05/14/2022 14:28:25 12/15/19 22 lumbar spinal fusion completed Valeria Burch [facility] 04/06/2022 13:53:56 Other completed [facility] 01/02/2017 12:22:54 Removal of gallbladder completed [facility] 01/02/2017 12:23:06 Other completed [facility] 01/02/2017 12:23:35 placement of stent in cardiac conduit completed [facility] 12/24/2023 14:39:35 procedure on back completed [facility] 12/24/2023 14:39:50 Carpal tunnel surgery completed [facility] 12/24/2023 14:40:07 extraction of cataract completed [facility] 12/24/2023 14:40:33 Imaging Results None recorded. Procedure Notes None recorded. Medical Equipment None Reported. Allergies Allergen ID Allergen Name Allergen Category Reaction Reaction Severity Criticality Documentation Date Start Date Code Code System Note Provider Name and Address Organization Details Recorded Time 361877 Macrobid medicatio n Not available Not available Not available 01/13/20162012 56624 1 RxNorm Comme nt: Creat ed By: Fishe r Jeannette any;C reate d Date: 12/03 11:09 :58 AM; Not Available [facility] 04:08:08 597513 aspirin medicatio n Not available Not available Not available 01/02/2017 1191 RxNorm Lilia Bowersholz [facility] 7 12:26:21 Medications Name Sig Start Date Stop Date Status Note LastModified by Organization Details LastModified Time compound drug 10/02 completed Not Available Not Available Not Available mhohuvl65 .5mg-5ml/ dexametha sone0.5 10/02 completed Not Available [...] 5%/Calci potriene 0.005% 1:1 cream)Pt phone number [phone] Not Available Not Available Not Available prednison [...] Not Available Not Available Not Available Vitals None Recorded Social History Question Answer Notes LastModified by Organizat ion Details LastModified Time Tobacco Smoking Status Never Smoker Lilia Bowersholz [facility] 01/02/2017 12:22:47 What Is Your Level Of [...] 12:25:26 Medical History Condition Response Depression N Autoimmune disease Y Cancer N Melanoma N Stroke N Skin Cancer Y Squamous Cell Carcinoma N Acne N Skin Problems Y Other Skin Condition Y Deep Vein Thrombosis Y Varicose Veins Y Hearing Loss Y Osteoporosis/Osteopenia Y Heart Attack ([place]) Y Diabetes N Eczema N Basal Cell Carcinoma N Sleep Apnea Y Hypertension Y Osteoporosis Y Gynecological HistoryNo gynecological history recorded. Obstetrics History GPAL:G 0 P 0 0 0 0 Past Encounters Encounter ID Performer Location Encounter Start Date Encounter Closed Date Diagnosis/Indication Diagnosis SNOMED-CT Code Diagnosis ICD10 Code [id number] VINCENT ABRAMS, [facility] [address] [place] [address] 12/24/2023 10:58:04 12/24/2023 11:51:31 [id number] ALEISHA CROOK MD [facility]HEUMATOL [facility] [address] [place] [id number] 12/24/2023 13:58:37 12/28/2023 04:18:25 Seropositive rheumatoid arthritis 422342046 M05.9 Osteoarthr itis of multiple joints 624346935 M15.9 Long-term drug therapy 387016604 Z79.899 Cardiac se condary systemic amyloidosis 2875562904 I43 Lumbar radiculopathy 128 886736 M54.16 Idiopathic peripheral neuropathy 68920314 G60.9 Resting tremor 26343095 G25.2 Osteoporosis 81105690 M8 1.0 [id number] GIOVANNI PARKINSON PA-C [address] [address] 01/13/2024 12:42:48 01/13/2024 13:11:13 Methicillin resistant Staphylococcus aureus infection 633902115 A49.02 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 07617527 D48.5 Health Concerns Section Related Observation LastModified by Organization Detai ls LastModified Time None Recorded Concern Status LastModified by Organization Details LastModified Time None Recorded Payers Encounter Date Sequence Insurance Name Policy Number Policy Gunter Covered Member ID Gunter Member ID Guarantor Name 01/13/2024 1 [place] Chen Merritt [id number] Chen Merritt 01/13/2024 2 [facility] HEALTHCARE OPTIONS (MEDICARE SUPPLEMENT) Chen Merritt [id number] Chen Merritt Notes Date Note Type Note Provider Name and Address Organization Details Recorded Time 01/13/2024 text/html mrsa reswabtx'd with mupirocin and doxy spot on back GIOVANNI PARKINSON PA-C [address] [place], [address], [facility] 01/13/2024 15:12:33 OBGyn Episode No OBEpisode recorded.
--- OUTSIDE RECORDS SUMMARY | 2024-01-26 15:09 | XMS_ITS | Continuity of Care Document ---
Author Organization [facility], RHEUMATOLOGY SB Address [address] [place] [address] Care Team Providers Care Game Room Attendant Name Role Phone JORDYNKRISTIN DuarteON Referring Provider [phone] ISREAL NUNEZ Primary Care Provider GIOVANNI PARKINSON Supervisor Title JAZMINE OSPINA Senior Mechanical Designer Assessment No assessment recorded. Plan of Treatment Reminders Order Date Submit Date Provider Last Modified By Organization Details Last Modified Time Details Appointments NEW PATIENT O 2024 01:00P M BILLY MARTE DO Not available Not available Not available RHEUM RECHECK 2024 01:40P M JAZMINE OSPINA MD Not available Not available Not available HEARING AID ADJUSTME NTS 2024 01:00P M BILLY ROMAN AUD Not available Not available Not available Lab CBC w/ auto diff 2023 [facility], [address] [place] [address], [phone], 12/24/2023 16:40:33 CMP, serum or plasma 2023 024 [facility], [address] [place] [address], [id number], 12/24/2023 17:10:15 ESR (erythro cyte sediment ation rate), blood 2023 024 [facility], [address] [place] [address], [id number], 12/24/2023 16:53:40 C reactive protein, QN, serum or plasma 2023 [facility], [address] [place] [address], [id number], 12/24/2023 17:10:13 vitamin B12 + folate, serum or blood 2023 [facility], [address] [place] [address], [id number], 12/24/2023 17:04:52 protein electrop horesis panel, serum or plasma 2023 [facility], [address] [place] [address], [id number], 12/26/2023 10:10:01 CK (creatin e kinase), total, serum 2023 [facility], [address] [place] [address], [id number], 12/24/2023 17:10:16 vitamin B6 (pyridox ine), plasma 2023 [facility], [address] [place] [address], [id number], 12/28/2023 16:13:55 vitamin D, 25-hydro xy, total, serum 2023 [facility], [address] [place] [address], [address], 12/24/2023 17:04:55 Referral neurolog ist referral 2023 [email or web address] 21 Billy Marte DO, [address] [place] [address], [address], 12/24/2023 15:43:36 Procedures None recorded . Surgeries None recorded . Imaging None recorded . Medication Orders folic acid 1 mg tablet 2023 [facility] 594, [address], [address], 12/24/2023 15:22:27 methotre xate sodium 2.5 mg tablet 2023 [facility] 591, [address], [address], 12/24/2023 15:22:28 pregabal in 50 mg capsule 2023 [facility] 591, [address], [address], 12/24/2023 15:22:28 pregabal in 100 mg capsule 2023 [facility] 591, [address], [address], 12/24/2023 15:22:27 Patient TargetsNo targets recorded. Patient Instructions Encounter Date Encounter Id Patient Instructions Last Modified By Organization Details Last Modified Time 12/24/2023 [id number] I spent >40 minutes caring for the patient today with direct counseling, coordinating care, extensive review of outside records, medication management, and documentation. [email or web address] Not available 12/27/2023 06:50:30 Reason for Referral Neurologist Referral for Res ting tremor Referring Physician: Jazmine Ospina, Rheumatology, Encounter Date: 12/24/2023 Procedures Surgical History Date Name Laterality Status Provider Name and Address Organization Details Recorded Time 10/28/19 24 Blade Biopsy w/ ED&C completed GIOVANNI PARKINSON PA-C [address] [place] [address], [phone], [facility] 10/28/2023 16:45:53 08/28/19 24 Lumbar Transforaminal Epidural Injection - Jordyn completed BENNETT SZYMANSKI MD [address] [place] [address], [phone], [facility] hospital 08/28/2023 15:27:13 01/02/20 23 Tympanogram completed Rebecca Harrison [facility] 01/01/2023 15:19:39 01/02/20 23 Audiogram completed Rebecca Harrison [facility] 01/01/2023 15:19:36 01/02/20 23 Cerumen removal - Instruments, Unilateral completed Cora Moores [facility] 01/01/2023 15:07:15 05/15/19 23 Sacroiliac Joint Injection - Jordyn completed BENNETT SZYMANSKI MD [address] [place] [address], [phone] 05/14/2022 14:28:25 12/15/19 22 lumbar spinal fusion completed Valeria Burch [facility] 04/06/2022 13:53:56 Other completed Lilia Madrigal [facility] 01/02/2017 12:22:54 Removal of gallbladder completed Lilia Madrigal [facility] 01/02/2017 12:23:06 Other completed Lilia Madrigla [facility] 01/02/2017 12:23:35 placement of stent in cardiac conduit completed [facility] 12/24/2023 14:39:35 procedure on back completed [facility] 12/24/2023 14:39:50 Carpal tunnel surgery completed [facility] 12/24/2023 14:40:07 extraction of cataract completed [facility] 12/24/2023 14:40:33 Imaging Results None recorded. Procedure Notes None recorded. Medical Equipment None Reported. Allergies Allergen ID Allergen Name Allergen Category Reaction Reaction Severity Criticality Documentation Date Start Date Code Code System Note Provider Name and Address Organization Details Recorded Time 154302 Macrobid medicatio n Not available Not available Not available 01/13/20162012 40636 1 RxNorm Comme nt: Creat ed By: Sam cintron;Kandy hahn Date: 12/03 11:09 :58 AM; Not Available [facility] 6 04:08:08 599977 aspirin medicatio n Not available Not available Not available 01/02/2017 1191 RxNorm Lilia lockett [facility] 7 12:26:21 Medications Name Sig Start Date Stop Date Status Note LastModified by Organization Details LastModified Time compound drug 10/02 completed Not Available Not Available Not Available [id number] .5mg-5ml/ dexametha sone0.5 10/02 completed Not Available [...] Not Available Vitals Date Recorded Body height Body mass index (BMI) Body weight Respiratory rate Heart rate Oxygen saturation Oxygen saturation in Arterial blood by Pulse oximetry Systolic blood pressure Diastolic blood pressure Provider Name and Address Organization Details Last Updated DateTime 4 162.56 cm 26.3 kg/m2 82083.6 3 g 14 /min 71 /min 95 % 95 % 136 mm[Hg] 70 mm[Hg] [facility] 4 14:42:19 Social History Question Answer Notes LastModified by [employer] Details LastModified Time Tobacco Smoking Status Never Smoker Lilia Madrigal [facility] 01/02/2017 12:22:47 What Is Your Level Of Alcohol Consumption? None Information not available 04/06/2022 Are You Currently Employed? No Information not available 04/06/2022 What Was The Date Of Your Most Recent Tobacco Screening? 12/24/2023 [email or web address] Information not available 12/24/2023 Have You Recently Traveled Abroad? No Information not available 04/06/2022 Sex: Female Functional Status Question Answer Note LastModified by Organ[employer]at [employer] Details LastModified Time Do you have difficulty [...] available 12/19 12:25:26 Medical History Condition Response Varicose Veins Y Diabetes N Autoimmune disease Y Squamous Cell Carcinoma N Hearing Loss Y Cancer N Eczema N Stroke N Melanoma N Depression N Acne N Skin Problems Y Osteoporosis/Osteopenia Y Basal Cell Carcinoma N Sleep Apnea Y Skin Cancer Y Heart Attack ([place]) Y Deep Vein Thrombosis Y Other Skin Condition Y Hypertension Y Osteoporosis Y Gynecological HistoryNo gynecological history recorded. Obstetrics History GPAL:G 0 P 0 0 0 0 Past Encounters Encounter ID Performer Location Encounter Start Date Encounter Closed Date Diagnosis/Indication Diagnosis SNOMED-CT Code Diagnosis ICD10 Code [id number] GIOVANNI PARKINSON PA-C [address] [address] 12/04/2023 13:40:23 12/04/2023 14:19:19 Methicillin resistant Staphylococcus aureus infection 119278454 A49.02 History of malignant neoplasm of skin 704503924 Z85.828 Milia 604706076 L72.0 [id number] [place] [address] [place], [place] [address] 12/24/2023 10:58:04 12/24/2023 11:51:31 [id number] JAZMINE OSPINA MD [facility] [address] [place] [address] 12/24/2023 13:58:37 12/28/2023 04:18:25 Seropositive rheumatoid arthritis 473657834 M05.9 Osteoarthr itis of multiple joints 665612444 M15.9 Long-term drug therapy 851802413 Z79.899 Cardiac se condary systemic amyloidosis 1913506807 I43 Lumbar radiculopathy 128 697463 M54.16 Idiopathic peripheral neuropathy 36911650 G60.9 Resting tremor 28170605 G25.2 Osteoporosis 40373688 M8 1.0 Health Concerns Section Related Observation LastModified by Organization Detai ls LastModified Time None Recorded Concern Status LastModified by Organization Details LastModified Time None Recorded Payers Encounter Date Sequence Insurance Name Policy Number Policy Gunter Covered Member ID Gunter Member ID Guarantor Name 12/24/2023 1 [place]ARE[place] ([place]ICARE[place] Chen Merritt [id number] Chen Merritt 12/24/2023 2 [facility] OPTIONS (MEDICARE SUPPLEMENT) Chen Merritt [id number] Chen Merritt Notes Date Note Type Note Provider Name and Address Organization Details Recorded Time 12/24/2023 text/html Chen Merritt is an 83 yo woman with past medical history of seronegative rheumatoid arthritis/psoriatic arthritis, osteoarthritis, 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 Her daughter is present with her at the appointment.She is a previous patient of mine from [facility] [place]. She says that her rheumatoid arthritis is [...] on Prolia for osteopenia.. Gets Prolia at [facility]. Most recent 09/16/23. No SE's. Labs showed mild elevation LFT, leukopenia and anemia. She is off of her vitamin D because she was told it was very high last time. JAZMINE OSPINA MD [address] [facility] [place], [address], Critical access hospital 12/27/2023 06:50:45 OBGyn Episode No OBEpisode recorded.
--- OUTSIDE RECORDS SUMMARY | 2024-01-26 15:09 | XMS_ITS | Continuity of Care Document ---
Author Organization [facility] [place] Address [address] [place] [address] Care Team Providers Care Roller Bearing Inspector Name Role Phone BENNETT SZYMANSKI Referring Provider [phone] ISREAL NUNEZ Primary Care Provider GIOVANNI PARKINSON System Manager ALEISHA CROOK Piano Teacher Assessment No assessment recorded. Plan of Treatment [...] available Lab culture, bacteria l [address] [facility], [address] [place] [address], [phone], 12/05/2023 13:47:35 Referral None recorded . Procedures None recorded . Surgeries None recorded . Imaging None recorded . Medication Orders None recorded . Patient TargetsNo targets recorded. Patient InstructionsNo instructions recorded. Reason for Referral None Reported. Procedures Surgical History Date Name Laterality Status Provider Name and Address Organization Details Recorded Time 10/28/19 24 Blade Biopsy w/ ED&C completed GIOVANIN PARKINSON PA-C [address] [place] [address], [phone], [facility] 10/28/2023 16:45:53 08/28/19 24 Lumbar Transforaminal Epidural Injection - Jordyn completed BENNETT SZYMANSKI MD [address] [place], [address], [facility] 08/28/2023 15:27:13 01/02/20 23 [facility]/01[facility]23 15:19:39 01/02/20 23 [facility] 01/01/2023 15:19:36 01/02/20 23 Cerumen removal - Instruments, Unilateral completed Cora Cope [facility] 01/01/2023 15:07:15 05/15/19 23 Sacroiliac Joint Injection - Jordyn completed BENNETT SZYMANSKI MD [address] [place], [address], [facility] 05/14/2022 14:28:25 12/15/19 22 lumbar spinal fusion completed Valeria Burch [facility] 04/06/2022 13:53:56 Other completed [facility] 01/02/2017 12:22:54 Removal of gallbladder completed [facility] 01/02/2017 12:23:06 Other completed [facility] 01/02/2017 12:23:35 placement of stent in cardiac conduit completed [facility] 12/24/2023 14:39:35 procedure on back completed [facility] 12/24/2023 14:39:50 Carpal tunnel surgery completed [facility] 12/24/2023 14:40:07 extraction of cataract completed [facility] 12/24/2023 14:40:33 Imaging Results None recorded. Procedure Notes None recorded. Medical Equipment None Reported. Allergies Allergen ID Allergen Name Allergen Category Reaction Reaction Severity Criticality Documentation Date Start Date Code Code System Note Provider Name and Address Organization Details Recorded Time 901777 Macrobid medicatio n Not available Not available Not available 01/13/20162012 30683 1 RxNorm Comme nt: Creat ed By: Fishe r Jeannette any;C reate d Date: 12/03 11:09 :58 AM; Not Available [facility] 6 04:08:08 107910 aspirin medicatio n Not available Not available Not available 01/02/2017 1191 RxNorm Lilia Bowersholz [facility] 7 12:26:21 Medications Name Sig Start Date Stop Date Status Note LastModified by Organization Details LastModified Time compound drug 10/02 completed Not Available Not Available Not Available .5mg-5ml/ dexametha sone0.5 10/02 completed Not Available [...] tablet active Medicati on Descript ion: multivit emndoza with minerals ; Route:or al; refills: 0 Not Available Not Available Not Available Entresto 24 mg-26 mg tablet TAKE 1 TABLET BY MOUTH TWICE DAILY 10/02 completed Not Available Not Available Not Available Vitals None Recorded Social History Question Answer Notes LastModified by Organizat ion Details LastModified Time Tobacco Smoking Status Never Smoker Lilia Bowersholz [facility] 01/02/2017 12:22:47 What Is Your Level [...] Hearing Loss Y Osteoporosis/Osteopenia Y Heart Attack ([place]) Y Diabetes N Eczema N Basal Cell Carcinoma N Sleep Apnea Y Hypertension Y Osteoporosis Y Gynecological HistoryNo gynecological history recorded. Obstetrics History GPAL:G 0 P 0 0 0 0 Past Encounters Encounter ID Performer Location Encounter Start Date Encounter Closed Date Diagnosis/Indication Diagnosis SNOMED-CT Code Diagnosis ICD10 Code [id number] GIOVANNI PARKINSON PA-C [address] [place] [address] 12/04/2023 13:40:23 12/04/2023 14:19:19 Methicillin resistant Staphylococcus aureus infection 842477795 A49.02 History of malignant neoplasm of skin 884017734 Z85.828 Milia 898326385 L72.0 Health Concerns Section Related Observation LastModified by Organization Detai ls LastModified Time None Recorded Concern Status LastModified by Organization Details LastModified Time None Recorded Payers Encounter Date Sequence Insurance Name Policy Number Policy Gunter Covered Member ID Gunter Member ID Guarantor Name 12/04/2023 1 [place]ARE[place] Chen Merritt [id number] Chen Merritt 12/04/2023 2 [facility] OPTIONS (MEDICARE SUPPLEMENT) Chen Merritt [id number] Chen Merritt Notes Date Note Type Note Provider Name and Address Organization Details Recorded Time 12/04/2023 text/html mrsa reswabtx'd with mupirocin and doxy GIOVANNI PARKINSON PA-C [facility] [place], [address], [facility] 12/04/2023 21:47:26 OBGyn Episode No OBEpisode recorded.
--- OUTSIDE RECORDS SUMMARY | 2024-01-26 15:09 | XMS_ITS | Continuity of Care Document ---
Author Organization [facility] LOKI Camejo [place] Address [address] [place] [address] Care Team Providers Care Consulting Analyst Name Role Phone BENNETT SZYMANSKI Referring Provider [phone] ISREAL NUNEZ Primary Care Provider [phone] GIOVANNI PARKINSON Energy Risk Management Analyst ALEISHA CROOK Rag Room Supervisor [phone] Assessment No assessment recorded. Plan of [...] Not available Lab culture, bacteria l 2023 [facility], [address] [place] [address], [phone], 10/29/2023 14:20:56 surgical patholog y study 2023 024 [facility], [address] [place] [address], [phone], 10/29/2023 12:07:04 Referral None recorded . Procedures None recorded . Surgeries None recorded . Imaging None recorded . Medication Orders fluorour acil 5 % topical cream 2023 024 [facility], [address] [place] [address], [address], 12/24/2023 14:38:56 Patient TargetsNo targets recorded. Patient InstructionsNo instructions recorded. Reason for Referral None Reported. Procedures Surgical History Date Name Laterality Status Provider Name and Address Organization Details Recorded Time 10/28/19 24 Blade Biopsy w/ ED&C completed GIOVANNI PARKINSON PA-C [address] [place] [address], [address], [facility] 10/28/2023 16:45:53 08/28/19 24 Lumbar Transforaminal Epidural Injection - Jordyn completed BENNETT SZYMANSKI MD [address] [place] [address], [address], [facility] 08/28/2023 15:27:13 01/02/20 23 Tympanogram completed [facility] 01/01/2023 15:19:39 01/02/20 23 Audiogram completed [facility] 01/01/2023 15:19:36 01/02/20 23 Cerumen removal - Instruments, Unilateral completed Cora Prisca [facility] 01/01/2023 15:07:15 05/15/19 23 Sacroiliac Joint Injection - Jordyn completed BENNETT SZYMANSKI MD [address] [place] [address], [address], [facility] 05/14/2022 14:28:25 12/15/19 22 lumbar spinal fusion completed Valeria Burch [facility] 04/06/2022 13:53:56 Other completed Lilia Madrigal [facility] 01/02/2017 12:22:54 Removal of gallbladder completed Lilia Madrigal [facility] 01/02/2017 12:23:06 Other completed Lilia Madrigal [facility] 01/02/2017 12:23:35 placement of stent in cardiac conduit completed [facility] 12/24/2023 14:39:35 procedure on back completed [facility] 12/24/2023 14:39:50 Carpal tunnel surgery completed [facility] 12/24/2023 14:40:07 extraction of cataract completed [facility] 12/24/2023 14:40:33 Imaging Results None recorded. Procedure Notes None recorded. Medical Equipment None Reported. Allergies Allergen ID Allergen Name Allergen Category Reaction Reaction Severity Criticality Documentation Date Start Date Code Code System Note Provider Name and Address Organization Details Recorded Time 722880 Macrobid medicatio n Not available Not available Not available 01/13/20162012 60975 1 RxNorm Comme nt: Creat ed By: Sam Machado any;Kandy hahn Date: 12/03 11:09 :58 AM; Not Available [facility] 6 04:08:08 877565 aspirin medicatio n Not available Not available Not available 01/02/2017 1191 RxNorm Lilia Bowersholz [facility] 7 12:26:21 Medications Name Sig Start Date Stop Date Status Note LastModified by Organization Details LastModified Time compound drug 10/02 completed Not Available Not Available Not Available [id number] .5mg-5ml/ dexametha sone0.5 10/02 completed Not Available [...] Updated DateTime 10/28/2023 162.56 cm Susan Hidalgo [facility] 10/28/2023 14:10:24 Social History Question Answer Notes LastModified by Organizat ion Details LastModified Time Tobacco Smoking Status Never Smoker Lilia lockett, [facility] 01/02/2017 12:22:47 What Is Your [...] available 12/19 12:25:26 Medical History Condition Response Diabetes N Varicose Veins Y Autoimmune disease Y Squamous Cell Carcinoma N Hearing Loss Y Eczema N Cancer N Stroke N Melanoma N Depression N Acne N Skin Problems Y Osteoporosis/Osteopenia Y Basal Cell Carcinoma N Sleep Apnea Y Skin Cancer Y Heart Attack ([place]) Y Deep Vein Thrombosis Y Other Skin Condition Y Hypertension Y Osteoporosis Y Gynecological HistoryNo gynecological history recorded. Obstetrics History GPAL:G 0 P 0 0 0 0 Past Encounters Encounter ID Performer Location Encounter Start Date Encounter Closed Date Diagnosis/Indication Diagnosis SNOMED-CT Code Diagnosis ICD10 Code [id number] YAIR MARTELL PA-C [facility] [address] [place] [address] 10/03/2023 12:54:44 10/03/2023 15:11:04 Lumbar radiculopathy 444982437 M54.16 Displaceme nt of lumbar intervertebral disc 5313873003 M51.26 Spinal farheen nosis of lumbar region 69168226 M48.062 Lumbar post-laminectomy syndrome 662447994 M96.1 [id number] GIOVANNI PARKINSON PA-C [address] [address] 10/28/2023 14:01:16 10/28/2023 14:48:47 Multiple benign melanocytic nevi 328632230 D22.5 L81.4 L82.1 D18.01 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 53470478 D48.5 Bacterial infection of skin 139520444 L08.9 Health Concerns Section Related Observation LastModified by Organization Detai ls LastModified Time None Recorded Concern Status LastModified by Organization Details LastModified Time None Recorded Payers Encounter Date Sequence Insurance Name Policy Number Policy Gunter Covered Member ID Gunter Member ID Guarantor Name 10/28/2023 1 [place] Chen Merritt [id number] Chen Merritt 10/28/2023 2 [employer] OPTIONS (MEDICARE SUPPLEMENT) Chen Merritt [id number] Chen Merritt Notes Date Note Type Note Provider Name and Address Organization Details Recorded Time 10/28/2023 text/html Re establish ptFull skin examI have spots on arms, inframammary, back, nose, face No hx of skin cancerLast seen- 12/2019 ([place]) GIOVANNI PARKINSON PA-C [address] [place], [address], [facility] 10/28/2023 16:47:03 OBGyn Episode No OBEpisode recorded.
--- OUTSIDE RECORDS SUMMARY | 2024-01-26 15:09 | XMS_ITS | Continuity of Care Document ---
Author Organization [facility] ENT [facility] Address [address] [place] [address] Care Team Providers Care Area Attendant Name Role Phone BENNETT SZYMANSKI Referring Provider ISREAL NUNEZ Primary Care Provider [phone] GIOVANNI PARKNISON Fashion Patternmaker ALEISHA CROOK Trimmer Operator Three Knife Assessment No assessment recorded. Plan of Treatment [...] Not available Not available Not available Lab None recorded . Referral None recorded . Procedures None recorded . Surgeries None recorded . Imaging None recorded . Medication Orders None recorded . Patient TargetsNo targets recorded. Patient Instructions Encounter Date Encounter Id Patient Instructions Last Modified By Organization Details Last Modified Time 12/24/2023 [id number] {{Walk in Repair Drop off 6 month* Regular}} hearing aid check. Patient reports {{no complaints* no sound weak sound intermitten t sound feedback br oken}} from {{both aids* the left aid the right aid}}. 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 Not available 12/24/2023 11:50:46 Reason for Referral None Reported. Procedures Surgical History Date Name Laterality Status Provider Name and Address Organization Details Recorded Time 10/28/19 24 Blade Biopsy w/ ED&C completed GIOVANNI PARKINSON PA-C [address] [place] [address], [phone], [facility] 10/28/2023 16:45:53 08/28/19 24 Lumbar Transforaminal Epidural Injection - Jordyn completed BENNETT SZYMANSKI MD [address] [place] [address], [phone], [facility] 08/28/2023 15:27:13 01/02/20 23 Tympanogram completed [facility] 01/01/2023 15:19:39 01/02/20 23 Audiogram completed [facility] 01/01/2023 15:19:36 01/02/20 23 Cerumen removal - Instruments, Unilateral completed Cora Prisca [facility] 01/01/2023 15:07:15 05/15/19 23 Sacroiliac Joint Injection - Jordyn completed BENNETT SZYMANSKI MD [address] [place] [address], [phone], [facility] 05/14/2022 14:28:25 12/15/19 22 lumbar spinal fusion completed Valeria Burch [facility] 04/06/2022 13:53:56 Other completed Lilia Madrigal [facility] 01/02/2017 12:22:54 Removal of gallbladder completed Lilia Madrigal [facility] 01/02/2017 12:23:06 Other completed Lilia Madrigal [facility] 01/02/2017 12:23:35 placement of stent in cardiac conduit completed [facility] 12/24/2023 14:39:35 procedure on back completed [facility] 12/24/2023 14:39:50 Carpal tunnel surgery completed [facility] 12/24/2023 14:40:07 extraction of cataract completed [facility] 12/24/2023 14:40:33 Imaging Results None recorded. Procedure Notes None recorded. Medical Equipment None Reported. Allergies Allergen ID Allergen Name Allergen Category Reaction Reaction Severity Criticality Documentation Date Start Date Code Code System Note Provider Name and Address Organization Details Recorded Time 842441 Macrobid medicatio n Not available Not available Not available 01/13/20162012 56989 1 RxNorm Comme nt: Creat ed By: Sam Machado any;C reate d Date: 12/03 11:09 :58 AM; Not Available [facility] 6 04:08:08 982227 aspirin medicatio n Not available Not available Not available 01/02/2017 1191 RxNorm Lilia Madrigal [facility] 7 12:26:21 Medications Name Sig Start Date Stop Date Status Note LastModified by Organization Details LastModified Time compound drug 10/02 completed Not Available Not Available Not Available [id number] .5mg-5ml/ dexametha sone0.5 10/02 completed Not Available [...] 5%/Calci potriene 0.005% 1:1 cream)Pt phone number [phone] Not Available Not Available Not Available prednison [...] Updated DateTime 4 162.56 cm 26.3 kg/m2 89641.6 3 g 14 /min 71 /min 95 % 95 % 136 mm[Hg] 70 mm[Hg] [facility] 4 14:42:19 Social History Question Answer Notes LastModified by Organ[employer]orax[employer] ion Details LastModified Time Tobacco Smoking Status Never Smoker Lilia Madrigal [facility] 01/02/2017 12:22:47 What Is Your Level [...] Apnea Y Skin Cancer Y Heart Attack (ME) Y Deep Vein Thrombosis Y Other Skin Condition Y Hypertension Y Osteoporosis Y Gynecological HistoryNo gynecological history recorded. Obstetrics History GPAL:G 0 P 0 0 0 0 Past Encounters Encounter ID Performer Location Encounter Start Date Encounter Closed Date Diagnosis/Indication Diagnosis SNOMED-CT Code Diagnosis ICD10 Code [id number] GIOVANNI PARKINSON PA-C [place] [id number] 12/04/2023 13:40:23 12/04/2023 14:19:19 Methicillin resistant Staphylococcus aureus infection 400697646 A49.02 History of malignant neoplasm of skin 402987755 Z85.828 [place] 203958186 L72.0 [id number] [facility] [address] 12/24/2023 10:58:04 12/24/2023 11:51:31 [id number] ALEISHA CROOK MD RHEUMATOL OGY [place] [id number] 12/24/2023 13:58:37 12/28/2023 04:18:25 Seropositive rheumatoid arthritis 786291025 M05.9 Osteoarthr itis of multiple joints 352709561 M15.9 Long-term drug therapy 633121864 Z79.899 Cardiac se condary systemic amyloidosis 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 Notes Date Note Type Note Provider Name [...] patient of mine from [facility]. She says that her rheumatoid arthritis is [...] on Prolia for osteopenia.. Gets Prolia at [facility]. Most recent 09/16/23. No SE's. Labs showed mild elevation LFT, leukopenia and anemia. She is off of her vitamin D because she was told it was very high last time. ALEISHA CROOK MD [address] [place] [address], [phone], [facility] 12/27/2023 06:50:45 OBGyn Episode No OBEpisode recorded.
--- NOTE | 2024-01-26 17:03 | EXP.PN ---
Subjective *Date: 01/26/24 *Time: 17:03 Interval history: Patient is feeling better today, but continues to be quite weak. Started liquid diet with good toleration. Exam Data for Last 24 hours Vital signs and Labs for Last 24 Hours: Temp Pulse Resp BP Pulse Ox O2 Del Method O2 Flow Rate 98.4 F 110 H 20 131/76 87 L Room Air 2 01/26/24 16:00 01/26/24 16:00 01/26/24 16:00 01/26/24 16:00 01/26/24 16:00 01/26/24 16:00 01/26/24 08:00 Laboratory Results - last 24 hr 01/25/24 09:40: Urine Color Yellow, Urine Appearance Clear, Urine pH 7.0, Ur Specific [place] 1.010, Urine Protein Negative, Urine Glucose (UA) Negative, Urine Ketones Negative, Urine Blood Negative, Urine Nitrate Positive A, Urine Bilirubin Negative, Urine Urobilinogen 4.0, Ur Leukocyte Esterase 1+ A, Urine RBC None, Urine WBC 5-10, Ur Squamous Epith Cells 3-5, Urine Bacteria 1+ 01/25/24 22:44: WBC 5.5, RBC 3.53 L, Hgb 12.0 L, Hct 36.0 L, MCV 101.8 H, MCH 34.0 H, MCHC 33.4, RDW 18.9 H, Plt Count 125 L, MPV 9.6, Neut % (Auto) 80.2 H, Lymph % (Auto) 13.7, [place] % (Auto) 4.0, Eos % (Auto) 1.4, Baso % (Auto) 0.7, Neut # (Auto) 4.4, Lymph # (Auto) 0.8, [place] # (Auto) 0.2, Eos # (Auto) 0.1, Baso # (Auto) 0.0, Sodium 140, Potassium 4.1, Chloride 106, Carbon Dioxide 31 H, Anion Gap 7.1, BUN 20 H, Creatinine 0.90, Estimated Creat Clear 45, Estimated GFR 60, Est GFR ( Amer) 72, Glucose 121 H, Calcium 8.4, Magnesium 1.7, Total Bilirubin 0.9, AST 66 H, ALT 31, Alkaline Phosphatase 57, Total Protein 6.1 L, Albumin 3.6, Globulin 2.5, Albumin/Globulin Ratio 1.4, Lipase 95, HIV 1&2 Antibody Rapid Nonreactive 01/26/24 00:19: SARS-CoV-2 (PCR) Not detected, Influenza A Untype (PCR) Not detected, Influenza Type B (PCR) Not detected 01/26/24 06:50: WBC 3.3 L D, RBC 3.16 L, Hgb 10.8 L, Hct 32.6 L, MCV 103.2 H, MCH 34.1 H, MCHC 33.1, RDW 18.9 H, Plt Count 120 L, MPV 10.2, Neut % (Auto) 62.1, Lymph % (Auto) 29.9, [place] % (Auto) 6.2, Eos % (Auto) 1.6, Baso % (Auto) 0.2, Neut # (Auto) 2.1, Lymph # (Auto) 1.0, [place] # (Auto) 0.2, Eos # (Auto) 0.1, Baso # (Auto) 0.0, Sodium 138, Potassium 3.7, Chloride 111 H, Carbon Dioxide 26, Anion Gap 4.7 L, BUN 15, Creatinine 0.80, Estimated Creat Clear 45, Estimated GFR 68, Est GFR ( Amer) 83, Glucose 86 D, Calcium 7.9 L, Magnesium 1.7 I & O for Last 24 hours: Intake & Output 01/23/24 01/24/24 01/25/24 01/26/24 23:59 23:59 23:59 23:59 Intake Total 570 / 570 Balance 570 / 570 Weight 68.039 kg 68 kg Constitutional Constitutional: no acute distress *Routine HEENT Exam Head: Present normocephalic Eye: Present EOMI and PERRL ENT: Present mucous membranes moist *Routine Neck Exam Neck: Present supple; Absent lymphadenopathy *Routine Respiratory Exam Respiratory: Present CTA bilaterally *Routine Cardiovascular Exam Cardiovascular: Present RRR *Routine Abdominal Exam Abdominal: Present soft and normoactive bowel sounds; Absent tenderness *Routine Extremities Exam Extremities: Absent cyanosis, clubbing or edema *Routine Skin Exam Skin: Present warm; Absent rash *Routine Neurological Exam Neurological: Present alert and oriented X3 Assessment and Plan *Assessment and plan (1) SBO (small bowel obstruction): Status: Acute Category: Medical Code(s): K56.609 - Unspecified intestinal obstruction, unspecified as to partial versus complete obstruction (2) HTN (hypertension), benign: Status: Acute Category: Medical Code(s): I10 - Essential (primary) hypertension (3) Rheumatoid arthritis: Status: Inactive Category: Medical Code(s): M06.9 - Rheumatoid arthritis, unspecified Plan This is an 83-year-old female who identifies a sick contact before symptomatology started. She reports a chronic history of rheumatoid arthritis on immunosuppressive therapy. Problems addressed as follows: #Possible small bowel obstruction Gastroenteritis Previous cholecystectomy CT abdomen and pelvis with small possible bowel obstruction. However, patient has had been having diarrhea for the past couple days with concomitant nausea/vomiting suggesting gastroenteritis. ? Started clear liquid diet with good toleration. Passing gas with appropriate bowel sounds, no abdominal tenderness. No bowel movement yet. ? Continue IV NS at 75 mL/h. ? Follow-up stool PCR. ? Follow-up small bowel series tomorrow morning. N.p.o. at midnight. #UTI ? UA grossly abnormal. Pending urine culture. ? Ceftriaxone day 1. Hypertension Routine blood pressure monitoring Beta-shivam therapy Calcium channel shivam therapy Rheumatoid arthritis Immunocompromise state Weekly immunosuppressive therapy Pain control Advanced age Fall precautions Routine nursing interaction Full code Lovenox 40 mg
[2024-01-26] MEDS: LACTATED RINGERS 1000ML 1,000 ML 75 ML IV (18:12)
[2024-01-26] MEDS: ATORVASTATIN 40MG TABLET 40 MG PO (20:36)
[2024-01-26] MEDS: PREGABALIN 50MG CAPSULE 50 MG PO (20:36)
[2024-01-26] MEDS: PANTOPRAZOLE 40MG TABLET 40 MG PO (20:36)
[2024-01-26] MEDS: ACETAMINOPHEN 500MG TAB 1000 MG PO (20:36)
[2024-01-27 04:00] VITALS: BP 106/62; PULSE 99; RESP 16; TEMP 36.5; O2SAT 95; BMI 25.0
--- NOTE | 2024-01-27 04:48 | PC.NURSE ---
Alert and oriented. Complained of legs hurting, chronic pain, treated per MAR. No bowel movement. Passing a lot of gas per patient. Ambulates to the restroom with 1 assist using walker. Continent using toilet. Abdomen soft and nontender. Pull alarm on. Call light in reach.
[2024-01-27 06:59] LABS: Basophils % 0.4 % (0.1-2.0); Eosinophils # 0.3 K/mm3 (0.0-0.4); Eosinophils % 8.7 % (0.1-12.0); Hematocrit 31.4 % (37.0-47.0); Hemoglobin 10.3 g/dL (12.2-16.2); Lymphocytes % 31.7 % (10-50); Mean Corpuscular HGB Conc 32.8 g/dL (31.8-35.4); Mean Corpuscular Hemoglobin 34.2 pg (27.0-31.2); Mean Corpuscular Volume 104.2 fl (81-99); Mean Platelet Volume 9.5 fl (7.4-10.4); Monocytes # 0.2 K/mm3 (0.1-1.0); Neutrophils # 1.7 K/mm3 (1.8-7.8); Neutrophils % 52.2 % (37.0-80.0); Platelet Count 142 K/mm3 (142-424); Red Blood Count 3.01 M/mm3 (4.20-5.40); Red Cell Distribution Width 18.8 % (11.5-17.5); White Blood Count 3.2 K/mm3 (4.8-10.8)
--- NOTE | 2024-01-27 07:00 | FL_ITS ---
FINAL REPORT CLINICAL HISTORY: Eval for SBO FINDINGS: SMALL BOWEL FOLLOW THROUGH HISTORY: . Acute generalized abdominal pain. Evaluate for small bowel obstruction. PROCEDURE: The patient ingested Gastrografin. A total 7 serial overhead radiographs were obtained. FINDINGS: There are dilated loops of small bowel up to 3 cm. Contrast identified in the colon on the one and half hour radiograph. IMPRESSION: Distended loops of small bowel with normal transit time to the colon. Findings may be related to ileus or partial small bowel obstruction. Films reviewed , interpreted and dictated by Dr. Dubon. Transcribed by Watson Lott PA-C. Reviewed, Interpreted and Dictated by Gil Dubon III, MD Transcribed by THIAGO Fontana Authenticated and [facility]
[2024-01-27 07:03] LABS: Albumin Level 2.5 g/dl (3.5-5.0); Chloride 111 mmol/L (98-107); Potassium 3.8 mmoL/L (3.5-5.1); Sodium 139 mmol/L (136-145)
[2024-01-27 07:06] LABS: Alanine Aminotransferase 18 U/L (12-78); Albumin/Globulin Ratio 1.2 (1.1-1.8); Alkaline Phosphatase 41 U/L (38-126); Anion Gap 3.8 mEq/L (5-15); Aspartate Amino Transferase 38 U/L (14-36); Bilirubin,Total 0.6 mg/dl (0.2-1.3); Blood Urea Nitrogen 17 mg/dl (7-17); Carbon Dioxide 28 mmol/L (22.0-30.0); Creatinine Clearance Estimated 45 mL/min (50-200); Estimated Glomerular Filt Rate 68 ml/min (>60); GFR (African American) 83 ML/MIN (>60); Globulin 2.1 g/dL (1.3-3.2); Total Protein,Serum 4.6 g/dl (6.3-8.2)
[2024-01-27 07:07] LABS: Calcium 7.2 mg/dl (8.4-10.2); Glucose 76 mg/dl (74-100)
[2024-01-27 07:37] LABS: Thyroid Stimulating Hormone 1.54 uIU/mL (0.465-4.68)
[2024-01-27 08:00] VITALS: BP 133/76; PULSE 48; RESP 16; TEMP 36.5; O2SAT 92
[2024-01-27] MEDS: dilTIAZem HCL 180MG CAP.ER.24H 180 MG PO (08:54)
[2024-01-27] MEDS: ENOXAPARIN 40MG/0.4ML SYRINGE 40 MG SUBCUT (08:54)
[2024-01-27] MEDS: METOPROLOL TARTRATE 25MG TABLET 25 MG PO ×2 (08:54→20:59)
[2024-01-27] MEDS: ASPIRIN 81MG CHEWABLE TABLET 81 MG PO (08:54)
[2024-01-27] MEDS: POLYETHYLENE GLYCOL 3350 17 GM PACKET PO (08:55)
[2024-01-27] MEDS: ACETAMINOPHEN 500MG TAB 1000 MG PO ×3 (09:07→21:03)
[2024-01-27] MEDS: PREGABALIN 100MG CAPSULE 100 MG PO ×2 (09:08→20:59)
[2024-01-27] MEDS: LACTATED RINGERS 1000ML 1,000 ML 75 ML IV (09:41)
[2024-01-27] MEDS: ONDANSETRON 4MG/2ML VIAL 4 MG IV (11:02)
[2024-01-27] MEDS: CEFTRIAXONE 1 GM 1 GM in 0.9 % SODIUM CHLORIDE 50 ML IV (11:05)
[2024-01-27 11:19] LABS: Folate 8.62 ng/mL
[2024-01-27] MEDS: DIATRIZOATE MEGLUMINE(GASTROGRAFIN) 66%-10% 120ML 480 ML PO (12:27)
--- NOTE | 2024-01-27 15:43 | PC.NURSE ---
Pt is A&O x4. She has had one large episode of diarrhea today followed by multiple small liquid stools. She has also c/o n/v. Emesis noted to be green bile. Pt has ambulated with walker and assist x1 to BR and back to bed. Tolerated well. Has had a shower today. Call light within reach. Family at bedside.
[2024-01-27 16:00] VITALS: BP 131/69; PULSE 110; RESP 17; TEMP 36.8; O2SAT 93
--- NOTE | 2024-01-27 17:49 | P.PN_ITS ---
Subjective *Date: 01/27/24 *Time: 17:49 Interval history: Patient had an episode of bilious nausea/vomiting followed by copious diarrhea. N.p.o. at this time. Exam Data for Last 24 hours Vital signs and Labs for Last 24 Hours: Temp Pulse Resp BP Pulse Ox O2 Del Method O2 Flow Rate 98.2 F 110 H 17 131/69 93 L Nasal Cannula 2 01/27/24 16:00 01/27/24 16:00 01/27/24 16:00 01/27/24 16:00 01/27/24 16:00 01/27/24 16:00 01/27/24 09:00 Laboratory Results - last 24 hr 01/25/24 09:40: Urine Color Yellow, Urine Appearance Clear, Urine pH 7.0, Ur Specific [place] 1.010, Urine Protein Negative, Urine Glucose (UA) Negative, Urine Ketones Negative, Urine Blood Negative, Urine Nitrate Positive A, Urine Bilirubin Negative, Urine Urobilinogen 4.0, Ur Leukocyte Esterase 1+ A, Urine RBC None, Urine WBC 5-10, Ur Squamous Epith Cells 3-5, Urine Bacteria 1+ 01/27/24 06:19: WBC 3.2 L, RBC 3.01 L, Hgb 10.3 L, Hct 31.4 L, MCV 104.2 H, MCH 34.2 H, MCHC 32.8, RDW 18.8 H, Plt Count 142, MPV 9.5, Neut % (Auto) 52.2, Lymph % (Auto) 31.7, [place] % (Auto) 7.0, Eos % (Auto) 8.7, Baso % (Auto) 0.4, Neut # (Auto) 1.7 L, Lymph # (Auto) 1.0, [place] # (Auto) 0.2, Eos # (Auto) 0.3, Baso # (Auto) 0.0, Sodium 139, Potassium 3.8, Chloride 111 H, Carbon Dioxide 28, Anion Gap 3.8 L, BUN 17, Creatinine 0.80, Estimated Creat Clear 45, Estimated GFR 68, Est GFR ( Amer) 83, Glucose 76, Calcium 7.2 L, Total Bilirubin 0.6, AST 38 H D, ALT 18 D, Alkaline Phosphatase 41, Total Protein 4.6 L, Albumin 2.5 L D , Globulin 2.1, Albumin/Globulin Ratio 1.2, Folate 8.62, TSH 1.54 I & O for Last 24 hours: Intake & Output 01/24/24 01/25/24 01/26/24 01/27/24 23:59 23:59 23:59 23:59 Intake Total 1586 / 1586 1787 / 1787 Output Total 0 / 0 Balance 1586 / 1586 1787 / 1787 Weight 68.039 kg 68 kg 68 kg Microbiology Reports for the Last 24 Hours: Microbiology 01/25/24 09:40 Urine,Clean Catch Urine Culture - Preliminary Gram Negative Rods 01/26/24 00:40 Blood Blood Culture - Preliminary NO GROWTH AFTER 24 HOURS 01/26/24 00:40 Blood Blood Culture - Preliminary NO GROWTH AFTER 24 HOURS Constitutional Constitutional: no acute distress *Routine HEENT Exam Head: Present normocephalic Eye: Present EOMI and PERRL ENT: Present mucous membranes moist *Routine Neck Exam Neck: Present supple; Absent lymphadenopathy *Routine Respiratory Exam Respiratory: Present CTA bilaterally *Routine Cardiovascular Exam Cardiovascular: Present RRR *Routine Abdominal Exam Abdominal: Present soft and normoactive bowel sounds; Absent tenderness Comments: High-pitched bowel sounds. Mildly distended abdomen. *Routine Extremities Exam Extremities: Absent cyanosis, clubbing or edema *Routine Skin Exam Skin: Present warm; Absent rash *Routine Neurological Exam Neurological: Present alert and oriented X3 Assessment and Plan *Assessment and plan (1) SBO (small bowel obstruction): Status: Acute Category: Medical Code(s): K56.609 - Unspecified intestinal obstruction, unspecified as to partial versus complete obstruction (2) HTN (hypertension), benign: Status: Acute Category: Medical Code(s): I10 - Essential (primary) hypertension (3) Rheumatoid arthritis: Status: Inactive Category: Medical Code(s): M06.9 - Rheumatoid arthritis, unspecified Plan This is an 83-year-old female who identifies a sick contact before symptomatology started. She reports a chronic history of rheumatoid arthritis on immunosuppressive therapy. Problems addressed as follows: # Ileus versus partial SBO #Gastroenteritis Previous cholecystectomy CT abdomen and pelvis with small possible bowel obstruction. However, patient has had been having diarrhea for the past couple days with concomitant nausea/vomiting suggesting gastroenteritis. ? Patient had good toleration with clear liquid diet yesterday, however after small bowel series today patient had an episode of bilious nausea/vomiting. She subsequently had copious diarrhea. ? The symptoms suggest partial SBO. N.p.o. at this time. ? Small bowel series showed distended loops with normal transit time, suggesting ileus versus partial SBO. ? Continue IV NS at 75 mL/h. ? Continue n.p.o. at this time, continue to follow-up on bowel movements. Can trial clear liquid diet tomorrow. #UTI ? UA grossly abnormal. Urine culture growing gram-negative rods, pending speciation and sensitivities. ? Ceftriaxone day 2. Hypertension Routine blood pressure monitoring Beta-shivam therapy Calcium channel shivam therapy Rheumatoid arthritis Immunocompromise state Weekly immunosuppressive therapy Pain control Advanced age Fall precautions Routine nursing interaction Full code Lovenox 40 mg
[2024-01-27 20:00] VITALS: BP 137/73; PULSE 73; RESP 18; TEMP 36.4; O2SAT 95
[2024-01-27] MEDS: ATORVASTATIN 40MG TABLET 40 MG PO (20:59)
[2024-01-27] MEDS: PREGABALIN 50MG CAPSULE 50 MG PO (20:59)
[2024-01-27] MEDS: PANTOPRAZOLE 40MG TABLET 40 MG PO (20:59)
[2024-01-28] MEDS: LACTATED RINGERS 1000ML 1,000 ML 75 ML IV (01:19)
[2024-01-28 04:00] VITALS: BP 121/75; PULSE 99; RESP 16; TEMP 36.4; O2SAT 98; BMI 25.0
--- NOTE | 2024-01-28 05:08 | PC.NURSE ---
Patient alert and oriented x4 this shift. Tolerating 2L NC well. Patient has had 2 small bowel movements with diarrhea consistency this shift. No complaints of nausea. Abdomen soft, non-tender with active bowel sounds. Call light within reach.
[2024-01-28] MEDS: ACETAMINOPHEN 500MG TAB 1000 MG PO ×2 (06:44→17:17)
[2024-01-28 07:38] LABS: Basophils % 0.4 % (0.1-2.0); Eosinophils # 0.1 K/mm3 (0.0-0.4); Eosinophils % 1.8 % (0.1-12.0); Hematocrit 32.8 % (37.0-47.0); Hemoglobin 10.7 g/dL (12.2-16.2); Lymphocytes # 0.8 K/mm3 (0.7-4.5); Lymphocytes % 21.4 % (10-50); Mean Corpuscular HGB Conc 32.7 g/dL (31.8-35.4); Mean Corpuscular Hemoglobin 34.5 pg (27.0-31.2); Mean Corpuscular Volume 105.6 fl (81-99); Mean Platelet Volume 9.3 fl (7.4-10.4); Monocytes # 0.2 K/mm3 (0.1-1.0); Monocytes % 5.1 % (1.7-9.3); Neutrophils # 2.8 K/mm3 (1.8-7.8); Neutrophils % 71.4 % (37.0-80.0); Platelet Count 129 K/mm3 (142-424); Red Blood Count 3.11 M/mm3 (4.20-5.40); Red Cell Distribution Width 19.2 % (11.5-17.5); White Blood Count 3.9 K/mm3 (4.8-10.8)
[2024-01-28 07:48] LABS: Chloride 116 mmol/L (98-107)
[2024-01-28 07:49] LABS: Albumin Level 3.2 g/dl (3.5-5.0); Potassium 4.3 mmoL/L (3.5-5.1); Sodium 147 mmol/L (136-145)
[2024-01-28 07:52] LABS: Alanine Aminotransferase 21 U/L (12-78); Albumin/Globulin Ratio 1.5 (1.1-1.8); Alkaline Phosphatase 41 U/L (38-126); Anion Gap 11.3 mEq/L (5-15); Aspartate Amino Transferase 47 U/L (14-36); Bilirubin,Total 0.7 mg/dl (0.2-1.3); Blood Urea Nitrogen 23 mg/dl (7-17); Carbon Dioxide 24 mmol/L (22.0-30.0); Creatinine Clearance Estimated 45 mL/min (50-200); Estimated Glomerular Filt Rate 60 ml/min (>60); GFR (African American) 72 ML/MIN (>60); Globulin 2.2 g/dL (1.3-3.2); Glucose 56 mg/dl (74-100); Total Protein,Serum 5.4 g/dl (6.3-8.2)
[2024-01-28 08:00] VITALS: BP 123/62; PULSE 116; RESP 19; TEMP 36.8; O2SAT 96
[2024-01-28] MEDS: ASPIRIN 81MG CHEWABLE TABLET 81 MG PO (08:04)
[2024-01-28] MEDS: ENOXAPARIN 40MG/0.4ML SYRINGE 40 MG SUBCUT (08:04)
[2024-01-28] MEDS: ONDANSETRON 4MG/2ML VIAL 4 MG IV (08:04)
[2024-01-28] MEDS: dilTIAZem HCL 180MG CAP.ER.24H 180 MG PO (08:04)
[2024-01-28] MEDS: METOPROLOL TARTRATE 25MG TABLET 25 MG PO ×2 (08:04→20:48)
[2024-01-28] MEDS: PREGABALIN 100MG CAPSULE 100 MG PO ×2 (08:30→20:48)
[2024-01-28] MEDS: SODIUM CHLORIDE 0.45 % 1,000 ML 100 ML IV (08:34)
--- NOTE | 2024-01-28 10:45 | PC.NURSE ---
Pt. reports slight nause when ambulating to the restroom.
[2024-01-28] MEDS: CEFTRIAXONE 1 GM 1 GM in 0.9 % SODIUM CHLORIDE 50 ML IV (10:47)
--- NOTE | 2024-01-28 12:05 | XR_ITS ---
FINAL REPORT CLINICAL HISTORY: f/u sbo COMPARISON: 01/27/2024 FINDINGS: A single view of the abdomen was obtained. The bowel gas pattern is nonspecific. Contrast is noted in the colon. There is been fusion of the lower lumbar spine. Moderate vascular calcifications are noted. IMPRESSION: Nonspecific bowel gas pattern. Reviewed, Interpreted and Dictated by Gil Dubon III, MD Transcribed by Puja Holder Authenticated and . [facility]
--- NOTE | 2024-01-28 14:09 | HMH.PTEV ---
Physical Therapy Evaluation Rehab PT IP Evaluation Start: 01/28/24 10:39 Freq: ONCE Status: Active Protocol: Document 01/28/24 13:40 SONNY (Rec: 01/28/24 14:09 PHOZACKERY [id number]) Subjective/History History History Pt is an 83-year-old female who presents to [facility] w/ c/o diffuse abdominal pain. Pt reports she lives at home w/ her daughter, but states she stays on the first floor and is not required to navigate stairs. Before admission, pt states she was independent w/ all ADLs and ambulation. Pt uses a RW at home. PMH includes CAD (coronary artery disease), Rheumatoid arthritis , Psoriatic arthritis, Liver cyst, Amyloidosis, Neuropathy, Osteoporosis, GERD ( gastroesophageal reflux disease), Degenerative disc disease, HTN (hypertension), benign, HLD (hyperlipidemia). Subjective Subjective Pt presents sitting in bedside chair w/ feet propped this afternoon. Pt is awake, alert, and oriented x3 this date. Pt denies any nausea or dizziness, and does not report any pain at this time. New diagnosis of cancer in past 12 No months? Rehab PT IP Eval Objective Appearance Patient Behavior Appropriate,Cooperative Patient Orientation Person,Place,Birthday Difficulty following instructions none Speech Pattern Clear,Appropriate,Coherent Ambulation Patient Able to Ambulate Yes Ambulation Observation IP General Gait Pattern Observation No Deviations/Normal Ambulation Distance (feet) 60 Ambulation Assistive Device Rolling Walker Ambulation Ability Independent Balance Ability to Arise Able, uses arms to help Sitting Balance Steady, safe Standing Balance Steady, wide stance Dynamic Sitting Balance Ability Normal Dynamic Standing Balance Ability Normal Transfers Sit to Stand Chair Transfer Ability Supervision/Stand by Rehab PT IP prob,goals,plan Problems Date of Evaluation: 01/28/24 Discharge Plan PT Discharge Plan Currently, pt is appropriate to return home once medically stable for d/c. Pt demonstrates baseline transfer and ambulation abilities. Pt does not require verbal cues for gait or sit to stand tasks . Additionally, pt demonstrates good endurance and global strength this date. Eval Complexity Eval Charge Codes 32042 - High Complexity PHYSICIAN CERTIFICATION: I certify the specified therapy services for Chen O Shaina are required, authorized, and reviewed every 30 days.
--- NOTE | 2024-01-28 14:14 | P.PN_ITS ---
Subjective *Date: 01/28/24 *Time: 14:14 Interval history: Tolerated clear liquid diet well this morning. Will trial again this afternoon. Had an episode of diarrhea this morning. Exam Data for Last 24 hours Vital signs and Labs for Last 24 Hours: Temp Pulse Resp BP Pulse Ox O2 Del Method O2 Flow Rate 98.3 F 116 H 19 123/62 96 Nasal Cannula 2 01/28/24 08:00 01/28/24 08:00 01/28/24 08:00 01/28/24 08:00 01/28/24 08:00 01/28/24 13:54 01/28/24 13:54 Laboratory Results - last 24 hr 01/28/24 07:25: WBC 3.9 L, RBC 3.11 L, Hgb 10.7 L, Hct 32.8 L, MCV 105.6 H, MCH 34.5 H, MCHC 32.7, RDW 19.2 H, Plt Count 129 L, MPV 9.3, Neut % (Auto) 71.4, Lymph % (Auto) 21.4, [place] % (Auto) 5.1, Eos % (Auto) 1.8, Baso % (Auto) 0.4, Neut # (Auto) 2.8, Lymph # (Auto) 0.8, [place] # (Auto) 0.2, Eos # (Auto) 0.1, Baso # (Auto) 0.0, Sodium 147 H, Potassium 4.3, Chloride 116 H, Carbon Dioxide 24, Anion Gap 11.3, BUN 23 H D, Creatinine 0.90, Estimated Creat Clear 45, Estimated GFR 60, Est GFR ( Amer) 72, Glucose 56 L, Calcium 8.0 L, Total Bilirubin 0.7, AST 47 H, ALT 21, Alkaline Phosphatase 41, Total Protein 5.4 L, Albumin 3.2 L D, Globulin 2.2, Albumin/Globulin Ratio 1.5 I & O for Last 24 hours: Intake & Output 01/25/24 01/26/24 01/27/24 01/28/24 23:59 23:59 23:59 23:59 Intake Total 1586 / 1586 1787 / 1787 2240 / 2240 Output Total 0 / 0 0 / 0 Balance 1586 / 1586 1787 / [id number] Weight 68.039 kg 68 kg 68 kg 68.039 kg Microbiology Reports for the Last 24 Hours: Microbiology 01/25/24 09:40 Urine,Clean Catch Urine Culture - Final Klebsiella aerogenes 01/26/24 00:40 Blood Blood Culture - Preliminary NO GROWTH AFTER 48 HOURS 01/26/24 00:40 Blood Blood Culture - Preliminary NO GROWTH AFTER 48 HOURS Constitutional Constitutional: no acute distress *Routine HEENT Exam Head: Present normocephalic Eye: Present EOMI and PERRL ENT: Present mucous membranes moist *Routine Neck Exam Neck: Present supple; Absent lymphadenopathy *Routine Respiratory Exam Respiratory: Present CTA bilaterally *Routine Cardiovascular Exam Cardiovascular: Present RRR *Routine Abdominal Exam Abdominal: Present soft and normoactive bowel sounds; Absent tenderness *Routine Extremities Exam Extremities: Absent cyanosis, clubbing or edema *Routine Skin Exam Skin: Present warm; Absent rash *Routine Neurological Exam Neurological: Present alert and oriented X3 Assessment and Plan *Assessment and plan (1) SBO (small bowel obstruction): Status: Acute Category: Medical Code(s): K56.609 - Unspecified intestinal obstruction, unspecified as to partial versus complete obstruction (2) HTN (hypertension), benign: Status: Acute Category: Medical Code(s): I10 - Essential (primary) hypertension (3) Rheumatoid arthritis: Status: Inactive Category: Medical Code(s): M06.9 - Rheumatoid arthritis, unspecified Plan This is an 83-year-old female who identifies a sick contact before symptomatology started. She reports a chronic history of rheumatoid arthritis on immunosuppressive therapy. Problems addressed as follows: # Ileus versus partial SBO #Gastroenteritis Previous cholecystectomy CT abdomen and pelvis with small possible bowel obstruction. However, patient has had been having diarrhea for the past couple days with concomitant nausea/vomiting suggesting gastroenteritis. ? Small bowel series 01/27/2024 showed distended loops with normal transit time, suggesting ileus versus partial SBO. ? Patient has not had nausea/vomiting since episode yesterday. Tolerating clear liquid diet appropriate this morning. Has had another episode of diarrhea, known foul-smelling he does not suggest C. difficile. ? Will trial clear liquid diet this afternoon again. Advance as tolerated. ? Continue IV maintenance fluids. #UTI ? UA grossly abnormal. Urine culture growing Klebsiella, sensitive to ceftriaxone. ? Ceftriaxone day 3. Hypertension Routine blood pressure monitoring Beta-shivam therapy Calcium channel shivam therapy Rheumatoid arthritis Immunocompromise state Weekly immunosuppressive therapy Pain control Advanced age Fall precautions Routine nursing interaction Full code Lovenox 40 mg
--- NOTE | 2024-01-28 15:14 | PC.NURSE ---
Pt. is aox 4, up with assistance x 1, 02- 2L NC, 20g L FA sl, now on clears PT eval.
[2024-01-28 16:00] VITALS: BP 124/64; PULSE 104; RESP 16; TEMP 36.6; O2SAT 96
[2024-01-28 20:00] VITALS: BP 105/57; PULSE 95; RESP 18; TEMP 36.6; O2SAT 96
[2024-01-28] MEDS: PREGABALIN 50MG CAPSULE 50 MG PO (20:48)
[2024-01-28] MEDS: ATORVASTATIN 40MG TABLET 40 MG PO (20:48)
[2024-01-28] MEDS: PANTOPRAZOLE 40MG TABLET 40 MG PO (20:48)
[2024-01-29 04:00] VITALS: BP 112/70; PULSE 90; RESP 16; TEMP 36.6; O2SAT 97; BMI 25.0
--- NOTE | 2024-01-29 04:32 | PC.NURSE ---
Patient alert and oriented x4 this shift. Tolerating 2L NC well. Ambulates to/from restroom x1 assist. No complaints of nausea this shift. Abdomen soft, non-tender with active bowel sounds. Patient has tolerated clear liquids well this shift. Call light within reach.
[2024-01-29 07:04] LABS: Adenovirus F 40/41, stool Not Detected (NotDetected); Astrovirus Not Detected (NotDetected); Campylobacter Not Detected (NotDetected); Clostridium Difficile A/B, PCR Not Detected (NotDetected); Cryptosporidium Not Detected (NotDetected); Cyclospora Cayetanesis Not Detected (NotDetected); Entamoeba histolytica Not Detected (NotDetected); Enteroaggregative E coli Not Detected (NotDetected); Enteropathogenic E coli Not Detected (NotDetected); Enterotoxigenic E coli Not Detected (NotDetected); Giardia lamblia Not Detected (NotDetected); Norovirus Not Detected (NotDetected); Plesimonas Shigalloides, PCR Not Detected (NotDetected); Rotavirus A Not Detected (NotDetected); Salmonella, PCR Not Detected (NotDetected); Sapovirus Not Detected (NotDetected); Shiga-like toxin E coli Not Detected (NotDetected); Shigella Enterovasive E coli Not Detected (NotDetected); Vibrio Cholerae Not Detected (NotDetected); Vibrio, PCR Not Detected (NotDetected); Yersinia Entercolitica, PCR Not Detected (NotDetected)
[2024-01-29 07:26] LABS: Basophils % 0.8 % (0.1-2.0); Eosinophils # 0.3 K/mm3 (0.0-0.4); Eosinophils % 7.8 % (0.1-12.0); Hematocrit 31.2 % (37.0-47.0); Hemoglobin 10.1 g/dL (12.2-16.2); Lymphocytes # 0.9 K/mm3 (0.7-4.5); Lymphocytes % 23.2 % (10-50); Mean Corpuscular HGB Conc 32.2 g/dL (31.8-35.4); Mean Corpuscular Hemoglobin 33.7 pg (27.0-31.2); Mean Corpuscular Volume 104.5 fl (81-99); Mean Platelet Volume 9.5 fl (7.4-10.4); Monocytes # 0.4 K/mm3 (0.1-1.0); Monocytes % 10.4 % (1.7-9.3); Neutrophils # 2.1 K/mm3 (1.8-7.8); Neutrophils % 57.7 % (37.0-80.0); Platelet Count 140 K/mm3 (142-424); Red Blood Count 2.98 M/mm3 (4.20-5.40); Red Cell Distribution Width 19.4 % (11.5-17.5); White Blood Count 3.7 K/mm3 (4.8-10.8)
[2024-01-29 07:30] LABS: Albumin Level 2.8 g/dl (3.5-5.0); Chloride 114 mmol/L (98-107); Sodium 139 mmol/L (136-145)
[2024-01-29 07:31] LABS: Potassium 3.5 mmoL/L (3.5-5.1)
[2024-01-29 07:33] LABS: Alanine Aminotransferase 17 U/L (12-78); Albumin/Globulin Ratio 1.3 (1.1-1.8); Alkaline Phosphatase 41 U/L (38-126); Anion Gap 1.5 mEq/L (5-15); Aspartate Amino Transferase 36 U/L (14-36); Bilirubin,Total 0.4 mg/dl (0.2-1.3); Blood Urea Nitrogen 21 mg/dl (7-17); Carbon Dioxide 27 mmol/L (22.0-30.0); Creatinine Clearance Estimated 45 mL/min (50-200); Estimated Glomerular Filt Rate 60 ml/min (>60); GFR (African American) 72 ML/MIN (>60); Globulin 2.2 g/dL (1.3-3.2)
[2024-01-29 07:34] LABS: Calcium 7.4 mg/dl (8.4-10.2); Glucose 83 mg/dl (74-100)
[2024-01-29] MEDS: dilTIAZem HCL 180MG CAP.ER.24H 180 MG PO (07:41)
[2024-01-29] MEDS: PREGABALIN 100MG CAPSULE 100 MG PO (07:41)
[2024-01-29] MEDS: ACETAMINOPHEN 500MG TAB 1000 MG PO (07:41)
[2024-01-29] MEDS: ASPIRIN 81MG CHEWABLE TABLET 81 MG PO (07:42)
[2024-01-29] MEDS: METOPROLOL TARTRATE 25MG TABLET 25 MG PO (07:42)
[2024-01-29 08:00] VITALS: BP 124/73; PULSE 84; RESP 20; TEMP 36.8; O2SAT 94
--- NOTE | 2024-01-29 09:17 | P.PN_ITS ---
Subjective *Date: 01/29/24 *Time: 09:17 Medical Exam Vital signs and Labs for Last 24 Hours: Vital Signs Temp Pulse Resp BP Pulse Ox O2 Del Method O2 Flow Rate 01/29/24 08:00 98.2 F 84 20 124/73 94 L 01/29/24 07:55 Nasal Cannula 2 01/29/24 07:52 Nasal Cannula 2 01/29/24 06:58 Nasal Cannula 2 01/29/24 05:00 Nasal Cannula 2 01/29/24 04:00 97.8 F 90 16 112/70 97 Nasal Cannula 2 01/29/24 03:00 Nasal Cannula 2 01/29/24 01:00 Nasal Cannula 2 01/28/24 23:00 Nasal Cannula 2 01/28/24 21:00 Nasal Cannula 2 01/28/24 20:48 Nasal Cannula 2 01/28/24 20:00 97.9 F 95 H 18 105/57 L 96 Nasal Cannula 2 01/28/24 17:37 Nasal Cannula 2 01/28/24 16:00 97.8 F 104 H 16 124/64 96 Nasal Cannula 01/28/24 13:54 Nasal Cannula 2 01/28/24 12:16 Nasal Cannula 2 01/28/24 10:26 Nasal Cannula 2 Intake and Output 01/28/24 01/29/24 01/29/24 23:59 07:59 15:59 Intake Total 540 / 3481 390 / 390 Output Total 0 / 0 Balance 540 / 3481 390 / 390 Intake: Intake, Oral Amount 540 / 1500 390 / 390 Output: Output, Urine Amount 0 / 0 Other: Number of Voids 0 Number of Bowel Movements 1 Weight 68.039 kg Patient Weight 01/29/24 23:59 Weight 68.039 kg Laboratory Results - last 24 hr 01/29/24 06:08: WBC 3.7 L, RBC 2.98 L, Hgb 10.1 L, Hct 31.2 L, MCV 104.5 H, MCH 33.7 H, MCHC 32.2, RDW 19.4 H, Plt Count 140 L, MPV 9.5, Neut % (Auto) 57.7, Lymph % (Auto) 23.2, [place] % (Auto) 10.4 H, Eos % (Auto) 7.8, Baso % (Auto) 0.8, Neut # (Auto) 2.1, Lymph # (Auto) 0.9, [place] # (Auto) 0.4, Eos # (Auto) 0.3, Baso # (Auto) 0.0, Sodium 139, Potassium 3.5, Chloride 114 H, Carbon Dioxide 27, Anion Gap 1.5 L, BUN 21 H, Creatinine 0.90, Estimated Creat Clear 45, Estimated GFR 60, Est GFR ( Amer) 72, Glucose 83 D, Calcium 7.4 L, Total Bilirubin 0.4, AST 36, ALT 17, Alkaline Phosphatase 41, Total Protein 5.0 L, Albumin 2.8 L D, Globulin 2.2, Albumin/Globulin Ratio 1.3 I & O for Labs for Last 24 Hours: Intake & Output 01/26/24 01/27/24 01/28/24 01/29/24 23:59 23:59 23:59 23:59 Intake Total 1586 / 1586 1787 / 1787 3481 / 3481 390 / 390 Output Total 0 / 0 0 / 0 Balance 1586 / 1586 1787 / 1787 3481 / 3481 390 / 390 Weight 68 kg 68 kg 68.039 kg 68.039 kg Microbiology Reports for the Last 24 Hours: Microbiology 01/25/24 09:40 Urine,Clean Catch Urine Culture - Final Klebsiella aerogenes The patient's infection will respond to the chosen ABx?: Yes (URINE CX = KLEBSIELLA AEROGENES, SENSITIVE. AFEBRILE OVER 24 HRS.) Is the patient receiving the right drug, dose, and route?: Yes Could a more targeted ABx be ordered?: No How long ABx needed (days)?: 7
[2024-01-29] MEDS: CEFTRIAXONE 1 GM 1 GM in 0.9 % SODIUM CHLORIDE 50 ML IV (10:25)
--- NOTE | 2024-01-29 13:41 | P.DS_ITS ---
General Admission date:: 01/26/24 HPI HPI HPI: This is an 83-year-old female who presents to [facility] emergency department with concerns of diffuse abdominal pain that started earlier in the week. She is accompanied by her daughter who assists with the history. The patient lives with her daughter and normally ambulates with a walker. She reports associated nausea, vomiting and diarrhea over several days. She reports her symptoms are intermittent. She reports her hairdresser had similar symptomatology when she started feeling ill. She got a little bit better and tolerated p.o. and then Saturday she started feeling poorly again. She has identified no fever, chills but does endorse weakness and fatigue. She reports her abdominal pain is not resolving. She has identified no concerns for eating spoiled food. She reports no associated hematemesis, melena, hematochezia or dysuria. In the ED a CT of the abdomen and pelvis identified concerns for small bowel obstruction. She reports previous abdominal surgeries. Hospital Course Hospital Course Hospital Course: This is an 83-year-old female who identifies a sick contact before symptomatology started. She reports a chronic history of rheumatoid arthritis on immunosuppressive therapy. Problems addressed as follows: # Ileus versus partial SBO #Gastroenteritis - Previous cholecystectomy. CT abdomen and pelvis with small possible bowel obstruction. However, patient has had been having diarrhea for the past couple days with concomitant nausea/vomiting suggesting gastroenteritis as well. ? Small bowel series 01/27/2024 showed distended loops with normal transit time, suggesting ileus versus partial SBO. ? Clinically improved gradually with bowel rest and slowly advancing diet to low residue. No longer having N/V, no abdominal pain, having bowel movements but loose. Diarrhea panel negative. - PT/OT did not recommend rehab needs. - Medically stable for discharge. Will follow-up with PCP within 1 week. #UTI ? UA grossly abnormal. Urine culture growing Klebsiella, sensitive to ceftri axone. ? Discharged with cefdinir for 1 more day. Hypertension - Continue home regiemen. Rheumatoid arthritis Immunocompromise state - Continue home methotrexate. Exam Data for Last 24 hours Vital signs and Labs for Last 24 Hours: Temp Pulse Resp BP Pulse Ox O2 Del Method O2 Flow Rate 98.2 F 84 20 124/73 94 L Nasal Cannula 2 01/29/24 08:00 01/29/24 08:00 01/29/24 08:00 01/29/24 08:00 01/29/24 08:00 01/29/24 07:55 01/29/24 07:55 Laboratory Results - last 24 hr 01/29/24 06:08: WBC 3.7 L, RBC 2.98 L, Hgb 10.1 L, Hct 31.2 L, MCV 104.5 H, MCH 33.7 H, MCHC 32.2, RDW 19.4 H, Plt Count 140 L, MPV 9.5, Neut % (Auto) 57.7, Lymph % (Auto) 23.2, [place] % (Auto) 10.4 H, Eos % (Auto) 7.8, Baso % (Auto) 0.8, Neut # (Auto) 2.1, Lymph # (Auto) 0.9, [place] # (Auto) 0.4, Eos # (Auto) 0.3, Baso # (Auto) 0.0, Sodium 139, Potassium 3.5, Chloride 114 H, Carbon Dioxide 27, Anion Gap 1.5 L, BUN 21 H, Creatinine 0.90, Estimated Creat Clear 45, Estimated GFR 60, Est GFR ( Amer) 72, Glucose 83 D, Calcium 7.4 L, Total Bilirubin 0.4, AST 36, ALT 17, Alkaline Phosphatase 41, Total Protein 5.0 L, Albumin 2.8 L D, Globulin 2.2, Albumin/Globulin Ratio 1.3 01/29/24 06:57: Stl Aeromonas (PCR) Not detected, Stl C. cayetanensis PCR Not detected, Stool Rotavirus (PCR) Not detected, Stl Adenov F 40/41 PCR Not detected, Stool Astrovirus (PCR) Not detected, Stool Campylobacter PCR Not detec naren, Stl C.difficile Tox PCR Not detected, Stool Cryptosporidium PCR Not detected, Stl E.coli Shiga Tox PCR Not detected, Stool E coli O157 PCR Not detected, Stl Enterotoxigenic E PCR Not detected, Stool EPEC (PCR) Not detected, Stool EAEC (PCR) Not detected, Stl E. histolytica PCR Not detected, Stool Giardia Lamblia PCR Not detected, Stool Salmonella PCR Not detected, Stool Sapovirus (PCR) Not detected, Stl P. shigelloides PCR Not detected, Stl Shigella/EIEC PCR Not detected, St Y.enterocolitica PCR Not detected, Stool Vibrio (PCR) Not detected, Stl Vibrio cholerae PCR Not detected, Stl Norovirus GI/GII PCR Not detected I & O for Last 24 hours: Intake & Output 01/26/24 01/27/24 01/28/24 01/29/24 23:59 23:59 23:59 23:59 Intake Total 1586 / 1586 1787 / 1787 3481 / 3481 730 / 730 Output Total 0 / 0 0 / 0 0 / 0 Balance 1586 / 1586 1787 / 1787 3481 / 3481 730 / 730 Weight 68 kg 68 kg 68.039 kg 68.039 kg Constitutional Constitutional: no acute distress *Routine HEENT Exam Head: Present normocephalic Eye: Present EOMI and PERRL ENT: Present mucous membranes moist *Routine Neck Exam Neck: Present supple; Absent lymphadenopathy *Routine Respiratory Exam Respiratory: Present CTA bilaterally *Routine Cardiovascular Exam Cardiovascular: Present RRR *Routine Abdominal Exam Abdominal: Present soft and normoactive bowel sounds; Absent tenderness *Routine Extremities Exam Extremities: Absent cyanosis, clubbing or edema *Routine Skin Exam Skin: Present warm; Absent rash *Routine Neurological Exam Neurological: Present alert and oriented X3 Results Data Completed and Pending Labs on day of discharge: Labs from last 24 hours 01/29/24 01/29/24 06:57 06:08 WBC 3.7 L RBC 2.98 L Hgb 10.1 L Hct 31.2 L MCV 104.5 H MCH 33.7 H MCHC 32.2 RDW 19.4 H Plt Count 140 L MPV 9.5 Neut % (Auto) 57.7 Lymph % (Auto) 23.2 [place] % (Auto) 10.4 H Eos % (Auto) 7.8 Baso % (Auto) 0.8 Neut # (Auto) 2.1 Lymph # (Auto) 0.9 [place] # (Auto) 0.4 Eos # (Auto) 0.3 Baso # (Auto) 0.0 Sodium 139 Potassium 3.5 Chloride 114 H Carbon Dioxide 27 Anion Gap 1.5 L BUN 21 H Creatinine 0.90 Estimated Creat Clear 45 Estimated GFR 60 Est GFR ( Amer) 72 Glucose 83 D Calcium 7.4 L Total Bilirubin 0.4 AST 36 ALT 17 Alkaline Phosphatase 41 Total Protein 5.0 L Albumin 2.8 L D Globulin 2.2 Albumin/Globulin Ratio 1.3 Stl Aeromonas (PCR) Not detected Stl C. cayetanensis PCR Not detected Stool Rotavirus (PCR) Not detected Stl Adenov F 40/41 PCR Not detected Stool Astrovirus (PCR) Not detected Stool Campylobacter PCR Not detected Stl C.difficile Tox PCR Not detected Stool Cryptosporidium PCR Not detected Stl E.coli Shiga Tox PCR Not detected Stool E coli O157 PCR Not detected Stl Enterotoxigenic E PCR Not detected Stool EPEC (PCR) Not detected Stool EAEC (PCR) Not detected Stl E. histolytica PCR Not detected Stool Giardia Lamblia PCR Not detected Stool Salmonella PCR Not detected Stool Sapovirus (PCR) Not detected Stl P. shigelloides PCR Not detected Stl Shigella/EIEC PCR Not detected St Y.enterocolitica PCR Not detected Stool Vibrio (PCR) Not detected Stl Vibrio cholerae PCR Not detected Stl Norovirus GI/GII PCR Not detected Preliminary micro results at discharge 01/26/24 00:40 Blood Culture - Preliminary Blood NO GROWTH AFTER 48 HOURS 01/26/24 00:40 Blood Culture - Preliminary Blood NO GROWTH AFTER 48 HOURS DS: Diagnosis Discharge Diagnosis (1) SBO (small bowel obstruction): Status: Resolved Code(s): K56.609 - Unspecified intestinal obstruction, unspecified as to partial versus complete obstruction (2) HTN (hypertension), benign: Status: Acute Code(s): I10 - Essential (primary) hypertension Meds Home Medications and Allergies Home Medications ?Medication ?Instructions ?Recorded ?Confirmed ?Type aspirin 81 mg chewable tablet 81 mg PO DAILY 04/11/21 02/01/24 History multivitamin 1 each PO HS 04/11/21 02/01/24 History methotrexate sodium 2.5 mg tablet 20 mg PO WEEKLY 01/22/22 02/01/24 History cetirizine 10 mg tablet (Allergy 10 mg PO DAILYP PRN Allergy 07/19/22 02/01/24 History Relief (cetirizine)) Symptoms pregabalin 50 mg capsule 50 mg PO HS 01/21/23 02/01/24 History denosumab 60 mg/mL subcutaneous 60 mg SQ [id number] 05/10/23 02/01/24 History syringe folic acid 1 mg tablet 2 mg PO DAILY 10/07/23 02/01/24 History metoprolol tartrate 25 mg tablet 25 mg PO BID 10/16/23 02/01/24 History albuterol sulfate 90 mcg/actuation 2 puff inhalation Q4HP PRN 01/26/24 02/01/24 History aerosol inhaler shortness of breath or wheezing atorvastatin 40 mg tablet 40 mg PO HS 01/26/24 02/01/24 History calcium carbonate 1 tab PO DAILY 01/26/24 02/01/24 History pantoprazole 40 mg tablet,delayed 40 mg PO AM 01/26/24 02/01/24 History release (Protonix) polysaccharide iron complex 180 mg 180 mg PO DAILY 01/26/24 02/01/24 History iron capsule (Pro Fe) pregabalin 100 mg capsule 100 mg PO BID 01/26/24 02/01/24 History apixaban 5 mg tablet (Eliquis) 5 mg PO BID 30 days #60 tabs 02/05/24 Rx diltiazem HCl 240 mg 240 mg PO HS 30 days #30 caps 02/05/24 Rx capsule,extended release 24 hr furosemide 40 mg tablet 40 mg PO DAILY 30 days #30 tabs 02/05/24 Rx ciprofloxacin HCl 500 mg tablet 500 mg PO BID 10 days #20 tabs 02/13/24 Rx New Prescriptions to Start Prescriptions: Allergies Allergy/AdvReac Type Severity Reaction Status Date / Time loratadine (From Claritin) Allergy Intermediate Rash Verified 01/25/24 23:16 Sulfa (Sulfonamide Allergy Intermediate rash/swelli Verified 01/25/24 23:16 Antibiotics) ng sulfamethoxazole (From Allergy Intermediate rash/swelli Verified 01/25/24 23:16 Bactrim) ng trimethoprim (From Bactrim) Allergy Intermediate rash/swelli Verified 01/25/24 23:16 ng nitrofurantoin (From AdvReac Hives Verified 01/25/24 23:16 Macrobid) Discharge Plan Disposition Patient Disposition: Home, Self-Care Condition: Fair Discharge Order Discharge Orders: Discharge Order (Routine); Ordered 01/29/24 Ordered By: Ross Guzmán Follow up Plan Follow up with: Geeta Esteban APRN [Primary Care Provider] - 02/05/24 11:30 am Prescriptions/Medication Reconciliation: Continued methotrexate sodium 2.5 mg tablet 20 mg PO WEEKLY Rx Instructions: Pt to take 6 tablets at one time weekly on cetirizine [Allergy Relief (cetirizine)] 10 mg tablet 10 mg PO DAILYP PRN (Reason: Allergy Symptoms) folic acid 1 mg tablet 2 mg PO DAILY metoprolol tartrate 25 mg tablet 25 mg PO BID Patient Comments: TAKE 1 TABLET BY MOUTH TWICE DAILY pregabalin 50 mg capsule 50 mg PO HS multivitamin 1 EACH tablet 1 each PO HS aspirin 81 MG tablet,chewable 81 mg PO DAILY denosumab 60 mg/mL syringe 60 mg SQ [id number] pregabalin 100 mg capsule 100 mg PO BID Patient Comments: TAKE 1 CAPSULE BY MOUTH TWICE DAILY Pro Fe 180 mg iron capsule 180 mg PO DAILY Patient Comments: TAKE 1 CAPSULE BY MOUTH ONCE DAILY atorvastatin 40 mg tablet 40 mg PO HS pantoprazole [Protonix] 40 mg tablet,delayed release (DR/EC) 40 mg PO AM Rx Instructions: TAKE 1 TABLET BY MOUTH ONCE DAILY FOR GERD calcium carbonate 600 mg calcium (1.5 gram) Tablet,Chewable 1 tab PO DAILY albuterol sulfate 90 mcg/actuation HFA aerosol inhaler 2 puff inhalation Q4HP PRN (Reason: shortness of breath or wheezing) No Action ciprofloxacin HCl 500 mg tablet 500 mg PO BID 10 Days Qty: 20 0RF Eliquis 5 mg Tablet 5 mg PO BID 30 Days Qty: 60 0RF furosemide 40 mg Tablet 40 mg PO DAILY 30 Days Qty: 30 0RF diltiazem HCl 240 mg Capsule,Extended Release 24hr 240 mg PO HS 30 Days Qty: 30 0RF Problem Reconciliation Problems Reviewed?: Yes Patient Discharge Instructions Patient Instructions: Low-Fiber/Low-Residue Diet, DI for Small Bowel Obstruction, DI for Urinary Tract Infection (UTI) Print Language: Kazakh Providers Primary Care Provider: Geeta Esteban Admit Provider: Serg Louise Attending Provider: Serg Louise
== END 2024-01-29 15:08 | disposition home or self-care (01) | DRG 389 ==
LOC: ER 01-26 02:57 → 2ND 01-26 03:24
PROVIDERS: Student in an Organized Health Care Education/Training Program; Admitting Provider Family Medicine; Emergency Provider Emergency Medicine; PCP Nurse Practitioner Family; Visit Provider Family Medicine
DX: K56.609 Unspecified intestinal obstruction, unspecified as to partial versus complete obstruction (principal); N39.0 Urinary tract infection, site not specified; K56.7 Ileus, unspecified; I10 Essential (primary) hypertension; M06.9 Rheumatoid arthritis, unspecified; K52.9 Noninfective gastroenteritis and colitis, unspecified; K21.9 Gastro-esophageal reflux disease without esophagitis; E78.5 Hyperlipidemia, unspecified; M81.0 Age-related osteoporosis without current pathological fracture; I25.10 Atherosclerotic heart disease of native coronary artery without angina pectoris; Z95.1 Presence of aortocoronary bypass graft
CPT/HCPCS: 36415; 71045; 74018; 74177; 74250; 80048; 80053; 81001; 82746; 83690; 83735; 84443; 85025; 87040; 87086; 87088; 87186; 87389; 87507; 87636; 97163; 99285; J0696; J1650; J2405; J7120; Q9963; Q9967

== ENCOUNTER 2024-02-01 17:03 | Inpatient (IN) | payer MEDICARE, SELFPAY ==
[2024-02-01] VITALS (10 sets, daily range): BP systolic 135–165; BP diastolic 61–92; PULSE 70–92; RESP 20–23; TEMP 36.6–36.8; O2SAT 85–98; BMI 25.0
--- NOTE | 2024-02-01 17:21 | PC.NURSE ---
DR BURROUGHS AT BEDSIDE
--- NOTE | 2024-02-01 17:29 | CT_ITS ---
PROCEDURE INFORMATION: Exam: CTA Chest With Contrast Exam date and time: 02/01/2024 6:05 PM Age: 83 years old Clinical indication: Shortness of breath and other: Hypoxia; Additional info: Shortness of breath, hypoxia TECHNIQUE: Imaging protocol: Computed tomographic angiography of the chest with contrast. Exam focused on the arteries. 3D rendering (Not supervised by radiologist): MIP and/or 3D reconstructed images were created by the technologist. Radiation optimization: All CT scans at this facility use at least one of these dose optimization techniques: automated exposure control; mA and/or kV adjustment per patient size (includes targeted exams where dose is matched to clinical indication); or iterative reconstruction. Contrast material: ISOVUE 370; Contrast volume: 70 ml; Contrast route: INTRAVENOUS (IV); COMPARISON: 1. CR XR CHEST PORTABLE 01/26/2024 1:46 AM 2. CR XR CHEST 2V 10/16/2023 2:[address] ABDOMEN PELVIS W CON 01/26/2024 12:55 AM FINDINGS: Pulmonary arteries: There is no evidence for clinically relevant pulmonary arterial filling defect. Tiny distal filling defects may be present but are of dubious clinical significance. Aorta: There is atherosclerotic disease of the visualized aorta and its major branch vessels. Teeth: There is dental amalgam which causes streak artifact and mildly limits evaluation of the oral cavity. Lungs: Scattered areas of bronchial wall thickening which are likely chronic inflammatory. A few areas of subpleural reticulation are noted, nonspecific. Parenchymal consolidations at the bases could be on the basis of atelectasis but underlying infection is not completely excluded. Pleural spaces: There are moderate right and small left pleural effusions. Heart: Unremarkable. No cardiomegaly. No pericardial effusion. Coronary arteries: There is moderate coronary atherosclerotic disease/calcification although evaluation is limited secondary to the non gated nature of the study. Lymph nodes: Unremarkable. No enlarged lymph nodes. Liver: There are calcifications in the liver which most likely reflect calcified granulomas. There are low-density lesions in the liver which most likely reflect a combination of cysts and/or hemangiomas. Gallbladder and biliary ducts: The patient is status post cholecystectomy. Spleen: There are multiple calcifications in the spleen most likely reflects small granulomas. Bones/joints: There is diffuse degenerative disease of the visualized osseous structures. The patient is status post median sternotomy. Soft tissues: Unremarkable. IMPRESSION: 1. Parenchymal consolidations at the bases could be on the basis of atelectasis but underlying infection is not completely excluded. 2. There are moderate right and small left pleural effusions. 3. No evidence for clinically relevant pulmonary arterial filling defect.
--- NOTE | 2024-02-01 17:30 | ECG_ITS ---
APPROVED REPORT Exam: Resting ECG HR:82 bpm ECG Measurements Heart Rate 82 AXES IA 166 P 57 QRSd 97 QRS 34 QT 380 T 55 QTc 419 Conclusion SINUS RHYTHM LOW QRS VOLTAGE IN PRECORDIAL LEADS [QRS DEFLECTION < 1.0 mV IN CHEST LEADS] INCOMPLETE RIGHT BUNDLE BRANCH BLOCK [90+ ms QRS DURATION, TERMINAL R IN V1/V2, 40+ ms S IN I/aVL/V4/V5/V6] BORDERLINE ECG UNCONFIRMED REPORT Electronically signed by : EDDIE FLETCHER, 02/03/2024 23:51:13
--- NOTE | 2024-02-01 17:31 | HMH.EDGENADL ---
Discharge Plan Disposition Patient Disposition: Admitted Clinical Impressions Clinical Impression: CHF exacerbation Discharge ED Provider: Sathish Goff General Adult HPI General Chief complaint: Shortness of Breath/Dyspnea Stated complaint: SOA diarrhea Time Seen by Provider: 02/01/24 17:18 Mode of Arrival: Ambulatory Source of Information: Patient and Relative Limitations: No Limitations History of Present Illness HPI narrative: Chen Merritt is an 83-year-old female with a history of coronary artery disease status post four-vessel CABG, amyloidosis, hypertension, hyperlipidemia, degenerative disc disease, recent small bowel obstruction treated conservatively with bowel rest who presents to the emergency department with her daughter for concern for sudden onset shortness of breath. Patient was evaluated in the emergency department on the seventh of this month and had a CT scan of her abdomen/pelvis that showed a small bowel obstruction. She was admitted at that time and treated conservatively with bowel rest. He was then discharged 3 days ago. Since has been home, she has been doing well. She has had several smaller bowel movements throughout that course and no abdominal pain or fever. Today, she had an episode of sudden onset shortness of breath and daughter states that she felt like she was extremely wheezy and gave her an albuterol treatment and this seemed to improve her symptoms. Daughter states that her home pulse ox at that time was reading in the 70s and is usually in the 90s. She does note that while she was admitted recently, she had to have oxygen due to low oxygen saturations when she would lie flat. On arrival to the emergency department, patient was mildly hypoxic with SpO2 of 85% was put on 2 L nasal cannula. Patient denies any current shortness of breath, recent chest pain, abdominal pain, dysuria, hematuria. She notes that she had a loose bowel movement prior to coming to the hospital. Related Data Home Medications ?Medication ?Instructions ?Recorded ?Confirmed aspirin 81 mg chewable tablet 81 mg PO DAILY 04/11/21 01/26/24 multivitamin 1 each PO DAILY 04/11/21 01/26/24 methotrexate sodium 2.5 mg tablet 20 mg PO WEEKLY 01/22/22 01/26/24 cetirizine 10 mg tablet (Allergy 10 mg PO DAILYP PRN Allergy 07/19/22 01/26/24 Relief (cetirizine)) Symptoms pregabalin 50 mg capsule 50 mg PO HS 01/21/23 01/26/24 denosumab 60 mg/mL subcutaneous 60 mg SQ [id number] 05/10/23 01/26/24 syringe folic acid 1 mg tablet 2 mg PO DAILY 10/07/23 01/26/24 metoprolol tartrate 25 mg tablet 25 mg PO BID 10/16/23 01/26/24 albuterol sulfate 90 mcg/actuation 2 puff inhalation Q4HP PRN 01/26/24 01/26/24 aerosol inhaler shortness of breath or wheezing atorvastatin 40 mg tablet 40 mg PO HS 01/26/24 01/26/24 calcium carbonate 1 tab PO DAILY 01/26/24 01/26/24 cholecalciferol (vitamin D3) 25 25 mcg PO DAILY 01/26/24 01/26/24 mcg (1,000 unit) tablet docusate sodium 100 mg capsule 100 mg PO DAILY 01/26/24 01/26/24 pantoprazole 40 mg tablet,delayed 40 mg PO HS 01/26/24 01/26/24 release (Protonix) polysaccharide iron complex 180 mg 180 mg PO DAILY 01/26/24 01/26/24 iron capsule (Pro Fe) pregabalin 100 mg capsule 100 mg PO BID 01/26/24 01/26/24 Previous Rx's ?Medication ?Instructions ?Recorded diltiazem HCl 180 mg 180 mg PO DAILY 90 days #90 caps 08/30/22 capsule,extended release 24 hr cefdinir 300 mg capsule 300 mg PO BID 1 day #2 caps 01/29/24 Allergies Allergy/AdvReac Type Severity Reaction Status Date / Time loratadine (From Claritin) Allergy Intermediate Rash Verified 01/25/24 23:16 Sulfa (Sulfonamide Allergy Intermediate rash/swelli Verified 01/25/24 23:16 Antibiotics) ng sulfamethoxazole (From Allergy Intermediate rash/swelli Verified 01/25/24 23:16 Bactrim) ng trimethoprim (From Bactrim) Allergy Intermediate rash/swelli Verified 01/25/24 23:16 ng nitrofurantoin (From AdvReac Hives Verified 01/25/24 23:16 Macrobid) [facility] Disclaimer: The information contained in this section may have been updated after the patient was seen, as this information can be updated by other users. Medical History (Updated 02/01/24 @ 19:37 by Efe Moulton RN) CAD (coronary artery disease) Rheumatoid arthritis Psoriatic arthritis Liver cyst Amyloidosis Neuropathy Osteoporosis GERD (gastroesophageal reflux disease) Degenerative disc disease HTN (hypertension), benign HLD (hyperlipidemia) Surgical History (Updated 01/26/24 @ 03:25 by Serg Louise MD) S/P CABG (coronary artery bypass graft) History of discectomy History of open heart surgery History of cholecystectomy H/O total hysterectomy Family History Sister Cancer Breast Ca Unknown Cancer Breast Ca Unknown Cancer Rare type of cancer with low platelets-Leukemia Family/Other Anemia increased weakness and fatigue Hypertension Other Coronary artery disease Heart attack Social History (Updated 01/26/24 @ 03:58 by Wendy Murry RN) Smoking Status: Never smoker alcohol intake: never substance use type: denies use current occupational status: retired Travel in the last 8 weeks: None housing: house caffeine: Yes physical activity: walking and yoga frequency: daily duration: 15-30 minutes/day do you feel safe at home: Yes victim of physical abuse: No victim of emotional abuse: No victim of sexual abuse: No would you like helpful sources: No Have you lived/traveled outside [place] in past 30 days?: No Contact w/someone who lives/traveled outside [place] past 30 days?: No Exposure to someone with infectious disease in past 14 days?: No Do you have a fever (greater than 100.4 F or 38 C)?: No Have you tested positive for COVID-19: No Exposed to someone with COVID-19 in past 14 days?: No Do you have a sore throat?: No Do you have a cough?: No Do you have any weakness?: No Do you have any diarrhea?: Yes Are you experiencing any unusual bleeding?: No Do you have any muscle aches/pain?: No Do you have any abdominal pain?: No Are you experiencing loss of taste or smell?: No Other Medical History Have you received the Flu Vaccine for this season: No Have you received the Pneumonia Vaccine: No ROS Obtained: Yes Systems reviewed as appropriate & no additional complaints except as documented Physical Exam General General appearance: alert and in no apparent distress Head Head exam: atraumatic Eye Eye exam: Present normal appearance ENT ENT exam: Present normal external ear exam Neck Neck exam: Present full ROM Chest Chest inspection: Present symmetric chest wall rise Respiratory Respiratory exam: Present normal lung sounds bilaterally and other (On 2L O2); Absent respiratory distress, wheezes or stridor Cardiovascular Cardiovascular exam: Present regular rate and normal rhythm Abdominal Exam Abdominal exam: Present soft; Absent distention, tenderness or guarding Extremities Exam Extremities exam: Present normal inspection and edema (2+ pitting to distal bilateral lower extremities) Back Exam Back exam: Present normal inspection Neurological Exam Neurological exam: Present alert and oriented X3 Psychiatric Psychiatric exam: Present normal affect Skin Skin exam: Present warm and dry Medical Decision Making Medical Records Screening: Per USPSTF and CDC recommendations, given the prevalence of disease in our region, it is our hospital?s policy to screen for HIV and viral Hepatitis for all patients aged 18 and over and those with ongoing risk factors. [place] Inquiry Pt receiving controlled substance: No Vital Signs: 02/01/24 17:05 02/01/24 17:06 02/01/24 17:15 Temperature 97.9 F Temperature Source Oral Pulse Rate 88 Pulse Rate [Right] 87 Respiratory Rate 23 Blood Pressure 159/92 H Blood Pressure [Right Arm] 159/92 H Blood Pressure Mean [Right Arm] 114 Blood Pressure Source [Right Arm] Automatic Cuff 02 Sat by Pulse Oximetry 85 L 96 97 Oxygen Delivery Method Room Air Nasal Cannula Oxygen Flow Rate (LPM) 2 02/01/24 17:31 02/01/24 18:15 02/01/24 18:30 Temperature Temperature Source Pulse Rate 88 92 H 85 Pulse Rate [Right] Respiratory Rate Blood Pressure 165/82 H 165/80 H Blood Pressure [Right Arm] Blood Pressure Mean [Right Arm] Blood Pressure Source [Right Arm] 02 Sat by Pulse Oximetry 98 96 98 Oxygen Delivery Method Nasal Cannula Oxygen Flow Rate (LPM) 2 02/01/24 19:00 02/01/24 19:32 Temperature 98.2 F Temperature Source Oral Pulse Rate 83 90 Pulse Rate [Right] Respiratory Rate 20 Blood Pressure 161/79 H 135/61 Blood Pressure [Right Arm] Blood Pressure Mean [Right Arm] Blood Pressure Source [Right Arm] 02 Sat by Pulse Oximetry 97 Oxygen Delivery Method Oxygen Flow Rate (LPM) Lab Data Lab Results 02/01/24 17:29: VBG pH 7.37, VBG pCO2 44.6, VBG pO2 44.2 H, VBG HCO3 24.9, VBG Total CO2 26.3, VBG O2 Saturation 74.0 H, VBG Base Excess -0.5, VBG Lactic Acid 1.5 02/01/24 17:50: WBC 5.3, RBC 3.46 L, Hgb 11.9 L, Hct 36.8 L, MCV 106.6 H, MCH 34.5 H, MCHC 32.4, RDW 19.8 H, Plt Count 222 D, MPV 9.3, Neut % (Auto) 77.2, Lymph % (Auto) 13.7, [place] % (Auto) 5.0, Eos % (Auto) 3.1, Baso % (Auto) 1.0, Neut # (Auto) 4.1, Lymph # (Auto) 0.7, [place] # (Auto) 0.3, Eos # (Auto) 0.2, Baso # (Auto) 0.1, Sodium 141, Potassium 4.2, Chloride 110 H, Carbon Dioxide 31 H, Anion Gap 4.2 L, BUN 15, Creatinine 0.70, Estimated Creat Clear 45, Estimated GFR 80, Est GFR ( Amer) 96, Glucose 109 H, Calcium 9.1, Total Bilirubin 0.9, AST 56 H, ALT 25, Alkaline Phosphatase 56, Troponin I 0.02, C-Reactive Protein 21.7 H, NT-Pro-B Natriuret Pep 6270 H, Total Protein 5.9 L, Albumin 3.5, Globulin 2.4, Albumin/Globulin Ratio 1.5, Procalcitonin 0.078 02/01/24 17:50 02/01/24 17:50 Orders (Tests/Meds): ED MEDICATIONS Generic Name Dose Route Start Last Admin Trade Name Freq PRN Reason Stop Dose Admin Acetaminophen 650 mg 02/01/24 19:48 Acetaminophen 325mg Tab PO 03/02/24 19:47 Q4HP PRN Fever or Mild Pain (1-3) Al Hydrox/Mg Hydrox/Simethicone 30 ml 02/01/24 19:48 Aluminum/Magnesium/Simethicone 30ml Udc PO 03/02/24 19:47 QIDP PRN Dyspepsia Enoxaparin Sodium 40 mg 02/02/24 09:00 Enoxaparin 40mg/0.4ml Syringe SUBCUT 03/03/24 08:59 DAILY CHRIS Furosemide 40 mg 02/02/24 09:00 Furosemide 40mg/4ml Vial IV 02/05/24 16:01 BIDL CHRIS Morphine Sulfate 2 mg 02/01/24 19:48 Morphine 2mg/Ml Syringe IV 03/02/24 19:47 Q2HP PRN Severe Pain (7-10) Ondansetron HCl 4 mg 02/01/24 19:48 Ondansetron 4mg/2ml Vial IV 03/02/24 19:47 Q8HP PRN Nausea Discontinued Medications Generic Name Dose Route Start Last Admin Trade Name Freq PRN Reason Stop Dose Admin Acetaminophen 500 mg 02/01/24 19:14 02/01/24 19:18 Acetaminophen 500mg Tab PO 02/01/24 19:15 500 mg ONCE ONE Administration Furosemide 40 mg 02/01/24 19:04 02/01/24 19:09 Furosemide 40mg/4ml Vial IV 02/01/24 19:05 40 mg ONCE ONE Administration Iopamidol 70 ml 02/01/24 18:05 02/01/24 18:07 Iopamidol-370 (76%);100ml Bottle IV 02/01/24 18:06 70 ml ONCE ONE Administration Sodium Chloride 40 ml 02/01/24 18:05 02/01/24 18:07 0.9 % Sodium Chloride 50 Ml Vial IV 02/01/24 18:06 40 ml ONCE ONE Administration Sodium Chloride 10 ml 02/01/24 18:05 02/01/24 18:07 Sodium Chloride 0.9% 10ml Syr (Rad Only) IV 02/01/24 18:06 10 ml ONCE ONE Administration ORDERS Category Date Time Status CT angio chest PE protocol Stat Cat Scan 02/01/24 17:29 Completed BNP [NT Pro Brain Natriuretic Pep.] Stat Lab 02/01/24 17:50 Completed CBC w/Auto Diff [Complete Blood Count Auto Diff] Stat Lab 02/01/24 17:50 Completed CMP [Comprehensive Metabolic Panel] Stat Lab 02/01/24 17:50 Completed CRP [C-Reactive Protein] Stat Lab 02/01/24 17:50 Completed HIV (1&2) Antibody Rapid Stat Lab 02/01/24 17:50 Received Hep C Ab with Reflex to RNA Stat Lab 02/01/24 17:50 Ordered Procalcitonin Stat Lab 02/01/24 17:50 Completed Troponin I Q3H Lab 02/01/24 20:30 Ordered Troponin I Q3H Lab 02/01/24 23:30 Ordered Troponin I Stat Lab 02/01/24 17:50 Completed VBG [Venous Blood Gas] Stat RT 02/01/24 17:29 Completed EKG Request [ECG Request] Stat Y 02/01/24 17:30 Ordered Medical Decision Narrative: Chen Merritt is an 83-year-old female with past medical history of coronary artery disease, amyloidosis, hypertension, hyperlipidemia, CABG (four-vessel), CA who presents to the emergency department for complaints of sudden onset shortness of breath. Previous records were reviewed and patient was seen in the emergency department on 01/25/2020 for and was found to have a small bowel obstruction and was admitted at that time. She was discharged on 01/29/2024 that was treated conservatively with bowel rest. She has continued to have bowel movements since then but developed sudden onset shortness of breath and hypoxia today while at home and is since improved after albuterol inhaler given by daughter prior to arrival. Patient noted to be mildly hypoxic on arrival at 85% SpO2 and was put on 2 L nasal cannula. Patient notes that she has had blood clots in the past but is not currently on any anticoagulation medication. She takes a daily aspirin. She reports chronic swelling of her lower extremities that are equal bilaterally. Physical exam, as stated above, demonstrated an overall well-appearing female. She is on 2 L nasal cannula and resting comfortably in bed, answering questions appropriately and speaking in full sentences. She denies any shortness of breath or chest pain currently. No adventitious lung sounds. No cardiac murmurs. Abdomen is soft, nontender nondistended. She does have 2+ pitting edema to the distal bilateral lower extremities Differential diagnosis includes, but is not limited to: Pulmonary embolism, ACS, pneumonia, pneumothorax, among others. Patient's workup in the emergency department included: CTA pulmonary embolism protocol, CBC, CMP, troponin, BNP, procalcitonin, CRP, EKG. EKG interpreted by me personally at 1803. Normal sinus rhythm. Mild less than [address] depressions in V3 and V4 but no reciprocal changes and no other depressions or elevations noted. Normal axis. QTc normal at 419, TX interval 166 Labs noted for white blood cell count with no leukocytosis, hemoglobin of 11.9 hematocrit of 36.8 (at baseline), VBG unremarkable and nonactionable, [] CTA pulmonary was in protocol interpreted by me personally and demonstrated bilateral basilar pulmonary effusions, parenchymal consolidations that could be atelectasis. Radiology reports that these could possibly be infectious, however given my interpretation, this is likely atelectasis and volume overload in the setting of elevated BNP and peripheral edema. Less concerning for infectious process given no leukocytosis, Pro-Abdiel normal at 0.078 and only mildly elevated CRP at 21.7, no fever and stable vital signs. Will defer antibiotics at this time. Will give 40 mg of IV Lasix and discussed patient's case with the hospitalist team as she would benefit from admission for continued IV diuretics possible echocardiogram. The hospitalist team agreed to admit the patient for further management. Critical Care Critical Care Time Critical Care Time: No
[2024-02-01 18:02] LABS: Lactate Venous 1.5 mmol/L (0.4-2.0); VBG Base Excess -0.5 mmol/L (-2.4-2.3); VBG HCO3 24.9 mmol/L (23-30); VBG PCO2 44.6 mmol/L (35-51); VBG PH 7.37 mmol/L (7.31-7.41); VBG PO2 44.2 mmol/L (28-40); VBG Total CO2 26.3 mmol/L (23-27)
[2024-02-01 18:04] LABS: Basophils # 0.1 K/mm3 (0-0.2); Eosinophils # 0.2 K/mm3 (0.0-0.4); Eosinophils % 3.1 % (0.1-12.0); Hematocrit 36.8 % (37.0-47.0); Hemoglobin 11.9 g/dL (12.2-16.2); Lymphocytes # 0.7 K/mm3 (0.7-4.5); Lymphocytes % 13.7 % (10-50); Mean Corpuscular HGB Conc 32.4 g/dL (31.8-35.4); Mean Corpuscular Hemoglobin 34.5 pg (27.0-31.2); Mean Corpuscular Volume 106.6 fl (81-99); Mean Platelet Volume 9.3 fl (7.4-10.4); Monocytes # 0.3 K/mm3 (0.1-1.0); Neutrophils # 4.1 K/mm3 (1.8-7.8); Neutrophils % 77.2 % (37.0-80.0); Platelet Count 222 K/mm3 (142-424); Red Blood Count 3.46 M/mm3 (4.20-5.40); Red Cell Distribution Width 19.8 % (11.5-17.5); White Blood Count 5.3 K/mm3 (4.8-10.8)
[2024-02-01 18:06] LABS: Albumin Level 3.5 g/dl (3.5-5.0); Chloride 110 mmol/L (98-107); Sodium 141 mmol/L (136-145)
[2024-02-01 18:07] LABS: Potassium 4.2 mmoL/L (3.5-5.1)
[2024-02-01] MEDS: IOPAMIDOL-370 (76%);100ML BOTTLE 70 ML IV (18:07)
[2024-02-01] MEDS: 0.9 % SODIUM CHLORIDE 50 ML VIAL 40 ML IV (18:07)
[2024-02-01] MEDS: SODIUM CHLORIDE 0.9% 10ML SYR (RAD ONLY) 10 ML IV (18:07)
[2024-02-01 18:09] LABS: Alanine Aminotransferase 25 U/L (12-78); Albumin/Globulin Ratio 1.5 (1.1-1.8); Alkaline Phosphatase 56 U/L (38-126); Anion Gap 4.2 mEq/L (5-15); Aspartate Amino Transferase 56 U/L (14-36); Bilirubin,Total 0.9 mg/dl (0.2-1.3); Blood Urea Nitrogen 15 mg/dl (7-17); Carbon Dioxide 31 mmol/L (22.0-30.0); Creatinine Clearance Estimated 45 mL/min (50-200); Estimated Glomerular Filt Rate 80 ml/min (>60); GFR (African American) 96 ML/MIN (>60); Globulin 2.4 g/dL (1.3-3.2); Total Protein,Serum 5.9 g/dl (6.3-8.2)
[2024-02-01 18:10] LABS: Calcium 9.1 mg/dl (8.4-10.2); Glucose 109 mg/dl (74-100)
[2024-02-01 18:15] LABS: C-Reactive Protein 21.7 mg/L (0-4)
[2024-02-01 18:24] LABS: Troponin I 0.02 ng/ml (0.00-0.034)
[2024-02-01 18:30] LABS: NT Pro Brain Natriuretic Pep. 6270 pg/mL (0-450)
[2024-02-01 18:38] LABS: Procalcitonin 0.078 ng/mL (0.0-2.0)
[2024-02-01] MEDS: FUROSEMIDE 40MG/4ML VIAL 40 MG IV (19:09)
[2024-02-01] MEDS: ACETAMINOPHEN 500MG TAB 500 MG PO (19:18)
--- NOTE | 2024-02-01 19:37 | PC.NURSE ---
Pt transported to inpatient unit via wheelchair
--- NOTE | 2024-02-01 19:55 | EXP.HP ---
History of Present Illness *Admission Date: 02/01/24 *Reason for visit:: SOB/RANDOLPH *History of present illness: 80-year-old presents with SOB, RANDOLPH, lower extremity swelling for 7 days. Patient has past medical history of amyloidosis, hypertension, recent small bowel obstruction admission(01/25 to 01/28), anemia, CAD, hypertension, hyperlipidemia, osteoporosis GERD. Patient for brought to hospital by daughter for shortness of breath evaluation. Patient desat to 70% on room air in emergency room. Patient's O2 saturations increased to 90% on 2 L nasal cannula. Admits to nausea and loose bowel movements in past 24 hours. Also has a rattly cough that started today. Patient and patient's daughter state that lower extremity swelling has gotten worse since Saturday. Denies fevers, chills, known sick contacts, recent travel, chest pain, abdominal pain, history of lung problems. Patient has known diagnosis of amyloidosis and is taking care of by Dr. Sidhu at [facility]. Also states her amyloidosis was diagnosed with a blood test done at . 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 Admits to [place] [address] [facility].BNP 6270, CTA chest b/l effusions. Both lactic acid and patient's procalcitonin normal at time of admission assessment by myself. [facility] Disclaimer: The information contained in this section may have been updated after the patient was seen, as this information can be updated by other users. Medical History (Updated 02/01/24 @ 19:37 by Efe Moulton RN) CAD (coronary artery disease) Rheumatoid arthritis Psoriatic arthritis Liver cyst Amyloidosis Neuropathy Osteoporosis GERD (gastroesophageal reflux disease) Degenerative disc disease HTN (hypertension), benign HLD (hyperlipidemia) Surgical History (Updated 01/26/24 @ 03:25 by Serg Louise MD) S/P CABG (coronary artery bypass graft) History of discectomy History of open heart surgery History of cholecystectomy H/O total hysterectomy Family History Sister Cancer Breast Ca Unknown Cancer Breast Ca Unknown Cancer Rare type of cancer with low platelets-Leukemia Family/Other Anemia increased weakness and fatigue Hypertension Other Coronary artery disease Heart attack Social History (Updated 01/26/24 @ 03:58 by Wendy Murry RN) Smoking Status: Never smoker alcohol intake: never substance use type: denies use current occupational status: retired Travel in the last 8 weeks: None housing: house caffeine: Yes physical activity: walking and yoga frequency: daily duration: 15-30 minutes/day do you feel safe at home: Yes victim of physical abuse: No victim of emotional abuse: No victim of sexual abuse: No would you like helpful sources: No Have you lived/traveled outside [place] in past 30 days?: No Contact w/someone who lives/traveled outside US past 30 days?: No Exposure to someone with infectious disease in past 14 days?: No Do you have a fever (greater than 100.4 F or 38 C)?: No Have you tested positive for COVID-19: No Exposed to someone with COVID-19 in past 14 days?: No Do you have a sore throat?: No Do you have a cough?: No Do you have any weakness?: No Do you have any diarrhea?: Yes Are you experiencing any unusual bleeding?: No Do you have any muscle aches/pain?: No Do you have any abdominal pain?: No Are you experiencing loss of taste or smell?: No Other Medical History Have you received the Flu Vaccine for this season: No Have you received the Pneumonia Vaccine: No Review of Systems Review of Systems Review of systems:: pertinent systems reviewed and negative unless documented below Constitutional Constitutional: Reports system reviewed and no additional complaints, except as documented Meds Home Medications and Allergies Home Medications ?Medication ?Instructions ?Recorded ?Confirmed ?Type aspirin 81 mg chewable tablet 81 mg PO DAILY 04/11/21 01/26/24 History multivitamin 1 each PO DAILY 04/11/21 01/26/24 History methotrexate sodium 2.5 mg tablet 20 mg PO WEEKLY 01/22/22 01/26/24 History cetirizine 10 mg tablet (Allergy 10 mg PO DAILYP PRN Allergy 07/19/22 01/26/24 History Relief (cetirizine)) Symptoms diltiazem HCl 180 mg 180 mg PO DAILY 90 days #90 caps 08/30/22 01/26/24 Rx capsule,extended release 24 hr pregabalin 50 mg capsule 50 mg PO HS 01/21/23 01/26/24 History denosumab 60 mg/mL subcutaneous 60 mg SQ [id number] 05/10/23 01/26/24 History syringe folic acid 1 mg tablet 2 mg PO DAILY 10/07/23 01/26/24 History metoprolol tartrate 25 mg tablet 25 mg PO BID 10/16/23 01/26/24 History albuterol sulfate 90 mcg/actuation 2 puff inhalation Q4HP PRN 01/26/24 01/26/24 History aerosol inhaler shortness of breath or wheezing atorvastatin 40 mg tablet 40 mg PO HS 01/26/24 01/26/24 History calcium carbonate 1 tab PO DAILY 01/26/24 01/26/24 History cholecalciferol (vitamin D3) 25 25 mcg PO DAILY 01/26/24 01/26/24 History mcg (1,000 unit) tablet docusate sodium 100 mg capsule 100 mg PO DAILY 01/26/24 01/26/24 History pantoprazole 40 mg tablet,delayed 40 mg PO HS 01/26/24 01/26/24 History release (Protonix) polysaccharide iron complex 180 mg 180 mg PO DAILY 01/26/24 01/26/24 History iron capsule (Pro Fe) pregabalin 100 mg capsule 100 mg PO BID 01/26/24 01/26/24 History cefdinir 300 mg capsule 300 mg PO BID 1 day #2 caps 01/29/24 Rx New Prescriptions to Start Prescriptions: Allergies Allergy/AdvReac Type Severity Reaction Status Date / Time loratadine (From Claritin) Allergy Intermediate Rash Verified 01/25/24 23:16 Sulfa (Sulfonamide Allergy Intermediate rash/swelli Verified 01/25/24 23:16 Antibiotics) ng sulfamethoxazole (From Allergy Intermediate rash/swelli Verified 01/25/24 23:16 Bactrim) ng trimethoprim (From Bactrim) Allergy Intermediate rash/swelli Verified 01/25/24 23:16 ng nitrofurantoin (From AdvReac Hives Verified 01/25/24 23:16 Macrobid) Exam Data for Last 24 hours Vital signs and Labs for Last 24 Hours: Temp Pulse Resp BP Pulse Ox O2 Del Method O2 Flow Rate 98.2 F 90 20 135/61 97 Nasal Cannula 2 02/01/24 19:32 02/01/24 19:32 02/01/24 19:32 02/01/24 19:32 02/01/24 19:00 02/01/24 18:15 02/01/24 18:15 Laboratory Results - last 24 hr 02/01/24 17:29: VBG pH 7.37, VBG pCO2 44.6, VBG pO2 44.2 H, VBG HCO3 24.9, VBG Total CO2 26.3, VBG O2 Saturation 74.0 H, VBG Base Excess -0.5, VBG Lactic Acid 1.5 02/01/24 17:50: WBC 5.3, RBC 3.46 L, Hgb 11.9 L, Hct 36.8 L, MCV 106.6 H, MCH 34.5 H, MCHC 32.4, RDW 19.8 H, Plt Count 222 D, MPV 9.3, Neut % (Auto) 77.2, Lymph % (Auto) 13.7, [place] % (Auto) 5.0, Eos % (Auto) 3.1, Baso % (Auto) 1.0, Neut # (Auto) 4.1, Lymph # (Auto) 0.7, [place] # (Auto) 0.3, Eos # (Auto) 0.2, Baso # (Auto) 0.1, Sodium 141, Potassium 4.2, Chloride 110 H, Carbon Dioxide 31 H, Anion Gap 4.2 L, BUN 15, Creatinine 0.70, Estimated Creat Clear 45, Estimated GFR 80, Est GFR ( Amer) 96, Glucose 109 H, Calcium 9.1, Total Bilirubin 0.9, AST 56 H, ALT 25, Alkaline Phosphatase 56, Troponin I 0.02, C-Reactive Protein 21.7 H, NT-Pro-B Natriuret Pep 6270 H, Total Protein 5.9 L, Albumin 3.5, Globulin 2.4, Albumin/Globulin Ratio 1.5, Procalcitonin 0.078 I & O for Last 24 hours: Intake & Output 01/29/24 01/30/24 01/31/24 02/01/24 23:59 23:59 23:59 23:59 Weight 68.039 kg *Routine HEENT Exam Head: Present normocephalic Eye: Present EOMI ENT: Present mucous membranes moist *Routine Neck Exam Neck: Present supple, full ROM and JVD *Routine Respiratory Exam Respiratory: Present decreased breath sounds, crackles and diminished air movement *Routine Cardiovascular Exam Cardiovascular: Present RRR, Normal S1 and Normal S2 *Routine Abdominal Exam Abdominal: Present soft, normoactive bowel sounds and distended *Routine Rectal Exam Rectal:: deferred *Routine Genitalia Exam Genitalia:: deferred *Routine Extremities Exam Extremities: Present full ROM *Routine Skin Exam Skin: Present intact *Routine Neurological Exam Neurological: Present alert and oriented X3 Assessment and Plan *Assessment and plan (1) CHF exacerbation: Status: Acute Category: Medical Code(s): I50.9 - Heart failure, unspecified (2) HTN (hypertension), benign: Status: Acute Category: Medical Code(s): I10 - Essential (primary) hypertension (3) HLD (hyperlipidemia): Status: Acute Category: Medical Code(s): E78.5 - Hyperlipidemia, unspecified (4) GERD (gastroesophageal reflux disease): Status: Acute Category: Medical Code(s): K21.9 - Gastro-esophageal reflux disease without esophagitis Plan 80-year-old presents with SOB, RANDOLPH, lower extremity swelling for 7 days. Patient has past medical history of amyloidosis, hypertension, recent small bowel obstruction admission, anemia, CAD, hypertension, hyperlipidemia, osteoporosis GERD. BNP 6270, CTA chest b/l effusions. Pt admitted for amyliodosis realted CHF exacerbation. Problems as listed below: Labs/imaging reviewed at time of admission: ? CTA chest: Parenchymal consolidations at the bases could be on the basis of atelectasis but underlying infection is not completely excluded. Moderate right and left pleural effusions. No pulmonary embolus ? VBG pH 7.37, pCO2 44.6, pO2 44.2, O2 saturation 74%, lactic acid 1.5 ? NA 141, K4.2, chloride 110, CO2 31, BUN 15, CR 0.7, estimated GFR 80, GLU 109, total bili 0.9, AST 56, ALT 25, alk phos 56, troponin 0.02, CRP 21.7, BNP 6270, total protein 5.9. I will recheck mag, CBC, BMP in AM. Amyloidosis related CHF exacerbation: ? Patient states she sees [facility] amyloidosis specialist Dr. Sidhu. States that [facility] has told her that she suffers from CHF related to amyloid diagnosis. Patient given Lasix 40 mg IV x 1 in emergency room. Will continue Lasix 40 mg IV twice daily, fluid restriction 1.5 L/day, daily weights, telemetry, serial troponins. Cardiac diet. ?During recent hospitalization patient required oxygen. Patient weaned from oxygen by time of hospital discharge. Patient O2 saturation 70% emergency room. Patient may require oxygen at time of hospital discharge, so will order home oxygen evaluation. Hypertension: Hydralazine 10 mg IV every 6 hours as needed SBP greater than 160 Hyperlipidemia: Atorvastatin 40 mg p.o. nightly CAD: Admits to [place] 2022 and cared for at [facility]. Aspirin 81 mg p.o. daily, metoprolol 25 mg p.o. twice daily Chronic pain: Lyrica 50 mg p.o. nightly Anemia: Folic acid 1 mg p.o. daily MDM [place]opa: Moderate, patient suffering from exacerbation of amyloidosis related CHF with systemic symptoms of lower extremity swelling, SOB, RANDOLPH, malaise. Data: High, see above. Patient's daughter acted as independent historian during my interview with patient today. I spoke with the emergency room physician and agree the patient required hospitalization for IV Lasix management of CHF exacerbation. Risk: High, IV Lasix for amyloidosis CHF exacerbation management. The rest of prescription drug management as listed above. Patient will require frequent input/output/weight/renal function monitoring to ensure adequate CHF management without negative sequela. 35 minutes of total care time spent on patient by Dr. Ohara 02/01/2024
[2024-02-01 21:33] LABS: Troponin I 0.03 ng/ml (0.00-0.034)
[2024-02-01 23:36] LABS: Troponin I 0.03 ng/ml (0.00-0.034)
[2024-02-02] VITALS (13 sets, daily range): BP systolic 103–147; BP diastolic 47–86; PULSE 76–132; RESP 12–19; TEMP 36.6–36.9; O2SAT 92–99; BMI 26.4
--- NOTE | 2024-02-02 04:44 | PC.NURSE ---
83 yo fe pt admitted with heart failure. Pt is A/O X 3 but often allows daughter to speak for her. Pt denies increased SOA at rest and with 02 on at 2 liters/nc. She has rested well most of the night. VS WNL for pt
[2024-02-02] MEDS: PANTOPRAZOLE 40MG TABLET 40 MG PO (06:17)
--- NOTE | 2024-02-02 06:50 | ECG_ITS ---
APPROVED REPORT Exam: Resting ECG HR:121 bpm ECG Measurements Heart Rate 121 AXES QRSd 113 QRS 1 QT 320 T 37 QTc 392 Conclusion ATRIAL FLUTTER/TACHYCARDIA WITH RAPID VENTRICULAR RESPONSE WITH ABERRANT CONDUCTION OR VENTRICULAR PREMATURE COMPLEXES LOW QRS VOLTAGE IN PRECORDIAL LEADS [QRS DEFLECTION < 1.0 mV IN CHEST LEADS] INCOMPLETE RIGHT BUNDLE BRANCH BLOCK [90+ ms QRS DURATION, TERMINAL R IN V1/V2, 40+ ms S IN I/aVL/V4/V5/V6] INFERIOR MYOCARDIAL INFARCTION , PROBABLY OLD [40+ ms Q WAVE AND/OR ST/T ABNORMALITY IN II/aVF] ABNORMAL ECG UNCONFIRMED REPORT Electronically signed by : Harjit Hernandez MD 02/02/2024 17:00:22
[2024-02-02] MEDS: METOPROLOL TARTRATE 5MG/5ML VIAL 5 MG IV (08:04)
[2024-02-02] MEDS: dilTIAZem HCL 100 MG in 0.9 % SODIUM CHLORIDE 100 ML IV (08:14)
[2024-02-02 08:16] LABS: Chloride 107 mmol/L (98-107); Sodium 141 mmol/L (136-145)
[2024-02-02 08:19] LABS: Blood Urea Nitrogen 12 mg/dl (7-17); Carbon Dioxide 31 mmol/L (22.0-30.0); Cholesterol 116 mg/dl (140-200); Creatinine Clearance Estimated 48 mL/min (50-200); Estimated Glomerular Filt Rate 80 ml/min (>60); GFR (African American) 96 ML/MIN (>60); Triglycerides 112 mg/dl (30-150); VLDL Cholesterol 22 mg/dL (0-40)
[2024-02-02 08:20] LABS: Chol/HDL Ratio 3.1 (1-3.5); Glucose 84 mg/dl (74-100); HDL Cholesterol 38 mg/dl (40-60); Magnesium 1.7 mg/dl (1.6-2.3)
[2024-02-02 08:31] LABS: Direct LDL Cholesterol 51.49 mg/dL (100-129)
[2024-02-02] MEDS: ACETAMINOPHEN 325MG TAB 650 MG PO ×2 (08:36→18:57)
[2024-02-02 08:41] LABS: Hematocrit 34.1 % (37.0-47.0); Hemoglobin 11.2 g/dL (12.2-16.2); Mean Corpuscular HGB Conc 32.8 g/dL (31.8-35.4); Mean Corpuscular Hemoglobin 33.6 pg (27.0-31.2); Mean Corpuscular Volume 102.4 fl (81-99); Mean Platelet Volume 11.4 fl (7.4-10.4); Platelet Count 201 K/mm3 (142-424); Red Blood Count 3.33 M/mm3 (4.20-5.40); Red Cell Distribution Width 18.5 % (11.5-17.5)
[2024-02-02 08:42] LABS: Basophils % 0.2 % (0.1-2.0); Eosinophils # 0.2 K/mm3 (0.0-0.4); Eosinophils % 5.7 % (0.1-12.0); Lymphocytes # 1.1 K/mm3 (0.7-4.5); Lymphocytes % 27.4 % (10-50); Monocytes # 0.4 K/mm3 (0.1-1.0); Monocytes % 8.7 % (1.7-9.3); Neutrophils # 2.3 K/mm3 (1.8-7.8); Neutrophils % 57.8 % (37.0-80.0)
[2024-02-02] MEDS: PREGABALIN 100MG CAPSULE 100 MG PO ×2 (09:15→20:25)
[2024-02-02] MEDS: FOLIC ACID 1MG TABLET 2 MG PO (09:16)
[2024-02-02] MEDS: DOCUSATE SODIUM 100 MG CAPSULE 300 MG PO ×2 (09:16→20:23)
[2024-02-02] MEDS: ENOXAPARIN 40MG/0.4ML SYRINGE 40 MG SUBCUT (09:16)
[2024-02-02] MEDS: ASPIRIN 81MG CHEWABLE TABLET 81 MG PO (09:16)
[2024-02-02] MEDS: METOPROLOL TARTRATE 25MG TABLET 25 MG PO ×2 (09:16→20:23)
[2024-02-02] MEDS: FUROSEMIDE 40MG/4ML VIAL 40 MG IV ×2 (09:17→17:26)
[2024-02-02] MEDS: dilTIAZem 60MG TABLET 60 MG PO (13:07)
[2024-02-02 13:56] LABS: HIV Combo NEGATIVE (Negative)
--- NOTE | 2024-02-02 16:09 | P.PN_ITS ---
Subjective *Date: 02/02/24 *Time: 16:31 Interval history: Skin denies any chest pain this morning. Able to lay flat which is an improvement from admission. To room air during rounds, sats remained above 90. No nausea or vomiting. Medical Exam Vital signs and Labs for Last 24 Hours: Vital Signs Temp Pulse Pulse Resp BP BP Pulse Ox 02/02/24 15:32 02/02/24 15:00 02/02/24 14:00 98.2 F 94 H 16 115/47 L 02/02/24 13:00 02/02/24 12:00 99 H 16 118/58 L 95 02/02/24 12:00 90 02/02/24 11:00 02/02/24 10:00 106 H 14 111/67 96 02/02/24 09:00 105 H 16 117/67 96 02/02/24 09:00 02/02/24 08:30 119 H 15 120/71 95 02/02/24 08:00 02/02/24 07:58 132 H 15 136/72 96 02/02/24 06:53 02/02/24 05:00 02/02/24 05:00 80 02/02/24 04:00 97.8 F 85 14 147/86 H 99 02/02/24 03:00 02/02/24 01:00 02/02/24 00:00 98.4 F 76 14 146/75 H 97 02/01/24 23:00 02/01/24 21:00 02/01/24 20:00 97 02/01/24 19:46 70 02/01/24 19:32 98.2 F 90 20 135/61 02/01/24 19:00 83 161/79 H 97 02/01/24 18:30 85 165/80 H 98 02/01/24 18:15 92 H 96 02/01/24 17:31 88 165/82 H 98 02/01/24 17:15 88 159/92 H 97 02/01/24 17:06 96 02/01/24 17:05 97.9 F 87 23 159/92 H 85 L O2 Del Method O2 Flow Rate 02/02/24 15:32 Nasal Cannula 2 02/02/24 15:00 Nasal Cannula 2 02/02/24 14:00 Nasal Cannula 2 02/02/24 13:00 Nasal Cannula 2 02/02/24 12:00 Nasal Cannula 2 02/02/24 12:00 02/02/24 11:00 Nasal Cannula 2 02/02/24 10:00 Nasal Cannula 2 02/02/24 09:00 Nasal Cannula 2 02/02/24 09:00 Nasal Cannula 2 02/02/24 08:30 Nasal Cannula 2 02/02/24 08:00 Nasal Cannula 2 02/02/24 07:58 Nasal Cannula 2 02/02/24 06:53 Nasal Cannula 2 02/02/24 05:00 Nasal Cannula 2 02/02/24 05:00 02/02/24 04:00 Nasal Cannula 2 02/02/24 03:00 Nasal Cannula 2 02/02/24 01:00 Nasal Cannula 2 02/02/24 00:00 Nasal Cannula 2 02/01/24 23:00 Nasal Cannula 2 02/01/24 21:00 Nasal Cannula 2 02/01/24 20:00 Nasal Cannula 2 02/01/24 19:46 02/01/24 19:32 02/01/24 19:00 02/01/24 18:30 02/01/24 18:15 Nasal Cannula 2 02/01/24 17:31 02/01/24 17:15 02/01/24 17:06 Nasal Cannula 2 02/01/24 17:05 Room Air Intake and Output 02/02/24 02/02/24 02/02/24 07:59 15:59 23:59 Intake Total 749.667 / 749.667 Output Total 1950 / 1950 Balance -1950 / -1200.333 749.667 / -1200.333 Intake: Intake, Oral Amount 720 / 720 Intake, Total IV Amount 29.667 / 29.667 Output: Output, Urine Amount 1950 / 1950 Other: Number of Unmeasured Voids 0 450 Weight 71.849 kg Patient Weight 02/02/24 23:59 Weight 71.849 kg Laboratory Results - last 24 hr 02/01/24 17:29: VBG pH 7.37, VBG pCO2 44.6, VBG pO2 44.2 H, VBG HCO3 24.9, VBG Total CO2 26.3, VBG O2 Saturation 74.0 H, VBG Base Excess -0.5, VBG Lactic Acid 1.5 02/01/24 17:50: WBC 5.3, RBC 3.46 L, Hgb 11.9 L, Hct 36.8 L, MCV 106.6 H, MCH 34.5 H, MCHC 32.4, RDW 19.8 H, Plt Count 222 D, MPV 9.3, Neut % (Auto) 77.2, Lymph % (Auto) 13.7, [place] % (Auto) 5.0, Eos % (Auto) 3.1, Baso % (Auto) 1.0, Neut # (Auto) 4.1, Lymph # (Auto) 0.7, [place] # (Auto) 0.3, Eos # (Auto) 0.2, Baso # (Auto) 0.1, Sodium 141, Potassium 4.2, Chloride 110 H, Carbon Dioxide 31 H, Anion Gap 4.2 L, BUN 15, Creatinine 0.70, Estimated Creat Clear 45, Estimated GFR 80, Est GFR ( Amer) 96, Glucose 109 H, Calcium 9.1, Total Bilirubin 0.9, AST 56 H, ALT 25, Alkaline Phosphatase 56, Troponin I 0.02, C-Reactive Protein 21.7 H, NT-Pro-B Natriuret Pep 6270 H, Total Protein 5.9 L, Albumin 3.5, Globulin 2.4, Albumin/Globulin Ratio 1.5, Procalcitonin 0.078 02/01/24 21:00: Troponin I 0.03 02/01/24 23:10: Troponin I 0.03, HIV Ag/Ab Combo Qual Negative 02/02/24 07:30: WBC 4.0 L, RBC 3.33 L, Hgb 11.2 L, Hct 34.1 L, MCV 102.4 H, MCH 33.6 H, MCHC 32.8, RDW 18.5 H, Plt Count 201, MPV 11.4 H, Neut % (Auto) 57.8, Lymph % (Auto) 27.4, [place] % (Auto) 8.7, Eos % (Auto) 5.7, Baso % (Auto) 0.2, Neut # (Auto) 2.3, Lymph # (Auto) 1.1, [place] # (Auto) 0.4, Eos # (Auto) 0.2, Baso # (Auto) 0.0, Sodium 141, Potassium 4.0, Chloride 107, Carbon Dioxide 31 H, Anion Gap 7.0, BUN 12, Creatinine 0.70, Estimated Creat Clear 48, Estimated GFR 80, Est GFR ( Amer) 96, Glucose 84 D, Calcium 9.0, Magnesium 1.7, Triglycerides 112, Cholesterol 116 L, LDL Cholesterol Direct 51.49 L, VLDL Cholesterol 22, HDL Cholesterol 38 L, Cholesterol/HDL Ratio 3.1 I & O for Labs for Last 24 Hours: Intake & Output 01/30/24 01/31/24 02/01/24 02/02/24 23:59 23:59 23:59 23:59 Intake Total 749.667 / 749.667 Output Total 1950 / 1950 Balance -1200.333 / -1200.333 Weight 68.039 kg 71.849 kg Constitutional: Present no acute distress, average body habitus, chronically ill appearing and cooperative Head: Present atraumatic and normocephalic ENT: Present normal exam Respiratory: Present normal respiratory effort; Absent rhonchi, wheezes or crackles Cardiac: Present Tachycardia Comment:: Irregularly irregular GI: Present soft and normal bowel sounds; Absent distention or tenderness Extremities: Present normal inspection, full ROM and edema (2+ to knees) Skin: Present intact; Absent erythema Neuro: Present Grossly Intact, alert, awake, oriented x 3 and moves all extremities Assessment and Plan *Assessment and plan (1) Atrial fibrillation with RVR: Status: Acute Category: Medical Code(s): I48.91 - Unspecified atrial fibrillation (2) CHF exacerbation: Status: Acute Category: Medical Code(s): I50.9 - Heart failure, unspecified (3) HTN (hypertension), benign: Status: Acute Category: Medical Code(s): I10 - Essential (primary) hypertension (4) HLD (hyperlipidemia): Status: Acute Category: Medical Code(s): E78.5 - Hyperlipidemia, unspecified (5) GERD (gastroesophageal reflux disease): Status: Acute Category: Medical Code(s): K21.9 - Gastro-esophageal reflux disease without esophagitis Plan 80-year-old presents with SOB, RANDOLPH, lower extremity swelling for 7 days. Patient has past medical history of amyloidosis, hypertension, recent small bowel obstruction admission, anemia, CAD, hypertension, hyperlipidemia, osteoporosis GERD. BNP 6270, CTA chest b/l effusions. Pt admitted for amyliodosis related CHF exacerbation. Overnight developed A-fib with RVR. Started on diltiazem drip. Will consult cardiology to see patient in the morning. Continues to require inpatient management. Problems addressed as follows: Amyloidosis related CHF exacerbation: ? Patient states she sees amyloidosis specialist Dr. Sidhu. States that has told her that she suffers from CHF related to amyloid diagnosis. - Continue Lasix 40 mg IV twice daily. fluid restriction 1.5 L/day, daily weights, telemetry, serial troponins. Cardiac diet. ? CT obtained, no significant effusion or focal consolidation per my review. Weaned to 2 L nasal cannula on morning rounds. Supplemental oxygen as needed for goal sats greater than 90%. A-fib with RVR: Became tachyarrhythmic early in the morning. Started on diltiazem drip. Will continue metoprolol tartrate 25 mg twice daily. Initiate diltiazem 60 mg once and discontinue drip after an hour. Rate control improved. Fluctuating between 90 and 110. Continue home diltiazem extended release 180 mg nightly. -Missed her dose last night of diltiazem. Continue to therapeutic Lovenox. Consider anticoagulation in the morning. -Echocardiogram ordered. Cardiology consulted to evaluate patient tomorrow -BNP severely elevated at 6200. White count normal at 4, hemoglobin 11. Kidney function normal at 12 BUN and creatinine 0.7. Electrolytes stable with potassium 4.0, magnesium 1.7. Repeat CBC, CMP, magnesium ordered for the morning. Hypertension: Hydralazine 10 mg IV every 6 hours as needed SBP greater than 160 Hyperlipidemia: Atorvastatin 40 mg p.o. nightly CAD: Admits to [place] 2022 and cared for at [facility]. Aspirin 81 mg p.o. daily, metoprolol 25 mg p.o. twice daily Chronic pain: Lyrica 50 mg p.o. nightly Anemia: Folic acid 1 mg p.o. daily PT and OT to evaluate in the morning due to patient's general weakness Full code Cardiac diet Lovenox
--- NOTE | 2024-02-02 16:37 | PC.NURSE ---
Pt is A&O x4. Currently resting in bed. Has c/o chronic discomfort to her back. Diltiazem gtt DC at 1410. Pt Administered PO diltiazem one hour prior to gtt discontinued. HR 90s to 110s. BP stable. Pt is on 2L NC with sats low to mid 90s. Call light within reach. Family at bedside.
[2024-02-02] MEDS: MULTIVITAMIN TABLET 1 EACH PO (17:26)
[2024-02-02] MEDS: ENOXAPARIN 40MG/0.4ML SYRINGE 70 MG SUBCUT (20:23)
[2024-02-02] MEDS: ATORVASTATIN 40MG TABLET 40 MG PO (20:23)
[2024-02-02] MEDS: dilTIAZem HCL 180MG CAP.ER.24H 180 MG PO (20:23)
[2024-02-02] MEDS: PREGABALIN 50MG CAPSULE 50 MG PO (20:25)
[2024-02-03] VITALS (12 sets, daily range): BP systolic 108–168; BP diastolic 48–96; PULSE 82–127; RESP 13–20; TEMP 36.6–38.2; O2SAT 92–96; BMI 26.4
--- NOTE | 2024-02-03 06:29 | CA_ITS ---
APPROVED REPORT EXAM: Comprehensive 2D, Doppler, and color-flow Echocardiogram Director Pharmacy Services: Idalmis Pal CRT Ht: 5 ft 4 in Wt: 158lbs BSA: 1.77 BP: 135/60 mmHg Indications: Congestive Heart Failure, Shortness of Breath, Atrial Fibrillation, Atrial Flutter, Hyperlipidemia, Hypertension/HDD, pleural effusion 2D Dimensions LA Volume 23.50 mL LA Volume Index 13.00 mL/m2 (M/F) 16-34 M-Mode Dimensions RVDd 3.13 cm (0.9-2.6) LA Diam 3.38 cm (1.9-4.0) LVDd 3.66 cm (3.5-5.7) LVDs 3.17 cm (3.5-5.7) IVSd 1.96 cm (0.6-1.1) PWd 0.71 cm (0.6-1.1) EF (Teich) 29.30% FS 13.40% EDV (Teich) 56.60 mL ESV (Teich) 40.00 mL LV Diastology E Decel Time 150 (160-240 msec) E/A Ratio 3.28 MED A' 2.50 cm/s LAT A' 4.40 cm/s Aortic Valve AO Peak GR. 5.20 mmHg Mitral Valve MV E Max Albert. 138.0 (40-130 cm/s) MV A Velocity 42.0 (40-130 cm/s) E/A Ratio 3.28 MV PHT 44.0 ms Pulmonary Valve PV Peak Velocity 166.0 (50-150 cm/s) Tricuspid Valve TR P. Velocity 263.00 cm/s RAP Estimate 10.00 mmHg RVSP 37.70 mmHg Left Ventricle The left ventricle is normal size. The left ventricular systolic function is normal. The left ventricular ejection fraction is within the normal range. There is marked increase in LV wall thickness. IVSD is 1.5 cm. There is normal LV segmental wall motion. Grade 3 diastolic dysfunction is present. LVEF is 65%. Right Ventricle The right ventricle is moderately dilated. Right ventricle is moderately hypokinetic. Atria The left atrium is severely dilated. The right atrium is moderately dilated. There is no Doppler evidence of interatrial shunt. Aortic Valve The aortic valve leaflets are mildly thickened. There is no aortic valvular stenosis. Trace aortic regurgitation. Mitral Valve Mild mitral annular calcification. The mitral valve leaflets are mildly thickened. No evidence of mitral valve stenosis. Moderate mitral regurgitation. Tricuspid Valve The tricuspid valve leaflets are thin and pliable. Moderate tricuspid regurgitation. RVSP is 30-35 mm. Pulmonic Valve The pulmonary valve is normal in structure. Trace pulmonic regurgitation. Great Vessels The aortic root is normal in size. The ascending aorta is not well-visualized. IVC is normal in size and collapses >50% with inspiration. Pericardium There is no pericardial effusion. Other Information Study Quality: Fair Conclusion Normal LV systolic function (LVEF 65%). Marked increase in LV wall thickness. IVSD is 1.5 cm. Grade 3 diastolic dysfunction. Moderate RV dilation with moderate reduction in RV function. Biatrial dilation. Moderate MR, moderate TR. RVSP is 30-35 mm. In the setting of marked increased LV wall thickness, diastolic dysfunction, and biatrial dilation, further outpatient evaluation for infiltrative cardiomyopathy is suggested with cardiac MRI (amyloidosis protocol), PYP nuclear scan, and amyloidosis lab testing. Electronically signed by : Dominique Meyers MD 02/03/2024 10:33:40
[2024-02-03] MEDS: ACETAMINOPHEN 325MG TAB 650 MG PO ×2 (06:52→18:52)
[2024-02-03] MEDS: PANTOPRAZOLE 40MG TABLET 40 MG PO (06:52)
[2024-02-03 07:23] LABS: Chloride 102 mmol/L (98-107); Potassium 3.7 mmoL/L (3.5-5.1); Sodium 134 mmol/L (136-145)
[2024-02-03 07:26] LABS: Anion Gap -0.3 mEq/L (5-15); Blood Urea Nitrogen 19 mg/dl (7-17); Calcium 9.1 mg/dl (8.4-10.2); Carbon Dioxide 36 mmol/L (22.0-30.0); Creatinine Clearance Estimated 48 mL/min (50-200); Estimated Glomerular Filt Rate 53 ml/min (>60); GFR (African American) 64 ML/MIN (>60); Glucose 79 mg/dl (74-100)
[2024-02-03 07:27] LABS: Magnesium 1.5 mg/dl (1.6-2.3)
[2024-02-03 07:28] LABS: Basophils % 0.8 % (0.1-2.0); Eosinophils # 0.4 K/mm3 (0.0-0.4); Eosinophils % 6.8 % (0.1-12.0); Hematocrit 34.8 % (37.0-47.0); Hemoglobin 11.9 g/dL (12.2-16.2); Lymphocytes # 1.1 K/mm3 (0.7-4.5); Lymphocytes % 21.6 % (10-50); Mean Corpuscular HGB Conc 34.2 g/dL (31.8-35.4); Mean Corpuscular Hemoglobin 34.8 pg (27.0-31.2); Mean Corpuscular Volume 101.8 fl (81-99); Mean Platelet Volume 9.5 fl (7.4-10.4); Monocytes # 0.4 K/mm3 (0.1-1.0); Monocytes % 7.2 % (1.7-9.3); Neutrophils # 3.3 K/mm3 (1.8-7.8); Neutrophils % 63.5 % (37.0-80.0); Platelet Count 235 K/mm3 (142-424); Red Blood Count 3.42 M/mm3 (4.20-5.40); Red Cell Distribution Width 19.3 % (11.5-17.5); White Blood Count 5.1 K/mm3 (4.8-10.8)
[2024-02-03] MEDS: FOLIC ACID 1MG TABLET 2 MG PO (08:21)
[2024-02-03] MEDS: ENOXAPARIN 80MG/0.8ML SYRINGE 70 MG SUBCUT ×2 (08:21→19:54)
[2024-02-03] MEDS: ASPIRIN 81MG CHEWABLE TABLET 81 MG PO (08:21)
[2024-02-03] MEDS: DOCUSATE SODIUM 100 MG CAPSULE 300 MG PO ×2 (08:21→19:52)
[2024-02-03] MEDS: METOPROLOL TARTRATE 25MG TABLET 25 MG PO ×2 (08:22→19:53)
[2024-02-03] MEDS: FUROSEMIDE 40MG/4ML VIAL 40 MG IV ×2 (08:22→16:58)
[2024-02-03] MEDS: dilTIAZem 30MG TABLET 30 MG PO (08:28)
[2024-02-03] MEDS: MAGNESIUM SULFATE IN WATER 2 GM/50 ML PIGGYBACK IV ×2 (08:29→14:34)
[2024-02-03] MEDS: PREGABALIN 100MG CAPSULE 100 MG PO ×2 (08:30→19:57)
[2024-02-03 10:08] LABS: HCV Ab Non Reactive (Non Reactive)
--- NOTE | 2024-02-03 13:41 | HMH.PTEV ---
Physical Therapy Evaluation Rehab PT IP Evaluation Start: 02/03/24 10:20 Freq: ONCE Status: Active Protocol: Document 02/03/24 13:35 AMARIS (Rec: 02/03/24 13:40 AMARIS [id number]) Subjective/History History History Per H&P: 80-year-old presents with SOB, RANDOLPH, lower extremity swelling for 7 days. Patient has past medical history of amyloidosis, hypertension, recent small bowel obstruction admission( to 01/28), anemia, CAD, hypertension, hyperlipidemia, osteoporosis GERD. Patient for brought to hospital by daughter for shortness of breath evaluation. Patient desat to 70% on room air in emergency room. Patient's O2 saturations increased to 90% on 2 L nasal cannula. Admits to nausea and loose bowel movements in past 24 hours. Also has a rattly cough that started today. Patient and patient's daughter state that lower extremity swelling has gotten worse since Saturday. Denies fevers, chills, known sick contacts, recent travel, chest pain, abdominal pain, history of lung problems. Patient has known diagnosis of amyloidosis and is taking care of by Dr. Sidhu at [facility]. Also states her amyloidosis was diagnosed with a blood test done at . 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 Admits to [place] 2022 cared for at [facility]. BNP 6270, CTA chest b/l effusions. Both lactic acid and patient's procalcitonin normal at time of admission assessment by myself. Subjective Subjective Pt reports she lives on the first floor in a 2-story home. Pt's daughter and her live on the second floor and assist pt with tasks as needed . Pt reports she was mostly IND with mobility prior to admission using a rollator. New diagnosis of cancer in past 12 No months? Rehab PT IP Eval Objective Appearance Patient Behavior Appropriate,Cooperative Patient Orientation Person,Place,Situation Difficulty following instructions none Speech Pattern Clear Ambulation Patient Able to Ambulate Yes Ambulation Observation Ambulation Distance (feet) 30 Ambulation Assistive Device Rolling Walker Ambulation Ability Contact Guard/Hand Hold Balance Ability to Arise Able, uses arms to help Sitting Balance Steady, safe Standing Balance Steady, wide stance Dynamic Sitting Balance Ability Good Dynamic Standing Balance Ability Good Transfers Bed Transfer Ability Supervision/Stand by Sit to Stand Bed Transfer Ability Supervision/Stand by Rehab PT IP prob,goals,plan Problems Date of Evaluation: 02/03/24 Rehab Potential Rehab Potential Innapropriate for Skilled Therapy Discharge Plan PT Discharge Plan Pt safe to d/c home when deemed medically necessary d/t current level of mobility, home set-up, and family support. Pt not appropriate for skilled acute care PT at this time d/t pt?s mobility being at baseline. Recommending PT services to address deficits. Eval Complexity Eval Charge Codes 90312 - Moderate Complexity PHYSICIAN CERTIFICATION: I certify the specified therapy services for Chen Merritt are required, authorized, and reviewed every 30 days.
--- NOTE | 2024-02-03 13:42 | EXP.CARD.CON ---
History of Present Illness History of Present Illness Consult date: 02/03/24 Requesting physician: Karl Burkett Consult reason: shortness of breath Chief complaint: SOA and edema History of present illness: This is an 83-year-old white female who presented to the emergency department with a 7-day history of shortness of breath and lower extremity edema. The patient states that she has just not been feeling well for approximately a week. She states that her shortness of breath got so severe and she was unable to do any activity at the house. The patient's daughter came to her house and her oxygen saturations were 70% on room air. She was brought to the emergency department because of her significant shortness of breath and low oxygen levels. She had an associated cough that started the day of admission. She states that her legs were more swollen than usual. She denied any fever, chills, vomiting or diarrhea. She states that she was significantly nauseated with the shortness of breath. She felt as if she had to vomit but never did. The patient does report that she sees a hotel clerk at [facility] regularly but also sees a specialist at [facility] at [facility] for amyloidosis. She states that she has tried multiple medications in the past for the amyloidosis but she was unable to tolerate any of these. [facility] Disclaimer: The information contained in this section may have been updated after the patient was seen, as this information can be updated by other users. Medical History (Updated 02/03/24 @ 13:46 by Marisel Centeno APRN) Acute on chronic heart failure with preserved ejection fraction (HFpEF) CAD (coronary artery disease) Rheumatoid arthritis Psoriatic arthritis Liver cyst Amyloidosis Neuropathy Osteoporosis GERD (gastroesophageal reflux disease) Degenerative disc disease HTN (hypertension), benign HLD (hyperlipidemia) Surgical History S/P CABG (coronary artery bypass graft) History of discectomy History of open heart surgery History of cholecystectomy H/O total hysterectomy Family History Sister Cancer Breast Ca Unknown Cancer Breast Ca Unknown Cancer Rare type of cancer with low platelets-Leukemia Family/Other Anemia increased weakness and fatigue Hypertension Other Coronary artery disease Heart attack Social History (Updated 02/01/24 @ 23:00 by Marianela Medina RN) Smoking Status: Never smoker alcohol intake: never substance use type: denies use current occupational status: retired Travel in the last 8 weeks: None housing: house caffeine: Yes physical activity: walking and yoga frequency: daily duration: 15-30 minutes/day do you feel safe at home: Yes victim of physical abuse: No victim of emotional abuse: No victim of sexual abuse: No would you like helpful sources: No Have you lived/traveled outside [place] in past 30 days?: No Contact w/someone who lives/traveled outside US past 30 days?: No Exposure to someone with infectious disease in past 14 days?: No Do you have a fever (greater than 100.4 F or 38 C)?: No Have you tested positive for COVID-19: No Exposed to someone with COVID-19 in past 14 days?: No Do you have a sore throat?: No Do you have a cough?: No Do you have any weakness?: No Are you experiencing any nausea/vomitting?: No Do you have any diarrhea?: Yes Are you experiencing any unusual bleeding?: No Do you have any muscle aches/pain?: No Do you have any abdominal pain?: No Are you experiencing loss of taste or smell?: No Review of Systems Review of Systems Review of systems:: pertinent systems reviewed and negative unless documented below Constitutional Constitutional: Reports system reviewed and no additional complaints, except as documented, Reports fatigue, Reports lethargy and Reports malaise Eyes Eyes: Reports system reviewed and no additional complaints, except as documented ENT Ears, Nose, Mouth, and Throat: Reports system reviewed and no additional complaints, except as documented *Cardiovascular Cardiovascular: Reports system reviewed and no additional complaints, except as documented, Denies chest pain, Reports dyspnea, Reports dyspnea on exertion and Reports orthopnea *Respiratory Respiratory: Reports system reviewed and no additional complaints, except as documented, Reports chest congestion, Reports cough, Reports dyspnea and Reports dyspnea on exertion *Gastrointestinal Gastrointestinal: Reports system reviewed and no additional complaints, except as documented, Reports nausea and Denies vomiting *Genitourinary Genitourinary: Reports system reviewed and no additional complaints, except as documented *Musculoskeletal Musculoskeletal: Reports system reviewed and no additional complaints, except as documented Integumentary/Breasts Skin/Breast: Reports system reviewed and no additional complaints, except as documented *Neurologic Neurologic: Reports system reviewed and no additional complaints, except as documented Psychiatric Psychiatric: Reports system reviewed and no additional complaints, except as documented Endocrine Endocrine: Reports system reviewed and no additional complaints, except as documented and Reports fatigue Hematologic/Lymphatic Hematologic/Lymphatic: Reports system reviewed and no additional complaints, except as documented Allergic/Immunologic Allergic/Immunologic: Reports system reviewed and no additional complaints, except as documented Exam Data for Last 24 hours Vital signs and Labs for Last 24 Hours: Temp Pulse Resp BP Pulse Ox O2 Del Method O2 Flow Rate 98 F 82 18 122/73 96 Nasal Cannula 2 02/03/24 11:52 02/03/24 11:52 02/03/24 11:52 02/03/24 11:52 02/03/24 11:52 02/03/24 11:52 02/03/24 11:52 FiO2 28 02/02/24 18:29 Laboratory Results - last 24 hr 02/01/24 23:10: Hepatitis C Antibody Non reactive, HIV Ag/Ab Combo Qual Negative 02/03/24 05:36: WBC 5.1 D, RBC 3.42 L, Hgb 11.9 L, Hct 34.8 L, MCV 101.8 H, MCH 34.8 H, MCHC 34.2, RDW 19.3 H, Plt Count 235, MPV 9.5, Neut % (Auto) 63.5, Lymph % (Auto) 21.6, [place] % (Auto) 7.2, Eos % (Auto) 6.8, Baso % (Auto) 0.8, Neut # (Auto) 3.3, Lymph # (Auto) 1.1, [place] # (Auto) 0.4, Eos # (Auto) 0.4, Baso # (Auto) 0.0, Sodium 134 L, Potassium 3.7, Chloride 102, Carbon Dioxide 36 H, Anion Gap -0.3 L, BUN 19 H D, Creatinine 1.00 D, Estimated Creat Clear 48, Estimated GFR 53 L, Est GFR ( Amer) 64 D, Glucose 79, Calcium 9.1, Magnesium 1.5 L D I & O for Last 24 hours: Intake & Output 01/31/24 02/01/24 02/02/24 02/03/24 23:59 23:59 23:59 23:59 Intake Total 1229.667 / 1729.667 980 / 980 Output Total 2800 / 3600 1300 / 1300 Balance -1570.333 / -1870.333 -320 / -320 Weight 150 lb 158 lb 6.4 oz 158 lb 6.399 oz Narrative: Echocardiogram shows: Normal LV systolic function (LVEF 65%). Marked increase in LV wall thickness. IVSD is 1.5 cm. Grade 3 diastolic dysfunction. Moderate RV dilation with moderate reduction in RV function. Biatrial dilation. Moderate MR, moderate TR. RVSP is 30-35 mm. In the setting of marked increased LV wall thickness, diastolic dysfunction, and biatrial dilation, further outpatient evaluation for infiltrative cardiomyopathy is suggested with cardiac MRI (amyloidosis protocol), PYP nuclear scan, and amyloidosis lab testing. Constitutional Constitutional: no acute distress and average body habitus *Routine HEENT Exam Head: Present normocephalic and atraumatic ENT: Present mucous membranes moist *Routine Neck Exam Neck: Present supple, full ROM and normal carotid upstroke; Absent JVD, carotid bruit or lymphadenopathy *Routine Respiratory Exam Respiratory: Present CTA bilaterally, normal respiratory effort, able to speak in complete sentences and symmetric chest movement *Routine Cardiovascular Exam Cardiovascular: Present Normal S1, Normal S2, tachycardia and irregularly irregular; Absent murmur or gallop *Routine Abdominal Exam Abdominal: Present soft and normoactive bowel sounds; Absent tenderness, distended or organomegaly *Routine Extremities Exam Extremities: Present edema, full ROM, pulses intact and normal capillary refill; Absent cyanosis or clubbing *Routine Skin Exam Skin: Present intact and warm; Absent erythema *Routine Neurological Exam Neurological: Present alert, oriented X3 and CN II-XII intact; Absent sensory deficit or motor deficit Routine Psychiatric Exam Psychiatric: Present normal affect Meds Home Medications and Allergies Home Medications ?Medication ?Instructions ?Recorded ?Confirmed ?Type aspirin 81 mg chewable tablet 81 mg PO DAILY 04/11/21 02/01/24 History multivitamin 1 each PO HS 04/11/21 02/01/24 History methotrexate sodium 2.5 mg tablet 20 mg PO WEEKLY 01/22/22 02/01/24 History cetirizine 10 mg tablet (Allergy 10 mg PO DAILYP PRN Allergy 07/19/22 02/01/24 History Relief (cetirizine)) Symptoms pregabalin 50 mg capsule 50 mg PO HS 01/21/23 02/01/24 History denosumab 60 mg/mL subcutaneous 60 mg SQ [id number] 05/10/23 02/01/24 History syringe folic acid 1 mg tablet 2 mg PO DAILY 10/07/23 02/01/24 History metoprolol tartrate 25 mg tablet 25 mg PO BID 10/16/23 02/01/24 History albuterol sulfate 90 mcg/actuation 2 puff inhalation Q4HP PRN 01/26/24 02/01/24 History aerosol inhaler shortness of breath or wheezing atorvastatin 40 mg tablet 40 mg PO HS 01/26/24 02/01/24 History calcium carbonate 1 tab PO DAILY 01/26/24 02/01/24 History pantoprazole 40 mg tablet,delayed 40 mg PO AM 01/26/24 02/01/24 History release (Protonix) polysaccharide iron complex 180 mg 180 mg PO DAILY 01/26/24 02/01/24 History iron capsule (Pro Fe) pregabalin 100 mg capsule 100 mg PO BID 01/26/24 02/01/24 History diltiazem HCl 180 mg 180 mg PO HS 02/01/24 02/01/24 History capsule,extended release 24 hr New Prescriptions to Start Prescriptions: Allergies Allergy/AdvReac Type Severity Reaction Status Date / Time loratadine (From Claritin) Allergy Intermediate Rash Verified 01/25/24 23:16 Sulfa (Sulfonamide Allergy Intermediate rash/swelli Verified 01/25/24 23:16 Antibiotics) ng sulfamethoxazole (From Allergy Intermediate rash/swelli Verified 01/25/24 23:16 Bactrim) ng trimethoprim (From Bactrim) Allergy Intermediate rash/swelli Verified 01/25/24 23:16 ng nitrofurantoin (From AdvReac Hives Verified 01/25/24 23:16 Macrobid) Assessment and Plan *Assessment and plan (1) Atrial fibrillation with RVR: Status: Acute Category: Medical Code(s): I48.91 - Unspecified atrial fibrillation (2) HTN (hypertension), benign: Status: Acute Category: Medical Code(s): I10 - Essential (primary) hypertension (3) HLD (hyperlipidemia): Status: Acute Qualifiers: Hyperlipidemia type: mixed hyperlipidemia Qualified Code(s): E78.2 - Mixed hyperlipidemia Category: Medical Code(s): E78.5 - Hyperlipidemia, unspecified (4) GERD (gastroesophageal reflux disease): Status: Acute Qualifiers: Esophagitis presence: esophagitis presence not specified Qualified Code(s): K21.9 - Gastro-esophageal reflux disease without esophagitis Category: Medical Code(s): K21.9 - Gastro-esophageal reflux disease without esophagitis (5) Acute on chronic heart failure with preserved ejection fraction (HFpEF): Status: Acute Category: Medical Code(s): I50.33 - Acute on chronic diastolic (congestive) heart failure (6) Amyloidosis: Status: Acute Qualifiers: Amyloidosis type: unspecified amyloidosis Qualified Code(s): E85.9 - Amyloidosis, unspecified Category: Medical Code(s): E85.9 - Amyloidosis, unspecified Plan Plan: 1. The patient was admitted to the hospital with acute on chronic HFpEF. She is currently being treated with IV Lasix. Will continue to diurese the patient with IV Lasix today. Anticipate switching her over to oral Lasix tomorrow. 2. The patient did go into atrial fibrillation with RVR. She has been treated with diltiazem. Her dose has been increased to 240 mg p.o. daily and her heart rate has improved today. No continue current dose of metoprolol for suppression of atrial fibrillation as well. 3. The patient denies any chest pain or pressure. She ruled out for an NE. No plans for invasive left cardiac catheterization at this time. Continue aspirin 81 mg daily. 4. The patient is currently being anticoagulated with Lovenox. Prior to discharge home she will need to be on Xarelto or Eliquis. 5. Her LDL goal is less than 100. Her LDL is 51. She is on a statin. 6. Our goal for this patient is rate control of the atrial fibrillation. 7. The patient does have a history of amyloidosis. She sees a specialist at [facility] at [facility]. She has tried multiple medications in the past for amyloidosis including Vyndamax but was unable to tolerate these medications. 8. Further recommendations will be made pending the patient's response to treatment. Thank you for the opportunity to help participate in the care of this patient. All recommendations and orders are per Dr. Meyers.
--- NOTE | 2024-02-03 13:43 | HMH.OTEV ---
OT Inpatient Evaluation Rehab OT IP Evaluation Start: 02/03/24 10:20 Freq: ONCE Status: Active Protocol: Document 02/03/24 13:35 [facility] (Rec: 02/03/24 13:42 [facility] [id number]) Rehab OT IP Assessment Subjective History Pt oriented x 3 on arrival. Pt agreeable to engage in therapy evaluation. Pt admitted on 02/01/24 due to SOB/CHF exacerbation. History and physical: 80-year-old presents with SOB, RANDOLPH, lower extremity swelling for 7 days. Patient has past medical history of amyloidosis, hypertension, recent small bowel obstruction admission(01/25 to 01/28), anemia, CAD, hypertension, hyperlipidemia, osteoporosis GERD. Patient for brought to hospital by daughter for shortness of breath evaluation . Patient desat to 70% on room air in emergency room. Patient's O2 saturations increased to 90% on 2 L nasal cannula. Admits to nausea and loose bowel movements in past 24 hours. Also has a rattly cough that started today. Patient and patient's daughter state that lower extremity swelling has gotten worse since Saturday. Denies fevers, chills, known sick contacts, recent travel, chest pain, abdominal pain, history of lung problems. Patient has known diagnosis of amyloidosis and is taking care of by Dr. Sidhu at [facility]. Also states her amyloidosis was diagnosed with a blood test done at . 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 Admits to [place] 2022 cared for at [facility].BNP 6270, CTA chest b/l effusions. Both lactic acid and patient's procalcitonin normal at time of admission assessment by myself. Subjective I am doing better than I was. Prior to being in the hospital pt lived in a two level home. She lives on the first floor and her daughter and son in law live on the second floor. Pt claims normally she is independent with all ADLs such as dressing, bathing, and feeding. Normally she completes simple IADL tasks. 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 Pt normally uses a rolling walker during functional transfers. Pt does not have any steps she must go up and down in her home. Objective Patient Orientation Person,Place,Birthday Right Upper Extremity Gross ROM WFL Left Upper Extremity Gross ROM WFL Transfer Training Sit/Stand Transfer Assist Level Supervision/Stand by Chair Transfer Ability Supervision/Stand by Chair Transfer Technique Sit to/from Ambulatory Chair Transfer Assistive Devices Rolling Walker Lower Body Dressing Ability Standby Assistance Rehab OT IP prob,goals,plan Problems Date of Evaluation: 02/03/24 Rehab Potential Rehab Potential Innapropriate for Skilled Therapy Discharge Plan OT Discharge Plan Pt appears to be at her baseline with functional transfers and ADL independence . Therapist recommends OT evaluation upon returning home to evaluate environmental safety. Pt agreeable with this plan. Eval Complexity Eval Charge Codes 26220 - Low Complexity PHYSICIAN CERTIFICATION: I certify the specified therapy services for Chen Merritt are required, authorized, and reviewed every 30 days.
[2024-02-03] MEDS: MULTIVITAMIN TABLET 1 EACH PO (16:57)
[2024-02-03] MEDS: POLYETHYLENE GLYCOL 3350 17 GM PACKET PO (18:03)
--- NOTE | 2024-02-03 18:29 | PC.NURSE ---
pt has remained on 1L nc. pt asked for miralax, hospitalist made aware. order for miralax was placed and given. pt has had no other complaints. pt remains in a-fib. pt does have 2+ BLE swelling and is receiving diuresis. no new orders at this time. call light within reach.
--- NOTE | 2024-02-03 19:45 | P.PN_ITS ---
Subjective *Date: 02/03/24 *Time: 19:45 Interval history: Feeling somewhat better today. Denies stiffness in her arms and legs. No chest pain. Able to lay flat. Stable on 2 L oxygen overnight. Daughter at bedside. Medical Exam Vital signs and Labs for Last 24 Hours: Vital Signs Temp Pulse Pulse Resp BP Pulse Ox O2 Del Method 02/03/24 18:59 Nasal Cannula 02/03/24 17:00 Nasal Cannula 02/03/24 16:00 120 H 02/03/24 16:00 Room Air 02/03/24 15:31 98.3 F 100 H 18 130/69 95 Nasal Cannula 02/03/24 14:55 Room Air 02/03/24 13:00 Room Air 02/03/24 11:52 98 F 82 18 122/73 96 Nasal Cannula 02/03/24 11:43 90 02/03/24 11:00 Nasal Cannula 02/03/24 10:00 119 H 18 108/48 L 92 L Nasal Cannula 02/03/24 08:00 Nasal Cannula 02/03/24 08:00 113 H 20 133/76 92 L Nasal Cannula 02/03/24 08:00 100.7 F H 02/03/24 07:41 Nasal Cannula 02/03/24 07:00 Nasal Cannula 02/03/24 06:00 116 H 13 168/91 H 95 Nasal Cannula 02/03/24 04:00 90 02/03/24 04:00 98.1 F 02/03/24 04:00 115 H 15 158/96 H 95 Nasal Cannula 02/03/24 03:00 Nasal Cannula 02/03/24 02:00 119 H 16 138/88 94 L Nasal Cannula 02/03/24 01:00 Nasal Cannula 02/03/24 00:00 127 H 02/03/24 00:00 97.8 F 02/03/24 00:00 88 19 115/60 95 Nasal Cannula 02/02/24 23:00 Nasal Cannula 02/02/24 22:00 111 H 17 103/72 L 95 Nasal Cannula 02/02/24 21:00 Nasal Cannula 02/02/24 20:00 105 H 02/02/24 20:00 98.3 F 02/02/24 20:00 94 L Nasal Cannula 02/02/24 20:00 98 H 12 125/57 L 92 L Nasal Cannula O2 Flow Rate 02/03/24 18:59 1 02/03/24 17:00 1 02/03/24 16:00 02/03/24 16:00 02/03/24 15:31 2 02/03/24 14:55 02/03/24 13:00 02/03/24 11:52 2 02/03/24 11:43 02/03/24 11:00 1 02/03/24 10:00 1 02/03/24 08:00 1 02/03/24 08:00 2 02/03/24 08:00 02/03/24 07:41 2 02/03/24 07:00 2 02/03/24 06:00 2 02/03/24 04:00 02/03/24 04:00 02/03/24 04:00 2 02/03/24 03:00 2 02/03/24 02:00 2 02/03/24 01:00 2 02/03/24 00:00 02/03/24 00:00 02/03/24 00:00 2 02/02/24 23:00 2 02/02/24 22:00 2 02/02/24 21:00 02/02/24 20:00 02/02/24 20:00 02/02/24 20:00 2 02/02/24 20:00 2 Intake and Output 02/03/24 02/03/24 02/03/24 07:59 15:59 23:59 Intake Total 500 / 1900 680 / 1900 720 / 1900 Output Total 1300 / 1300 Balance -800 / 600 680 / 600 720 / 600 Intake: Intake, Oral Amount 500 / 1900 680 / 1900 720 / 1900 Output: Output, Urine Amount 1300 / 1300 Other: Number of Unmeasured Voids 0 Weight 71.849 kg Patient Weight 02/03/24 23:59 Weight 71.849 kg Laboratory Results - last 24 hr 02/01/24 23:10: Hepatitis C Antibody Non reactive 02/03/24 05:36: WBC 5.1 D, RBC 3.42 L, Hgb 11.9 L, Hct 34.8 L, MCV 101.8 H, MCH 34.8 H, MCHC 34.2, RDW 19.3 H, Plt Count 235, MPV 9.5, Neut % (Auto) 63.5, Lymph % (Auto) 21.6, [place] % (Auto) 7.2, Eos % (Auto) 6.8, Baso % (Auto) 0.8, Neut # (Auto) 3.3, Lymph # (Auto) 1.1, [place] # (Auto) 0.4, Eos # (Auto) 0.4, Baso # (Auto) 0.0, Sodium 134 L, Potassium 3.7, Chloride 102, Carbon Dioxide 36 H, Anion Gap -0.3 L, BUN 19 H D, Creatinine 1.00 D, Estimated Creat Clear 48, Estimated GFR 53 L, Est GFR ( Amer) 64 D, Glucose 79, Calcium 9.1, Magnesium 1.5 L D I & O for Labs for Last 24 Hours: Intake & Output 01/31/24 02/01/24 02/02/24 02/03/24 23:59 23:59 23:59 23:59 Intake Total 1229.667 / 2334.094 5340 / 1900 Output Total 2800 / 3600 1300 / 1300 Balance -1570.333 / -1870.333 600 / 600 Weight 68.039 kg 71.849 kg 71.849 kg Constitutional: Present no acute distress, average body habitus, chronically ill appearing and cooperative Head: Present atraumatic and normocephalic ENT: Present normal exam Respiratory: Present normal respiratory effort; Absent rhonchi, wheezes or crackles Cardiac: Present Regular Rate Comment:: Irregularly irregular GI: Present soft and normal bowel sounds; Absent distention or tenderness Extremities: Present normal inspection, full ROM and edema (2+ to knees) Skin: Present intact; Absent erythema Neuro: Present Grossly Intact, alert, awake, oriented x 3 and moves all extremities Assessment and Plan *Assessment and plan (1) Atrial fibrillation with RVR: Status: Acute Category: Medical Code(s): I48.91 - Unspecified atrial fibrillation (2) Acute on chronic heart failure with preserved ejection fraction (HFpEF): Status: Acute Category: Medical Code(s): I50.33 - Acute on chronic diastolic (congestive) heart failure (3) HTN (hypertension), benign: Status: Acute Category: Medical Code(s): I10 - Essential (primary) hypertension (4) HLD (hyperlipidemia): Status: Acute Qualifiers: Hyperlipidemia type: mixed hyperlipidemia Qualified Code(s): E78.2 - Mixed hyperlipidemia Category: Medical Code(s): E78.5 - Hyperlipidemia, unspecified (5) GERD (gastroesophageal reflux disease): Status: Acute Qualifiers: Esophagitis presence: esophagitis presence not specified Qualified Code(s): K21.9 - Gastro-esophageal reflux disease without esophagitis Category: Medical Code(s): K21.9 - Gastro-esophageal reflux disease without esophagitis (6) Amyloidosis: Status: Acute Qualifiers: Amyloidosis type: unspecified amyloidosis Qualified Code(s): E85.9 - Amyloidosis, unspecified Category: Medical Code(s): E85.9 - Amyloidosis, unspecified Plan 80-year-old presents with SOB, RANDOLPH, lower extremity swelling for 7 days. Patient has past medical history of amyloidosis, hypertension, recent small bowel obstruction admission, anemia, CAD, hypertension, hyperlipidemia, osteoporosis GERD. BNP 6270, CTA chest b/l effusions. Pt admitted for amyliodosis related CHF exacerbation. Overnight developed A-fib with RVR. Transition to oral rate controlling medications. Cardiology to evaluate today. Continues to require inpatient management. Problems addressed as follows: Amyloidosis related CHF exacerbation: ? Patient states she sees amyloidosis specialist Dr. Sidhu. States that has told her that she suffers from CHF related to amyloid diagnosis. - Discussed case with cardiology, echo obtained today showing diastolic dysfunction but preserved EF. Recommend continuing IV Lasix today, transition to oral tomorrow. Doing well with diltiazem, will increase dose to 240 mg tonight. -Wean oxygen as tolerated, goal sats greater than 90%. Continues to require 2 L A-fib with RVR: -Improved rate control today. Additional short acting dose of diltiazem this morning. Will continue metoprolol tartrate 25 mg twice daily. -Increase diltiazem extended release to 240 mg nightly -Continue Lasix IV 40 mg twice daily. See plan above. -BNP severely elevated at 6200. White count remains normal at 5.1. Hemoglobin 12. Kidney function normal with BUN 19, creatinine 1. Electrolytes acceptable potassium 3.7, magnesium low at 1.5, replacing with 2 g IV once today. repeat CBC, CMP, magnesium ordered for the morning. Hypertension: Hydralazine 10 mg IV every 6 hours as needed SBP greater than 160 Hyperlipidemia: Atorvastatin 40 mg p.o. nightly CAD: Admits to [place] 2022 and cared for at [facility]. Aspirin 81 mg p.o. daily, metoprolol 25 mg p.o. twice daily Chronic pain: Lyrica 50 mg p.o. nightly Anemia: Folic acid 1 mg p.o. daily PT and OT working with patient to evaluate for home health versus placement. Full code Cardiac diet Christoph
[2024-02-03] MEDS: ATORVASTATIN 40MG TABLET 40 MG PO (19:52)
[2024-02-03] MEDS: dilTIAZem ER 240MG CAPSULE 240 MG PO (19:52)
[2024-02-03] MEDS: PREGABALIN 50MG CAPSULE 50 MG PO (19:53)
[2024-02-04] VITALS (14 sets, daily range): BP systolic 103–144; BP diastolic 46–79; PULSE 79–110; RESP 14–19; TEMP 36.5–37.2; O2SAT 88–95; BMI 26.4; BMI 24.5
[2024-02-04] MEDS: PANTOPRAZOLE 40MG TABLET 40 MG PO (06:41)
[2024-02-04 07:25] LABS: Chloride 100 mmol/L (98-107); Potassium 3.8 mmoL/L (3.5-5.1); Sodium 134 mmol/L (136-145)
[2024-02-04 07:28] LABS: Anion Gap 1.8 mEq/L (5-15); Blood Urea Nitrogen 23 mg/dl (7-17); Calcium 8.9 mg/dl (8.4-10.2); Carbon Dioxide 36 mmol/L (22.0-30.0); Creatinine Clearance Estimated 43 mL/min (50-200); Estimated Glomerular Filt Rate 47 ml/min (>60); GFR (African American) 57 ML/MIN (>60); Glucose 87 mg/dl (74-100); Magnesium 2.2 mg/dl (1.6-2.3)
[2024-02-04 07:33] LABS: Basophils # 0.1 K/mm3 (0-0.2); Basophils % 2.7 % (0.1-2.0); Eosinophils # 0.4 K/mm3 (0.0-0.4); Eosinophils % 9.3 % (0.1-12.0); Hematocrit 37.3 % (37.0-47.0); Hemoglobin 12.5 g/dL (12.2-16.2); Lymphocytes # 0.9 K/mm3 (0.7-4.5); Lymphocytes % 21.9 % (10-50); Mean Corpuscular HGB Conc 33.6 g/dL (31.8-35.4); Mean Corpuscular Hemoglobin 34.5 pg (27.0-31.2); Mean Corpuscular Volume 102.6 fl (81-99); Mean Platelet Volume 9.3 fl (7.4-10.4); Monocytes # 0.4 K/mm3 (0.1-1.0); Monocytes % 9.7 % (1.7-9.3); Neutrophils # 2.3 K/mm3 (1.8-7.8); Neutrophils % 56.4 % (37.0-80.0); Platelet Count 205 K/mm3 (142-424); Red Blood Count 3.64 M/mm3 (4.20-5.40); Red Cell Distribution Width 19.1 % (11.5-17.5); White Blood Count 4.1 K/mm3 (4.8-10.8)
[2024-02-04] MEDS: ASPIRIN 81MG CHEWABLE TABLET 81 MG PO (08:28)
[2024-02-04] MEDS: FOLIC ACID 1MG TABLET 2 MG PO (08:28)
[2024-02-04] MEDS: ENOXAPARIN 80MG/0.8ML SYRINGE 70 MG SUBCUT (08:28)
[2024-02-04] MEDS: DOCUSATE SODIUM 100 MG CAPSULE 300 MG PO ×2 (08:28→21:20)
[2024-02-04] MEDS: METOPROLOL TARTRATE 25MG TABLET 25 MG PO ×2 (08:28→21:21)
[2024-02-04] MEDS: FUROSEMIDE 40MG/4ML VIAL 40 MG IV ×2 (08:29→17:16)
[2024-02-04] MEDS: ACETAMINOPHEN 325MG TAB 650 MG PO ×2 (08:40→17:21)
[2024-02-04] MEDS: PREGABALIN 100MG CAPSULE 100 MG PO ×2 (08:40→21:21)
[2024-02-04] MEDS: POLYETHYLENE GLYCOL 3350 17 GM PACKET PO (09:29)
--- NOTE | 2024-02-04 10:22 | SW/DCPLANNER ---
Addendum entered by Estella Victoria 02/04/24 11:55: [facility] could accept and they will start next week. Betty Cid Original Note: I spoke w/ this patient regarding plans once medically stable for discharge. PT/OT evaluated patient and recommended home health services at time of discharge. Patient is agreeable to home health services and prefers to use [facility]. Patient has used [facility] in the past. Patient information/order will be faxed to [facility] once ready for discharge. Discharge date is unknown at this time. CM will continue to follow up.
--- NOTE | 2024-02-04 10:53 | P.DS_ITS ---
General Admission date:: 02/01/24 Discharge date: 02/05/24 HPI HPI HPI: 80-year-old presents with SOB, RANDOLPH, lower extremity swelling for 7 days. Patient has past medical history of amyloidosis, hypertension, recent small bowel obstruction admission(01/25 to 01/28), anemia, CAD, hypertension, hyperlipidemia, osteoporosis GERD. Patient for brought to hospital by daughter for shortness of breath evaluation. Patient desat to 70% on room air in emergency room. Patient's O2 saturations increased to 90% on 2 L nasal cannula. Admits to nausea and loose bowel movements in past 24 hours. Also has a rattly cough that started today. Patient and patient's daughter state that lower extremity swelling has gotten worse since Saturday. Denies fevers, chills, known sick contacts, recent travel, chest pain, abdominal pain, history of lung problems. Patient has known diagnosis of amyloidosis and is taking care of by Dr. Sidhu at [facility]. Also states her amyloidosis was diagnosed with a blood test done at . 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 Admits to [place] 2022 cared for at [facility].BNP 6270, CTA chest b/l effusions. Both lactic acid and patient's procalcitonin normal at time of admission assessment by myself. Hospital Course Hospital Course Hospital Course: 80-year-old presents with SOB, RANDOLPH, lower extremity swelling for 7 days. Patient has past medical history of amyloidosis, hypertension, recent small aleksandra wel obstruction admission, anemia, CAD, hypertension, hyperlipidemia, osteoporosis GERD. BNP 6270, CTA chest b/l effusions. Pt admitted for amyliodosis related CHF exacerbation. Treated for A-fib. Cardiology consulted to assist with care. Showed improvement during admission. Able to wean oxygen to room air with diuresis. Given her improvement in rate control, plan was to discharge her home on Saturday, she had a vasovagal episode when going to the bathroom. Was monitored for an additional 24 hours. Did well with no further episodes. On oral regimen for rate control. Plan to discharge home with follow-up with cardiology as an outpatient. Problems addressed as follows: Amyloidosis related CHF exacerbation: A-fib with RVR: Hypertension: ? Patient sees amyloidosis specialist Dr. Sidhu. States that has told her that she suffers from CHF related to amyloid diagnosis. Discussed case with cardiology, echo showing diastolic dysfunction but preserved EF. Continue diltiazem at increased dosage of 240 mg nightly. Lasix IV during admission, wean to oral dose at discharge. Vasovagal event day before discharge. Rapid response was called. Patient had a vasovagal event upon sitting on the toilet. No hanna loss of consciousness. Improved with laying back in bed. Did not require any significant intervention other than just monitoring. Improved mentation by the afternoon and back to baseline function. Weaned to room air. No further events. Patient at baseline mentation on morning of discharge. BNP of note was severely elevated on admission at 6200. Patient breathing better and on oxygen with sats in the 90s. White count remains normal at 3.7, hemoglobin 11.5. Kidney function normal with BUN 25, creatinine 1.2. Electrolytes acceptable potassium 3.8, magnesium normal at 1.9. Hyperlipidemia: Atorvastatin 40 mg p.o. nightly CAD: Admits to [place] 2022 and cared for at [facility]. Aspirin 81 mg p.o. daily, metoprolol 25 mg p.o. twice daily Chronic pain: Lyrica 50 mg p.o. nightly Anemia: Hemoglobin normal at 13 today, continue folic acid 1 mg p.o. daily PT and OT working with patient, recommend home health. Total time spent on discharge 36 minutes in counseling, documentation, chart review, and direct care with patient. Exam Data for Last 24 hours Vital signs and Labs for Last 24 Hours: Temp Pulse Resp BP Pulse Ox O2 Del Method O2 Flow Rate 98 F 79 19 123/79 88 L Room Air 2 02/04/24 07:39 02/04/24 07:39 02/04/24 07:39 02/04/24 07:39 02/04/24 10:00 02/04/24 10:00 02/04/24 09:00 FiO2 28 02/02/24 18:29 Laboratory Results - last 24 hr 02/04/24 06:52: WBC 4.1 L, RBC 3.64 L, Hgb 12.5, Hct 37.3, MCV 102.6 H, MCH 34.5 H, MCHC 33.6, RDW 19.1 H, Plt Count 205, MPV 9.3, Neut % (Auto) 56.4, Lymph % (Auto) 21.9, [place] % (Auto) 9.7 H, Eos % (Auto) 9.3, Baso % (Auto) 2.7 H, Neut # (Auto) 2.3, Lymph # (Auto) 0.9, [place] # (Auto) 0.4, Eos # (Auto) 0.4, Baso # (Auto) 0.1, Sodium 134 L, Potassium 3.8, Chloride 100, Carbon Dioxide 36 H, Anion Gap 1.8 L, BUN 23 H, Creatinine 1.10 H, Estimated Creat Clear 43, Estimated GFR 47 L, Est GFR ( Amer) 57 L, Glucose 87, Calcium 8.9, Magnesium 2.2 D I & O for Last 24 hours: Intake & Output 02/01/24 02/02/24 02/03/24 02/04/24 23:59 23:59 23:59 23:59 Intake Total 1229.667 / 4661.770 9217 / 2100 560 / 560 Output Total 2800 / 3600 1300 / 1300 900 / 900 Balance -1570.333 / -1870.333 600 / 800 -340 / -340 Weight 68.039 kg 71.849 kg 71.849 kg 66.723 kg Constitutional Constitutional: no acute distress, average body habitus, chronically ill appearing and cooperative *Routine HEENT Exam Head: Present normocephalic Eye: Present EOMI and PERRL ENT: Present mucous membranes moist *Routine Neck Exam Neck: Present supple; Absent lymphadenopathy *Routine Respiratory Exam Respiratory: Present CTA bilaterally; Absent rhonchi, wheezes or crackles *Routine Cardiovascular Exam Cardiovascular: Present irregular rhythm Comments: Rate controlled *Routine Abdominal Exam Abdominal: Present soft and normoactive bowel sounds; Absent tenderness *Routine Rectal Exam Patient deferred: visual exam *Routine Exam Patient deferred: external exam *Routine Extremities Exam Extremities: Present edema (1+ legs bilaterally); Absent cyanosis or clubbing *Routine Skin Exam Skin: Present warm; Absent rash *Routine Neurological Exam Neurological: Present alert, oriented X3 and moving all extremities; Absent altered mental status Routine Psychiatric Exam Psychiatric: Present normal affect Results Data Completed and Pending Labs on day of discharge: Labs from last 24 hours 02/04/24 06:52 WBC 4.1 L RBC 3.64 L Hgb 12.5 Hct 37.3 MCV 102.6 H MCH 34.5 H MCHC 33.6 RDW 19.1 H Plt Count 205 MPV 9.3 Neut % (Auto) 56.4 Lymph % (Auto) 21.9 [place] % (Auto) 9.7 H Eos % (Auto) 9.3 Baso % (Auto) 2.7 H Neut # (Auto) 2.3 Lymph # (Auto) 0.9 [place] # (Auto) 0.4 Eos # (Auto) 0.4 Baso # (Auto) 0.1 Sodium 134 L Potassium 3.8 Chloride 100 Carbon Dioxide 36 H Anion Gap 1.8 L BUN 23 H Creatinine 1.10 H Estimated Creat Clear 43 Estimated GFR 47 L Est GFR ( Amer) 57 L Glucose 87 Calcium 8.9 Magnesium 2.2 D DS: Diagnosis Discharge Diagnosis (1) Atrial fibrillation with RVR: Status: Acute Code(s): I48.91 - Unspecified atrial fibrillation (2) Acute on chronic heart failure with preserved ejection fraction (HFpEF): Status: Acute Code(s): I50.33 - Acute on chronic diastolic (congestive) heart failure (3) HTN (hypertension), benign: Status: Acute Code(s): I10 - Essential (primary) hypertension (4) HLD (hyperlipidemia): Status: Acute Code(s): E78.5 - Hyperlipidemia, unspecified Qualifiers: Hyperlipidemia type: mixed hyperlipidemia Qualified Code(s): E78.2 - Mixed hyperlipidemia (5) GERD (gastroesophageal reflux disease): Status: Acute Code(s): K21.9 - Gastro-esophageal reflux disease without esophagitis Qualifiers: Esophagitis presence: esophagitis presence not specified Qualified Code(s): K21.9 - Gastro-esophageal reflux disease without esophagitis (6) Amyloidosis: Status: Acute Code(s): E85.9 - Amyloidosis, unspecified Qualifiers: Amyloidosis type: unspecified amyloidosis Qualified Code(s): E85.9 - Amyloidosis, unspecified Meds Home Medications and Allergies Home Medications ?Medication ?Instructions ?Recorded ?Confirmed ?Type aspirin 81 mg chewable tablet 81 mg PO DAILY 04/11/21 02/01/24 History multivitamin 1 each PO HS 04/11/21 02/01/24 History methotrexate sodium 2.5 mg tablet 20 mg PO WEEKLY 01/22/22 02/01/24 History cetirizine 10 mg tablet (Allergy 10 mg PO DAILYP PRN Allergy 07/19/22 02/01/24 History Relief (cetirizine)) Symptoms pregabalin 50 mg capsule 50 mg PO HS 01/21/23 02/01/24 History denosumab 60 mg/mL subcutaneous 60 mg SQ [id number] 05/10/23 02/01/24 History syringe folic acid 1 mg tablet 2 mg PO DAILY 10/07/23 02/01/24 History metoprolol tartrate 25 mg tablet 25 mg PO BID 10/16/23 02/01/24 History albuterol sulfate 90 mcg/actuation 2 puff inhalation Q4HP PRN 01/26/24 02/01/24 History aerosol inhaler shortness of breath or wheezing atorvastatin 40 mg tablet 40 mg PO HS 01/26/24 02/01/24 History calcium carbonate 1 tab PO DAILY 01/26/24 02/01/24 History pantoprazole 40 mg tablet,delayed 40 mg PO AM 01/26/24 02/01/24 History release (Protonix) polysaccharide iron complex 180 mg 180 mg PO DAILY 01/26/24 02/01/24 History iron capsule (Pro Fe) pregabalin 100 mg capsule 100 mg PO BID 01/26/24 02/01/24 History apixaban 5 mg tablet (Eliquis) 5 mg PO BID 30 days #60 tabs 02/05/24 Rx diltiazem HCl 240 mg 240 mg PO HS 30 days #30 caps 02/05/24 Rx capsule,extended release 24 hr furosemide 40 mg tablet 40 mg PO DAILY 30 days #30 tabs 02/05/24 Rx New Prescriptions to Start Prescriptions: apixaban [Eliquis] Karl Burkett diltiazem HCl Karl Burkett furosemide Karl Burkett Allergies Allergy/AdvReac Type Severity Reaction Status Date / Time loratadine (From Claritin) Allergy Intermediate Rash Verified 01/25/24 23:16 Sulfa (Sulfonamide Allergy Intermediate rash/swelli Verified 01/25/24 23:16 Antibiotics) ng sulfamethoxazole (From Allergy Intermediate rash/swelli Verified 01/25/24 23:16 Bactrim) ng trimethoprim (From Bactrim) Allergy Intermediate rash/swelli Verified 01/25/24 23:16 ng nitrofurantoin (From AdvReac Hives Verified 01/25/24 23:16 Macrobid) Discharge Plan Disposition Patient Disposition: Home Health Service Condition: Fair Discharge Order Discharge Orders: Discharge Order (Routine); Ordered 02/05/24 Ordered By: Karl Burkett Follow up Plan Follow up with: Geeta Esteban APRN [Primary Care Provider] - 02/21/24 11:30 am Kirk Meyers MD [Staff Physician] - 02/26/24 2:15 pm Prescriptions/Medication Reconciliation: New Eliquis 5 mg Tablet 5 mg PO BID 30 Days Qty: 60 0RF furosemide 40 mg Tablet 40 mg PO DAILY 30 Days Qty: 30 0RF diltiazem HCl 240 mg Capsule,Extended Release 24hr 240 mg PO HS 30 Days Qty: 30 0RF Continued methotrexate sodium 2.5 mg tablet 20 mg PO WEEKLY Rx Instructions: Pt to take 6 tablets at one time weekly on cetirizine [Allergy Relief (cetirizine)] 10 mg tablet 10 mg PO DAILYP PRN (Reason: Allergy Symptoms) folic acid 1 mg tablet 2 mg PO DAILY metoprolol tartrate 25 mg tablet 25 mg PO BID Patient Comments: TAKE 1 TABLET BY MOUTH TWICE DAILY pregabalin 50 mg capsule 50 mg PO HS multivitamin 1 EACH tablet 1 each PO HS aspirin 81 MG tablet,chewable 81 mg PO DAILY denosumab 60 mg/mL syringe 60 mg SQ [id number] pregabalin 100 mg capsule 100 mg PO BID Patient Comments: TAKE 1 CAPSULE BY MOUTH TWICE DAILY Pro Fe 180 mg iron capsule 180 mg PO DAILY Patient Comments: TAKE 1 CAPSULE BY MOUTH ONCE DAILY atorvastatin 40 mg tablet 40 mg PO HS pantoprazole [Protonix] 40 mg tablet,delayed release (DR/EC) 40 mg PO AM Rx Instructions: TAKE 1 TABLET BY MOUTH ONCE DAILY FOR GERD calcium carbonate 600 mg calcium (1.5 gram) Tablet,Chewable 1 tab PO DAILY albuterol sulfate 90 mcg/actuation HFA aerosol inhaler 2 puff inhalation Q4HP PRN (Reason: shortness of breath or wheezing) Discontinued diltiazem HCl 180 mg capsule,extended release 24hr 180 mg PO HS Problem Reconciliation Problems Reviewed?: Yes Patient Discharge Instructions ACTIVITY: Continue current activity DIET: continue same diet Patient Instructions: DI for Heart Failure Print Language: Uz[place] Providers Primary Care Provider: Esteban,Geeta Admit Provider: Pierre Ohara Attending Provider: Pierre Ohara
--- NOTE | 2024-02-04 11:53 | ECG_ITS ---
APPROVED REPORT Exam: Resting ECG HR:93 bpm ECG Measurements Heart Rate 93 AXES QRSd 105 QRS 9 QT 386 T 60 QTc 437 Conclusion ATRIAL FIBRILLATION INCOMPLETE RIGHT BUNDLE BRANCH BLOCK [90+ ms QRS DURATION, TERMINAL R IN V1/V2, 40+ ms S IN I/aVL/V4/V5/V6] MODERATE ST DEPRESSION [0.05+ mV ST DEPRESSION] ABNORMAL ECG UNCONFIRMED REPORT Electronically signed by : Harjit Hernandez MD 02/04/2024 14:35:32
--- NOTE | 2024-02-04 13:25 | P.PN_ITS ---
Subjective Subjective Date: 02/04/24 Time: 10:00 Interval history: Stable overnight. Remains in A-fib but rate controlled. No peripheral edema. SOA resolved. RR called this morning for vagal response while having large BM. She recovered without complication. Exam Data for Last 24 hours Vital signs and Labs for Last 24 Hours: Temp Pulse Resp BP Pulse Ox O2 Del Method O2 Flow Rate 98 F 110 H 19 114/67 88 L Nasal Cannula 1 02/04/24 07:39 02/04/24 08:00 02/04/24 07:39 02/04/24 12:00 02/04/24 10:00 02/04/24 11:00 02/04/24 11:00 FiO2 28 02/02/24 18:29 Laboratory Results - last 24 hr 02/04/24 06:52: WBC 4.1 L, RBC 3.64 L, Hgb 12.5, Hct 37.3, MCV 102.6 H, MCH 34.5 H, MCHC 33.6, RDW 19.1 H, Plt Count 205, MPV 9.3, Neut % (Auto) 56.4, Lymph % (Auto) 21.9, [place] % (Auto) 9.7 H, Eos % (Auto) 9.3, Baso % (Auto) 2.7 H, Neut # (Auto) 2.3, Lymph # (Auto) 0.9, [place] # (Auto) 0.4, Eos # (Auto) 0.4, Baso # ( Auto) 0.1, Sodium 134 L, Potassium 3.8, Chloride 100, Carbon Dioxide 36 H, Anion Gap 1.8 L, BUN 23 H, Creatinine 1.10 H, Estimated Creat Clear 43, Estimated GFR 47 L, Est GFR ( Amer) 57 L, Glucose 87, Calcium 8.9, Magnesium 2.2 D I & O for Last 24 hours: Intake & Output 02/01/24 02/02/24 02/03/24 02/04/24 23:59 23:59 23:59 23:59 Intake Total 1229.667 / 9626.898 8803 / 2100 560 / 560 Output Total 2800 / 3600 1300 / 1300 900 / 900 Balance -1570.333 / -1870.333 600 / 800 -340 / -340 Weight 150 lb 158 lb 6.4 oz 158 lb 6.399 oz 147 lb 1.6 oz Constitutional Constitutional: no acute distress and cooperative *Routine HEENT Exam Eye: Present PERRL *Routine Respiratory Exam Respiratory: Present CTA bilaterally; Absent accessory muscle use, wheezes or crackles *Routine Cardiovascular Exam Cardiovascular: Present RRR, Normal S1 and Normal S2; Absent murmur, gallop or rubs *Routine Abdominal Exam Abdominal: Present soft; Absent tenderness *Routine Extremities Exam Extremities: Present pulses intact; Absent cyanosis or edema *Routine Skin Exam Skin: Present intact; Absent erythema or wounds *Routine Neurological Exam Neurological: Present alert and oriented X3 Routine Psychiatric Exam Psychiatric: Present cooperative Progress Note: A&P Assessment and plan (1) Atrial fibrillation with RVR: Status: Acute (2) Acute on chronic heart failure with preserved ejection fraction (HFpEF): Status: Acute (3) HTN (hypertension), benign: Status: Acute (4) HLD (hyperlipidemia): Status: Acute (5) GERD (gastroesophageal reflux disease): Status: Acute (6) Amyloidosis: Status: Acute Assessment and Plan Assessment and Plan for All Diagnoses:: HFpEF, 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, was 3-4 on arrival - known dx, followed by , intolerant to Vindamax and on no HF meds - diuresed here - ECHO shows EF 65%, IVSD 1.5cm, Grade 3 DD, Mod RV Dilation, Mod MR/TR - will add Farxiga and Lasix at discharge - discussed daily weights with family - consider pt for newest amyloid therapy PAF, RVR - new dx on admission - stable here on BB and CCB - CHADS-VASC = 5, pt agreeable to Eliquis 5mg BID - home with 2 week monitor - office f/u 1-2 weeks, consider DCCV Vasovagal Syncope - during BM while admitted - recovered without incident - pt/family educated CV stable for DC home with above med changes. Recommend 2 week live nuclear monitoring technician and close outpaient f/u in our office. If she can see her typical [facility] GLAZIER at [facility] by then that is ok as well.
--- NOTE | 2024-02-04 13:44 | DIET.NUTRFU ---
Notified during rounds, no BM since admit. Meds added
[2024-02-04] MEDS: MULTIVITAMIN TABLET 1 EACH PO (17:16)
--- NOTE | 2024-02-04 17:43 | PC.NURSE ---
pt a &ox4 resting in chair. pt weaned to ra from 1lnc and has tolerated well. miralax given per mar, resulting in bm. while on the bedside, tech alerted this rn to pt becoming unresponsive. this rn attempted to arouse pt, with no response. rapid called due to sudden change in pt condition. was assumed that pt experienced vagal episode. pt recovered well, becoming responsive, vss, fsbs 109. pt and family state that this is not an unusual occurrence for the pt. see rapid response flowsheet. pt remained afib on tele. voids per purewick. lasix given with adequate output. see i&o. pt treated twice this shift with tylenol for lower extremity pain. no needs at this time. call light within reach.
--- NOTE | 2024-02-04 19:33 | EXP.ACUTE.PN ---
Subjective *Date: 02/04/24 *Time: 22:36 Interval history: Patient initially feeling well on rounds this morning. Denies chest pain or shortness of breath. After rounds unfortunately had an episode where she became very weak and almost passed out. Episode occurred while having a bowel movement. She had just worked with therapy and did well with no issue. Suspect she had a vasovagal episode while having bowel movement. Was able to wean to room air maintain sats in the 90s. Blood pressure improved after resting. Tolerating p.o. intake. Had multiple bowel movements with her episode. Had not had a bowel movement since Saturday. Afebrile. Returned back to baseline mentation. Overall well. Will continue to monitor Medical Exam Vital signs and Labs for Last 24 Hours: Vital Signs Temp Pulse Pulse Resp BP Pulse Ox O2 Del Method 02/04/24 19:00 Room Air 02/04/24 17:00 Room Air 02/04/24 16:00 98.1 F 110 H 19 144/63 H 92 L Room Air 02/04/24 16:00 100 H 02/04/24 15:00 Room Air 02/04/24 14:00 92 L Room Air 02/04/24 13:00 Room Air 02/04/24 12:00 97.8 F 101 H 19 103/47 L 94 L Nasal Cannula 02/04/24 12:00 114/67 02/04/24 11:57 90 02/04/24 11:55 105/46 L 02/04/24 11:50 103/57 L 02/04/24 11:00 Nasal Cannula 02/04/24 10:00 88 L Room Air 02/04/24 09:00 Nasal Cannula 02/04/24 08:00 110 H 02/04/24 08:00 93 L Nasal Cannula 02/04/24 07:41 91 L Room Air 02/04/24 07:39 98 F 79 19 123/79 94 L Nasal Cannula 02/04/24 06:44 Nasal Cannula 02/04/24 05:00 Nasal Cannula 02/04/24 04:00 85 02/04/24 04:00 98.9 F 109 H 14 128/73 95 Nasal Cannula 02/04/24 03:00 Nasal Cannula 02/04/24 01:00 Nasal Cannula 02/04/24 00:00 80 02/04/24 00:00 98.6 F 90 14 113/46 L 94 L Nasal Cannula 02/03/24 23:00 Nasal Cannula 02/03/24 21:00 Nasal Cannula 02/03/24 20:00 90 02/03/24 20:00 Nasal Cannula 02/03/24 19:49 98.2 F 100 H 16 131/72 96 Nasal Cannula O2 Flow Rate 02/04/24 19:00 02/04/24 17:00 02/04/24 16:00 02/04/24 16:00 02/04/24 15:00 02/04/24 14:00 02/04/24 13:00 02/04/24 12:00 1 02/04/24 12:00 02/04/24 11:57 02/04/24 11:55 02/04/24 11:50 02/04/24 11:00 1 02/04/24 10:00 02/04/24 09:00 2 02/04/24 08:00 02/04/24 08:00 1 02/04/24 07:41 02/04/24 07:39 2 02/04/24 06:44 2 02/04/24 05:00 2 02/04/24 04:00 02/04/24 04:00 2 02/04/24 03:00 2 02/04/24 01:00 1 02/04/24 00:00 02/04/24 00:00 2 02/03/24 23:00 1 02/03/24 21:00 1 02/03/24 20:00 02/03/24 20:00 1 02/03/24 19:49 2 Intake and Output 02/04/24 02/04/24 02/04/24 07:59 15:59 23:59 Intake Total 560 / 1400 420 / 1400 420 / 1400 Output Total 500 / 900 400 / 900 Balance 60 / 500 20 / 500 420 / 500 Intake: Intake, Oral Amount 560 / 1400 420 / 1400 420 / 1400 Output: Output, Urine Amount 500 / 900 400 / 900 Other: Number of Voids 0 Number of Unmeasured Voids 1 2 Number of Bowel Movements 1 Weight 71.849 kg 66.723 kg Patient Weight 02/04/24 23:59 Weight 66.723 kg Laboratory Results - last 24 hr 02/04/24 06:52: WBC 4.1 L, RBC 3.64 L, Hgb 12.5, Hct 37.3, MCV 102.6 H, MCH 34.5 H, MCHC 33.6, RDW 19.1 H, Plt Count 205, MPV 9.3, Neut % (Auto) 56.4, Lymph % (Auto) 21.9, [place] % (Auto) 9.7 H, Eos % (Auto) 9.3, Baso % (Auto) 2.7 H, Neut # (Auto) 2.3, Lymph # (Auto) 0.9, [place] # (Auto) 0.4, Eos # (Auto) 0.4, Baso # (Auto) 0.1, Sodium 134 L, Potassium 3.8, Chloride 100, Carbon Dioxide 36 H, Anion Gap 1.8 L, BUN 23 H, Creatinine 1.10 H, Estimated Creat Clear 43, Estimated GFR 47 L, Est GFR ( Amer) 57 L, Glucose 87, Calcium 8.9, Magnesium 2.2 D I & O for Labs for Last 24 Hours: Intake & Output 02/01/24 02/02/24 02/03/24 02/04/24 23:59 23:59 23:59 23:59 Intake Total 1229.667 / 1934.430 5249 / 2100 1400 / 1400 Output Total 2800 / 3600 1300 / 1300 900 / 900 Balance -1570.333 / -1870.333 600 / 800 500 / 500 Weight 68.039 kg 71.849 kg 71.849 kg 66.723 kg Constitutional: Present no acute distress, average body habitus, chronically ill appearing and cooperative Head: Present atraumatic and normocephalic ENT: Present normal exam Respiratory: Present normal respiratory effort; Absent rhonchi, wheezes or crackles Cardiac: Present Regular Rate Comment:: Irregularly irregular GI: Present soft and normal bowel sounds; Absent distention or tenderness Extremities: Present normal inspection, full ROM and edema (2+ to knees) Skin: Present intact; Absent erythema Neuro: Present Grossly Intact, alert, awake, oriented x 3 and moves all extremities Assessment and Plan *Assessment and plan (1) Atrial fibrillation with RVR: Status: Acute Category: Medical Code(s): I48.91 - Unspecified atrial fibrillation (2) Acute on chronic heart failure with preserved ejection fraction (HFpEF): Status: Acute Category: Medical Code(s): I50.33 - Acute on chronic diastolic (congestive) heart failure (3) HTN (hypertension), benign: Status: Acute Category: Medical Code(s): I10 - Essential (primary) hypertension (4) HLD (hyperlipidemia): Status: Acute Qualifiers: Hyperlipidemia type: mixed hyperlipidemia Qualified Code(s): E78.2 - Mixed hyperlipidemia Category: Medical Code(s): E78.5 - Hyperlipidemia, unspecified (5) GERD (gastroesophageal reflux disease): Status: Acute Qualifiers: Esophagitis presence: esophagitis presence not specified Qualified Code(s): K21.9 - Gastro-esophageal reflux disease without esophagitis Category: Medical Code(s): K21.9 - Gastro-esophageal reflux disease without esophagitis (6) Amyloidosis: Status: Acute Qualifiers: Amyloidosis type: unspecified amyloidosis Qualified Code(s): E85.9 - Amyloidosis, unspecified Category: Medical Code(s): E85.9 - Amyloidosis, unspecified Plan 80-year-old presents with SOB, RANDOLPH, lower extremity swelling for 7 days. Patient has past medical history of amyloidosis, hypertension, recent small bowel obstruction admission, anemia, CAD, hypertension, hyperlipidemia, osteoporosis GERD. BNP 6270, CTA chest b/l effusions. Pt admitted for amyliodosis related CHF exacerbation. A-fib doing better. Currently on oral regimen. Had vasovagal episode today. Will monitor for 24 more hours. If doing well in the morning, anticipate discharge tomorrow. Cardiology assisting with care. Problems addressed as follows: Amyloidosis related CHF exacerbation: A-fib with RVR: Hypertension: ? Patient sees [facility] amyloidosis specialist Dr. Sidhu. States that has told her that she suffers from CHF related to amyloid diagnosis. - Discussed case with cardiology, echo showing diastolic dysfunction but preserved EF. - Continue diltiazem at increased dosage of 240 mg nightly. Continue Lasix 40 mg IV twice daily today. Transition to oral Lasix in the morning --- Vasovagal event today. Rapid response was called. Patient had a vasovagal event upon sitting on the toilet. No hanna loss of consciousness. Improved with laying back in bed. Did not require any significant intervention other than just monitoring. Improved mentation by the afternoon and back to baseline function. Weaned to room air. Anticipate discharge tomorrow. -BNP severely elevated at 6200 on admission White count remains normal at 4.1. Hemoglobin 13. Kidney function normal with BUN 23, creatinine 1. Electrolytes acceptable potassium 3.8, magnesium low at 2.2. repeat CBC, CMP, magnesium ordered for the morning. Hyperlipidemia: Atorvastatin 40 mg p.o. nightly CAD: Admits to [place] 2022 and cared for at [facility]. Aspirin 81 mg p.o. daily, metoprolol 25 mg p.o. twice daily Chronic pain: Lyrica 50 mg p.o. nightly Anemia: Hemoglobin normal at 13 today, continue folic acid 1 mg p.o. daily PT and OT working with patient to evaluate for home health versus placement. Recommend home health. Full code Cardiac diet Lovenox
[2024-02-04] MEDS: PREGABALIN 50MG CAPSULE 50 MG PO (21:21)
[2024-02-04] MEDS: ATORVASTATIN 40MG TABLET 40 MG PO (21:21)
[2024-02-04] MEDS: APIXABAN 5MG TABLET 5 MG PO (21:21)
[2024-02-04] MEDS: dilTIAZem ER 240MG CAPSULE 240 MG PO (21:21)
[2024-02-05] VITALS: BP 102/65; PULSE 106; PULSE 80; RESP 16; TEMP 36.9; O2SAT 94
[2024-02-05 02:00] VITALS: BP 94/59; PULSE 80; RESP 16; TEMP 37.1; O2SAT 95; BMI 24.5
[2024-02-05 04:00] VITALS: BP 94/59; PULSE 80; PULSE 90; RESP 16; TEMP 37.1; O2SAT 95; BMI 24.5
--- NOTE | 2024-02-05 05:26 | PC.NURSE ---
The vitals I entered at 2 on accident were meant for 4.
[2024-02-05 07:16] LABS: Chloride 100 mmol/L (98-107)
[2024-02-05 07:17] LABS: Albumin Level 3.3 g/dl (3.5-5.0); Potassium 3.7 mmoL/L (3.5-5.1); Sodium 135 mmol/L (136-145)
[2024-02-05 07:19] LABS: Anion Gap 1.7 mEq/L (5-15); Blood Urea Nitrogen 25 mg/dl (7-17); Carbon Dioxide 37 mmol/L (22.0-30.0); Creatinine Clearance Estimated 37 mL/min (50-200); Estimated Glomerular Filt Rate 43 ml/min (>60); GFR (African American) 52 ML/MIN (>60)
[2024-02-05 07:20] LABS: Alanine Aminotransferase 19 U/L (12-78); Albumin/Globulin Ratio 1.4 (1.1-1.8); Alkaline Phosphatase 52 U/L (38-126); Aspartate Amino Transferase 42 U/L (14-36); Bilirubin,Total 0.5 mg/dl (0.2-1.3); Calcium 9.1 mg/dl (8.4-10.2); Globulin 2.4 g/dL (1.3-3.2); Glucose 90 mg/dl (74-100); Magnesium 1.9 mg/dl (1.6-2.3); Total Protein,Serum 5.7 g/dl (6.3-8.2)
[2024-02-05 07:28] VITALS: BP 133/71; PULSE 100; RESP 19; TEMP 36.9; O2SAT 92
[2024-02-05 07:55] LABS: Hematocrit 34.5 % (37.0-47.0); Hemoglobin 11.5 g/dL (12.2-16.2); Mean Corpuscular HGB Conc 33.3 g/dL (31.8-35.4); Mean Corpuscular Hemoglobin 33.5 pg (27.0-31.2); Mean Corpuscular Volume 100.6 fl (81-99); Mean Platelet Volume 11.8 fl (7.4-10.4); Neutrophils % 41.5 % (37.0-80.0); Platelet Count 186 K/mm3 (142-424); Red Blood Count 3.43 M/mm3 (4.20-5.40); Red Cell Distribution Width 17.4 % (11.5-17.5); White Blood Count 3.7 K/mm3 (4.8-10.8)
[2024-02-05 07:56] LABS: Basophils % 0.5 % (0.1-2.0); Eosinophils # 0.3 K/mm3 (0.0-0.4); Eosinophils % 8.4 % (0.1-12.0); Lymphocytes % 25.7 % (10-50); MANUAL DIFFERENTIAL MANUAL DIFFERENTIAL (MANUAL DIFF); Monocytes # 0.9 K/mm3 (0.1-1.0); Monocytes % 23.6 % (1.7-9.3); Neutrophils # 1.5 K/mm3 (1.8-7.8)
[2024-02-05 08:00] VITALS: PULSE 105
--- NOTE | 2024-02-05 08:39 | PC.NURSE ---
02/05/24 0700 Pt. alert and orientated x 4. Pt. had stable night. slept most of night. VSS. personal items and call luna in reach.
[2024-02-05] MEDS: DOCUSATE SODIUM 100 MG CAPSULE 300 MG PO (08:40)
[2024-02-05] MEDS: FUROSEMIDE 40 MG TABLET PO (08:40)
[2024-02-05] MEDS: PANTOPRAZOLE 40MG TABLET 40 MG PO (08:40)
[2024-02-05] MEDS: METOPROLOL TARTRATE 25MG TABLET 25 MG PO (08:40)
[2024-02-05] MEDS: FOLIC ACID 1MG TABLET 2 MG PO (08:40)
[2024-02-05] MEDS: ASPIRIN 81MG CHEWABLE TABLET 81 MG PO (08:41)
[2024-02-05] MEDS: APIXABAN 5MG TABLET 5 MG PO (08:41)
[2024-02-05] MEDS: ACETAMINOPHEN 325MG TAB 650 MG PO (08:43)
[2024-02-05] MEDS: PREGABALIN 100MG CAPSULE 100 MG PO (08:43)
[2024-02-05 09:55] LABS: Lymphocytes % 33 % (10-50); Macrocytosis 1+; Monocytes % 18 % (2-9); Neutrophils % 49 % (42-76); Platelet Estimate Normal; Total Cells Counted 100
[2024-02-05 15:00] VITALS: BMI 24.5
[2024-02-05 20:03] LABS: POC Glucose,Bedside 109 (70-110)
--- NOTE | 2024-02-06 10:06 | SW/DCPLANNER ---
Spoke with patient on the phone. Patient stated that she is doing good. Patient stated that she was very tired yesterday but better today. Patient stated that she is aware of her upcoming appointments. Patient stated that clinic pharmacy brought her new medicine to the room before she left. Patient stated that she has no questions or concerns at this time. Betty Cid
== END 2024-02-05 16:02 | disposition home health service (06) | DRG 291 ==
LOC: ER 17:11 → 2ND 19:34
PROVIDERS: Internal Medicine Adolescent Medicine; Admitting Provider Internal Medicine; Emergency Provider Student in an Organized Health Care Education/Training Program; PCP Nurse Practitioner Family; Visit Provider Internal Medicine
DX: I11.0 Hypertensive heart disease with heart failure (principal); I50.33 Acute on chronic diastolic (congestive) heart failure; I48.20 Chronic atrial fibrillation, unspecified; E85.4 Organ-limited amyloidosis; E78.5 Hyperlipidemia, unspecified; K21.9 Gastro-esophageal reflux disease without esophagitis; Z79.899 Other long term (current) drug therapy; I25.10 Atherosclerotic heart disease of native coronary artery without angina pectoris
CPT/HCPCS: 36415; 71275; 80048; 80053; 80061; 82803; 82962; 83735; 83880; 84145; 84484; 85007; 85025; 86140; 86803; 87389; 93005; 93270; 93306; 97162; 97165; 99285; J1650; J1940; J3475; Q9967

== ENCOUNTER 2024-02-09 17:09 | Outpatient (CLI) | payer MEDICARE, SELFPAY ==
[2024-02-09 17:22] LABS: Microscopic, Urine URINE MICROSCOPIC (MICROSCOPIC)
[2024-02-09 17:34] LABS: Appearance,Urine CLEAR (Clear); Bilirubin,Urine Negative (Negative); Blood, Urine Negative (Negative); Color,Urine YELLOW (Yellow); Glucose,Urine (UA) Negative (Negative); Ketones,Urine Negative (Negative); Leukocyte Esterase,Urine 1+ (Negative); Nitrate,Urine Negative (Negative); PH,Urine 6.5 (5.0-8.5); Protein,Urine Negative (Negative); Specific Gravity, Urine 1.015 (1.005-1.030); Urobilinogen,Urine 0.2 EU/dl (0.2)
== END 2024-02-09 23:59 | disposition home or self-care (01) ==
LOC: LAB.DROPOF 17:11
PROVIDERS: PCP Nurse Practitioner Family; Visit Provider Nurse Practitioner Family
DX: N39.0 Urinary tract infection, site not specified (principal); B96.1 Klebsiella pneumoniae [K. pneumoniae] as the cause of diseases classified elsewhere
CPT/HCPCS: 81001; 87086; 87088; 87186

== ENCOUNTER 2024-03-25 14:12 | Outpatient (CLI) | payer MEDICARE, SELFPAY ==
[2024-03-25 14:24] LABS: Basophils % 0.2 % (0.1-2.0); Eosinophils # 0.3 K/mm3 (0.0-0.4); Eosinophils % 4.7 % (0.1-12.0); Hematocrit 33.3 % (37.0-47.0); Lymphocytes # 1.2 K/mm3 (0.7-4.5); Lymphocytes % 20.1 % (10-50); Mean Corpuscular Hemoglobin 34.7 pg (27.0-31.2); Mean Platelet Volume 11.1 fl (7.4-10.4); Monocytes % 16.4 % (1.7-9.3); Neutrophils # 3.6 K/mm3 (1.8-7.8); Neutrophils % 58.4 % (37.0-80.0); Platelet Count 199 K/mm3 (142-424); Red Blood Count 3.17 M/mm3 (4.20-5.40); Red Cell Distribution Width 17.7 % (11.5-17.5); White Blood Count 6.2 K/mm3 (4.8-10.8)
[2024-03-25 14:44] LABS: Albumin Level 3.8 g/dl (3.5-5.0); Chloride 104 mmol/L (98-107); Sodium 135 mmol/L (136-145)
[2024-03-25 14:45] LABS: Potassium 4.4 mmoL/L (3.5-5.1)
[2024-03-25 14:47] LABS: Alanine Aminotransferase 21 U/L (12-78); Albumin/Globulin Ratio 2.1 (1.1-1.8); Anion Gap 12.4 mEq/L (5-15); Aspartate Amino Transferase 36 U/L (14-36); Blood Urea Nitrogen 19 mg/dl (7-17); Carbon Dioxide 23 mmol/L (22.0-30.0); Estimated Glomerular Filt Rate 68 ml/min (>60); GFR (African American) 83 ML/MIN (>60); Globulin 1.8 g/dL (1.3-3.2); Total Protein,Serum 5.6 g/dl (6.3-8.2)
[2024-03-25 14:48] LABS: Alkaline Phosphatase 57 U/L (38-126); Bilirubin,Total 0.4 mg/dl (0.2-1.3); Calcium 8.7 mg/dl (8.4-10.2); Chol/HDL Ratio 3.2 (1-3.5); Cholesterol 128 mg/dl (140-200); Glucose 132 mg/dl (74-100); HDL Cholesterol 40 mg/dl (40-60); Triglycerides 119 mg/dl (30-150); VLDL Cholesterol 24 mg/dL (0-40)
[2024-03-25 15:00] LABS: Direct LDL Cholesterol 54.93 mg/dL (100-129)
[2024-03-25 15:25] LABS: Ferritin 110 ng/ml (11.1-264)
== END 2024-03-25 23:59 | disposition home or self-care (01) ==
PROVIDERS: PCP Nurse Practitioner Family; Visit Provider Nurse Practitioner Family
DX: E78.2 Mixed hyperlipidemia (principal); I10 Essential (primary) hypertension; E78.5 Hyperlipidemia, unspecified; D50.0 Iron deficiency anemia secondary to blood loss (chronic)
CPT/HCPCS: 80053; 80061; 82728; 84443; 85025